=== PATIENT | female | born 1995 | race Caucasian/White ===

== ENCOUNTER → 2020-04-30 | Outpatient (CLI) | payer OTHER ==
--- NOTE | 2020-05-21 10:59 | REP ---
CHEST X-RAY CLINICAL: Cough. TECHNIQUE: PA and lateral. FINDINGS: Mediastinum and cardiac silhouette normal. Lung cruz clear. No consolidation, effusion, or pneumothorax. Skeletal structures are intact. IMPRESSION: Normal chest x-ray. No acute cardiopulmonary process or focal consolidation. MTDD
== END ==
LOC: M LAB 10:30
PROVIDERS: ATTEND Physician Assistant
DX: R05 Cough (principal)

== ENCOUNTER 2020-05-15 10:20 | Outpatient (RCR) | payer OTHER | END 2020-05-22 | LOC: M PT 10:20 | PROVIDERS: ATTEND Otolaryngology | DX: M26.609 Unspecified temporomandibular joint disorder, unspecified side (principal) ==

== ENCOUNTER 2020-06-13 11:15 | Outpatient (RCR) | payer OTHER | END 2020-06-22 | LOC: M PT 11:15 | PROVIDERS: ATTEND Otolaryngology | DX: M26.609 Unspecified temporomandibular joint disorder, unspecified side (principal) ==

== ENCOUNTER → 2020-06-27 | Outpatient (CLI) | payer OTHER ==
--- NOTE | 2020-06-27 10:56 | REP ---
INDICATION: EPIGASTRIC PAIN MAIN REG. COMPARISON: None. TECHNIQUE: Right upper quadrant sonography. FINDINGS: Scanning through the right upper quadrant of the abdomen demonstrates a normal sized, thin-walled gallbladder without evidence of stone or polyp. Common bile duct is normal measuring 0.4 cm in greatest diameter. No focal liver lesion is seen. Liver size is normal. No pancreatic abnormality is observed. No right renal abnormality is seen. There is no evidence of ascites. The right kidney measures 10.7 x 5.2 x 4.4 cm. IMPRESSION: Negative right upper quadrant sonography. <Electronically signed by Haroon Mendes > 06/27/20 [id number]
[2020-06-27 11:16] LABS: BASO # 0.1 10^3/uL (0.0-0.2); BASO % 0.4 % (0.0-1.0); EOS # 0.3 10^3/uL (0.0-0.5); EOS % 2.6 % (0.0-3.0); HEMOGLOBIN 12.2 g/dl (12.0-15.5); LYMPH # 2.3 10^3/uL (1.5-5.0); LYMPH % 19.7 % (24.0-44.0); MEAN CORPUSCULAR HEMOGLOBIN 26.3 pg (27.0-33.0); MEAN CORPUSCULAR HGB CONC 32.1 g/dl (32.0-36.5); MEAN CORPUSCULAR VOLUME 82.1 fl (80.0-96.0); MONO % 8.3 % (0.0-5.0); NEUTROPHILS % 68.7 % (36.0-66.0); PLATELET COUNT, AUTOMATED 407 10^3/uL (150-450); RED BLOOD COUNT 4.63 10^6/uL (4.00-5.40); WHITE BLOOD COUNT 11.7 10^3/uL (4.0-10.0)
[2020-06-27 11:58] LABS: ALBUMIN 3.4 GM/DL (3.2-5.2); ALT/SGPT 42 U/L (12-78); BILIRUBIN,DIRECT < 0.1 MG/DL (0.0-0.2); BILIRUBIN,TOTAL 0.3 MG/DL (0.2-1.0); BLOOD UREA NITROGEN 11 MG/DL (7-18); GLOMERULAR FILTRATION RATE > 60.0 (>60); TOTAL PROTEIN 7.3 GM/DL (6.4-8.2)
[2020-06-27 12:49] LABS: H PYLORI QUALITATIVE IgG NEGATIVE (NEGATIVE)
[2020-06-28 12:08] LABS: TISSUE TRANSGLUTAMINASE IgA <2 U/mL (0-3); UNITSIGA FOR GLIADIN IGA 5 units (0-19); UNITSIGG FOR GLIADIN IGG 3 units (0-19)
== END ==
LOC: M RAD 09:42
PROVIDERS: ATTEND Internal Medicine Gastroenterology
DX: R10.9 Unspecified abdominal pain (principal)

== ENCOUNTER 2020-07-10 10:30 | Outpatient (RCR) | payer OTHER ==
[2020-07-12] MEDS ORDERED: FAMO20TA PO (12:36)
[2020-07-12] MEDS ORDERED: METO1TAB7 PO (12:36)
[2020-07-12] MEDS ORDERED: QUET1TAB7 PO (12:36)
[2020-07-12] MEDS ORDERED: OMEP-221 PO (12:36)
[2020-07-12] MEDS ORDERED: SERT50TA29 PO (12:36)
[2020-07-12] MEDS ORDERED: DICY20TA11 PO (12:36)
[2020-07-12] MEDS ORDERED: IBUP-1114 PO (12:36)
== END 2020-07-22 ==
LOC: M PT 10:30
PROVIDERS: ATTEND Otolaryngology
DX: M26.609 Unspecified temporomandibular joint disorder, unspecified side (principal)

== ENCOUNTER → 2020-07-21 | Outpatient (CLI) | payer OTHER ==
[~2020-07-21] MED LIST: DICY20TA11 PO; FAMO20TA PO; IBUP-1114 PO; METO1TAB7 PO; OMEP-221 PO; QUET1TAB7 PO; SERT50TA29 PO
== END ==
LOC: M LABSMTC 09:40
PROVIDERS: ATTEND Anesthesiology
DX: Z01.812 Encounter for preprocedural laboratory examination (principal); Z20.828 Contact with and (suspected) exposure to other viral communicable diseases

== ENCOUNTER → 2020-07-21 | Outpatient (REF) | payer OTHER | LOC: M LAB REF 12:14 | PROVIDERS: ATTEND Internal Medicine Gastroenterology | DX: R19.4 Change in bowel habit (principal); R19.7 Diarrhea, unspecified ==

== ENCOUNTER 2020-07-25 10:00 | Outpatient (RCR) | payer OTHER | END 2020-08-22 | LOC: M PT 10:00 | PROVIDERS: ATTEND Otolaryngology | DX: M26.609 Unspecified temporomandibular joint disorder, unspecified side (principal) ==

== ENCOUNTER 2020-07-26 13:22 | Day surgery (SDC) | payer OTHER ==
[~2020-07-26] VITALS: Ht 165.1 cm; Wt 125.2 kg
[~2020-07-26 13:22] MED LIST changes: +NS 1,000 ML IV ONE
[2020-07-26] MEDS ORDERED: propofoL 200 MG/20 ML VIAL As Ordered ONE ×2 (15:13→15:19)
[2020-07-26] MEDS ORDERED: fentaNYL 100 MCG/2 ML INJECTION (J3010) As Ordered ONE (15:13)
[2020-07-26] MEDS ORDERED: LIDOCAINE 2% 100MG/5ML SDV (FOR ANES.) As Ordered ONE (15:13)
--- NOTE | 2020-07-26 15:25 | ROOR ---
Patient Name: Stephanie Saleh Procedure Date: 07/26/2020 3:09 PM Date of : 1995 Age: 25 Room: [facility] Gender: Female Note Status: Finalized Procedure: Upper GI endoscopy Indications: Epigastric abdominal pain Providers: Aba Sprague MD Referring MD: Nicol Sebastian Requesting Provider: Medicines: Monitored Anesthesia Care Complications: No immediate complications. Procedure: Pre-Anesthesia Assessment: - Prior to the procedure, a History and Physical was performed, and patient medications and allergies were reviewed. The patient is competent. The risks and benefits of the procedure and the sedation options and risks were discussed with the patient. All questions were answered and informed consent was obtained. Patient identification and proposed procedure were verified by the physician, the nurse and the anesthesiologist in the procedure room. Mental Status Examination: alert and oriented. Airway Examination: normal oropharyngeal airway and neck mobility. Respiratory Examination: clear to auscultation. CV Examination: normal. Prophylactic Antibiotics: The patient does not require prophylactic antibiotics. Prior Anticoagulants: The patient has taken no previous anticoagulant or antiplatelet agents. ASA Grade Assessment: II - A patient with mild systemic disease. After reviewing the risks and benefits, the patient was deemed in satisfactory condition to undergo the procedure. The anesthesia plan was to use monitored anesthesia care (MAC). Immediately prior to administration of medications, the patient was re-assessed for adequacy to receive sedatives. The heart rate, respiratory rate, oxygen saturations, blood pressure, adequacy of pulmonary ventilation, and response to care were monitored throughout the procedure. The physical status of the patient was re-assessed after the procedure. The Endoscope was introduced through the mouth, and advanced to the second part of duodenum. The upper GI endoscopy was accomplished without difficulty. The patient tolerated the procedure well. Findings: A small hiatal hernia was present. The Z-line was regular and was found 36 cm from the incisors. Scattered mild inflammation characterized by erythema and granularity was found in the gastric antrum. Biopsies were taken with a cold forceps for Helicobacter pylori testing. The duodenal bulb and second portion of the duodenum were normal. Biopsies for histology were taken with a cold forceps for evaluation of celiac disease. Impression: - Small hiatal hernia. - Z-line regular, 36 cm from the incisors. - Gastritis. Biopsied. - Normal duodenal bulb and second portion of the duodenum. Biopsied. Recommendation: - Patient has a contact number available for emergencies. The signs and symptoms of potential delayed complications were discussed with the patient. Return to normal activities tomorrow. Written discharge instructions were provided to the patient. - High fiber diet. - Continue present medications. - Await pathology results. - Follow an antireflux regimen. - Return to GI clinic in [facility] (address [address], [address], [place] [address]) in 4 -- 6 weeks. Please call GI clinic @ [phone] for apppointment date and time. - Return to primary care physician. Procedure Code(s): --- Professional --- 04671, Esophagogastroduodenoscopy, flexible, transoral; with biopsy, single or multiple Diagnosis Code(s): --- Professional --- K44.9, Diaphragmatic hernia without obstruction or gangrene K29.70, Gastritis, unspecified, without bleeding R10.13, Epigastric pain CPT copyright 2019 [employer]. All rights reserved. The codes documented in this report are preliminary and upon economics instructor review may be revised to meet current compliance requirements. Aba Sprague MD Aba Sprague MD 07/26/2020 3:25:09 PM Electronically signed by Aba Sprague MD Number of Addenda: 0 Note Initiated On: 07/26/2020 3:09 PM Estimated Blood Loss: Estimated blood loss: none.
[2020-07-26 15:50] VITALS: BP 124/60
== END 2020-07-26 16:05 | disposition home or self-care (01) ==
LOC: M OPP 13:22
PROVIDERS: ATTEND Internal Medicine Gastroenterology
DX: K44.9 Diaphragmatic hernia without obstruction or gangrene (principal); K29.70 Gastritis, unspecified, without bleeding; R10.13 Epigastric pain; G47.30 Sleep apnea, unspecified; Z79.899 Other long term (current) drug therapy; Z88.1 Allergy status to other antibiotic agents; Z88.8 Allergy status to other drugs, medicaments and biological substances; Z91.040 Latex allergy status; Z91.048 Other nonmedicinal substance allergy status
CPT/HCPCS: 43239; 88305; J3010

== ENCOUNTER → 2020-10-13 | Outpatient (CLI) | payer OTHER ==
[~2020-10-13] MED LIST changes: +FERR325T82 PO; -NS 1,000 ML IV ONE; +PANT40TA29 PO; +PROAAER10 INH; -QUET1TAB7 PO; +QUET25TA3 PO; +ZOLO100T PO
== END ==
LOC: M LABSMTC 10:06
PROVIDERS: ATTEND Anesthesiology
DX: Z01.818 Encounter for other preprocedural examination (principal); Z11.52 Encounter for screening for COVID-19

== ENCOUNTER 2020-10-18 09:30 | Day surgery (SDC) | payer OTHER ==
[~2020-10-18] VITALS: Ht 165.1 cm; Wt 123.8 kg
[~2020-10-18 09:30] MED LIST changes: +LIDOCAINE 2% 100MG/5ML SDV (FOR ANES.) As Ordered ONE; +NS 1,000 ML IV ONE; +propofoL 200 MG/20 ML VIAL As Ordered ONE
--- OUTSIDE RECORDS SUMMARY | 2020-10-18 09:38 | CCD | Continuity of Care Document ---
Author Author [facility] Address [address] [place] [address] Phone Support Name Relationship Address Phone Jose Kramer PRS [address] [place] [address] Polly Sen PRS [address] [place] [address] John Islas PRS [address] [place] [address] [place] [address] Pola Meadows [place] [address] Pola Meadows PRS [address] [place] [address] Hiren Perez PRS [address] [place] [address] Nathalie Pace PRS [address] [place] [address] Verónica Sheriff PRS [address] [place] [address] Tad Menendez PRS [address] [place] [address] Amara Garcia PRS Unknown Unavailable Nicol Sebastian PRS [address] [place] [address] Darnell Herbert PRS [address] [place] [address] Kiersten Schulz PRS [address] [place] [address] [place] [address] Abi Daljit PRS [address] [place] [address] Niels Valdez PRS [address] [place] [address] Dora Jainbere PRS [address] [place] [address] Barrett Sparks PRS [address] [place] [address] Dmitriy Peraza PRS [address] [place] [address] [place] [address] Sravani Balderrama PRS [address] [place] [address] Niels Edward PRS [address] [place] [address] Daniela Burnham PRS [address] [place] [address] Ramirez Lopez PRS [address] [place] [address] Luis Duggan PRS [address] [place] [address] Allergies, Adverse Reactions, Alerts Allergen Type Severity Reaction Last Updated Verified Status cephalexin Allergy Moder ate Hives September 25, 2020 2:58pm Yes Active latex Allergy Moderate Rash September 25, 2020 2:58pm Yes Active ondansetron Allergy Mode rate Hives September 25, 2020 2:58pm Yes Active sulfamethoxazole Allergy Moderate Hives September 25, 2020 2:58pm Yes Active trimethoprim Allergy Mod erate Hives September 25, 2020 2:58pm Yes Active Medications Medication Status Dose Units Route Directions Qty Days Start Date End Date Instructions Famotidine Discontinued 20 MG PO 2 Times Per Day February 20, 2020 10:57am February 20, 2020 11:34am Metoprolol Succinate Discontinued 50 MG PO daily February 20, 2020 10:58am February 20, 2020 11:34am Triamcinolone Acetonide Discontinued 1 APPLIC TOP 2 Times Per D ay February 20, 2020 10:5 9am March 25, 2020 8:10am Acetaminophen (Tylenol) 325 mg tablet Discontinued 325 MG PO Four Times a Day 60 February 20, 2020 11:24am March 25, 2020 8:08am Famotidine Discontinued 20 MG PO 2 Times Per Day February 20, 2020 11:34am February 26, 2020 4:14pm Metoprolol Succinate Discontinued 50 MG PO daily February 20, 2020 11:34am May 28, 2020 6:00am Norgestimate-Ethinyl Estradiol (Ortho Tr i-Cyclen (28)) 0.18/0.215/0.25 mg-35 mcg (28) tablet Discontinued 1 TAB PO daily March 11, 2020 11:47am April 15, 2020 9:24am Quetiapine Discontinued 25 MG PO .Q hs March 12, 2020 1:59pm June 13, 2020 12:26pm Sertraline Discontinued 50 MG PO daily March 28, 2020 7:45am April 24, 2020 2:36pm Budesonide-Formoterol Discontinued 2 PUFFS IH 2 Times Per Day March 28, 2020 7:4 6am April 24, 2020 2:36pm Promethazine Discontinued 50 MG PO Three times a day May 23, 2020 8:27am July 01, 2020 9:13pm may make s leepy Omeprazole Discontinued 20 MG PO 2 Times Per Day July 01, 2020 9:13am July 25, 2020 10:00am Sertraline Discontinued 100 MG PO At Bedtime July 04, 2020 11:41am July 04, 2020 12:44pm Quetiapine Discontinued 50 MG PO At Bedtime July 04, 2020 11:42am July 04, 2020 11:46am Quetiapine Discontinued 50 MG PO At Bedtime July 04, 2020 11:45am August 09, 2020 6:35pm Sertraline Discontinued 100 MG PO At Bedtime July 04, 2020 12:44pm July 31, 2020 9:19am Pantoprazole Active 40 MG PO daily July 25, 2020 10:02am Drospirenone-Ethinyl Estradiol (Ruma (28)) 3-0.03 mg tablet Discontinued 1 TAB PO daily August 27, 2020 10:45am September 23, 2020 6:43pm Metronidazole (Flagyl) 500 mg tablet Discontinued 500 MG PO Three times a day September 05, 2020 11:45am September 23, 2020 6:45pm Metoclopramide Hcl (Reglan) 10 mg tablet Discontinued 10 MG PO b efore meals September 05, 2020 11:52am September 23, 2020 6:43pm administer 30 minutes before meals Meclizine Discontinued 25 MG PO daily September 03, 2020 10:36am September 11, 2020 4:44pm Albuterol Sulfate Active 1 INH IH Four Times a Day 8.5 September 25, 2020 3:24pm Nitrofurantoin Monohyd/M-Cryst (Macrobid) 100 mg capsu le Discontinued 100 MG PO Every 12 Hours 14 7 March 02, 2020 1:32pm March 11 10:57am must administer with a meal/food Promethazine Discontinued 25 MG PO Three times a day March 02, 2020 1:34pm March 25, 2020 8:09am Norgestimate-Ethinyl Estradiol (Ortho Tr i-Cyclen (28)) 0.18/0.215/0.25 mg-35 mcg (28) tablet Discontinued 1 TAB PO daily May 18, 2020 1:35am June 11, 2020 3:31pm Vancomycin Discontinued 125 MG PO Every 6 hours 40 10 May 18, 2020 11:46am June 10, 2020 8:37am Lactobacillus Combination No.8 (Adult Pr obiotic) 3 billion cell capsule Discontinued 3000 MMU CE LLS PO Once Per Day 14 14 May 18, 2020 11:54am July 01, 2020 9:13pm administer with a meal Famotidine Discontinued 20 MG PO 2 Times Per Day July 01, 2020 9:08pm July 25, 2020 10:01am Dicyclomine Active 20 MG PO Once Per Day July 01, 2020 9:08pm may take 2 times daily Quetiapine Discontinued 25 MG PO At Bedtime July 01, 2020 9:11pm July 04, 2020 11:43am Sertraline Discontinued 50 MG PO At Bedtime July 01, 2020 9:11pm July 04, 2020 11:42am Hydroxyzine Hcl Discontinued 25 MG PO 2 Times Per Day August 09, 2020 6:34pm August 20, 2020 9:09am Doxylamine Succinate (Unisom (Doxylamine)) 25 mg Table t Discontinued 25 MG PO Three times a day August 09, 2020 6:34pm August 272020 10:28am Sertraline Discontinued 100 MG PO daily August 22, 2020 6:55am September 16, 2020 6:07pm Budesonide-Formoterol Discontinued 2 PUFFS IH 2 Times Per Day August 22, 2020 6:55am September 23, 2020 6:41pm Metoprolol Succinate Discontinued 50 MG PO daily August 22, 2020 6:55am September 03, 2020 11:13am Ciprofloxacin Hcl Discontinued 250 MG PO 2 Times Per Day August 30, 2020 8: 57pm September 02, 2020 4:11pm Ferrous Sulfate (Feosol) 325 mg (65 mg iron) tablet Active 325 MG PO 2 Times Per Day August 30, 2020 8:57pm Ascorbic Acid (Vitamin C) Discontinued 500 MG PO 2 Times Per Day August 30, 2020 8 :57pm September 25, 2020 3:21pm with iron Ciprofloxacin Hcl Discontinued 500 MG PO Every 12 Hours September 10, 2020 12:54am September 23, 2020 6:41pm Lactobacillus Combination No.4 Discontinue d 3000 MMU CELLS PO 2 Times Per Day September 10, 2020 12:56am September 23, 2020 6:45pm administer with a meal Sertraline Active 100 MG PO Once Per Day September 23, 2020 6:39pm Buspirone Discontinued 7 .5 MG PO 2 Times Per Day February 22, 2020 10:18am July 01, 2020 9:13pm Desogestrel-Ethinyl Estradiol (Isibloom) 0.15-0.03 mg tablet Discontinued 1 TAB PO daily February 22, 2020 10:18am March 11, 2020 11:47am Venlafaxine Discontinued 150 MG PO Every Morning February 22, 2020 10:18am March 25, 2020 8:09am Omeprazole Discontinued 20 MG PO daily February 26, 2020 4:14pm June 21, 2020 10:51am Amoxicillin-Pot Clavulanate (Augmentin) 875-125 mg tab let Discontinued 1 TAB PO 2 Times Per Day March 23, 2020 3:04pm May 172019 4:42pm Benzonatate (Tessalon Perles) 100 mg capsule Discontinued 100 MG PO Three times a day March 23, 2020 3:04pm May 17, 2020 4:42pm Miconazole Nitrate (Monistat 7) 2 % cream Discontinued 1 APPFUL PV Once Per Day 45 March 23, 2020 3:06pm May 17, 2020 4:43pm apply vaginally for discomfort Norgestimate-Ethinyl Estradiol (Ortho Tr i-Cyclen (28)) 0.18/0.215/0.25 mg-35 mcg (28) tablet Discontinued 1 TAB PO daily April 15, 2020 9:23am May 18, 2020 1:35am Budesonide-Formoterol Discontinued 2 PUFFS IH 2 Times Per Day April 24, 2020 2:35pm June 10, 2020 8:36am Sertraline Discontinued 50 MG PO daily April 24, 2020 2:35pm July 01, 2020 9:11pm Lactobacillus Combination No.9 (Adult 50 Plus Probiotic) 4 billion cell capsule Discontinued 4000 MMU CE LLS PO 2 Times Per Day May 06, 2020 12:39pm May 17, 2020 4:43pm take wit h food Metoprolol Succinate Discontinued 50 MG PO daily May 28, 2020 5:59am August 22, 2020 6:55am Drospirenone-Ethinyl Estradiol Discontinue d 1 TAB PO daily June 11, 2020 3:31pm June 28, 2020 4:13pm Quetiapine Discontinued 25 MG PO .Q hs June 13, 2020 12:26pm July 01, 2020 9:11pm Omeprazole Discontinued 20 MG PO daily June 21, 2020 10:51am July 01, 2020 9:14am Sertraline Discontinued 100 MG PO At Bedtime July 31, 2020 9:19am August 19, 2020 8:31am Budesonide-Formoterol Discontinued 2 PUFFS IH 2 Times Per Day August 06, 2020 8:13am August 06, 2020 8:27am Budesonide-Formoterol Discontinued 2 PUFFS IH 2 Times Per Day August 06, 2020 8:27am August 22, 2020 6:55am Pyridoxine (Vitamin B6) (Vitamin B-6) 25 mg tablet Discontinued 25 MG PO daily August 06, 2020 9:27am August 20, 2020 9:10am Take one tab by mouth daily. Sertraline Discontinued 100 MG PO daily August 19, 2020 8:31am August 22, 2020 6:55am Metoprolol Succinate Discontinued 50 MG PO daily September 03, 2020 11:13am September 16, 2020 6:07pm Sennosides-Docusate Sodium (Senna With D ocusate Sodium) 8.6-50 mg tablet Active 1 TAB-CAP PO daily September 11, 2020 2:13pm Sertraline Discontinued 100 MG PO daily September 16, 2020 6:06pm September 23, 2020 6:46pm Metoprolol Succinate Active 50 MG PO daily September 16, 2020 6:07pm Problems Active Problems Medical Problem Onset Date Status Daytime sleepiness Act krzysztof Rash of finger Active Insomnia Active PTSD (post-traumatic stress disorder) Active Metrorrhagia Active Morbid obesity Active Acute renal failure Ac tive Anxiety Active Depression Active Diarrhea Active Diarrhea Active Glucose intolerance Ac tive Snoring Active Elevated serum creatinine Active Anembryonic Active GERD (gastroesophageal reflux disease) Active Abdominal pain Active HTN (hypertension) Act krzysztof Nausea Active Numbness and tingling of both legs Active Hepatomegaly Active Inactive/Resolved Problems Medical Problem Onset Date Status RUQ abdominal pain Res olved UTI (urinary tract infection) Resolved Hemorrhagic cystitis R esolved C. difficile diarrhea Resolved URI (upper respiratory infection) Resolved Chronic pain of both ears Resolved Dysuria Resolved Persistent cough for 3 weeks or longer Resolved Wax in ear Resolved Acute viral pharyngitis Resolved Procedures Procedure Date Performed Status Escherichia coli Shiga Toxins EIA Fe bruary 2020 completed Salmonella/Shigella Screen September 23, 2020 completed Campylobacter Culture September 23, 2020 completed Escherichia coli 0157 Culture ua ry 2020 completed Urine Culture September 23, 2020 completed Influenza-Like Illness (PCR) uar y 2020 completed September 23, 2020 com pleted Urine Culture September 09, 2020 completed Urine Culture August 30, 2020 completed Influenza-Like Illness (PCR) Decembe r 2019 completed August 22, 2020 co mpleted Dilitation and Curettage w/Suction (Not Applicable) August 22, 2020 10:30am completed US OB Ultrasound <14 weeks August 09, 2020 8:39pm completed US OB Transvaginal August 09 8:40pm completed Urine Culture August 09, 2020 completed US OB Ultrasound <14 weeks August 14, 2020 9:16am completed US OB Ultrasound <14 weeks August 21, 2020 10:17am completed US OB Transvaginal August 21 10:17am completed US OB Transvaginal August 03 6:58pm completed US Abd single organ/quadrant Decembe r 2019 7:26pm completed US OB Ultrasound <14 weeks August 03, 2020 6:59pm completed Urine Culture August 03, 2020 completed July 30, [address] Abd/pel w/ contrast July 01, 2020 9:16pm completed Xray Chest One View July 01 9:19pm completed Blood Culture July 01, 2020 completed Urine Culture July 01, 2020 completed SARS-CoV-2 (PCR) Interpretation [facility] [address] Abd/pel w/ contrast April 7:09pm completed Urine Culture May 18, 2020 completed Respiratory Panel (PCR) May 182019 completed Gastrointestinal Tract Panel (PCR) S eptember 2019 completed Xray Chest 2 view PA/LAT March 25, 2020 8:03am completed Urine Culture March 25, 2020 completed Streptococcus Rapid Screen March 13, 2020 completed Streptococcus Rapid Screen March 13, 2020 completed Urine Culture March 11, 2020 completed US Pelvic complete March 12, 2020 12:21pm completed Urine Culture March 05, [address] Abd/pel w/ contrast March 02 12:30pm completed Urine Culture March 02, 2020 completed US Abdomen complete February 28, 2020 7:27am completed Relevant Diagnostic Tests and/or Laboratory Data Laboratory Results Test Date/Time Result Interpretation Reference Range Result Comment Performing Site White Blood Count September 23, 2020 8:05p m 10.2 10e3/uL 4.45-10.71 [facility], [address] [place] [address] White Blood Count September 09, 2020 11:50pm 10.6 10e3/uL 4.45-10.71 [facility], [address] [place] [address] White Blood Count September 05, 2020 12:03pm 10.3 10e3/uL 4.45-10.71 [facility], [address] [place] [address] White Blood Count August 30, 2020 8:15pm 11.3 10e3/uL 4.45-10.71 [facility], [address] [place] [address] White Blood Count August 09 0 7:35pm 9.9 10e3/uL 4.45-10.71 [facility], [address] [place] [address] White Blood Count August 14 0 9:31am 9.8 10e3/uL 4.45-10.71 [facility], [address] [place] [address] White Blood Count August 03 0 2:35pm 8.6 10e3/uL 4.45-10.71 [facility], [address] [place] [address] White Blood Count July 01, 2020 9:40p m 11.2 10e3/uL 4.45-10.71 [facility], [address] [place] [address] White Blood Count May 18 6:17am 9.3 10e3/uL 4.45-10.71 [facility], [address] [place] [id number] White Blood Count March 25, 2020 8:11am 10.8 10e3/uL 4.45-10.71 [facility], [address] [place] [address] White Blood Count March 11, 2020 12:14pm 11.3 10e3/uL 4.45-10.71 [facility], [address] [place] [address] White Blood Count March 02, 2020 11:00am 10.3 10e3/uL 4.45-10.71 [facility], [address] [place] [address] White Blood Count February 26, 2020 10:02am 9.8 10e3/uL 4.45-10.71 [facility], [address] [place] [address] White Blood Count February 20, 2020 8:35am 8.8 10e3/uL 4.45-10.71 [facility], [address] [place] [address] 26005 Red Blood Count September 23, 2020 8:05pm 4.67 10e6/uL 4.20-5.40 [facility], [address] [place] [address]791 Red Blood Count September 09, 2020 11:50pm 4.49 10e6/uL 4.20-5.40 [facility], [address] [place] [address] 20720 Red Blood Count September 05, 2020 12:03pm 4.38 10e6/uL 4.20-5.40 [facility], [address] [place] [address] 44069 Red Blood Count August 30, 2020 8:15pm 4.26 10e6/uL 4.20-5.40 [facility], [address] [place] [address] 19779 Red Blood Count August 09, 2020 7:35pm 4.49 10e6/uL 4.20-5.40 [facility], [address] [place] [address] 91080 Red Blood Count August 14, 2020 9:31am 4.57 10e6/uL 4.20-5.40 [facility], [address] [place] [address] 25871 Red Blood Count August 03, 2020 2:35pm 4.47 10e6/uL 4.20-5.40 [facility], [address] [place] [address] 14692 Red Blood Count July 01, 2020 9:40pm 4.51 10e6/uL 4.20-5.40 [facility], [address] [place] [address] 48727 Red Blood Count May 18, 2020 6:17a m 4.10 10e6/uL 4.20-5.40 [facility], [address] [place] [address] [id number] Red Blood Count March 25, 2020 8:11am 4.25 10e6/uL 4.20-5.40 [facility], [address] [place] [address] 88190 Red Blood Count March 11, 2020 12:14pm 4.58 10e6/uL 4.20-5.40 [facility], [address] [place] [address] [id number] Red Blood Count March 02, 2020 11:00am 4.52 10e6/uL 4.20-5.40 [facility], [address] [place] [address]19 Red Blood Count February 26, 2020 10:02am 4.84 10e6/uL 4.20-5.40 [facility], [address] [place] [address] [id number] Red Blood Count February 20, 2020 8:35am 5.02 10e6/uL 4.20-5.40 [facility], [address] [place] [address] [id number] Hemoglobin September 23, 2020 8:05pm 11.9 g/dL 10.7-15.4 [facility], [address] [place] [address] 95443 Hemoglobin September 09, 2020 11:50pm 11.4 g/dL 10.7-15.4 [facility], [address] [place] [address] 24706 Hemoglobin September 05, 2020 12:03pm 10.8 g/dL 10.7-15.4 [facility], [address] [place] [address] 33454 Hemoglobin August 30, 2020 8:15pm 10.5 g/dL 10.7-15.4 [facility], [address] [place] [address] 55795 Hemoglobin August 09, 2020 7:35pm 11.4 g/dL 10.7-15.4 [facility], [address] [place] [address] 87845 Hemoglobin August 14, 2020 9:31am 11.4 g/dL 10.7-15.4 [facility], [address] [place] [address] 07693 Hemoglobin August 03, 2020 2:35pm 11.5 g/dL 10.7-15.4 [facility], [address] [place] [address] 96505 Hemoglobin July 01, 2020 9:40pm 11.8 g/dL 10.7-15.4 [facility], [address] [place] [address] 50816 Hemoglobin May 18, 2020 6:17am 10.9 g/dL 10.7-15.4 [facility], [address] [place] [address] 58250 Hemoglobin March 25, 2020 8:11am 11.5 g/dL 10.7-15.4 [facility], [address] [place] [address] 47944 Hemoglobin March 11, 2020 12:14pm 12.4 g/dL 10.7-15.4 [facility], [address] [place] [address] 44737 Hemoglobin March 02, 2020 11:00am 12.1 g/dL 10.7-15.4 [facility], [address] [place] [address] [id number] Hemoglobin February 26, 2020 10:02am 13.0 g/dL 10.7-15.4 [facility], [address] [place] [address] 26170 Hemoglobin February 20, 2020 8:35am 13.4 g/dL 10.7-15.4 [facility], [address] [place] [address] 43854 Hematocrit September 23, 2020 8:05pm 37.8 % 37-47 [facility], [address] [place] [address] 88801 Hematocrit September 09, 2020 11:50pm 35.9 % 37-47 [facility], [address] [place] [address] 27930 Hematocrit September 05, 2020 12:03pm 34.8 % 37-47 [facility], [address] [place] [address] 33893 Hematocrit August 30, 2020 8:15pm 34.4 % 37-47 [facility], [address] [place] [address] 93335 Hematocrit August 09, 2020 7:35pm 36.1 % 37-47 [facility], [address] [place] [address] 04675 Hematocrit August 14, 2020 9:31am 36.3 % 37-47 [facility], [address] [place] [address] 10151 Hematocrit August 03, 2020 2:35pm 36.1 % 37-47 [facility], [address] [place] [address] 59572 Hematocrit July 01, 2020 9:40pm 36.6 % 37-47 [facility], [address] [place] [address] 41858 Hematocrit May 18, 2020 6:17am 34.1 % 37-47 [facility], [address] [place] [address] 44703 Hematocrit March 25, 2020 8:11am 34.7 % 37-47 [facility], [address] [place] [address] 51735 Hematocrit March 11, 2020 12:14pm 37.2 % 37-47 [facility], [address] [place] [address] 64643 Hematocrit March 02, 2020 11:00am 36.9 % 37-47 [facility], [address] [place] [address] 67689 Hematocrit February 26, 2020 10:02am 39.4 % 37-47 [facility], [address] [place] [address] 70701 Hematocrit February 20, 2020 8:35am 41.0 % 37-47 [facility], [address] [place] [address] 58698 Mean Corpuscular Volume September 8:05pm [address] [facility], [address] [place] [address] 91824 Mean Corpuscular Volume August 11:50pm 80.0 fl 80-96 [facility], [address] [place] [address] 46648 Mean Corpuscular Volume August 12:03pm 79.5 fl 80-96 [facility], [address] [place] [address] 93284 Mean Corpuscular Volume August 30, 2020 8:15pm 80.8 fl 80-[address] [place] [address] LABORATORY, [address] [place] [address] 64834 Mean Corpuscular Volume July h2019 7:35pm 80.4 fl 80-[address] [place] [address] LABORATORY, [address] [place] [address] 99351 Mean Corpuscular Volume July d2019 9:31am 79.4 fl 80-[address] [place] [address] LABORATORY, [address] [place] [address] 72144 Mean Corpuscular Volume July h2019 2:35pm 80.8 fl 80-[address] [place] [address] LABORATORY, [address] [place] [address] 00232 Mean Corpuscular Volume June 9:40pm 81.2 fl 80-[address] [place] [address] LABORATORY, [address] [place] [address] 86936 Mean Corpuscular Volume May 182019 6:17am 83.2 fl 80-96 [facility], [address] [place] [address] 09634 Mean Corpuscular Volume March 25, 2020 8:11am 81.6 fl 80-96 [facility], [address] [place] [address] 03821 Mean Corpuscular Volume March 11, 020 12:14pm 81.2 fl 80-96 [facility], [address] [place] [address] 73737 Mean Corpuscular Volume March 02, 020 11:00am 81.6 fl 80-[address] [place] [address] LABORATORY, [address] [place] [address] 37392 Mean Corpuscular Volume February 25 10:02am 81.4 fl 80-[address] [place] [address] LABORATORY, [address] [place] [address] 26225 Mean Corpuscular Volume February 19 8:35am 81.7 fl 80-96 [facility], [address] [place] [address] 32459 Mean Corpuscular Hemoglobin September 23, 2020 8:05pm 25.5 pg 27-31 [facility], [address] [place] [address] 74663 Mean Corpuscular Hemoglobin September 09, 2020 11:50pm 25.4 pg 27-31 [facility], [address] [place] [address] 44022 Mean Corpuscular Hemoglobin September 05, 2020 12:03pm 24.7 pg 27-31 [facility], [address] [place] [address] 18353 Mean Corpuscular Hemoglobin August 30, 2020 8:15pm 24.6 pg 27-31 [facility], [address] [place] [address] 91855 Mean Corpuscular Hemoglobin August 09, 2020 7:35pm 25.4 pg 27-31 [facility], [address] [place] [address] 20166 Mean Corpuscular Hemoglobin August 14, 2020 9:31am 24.9 pg 27-31 [facility], [address] [place] [address] 12955 Mean Corpuscular Hemoglobin August 03, 2020 2:35pm 25.7 pg 27-31 [facility], [address] [place] [address] 29873 Mean Corpuscular Hemoglobin July 01, 2020 9:40pm 26.2 pg 27-31 [facility], [address] [place] [address] 62801 Mean Corpuscular Hemoglobin 2019 6:17am 26.6 pg 27-31 [facility], [address] [place] [address] 24122 Mean Corpuscular Hemoglobin March 252019 8:11am 27.1 pg 27-31 [facility], [address] [place] [address] 55359 Mean Corpuscular Hemoglobin February 12:14pm 27.1 pg 27-31 [facility] [facility], [address] [place] [address] 68545 Mean Corpuscular Hemoglobin February 11:00am 26.8 pg 27-31 [facility], [address] [place] [address] 71522 Mean Corpuscular Hemoglobin February 10:02am 26.9 pg 27-31 [facility], [address] [place] [address] 78042 Mean Corpuscular Hemoglobin January 8:35am 26.7 pg 27-31 [facility], [address] [place] [address] 35742 Mean Corpuscular Hemoglobin Concent September 23, 2020 8:05pm 31.5 g/dl [address] [facility], [address] [place] [address] 32672 Mean Corpuscular Hemoglobin Concent September 09, 2020 11:50pm 31.8 g/dl [address] [facility], [address] [place] [address] 34928 Mean Corpuscular Hemoglobin Concent September 05, 2020 12:03pm 31.0 g/dl [address] [place], [place] [address], [address] [place] [address] 74191 Mean Corpuscular Hemoglobin Concent August 30, 2020 8:15pm 30.5 g/dl [address] [place] [address] LABORATORY, [address] [place] [address] 52897 Mean Corpuscular Hemoglobin Concent August 09, 2020 7:35pm 31.6 g/dl [address] [facility], [address] [place] [address] 41070 Mean Corpuscular Hemoglobin Concent August 14, 2020 9:31am 31.4 g/dl [address] [facility], [address] [place] [address] 55317 Mean Corpuscular Hemoglobin Concent August 03, 2020 2:35pm 31.9 g/dl [address] [facility], [address] [place] [address] 78181 Mean Corpuscular Hemoglobin Concent July 01, 2020 9:40pm 32.2 g/dl [address] [facility], [address] [place] [address] 21292 Mean Corpuscular Hemoglobin Concent May 18, 2020 6:17am 32.0 g/dl [address] [facility], [address] [place] [address] 10102 Mean Corpuscular Hemoglobin Concent March 25, 2020 8:11am 33.1 g/dl [address] [facility], [address] [place] [address] 48264 Mean Corpuscular Hemoglobin Concent March 11, 2020 12:14pm 33.3 g/dl [address] [facility], [address] [place] [address] 91332 Mean Corpuscular Hemoglobin Concent March 02, 2020 11:00am 32.8 g/dl [address] [place] [address] LABORATORY, [address] [place] [address] 77690 Mean Corpuscular Hemoglobin Concent February 26, 2020 10:02am 33.0 g/dl [address] [place] [address] LABORATORY, [address] [place] [address] 64979 Mean Corpuscular Hemoglobin Concent February 20, 2020 8:35am 32.7 g/dl [address] [place] [address] LABORATORY, [address] [place] [address] 27250 Red Cell Distribution Width September 23, 2020 8:05pm 16 % 11-15 [facility], [address] [place] [address] 35329 Red Cell Distribution Width September 09, 2020 11:50pm 16 % 11-15 [facility], [address] [place] [address] 37524 Red Cell Distribution Width September 05, 2020 12:03pm 16 % 11-15 [facility], [address] [place] [address] 54887 Red Cell Distribution Width August 30, 2020 8:15pm 15 % 11-15 [facility], [address] [place] [address] 72178 Red Cell Distribution Width August 09, 2020 7:35pm 14 % 11-15 [facility], [address] [place] [address] 39342 Red Cell Distribution Width August 14, 2020 9:31am 15 % 11-15 [facility], [address] [place] [address] 22069 Red Cell Distribution Width August 03, 2020 2:35pm 14 % 11-15 [facility], [address] [place] [address] 13208 Red Cell Distribution Width July 01, 2020 9:40pm 14 % 11-15 [facility], [address] [place] [address] 06833 Red Cell Distribution Width 2019 6:17am 14 % 11-15 [facility], [address] [place] [address] 94680 Red Cell Distribution Width March 252019 8:11am 15 % 11-15 [facility], [address] [place] [address] 83515 Red Cell Distribution Width February 12:14pm 15 % 11-15 [facility], [address] [place] [address] Red Cell Distribution Width February 11:00am 14 % 11-15 [facility], [address] [place] [address] Red Cell Distribution Width February 10:02am 14 % 11-15 [facility], [address] [place] [address] Red Cell Distribution Width January 8:35am 15 % 11-15 [facility], [address] [place] [address] Platelet Count September 23, 2020 8:05pm 404 10e3/ul 130-472 [facility], [address] [place] [address] Platelet Count September 09, 2020 11:50pm 392 10e3/ul 130-472 [facility], [address] [place] [address] Platelet Count September 05, 2020 12:03pm 417 10e3/ul 130-472 [facility], [address] [place] [address] 87849 Platelet Count August 30, 2020 8:15pm 422 10e3/ul 130-472 [facility], [address] [place] [address] Platelet Count August 09, 2020 7:35pm 423 10e3/ul 130-472 [facility], [address] [place] [address] Platelet Count August 14, 2020 9:31am 429 10e3/ul 130-472 [facility], [address] [place] [address] Platelet Count August 03, 2020 2:35pm 372 10e3/ul 130-472 [facility], [address] [place] [address] Platelet Count July 01, 2020 9:40pm 392 10e3/ul 130-472 [facility], [address] [place] [address] 32205 Platelet Count May 18, 2020 6:17am 332 10e3/ul 130-472 [facility], [address] [place] [address] 48565 Platelet Count March 25, 2020 8:11am 395 10e3/ul 130-472 [facility], [address] [place] [address] 93218 Platelet Count March 11, 2020 12:14pm 460 10e3/ul 130-472 [facility], [address] [place] [address] Platelet Count March 02, 2020 11:00am 410 10e3/ul 130-472 [facility], [address] [place] [address] 63908 Platelet Count February 26, 2020 10:02am 436 10e3/ul 130-472 [facility], [address] [place] [address] Platelet Count February 20, 2020 8:35am 479 10e3/ul 130-472 [facility], [address] [place] [address] 19963 Mean Platelet Volume September 23, 2 021 8:05pm 9.5 fl 9.1-13.1 [facility], [address] [place] [address] 71032 Mean Platelet Volume September 09, 2 021 11:50pm 8.6 fl 9.1-13.1 [facility], [address] [place] [address] Mean Platelet Volume September 05, 2 021 12:03pm 8.6 fl 9.1-13.1 [facility], [address] [place] [address] 23281 Mean Platelet Volume August 30 8:15pm 8.7 fl 9.1-13.1 [facility], [address] [place] [address] Mean Platelet Volume August 09, 2020 7:35pm 8.9 fl 9.1-13.1 [facility], [address] [place] [address] Mean Platelet Volume August 14, 2020 9:31am 8.9 fl 9.1-13.1 [facility], [address] [place] [address] 35357 Mean Platelet Volume August 03, 2020 2:35pm 9.0 fl 9.1-13.1 [facility], [address] [place] [address] Mean Platelet Volume July 01, 2 020 9:40pm 8.6 fl 9.1-13.1 [facility], [address] [place] [address] 22154 Mean Platelet Volume May 18, 2020 6:17am 8.6 fl 9.1-13.1 [facility], [address] [place] [address] 43748 Mean Platelet Volume March 25 0 8:11am 8.3 fl 9.1-13.1 [facility], [address] [place] [address] 53491 Mean Platelet Volume March 11, 2020 12:14pm 8.4 fl 9.1-13.1 [facility], [address] [place] [address] 22241 Mean Platelet Volume March 02, 2020 11:00am 8.6 fl 9.1-13.1 [facility], [address] [place] [address] 99639 Mean Platelet Volume February 26, 2020 10:02a m 8.7 fl 9.1-13.1 [facility], [address] [place] [address] 15014 Mean Platelet Volume February 20, 2020 8:35a m 8.7 fl 9.1-13.1 [facility], [address] [place] [address] 83577 Neutrophils (%) (Auto) September 23, 2020 8:05pm 67.0 % [address] [place] [address] LABORATORY, [address] [place] [address] 10020 Neutrophils (%) (Auto) September 09, 2020 11:50pm 66.3 % [address] [place] [address] LABORATORY, [address] [place] [address] 43420 Neutrophils (%) (Auto) September 05, 2020 12:03pm 74.5 % [address] [place] [address] LABORATORY, [address] [place] [address] 04051 Neutrophils (%) (Auto) August 30, 2020 8:15pm 69.3 % [address] [place] [address] LABORATORY, [address] [place] [address] 80354 Neutrophils (%) (Auto) July 7:35pm 71.3 % [address] [place] [address] LABORATORY, [address] [place] [address] 24309 Neutrophils (%) (Auto) July 9:31am 63.7 % [address] [place] [address] LABORATORY, [address] [place] [address] 87185 Neutrophils (%) (Auto) July 2:35pm 68.8 % [address] [place] [address] LABORATORY, [address] [place] [address] 15721 Neutrophils (%) (Auto) July 01, 2020 9:40pm 66.3 % [address] [place] [address] LABORATORY, [address] [place] [address] 48836 Neutrophils (%) (Auto) April 6:17am 66.1 % [address] [place] [address] LABORATORY, [address] [place] [address] 61578 Neutrophils (%) (Auto) March 25 8:11am 58.4 % [address] [place] [address] LABORATORY, [address] [place] [address] 76840 Neutrophils (%) (Auto) March 11 12:14pm 72.2 % [address] [place] [address] LABORATORY, [address] [place] [address] 33587 Neutrophils (%) (Auto) March 02 11:00am 65.4 % [address] [place] [address] LABORATORY, [address] [place] [address] 64654 Neutrophils (%) (Auto) February 25 0 10:02am 62.6 % [address] [place] [address] LABORATORY, [address] [place] [address] 24430 Neutrophils (%) (Auto) February 19 8:35am 62.4 % [address] [place] [address] LABORATORY, [address] [place] [address] 98399 Absolute Neutrophil September 23 8:05pm 6.8 # 1.7-7.6 [facility], [address] [place] [address] 81929 Absolute Neutrophil September 09 11:50pm 7.0 # 1.7-7.6 [facility], [address] [place] [address] 65110 Absolute Neutrophil September 05 12:03pm 7.7 # 1.7-7.6 [facility], [address] [place] [address] 92519 Absolute Neutrophil August 30 8:15pm 7.8 # 1.7-7.6 [facility], [address] [place] [address] 86469 Absolute Neutrophil August 09, 020 7:35pm 7.0 # 1.7-7.6 [facility], [address] [place] [address] 65618 Absolute Neutrophil August 14, 020 9:31am 6.2 # 1.7-7.6 [facility], [address] [place] [address] 71928 Absolute Neutrophil August 03, 2 020 2:35pm 5.9 # 1.7-7.6 [facility], [address] [place] [address] 04564 Absolute Neutrophil July 01 9:40pm 7.5 # 1.7-7.6 [facility], [address] [place] [address] 13606 Absolute Neutrophil May 18, 2020 6:17am 6.1 # 1.7-7.6 [facility], [address] [place] [address] 42834 Absolute Neutrophil March 25, 2020 8:11a m 6.3 # 1.7-7.6 [facility], [address] [place] [address] 77563 Absolute Neutrophil March 11, 2020 12:14p m 8.1 # 1.7-7.6 [facility], [address] [place] [address] 93442 Absolute Neutrophil March 02, 2020 11:00a m 6.7 # 1.7-7.6 [facility], [address] [place] [address] 11448 Absolute Neutrophil February 26, 2020 10:02am 6.1 # 1.7-7.6 [facility], [address] [place] [address] 35498 Absolute Neutrophil February 20, 2020 8:35am 5.5 # 1.7-7.6 [facility], [address] [place] [address] 30115 Lymphocytes (%) (Auto) September 23, 2020 8:05pm 23.3 % 14-46 [facility], [address] [place] [address] 26062 Lymphocytes (%) (Auto) September 09, 2020 11:50pm 23.0 % 14-46 [facility], [address] [place] [address] 52386 Lymphocytes (%) (Auto) September 05, 2020 12:03pm 17.6 % 14-46 [facility], [address] [place] [address] 52227 Lymphocytes (%) (Auto) August 30, 2020 8:15pm 20.7 % 1446 [facility], [address] [place] [address] 25918 Lymphocytes (%) (Auto) July 7:35pm 19.4 % 14-46 [facility], [address] [place] [address] 79968 Lymphocytes (%) (Auto) July 9:31am 25.9 % 14-46 [facility], [address] [place] [address] 50616 Lymphocytes (%) (Auto) July 2:35pm 20.2 % 14-46 [facility], [address] [place] [address] 70408 Lymphocytes (%) (Auto) July 01, 2020 9:40pm 21.4 % 14-46 [facility], [address] [place] [address] 33076 Lymphocytes (%) (Auto) April 6:17am 22.8 % 14-46 [facility], [address] [place] [address] 61389 Lymphocytes (%) (Auto) March 25 8:11am 30.4 % 14-46 [facility], [address] [place] [address] 95571 Lymphocytes (%) (Auto) March 11 12:14pm 19.0 % 1446 [facility], [address] [place] [address] 42317 Lymphocytes (%) (Auto) March 02 11:00am 23.6 % 14-46 [facility], [address] [place] [address] 22394 Lymphocytes (%) (Auto) February 25 10:02am 25.4 % 1446 [facility], [address] [place] [address] 85963 Lymphocytes (%) (Auto) February 19 8:35am 26.5 % 1446 [facility], [address] [place] [address] 86417 Lymphocytes # (Auto) September 23 8:05pm 2.4 # 0.6-4.6 [facility], [address] [place] [address] 21460 Lymphocytes # (Auto) September 09 11:50pm 2.4 # 0.6-4.6 [facility], [address] [place] [address] 95442 Lymphocytes # (Auto) September 05, 12:03pm 1.8 # 0.6-4.6 [facility], [address] [place] [address] 67511 Lymphocytes # (Auto) August 30 8:15pm 2.3 # 0.6-4.6 [facility], [address] [place] [address] 16623 Lymphocytes # (Auto) August 09, 2020 7:35pm 1.9 # 0.6-4.6 [facility], [address] [place] [address] 47467 Lymphocytes # (Auto) August 14, 2020 9:31am 2.5 # 0.6-4.6 [facility], [address] [place] [address] 36891 Lymphocytes # (Auto) August 03, 2020 2:35pm 1.7 # 0.6-4.6 [facility], [address] [place] [address] 08106 Lymphocytes # (Auto) July 01, 020 9:40pm 2.4 # 0.6-4.6 [facility], [address] [place] [address] 45809 Lymphocytes # (Auto) May 18, 2020 6:17am 2.1 # 0.6-4.6 [facility], [address] [place] [address] 52537 Lymphocytes # (Auto) March 25 0 8:11am 3.3 # 0.6-4.6 [facility], [address] [place] [address] 80082 Lymphocytes # (Auto) March 11, 2020 12:14pm 2.1 # 0.6-4.6 [facility], [address] [place] [address] 99469 Lymphocytes # (Auto) March 02, 2020 11:00am 2.4 # 0.6-4.6 [facility], [address] [place] [address] 00304 Lymphocytes # (Auto) February 26, 2020 10:02a m 2.5 # 0.6-4.6 [facility], [address] [place] [address] 73959 Lymphocytes # (Auto) February 20, 2020 8:35a m 2.3 # 0.6-4.6 [facility], [address] [place] [address] 58387 Monocytes (%) (Auto) September 23, 021 8:05pm 6.9 % 4-12 [facility], [address] [place] [address] 46984 Monocytes (%) (Auto) September 09, 021 11:50pm 7.1 % 4-12 [facility], [address] [place] [address] 79352 Monocytes (%) (Auto) September 05, 2 021 12:03pm 5.4 % 4-12 [facility], [address] [place] [address] 27254 Monocytes (%) (Auto) August 30 8:15pm 6.8 % 4-12 [facility], [address] [place] [address] 10981 Monocytes (%) (Auto) August 09, 2020 7:35pm 7.0 % 4-12 [facility], [address] [place] [address] 09948 Monocytes (%) (Auto) August 14, 2020 9:31am 6.9 % 4-12 [facility], [address] [place] [address] 20937 Monocytes (%) (Auto) August 03, 2020 2:35pm 8.3 % [address] LAB[facility]ORY, [address] [place] [address] 51352 Monocytes (%) (Auto) July 01 9:40pm 8.9 % [address] LAB[facility], [address] [place] [address] 50923 Monocytes (%) (Auto) May 18, 2020 6:17am 8.7 % [address] [place] [address] LABORATORY, [address] [place] [address] 35411 Monocytes (%) (Auto) March 25 0 8:11am 7.7 % [address] [place] [address] LABORATORY, [address] [place] [address] 21584 Monocytes (%) (Auto) March 11, 2020 12:14pm 5.5 % [address] [facility], [address] [place] [address] 65373 Monocytes (%) (Auto) March 02, 2020 11:00am 7.8 % [address] [place] [address] LABORATORY, [address] [place] [address] 92463 Monocytes (%) (Auto) February 26, 2020 10:02a m 8.2 % [address] [place] [address] LABORATORY, [address] [place] [address] 00291 Monocytes (%) (Auto) February 20, 2020 8:35a m 8.0 % [address] LAB[facility]ORY, [address] [place] [address] 93964 Monocytes # September 23, 2020 8:05pm 0.7 # 0.2-1.2 [facility], [address] [place] [address] 76275 Monocytes # September 09, 2020 11:50pm 0.8 # 0.2-1.2 [facility], [address] [place] [address] 85231 Monocytes # September 05, 2020 12:03pm 0.6 # 0.2-1.2 [facility], [address] [place] [address] 33989 Monocytes # August 30, 2020 8:15pm 0.8 # 0.2-1.2 [facility], [address] [place] [address] 12905 Monocytes # August 09, 2020 7:35pm 0.7 # 0.2-1.2 [facility], [address] [place] [address] 83309 Monocytes # August 14, 2020 9:31am 0.7 # 0.2-1.2 [facility], [address] [place] [address] 42658 Monocytes # August 03, 2020 2:35pm 0.7 # 0.2-1.2 [facility], [address] [place] [address] 20726 Monocytes # July 01, 2020 9:40pm 1.0 # 0.2-1.2 [facility], [address] [place] [address] 57386 Monocytes # May 18, 2020 6:17am 0.8 # 0.2-1.2 [facility], [address] [place] [address] 42306 Monocytes # March 25, 2020 8:11am 0.8 # 0.2-1.2 [facility], [address] [place] [address] 30058 Monocytes # March 11, 2020 12:14pm 0.6 # 0.2-1.2 [facility], [address] [place] [address] 11072 Monocytes # March 02, 2020 11:00am 0.8 # 0.2-1.2 [facility], [address] [place] [address] 82097 Monocytes # February 26, 2020 10:02am 0.8 # 0.2-1.2 [facility], [address] [place] [address] 45606 Monocytes # February 20, 2020 8:35am 0.7 # 0.2-1.2 [facility], [address] [place] [address] 30947 Eosinophils (%) (Auto) September 23, 2020 8:05pm 2.2 % 0-7 [facility], [address] [place] [address] 22849 Eosinophils (%) (Auto) September 09, 2020 11:50pm 2.9 % 0-7 [facility], [address] [place] [address] 41156 Eosinophils (%) (Auto) September 05, 2020 12:03pm 1.8 % 0-7 [facility], [address] [place] [address] 54763 Eosinophils (%) (Auto) August 30, 2020 8:15pm 2.4 % 0-7 [facility], [address] [place] [address] 19022 Eosinophils (%) (Auto) July 7:35pm 1.8 % 0-7 [facility], [address] [place] [address] 76346 Eosinophils (%) (Auto) July 9:31am 3.0 % 0-7 [facility], [address] [place] [address] 09029 Eosinophils (%) (Auto) July 2:35pm 2.2 % 0-7 [facility], [address] [place] [address] 97873 Eosinophils (%) (Auto) July 01, 2020 9:40pm 2.7 % 0-7 [facility], [address] [place] [address] 26895 Eosinophils (%) (Auto) April 6:17am 1.9 % 0-7 [facility], [address] [place] [address] 12243 Eosinophils (%) (Auto) March 25 8:11am 2.7 % 0-7 [facility], [address] [place] [address] 99040 Eosinophils (%) (Auto) March 11 12:14pm 2.5 % 0-7 [facility], [address] [place] [address] 86400 Eosinophils (%) (Auto) March 02 11:00am 2.4 % 0-7 [facility], [address] [place] [address] 23164 Eosinophils (%) (Auto) February 25 0 10:02am 3.1 % 0-7 [facility], [address] [place] [address] 63191 Eosinophils (%) (Auto) February 19 8:35am 2.6 % 0-7 [facility], [address] [place] [address] 09566 Absolute Eosinophils (CBC) September 23, 2020 8:05pm 0.2 # 0.0-0.5 [facility], [address] [place] [address] 00499 Absolute Eosinophils (CBC) August 232020 11:50pm 0.3 # 0.0-0.5 [facility], [address] [place] [address] Absolute Eosinophils (CBC) August 232020 12:03pm 0.2 # 0.0-0.5 [facility], [address] [place] [id number] Absolute Eosinophils (CBC) August 302020 8:15pm 0.3 # 0.0-0.5 [facility], [address] [place] [id number] Absolute Eosinophils (CBC) August 09, 2020 7:35pm 0.2 # 0.0-0.5 [facility], [address] [place] [address] Absolute Eosinophils (CBC) August 14, 2020 9:31am 0.3 # 0.0-0.5 [facility], [address] [place] [address] Absolute Eosinophils (CBC) August 03, 2020 2:35pm 0.2 # 0.0-0.5 [facility], [address] [place] [address] Absolute Eosinophils (CBC) July 01, 2020 9:40pm 0.3 # 0.0-0.5 [facility], [address] [place] [address] Absolute Eosinophils (CBC) May 18, 2020 6:17am 0.2 # 0.0-0.5 [facility], [address] [place] [address] Absolute Eosinophils (CBC) March 8:11am 0.3 # 0.0-0.5 [facility], [address] [place] [address] Absolute Eosinophils (CBC) February 12:14pm 0.3 # 0.0-0.5 [facility], [address] [place] [address] Absolute Eosinophils (CBC) February 11:00am 0.3 # 0.0-0.5 [facility], [address] [place] [address] Absolute Eosinophils (CBC) February 26, 2020 10:02am 0.3 # 0.0-0.5 [facility], [address] [place] [address] Absolute Eosinophils (CBC) January 8:35am 0.2 # 0.0-0.5 [facility], [address] [place] [id number] Basophils (%) (Auto) September 23 8:05pm 0.4 % 0.4-1.3 [facility], [address] [place] [id number] Basophils (%) (Auto) September 09 11:50pm 0.3 % 0.4-1.3 [facility], [address] [place] [address] 24468 Basophils (%) (Auto) September 05, 2 021 12:03pm 0.4 % 0.4-1.3 [facility], [address] [place] [address] 70251 Basophils (%) (Auto) August 30 8:15pm 0.4 % 0.4-1.3 [facility], [address] [place] [address] 42393 Basophils (%) (Auto) August 09, 2020 7:35pm 0.3 % 0.4-1.3 [facility], [address] [place] [address] 07737 Basophils (%) (Auto) August 14, 2020 9:31am 0.3 % 0.4-1.3 [facility], [address] [place] [address] 96150 Basophils (%) (Auto) August 03, 2020 2:35pm 0.3 % 0.4-1.3 [facility], [address] [place] [address] 88074 Basophils (%) (Auto) July 01, 020 9:40pm 0.4 % 0.4-1.3 [facility], [address] [place] [address] 16604 Basophils (%) (Auto) May 18, 2020 6:17am 0.3 % 0.4-1.3 [facility], [address] [place] [address] 28265 Basophils (%) (Auto) March 25 0 8:11am 0.5 % 0.4-1.3 [facility], [address] [place] [address] 17038 Basophils (%) (Auto) March 11, 2020 12:14pm 0.4 % 0.4-1.3 [facility], [address] [place] [address] 78919 Basophils (%) (Auto) March 02, 2020 11:00am 0.5 % 0.4-1.3 [facility], [address] [place] [address] 64442 Basophils (%) (Auto) February 26, 2020 10:02a m 0.4 % 0.4-1.3 [facility], [address] [place] [address] 55983 Basophils (%) (Auto) February 20, 2020 8:35a m 0.3 % 0.4-1.3 [facility], [address] [place] [address] 47126 Absolute Basophils (CBC) September 8:05pm 0.0 # 0.0-0.2 [facility], [address] [place] [address] 29398 Absolute Basophils (CBC) August 11:50pm 0.0 # 0.0-0.2 [facility], [address] [place] [address] 56364 Absolute Basophils (CBC) August 12:03pm 0.0 # 0.0-0.2 [facility], [address] [place] [address] 74462 Absolute Basophils (CBC) August 8:15pm 0.1 # 0.0-0.2 [facility], [address] [place] [address] 75065 Absolute Basophils (CBC) August 092019 7:35pm 0.0 # 0.0-0.2 [facility], [address] [place] [address] 20488 Absolute Basophils (CBC) August 142019 9:31am 0.0 # 0.0-0.2 [facility], [address] [place] [address] 08303 Absolute Basophils (CBC) August 032019 2:35pm 0.0 # 0.0-0.2 [facility], [address] [place] [address] 46845 Absolute Basophils (CBC) June 9:40pm 0.0 # 0.0-0.2 [facility], [address] [place] [address] 02112 Absolute Basophils (CBC) April 242019 6:17am 0.0 # 0.0-0.2 [facility], [address] [place] [address] 84424 Absolute Basophils (CBC) March 25, 2020 8:11am 0.1 # 0.0-0.2 [facility], [address] [place] [address] 72771 Absolute Basophils (CBC) March 11, 2020 12:14pm 0.0 # 0.0-0.2 [facility], [address] [place] [address] 18633 Absolute Basophils (CBC) March 02, 2020 11:00am 0.1 # 0.0-0.2 [facility], [address] [place] [address] 93900 Absolute Basophils (CBC) February 25 10:02am 0.0 # 0.0-0.2 [facility], [address] [place] [address] 99059 Absolute Basophils (CBC) February 20, 2020 8:35am 0.0 # 0.0-0.2 [facility], [address] [place] [address] 96401 Immature Granulocyte % (Auto) Februa ry 2020 8:05pm 0.2 % 0-2 [facility], [address] [place] [address] 16122 Immature Granulocyte % (Auto) Januar y 2020 11:50pm 0.4 % 0-2 [facility], [address] [place] [address] 27842 Immature Granulocyte % (Auto) Auguar y 2020 12:03pm 0.3 % 0-2 [facility], [address] [place] [address] 60451 Immature Granulocyte % (Auto) Auguar y 2020 8:15pm 0.4 % 0-2 [facility], [address] [place] [address] 62695 Immature Granulocyte % (Auto) Decemb er 2019 7:35pm 0.2 % 0-2 [facility], [address] [place] [address] 29979 Immature Granulocyte % [facility] 9[facility]31[facility] 0.2 % 0-2 [facility], [address] [place] [address] 86311 Immature Granulocyte % (Auto) [facility] 2:35pm 0.2 % 0-2 [facility], [address] [place] [address] 54188 Immature Granulocyte % (Auto) [facility] er 2019 9:40pm 0.3 % 0-2 [facility], [address] [place] [address] 03711 Immature Granulocyte % (Auto) Sept marci 2019 6:17am 0.2 % 0-2 [facility], [address] [place] [address] 34919 Immature Granulocyte % (Auto) March 25, 2020 8:11am 0.3 % 0-2 [facility], [address] [place] [address] 90780 Immature Granulocyte % (Auto) February 212019 12:14pm 0.4 % 0-2 [facility], [address] [place] [address] 93559 Immature Granulocyte % (Auto) February 202019 11:00am 0.3 % 0-2 [facility], [address] [place] [address] 52213 Immature Granulocyte % (Auto) February 252019 10:02am 0.3 % 0-2 [facility], [address] [place] [address] 05547 Immature Granulocyte % (Auto) January 232019 8:35am 0.2 % 0-2 [facility], [address] [place] [address] 11170 Absolute Immature Granulocyte (auto September 23, 2020 8:05pm 0.0 # 0-0.1 [facility], [address] [place] [address] Absolute Immature Granulocyte (auto September 09, 2020 11:50pm 0.0 # 0-0.1 [facility], [address] [place] [address] Absolute Immature Granulocyte (auto September 05, 2020 12:03pm 0.0 # 0-0.1 [facility], [address] [place] [address] 64892 Absolute Immature Granulocyte (auto August 30, 2020 8:15pm 0.0 # 0-0.1 [facility], [address] [place] [address] 89494 Absolute Immature Granulocyte (auto August 09, 2020 7:35pm 0.0 # 0-0.1 [facility], [address] [place] [address] Absolute Immature Granulocyte (auto August 14, 2020 9:31am 0.0 # 0-0.1 [facility], [address] [place] [address] 37590 Absolute Immature Granulocyte (auto August 03, 2020 2:35pm 0.0 # 0-0.1 [facility], [address] [place], [place] [id number] Absolute Immature Granulocyte (auto July 01, 2020 9:40pm 0.0 # 0-0.1 [facility], [address] [place] [address] 79150 Absolute Immature Granulocyte (auto May 18, 2020 6:17am 0.0 # 0-0.1 [facility], [address] [place] [address] 44577 Absolute Immature Granulocyte (auto March 25, 2020 8:11am 0.0 # 0-0.1 [facility], [address] [place] [address] 68883 Absolute Immature Granulocyte (auto March 11, 2020 12:14pm 0.0 # 0-0.1 [facility], [address] [place] [address] Absolute Immature Granulocyte (auto March 02, 2020 11:00am 0.0 # 0-0.1 [facility], [address] [place] [address] 17598 Absolute Immature Granulocyte (auto February 26, 2020 10:02am 0.0 # 0-0.1 [facility], [address] [place] [address] 31036 Absolute Immature Granulocyte (auto February 20, 2020 8:35am 0.0 # 0-0.1 [facility], [address] [place] [address] 79079 Add Manual Differential September 8:05pm No [facility], [address] [place] [address] 76206 Add Manual Differential August 11:50pm No [facility], [address] [place] [address] 59958 Add Manual Differential August 12:03pm No [facility], [address] [place] [address] 67604 Add Manual Differential August 30, 2020 8:15pm No [facility], [address] [place] [address] 80949 Add Manual Differential July h2019 7:35pm No [facility], [address] [place] [address] 62576 Add Manual Differential July d2019 9:31am No [facility], [address] [place] [address] 17685 Add Manual Differential July h2019 2:35pm No [facility], [address] [place] [address] 85081 Add Manual Differential June 9:40pm No [facility], [address] [place] [address] 14572 Add Manual Differential May 182019 6:17am No [facility], [address] [place] [address] 45497 Add Manual Differential March 25, 2020 8:11am No [facility], [address] [place] [address] 41796 Add Manual Differential March 11 12:14pm No [facility], [address] [place] [address] 43628 Add Manual Differential March 02 11:00am No [facility], [address] [place] [address] 84090 Add Manual Differential February 25 10:02am No [facility], [address] [place] [address] 80429 Add Manual Differential February 19 8:35am No [facility], [address] [place] [address] 48658 Differential Total Cells Counted Sep 2019 7:20pm 100 [facility], [address] [place] [address] 52551 Neutrophils (Manual) May 17, 2020 7:20pm 77 % 41-77 [facility], [address] [place] [address] 90166 Band Neutrophils May 17 0 7:20pm 3 % 0-5 [facility], [address] [place] [address] 91934 Lymphocytes (Manual) May 17, 2020 7:20pm 17 % 14-46 [facility], [address] [place] [address] 24004 Monocytes (Manual) May 17 7:20pm 3 % 4-12 [facility], [address] [place] [address] 56485 Platelet Estimate May 17 7:20pm Appears normal NORMAL [facility], [address] [place] [address] 40193 RBC Morphology 2 May 17 0 7:20pm Appears normal NORMAL [facility], [address] [place] [address] 18320 Urine Color May 18, 2020 12:15am Yellow [facility], [address] [place] [address] 37249 Urine Color February 20, 2020 8:40am Yellow [facility], [address] [place] [address] 69383 Urine Color September 23, 2020 7:46pm Yellow [facility], [address] [place] [address] 92413 Urine Color September 09, 2020 10:50pm Brown [facility], [address] [place] [address] 98424 Urine Color August 30, 2020 8:15pm [place] [facility], [address] [place] [address] 07235 Urine Color August 09, 2020 8:06pm Yellow [facility], [address] [place] [address] 00038 Urine Color August 03, 2020 2:50pm Yellow [facility], [address] [place] [address] 81995 Urine Color July 01, 2020 9:30pm Yellow [facility], [address] [place] [address] 10565 Urine Color March 25, 2020 8:05am Yellow [facility], [address] [place] [address] 16200 Urine Color March 11, 2020 11:00am Yellow [facility], [address] [place] [address] 17478 Urine Color March 05, 2020 2:29pm Yellow [facility], [address] [place] [address] 29876 Urine Color March 02, 2020 10:48am Yellow [facility], [address] [place] [address] 20714 Urine Appearance September 23, 2020 7:46pm Clear CLEAR [facility], [address] [place] [address] 90767 Urine Appearance September 09, 2020 10:50p m Cloudy [facility], [address] [place] [address] 35274 Urine Appearance August 30, 2020 8:15pm Turbid CLEAR [facility], [address] [place] [address] 77881 Urine Appearance August 09, 2020 8:06p m Clear CLEAR [facility], [address] [place] [address] 75851 Urine Appearance August 03, 2020 2:50p m Clear [facility], [address] [place] [address] 05735 Urine Appearance July 01, 2020 9:30pm Cloudy CLEAR [facility], [address] [place] [address] 15342 Urine Appearance May 18 12:15am Clear CLEAR [facility], [address] [place] [address] 25549 Urine Appearance March 25, 2020 8:05am Cloudy CLEAR [facility], [address] [place] [address] 76383 Urine Appearance March 11, 2020 11:00am Cloudy [facility], [address] [place] [address] 59167 Urine Appearance March 05, 2020 2:29pm Cloudy [facility], [address] [place] [address] 17907 Urine Appearance March 02, 2020 10:48am Cloudy CLEAR [facility], [address] [place] [address] 36009 Urine Appearance February 20, 2020 8:40am Turbid CLEAR [facility], [address] [place] [address] 16721 Urine pH September 23, 2020 7:46pm 6.0 [facility], [address] [place] [address] 08324 Urine pH September 09, 2020 10:50pm 5.5 [facility], [address] [place] [address] 14428 Urine pH August 30, 2020 8:15pm 6.5 [facility], [address] [place] [address] 84694 Urine pH August 09, 2020 8:06pm 6.5 [facility], [address] [place] [address] 92440 Urine pH August 03, 2020 2:50pm 7.5 [facility], [address] [place] [address] 47690 Urine pH July 01, 2020 9:30pm 6.0 [facility], [address] [place] [address] 90072 Urine pH May 18, 2020 12:15am 6.0 [facility], [address] [place] [address] 17652 Urine pH March 25, 2020 8:05am 5.5 [facility], [address] [place] [address] 81563 Urine pH March 11, 2020 11:00am 6.5 [facility], [address] [place] [address] 08593 Urine pH March 05, 2020 2:29pm 6.0 [facility], [address] [place] [address] 10683 Urine pH March 02, 2020 10:48am 5.5 [facility], [address] [place] [address] 43901 Urine pH February 20, 2020 8:40am 5.5 [facility], [address] [place] [address] 32697 Urine Specific [place] September 23, 2020 7:46pm 1.018 [facility], [address] [place] [address] 70373 Urine Specific [place] September 09, 2020 10:50pm 1.035 [facility], [address] [place] [address] 09244 Urine Specific [place] August 30, 2020 8:15pm 1.033 [facility], [address] [place] [address] 65476 Urine Specific [place] July 8:06pm 1.022 [facility], [address] [place] [address] 83716 Urine Specific [place] July 2:50pm 1.020 [facility], [address] [place] [address] 37978 Urine Specific [place] July 01, 2020 9:30pm 1.026 [facility], [address] [place] [address] 60778 Urine Specific [place] April 12:15am >1.045 [facility], [address] [place] [address] 64391 Urine Specific [place] March 25 8:05am 1.025 [facility], [address] [place] [address] Urine Specific [place] March 11 11:00am 1.025 [facility], [address] [place] [address] Urine Specific [place] March 05 2:29pm 1.021 [facility], [address] [place] [address] Urine Specific [place] March 02 10:48am 1.025 [facility], [address] [place] [address] Urine Specific [place] February 19 8:40am 1.023 [facility], [address] [place] [address] Urine Leukocyte Esterase April 242019 12:15am Negative NEGATIVE [facility], [address] [place] [address] Urine Leukocyte Esterase February 20, 2020 8:40am Moderate NEGATIVE [facility], [address] [place] [address] Urine Leukocyte Esterase September 7:46pm Trace NEGATIVE A Culture has been added to this specimen per established criteria [facility], [address] [place] [address] Urine Leukocyte Esterase August 10:50pm Small NEGATIVE A Culture has been added to this specimen per established criteria [facility], [address] [place] [address] Urine Leukocyte Esterase August 8:15pm Small NEGATIVE A Culture has been added to this specimen per established criteria [facility], [address] [place] [address] Urine Leukocyte Esterase August 092019 8:06pm Small NEGATIVE A Culture has been added to this specimen per established criteria [facility], [address] [place] [address] Urine Leukocyte Esterase August [id number] 2:50pm Small NEGATIVE A Culture has been added to this specimen per established criteria [facility], [address] [place] [address] Urine Leukocyte Esterase June 9:30pm Small NEGATIVE A Culture has been added to this specimen per established criteria [facility], [address] [place] [address] Urine Leukocyte Esterase March 25, 2020 8:05am Trace NEGATIVE A Culture has been added to this specimen per established criteria [facility], [address] [place] [address] Urine Leukocyte Esterase March 11, 2020 11:00am Trace NEGATIVE A Culture has been added to this specimen per established criteria [facility], [address] [place] [address] 13708 Urine Leukocyte Esterase March 05, 2020 2:29pm Trace NEGATIVE A Culture has been added to this specimen per established criteria [facility], [address] [place] [address] 55397 Urine Leukocyte Esterase March 02, 2020 10:48am Trace NEGATIVE A Culture has been added to this specimen per established criteria [facility], [address] [place] [address] 70045 Urine Nitrite May 18, 2020 12:15am Negative NEGATIVE [facility], [address] [place] [address] Urine Nitrite February 20, 2020 8:40am Negative NEGATIVE [facility], [address] [place] [address] 59406 Urine Nitrate September 23, 2020 7:46pm Negative NEGATIVE [facility], [address] [place] [address] Urine Nitrate September 09, 2020 10:50pm Positive NEGATIVE A Culture has been added to this specimen per established criteria [facility], [address] [place] [address] 03039 Urine Nitrate August 30, 2020 8:15pm Negative NEGATIVE [facility], [address] [place], [place] [id number] Urine Nitrate August 09, 2020 8:06pm Negative NEGATIVE [facility], [address] [place] [address] 65655 Urine Nitrate August 03, 2020 2:50pm Negative NEGATIVE [facility], [address] [place] [address] Urine Nitrate July 01, 2020 9:30pm Negative NEGATIVE [facility], [address] [place] [address] 43202 Urine Nitrate March 25, 2020 8:05am Negative NEGATIVE [facility], [address] [place] [address] 77873 Urine Nitrate March 11, 2020 11:00am Negative NEGATIVE [facility], [address] [place] [address] 68969 Urine Nitrate March 05, 2020 2:29pm Negative NEGATIVE [facility], [address] [place] [address] 86731 Urine Nitrate March 02, 2020 10:48am Negative NEGATIVE [facility], [address] [place] [address] 17905 Urine Protein September 23, 2020 7:46pm Negative NEGATIVE [facility], [address] [place] [address] 74898 Urine Protein September 09, 2020 10:50pm 30 mg/dl NEGATIVE [facility], [address] [place] [address] 05683 Urine Protein August 30, 2020 8:15pm 30 mg/dl NEGATIVE [facility], [address] [place] [address] 44173 Urine Protein August 09, 2020 8:06pm Negative NEGATIVE [facility], [address] [place] [address] 69748 Urine Protein August 03, 2020 2:50pm Negative NEGATIVE [facility], [address] [place] [address] 73376 Urine Protein July 01, 2020 9:30pm Trace NEGATIVE [facility], [address] [place] [address] 75813 Urine Protein May 18, 2020 12:15am Negative NEGATIVE [facility], [address] [place] [address] 41930 Urine Protein March 25, 2020 8:05am Negative NEGATIVE [facility], [address] [place] [address] 14944 Urine Protein March 11, 2020 11:00am Trace NEGATIVE [facility], [address] [place] [address] 57698 Urine Protein March 05, 2020 2:29pm Trace NEGATIVE [facility], [address] [place] [address] 52344 Urine Protein March 02, 2020 10:48am Negative NEGATIVE [facility], [address] [place] [address] 88898 Urine Protein February 20, 2020 8:40am 30 mg/dl NEGATIVE [facility], [address] [place] [address] 48962 Urine Ictotest September 09, 2020 10:50pm Negative [facility], [address] [place] [address] 71023 Urine Glucose September 23, 2020 7:46pm Negative NEGATIVE [facility], [address] [place] [address] 35878 Urine Glucose September 09, 2020 10:50pm Negative NEGATIVE [facility], [address] [place] [address] 73351 Urine Glucose August 30, 2020 8:15pm Negative NEGATIVE [facility], [address] [place] [address] 32913 Urine Glucose August 09, 2020 8:06pm Negative NEGATIVE [facility], [address] [place] [address] 85897 Urine Glucose August 03, 2020 2:50pm Negative NEGATIVE [facility], [address] [place] [address] 11518 Urine Glucose July 01, 2020 9:30pm Negative NEGATIVE [facility], [address] [place] [address] 33830 Urine Glucose May 18, 2020 12:15am Negative NEGATIVE [facility], [address] [place] [address] 11662 Urine Glucose March 25, 2020 8:05am Negative NEGATIVE [facility], [address] [place] [address] 65544 Urine Glucose March 11, 2020 11:00am Negative NEGATIVE [facility], [address] [place] [address] 90936 Urine Glucose March 05, 2020 2:29pm Negative NEGATIVE [facility], [address] [place] [address] 27161 Urine Glucose March 02, 2020 10:48am Negative NEGATIVE [facility], [address] [place] [id number] Urine Glucose February 20, 2020 8:40am Negative NEGATIVE [facility], [address] [place] [id number] Urine Ketones September 23, 2020 7:46pm Negative NEGATIVE [facility], [address] [place] [id number] Urine Ketones September 09, 2020 10:50pm Trace NEGATIVE [facility], [address] [place] [id number] Urine Ketones August 30, 2020 8:15pm Trace NEGATIVE [facility], [address] [place] [id number] Urine Ketones August 09, 2020 8:06pm Negative NEGATIVE [facility], [address] [place] [id number] Urine Ketones August 03, 2020 2:50pm Negative NEGATIVE [facility], [address] [place] [id number] Urine Ketones July 01, 2020 9:30pm Trace NEGATIVE [facility], [address] [place] [id number] Urine Ketones May 18, 2020 12:15am Negative NEGATIVE [facility], [address] [place] [address] 33879 Urine Ketones March 25, 2020 8:05am Trace NEGATIVE [facility], [address] [place] [address] 52984 Urine Ketones March 11, 2020 11:00am Trace NEGATIVE [facility], [address] [place] [address] 53611 Urine Ketones March 05, 2020 2:29pm Negative NEGATIVE [facility], [address] [place] [address] 88992 Urine Ketones March 02, 2020 10:48am Negative NEGATIVE [facility], [address] [place] [address] 03805 Urine Ketones February 20, 2020 8:40am Trace NEGATIVE [facility], [address] [place] [address] 70453 Urine Urobilinogen September 23 7:46pm 0.2 eu/dl [facility], [address] [place] [address] 01237 Urine Urobilinogen September 09 10:50pm 1 eu/dl [facility], [address] [place], [place] [id number] Urine Urobilinogen August 30, 2020 8:15p m 1 eu/dl [facility], [address] [place] [address] Urine Urobilinogen August 09 8:06pm 1 eu/dl [facility], [address] [place] [address] Urine Urobilinogen August 03 2:50pm 1 eu/dl [facility], [address] [place] [address] Urine Urobilinogen July 01 9:30pm 1 eu/dl [facility], [address] [place] [address] 43529 Urine Urobilinogen May 18 12:15am 0.2 eu/dl [facility], [address] [place] [address] Urine Urobilinogen March 25, 2020 8:05am 1 eu/dl [facility], [address] [place] [address] Urine Urobilinogen March 11, 2020 11:00am 1 eu/dl [facility], [address] [place] [address] Urine Urobilinogen March 05, 2020 2:29pm 0.2 eu/dl [facility], [address] [place] [address] Urine Urobilinogen March 02, 2020 10:48am 1 eu/dl [facility], [address] [place] [address] Urine Urobilinogen February 20, 2020 8:40am 1 eu/dl [facility], [address] [place] [address] 58931 Urine Bilirubin September 23, 2020 7:46pm Negative NEGATIVE [facility], [address] [place] [address] 73899 Urine Bilirubin September 09, 2020 10:50pm Small NEGATIVE [facility], [address] [place] [address] 77686 Urine Bilirubin August 30, 2020 8:15pm Negative NEGATIVE [facility], [address] [place] [address] 54246 Urine Bilirubin August 09, 2020 8:06pm Negative NEGATIVE [facility], [address] [place] [address] 33217 Urine Bilirubin August 03, 2020 2:50pm Negative NEGATIVE [facility], [address] [place] [address] 09966 Urine Bilirubin July 01, 2020 9:30pm Negative NEGATIVE [facility], [address] [place] [address] 18983 Urine Bilirubin May 18, 2020 12:15am Negative NEGATIVE [facility], [address] [place] [address] 44323 Urine Bilirubin March 25, 2020 8:05am Negative NEGATIVE [facility], [address] [place] [address] 31648 Urine Bilirubin March 11, 2020 11:00am Negative NEGATIVE [facility], [address] [place] [address] 86921 Urine Bilirubin March 05, 2020 2:29pm Negative NEGATIVE [facility], [address] [place] [address] 04423 Urine Bilirubin March 02, 2020 10:48am Negative NEGATIVE [facility], [address] [place] [address] 46854 Urine Bilirubin February 20, 2020 8:40am Negative NEGATIVE [facility], [address] [place] [address] 58984 Urine Blood May 18, 2020 12:15am Negative NEGATIVE [facility], [address] [place] [address] 37922 Urine Blood February 20, 2020 8:40am Large NEGATIVE [facility], [address] [place] [address] 53056 Urine Blood September 23, 2020 7:46pm Negative NEGATIVE [facility], [address] [place] [address] 01033 Urine Blood September 09, 2020 10:50pm Large NEGATIVE A Culture has been added to this specimen per established criteria [facility], [address] [place] [address] 52261 Urine Blood August 30, 2020 8:15pm Large NEGATIVE A Culture has been added to this specimen per established criteria [facility], [address] [place] [address] 88377 Urine Blood August 09, 2020 8:06pm Moderate NEGATIVE A Culture has been added to this specimen per established criteria [facility], [address] [place] [address] 72872 Urine Blood August 03, 2020 2:50pm Small NEGATIVE [facility], [address] [place] [address] Urine Blood July 01, 2020 9:30pm Moderate NEGATIVE A Culture has been added to this specimen per established criteria [facility], [address] [place] [address] 45748 Urine Blood March 25, 2020 8:05am Negative NEGATIVE [facility], [address] [place] [address] Urine Blood March 11, 2020 11:00am Negative NEGATIVE [facility], [address] [place] [address] Urine Blood March 05, 2020 2:29pm Large NEGATIVE A Culture has been added to this specimen per established criteria [facility], [address] [place] [address] Urine Blood March 02, 2020 10:48am Trace NEGATIVE [facility], [address] [place] [address] Microscopic Urinalysis Comment 2019 12:15am No [facility], [address] [place] [address] Microscopic Urinalysis Comment February 20, 2020 8:40am Microscopic added [facility], [address] [place] [address] 70936 Add Urine Microanalysis September 7:46pm Microscopic added [facility], [address] [place] [address] 42776 Add Urine Microanalysis August 10:50pm Microscopic added [facility], [address] [place], [place] [id number] Add Urine Microanalysis August 30, 2020 8:15pm Microscopic added [facility], [address] [place] [address] Add Urine Microanalysis July 8:06pm Microscopic added [facility], [address] [place] [address] Add Urine Microanalysis July 2:50pm Microscopic added [facility], [address] [place] [address] Add Urine Microanalysis June 9:30pm Microscopic added [facility], [address] [place] [address] 83247 Add Urine Microanalysis March 25, 2020 8:05am Microscopic added [facility], [address] [place] [address] Add Urine Microanalysis March 11, 020 11:00am Microscopic added [facility], [address] [place] [address] Add Urine Microanalysis March 05, 020 2:29pm Microscopic added [facility], [address] [place] [address] Add Urine Microanalysis March 02, 020 10:48am Microscopic added [facility], [address] [place] [address] 34070 Urine RBC September 09, 2020 10:50pm 3-5 /hpf [facility], [address] [place] [address] 12287 Urine RBC August 30, 2020 8:15pm 1-2 /hpf [facility], [address] [place] [address] 04795 Urine RBC August 09, 2020 8:06pm 1-2 /hpf [facility], [address] [place] [address] Urine RBC August 03, 2020 2:50pm 6-10 /hpf [facility], [address] [place] [address] Urine RBC July 01, 2020 9:30pm Occasional /hpf [facility], [address] [place] [address] 94851 Urine RBC March 05, 2020 2:29pm 3-5 /hpf [facility], [address] [place] [address] 26774 Urine RBC March 02, 2020 10:48am Occasional /hpf [facility], [address] [place] [address] Urine WBC February 20, 2020 8:40am 20-30 /hpf [facility], [address] [place] [address] 28781 Urine WBC September 23, 2020 7:46pm 1-2 /hpf [facility], [address] [place] [address] Urine WBC September 09, 2020 10:50pm 2-4 /hpf [facility], [address] [place] [address] 90216 Urine WBC August 30, 2020 8:15pm 1-2 /hpf [facility], [address] [place] [address] Urine WBC August 09, 2020 8:06pm 1-2 /hpf [facility], [address] [place] [address] Urine WBC August 03, 2020 2:50pm 20-30 /hpf [facility], [address] [place] [address] 36154 Urine WBC July 01, 2020 9:30pm Occasional /hpf [facility], [address] [place] [address] Urine WBC March 25, 2020 8:05am 3-5 /hpf [facility], [address] [place] [address] Urine WBC March 11, 2020 11:00am 3-5 /hpf [facility], [address] [place] [address] Urine WBC March 05, 2020 2:29pm Occasional /hpf [facility], [address] [place] [address] Urine WBC March 02, 2020 10:48am 3-5 /hpf [facility], [address] [place] [address] Urine Squamous Epithelial Cells Febr uary 2020 7:46pm Few /hpf [facility], [address] [place] [address] 18134 Urine Squamous Epithelial Cells Lukas krystina 2020 10:50pm Few /hpf [facility], [address] [place] [address] Urine Squamous Epithelial Cells Lukas krystina 2020 8:15pm Moderate /hpf [facility], [address] [place] [address] 22977 Urine Squamous Epithelial Cells Dece mber 2019 8:06pm Many /hpf [facility], [address] [place] [address] Urine Squamous Epithelial Cells Dece mber 2019 2:50pm Moderate /hpf [facility], [address] [place] [address] Urine Squamous Epithelial Cells Nove mber 2019 9:30pm Moderate /hpf [facility], [address] [place] [address] Urine Squamous Epithelial Cells Augu st 2019 8:05am Many /hpf [facility], [address] [place] [address] Urine Squamous Epithelial Cells March 11, 2020 11:00am Many /hpf [facility], [address] [place] [address] Urine Squamous Epithelial Cells March 05, 2020 2:29pm Many /hpf [facility], [address] [place] [address] Urine Squamous Epithelial Cells March 02, 2020 10:48am Many /hpf [facility], [address] [place] [address] Urine Squamous Epithelial Cells February 20, 2020 8:40am Many /hpf [facility], [address] [place] [address] Urine Bacteria February 20, 2020 8:40am Moderate amount NEGATIVE [facility], [address] [place] [address] Urine Bacteria September 23, 2020 7:46pm Small amount NEGATIVE [facility], [address] [place] [address] Urine Bacteria September 09, 2020 10:50pm Moderate amount NEGATIVE A Culture has been added to this specime n per established criteria [facility], [address] [place] [address] 94618 Urine Bacteria August 30, 2020 8:15pm Small amount NEGATIVE [facility], [address] [place] [address] 06408 Urine Bacteria August 09, 2020 8:06pm Small amount NEGATIVE [facility], [address] [place] [address] 95156 Urine Bacteria August 03, 2020 2:50pm Small amount NEGATIVE [facility], [address] [place] [address] 23972 Urine Bacteria July 01, 2020 9:30pm Moderate amount NEGATIVE A Culture has been added to this specime n per established criteria [facility], [address] [place] [address] 22916 Urine Bacteria March 25, 2020 8:05am Small amount NEGATIVE [facility], [address] [place] [address] 42810 Urine Bacteria March 11, 2020 11:00am Small amount NEGATIVE [facility], [address] [place] [address] 34238 Urine Bacteria March 05, 2020 2:29pm Small amount NEGATIVE [facility], [address] [place] [address] 33153 Urine Bacteria March 02, 2020 10:48am Small amount NEGATIVE [facility], [address] [place] [address] 17762 Urine Mucus August 30, 2020 8:15pm Small amount [facility], [address] [place] [address] 77467 Urine Mucus March 25, 2020 8:05am Small amount [facility], [address] [place] [address] 31739 Urine Sperm February 20, 2020 8:40am Few [facility], [address] [place] [address] 71845 Carboxyhemoglobin September 09, 2020 11:50pm 1.3 % 0-2.0 REFERENCE RANGE Non Smoker: LESS THAN 2.0% Smoker: LESS THAN 9.0% [facility], [address] [place] [address] 59883 Blood Urea Nitrogen September 23 8:05pm 10 mg/dL 05-15 [facility], [address] [place] [address] 81476 Blood Urea Nitrogen September 09 11:50pm 7 mg/dL 05-15 [facility], [address] [place] [address] 83856 Blood Urea Nitrogen September 05 12:03pm 7 mg/dL 05-15 [facility], [address] [place], [place] [id number] Blood Urea Nitrogen August 30 8:15pm 16 mg/dL 05-15 [facility], [address] [place] [address] 45298 Blood Urea Nitrogen August 09 020 7:35pm 8 mg/dL 05-15 [facility], [address] [place] [address] Blood Urea Nitrogen August 03 020 2:35pm 5 mg/dL 05-15 [facility], [address] [place] [address] Blood Urea Nitrogen July 01 9:40pm 6 mg/dL 05-15 [facility], [address] [place] [address] Blood Urea Nitrogen May 18, 2020 6:17am 7 mg/dL 05-15 [facility], [address] [place] [address] Blood Urea Nitrogen March 25, 2020 8:11a m 7 mg/dL 05-15 [facility], [address] [place] [address] Blood Urea Nitrogen March 11, 2020 12:14p m 6 mg/dL 05-15 [facility], [address] [place] [address] Blood Urea Nitrogen March 02, 2020 11:00a m 8 mg/dL 05-15 [facility], [address] [place] [address] Blood Urea Nitrogen February 26, 2020 10:02am 7 mg/dL 05-15 [facility], [address] [place] [address] 94070 Blood Urea Nitrogen February 20, 2020 8:35am 6 mg/dL 05-15 [facility], [address] [place] [address] 20921 Sodium Level September 23, 2020 8:05pm 142 mmol/L 132-146 [facility], [address] [place] [address] 30525 Sodium Level September 09, 2020 11:50pm 142 mmol/L 132-146 [facility], [address] [place] [address] 74024 Sodium Level September 05, 2020 12:03pm 140 mmol/L 132-146 [facility], [address] [place] [address] 60218 Sodium Level August 30, 2020 8:15pm 141 mmol/L 132-146 [facility], [address] [place] [address] 04233 Sodium Level August 09, 2020 7:35pm 141 mmol/L 132-146 [facility], [address] [place] [address] 62519 Sodium Level August 03, 2020 2:35pm 138 mmol/L 132-146 [facility], [address] [place] [address] 08436 Sodium Level July 01, 2020 9:40pm 141 mmol/L 132-146 [facility], [address] [place] [address] 25613 Sodium Level May 18, 2020 6:17am 143 mmol/L 132-146 [facility], [address] [place] [address] 71008 Sodium Level March 25, 2020 8:11am 137 mmol/L 132-146 [facility], [address] [place] [address] 10485 Sodium Level March 11, 2020 12:14pm 140 mmol/L 132-146 [facility], [address] [place] [address] 15866 Sodium Level March 02, 2020 11:00am 139 mmol/L 132-146 [facility], [address] [place] [address] 44617 Sodium Level February 26, 2020 10:02am 138 mmol/L 132-146 [facility], [address] [place] [address] 74992 Sodium Level February 20, 2020 8:35am 138 mmol/L 132-146 [facility], [address] [place] [address] 40987 Potassium Level September 23, 2020 8:05pm 3.9 mmol/L 3.5-5.5 [facility], [address] [place] [address] 98266 Potassium Level September 09, 2020 11:50pm 3.7 mmol/L 3.5-5.5 [facility], [address] [place] [address] 58073 Potassium Level September 05, 2020 12:03pm 3.9 mmol/L 3.5-5.5 [facility], [address] [place] [address] 23304 Potassium Level August 30, 2020 8:15pm 3.8 mmol/L 3.5-5.5 [facility], [address] [place] [address] 32805 Potassium Level August 09, 2020 7:35pm 3.9 mmol/L 3.5-5.5 [facility], [address] [place] [address] 45426 Potassium Level August 03, 2020 2:35pm 4.6 mmol/L 3.5-5.5 [facility], [address] [place] [address] 04498 Potassium Level July 01, 2020 9:40pm 3.7 mmol/L 3.5-5.5 [facility], [address] [place] [address] Potassium Level May 18, 2020 6:17a m 3.8 mmol/L 3.5-5.5 [facility], [address] [place] [address] 74038 Potassium Level March 25, 2020 8:11am 3.7 mmol/L 3.5-5.5 [facility], [address] [place] [address] 11429 Potassium Level March 11, 2020 12:14pm 4.3 mmol/L 3.5-5.5 [facility], [address] [place] [address] 14935 Potassium Level March 02, 2020 11:00am 4.1 mmol/L 3.5-5.5 [facility], [address] [place] [address] 70162 Potassium Level February 26, 2020 10:02am 4.1 mmol/L 3.5-5.5 [facility], [address] [place] [address] 48240 Potassium Level February 20, 2020 8:35am 4.1 mmol/L 3.5-5.5 [facility], [address] [place] [address] 56910 Chloride Level September 23, 2020 8:05pm 111 mmol/l 99-109 [facility], [address] [place] [address] 21232 Chloride Level September 09, 2020 11:50pm 111 mmol/l 99-109 [facility], [address] [place] [address] 25429 Chloride Level September 05, 2020 12:03pm 110 mmol/l 99-109 [facility], [address] [place] [address] 52296 Chloride Level August 30, 2020 8:15pm 109 mmol/l 99-109 [facility], [address] [place] [address] 27934 Chloride Level August 09, 2020 7:35pm 111 mmol/l 99-109 [facility], [address] [place] [address] 15908 Chloride Level August 03, 2020 2:35pm 110 mmol/l 99-109 [facility], [address] [place] [address] 32490 Chloride Level July 01, 2020 9:40pm 110 mmol/l 99-109 [facility], [address] [place] [address] 37008 Chloride Level May 18, 2020 6:17am 113 mmol/l 99-109 [facility], [address] [place] [address] 34823 Chloride Level March 25, 2020 8:11am 111 mmol/l 99-109 [facility], [address] [place] [address] 62758 Chloride Level March 11, 2020 12:14pm 111 mmol/l 99-109 [facility], [address] [place] [address] 34743 Chloride Level March 02, 2020 11:00am 111 mmol/l 99-109 [facility], [address] [place] [address] 18324 Chloride Level February 26, 2020 10:02am 107 mmol/l 99-109 [facility], [address] [place] [address] 04866 Chloride Level February 20, 2020 8:35am 108 mmol/l 99-109 [facility], [address] [place] [address] 02935 Carbon Dioxide Level September 23 021 8:05pm 24 mmol/l 20-31 [facility], [address] [place] [address] 96776 Carbon Dioxide Level September 09, 021 11:50pm 23 mmol/l 20-31 [facility], [address] [place] [address] 99579 Carbon Dioxide Level September 05, 021 12:03pm 20 mmol/l 20-31 [facility], [address] [place] [address] 02576 Carbon Dioxide Level August 30 8:15pm 24 mmol/l 20-31 [facility], [address] [place] [address] 48927 Carbon Dioxide Level August 09, 2020 7:35pm 24 mmol/l 20-31 [facility], [address] [place] [address] 54886 Carbon Dioxide Level August 03, 2020 2:35pm 21 mmol/l 20-31 [facility], [address] [place] [address] 92823 Carbon Dioxide Level July 01 020 9:40pm 22 mmol/l 20-31 [facility], [address] [place] [address] 31645 Carbon Dioxide Level May 18, 2020 6:17am 25 mmol/l 20-31 [facility], [address] [place] [address] 95277 Carbon Dioxide Level March 25 0 8:11am 21 mmol/l 20-31 [facility], [address] [place] [address] 08121 Carbon Dioxide Level March 11, 2020 12:14pm 20 mmol/l 20-31 [facility], [address] [place] [address] Carbon Dioxide Level March 02, 2020 11:00am 20 mmol/l 20-31 [facility], [address] [place] [address] Carbon Dioxide Level February 26, 2020 10:02a m 22 mmol/l 20-31 [facility], [address] [place] [address] Carbon Dioxide Level February 20, 2020 8:35a m 21 mmol/l 20-31 [facility], [address] [place] [address] 09720 Anion Gap September 23, 2020 8:05pm 11 mmol/l 8-16 [facility], [address] [place] [address] 16164 Anion Gap September 09, 2020 11:50pm 12 mmol/l 8-16 [facility], [address] [place] [address] 81313 Anion Gap September 05, 2020 12:03pm 14 mmol/l 8-16 [facility], [address] [place] [address] 18540 Anion Gap August 30, 2020 8:15pm 12 mmol/l 8-16 [facility], [address] [place] [address] 22837 Anion Gap August 09, 2020 7:35pm 10 mmol/l 8-16 [facility], [address] [place] [address] 16501 Anion Gap August 03, 2020 2:35pm 12 mmol/l 8-16 [facility], [address] [place] [address] 17639 Anion Gap July 01, 2020 9:40pm 13 mmol/l 8-16 [facility], [address] [place] [address] 87040 Anion Gap May 18, 2020 6:17am 9 mmol/l 8-16 [facility], [address] [place] [address] 81867 Anion Gap March 25, 2020 8:11am 9 mmol/l 8-16 [facility], [address] [place] [address] 08972 Anion Gap March 11, 2020 12:14pm 13 mmol/l 8-16 [facility], [address] [place] [address] 32875 Anion Gap March 02, 2020 11:00am 12 mmol/l 8-16 [facility], [address] [place] [address] 30715 Anion Gap February 26, 2020 10:02am 13 mmol/l 16 [facility], [address] [place] [address] 37295 Anion Gap February 20, 2020 8:35am 13 mmol/l -16 [facility], [address] [place] [address] 64813 Glucose Level September 23, 2020 8:05pm 82 mg/dL 74-106 [facility], [address] [place] [address] 65908 Glucose Level September 09, 2020 11:50pm 90 mg/dL 74-106 [facility], [address] [place] [address] 27340 Glucose Level September 05, 2020 12:03pm 106 mg/dL 74-106 [facility], [address] [place] [id number] Glucose Level August 30, 2020 8:15pm 90 mg/dL [address] [place] [address] [facility], [address] [place] [id number] Glucose Level August 09, 2020 7:35pm 89 mg/dL 74-106 [facility], [address] [place] [id number] Glucose Level August 03, 2020 2:35pm 87 mg/dL 74-106 [facility], [address] [place] [id number] Glucose Level July 01, 2020 9:40pm 100 mg/dL 74-106 [facility], [address] [place] [id number] Glucose Level May 18, 2020 6:17am 93 mg/dL 74-106 [facility], [address] [place] [id number] Glucose Level March 25, 2020 8:11am 93 mg/dL [address] [place] [address] [facility], [address] [place] [id number] Glucose Level March 11, 2020 12:14pm 88 mg/dL 74-106 [facility], [address] [place] [id number] Glucose Level March 02, 2020 11:00am 91 mg/dL 74-106 [facility], [address] [place] [address] 11563 Glucose Level February 26, 2020 10:02am 92 mg/dL 74-106 [facility], [address] [place] [address] 12979 Glucose Level February 20, 2020 8:35am 98 mg/dL 74-106 [facility], [address] [place] [address] 45178 Creatinine September 23, 2020 8:05pm 1.0 mg/dL 0.5-1.1 [facility], [address] [place], [place] [id number] Creatinine September 09, 2020 11:50pm 0.9 mg/dL 0.5-1.1 [facility], [address] [place] [address] Creatinine September 05, 2020 12:03pm 1.0 mg/dL 0.5-1.1 [facility], [address] [place], [place] [id number] Creatinine August 30, 2020 8:15pm 1.1 mg/dL 0.5-1.1 [facility], [address] [place] [address] Creatinine August 09, 2020 7:35pm 1.3 mg/dL 0.5-1.1 [facility], [address] [place], [place] [id number] Creatinine August 03, 2020 2:35pm 0.8 mg/dL 0.5-1.1 [facility], [address] [place] [address] Creatinine July 01, 2020 9:40pm 0.9 mg/dL 0.5-1.1 [facility], [address] [place], [place] [id number] Creatinine May 18, 2020 6:17am 0.7 mg/dL 0.5-1.1 [facility], [address] [place], [place] [id number] Creatinine March 25, 2020 8:11am 0.9 mg/dL 0.5-1.1 [facility], [address] [place], [place] [id number] Creatinine March 11, 2020 12:14pm 1.2 mg/dL 0.5-1.1 [facility], [address] [place] [address] 97802 Creatinine March 02, 2020 11:00am 1.0 mg/dL 0.5-1.1 [facility], [address] [place], [place] [id number] Creatinine February 26, 2020 10:02am 1.0 mg/dL 0.5-1.1 [facility], [address] [place] [address] Creatinine February 20, 2020 8:35am 1.1 mg/dL 0.5-1.1 [facility], [address] [place] [address] Glomerular Filtration Rate Calc Febr uary 2020 8:05pm Greater than 60 ml/min ABOVE 60 [facility], [address] [place] [address] 05958 Glomerular Filtration Rate Calc Lukas krystina 182020 11:50pm Greater than 60 ml/min ABOVE 60 [facility], [address] [place] [address] 71735 Glomerular Filtration Rate Calc Lukas krystina 2020 12:03pm Greater than 60 ml/min ABOVE 60 [facility], [address] [place] [address] Glomerular Filtration Rate Calc Lukas krystina 2020 8:15pm 60 ml/min ABOVE 60 [facility], [address] [place] [address] 97467 Glomerular Filtration Rate Calc Dece mber 2019 7:35pm 50 ml/min ABOVE 60 [facility], [address] [place] [address] 35971 Glomerular Filtration Rate Calc Dece mb2019 2:35pm Greater than 60 ml/min ABOVE 60 [facility], [address] [place] [address] 17451 Glomerular Filtration Rate Calc Nove mber 2019 9:40pm Greater than 60 ml/min ABOVE 60 [facility], [address] [place] [address] 73061 Glomerular Filtration Rate Calc Sept emb2019 6:17am Greater than 60 ml/min ABOVE 60 [facility], [address] [place] [address] 32854 Glomerular Filtration Rate Calc Aug2019 8:11am Greater than 60 ml/min ABOVE 60 [facility], [address] [place] [address] 62711 Glomerular Filtration Rate Calc March 11, 2020 12:14pm 55 ml/min ABOVE 60 [facility], [address] [place] [address] 09066 Glomerular Filtration Rate Calc March 02, 2020 11:00am Greater than 60 ml/min ABOVE 60 [facility], [address] [place] [address] 62230 Glomerular Filtration Rate Calc February 26, 2020 10:02am Greater than 60 ml/min ABOVE 60 [facility], [address] [place] [address] 69800 Glomerular Filtration Rate Calc February 20, 2020 8:35am Greater than 60 ml/min ABOVE 60 [facility], [address] [place] [address] 50501 Alanine Aminotransferase (ALT/SGPT) September 23, 2020 8:05pm 27 U/L 10-49 [facility], [address] [place] [address] 63369 Alanine Aminotransferase (ALT/SGPT) September 09, 2020 11:50pm 31 U/L 10-49 [facility], [address] [place] [address] 19112 Alanine Aminotransferase (ALT/SGPT) September 05, 2020 12:03pm 69 U/L 10-49 [facility], [address] [place] [address] 30858 Alanine Aminotransferase (ALT/SGPT) August 09, 2020 7:35pm 30 U/L 10-49 [facility], [address] [place] [address] Alanine Aminotransferase (ALT/SGPT) August 03, 2020 2:35pm 42 U/L 10-49 [facility], [address] [place] [address] 39244 Alanine Aminotransferase (ALT/SGPT) July 01, 2020 9:40pm 43 U/L 10-49 [facility], [address] [place] [address] 16939 Alanine Aminotransferase (ALT/SGPT) May 18, 2020 6:17am 52 U/L 10-49 [facility], [address] [place] [address] 08364 Alanine Aminotransferase (ALT/SGPT) March 25, 2020 8:11am 27 U/L 10-49 [facility], [address] [place] [address] 10465 Alanine Aminotransferase (ALT/SGPT) March 11, 2020 12:14pm 29 U/L 10-49 [facility], [address] [place] [address] 04664 Alanine Aminotransferase (ALT/SGPT) March 02, 2020 11:00am 29 U/L 10-49 [facility], [address] [place] [address] 96557 Alanine Aminotransferase (ALT/SGPT) February 26, 2020 10:02am 33 U/L 10-49 [facility], [address] [place] [address] 90040 Alanine Aminotransferase (ALT/SGPT) February 20, 2020 8:35am 42 U/L 10-49 [facility], [address] [place] [address] 25165 Aspartate Amino Transf (AST/SGOT) [facility] 2020 8:05pm 14 U/L 0-33 [facility], [address] [place] [address] 32387 Aspartate Amino Transf (AST/SGOT) [facility] 2020 11:50pm 12 U/L 0-33 [facility], [address] [place] [address] 43648 Aspartate Amino Transf (AST/SGOT) Ja nuary 2020 12:03pm 29 U/L 0-33 [facility], [address] [place] [address] 20759 Aspartate Amino Transf (AST/SGOT) De cember 2019 7:35pm 13 U/L 0-33 [facility], [address] [place] [address] 70211 Aspartate Amino Transf (AST/SGOT) De cember 2019 2:35pm 35 U/L 0-33 [facility], [address] [place] [address] 70741 Aspartate Amino Transf (AST/SGOT) No vember 2019 9:40pm 21 U/L 0-33 [facility], [address] [place] [address] 34645 Aspartate Amino Transf (AST/SGOT) Se ptember 2019 6:17am 27 U/L 0-33 [facility], [address] [place] [address] 87118 Aspartate Amino Transf (AST/SGOT) Au kem 2019 8:11am 15 U/L 0-33 [facility], [address] [place] [address] 97910 Aspartate Amino Transf (AST/SGOT) Ju ly 2019 12:14pm 17 U/L 0-33 [facility], [address] [place] [address] 54059 Aspartate Amino Transf (AST/SGOT) Ju ly 2019 11:00am 14 U/L 0-33 [facility], [address] [place] [address] 85057 Aspartate Amino Transf (AST/SGOT) Ju ly 2019 10:02am 17 U/L 0-33 [facility], [address] [place] [address] 40834 Aspartate Amino Transf (AST/SGOT) Ju ne 2019 8:35am 23 U/L 0-33 [facility], [address] [place] [address] 88945 Alkaline Phosphatase September 23 8:05pm 139 U/L 45-129 [facility], [address] [place] [address] 11247 Alkaline Phosphatase September 09 11:50pm 131 U/L 45-129 [facility], [address] [place] [address] 19190 Alkaline Phosphatase September 05 021 12:03pm 167 U/L 45-129 [facility], [address] [place] [address] 24172 Alkaline Phosphatase August 09, 2020 7:35pm 122 U/L 45-129 [facility], [address] [place] [address] Alkaline Phosphatase August 03, 2020 2:35pm 125 U/L 45-129 [facility], [address] [place] [address] 90055 Alkaline Phosphatase July 01 9:40pm 139 U/L 45-129 [facility], [address] [place] [address] Alkaline Phosphatase May 18, 2020 6:17am 110 U/L 45-129 [facility], [address] [place] [address] 34280 Alkaline Phosphatase March 25 8:11am 122 U/L 45-129 [facility], [address] [place] [address] 15596 Alkaline Phosphatase March 11, 2020 12:14pm 129 U/L 45-129 [facility], [address] [place] [address] 20533 Alkaline Phosphatase March 02, 2020 11:00am 136 U/L 45-129 [facility], [address] [place] [address] 40048 Alkaline Phosphatase February 26, 2020 10:02a m 147 U/L 45-129 [facility], [address] [place] [address] 46559 Alkaline Phosphatase February 20, 2020 8:35a m 149 U/L 45-129 [facility], [address] [place] [address] 53888 Amylase Level September 09, 2020 11:50pm 45 U/L 30-118 [facility], [address] [place] [address] 25473 Amylase Level August 09, 2020 7:35pm 39 U/L 30-118 [facility], [address] [place] [address] 33069 Amylase Level August 03, 2020 2:35pm 31 U/L 30-118 [facility], [address] [place] [address] 22933 Amylase Level May 17, 2020 7:20pm 39 U/L 30-118 [facility], [address] [place] [address] 89905 Amylase Level March 25, 2020 8:11am 35 U/L 30-118 [facility], [address] [place] [address] 46926 Lipase September 23, 2020 8:05pm 120 U/L 73-393 [facility], [address] [place] [address] 22623 Lipase September 09, 2020 11:50pm 116 U/L 73-393 [facility], [address] [place] [address] 90707 Lipase August 09, 2020 7:35pm 90 U/L 73-393 [facility], [address] [place] [address] 93896 Lipase August 03, 2020 2:35pm 68 U/L 73-393 [facility], [address] [place] [address] 07620 Lipase May 17, 2020 7:20pm 89 U/L 73-393 [facility], [address] [place] [address] 12188 Lipase March 25, 2020 8:11am 97 U/L 73-393 [facility], [address] [place] [address] 85028 Lipase March 11, 2020 12:14pm 128 U/L 73-393 [facility], [address] [place] [address] 16826 Calcium Level September 23, 2020 8:05pm 9.6 mg/dL 8.5-10.1 [facility], [address] [place] [address] 83990 Calcium Level September 09, 2020 11:50pm 9.6 mg/dL 8.5-10.1 [facility], [address] [place] [address] 22730 Calcium Level September 05, 2020 12:03pm 9.4 mg/dL 8.5-10.1 [facility], [address] [place] [address] 92142 Calcium Level August 30, 2020 8:15pm 9.6 mg/dL 8.5-10.1 [facility], [address] [place] [address] 78027 Calcium Level August 09, 2020 7:35pm 9.5 mg/dL 8.5-10.1 [facility], [address] [place] [address] 67545 Calcium Level August 03, 2020 2:35pm 9.1 mg/dL 8.5-10.1 [facility], [address] [place] [address] 93119 Calcium Level July 01, 2020 9:40pm 9.2 mg/dL 8.5-10.1 [facility], [address] [place] [address] 00440 Calcium Level May 18, 2020 6:17am 8.5 mg/dL 8.5-10.1 Delta: 9.6 on 05/17/20-2019Repeated by: JayeRexwayneshai 05/18/20 0824.Result Confirmation: 8.3 # mg/dL [facility], [address] [place] [address] 03744 Calcium Level March 25, 2020 8:11am 8.9 mg/dL 8.5-10.1 [facility], [address] [place] [address] 44015 Calcium Level March 11, 2020 12:14pm 8.6 mg/dL 8.5-10.1 [facility], [address] [place] [address] 35119 Calcium Level March 02, 2020 11:00am 9.0 mg/dL 8.5-10.1 [facility], [address] [place] [address] 10045 Calcium Level February 26, 2020 10:02am 9.0 mg/dL 8.5-10.1 [facility], [address] [place] [address] 42450 Calcium Level February 20, 2020 8:35am 9.4 mg/dL 8.5-10.1 [facility], [address] [place] [address] 41239 Total Bilirubin September 23, 2020 8:05pm 0.2 mg/dL 0.3-1.2 [facility], [address] [place] [address] 71890 Total Bilirubin September 09, 2020 11:50pm 0.2 mg/dL 0.3-1.2 [facility], [address] [place] [address] 11700 Total Bilirubin September 05, 2020 12:03pm 0.3 mg/dL 0.3-1.2 [facility], [address] [place] [address] 46068 Total Bilirubin August 09, 2020 7:35pm 0.3 mg/dL 0.3-1.2 [facility], [address] [place] [address] 60164 Total Bilirubin August 03, 2020 2:35pm 0.4 mg/dL 0.3-1.2 [facility], [address] [place] [address] 91754 Total Bilirubin July 01, 2020 9:40pm 0.3 mg/dL 0.3-1.2 [facility], [address] [place] [address] 34428 Total Bilirubin May 18, 2020 6:17a m 0.3 mg/dL 0.3-1.2 [facility], [address] [place] [address] 56871 Total Bilirubin March 25, 2020 8:11am 0.2 mg/dL 0.3-1.2 [facility], [address] [place] [address] 93031 Total Bilirubin March 11, 2020 12:14pm 0.2 mg/dL 0.3-1.2 [facility], [address] [place] [address] 84397 Total Bilirubin March 02, 2020 11:00am 0.4 mg/dL 0.3-1.2 [facility], [address] [place] [address] 67950 Total Bilirubin February 26, 2020 10:02am 0.3 mg/dL 0.3-1.2 [facility], [address] [place] [address] 31280 Total Bilirubin February 20, 2020 8:35am 0.3 mg/dL 0.3-1.2 [facility], [address] [place] [address] 28538 Albumin September 23, 2020 8:05pm 3.7 g/dL 3.2-4.8 [facility], [address] [place] [address] 03285 Albumin September 09, 2020 11:50pm 3.5 g/dL 3.2-4.8 [facility], [address] [place] [address] 20227 Albumin September 05, 2020 12:03pm 3.4 g/dL 3.2-4.8 [facility], [address] [place] [address] 91398 Albumin August 09, 2020 7:35pm 3.6 g/dL 3.2-4.8 [facility], [address] [place] [address] 31803 Albumin August 03, 2020 2:35pm 3.5 g/dL 3.2-4.8 [facility], [address] [place] [address] 95934 Albumin July 01, 2020 9:40pm 3.5 g/dL 3.2-4.8 [facility], [address] [place] [address] 49104 Albumin May 18, 2020 6:17am 3.0 g/dL 3.2-4.8 [facility], [address] [place] [address] 56322 Albumin March 25, 2020 8:11am 3.0 g/dL 3.2-4.8 [facility], [address] [place] [address] 20666 Albumin March 11, 2020 12:14pm 3.2 g/dL 3.2-4.8 [facility], [address] [place] [address] 21892 Albumin March 02, 2020 11:00am 3.1 g/dL 3.2-4.8 [facility], [address] [place] [address] 37276 Albumin February 26, 2020 10:02am 3.4 g/dL 3.2-4.8 [facility], [address] [place] [address] 08483 Albumin February 20, 2020 8:35am 3.5 g/dL 3.2-4.8 [facility], [address] [place] [address] Serum Total Protein September 23 8:05pm 8.6 g/dL 5.7-8.2 [facility], [address] [place] [address] Serum Total Protein September 09 11:50pm 8.2 g/dL 5.7-8.2 [facility], [address] [place] [address] Serum Total Protein September 05 12:03pm 7.8 g/dL 5.7-8.2 [facility], [address] [place] [address] Serum Total Protein August 09, 020 7:35pm 8.2 g/dL 5.7-8.2 [facility], [address] [place] [address] Serum Total Protein August 03, 020 2:35pm 8.1 g/dL 5.7-8.2 [facility], [address] [place] [address] Serum Total Protein July 01 9:40pm 8.0 g/dL 5.7-8.2 [facility], [address] [place], [place] [id number] Serum Total Protein May 18, 2020 6:17am 6.6 g/dL 5.7-8.2 [facility], [address] [place] [address] 09539 Serum Total Protein March 25, 2020 8:11a m 7.7 g/dL 5.7-8.2 [facility], [address] [place], [place] [id number] Serum Total Protein March 11, 2020 12:14p m 7.6 g/dL 5.7-8.2 [facility], [address] [place] [address] 02920 Serum Total Protein March 02, 2020 11:00a m 7.9 g/dL 5.7-8.2 [facility], [address] [place] [address] 64403 Serum Total Protein February 26, 2020 10:02am 7.6 g/dL 5.7-8.2 [facility], [address] [place] [address] 42781 Serum Total Protein February 20, 2020 8:35am 7.9 g/dL 5.7-8.2 [facility], [address] [place] [address] 17082 Lactic Acid Level July 01, 2020 9:40p m 1.0 mmol/L 0.5-2.2 [facility], [address] [place] [address] 57077 Human Chorionic Gonadotropin, Quant August 09, 2020 7:35pm 29495 mIU/mL 0-10 APPROXIMATE GESTATION AGE APRROX IMATE HCG RANGE 0-1 WEEK 0 - 50 1-2 WEEKS 40 - 300 2-3 WEEKS 100 - 1,000 3-4 WEEKS 500 - 6,000 1-2 MONTHS 5,000 - 200,000 2-3 MONTHS 10,000 - 100,000 2ND TRIMESTER 3,000 - 50,000 3RD TRIMESTER 1,000 - 50,000 [facility], [address] [place] [address] 06702 Human Chorionic Gonadotropin, Quant August 14, 2020 9:31am 41506 mIU/mL 0-10 APPROXIMATE GESTATION AGE APRROX IMATE HCG RANGE 0-1 WEEK 0 - 50 1-2 WEEKS 40 - 300 2-3 WEEKS 100 - 1,000 3-4 WEEKS 500 - 6,000 1-2 MONTHS 5,000 - 200,000 2-3 MONTHS 10,000 - 100,000 2ND TRIMESTER 3,000 - 50,000 3RD TRIMESTER 1,000 - 50,000 [facility], [address] [place] [address] 91716 Human Chorionic Gonadotropin, Quant August 03, 2020 2:35pm 99104 mIU/mL 0-10 APPROXIMATE GESTATION AGE APRROX IMATE HCG RANGE 0-1 WEEK 0 - 50 1-2 WEEKS 40 - 300 2-3 WEEKS 100 - 1,000 3-4 WEEKS 500 - 6,000 1-2 MONTHS 5,000 - 200,000 2-3 MONTHS 10,000 - 100,000 2ND TRIMESTER 3,000 - 50,000 3RD TRIMESTER 1,000 - 50,000 [facility], [address] [place] [address] 56761 Human Chorionic Gonadotropin, Quant July 01, 2020 10:10am Less than 1 mIU/mL 0-1 0 APPROXIMATE GESTATION AGE APRROX IMATE HCG RANGE 0-1 WEEK 0 - 50 1-2 WEEKS 40 - 300 2-3 WEEKS 100 - 1,000 3-4 WEEKS 500 - 6,000 1-2 MONTHS 5,000 - 200,000 2-3 MONTHS 10,000 - 100,000 2ND TRIMESTER 3,000 - 50,000 3RD TRIMESTER 1,000 - 50,000 [facility], [address] [place] [address] 25498 Thyroid Stimulating Hormone (TSH) [facility] 2019 10:02am 1.84 uIU/mL 0.35-5.50 [facility], [address] [place] [address] 35165 Thyroid Stimulating Hormone (TSH) Fe bruary 2020 11:29am 1.73 uIU/mL 0.35-5.50 [facility], [address] [place] [address] 13724 Serum Test, Qualitative Fe bruary 2020 8:05pm Negative NEGATIVE [facility], [address] [place] [address] 70095 Serum Test, Qualitative Ja nuary 2020 11:50pm Negative NEGATIVE [facility], [address] [place] [address] 40544 Serum Test, Qualitative De cember 2019 2:35pm Positive NEGATIVE [facility], [address] [place] [address] 94972 Serum Test, Qualitative No vember 2019 9:40pm Negative NEGATIVE [facility], [address] [place] [address] 16838 Serum Test, Qualitative Se ptember 2019 7:20pm Negative NEGATIVE [facility], [address] [place] [address] 40001 Serum Test, Qualitative Au kem 2019 8:11am Negative NEGATIVE [facility], [address] [place] [address] 09964 Urine HCG, Qualitative March 11 11:00am Negative NEGATIVE [facility], [address] [place] [address] 05890 Urine HCG, Qualitative March 02 11:00am Negative NEGATIVE [facility], [address] [facility] [address] Urine HCG, Qualitative February 19 8:32am Negative NEGATIVE [facility], [address] [facility] [address] Stool C. Difficile GDH Antigen Febru krystina 2020 7:55pm See note CLOSTRIDIUM DIFFICILE TOXIN/GDH W/REFL TO PCR Micro Number: [id number] Test Status: Final Specimen Source: STOOL Specimen Quality: Adequate GDH Antigen: Not Detected Toxin A and B: Not Detected COMMENT: No toxigenic C. difficile detected For additional information, please refer to http://education.[employer]/faq/VPM283 (This link is being provided for informational/educational purposes only.)THIS TEST WAS PERFORMED AT:[facility] [id number] MERATI,MD [employer] Stool Clos difficile Toxin B Assay F ebruary 2020 7:55pm Not Reported [facility] Coronavirus (COVID-19)(PCR) March 252019 2:30pm Not detected Not Detec dee This test was developed and its performa nce characteristicsdetermined by [employer]. This test has not beenFDA cleared or approved. This test has been authorized byFDA under an Emergency Use Authorization (EUA). This testis only authorized for the duration of time the declarationthat circumstances exist justifying the authorization ofthe emergency use of in vitro diagnostic tests fordetection of SARS-CoV-2 virus and/or diagnosis of COVID- 19infection under section 564(b)(1) of the Act, 21 U.S.C.360bbb-3(b)(1), unless the authorization is terminated orrevoked sooner. When diagnostic testing is negative, thepossibility of a false negative result should be consideredin the context of a patient's recent exposures and thepresence of clinical signs and symptoms consistent withCOVID-19. An individual without symptoms of COVID-19 andwho is not shedding SARS-CoV-2 virus would expect to have anegative (not detected) result in this assay.Performed at: [address] [id number] Director: Deisy Hdez MD, Phone: [phone] [facility] , [address] [place] [facility] [id number] Urine Random Creatinine February 27 7:19am 234.0 mg/dL THERE IS NO ESTABLISHED RANGE FOR RANDOM URINE CREATININE [facility], [address] [place] [address] Urine Microalbumin February 28, 2020 7:19am 13.7 mg/L 0.0-29.9 [facility], [address] [place] [address] Urine Microalbumin/Creatinine Ratio February 28, 2020 7:19am 5.8 ug/mg 0.0-30.0 [facility], [address] [place] [address] Hemoglobin A1c September 27, 2020 11:29am 5.1 % 3.8-5.6 The following ranges may be used for interpretation of results: HGBA1C degree of glucose control: Greater than 8%: Action Suggested * Less than 7%: Goal of Diabetic Therapy Less than 5.6%: Normal Factors such as duration of diabetes, adherence to therapyand the age of the patient should also be considered inassessing the degree of blood glucose control. * High risk of developing care home complications such asretinopathy, nephropathy, neuropathy, cardiopathy, etc. Some danger of hypoglycemic reaction in Type I diabetics.Some glucose intolerant individuals and "Sub Clinical"diabetics may demonstrate HGBA1C levels in this area. [facility], [address] [place] [address] Hemoglobin A1c February 26, 2020 10:02am 5.3 % 4.0-6.0 Th e following ranges may be used for interpretation of results: HGBA1C degree of glucose control: Greater than 8%: Action Suggested * Less than 7%: Goal of Diabetic Therapy Less than 6%: Normal Factors such as duration of diabetes, adherence to therapyand the age of the patient should also be considered inassessing the degree of blood glucose control. * High risk of developing long term care social worker complications such asretinopathy, nephropathy, neuropathy, cardiopathy, etc. Some danger of hypoglycemic reaction in Type I diabetics.Some glucose intolerant individuals and "Sub Clinical"diabetics may demonstrate HGBA1C levels in this area. [facility], [address] [place] [address] Estimated Average Glucose (eAG) February 26, 2020 10:02am 105 mg/dl An A1C of 7% - the goal of diabetic therapy - is equivalentto an EAG of 154 mg/dl. [facility], [address] [place] [address] Estimated Average Glucose (eAG) [facility] 2020 11:29am 100 mg/dl An A1C of 7% - the goal of diabetic ther apy - is equivalentto an EAG of 154 mg/dl. [facility], [address] [place] [address] Microbiology Results Procedure Source Result Collection Date/Time Result Date/Time Result Comment Performing Site Urine Culture Urine,voided September 23, 2020 7:46pm September 252020 6:28am [facility], [address] [place] [address] Urine Culture Urine,voided September 09, 2020 10:50pm August 242020 8:14am [facility], [address] [place] [address] Urine Culture Urine,voided August 30, 2020 8:15pm August 2:09pm [facility], [address] [place] [address] Urine Culture Urine,voided August 09, 2020 8:06pm August 11, 2020 7:16am [facility], [address] [place] [address] Urine Culture Urine,clean catch August 03, 2020 2:50pm August 04, 2020 11:45am [facility], [address] [place] [address] Urine Culture Urine,voided July 01, 2020 9:30pm June 232019 7:24am [facility], [address] [place] [address] Urine Culture Urine,voided May 18, 2020 1:15am Septembe 2019 11:25am [facility], [address] [place] [address] Urine Culture Urine,clean catch March 25, 2020 9:05am March 26, 2020 1:36pm [facility], [address] [place] [address]95 Urine Culture Urine,clean catch March 11, 2020 12:00pm March 12, 1:24pm [facility], [address] [place] [address] Urine Culture Urine,voided March 05, 2020 3:29pm March 06, 20 20 9:18am [facility], [address] [place] [address]696 Urine Culture Urine,voided March 02, 2020 11:48am March 03, 020 8:26am [facility], [address] [place] [address] Streptococcus Rapid Screen Throat March 13, 2020 10:34am March 14, 020 8:58am [facility], [address] [place] [address] Streptococcus Rapid Screen Throat March 13, 2020 10:34am March 13, 2 020 11:04am [facility], [address] [place] [address]395 Blood Culture Venous blood No growth. July 01, 2020 9:40pm June 232019 9:46pm [facility], [address] [place] [address] SARS-CoV-2 (PCR) Interpretation Naso pharyngeal No Organisms Detected July 01, 2020 9:45pm July 01, 2020 10:29pm [facility], [address] [place] [address]68 Nasal BinaxNow Covid - 19 Ag Negative July 30, 2020 9:45am July 302019 11:56am [facility], [address] [place] [address] 10508 Escherichia coli Shiga Toxins EIA Stool September 23, 2020 7:55pm September 302020 2:41pm [facility] Salmonella/Shigella Screen Stool September 23, 2020 7:55pm September 302020 2:41pm [facility] Campylobacter Culture Stool September 23, 2020 7:55pm September 302020 2:41pm [facility] Escherichia coli 0157 Culture Stool September 23, 2020 7:55pm September 302020 2:41pm [facility] Influenza-Like Illness (PCR) Nasopharyngea l Sars-Cov-2 Not Detected September 23, 2020 7:49pm September 23, 2020 9:05pm [facility], [address] [place] [address] Nasopharyngeal Influen za A Not Detected September 23, 2020 7:49pm September 232020 9:05pm [facility], [address] [place] [address] Nasopharyngeal Influen za B Not Detected September 23, 2020 7:49pm September 232020 9:05pm [facility], [address] [place] [address] Nasopharyngeal September 23, 2020 7:49pm September 23, 2020 9:05pm [facility], [address] [place] [address] Influenza-Like Illness (PCR) Nasopharyngea l No Organisms Detected August 22, 2020 6:22am August 22, 2020 7:41am [facility], [address] [place] [address] Nasopharyngeal August 22, 2020 6:22am August 22, 2020 7:41am [facility], [address] [place] [address]93 Gastrointestinal Tract Panel (PCR) Stool C. difficile toxin detected May 17, 2020 3:03pm May 17, 2020 5:25pm [facility], [address] [place] [address] Respiratory Panel (PCR) Nasopharyngeal No Organisms Detected May 18, 2020 1:40am May 18, 2020 2:49am [facility], [address] [place] [address] Diagnostic Imaging Reports Report Dictated Date/Time Dictated By Status Radiology Report February 28, 2020 9:48am Oliverio Chen MD completed [place] [address] [facility] [place] [address] [phone] NAME SEX PT STATUS ACCOUNT NUMBER ANNA MARIE BELTRAN REG REF [id number] ORDERING PHYSICIAN LOCATION MEDICAL RECORD NO. Jose Kramer DO [id number] ATTENDING PHYSICIAN DATE OF DATE OF EXAM/TIME Jose Kramer DO 1995 02/28/20826 TYPE / EXAM US Abdomen complete REASON FOR EXAM hepatomegaly TECHNIQUE: Transabdominal transducer was used to obtain multiple real-time axial and sagittal grayscale and color-flow Doppler images of the abdomen. COMPARISON US: None available. FINDINGS: PANCREAS: The pancreatic head and body is normal in appearance. The pancreatic tail is not well-visualized secondary to overlying bowel gas. LIVER: The liver is difficult to image. It is likely heterogeneous in echotexture.. The hepatic contour is smooth, without nodularity. There are no hepatic cysts or masses. The liver is at the upper limits for normal in size, measuring approximately 16.6 cm. GALLBLADDER: Surgically absent. The common duct is normal in size measuring 5.7 mm. RIGHT KIDNEY: The right kidney measures 9.7 cm in length, and is normal in echotexture. There are no renal cysts, masses, or shadowing calculi. There is no sonographic evidence of hydronephrosis. LEFT KIDNEY: The left kidney measures 8.9 cm in length, and is normal in echotexture. There are no renal cysts, masses, or shadowing calculi. There is no sonographic evidence of hydronephrosis. SPLEEN: The spleen measures 11.5 cm in length, and is normal in echogenicity and echotexture. There are no abnormalities of the splenic parenchyma. VASCULATURE: The visualized portions of the inferior vena cava and aorta are unremarkable. PERITONEUM: There is no ascites. IMPRESSION: 1. Overall, technically difficult study owing to patient body habitus. 2. Liver at the upper limits for normal in size. Likely heterogeneous in echotexture. No focal liver lesion. No intrahepatic biliary ductal dilatation. 3. No dilatation of the common bile duct. 4. No renal calculus or hydronephrosis seen on either side. 5. No free intraperitoneal fluid. Reported By Oliverio Chen MD on 02/28/20 0948 Signed By Oliverio Chen MD on 02/28/20 0952 Date Time CC: Jose Kramer DO; Oliverio Chen MD Techn: BUSMI Trans Dt/Tm: Trans by: DT Prt Dt/Tm: : Total DLP = 0.00 mGy-cm : Total Radiation Dose = 0.0000 mSv Lifetime Dose: 0 mSv Radiology Report March 02, 2020 1:53pm Warren Bourne MD completed [facility] [address] [facility] [address] [phone] NAME SEX PT STATUS ACCOUNT NUMBER ANNA MARIE BELTRAN [facility] [id number] ORDERING PHYSICIAN LOCATION MEDICAL RECORD NO. Sameer Islas MD ER [id number] ATTENDING PHYSICIAN DATE OF DATE OF EXAM/TIME Jose Kramer DO 1994 03/02/201329 TYPE / EXAM CT Abd/pel w/ contrast REASON FOR EXAM generalized abd pain Clinical History/Indication for Exam: generalized abd pain, epigastric pain x1 day. CT ABDOMEN AND PELVIS WITH INTRAVENOUS CONTRAST INDICATION: generalized abd pain, epigastric pain x1 day. TECHNIQUE: Axial computed tomography images of the abdomen and pelvis with intravenous contrast. Sagittal and coronal reformatted images were created and reviewed. This CT exam was performed using one or more of the following dose reduction techniques: automated exposure control, adjustment of the mA and/or kV according to patient size, and/or use of iterative reconstruction technique. COMPARISON: No relevant prior studies available. FINDINGS: Lung bases: Clear. Heart: Normal in size. ABDOMEN: Liver: Unremarkable. Gallbladder and bile ducts: Status post cholecystectomy. Pancreas: Unremarkable. No pancreatic ductal dilatation. Spleen: Unremarkable. Adrenals: Unremarkable. Kidneys and ureters: Normal in size. No nephrolithiasis. No ureterolithiasis. No hydronephrosis. Stomach and bowel: No dilation. No wall thickening. PELVIS: Appendix: Within normal limits. Bladder: Unremarkable. ABDOMEN and PELVIS: Intraperitoneal space: No pneumoperitoneum. No fluid collection. Bones/joints: Intact. Vasculature: Abdominal aorta is normal in course and caliber. IVC is normal in course and caliber. Lymph nodes: No lymphadenopathy by size criteria. IMPRESSION: No acute abnormality identified in the abdomen or pelvis. Automatic exposure control was used as a dose lowering technique. Radiation Dose: CTDI is 22.93 mGy. DLP is 1121.2 mGy-cm. Contrast Type: isovue 300. Contrast Volume: 100cc REPORT SIGNATURE ON FILE 03/02/2020 (13:53 Eastern Time ) Signed by: Warren Bourne MD, PhD. Reported By Warren Bourne MD on 03/02/20 1353 Signed By Warren Bourne MD on 03/02/20 1353 Date Time CC: Jose Kramer DO; Warren Bourne MD Techn: MARCIN Trans Dt/Tm: Trans by: LUPIS Prt Dt/Tm: : Total DLP = 1121.00 mGy-cm : Total Radiation Dose = 16.8150 mSv Lifetime Dose: 16.8150 mS v Radiology Report March 12, 2020 2:59pm Oliverio Chen MD completed [facility] [address] [place] [address] [phone] NAME SEX PT STATUS ACCOUNT NUMBER ANNA MARIE BELTRAN REG REF [id number] ORDERING PHYSICIAN LOCATION MEDICAL RECORD NO. Pola Meadows MD [id number] ATTENDING PHYSICIAN DATE OF DATE OF EXAM/TIME Jose Kramer DO 1994 03/12/201320 TYPE / EXAM US Pelvic complete REASON FOR EXAM Abdominal Pain COMPARISON: None FINDINGS: The patient declined endovaginal imaging. The uterus is normal in size and echogenicity. There is no evidence of lobulation or contour abnormality. The adnexa reveal no evidence of mass, cysts, or other abnormality. No fluid is seen in the cul-de-sac. The uterus measures 8.8 x 3.7 x 4.5cm. The endometrium measures up to 4.3mm AP dimension. The right ovary measures 2.6 x 1.5 x 3.0cm. The left ovary measures 3.3 x 1.3 x 2.0cm. Both ovaries demonstrate normal spectral waveforms. The bladder is unremarkable. IMPRESSION: Somewhat suboptimal study owing to lack of endovaginal imaging. 1. Grossly normal-appearing uterus and endometrial stripe. 2. No free pelvic fluid. 3. Grossly normal-appearing ovaries, bilaterally. Normal spectral waveforms. Reported By Oliverio Chen MD on 03/12/20 1459 Signed By Oliverio Chen MD on 03/12/20 1501 Date Time CC: Jose Kramer DO; Oliverio Chen MD Techn: FREST Trans Dt/Tm: Trans by: DT Prt Dt/Tm: : Total DLP = 0.00 mGy-cm : Total Radiation Dose = 0.0000 mSv Lifetime Dose: 16.8150 mSv Radiology Report March 25, 2020 10:18am Oliverio Chen MD completed [place] [address] [place] [address] [phone] NAME SEX PT STATUS ACCOUNT NUMBER ANNA MARIE BELTRAN REG ER [id number] ORDERING PHYSICIAN LOCATION MEDICAL RECORD NO. Hiren Perez MD ER [id number] ATTENDING PHYSICIAN DATE OF DATE OF EXAM/TIME Trice Aj NP 1994 03/25/20902 TYPE / EXAM Xray Chest 2 view PA/LAT REASON FOR EXAM cough COMPARISON: None FINDINGS: The cardiac and mediastinal silhouettes appear normal and the lungs are clear. The bones and soft tissues are normal. The upper abdomen is unremarkable. IMPRESSION: No acute cardiopulmonary disease. Reported By Oliverio Chen MD on 03/25/20 1018 Signed By Oliverio Chen MD on 03/25/20 1019 Date Time CC: Trice Aj; Oliverio Chen MD Techn: RADTC Trans Dt/Tm: Trans by: DT Prt Dt/Tm: [id number]: Total DLP = 0.00 mGy-cm Fluoroscopy Time (in secs): Radiology Report May 17 9:41pm Ulisses Sethi MD completed [place] [address] [place] [address] [phone] NAME SEX PT STATUS ACCOUNT NUMBER ANNA MARIE BELTRAN REG ER [id number] ORDERING PHYSICIAN LOCATION MEDICAL RECORD NO. Mikhail Sheriff MD ER [id number] ATTENDING PHYSICIAN DATE OF DATE OF EXAM/TIME Trice Aj NP 1994 05/17/202008 TYPE / EXAM CT Abd/pel w/ contrast REASON FOR EXAM upper abd pain radiating into back& RLQ Clinical History/Indication for Exam: upper abd pain radiating into back RLQ, Positive for C-diff CT ABDOMEN AND PELVIS WITH INTRAVENOUS CONTRAST INDICATION: upper abd pain radiating into back RLQ, Positive for C-diff TECHNIQUE: Axial computed tomography images of the abdomen and pelvis with intravenous contrast. Sagittal and coronal reformatted images were created and reviewed. This CT exam was performed using one or more of the following dose reduction techniques: automated exposure control, adjustment of the mA and/or kV according to patient size, and/or use of iterative reconstruction technique. COMPARISON: March 02, 2020 FINDINGS: Lung bases: Unremarkable. No mass. No consolidation. ABDOMEN: Liver: Unremarkable. No mass. Gallbladder and bile ducts: Patient status post cholecystectomy. No ductal dilation. Pancreas: Unremarkable. No mass. No ductal dilation. Spleen: Unremarkable. No splenomegaly. Adrenals: Unremarkable. No mass. Kidneys and ureters: Unremarkable. No solid mass. No hydronephrosis. Stomach and bowel: Unremarkable. No obstruction. No mucosal thickening. PELVIS: Appendix: Normal appendix. Bladder: Unremarkable. No mass. Reproductive: Unremarkable as visualized. ABDOMEN and PELVIS: Intraperitoneal space: Unremarkable. No free air. No significant fluid collection. Bones/joints: No acute fracture. No dislocation. Soft tissues: Unremarkable. Vasculature: Unremarkable. No abdominal aortic aneurysm. Lymph nodes: Unremarkable. No enlarged lymph nodes. IMPRESSION: 1. Patient status post cholecystectomy. 2. Normal appendix. Automatic exposure control was used as a dose lowering technique. Contrast Type: ISOVUE 300. Contrast Volume: 100CC REPORT SIGNATURE ON FILE 05/17/2020 (21:41 Eastern Time ) Signed by: Ulisses Sethi M.D. Reported By Ulisses Sethi MD on 05/17/202140 Signed By Ulisses Sethi MD on 05/17/202140 Date Time CC: Trice Aj; Ulisses Sethi MD Techn: JANAE Ocampo Dt/Tm: Trans by: LUPIS Prt Dt/Tm: : Total DLP = 1196.00 mGy-cm : Total Radiation Dose = 17.9400 mSv Lifetime Dose: 34.7550 mS v Radiology Report July 01, 2020 10:55p m Telly Robledo MD completed [place] [address] [place] [address] [phone] NAME SEX PT STATUS ACCOUNT NUMBER ANNA MARIE BELTRAN REG ER [id number] ORDERING PHYSICIAN LOCATION MEDICAL RECORD NO. Mikhail Sheriff MD ER [id number] ATTENDING PHYSICIAN DATE OF DATE OF EXAM/TIME Nicol Sebastian NP 1994 07/01/202118 TYPE / EXAM Xray Chest One View REASON FOR EXAM abd pain, diarrhea Clinical History/Indication for Exam: abd pain, diarrhea RADIOGRAPH OF THE CHEST 1 VIEW INDICATION: Chest pain, diarrhea COMPARISON: No relevant prior studies available. FINDINGS: Lungs: Unremarkable. No consolidation. Pleural space: Unremarkable. No pneumothorax. Heart: Unremarkable. No cardiomegaly. Mediastinum: Unremarkable. Bones/joints: Unremarkable. IMPRESSION: Normal chest x-ray. REPORT SIGNATURE ON FILE 07/01/2020 (22:55 Eastern Time ) Signed by: Telly Robledo M.D. Reported By Telly Robledo MD on 07/01/202254 Signed By Telly Robledo MD on 07/01/202254 Date Time CC: Nicol Sebastian; Telly Robledo MD Techn: ROSAU Trans Dt/Tm: Trans by: DT Prt Dt/Tm: [id number]: Total DLP = 0.00 mGy-cm Fluoroscopy Time (in secs): Radiology Report July 01, 2020 11:07p m Niels Wilkerson MD completed [place] [id number] [place] [address] [phone] NAME SEX PT STATUS ACCOUNT NUMBER CANDIE BELTRANELYSHAI Crespo REG ER [id number] ORDERING PHYSICIAN LOCATION MEDICAL RECORD NO. Mikhail Sheriff MD ER [id number] ATTENDING PHYSICIAN DATE OF DATE OF EXAM/TIME RomuloNicol YELITZA 1994 07/01/202115 TYPE / EXAM CT Abd/pel w/ contrast REASON FOR EXAM gen abd pain, diarrhea Clinical History/Indication for Exam: gen abd pain, diarrhea CT ABDOMEN AND PELVIS WITH INTRAVENOUS CONTRAST INDICATION: gen abd pain, diarrhea TECHNIQUE: Axial computed tomography images of the abdomen and pelvis with intravenous contrast. Sagittal and coronal reformatted images were created and reviewed. This CT exam was performed using one or more of the following dose reduction techniques: automated exposure control, adjustment of the mA and/or kV according to patient size, and/or use of iterative reconstruction technique. COMPARISON: CT abdomen pelvis of 05/17/2020 FINDINGS: Lung bases: Unremarkable. No mass. No consolidation. ABDOMEN: Liver: Unremarkable. No mass. Gallbladder and bile ducts: Status post cholecystectomy. No ductal dilation. Pancreas: Unremarkable. No mass. No ductal dilation. Spleen: Unremarkable. No splenomegaly. Adrenals: Unremarkable. No mass. Kidneys and ureters: Unremarkable. No solid mass. No hydronephrosis. Stomach and bowel: Intramural fat in the colon, this suggests prior inflammation. No obstruction. No mucosal thickening. PELVIS: Appendix: No findings to suggest acute appendicitis. Bladder: Mild bladder wall thickening. Reproductive: Unremarkable as visualized. ABDOMEN and PELVIS: Intraperitoneal space: Mild kiran mesentery, nonspecific finding, this is stable. No free air. No significant fluid collection. Bones/joints: No acute fracture. No dislocation. Soft tissues: Small fat-containing umbilical hernia. Vasculature: Unremarkable. No abdominal aortic aneurysm. Lymph nodes: Slightly prominent paraesophageal lymph node, stable, 2-16. IMPRESSION: 1. Mild bladder wall thickening, correlate with urinalysis. 2. Status post cholecystectomy. Automatic exposure control was used as a dose lowering technique. Contrast Type: isovue 300. Contrast Volume: 100cc REPORT SIGNATURE ON FILE 07/01/2020 (23:07 Eastern Time ) Signed by: Niels Wilkerson M.D. Reported By Niels Wilkerson MD on 07/01/202306 Signed By Niels Wilkerson MD on 07/01/202306 Date Time CC: Nicol Sebastian; Niels Wilkerson MD Techn: YAIRAISU Trans Dt/Tm: Trans by: DT Prt Dt/Tm: : Total DLP = 1469.00 mGy-cm : Total Radiation Dose = 22.0350 mSv Lifetime Dose: 56.7900 mS v Radiology Report August 03, 2020 7:33p m Gibran Villa MD completed [facility] [address] [place] [address] [phone] NAME SEX PT STATUS ACCOUNT NUMBER ANNA MARIE BELTRAN [facility] ER [id number] ORDERING PHYSICIAN LOCATION MEDICAL RECORD NO. Daljit Alex MD ER [id number] ATTENDING PHYSICIAN DATE OF DATE OF EXAM/TIME Nicol Sebastian NP 1994 08/03/201857 TYPE / EXAM US OB Transvaginal REASON FOR EXAM Rule out ectopic, rule out right ovarian torsion Clinical History/Indication for Exam: Rule out ectopic, rule out right ovarian torsion Ultrasound OB History: Pain. . Prior: None. Technique: Multiple pedro-scale, color Doppler, and M-Mode Doppler images were obtained using transabdominal and transvaginal pelvic ultrasound. Findings: There is a gestational sac with a yolk sac. Gestational sac mean diameter is 1.4 cm corresponding to 5 weeks and 4 day. There is no pole seen at this time. The uterus measures 8.4 x 5 x 6.5 cm. There is no uterine mass seen. The right ovary measures 2.3 x 1.8 x 2.7 cm with a 1.3 cm cyst. The left ovary measures 2.3 x 1.7 x 2 cm with a 1.4 cm cyst. There are no ovarian masses. There is appropriate ovarian vascular blood flow. The adnexa are unremarkable bilaterally. There is no free fluid. There is a 1.4 x 0.4 x 0.5 hypoechoic region adjacent to the gestational sac concerning for a subchorionic hemorrhage. Impression: None. There is an intrauterine gestational sac and a yolk sac corresponding to 5 weeks and 4 days and ISH of 04/01/2021. There is no pole seen at this time. This may represent early . Continued correlation with patient's serial beta-hCG levels and followup as clinically warranted for confirmation. There is a subchorionic hemorrhage. 2. There are small bilateral follicular cysts. No ovarian torsion evident. REPORT SIGNATURE ON FILE 08/03/2020 (19:33 Eastern Time ) Signed by: Gibran Villa M.D. Reported By Gibran Vlila MD on 08/03/201932 Signed By Gibran Villa MD on 08/03/201932 Date Time CC: Nicol Sebastian; Gibran Villa MD Techn: FREST Trans Dt/Tm: Trans by: DT Prt Dt/Tm: : Total DLP = 0.00 mGy-cm : Total Radiation Dose = 0.0000 mSv Lifetime Dose: 56.7900 mSv Radiology Report August 03, 2020 7:59p m Telly Robledo MD completed [place] [address] [place] [address] [phone] NAME SEX PT STATUS ACCOUNT NUMBER ANNA MARIE BELTRAN [facility] ER [id number] ORDERING PHYSICIAN LOCATION MEDICAL RECORD NO. Daljit Alex MD ER [id number] ATTENDING PHYSICIAN DATE OF DATE OF EXAM/TIME Nicol Sebastian NP 1994 08/03/201925 TYPE / EXAM US Abd single organ/quadrant REASON FOR EXAM Right lower quadrant pain, rule out appendicitis Clinical History/Indication for Exam: Right lower quadrant pain, rule out appendicitis Clinical history: Right lower quadrant abdominal pain Technique: Real-time limited sonography of the abdomen is performed to evaluate for appendicitis. Findings: No evidence for a compressible or noncompressible tubular structure is seen There is no ring of fire There is no appendicolith There is no localized tenderness There is no fluid collection Impression: 1. No acute abnormality 2. The appendix is not seen REPORT SIGNATURE ON FILE 08/03/2020 (19:59 Eastern Time ) Signed by: Telly Robledo M.D. Reported By Telly Robledo MD on 08/03/201958 Signed By Telly Robledo MD on 08/03/201958 Date Time CC: Nicol Sebastian; Telly Robledo MD Techn: FREST Trans Dt/Tm: Trans by: DT Prt Dt/Tm: : Total DLP = 0.00 mGy-cm : Total Radiation Dose = 0.0000 mSv Lifetime Dose: 56.7900 mSv Radiology Report August 03, 2020 7:34p m Gibran Villa MD [address] [id number] [phone] NAME SEX PT STATUS ACCOUNT NUMBER ANNA MARIE BELTRAN [facility] ER [id number] ORDERING PHYSICIAN LOCATION MEDICAL RECORD NO. Daljit Alex MD ER [id number] ATTENDING PHYSICIAN DATE OF DATE OF EXAM/TIME Nicol Sebastian NP 1994 08/03/201858 TYPE / EXAM US OB Ultrasound <14 weeks REASON FOR EXAM RLQ PAIN; R/O ECTOPIC [address] [address] [phone] NAME SEX PT STATUS ACCOUNT NUMBER ANNA MARIE BELTRAN [facility] ER [id number] ORDERING PHYSICIAN LOCATION MEDICAL RECORD NO. Daljit Alex MD ER [id number] ATTENDING PHYSICIAN DATE OF DATE OF EXAM/TIME Nicol Sebastian NP 1994 08/03/201857 TYPE / EXAM US OB Transvaginal REASON FOR EXAM Rule out ectopic, rule out right ovarian torsion Clinical History/Indication for Exam: Rule out ectopic, rule out right ovarian torsion Ultrasound OB History: Pain. . Prior: None. Technique: Multiple pedro-scale, color Doppler, and M-Mode Doppler images were obtained using transabdominal and transvaginal pelvic ultrasound. Findings: There is a gestational sac with a yolk sac. Gestational sac mean diameter is 1.4 cm corresponding to 5 weeks and 4 day. There is no pole seen at this time. The uterus measures 8.4 x 5 x 6.5 cm. There is no uterine mass seen. The right ovary measures 2.3 x 1.8 x 2.7 cm with a 1.3 cm cyst. The left ovary measures 2.3 x 1.7 x 2 cm with a 1.4 cm cyst. There are no ovarian masses. There is appropriate ovarian vascular blood flow. The adnexa are unremarkable bilaterally. There is no free fluid. There is a 1.4 x 0.4 x 0.5 hypoechoic region adjacent to the gestational sac concerning for a subchorionic hemorrhage. Impression: None. There is an intrauterine gestational sac and a yolk sac corresponding to 5 weeks and 4 days and ISH of 04/01/2021. There is no pole seen at this time. This may represent early . Continued correlation with patient's serial beta-hCG levels and followup as clinically warranted for confirmation. There is a subchorionic hemorrhage. 2. There are small bilateral follicular cysts. No ovarian torsion evident. REPORT SIGNATURE ON FILE 08/03/2020 (19:33 Eastern Time ) Signed by: Gibran Villa M.D. Reported By Gibran Villa MD on 08/03/201932 Signed By Gibran Villa MD on 08/03/201932 Date Time CC: Nicol Sebastian; Gibran Villa MD Techn: WON Trans Dt/Tm: Trans by: DT Prt Dt/Tm: : Total DLP = 0.00 mGy-cm : Total Radiation Dose = 0.0000 mSv Lifetime Dose: 56.7900 mSv Reported By Gibran Villa MD on 08/03/201933 Signed By Gibran Villa MD on 08/06/20 1242 Date Time CC: Nicol Sebastian; Gibran Villa MD Techn: FREST Trans Dt/Tm: Trans by: DT Prt Dt/Tm: : Total DLP = 0.00 mGy-cm : Total Radiation Dose = 0.0000 mSv Lifetime Dose: 56.7900 mSv Radiology Report August 09, 2020 9:02p m Telly Robledo MD completed [facility] [address] [place] [id number] [phone] NAME SEX PT STATUS ACCOUNT NUMBER ANNA MARIE BELTRAN [facility] ER [id number] ORDERING PHYSICIAN LOCATION MEDICAL RECORD NO. Mikhail Sheriff MD ER [id number] ATTENDING PHYSICIAN DATE OF DATE OF EXAM/TIME Nicol Sebastian NP 1995 08/09/202038 TYPE / EXAM US OB Ultrasound <14 weeks REASON FOR EXAM Gen abd pain. +HCG ANNA MARIE BELTRAN [id number] 1995 ADDENDUM Clinical History/Indication for Exam: Gen abd pain. +HCG Addendum: The average ultrasound gestational age is 5 weeks and 5 days in gestation with an estimated delivery date is 04/06/2020 REPORT SIGNATURE ON FILE 08/09/2020 (23:06 Eastern Time ) Signed by: Telly Robledo M.D. Addendum Reported By Telly Robledo MD on 08/09/202305 Signed By Telly Robledo MD on 08/09/202305 Trans Dt/Tm: Trans by: MEDQ [p pg] Clinical History/Indication for Exam: Gen abd pain. +HCG US PELVIS TRANSABDOMINAL AND TRANSVAGINAL COMPLETE INDICATION: Generalized abdominal pain. +HCG TECHNIQUE: Real-time complete transabdominal and transvaginal pelvic ultrasound with image documentation. Transvaginal imaging was used for better evaluation of the endometrium and adnexa. COMPARISON: No relevant prior studies available. FINDINGS: Uterus/cervix: The uterus measures 7.5 x 4.6 x 5.3 cm Normal endometrial stripe thickness. No myometrial mass. Right ovary: The right ovary measures 2.2 x 1.7 x 2.0 cm There is normal color and duplex flow within the right ovary There is no adnexal masses. Normal blood flow. Left ovary: The left ovary measures 1.7 x 1.8 x 1.7 cm There is normal color and duplex flow within the left ovary Free fluid: There is no free fluid. Bladder: Unremarkable as visualized. Wall is normal thickness for degree of distention. Other findings: There is a possible single intrauterine of approximately weeks and 5 days in gestation. There is a possible yolk sac present. The pole and heart rate are not yet seen. There is a small subchorionic hemorrhage IMPRESSION: 1. There is a possible single intrauterine of approximately weeks and 5 days in gestation. There is a possible yolk sac present. The pole and heart rate are not yet seen. A short-term follow-up ultrasound be helpful 2. There is a small subchorionic hemorrhage REPORT SIGNATURE ON FILE 08/09/2020 (21:02 Eastern Time ) Signed by: Telly Robledo M.D. Reported By Telly Robledo MD on 08/09/202101 Signed By Telly Robledo MD on 08/09/202101 Date Time CC: Nicol Sebastian; Telly Robledo MD Techn: PAU Trans Dt/Tm: Trans by: DT Prt Dt/Tm: : Total DLP = 0.00 mGy-cm : Total Radiation Dose = 0.0000 mSv Lifetime Dose: 56.7900 mSv Radiology Report August 14, 2020 11:09am Oliverio Chen MD completed [facility] [address] [place] [id number] [phone] NAME SEX PT STATUS ACCOUNT NUMBER ANNA MARIE BELTRAN REG REF [id number] ORDERING PHYSICIAN LOCATION MEDICAL RECORD NO. Jarret Herbert MD [id number] ATTENDING PHYSICIAN DATE OF DATE OF EXAM/TIME Nicol Sebastian NP 1995 08/14/20915 TYPE / EXAM US OB Ultrasound <14 weeks REASON FOR EXAM FOLLOW UP SUBCHOR/ EARLY COMPARISON: August 19, 2020 and 2019 FINDINGS: Gestation: Single Conestee-rump length: Singlemm compatible with a Single week Single day gestational age. Yolk sac: Not seen No heart rate detected. Uterus: 8.5 x 4.6 x 7.0cm. A subchorionic hemorrhage is still seen. Average ultrasound age of 5 weeks 6 days. EDC: April 10, 2021. Conestee-rump length: 3.4mm IMPRESSION: 1. Gestational sac measurements, unchanged. 2. Subarachnoid hemorrhage is still seen. 3. Linear intraamniotic echogenicity, possibly the pole. No heart rate detected. Reported By Oliverio Chen MD on 08/14/20 1109 Signed By Oliverio Chen MD on 08/14/20 1114 Date Time CC: Nicol Sebastian; Oliverio Chen MD Techn: FREST Trans Dt/Tm: Trans by: DT Prt Dt/Tm: [id number]: Total DLP = 0.00 mGy-cm [id number]: Total Radiation Dose = 0.0000 mSv Lifetime Dose: 56.7900 mSv Radiology Report August 09, 2020 9:05p m Telly Robledo MD completed [facility] [address] [place] [address] [phone] NAME SEX PT STATUS ACCOUNT NUMBER ANNA MARIE BELTRAN [facility] [id number] ORDERING PHYSICIAN LOCATION MEDICAL RECORD NO. Mikhail Sheriff MD [id number] ATTENDING PHYSICIAN DATE OF DATE OF EXAM/TIME Nicol Sebastian NP 1995 08/09/202039 TYPE / EXAM US OB Transvaginal REASON FOR EXAM PAIN [facility] [address] [place], [place] [id number] [phone] NAME SEX PT STATUS ACCOUNT NUMBER ANNA MARIE EBLTRAN [facility] ER [id number] ORDERING PHYSICIAN LOCATION MEDICAL RECORD NO. Mikhail Sheriff MD ER [id number] ATTENDING PHYSICIAN DATE OF DATE OF EXAM/TIME RomuloNicol TORRE 1995 08/09/202038 TYPE / EXAM US OB Ultrasound <14 weeks REASON FOR EXAM Gen abd pain. +HCG ANNA MARIE BELTRAN [id number] 1995 ADDENDUM Clinical History/Indication for Exam: Gen abd pain. +HCG Addendum: The average ultrasound gestational age is 5 weeks and 5 days in gestation with an estimated delivery date is 04/06/2020 REPORT SIGNATURE ON FILE 08/09/2020 (23:06 Eastern Time ) Signed by: Telly Robledo M.D. Addendum Reported By Telly Robledo MD on 08/09/202305 Signed By Telly Robledo MD on 08/09/202305 Trans Dt/Tm: Trans by: ROGERIOQ [p pg] Clinical History/Indication for Exam: Gen abd pain. +HCG US PELVIS TRANSABDOMINAL AND TRANSVAGINAL COMPLETE INDICATION: Generalized abdominal pain. +HCG TECHNIQUE: Real-time complete transabdominal and transvaginal pelvic ultrasound with image documentation. Transvaginal imaging was used for better evaluation of the endometrium and adnexa. COMPARISON: No relevant prior studies available. FINDINGS: Uterus/cervix: The uterus measures 7.5 x 4.6 x 5.3 cm Normal endometrial stripe thickness. No myometrial mass. Right ovary: The right ovary measures 2.2 x 1.7 x 2.0 cm There is normal color and duplex flow within the right ovary There is no adnexal masses. Normal blood flow. Left ovary: The left ovary measures 1.7 x 1.8 x 1.7 cm There is normal color and duplex flow within the left ovary Free fluid: There is no free fluid. Bladder: Unremarkable as visualized. Wall is normal thickness for degree of distention. Other findings: There is a possible single intrauterine of approximately weeks and 5 days in gestation. There is a possible yolk sac present. The pole and heart rate are not yet seen. There is a small subchorionic hemorrhage IMPRESSION: 1. There is a possible single intrauterine of approximately weeks and 5 days in gestation. There is a possible yolk sac present. The pole and heart rate are not yet seen. A short-term follow-up ultrasound be helpful 2. There is a small subchorionic hemorrhage REPORT SIGNATURE ON FILE 08/09/2020 (21:02 Eastern Time ) Signed by: Telly Robledo M.D. Reported By Telly Robledo MD on 08/09/202101 Signed By Telly Robledo MD on 08/09/202101 Date Time CC: Nicol Sebastian; Telly Robledo MD Techn: PAU Ocampo Dt/Tm: Trans by: DT Prt Dt/Tm: : Total DLP = 0.00 mGy-cm : Total Radiation Dose = 0.0000 mSv Lifetime Dose: 56.7900 mSv Reported By Telly Robledo MD on 08/09/202104 Signed By Telly Robledo MD on 08/14/20 1245 Date Time CC: Nicol Sebastian; Telly Robledo MD Techn: PAU Trans Dt/Tm: Trans by: DT Prt Dt/Tm: : Total DLP = 0.00 mGy-cm : Total Radiation Dose = 0.0000 mSv Lifetime Dose: 56.7900 mSv Radiology Report August 21, 2020 10:47am Oliverio Chen MD completed [facility] [address] [place] [id number] [phone] NAME SEX PT STATUS ACCOUNT NUMBER ANNA MARIE BELTRAN PRE REF [id number] ORDERING PHYSICIAN LOCATION MEDICAL RECORD NO. Jarret Herbert MD [id number] ATTENDING PHYSICIAN DATE OF DATE OF EXAM/TIME Nicol Sebastian NP 1995 08/21/20 / 1017 TYPE / EXAM US OB Transvaginal REASON FOR EXAM EVAL FOR IUP COMPARISON: August 14, 2020. FINDINGS: Gestation: Single Conestee-rump length: No pole seen. Gestational sac: 13.4 mm, consistent with a 5 week 4 day gestation. Yolk sac: 4.2mm Uterus: 9.1 x 3.7 x 5.1cm. A subchorionic hemorrhage is again seen. It measures approximately 9 x 7 x 11 mm, compared to approximately 12 x 5 x 28 mm, previously. Right ovary: 2.4 x 1.7 x 2.4cm Left ovary: 2.5 x 1.4 x 1.9cm. A left ovarian cyst measures approximately 1.5 cm. Average ultrasound age of 5 weeks 4 days. EDC: April 19, 2021. pole not seen. IMPRESSION: 1. Intrauterine in the bases of the gestational sac and a yolk sac. No pole seen. 2. Gestational sac compatible with a 5 week 4 day gestational age. Reported By Oliverio Chen MD on 08/21/20 1047 Signed By Oliverio Chen MD on 08/21/20 1053 Date Time CC: Nicol Sebastian; Oliverio Chen MD Techn: PAU Trans Dt/Tm: Trans by: DT Prt Dt/Tm: : Total DLP = 0.00 mGy-cm : Total Radiation Dose = 0.0000 mSv Lifetime Dose: 56.7900 mSv Radiology Report August 21, 2020 10:47am Oliverio Chen MD completed [facility] [address] [place] [id number] [phone] NAME SEX PT STATUS ACCOUNT NUMBER ANNA MARIE BELTRAN PRE REF [id number] ORDERING PHYSICIAN LOCATION MEDICAL RECORD NO. Jarret Herbert MD [id number] ATTENDING PHYSICIAN DATE OF DATE OF EXAM/TIME Nicol Sebastian NP 1995 08/21/20 / 1017 TYPE / EXAM US OB Ultrasound <14 weeks REASON FOR EXAM Re-evaluation for subchor. COMPARISON: August 14, 2020. FINDINGS: Gestation: Single Conest[place]-rump length: No pole seen. Gestational sac: 13.4 mm, consistent with a 5 week 4 day gestation. Yolk sac: 4.2mm Uterus: 9.1 x 3.7 x 5.1cm. A subchorionic hemorrhage is again seen. It measures approximately 9 x 7 x 11 mm, compared to approximately 12 x 5 x 28 mm, previously. Right ovary: 2.4 x 1.7 x 2.4cm Left ovary: 2.5 x 1.4 x 1.9cm. A left ovarian cyst measures approximately 1.5 cm. Average ultrasound age of 5 weeks 4 days. EDC: April 19, 2021. pole not seen. IMPRESSION: 1. Intrauterine in the bases of the gestational sac and a yolk sac. No pole seen. 2. Gestational sac compatible with a 5 week 4 day gestational age. Reported By Oliverio Chen MD on 08/21/20 1047 Signed By Oliverio Chen MD on 08/21/20 1053 Date Time CC: Nicol Sebastian; Oliverio Chen MD Techn: PAU Trans Dt/Tm: Trans by: DT Prt Dt/Tm: : Total DLP = 0.00 mGy-cm : Total Radiation Dose = 0.0000 mSv Lifetime Dose: 56.7900 mSv Health Concerns Health Concerns may be documented in an alternate section. Advance Directives Advance Directive Response Recorded Date/Time Advanced Directive No Fe 2020 9:44am MOLST No September 24 9:44am Advance Directives on File or in chart? No September 24, 2020 9:44am Does Patient have a DNR? No September 24, 2020 9:44am Healthcare Proxy No Febr uary 2020 9:44am Living Will No September 24, 2020 9:44am Chief Complaint and Reason for Visit Chief Complaint R10.9 Encounter to Establish Care E66.01,R16.0,I10,F41.9 HEPATOMEGALY/R80.9 ABDOMINAL PAIN BLOOD IN URINE Ear Complaint Encounter to Establish Care R10.11 PELVIC PAIN Sleep problems SORE THROAT,EAR PAIN NAUSEA, ABDOMINAL PAIN, COUGH, CHEST PAIN Call First Appt J06.9 ER Follow-up (Adult) R19.7 C-DIFF COLITIS Amb Documentation C-diff Cdiff Abnormal uterine bleeding Pain Sleep problems N91.2 ABDOMINAL PAIN ER Follow-up (Adult) Urinary complaint ABDOMINAL PAIN ABDOMINAL PAIN, BLOOD IN URINE/STOOL PAIN [facility] Initial Visit Hernia [facility] SUBCHORIONIC BLEED O02.1/SUCTION D+C [id number] ANEMBRYONIC GESTATION [facility] Post op care ABDOMINAL PAIN Telemed Visit [facility] Office Visit [facility] Post op care R19.7 HEADACHE, NAUSEA, DIZZY Telemed Visit E66.01 Amb Documentation ABDOMINAL PAIN Amb Documentation Telemed Visit [facility] Pelvic pain N92.0 ER Follow-up (Adult) Reason for Visit Anxiety Depression GERD (gastroesophageal reflux disease) Hepatomegaly HTN (hypertension) Morbid obesity PTSD (post-traumatic stress disorder) Metrorrhagia Anxiety Depression HTN (hypertension) Morbid obesity PTSD (post-traumatic stress disorder) Anxiety Nausea Abdominal pain Abdominal pain Insomnia Abdominal pain Anxiety Depression Morbid obesity Numbness and tingling of both legs Morbid obesity Elevated serum creatinine GERD (gastroesophageal reflux disease) PTSD (post-traumatic stress disorder) PTSD (post-traumatic stress disorder) Rash of finger Abdominal pain GERD (gastroesophageal reflux disease) Metrorrhagia Encounters Encounter Location(s) Ar rival/Admit Date Discharge/Depart Date Provider(s) Registered Referred [facility]-Laboratory February 20, 2020 8:12am Bianka Sen MD Departed Physician/Provider Office Visit [facility] February 20, 2020 10:22am February 20, 2020 11:42am Cesario Metcalf Registered Referred [facility]-Laboratory February 26, 2020 9:54am Jose Kramer DO Registered Referred [facility]-Ultrasound February 28, 2020 6:57am Jose Kramer DO Departed Emergency [facility]Emergency Room ER March 02, 2020 10:34am March 02, 2020 1:45pm null Departed Emergency [facility]-Emergency Room ER March 05, 2020 2:01pm March 05, 2020 4:29pm null Departed Physician/Provider Office Visit [facility] March 11, 2020 9:28am March 11, 2020 10:13am Trice dimas NP Departed Physician/Provider Office Visit [facility] Women's Health March 11, 2020 10:17am March 11, 2020 11:49am Pola Meadows MD Registered Referred [facility]-Laboratory March 11, 2020 11:56am Trice Aj NP Registered Referred [facility]-Ultrasound March 12, 2020 11:38am Pola Meadows MD Departed Physician/Provider Office Visit [facility] March 12, 2020 12:22pm March 12, 2020 2:13pm Trice holbrook NP Departed Emergency [facility]-Emergency Room ER March 13, 2020 9:18am March 13, 2020 10:18am null Departed Emergency [facility]-Emergency Room ER March 25, 2020 7:55am March 25, 2020 9:27am null Departed Physician/Provider Office Visit [facility] March 25, 2020 2:51pm March 25, 2020 2:52pm Nathalie valerio Registered Referred [facility]-Lab Drop Off March 25, 2020 3:08pm Nathalie Pace Departed Physician/Provider Office Visit [facility] March 28, 2020 7:01am March 28, 2020 7:47am Trice dimas NP Registered Outpatient [facility] Internal Medicine April 05, 2020 8:29am Trice Aj NP Registered Referred [facility]-Laboratory May 17, 2020 1:48pm Trice Aj NP Discharged Inpatient [facility] EW May 18, 2020 12:18am Septemb er 2019 2:40pm Tad Menendez MD Registered Outpatient [facility] May 20, 2020 2:25pm Amara Garcia RN Departed Physician/Provider Office Visit [facility] May 23, 2020 7:51am May 23, 2020 8:35am Trice Aj NP Departed Physician/Provider Office Visit [facility] May 30, 2020 9:25am May 30, 2020 11:56am Nicol rincon NP Departed Physician/Provider Office Visit [facility] Women's Health June 10, 2020 8:26am June 10, 2020 8:58am Jarret Herbert MD Departed Physician/Provider Office Visit [facility] June 28, 2020 3:47pm June 28, 2020 4:33pm Nicol Sebastian NP Departed Physician/Provider Office Visit [facility] July 01, 2020 9:04am July 01, 2020 11:04am Nicol Sebastian [facility], 2020 9:47am Kiersten Schulz DO Departed Emergency [facility]-Emergency Room ER July 01, 2020 8:40pm July 02, 2020 12:20am null Departed Physician/Provider Office Visit [facility] July 04, 2020 11:14am July 04, 2020 12:47pm Nicol Sebastian NP Departed Physician/Provider Office Visit [facility] July 25, 2020 9:54am July 25, 2020 10:57am Nicol Sebastian [facility], 2020 9:45am Jaki Elias MD Departed Emergency [facility]-Emergency Room ER August 03, 2020 1:29pm August 03, 2020 8:21pm null Departed Emergency [facility]-Emergency Room ER August 09, 2020 6:19pm August 10, 2020 5:45am null Registered Referred [facility]-Ultrasound August 14, 2020 9:29am Jarret Herbert MD Departed Physician/Provider Office Visit [facility] August 14, 2020 9:41am August 14, 2020 11:45am Patrick Herbert MD Departed Physician/Provider Office Visit [facility] August 20, 2020 9:00am August 20, 2020 9:20am Barrett Sparks MD Departed Physician/Provider Office Visit [facility] August 21, 2020 10:25am August 21, 2020 11:32am Jarret Herbert MD Registered Referred [facility]-Ultrasound August 21, 2020 11:17am Jarret Herbert MD Departed Surgical Day Care [facility] August 22, 2020 6:20am August 22, 2020 10:05am Patrick Herbert MD Registered Outpatient [facility] August 22, 2020 8:00am Jarret Herbert MD Departed Physician/Provider Office Visit [facility] August 27, 2020 10:07am August 27, 2020 10:41am Jarret Herbert MD Departed Emergency [facility]Emergency Room ER August 30, 2020 6:50pm August 30, 2020 9:08pm null Departed Physician/Provider Office Visit [facility] September 02, 2020 10:06am September 02, 2020 4:34pm Jose Kramer DO Departed Physician/Provider Office Visit [facility] September 03, 2020 9:28am September 03, 2020 11:05am Jarret Herbert MD Departed Physician/Provider Office Visit [facility] September 05, 2020 11:10am September 05, 2020 11:48am Jarret Herbert MD Registered Referred [facility]Laboratory September 05, 2020 11:47am Jarret Herbert MD Departed Emergency [facility]-Emergency Room ER September 09, 2020 10:24pm September 10, 2020 1:21am null Departed Physician/Provider Office Visit [facility] September 11, 2020 11:04am September 11, 2020 11:59pm Jose Kramer DO Registered Clinical [facility]-Nutrition September 13, 2020 12:40pm Jose Kramer DO Registered Outpatient [facility] September 19, 2020 8:41pm Daniela Burnham Departed Emergency [facility]-Emergency Room ER September 23, 2020 6:08pm September 23, 2020 9:16pm null Registered Outpatient [facility] September 24, 2020 7:47pm Daniela Burnham Departed Physician/Provider Office Visit [facility] September 25, 2020 3:11pm September 25, 2020 3:57pm Jose Kramer DO Departed Physician/Provider Office Visit [facility] Women's Health September 27, 2020 10:11am September 27, 2020 11:05am Jarret Herbert MD Registered Referred [facility]Laboratory September 27, 2020 11:21am Jarret Herbert MD Departed Physician/Provider Office Visit [facility] October 01, 2020 8:41am October 01, 2020 9:15am Luis Duggan MD Recent Diagnosis Onset Date Anxiety Depression GERD (gastroesophageal reflux disease) Hepatomegaly HTN (hypertension) Morbid obesity PTSD (post-traumatic stress disorder) Metrorrhagia Anxiety Depression HTN (hypertension) Morbid obesity PTSD (post-traumatic stress disorder) Anxiety Nausea Abdominal pain Abdominal pain Insomnia Abdominal pain Anxiety Depression Morbid obesity Numbness and tingling of both legs Morbid obesity Elevated serum creatinine GERD (gastroesophageal reflux disease) PTSD (post-traumatic stress disorder) PTSD (post-traumatic stress disorder) Rash of finger Abdominal pain GERD (gastroesophageal reflux disease) Metrorrhagia Assessments Diagnosis Onset Date Res olution Status Anxiety chronic Depression chronic GERD (gastroesophageal reflux disease) chronic Hepatomegaly chronic HTN (hypertension) chronic Morbid obesity chronic PTSD (post-traumatic stress disorder) chronic Metrorrhagia acute Anxiety chronic Depression chronic HTN (hypertension) chronic Morbid obesity chronic PTSD (post-traumatic stress disorder) chronic Anxiety chronic Nausea acute Abdominal pain chronic Abdominal pain chronic Insomnia acute Abdominal pain chronic Anxiety chronic Depression chronic Morbid obesity chronic Numbness and tingling of both legs acute Morbid obesity chronic Elevated serum creatinine acute GERD (gastroesophageal reflux disease) chronic PTSD (post-traumatic stress disorder) chronic PTSD (post-traumatic stress disorder) chronic Rash of finger chronic Abdominal pain chronic GERD (gastroesophageal reflux disease) chronic Metrorrhagia acute Family History Relationship Condition A ge at Onset Recorded Date/Time Not Specified Cerebrovascular accide nt (CVA) Unknown Not Specified Hernia Unk nown Functional Status Observation Response Neil e Recorded Functional Status Complete Mono May 18, 2020 1:30am Goals Goals may be documented in an alternate section. Immunizations No Immunization Information Available Mental Status Observation Response Neil e Recorded Cognitive Status Normal Cognition May 18, 2020 1:30am Impairments No impairments or barriers September 24, 2020 9:44am Medical Equipment No Medical Equipment Information available Insurance Providers Guarantor ANNA MARIE BELTRAN Address [address] [place] [address] Contact Info. Home Phone: Payer Policy Id Coverage Id Subscriber's Name Subscriber Id Effective Date Expiration Date [facility] [id number] ANNA MARIE BELTRAN [id number] [facility] [id number] ANNA MARIE BELTRAN [id number] [facility] [id number] ANNA MARIE BELTRAN [id number] MEDICAID [id number] ANNA MARIE BELTRAN [id number] Self Pay Self N/A Plan of Treatment food diary continue current medical treatment d/c ascorbic acid c diff is pending stool cultures pending f/u GI doctor if condition worsens , then go to ER she wants to check for food allergies she sometimes get winded when walking out in the cold getting mail she wants to have rescue inhaler albuterol as ordered if condition worsens, then go to ER Patient's current problems do appear to be bowel related and she has an appropri ate referral for colonoscopy. We did spend some time discussing likely options for bowel prep an d ways to complete that with the least amount of discomfort and nausea. We spent a good deal of ti me discussing proper diet and fiber sources because she needs to avoid recurrence of constipation. C ultures are pending but at this point she does not appear to be someone with an infectious gastroent eritis and probably not an active C. difficile case. She expressed an interest in achieving and I advised against this for the moment. I like to see her have a resolution of her GI issues and a return of menstrual function . She declined an offer of OCPs. Since she first came to attention as a surgical candidate due to her anembryonic , we can have to backtrack now with respect to her general health issue s. A TSH and A1c will be ordered if not available already. Meanwhile it is odd that her patholog y report is 5 weeks old and still has not been addended with the outside review. All initiated cont act with Dr. Nava to see if there is an explanation for this. f/u manager of financial planning needs improvement f/u mental health if condition worsens, then go to ER f/u furnace feeder if condition worsens, then go to ER needs improvement food diary continue current medical treatment needs improvement continue current medical treatment f/u mental health if condition worsens, then go to ER This young lady first presented in May with her plan to discontinue oral con traceptives and rely on condoms. Unsurprisingly she became shortly thereafter. It appears that this will be unsuccessful as there is no pole yet detectable and beta's are tom pping from 20,000 to the 16,000 range. That said the patient is scheduled for repeat ultrasound in 1 week and she is prepared for the possibility of a spontaneous miscarriage at home over the [facility] ay. She chooses to wait for the confirming ultrasound on 21 August. We discussed a blighted ovum or anembryonic gestation, the frequency and types of early miscarriage, and her options for man agement. At this time she will await the repeat ultrasound and if that again shows a failed gesta tion she will consider scheduling for a simple suction D&C thereafter. I updated her other providers in the office as they are aware of the patient as well. Awaiting cad developer referral. Increase diet and exercise. Referral to [facility] for chronic inflammation. Elevate legs. 25 yoF with umbilical hernia but more importantly repeated episodes of abdominal pain, diarrhea and at times blood in stool. She has been to the ED once in April and June for the abdominal pain/diarrhea. CT scan were done both times showing only small umbilical hernia (fat containing). She is 6 weeks . -I recommended colonoscopy after her is carried out given the ongoing issues with abdominal pain and diarrhea with blood in stool at times. She will be in touch with us once is carried out. Sertaline 100 mg daily and seroquel 50 mg HS. Follow up with mental health. Go to ER for increased problems. Sertraline 100 mg daily. Seroquel 50 mg HS. Follow up with counselor and mental health. Go to ER if increased problems. Referral to dietitian. Sertraline 100 mg daily. Seroquel 50 mg HS. Good sleep hygiene. Bilateral ears flushed to remove ear wax. Do not use qtip inside the ear. Follow up with GI . July 26, 2020 for upper GI. [employer]enn[employer] rice, applesauce, bananas, and toast. Resolved. Upper GI on July 26, 2020. Eat BRAT diet. Bannanas, Rice, applesuce, and toast. Avoid eating late at night or 3 hours before sleep. Tylenol for pain. Go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
--- OUTSIDE RECORDS SUMMARY | 2020-10-18 09:39 | CCD | Continuity of Care Document ---
Author Author [facility] Address [address] [place] [address] Phone Support Name Relationship Address Phone Jose Kramer PRS [address] [place] [address] Polly Sen PRS [address] [place] [address] John Islas PRS [address] [place] [address] [place] [address] Pola Meadows [place] [address] Pola Meadows PRS [address] [place] [address] Hiren Perez PRS [address] [place] [address] Nathalie Pace PRS [address] [place] [address] Verónica Sheriff PRS [address] [place] [address] Tad Menendez PRS [address] [place] [address] Amara Garcia PRS Unknown Unavailable Nicol Sebastian PRS [address] [place] [address] Darnell Herbert PRS [address] [place] [address] Kiersten Schulz PRS [address] [place] [address] [place] [address] Lazaro Alexod PRS [address] [place] [address] Niels Valdez PRS [address] [place] [address] Dora Jainbere PRS [address] [place] [address] Barrett Sparks PRS [address] [place] [address] Dmitriy Peraza PRS [address] [place] [address] [place] [address] Sravani Balderrama PRS [address] [place] [address] Niels Edward PRS [address] [place] [address] Daniela Burnham PRS [address] [place] [address] Ramirez Lopez PRS [address] [place] [address] Allergies, Adverse Reactions, Alerts Allergen Type Severity [...] 325 MG PO Four Times a Day February 20, 2020 11:24am March 25, 2020 [...] 500 MG PO Three times a day 30 September 05, 2020 11:45am September 23, 2020 6:45pm Metoclopramide Hcl (Reglan) 10 mg tablet Discontinued 10 MG PO b efore meals September 05, 2020 11:52am September 23, 2020 6:43pm administer 30 minutes before meals Meclizine Discontinued 25 MG PO daily 5 September 03, 2020 10:36am September 11, 2020 4:44pm Albuterol Sulfate Active 1 INH IH Four Times a Day 8.5 September 25, 2020 3:24pm Nitrofurantoin Monohyd/M-Cryst (Macrobid) 100 mg capsu le Discontinued 100 MG PO Every 12 Hours 14 7 March 02, 2020 1:32pm March 11 10:57am must administer with a meal/food Promethazine Discontinued 25 MG PO Three times a day 9 March 02, 2020 1:34pm March 25, 2020 [...] Discontinued 1 APPFUL PV Once Per Day March 23, 2020 3:06pm May 17, 2020 [...] Active Depression Active Diarrhea Active Diarrhea Active Snoring Active Elevated serum creatinine Active Anembryonic [...] pharyngitis Resolved Procedures Procedure Date Performed Status Urine Culture September 23, 2020 completed Influenza-Like Illness (PCR) 2020 completed September 23, 2020 com pleted Escherichia coli Shiga Toxins EIA Fe bruary 2020 active Salmonella/Shigella Screen September 23, 2020 active Campylobacter Culture September 23, 2020 active Escherichia coli 0157 Culture ry 2020 active Urine Culture September 09, 2020 completed Urine [...] July 01, 2020 completed SARS-CoV-2 (PCR) Interpretation Prasanth mber [address] Abd/pel w/ contrast April 7:09pm completed Urine Culture May 18, 2020 completed Respiratory Panel (PCR) May 182019 completed Gastrointestinal Tract Panel (PCR) S ep2019 completed Xray Chest 2 view PA/LAT March [...] 23, 2020 8:05p m 10.2 10e3/uL 4.45-10.71 [facility], [address] [place] [address] [id number] White Blood Count September 09, 2020 11:50pm 10.6 10e3/uL 4.45-10.71 [facility], [address] [place] [address] White Blood Count September 05, 2020 12:03pm 10.3 10e3/uL 4.45-10.71 [facility], [address] [place] [address] [id number] White Blood Count August 30, 2020 8:15pm 11.3 10e3/uL 4.45-10.71 [facility], [address] [place] [address] White Blood Count August 09 0 7:35pm 9.9 10e3/uL 4.45-10.71 [facility], [address] [place] [address] White Blood Count August 14 0 9:31am 9.8 10e3/uL 4.45-10.71 [facility], [address] [place] [address] White Blood Count August 03 0 2:35pm 8.6 10e3/uL 4.45-10.71 [facility], [address] [place] [address] [id number] White Blood Count July 01, 2020 9:40p m 11.2 10e3/uL 4.45-10.71 [facility], [address] [place] [address] White Blood Count May 18 6:17am 9.3 10e3/uL 4.45-10.71 [facility], [address] [place] [address] White Blood Count March 25, 2020 8:11am 10.8 10e3/uL 4.45-10.71 [facility], [address] [place] [address] White Blood Count March 11, 2020 12:14pm 11.3 10e3/uL 4.45-10.71 [facility], [address] [place] [address] White Blood Count March 02, 2020 11:00am 10.3 10e3/uL 4.45-10.71 [facility], [address] [place] [address] White Blood Count February 26, 2020 10:02am 9.8 10e3/uL 4.45-10.71 [facility], [address] [place] [address] White Blood Count February 20, 2020 8:35am 8.8 10e3/uL 4.45-10.71 [facility], [address] [place] [address] [id number] Red Blood Count September 23, 2020 8:05pm 4.67 10e6/uL 4.20-5.40 [facility], [address] [place] [address] 09420 Red Blood Count September 09, 2020 11:50pm 4.49 10e6/uL 4.20-5.40 [facility], [address] [place] [address] 38191 Red Blood Count September 05, 2020 12:03pm 4.38 10e6/uL 4.20-5.40 [facility], [address] [place] [address] [id number] Red Blood Count August 30, 2020 8:15pm 4.26 10e6/uL 4.20-5.40 [facility], [address] [place] [address] Red Blood Count August 09, 2020 7:35pm 4.49 10e6/uL 4.20-5.40 [facility], [address] [place] [address] [id number] Red Blood Count August 14, 2020 9:31am 4.57 10e6/uL 4.20-5.40 [facility], [address] [place] [address] 83885 Red Blood Count August 03, 2020 2:35pm 4.47 10e6/uL 4.20-5.40 [facility], [address] [place] [address] Red Blood Count July 01, 2020 9:40pm 4.51 10e6/uL 4.20-5.40 [facility], [address] [place] [address] 50012 Red Blood Count May 18, 2020 6:17a m 4.10 10e6/uL 4.20-5.40 [facility], [address] [place] [address] 65640 Red Blood Count March 25, 2020 8:11am 4.25 10e6/uL 4.20-5.40 [facility], [address] [place] [address] [id number] Red Blood Count March 11, 2020 12:14pm 4.58 10e6/uL 4.20-5.40 [facility], [address] [place] [address] [id number] Red Blood Count March 02, 2020 11:00am 4.52 10e6/uL 4.20-5.40 [facility], [address] [place] [address] [id number] Red Blood Count February 26, 2020 10:02am 4.84 10e6/uL 4.20-5.40 [facility], [address] [place] [address] [id number] Red Blood Count February 20, 2020 8:35am 5.02 10e6/uL 4.20-5.40 [facility], [address] [place] [address] 31713 Hemoglobin September 23, 2020 8:05pm 11.9 g/dL 10.7-15.4 [facility], [address] [place] [address] 37899 Hemoglobin September 09, 2020 11:50pm 11.4 g/dL 10.7-15.4 [facility], [address] [place] [address] 66796 Hemoglobin September 05, 2020 12:03pm 10.8 g/dL 10.7-15.4 [facility], [address] [place] [address] 68023 Hemoglobin August 30, 2020 8:15pm 10.5 g/dL 10.7-15.4 [facility], [address] [place] [address] 70101 Hemoglobin August 09, 2020 7:35pm 11.4 g/dL 10.7-15.4 [facility], [address] [place] [address] 95444 Hemoglobin August 14, 2020 9:31am 11.4 g/dL 10.7-15.4 [facility], [address] [place] [address] 42781 Hemoglobin August 03, 2020 2:35pm 11.5 g/dL 10.7-15.4 [facility], [address] [place] [address] 51081 Hemoglobin July 01, 2020 9:40pm 11.8 g/dL 10.7-15.4 [facility], [address] [place] [address] 05008 Hemoglobin May 18, 2020 6:17am 10.9 g/dL 10.7-15.4 [facility], [address] [place] [address] 13134 Hemoglobin March 25, 2020 8:11am 11.5 g/dL 10.7-15.4 [facility], [address] [place] [address] 82324 Hemoglobin March 11, 2020 12:14pm 12.4 g/dL 10.7-15.4 [facility], [address] [place] [address] 05675 Hemoglobin March 02, 2020 11:00am 12.1 g/dL 10.7-15.4 [facility], [address] [place] [address] 39736 Hemoglobin February 26, 2020 10:02am 13.0 g/dL 10.7-15.4 [facility], [address] [place] [address] 74588 Hemoglobin February 20, 2020 8:35am 13.4 g/dL 10.7-15.4 [facility], [address] [place] [address] [id number] Hematocrit September 23, 2020 8:05pm 37.8 % 37-47 [facility], [address] [place] [address] 55870 Hematocrit September 09, 2020 11:50pm 35.9 % 37-47 [facility], [address] [place] [address] 98048 Hematocrit September 05, 2020 12:03pm 34.8 % 37-47 [facility], [address] [place] [address] 02484 Hematocrit August 30, 2020 8:15pm 34.4 % 37-47 [facility], [address] [place] [address] 92872 Hematocrit August 09, 2020 7:35pm 36.1 % 37-47 [facility], [address] [place] [address] 60731 Hematocrit August 14, 2020 9:31am 36.3 % 37-47 [facility], [address] [place] [address] 53573 Hematocrit August 03, 2020 2:35pm 36.1 % 37-47 [facility], [address] [place] [address] 19419 Hematocrit July 01, 2020 9:40pm 36.6 % 37-47 [facility], [address] [place] [address] 15091 Hematocrit May 18, 2020 6:17am 34.1 % 37-47 [facility], [address] [place] [address] 93236 Hematocrit March 25, 2020 8:11am 34.7 % 37-47 [facility], [address] [place] [address] 18964 Hematocrit March 11, 2020 12:14pm 37.2 % 37-47 [facility], [address] [place] [address] 84136 Hematocrit March 02, 2020 11:00am 36.9 % 37-47 [facility], [address] [place] [address] 52656 Hematocrit February 26, 2020 10:02am 39.4 % 37-47 [facility], [address] [place] [address] 69008 Hematocrit February 20, 2020 8:35am 41.0 % 37-47 [facility], [address] [place] [address] 69571 Mean Corpuscular Volume September 8:05pm 80.9 fl 80-96 [facility], [address] [place] [address] 57111 Mean Corpuscular Volume August 11:50pm 80.0 fl 80-96 [facility], [address] [place] [address] 87542 Mean Corpuscular Volume August 12:03pm 79.5 fl 80-96 [facility], [address] [place] [address] 83756 Mean Corpuscular Volume August 30, 2020 8:15pm 80.8 fl 80-96 [facility], [address] [place] [address] 48768 Mean Corpuscular Volume July h2019 7:35pm 80.4 fl 80-96 [facility], [address] [place] [address] 40824 Mean Corpuscular Volume July d2019 9:31am 79.4 fl 80-96 [facility], [address] [place] [address] 56507 Mean Corpuscular Volume July h2019 2:35pm 80.8 fl 80-96 [facility], [address] [place] [address] 47934 Mean Corpuscular Volume June 9:40pm 81.2 fl 80-96 [facility], [address] [place] [address] 85580 Mean Corpuscular Volume May 182019 6:17am 83.2 fl 80-96 [facility], [address] [place] [address] 56458 Mean Corpuscular Volume March 25, 2020 8:11am 81.6 fl 80-96 [facility], [address] [place] [address] 31772 Mean Corpuscular Volume March 11, 020 12:14pm 81.2 fl 80-96 [facility], [address] [place] [address] 54639 Mean Corpuscular Volume March 02, 020 11:00am 81.6 fl 80-96 [facility], [address] [place] [address] 51975 Mean Corpuscular Volume February 25 10:02am 81.4 fl 80-96 [facility], [address] [place] [address] 83322 Mean Corpuscular Volume February 19, 020 8:35am 81.7 fl 80-96 [facility], [address] [place] [address] 81799 Mean Corpuscular Hemoglobin September 23, 2020 8:05pm 25.5 pg 27-31 [facility], [address] [place] [address] 55955 Mean Corpuscular Hemoglobin September 09, 2020 11:50pm 25.4 pg 27-31 [facility], [address] [place] [address] 83480 Mean Corpuscular Hemoglobin September 05, 2020 12:03pm 24.7 pg 27-31 [facility], [address] [place] [address] 76545 Mean Corpuscular Hemoglobin August 30, 2020 8:15pm 24.6 pg 27-31 [facility], [address] [place] [address] 04088 Mean Corpuscular Hemoglobin August 09, 2020 7:35pm 25.4 pg 27-31 [facility], [address] [place] [address] 82467 Mean Corpuscular Hemoglobin August 14, 2020 9:31am 24.9 pg 27-31 [facility], [address] [place] [address] 24511 Mean Corpuscular Hemoglobin August 03, 2020 2:35pm 25.7 pg 27-31 [facility], [address] [place] [address] 73748 Mean Corpuscular Hemoglobin July 01, 2020 9:40pm 26.2 pg 27-31 [facility], [address] [place] [address] 76732 Mean Corpuscular Hemoglobin 2019 6:17am 26.6 pg 27-31 [facility], [address] [place] [address] 96773 Mean Corpuscular Hemoglobin March 252019 8:11am 27.1 pg 27-31 [facility], [address] [place] [address] 21215 Mean Corpuscular Hemoglobin February 12:14pm 27.1 pg 27-31 [facility], [address] [place] [address] 01909 Mean Corpuscular Hemoglobin February h2019 11:00am 26.8 pg 27-31 [facility], [address] [place] [address] 43642 Mean Corpuscular Hemoglobin February 10:02am 26.9 pg 27-31 [facility], [address] [place] [address] 56006 Mean Corpuscular Hemoglobin January 8:35am 26.7 pg 27-31 [facility], [address] [place] [address] 37646 Mean Corpuscular Hemoglobin Concent September 23, 2020 8:05pm 31.5 g/dl [address] [place] [address] [facility], [address] [place] [address] 77186 Mean Corpuscular Hemoglobin Concent September 09, 2020 11:50pm 31.8 g/dl [address] [place] [address] [facility]ATORY, [address] [place] [address] 26185 Mean Corpuscular Hemoglobin Concent September 05, 2020 12:03pm 31.0 g/dl [address] [place] [address] [facility]ATORY, [address] [place] [address] 14116 Mean Corpuscular Hemoglobin Concent August 30, 2020 8:15pm 30.5 g/dl [address] [place] [address] LABORATORY, [address] [place] [address] 10385 Mean Corpuscular Hemoglobin Concent August 09, 2020 7:35pm 31.6 g/dl [address] [place] [address] [facility]ORATORY, [address] [place] [address] 61398 Mean Corpuscular Hemoglobin Concent August 14, 2020 9:31am 31.4 g/dl [address] [place] [address] LABORATORY, [address] [place] [address] 19901 Mean Corpuscular Hemoglobin Concent August 03, 2020 2:35pm 31.9 g/dl [address] [place] [address] [facility]ORATORY, [address] [place] [address] 83293 Mean Corpuscular Hemoglobin Concent July 01, 2020 9:40pm 32.2 g/dl [address] [place] [address] LABORATORY, [address] [place] [address] 42187 Mean Corpuscular Hemoglobin Concent May 18, 2020 6:17am 32.0 g/dl [address] [place] [address] [facility]ORATORY, [address] [place] [address] 97692 Mean Corpuscular Hemoglobin Concent March 25, 2020 8:11am 33.1 g/dl [address] [place] [address] [facility]ORATORY, [address] [place] [address] 34919 Mean Corpuscular Hemoglobin Concent March 11, 2020 12:14pm 33.3 g/dl [address] [place] [address] [facility]ORATORY, [address] [place] [address] 17315 Mean Corpuscular Hemoglobin Concent March 02, 2020 11:00am 32.8 g/dl [facility], [address] [place] [address] 51532 Mean Corpuscular Hemoglobin Concent February 26, 2020 10:02am 33.0 g/dl [facility], [address] [place] [address] 42902 Mean Corpuscular Hemoglobin Concent February 20, 2020 8:35am 32.7 g/dl [facility], [address] [place] [address] 06849 Red Cell Distribution Width September 23, 2020 8:05pm 16 % 11-15 [facility], [address] [place] [address] 47884 Red Cell Distribution Width September 09, 2020 11:50pm 16 % 11-15 [facility], [address] [place] [address] 75512 Red Cell Distribution Width September 05, 2020 12:03pm 16 % 11-15 [facility], [address] [place] [address] 58645 Red Cell Distribution Width August 30, 2020 8:15pm 15 % 11-15 [facility], [address] [place] [address] 05469 Red Cell Distribution Width August 09, 2020 7:35pm 14 % 11-15 [facility], [address] [place] [address] 70675 Red Cell Distribution Width August 14, 2020 9:31am 15 % 11-15 [facility], [address] [place] [address] 60194 Red Cell Distribution Width August 03, 2020 2:35pm 14 % 11-15 [facility], [address] [place] [address] 75968 Red Cell Distribution Width July 01, 2020 9:40pm 14 % 11-15 [facility], [address] [place] [address] 80056 Red Cell Distribution Width 2019 6:17am 14 % 11-15 [facility], [address] [place] [address] 04219 Red Cell Distribution Width March 252019 8:11am 15 % 11-15 [facility], [address] [place] [address] 10243 Red Cell Distribution Width February 12:14pm 15 % 11-15 [facility], [address] [place] [address] 05514 Red Cell Distribution Width February 11:00am 14 % 11-15 [facility], [address] [place] [address] Red Cell Distribution Width February 10:02am 14 % 11-15 [facility], [address] [place] [address] Red Cell Distribution Width January 8:35am 15 % 11-15 [facility], [address] [place] [address] 16389 Platelet Count September 23, 2020 8:05pm 404 10e3/ul 130-472 [facility], [address] [place] [address] Platelet Count September 09, 2020 11:50pm 392 10e3/ul 130-472 [facility], [address] [place] [address] 80761 Platelet Count September 05, 2020 12:03pm 417 10e3/ul 130-472 [facility], [address] [place] [address] Platelet Count August 30, 2020 8:15pm 422 10e3/ul 130-472 [facility], [address] [place] [address] Platelet Count August 09, 2020 7:35pm 423 10e3/ul 130-472 [facility], [address] [place] [address] Platelet Count August 14, 2020 9:31am 429 10e3/ul 130-472 [facility], [address] [place] [address] Platelet Count August 03, 2020 2:35pm 372 10e3/ul 130-472 [facility], [address] [place] [address] 34310 Platelet Count July 01, 2020 9:40pm 392 10e3/ul 130-472 [facility], [address] [place] [address] 08124 Platelet Count May 18, 2020 6:17am 332 10e3/ul 130-472 [facility], [address] [place] [address] 42243 Platelet Count March 25, 2020 8:11am 395 10e3/ul 130-472 [facility], [address] [place] [address] 29186 Platelet Count March 11, 2020 12:14pm 460 10e3/ul 130-472 [facility], [address] [place] [address] 14965 Platelet Count March 02, 2020 11:00am 410 10e3/ul 130-472 [facility], [address] [place] [address] Platelet Count February 26, 2020 10:02am 436 10e3/ul 130-472 [facility], [address] [place] [address] Platelet Count February 20, 2020 8:35am 479 10e3/ul 130-472 [facility], [address] [place] [address] 54586 Mean Platelet Volume September 23, 021 8:05pm 9.5 fl 9.1-13.1 [facility], [address] [place] [address] Mean Platelet Volume September 09, 021 11:50pm 8.6 fl 9.1-13.1 [facility], [address] [place] [address] Mean Platelet Volume September 05, 021 12:03pm 8.6 fl 9.1-13.1 [facility], [address] [place] [address] 33142 Mean Platelet Volume August 30 8:15pm 8.7 fl 9.1-13.1 [facility], [address] [place] [address] Mean Platelet Volume August 09, 2020 7:35pm 8.9 fl 9.1-13.1 [facility], [address] [place] [address] 93156 Mean Platelet Volume August 14, 2020 9:31am 8.9 fl 9.1-13.1 [facility], [address] [place] [address] 30906 Mean Platelet Volume August 03, 2020 2:35pm 9.0 fl 9.1-13.1 [facility], [address] [place] [address] 90083 Mean Platelet Volume July 01 020 9:40pm 8.6 fl 9.1-13.1 [facility], [address] [place] [address] Mean Platelet Volume May 18, 2020 6:17am 8.6 fl 9.1-13.1 [facility], [address] [place] [address] 70439 Mean Platelet Volume March 25 0 8:11am 8.3 fl 9.1-13.1 [facility], [address] [place] [address] Mean Platelet Volume March 11, 2020 12:14pm 8.4 fl 9.1-13.1 [facility], [address] [place] [address] Mean Platelet Volume March 02, 2020 11:00am 8.6 fl 9.1-13.1 [facility], [address] [place] [address] 139[address] Mean Platelet Volume February 26, 2020 10:02a m 8.7 fl 9.1-13.1 [facility], [address] [place] [address] [id number] Mean Platelet Volume February 20, 2020 8:35a m 8.7 fl 9.1-13.1 [facility], [address] [place] [address] 15992 Neutrophils (%) (Auto) September 23, 2020 8:05pm 67.0 % [address] [place] [address] LABORATORY, [address] [place] [address] 41384 Neutrophils (%) (Auto) September 09, 2020 11:50pm 66.3 % [address] [facility], [address] [place] [address] 80687 Neutrophils (%) (Auto) September 05, 2020 12:03pm 74.5 % [address] [place] [address] LABORATORY, [address] [place] [address] 54487 Neutrophils (%) (Auto) August 30, 2020 8:15pm 69.3 % [address] [place] [address] LABORATORY, [address] [place] [address] 15852 Neutrophils (%) (Auto) July 7:35pm 71.3 % [address] [facility], [address] [place] [address] 09585 Neutrophils (%) (Auto) July 9:31am 63.7 % [address] [place] [address] LABORATORY, [address] [place] [address] 87148 Neutrophils (%) (Auto) July 2:35pm 68.8 % [address] [facility], [address] [place] [address] 78603 Neutrophils (%) (Auto) July 01, 2020 9:40pm 66.3 % [address] [place] [address] LABORATORY, [address] [place] [address] 20005 Neutrophils (%) (Auto) April 6:17am 66.1 % [address] [facility], [address] [place] [address] 80756 Neutrophils (%) (Auto) March 25 8:11am 58.4 % [address] [place] [address] LABORATORY, [address] [place] [address] 95833 Neutrophils (%) (Auto) March 11 12:14pm 72.2 % [address] [place] [address] LABORATORY, [address] [place] [address] 28697 Neutrophils (%) (Auto) March 02 11:00am 65.4 % [address] [place] [address] LABORATORY, [address] [place] [address] 28176 Neutrophils (%) (Auto) February 25 0 10:02am 62.6 % [address] [place] [address] LABORATORY, [address] [place] [address] 66434 Neutrophils (%) (Auto) February 19 8:35am 62.4 % [address] [place] [address] LABORATORY, [address] [place] [address] 88229 Absolute Neutrophil September 23 8:05pm 6.8 # 1.7-7.6 [facility], [address] [place] [address] Absolute Neutrophil September 09 11:50pm 7.0 # 1.7-7.6 [facility], [address] [place] [address] 58065 Absolute Neutrophil September 05 12:03pm 7.7 # 1.7-7.6 [facility], [address] [place] [address] 25530 Absolute Neutrophil August 30 8:15pm 7.8 # 1.7-7.6 [facility], [address] [place] [address] 77768 Absolute Neutrophil August 09, 020 7:35pm 7.0 # 1.7-7.6 [facility], [address] [place] [address] Absolute Neutrophil August 14, 020 9:31am 6.2 # 1.7-7.6 [facility], [address] [place] [address] 64091 Absolute Neutrophil August 03, 2 020 2:35pm 5.9 # 1.7-7.6 [facility], [address] [place] [address] 70346 Absolute Neutrophil July 01 9:40pm 7.5 # 1.7-7.6 [facility], [address] [place] [address] 59142 Absolute Neutrophil May 18, 2020 6:17am 6.1 # 1.7-7.6 [facility], [address] [place] [address] 73357 Absolute Neutrophil March 25, 2020 8:11a m 6.3 # 1.7-7.6 [facility], [address] [place] [address] 85804 Absolute Neutrophil March 11, 2020 12:14p m 8.1 # 1.7-7.6 [facility], [address] [place] [address] 67399 Absolute Neutrophil March 02, 2020 11:00a m 6.7 # 1.7-7.6 [facility], [address] [place] [address] 74844 Absolute Neutrophil February 26, 2020 10:02am 6.1 # 1.7-7.6 [facility], [address] [place] [address] 38262 Absolute Neutrophil February 20, 2020 8:35am 5.5 # 1.7-7.6 [facility], [address] [place] [address] 20663 Lymphocytes (%) (Auto) September 23, 2020 8:05pm 23.3 % 1446 [facility], [address] [place] [address] 11316 Lymphocytes (%) (Auto) September 09, 2020 11:50pm 23.0 % [address] LABORATORY, [address] [place] [address] 67868 Lymphocytes (%) (Auto) September 05, 2020 12:03pm 17.6 % 1446 [facility], [address] [place] [address] 98689 Lymphocytes (%) (Auto) August 30, 2020 8:15pm 20.7 % [address] LABORATORY, [address] [place] [address] 53866 Lymphocytes (%) (Auto) July 7:35pm 19.4 % [address] LABORATORY, [address] [place] [address] 10830 Lymphocytes (%) (Auto) July 9:31am 25.9 % 14-46 [facility], [address] [place] [address] 52159 Lymphocytes (%) (Auto) July 2:35pm 20.2 % 1446 [facility], [address] [place] [address] 98792 Lymphocytes (%) (Auto) July 01, 2020 9:40pm 21.4 % 1446 [facility], [address] [place] [address] 48399 Lymphocytes (%) (Auto) April 6:17am 22.8 % 14-46 [facility], [address] [place] [address] 41840 Lymphocytes (%) (Auto) March 25, 020 8:11am 30.4 % 14-46 [facility], [address] [place] [address] 71574 Lymphocytes (%) (Auto) March 11 12:14pm 19.0 % 14-46 [facility], [address] [place] [address] 02611 Lymphocytes (%) (Auto) March 02 11:00am 23.6 % 14-46 [facility], [address] [place] [address] 45299 Lymphocytes (%) (Auto) February 25 10:02am 25.4 % 14-46 [facility], [address] [place] [address] 83586 Lymphocytes (%) (Auto) February 19 8:35am 26.5 % 14-46 [facility], [address] [place] [address] 80960 Lymphocytes # (Auto) September 23, 021 8:05pm 2.4 # 0.6-4.6 [facility], [address] [place] [address] 99492 Lymphocytes # (Auto) September 09, 021 11:50pm 2.4 # 0.6-4.6 [facility], [address] [place] [address] 63725 Lymphocytes # (Auto) September 05, 021 12:03pm 1.8 # 0.6-4.6 [facility], [address] [place] [address] 09532 Lymphocytes # (Auto) August 30 8:15pm 2.3 # 0.6-4.6 [facility]ORY, [address] [place] [address] 30242 Lymphocytes # (Auto) August 09, 2020 7:35pm 1.9 # 0.6-4.6 [facility], [address] [place] [address] 99296 Lymphocytes # (Auto) August 14, 2020 9:31am 2.5 # 0.6-4.6 [facility], [address] [place] [address] 10311 Lymphocytes # (Auto) August 03, 2020 2:35pm 1.7 # 0.6-4.6 [facility], [address] [place] [address] 63766 Lymphocytes # (Auto) July 01, 020 9:40pm 2.4 # 0.6-4.6 [facility], [address] [place] [address] 67237 Lymphocytes # (Auto) May 18, 2020 6:17am 2.1 # 0.6-4.6 [facility], [address] [place] [address] 84293 Lymphocytes # (Auto) March 25 0 8:11am 3.3 # 0.6-4.6 [facility], [address] [place] [address] 12334 Lymphocytes # (Auto) March 11, 2020 12:14pm 2.1 # 0.6-4.6 [facility], [address] [place] [address] 10241 Lymphocytes # (Auto) March 02, 2020 11:00am 2.4 # 0.6-4.6 [facility], [address] [place] [address] 93983 Lymphocytes # (Auto) February 26, 2020 10:02a m 2.5 # 0.6-4.6 [facility], [address] [place] [address] 32669 Lymphocytes # (Auto) February 20, 2020 8:35a m 2.3 # 0.6-4.6 [facility], [address] [place] [address] 36297 Monocytes (%) (Auto) September 23, 021 8:05pm 6.9 % 4-12 [facility]ORY, [address] [place] [address] 30923 Monocytes (%) (Auto) September 09, 021 11:50pm 7.1 % 4-12 [facility], [address] [place] [address] 41576 Monocytes (%) (Auto) September 05, 2 021 12:03pm 5.4 % 4-12 [facility], [address] [place] [address] 28969 Monocytes (%) (Auto) August 30 8:15pm 6.8 % 4-12 [facility], [address] [place] [address] 61603 Monocytes (%) (Auto) August 09, 2020 7:35pm 7.0 % 4-12 [facility], [address] [place] [address] 72020 Monocytes (%) (Auto) August 14, 2020 9:31am 6.9 % 4-12 [facility], [address] [place] [address] 51369 Monocytes (%) (Auto) August 03, 2020 2:35pm 8.3 % 4-12 [facility], [address] [place] [address] 10887 Monocytes (%) (Auto) July 01 9:40pm 8.9 % 412 [facility]ORY, [address] [place] [address] 52163 Monocytes (%) (Auto) May 18, 2020 6:17am 8.7 % 412 [facility], [address] [place] [address] 51905 Monocytes (%) (Auto) March 25 0 8:11am 7.7 % 412 [facility], [address] [place] [address] 75841 Monocytes (%) (Auto) March 11, 2020 12:14pm 5.5 % 412 [facility], [address] [place] [address] 82678 Monocytes (%) (Auto) March 02, 2020 11:00am 7.8 % [address] LABORATORY, [address] [place] [address] 87592 Monocytes (%) (Auto) February 26, 2020 10:02a m 8.2 % 412 [facility], [address] [place] [address] 07562 Monocytes (%) (Auto) February 20, 2020 8:35a m 8.0 % 412 [facility], [address] [place] [address] 83772 Monocytes # September 23, 2020 8:05pm 0.7 # 0.2-1.2 [facility], [address] [place] [address] 38349 Monocytes # September 09, 2020 11:50pm 0.8 # 0.2-1.2 [facility], [address] [place] [address] 09726 Monocytes # September 05, 2020 12:03pm 0.6 # 0.2-1.2 [facility], [address] [place] [address] 07507 Monocytes # August 30, 2020 8:15pm 0.8 # 0.2-1.2 [facility], [address] [place] [address] 22708 Monocytes # August 09, 2020 7:35pm 0.7 # 0.2-1.2 [facility], [address] [place] [address] 72674 Monocytes # August 14, 2020 9:31am 0.7 # 0.2-1.2 [facility], [address] [place] [address] 52630 Monocytes # August 03, 2020 2:35pm 0.7 # 0.2-1.2 [facility]ATORY, [address] [place] [address] 38027 Monocytes # July 01, 2020 9:40pm 1.0 # 0.2-1.2 [facility]ORY, [address] [place] [address] 46975 Monocytes # May 18, 2020 6:17am 0.8 # 0.2-1.2 [facility]ORY, [address] [place] [address] 12071 Monocytes # March 25, 2020 8:11am 0.8 # 0.2-1.2 [facility]ORY, [address] [place] [address] 64578 Monocytes # March 11, 2020 12:14pm 0.6 # 0.2-1.2 [facility]ORY, [address] [place] [address] 68677 Monocytes # March 02, 2020 11:00am 0.8 # 0.2-1.2 [facility], [address] [place] [address] 52938 Monocytes # February 26, 2020 10:02am 0.8 # 0.2-1.2 [facility]AT[facility], [address] [place] [address] 39985 Monocytes # February 20, 2020 8:35am 0.7 # 0.2-1.2 [facility], [address] [place] [address] 47969 Eosinophils (%) (Auto) September 23, 2020 8:05pm 2.2 % 0-7 [facility], [address] [place] [address] 29472 Eosinophils (%) (Auto) September 09, 2020 11:50pm 2.9 % 0-7 [facility]ATORY, [address] [place] [address] 14923 Eosinophils (%) (Auto) September 05, 2020 12:03pm 1.8 % 0-7 [facility]AT[facility], [address] [place] [address] 50320 Eosinophils (%) (Auto) August 30, 2020 8:15pm 2.4 % 0-7 [facility], [address] [place] [address] 17082 Eosinophils (%) (Auto) July 7:35pm 1.8 % 0-7 [facility], [address] [place] [address] 25153 Eosinophils (%) (Auto) July 9:31am 3.0 % 0-7 [facility], [address] [place] [address] 46237 Eosinophils (%) (Auto) July 2:35pm 2.2 % 0-7 [facility], [address] [place] [address] 37690 Eosinophils (%) (Auto) July 01, 2020 9:40pm 2.7 % 0-7 [facility], [address] [place] [address] 98332 Eosinophils (%) (Auto) April 6:17am 1.9 % 0-7 [facility], [address] [place] [address] 01358 Eosinophils (%) (Auto) March 25 8:11am 2.7 % 0-7 [facility], [address] [place] [address] 50948 Eosinophils (%) (Auto) March 11 12:14pm 2.5 % 0-7 [facility], [address] [place] [address] 52560 Eosinophils (%) (Auto) March 02 11:00am 2.4 % 0-7 [facility], [address] [place] [address] 05674 Eosinophils (%) (Auto) February 25 0 10:02am 3.1 % 0-7 [facility], [address] [place] [address] 53049 Eosinophils (%) (Auto) February 19 8:35am 2.6 % 0-7 [facility], [address] [place] [address] 52015 Absolute Eosinophils (CBC) September 23, 2020 8:05pm 0.2 # 0.0-0.5 [facility], [address] [place] [address] 34771 Absolute Eosinophils (CBC) August 232020 11:50pm 0.3 # 0.0-0.5 [facility], [address] [place] [address] 30997 Absolute Eosinophils (CBC) August 232020 12:03pm 0.2 # 0.0-0.5 [facility], [address] [place] [address] 79713 Absolute Eosinophils (CBC) August 302020 8:15pm 0.3 # 0.0-0.5 [facility], [address] [place] [address] 99786 Absolute Eosinophils (CBC) August 09, 2020 7:35pm 0.2 # 0.0-0.5 [facility], [address] [place] [address] 84087 Absolute Eosinophils (CBC) August 14, 2020 9:31am 0.3 # 0.0-0.5 [facility], [address] [place] [address] Absolute Eosinophils (CBC) August 03, 2020 2:35pm 0.2 # 0.0-0.5 [facility], [address] [place] [address] Absolute Eosinophils (CBC) July 01, 2020 9:40pm 0.3 # 0.0-0.5 [facility], [address] [place] [address] Absolute Eosinophils (CBC) May 18, 2020 6:17am 0.2 # 0.0-0.5 [facility], [address] [place] [address] Absolute Eosinophils (CBC) March 8:11am 0.3 # 0.0-0.5 [facility], [address] [place] [address] Absolute Eosinophils (CBC) February 12:14pm 0.3 # 0.0-0.5 [facility], [address] [place] [address] Absolute Eosinophils (CBC) February 11:00am 0.3 # 0.0-0.5 [facility], [address] [place] [address] Absolute Eosinophils (CBC) February 26, 2020 10:02am 0.3 # 0.0-0.5 [facility], [address] [place] [address] Absolute Eosinophils (CBC) January 8:35am 0.2 # 0.0-0.5 [facility], [address] [place] [address] 36358 Basophils (%) (Auto) September 23 8:05pm 0.4 % 0.4-1.3 [facility], [address] [place] [address] 52372 Basophils (%) (Auto) September 09 11:50pm 0.3 % 0.4-1.3 [facility], [address] [place] [address] 09027 Basophils (%) (Auto) September 05 021 12:03pm 0.4 % 0.4-1.3 [facility], [address] [place] [address] 09915 Basophils (%) (Auto) August 30 8:15pm 0.4 % 0.4-1.3 [facility], [address] [place] [address] 70382 Basophils (%) (Auto) August 09, 2020 7:35pm 0.3 % 0.4-1.3 [facility], [address] [place] [address] 01764 Basophils (%) (Auto) August 14, 2020 9:31am 0.3 % 0.4-1.3 [facility], [address] [place] [address] 86314 Basophils (%) (Auto) August 03, 2020 2:35pm 0.3 % 0.4-1.3 [facility], [address] [place] [address] 55681 Basophils (%) (Auto) July 01 9:40pm 0.4 % 0.4-1.3 [facility], [address] [place] [address] 80755 Basophils (%) (Auto) May 18, 2020 6:17am 0.3 % 0.4-1.3 [facility], [address] [place] [address] 36065 Basophils (%) (Auto) March 25 0 8:11am 0.5 % 0.4-1.3 [facility], [address] [place] [address] 21397 Basophils (%) (Auto) March 11, 2020 12:14pm 0.4 % 0.4-1.3 [facility], [address] [place] [address] 14242 Basophils (%) (Auto) March 02, 2020 11:00am 0.5 % 0.4-1.3 [facility], [address] [place] [address] 59024 Basophils (%) (Auto) February 26, 2020 10:02a m 0.4 % 0.4-1.3 [facility], [address] [place] [address] 87450 Basophils (%) (Auto) February 20, 2020 8:35a m 0.3 % 0.4-1.3 [facility], [address] [place] [address] 08051 Absolute Basophils (CBC) September 8:05pm 0.0 # 0.0-0.2 [facility], [address] [place] [address] 18008 Absolute Basophils (CBC) August 18t h2020 11:50pm 0.0 # 0.0-0.2 [facility], [address] [place] [address] 12675 Absolute Basophils (CBC) August h2020 12:03pm 0.0 # 0.0-0.2 [facility], [address] [place] [address] 43498 Absolute Basophils (CBC) August 8:15pm 0.1 # 0.0-0.2 [facility], [address] [place] [address] 11137 Absolute Basophils (CBC) August 092019 7:35pm 0.0 # 0.0-0.2 [facility], [address] [place] [address] 11663 Absolute Basophils (CBC) August 142019 9:31am 0.0 # 0.0-0.2 [facility], [address] [place] [address] 08580 Absolute Basophils (CBC) August 032019 2:35pm 0.0 # 0.0-0.2 [facility], [address] [place] [address] 87649 Absolute Basophils (CBC) June 9:40pm 0.0 # 0.0-0.2 [facility], [address] [place] [address] 66981 Absolute Basophils (CBC) April 242019 6:17am 0.0 # 0.0-0.2 [facility], [address] [place] [address] 31989 Absolute Basophils (CBC) March 25, 2020 8:11am 0.1 # 0.0-0.2 [facility], [address] [place] [address] 27138 Absolute Basophils (CBC) March 11, 2020 12:14pm 0.0 # 0.0-0.2 [facility], [address] [place] [address] 75991 Absolute Basophils (CBC) March 02, 2020 11:00am 0.1 # 0.0-0.2 [facility], [address] [place] [address] 08807 Absolute Basophils (CBC) February 25 10:02am 0.0 # 0.0-0.2 [facility], [address] [place] [address] 60703 Absolute Basophils (CBC) February 20, 2020 8:35am 0.0 # 0.0-0.2 [facility], [address] [place] [address] 41898 Immature Granulocyte % (Auto) Februa ry 2020 8:05pm 0.2 % 0-2 [facility], [address] [place] [address] 50100 Immature Granulocyte % (Auto) Januar y 2020 11:50pm 0.4 % 0-2 [facility], [address] [place] [address] 64934 Immature Granulocyte % (Auto) Januar y 2020 12:03pm 0.3 % 0-2 [facility], [address] [place] [address] 71111 Immature Granulocyte % (Auto) Auguar y 2020 8:15pm 0.4 % 0-2 [facility], [address] [place] [address] 93888 Immature Granulocyte % (Auto) Decemb er 2019 7:35pm 0.2 % 0-2 [facility], [address] [place] [address] 12950 Immature Granulocyte % (Auto) Decemb er 2019 9:31am 0.2 % 0-2 [facility], [address] [place] [address] 35753 Immature Granulocyte % (Auto) Decemb er 2019 2:35pm 0.2 % 0-2 [facility], [address] [place] [address] 21138 Immature Granulocyte % (Auto) [facility] er 2019 9:40pm 0.3 % 0-2 [facility], [address] [place] [address] 93065 Immature Granulocyte % (Auto) Sept marci 2019 6:17am 0.2 % 0-2 [facility], [address] [place] [address] 42897 Immature Granulocyte % (Auto) March 25, 2020 8:11am 0.3 % 0-2 [facility], [address] [place] [address] 41252 Immature Granulocyte % (Auto) February 212019 12:14pm 0.4 % 0-2 [facility], [address] [place] [address] 93708 Immature Granulocyte % (Auto) February 202019 11:00am 0.3 % 0-2 [facility], [address] [place] [address] Immature Granulocyte % (Auto) February 252019 10:02am 0.3 % 0-2 [facility], [address] [place] [address] Immature Granulocyte % (Auto) January 232019 8:35am 0.2 % 0-2 [facility], [address] [place] [address] Absolute Immature Granulocyte (auto September 23, 2020 8:05pm 0.0 # 0-0.1 [facility], [address] [place] [address] Absolute Immature Granulocyte (auto September 09, 2020 11:50pm 0.0 # 0-0.1 [facility], [address] [place] [address] Absolute Immature Granulocyte (auto September 05, 2020 12:03pm 0.0 # 0-0.1 [facility], [address] [place] [address] Absolute Immature Granulocyte (auto August 30, 2020 8:15pm 0.0 # 0-0.1 [facility], [address] [place] [address] Absolute Immature Granulocyte (auto August 09, 2020 7:35pm 0.0 # 0-0.1 [facility], [address] [place] [address] Absolute Immature Granulocyte (auto August 14, 2020 9:31am 0.0 # 0-0.1 [facility], [address] [place] [address] Absolute Immature Granulocyte (auto August 03, 2020 2:35pm 0.0 # 0-0.1 [facility], [address] [place] [address] Absolute Immature Granulocyte (auto July 01, 2020 9:40pm 0.0 # 0-0.1 [facility], [address] [place] [address] Absolute Immature Granulocyte (auto May 18, 2020 6:17am 0.0 # 0-0.1 [facility], [address] [place] [address] Absolute Immature Granulocyte (auto March 25, 2020 8:11am 0.0 # 0-0.1 [facility], [address] [place] [address] Absolute Immature Granulocyte (auto March 11, 2020 12:14pm 0.0 # 0-0.1 [facility], [address] [place] [id number] Absolute Immature Granulocyte (auto March 02, 2020 11:00am 0.0 # 0-0.1 [facility], [address] [place] [address] Absolute Immature Granulocyte (auto February 26, 2020 10:02am 0.0 # 0-0.1 [facility], [address] [place] [id number] Absolute Immature Granulocyte (auto February 20, 2020 8:35am 0.0 # 0-0.1 [facility], [address] [place] [address] [id number] Add Manual Differential September 8:05pm No [facility], [address] [place] [address] [id number] Add Manual Differential August 11:50pm No [facility], [address] [place] [address] [id number] Add Manual Differential August 12:03pm No [facility], [address] [place] [address] 21340 Add Manual Differential August 30, 2020 8:15pm No [facility], [address] [place] [address] [id number] Add Manual Differential July 7:35pm No [facility], [address] [place] [address] 69832 Add Manual Differential July d2019 9:31am No [facility], [address] [place] [address] 11806 Add Manual Differential July 2:35pm No [facility], [address] [place] [address] 32630 Add Manual Differential June 9:40pm No [facility], [address] [place] [address] 37762 Add Manual Differential May 182019 6:17am No [facility], [address] [place] [address] 51537 Add Manual Differential March 25, 2020 8:11am No [facility], [address] [place] [address] 39092 Add Manual Differential March 11 12:14pm No [facility], [address] [place] [address] 64097 Add Manual Differential March 02 020 11:00am No [facility], [address] [place] [address] 62255 Add Manual Differential February 25 10:02am No [facility], [address] [place] [address] 20252 Add Manual Differential February 19 020 8:35am No [facility] [facility], [address] [place] [address] 19854 Differential Total Cells Counted Sep 2019 7:20pm 100 [facility], [address] [place] [address] 42812 Neutrophils (Manual) May 17, 2020 7:20pm 77 % 41-77 [facility], [address] [place] [address] 27313 Band Neutrophils May 17 0 7:20pm 3 % 0-5 [facility], [address] [place] [address] 32661 Lymphocytes (Manual) May 17, 2020 7:20pm 17 % 14-46 [facility], [address] [place] [address] 21384 Monocytes (Manual) May 17 020 7:20pm 3 % 4-12 [facility], [address] [place] [address] 75695 Platelet Estimate May 17 7:20pm Appears normal NORMAL [facility], [address] [place] [address] 74760 RBC Morphology 2 May 17 0 7:20pm Appears normal NORMAL [facility], [address] [place] [address] 76874 Urine Color May 18, 2020 12:15am Yellow [facility], [address] [place] [address] 36081 Urine Color February 20, 2020 8:40am Yellow [facility], [address] [place] [address] 90085 Urine Color September 23, 2020 7:46pm Yellow [facility], [address] [place] [address] 93143 Urine Color September 09, 2020 10:50pm Brown [facility], [address] [place] [address] 80706 Urine Color August 30, 2020 8:15pm [place] [facility], [address] [place] [address] 43553 Urine Color August 09, 2020 8:06pm Yellow [facility], [address] [place] [address] 68317 Urine Color August 03, 2020 2:50pm Yellow [facility], [address] [place] [address] 18090 Urine Color July 01, 2020 9:30pm Yellow [facility], [address] [place] [address] 15842 Urine Color March 25, 2020 8:05am Yellow [facility], [address] [place] [address] 80994 Urine Color March 11, 2020 11:00am Yellow [facility], [address] [place] [address] 54630 Urine Color March 05, 2020 2:29pm Yellow [facility], [address] [place] [address] 75731 Urine Color March 02, 2020 10:48am Yellow [facility], [address] [place] [address] 40315 Urine Appearance September 23, 2020 7:46pm Clear [facility], [address] [place] [address] 59213 Urine Appearance September 09, 2020 10:50p m Cloudy [facility], [address] [place] [address] 11841 Urine Appearance August 30, 2020 8:15pm Turbid [facility], [address] [place] [address] 62085 Urine Appearance August 09, 2020 8:06p m Clear [facility], [address] [place] [address] 96574 Urine Appearance August 03, 2020 2:50p m Clear [facility], [address] [place] [address] 89133 Urine Appearance July 01, 2020 9:30pm Cloudy [facility], [address] [place] [address] 16278 Urine Appearance May 18 12:15am Clear CLE[facility], [address] [place] [address] 55151 Urine Appearance March 25, 2020 8:05am Cloudy [facility], [address] [place] [address] 41726 Urine Appearance March 11, 2020 11:00am Cloudy [facility], [address] [place] [address] 17692 Urine Appearance March 05, 2020 2:29pm Cloudy CLEAR [facility], [address] [place] [address] 90984 Urine Appearance March 02, 2020 10:48am Cloudy [facility], [address] [place] [address] 46003 Urine Appearance February 20, 2020 8:40am Turbid [facility], [address] [place] [address] 40065 Urine pH September 23, 2020 7:46pm 6.0 [facility], [address] [place] [address] 29543 Urine pH September 09, 2020 10:50pm 5.5 [facility], [address] [place] [address] 93194 Urine pH August 30, 2020 8:15pm 6.5 [facility], [address] [place] [address] 96256 Urine pH August 09, 2020 8:06pm 6.5 [facility], [address] [place] [address] 11586 Urine pH August 03, 2020 2:50pm 7.5 [facility], [address] [place] [address] 24306 Urine pH July 01, 2020 9:30pm 6.0 [facility], [address] [place] [address] 71332 Urine pH May 18, 2020 12:15am 6.0 [facility], [address] [place] [address] 79818 Urine pH March 25, 2020 8:05am 5.5 [facility], [address] [place] [address] 60666 Urine pH March 11, 2020 11:00am 6.5 [facility], [address] [place] [address] 06649 Urine pH March 05, 2020 2:29pm 6.0 [facility], [address] [place] [address] 21635 Urine pH March 02, 2020 10:48am 5.5 [facility], [address] [place] [address] 09103 Urine pH February 20, 2020 8:40am 5.5 [facility], [address] [place] [address] 05460 Urine Specific [place] September 23, 2020 7:46pm 1.018 [facility], [address] [place] [address] 73659 Urine Specific [place] September 09, 2020 10:50pm 1.035 [facility], [address] [place] [address] 01552 Urine Specific [place] August 30, 2020 8:15pm 1.033 [facility], [address] [place] [address] 35559 Urine Specific [place] July 8:06pm 1.022 [facility], [address] [place] [address] 56372 Urine Specific [place] July 2:50pm 1.020 [facility], [address] [place] [address] 87891 Urine Specific [place] July 01, 2020 9:30pm 1.026 [facility], [address] [place] [address] 04024 Urine Specific [place] April 12:15am >1.045 [facility], [address] [place] [address] 74245 Urine Specific [place] March 25 8:05am 1.025 [facility], [address] [place] [address] Urine Specific [place] March 11 11:00am 1.025 [facility], [address] [place] [address] Urine Specific [place] March 05 2:29pm 1.021 [facility], [address] [place] [address] Urine Specific [place] March 02 10:48am 1.025 [facility], [address] [place] [address] Urine Specific [place] February 19 8:40am 1.023 [facility], [address] [place] [address] Urine Leukocyte Esterase April 242019 12:15am Negative NEGATIVE [facility], [address] [place] [address] Urine Leukocyte Esterase February 20, 2020 8:40am Moderate NEGATIVE [facility], [address] [place] [address] Urine Leukocyte Esterase September 7:46pm Trace NEGATIVE A Culture has been added to this specimen per established criteria [facility], [address] [place] [address] Urine Leukocyte Esterase August 10:50pm Small NEGATIVE A Culture has been added to this specimen per established criteria [facility], [address] [place] [address] Urine Leukocyte Esterase August 8:15pm Small NEGATIVE A Culture has been added to this specimen per established criteria [facility], [address] [place] [address] Urine Leukocyte Esterase August 092019 8:06pm Small NEGATIVE A Culture has been added to this specimen per established criteria [facility], [address] [place] [address] Urine Leukocyte Esterase August [id number] 2:50pm Small NEGATIVE A Culture has been added to this specimen per established criteria [facility], [address] [place] [address] Urine Leukocyte Esterase June 9:30pm Small NEGATIVE A Culture has been added to this specimen per established criteria [facility], [address] [place] [address] Urine Leukocyte Esterase March 25, 2020 8:05am Trace NEGATIVE A Culture has been added to this specimen per established criteria [facility], [address] [place] [address] Urine Leukocyte Esterase March 11, 2020 11:00am Trace NEGATIVE A Culture has been added to this specimen per established criteria [facility], [address] [place] [address] Urine Leukocyte Esterase March 05, 2020 2:29pm Trace NEGATIVE A Culture has been added to this specimen per established criteria [facility], [address] [place] [address] 26819 Urine Leukocyte Esterase March 02, 2020 10:48am Trace NEGATIVE A Culture has been added to this specimen per established criteria [facility], [address] [place] [address] 24293 Urine Nitrite May 18, 2020 12:15am Negative NEGATIVE [facility], [address] [place] [address] 64007 Urine Nitrite February 20, 2020 8:40am Negative NEGATIVE [facility], [address] [place] [address] 91307 Urine Nitrate September 23, 2020 7:46pm Negative NEGATIVE [facility], [address] [place] [address] 59846 Urine Nitrate September 09, 2020 10:50pm Positive NEGATIVE A Culture has been added to this specimen per established criteria [facility], [address] [place] [address] 87429 Urine Nitrate August 30, 2020 8:15pm Negative NEGATIVE [facility], [address] [place] [address] 15967 Urine Nitrate August 09, 2020 8:06pm Negative NEGATIVE [facility], [address] [place] [address] 06811 Urine Nitrate August 03, 2020 2:50pm Negative [facility], [address] [place] [address] 85240 Urine Nitrate July 01, 2020 9:30pm Negative [facility]GAT[facility], [address] [place] [address] 19064 Urine Nitrate March 25, 2020 8:05am Negative NEGATIVE [facility], [address] [place] [address] 46740 Urine Nitrate March 11, 2020 11:00am Negative NEGATIVE [facility], [address] [place] [address] 78522 Urine Nitrate March 05, 2020 2:29pm Negative NEGATIVE [facility], [address] [place] [address] 89270 Urine Nitrate March 02, 2020 10:48am Negative NEGATIVE [facility], [address] [place] [address] 90582 Urine Protein September 23, 2020 7:46pm Negative NEGATIVE [facility], [address] [place] [address] 13262 Urine Protein September 09, 2020 10:50pm 30 mg/dl NEGATIVE [facility], [address] [place] [address] 52304 Urine Protein August 30, 2020 8:15pm 30 mg/dl NEGATIVE [facility], [address] [place] [address] 17832 Urine Protein August 09, 2020 8:06pm Negative NEGATIVE [facility], [address] [place] [address] 75852 Urine Protein August 03, 2020 2:50pm Negative NEGATIVE [facility], [address] [place] [address] 53242 Urine Protein July 01, 2020 9:30pm Trace NEGATIVE [facility], [address] [place] [address] 33562 Urine Protein May 18, 2020 12:15am Negative NEGATIVE [facility], [address] [place] [address] 85379 Urine Protein March 25, 2020 8:05am Negative NEGATIVE [facility], [address] [place] [address] 02343 Urine Protein March 11, 2020 11:00am Trace NEGATIVE [facility], [address] [place] [address] 62155 Urine Protein March 05, 2020 2:29pm Trace NEGATIVE [facility], [address] [place] [address] 37715 Urine Protein March 02, 2020 10:48am Negative NEGATIVE [facility], [address] [place] [address] 80318 Urine Protein February 20, 2020 8:40am 30 mg/dl NEGATIVE [facility], [address] [place] [address] 20405 Urine Ictotest September 09, 2020 10:50pm Negative [facility], [address] [place] [address] 58761 Urine Glucose September 23, 2020 7:46pm Negative NEGATIVE [facility], [address] [place] [address] 95039 Urine Glucose September 09, 2020 10:50pm Negative NEGATIVE [facility], [address] [place] [address] 67590 Urine Glucose August 30, 2020 8:15pm Negative NEGATIVE [facility], [address] [place] [address] 04379 Urine Glucose August 09, 2020 8:06pm Negative NEGATIVE [facility], [address] [place] [address] 00726 Urine Glucose August 03, 2020 2:50pm Negative NEGATIVE [facility], [address] [place] [address] 71806 Urine Glucose July 01, 2020 9:30pm Negative NEGATIVE [facility], [address] [place] [address] 25425 Urine Glucose May 18, 2020 12:15am Negative NEGATIVE [facility], [address] [place] [address] 36136 Urine Glucose March 25, 2020 8:05am Negative NEGATIVE [facility], [address] [place] [address] 57895 Urine Glucose March 11, 2020 11:00am Negative NEGATIVE [facility], [address] [place] [address] 54441 Urine Glucose March 05, 2020 2:29pm Negative NEGATIVE [facility], [address] [place] [address] 80988 Urine Glucose March 02, 2020 10:48am Negative NEGATIVE [facility], [address] [place] [address] 10245 Urine Glucose February 20, 2020 8:40am Negative NEGATIVE [facility], [address] [place] [address] 00668 Urine Ketones September 23, 2020 7:46pm Negative NEGATIVE [facility], [address] [place] [address] 13604 Urine Ketones September 09, 2020 10:50pm Trace NEGATIVE [facility], [address] [place] [address] 32900 Urine Ketones August 30, 2020 8:15pm Trace NEGATIVE [facility], [address] [place] [address] 36099 Urine Ketones August 09, 2020 8:06pm Negative NEGATIVE [facility], [address] [place] [address] 37502 Urine Ketones August 03, 2020 2:50pm Negative NEGATIVE [facility], [address] [place] [address] 09098 Urine Ketones July 01, 2020 9:30pm Trace NEGATIVE [facility], [address] [place] [address] 22736 Urine Ketones May 18, 2020 12:15am Negative NEGATIVE [facility], [address] [place] [address] 89811 Urine Ketones March 25, 2020 8:05am Trace NEGATIVE [facility], [address] [place] [address] 75500 Urine Ketones March 11, 2020 11:00am Trace NEGATIVE [facility], [address] [place] [address] 25466 Urine Ketones March 05, 2020 2:29pm Negative NEGATIVE [facility], [address] [place] [address] 81033 Urine Ketones March 02, 2020 10:48am Negative NEGATIVE [facility], [address] [place] [address] 72632 Urine Ketones February 20, 2020 8:40am Trace NEGATIVE [facility], [address] [place] [address] 35907 Urine Urobilinogen September 23 7:46pm 0.2 eu/dl [facility], [address] [place] [address] 02176 Urine Urobilinogen September 09 10:50pm 1 eu/dl [facility], [address] [place] [address] 48161 Urine Urobilinogen August 30, 2020 8:15p m 1 eu/dl [facility], [address] [place] [address] 19076 Urine Urobilinogen August 09 8:06pm 1 eu/dl [facility], [address] [place] [address] 96183 Urine Urobilinogen August 03 2:50pm 1 eu/dl [facility], [address] [place] [address] 82713 Urine Urobilinogen July 01 9:30pm 1 eu/dl [facility], [address] [place] [address] 65583 Urine Urobilinogen May 18 12:15am 0.2 eu/dl [facility], [address] [place] [address] Urine Urobilinogen March 25, 2020 8:05am 1 eu/dl [facility], [address] [place] [address] Urine Urobilinogen March 11, 2020 11:00am 1 eu/dl [facility], [address] [place] [address] 81255 Urine Urobilinogen March 05, 2020 2:29pm 0.2 eu/dl [facility], [address] [place] [address] Urine Urobilinogen March 02, 2020 10:48am 1 eu/dl [facility], [address] [place] [address] 62883 Urine Urobilinogen February 20, 2020 8:40am 1 eu/dl [facility], [address] [place] [address] 10111 Urine Bilirubin September 23, 2020 7:46pm Negative NEGATIVE [facility], [address] [place] [address] 85595 Urine Bilirubin September 09, 2020 10:50pm Small NEGATIVE [facility], [address] [place] [address] 59905 Urine Bilirubin August 30, 2020 8:15pm Negative NEGATIVE [facility], [address] [place] [address] 42982 Urine Bilirubin August 09, 2020 8:06pm Negative NEGATIVE [facility], [address] [place] [address] 92410 Urine Bilirubin August 03, 2020 2:50pm Negative NEGATIVE [facility], [address] [place] [address] 32680 Urine Bilirubin July 01, 2020 9:30pm Negative NEGATIVE [facility], [address] [place] [address] 52789 Urine Bilirubin May 18, 2020 12:15am Negative NEGATIVE [facility], [address] [place] [address] 69396 Urine Bilirubin March 25, 2020 8:05am Negative NEGATIVE [facility], [address] [place] [address] 19761 Urine Bilirubin March 11, 2020 11:00am Negative NEGATIVE [facility], [address] [place] [address] 99811 Urine Bilirubin March 05, 2020 2:29pm Negative NEGATIVE [facility], [address] [place] [address] Urine Bilirubin March 02, 2020 10:48am Negative NEGATIVE [facility], [address] [place] [address] Urine Bilirubin February 20, 2020 8:40am Negative NEGATIVE [facility], [address] [place] [address] 20037 Urine Blood May 18, 2020 12:15am Negative NEGATIVE [facility], [address] [place], [place] [id number] Urine Blood February 20, 2020 8:40am Large NEGATIVE [facility], [address] [place] [address] 64290 Urine Blood September 23, 2020 7:46pm Negative NEGATIVE [facility], [address] [place] [address] Urine Blood September 09, 2020 10:50pm Large NEGATIVE A Culture has been added to this specimen per established criteria [facility], [address] [place] [address] 52186 Urine Blood August 30, 2020 8:15pm Large NEGATIVE A Culture has been added to this specimen per established criteria [facility], [address] [place] [address] Urine Blood August 09, 2020 8:06pm Moderate NEGATIVE A Culture has been added to this specimen per established criteria [facility], [address] [place] [address] 75282 Urine Blood August 03, 2020 2:50pm Small NEGATIVE [facility], [address] [place], [place] [id number] Urine Blood July 01, 2020 9:30pm Moderate NEGATIVE A Culture has been added to this specimen per established criteria [facility], [address] [place] [address] 24797 Urine Blood March 25, 2020 8:05am Negative NEGATIVE [facility], [address] [place] [address] 63349 Urine Blood March 11, 2020 11:00am Negative NEGATIVE [facility], [address] [place] [address] Urine Blood March 05, 2020 2:29pm Large NEGATIVE A Culture has been added to this specimen per established criteria [facility], [address] [place] [address] 14750 Urine Blood March 02, 2020 10:48am Trace NEGATIVE [facility], [address] [place] [address] Microscopic Urinalysis Comment Septe 2019 12:15am No [facility], [address] [place] [address] Microscopic Urinalysis Comment February 20, 2020 8:40am Microscopic added [facility], [address] [place] [address] Add Urine Microanalysis September 7:46pm Microscopic added [facility], [address] [place] [address] 53815 Add Urine Microanalysis August 10:50pm Microscopic added [facility], [address] [place] [address] 33312 Add Urine Microanalysis August 30, 2020 8:15pm Microscopic added [facility], [address] [place] [address] 67477 Add Urine Microanalysis July 8:06pm Microscopic added [facility], [address] [place] [address] Add Urine Microanalysis July 2:50pm Microscopic added [facility], [address] [place] [address] Add Urine Microanalysis June 9:30pm Microscopic added [facility], [address] [place] [address] Add Urine Microanalysis March 25, 2020 8:05am Microscopic added [facility], [address] [place] [address] Add Urine Microanalysis March 11 020 11:00am Microscopic added [facility], [address] [place] [address] Add Urine Microanalysis March 05, 020 2:29pm Microscopic added [facility], [address] [place] [address] Add Urine Microanalysis March 02, 020 10:48am Microscopic added [facility], [address] [place] [address] Urine RBC September 09, 2020 10:50pm 3-5 /hpf [facility], [address] [place] [address] 30476 Urine RBC August 30, 2020 8:15pm 1-2 /hpf [facility], [address] [place] [address] Urine RBC August 09, 2020 8:06pm 1-2 /hpf [facility], [address] [place] [address] 66976 Urine RBC August 03, 2020 2:50pm 6-10 /hpf [facility], [address] [place] [address] Urine RBC July 01, 2020 9:30pm Occasional /hpf [facility], [address] [place] [address] Urine RBC March 05, 2020 2:29pm 3-5 /hpf [facility], [address] [place] [address] 94954 Urine RBC March 02, 2020 10:48am Occasional /hpf [facility], [address] [place] [address] 13643 Urine WBC February 20, 2020 8:40am 20-30 /hpf [facility], [address] [place] [address] 01281 Urine WBC September 23, 2020 7:46pm 1-2 /hpf [facility], [address] [place] [address] Urine WBC September 09, 2020 10:50pm 2-4 /hpf [facility], [address] [place] [address] Urine WBC August 30, 2020 8:15pm 1-2 /hpf [facility], [address] [place] [id number] Urine WBC August 09, 2020 8:06pm 1-2 /hpf [facility], [address] [place] [address] Urine WBC August 03, 2020 2:50pm 20-30 /hpf [facility], [address] [place] [address] Urine WBC July 01, 2020 9:30pm Occasional /hpf [facility], [address] [place] [id number] Urine WBC March 25, 2020 8:05am 3-5 /hpf [facility], [address] [place] [address] Urine WBC March 11, 2020 11:00am 3-5 /hpf [facility], [address] [place] [address] Urine WBC March 05, 2020 2:29pm Occasional /hpf [facility], [address] [place] [address] Urine WBC March 02, 2020 10:48am 3-5 /hpf [facility], [address] [place] [address] Urine Squamous Epithelial Cells Febr uary 2020 7:46pm Few /hpf [facility], [address] [place] [address] Urine Squamous Epithelial Cells Lukas krystina 2020 10:50pm Few /hpf [facility], [address] [place] [address] Urine Squamous Epithelial Cells Lukas krystina 2020 8:15pm Moderate /hpf [facility], [address] [place] [address] Urine Squamous Epithelial Cells Dece mber 2019 8:06pm Many /hpf [facility], [address] [place] [address] Urine Squamous Epithelial Cells Dece mber 2019 2:50pm Moderate /hpf [facility], [address] [place] [id number] Urine Squamous Epithelial Cells Nove mber 2019 9:30pm Moderate /hpf [facility] [facility] [address] [place] [address] Urine Squamous Epithelial Cells Augu st 2019 8:05am Many /hpf [facility], [address] [place] [address] Urine Squamous Epithelial Cells March 11, 2020 11:00am Many /hpf [facility], [address] [place] [address] Urine Squamous Epithelial Cells March 05, 2020 2:29pm Many /hpf [facility], [address] [place] [address] Urine Squamous Epithelial Cells March 02, 2020 10:48am Many /hpf [facility], [address] [place] [address] Urine Squamous Epithelial Cells February 20, 2020 8:40am Many /hpf [facility], [address] [place] [address] Urine Bacteria February 20, 2020 8:40am Moderate amount NEGATIVE [facility], [address] [place] [address] 47963 Urine Bacteria September 23, 2020 7:46pm Small amount NEGATIVE [facility], [address] [place], [place] [id number] Urine Bacteria September 09, 2020 10:50pm Moderate amount NEGATIVE A Culture has been added to this specime n per established criteria [facility], [address] [place] [address] Urine Bacteria August 30, 2020 8:15pm Small amount NEGATIVE [facility], [address] [place] [address] Urine Bacteria August 09, 2020 8:06pm Small amount NEGATIVE [facility], [address] [place] [address] 36189 Urine Bacteria August 03, 2020 2:50pm Small amount NEGATIVE [facility], [address] [place] [address] 50246 Urine Bacteria July 01, 2020 9:30pm Moderate amount NEGATIVE A Culture has been added to this specime n per established criteria [facility], [address] [place] [address] 45100 Urine Bacteria March 25, 2020 8:05am Small amount NEGATIVE [facility], [address] [place] [address] 15825 Urine Bacteria March 11, 2020 11:00am Small amount NEGATIVE [facility], [address] [place] [address] Urine Bacteria March 05, 2020 2:29pm Small amount NEGATIVE [facility], [address] [place] [address] 55667 Urine Bacteria March 02, 2020 10:48am Small amount NEGATIVE [facility], [address] [place] [address] 83328 Urine Mucus August 30, 2020 8:15pm Small amount [facility], [address] [place] [address] 37184 Urine Mucus March 25, 2020 8:05am Small amount [facility], [address] [place] [address] 80370 Urine Sperm February 20, 2020 8:40am Few [facility], [address] [place], [place] [id number] Carboxyhemoglobin September 09, 2020 11:50pm 1.3 % 0-2.0 REFERENCE RANGE Non Smoker: LESS THAN 2.0% Smoker: LESS THAN 9.0% [facility], [address] [place], [place] [id number] Blood Urea Nitrogen September 23 8:05pm 10 mg/dL 05-15 [facility], [address] [place] [address] 10356 Blood Urea Nitrogen September 09 11:50pm 7 mg/dL 05-15 [facility], [address] [place] [address] 67791 Blood Urea Nitrogen September 05 12:03pm 7 mg/dL 05-15 [facility], [address] [place], [place] [id number] Blood Urea Nitrogen August 30 8:15pm 16 mg/dL 05-15 [facility], [address] [place], [place] [id number] Blood Urea Nitrogen August 09 7:35pm 8 mg/dL 05-15 [facility], [address] [place] [address] Blood Urea Nitrogen August 03 020 2:35pm 5 mg/dL 05-15 [facility], [address] [place] [address] Blood Urea Nitrogen July 01 9:40pm 6 mg/dL 05-15 [facility], [address] [place] [address] Blood Urea Nitrogen May 18, 2020 6:17am 7 mg/dL 05-15 [facility], [address] [place] [address] Blood Urea Nitrogen March 25, 2020 8:11a m 7 mg/dL 05-15 [facility], [address] [place] [address] Blood Urea Nitrogen March 11, 2020 12:14p m 6 mg/dL 05-15 [facility], [address] [place] [address] Blood Urea Nitrogen March 02, 2020 11:00a m 8 mg/dL 05-15 [facility], [address] [place] [address] Blood Urea Nitrogen February 26, 2020 10:02am 7 mg/dL 05-15 [facility], [address] [place] [address] Blood Urea Nitrogen February 20, 2020 8:35am 6 mg/dL 05-15 [facility], [address] [place] [address] 31318 Sodium Level September 23, 2020 8:05pm 142 mmol/L 132-146 [facility], [address] [place] [address] 68415 Sodium Level September 09, 2020 11:50pm 142 mmol/L 132-146 [facility], [address] [place] [address] 32206 Sodium Level September 05, 2020 12:03pm 140 mmol/L 132-146 [facility], [address] [place] [address] 17770 Sodium Level August 30, 2020 8:15pm 141 mmol/L 132-146 [facility], [address] [place] [address] 95657 Sodium Level August 09, 2020 7:35pm 141 mmol/L 132-146 [facility], [address] [place] [address] 61145 Sodium Level August 03, 2020 2:35pm 138 mmol/L 132-146 [facility], [address] [place] [address] 81466 Sodium Level July 01, 2020 9:40pm 141 mmol/L 132-146 [facility], [address] [place] [address] 06304 Sodium Level May 18, 2020 6:17am 143 mmol/L 132-146 [facility], [address] [place] [address] 60694 Sodium Level March 25, 2020 8:11am 137 mmol/L 132-146 [facility], [address] [place] [address] 70328 Sodium Level March 11, 2020 12:14pm 140 mmol/L 132-146 [facility], [address] [place] [address] 02162 Sodium Level March 02, 2020 11:00am 139 mmol/L 132-146 [facility], [address] [place] [address] 76669 Sodium Level February 26, 2020 10:02am 138 mmol/L 132-146 [facility], [address] [place] [address] 94501 Sodium Level February 20, 2020 8:35am 138 mmol/L 132-146 [facility], [address] [place] [address] 29700 Potassium Level September 23, 2020 8:05pm 3.9 mmol/L 3.5-5.5 [facility], [address] [place] [address] 55451 Potassium Level September 09, 2020 11:50pm 3.7 mmol/L 3.5-5.5 [facility], [address] [place] [address] 03922 Potassium Level September 05, 2020 12:03pm 3.9 mmol/L 3.5-5.5 [facility], [address] [place] [address] 26298 Potassium Level August 30, 2020 8:15pm 3.8 mmol/L 3.5-5.5 [facility], [address] [place] [address] 94621 Potassium Level August 09, 2020 7:35pm 3.9 mmol/L 3.5-5.5 [facility], [address] [place] [address] 90889 Potassium Level August 03, 2020 2:35pm 4.6 mmol/L 3.5-5.5 [facility], [address] [place] [address] 34381 Potassium Level July 01, 2020 9:40pm 3.7 mmol/L 3.5-5.5 [facility], [address] [place] [address] 81259 Potassium Level May 18, 2020 6:17a m 3.8 mmol/L 3.5-5.5 [facility], [address] [place] [address] 20540 Potassium Level March 25, 2020 8:11am 3.7 mmol/L 3.5-5.5 [facility], [address] [place] [address] 89023 Potassium Level March 11, 2020 12:14pm 4.3 mmol/L 3.5-5.5 [facility], [address] [place] [address] 07447 Potassium Level March 02, 2020 11:00am 4.1 mmol/L 3.5-5.5 [facility], [address] [place] [address] 62423 Potassium Level February 26, 2020 10:02am 4.1 mmol/L 3.5-5.5 [facility], [address] [place] [address] 27508 Potassium Level February 20, 2020 8:35am 4.1 mmol/L 3.5-5.5 [facility], [address] [place] [address] 41268 Chloride Level September 23, 2020 8:05pm 111 mmol/l 99-109 [facility], [address] [place] [address] 11297 Chloride Level September 09, 2020 11:50pm 111 mmol/l 99-109 [facility], [address] [place] [address] 11814 Chloride Level September 05, 2020 12:03pm 110 mmol/l 99-109 [facility], [address] [place] [address] 61258 Chloride Level August 30, 2020 8:15pm 109 mmol/l 99-109 [facility], [address] [place] [address] 49067 Chloride Level August 09, 2020 7:35pm 111 mmol/l 99-109 [facility], [address] [place] [address] 09562 Chloride Level August 03, 2020 2:35pm 110 mmol/l 99-109 [facility], [address] [place] [address] 29631 Chloride Level July 01, 2020 9:40pm 110 mmol/l 99-109 [facility], [address] [place] [address] 36076 Chloride Level May 18, 2020 6:17am 113 mmol/l 99-109 [facility], [address] [place] [address] 45602 Chloride Level March 25, 2020 8:11am 111 mmol/l 99-109 [facility], [address] [place] [address] 79417 Chloride Level March 11, 2020 12:14pm 111 mmol/l 99-109 [facility], [address] [place] [address] 02847 Chloride Level March 02, 2020 11:00am 111 mmol/l 99-109 [facility], [address] [place] [address] 90978 Chloride Level February 26, 2020 10:02am 107 mmol/l 99-109 [facility], [address] [place] [address] 58601 Chloride Level February 20, 2020 8:35am 108 mmol/l 99-109 [facility], [address] [place] [address] 83825 Carbon Dioxide Level September 23 021 8:05pm 24 mmol/l 20-31 [facility], [address] [place] [address] 87427 Carbon Dioxide Level September 09, 021 11:50pm 23 mmol/l 20-31 [facility], [address] [place] [address] 06377 Carbon Dioxide Level September 05, 2 021 12:03pm 20 mmol/l 20-31 [facility], [address] [place] [address] 13593 Carbon Dioxide Level August 30 8:15pm 24 mmol/l 20-31 [facility], [address] [place] [address] 95768 Carbon Dioxide Level August 09, 2020 7:35pm 24 mmol/l 20-31 [facility], [address] [place] [address] 55523 Carbon Dioxide Level August 03, 2020 2:35pm 21 mmol/l 20-31 [facility], [address] [place] [address] 04581 Carbon Dioxide Level July 01, 2 020 9:40pm 22 mmol/l 20-31 [facility], [address] [place] [address] 16478 Carbon Dioxide Level May 18, 2020 6:17am 25 mmol/l 20-31 [facility], [address] [place] [address] 06616 Carbon Dioxide Level March 25 0 8:11am 21 mmol/l 20-31 [facility], [address] [place] [address] 29144 Carbon Dioxide Level March 11, 2020 12:14pm 20 mmol/l 20-31 [facility], [address] [place] [address] 97441 Carbon Dioxide Level March 02, 2020 11:00am 20 mmol/l 20-31 [facility], [address] [place] [address] Carbon Dioxide Level February 26, 2020 10:02a m 22 mmol/l 20-31 [facility], [address] [place] [address] Carbon Dioxide Level February 20, 2020 8:35a m 21 mmol/l 20-31 [facility], [address] [place] [address] 08658 Anion Gap September 23, 2020 8:05pm 11 mmol/l 8-16 [facility], [address] [place] [address] 78779 Anion Gap September 09, 2020 11:50pm 12 mmol/l 8-16 [facility], [address] [place] [address] 67037 Anion Gap September 05, 2020 12:03pm 14 mmol/l 8-16 [facility], [address] [place] [address] 76568 Anion Gap August 30, 2020 8:15pm 12 mmol/l 8-16 [facility], [address] [place] [address] 14618 Anion Gap August 09, 2020 7:35pm 10 mmol/l 8-16 [facility], [address] [place] [address] 61302 Anion Gap August 03, 2020 2:35pm 12 mmol/l 8-16 [facility], [address] [place] [address] 03892 Anion Gap July 01, 2020 9:40pm 13 mmol/l 8-16 [facility], [address] [place] [address] 71614 Anion Gap May 18, 2020 6:17am 9 mmol/l 8-16 [facility], [address] [place] [address] 71550 Anion Gap March 25, 2020 8:11am 9 mmol/l 8-16 [facility], [address] [place] [address] 47841 Anion Gap March 11, 2020 12:14pm 13 mmol/l 8-16 [facility], [address] [place] [address] 27863 Anion Gap March 02, 2020 11:00am 12 mmol/l 8-16 [facility], [address] [place] [address] 14048 Anion Gap February 26, 2020 10:02am 13 mmol/l 8-16 [facility], [address] [place] [address] 66143 Anion Gap February 20, 2020 8:35am 13 mmol/l 8-16 [facility], [address] [place] [address] 60119 Glucose Level September 23, 2020 8:05pm 82 mg/dL 74-106 [facility], [address] [place] [address] 42006 Glucose Level September 09, 2020 11:50pm 90 mg/dL 74-106 [facility], [address] [place] [address] 60599 Glucose Level September 05, 2020 12:03pm 106 mg/dL 74-106 [facility], [address] [place] [address] 37877 Glucose Level August 30, 2020 8:15pm 90 mg/dL 74-106 [facility], [address] [place] [address] 17046 Glucose Level August 09, 2020 7:35pm 89 mg/dL 74-106 [facility], [address] [place] [address] 16897 Glucose Level August 03, 2020 2:35pm 87 mg/dL 74-106 [facility], [address] [place] [address] 69943 Glucose Level July 01, 2020 9:40pm 100 mg/dL 74-106 [facility], [address] [place] [address] 54928 Glucose Level May 18, 2020 6:17am 93 mg/dL 74-106 [facility], [address] [place] [address] 01457 Glucose Level March 25, 2020 8:11am 93 mg/dL 74-106 [facility], [address] [place] [address] 08258 Glucose Level March 11, 2020 12:14pm 88 mg/dL 74-106 [facility], [address] [place] [address] 36471 Glucose Level March 02, 2020 11:00am 91 mg/dL 74-106 [facility], [address] [place] [address] 85195 Glucose Level February 26, 2020 10:02am 92 mg/dL 74-106 [facility], [address] [place] [address] 12296 Glucose Level February 20, 2020 8:35am 98 mg/dL 74-106 [facility], [address] [place] [address] 53799 Creatinine September 23, 2020 8:05pm 1.0 mg/dL 0.5-1.1 [facility], [address] [place] [address] 74086 Creatinine September 09, 2020 11:50pm 0.9 mg/dL 0.5-1.1 [facility], [address] [place], [place] [id number] Creatinine September 05, 2020 12:03pm 1.0 mg/dL 0.5-1.1 [facility], [address] [place] [address] Creatinine August 30, 2020 8:15pm 1.1 mg/dL 0.5-1.1 [facility], [address] [place] [address] Creatinine August 09, 2020 7:35pm 1.3 mg/dL 0.5-1.1 [facility], [address] [place] [address] Creatinine August 03, 2020 2:35pm 0.8 mg/dL 0.5-1.1 [facility], [address] [place] [address] Creatinine July 01, 2020 9:40pm 0.9 mg/dL 0.5-1.1 [facility], [address] [place], [place] [id number] Creatinine May 18, 2020 6:17am 0.7 mg/dL 0.5-1.1 [facility], [address] [place], [place] [id number] Creatinine March 25, 2020 8:11am 0.9 mg/dL 0.5-1.1 [facility], [address] [place], [place] [id number] Creatinine March 11, 2020 12:14pm 1.2 mg/dL 0.5-1.1 [facility], [address] [place] [address] Creatinine March 02, 2020 11:00am 1.0 mg/dL 0.5-1.1 [facility], [address] [place], [place] [id number] Creatinine February 26, 2020 10:02am 1.0 mg/dL 0.5-1.1 [facility], [address] [place], [place] [id number] Creatinine February 20, 2020 8:35am 1.1 mg/dL 0.5-1.1 [facility], [address] [place] [address] Glomerular Filtration Rate Calc Febr uary 2020 8:05pm Greater than 60 ml/min ABOVE 60 [facility], [address] [place] [address] Glomerular Filtration Rate Calc Lukas krystina 2020 11:50pm Greater than 60 ml/min ABOVE 60 [facility], [address] [place] [address] 95016 Glomerular Filtration Rate Calc Lukas krystina 2020 12:03pm Greater than 60 ml/min ABOVE 60 [facility], [address] [place] [address] 76416 Glomerular Filtration Rate Calc Lukas krystina 2020 8:15pm 60 ml/min ABOVE 60 [facility], [address] [place] [address] 12769 Glomerular Filtration Rate Calc Dece mber 2019 7:35pm 50 ml/min ABOVE 60 [facility], [address] [place] [address] 93216 Glomerular Filtration Rate Calc Dece mber 2019 2:35pm Greater than 60 ml/min ABOVE 60 [facility], [address] [place] [address] 17734 Glomerular Filtration Rate Calc Nove mber 2019 9:40pm Greater than 60 ml/min ABOVE 60 [facility], [address] [place] [address] 62609 Glomerular Filtration Rate Calc Sept 2019 6:17am Greater than 60 ml/min ABOVE 60 [facility], [address] [place] [address] 68932 Glomerular Filtration Rate Calc Aug2019 8:11am Greater than 60 ml/min ABOVE 60 [facility], [address] [place] [address] 91896 Glomerular Filtration Rate Calc March 11, 2020 12:14pm 55 ml/min ABOVE 60 [facility], [address] [place] [address] 59270 Glomerular Filtration Rate Calc March 02, 2020 11:00am Greater than 60 ml/min ABOVE 60 [facility], [address] [place] [address] 79012 Glomerular Filtration Rate Calc February 26, 2020 10:02am Greater than 60 ml/min ABOVE 60 [facility], [address] [place] [address] 39689 Glomerular Filtration Rate Calc February 20, 2020 8:35am Greater than 60 ml/min ABOVE 60 [facility], [address] [place] [address] 72414 Alanine Aminotransferase (ALT/SGPT) September 23, 2020 8:05pm 27 U/L 10-49 [facility], [address] [place] [address] 47481 Alanine Aminotransferase (ALT/SGPT) September 09, 2020 11:50pm 31 U/L 10-49 [facility], [address] [place] [address] 72630 Alanine Aminotransferase (ALT/SGPT) September 05, 2020 12:03pm 69 U/L 10-49 [facility], [address] [place] [address] 49058 Alanine Aminotransferase (ALT/SGPT) August 09, 2020 7:35pm 30 U/L 10-49 [facility], [address] [place] [address] Alanine Aminotransferase (ALT/SGPT) August 03, 2020 2:35pm 42 U/L 10-49 [facility], [address] [place] [address] Alanine Aminotransferase (ALT/SGPT) July 01, 2020 9:40pm 43 U/L 10-49 [facility], [address] [place] [address] Alanine Aminotransferase (ALT/SGPT) May 18, 2020 6:17am 52 U/L -49 [facility], [address] [place] [address] 36829 Alanine Aminotransferase (ALT/SGPT) March 25, 2020 8:11am 27 U/L 10-49 [facility], [address] [place] [address] 30963 Alanine Aminotransferase (ALT/SGPT) March 11, 2020 12:14pm 29 U/L 10-49 [facility], [address] [place] [address] 02328 Alanine Aminotransferase (ALT/SGPT) March 02, 2020 11:00am 29 U/L 10-49 [facility], [address] [place] [address] 13018 Alanine Aminotransferase (ALT/SGPT) February 26, 2020 10:02am 33 U/L 10-49 [facility], [address] [place] [address] 84668 Alanine Aminotransferase (ALT/SGPT) February 20, 2020 8:35am 42 U/L 10-49 [facility], [address] [place] [address] 56000 Aspartate Amino Transf (AST/SGOT) Fe bruary 2020 8:05pm 14 U/L 0-33 [facility], [address] [place] [address] 71012 Aspartate Amino Transf (AST/SGOT) Ja nuventura 2020 11:50pm 12 U/L 0-33 [facility], [address] [place] [address] 66143 Aspartate Amino Transf (AST/SGOT) Ja nuary 2020 12:03pm 29 U/L 0-33 [facility], [address] [place] [address] 00106 Aspartate Amino Transf (AST/SGOT) De cember 2019 7:35pm 13 U/L 0-33 [facility], [address] [place] [address] 60476 Aspartate Amino Transf (AST/SGOT) De cember 2019 2:35pm 35 U/L 0-33 [facility], [address] [place] [address] 26884 Aspartate Amino Transf (AST/SGOT) No vember 2019 9:40pm 21 U/L 0-33 [facility], [address] [place] [address] 45566 Aspartate Amino Transf (AST/SGOT) Se ptember 2019 6:17am 27 U/L 0-33 [facility], [address] [place] [address] 28820 Aspartate Amino Transf (AST/SGOT) Au kem 2019 8:11am 15 U/L 0-33 [facility], [address] [place] [address] 01687 Aspartate Amino Transf (AST/SGOT) Ju ly 2019 12:14pm 17 U/L 0-33 [facility], [address] [place] [address] [id number] Aspartate Amino Transf (AST/SGOT) Ju ly 2019 11:00am 14 U/L 0-33 [facility], [address] [place] [address] [id number] Aspartate Amino Transf (AST/SGOT) Ju ly 2019 10:02am 17 U/L 0-33 [facility], [address] [place] [address] [id number] Aspartate Amino Transf (AST/SGOT) Ju ne 2019 8:35am 23 U/L 0-33 [facility], [address] [place] [address] [id number] Alkaline Phosphatase September 23 8:05pm 139 U/L 45-129 [facility], [address] [place] [address] 18130 Alkaline Phosphatase September 09 11:50pm 131 U/L 45-129 [facility], [address] [place] [address] 30507 Alkaline Phosphatase September 05 12:03pm 167 U/L 45-129 [facility], [address] [place] [address] 66979 Alkaline Phosphatase August 09, 2020 7:35pm 122 U/L 45-129 [facility], [address] [place] [address] 19208 Alkaline Phosphatase August 03, 2020 2:35pm 125 U/L 45-129 [facility], [address] [place] [address] 12879 Alkaline Phosphatase July 01 9:40pm 139 U/L 45-129 [facility], [address] [place] [address] 92981 Alkaline Phosphatase May 18, 2020 6:17am 110 U/L 45-129 [facility], [address] [place] [address] 82965 Alkaline Phosphatase March 25 8:11am 122 U/L 45-129 [facility], [address] [place] [address] 75273 Alkaline Phosphatase March 11, 2020 12:14pm 129 U/L 45-129 [facility], [address] [place] [address] 19239 Alkaline Phosphatase March 02, 2020 11:00am 136 U/L 45-129 [facility], [address] [place] [address] 17798 Alkaline Phosphatase February 26, 2020 10:02a m 147 U/L 45-129 [facility], [address] [place] [address] 34148 Alkaline Phosphatase February 20, 2020 8:35a m 149 U/L 45-129 [facility], [address] [place] [address] 96107 Amylase Level September 09, 2020 11:50pm 45 U/L 30-118 [facility], [address] [place] [address] 08184 Amylase Level August 09, 2020 7:35pm 39 U/L 30-118 [facility], [address] [place] [address] 31519 Amylase Level August 03, 2020 2:35pm 31 U/L 30-118 [facility], [address] [place] [address] 52276 Amylase Level May 17, 2020 7:20pm 39 U/L 30-118 [facility], [address] [place] [address] 80808 Amylase Level March 25, 2020 8:11am 35 U/L 30-118 [facility], [address] [place] [address] 17111 Lipase September 23, 2020 8:05pm 120 U/L 73-393 [facility], [address] [place] [address] 74388 Lipase September 09, 2020 11:50pm 116 U/L 73-393 [facility] [facility], [address] [place] [address] 86762 Lipase August 09, 2020 7:35pm 90 U/L 73-393 [facility], [address] [place] [address] 53419 Lipase August 03, 2020 2:35pm 68 U/L 73-393 [facility], [address] [place] [address] 89144 Lipase May 17, 2020 7:20pm 89 U/L 73-393 [facility], [address] [place] [address] 53702 Lipase March 25, 2020 8:11am 97 U/L 73-393 [facility], [address] [place] [address] 07742 Lipase March 11, 2020 12:14pm 128 U/L 73-393 [facility], [address] [place] [address] 10613 Calcium Level September 23, 2020 8:05pm 9.6 mg/dL 8.5-10.1 [facility], [address] [place] [address] 74468 Calcium Level September 09, 2020 11:50pm 9.6 mg/dL 8.5-10.1 [facility], [address] [place] [address] 62027 Calcium Level September 05, 2020 12:03pm 9.4 mg/dL 8.5-10.1 [facility], [address] [place] [address] 04199 Calcium Level August 30, 2020 8:15pm 9.6 mg/dL 8.5-10.1 [facility], [address] [place] [address] 98125 Calcium Level August 09, 2020 7:35pm 9.5 mg/dL 8.5-10.1 [facility], [address] [place] [address] 38371 Calcium Level August 03, 2020 2:35pm 9.1 mg/dL 8.5-10.1 [facility], [address] [place] [address] 75693 Calcium Level July 01, 2020 9:40pm 9.2 mg/dL 8.5-10.1 [facility], [address] [place] [address] 04500 Calcium Level May 18, 2020 6:17am 8.5 mg/dL 8.5-10.1 Delta: 9.6 on 05/17/20-2019Repeated by: Roderick Cee 05/18/20 0824.Result Confirmation: 8.3 # mg/dL [facility], [address] [place] [address] 38823 Calcium Level March 25, 2020 8:11am 8.9 mg/dL 8.5-10.1 [facility], [address] [place] [address] 56828 Calcium Level March 11, 2020 12:14pm 8.6 mg/dL 8.5-10.1 [facility], [address] [place] [address] 12801 Calcium Level March 02, 2020 11:00am 9.0 mg/dL 8.5-10.1 [facility], [address] [place] [address] 36860 Calcium Level February 26, 2020 10:02am 9.0 mg/dL 8.5-10.1 [facility], [address] [place] [address] 34484 Calcium Level February 20, 2020 8:35am 9.4 mg/dL 8.5-10.1 [facility], [address] [place] [address] 19300 Total Bilirubin September 23, 2020 8:05pm 0.2 mg/dL 0.3-1.2 [facility], [address] [place] [address] 47720 Total Bilirubin September 09, 2020 11:50pm 0.2 mg/dL 0.3-1.2 [facility], [address] [place] [address] 37253 Total Bilirubin September 05, 2020 12:03pm 0.3 mg/dL 0.3-1.2 [facility], [address] [place] [address] 58727 Total Bilirubin August 09, 2020 7:35pm 0.3 mg/dL 0.3-1.2 [facility], [address] [place] [address] 14894 Total Bilirubin August 03, 2020 2:35pm 0.4 mg/dL 0.3-1.2 [facility], [address] [place] [address] 06008 Total Bilirubin July 01, 2020 9:40pm 0.3 mg/dL 0.3-1.2 [facility], [address] [place] [address] 47415 Total Bilirubin May 18, 2020 6:17a m 0.3 mg/dL 0.3-1.2 [facility], [address] [place] [address] 96467 Total Bilirubin March 25, 2020 8:11am 0.2 mg/dL 0.3-1.2 [facility], [address] [place] [address] 88729 Total Bilirubin March 11, 2020 12:14pm 0.2 mg/dL 0.3-1.2 [facility], [address] [place] [address] 84883 Total Bilirubin March 02, 2020 11:00am 0.4 mg/dL 0.3-1.2 [facility], [address] [place] [address] 82587 Total Bilirubin February 26, 2020 10:02am 0.3 mg/dL 0.3-1.2 [facility], [address] [place] [address] 36877 Total Bilirubin February 20, 2020 8:35am 0.3 mg/dL 0.3-1.2 [facility], [address] [place] [address] 72855 Albumin September 23, 2020 8:05pm 3.7 g/dL 3.2-4.8 [facility], [address] [place] [address] 67844 Albumin September 09, 2020 11:50pm 3.5 g/dL 3.2-4.8 [facility], [address] [place] [address] 08371 Albumin September 05, 2020 12:03pm 3.4 g/dL 3.2-4.8 [facility], [address] [place] [address] 90054 Albumin August 09, 2020 7:35pm 3.6 g/dL 3.2-4.8 [facility], [address] [place] [address] 71342 Albumin August 03, 2020 2:35pm 3.5 g/dL 3.2-4.8 [facility], [address] [place] [address] 53694 Albumin July 01, 2020 9:40pm 3.5 g/dL 3.2-4.8 [facility], [address] [place] [address] 15033 Albumin May 18, 2020 6:17am 3.0 g/dL 3.2-4.8 [facility], [address] [place] [address] 63268 Albumin March 25, 2020 8:11am 3.0 g/dL 3.2-4.8 [facility], [address] [place] [address] 76145 Albumin March 11, 2020 12:14pm 3.2 g/dL 3.2-4.8 [facility], [address] [place] [address] 36130 Albumin March 02, 2020 11:00am 3.1 g/dL 3.2-4.8 [facility], [address] [place] [address] 41113 Albumin February 26, 2020 10:02am 3.4 g/dL 3.2-4.8 [facility], [address] [place] [address] 34149 Albumin February 20, 2020 8:35am 3.5 g/dL 3.2-4.8 [facility], [address] [place] [address] Serum Total Protein September 23 8:05pm 8.6 g/dL 5.7-8.2 [facility], [address] [place] [address] Serum Total Protein September 09 11:50pm 8.2 g/dL 5.7-8.2 [facility], [address] [place] [address] Serum Total Protein September 05 12:03pm 7.8 g/dL 5.7-8.2 [facility], [address] [place] [address] 21733 Serum Total Protein August 09, 020 7:35pm 8.2 g/dL 5.7-8.2 [facility], [address] [place] [address] 48187 Serum Total Protein August 03 020 2:35pm 8.1 g/dL 5.7-8.2 [facility], [address] [place] [address] Serum Total Protein July 01 9:40pm 8.0 g/dL 5.7-8.2 [facility], [address] [place] [address] Serum Total Protein May 18, 2020 6:17am 6.6 g/dL 5.7-8.2 [facility], [address] [place] [address] Serum Total Protein March 25, 2020 8:11a m 7.7 g/dL 5.7-8.2 [facility], [address] [place] [address] Serum Total Protein March 11, 2020 12:14p m 7.6 g/dL 5.7-8.2 [facility], [address] [place] [address] 95345 Serum Total Protein March 02, 2020 11:00a m 7.9 g/dL 5.7-8.2 [facility], [address] [place] [address] 83272 Serum Total Protein February 26, 2020 10:02am 7.6 g/dL 5.7-8.2 [facility], [address] [place] [address] 62273 Serum Total Protein February 20, 2020 8:35am 7.9 g/dL 5.7-8.2 [facility], [address] [place] [address] 89432 Lactic Acid Level July 01, 2020 9:40p m 1.0 mmol/L 0.5-2.2 [facility], [address] [place] [address] 93333 Human Chorionic Gonadotropin, Quant August 09, 2020 7:35pm 27210 mIU/mL 0-10 APPROXIMATE GESTATION AGE APRROX IMATE HCG RANGE 0-1 WEEK 0 - 50 1-2 WEEKS 40 - 300 2-3 WEEKS 100 - 1,000 3-4 WEEKS 500 - 6,000 1-2 MONTHS 5,000 - 200,000 2-3 MONTHS 10,000 - 100,000 2ND TRIMESTER 3,000 - 50,000 3RD TRIMESTER 1,000 - 50,000 [facility], [address] [place] [address] 44723 Human Chorionic Gonadotropin, Quant August 14, 2020 9:31am 36536 mIU/mL 0-10 APPROXIMATE GESTATION AGE APRROX IMATE HCG RANGE 0-1 WEEK 0 - 50 1-2 WEEKS 40 - 300 2-3 WEEKS 100 - 1,000 3-4 WEEKS 500 - 6,000 1-2 MONTHS 5,000 - 200,000 2-3 MONTHS 10,000 - 100,000 2ND TRIMESTER 3,000 - 50,000 3RD TRIMESTER 1,000 - 50,000 [facility], [address] [place] [address] 84171 Human Chorionic Gonadotropin, Quant August 03, 2020 2:35pm 13183 mIU/mL 0-10 APPROXIMATE GESTATION AGE APRROX IMATE HCG RANGE 0-1 WEEK 0 - 50 1-2 WEEKS 40 - 300 2-3 WEEKS 100 - 1,000 3-4 WEEKS 500 - 6,000 1-2 MONTHS 5,000 - 200,000 2-3 MONTHS 10,000 - 100,000 2ND TRIMESTER 3,000 - 50,000 3RD TRIMESTER 1,000 - 50,000 [facility], [address] [place] [address] 88373 Human Chorionic Gonadotropin, Quant July 01, 2020 10:10am Less than 1 mIU/mL 0-1 0 APPROXIMATE GESTATION AGE APRROX IMATE HCG RANGE 0-1 WEEK 0 - 50 1-2 WEEKS 40 - 300 2-3 WEEKS 100 - 1,000 3-4 WEEKS 500 - 6,000 1-2 MONTHS 5,000 - 200,000 2-3 MONTHS 10,000 - 100,000 2ND TRIMESTER 3,000 - 50,000 3RD TRIMESTER 1,000 - 50,000 [facility], [address] [place] [address] 56978 Thyroid Stimulating Hormone (TSH) Ju 2019 10:02am 1.84 uIU/mL 0.35-5.50 [facility], [address] [place] [address] 87212 Serum Test, Qualitative Fe bruary 2020 8:05pm Negative NEGATIVE [facility], [address] [place] [address] 34873 Serum Test, Qualitative Ja nuary 2020 11:50pm Negative NEGATIVE [facility], [address] [place] [address] 83790 Serum Test, Qualitative De cember 2019 2:35pm Positive NEGATIVE [facility], [address] [place] [address] 36696 Serum Test, Qualitative No vember 2019 9:40pm Negative NEGATIVE [facility], [address] [place] [address] 13955 Serum Test, Qualitative Se ptember 2019 7:20pm Negative NEGATIVE [facility], [address] [place] [address] 95802 Serum Test, Qualitative Au kem 2019 8:11am Negative NEGATIVE [facility], [address] [place] [address] 15900 Urine HCG, Qualitative March 11 11:00am Negative NEGATIVE [facility], [address] [place] [address] 41360 Urine HCG, Qualitative March 02 11:00am Negative NEGATIVE [facility], [address] [place] [address] 03835 Urine HCG, Qualitative February 19 8:32am Negative NEGATIVE [facility], [address] [place] [address] 97754 Stool C. Difficile GDH Antigen Rogelio krystina 2020 7:55pm See note CLOSTRIDIUM DIFFICILE TOXIN/GDH W/REFL TO PCR Micro Number: [id number] Test Status: Final Specimen Source: STOOL Specimen Quality: Adequate GDH Antigen: Not Detected Toxin A and B: Not Detected COMMENT: No toxigenic C. difficile detected For additional information, please refer to http://education.[employer]/faq/SDY010 (This link is being provided for informational/educational purposes only.)THIS TEST WAS PERFORMED AT:[facility] [id number] Vikram NOVOA Coronavirus (COVID-19)(PCR) March 252019 2:30pm Not detected Not Detec dee This test was developed and its performa nce characteristicsdetermined by [employer]. This test has not beenFDA cleared or approved. This test has been authorized byA under an Emergency Use Authorization (EUA). This [...] (not detected) result in this assay.Performed at: - [facility] [address] [id number] Director: Deisy Hdez MD, Phone: [phone] [facility] , [address] [facility] [address] Urine Random Creatinine February 27 7:19am 234.0 mg/dL THERE IS NO ESTABLISHED RANGE FOR RANDOM URINE CREATININE [facility], [address] [place] [address] Urine Microalbumin February 28, 2020 7:19am 13.7 mg/L 0.0-29.9 [facility], [address] [place] [address] Urine Microalbumin/Creatinine Ratio February 28, 2020 7:19am 5.8 ug/mg 0.0-30.0 [facility], [address] [place] [address] Hemoglobin A1c February 26, 2020 10:02am 5.3 [...] glucose control. * High risk of developing usp complications such asretinopathy, nephropathy, neuropathy, cardiopathy, etc. Some danger of hypoglycemic reaction in Type I diabetics.Some glucose intolerant individuals and "Sub Clinical"diabetics may demonstrate HGBA1C levels in this area. [facility], [address] [place] [address] Estimated Average Glucose (eAG) February 26, 2020 10:02am 105 mg/dl An A1C of 7% - the goal of diabetic therapy - is equivalentto an EAG of 154 mg/dl. [facility], [address] [place] [address] Microbiology Results Procedure Source Result Collection Date/Time Result Date/Time Result Comment Performing Site Urine Culture Urine,voided September 23, 2020 7:46pm September 252020 6:28am [facility], [address] [place] [address] Urine Culture Urine,voided September 09, 2020 10:50pm August 242020 8:14am [facility], [address] [place] [address] Urine Culture Urine,voided August 30, 2020 8:15pm August 2:09pm [facility], [address] [place] [address] Urine Culture Urine,voided August 09, 2020 8:06pm August 11, 2020 7:16am [facility], [address] [place] [address] Urine Culture Urine,clean catch August 03, 2020 2:50pm August 04, 2020 11:45am [facility], [address] [place] [address] 17293 Urine Culture Urine,voided July 01, 2020 9:30pm June 232019 7:24am [facility], [address] [place] [address] 56803 Urine Culture Urine,voided May 18, 2020 1:15am Septembe r 2019 11:25am [facility], [address] [place] [address] 26231 Urine Culture Urine,clean catch March 25, 2020 9:05am March 26, 2020 1:36pm [facility], [address] [place] [address] 70778 Urine Culture Urine,clean catch March 11, 2020 12:00pm March 12, 020 1:24pm [facility], [address] [place] [address] 28097 Urine Culture Urine,voided March 05, 2020 3:29pm March 06 9:18am [facility], [address] [place] [address] 37342 Urine Culture Urine,voided March 02, 2020 11:48am March 03, 2 020 8:26am [facility], [address] [place] [address] 37904 Streptococcus Rapid Screen Throat March 13, 2020 10:34am March 14, 2 020 8:58am [facility], [address] [place] [address] 47067 Streptococcus Rapid Screen Throat March 13, 2020 10:34am March 13, 2 020 11:04am [facility], [address] [place] [address] 77602 Blood Culture Venous blood No growth. July 01, 2020 9:40pm June 232019 9:46pm [facility], [address] [place] [address] 16522 SARS-CoV-2 (PCR) Interpretation Naso pharyngeal No Organisms Detected July 01, 2020 9:45pm July 01, 2020 10:29pm [facility], [address] [place] [address] 91457 Nasal BinaxNow Covid - 19 Ag Negative July 30, 2020 9:45am July 302019 11:56am [facility], [address] [place] [address] 72467 Influenza-Like Illness (PCR) Nasopharyngea l Sars-Cov-2 Not Detected September 23, 2020 7:49pm September 23, 2020 9:05pm [facility], [address] [place] [address] 11010 Nasopharyngeal Influen za A Not Detected September 23, 2020 7:49pm September 232020 9:05pm [facility], [address] [place] [address] 78096 Nasopharyngeal Influen za B Not Detected September 23, 2020 7:49pm September 232020 9:05pm [facility], [address] [place] [address] 54534 Nasopharyngeal September 23, 2020 7:49pm September 23, 2020 9:05pm [facility], [address] [place] [address] 45704 Influenza-Like Illness (PCR) Nasopharyngea l No Organisms Detected August 22, 2020 6:22am August 22, 2020 7:41am [facility], [address] [place] [address] 00665 Nasopharyngeal August 22, 2020 6:22am August 22, 2020 7:41am [facility], [address] [place] [address] 46128 Gastrointestinal Tract Panel (PCR) Stool C. difficile toxin detected May 17, 2020 3:03pm May 17, 2020 5:25pm [facility], [address] [place] [address] 66106 Respiratory Panel (PCR) Nasopharyngeal No Organisms Detected May 18, 2020 1:40am May 18, 2020 2:49am [facility], [address] [place] [address] Diagnostic Imaging Reports Report Dictated Date/Time Dictated By Status Radiology Report February 28, 2020 9:48am Oliverio Chen MD completed [place] [id number] [facility] [place] [address] [phone] NAME SEX PT STATUS ACCOUNT NUMBER ANNA MARIE BELTRAN REG REF [id number] ORDERING PHYSICIAN LOCATION MEDICAL RECORD NO. Jose Kramer DO [id number] ATTENDING PHYSICIAN DATE OF DATE OF EXAM/TIME NiaJose 1995 02/28/20826 TYPE / EXAM US Abdomen [...] 02, 2020 1:53pm Warren Bourne MD completed [facility] [address] [place] [address] [phone] NAME SEX PT STATUS ACCOUNT NUMBER ANNA MARIE BELTRAN [facility] [id number] ORDERING PHYSICIAN LOCATION MEDICAL RECORD NO. Sameer Islas MD ER [id number] ATTENDING PHYSICIAN DATE OF DATE OF EXAM/TIME Jose Kramer DO 1995 03/02/20 / 1330 TYPE / EXAM CT Abd/pel w/ contrast [...] Reported By Warren Bourne MD on 03/02/20 0395 Signed By Warren Bourne MD on 03/02/20 6030 Date Time CC: Jose Kramer DO; Warren Bourne MD Techn: MARCIN Trans Dt/Tm: Trans by: DT Prt Dt/Tm: : Total DLP = 1121.00 mGy-cm : Total Radiation Dose = 16.8150 mSv Lifetime Dose: 16.8150 mS v Radiology Report March 12, 2020 2:59pm Oliverio Chen MD completed [facility] [address] [place] [address] [phone] NAME SEX PT STATUS ACCOUNT NUMBER ANNA MARIE BELTRAN REG REF [id number] ORDERING PHYSICIAN LOCATION MEDICAL RECORD NO. Pola Meadows MD [id number] ATTENDING PHYSICIAN DATE OF DATE OF EXAM/TIME Jose Kramer DO 1995 03/12/20 / 1320 TYPE / EXAM US Pelvic complete REASON [...] Reported By Oliverio Chen MD on 03/12/20 2019 Signed By Oliverio Chen MD on 03/12/20 1501 Date Time CC: Jose Kramer DO; Oliverio Chen MD Techn: FREST Trans Dt/Tm: Trans by: DT Prt Dt/Tm: : Total DLP = 0.00 mGy-cm : Total Radiation Dose = 0.0000 mSv Lifetime Dose: 16.8150 mSv Radiology Report March 25, 2020 10:18am Oliverio Chen MD completed [address] [address] [phone] NAME SEX PT STATUS ACCOUNT NUMBER ANNA MARIE BELTRAN [facility] ER [id number] ORDERING PHYSICIAN LOCATION MEDICAL RECORD NO. Hiren Perez MD ER [id number] ATTENDING PHYSICIAN DATE OF DATE OF EXAM/TIME [...] Dt/Tm: : Total DLP = 0.00 mGy-cm Fluoroscopy Time (in secs): Radiology Report May 17 9:41pm Ulisses Sethi MD completed [address] [address] [phone] NAME SEX PT STATUS ACCOUNT NUMBER BELTRANANNA MARIE Saavedra [facility] ER [id number] ORDERING PHYSICIAN LOCATION MEDICAL RECORD NO. Mikhail Sheriff MD ER [id number] ATTENDING PHYSICIAN DATE OF DATE OF EXAM/TIME [...] CC: Trice Aj; Ulisses Sethi MD Techn: YAULU Trans Dt/Tm: Trans by: DT Prt Dt/Tm: : Total DLP = 1196.00 mGy-cm : Total Radiation Dose = 17.9400 mSv Lifetime Dose: 34.7550 mS v Radiology Report July 01, 2020 10:55p m Telly Robledo MD completed [place] [address] [phone] NAME SEX PT STATUS ACCOUNT NUMBER ANNA MARIE BELTRAN [facility] ER [id number] ORDERING PHYSICIAN LOCATION MEDICAL RECORD NO. Mikhail Sheriff MD ER [id number] ATTENDING PHYSICIAN DATE OF DATE OF EXAM/TIME [...] Dt/Tm: : Total DLP = 0.00 mGy-cm Fluoroscopy Time (in secs): Radiology Report July 01, 2020 11:07p m Niels Wilkerson MD completed [facility] [address] [place] [address] [phone] NAME SEX PT STATUS ACCOUNT NUMBER ANNA MARIE BELTRAN [facility] [id number] ORDERING PHYSICIAN LOCATION MEDICAL RECORD NO. Mikhail Sheriff MD ER [id number] ATTENDING PHYSICIAN DATE OF DATE OF EXAM/TIME Nicol Sebastian YELITZA 1995 07/01/202115 TYPE / EXAM CT [...] on 07/01/202306 Date Time CC: Nicol Sebastian; Niles Wilkerson MD Techn: YAULU Trans Dt/Tm: Trans by: DT Prt Dt/Tm: : Total DLP = 1469.00 mGy-cm : Total Radiation Dose = 22.0350 mSv Lifetime Dose: 56.7900 mS v Radiology Report August 03, 2020 7:33p m Gibran Villa MD completed [facility] [address] [place] [id number] [phone] NAME SEX PT STATUS ACCOUNT NUMBER ANNA MARIE BELTRAN [facility] [id number] ORDERING PHYSICIAN LOCATION MEDICAL RECORD NO. Daljit Alex MD ER [id number] ATTENDING PHYSICIAN DATE OF DATE OF EXAM/TIME [...] 2020 7:59p m Telly Robledo MD completed [facility] [address] [place] [address] [phone] NAME SEX PT STATUS ACCOUNT NUMBER ANNA MARIE BELTRAN [facility] ER [id number] ORDERING PHYSICIAN LOCATION MEDICAL RECORD NO. Daljit Alex MD ER [id number] ATTENDING PHYSICIAN DATE OF DATE OF EXAM/TIME [...] MD on 08/03/201958 Date Time CC: Nicol eSbastian; Telly Robledo MD Techn: FREST Trans Dt/Tm: Trans by: DT Prt Dt/Tm: : Total DLP = 0.00 mGy-cm : Total Radiation Dose = 0.0000 mSv Lifetime Dose: 56.7900 mSv Radiology Report August 03, 2020 7:34p m Gibran Villa MD completed [place] [address] [place] [address] [phone] NAME SEX PT STATUS ACCOUNT NUMBER ANNA MARIE BELTRAN [facility] ER [id number] ORDERING PHYSICIAN LOCATION MEDICAL RECORD NO. Daljit Alex MD ER [id number] ATTENDING PHYSICIAN DATE OF DATE OF EXAM/TIME Nicol Sebastian YELITZA 1995 08/03/201858 TYPE / EXAM US OB Ultrasound <14 weeks REASON FOR EXAM RLQ PAIN; R/O ECTOPIC [address] [address] [phone] NAME SEX PT STATUS ACCOUNT NUMBER ANNA MARIE BELTRAN [facility] ER [id number] ORDERING PHYSICIAN LOCATION MEDICAL RECORD NO. Daljit Alex MD ER [id number] ATTENDING PHYSICIAN DATE OF DATE OF EXAM/TIME Nicol Sebastian YELITZA 1994 08/03/201857 TYPE / EXAM US OB [...] mSv Reported By Gibran Villa MD on 08/03/20 193 Signed By Gibran Villa MD on 08/06/20 1242 Date Time CC: Nicol Sebastian; Gibran Villa MD Techn: FREST Trans Dt/Tm: Trans by: DT Prt Dt/Tm: : Total DLP = 0.00 mGy-cm : Total Radiation Dose = 0.0000 mSv Lifetime Dose: 56.7900 mSv Radiology Report August 09, 2020 9:02p m Telly Robledo MD completed [place] [id number] [place], [place] [id number] [phone] NAME SEX PT STATUS ACCOUNT NUMBER ANNA MARIE BELTRAN [facility] [id number] ORDERING PHYSICIAN LOCATION MEDICAL RECORD NO. Mikhail Sheriff MD ER [id number] ATTENDING PHYSICIAN DATE OF DATE OF EXAM/TIME Nicol Sbeastian NP 1994 08/09/202038 TYPE / EXAM US OB Ultrasound <14 weeks REASON FOR EXAM Gen abd pain. +HCG ANNA MARIE BELTRAN [id number] 1994 ADDENDUM Clinical History/Indication for Exam: Gen [...] 14, 2020 11:09am Oliverio Chen MD completed [place] [address] [place] [address] [phone] NAME SEX PT STATUS ACCOUNT NUMBER ANNA MARIE BELTRAN [facility] [id number] ORDERING PHYSICIAN LOCATION MEDICAL RECORD NO. Jarret Herbert MD [id number] ATTENDING PHYSICIAN DATE OF DATE OF EXAM/TIME Nicol Sebastian NP 1994 08/14/20915 TYPE / EXAM US OB Ultrasound <14 weeks REASON FOR EXAM FOLLOW UP SUBCHOR/ EARLY COMPARISON: August 19, 2020 and 2019 FINDINGS: Gestation: Single [place]-rump length: Singlemm compatible with a Single week Single day gestational age. Yolk sac: Not seen No heart rate detected. Uterus: 8.5 x 4.6 x 7.0cm. A subchorionic hemorrhage is still seen. Average ultrasound age of 5 weeks 6 days. EDC: April 10, 2021. [place]-rump length: 3.4mm IMPRESSION: 1. Gestational sac measurements, unchanged. 2. Subarachnoid hemorrhage is still seen. 3. Linear intraamniotic echogenicity, possibly the pole. No heart rate detected. Reported By Oliverio Chen MD on 08/14/20 1109 Signed By Oliverio Chen MD on 08/14/20 1114 Date Time CC: Nicol Sebastian; Oliverio Chen MD Techn: FREST Trans Dt/Tm: Trans by: DT Prt Dt/Tm: [id number]: Total DLP = 0.00 mGy-cm 4621-7361: Total Radiation Dose = 0.0000 mSv Lifetime Dose: 56.7900 mSv Radiology Report August 09, 2020 9:05p vivian Robledo MD completed [facility] [address] [place] [address] [phone] NAME SEX PT STATUS ACCOUNT NUMBER ANNA MARIE BELTRAN [facility] ER [id number] ORDERING PHYSICIAN LOCATION MEDICAL RECORD NO. Mikhail Sheriff MD ER [id number] ATTENDING PHYSICIAN DATE OF DATE OF EXAM/TIME RomuloNicol YELITZA 1995 08/09/202039 TYPE / EXAM US OB Transvaginal REASON FOR EXAM PAIN [id number] [place] [address] [phone] NAME SEX PT STATUS ACCOUNT NUMBER ANNA MARIE BELRTAN [facility] ER [id number] ORDERING PHYSICIAN LOCATION MEDICAL RECORD NO. Mikhail Sheriff MD ER [id number] ATTENDING PHYSICIAN DATE OF DATE OF EXAM/TIME Nicol Sebastian NP 1995 08/09/202038 TYPE / EXAM US OB Ultrasound <14 weeks REASON FOR EXAM Gen abd pain. +HCG ANNA MARIE BELTRAN [id number] 1995 ADDENDUM Clinical History/Indication for Exam: Gen [...] MD Techn: PAU Ocampo Dt/Tm: Trans by: LUPIS Prt Dt/Tm: : Total DLP = 0.00 mGy-cm : Total Radiation Dose = 0.0000 mSv Lifetime Dose: 56.7900 mSv Reported By Telly Robledo MD on 08/09/202104 Signed By Telly Robledo MD on 08/14/201244 Date Time CC: Nicol Sebastian; Telly Robledo MD Techn: PAU Trans Dt/Tm: Trans by: DT Prt Dt/Tm: : Total DLP = 0.00 mGy-cm : Total Radiation Dose = 0.0000 mSv Lifetime Dose: 56.7900 mSv Radiology Report August 21, 2020 10:47am Oliverio Chen MD completed [facility] [address] [place] [id number] [phone] NAME SEX PT STATUS ACCOUNT NUMBER ANNA MARIE BELTRAN PRE REF [id number] ORDERING PHYSICIAN LOCATION MEDICAL RECORD NO. Jarret Herbert MD [id number] ATTENDING PHYSICIAN DATE OF DATE OF EXAM/TIME Nicol Sebastian NP 1995 08/21/201016 TYPE / EXAM US OB Transvaginal REASON FOR EXAM EVAL FOR IUP COMPARISON: August 14, 2020. FINDINGS: Gestation: Single [place]-rump length: No pole seen. Gestational sac: 13.4 [...] 21, 2020 10:47am Oliverio Chen MD completed [facility] [address] [place] [id number] [phone] NAME SEX PT STATUS ACCOUNT NUMBER ANNA MARIE BELTRAN PRE REF [id number] ORDERING PHYSICIAN LOCATION MEDICAL RECORD NO. Jarret Herbert MD [id number] ATTENDING PHYSICIAN DATE OF DATE OF EXAM/TIME Nicol Sebastian NP 1995 08/21/201016 TYPE / EXAM US OB Ultrasound <14 weeks REASON FOR EXAM Re-evaluation for subchor. COMPARISON: August 14, 2020. FINDINGS: Gestation: Single [place]-rump length: No pole seen. Gestational sac: 13.4 [...] Directive Response Recorded Date/Time Advanced Directive No 2020 9:44am MOLST No September 24 9:44am Advance Directives on File or in chart? No September 24, 2020 9:44am Does Patient have a DNR? No September 24, 2020 9:44am Healthcare Proxy No 2020 9:44am Living Will No September 24, [...] PAIN ABDOMINAL PAIN, BLOOD IN URINE/STOOL PAIN COSTUME SPECIALIST Initial Visit Hernia COSTUME SPECIALIST SUBCHORIONIC BLEED O02.1/SUCTION D+C 03692 ANEMBRYONIC GESTATION COSTUME SPECIALIST Post op care ABDOMINAL PAIN Telemed Visit COSTUME SPECIALIST Office Visit COSTUME SPECIALIST Post op care R19.7 HEADACHE, NAUSEA, DIZZY Telemed Visit E66.01 Amb Documentation ABDOMINAL PAIN Amb Documentation Telemed Visit COSTUME SPECIALIST Pelvic pain Reason for Visit Anxiety Depression GERD (gastroesophageal [...] finger Abdominal pain GERD (gastroesophageal reflux disease) Encounters Encounter Location(s) Ar rival/Admit Date Discharge/Depart Date Provider(s) Registered Referred [facility] February 20, 2020 8:12am Bianka Sen MD Departed Physician/Provider Office Visit [facility] February 20, 2020 10:22am February 20, 2020 11:42am Cesario Metcalf Registered Referred [facility] February 26, 2020 9:54am Jose Kramer DO Registered Referred [facility] February 28, 2020 6:57am Jose Kramer DO Departed Emergency [facility] ER March 02, 2020 10:34am March 02, 2020 1:45pm null Departed Emergency [facility] ER March 05, 2020 2:01pm March 05, 2020 4:29pm null Departed Physician/Provider Office Visit [facility] March 11, 2020 9:28am March 11, 2020 10:13am Trice dimas NP Departed Physician/Provider Office Visit [facility] March 11, 2020 10:17am March 11, 2020 11:49am Pola Meadows MD Registered Referred [facility] March 11, 2020 11:56am Trice Aj NP Registered Referred [facility] March 12, 2020 11:38am Pola Meadows MD Departed Physician/Provider Office Visit [facility] March 12, 2020 12:22pm March 12, 2020 2:13pm Trice holbrook NP Departed Emergency [facility] ER March 13, 2020 9:18am March 13, 2020 10:18am null Departed Emergency [facility] ER March 25, 2020 7:55am March 25, 2020 9:27am null Departed Physician/Provider Office Visit [facility] March 25, 2020 2:51pm March 25, 2020 2:52pm Nathalie valerio Registered Referred [facility] Drop Off March 25, 2020 3:08pm Nathalie Pace Departed Physician/Provider Office Visit [facility] March 28, 2020 7:01am March 28, 2020 7:47am Trice dimas NP Registered Outpatient [facility] Internal Medicine April 05, 2020 8:29am Trice Aj NP [facility], 2020 1:48pm Trice Aj NP Discharged Inpatient [facility] May 18, 2020 12:18am Septemb er 2019 2:40pm Tad Menendez MD Registered Outpatient [facility] May 20, 2020 2:25pm Amara Garcia RN Departed Physician/Provider Office Visit [facility] May 23, 2020 7:51am May 23, 2020 8:35am Trice Aj NP Departed Physician/Provider Office Visit [facility] May 30, 2020 9:25am May 30, 2020 11:56am Nicol rincon NP Departed Physician/Provider Office Visit [facility] June 10, 2020 8:26am June 10, 2020 8:58am Jarret Herbert MD Departed Physician/Provider Office Visit [facility] June 28, 2020 3:47pm June 28, 2020 4:33pm Nicol Sebastian NP Departed Physician/Provider Office Visit [facility] July 01, 2020 9:04am July 01, 2020 11:04am Nicol Sebastian NP Registered Referred [facility] July 01, 2020 9:47am Kiersten Schulz DO Departed Emergency [facility] ER July 01, 2020 8:40pm July 02, 2020 12:20am null Departed Physician/Provider Office Visit [facility] July 04, 2020 11:14am July 04, 2020 12:47pm Nicol Sebastian NP Departed Physician/Provider Office Visit [facility] July 25, 2020 9:54am July 25, 2020 10:57am Nicol Sebastian NP Registered Referred [facility] July 30, 2020 9:45am Jaki Elias MD Departed Emergency [facility] ER August 03, 2020 1:29pm August 03, 2020 8:21pm null Departed Emergency [facility] ER August 09, 2020 6:19pm August 10, 2020 5:45am null Registered Referred [facility] August 14, 2020 9:29am Jarret Herbert MD Departed Physician/Provider Office Visit [facility] August 14, 2020 9:41am August 14, 2020 11:45am Patrick Herbert MD Departed Physician/Provider Office Visit [facility] Surgery August 20, 2020 9:00am August 20, 2020 9:20am Barrett Sparks MD Departed Physician/Provider Office Visit [facility] August 21, 2020 10:25am August 21, 2020 11:32am Jarret Herbert MD Registered Referred [facility] August 21, 2020 11:17am Jarret Herbert MD Departed Surgical Day Care [facility] August 22, 2020 6:20am August 22, 2020 10:05am Patrick Herbert MD Registered Outpatient [facility] August 22, 2020 8:00am Jarret Herbert MD Departed Physician/Provider Office Visit [facility] August 27, 2020 10:07am August 27, 2020 10:41am Jarret Herbert MD Departed Emergency [facility] August 30, 2020 6:50pm August 30, 2020 9:08pm null Departed Physician/Provider Office Visit [facility] September 02, 2020 10:06am September 02, 2020 4:34pm Jose Kramer DO Departed Physician/Provider Office Visit [facility] September 03, 2020 9:28am September 03, 2020 11:05am Jarret Herbert MD Departed Physician/Provider Office Visit [facility] September 05, 2020 11:10am September 05, 2020 11:48am Jarret Herbert MD Registered Referred [facility] September 05, 2020 11:47am Jarret Herbert MD Departed Emergency [facility] ER September 09, 2020 10:24pm September 10, 2020 1:21am null Departed Physician/Provider Office Visit [facility] September 11, 2020 11:04am September 11, 2020 11:59pm Jose Kramer DO Registered Clinical [facility] September 13, 2020 12:40pm Jose Kramer DO Registered Outpatient [facility] September 19, 2020 8:41pm Daniela Burnham Departed Emergency [facility] ER September 23, 2020 6:08pm September 23, 2020 9:16pm null Registered Outpatient [facility] September 24, 2020 7:47pm Daniela Burnham Departed Physician/Provider Office Visit [facility] September 25, 2020 3:11pm September 25, 2020 3:57pm Jose Kramer DO Departed Physician/Provider Office Visit [facility] September 27, 2020 10:11am September 27, 2020 11:05am Jarret Herbert MD Recent Diagnosis Onset Date Anxiety Depression [...] finger Abdominal pain GERD (gastroesophageal reflux disease) Assessments Diagnosis Onset Date Res olution Status [...] pain chronic GERD (gastroesophageal reflux disease) chronic Family History Relationship Condition A ge at Onset Recorded Date/Time Not Specified Cerebrovascular accide nt (CVA) Unknown Not Specified Hernia Unk nown Functional Status Observation Response Neil e Recorded Functional Status Complete [place] May 18, 2020 1:30am Goals Goals may be documented in an alternate section. Immunizations No Immunization Information Available Mental Status Observation Response Neil e Recorded Cognitive Status Normal Cognition May 18, 2020 1:30am Impairments No impairments or barriers September 24, 2020 9:44am Medical Equipment No Medical Equipment Information available Insurance Providers Guarantor ANNA MARIE BELTRAN Address [address] [place] [address] Contact Info. Home Phone: Payer Policy Id Coverage Id Subscriber's Name Subscriber Id Effective Date Expiration Date [facility] [id number] ANNA MARIE BELTRAN [id number] [facility] [id number] ANNA MARIE BELTRAN [id number] MEDICAID [facility] [id number] ANNA MARIE BELTRAN [id number] MEDICAID [id number] ANNA MARIE BELTRAN [id number] Self Pay Self N/A Plan of Treatment [...] condition worsens, then go to ER f/u knife blade polisher needs improvement f/u mental health if condition worsens, then go to ER f/u rn mental health if condition worsens, then go [...] a spontaneous miscarriage at home over the holid ay. She chooses to wait for the [...] aware of the patient as well. Awaiting manager hardware referral. Increase diet and exercise. Referral to [place] [facility] for chronic inflammation. Elevate legs. 26 [...] inside the ear. Follow up with GI Dr. July 26, 2020 for upper GI. [employer] rice, applesauce, bananas, and toast. Resolved. Upper GI on July 26, 2020. Eat BRAT diet. Bannanas, Rice, applesuce, and toast. Avoid eating late at night or 3 hours before sleep. Tylenol for pain. Go to ER if increased pain or problems. Sleep study ordered. Use good sleep hygiene. Do not sleep during the day. Diet and exercise. Continue to follow up with HAYDEE Schultz. Omeprazole 20 mg bid. Patient is somewhat [...] to be c areful. Follow up with HAYDEE Schultz on the of this month. Phenergan for [...] that she has had counseling in the [facility], but symptoms are worse at this time, d/t recent move to [place]. Will continue current meds and will refer to psych. Hospice Case Manager appt with behavioral health this week. Taking [...] palpation without abnormal physical find ings. Doubt COSTUME SPECIALIST cause but send urine culture in case. Plan abdominal/pelvic ultrasound. Mily t declined pelvic exam and stressed that this does not allow us to fully evaluate her complaints. Follow-up 2 weeks after ultrasound. If pain continues with noted GI changes, consider referral yoana avendano to gastroenterology. Patient is requesting to change [...] Provider Address Jose Kramer DO Email: [email or web address] Phone: [address] [place] [phone] Jarret Herbert MD Email: [email or web address] Phone: [address] [place] [phone] c diff - treated with PO vancomycin Trice dimas NP Email: [email or web address] Phone: [facility] [address] [facility] [phone] Call for an appointment to be seen in the next 48 hours Jose Kramer DO Email: [email or web address] Phone: [address] [place] [phone] Call for an appointment for follow-up for Wednesday or Wednesday Jose Kramer DO Email: [email or web address] Phone: [address] [place] [phone] R10.10 - Upper abdominal pain, unspecifi ed,K21.9 - Gastro-esophageal reflux disease without esophagitis September 25, 2020 allergy R21 - Rash and other nonspecific skin eruption September 11, 2020 Fide Hernandez PA-C [address] [place] [address] R79.89 - Other specified abnormal findin gs of blood chemistry,N17.9 - Acute kidney failure, unspecified September 02, 2020 rn mental health Future Procedures Future procedure information is unavailable [...] September 24, 2020 9:44am Substance Use No 2020 9:44am Assigned Sex Female Vital Signs [...] 02, 2020 11:34am Respiratory rate 16 /min 12-24 March 02, 2020 11:34am Oxygen saturation by Pulse [...] 05, 2020 3:02pm Respiratory rate 20 /min 12-24 March 05, 2020 3:02pm Oxygen saturation by Pulse [...] 11, 2020 10:48am Respiratory rate 20 /min -March 11, 2020 10:48am Oxygen saturation by Pulse [...] 11, 2020 12:10pm Respiratory rate 18 /min 08-15March 11, 2020 12:10pm Oxygen saturation by Pulse [...] 2020 10:41am Heart Rate 102 /min 60-1 March 13, 2020 10:41am Respiratory rate 16 /min 12-March 13, 2020 10:41am Oxygen saturation by Pulse [...] 25, 2020 8:56am Respiratory rate 20 /min -March 25, 2020 8:56am Oxygen saturation by Pulse [...] 28, 2020 8:21am Respiratory rate 20 /min 12-March 28, 2020 8:21am Oxygen saturation by Pulse [...] 23, 2020 9:01am Respiratory rate 18 /min 08-15May 23, 2020 9:01am BP Systolic 126 mm[Hg] May 23, 2020 9:01am BP Diastolic 76 mm[Hg] May 23, 2020 9:01am BMI (Body Mass Index) 44.6 kg/m2 May 23, 2020 9:01am Height 65 [in_i] May 30, 2020 10:36am Weight 271.00 [lb_av] May 30, 2020 10:36am Heart Rate 90 /min 60-100 May 30, 2020 10:36am Respiratory rate 18 /min 08-15May 30, 2020 10:36am Oxygen saturation by Pulse [...] 10, 2020 9:32am Respiratory rate 18 /min 12-June 10, 2020 9:32am Oxygen saturation by Pulse oximetry 98 % 95- 100 June 10, 2020 9:32am BP Systolic 124 mm[Hg] June 10, 2020 9:32am BP Diastolic 76 mm[Hg] June 10, 2020 9:32am BMI (Body Mass Index) 45.4 kg/m2 June 10, 2020 9:32am Height 65 [in_i] June 28, 2020 3:53pm Weight 273.12 [lb_av] June 28, 2020 3:53pm Heart Rate 107 /min 60-1 00 June 28, 2020 3:53pm Respiratory rate 18 /min -June 28, 2020 3:53pm Oxygen saturation by Pulse oximetry 99 % 95- 100 June 28, 2020 3:53pm BP Systolic 132 mm[Hg] June 28, 2020 3:53pm BP Diastolic 82 mm[Hg] June 28, 2020 3:53pm BMI (Body Mass Index) 45.4 kg/m2 June 28, 2020 3:53pm Height 65 [in_i] July 01, 2020 9:15am Weight 277.12 [lb_av] July 01, 2020 9:15am Heart Rate 107 /min 60-1 00 July 01, 2020 9:15am Respiratory rate 18 /min [...] 25, 2020 9:55am Heart Rate 89 /min 60-July 25, 2020 9:55am Respiratory rate 18 /min 08-15July 25, 2020 9:55am Oxygen saturation by Pulse [...] 10, 2020 5:39am Respiratory rate 16 /min 12-August 10, 2020 5:39am Oxygen saturation by Pulse [...] 20, 2020 9:01am Respiratory rate 18 /min -August 20, 2020 9:01am Oxygen saturation by Pulse [...] 21, 2020 10:54am Respiratory rate 18 /min 12-August 21, 2020 10:54am Oxygen saturation by Pulse [...] 30, 2020 7:14pm Respiratory rate 20 /min 12-August 30, 2020 7:14pm Oxygen saturation by Pulse [...] 05, 2020 11:16am Respiratory rate 18 /min -September 05, 2020 11:16am Oxygen saturation by Pulse [...] 09, 2020 10:28pm Respiratory rate 18 /min -September 09, 2020 10:28pm Oxygen saturation by Pulse [...] 23, 2020 6:09pm Respiratory rate 20 /min 12-24 September 23, 2020 6:09pm Oxygen saturation by Pulse [...] 27, 2020 10:24am Respiratory rate 18 /min -September 27, 2020 10:24am Oxygen saturation by Pulse oximetry 98 % 95- 100 September 27, 2020 10:24am BP Systolic 118 mm[Hg] September 27, 2020 10:24am BP Diastolic 82 mm[Hg] September 27, 2020 10:24am BMI (Body Mass Index) 45.9 kg/m2 September 27, 2020 10:24am
--- OUTSIDE RECORDS SUMMARY | 2020-10-18 09:40 | CCD | Continuity of Care Document ---
Author Author [facility] Address [address] [place] [address] Phone Support Name Relationship Address Phone Jose Kramer PRS [address] [place] [address] Polly Sen PRS [address] [place] [address] John Islas PRS [address] [place] [address] [place] [address] Pola Meadows [place] [address] Pola Meadows PRS [address] [place] [address] Hiren Perez PRS [address] [place] [address] Nathalie Pace PRS [address] [place] [address] Verónica Sheriff PRS [address] [place] [address] Tad Menendez PRS [address] [place] [address] Amara Garcia PRS Unknown Unavailable Nicol Sebastian PRS [address] [place] [address] Darnell Herbert PRS [address] [place] [address] Kiersten Schulz PRS [address] [place] [address] [place] [address] Lazaro Alexod PRS [address] [place] [address] Niels Valdez PRS [address] [place] [address] Dora Jainbere PRS [address] [place] [address] Barrett Sparks PRS [address] [place] [address] Dmitriy Peraza PRS [address] [place] [address] [place] [address] Sravani Balderrama PRS [address] [place] [address] Niels Edward PRS [address] [place] [address] Daniela Burnham PRS [address] [place] [address] Ramirez Lopez PRS [address] [place] [address] Allergies, Adverse Reactions, Alerts Allergen Type Severity [...] Numbness and tingling of both legs Active Asthma Active Hepatomegaly Active Inactive/Resolved Problems Medical Problem [...] 23, 2020 active Escherichia coli 0157 Culture Februa ry 2020 active Urine Culture September 09, [...] July 01, 2020 completed SARS-CoV-2 (PCR) Interpretation rPasanth mber [address] Abd/pel w/ contrast [...] 23, 2020 8:05p m 10.2 10e3/uL 4.45-10.71 [facility], [address] [place] [address] 16855 White Blood Count September 09, 2020 11:50pm 10.6 10e3/uL 4.45-10.71 [facility], [address] [place] [address] 39921 White Blood Count September 05, 2020 12:03pm 10.3 10e3/uL 4.45-10.71 [facility], [address] [place] [address] [id number] White Blood Count August 30, 2020 8:15pm 11.3 10e3/uL 4.45-10.71 [facility], [address] [place] [address] White Blood Count August 09 0 7:35pm 9.9 10e3/uL 4.45-10.71 [facility], [address] [place] [address] White Blood Count August 14 0 9:31am 9.8 10e3/uL 4.45-10.71 [facility], [address] [place] [address] White Blood Count August 03 0 2:35pm 8.6 10e3/uL 4.45-10.71 [facility], [address] [place] [address] White Blood Count July 01, 2020 9:40p m 11.2 10e3/uL 4.45-10.71 [facility], [address] [place] [address] White Blood Count May 18 6:17am 9.3 10e3/uL 4.45-10.71 [facility], [address] [place] [address] White Blood Count March 25, 2020 8:11am 10.8 10e3/uL 4.45-10.71 [facility], [address] [place] [address] White Blood Count March 11, 2020 12:14pm 11.3 10e3/uL 4.45-10.71 [facility], [address] [place] [address] [id number] White Blood Count March 02, 2020 11:00am 10.3 10e3/uL 4.45-10.71 [facility], [address] [place] [address] White Blood Count February 26, 2020 10:02am 9.8 10e3/uL 4.45-10.71 [facility], [address] [place] [address] White Blood Count February 20, 2020 8:35am 8.8 10e3/uL 4.45-10.71 [facility], [address] [place] [address] 09342 Red Blood Count September 23, 2020 8:05pm 4.67 10e6/uL 4.20-5.40 [facility], [address] [place] [address] [id number] Red Blood Count September 09, 2020 11:50pm 4.49 10e6/uL 4.20-5.40 [facility], [address] [place] [address] 83238 Red Blood Count September 05, 2020 12:03pm 4.38 10e6/uL 4.20-5.40 [facility], [address] [place] [address] [id number] Red Blood Count August 30, 2020 8:15pm 4.26 10e6/uL 4.20-5.40 [facility], [address] [place] [address] 81976 Red Blood Count August 09, 2020 7:35pm 4.49 10e6/uL 4.20-5.40 [facility], [address] [place] [address] 28495 Red Blood Count August 14, 2020 9:31am 4.57 10e6/uL 4.20-5.40 [facility], [address] [place] [address] [id number] Red Blood Count August 03, 2020 2:35pm 4.47 10e6/uL 4.20-5.40 [facility], [address] [place] [address] 85054 Red Blood Count July 01, 2020 9:40pm 4.51 10e6/uL 4.20-5.40 [facility], [address] [place] [address] [id number] Red Blood Count May 18, 2020 6:17a m 4.10 10e6/uL 4.20-5.40 [facility], [address] [place] [address] 37936 Red Blood Count March 25, 2020 8:11am 4.25 10e6/uL 4.20-5.40 [facility], [address] [place] [address] [id number] Red Blood Count March 11, 2020 12:14pm 4.58 10e6/uL 4.20-5.40 [facility], [address] [place] [address] 35639 Red Blood Count March 02, 2020 11:00am 4.52 10e6/uL 4.20-5.40 [facility], [address] [place] [address] [id number] Red Blood Count February 26, 2020 10:02am 4.84 10e6/uL 4.20-5.40 [facility], [address] [place] [address] 35090 Red Blood Count February 20, 2020 8:35am 5.02 10e6/uL 4.20-5.40 [facility], [address] [place] [address] 97996 Hemoglobin September 23, 2020 8:05pm 11.9 g/dL 10.7-15.4 [facility], [address] [place] [address] Hemoglobin September 09, 2020 11:50pm 11.4 g/dL 10.7-15.4 [facility], [address] [place] [address] 33807 Hemoglobin September 05, 2020 12:03pm 10.8 g/dL 10.7-15.4 [facility], [address] [place] [address] 39213 Hemoglobin August 30, 2020 8:15pm 10.5 g/dL 10.7-15.4 [facility], [address] [place] [address] [id number] Hemoglobin August 09, 2020 7:35pm 11.4 g/dL 10.7-15.4 [facility], [address] [place] [address] 49938 Hemoglobin August 14, 2020 9:31am 11.4 g/dL 10.7-15.4 [facility], [address] [place] [address] 14007 Hemoglobin August 03, 2020 2:35pm 11.5 g/dL 10.7-15.4 [facility], [address] [place] [address] 20922 Hemoglobin July 01, 2020 9:40pm 11.8 g/dL 10.7-15.4 [facility], [address] [place] [address] 51785 Hemoglobin May 18, 2020 6:17am 10.9 g/dL 10.7-15.4 [facility], [address] [place] [address] 61526 Hemoglobin March 25, 2020 8:11am 11.5 g/dL 10.7-15.4 [facility], [address] [place] [address] 22757 Hemoglobin March 11, 2020 12:14pm 12.4 g/dL 10.7-15.4 [facility], [address] [place] [address] 90013 Hemoglobin March 02, 2020 11:00am 12.1 g/dL 10.7-15.4 [facility], [address] [place] [address] 65234 Hemoglobin February 26, 2020 10:02am 13.0 g/dL 10.7-15.4 [facility], [address] [place] [address] 97112 Hemoglobin February 20, 2020 8:35am 13.4 g/dL 10.7-15.4 [facility], [address] [place] [address] 35375 Hematocrit September 23, 2020 8:05pm 37.8 % 37-47 [facility], [address] [place] [address] 03778 Hematocrit September 09, 2020 11:50pm 35.9 % 37-47 [facility], [address] [place] [address] 57242 Hematocrit September 05, 2020 12:03pm 34.8 % 37-47 [facility], [address] [place] [address] 98590 Hematocrit August 30, 2020 8:15pm 34.4 % 37-47 [facility], [address] [place] [address] 75630 Hematocrit August 09, 2020 7:35pm 36.1 % 37-47 [facility], [address] [place] [address] 96331 Hematocrit August 14, 2020 9:31am 36.3 % 37-47 [facility], [address] [place] [address] 54193 Hematocrit August 03, 2020 2:35pm 36.1 % 37-47 [facility], [address] [place] [address] 65883 Hematocrit July 01, 2020 9:40pm 36.6 % 37-47 [facility], [address] [place] [address] 56057 Hematocrit May 18, 2020 6:17am 34.1 % 37-47 [facility], [address] [place] [address] 39316 Hematocrit March 25, 2020 8:11am 34.7 % 37-47 [facility], [address] [place] [address] 13609 Hematocrit March 11, 2020 12:14pm 37.2 % 37-47 [facility], [address] [place] [address] 84855 Hematocrit March 02, 2020 11:00am 36.9 % 37-47 [facility], [address] [place] [address] 18803 Hematocrit February 26, 2020 10:02am 39.4 % 37-47 [facility], [address] [place] [address] 16101 Hematocrit February 20, 2020 8:35am 41.0 % 37-47 [facility], [address] [place] [address] 92530 Mean Corpuscular Volume September 8:05pm 80.9 fl 80-96 [facility], [address] [place] [address] 98501 Mean Corpuscular Volume August 11:50pm 80.0 fl 80-96 [facility], [address] [place] [address] 19699 Mean Corpuscular Volume August 12:03pm 79.5 fl 80-96 [facility], [address] [place] [address] 92149 Mean Corpuscular Volume August 30, 2020 8:15pm 80.8 fl 80-96 [facility], [address] [place] [address] 06443 Mean Corpuscular Volume July h2019 7:35pm 80.4 fl 80-96 [facility], [address] [place] [address] 78974 Mean Corpuscular Volume July d2019 9:31am 79.4 fl 80-96 [facility], [address] [place] [address] 07921 Mean Corpuscular Volume July h2019 2:35pm 80.8 fl 80-96 [facility], [address] [place] [address] 48352 Mean Corpuscular Volume June 9:40pm 81.2 fl 80-96 [facility], [address] [place] [address] 23456 Mean Corpuscular Volume May 182019 6:17am 83.2 fl 80-96 [facility], [address] [place] [address] 02135 Mean Corpuscular Volume March 25, 2020 8:11am 81.6 fl 80-96 [facility], [address] [place] [address] 47827 Mean Corpuscular Volume March 11, 020 12:14pm 81.2 fl 80-96 [facility], [address] [place] [address] 92855 Mean Corpuscular Volume March 02, 020 11:00am 81.6 fl 80-96 [facility], [address] [place] [address] 40043 Mean Corpuscular Volume February 25 10:02am 81.4 fl 80-96 [facility], [address] [place] [address] 99764 Mean Corpuscular Volume February 19, 020 8:35am 81.7 fl 80-96 [facility], [address] [place] [address] 84678 Mean Corpuscular Hemoglobin September 23, 2020 8:05pm 25.5 pg 27-31 [facility], [address] [place] [address] 22693 Mean Corpuscular Hemoglobin September 09, 2020 11:50pm 25.4 pg 27-31 [facility], [address] [place] [address] 71415 Mean Corpuscular Hemoglobin September 05, 2020 12:03pm 24.7 pg 27-31 [facility], [address] [place] [address] 76741 Mean Corpuscular Hemoglobin August 30, 2020 8:15pm 24.6 pg 27-31 [facility], [address] [place] [address] 05768 Mean Corpuscular Hemoglobin August 09, 2020 7:35pm 25.4 pg 27-31 [facility], [address] [place] [address] 62177 Mean Corpuscular Hemoglobin August 14, 2020 9:31am 24.9 pg 27-31 [facility], [address] [place] [address] 65836 Mean Corpuscular Hemoglobin August 03, 2020 2:35pm 25.7 pg 27-31 [facility], [address] [place] [address] 08535 Mean Corpuscular Hemoglobin July 01, 2020 9:40pm 26.2 pg 27-31 [facility], [address] [place] [address] 35055 Mean Corpuscular Hemoglobin 2019 6:17am 26.6 pg 27-31 [facility], [address] [place] [address] 40974 Mean Corpuscular Hemoglobin March 252019 8:11am 27.1 pg 27-31 [facility], [address] [place] [address] 97204 Mean Corpuscular Hemoglobin February 12:14pm 27.1 pg 27-31 [facility], [address] [place] [address] 73305 Mean Corpuscular Hemoglobin February 11 h2019 11:00am 26.8 pg 27-31 [facility], [address] [place] [address] 33721 Mean Corpuscular Hemoglobin February 10:02am 26.9 pg 27-31 [facility], [address] [place] [address] 98310 Mean Corpuscular Hemoglobin January 8:35am 26.7 pg 27-31 [facility], [address] [place] [address] 92258 Mean Corpuscular Hemoglobin Concent September 23, 2020 8:05pm 31.5 g/dl [address] [place] [address] [facility]ATORY, [address] [place] [address] 67549 Mean Corpuscular Hemoglobin Concent September 09, 2020 11:50pm 31.8 g/dl [address] [place] [address] [facility]ORATORY, [address] [place] [address] 71380 Mean Corpuscular Hemoglobin Concent September 05, 2020 12:03pm 31.0 g/dl [address] [place] [address] LABORATORY, [address] [place] [address] 53418 Mean Corpuscular Hemoglobin Concent August 30, 2020 8:15pm 30.5 g/dl [address] [place] [address] LABORATORY, [address] [place] [address] 86452 Mean Corpuscular Hemoglobin Concent August 09, 2020 7:35pm 31.6 g/dl [address] [place] [address] LABORATORY, [address] [place] [address] 49147 Mean Corpuscular Hemoglobin Concent August 14, 2020 9:31am 31.4 g/dl [address] [place] [address] LABORATORY, [address] [place] [address] 41743 Mean Corpuscular Hemoglobin Concent August 03, 2020 2:35pm 31.9 g/dl [address] [place] [address] LABORATORY, [address] [place] [address] 11488 Mean Corpuscular Hemoglobin Concent July 01, 2020 9:40pm 32.2 g/dl [address] [place] [address] LABORATORY, [address] [place] [address] 98394 Mean Corpuscular Hemoglobin Concent May 18, 2020 6:17am 32.0 g/dl [address] [place] [address] LABORATORY, [address] [place] [address] 54238 Mean Corpuscular Hemoglobin Concent March 25, 2020 8:11am 33.1 g/dl [address] [place] [address] LABORATORY, [address] [place] [address] 08700 Mean Corpuscular Hemoglobin Concent March 11, 2020 12:14pm 33.3 g/dl [address] [place] [address] LABORATORY, [address] [place] [address] 51402 Mean Corpuscular Hemoglobin Concent March 02, 2020 11:00am 32.8 g/dl [facility], [address] [place] [address] 86593 Mean Corpuscular Hemoglobin Concent February 26, 2020 10:02am 33.0 g/dl [facility], [address] [place] [address] 39466 Mean Corpuscular Hemoglobin Concent February 20, 2020 8:35am 32.7 g/dl [address] [facility], [address] [place] [address] 27044 Red Cell Distribution Width September 23, 2020 8:05pm 16 % 11-15 [facility], [address] [place] [address] 27080 Red Cell Distribution Width September 09, 2020 11:50pm 16 % 11-15 [facility], [address] [place] [address] 22906 Red Cell Distribution Width September 05, 2020 12:03pm 16 % 11-15 [facility], [address] [place] [address] 17772 Red Cell Distribution Width August 30, 2020 8:15pm 15 % 11-15 [facility], [address] [place] [address] 68447 Red Cell Distribution Width August 09, 2020 7:35pm 14 % 11-15 [facility], [address] [place] [address] 74049 Red Cell Distribution Width August 14, 2020 9:31am 15 % 11-15 [facility], [address] [place] [address] 50759 Red Cell Distribution Width August 03, 2020 2:35pm 14 % 11-15 [facility], [address] [place] [address] 52739 Red Cell Distribution Width July 01, 2020 9:40pm 14 % 11-15 [facility], [address] [place] [address] 23523 Red Cell Distribution Width 2019 6:17am 14 % 11-15 [facility], [address] [place] [address] 59396 Red Cell Distribution Width March 252019 8:11am 15 % 11-15 [facility], [address] [place] [address] 21618 Red Cell Distribution Width February 12:14pm 15 % 11-15 [facility], [address] [place] [address] 51506 Red Cell Distribution Width February h2019 11:00am 14 % 11-15 [facility], [address] [place] [address] Red Cell Distribution Width February 10:02am 14 % 11-15 [facility], [address] [place] [address] Red Cell Distribution Width January 8:35am 15 % 11-15 [facility], [address] [place] [address] 18848 Platelet Count September 23, 2020 8:05pm 404 10e3/ul 130-472 [facility], [address] [place] [address] 51832 Platelet Count September 09, 2020 11:50pm 392 10e3/ul 130-472 [facility], [address] [place] [address] 34488 Platelet Count September 05, 2020 12:03pm 417 10e3/ul 130-472 [facility], [address] [place] [address] 03853 Platelet Count August 30, 2020 8:15pm 422 10e3/ul 130-472 [facility], [address] [place] [address] Platelet Count August 09, 2020 7:35pm 423 10e3/ul 130-472 [facility], [address] [place] [address] 72778 Platelet Count August 14, 2020 9:31am 429 10e3/ul 130-472 [facility], [address] [place] [address] 37357 Platelet Count August 03, 2020 2:35pm 372 10e3/ul 130-472 [facility], [address] [place] [address] 70936 Platelet Count July 01, 2020 9:40pm 392 10e3/ul 130-472 [facility], [address] [place] [address] 28337 Platelet Count May 18, 2020 6:17am 332 10e3/ul 130-472 [facility], [address] [place] [address] 48878 Platelet Count March 25, 2020 8:11am 395 10e3/ul 130-472 [facility], [address] [place] [address] 68781 Platelet Count March 11, 2020 12:14pm 460 10e3/ul 130-472 [facility], [address] [place] [address] 26533 Platelet Count March 02, 2020 11:00am 410 10e3/ul 130-472 [facility], [address] [place] [address] Platelet Count February 26, 2020 10:02am 436 10e3/ul 130-472 [facility], [address] [place] [address] Platelet Count February 20, 2020 8:35am 479 10e3/ul 130-472 [facility], [address] [place] [address] 06553 Mean Platelet Volume September 23, 021 8:05pm 9.5 fl 9.1-13.1 [facility], [address] [place] [address] Mean Platelet Volume September 09, 021 11:50pm 8.6 fl 9.1-13.1 [facility], [address] [place] [address] Mean Platelet Volume September 05, 021 12:03pm 8.6 fl 9.1-13.1 [facility], [address] [place] [address] Mean Platelet Volume August 30 8:15pm 8.7 fl 9.1-13.1 [facility], [address] [place] [address] Mean Platelet Volume August 09, 2020 7:35pm 8.9 fl 9.1-13.1 [facility], [address] [place] [address] 22062 Mean Platelet Volume August 14, 2020 9:31am 8.9 fl 9.1-13.1 [facility], [address] [place] [address] Mean Platelet Volume August 03, 2020 2:35pm 9.0 fl 9.1-13.1 [facility], [address] [place] [address] 68773 Mean Platelet Volume July 01 020 9:40pm 8.6 fl 9.1-13.1 [facility], [address] [place] [address] Mean Platelet Volume May 18, 2020 6:17am 8.6 fl 9.1-13.1 [facility], [address] [place] [address] 15982 Mean Platelet Volume March 25 8:11am 8.3 fl 9.1-13.1 [facility], [address] [place] [address] Mean Platelet Volume March 11, 2020 12:14pm 8.4 fl 9.1-13.1 [facility], [address] [place] [address] Mean Platelet Volume March 02, 2020 11:00am 8.6 fl 9.1-13.1 [facility], [address] [place] [address] 63292 Mean Platelet Volume February 26, 2020 10:02a m 8.7 fl 9.1-13.1 [facility], [address] [place] [address] 43639 Mean Platelet Volume February 20, 2020 8:35a m 8.7 fl 9.1-13.1 [facility], [address] [place] [address] 95208 Neutrophils (%) (Auto) September 23, 2020 8:05pm 67.0 % [address] [place] [address] LABORATORY, [address] [place] [address] 40435 Neutrophils (%) (Auto) September 09, 2020 11:50pm 66.3 % [address] [place] [address] LABORATORY, [address] [place] [address] 78581 Neutrophils (%) (Auto) September 05, 2020 12:03pm 74.5 % [address] [place] [address] LABORATORY, [address] [place] [address] 07778 Neutrophils (%) (Auto) August 30, 2020 8:15pm 69.3 % [address] [place] [address] LABORATORY, [address] [place] [address] 78405 Neutrophils (%) (Auto) July 7:35pm 71.3 % [address] [place] [address] LABORATORY, [address] [place] [address] 42590 Neutrophils (%) (Auto) July 9:31am 63.7 % [address] [place] [address] LABORATORY, [address] [place] [address] 83348 Neutrophils (%) (Auto) July 2:35pm 68.8 % [address] [place] [address] LABORATORY, [address] [place] [address] 45582 Neutrophils (%) (Auto) July 01, 2020 9:40pm 66.3 % [address] [place] [address] LABORATORY, [address] [place] [id number] Neutrophils (%) (Auto) April 6:17am 66.1 % [address] [place] [address] LABORATORY, [address] [place] [id number] Neutrophils (%) (Auto) March 25 8:11am 58.4 % [address] [place] [address] LABORATORY, [address] [place] [address] Neutrophils (%) (Auto) March 11 12:14pm 72.2 % [address] [place] [address] LABORATORY, [address] [place] [address] [id number] Neutrophils (%) (Auto) March 02 11:00am 65.4 % [address] [place] [address] LABORATORY, [address] [place] [address] [id number] Neutrophils (%) (Auto) February 25 0 10:02am 62.6 % [address] [place] [address] LABORATORY, [address] [place] [address] [id number] Neutrophils (%) (Auto) February 19 8:35am 62.4 % [address] [place] [address] LABORATORY, [address] [place] [id number] Absolute Neutrophil September 23 8:05pm 6.8 # 1.7-7.6 [facility], [address] [place] [address] [id number] Absolute Neutrophil September 09 11:50pm 7.0 # 1.7-7.6 [facility], [address] [place] [address] Absolute Neutrophil September 05 12:03pm 7.7 # 1.7-7.6 [facility], [address] [place] [address] Absolute Neutrophil August 30 8:15pm 7.8 # 1.7-7.6 [facility], [address] [place] [address] [id number] Absolute Neutrophil August 09, 020 7:35pm 7.0 # 1.7-7.6 [facility], [address] [place] [address] Absolute Neutrophil August 14, 020 9:31am 6.2 # 1.7-7.6 [facility], [address] [place] [address] Absolute Neutrophil August 03, 2 020 2:35pm 5.9 # 1.7-7.6 [facility], [address] [place] [address] Absolute Neutrophil July 01 9:40pm 7.5 # 1.7-7.6 [facility], [address] [place] [address] [id number] Absolute Neutrophil May 18, 2020 6:17am 6.1 # 1.7-7.6 [facility], [address] [place] [address] [id number] Absolute Neutrophil March 25, 2020 8:11a m 6.3 # 1.7-7.6 [facility], [address] [place] [id number] Absolute Neutrophil March 11, 2020 12:14p m 8.1 # 1.7-7.6 [facility] [facility], [address] [place] [address] 08855 Absolute Neutrophil March 02, 2020 11:00a m 6.7 # 1.7-7.6 [facility], [address] [place] [address] 40710 Absolute Neutrophil February 26, 2020 10:02am 6.1 # 1.7-7.6 [facility], [address] [place] [address] 06218 Absolute Neutrophil February 20, 2020 8:35am 5.5 # 1.7-7.6 [facility], [address] [place] [address] 07402 Lymphocytes (%) (Auto) September 23, 2020 8:05pm 23.3 % 1446 [facility], [address] [place] [address] 11494 Lymphocytes (%) (Auto) September 09, 2020 11:50pm 23.0 % [address] [facility], [address] [place] [address] 52239 Lymphocytes (%) (Auto) September 05, 2020 12:03pm 17.6 % 14-46 [facility], [address] [place] [address] 11562 Lymphocytes (%) (Auto) August 30, 2020 8:15pm 20.7 % [address] [facility], [address] [place] [address] 25657 Lymphocytes (%) (Auto) July 7:35pm 19.4 % 1446 [facility], [address] [place] [address] 52067 Lymphocytes (%) (Auto) July 9:31am 25.9 % 14-46 [facility], [address] [place] [address] 61303 Lymphocytes (%) (Auto) July 2:35pm 20.2 % 14-46 [facility], [address] [place] [address] 53592 Lymphocytes (%) (Auto) July 01, 2020 9:40pm 21.4 % 1446 [facility], [address] [place] [address] 58104 Lymphocytes (%) (Auto) April 6:17am 22.8 % 14-46 [facility], [address] [place] [address] 12207 Lymphocytes (%) (Auto) March 25, 020 8:11am 30.4 % 14-46 [facility], [address] [place] [address] 48834 Lymphocytes (%) (Auto) March 11 12:14pm 19.0 % 14-46 [facility], [address] [place] [address] 03720 Lymphocytes (%) (Auto) March 02 11:00am 23.6 % 14-46 [facility], [address] [place] [address] 31146 Lymphocytes (%) (Auto) February 25 10:02am 25.4 % 14-46 [facility], [address] [place] [address] 18938 Lymphocytes (%) (Auto) February 19 8:35am 26.5 % 14-46 [facility], [address] [place] [address] 88272 Lymphocytes # (Auto) September 23, 021 8:05pm 2.4 # 0.6-4.6 [facility], [address] [place] [address] 50867 Lymphocytes # (Auto) September 09, 021 11:50pm 2.4 # 0.6-4.6 [facility], [address] [place] [address] 77123 Lymphocytes # (Auto) September 05, 021 12:03pm 1.8 # 0.6-4.6 [facility], [address] [place] [address] 55370 Lymphocytes # (Auto) August 30 8:15pm 2.3 # 0.6-4.6 [facility], [address] [place] [address] 45321 Lymphocytes # (Auto) August 09, 2020 7:35pm 1.9 # 0.6-4.6 [facility], [address] [place] [address] 87902 Lymphocytes # (Auto) August 14, 2020 9:31am 2.5 # 0.6-4.6 [facility], [address] [place] [address] 19492 Lymphocytes # (Auto) August 03, 2020 2:35pm 1.7 # 0.6-4.6 [facility], [address] [place] [address] 65557 Lymphocytes # (Auto) July 01, 020 9:40pm 2.4 # 0.6-4.6 [facility], [address] [place] [address] 26162 Lymphocytes # (Auto) May 18, 2020 6:17am 2.1 # 0.6-4.6 [facility], [address] [place] [address] 42721 Lymphocytes # (Auto) March 25 0 8:11am 3.3 # 0.6-4.6 [facility], [address] [place] [address] 53112 Lymphocytes # (Auto) March 11, 2020 12:14pm 2.1 # 0.6-4.6 [facility], [address] [place] [address] 96672 Lymphocytes # (Auto) March 02, 2020 11:00am 2.4 # 0.6-4.6 [facility], [address] [place] [address] 16724 Lymphocytes # (Auto) February 26, 2020 10:02a m 2.5 # 0.6-4.6 [facility], [address] [place] [address] 01774 Lymphocytes # (Auto) February 20, 2020 8:35a m 2.3 # 0.6-4.6 [facility], [address] [place] [address] 28885 Monocytes (%) (Auto) September 23, 021 8:05pm 6.9 % 4-12 [facility], [address] [place] [address] 01281 Monocytes (%) (Auto) September 09, 2 021 11:50pm 7.1 % 4-12 [facility], [address] [place] [address] 25261 Monocytes (%) (Auto) September 05, 2 021 12:03pm 5.4 % 4-12 [facility], [address] [place] [address] 03497 Monocytes (%) (Auto) August 30 8:15pm 6.8 % 4-12 [facility], [address] [place] [address] 26570 Monocytes (%) (Auto) August 09, 2020 7:35pm 7.0 % 4-12 [facility], [address] [place] [address] 41798 Monocytes (%) (Auto) August 14, 2020 9:31am 6.9 % 4-12 [facility], [address] [place] [address] 90864 Monocytes (%) (Auto) August 03, 2020 2:35pm 8.3 % 4-12 [facility], [address] [place] [address] 40361 Monocytes (%) (Auto) July 01 9:40pm 8.9 % 412 [facility], [address] [place] [address] 57614 Monocytes (%) (Auto) May 18, 2020 6:17am 8.7 % 412 [facility], [address] [place] [address] 64489 Monocytes (%) (Auto) March 25 0 8:11am 7.7 % 412 [facility], [address] [place] [address] 31124 Monocytes (%) (Auto) March 11, 2020 12:14pm 5.5 % 412 [facility], [address] [place] [address] 20157 Monocytes (%) (Auto) March 02, 2020 11:00am 7.8 % [address] [facility], [address] [place] [address] 11512 Monocytes (%) (Auto) February 26, 2020 10:02a m 8.2 % 412 [facility], [address] [place] [address] 60532 Monocytes (%) (Auto) February 20, 2020 8:35a m 8.0 % 412 [facility], [address] [place] [address] 01931 Monocytes # September 23, 2020 8:05pm 0.7 # 0.2-1.2 [facility], [address] [place] [address] 19434 Monocytes # September 09, 2020 11:50pm 0.8 # 0.2-1.2 [facility], [address] [place] [address] 97111 Monocytes # September 05, 2020 12:03pm 0.6 # 0.2-1.2 [facility], [address] [place] [address] 27835 Monocytes # August 30, 2020 8:15pm 0.8 # 0.2-1.2 [facility], [address] [place] [address] 74047 Monocytes # August 09, 2020 7:35pm 0.7 # 0.2-1.2 [facility], [address] [place] [address] 98841 Monocytes # August 14, 2020 9:31am 0.7 # 0.2-1.2 [facility], [address] [place] [address] 04171 Monocytes # August 03, 2020 2:35pm 0.7 # 0.2-1.2 [facility], [address] [place] [address] 50642 Monocytes # July 01, 2020 9:40pm 1.0 # 0.2-1.2 [facility], [address] [place] [address] 45733 Monocytes # May 18, 2020 6:17am 0.8 # 0.2-1.2 [facility], [address] [place] [address] 54348 Monocytes # March 25, 2020 8:11am 0.8 # 0.2-1.2 [facility], [address] [place] [address] 11533 Monocytes # March 11, 2020 12:14pm 0.6 # 0.2-1.2 [facility], [address] [place] [address] 38380 Monocytes # March 02, 2020 11:00am 0.8 # 0.2-1.2 [facility], [address] [place] [address] 15099 Monocytes # February 26, 2020 10:02am 0.8 # 0.2-1.2 [facility], [address] [place] [address] 79052 Monocytes # February 20, 2020 8:35am 0.7 # 0.2-1.2 [facility], [address] [place] [address] 72471 Eosinophils (%) (Auto) September 23, 2020 8:05pm 2.2 % 0-7 [facility], [address] [place] [address] 12135 Eosinophils (%) (Auto) September 09, 2020 11:50pm 2.9 % 0-7 [facility], [address] [place] [address] 67823 Eosinophils (%) (Auto) September 05, 2020 12:03pm 1.8 % 0-7 [facility], [address] [place] [address] 55260 Eosinophils (%) (Auto) August 30, 2020 8:15pm 2.4 % 0-7 [facility], [address] [place] [address] 39091 Eosinophils (%) (Auto) July 7:35pm 1.8 % 0-7 [facility], [address] [place] [address] 25517 Eosinophils (%) (Auto) July 9:31am 3.0 % 0-7 [facility], [address] [place] [address] 77256 Eosinophils (%) (Auto) July 2:35pm 2.2 % 0-7 [facility], [address] [place] [address] 46876 Eosinophils (%) (Auto) July 01, 2020 9:40pm 2.7 % 0-7 [facility], [address] [place] [address] 43960 Eosinophils (%) (Auto) April 6:17am 1.9 % 0-7 [facility], [address] [place] [address] 55476 Eosinophils (%) (Auto) March 25 8:11am 2.7 % 0-7 [facility], [address] [place] [address] 39669 Eosinophils (%) (Auto) March 11 12:14pm 2.5 % 0-7 [facility], [address] [place] [address] 72872 Eosinophils (%) (Auto) March 02 11:00am 2.4 % 0-7 [facility], [address] [place] [address] 03267 Eosinophils (%) (Auto) February 25 0 10:02am 3.1 % 0-7 [facility], [address] [place] [address] 12359 Eosinophils (%) (Auto) February 19 8:35am 2.6 % 0-7 [facility], [address] [place] [address] 80999 Absolute Eosinophils (CBC) September 23, 2020 8:05pm 0.2 # 0.0-0.5 [facility], [address] [place] [address] 05027 Absolute Eosinophils (CBC) August 232020 11:50pm 0.3 # 0.0-0.5 [facility], [address] [place] [address] 44948 Absolute Eosinophils (CBC) August 232020 12:03pm 0.2 # 0.0-0.5 [facility], [address] [place] [address] 44519 Absolute Eosinophils (CBC) August 302020 8:15pm 0.3 # 0.0-0.5 [facility], [address] [place] [address] 58683 Absolute Eosinophils (CBC) August 09, 2020 7:35pm 0.2 # 0.0-0.5 [facility], [address] [place] [address] 49330 Absolute Eosinophils (CBC) August 14, 2020 9:31am 0.3 # 0.0-0.5 [facility], [address] [place] [address] Absolute Eosinophils (CBC) August 03, 2020 2:35pm 0.2 # 0.0-0.5 [facility], [address] [place] [address] Absolute Eosinophils (CBC) July 01, 2020 9:40pm 0.3 # 0.0-0.5 [facility], [address] [place] [address] Absolute Eosinophils (CBC) May 18, 2020 6:17am 0.2 # 0.0-0.5 [facility], [address] [place] [address] Absolute Eosinophils (CBC) March 8:11am 0.3 # 0.0-0.5 [facility], [address] [place] [address] Absolute Eosinophils (CBC) February 12:14pm 0.3 # 0.0-0.5 [facility], [address] [place] [address] Absolute Eosinophils (CBC) February 11:00am 0.3 # 0.0-0.5 [facility], [address] [place] [address] Absolute Eosinophils (CBC) February 26, 2020 10:02am 0.3 # 0.0-0.5 [facility], [address] [place] [address] Absolute Eosinophils (CBC) January 8:35am 0.2 # 0.0-0.5 [facility], [address] [place] [address] 18447 Basophils (%) (Auto) September 23 021 8:05pm 0.4 % 0.4-1.3 [facility], [address] [place] [address] 46097 Basophils (%) (Auto) September 09, 021 11:50pm 0.3 % 0.4-1.3 [facility], [address] [place] [address] 07335 Basophils (%) (Auto) September 05, 2 021 12:03pm 0.4 % 0.4-1.3 [facility], [address] [place] [address] 15301 Basophils (%) (Auto) August 30 8:15pm 0.4 % 0.4-1.3 [facility], [address] [place] [address] 47078 Basophils (%) (Auto) August 09, 2020 7:35pm 0.3 % 0.4-1.3 [facility], [address] [place] [address] 31404 Basophils (%) (Auto) August 14, 2020 9:31am 0.3 % 0.4-1.3 [facility], [address] [place] [address] 50103 Basophils (%) (Auto) August 03, 2020 2:35pm 0.3 % 0.4-1.3 [facility], [address] [place] [address] 79657 Basophils (%) (Auto) July 01 9:40pm 0.4 % 0.4-1.3 [facility], [address] [place] [address] 31045 Basophils (%) (Auto) May 18, 2020 6:17am 0.3 % 0.4-1.3 [facility], [address] [place] [address] 39376 Basophils (%) (Auto) March 25 0 8:11am 0.5 % 0.4-1.3 [facility], [address] [place] [address] 11637 Basophils (%) (Auto) March 11, 2020 12:14pm 0.4 % 0.4-1.3 [facility], [address] [place] [address] 81268 Basophils (%) (Auto) March 02, 2020 11:00am 0.5 % 0.4-1.3 [facility], [address] [place] [address] 73471 Basophils (%) (Auto) February 26, 2020 10:02a m 0.4 % 0.4-1.3 [facility], [address] [place] [address] 29831 Basophils (%) (Auto) February 20, 2020 8:35a m 0.3 % 0.4-1.3 [facility], [address] [place] [address] 98929 Absolute Basophils (CBC) September 8:05pm 0.0 # 0.0-0.2 [facility], [address] [place] [address] 61189 Absolute Basophils (CBC) August 182020 11:50pm 0.0 # 0.0-0.2 [facility], [address] [place] [address] 36746 Absolute Basophils (CBC) August 12:03pm 0.0 # 0.0-0.2 [facility], [address] [place] [address] 07487 Absolute Basophils (CBC) August 8:15pm 0.1 # 0.0-0.2 [facility], [address] [place] [address] 27453 Absolute Basophils (CBC) August 092019 7:35pm 0.0 # 0.0-0.2 [facility], [address] [place] [address] 16230 Absolute Basophils (CBC) August 142019 9:31am 0.0 # 0.0-0.2 [facility], [address] [place] [address] 41243 Absolute Basophils (CBC) August 032019 2:35pm 0.0 # 0.0-0.2 [facility], [address] [place] [address] 34823 Absolute Basophils (CBC) June 9:40pm 0.0 # 0.0-0.2 [facility], [address] [place] [address] 39862 Absolute Basophils (CBC) April 242019 6:17am 0.0 # 0.0-0.2 [facility], [address] [place] [address] 04881 Absolute Basophils (CBC) March 25, 2020 8:11am 0.1 # 0.0-0.2 [facility], [address] [place] [address] 66059 Absolute Basophils (CBC) March 11, 2020 12:14pm 0.0 # 0.0-0.2 [facility], [address] [place] [address] 39961 Absolute Basophils (CBC) March 02, 2020 11:00am 0.1 # 0.0-0.2 [facility], [address] [place] [address] 32272 Absolute Basophils (CBC) February 25 10:02am 0.0 # 0.0-0.2 [facility], [address] [place] [address] 04587 Absolute Basophils (CBC) February 20, 2020 8:35am 0.0 # 0.0-0.2 [facility], [address] [place] [address] 62546 Immature Granulocyte % (Auto) Februa ry 2020 8:05pm 0.2 % 0-2 [facility], [address] [place] [address] 18381 Immature Granulocyte % (Auto) Auguar y 2020 11:50pm 0.4 % 0-2 [facility], [address] [place] [address] 62509 Immature Granulocyte % (Auto) Auguar y 2020 12:03pm 0.3 % 0-2 [facility], [address] [place] [address] 43905 Immature Granulocyte % (Auto) Auguar y 2020 8:15pm 0.4 % 0-2 [facility], [address] [place] [address] 29478 Immature Granulocyte % (Auto) Decemb er 2019 7:35pm 0.2 % 0-2 [facility], [address] [place] [address] 93228 Immature Granulocyte % (Auto) Decemb er 2019 9:31am 0.2 % 0-2 [facility], [address] [place] [address] 06629 Immature Granulocyte % (Auto) Decemb er 2019 2:35pm 0.2 % 0-2 [facility], [address] [place] [address] 69443 Immature Granulocyte % (Auto) Novem er 2019 9:40pm 0.3 % 0-2 [facility], [address] [place] [address] 84128 Immature Granulocyte % (Auto) Septem marci 2019 6:17am 0.2 % 0-2 [facility], [address] [place] [address] 79123 Immature Granulocyte % (Auto) March 25, 2020 8:11am 0.3 % 0-2 [facility], [address] [place] [address] 09500 Immature Granulocyte % (Auto) February 212019 12:14pm 0.4 % 0-2 [facility], [address] [place] [address] 60645 Immature Granulocyte % (Auto) February 202019 11:00am 0.3 % 0-2 [facility], [address] [place] [address] Immature Granulocyte % (Auto) February 252019 10:02am 0.3 % 0-2 [facility], [address] [place] [address] Immature Granulocyte % (Auto) January 232019 8:35am 0.2 % 0-2 [facility], [address] [place] [address] Absolute Immature Granulocyte (auto September 23, 2020 8:05pm 0.0 # 0-0.1 [facility], [address] [place] [address] Absolute Immature Granulocyte (auto September 09, 2020 11:50pm 0.0 # 0-0.1 [facility], [address] [place] [address] Absolute Immature Granulocyte (auto September 05, 2020 12:03pm 0.0 # 0-0.1 [facility], [address] [place] [address] Absolute Immature Granulocyte (auto August 30, 2020 8:15pm 0.0 # 0-0.1 [facility], [address] [place] [address] Absolute Immature Granulocyte (auto August 09, 2020 7:35pm 0.0 # 0-0.1 [facility], [address] [place] [address] Absolute Immature Granulocyte (auto August 14, 2020 9:31am 0.0 # 0-0.1 [facility], [address] [place] [address] Absolute Immature Granulocyte (auto August 03, 2020 2:35pm 0.0 # 0-0.1 [facility], [address] [place] [address] Absolute Immature Granulocyte (auto July 01, 2020 9:40pm 0.0 # 0-0.1 [facility], [address] [place] [address] Absolute Immature Granulocyte (auto May 18, 2020 6:17am 0.0 # 0-0.1 [facility], [address] [place] [address] Absolute Immature Granulocyte (auto March 25, 2020 8:11am 0.0 # 0-0.1 [facility], [address] [place] [address] Absolute Immature Granulocyte (auto March 11, 2020 12:14pm 0.0 # 0-0.1 [facility], [address] [place] [address] 06786 Absolute Immature Granulocyte (auto March 02, 2020 11:00am 0.0 # 0-0.1 [facility], [address] [place] [address] Absolute Immature Granulocyte (auto February 26, 2020 10:02am 0.0 # 0-0.1 [facility], [address] [place] [address] 92098 Absolute Immature Granulocyte (auto February 20, 2020 8:35am 0.0 # 0-0.1 [facility], [address] [place] [address] 74063 Add Manual Differential September 8:05pm No [facility], [address] [place] [address] 00173 Add Manual Differential August 11:50pm No [facility], [address] [place] [address] 86183 Add Manual Differential August 12:03pm No [facility], [address] [place] [address] 70271 Add Manual Differential August 30, 2020 8:15pm No [facility], [address] [place] [address] 33341 Add Manual Differential July h2019 7:35pm No [facility], [address] [place] [address] 05242 Add Manual Differential July d2019 9:31am No [facility], [address] [place] [address] 82585 Add Manual Differential July 2:35pm No [facility], [address] [place] [address] 73111 Add Manual Differential June 9:40pm No [facility], [address] [place] [address] 48394 Add Manual Differential May 182019 6:17am No [facility], [address] [place] [address] [id number] Add Manual Differential March 25, 2020 8:11am No [facility], [address] [place] [address] 76931 Add Manual Differential March 11 12:14pm No [facility], [address] [place] [address] 74619 Add Manual Differential March 02 020 11:00am No [facility], [address] [place] [address] [id number] Add Manual Differential February 25 10:02am No [facility], [address] [place] [address] [id number] Add Manual Differential February 19 020 8:35am No [facility], [address] [place] [address] [id number] Differential Total Cells Counted Sep tem2019 7:20pm 100 [facility], [address] [place] [address] 31548 Neutrophils (Manual) May 17, 2020 7:20pm 77 % 41-77 [facility], [address] [place] [address] 83087 Band Neutrophils May 17 0 7:20pm 3 % 0-5 [facility], [address] [place] [address] 91614 Lymphocytes (Manual) May 17, 2020 7:20pm 17 % 14-46 [facility], [address] [place] [address] 68950 Monocytes (Manual) May 17 7:20pm 3 % 4-12 [facility], [address] [place] [address] 96225 Platelet Estimate May 17 7:20pm Appears normal NORMAL [facility], [address] [place] [address] [id number] RBC Morphology 2 May 17 7:20pm Appears normal NORMAL [facility], [address] [place] [address] [id number] Urine Color May 18, 2020 12:15am Yellow [facility], [address] [place] [address] 95442 Urine Color February 20, 2020 8:40am Yellow [facility], [address] [place] [address] 19703 Urine Color September 23, 2020 7:46pm Yellow [facility], [address] [place] [address] 81998 Urine Color September 09, 2020 10:50pm Brown [facility], [address] [place] [address] [id number] Urine Color August 30, 2020 8:15pm [place] [facility], [address] [place] [address] 04594 Urine Color August 09, 2020 8:06pm Yellow [facility], [address] [place] [address] 13515 Urine Color August 03, 2020 2:50pm Yellow [facility], [address] [place] [address] 03679 Urine Color July 01, 2020 9:30pm Yellow [facility], [address] [place] [address] 10666 Urine Color March 25, 2020 8:05am Yellow [facility], [address] [place] [address] 01868 Urine Color March 11, 2020 11:00am Yellow [facility], [address] [place] [address] 64629 Urine Color March 05, 2020 2:29pm Yellow [facility], [address] [place] [address] 16246 Urine Color March 02, 2020 10:48am Yellow [facility], [address] [place] [address] 48176 Urine Appearance September 23, 2020 7:46pm Clear [facility], [address] [place] [address] [id number] Urine Appearance September 09, 2020 10:50p m Cloudy [facility], [address] [place] [address] 40587 Urine Appearance August 30, 2020 8:15pm Turbid [facility], [address] [place] [address] 53492 Urine Appearance August 09, 2020 8:06p m Clear [facility], [address] [place] [address] 91583 Urine Appearance August 03, 2020 2:50p m Clear [facility], [address] [place] [address] 11915 Urine Appearance July 01, 2020 9:30pm Cloudy [facility], [address] [place] [address] 82755 Urine Appearance May 18 12:15am Clear [facility], [address] [place] [address] 75421 Urine Appearance March 25, 2020 8:05am Cloudy [facility], [address] [place] [address] 96481 Urine Appearance March 11, 2020 11:00am Cloudy [facility], [address] [place] [address] 14043 Urine Appearance March 05, 2020 2:29pm Cloudy [facility], [address] [place] [address] 92218 Urine Appearance March 02, 2020 10:48am Cloudy [facility], [address] [place] [address] 41614 Urine Appearance February 20, 2020 8:40am Turbid [facility], [address] [place] [address] 78979 Urine pH September 23, 2020 7:46pm 6.0 [facility], [address] [place] [address] 62750 Urine pH September 09, 2020 10:50pm 5.5 [facility], [address] [place] [address] 31153 Urine pH August 30, 2020 8:15pm 6.5 [facility], [address] [place] [address] 48394 Urine pH August 09, 2020 8:06pm 6.5 [facility], [address] [place] [address] 49897 Urine pH August 03, 2020 2:50pm 7.5 [facility], [address] [place] [address] 70981 Urine pH July 01, 2020 9:30pm 6.0 [facility], [address] [place] [address] 79739 Urine pH May 18, 2020 12:15am 6.0 [facility], [address] [place] [address] 88875 Urine pH March 25, 2020 8:05am 5.5 [facility], [address] [place] [address] 91136 Urine pH March 11, 2020 11:00am 6.5 [facility], [address] [place] [address] 63212 Urine pH March 05, 2020 2:29pm 6.0 [facility], [address] [place] [address] 83805 Urine pH March 02, 2020 10:48am 5.5 [facility], [address] [place] [address] 17762 Urine pH February 20, 2020 8:40am 5.5 [facility], [address] [place] [address] 34899 Urine Specific Banner September 23, 2020 7:46pm 1.018 [facility], [address] [place] [address] 79944 Urine Specific Banner September 09, 2020 10:50pm 1.035 [facility], [address] [place] [address] 86666 Urine Specific Banner August 30, 2020 8:15pm 1.033 [facility], [address] [place] [address] 65907 Urine Specific Banner July 8:06pm 1.022 [facility], [address] [place] [address] 73062 Urine Specific Banner July 2:50pm 1.020 [facility], [address] [place] [address] 08946 Urine Specific Banner July 01, 2020 9:30pm 1.026 [facility], [address] [place] [address] 91707 Urine Specific Banner April 12:15am >1.045 [facility], [address] [place] [address] 43307 Urine Specific Banner March 25 8:05am 1.025 [facility], [address] [place] [address] 86873 Urine Specific Banner March 11 11:00am 1.025 [facility], [address] [place] [address] 39368 Urine Specific Banner March 05 2:29pm 1.021 [facility], [address] [place] [address] Urine Specific Banner March 02 10:48am 1.025 [facility], [address] [place] [address] Urine Specific Banner February 19 8:40am 1.023 [facility], [address] [place] [address] Urine Leukocyte Esterase April 242019 12:15am Negative NEGATIVE [facility], [address] [place] [address] Urine Leukocyte Esterase February 20, 2020 8:40am Moderate NEGATIVE [facility], [address] [place] [address] Urine Leukocyte Esterase September 7:46pm Trace NEGATIVE A Culture has been added to this specimen per established criteria [facility], [address] [place] [address] Urine Leukocyte Esterase August 10:50pm Small NEGATIVE A Culture has been added to this specimen per established criteria [facility], [address] [place] [address] Urine Leukocyte Esterase August 8:15pm Small NEGATIVE A Culture has been added to this specimen per established criteria [facility], [address] [place] [address] Urine Leukocyte Esterase August 092019 8:06pm Small NEGATIVE A Culture has been added to this specimen per established criteria [facility], [address] [place] [address] Urine Leukocyte Esterase August [id number] 2:50pm Small NEGATIVE A Culture has been added to this specimen per established criteria [facility], [address] [place] [address] Urine Leukocyte Esterase June 9:30pm Small NEGATIVE A Culture has been added to this specimen per established criteria [facility], [address] [place] [address] Urine Leukocyte Esterase March 25, 2020 8:05am Trace NEGATIVE A Culture has been added to this specimen per established criteria [facility], [address] [place] [address] Urine Leukocyte Esterase March 11, 2020 11:00am Trace NEGATIVE A Culture has been added to this specimen per established criteria [facility], [address] [place] [address] Urine Leukocyte Esterase March 05, 2020 2:29pm Trace NEGATIVE A Culture has been added to this specimen per established criteria [facility], [address] [place] [address] 75752 Urine Leukocyte Esterase March 02, 2020 10:48am Trace NEGATIVE A Culture has been added to this specimen per established criteria [facility], [address] [place] [address] 00365 Urine Nitrite May 18, 2020 12:15am Negative [facility], [address] [place] [address] 61669 Urine Nitrite February 20, 2020 8:40am Negative [facility]GAT[facility], [address] [place] [address] 06478 Urine Nitrate September 23, 2020 7:46pm Negative [facility]GATIVE [facility], [address] [place] [address] 86795 Urine Nitrate September 09, 2020 10:50pm Positive NEGATIVE A Culture has been added to this specimen per established criteria [facility], [address] [place] [address] 53511 Urine Nitrate August 30, 2020 8:15pm Negative [facility]GAT[facility], [address] [place] [address] 46522 Urine Nitrate August 09, 2020 8:06pm Negative [facility], [address] [place] [address] 47061 Urine Nitrate August 03, 2020 2:50pm Negative [facility], [address] [place] [address] 04851 Urine Nitrate July 01, 2020 9:30pm Negative [facility], [address] [place] [address] 03359 Urine Nitrate March 25, 2020 8:05am Negative [facility], [address] [place] [address] 19185 Urine Nitrate March 11, 2020 11:00am Negative [facility], [address] [place] [address] Urine Nitrate March 05, 2020 2:29pm Negative [facility], [address] [place] [address] 75150 Urine Nitrate March 02, 2020 10:48am Negative [facility], [address] [place] [address] 15374 Urine Protein September 23, 2020 7:46pm Negative [facility], [address] [place] [address] 59799 Urine Protein September 09, 2020 10:50pm 30 mg/dl [facility], [address] [place] [address] 37957 Urine Protein August 30, 2020 8:15pm 30 mg/dl [facility], [address] [place] [address] 41063 Urine Protein August 09, 2020 8:06pm Negative [facility], [address] [place] [address] 11710 Urine Protein August 03, 2020 2:50pm Negative [facility], [address] [place] [address] 63245 Urine Protein July 01, 2020 9:30pm Trace NEGATIVE [facility], [address] [place] [address] 99888 Urine Protein May 18, 2020 12:15am Negative [facility]GAT[facility], [address] [place] [address] 06345 Urine Protein March 25, 2020 8:05am Negative NEGATIVE [facility], [address] [place] [address] 50083 Urine Protein March 11, 2020 11:00am Trace NEGATIVE [facility], [address] [place] [address] 25208 Urine Protein March 05, 2020 2:29pm Trace NEGATIVE [facility], [address] [place] [address] 76371 Urine Protein March 02, 2020 10:48am Negative [facility]GAT[facility], [address] [place] [address] 91788 Urine Protein February 20, 2020 8:40am 30 mg/dl NEGATIVE [facility], [address] [place] [address] 36298 Urine Ictotest September 09, 2020 10:50pm Negative [facility], [address] [place] [address] 86586 Urine Glucose September 23, 2020 7:46pm Negative [facility]GAT[facility], [address] [place] [address] 77289 Urine Glucose September 09, 2020 10:50pm Negative [facility]GATIVE [facility], [address] [place] [address] 79590 Urine Glucose August 30, 2020 8:15pm Negative [facility]GAT[facility], [address] [place] [address] 24909 Urine Glucose August 09, 2020 8:06pm Negative [facility], [address] [place] [address] 02238 Urine Glucose August 03, 2020 2:50pm Negative [facility], [address] [place] [address] 09366 Urine Glucose July 01, 2020 9:30pm Negative [facility], [address] [place] [address] 59095 Urine Glucose May 18, 2020 12:15am Negative [facility], [address] [place] [address] 14498 Urine Glucose March 25, 2020 8:05am Negative [facility], [address] [place] [address] 23136 Urine Glucose March 11, 2020 11:00am Negative [facility], [address] [place] [address] 67303 Urine Glucose March 05, 2020 2:29pm Negative [facility], [address] [place] [address] 28407 Urine Glucose March 02, 2020 10:48am Negative [facility], [address] [place] [address] 79908 Urine Glucose February 20, 2020 8:40am Negative [facility], [address] [place] [address] 65201 Urine Ketones September 23, 2020 7:46pm Negative [facility], [address] [place] [address] 64590 Urine Ketones September 09, 2020 10:50pm Trace [facility]GATIVE [facility], [address] [place] [address] 47991 Urine Ketones August 30, 2020 8:15pm Trace [facility]GATIVE [facility], [address] [place] [address] 13843 Urine Ketones August 09, 2020 8:06pm Negative [facility], [address] [place] [address] 78346 Urine Ketones August 03, 2020 2:50pm Negative [facility], [address] [place] [address] 09425 Urine Ketones July 01, 2020 9:30pm Trace [facility]GATIVE [facility], [address] [place] [address] 98303 Urine Ketones May 18, 2020 12:15am Negative [facility], [address] [place] [address] 07360 Urine Ketones March 25, 2020 8:05am Trace NEGATIVE [facility], [address] [place] [address] 19259 Urine Ketones March 11, 2020 11:00am Trace NEGATIVE [facility], [address] [place] [address] 64715 Urine Ketones March 05, 2020 2:29pm Negative [facility], [address] [place] [address] 20509 Urine Ketones March 02, 2020 10:48am Negative [facility], [address] [place] [address] 00842 Urine Ketones February 20, 2020 8:40am Trace NEGATIVE [facility], [address] [place] [address] 12327 Urine Urobilinogen September 23 7:46pm 0.2 eu/dl [facility], [address] [place] [address] 46555 Urine Urobilinogen September 09 10:50pm 1 eu/dl [facility], [address] [place] [address] 03870 Urine Urobilinogen August 30, 2020 8:15p m 1 eu/dl [facility], [address] [place] [address] 29708 Urine Urobilinogen August 09 8:06pm 1 eu/dl [facility], [address] [place] [address] 19142 Urine Urobilinogen August 03 2:50pm 1 eu/dl [facility], [address] [place] [address] 64431 Urine Urobilinogen July 01 9:30pm 1 eu/dl [facility], [address] [place] [address] 01947 Urine Urobilinogen May 18 12:15am 0.2 eu/dl [facility], [address] [place] [address] 31823 Urine Urobilinogen March 25, 2020 8:05am 1 eu/dl [facility], [address] [place] [address] Urine Urobilinogen March 11, 2020 11:00am 1 eu/dl [facility], [address] [place] [address] 07704 Urine Urobilinogen March 05, 2020 2:29pm 0.2 eu/dl [facility], [address] [place] [address] Urine Urobilinogen March 02, 2020 10:48am 1 eu/dl [facility], [address] [place] [address] 98134 Urine Urobilinogen February 20, 2020 8:40am 1 eu/dl [facility], [address] [place] [address] 01955 Urine Bilirubin September 23, 2020 7:46pm Negative NEGATIVE [facility], [address] [place] [address] 15767 Urine Bilirubin September 09, 2020 10:50pm Small NEGATIVE [facility], [address] [place] [address] 59229 Urine Bilirubin August 30, 2020 8:15pm Negative NEGATIVE [facility], [address] [place] [address] 56445 Urine Bilirubin August 09, 2020 8:06pm Negative NEGATIVE [facility], [address] [place] [address] 33349 Urine Bilirubin August 03, 2020 2:50pm Negative NEGATIVE [facility], [address] [place] [address] 86180 Urine Bilirubin July 01, 2020 9:30pm Negative NEGATIVE [facility], [address] [place] [address] 22759 Urine Bilirubin May 18, 2020 12:15am Negative NEGATIVE [facility], [address] [place] [address] 27749 Urine Bilirubin March 25, 2020 8:05am Negative [facility], [address] [place] [address] 53701 Urine Bilirubin March 11, 2020 11:00am Negative [facility], [address] [place] [address] 28351 Urine Bilirubin March 05, 2020 2:29pm Negative [facility], [address] [place] [address] Urine Bilirubin March 02, 2020 10:48am Negative NEGATIVE [facility], [address] [place] [address] Urine Bilirubin February 20, 2020 8:40am Negative NEGATIVE [facility], [address] [place] [address] Urine Blood May 18, 2020 12:15am Negative NEGATIVE [facility], [address] [place] [address] Urine Blood February 20, 2020 8:40am Large NEGATIVE [facility], [address] [place] [address] 09101 Urine Blood September 23, 2020 7:46pm Negative NEGATIVE [facility], [address] [place] [address] Urine Blood September 09, 2020 10:50pm Large NEGATIVE A Culture has been added to this specimen per established criteria [facility], [address] [place] [address] Urine Blood August 30, 2020 8:15pm Large NEGATIVE A Culture has been added to this specimen per established criteria [facility], [address] [place] [address] Urine Blood August 09, 2020 8:06pm Moderate NEGATIVE A Culture has been added to this specimen per established criteria [facility], [address] [place] [address] 18176 Urine Blood August 03, 2020 2:50pm Small NEGATIVE [facility], [address] [place] [address] Urine Blood July 01, 2020 9:30pm Moderate NEGATIVE A Culture has been added to this specimen per established criteria [facility], [address] [place] [address] 46428 Urine Blood March 25, 2020 8:05am Negative NEGATIVE [facility], [address] [place] [address] 18129 Urine Blood March 11, 2020 11:00am Negative NEGATIVE [facility], [address] [place] [address] Urine Blood March 05, 2020 2:29pm Large NEGATIVE A Culture has been added to this specimen per established criteria [facility], [address] [place] [address] 81031 Urine Blood March 02, 2020 10:48am Trace NEGATIVE [facility], [address] [place] [address] Microscopic Urinalysis Comment Septe mb2019 12:15am No [facility], [address] [place] [address] Microscopic Urinalysis Comment February 20, 2020 8:40am Microscopic added [facility], [address] [place], [place] [id number] Add Urine Microanalysis September 7:46pm Microscopic added [facility], [address] [place] [address] 37237 Add Urine Microanalysis August 10:50pm Microscopic added [facility], [address] [place], [place] [id number] Add Urine Microanalysis August 30, 2020 8:15pm Microscopic added [facility], [address] [place], [place] [id number] Add Urine Microanalysis July 8:06pm Microscopic added [facility], [address] [place] [address] Add Urine Microanalysis July 2:50pm Microscopic added [facility], [address] [place] [address] 06327 Add Urine Microanalysis June 9:30pm Microscopic added [facility], [address] [place] [address] Add Urine Microanalysis March 25, 2020 8:05am Microscopic added [facility], [address] [place] [address] 22139 Add Urine Microanalysis March 11, 020 11:00am Microscopic added [facility], [address] [place] [address] Add Urine Microanalysis March 05, 020 2:29pm Microscopic added [facility], [address] [place] [address] Add Urine Microanalysis March 02, 020 10:48am Microscopic added [facility], [address] [place] [address] 50817 Urine RBC September 09, 2020 10:50pm 3-5 /hpf [facility], [address] [place] [address] 33438 Urine RBC August 30, 2020 8:15pm 1-2 /hpf [facility], [address] [place] [address] 72710 Urine RBC August 09, 2020 8:06pm 1-2 /hpf [facility], [address] [place] [address] 45140 Urine RBC August 03, 2020 2:50pm 6-10 /hpf [facility], [address] [place] [address] Urine RBC July 01, 2020 9:30pm Occasional /hpf [facility], [address] [place] [address] 06504 Urine RBC March 05, 2020 2:29pm 3-5 /hpf [facility], [address] [place] [address] 74359 Urine RBC March 02, 2020 10:48am Occasional /hpf [facility], [address] [place] [address] 89140 Urine WBC February 20, 2020 8:40am 20-30 /hpf [facility], [address] [place] [address] 52851 Urine WBC September 23, 2020 7:46pm 1-2 /hpf [facility], [address] [place] [address] 83496 Urine WBC September 09, 2020 10:50pm 2-4 /hpf [facility], [address] [place] [address] 14167 Urine WBC August 30, 2020 8:15pm 1-2 /hpf [facility], [address] [place] [address] 04901 Urine WBC August 09, 2020 8:06pm 1-2 /hpf [facility], [address] [place] [address] Urine WBC August 03, 2020 2:50pm 20-30 /hpf [facility], [address] [place] [address] 00807 Urine WBC July 01, 2020 9:30pm Occasional /hpf [facility], [address] [place] [address] 56983 Urine WBC March 25, 2020 8:05am 3-5 /hpf [facility], [address] [place] [address] Urine WBC March 11, 2020 11:00am 3-5 /hpf [facility], [address] [place] [address] 52854 Urine WBC March 05, 2020 2:29pm Occasional /hpf [facility], [address] [place] [address] Urine WBC March 02, 2020 10:48am 3-5 /hpf [facility], [address] [place], [place] [id number] Urine Squamous Epithelial Cells Febr uary 2020 7:46pm Few /hpf [facility], [address] [place], [place] [id number] Urine Squamous Epithelial Cells Lukas krystina 2020 10:50pm Few /hpf [facility], [address] [place] [address] Urine Squamous Epithelial Cells Lukas krystina 2020 8:15pm Moderate /hpf [facility], [address] [place] [address] Urine Squamous Epithelial Cells Dece mber 2019 8:06pm Many /hpf [facility], [address] [place] [address] 41229 Urine Squamous Epithelial Cells Dece mber 2019 2:50pm Moderate /hpf [facility], [address] [place] [address] 20538 Urine Squamous Epithelial Cells Nove mber 2019 9:30pm Moderate /hpf [facility], [address] [place] [address] 70110 Urine Squamous Epithelial Cells Augu st 2019 8:05am Many /hpf [facility], [address] [place] [address] Urine Squamous Epithelial Cells March 11, 2020 11:00am Many /hpf [facility], [address] [place] [address] Urine Squamous Epithelial Cells March 05, 2020 2:29pm Many /hpf [facility], [address] [place] [address] 90315 Urine Squamous Epithelial Cells March 02, 2020 10:48am Many /hpf [facility], [address] [place] [address] Urine Squamous Epithelial Cells February 20, 2020 8:40am Many /hpf [facility], [address] [place] [address] Urine Bacteria February 20, 2020 8:40am Moderate amount NEGATIVE [facility], [address] [place] [address] 00023 Urine Bacteria September 23, 2020 7:46pm Small amount NEGATIVE [facility], [address] [place] [address] Urine Bacteria September 09, 2020 10:50pm Moderate amount NEGATIVE A Culture has been added to this specime n per established criteria [facility], [address] [place] [address] Urine Bacteria August 30, 2020 8:15pm Small amount NEGATIVE [facility], [address] [place] [address] 53995 Urine Bacteria August 09, 2020 8:06pm Small amount NEGATIVE [facility], [address] [place] [address] 36668 Urine Bacteria August 03, 2020 2:50pm Small amount NEGATIVE [facility], [address] [place] [address] [id number] Urine Bacteria July 01, 2020 9:30pm Moderate amount NEGATIVE A Culture has been added to this specime n per established criteria [facility], [address] [place] [address] [id number] Urine Bacteria March 25, 2020 8:05am Small amount NEGATIVE [facility], [address] [place] [address] [id number] Urine Bacteria March 11, 2020 11:00am Small amount NEGATIVE [facility], [address] [place] [address] [id number] Urine Bacteria March 05, 2020 2:29pm Small amount NEGATIVE [facility], [address] [place] [address] [id number] Urine Bacteria March 02, 2020 10:48am Small amount NEGATIVE [facility], [address] [place] [address] [id number] Urine Mucus August 30, 2020 8:15pm Small amount [facility], [address] [place] [address] [id number] Urine Mucus March 25, 2020 8:05am Small amount [facility], [address] [place] [address] [id number] Urine Sperm February 20, 2020 8:40am [facility], [address] [place], [place] [id number] Carboxyhemoglobin September 09, 2020 11:50pm 1.3 % 0-2.0 REFERENCE RANGE Non Smoker: LESS THAN 2.0% Smoker: LESS THAN 9.0% [facility], [address] [place] [address] [id number] Blood Urea Nitrogen September 23 8:05pm 10 mg/dL 05-15 [facility] [facility], [address] [place] [address] [id number] Blood Urea Nitrogen September 09 11:50pm 7 mg/dL 05-15 [facility], [address] [place] [address] 01958 Blood Urea Nitrogen September 05 12:03pm 7 mg/dL 05-15 [facility], [address] [place] [address] 42599 Blood Urea Nitrogen August 30 8:15pm 16 mg/dL 05-15 [facility], [address] [place], [place] [id number] Blood Urea Nitrogen August 09 020 7:35pm 8 mg/dL 05-15 [facility], [address] [place] [address] Blood Urea Nitrogen August 03 020 2:35pm 5 mg/dL 05-15 [facility], [address] [place] [address] Blood Urea Nitrogen July 01 9:40pm 6 mg/dL 05-15 [facility], [address] [place] [address] Blood Urea Nitrogen May 18, 2020 6:17am 7 mg/dL 05-15 [facility], [address] [place] [address] Blood Urea Nitrogen March 25, 2020 8:11a m 7 mg/dL 05-15 [facility], [address] [place] [address] Blood Urea Nitrogen March 11, 2020 12:14p m 6 mg/dL 05-15 [facility], [address] [place] [address] Blood Urea Nitrogen March 02, 2020 11:00a m 8 mg/dL 05-15 [facility], [address] [place] [address] Blood Urea Nitrogen February 26, 2020 10:02am 7 mg/dL 05-15 [facility], [address] [place] [address] Blood Urea Nitrogen February 20, 2020 8:35am 6 mg/dL 05-15 [facility], [address] [place] [address] 74970 Sodium Level September 23, 2020 8:05pm 142 mmol/L 132-146 [facility], [address] [place] [address] Sodium Level September 09, 2020 11:50pm 142 mmol/L 132-146 [facility], [address] [place] [address] 41127 Sodium Level September 05, 2020 12:03pm 140 mmol/L 132-146 [facility], [address] [place] [address] 12858 Sodium Level August 30, 2020 8:15pm 141 mmol/L 132-146 [facility], [address] [place] [address] 75884 Sodium Level August 09, 2020 7:35pm 141 mmol/L 132-146 [facility], [address] [place] [address] 51917 Sodium Level August 03, 2020 2:35pm 138 mmol/L 132-146 [facility], [address] [place] [address] Sodium Level July 01, 2020 9:40pm 141 mmol/L 132-146 [facility], [address] [place] [address] 24168 Sodium Level May 18, 2020 6:17am 143 mmol/L 132-146 [facility], [address] [place] [address] 15759 Sodium Level March 25, 2020 8:11am 137 mmol/L 132-146 [facility], [address] [place] [address] 15818 Sodium Level March 11, 2020 12:14pm 140 mmol/L 132-146 [facility], [address] [place] [address] 97195 Sodium Level March 02, 2020 11:00am 139 mmol/L 132-146 [facility], [address] [place] [address] 05177 Sodium Level February 26, 2020 10:02am 138 mmol/L 132-146 [facility], [address] [place] [address] 85073 Sodium Level February 20, 2020 8:35am 138 mmol/L 132-146 [facility], [address] [place] [address] 35597 Potassium Level September 23, 2020 8:05pm 3.9 mmol/L 3.5-5.5 [facility], [address] [place] [address] 27805 Potassium Level September 09, 2020 11:50pm 3.7 mmol/L 3.5-5.5 [facility], [address] [place] [address] 87601 Potassium Level September 05, 2020 12:03pm 3.9 mmol/L 3.5-5.5 [facility], [address] [place] [address] 16403 Potassium Level August 30, 2020 8:15pm 3.8 mmol/L 3.5-5.5 [facility], [address] [place] [address] 73555 Potassium Level August 09, 2020 7:35pm 3.9 mmol/L 3.5-5.5 [facility], [address] [place] [address] 88194 Potassium Level August 03, 2020 2:35pm 4.6 mmol/L 3.5-5.5 [facility], [address] [place] [address] 37811 Potassium Level July 01, 2020 9:40pm 3.7 mmol/L 3.5-5.5 [facility], [address] [place] [address] 68919 Potassium Level May 18, 2020 6:17a m 3.8 mmol/L 3.5-5.5 [facility], [address] [place] [address] Potassium Level March 25, 2020 8:11am 3.7 mmol/L 3.5-5.5 [facility], [address] [place] [address] 06977 Potassium Level March 11, 2020 12:14pm 4.3 mmol/L 3.5-5.5 [facility], [address] [place] [address] 40789 Potassium Level March 02, 2020 11:00am 4.1 mmol/L 3.5-5.5 [facility], [address] [place] [address] 03067 Potassium Level February 26, 2020 10:02am 4.1 mmol/L 3.5-5.5 [facility], [address] [place] [address] 25896 Potassium Level February 20, 2020 8:35am 4.1 mmol/L 3.5-5.5 [facility], [address] [place] [address] 03534 Chloride Level September 23, 2020 8:05pm 111 mmol/l 99-109 [facility], [address] [place] [address] 67475 Chloride Level September 09, 2020 11:50pm 111 mmol/l 99-109 [facility], [address] [place] [address] 00933 Chloride Level September 05, 2020 12:03pm 110 mmol/l 99-109 [facility], [address] [place] [address] 70503 Chloride Level August 30, 2020 8:15pm 109 mmol/l 99-109 [facility], [address] [place] [address] 18916 Chloride Level August 09, 2020 7:35pm 111 mmol/l 99-109 [facility], [address] [place] [address] 22716 Chloride Level August 03, 2020 2:35pm 110 mmol/l 99-109 [facility], [address] [place] [address] 98380 Chloride Level July 01, 2020 9:40pm 110 mmol/l 99-109 [facility], [address] [place] [address] 89943 Chloride Level May 18, 2020 6:17am 113 mmol/l 99-109 [facility], [address] [place] [address] 20620 Chloride Level March 25, 2020 8:11am 111 mmol/l 99-109 [facility], [address] [place] [address] 37525 Chloride Level March 11, 2020 12:14pm 111 mmol/l 99-109 [facility], [address] [place] [address] 43050 Chloride Level March 02, 2020 11:00am 111 mmol/l 99-109 [facility], [address] [place] [address] 81254 Chloride Level February 26, 2020 10:02am 107 mmol/l 99-109 [facility], [address] [place] [address] 31592 Chloride Level February 20, 2020 8:35am 108 mmol/l 99-109 [facility], [address] [place] [address] 31109 Carbon Dioxide Level September 23 021 8:05pm 24 mmol/l 20-31 [facility], [address] [place] [address] 17023 Carbon Dioxide Level September 09, 021 11:50pm 23 mmol/l 20-31 [facility], [address] [place] [address] 80254 Carbon Dioxide Level September 05, 021 12:03pm 20 mmol/l 20-31 [facility], [address] [place] [address] 23296 Carbon Dioxide Level August 30 8:15pm 24 mmol/l 20-31 [facility], [address] [place] [address] 51746 Carbon Dioxide Level August 09, 2020 7:35pm 24 mmol/l 20-31 [facility], [address] [place] [address] 58934 Carbon Dioxide Level August 03, 2020 2:35pm 21 mmol/l 20-31 [facility], [address] [place] [address] 45213 Carbon Dioxide Level July 01, 020 9:40pm 22 mmol/l 20-31 [facility], [address] [place] [address] 99209 Carbon Dioxide Level May 18, 2020 6:17am 25 mmol/l 20-31 [facility], [address] [place] [address] 77034 Carbon Dioxide Level March 25 0 8:11am 21 mmol/l 20-31 [facility], [address] [place] [address] 89175 Carbon Dioxide Level March 11, 2020 12:14pm 20 mmol/l 20-31 [facility], [address] [place] [address] 83538 Carbon Dioxide Level March 02, 2020 11:00am 20 mmol/l 20-31 [facility], [address] [place] [address] Carbon Dioxide Level February 26, 2020 10:02a m 22 mmol/l 20-31 [facility], [address] [place] [address] Carbon Dioxide Level February 20, 2020 8:35a m 21 mmol/l 20-31 [facility], [address] [place] [address] 74278 Anion Gap September 23, 2020 8:05pm 11 mmol/l 8-16 [facility], [address] [place] [address] 78704 Anion Gap September 09, 2020 11:50pm 12 mmol/l 8-16 [facility], [address] [place] [address] 35536 Anion Gap September 05, 2020 12:03pm 14 mmol/l 8-16 [facility], [address] [place] [address] 29745 Anion Gap August 30, 2020 8:15pm 12 mmol/l 8-16 [facility], [address] [place] [address] 00295 Anion Gap August 09, 2020 7:35pm 10 mmol/l 8-16 [facility], [address] [place] [address] 48965 Anion Gap August 03, 2020 2:35pm 12 mmol/l 8-16 [facility], [address] [place] [address] 49800 Anion Gap July 01, 2020 9:40pm 13 mmol/l 8-16 [facility], [address] [place] [address] 64416 Anion Gap May 18, 2020 6:17am 9 mmol/l 8-16 [facility], [address] [place] [address] 68597 Anion Gap March 25, 2020 8:11am 9 mmol/l 8-16 [facility], [address] [place] [address] 75048 Anion Gap March 11, 2020 12:14pm 13 mmol/l 8-16 [facility], [address] [place] [address] 87237 Anion Gap March 02, 2020 11:00am 12 mmol/l 8-16 [facility], [address] [place] [address] 21232 Anion Gap February 26, 2020 10:02am 13 mmol/l 8-16 [facility], [address] [place] [address] 88093 Anion Gap February 20, 2020 8:35am 13 mmol/l 8-16 [facility], [address] [place] [address] 85406 Glucose Level September 23, 2020 8:05pm 82 mg/dL 74-106 [facility], [address] [place] [address] 14421 Glucose Level September 09, 2020 11:50pm 90 mg/dL 74-106 [facility], [address] [place] [address] 99044 Glucose Level September 05, 2020 12:03pm 106 mg/dL 74-106 [facility], [address] [place] [address] 21082 Glucose Level August 30, 2020 8:15pm 90 mg/dL 74-106 [facility], [address] [place] [address] 62434 Glucose Level August 09, 2020 7:35pm 89 mg/dL 74-106 [facility], [address] [place] [address] 33033 Glucose Level August 03, 2020 2:35pm 87 mg/dL 74-106 [facility], [address] [place] [address] 69879 Glucose Level July 01, 2020 9:40pm 100 mg/dL 74-106 [facility], [address] [place] [address] 31596 Glucose Level May 18, 2020 6:17am 93 mg/dL 74-106 [facility], [address] [place] [address] 77616 Glucose Level March 25, 2020 8:11am 93 mg/dL 74-106 [facility], [address] [place] [address] 85087 Glucose Level March 11, 2020 12:14pm 88 mg/dL 74-106 [facility], [address] [place] [address] 64256 Glucose Level March 02, 2020 11:00am 91 mg/dL 74-106 [facility], [address] [place] [address] 45794 Glucose Level February 26, 2020 10:02am 92 mg/dL 74-106 [facility], [address] [place] [address] 69594 Glucose Level February 20, 2020 8:35am 98 mg/dL 74-106 [facility], [address] [place] [address] 01392 Creatinine September 23, 2020 8:05pm 1.0 mg/dL 0.5-1.1 [facility], [address] [place] [address] 43509 Creatinine September 09, 2020 11:50pm 0.9 mg/dL 0.5-1.1 [facility], [address] [place] [address] Creatinine September 05, 2020 12:03pm 1.0 mg/dL 0.5-1.1 [facility], [address] [place] [address] 55961 Creatinine August 30, 2020 8:15pm 1.1 mg/dL 0.5-1.1 [facility], [address] [place], [place] [id number] Creatinine August 09, 2020 7:35pm 1.3 mg/dL 0.5-1.1 [facility], [address] [place], [place] [id number] Creatinine August 03, 2020 2:35pm 0.8 mg/dL 0.5-1.1 [facility], [address] [place] [address] Creatinine July 01, 2020 9:40pm 0.9 mg/dL 0.5-1.1 [facility], [address] [place], [place] [id number] Creatinine May 18, 2020 6:17am 0.7 mg/dL 0.5-1.1 [facility], [address] [place] [address] 42828 Creatinine March 25, 2020 8:11am 0.9 mg/dL 0.5-1.1 [facility], [address] [place], [place] [address] Creatinine March 11, 2020 12:14pm 1.2 mg/dL 0.5-1.1 [facility], [address] [place], [place] [address] Creatinine March 02, 2020 11:00am 1.0 mg/dL 0.5-1.1 [facility], [address] [place], [place] [id number] Creatinine February 26, 2020 10:02am 1.0 mg/dL 0.5-1.1 [facility], [address] [place], [place] [address] Creatinine February 20, 2020 8:35am 1.1 mg/dL 0.5-1.1 [facility], [address] [place] [address] 71497 Glomerular Filtration Rate Calc Febr uary 2020 8:05pm Greater than 60 ml/min ABOVE 60 [facility], [address] [place] [address] Glomerular Filtration Rate Calc Lukas krystina 2020 11:50pm Greater than 60 ml/min ABOVE 60 [facility], [address] [place] [address] 68930 Glomerular Filtration Rate Calc Lukas krystina 2020 12:03pm Greater than 60 ml/min ABOVE 60 [facility], [address] [place] [address] 25397 Glomerular Filtration Rate Calc Lukas krystina 2020 8:15pm 60 ml/min ABOVE 60 [facility], [address] [place] [address] 43401 Glomerular Filtration Rate Calc Dece mber 2019 7:35pm 50 ml/min ABOVE 60 [facility], [address] [place] [address] 98478 Glomerular Filtration Rate Calc Dece mb2019 2:35pm Greater than 60 ml/min ABOVE 60 [facility], [address] [place] [address] 50566 Glomerular Filtration Rate Calc Nove 2019 9:40pm Greater than 60 ml/min ABOVE 60 [facility], [address] [place] [address] 77048 Glomerular Filtration Rate Calc Sept 2019 6:17am Greater than 60 ml/min ABOVE 60 [facility], [address] [place] [address] 51546 Glomerular Filtration Rate Calc Aug2019 8:11am Greater than 60 ml/min ABOVE 60 [facility], [address] [place] [address] 04123 Glomerular Filtration Rate Calc March 11, 2020 12:14pm 55 ml/min ABOVE 60 [facility], [address] [place] [address] 41557 Glomerular Filtration Rate Calc March 02, 2020 11:00am Greater than 60 ml/min ABOVE 60 [facility], [address] [place] [address] 89957 Glomerular Filtration Rate Calc February 26, 2020 10:02am Greater than 60 ml/min ABOVE 60 [facility], [address] [place] [address] 35479 Glomerular Filtration Rate Calc February 20, 2020 8:35am Greater than 60 ml/min ABOVE 60 [facility], [address] [place] [address] 91333 Alanine Aminotransferase (ALT/SGPT) September 23, 2020 8:05pm 27 U/L 10-49 [facility], [address] [place] [address] 61230 Alanine Aminotransferase (ALT/SGPT) September 09, 2020 11:50pm 31 U/L 10-49 [facility], [address] [place] [address] 48491 Alanine Aminotransferase (ALT/SGPT) September 05, 2020 12:03pm 69 U/L 10-49 [facility], [address] [place] [address] 20428 Alanine Aminotransferase (ALT/SGPT) August 09, 2020 7:35pm 30 U/L 10-49 [facility], [address] [place] [address] Alanine Aminotransferase (ALT/SGPT) August 03, 2020 2:35pm 42 U/L 10-49 [facility], [address] [place] [address] 58783 Alanine Aminotransferase (ALT/SGPT) July 01, 2020 9:40pm 43 U/L 10-49 [facility], [address] [place] [address] 17417 Alanine Aminotransferase (ALT/SGPT) May 18, 2020 6:17am 52 U/L 10-49 [facility], [address] [place] [address] 24890 Alanine Aminotransferase (ALT/SGPT) March 25, 2020 8:11am 27 U/L 10-49 [facility], [address] [place] [address] 04525 Alanine Aminotransferase (ALT/SGPT) March 11, 2020 12:14pm 29 U/L 10-49 [facility], [address] [place] [address] 42563 Alanine Aminotransferase (ALT/SGPT) March 02, 2020 11:00am 29 U/L 10-49 [facility], [address] [place] [address] 62635 Alanine Aminotransferase (ALT/SGPT) February 26, 2020 10:02am 33 U/L 10-49 [facility], [address] [place] [address] 28630 Alanine Aminotransferase (ALT/SGPT) February 20, 2020 8:35am 42 U/L 10-49 [facility], [address] [place] [address] 82048 Aspartate Amino Transf (AST/SGOT) Fe bruary 2020 8:05pm 14 U/L 0-33 [facility], [address] [place] [address] 54340 Aspartate Amino Transf (AST/SGOT) Ja nueau galle 2020 11:50pm 12 U/L 0-33 [facility], [address] [place] [address] 38543 Aspartate Amino Transf (AST/SGOT) Ja nuary 2020 12:03pm 29 U/L 0-33 [facility], [address] [place] [address] 04439 Aspartate Amino Transf (AST/SGOT) De cember 2019 7:35pm 13 U/L 0-33 [facility], [address] [place] [address] 18286 Aspartate Amino Transf (AST/SGOT) De cember 2019 2:35pm 35 U/L 0-33 [facility], [address] [place] [address] 63497 Aspartate Amino Transf (AST/SGOT) No vember 2019 9:40pm 21 U/L 0-33 [facility], [address] [place] [address] 25142 Aspartate Amino Transf (AST/SGOT) Se ptember 2019 6:17am 27 U/L 0-33 [facility], [address] [place] [address] 87830 Aspartate Amino Transf (AST/SGOT) Au kem 2019 8:11am 15 U/L 0-33 [facility], [address] [place] [address] 75999 Aspartate Amino Transf (AST/SGOT) Ju ly 2019 12:14pm 17 U/L 0-33 [facility], [address] [place] [address] 53375 Aspartate Amino Transf (AST/SGOT) Ju ly 2019 11:00am 14 U/L 0-33 [facility], [address] [place] [address] 01360 Aspartate Amino Transf (AST/SGOT) Ju ly 2019 10:02am 17 U/L 0-33 [facility], [address] [place] [address] 77322 Aspartate Amino Transf (AST/SGOT) Ju ne 2019 8:35am 23 U/L 0-33 [facility], [address] [place] [address] 49162 Alkaline Phosphatase September 23 021 8:05pm 139 U/L 45-129 [facility], [address] [place] [address] 86022 Alkaline Phosphatase September 09 021 11:50pm 131 U/L 45-129 [facility], [address] [place] [address] 29512 Alkaline Phosphatase September 05 021 12:03pm 167 U/L 45-129 [facility], [address] [place] [address] 60274 Alkaline Phosphatase August 09, 2020 7:35pm 122 U/L 45-129 [facility], [address] [place] [address] 06508 Alkaline Phosphatase August 03, 2020 2:35pm 125 U/L 45-129 [facility], [address] [place] [address] 19419 Alkaline Phosphatase July 01 9:40pm 139 U/L 45-129 [facility], [address] [place] [address] 85292 Alkaline Phosphatase May 18, 2020 6:17am 110 U/L 45-129 [facility], [address] [place] [address] 48337 Alkaline Phosphatase March 25 8:11am 122 U/L 45-129 [facility], [address] [place] [address] 70526 Alkaline Phosphatase March 11, 2020 12:14pm 129 U/L 45-129 [facility], [address] [place] [address] 05874 Alkaline Phosphatase March 02, 2020 11:00am 136 U/L 45-129 [facility], [address] [place] [address] 58308 Alkaline Phosphatase February 26, 2020 10:02a m 147 U/L 45-129 [facility], [address] [place] [address] 97658 Alkaline Phosphatase February 20, 2020 8:35a m 149 U/L 45-129 [facility], [address] [place] [address] 88808 Amylase Level September 09, 2020 11:50pm 45 U/L 30-118 [facility], [address] [place] [address] 21414 Amylase Level August 09, 2020 7:35pm 39 U/L 30-118 [facility], [address] [place] [address] 34238 Amylase Level August 03, 2020 2:35pm 31 U/L 30-118 [facility], [address] [place] [address] 13917 Amylase Level May 17, 2020 7:20pm 39 U/L 30-118 [facility], [address] [place] [address] 07488 Amylase Level March 25, 2020 8:11am 35 U/L 30-118 [facility], [address] [place] [address] 44104 Lipase September 23, 2020 8:05pm 120 U/L 73-393 [facility], [address] [place] [address] 62863 Lipase September 09, 2020 11:50pm 116 U/L 73-393 [facility], [address] [place] [address] 23620 Lipase August 09, 2020 7:35pm 90 U/L 73-393 [facility], [address] [place] [address] 09520 Lipase August 03, 2020 2:35pm 68 U/L 73-393 [facility], [address] [place] [address] 25611 Lipase May 17, 2020 7:20pm 89 U/L 73-393 [facility], [address] [place] [address] 26919 Lipase March 25, 2020 8:11am 97 U/L 73-393 [facility], [address] [place] [address] 64006 Lipase March 11, 2020 12:14pm 128 U/L 73-393 [facility], [address] [place] [address] 14085 Calcium Level September 23, 2020 8:05pm 9.6 mg/dL 8.5-10.1 [facility], [address] [place] [address] 01890 Calcium Level September 09, 2020 11:50pm 9.6 mg/dL 8.5-10.1 [facility], [address] [place] [address] [id number] Calcium Level September 05, 2020 12:03pm 9.4 mg/dL 8.5-10.1 [facility], [address] [place] [address] [id number] Calcium Level August 30, 2020 8:15pm 9.6 mg/dL 8.5-10.1 [facility], [address] [place] [address] [id number] Calcium Level August 09, 2020 7:35pm 9.5 mg/dL 8.5-10.1 [facility], [address] [place] [address] 79500 Calcium Level August 03, 2020 2:35pm 9.1 mg/dL 8.5-10.1 [facility], [address] [place] [address] 11368 Calcium Level July 01, 2020 9:40pm 9.2 mg/dL 8.5-10.1 [facility], [address] [place] [address] 22966 Calcium Level May 18, 2020 6:17am 8.5 mg/dL 8.5-10.1 Delta: 9.6 on 05/17/20-2019Repeated by: Roderick Cee 05/18/20 0824.Result Confirmation: 8.3 # mg/dL [facility], [address] [place] [address] 19957 Calcium Level March 25, 2020 8:11am 8.9 mg/dL 8.5-10.1 [facility], [address] [place] [address] 22214 Calcium Level March 11, 2020 12:14pm 8.6 mg/dL 8.5-10.1 [facility], [address] [place] [address] 18639 Calcium Level March 02, 2020 11:00am 9.0 mg/dL 8.5-10.1 [facility], [address] [place] [address] [id number] Calcium Level February 26, 2020 10:02am 9.0 mg/dL 8.5-10.1 [facility], [address] [place] [address] [id number] Calcium Level February 20, 2020 8:35am 9.4 mg/dL 8.5-10.1 [facility], [address] [place] [address] 46471 Total Bilirubin September 23, 2020 8:05pm 0.2 mg/dL 0.3-1.2 [facility], [address] [place] [address] [id number] Total Bilirubin September 09, 2020 11:50pm 0.2 mg/dL 0.3-1.2 [facility], [address] [place] [address] [id number] Total Bilirubin September 05, 2020 12:03pm 0.3 mg/dL 0.3-1.2 [facility], [address] [place] [address] 20524 Total Bilirubin August 09, 2020 7:35pm 0.3 mg/dL 0.3-1.2 [facility], [address] [place] [address] [id number] Total Bilirubin August 03, 2020 2:35pm 0.4 mg/dL 0.3-1.2 [facility], [address] [place] [address] [id number] Total Bilirubin July 01, 2020 9:40pm 0.3 mg/dL 0.3-1.2 [facility], [address] [place] [address] [id number] Total Bilirubin May 18, 2020 6:17a m 0.3 mg/dL 0.3-1.2 [facility], [address] [place] [address] [id number] Total Bilirubin March 25, 2020 8:11am 0.2 mg/dL 0.3-1.2 [facility], [address] [place] [address] 77641 Total Bilirubin March 11, 2020 12:14pm 0.2 mg/dL 0.3-1.2 [facility], [address] [place] [address] 94880 Total Bilirubin March 02, 2020 11:00am 0.4 mg/dL 0.3-1.2 [facility], [address] [place] [address] 81285 Total Bilirubin February 26, 2020 10:02am 0.3 mg/dL 0.3-1.2 [facility], [address] [place] [address] 27818 Total Bilirubin February 20, 2020 8:35am 0.3 mg/dL 0.3-1.2 [facility], [address] [place] [address] 78955 Albumin September 23, 2020 8:05pm 3.7 g/dL 3.2-4.8 [facility], [address] [place] [address] 99116 Albumin September 09, 2020 11:50pm 3.5 g/dL 3.2-4.8 [facility], [address] [place] [address] 90320 Albumin September 05, 2020 12:03pm 3.4 g/dL 3.2-4.8 [facility], [address] [place] [address] 12246 Albumin August 09, 2020 7:35pm 3.6 g/dL 3.2-4.8 [facility], [address] [place] [address] 28497 Albumin August 03, 2020 2:35pm 3.5 g/dL 3.2-4.8 [facility], [address] [place] [address] 28268 Albumin July 01, 2020 9:40pm 3.5 g/dL 3.2-4.8 [facility], [address] [place] [address] 92473 Albumin May 18, 2020 6:17am 3.0 g/dL 3.2-4.8 [facility], [address] [place] [address] 97637 Albumin March 25, 2020 8:11am 3.0 g/dL 3.2-4.8 [facility], [address] [place] [address] 50395 Albumin March 11, 2020 12:14pm 3.2 g/dL 3.2-4.8 [facility], [address] [place] [address] 65057 Albumin March 02, 2020 11:00am 3.1 g/dL 3.2-4.8 [facility], [address] [place] [address] 07293 Albumin February 26, 2020 10:02am 3.4 g/dL 3.2-4.8 [facility], [address] [place] [address] 80898 Albumin February 20, 2020 8:35am 3.5 g/dL 3.2-4.8 [facility], [address] [place] [address] Serum Total Protein September 23 8:05pm 8.6 g/dL 5.7-8.2 [facility], [address] [place] [address] Serum Total Protein September 09 11:50pm 8.2 g/dL 5.7-8.2 [facility], [address] [place] [address] Serum Total Protein September 05 12:03pm 7.8 g/dL 5.7-8.2 [facility], [address] [place] [address] 84463 Serum Total Protein August 09, 020 7:35pm 8.2 g/dL 5.7-8.2 [facility], [address] [place] [address] 73718 Serum Total Protein August 03, 020 2:35pm 8.1 g/dL 5.7-8.2 [facility], [address] [place] [address] 34950 Serum Total Protein July 01 9:40pm 8.0 g/dL 5.7-8.2 [facility], [address] [place] [address] Serum Total Protein May 18, 2020 6:17am 6.6 g/dL 5.7-8.2 [facility], [address] [place] [address] Serum Total Protein March 25, 2020 8:11a m 7.7 g/dL 5.7-8.2 [facility], [address] [place] [address] 71518 Serum Total Protein March 11, 2020 12:14p m 7.6 g/dL 5.7-8.2 [facility], [address] [place] [address] 85283 Serum Total Protein March 02, 2020 11:00a m 7.9 g/dL 5.7-8.2 [facility], [address] [place] [address] 86708 Serum Total Protein February 26, 2020 10:02am 7.6 g/dL 5.7-8.2 [facility], [address] [place] [address] 73117 Serum Total Protein February 20, 2020 8:35am 7.9 g/dL 5.7-8.2 [facility], [address] [place] [address] 13985 Lactic Acid Level July 01, 2020 9:40p m 1.0 mmol/L 0.5-2.2 [facility], [address] [place] [address] 55030 Human Chorionic Gonadotropin, Quant August 09, 2020 7:35pm 95719 mIU/mL 0-10 APPROXIMATE GESTATION AGE APRROX IMATE HCG RANGE 0-1 WEEK 0 - 50 1-2 WEEKS 40 - 300 2-3 WEEKS 100 - 1,000 3-4 WEEKS 500 - 6,000 1-2 MONTHS 5,000 - 200,000 2-3 MONTHS 10,000 - 100,000 2ND TRIMESTER 3,000 - 50,000 3RD TRIMESTER 1,000 - 50,000 [facility], [address] [place] [address] 07189 Human Chorionic Gonadotropin, Quant August 14, 2020 9:31am 54369 mIU/mL 0-10 APPROXIMATE GESTATION AGE APRROX IMATE HCG RANGE 0-1 WEEK 0 - 50 1-2 WEEKS 40 - 300 2-3 WEEKS 100 - 1,000 3-4 WEEKS 500 - 6,000 1-2 MONTHS 5,000 - 200,000 2-3 MONTHS 10,000 - 100,000 2ND TRIMESTER 3,000 - 50,000 3RD TRIMESTER 1,000 - 50,000 [facility], [address] [place] [address] 38787 Human Chorionic Gonadotropin, Quant August 03, 2020 2:35pm 67266 mIU/mL 0-10 APPROXIMATE GESTATION AGE APRROX IMATE HCG RANGE 0-1 WEEK 0 - 50 1-2 WEEKS 40 - 300 2-3 WEEKS 100 - 1,000 3-4 WEEKS 500 - 6,000 1-2 MONTHS 5,000 - 200,000 2-3 MONTHS 10,000 - 100,000 2ND TRIMESTER 3,000 - 50,000 3RD TRIMESTER 1,000 - 50,000 [facility], [address] [place] [address] 75160 Human Chorionic Gonadotropin, Quant July 01, 2020 10:10am Less than 1 mIU/mL 0-1 0 APPROXIMATE GESTATION AGE APRROX IMATE HCG RANGE 0-1 WEEK 0 - 50 1-2 WEEKS 40 - 300 2-3 WEEKS 100 - 1,000 3-4 WEEKS 500 - 6,000 1-2 MONTHS 5,000 - 200,000 2-3 MONTHS 10,000 - 100,000 2ND TRIMESTER 3,000 - 50,000 3RD TRIMESTER 1,000 - 50,000 [facility], [address] [place] [address] 45981 Thyroid Stimulating Hormone (TSH) Ju ly 2019 10:02am 1.84 uIU/mL 0.35-5.50 [facility], [address] [place] [address] 85181 Serum Test, Qualitative Fe bruary 2020 8:05pm Negative NEGATIVE [facility], [address] [place] [address] 76318 Serum Test, Qualitative Ja nuary 2020 11:50pm Negative NEGATIVE [facility], [address] [place] [address] 91243 Serum Test, Qualitative De cember 2019 2:35pm Positive NEGATIVE [facility], [address] [place] [address] 42163 Serum Test, Qualitative No vember 2019 9:40pm Negative NEGATIVE [facility], [address] [place] [address] 52921 Serum Test, Qualitative Se ptember 2019 7:20pm Negative NEGATIVE [facility], [address] [place] [address] 07654 Serum Test, Qualitative Au kem 2019 8:11am Negative NEGATIVE [facility], [address] [place] [address] 77923 Urine HCG, Qualitative March 11 11:00am Negative NEGATIVE [facility], [address] [place] [address] 45877 Urine HCG, Qualitative March 02 11:00am Negative NEGATIVE [facility], [address] [place] [address] 21428 Urine HCG, Qualitative February 19 8:32am Negative NEGATIVE [facility], [address] [place] [address] 27492 Stool C. Difficile GDH Antigen Febru krystina 2020 7:55pm See note CLOSTRIDIUM DIFFICILE TOXIN/GDH W/REFL TO PCR Micro Number: [id number] Test Status: Final Specimen Source: STOOL Specimen Quality: Adequate GDH Antigen: Not Detected Toxin A and B: Not Detected COMMENT: No toxigenic C. difficile detected For additional information, please refer to http://education.[employer]ION/faq/BAI181 (This link is being provided for informational/educational purposes only.)THIS TEST WAS PERFORMED AT:[employer] [id number] Vikram NOVOA Coronavirus (COVID-19)(PCR) March 252019 2:30pm Not detected Not Detec dee This test was developed and its performa nce characteristicsdetermined by [employer]. This test has not beenFDA cleared or [...] result in this assay.Performed at: - [facility] [address] [id number] Director: Deisy Hdez MD, Phone: [phone] [facility] , [address] [facility] [address] Urine Random Creatinine February 27 7:19am 234.0 mg/dL THERE IS NO ESTABLISHED RANGE FOR RANDOM URINE CREATININE [facility], [address] [place] [address] Urine Microalbumin February 28, 2020 7:19am 13.7 mg/L 0.0-29.9 [facility], [address] [place] [address] Urine Microalbumin/Creatinine Ratio February 28, 2020 7:19am 5.8 ug/mg 0.0-30.0 [facility], [address] [place] [address] Hemoglobin A1c February 26, 2020 10:02am 5.3 [...] glucose control. * High risk of developing terminal worker complications such asretinopathy, nephropathy, neuropathy, cardiopathy, etc. Some danger of hypoglycemic reaction in Type I diabetics.Some glucose intolerant individuals and "Sub Clinical"diabetics may demonstrate HGBA1C levels in this area. [facility], [address] [place] [address] Estimated Average Glucose (eAG) February 26, 2020 10:02am 105 mg/dl An A1C of 7% - the goal of diabetic therapy - is equivalentto an EAG of 154 mg/dl. [facility], [address] [place] [address] Microbiology Results Procedure Source Result Collection Date/Time Result Date/Time Result Comment Performing Site Urine Culture Urine,voided September 23, 2020 7:46pm September 252020 6:28am [facility], [address] [place] [address] Urine Culture Urine,voided September 09, 2020 10:50pm August 242020 8:14am [facility], [address] [place] [address] 71684 Urine Culture Urine,voided August 30, 2020 8:15pm August 2:09pm [facility], [address] [place] [address] Urine Culture Urine,voided August 09, 2020 8:06pm August 11, 2020 7:16am [facility], [address] [place] [address] Urine Culture Urine,clean catch August 03, 2020 2:50pm August 04, 2020 11:45am [facility], [address] [place] [address] 18205 Urine Culture Urine,voided July 01, 2020 9:30pm June 232019 7:24am [facility], [address] [place] [address] 51984 Urine Culture Urine,voided May 18, 2020 1:15am Septembe r 2019 11:25am [facility], [address] [place] [address] 60197 Urine Culture Urine,clean catch March 25, 2020 9:05am March 26, 2020 1:36pm [facility], [address] [place], [place] [id number] Urine Culture Urine,clean catch March 11, 2020 12:00pm March 12, 020 1:24pm [facility], [address] [place] [address] 92983 Urine Culture Urine,voided March 05, 2020 3:29pm March 06 9:18am [facility], [address] [place] [address] 01830 Urine Culture Urine,voided March 02, 2020 11:48am March 03, 2 020 8:26am [facility], [address] [place] [address] 11685 Streptococcus Rapid Screen Throat March 13, 2020 10:34am March 14, 2 020 8:58am [facility], [address] [place] [address] 63510 Streptococcus Rapid Screen Throat March 13, 2020 10:34am March 13, 2 020 11:04am [facility], [address] [place] [address] 46820 Blood Culture Venous blood No growth. July 01, 2020 9:40pm June 232019 9:46pm [facility], [address] [place] [address] 16776 SARS-CoV-2 (PCR) Interpretation Naso pharyngeal No Organisms Detected July 01, 2020 9:45pm July 01, 2020 10:29pm [facility], [address] [place] [address] 40876 Nasal BinaxNow Covid - 19 Ag Negative July 30, 2020 9:45am July 302019 11:56am [facility], [address] [place] [address] 37650 Influenza-Like Illness (PCR) Nasopharyngea l Sars-Cov-2 Not Detected September 23, 2020 7:49pm September 23, 2020 9:05pm [facility], [address] [place] [address] 64377 Nasopharyngeal Influen za A Not Detected September 23, 2020 7:49pm September 232020 9:05pm [facility], [address] [place] [address] 17749 Nasopharyngeal Influen za B Not Detected September 23, 2020 7:49pm September 232020 9:05pm [facility], [address] [place] [address] 38419 Nasopharyngeal September 23, 2020 7:49pm September 23, 2020 9:05pm [facility], [address] [place] [address] 34654 Influenza-Like Illness (PCR) Nasopharyngea l No Organisms Detected August 22, 2020 6:22am August 22, 2020 7:41am [facility], [address] [place] [address] 61795 Nasopharyngeal August 22, 2020 6:22am August 22, 2020 7:41am [facility], [address] [place] [address] 11553 Gastrointestinal Tract Panel (PCR) Stool C. difficile toxin detected May 17, 2020 3:03pm May 17, 2020 5:25pm [facility], [address] [place] [address] Respiratory Panel (PCR) Nasopharyngeal No Organisms Detected May 18, 2020 1:40am May 18, 2020 2:49am [facility], [address] [place] [address] Diagnostic Imaging Reports Report Dictated Date/Time Dictated By Status Radiology Report February 28, 2020 9:48am Oliverio Chen MD completed [place] [id number] [facility] [place] [address] [phone] NAME SEX PT STATUS ACCOUNT NUMBER ANNA MARIE BELTRAN REG REF [id number] ORDERING PHYSICIAN LOCATION MEDICAL RECORD NO. Jose Kramer DO [id number] ATTENDING PHYSICIAN DATE OF DATE OF EXAM/TIME Jose Kramer 1995 02/28/20826 TYPE / EXAM US Abdomen [...] 02, 2020 1:53pm Warren Bourne MD completed [facility] [address] [facility] [place] [address] [phone] NAME SEX PT STATUS ACCOUNT NUMBER ANNA MARIE BELTRAN [facility] [id number] ORDERING PHYSICIAN LOCATION MEDICAL RECORD NO. Sameer Islas MD ER [id number] ATTENDING PHYSICIAN DATE OF DATE OF EXAM/TIME [...] Reported By Warren Bourne MD on 03/02/20 3395 Signed By Warren Bourne MD on 03/02/20 0350 Date Time CC: Jose Kramer DO; Warren Bourne MD Techn: MARCIN Trans Dt/Tm: Trans by: DT Prt Dt/Tm: : Total DLP = 1121.00 mGy-cm : Total Radiation Dose = 16.8150 mSv Lifetime Dose: 16.8150 mS v Radiology Report March 12, 2020 2:59pm Oliverio Chen MD completed [facility] [address] [place] [address] [phone] NAME SEX PT STATUS ACCOUNT NUMBER ANNA MARIE BELTRAN REG REF [id number] ORDERING PHYSICIAN LOCATION MEDICAL RECORD NO. Pola Meadows MD [id number] ATTENDING PHYSICIAN DATE OF DATE OF EXAM/TIME [...] Reported By Oliverio Chen MD on 03/12/20 3569 Signed By Oliverio Chen MD on 03/12/20 1501 Date Time CC: Jose Kramer DO; Oliverio Chen MD Techn: FREST Trans Dt/Tm: Trans by: DT Prt Dt/Tm: : Total DLP = 0.00 mGy-cm : Total Radiation Dose = 0.0000 mSv Lifetime Dose: 16.8150 mSv Radiology Report March 25, 2020 10:18am Oliverio Chen MD completed [address] [address] [phone] NAME SEX PT STATUS ACCOUNT NUMBER ANNA MARIE BELTRAN REG ER [id number] ORDERING PHYSICIAN LOCATION MEDICAL RECORD NO. Hiren Perez MD ER [id number] ATTENDING PHYSICIAN DATE OF DATE OF EXAM/TIME [...] May 17 9:41pm Ulisses Sethi MD completed [address] [address] [phone] NAME SEX PT STATUS ACCOUNT NUMBER CANDIE BELTRANELYNN Vivian [facility] ER [id number] ORDERING PHYSICIAN LOCATION MEDICAL RECORD NO. Mikhail Sheriff MD ER [id number] ATTENDING PHYSICIAN DATE OF DATE OF EXAM/TIME MadaiTrice YELITZA 1995 05/17/202008 TYPE / EXAM CT Abd/pel [...] 05/17/202140 Date Time CC: Trice Aj; Ulisses Setih MD Techn: YAULU Trans Dt/Tm: Trans by: DT Prt Dt/Tm: : Total DLP = 1196.00 mGy-cm : Total Radiation Dose = 17.9400 mSv Lifetime Dose: 34.7550 mS v Radiology Report July 01, 2020 10:55p m Telly Robledo MD completed [place] [id number] [place] [address]246 [phone] NAME SEX PT STATUS ACCOUNT NUMBER ANNA MARIE BELTRAN [facility] ER [id number] ORDERING PHYSICIAN LOCATION MEDICAL RECORD NO. Mikhail Sheriff MD ER [id number] ATTENDING PHYSICIAN DATE OF DATE OF EXAM/TIME [...] CC: Nicol Sebastian; Telly Robledo MD Techn: YAULU Trans Dt/Tm: Trans by: DT Prt Dt/Tm: : Total DLP = 0.00 mGy-cm Fluoroscopy Time (in secs): Radiology Report July 01, 2020 11:07p m Niels Wilkerson MD completed [facility] [address] [place] [address] [phone] NAME SEX PT STATUS ACCOUNT NUMBER ANNA MARIE BELTRAN [facility] ER [id number] ORDERING PHYSICIAN LOCATION MEDICAL RECORD NO. Mikhail Sheriff MD ER [id number] ATTENDING PHYSICIAN DATE OF DATE OF EXAM/TIME [...] CC: Nicol Sebastian; Niels Wilkerson MD Techn: YAULU Trans Dt/Tm: Trans by: DT Prt Dt/Tm: : Total DLP = 1469.00 mGy-cm : Total Radiation Dose = 22.0350 mSv Lifetime Dose: 56.7900 mS v Radiology Report August 03, 2020 7:33p m Gibran Villa MD completed [place] [address] [place] [address]267 [phone] NAME SEX PT STATUS ACCOUNT NUMBER ANNA MARIE BELTRAN [facility] [id number] ORDERING PHYSICIAN LOCATION MEDICAL RECORD NO. Daljit Alex MD ER [id number] ATTENDING PHYSICIAN DATE OF DATE OF EXAM/TIME [...] 2020 7:59p m Telly Robledo MD completed [place] [address] [place] [address] [phone] NAME SEX PT STATUS ACCOUNT NUMBER ANNA AMRIE BELTRAN [facility] ER [id number] ORDERING PHYSICIAN LOCATION MEDICAL RECORD NO. Daljit Alex MD ER [id number] ATTENDING PHYSICIAN DATE OF DATE OF EXAM/TIME [...] 2020 7:34p m Gibran Villa MD completed [address] [address] [phone] NAME SEX PT STATUS ACCOUNT NUMBER ANNA MARIE BELTRAN [facility] ER [id number] ORDERING PHYSICIAN LOCATION MEDICAL RECORD NO. Daljit Alex MD ER [id number] ATTENDING PHYSICIAN DATE OF DATE OF EXAM/TIME Maura Sebastianadrian TORRE 1995 08/03/201858 TYPE / EXAM US OB Ultrasound <14 weeks REASON FOR EXAM RLQ PAIN; R/O ECTOPIC [address] [address] [phone] NAME SEX PT STATUS ACCOUNT NUMBER ANNA MARIE BELTRAN [facility] ER [id number] ORDERING PHYSICIAN LOCATION MEDICAL RECORD NO. Daljit Alex MD ER [id number] ATTENDING PHYSICIAN DATE OF DATE OF EXAM/TIME [...] to 5 weeks and 4 days and [facility] of 04/01/2021. There is no pole seen [...] 2020 9:02p m Telly Robledo MD completed [place] [address] [place], [place] [address] [phone] NAME SEX PT STATUS ACCOUNT NUMBER ANNA MARIE BELTRAN [facility] [id number] ORDERING PHYSICIAN LOCATION MEDICAL RECORD NO. Mikhail Sheriff MD ER [id number] ATTENDING PHYSICIAN DATE OF DATE OF EXAM/TIME Nicol Sebastian NP 1995 08/09/202038 TYPE / EXAM US OB Ultrasound <14 weeks REASON FOR EXAM Gen abd pain. +HCG ANNA MARIE BELTRAN [id number] 1995 ADDENDUM Clinical History/Indication for Exam: Gen [...] 14, 2020 11:09am Oliverio Chen MD completed [place] [address] [place] [address] [phone] NAME SEX PT STATUS ACCOUNT NUMBER ANNA MARIE BELTRAN REG REF [id number] ORDERING PHYSICIAN LOCATION MEDICAL RECORD NO. Jarret Herbert MD [id number] ATTENDING PHYSICIAN DATE OF DATE OF EXAM/TIME Nicol Sebastian NP 1995 08/14/20915 TYPE / EXAM US OB Ultrasound <14 weeks REASON FOR EXAM FOLLOW UP SUBCHOR/ EARLY COMPARISON: August 19, 2020 and 2019 FINDINGS: Gestation: Single Lagro-rump length: Singlemm compatible with a Single week Single day gestational age. Yolk sac: Not seen No heart rate detected. Uterus: 8.5 x 4.6 x 7.0cm. A subchorionic hemorrhage is still seen. Average ultrasound age of 5 weeks 6 days. EDC: April 10, 2021. Lagro-rump length: 3.4mm IMPRESSION: 1. Gestational sac measurements, unchanged. 2. Subarachnoid hemorrhage is still seen. 3. Linear intraamniotic echogenicity, possibly the pole. No heart rate detected. Reported By Oliverio Chen MD on 08/14/20 1109 Signed By Oliverio Chen MD on 08/14/20 1114 Date Time CC: Nicol Sebastian; Oliverio Chen MD Techn: FREST Trans Dt/Tm: Trans by: DT Prt Dt/Tm: 8516-0590: Total DLP = 0.00 mGy-cm 8622-2857: Total Radiation Dose = 0.0000 mSv Lifetime Dose: 56.7900 mSv Radiology Report August 09, 2020 9:05p vivian Robledo MD completed [facility] [address] [place] [address] [phone] NAME SEX PT STATUS ACCOUNT NUMBER ANNA MARIE BELTRAN [facility] ER [id number] ORDERING PHYSICIAN LOCATION MEDICAL RECORD NO. Mikhail Sheriff MD ER [id number] ATTENDING PHYSICIAN DATE OF DATE OF EXAM/TIME Nicol Sebastian PATIENT FINANCIAL COUNSELOR 1995 08/09/202039 TYPE / EXAM US OB Transvaginal REASON FOR EXAM PAIN [place] [address] [place] [address] [phone] NAME SEX PT STATUS ACCOUNT NUMBER ANNA MARIE BELTRAN [facility] ER [id number] ORDERING PHYSICIAN LOCATION MEDICAL RECORD NO. Mikhail Sheriff MD ER [id number] ATTENDING PHYSICIAN DATE OF DATE OF EXAM/TIME RomuloMauraNicol NP 1995 08/09/202038 TYPE / EXAM US OB Ultrasound <14 weeks REASON FOR EXAM Gen abd pain. +HCG ANNA MARIE BELTRAN [id number] 1995 ADDENDUM Clinical History/Indication for Exam: Gen [...] 21, 2020 10:47am Oliverio Chen MD completed [facility] [address] [place] [address]177 [phone] NAME SEX PT STATUS ACCOUNT NUMBER ANNA MARIE BELTRAN PRE REF [id number] ORDERING PHYSICIAN LOCATION MEDICAL RECORD NO. Jarret Herbert MD [id number] ATTENDING PHYSICIAN DATE OF DATE OF EXAM/TIME Nicol Sebastian NP 1994 08/21/201016 TYPE / EXAM US OB Transvaginal REASON FOR EXAM EVAL FOR IUP COMPARISON: August 14, 2020. FINDINGS: Gestation: Single Lagro-rump length: No pole seen. Gestational sac: 13.4 [...] 21, 2020 10:47am Oliverio Chen MD completed [facility] [address] [place] [address] [phone] NAME SEX PT STATUS ACCOUNT NUMBER ANNA MARIE BELTRAN PRE REF [id number] ORDERING PHYSICIAN LOCATION MEDICAL RECORD NO. Jarret Herbert MD [id number] ATTENDING PHYSICIAN DATE OF DATE OF EXAM/TIME Nicol Sebastian NP 1994 08/21/201016 TYPE / EXAM US OB Ultrasound <14 weeks REASON FOR EXAM Re-evaluation for subchor. COMPARISON: August 14, 2020. FINDINGS: Gestation: Single Lagro-rump length: No pole seen. 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 Post op care R19.7 HEADACHE, NAUSEA, DIZZY Telemed Visit E66.01 Amb Documentation ABDOMINAL PAIN Amb Documentation Telemed Visit Reason for Visit Anxiety Depression GERD (gastroesophageal reflux disease) Hepatomegaly HTN (hypertension) Morbid obesity PTSD (post-traumatic stress disorder) Metrorrhagia Anxiety Depression HTN (hypertension) Morbid obesity PTSD (post-traumatic stress disorder) Anxiety Nausea Abdominal pain Abdominal pain Abdominal pain Insomnia Anxiety Depression Morbid obesity Numbness and tingling of both legs Morbid obesity Elevated serum creatinine GERD (gastroesophageal reflux disease) PTSD (post-traumatic stress disorder) PTSD (post-traumatic stress disorder) Rash of finger Encounters Encounter Location(s) [place]/Admit Date Discharge/Depart Date Provider(s) Registered Referred [facility] February 20, 2020 8:12am Bianka Sen MD Departed Physician/Provider Office Visit [facility] February 20, 2020 10:22am February 20, 2020 11:42am Cesario Metcalf Registered Referred [facility] February 26, 2020 9:54am Jose Kramer DO [facility]istered [facility] [place] February 28, 2020 6:57am Jose Kramer DO Departed Emergency [facility] March 02, 2020 10:34am March 02, 2020 1:45pm null Depart[address] Emergency [facility] March 05, 2020 2:01pm March 05, 2020 4:29pm null Departed Physician/Provider Office Visit [facility] March 11, 2020 9:28am March 11, 2020 10:13am Trice dimas NP Departed Physician/Provider Office Visit [facility] March 11, 2020 10:17am March 11, 2020 11:49am Pola Meadows MD Registered Referred [facility] March 11, 2020 11:56am Trice Aj NP Registered Referred [facility] [place] March 12, 2020 11:38am Pola Meadows MD Departed Physician/Provider Office Visit [facility] March 12, 2020 12:22pm March 12, 2020 2:13pm Trice holbrook NP Departed Emergency [facility] March 13, 2020 9:18am March 13, 2020 10:18am null [address]art[address] [facility] March 25, 2020 7:55am March 25, 2020 9:27am null Departed Physician/Provider Office Visit [facility] March 25, 2020 2:51pm March 25, 2020 2:52pm Nathalie valerio Registered Referred [facility] Drop Off March 25, 2020 3:08pm Nathalie Pace Departed Physician/Provider Office Visit [facility] March 28, 2020 7:01am March 28, 2020 7:47am Trice dimas NP Registered Outpatient [facility] Internal Medicine April 05, 2020 8:29am Trice Aj [facility], 2020 1:48pm Trice Aj NP Discharged Inpatient [facility] May 18, 2020 12:18am Septemb er 2019 2:40pm Tad Menendez MD Registered Outpatient [facility] May 20, 2020 2:25pm Amara Garcia RN Departed Physician/Provider Office Visit [facility] May 23, 2020 7:51am May 23, 2020 8:35am Trice Aj NP Departed Physician/Provider Office Visit [facility] May 30, 2020 9:25am May 30, 2020 11:56am Nicol rincon NP Departed Physician/Provider Office Visit [facility] June 10, 2020 8:26am June 10, 2020 8:58am Jarret Herbert MD Departed Physician/Provider Office Visit [facility] June 28, 2020 3:47pm June 28, 2020 4:33pm Nicol Sebastian NP Departed Physician/Provider Office Visit [facility] July 01, 2020 9:04am July 01, 2020 11:04am Nicol Sebastian [facility], 2020 9:47am Kiersten Schulz DO Departed Emergency [facility] July 01, 2020 8:40pm July 02, 2020 12:20am null Departed Physician/Provider Office Visit [facility] July 04, 2020 11:14am July 04, 2020 12:47pm Nicol Sebastian NP Departed Physician/Provider Office Visit [facility] July 25, 2020 9:54am July 25, 2020 10:57am Nicol Sebastian [facility], 2020 9:45am Jaki Elias MD Departed Emergency [facility] August 03, 2020 1:29pm August 03, 2020 8:21pm null [address] [facility] August 09, 2020 6:19pm August 10, 2020 5:45am null Registered Referred [facility] August 14, 2020 9:29am Jarret Herbert MD Departed Physician/Provider Office Visit [facility] August 14, 2020 9:41am August 14, 2020 11:45am Patrick Herbert MD Departed Physician/Provider Office Visit [facility] August 20, 2020 9:00am August 20, 2020 9:20am Barrett Sparks MD Departed Physician/Provider Office Visit [facility] August 21, 2020 10:25am August 21, 2020 11:32am Jarret Herbert MD Registered Referred [facility] August 21, 2020 11:17am Jarret Herbert MD Departed Surgical Day Care [facility] August 22, 2020 6:20am August 22, 2020 10:05am Patrick Herbert MD Registered Outpatient [facility] August 22, 2020 8:00am Jarret Herbert MD Departed Physician/Provider Office Visit [facility] August 27, 2020 10:07am August 27, 2020 10:41am Jarret Herbert MD Departed Emergency [facility] August 30, 2020 6:50pm August 30, 2020 9:08pm null Departed Physician/Provider Office Visit [facility] Family Practice September 02, 2020 10:06am September 02, 2020 4:34pm Jose Kramer DO Departed Physician/Provider Office Visit [facility] September 03, 2020 9:28am September 03, 2020 11:05am Jarret Herbert MD Departed Physician/Provider Office Visit [facility] Women's Health September 05, 2020 11:10am September 05, 2020 11:48am Jarret Herbert MD Registered Referred [facility] September 05, 2020 11:47am Jarret Herbert MD Departed Emergency [facility] September 09, 2020 10:24pm September 10, 2020 1:21am null Departed Physician/Provider Office Visit [facility] September 11, 2020 11:04am September 11, 2020 11:59pm Jose Kramer DO Registered Clinical [facility] September 13, 2020 12:40pm Jose Kramer DO Registered Outpatient [facility] September 19, 2020 8:41pm Daniela Burnham Departed Emergency [facility] September 23, 2020 6:08pm September 23, 2020 9:16pm null Registered Outpatient [facility] September 24, 2020 7:47pm Daniela Brunham Departed Physician/Provider Office Visit [facility] September 25, 2020 3:11pm September 25, 2020 3:57pm Jose Kramer DO Recent Diagnosis Onset Date Anxiety Depression GERD (gastroesophageal reflux disease) Hepatomegaly HTN (hypertension) Morbid obesity PTSD (post-traumatic stress disorder) Metrorrhagia Anxiety Depression HTN (hypertension) Morbid obesity PTSD (post-traumatic stress disorder) Anxiety Nausea Abdominal pain Abdominal pain Abdominal pain Insomnia Anxiety Depression Morbid obesity Numbness and tingling of both legs Morbid obesity Elevated serum creatinine GERD (gastroesophageal reflux disease) PTSD (post-traumatic stress disorder) PTSD (post-traumatic stress disorder) Rash of finger Assessments Diagnosis Onset Date Res olution Status Anxiety chronic Depression chronic GERD (gastroesophageal reflux disease) chronic Hepatomegaly chronic HTN (hypertension) chronic Morbid obesity chronic PTSD (post-traumatic stress disorder) chronic Metrorrhagia acute Anxiety chronic Depression chronic HTN (hypertension) chronic Morbid obesity chronic PTSD (post-traumatic stress disorder) chronic Anxiety chronic Nausea acute Abdominal pain acute Abdominal pain acute Abdominal pain acute Insomnia acute Anxiety chronic Depression chronic Morbid obesity chronic Numbness and tingling of both legs acute Morbid obesity chronic Elevated serum creatinine acute GERD (gastroesophageal reflux disease) chronic PTSD (post-traumatic stress disorder) chronic PTSD (post-traumatic stress disorder) chronic Rash of finger chronic Family History Relationship Condition A ge at Onset Recorded Date/Time Not Specified Cerebrovascular accide nt (CVA) Unknown Not Specified Hernia Unk nown Functional Status Observation Response Neil e Recorded Functional Status Complete George May 18, 2020 1:30am Goals Goals may be documented in an alternate section. Immunizations No Immunization Information Available Mental Status Observation Response Neil e Recorded Cognitive Status Normal Cognition May 18, 2020 1:30am Impairments No impairments or barriers September 24, 2020 9:44am Medical Equipment No Medical Equipment Information available Insurance Providers Guarantor ANNA MARIE BELTRAN Address [address] [place] [address] Contact Info. Home Phone: Payer Policy Id Coverage Id Subscriber's Name Subscriber Id Effective Date Expiration Date [facility] [id number] ANNA MARIE BELTRAN [id number] [facility] [id number] ANNA MARIE BELTRAN [id number] [facility]ID 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 Increase diet and exercise. Referral to [facility] for chronic inflammation. Elevate legs. 26 [...] . July 26, 2020 for upper GI. [employer] rice, applesauce, bananas, and toast. Resolved. [...] that she has had counseling [place], but symptoms are worse at this time, d/t recent move to [place]. Will continue current meds and will refer to psych. 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 Taking [...] palpation without abnormal physical find ings. 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 [...] for Referral Referral Start Date Provider Provider Jorge ct Information Provider Address Jose Kramer DO Email: [email or web address] Phone: [address] [place] [id number] Jarret Herbert MD Email: [email or web address] Phone: [address] [place] [address] c diff - treated with PO vancomycin Trice dimas NP Email: [email or web address] Phone: [facility] [address] [facility] [address] Call for an appointment to be seen in the next 48 hours Jose Kramer DO Email: [email or web address] Phone: [address] [place] [phone] Call for an appointment for follow-up for Wednesday or Wednesday Jose Kramer DO Email: [email or web address] Phone: [address] [place], [place] [phone] R10.10 - Upper abdominal pain, unspecifi ed,K21.9 - Gastro-esophageal reflux disease without esophagitis September 25, 2020 allergy R21 - Rash and other nonspecific skin eruption September 11, 2020 Z[facility] Figueredo-[facility] [address] [address] R79.89 - Other specified abnormal findin gs of blood chemistry,N17.9 - Acute kidney failure, unspecified September 02, 2020 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 Future Procedures Future procedure information is unavailable [...] 24, 2020 9:44am Substance Use No Februar y 2020 9:44am Assigned Sex Female Vital Signs Vital Reading Result Ref erence Range Collection Date/Time Height 65 [in_i] February 20, 2020 11:44am Weight 266.25 [lb_av] February 20, 2020 11:44am Heart Rate 88 /min 60-100 February 20, 2020 11:44am Respiratory rate 16 /min 12-February 20, 2020 11:44am Oxygen saturation by Pulse [...] 05, 2020 3:02pm Respiratory rate 20 /min 12-March 05, 2020 3:02pm Oxygen saturation by Pulse [...] 13, 2020 10:41am Heart Rate 102 /min 60-March 13, 2020 10:41am Respiratory rate 16 /min [...] 2020 9:15am Heart Rate 107 /min 60-1 July 01, 2020 9:15am Respiratory rate 18 /min 08-15July 01, 2020 9:15am Oxygen saturation by Pulse [...] 02, 2020 12:30am Respiratory rate 20 /min 08-15July 02, 2020 12:30am Oxygen saturation by Pulse [...] by Pulse oximetry 98 % 95- 100 November 12th, 2020 11:19am BP Systolic 116 mm[Hg] July [...] 14, 2020 11:28am Respiratory rate 18 /min 12-August 14, 2020 11:28am Oxygen saturation by Pulse [...] 27, 2020 10:23am Respiratory rate 16 /min -August 27, 2020 10:23am Oxygen saturation by Pulse [...] 05, 2020 11:16am Respiratory rate 18 /min 12-September 05, 2020 11:16am Oxygen saturation by Pulse [...]
--- OUTSIDE RECORDS SUMMARY | 2020-10-18 09:41 | CCD | Continuity of Care Document ---
Author Author [facility] Organization [facility] Address [address] [place] [address] Phone Support Name Relationship Address Phone Jose Kramer PRS [address] [place] [address] FrancyRacheln Bianka PRS [address] [place] [address] John Islas PRS [address] [place] [address] [place] [address] Pola Meadows [place] [address] Pola Meadows PRS [address] [place] [address] Hiren Perez PRS [address] [place] [address] Nathalie Pace PRS [address] [place] [address] Verónica Sheriff PRS [address] [place] [address] Tad Menendez PRS [address] [place] [address] Amara Garcia PRS Unknown Unavailable Nicol Sebastian PRS [address] [place] [address] Darnell Herbert PRS [address] [place] [address] Kiersten Schulz PRS [address] [place] [address] [place] [address] AbiDaljit PRS [address] [place] [address] Niels Valdez PRS [address] [place] [address] Lynn Jain PRS [address] [place] [address] Barrett Sparks PRS [address] [place] [address] Dmitriy Peraza PRS [address] [place] [address] [place] [address] Sravani Balderrama PRS [address] [place] [address] Niels Edward PRS [address] [place] [address] Daniela Burnham PRS [address] [place] [address] Ramirez Lopez PRS [address] [place] [address] Allergies, Adverse Reactions, Alerts Allergen Type Severity Reaction Last Updated Verified Status cephalexin Allergy Moder ate Hives September 23, 2020 6:39pm Yes Active latex Allergy Moderate Rash September 23, 2020 6:39pm Yes Active ondansetron Allergy Mode rate Hives September 23, 2020 6:39pm Yes Active sulfamethoxazole Allergy Moderate Hives September 23, 2020 6:39pm Yes Active trimethoprim Allergy Mod erate Hives September 23, 2020 6:39pm Yes Active Medications Medication Status Dose Units [...] 03, 2020 10:36am September 11, 2020 4:44pm Nitrofurantoin Monohyd/M-Cryst (Macrobid) 100 mg capsu le Discontinued 100 MG PO Every 12 Hours 14 March 02, 2020 1:32pm March 11 10:57am [...] 30, 2020 8:57pm Ascorbic Acid (Vitamin C) Active 500 MG PO 2 Times Per Day August 30, 2020 8 :57pm with iron Ciprofloxacin Hcl Discontinued 500 MG [...] pharyngitis Resolved Procedures Procedure Date Performed Status Influenza-Like Illness (PCR) y 2020 completed September 23, 2020 com pleted Urine Culture September 23, 2020 active Escherichia coli Shiga Toxins EIA Fe [facility] 2020 active Salmonella/Shigella Screen September 23, 2020 active Campylobacter Culture September 23, 2020 active Escherichia coli 0157 Culture ua ry 2020 active Urine Culture September 09, [...] 182019 completed Gastrointestinal Tract Panel (PCR) S epmber 2019 completed Xray Chest 2 view PA/LAT [...] 23, 2020 8:05p m 10.2 10e3/uL 4.45-10.71 [facility], [address] [place] [address] 39326 White Blood Count September 09, 2020 11:50pm 10.6 10e3/uL 4.45-10.71 [facility], [address] [place] [address] 40519 White Blood Count September 05, 2020 12:03pm 10.3 10e3/uL 4.45-10.71 [facility], [address] [place] [address] 81884 White Blood Count August 30, 2020 8:15pm 11.3 10e3/uL 4.45-10.71 [facility], [address] [place] [address] 67156 White Blood Count August 09 7:35pm 9.9 10e3/uL 4.45-10.71 [facility], [address] [place] [address] White Blood Count August 14 0 9:31am 9.8 10e3/uL 4.45-10.71 [facility], [address] [place] [address] White Blood Count August 03 0 2:35pm 8.6 10e3/uL 4.45-10.71 [facility], [address] [place] [address] White Blood Count July 01, 2020 9:40p m 11.2 10e3/uL 4.45-10.71 [facility], [address] [place] [address] White Blood Count May 18 6:17am 9.3 10e3/uL 4.45-10.71 [facility], [address] [place] [address] 53143 White Blood Count March 25, 2020 8:11am 10.8 10e3/uL 4.45-10.71 [facility], [address] [place] [address] 98623 White Blood Count March 11, 2020 12:14pm 11.3 10e3/uL 4.45-10.71 [facility], [address] [place] [address] White Blood Count March 02, 2020 11:00am 10.3 10e3/uL 4.45-10.71 [facility], [address] [place] [address] 56830 White Blood Count February 26, 2020 10:02am 9.8 10e3/uL 4.45-10.71 [facility], [address] [place] [address] White Blood Count February 20, 2020 8:35am 8.8 10e3/uL 4.45-10.71 [facility], [address] [place] [address] 73034 Red Blood Count September 23, 2020 8:05pm 4.67 10e6/uL 4.20-5.40 [facility], [address] [place] [address] 20601 Red Blood Count September 09, 2020 11:50pm 4.49 10e6/uL 4.20-5.40 [facility], [address] [place] [address] 22775 Red Blood Count September 05, 2020 12:03pm 4.38 10e6/uL 4.20-5.40 [facility], [address] [place] [address] Red Blood Count August 30, 2020 8:15pm 4.26 10e6/uL 4.20-5.40 [facility], [address] [place] [address] Red Blood Count August 09, 2020 7:35pm 4.49 10e6/uL 4.20-5.40 [facility], [address] [place] [address] Red Blood Count August 14, 2020 9:31am 4.57 10e6/uL 4.20-5.40 [facility], [address] [place] [address] 35562 Red Blood Count August 03, 2020 2:35pm 4.47 10e6/uL 4.20-5.40 [facility], [address] [place] [address] 78983 Red Blood Count July 01, 2020 9:40pm 4.51 10e6/uL 4.20-5.40 [facility], [address] [place] [address] 64602 Red Blood Count May 18, 2020 6:17a m 4.10 10e6/uL 4.20-5.40 [facility], [address] [place] [address] 31586 Red Blood Count March 25, 2020 8:11am 4.25 10e6/uL 4.20-5.40 [facility], [address] [place] [address] 99018 Red Blood Count March 11, 2020 12:14pm 4.58 10e6/uL 4.20-5.40 [facility], [address] [place] [address] Red Blood Count March 02, 2020 11:00am 4.52 10e6/uL 4.20-5.40 [facility], [address] [place] [address] Red Blood Count February 26, 2020 10:02am 4.84 10e6/uL 4.20-5.40 [facility], [address] [place] [address] Red Blood Count February 20, 2020 8:35am 5.02 10e6/uL 4.20-5.40 [facility], [address] [place] [address] 82655 Hemoglobin September 23, 2020 8:05pm 11.9 g/dL 10.7-15.4 [facility], [address] [place] [address] 84965 Hemoglobin September 09, 2020 11:50pm 11.4 g/dL 10.7-15.4 [facility], [address] [place] [address] 99806 Hemoglobin September 05, 2020 12:03pm 10.8 g/dL 10.7-15.4 [facility], [address] [place] [address] 52391 Hemoglobin August 30, 2020 8:15pm 10.5 g/dL 10.7-15.4 [facility], [address] [place], [place] [id number] Hemoglobin August 09, 2020 7:35pm 11.4 g/dL 10.7-15.4 [facility], [address] [place] [address] 90650 Hemoglobin August 14, 2020 9:31am 11.4 g/dL 10.7-15.4 [facility], [address] [place] [address] 02086 Hemoglobin August 03, 2020 2:35pm 11.5 g/dL 10.7-15.4 [facility], [address] [place] [address] 37716 Hemoglobin July 01, 2020 9:40pm 11.8 g/dL 10.7-15.4 [facility], [address] [place] [address] 29198 Hemoglobin May 18, 2020 6:17am 10.9 g/dL 10.7-15.4 [facility], [address] [place] [address] 92666 Hemoglobin March 25, 2020 8:11am 11.5 g/dL 10.7-15.4 [facility], [address] [place] [address] 88740 Hemoglobin March 11, 2020 12:14pm 12.4 g/dL 10.7-15.4 [facility], [address] [place] [address] 61824 Hemoglobin March 02, 2020 11:00am 12.1 g/dL 10.7-15.4 [facility], [address] [place] [address] 28222 Hemoglobin February 26, 2020 10:02am 13.0 g/dL 10.7-15.4 [facility], [address] [place] [address] 26993 Hemoglobin February 20, 2020 8:35am 13.4 g/dL 10.7-15.4 [facility], [address] [place] [address] 85581 Hematocrit September 23, 2020 8:05pm 37.8 % 37-47 [facility], [address] [place] [address] 93122 Hematocrit September 09, 2020 11:50pm 35.9 % 37-47 [facility], [address] [place] [address] 78994 Hematocrit September 05, 2020 12:03pm 34.8 % 37-47 [facility], [address] [place] [address] 36676 Hematocrit August 30, 2020 8:15pm 34.4 % 37-47 [facility], [address] [place] [address] 98693 Hematocrit August 09, 2020 7:35pm 36.1 % 37-47 [facility], [address] [place] [address] 26043 Hematocrit August 14, 2020 9:31am 36.3 % 37-47 [facility], [address] [place] [address] 66446 Hematocrit August 03, 2020 2:35pm 36.1 % 37-47 [facility], [address] [place] [address] 38893 Hematocrit July 01, 2020 9:40pm 36.6 % 37-47 [facility], [address] [place] [address] 02199 Hematocrit May 18, 2020 6:17am 34.1 % 37-47 [facility], [address] [place] [address] 85746 Hematocrit March 25, 2020 8:11am 34.7 % 37-47 [facility], [address] [place] [address] 04157 Hematocrit March 11, 2020 12:14pm 37.2 % 37-47 [facility], [address] [place] [address] 96630 Hematocrit March 02, 2020 11:00am 36.9 % 37-47 [facility], [address] [place] [address] 13136 Hematocrit February 26, 2020 10:02am 39.4 % 37-47 [facility], [address] [place] [address] 40525 Hematocrit February 20, 2020 8:35am 41.0 % 37-47 [facility], [address] [place] [address] 83101 Mean Corpuscular Volume September 8:05pm 80.9 fl 80-96 [facility], [address] [place] [address] 09573 Mean Corpuscular Volume August 11:50pm 80.0 fl 80-[address] [place] [address] LABORATORY, [address] [place] [address] 79020 Mean Corpuscular Volume August 12:03pm 79.5 fl 80-[address] [place] [address] LABORATORY, [address] [place] [address] 28676 Mean Corpuscular Volume August 30, 2020 8:15pm 80.8 fl 80-[address] [place] [address] [facility]ORATORY, [address] [place] [address] 88364 Mean Corpuscular Volume August 09t h2019 7:35pm 80.4 fl 80-96 [facility], [address] [place] [address] 80446 Mean Corpuscular Volume July d2019 9:31am 79.4 fl 80-96 [facility], [address] [place] [address] 87764 Mean Corpuscular Volume July h2019 2:35pm 80.8 fl 80-[address] [place] [address] [facility]ORATORY, [address] [place] [address] 53462 Mean Corpuscular Volume June 9:40pm 81.2 fl 80-[address] [place] [address] [facility]ORY, [address] [place] [address] 28536 Mean Corpuscular Volume May 182019 6:17am 83.2 fl 80-[address] [place] [address] [facility]ATORY, [address] [place] [address] 82347 Mean Corpuscular Volume March 25, 2020 8:11am 81.6 fl 80-[address] [place] [address] [facility]ORY, [address] [place] [address] 70607 Mean Corpuscular Volume March 11 020 12:14pm 81.2 fl 80-[address] [place] [address] [facility]ORY, [address] [place] [address] 51948 Mean Corpuscular Volume March 02 020 11:00am 81.6 fl 80-[address] [place] [address] [facility]ORY, [address] [place] [address] 94276 Mean Corpuscular Volume February 25 10:02am 81.4 fl 80-[address] [place] [address] [facility], [address] [place] [address] 58297 Mean Corpuscular Volume February 19 020 8:35am 81.7 fl 80-[address] [place] [address] [facility]ORY, [address] [place] [address] 14536 Mean Corpuscular Hemoglobin September 23, 2020 8:05pm 25.5 pg 27-31 [facility], [address] [place] [address] 66760 Mean Corpuscular Hemoglobin September 09, 2020 11:50pm 25.4 pg 27-31 [facility], [address] [place] [address] 05691 Mean Corpuscular Hemoglobin September 05, 2020 12:03pm 24.7 pg 27-31 [facility], [address] [place] [address] 30753 Mean Corpuscular Hemoglobin August 30, 2020 8:15pm 24.6 pg 27-31 [facility], [address] [place] [address] 83898 Mean Corpuscular Hemoglobin August 09, 2020 7:35pm 25.4 pg 27-31 [facility], [address] [place] [address] 20245 Mean Corpuscular Hemoglobin August 14, 2020 9:31am 24.9 pg 27-31 [facility], [address] [place] [address] 16854 Mean Corpuscular Hemoglobin August 03, 2020 2:35pm 25.7 pg 27-31 [facility], [address] [place] [address] 22129 Mean Corpuscular Hemoglobin July 01, 2020 9:40pm 26.2 pg 27-31 [facility], [address] [place] [address] 33256 Mean Corpuscular Hemoglobin 2019 6:17am 26.6 pg 27-31 [facility], [address] [place] [address] 09162 Mean Corpuscular Hemoglobin March 252019 8:11am 27.1 pg 27-31 [facility], [address] [place] [address] 94716 Mean Corpuscular Hemoglobin February 202019 12:14pm 27.1 pg 27-31 [facility], [address] [place] [address] 56532 Mean Corpuscular Hemoglobin February h2019 11:00am 26.8 pg 27-31 [facility], [address] [place] [address] 01120 Mean Corpuscular Hemoglobin February 10:02am 26.9 pg 27-31 [facility], [address] [place] [address] 08443 Mean Corpuscular Hemoglobin January 8:35am 26.7 pg 27-31 [facility], [address] [place] [address] 36603 Mean Corpuscular Hemoglobin Concent September 23, 2020 8:05pm 31.5 g/dl [address] [place] [address] [facility]ATORY, [address] [place] [address] 19392 Mean Corpuscular Hemoglobin Concent September 09, 2020 11:50pm 31.8 g/dl [address] [place] [address] [facility]ORATORY, [address] [place] [address] 64208 Mean Corpuscular Hemoglobin Concent September 05, 2020 12:03pm 31.0 g/dl [address] [place] [address] [facility]ATORY, [address] [place] [address] 86276 Mean Corpuscular Hemoglobin Concent August 30, 2020 8:15pm 30.5 g/dl [address] [place] [address] [facility]ATORY, [address] [place] [address] 94132 Mean Corpuscular Hemoglobin Concent August 09, 2020 7:35pm 31.6 g/dl [address] [place] [address] [facility]ORY, [address] [place] [address] 90125 Mean Corpuscular Hemoglobin Concent August 14, 2020 9:31am 31.4 g/dl [address] [place] [address] [facility]ORY, [address] [place] [address] 36330 Mean Corpuscular Hemoglobin Concent August 03, 2020 2:35pm 31.9 g/dl [address] [place] [address] [facility]ORY, [address] [place] [address] 97187 Mean Corpuscular Hemoglobin Concent July 01, 2020 9:40pm 32.2 g/dl [address] [place] [address] [facility]ATORY, [address] [place] [address] 26461 Mean Corpuscular Hemoglobin Concent May 18, 2020 6:17am 32.0 g/dl [address] [place] [address] [facility]ORY, [address] [place] [address] 66372 Mean Corpuscular Hemoglobin Concent March 25, 2020 8:11am 33.1 g/dl [address] [place] [address] [facility]ATORY, [address] [place] [address] 76499 Mean Corpuscular Hemoglobin Concent March 11, 2020 12:14pm 33.3 g/dl [address] [place] [address] [facility]ORATORY, [address] [place] [address] 71305 Mean Corpuscular Hemoglobin Concent March 02, 2020 11:00am 32.8 g/dl [address] [place] [address] [facility]ORATORY, [address] [place] [address] 95280 Mean Corpuscular Hemoglobin Concent February 26, 2020 10:02am 33.0 g/dl [address] [facility], [address] [place] [address] 76938 Mean Corpuscular Hemoglobin Concent February 20, 2020 8:35am 32.7 g/dl [address] [facility], [address] [place] [address] 64817 Red Cell Distribution Width September 23, 2020 8:05pm 16 % 11-15 [facility], [address] [place] [address] 81302 Red Cell Distribution Width September 09, 2020 11:50pm 16 % 11-15 [facility], [address] [place] [address] 42589 Red Cell Distribution Width September 05, 2020 12:03pm 16 % 11-15 [facility], [address] [place] [address] 32177 Red Cell Distribution Width August 30, 2020 8:15pm 15 % 11-15 [facility], [address] [place] [address] 74215 Red Cell Distribution Width August 09, 2020 7:35pm 14 % 11-15 [facility], [address] [place] [address] 66847 Red Cell Distribution Width August 14, 2020 9:31am 15 % 11-15 [facility], [address] [place] [address] 03926 Red Cell Distribution Width August 03, 2020 2:35pm 14 % 11-15 [facility], [address] [place] [address] 28436 Red Cell Distribution Width July 01, 2020 9:40pm 14 % 11-15 [facility], [address] [place] [address] 24151 Red Cell Distribution Width 2019 6:17am 14 % 11-15 [facility], [address] [place] [address] 68485 Red Cell Distribution Width March 252019 8:11am 15 % 11-15 [facility], [address] [place] [address] 09767 Red Cell Distribution Width February 12:14pm 15 % 11-15 [facility], [address] [place] [address] 20112 Red Cell Distribution Width February 11:00am 14 % 11-15 [facility], [address] [place] [address] 77041 Red Cell Distribution Width February 10:02am 14 % 11-15 [facility], [address] [place] [address] Red Cell Distribution Width January 8:35am 15 % 11-15 [facility], [address] [place] [address] 75176 Platelet Count September 23, 2020 8:05pm 404 10e3/ul 130-472 [facility], [address] [place] [address] 76444 Platelet Count September 09, 2020 11:50pm 392 10e3/ul 130-472 [facility], [address] [place] [address] 86917 Platelet Count September 05, 2020 12:03pm 417 10e3/ul 130-472 [facility], [address] [place] [address] 29843 Platelet Count August 30, 2020 8:15pm 422 10e3/ul 130-472 [facility], [address] [place] [address] 58028 Platelet Count August 09, 2020 7:35pm 423 10e3/ul 130-472 [facility], [address] [place] [address] 49539 Platelet Count August 14, 2020 9:31am 429 10e3/ul 130-472 [facility], [address] [place] [address] 86623 Platelet Count August 03, 2020 2:35pm 372 10e3/ul 130-472 [facility], [address] [place] [address] 51124 Platelet Count July 01, 2020 9:40pm 392 10e3/ul 130-472 [facility], [address] [place] [address] 10525 Platelet Count May 18, 2020 6:17am 332 10e3/ul 130-472 [facility], [address] [place] [address] 29344 Platelet Count March 25, 2020 8:11am 395 10e3/ul 130-472 [facility], [address] [place] [address] 34541 Platelet Count March 11, 2020 12:14pm 460 10e3/ul 130-472 [facility], [address] [place] [address] 44460 Platelet Count March 02, 2020 11:00am 410 10e3/ul 130-472 [facility], [address] [place] [address] 89844 Platelet Count February 26, 2020 10:02am 436 10e3/ul 130-472 [facility], [address] [place] [address] 81308 Platelet Count February 20, 2020 8:35am 479 10e3/ul 130-472 [facility], [address] [place] [address] Mean Platelet Volume September 23, 021 8:05pm 9.5 fl 9.1-13.1 [facility], [address] [place] [address] Mean Platelet Volume September 09, 2 021 11:50pm 8.6 fl 9.1-13.1 [facility], [address] [place] [address] Mean Platelet Volume September 05, 2 021 12:03pm 8.6 fl 9.1-13.1 [facility], [address] [place] [address] Mean Platelet Volume August 30 8:15pm 8.7 fl 9.1-13.1 [facility], [address] [place] [address] Mean Platelet Volume August 09, 2020 7:35pm 8.9 fl 9.1-13.1 [facility], [address] [place] [address] Mean Platelet Volume August 14, 2020 9:31am 8.9 fl 9.1-13.1 [facility], [address] [place] [address] Mean Platelet Volume August 03, 2020 2:35pm 9.0 fl 9.1-13.1 [facility], [address] [place] [address] Mean Platelet Volume July 01, 020 9:40pm 8.6 fl 9.1-13.1 [facility], [address] [place] [address] Mean Platelet Volume May 18, 2020 6:17am 8.6 fl 9.1-13.1 [facility], [address] [place] [id number] Mean Platelet Volume March 25 0 8:11am 8.3 fl 9.1-13.1 [facility], [address] [place] [address] Mean Platelet Volume March 11, 2020 12:14pm 8.4 fl 9.1-13.1 [facility], [address] [place] [address] Mean Platelet Volume March 02, 2020 11:00am 8.6 fl 9.1-13.1 [facility], [address] [place] [id number] Mean Platelet Volume February 26, 2020 10:02a m 8.7 fl 9.1-13.1 [facility], [address] [place] [id number] Mean Platelet Volume February 20, 2020 8:35a m 8.7 fl 9.1-13.1 [facility], [address] [place] [id number] Neutrophils (%) (Auto) September 23, 2020 8:05pm 67.0 % [address] [place] [address] LABORATORY, [address] [place] [id number] Neutrophils (%) (Auto) September 09, 2020 11:50pm 66.3 % [address] [place] [address] LABORATORY, [address] [place] [id number] Neutrophils (%) (Auto) September 05, 2020 12:03pm 74.5 % [address] [place] [address] LABORATORY, [address] [place] [id number] Neutrophils (%) (Auto) August 30, 2020 8:15pm 69.3 % [address] [place] [address] LABORATORY, [address] [place] [id number] Neutrophils (%) (Auto) July 7:35pm 71.3 % [address] [place] [address] LABORATORY, [address] [place] [address] 62848 Neutrophils (%) (Auto) July 9:31am 63.7 % [address] [place] [address] LABORATORY, [address] [place] [address] 97621 Neutrophils (%) (Auto) July 2:35pm 68.8 % [address] [place] [address] LABORATORY, [address] [place] [address] 46206 Neutrophils (%) (Auto) July 01, 2020 9:40pm 66.3 % [address] [place] [address] LABORATORY, [address] [place] [address] 39478 Neutrophils (%) (Auto) April 6:17am 66.1 % [address] [place] [address] LABORATORY, [address] [place] [address] 70268 Neutrophils (%) (Auto) March 25 8:11am 58.4 % [address] [place] [address] LABORATORY, [address] [place] [address] 07811 Neutrophils (%) (Auto) March 11 12:14pm 72.2 % [address] [place] [address] LABORATORY, [address] [place] [address] 94839 Neutrophils (%) (Auto) March 02 11:00am 65.4 % [address] [place] [address] LABORATORY, [address] [place] [address] 73142 Neutrophils (%) (Auto) February 25 0 10:02am 62.6 % [address] [place] [address] LABORATORY, [address] [place] [address] 90642 Neutrophils (%) (Auto) February 19 8:35am 62.4 % [address] [place] [address] LABORATORY, [address] [place] [address] 07099 Absolute Neutrophil September 23 8:05pm 6.8 # 1.7-7.6 [facility], [address] [place] [address] 40067 Absolute Neutrophil September 09 11:50pm 7.0 # 1.7-7.6 [facility], [address] [place] [address] 19068 Absolute Neutrophil September 05 12:03pm 7.7 # 1.7-7.6 [facility], [address] [place] [address] 05993 Absolute Neutrophil August 30 8:15pm 7.8 # 1.7-7.6 [facility], [address] [place] [address] 14963 Absolute Neutrophil August 09, 020 7:35pm 7.0 # 1.7-7.6 [facility], [address] [place] [address] 99961 Absolute Neutrophil August 14, 2 020 9:31am 6.2 # 1.7-7.6 [facility], [address] [place] [address] 10429 Absolute Neutrophil August 03, 2 020 2:35pm 5.9 # 1.7-7.6 [facility], [address] [place] [address] Absolute Neutrophil July 01 9:40pm 7.5 # 1.7-7.6 [facility], [address] [place] [address] 51744 Absolute Neutrophil May 18, 2020 6:17am 6.1 # 1.7-7.6 [facility], [address] [place] [address] 84786 Absolute Neutrophil March 25, 2020 8:11a m 6.3 # 1.7-7.6 [facility], [address] [place] [address] 79611 Absolute Neutrophil March 11, 2020 12:14p m 8.1 # 1.7-7.6 [facility], [address] [place] [address] 30340 Absolute Neutrophil March 02, 2020 11:00a m 6.7 # 1.7-7.6 [facility], [address] [place] [address] 50811 Absolute Neutrophil February 26, 2020 10:02am 6.1 # 1.7-7.6 [facility], [address] [place] [address] 77711 Absolute Neutrophil February 20, 2020 8:35am 5.5 # 1.7-7.6 [facility], [address] [place] [address] 01242 Lymphocytes (%) (Auto) September 23, 2020 8:05pm 23.3 % 1446 [facility], [address] [place] [address] 77604 Lymphocytes (%) (Auto) September 09, 2020 11:50pm 23.0 % [address] LABORATORY, [address] [place] [address] 75917 Lymphocytes (%) (Auto) September 05, 2020 12:03pm 17.6 % [address] LABORATORY, [address] [place] [address] 18078 Lymphocytes (%) (Auto) August 30, 2020 8:15pm 20.7 % 1446 [facility], [address] [place] [address] 39313 Lymphocytes (%) (Auto) July 7:35pm 19.4 % 1446 [facility], [address] [place] [address] 99497 Lymphocytes (%) (Auto) July 9:31am 25.9 % [address] LABORATORY, [address] [place] [address] 68577 Lymphocytes (%) (Auto) July 2:35pm 20.2 % 14-46 [facility], [address] [place] [address] 15894 Lymphocytes (%) (Auto) July 01, 2020 9:40pm 21.4 % 1446 [facility], [address] [place] [address] 09266 Lymphocytes (%) (Auto) April 6:17am 22.8 % 1446 [facility], [address] [place] [address] 80825 Lymphocytes (%) (Auto) March 25 8:11am 30.4 % 14-46 [facility], [address] [place] [address] 37063 Lymphocytes (%) (Auto) March 11 12:14pm 19.0 % 14-46 [facility], [address] [place] [address] 44962 Lymphocytes (%) (Auto) March 02 11:00am 23.6 % 14-46 [facility], [address] [place] [address] 76027 Lymphocytes (%) (Auto) February 25 0 10:02am 25.4 % 14-46 [facility], [address] [place] [address] 49876 Lymphocytes (%) (Auto) February 19 8:35am 26.5 % 14-46 [facility], [address] [place] [address] 22176 Lymphocytes # (Auto) September 23 8:05pm 2.4 # 0.6-4.6 [facility], [address] [place] [address] 54972 Lymphocytes # (Auto) September 09, 11:50pm 2.4 # 0.6-4.6 [facility], [address] [place] [address] 09067 Lymphocytes # (Auto) September 05, 021 12:03pm 1.8 # 0.6-4.6 [facility], [address] [place] [address] 04979 Lymphocytes # (Auto) August 30 8:15pm 2.3 # 0.6-4.6 [facility], [address] [place] [address] 74704 Lymphocytes # (Auto) August 09, 2020 7:35pm 1.9 # 0.6-4.6 [facility], [address] [place] [address] 23737 Lymphocytes # (Auto) August 14, 2020 9:31am 2.5 # 0.6-4.6 [facility], [address] [place] [address] 51557 Lymphocytes # (Auto) August 03, 2020 2:35pm 1.7 # 0.6-4.6 [facility], [address] [place] [address] 07451 Lymphocytes # (Auto) July 01, 020 9:40pm 2.4 # 0.6-4.6 [facility], [address] [place] [address] 32216 Lymphocytes # (Auto) May 18, 2020 6:17am 2.1 # 0.6-4.6 [facility], [address] [place] [address] 44702 Lymphocytes # (Auto) March 25 0 8:11am 3.3 # 0.6-4.6 [facility], [address] [place] [address] 81309 Lymphocytes # (Auto) March 11, 2020 12:14pm 2.1 # 0.6-4.6 [facility], [address] [place] [address] 49386 Lymphocytes # (Auto) March 02, 2020 11:00am 2.4 # 0.6-4.6 [facility], [address] [place] [address] 84239 Lymphocytes # (Auto) February 26, 2020 10:02a m 2.5 # 0.6-4.6 [facility], [address] [place] [address] 14428 Lymphocytes # (Auto) February 20, 2020 8:35a m 2.3 # 0.6-4.6 [facility], [address] [place] [address] 60802 Monocytes (%) (Auto) September 23, 021 8:05pm 6.9 % 4-12 [facility], [address] [place] [address] 04912 Monocytes (%) (Auto) September 09, 021 11:50pm 7.1 % 4-12 [facility], [address] [place] [address] 54865 Monocytes (%) (Auto) September 05, 2 021 12:03pm 5.4 % 4-12 [facility], [address] [place] [address] 08746 Monocytes (%) (Auto) August 30 8:15pm 6.8 % 4-12 [facility], [address] [place] [address] 34696 Monocytes (%) (Auto) August 09, 2020 7:35pm 7.0 % 4-12 [facility], [address] [place] [address] 64677 Monocytes (%) (Auto) August 14, 2020 9:31am 6.9 % 4-12 [facility], [address] [place] [address] 16094 Monocytes (%) (Auto) August 03, 2020 2:35pm 8.3 % 4-12 [facility], [address] [place] [address] 81751 Monocytes (%) (Auto) July 01 9:40pm 8.9 % 4-12 [facility], [address] [place] [address] 71045 Monocytes (%) (Auto) May 18, 2020 6:17am 8.7 % 412 [facility], [address] [place] [address] 70612 Monocytes (%) (Auto) March 25 0 8:11am 7.7 % [address] LABORATORY, [address] [place] [address] 05903 Monocytes (%) (Auto) March 11, 2020 12:14pm 5.5 % 4-12 [facility], [address] [place] [address] 66991 Monocytes (%) (Auto) March 02, 2020 11:00am 7.8 % [address] LABORATORY, [address] [place] [address] 58473 Monocytes (%) (Auto) February 26, 2020 10:02a m 8.2 % [address] LABORATORY, [address] [place] [address] 56976 Monocytes (%) (Auto) February 20, 2020 8:35a m 8.0 % 12 [facility], [address] [place] [address] 37894 Monocytes # September 23, 2020 8:05pm 0.7 # 0.2-1.2 [facility], [address] [place] [address] 26636 Monocytes # September 09, 2020 11:50pm 0.8 # 0.2-1.2 [facility], [address] [place] [address] 94239 Monocytes # September 05, 2020 12:03pm 0.6 # 0.2-1.2 [facility], [address] [place] [address] 05998 Monocytes # August 30, 2020 8:15pm 0.8 # 0.2-1.2 [facility], [address] [place] [address] 61107 Monocytes # August 09, 2020 7:35pm 0.7 # 0.2-1.2 [facility], [address] [place] [address] 73301 Monocytes # August 14, 2020 9:31am 0.7 # 0.2-1.2 [facility], [address] [place] [address] 17971 Monocytes # August 03, 2020 2:35pm 0.7 # 0.2-1.2 [facility]AT[facility], [address] [place] [address] 37352 Monocytes # July 01, 2020 9:40pm 1.0 # 0.2-1.2 [facility], [address] [place] [address] 98087 Monocytes # May 18, 2020 6:17am 0.8 # 0.2-1.2 [facility], [address] [place] [address] 67182 Monocytes # March 25, 2020 8:11am 0.8 # 0.2-1.2 [facility], [address] [place] [address] 93192 Monocytes # March 11, 2020 12:14pm 0.6 # 0.2-1.2 [facility], [address] [place] [address] 70382 Monocytes # March 02, 2020 11:00am 0.8 # 0.2-1.2 [facility], [address] [place] [address] 19677 Monocytes # February 26, 2020 10:02am 0.8 # 0.2-1.2 [facility], [address] [place] [address] 95005 Monocytes # February 20, 2020 8:35am 0.7 # 0.2-1.2 [facility], [address] [place] [address] 34784 Eosinophils (%) (Auto) September 23, 2020 8:05pm 2.2 % 0-7 [facility], [address] [place] [address] 66076 Eosinophils (%) (Auto) September 09, 2020 11:50pm 2.9 % 0-7 [facility], [address] [place] [address] 11585 Eosinophils (%) (Auto) September 05, 2020 12:03pm 1.8 % 0-7 [facility], [address] [place] [address] 72136 Eosinophils (%) (Auto) August 30, 2020 8:15pm 2.4 % 0-7 [facility], [address] [place] [address] 13869 Eosinophils (%) (Auto) July 7:35pm 1.8 % 0-7 [facility], [address] [place] [address] 78416 Eosinophils (%) (Auto) July 9:31am 3.0 % 0-7 [facility], [address] [place] [address] 79854 Eosinophils (%) (Auto) July 2:35pm 2.2 % 0-7 [facility], [address] [place] [address] 67522 Eosinophils (%) (Auto) July 01, 2020 9:40pm 2.7 % 0-7 [facility], [address] [place] [address] 64899 Eosinophils (%) (Auto) April 6:17am 1.9 % 0-7 [facility], [address] [place] [address] 11963 Eosinophils (%) (Auto) March 25 8:11am 2.7 % 0-7 [facility], [address] [place] [address] 58589 Eosinophils (%) (Auto) March 11 12:14pm 2.5 % 0-7 [facility], [address] [place] [address] 65442 Eosinophils (%) (Auto) March 02 11:00am 2.4 % 0-7 [facility], [address] [place] [address] 66647 Eosinophils (%) (Auto) February 25 0 10:02am 3.1 % 0-7 [facility], [address] [place] [address] 12747 Eosinophils (%) (Auto) February 19 8:35am 2.6 % 0-7 [facility], [address] [place] [address] 57875 Absolute Eosinophils (CBC) September 23, 2020 8:05pm 0.2 # 0.0-0.5 [facility], [address] [place] [address] 30179 Absolute Eosinophils (CBC) August 232020 11:50pm 0.3 # 0.0-0.5 [facility], [address] [place] [address] 39923 Absolute Eosinophils (CBC) August 232020 12:03pm 0.2 # 0.0-0.5 [facility], [address] [place] [address] 71067 Absolute Eosinophils (CBC) August 302020 8:15pm 0.3 # 0.0-0.5 [facility], [address] [place] [address] 18636 Absolute Eosinophils (CBC) August 09, 2020 7:35pm 0.2 # 0.0-0.5 [facility], [address] [place] [address] 02380 Absolute Eosinophils (CBC) August 14, 2020 9:31am 0.3 # 0.0-0.5 [facility], [address] [place] [address] Absolute Eosinophils (CBC) August 03, 2020 2:35pm 0.2 # 0.0-0.5 [facility], [address] [place] [address] 20487 Absolute Eosinophils (CBC) July 01, 2020 9:40pm 0.3 # 0.0-0.5 [facility], [address] [place] [address] Absolute Eosinophils (CBC) May 18, 2020 6:17am 0.2 # 0.0-0.5 [facility], [address] [place] [address] Absolute Eosinophils (CBC) March 8:11am 0.3 # 0.0-0.5 [facility], [address] [place] [address] Absolute Eosinophils (CBC) February 12:14pm 0.3 # 0.0-0.5 [facility], [address] [place] [address] Absolute Eosinophils (CBC) February 11:00am 0.3 # 0.0-0.5 [facility], [address] [place] [address] Absolute Eosinophils (CBC) February 26, 2020 10:02am 0.3 # 0.0-0.5 [facility], [address] [place] [address] 59996 Absolute Eosinophils (CBC) January 8:35am 0.2 # 0.0-0.5 [facility], [address] [place] [address] 78256 Basophils (%) (Auto) September 23 021 8:05pm 0.4 % 0.4-1.3 [facility], [address] [place] [address] 45990 Basophils (%) (Auto) September 09 11:50pm 0.3 % 0.4-1.3 [facility], [address] [place] [address] 57166 Basophils (%) (Auto) September 05 021 12:03pm 0.4 % 0.4-1.3 [facility], [address] [place] [address] 17733 Basophils (%) (Auto) August 30 8:15pm 0.4 % 0.4-1.3 [facility], [address] [place] [address] 54789 Basophils (%) (Auto) August 09, 2020 7:35pm 0.3 % 0.4-1.3 [facility], [address] [place] [address] 32842 Basophils (%) (Auto) August 14, 2020 9:31am 0.3 % 0.4-1.3 [facility], [address] [place] [address] Basophils (%) (Auto) August 03, 2020 2:35pm 0.3 % 0.4-1.3 [facility], [address] [place] [address] 27973 Basophils (%) (Auto) July 01 020 9:40pm 0.4 % 0.4-1.3 [facility], [address] [place] [address] 10024 Basophils (%) (Auto) May 18, 2020 6:17am 0.3 % 0.4-1.3 [facility], [address] [place] [address] 94952 Basophils (%) (Auto) March 25 0 8:11am 0.5 % 0.4-1.3 [facility], [address] [place] [address] 81925 Basophils (%) (Auto) March 11, 2020 12:14pm 0.4 % 0.4-1.3 [facility], [address] [place] [address] 07574 Basophils (%) (Auto) March 02, 2020 11:00am 0.5 % 0.4-1.3 [facility], [address] [place] [address] 54955 Basophils (%) (Auto) February 26, 2020 10:02a m 0.4 % 0.4-1.3 [facility], [address] [place] [address] 01606 Basophils (%) (Auto) February 20, 2020 8:35a m 0.3 % 0.4-1.3 [facility], [address] [place] [address] 20152 Absolute Basophils (CBC) September 8:05pm 0.0 # 0.0-0.2 [facility], [address] [place] [address] 95557 Absolute Basophils (CBC) August 18t h2020 11:50pm 0.0 # 0.0-0.2 [facility], [address] [place] [address] Absolute Basophils (CBC) August 12:03pm 0.0 # 0.0-0.2 [facility], [address] [place] [address] 41624 Absolute Basophils (CBC) August 8:15pm 0.1 # 0.0-0.2 [facility], [address] [place] [address] Absolute Basophils (CBC) August 092019 7:35pm 0.0 # 0.0-0.2 [facility], [address] [place] [address] Absolute Basophils (CBC) August 142019 9:31am 0.0 # 0.0-0.2 [facility], [address] [place] [address] Absolute Basophils (CBC) August 032019 2:35pm 0.0 # 0.0-0.2 [facility], [address] [place] [address] Absolute Basophils (CBC) June 9:40pm 0.0 # 0.0-0.2 [facility], [address] [place] [address] Absolute Basophils (CBC) April 242019 6:17am 0.0 # 0.0-0.2 [facility], [address] [place] [address] 75578 Absolute Basophils (CBC) March 25, 2020 8:11am 0.1 # 0.0-0.2 [facility], [address] [place] [address] Absolute Basophils (CBC) March 11, 2020 12:14pm 0.0 # 0.0-0.2 [facility], [address] [place] [address] 43412 Absolute Basophils (CBC) March 02, 2020 11:00am 0.1 # 0.0-0.2 [facility], [address] [place] [address] 61348 Absolute Basophils (CBC) February 25 10:02am 0.0 # 0.0-0.2 [facility], [address] [place] [address] 19273 Absolute Basophils (CBC) February 20, 2020 8:35am 0.0 # 0.0-0.2 [facility], [address] [place] [address] 53704 Immature Granulocyte % (Auto) Februa ry 2020 8:05pm 0.2 % 0-2 [facility], [address] [place] [address] 86186 Immature Granulocyte % (Auto) Januar y 2020 11:50pm 0.4 % 0-2 [facility], [address] [place] [address] 95235 Immature Granulocyte % (Auto) Januar y 2020 12:03pm 0.3 % 0-2 [facility], [address] [place] [address] 28628 Immature Granulocyte % (Auto) Januar y 2020 8:15pm 0.4 % 0-2 [facility], [address] [place] [address] 98548 Immature Granulocyte % (Auto) Decemb er 2019 7:35pm 0.2 % 0-2 [facility], [address] [place] [address] [id number] Immature Granulocyte % (Auto) Decemb er 2019 9:31am 0.2 % 0-2 [facility], [address] [place] [address] [id number] Immature Granulocyte % (Auto) [facility]:35[facility] 0.2 % 0-2 [facility], [address] [place] [address] [id number] Immature Granulocyte % (Auto) [facility] er 2019 9:40pm 0.3 % 0-2 [facility], [address] [place] [address] [id number] Immature Granulocyte % (Auto) 2019 6:17am 0.2 % 0-2 [facility], [address] [place] [address] [id number] Immature Granulocyte % (Auto) March 25, 2020 8:11am 0.3 % 0-2 [facility], [address] [place] [address] 08595 Immature Granulocyte % (Auto) February 212019 12:14pm 0.4 % 0-2 [facility], [address] [place] [address] [id number] Immature Granulocyte % (Auto) February 202019 11:00am 0.3 % 0-2 [facility], [address] [place] [address] [id number] Immature Granulocyte % (Auto) February 252019 10:02am 0.3 % 0-2 [facility], [address] [place] [address] Immature Granulocyte % (Auto) January 232019 8:35am 0.2 % 0-2 [facility], [address] [place] [address] Absolute Immature Granulocyte (auto September 23, 2020 8:05pm 0.0 # 0-0.1 [facility], [address] [place] [address] Absolute Immature Granulocyte (auto September 09, 2020 11:50pm 0.0 # 0-0.1 [facility], [address] [place] [address] Absolute Immature Granulocyte (auto September 05, 2020 12:03pm 0.0 # 0-0.1 [facility], [address] [place] [address] Absolute Immature Granulocyte (auto August 30, 2020 8:15pm 0.0 # 0-0.1 [facility], [address] [place] [address] Absolute Immature Granulocyte (auto August 09, 2020 7:35pm 0.0 # 0-0.1 [facility], [address] [place] [address] Absolute Immature Granulocyte (auto August 14, 2020 9:31am 0.0 # 0-0.1 [facility], [address] [place] [address] Absolute Immature Granulocyte (auto August 03, 2020 2:35pm 0.0 # 0-0.1 [facility], [address] [place] [address] Absolute Immature Granulocyte (auto July 01, 2020 9:40pm 0.0 # 0-0.1 [facility], [address] [place] [address] Absolute Immature Granulocyte (auto May 18, 2020 6:17am 0.0 # 0-0.1 [facility], [address] [place] [address] Absolute Immature Granulocyte (auto March 25, 2020 8:11am 0.0 # 0-0.1 [facility], [address] [place] [address] Absolute Immature Granulocyte (auto March 11, 2020 12:14pm 0.0 # 0-0.1 [facility], [address] [place] [address] Absolute Immature Granulocyte (auto March 02, 2020 11:00am 0.0 # 0-0.1 [facility], [address] [place] [id number] Absolute Immature Granulocyte (auto February 26, 2020 10:02am 0.0 # 0-0.1 [facility], [address] [place] [address] Absolute Immature Granulocyte (auto February 20, 2020 8:35am 0.0 # 0-0.1 [facility], [address] [place] [address] [id number] Add Manual Differential September 8:05pm No [facility], [address] [place] [address] Add Manual Differential August 11:50pm No [facility], [address] [place] [address] [id number] Add Manual Differential August 12:03pm No [facility], [address] [place] [address] [id number] Add Manual Differential August 30, 2020 8:15pm No [facility], [address] [place] [address] [id number] Add Manual Differential July 7:35pm No [facility], [address] [place] [address] [id number] Add Manual Differential July 9:31am No [facility], [address] [place] [address] 76181 Add Manual Differential July 2:35pm No [facility], [address] [place] [address] 85757 Add Manual Differential June 9:40pm No [facility], [address] [place] [address] 83503 Add Manual Differential May 182019 6:17am No [facility], [address] [place] [address] 47437 Add Manual Differential March 25, 2020 8:11am No [facility], [address] [place] [address] 88217 Add Manual Differential March 11 12:14pm No [facility], [address] [place] [address] 76518 Add Manual Differential March 02 11:00am No [facility], [address] [place] [address] 05898 Add Manual Differential February 25 10:02am No [facility], [address] [place] [address] 22547 Add Manual Differential February 19 8:35am No [facility], [address] [place] [address] 72740 Differential Total Cells Counted Sep 2019 7:20pm 100 [facility], [address] [place] [address] 11626 Neutrophils (Manual) May 17, 2020 7:20pm 77 % 41-77 [facility], [address] [place] [address] 72729 Band Neutrophils May 17 0 7:20pm 3 % 0-5 [facility], [address] [place] [address] 61444 Lymphocytes (Manual) May 17, 2020 7:20pm 17 % 14-46 [facility], [address] [place] [address] 54698 Monocytes (Manual) May 17 020 7:20pm 3 % 4-12 [facility], [address] [place] [address] 71360 Platelet Estimate May 17 7:20pm Appears normal NORMAL [facility], [address] [place] [address] 46422 RBC Morphology 2 May 17 0 7:20pm Appears normal NORMAL [facility], [address] [place] [address] 09244 Urine Color May 18, 2020 12:15am Yellow [facility], [address] [place] [address] 77646 Urine Color February 20, 2020 8:40am Yellow [facility], [address] [place] [address] 93528 Urine Color September 23, 2020 7:46pm Yellow [facility], [address] [place] [address] 23944 Urine Color September 09, 2020 10:50pm Brown [facility], [address] [place] [address] 85378 Urine Color August 30, 2020 8:15pm [place] [facility], [address] [place] [address] 43227 Urine Color August 09, 2020 8:06pm Yellow [facility], [address] [place] [address] 05511 Urine Color August 03, 2020 2:50pm Yellow [facility], [address] [place] [address] 42294 Urine Color July 01, 2020 9:30pm Yellow [facility], [address] [place] [address] 89350 Urine Color March 25, 2020 8:05am Yellow [facility], [address] [place] [address] 55151 Urine Color March 11, 2020 11:00am Yellow [facility], [address] [place] [address] 57798 Urine Color March 05, 2020 2:29pm Yellow [facility], [address] [place] [address] 68594 Urine Color March 02, 2020 10:48am Yellow [facility], [address] [place] [address] 32320 Urine Appearance September 23, 2020 7:46pm Clear [facility], [address] [place] [address] 41589 Urine Appearance September 09, 2020 10:50p m Cloudy [facility], [address] [place] [address] 87712 Urine Appearance August 30, 2020 8:15pm Turbid CLE[facility], [address] [place] [address] 00912 Urine Appearance August 09, 2020 8:06p m Clear [facility], [address] [place] [address] 40502 Urine Appearance August 03, 2020 2:50p m Clear [facility], [address] [place] [address] 76408 Urine Appearance July 01, 2020 9:30pm Cloudy [facility], [address] [place] [address] 02477 Urine Appearance May 18 12:15am Clear [facility], [address] [place] [address] 63195 Urine Appearance March 25, 2020 8:05am Cloudy [facility], [address] [place] [address] 74999 Urine Appearance March 11, 2020 11:00am Cloudy [facility], [address] [place] [address] 64844 Urine Appearance March 05, 2020 2:29pm Cloudy [facility], [address] [place] [address] 92220 Urine Appearance March 02, 2020 10:48am Cloudy [facility], [address] [place] [address] 29714 Urine Appearance February 20, 2020 8:40am Turbid [facility], [address] [place] [address] 43644 Urine pH September 23, 2020 7:46pm 6.0 [facility], [address] [place] [address] 43214 Urine pH September 09, 2020 10:50pm 5.5 [facility], [address] [place] [address] 01701 Urine pH August 30, 2020 8:15pm 6.5 [facility], [address] [place] [address] 64793 Urine pH August 09, 2020 8:06pm 6.5 [facility], [address] [place] [address] 44754 Urine pH August 03, 2020 2:50pm 7.5 [facility], [address] [place] [address] 26199 Urine pH July 01, 2020 9:30pm 6.0 [facility], [address] [place] [address] 63836 Urine pH May 18, 2020 12:15am 6.0 [facility], [address] [place] [address] 58925 Urine pH March 25, 2020 8:05am 5.5 [facility], [address] [place] [address] 66113 Urine pH March 11, 2020 11:00am 6.5 [facility], [address] [place] [address] 96841 Urine pH March 05, 2020 2:29pm 6.0 [facility], [address] [place] [address] 59959 Urine pH March 02, 2020 10:48am 5.5 [facility], [address] [place] [address] 04875 Urine pH February 20, 2020 8:40am 5.5 [facility], [address] [place] [address] 63547 Urine Specific [place] September 23, 2020 7:46pm 1.018 [facility], [address] [place] [address] 39697 Urine Specific [place] September 09, 2020 10:50pm 1.035 [facility], [address] [place] [address] 56391 Urine Specific [place] August 30, 2020 8:15pm 1.033 [facility], [address] [place] [address] 33692 Urine Specific [place] July 8:06pm 1.022 [facility], [address] [place] [address] 74170 Urine Specific [place] July 2:50pm 1.020 [facility], [address] [place] [address] 11286 Urine Specific [place] July 01, 2020 9:30pm 1.026 [facility], [address] [place] [address] 45631 Urine Specific [place] April 12:15am >1.045 [facility], [address] [place] [address] 46663 Urine Specific [place] March 25 8:05am 1.025 [facility], [address] [place] [address] 06680 Urine Specific [place] March 11 11:00am 1.025 [facility], [address] [place] [address] 03368 Urine Specific [place] March 05 2:29pm 1.021 [facility], [address] [place] [address] Urine Specific [place] March 02 10:48am 1.025 [facility], [address] [place] [address] Urine Specific [place] February 19 8:40am 1.023 [facility], [address] [place] [address] Urine Leukocyte Esterase April 242019 12:15am Negative NEGATIVE [facility], [address] [place] [address] Urine Leukocyte Esterase February 20, 2020 8:40am Moderate NEGATIVE [facility], [address] [place] [address] Urine Leukocyte Esterase September 7:46pm Trace NEGATIVE A Culture has been added to this specimen per established criteria [facility], [address] [place] [address] Urine Leukocyte Esterase August 10:50pm Small NEGATIVE A Culture has been added to this specimen per established criteria [facility], [address] [place] [address] Urine Leukocyte Esterase August 8:15pm Small NEGATIVE A Culture has been added to this specimen per established criteria [facility], [address] [place] [address] Urine Leukocyte Esterase August 092019 8:06pm Small NEGATIVE A Culture has been added to this specimen per established criteria [facility], [address] [place] [address] Urine Leukocyte Esterase August 032019 2:50pm Small NEGATIVE A Culture has been added to this specimen per established criteria [facility], [address] [place] [address] Urine Leukocyte Esterase June 9:30pm Small NEGATIVE A Culture has been added to this specimen per established criteria [facility], [address] [place] [address] Urine Leukocyte Esterase March 25, 2020 8:05am Trace NEGATIVE A Culture has been added to this specimen per established criteria [facility], [address] [place] [address] Urine Leukocyte Esterase March 11, 2020 11:00am Trace NEGATIVE A Culture has been added to this specimen per established criteria [facility], [address] [place] [address] Urine Leukocyte Esterase March 05, 2020 2:29pm Trace NEGATIVE A Culture has been added to this specimen per established criteria [facility], [address] [place] [address] 35759 Urine Leukocyte Esterase March 02, 2020 10:48am Trace NEGATIVE A Culture has been added to this specimen per established criteria [facility], [address] [place] [address] 53625 Urine Nitrite May 18, 2020 12:15am Negative NEGATIVE [facility], [address] [place] [address] 40006 Urine Nitrite February 20, 2020 8:40am Negative NEGATIVE [facility], [address] [place] [address] 81788 Urine Nitrate September 23, 2020 7:46pm Negative NEGATIVE [facility], [address] [place] [address] Urine Nitrate September 09, 2020 10:50pm Positive NEGATIVE A Culture has been added to this specimen per established criteria [facility], [address] [place] [address] 50212 Urine Nitrate August 30, 2020 8:15pm Negative NEGATIVE [facility], [address] [place] [address] 30016 Urine Nitrate August 09, 2020 8:06pm Negative NEGATIVE [facility], [address] [place] [address] 82893 Urine Nitrate August 03, 2020 2:50pm Negative NEGATIVE [facility], [address] [place], [place] [id number] Urine Nitrate July 01, 2020 9:30pm Negative NEGATIVE [facility], [address] [place] [address] 13504 Urine Nitrate March 25, 2020 8:05am Negative NEGATIVE [facility], [address] [place] [address] 39465 Urine Nitrate March 11, 2020 11:00am Negative NEGATIVE [facility], [address] [place] [address] 05779 Urine Nitrate March 05, 2020 2:29pm Negative NEGATIVE [facility], [address] [place] [address] 71843 Urine Nitrate March 02, 2020 10:48am Negative NEGATIVE [facility], [address] [place] [address] 28269 Urine Protein September 23, 2020 7:46pm Negative NEGATIVE [facility], [address] [place] [address] 59189 Urine Protein September 09, 2020 10:50pm 30 mg/dl NEGATIVE [facility], [address] [place] [address] 14871 Urine Protein August 30, 2020 8:15pm 30 mg/dl NEGATIVE [facility], [address] [place] [address] 70295 Urine Protein August 09, 2020 8:06pm Negative NEGATIVE [facility], [address] [place] [address] 23940 Urine Protein August 03, 2020 2:50pm Negative NEGATIVE [facility], [address] [place] [address] 48679 Urine Protein July 01, 2020 9:30pm Trace NEGATIVE [facility], [address] [place] [address] 93367 Urine Protein May 18, 2020 12:15am Negative NEGATIVE [facility], [address] [place] [address] 70455 Urine Protein March 25, 2020 8:05am Negative NEGATIVE [facility], [address] [place] [address] 31315 Urine Protein March 11, 2020 11:00am Trace NEGATIVE [facility], [address] [place] [address] 67723 Urine Protein March 05, 2020 2:29pm Trace NEGATIVE [facility], [address] [place] [address] 63390 Urine Protein March 02, 2020 10:48am Negative NEGATIVE [facility], [address] [place] [address] 94154 Urine Protein February 20, 2020 8:40am 30 mg/dl NEGATIVE [facility], [address] [place] [address] 63895 Urine Ictotest September 09, 2020 10:50pm Negative [facility], [address] [place] [address] 85687 Urine Glucose September 23, 2020 7:46pm Negative NEGATIVE [facility], [address] [place] [address] 83262 Urine Glucose September 09, 2020 10:50pm Negative NEGATIVE [facility], [address] [place] [address] 98510 Urine Glucose August 30, 2020 8:15pm Negative NEGATIVE [facility], [address] [place] [address] 11887 Urine Glucose August 09, 2020 8:06pm Negative NEGATIVE [facility], [address] [place] [address] 54773 Urine Glucose August 03, 2020 2:50pm Negative NEGATIVE [facility], [address] [place] [address] 39920 Urine Glucose July 01, 2020 9:30pm Negative NEGATIVE [facility], [address] [place] [address] 15036 Urine Glucose May 18, 2020 12:15am Negative NEGATIVE [facility], [address] [place] [address] 89050 Urine Glucose March 25, 2020 8:05am Negative NEGATIVE [facility], [address] [place] [address] 96639 Urine Glucose March 11, 2020 11:00am Negative NEGATIVE [facility], [address] [place] [address] 97399 Urine Glucose March 05, 2020 2:29pm Negative NEGATIVE [facility], [address] [place] [address] 29606 Urine Glucose March 02, 2020 10:48am Negative NEGATIVE [facility], [address] [place] [address] 31131 Urine Glucose February 20, 2020 8:40am Negative NEGATIVE [facility], [address] [place] [address] 83731 Urine Ketones September 23, 2020 7:46pm Negative NEGATIVE [facility], [address] [place] [address] 12445 Urine Ketones September 09, 2020 10:50pm Trace NEGATIVE [facility], [address] [place] [address] 34570 Urine Ketones August 30, 2020 8:15pm Trace NEGATIVE [facility], [address] [place] [address] 50233 Urine Ketones August 09, 2020 8:06pm Negative NEGATIVE [facility], [address] [place] [address] 75528 Urine Ketones August 03, 2020 2:50pm Negative NEGATIVE [facility], [address] [place] [address] 78456 Urine Ketones July 01, 2020 9:30pm Trace NEGATIVE [facility], [address] [place] [address] 18813 Urine Ketones May 18, 2020 12:15am Negative NEGATIVE [facility], [address] [place] [address] 35802 Urine Ketones March 25, 2020 8:05am Trace NEGATIVE [facility], [address] [place] [address] 94110 Urine Ketones March 11, 2020 11:00am Trace NEGATIVE [facility], [address] [place] [address] 70514 Urine Ketones March 05, 2020 2:29pm Negative NEGATIVE [facility], [address] [place] [address] 30799 Urine Ketones March 02, 2020 10:48am Negative NEGATIVE [facility], [address] [place] [address] 57449 Urine Ketones February 20, 2020 8:40am Trace NEGATIVE [facility], [address] [place] [address] 19374 Urine Urobilinogen September 23 7:46pm 0.2 eu/dl [facility], [address] [place] [address] 98387 Urine Urobilinogen Cl[place] 18th, 202 1 10:50pm 1 eu/dl [facility], [address] [place] [address] 84261 Urine Urobilinogen August 30, 2020 8:15p m 1 eu/dl [facility], [address] [place] [address] 58572 Urine Urobilinogen August 09 8:06pm 1 eu/dl [facility], [address] [place] [address] 43350 Urine Urobilinogen August 03 2:50pm 1 eu/dl [facility], [address] [place] [address] 59779 Urine Urobilinogen July 01 9:30pm 1 eu/dl [facility], [address] [place] [address] 94340 Urine Urobilinogen May 18 12:15am 0.2 eu/dl [facility], [address] [place] [address] Urine Urobilinogen March 25, 2020 8:05am 1 eu/dl [facility], [address] [place] [address] Urine Urobilinogen March 11, 2020 11:00am 1 eu/dl [facility], [address] [place] [address] Urine Urobilinogen March 05, 2020 2:29pm 0.2 eu/dl [facility], [address] [place] [address] Urine Urobilinogen March 02, 2020 10:48am 1 eu/dl [facility], [address] [place] [address] Urine Urobilinogen February 20, 2020 8:40am 1 eu/dl [facility], [address] [place] [address] 76872 Urine Bilirubin September 23, 2020 7:46pm Negative NEGATIVE [facility], [address] [place] [address] 31895 Urine Bilirubin September 09, 2020 10:50pm Small NEGATIVE [facility], [address] [place] [address] 63244 Urine Bilirubin August 30, 2020 8:15pm Negative NEGATIVE [facility], [address] [place] [address] 04774 Urine Bilirubin August 09, 2020 8:06pm Negative NEGATIVE [facility], [address] [place] [address] 60839 Urine Bilirubin August 03, 2020 2:50pm Negative NEGATIVE [facility], [address] [place] [address] 63913 Urine Bilirubin July 01, 2020 9:30pm Negative NEGATIVE [facility], [address] [place] [address] 46452 Urine Bilirubin May 18, 2020 12:15am Negative NEGATIVE [facility], [address] [place] [address] 30445 Urine Bilirubin March 25, 2020 8:05am Negative NEGATIVE [facility], [address] [place] [address] 82351 Urine Bilirubin March 11, 2020 11:00am Negative NEGATIVE [facility], [address] [place] [address] 44602 Urine Bilirubin March 05, 2020 2:29pm Negative NEGATIVE [facility], [address] [place], [place] [id number] Urine Bilirubin March 02, 2020 10:48am Negative NEGATIVE [facility], [address] [place] [address] 35866 Urine Bilirubin February 20, 2020 8:40am Negative NEGATIVE [facility], [address] [place] [address] 86730 Urine Blood May 18, 2020 12:15am Negative NEGATIVE [facility], [address] [place] [address] 35146 Urine Blood February 20, 2020 8:40am Large NEGATIVE [facility], [address] [place] [address] 41162 Urine Blood September 23, 2020 7:46pm Negative NEGATIVE [facility], [address] [place] [address] 88285 Urine Blood September 09, 2020 10:50pm Large NEGATIVE A Culture has been added to this specimen per established criteria [facility], [address] [place] [address] 84874 Urine Blood August 30, 2020 8:15pm Large NEGATIVE A Culture has been added to this specimen per established criteria [facility], [address] [place] [address] 63424 Urine Blood August 09, 2020 8:06pm Moderate NEGATIVE A Culture has been added to this specimen per established criteria [facility], [address] [place] [address] 13492 Urine Blood August 03, 2020 2:50pm Small NEGATIVE [facility], [address] [place] [address] 43504 Urine Blood July 01, 2020 9:30pm Moderate NEGATIVE A Culture has been added to this specimen per established criteria [facility], [address] [address] 42372 Urine Blood March 25, 2020 8:05am Negative NEGATIVE [facility], [address] [place] [address] 83500 Urine Blood March 11, 2020 11:00am Negative NEGATIVE [facility], [address] [place] [address] 19772 Urine Blood March 05, 2020 2:29pm Large NEGATIVE A Culture has been added to this specimen per established criteria [facility], [address] [place] [address] 72095 Urine Blood March 02, 2020 10:48am Trace NEGATIVE [facility], [address] [place] [address] Microscopic Urinalysis Comment 2019 12:15am No [facility], [address] [place] [address] Microscopic Urinalysis Comment February 20, 2020 8:40am Microscopic added [facility], [address] [place] [address] Add Urine Microanalysis September 7:46pm Microscopic added [facility], [address] [place], [place] [id number] Add Urine Microanalysis August 10:50pm Microscopic added [facility], [address] [place] [address] Add Urine Microanalysis August 30, 2020 8:15pm Microscopic added [facility], [address] [place], [place] [id number] Add Urine Microanalysis July 8:06pm Microscopic added [facility], [address] [place] [address] Add Urine Microanalysis July 2:50pm Microscopic added [facility], [address] [place] [address] Add Urine Microanalysis June 9:30pm Microscopic added [facility], [address] [place] [address] Add Urine Microanalysis March 25, 2020 8:05am Microscopic added [facility], [address] [place] [address] Add Urine Microanalysis March 11 020 11:00am Microscopic added [facility], [address] [place] [address] Add Urine Microanalysis March 05, 020 2:29pm Microscopic added [facility], [address] [place] [address] Add Urine Microanalysis March 02, 020 10:48am Microscopic added [facility], [address] [place] [address] Urine RBC September 09, 2020 10:50pm 3-5 /hpf [facility], [address] [place] [address] Urine RBC August 30, 2020 8:15pm 1-2 /hpf [facility], [address] [place] [address] Urine RBC August 09, 2020 8:06pm 1-2 /hpf [facility], [address] [place] [address] Urine RBC August 03, 2020 2:50pm 6-10 /hpf [facility], [address] [place] [address] Urine RBC July 01, 2020 9:30pm Occasional /hpf [facility], [address] [place] [address] Urine RBC March 05, 2020 2:29pm 3-5 /hpf [facility], [address] [place] [address] Urine RBC March 02, 2020 10:48am Occasional /hpf [facility], [address] [place] [address] Urine WBC February 20, 2020 8:40am 20-30 /hpf [facility], [address] [place] [address] [id number] Urine WBC September 23, 2020 7:46pm 1-2 /hpf [facility], [address] [place] [address] Urine WBC September 09, 2020 10:50pm 2-4 /hpf [facility], [address] [place] [address] Urine WBC August 30, 2020 8:15pm 1-2 /hpf [facility], [address] [place] [address] Urine WBC August 09, 2020 8:06pm 1-2 /hpf [facility], [address] [place] [address] Urine WBC August 03, 2020 2:50pm 20-30 /hpf [facility], [address] [place] [address] Urine WBC July 01, 2020 9:30pm Occasional /hpf [facility], [address] [place] [address] Urine WBC March 25, 2020 8:05am 3-5 /hpf [facility], [address] [place] [address] Urine WBC March 11, 2020 11:00am 3-5 /hpf [facility], [address] [place] [address] Urine WBC March 05, 2020 2:29pm Occasional /hpf [facility], [address] [place] [address] Urine WBC March 02, 2020 10:48am 3-5 /hpf [facility], [address] [place] [address] Urine Squamous Epithelial Cells Febr uary 2020 7:46pm Few /hpf [facility], [address] [place] [address] Urine Squamous Epithelial Cells Lukas krystina 2020 10:50pm Few /hpf [facility], [address] [place] [address] Urine Squamous Epithelial Cells Lukas krystina 2020 8:15pm Moderate /hpf [facility], [address] [place] [address] Urine Squamous Epithelial Cells Dece mber 2019 8:06pm Many /hpf [facility], [address] [place] [address] Urine Squamous Epithelial Cells Dece mber 2019 2:50pm Moderate /hpf [facility], [address] [place] [address] Urine Squamous Epithelial Cells Nove mber 2019 9:30pm Moderate /hpf [facility], [address] [place] [address] 50653 Urine Squamous Epithelial Cells Augu st 2019 8:05am Many /hpf [facility], [address] [place] [address] Urine Squamous Epithelial Cells March 11, 2020 11:00am Many /hpf [facility], [address] [place] [address] Urine Squamous Epithelial Cells March 05, 2020 2:29pm Many /hpf [facility], [address] [place] [address] Urine Squamous Epithelial Cells March 02, 2020 10:48am Many /hpf [facility], [address] [place] [address] Urine Squamous Epithelial Cells February 20, 2020 8:40am Many /hpf [facility], [address] [place] [address] Urine Bacteria February 20, 2020 8:40am Moderate amount NEGATIVE [facility], [address] [place] [address] Urine Bacteria September 23, 2020 7:46pm Small amount NEGATIVE [facility], [address] [place] [address] Urine Bacteria September 09, 2020 10:50pm Moderate amount NEGATIVE A Culture has been added to this specime n per established criteria [facility], [address] [place] [address] Urine Bacteria August 30, 2020 8:15pm Small amount NEGATIVE [facility], [address] [place] [address] Urine Bacteria August 09, 2020 8:06pm Small amount NEGATIVE [facility], [address] [place] [address] 23243 Urine Bacteria August 03, 2020 2:50pm Small amount NEGATIVE [facility], [address] [place] [address] 75592 Urine Bacteria July 01, 2020 9:30pm Moderate amount NEGATIVE A Culture has been added to this specime n per established criteria [facility], [address] [place] [address] [id number] Urine Bacteria March 25, 2020 8:05am Small amount NEGATIVE [facility], [address] [place] [address] 54277 Urine Bacteria March 11, 2020 11:00am Small amount NEGATIVE [facility], [address] [place] [address] 23506 Urine Bacteria March 05, 2020 2:29pm Small amount NEGATIVE [facility], [address] [place] [address] 66698 Urine Bacteria March 02, 2020 10:48am Small amount NEGATIVE [facility], [address] [place] [address] 80398 Urine Mucus August 30, 2020 8:15pm Small amount [facility], [address] [place] [address] 33886 Urine Mucus March 25, 2020 8:05am Small amount [facility], [address] [place] [address] 38187 Urine Sperm February 20, 2020 8:40am Few [facility], [address] [place] [address] 99927 Carboxyhemoglobin September 09, 2020 11:50pm 1.3 % 0-2.0 REFERENCE RANGE Non Smoker: LESS THAN 2.0% Smoker: LESS THAN 9.0% [facility], [address] [place] [address] 74186 Blood Urea Nitrogen September 23 8:05pm 10 mg/dL 05-15 [facility], [address] [place] [address] 62265 Blood Urea Nitrogen September 09 11:50pm 7 mg/dL 05-15 [facility], [address] [place] [address] 65697 Blood Urea Nitrogen September 05 12:03pm 7 mg/dL 05-15 [facility], [address] [place] [address] 68822 Blood Urea Nitrogen August 30 8:15pm 16 mg/dL 05-15 [facility], [address] [place] [address] 71046 Blood Urea Nitrogen August 09 7:35pm 8 mg/dL 05-15 [facility], [address] [place] [address] Blood Urea Nitrogen August 03 2:35pm 5 mg/dL 05-15 [facility], [address] [place] [address] Blood Urea Nitrogen July 01 9:40pm 6 mg/dL 05-15 [facility], [address] [place] [address] Blood Urea Nitrogen May 18, 2020 6:17am 7 mg/dL 05-15 [facility], [address] [place] [address] Blood Urea Nitrogen March 25, 2020 8:11a m 7 mg/dL 05-15 [facility], [address] [place] [address] Blood Urea Nitrogen March 11, 2020 12:14p m 6 mg/dL 05-15 [facility], [address] [place] [address] Blood Urea Nitrogen March 02, 2020 11:00a m 8 mg/dL 05-15 [facility], [address] [place] [address] Blood Urea Nitrogen February 26, 2020 10:02am 7 mg/dL 05-15 [facility], [address] [place] [address] Blood Urea Nitrogen February 20, 2020 8:35am 6 mg/dL 05-15 [facility], [address] [place] [address] 97964 Sodium Level September 23, 2020 8:05pm 142 mmol/L 132-146 [facility], [address] [place] [address] Sodium Level September 09, 2020 11:50pm 142 mmol/L 132-146 [facility], [address] [place] [address] Sodium Level September 05, 2020 12:03pm 140 mmol/L 132-146 [facility], [address] [place] [address] 37164 Sodium Level August 30, 2020 8:15pm 141 mmol/L 132-146 [facility], [address] [place] [address] 13926 Sodium Level August 09, 2020 7:35pm 141 mmol/L 132-146 [facility], [address] [place] [address] 73691 Sodium Level August 03, 2020 2:35pm 138 mmol/L 132-146 [facility], [address] [place] [address] 23277 Sodium Level July 01, 2020 9:40pm 141 mmol/L 132-146 [facility], [address] [place] [address] 06745 Sodium Level May 18, 2020 6:17am 143 mmol/L 132-146 [facility], [address] [place] [address] 45994 Sodium Level March 25, 2020 8:11am 137 mmol/L 132-146 [facility], [address] [place] [address] 88999 Sodium Level March 11, 2020 12:14pm 140 mmol/L 132-146 [facility], [address] [place] [address] 39286 Sodium Level March 02, 2020 11:00am 139 mmol/L 132-146 [facility], [address] [place] [address] 45017 Sodium Level February 26, 2020 10:02am 138 mmol/L 132-146 [facility], [address] [place] [address] 33401 Sodium Level February 20, 2020 8:35am 138 mmol/L 132-146 [facility], [address] [place] [address] 52452 Potassium Level September 23, 2020 8:05pm 3.9 mmol/L 3.5-5.5 [facility], [address] [place] [address] 79334 Potassium Level September 09, 2020 11:50pm 3.7 mmol/L 3.5-5.5 [facility], [address] [place] [address] 53875 Potassium Level September 05, 2020 12:03pm 3.9 mmol/L 3.5-5.5 [facility], [address] [place] [address] 91352 Potassium Level August 30, 2020 8:15pm 3.8 mmol/L 3.5-5.5 [facility], [address] [place] [address] 52129 Potassium Level August 09, 2020 7:35pm 3.9 mmol/L 3.5-5.5 [facility], [address] [place] [address] 53622 Potassium Level August 03, 2020 2:35pm 4.6 mmol/L 3.5-5.5 [facility], [address] [place] [address] 92649 Potassium Level July 01, 2020 9:40pm 3.7 mmol/L 3.5-5.5 [facility], [address] [place] [address] 62059 Potassium Level May 18, 2020 6:17a m 3.8 mmol/L 3.5-5.5 [facility], [address] [place] [address] 97963 Potassium Level March 25, 2020 8:11am 3.7 mmol/L 3.5-5.5 [facility], [address] [place] [address] Potassium Level March 11, 2020 12:14pm 4.3 mmol/L 3.5-5.5 [facility], [address] [place] [address] Potassium Level March 02, 2020 11:00am 4.1 mmol/L 3.5-5.5 [facility], [address] [place] [address] 66516 Potassium Level February 26, 2020 10:02am 4.1 mmol/L 3.5-5.5 [facility], [address] [place] [address] 10529 Potassium Level February 20, 2020 8:35am 4.1 mmol/L 3.5-5.5 [facility], [address] [place] [address] 04909 Chloride Level September 23, 2020 8:05pm 111 mmol/l 99-109 [facility], [address] [place] [address] 32638 Chloride Level September 09, 2020 11:50pm 111 mmol/l 99-109 [facility], [address] [place] [address] 11705 Chloride Level September 05, 2020 12:03pm 110 mmol/l 99-109 [facility], [address] [place] [address] 38425 Chloride Level August 30, 2020 8:15pm 109 mmol/l 99-109 [facility], [address] [place] [address] Chloride Level August 09, 2020 7:35pm 111 mmol/l 99-109 [facility], [address] [place] [address] 34968 Chloride Level August 03, 2020 2:35pm 110 mmol/l 99-109 [facility], [address] [place] [address] 10335 Chloride Level July 01, 2020 9:40pm 110 mmol/l 99-109 [facility], [address] [place] [address] 75401 Chloride Level May 18, 2020 6:17am 113 mmol/l 99-109 [facility], [address] [place] [address] 46049 Chloride Level March 25, 2020 8:11am 111 mmol/l 99-109 [facility], [address] [place] [address] 48358 Chloride Level March 11, 2020 12:14pm 111 mmol/l 99-109 [facility], [address] [place] [address] 21413 Chloride Level March 02, 2020 11:00am 111 mmol/l 99-109 [facility], [address] [place] [address] 30888 Chloride Level February 26, 2020 10:02am 107 mmol/l 99-109 [facility], [address] [place] [address] 29010 Chloride Level February 20, 2020 8:35am 108 mmol/l 99-109 [facility], [address] [place] [address] 03067 Carbon Dioxide Level September 23 021 8:05pm 24 mmol/l 20-31 [facility], [address] [place] [address] 32262 Carbon Dioxide Level September 09 021 11:50pm 23 mmol/l 20-31 [facility], [address] [place] [address] 61647 Carbon Dioxide Level September 05, 021 12:03pm 20 mmol/l 20-31 [facility], [address] [place] [address] 28276 Carbon Dioxide Level August 30 8:15pm 24 mmol/l 20-31 [facility], [address] [place] [address] 94708 Carbon Dioxide Level August 09, 2020 7:35pm 24 mmol/l 20-31 [facility], [address] [place] [address] 05598 Carbon Dioxide Level August 03, 2020 2:35pm 21 mmol/l 20-31 [facility], [address] [place] [address] 64837 Carbon Dioxide Level July 01 020 9:40pm 22 mmol/l 20-31 [facility], [address] [place] [address] 18581 Carbon Dioxide Level May 18, 2020 6:17am 25 mmol/l 20-31 [facility], [address] [place] [address] 53458 Carbon Dioxide Level March 25 0 8:11am 21 mmol/l 20-31 [facility], [address] [place] [address] 76663 Carbon Dioxide Level March 11, 2020 12:14pm 20 mmol/l 20-31 [facility], [address] [place] [address] 12348 Carbon Dioxide Level March 02, 2020 11:00am 20 mmol/l 20-31 [facility], [address] [place] [address] 47226 Carbon Dioxide Level February 26, 2020 10:02a m 22 mmol/l [facility], [address] [place] [address] Carbon Dioxide Level February 20, 2020 8:35a m 21 mmol/l [facility], [address] [place] [address] 37029 Anion Gap September 23, 2020 8:05pm 11 mmol/l 8-16 [facility], [address] [place] [address] 68757 Anion Gap September 09, 2020 11:50pm 12 mmol/l 8-16 [facility], [address] [place] [address] 28256 Anion Gap September 05, 2020 12:03pm 14 mmol/l 8-16 [facility], [address] [place] [address] 80525 Anion Gap August 30, 2020 8:15pm 12 mmol/l 8-16 [facility], [address] [place] [address] 28848 Anion Gap August 09, 2020 7:35pm 10 mmol/l 8-16 [facility], [address] [place] [address] 87587 Anion Gap August 03, 2020 2:35pm 12 mmol/l 8-16 [facility], [address] [place] [address] 33525 Anion Gap July 01, 2020 9:40pm 13 mmol/l 8-16 [facility], [address] [place] [address] 30313 Anion Gap May 18, 2020 6:17am 9 mmol/l 8-16 [facility], [address] [place] [address] 26250 Anion Gap March 25, 2020 8:11am 9 mmol/l 8-16 [facility], [address] [place] [address] 97418 Anion Gap March 11, 2020 12:14pm 13 mmol/l 8-16 [facility], [address] [place] [address] 54133 Anion Gap March 02, 2020 11:00am 12 mmol/l 8-16 [facility], [address] [place] [address] 93242 Anion Gap February 26, 2020 10:02am 13 mmol/l 8-16 [facility], [address] [place] [address] 81865 Anion Gap February 20, 2020 8:35am 13 mmol/l 8-16 [facility], [address] [place] [address] 19918 Glucose Level September 23, 2020 8:05pm 82 mg/dL 74-106 [facility], [address] [place] [address] 75183 Glucose Level September 09, 2020 11:50pm 90 mg/dL 74-106 [facility], [address] [place] [address] 13690 Glucose Level September 05, 2020 12:03pm 106 mg/dL 74-106 [facility], [address] [place] [address] 14711 Glucose Level August 30, 2020 8:15pm 90 mg/dL 74-106 [facility], [address] [place] [address] 98282 Glucose Level August 09, 2020 7:35pm 89 mg/dL 74-106 [facility], [address] [place] [address] 21668 Glucose Level August 03, 2020 2:35pm 87 mg/dL 74-106 [facility], [address] [place] [address] 95238 Glucose Level July 01, 2020 9:40pm 100 mg/dL 74-106 [facility], [address] [place] [address] 94902 Glucose Level May 18, 2020 6:17am 93 mg/dL 74-106 [facility], [address] [place] [address] 73880 Glucose Level March 25, 2020 8:11am 93 mg/dL 74-106 [facility], [address] [place] [address] 71563 Glucose Level March 11, 2020 12:14pm 88 mg/dL 74-106 [facility], [address] [place] [address] 83107 Glucose Level March 02, 2020 11:00am 91 mg/dL 74-106 [facility], [address] [place] [address] 35069 Glucose Level February 26, 2020 10:02am 92 mg/dL 74-106 [facility], [address] [place] [address] 44398 Glucose Level February 20, 2020 8:35am 98 mg/dL 74-106 [facility], [address] [place] [address] 82967 Creatinine September 23, 2020 8:05pm 1.0 mg/dL 0.5-1.1 [facility], [address] [place] [address] 02618 Creatinine September 09, 2020 11:50pm 0.9 mg/dL 0.5-1.1 [facility], [address] [place] [address] 64190 Creatinine September 05, 2020 12:03pm 1.0 mg/dL 0.5-1.1 [facility], [address] [place] [address] Creatinine August 30, 2020 8:15pm 1.1 mg/dL 0.5-1.1 [facility], [address] [place] [address] 36503 Creatinine August 09, 2020 7:35pm 1.3 mg/dL 0.5-1.1 [facility], [address] [place] [address] Creatinine August 03, 2020 2:35pm 0.8 mg/dL 0.5-1.1 [facility], [address] [place], [place] [id number] Creatinine July 01, 2020 9:40pm 0.9 mg/dL 0.5-1.1 [facility], [address] [place], [place] [id number] Creatinine May 18, 2020 6:17am 0.7 mg/dL 0.5-1.1 [facility], [address] [place], [place] [id number] Creatinine March 25, 2020 8:11am 0.9 mg/dL 0.5-1.1 [facility], [address] [place], [place] [id number] Creatinine March 11, 2020 12:14pm 1.2 mg/dL 0.5-1.1 [facility], [address] [place] [address] Creatinine March 02, 2020 11:00am 1.0 mg/dL 0.5-1.1 [facility], [address] [place] [address] Creatinine February 26, 2020 10:02am 1.0 mg/dL 0.5-1.1 [facility], [address] [place], [place] [id number] Creatinine February 20, 2020 8:35am 1.1 mg/dL 0.5-1.1 [facility], [address] [place] [address] Glomerular Filtration Rate Calc Febr uary 2020 8:05pm Greater than 60 ml/min ABOVE 60 [facility], [address] [place] [address] 50379 Glomerular Filtration Rate Calc Lukas krystina 2020 11:50pm Greater than 60 ml/min ABOVE 60 [facility], [address] [place] [address] Glomerular Filtration Rate Calc Lukas krystina 2020 12:03pm Greater than 60 ml/min ABOVE 60 [facility], [address] [place] [address] 02995 Glomerular Filtration Rate Calc Lukas krystina 2020 8:15pm 60 ml/min ABOVE 60 [facility], [address] [place] [address] 55984 Glomerular Filtration Rate Calc Dece mber 2019 7:35pm 50 ml/min ABOVE 60 [facility], [address] [place] [address] 61186 Glomerular Filtration Rate Calc Dece mb2019 2:35pm Greater than 60 ml/min ABOVE 60 [facility], [address] [place] [address] 48883 Glomerular Filtration Rate Calc Nove mber 2019 9:40pm Greater than 60 ml/min ABOVE 60 [facility], [address] [place] [address] 25371 Glomerular Filtration Rate Calc Sept emb2019 6:17am Greater than 60 ml/min ABOVE 60 [facility], [address] [place] [address] 16761 Glomerular Filtration Rate Calc Aug2019 8:11am Greater than 60 ml/min ABOVE 60 [facility], [address] [place] [address] 94250 Glomerular Filtration Rate Calc March 11, 2020 12:14pm 55 ml/min ABOVE 60 [facility], [address] [place] [address] 68916 Glomerular Filtration Rate Calc March 02, 2020 11:00am Greater than 60 ml/min ABOVE 60 [facility], [address] [place] [address] 63135 Glomerular Filtration Rate Calc February 26, 2020 10:02am Greater than 60 ml/min ABOVE 60 [facility], [address] [place] [address] 59171 Glomerular Filtration Rate Calc February 20, 2020 8:35am Greater than 60 ml/min ABOVE 60 [facility], [address] [place] [address] [id number] Alanine Aminotransferase (ALT/SGPT) September 23, 2020 8:05pm 27 U/L 10-49 [facility], [address] [place] [address] [id number] Alanine Aminotransferase (ALT/SGPT) September 09, 2020 11:50pm 31 U/L 10-49 [facility], [address] [place] [address] [id number] Alanine Aminotransferase (ALT/SGPT) September 05, 2020 12:03pm 69 U/L 10-49 [facility], [address] [place] [address] Alanine Aminotransferase (ALT/SGPT) August 09, 2020 7:35pm 30 U/L 10-49 [facility], [address] [place] [address] Alanine Aminotransferase (ALT/SGPT) August 03, 2020 2:35pm 42 U/L 10-49 [facility], [address] [place] [address] Alanine Aminotransferase (ALT/SGPT) July 01, 2020 9:40pm 43 U/L 10-49 [facility], [address] [place] [address] Alanine Aminotransferase (ALT/SGPT) May 18, 2020 6:17am 52 U/L 10-49 [facility], [address] [place] [address] Alanine Aminotransferase (ALT/SGPT) March 25, 2020 8:11am 27 U/L 10-49 [facility], [address] [place] [address] [id number] Alanine Aminotransferase (ALT/SGPT) March 11, 2020 12:14pm 29 U/L 10-49 [facility], [address] [place] [address] [id number] Alanine Aminotransferase (ALT/SGPT) March 02, 2020 11:00am 29 U/L 10-49 [facility], [address] [place] [address] [id number] Alanine Aminotransferase (ALT/SGPT) February 26, 2020 10:02am 33 U/L 10-49 [facility], [address] [place] [address] [id number] Alanine Aminotransferase (ALT/SGPT) February 20, 2020 8:35am 42 U/L 10-49 [facility], [address] [place] [address] [id number] Aspartate Amino Transf (AST/SGOT) [place] 2020 8:05pm 14 U/L 0-33 [facility], [address] [place] [address] [id number] Aspartate Amino Transf (AST/SGOT) [place] 2020 11:50pm 12 U/L 0-33 [facility], [address] [place] [address] [id number] Aspartate Amino Transf (AST/SGOT) [place] 2020 12:03pm 29 U/L 0-33 [facility], [address] [place] [address] [id number] Aspartate Amino Transf (AST/SGOT) De cember 2019 7:35pm 13 U/L 0-33 [facility], [address] [place] [address] [id number] Aspartate Amino Transf (AST/SGOT) De cember 2019 2:35pm 35 U/L 0-33 [facility], [address] [place] [address] [id number] Aspartate Amino Transf (AST/SGOT) No vember 2019 9:40pm 21 U/L 0-33 [facility], [address] [place] [address] [id number] Aspartate Amino Transf (AST/SGOT) Se ptember 2019 6:17am 27 U/L 0-33 [facility], [address] [place] [address] [id number] Aspartate Amino Transf (AST/SGOT) Au kem 2019 8:11am 15 U/L 0-33 [facility], [address] [place] [address] [id number] Aspartate Amino Transf (AST/SGOT) Ju ly 2019 12:14pm 17 U/L 0-33 [facility] LABORATORY, [address] [place] [address] 66550 Aspartate Amino Transf (AST/SGOT) Ju ly 2019 11:00am 14 U/L 0-33 [facility], [address] [place] [address] 44684 Aspartate Amino Transf (AST/SGOT) Ju ly 2019 10:02am 17 U/L 0-33 [facility], [address] [place] [address] 35086 Aspartate Amino Transf (AST/SGOT) Ju ne 2019 8:35am 23 U/L 0-33 [facility], [address] [place] [address] 00659 Alkaline Phosphatase September 23 8:05pm 139 U/L 45-129 [facility], [address] [place] [address] 74595 Alkaline Phosphatase September 09 11:50pm 131 U/L 45-129 [facility], [address] [place] [address] 63737 Alkaline Phosphatase September 05 12:03pm 167 U/L 45-129 [facility], [address] [place] [address] 74509 Alkaline Phosphatase August 09, 2020 7:35pm 122 U/L 45-129 [facility], [address] [place] [address] 23746 Alkaline Phosphatase August 03, 2020 2:35pm 125 U/L 45-129 [facility], [address] [place] [address] 61579 Alkaline Phosphatase July 01 9:40pm 139 U/L 45-129 [facility], [address] [place] [address] 63882 Alkaline Phosphatase May 18, 2020 6:17am 110 U/L 45-129 [facility], [address] [place] [address] 39208 Alkaline Phosphatase March 25 8:11am 122 U/L 45-129 [facility], [address] [place] [address] 00962 Alkaline Phosphatase March 11, 2020 12:14pm 129 U/L 45-129 [facility], [address] [place] [address] 42191 Alkaline Phosphatase March 02, 2020 11:00am 136 U/L 45-129 [facility], [address] [place] [address] 70950 Alkaline Phosphatase February 26, 2020 10:02a m 147 U/L 45-129 [facility], [address] [place] [address] 22988 Alkaline Phosphatase February 20, 2020 8:35a m 149 U/L 45-129 [facility], [address] [place] [address] 04252 Amylase Level September 09, 2020 11:50pm 45 U/L 30-118 [facility], [address] [place] [address] 38849 Amylase Level August 09, 2020 7:35pm 39 U/L 30-118 [facility], [address] [place] [address] 53440 Amylase Level August 03, 2020 2:35pm 31 U/L 30-118 [facility], [address] [place] [address] 94575 Amylase Level May 17, 2020 7:20pm 39 U/L 30-118 [facility], [address] [place] [address] 47610 Amylase Level March 25, 2020 8:11am 35 U/L 30-118 [facility], [address] [place] [address] 07026 Lipase September 23, 2020 8:05pm 120 U/L 73-393 [facility], [address] [place] [address] 37066 Lipase September 09, 2020 11:50pm 116 U/L 73-393 [facility], [address] [place] [address] 30848 Lipase August 09, 2020 7:35pm 90 U/L 73-393 [facility], [address] [place] [address] 20444 Lipase August 03, 2020 2:35pm 68 U/L 73-393 [facility], [address] [place] [address] 72875 Lipase May 17, 2020 7:20pm 89 U/L 73-393 [facility], [address] [place] [address] 46411 Lipase March 25, 2020 8:11am 97 U/L 73-393 [facility], [address] [place] [address] 61858 Lipase March 11, 2020 12:14pm 128 U/L 73-393 [facility], [address] [place] [address] 58077 Calcium Level September 23, 2020 8:05pm 9.6 mg/dL 8.5-10.1 [facility], [address] [place] [address] 71435 Calcium Level September 09, 2020 11:50pm 9.6 mg/dL 8.5-10.1 [facility], [address] [place] [address] 67721 Calcium Level September 05, 2020 12:03pm 9.4 mg/dL 8.5-10.1 [facility], [address] [place] [address] 37347 Calcium Level August 30, 2020 8:15pm 9.6 mg/dL 8.5-10.1 [facility], [address] [place] [address] 07254 Calcium Level August 09, 2020 7:35pm 9.5 mg/dL 8.5-10.1 [facility], [address] [place] [address] 11937 Calcium Level August 03, 2020 2:35pm 9.1 mg/dL 8.5-10.1 [facility], [address] [place] [address] 09442 Calcium Level July 01, 2020 9:40pm 9.2 mg/dL 8.5-10.1 [facility], [address] [place] [address] 14110 Calcium Level May 18, 2020 6:17am 8.5 mg/dL 8.5-10.1 Delta: 9.6 on 05/17/20-2019Repeated by: Roderick Cee 05/18/20 0824.Result Confirmation: 8.3 # mg/dL [facility], [address] [place] [address] 22903 Calcium Level March 25, 2020 8:11am 8.9 mg/dL 8.5-10.1 [facility], [address] [place] [address] 56481 Calcium Level March 11, 2020 12:14pm 8.6 mg/dL 8.5-10.1 [facility], [address] [place] [address] 52886 Calcium Level March 02, 2020 11:00am 9.0 mg/dL 8.5-10.1 [facility], [address] [place] [address] 72793 Calcium Level February 26, 2020 10:02am 9.0 mg/dL 8.5-10.1 [facility], [address] [place] [address] 02478 Calcium Level February 20, 2020 8:35am 9.4 mg/dL 8.5-10.1 [facility], [address] [place] [address] 43738 Total Bilirubin September 23, 2020 8:05pm 0.2 mg/dL 0.3-1.2 [facility], [address] [place] [address] 24335 Total Bilirubin September 09, 2020 11:50pm 0.2 mg/dL 0.3-1.2 [facility], [address] [place] [address] 15205 Total Bilirubin September 05, 2020 12:03pm 0.3 mg/dL 0.3-1.2 [facility], [address] [place] [address] 73732 Total Bilirubin August 09, 2020 7:35pm 0.3 mg/dL 0.3-1.2 [facility], [address] [place] [address] 51323 Total Bilirubin August 03, 2020 2:35pm 0.4 mg/dL 0.3-1.2 [facility], [address] [place] [address] 21390 Total Bilirubin July 01, 2020 9:40pm 0.3 mg/dL 0.3-1.2 [facility], [address] [place] [address] 29611 Total Bilirubin May 18, 2020 6:17a m 0.3 mg/dL 0.3-1.2 [facility], [address] [place] [address] 61195 Total Bilirubin March 25, 2020 8:11am 0.2 mg/dL 0.3-1.2 [facility], [address] [place] [address] 79452 Total Bilirubin March 11, 2020 12:14pm 0.2 mg/dL 0.3-1.2 [facility], [address] [place] [address] 02686 Total Bilirubin March 02, 2020 11:00am 0.4 mg/dL 0.3-1.2 [facility], [address] [place] [address] 82240 Total Bilirubin February 26, 2020 10:02am 0.3 mg/dL 0.3-1.2 [facility], [address] [place] [address] Total Bilirubin February 20, 2020 8:35am 0.3 mg/dL 0.3-1.2 [facility], [address] [place] [address] 08513 Albumin September 23, 2020 8:05pm 3.7 g/dL 3.2-4.8 [facility], [address] [place] [address] 96200 Albumin September 09, 2020 11:50pm 3.5 g/dL 3.2-4.8 [facility], [address] [place] [address] 62622 Albumin September 05, 2020 12:03pm 3.4 g/dL 3.2-4.8 [facility], [address] [place] [address] 26820 Albumin August 09, 2020 7:35pm 3.6 g/dL 3.2-4.8 [facility], [address] [place] [address] 73278 Albumin August 03, 2020 2:35pm 3.5 g/dL 3.2-4.8 [facility], [address] [place] [address] 43233 Albumin July 01, 2020 9:40pm 3.5 g/dL 3.2-4.8 [facility], [address] [place] [address] 55534 Albumin May 18, 2020 6:17am 3.0 g/dL 3.2-4.8 [facility], [address] [place] [address] 11050 Albumin March 25, 2020 8:11am 3.0 g/dL 3.2-4.8 [facility], [address] [place] [address] 94961 Albumin March 11, 2020 12:14pm 3.2 g/dL 3.2-4.8 [facility], [address] [place] [address] 47481 Albumin March 02, 2020 11:00am 3.1 g/dL 3.2-4.8 [facility], [address] [place] [address] 82784 Albumin February 26, 2020 10:02am 3.4 g/dL 3.2-4.8 [facility], [address] [place] [address] 14642 Albumin February 20, 2020 8:35am 3.5 g/dL 3.2-4.8 [facility], [address] [place] [address] 16851 Serum Total Protein September 23 8:05pm 8.6 g/dL 5.7-8.2 [facility], [address] [place] [address] 92533 Serum Total Protein September 09 11:50pm 8.2 g/dL 5.7-8.2 [facility], [address] [place] [address] 58496 Serum Total Protein September 05 12:03pm 7.8 g/dL 5.7-8.2 [facility], [address] [place] [address] 34714 Serum Total Protein August 09, 020 7:35pm 8.2 g/dL 5.7-8.2 [facility], [address] [place] [address] Serum Total Protein August 03, 020 2:35pm 8.1 g/dL 5.7-8.2 [facility], [address] [place] [address] 82657 Serum Total Protein July 01 9:40pm 8.0 g/dL 5.7-8.2 [facility], [address] [place] [address] 66890 Serum Total Protein May 18, 2020 6:17am 6.6 g/dL 5.7-8.2 [facility], [address] [place] [address] 51206 Serum Total Protein March 25, 2020 8:11a m 7.7 g/dL 5.7-8.2 [facility], [address] [place] [address] 91565 Serum Total Protein March 11, 2020 12:14p m 7.6 g/dL 5.7-8.2 [facility], [address] [place] [address] 19583 Serum Total Protein March 02, 2020 11:00a m 7.9 g/dL 5.7-8.2 [facility], [address] [place] [address] 79769 Serum Total Protein February 26, 2020 10:02am 7.6 g/dL 5.7-8.2 [facility], [address] [place] [address] 89259 Serum Total Protein February 20, 2020 8:35am 7.9 g/dL 5.7-8.2 [facility], [address] [place] [address] 54343 Lactic Acid Level July 01, 2020 9:40p m 1.0 mmol/L 0.5-2.2 [facility], [address] [place] [address] 86990 Human Chorionic Gonadotropin, Quant August 09, 2020 7:35pm 55031 mIU/mL 0-10 APPROXIMATE GESTATION AGE APRROX IMATE HCG RANGE 0-1 WEEK 0 - 50 1-2 WEEKS 40 - 300 2-3 WEEKS 100 - 1,000 3-4 WEEKS 500 - 6,000 1-2 MONTHS 5,000 - 200,000 2-3 MONTHS 10,000 - 100,000 2ND TRIMESTER 3,000 - 50,000 3RD TRIMESTER 1,000 - 50,000 [facility], [address] [place] [address] 47289 Human Chorionic Gonadotropin, Quant August 14, 2020 9:31am 22821 mIU/mL 0-10 APPROXIMATE GESTATION AGE APRROX IMATE HCG RANGE 0-1 WEEK 0 - 50 1-2 WEEKS 40 - 300 2-3 WEEKS 100 - 1,000 3-4 WEEKS 500 - 6,000 1-2 MONTHS 5,000 - 200,000 2-3 MONTHS 10,000 - 100,000 2ND TRIMESTER 3,000 - 50,000 3RD TRIMESTER 1,000 - 50,000 [facility], [address] [place] [address] 66766 Human Chorionic Gonadotropin, Quant August 03, 2020 2:35pm 42545 mIU/mL 0-10 APPROXIMATE GESTATION AGE APRROX IMATE HCG RANGE 0-1 WEEK 0 - 50 1-2 WEEKS 40 - 300 2-3 WEEKS 100 - 1,000 3-4 WEEKS 500 - 6,000 1-2 MONTHS 5,000 - 200,000 2-3 MONTHS 10,000 - 100,000 2ND TRIMESTER 3,000 - 50,000 3RD TRIMESTER 1,000 - 50,000 [facility], [address] [place] [address] 60080 Human Chorionic Gonadotropin, Quant July 01, 2020 10:10am Less than 1 mIU/mL 0-1 0 APPROXIMATE GESTATION AGE APRROX IMATE HCG RANGE 0-1 WEEK 0 - 50 1-2 WEEKS 40 - 300 2-3 WEEKS 100 - 1,000 3-4 WEEKS 500 - 6,000 1-2 MONTHS 5,000 - 200,000 2-3 MONTHS 10,000 - 100,000 2ND TRIMESTER 3,000 - 50,000 3RD TRIMESTER 1,000 - 50,000 [facility], [address] [place] [address] 73645 Thyroid Stimulating Hormone (TSH) Ju ly 2019 10:02am 1.84 uIU/mL 0.35-5.50 [facility], [address] [place] [address] Serum Test, Qualitative Fe bruary 2020 8:05pm Negative NEGATIVE [facility], [address] [place] [address] Serum Test, Qualitative Ja nuary 2020 11:50pm Negative NEGATIVE [facility], [address] [place] [address] Serum Test, Qualitative De cember 2019 2:35pm Positive NEGATIVE [facility], [address] [place] [address] Serum Test, Qualitative No vember 2019 9:40pm Negative NEGATIVE [facility], [address] [place] [address] Serum Test, Qualitative Se ptember 2019 7:20pm Negative NEGATIVE [facility], [address] [place] [address] Serum Test, Qualitative Au kem 2019 8:11am Negative NEGATIVE [facility], [address] [place] [address] 87412 Urine HCG, Qualitative March 11 11:00am Negative NEGATIVE [facility], [address] [place] [address] 20831 Urine HCG, Qualitative March 02 11:00am Negative NEGATIVE [facility], [address] [place] [address] 37559 Urine HCG, Qualitative February 19 8:32am Negative NEGATIVE [facility], [address] [place] [address] 54393 Coronavirus (COVID-19)(PCR) March 252019 2:30pm Not detected Not Detec dee This test was developed and its performa nce characteristicsdetermined by [facility]. This test has not beenFDA cleared or [...] (not detected) result in this assay.Performed at: RN - [facility] [address] [id number] Director: Deisy Hdez MD, Phone: [phone] [facility] , [address] [place] [phone] Urine Random Creatinine February 27 7:19am 234.0 mg/dL THERE IS NO ESTABLISHED RANGE FOR RANDOM URINE CREATININE [facility], [address] [place] [address] Urine Microalbumin February 28, 2020 7:19am 13.7 mg/L 0.0-29.9 [facility] [place] [address] Urine Microalbumin/Creatinine Ratio February 28, 2020 7:19am 5.8 ug/mg 0.0-30.0 [facility], [address] [place] [address] 44663 Hemoglobin A1c February 26, 2020 10:02am 5.3 [...] glucose control. * High risk of developing nursing home complications such asretinopathy, nephropathy, neuropathy, cardiopathy, etc. Some danger of hypoglycemic reaction in Type I diabetics.Some glucose intolerant individuals and "Sub Clinical"diabetics may demonstrate HGBA1C levels in this area. [facility], [address] [place] [address] Estimated Average Glucose (eAG) February 26, 2020 10:02am 105 mg/dl An A1C of 7% - the goal of diabetic therapy - is equivalentto an EAG of 154 mg/dl. [facility], [address] [place] [address] Microbiology Results Procedure Source Result Collection Date/Time Result Date/Time Result Comment Performing Site Urine Culture Urine,voided September 09, 2020 10:50pm August 242020 8:14am [facility], [address] [place] [address] Urine Culture Urine,voided August 30, 2020 8:15pm August 2:09pm [facility], [address] [place] [address] Urine Culture Urine,voided August 09, 2020 8:06pm August 11, 2020 7:16am [facility], [address] [place] [address] Urine Culture Urine,clean catch August 03, 2020 2:50pm August 04, 2020 11:45am [facility], [address] [place] [address] Urine Culture Urine,voided July 01, 2020 9:30pm June 232019 7:24am [facility], [address] [place] [address] Urine Culture Urine,voided May 18, 2020 1:15am 2019 11:25am [facility], [address] [place] [address] Urine Culture Urine,clean catch March 25, 2020 9:05am March 26, 2020 1:36pm [facility], [address] [place] [address] Urine Culture Urine,clean catch March 11, 2020 12:00pm March 12, 020 1:24pm [facility], [address] [place] [address] Urine Culture Urine,voided March 05, 2020 3:29pm March 06, 20 20 9:18am [facility], [address] [place] [address] Urine Culture Urine,voided March 02, 2020 11:48am March 03 020 8:26am [facility], [address] [place] [address] 18706 Streptococcus Rapid Screen Throat March 13, 2020 10:34am March 14, 020 8:58am [facility], [address] [place] [address] 70926 Streptococcus Rapid Screen Throat March 13, 2020 10:34am March 13, 020 11:04am [facility], [address] [place] [address] 04991 Blood Culture Venous blood No growth. July 01, 2020 9:40pm June 232019 9:46pm [facility], [address] [place] [address] 45677 SARS-CoV-2 (PCR) Interpretation Naso pharyngeal No Organisms Detected July 01, 2020 9:45pm July 01, 2020 10:29pm [facility], [address] [place] [address] 45149 Nasal BinaxNow Covid - 19 Ag Negative July 30, 2020 9:45am July 302019 11:56am [facility], [address] [place] [address] 39601 Influenza-Like Illness (PCR) Nasopharyngea l Sars-Cov-2 Not Detected September 23, 2020 7:49pm September 23, 2020 9:05pm [facility], [address] [place] [address] 59255 Nasopharyngeal Influen za A Not Detected September 23, 2020 7:49pm September 232020 9:05pm [facility], [address] [place] [address] 10738 Nasopharyngeal Influen za B Not Detected September 23, 2020 7:49pm September 232020 9:05pm [facility], [address] [place] [address] 33756 Nasopharyngeal September 23, 2020 7:49pm September 23, 2020 9:05pm [facility], [address] [place] [address] 32610 Influenza-Like Illness (PCR) Nasopharyngea l No Organisms Detected August 22, 2020 6:22am August 22, 2020 7:41am [facility], [address] [place] [address] 20823 Nasopharyngeal August 22, 2020 6:22am August 22, 2020 7:41am [facility], [address] [place] [address] 45876 Gastrointestinal Tract Panel (PCR) Stool C. difficile toxin detected May 17, 2020 3:03pm May 17, 2020 5:25pm [facility], [address] [place] [address] Respiratory Panel (PCR) Nasopharyngeal No Organisms Detected May 18, 2020 1:40am May 18, 2020 2:49am [facility], [address] [facility] [address] Diagnostic Imaging Reports Report Dictated Date/Time Dictated By Status Radiology Report February 28, 2020 9:48am Oliverio Chen MD completed [facility] [address] [place] [id number] [phone] NAME SEX PT STATUS ACCOUNT NUMBER ANNA MARIE BELTRAN [facility] REF [id number] ORDERING PHYSICIAN LOCATION MEDICAL RECORD NO. Jose Kramer DO [id number] ATTENDING PHYSICIAN DATE OF DATE OF EXAM/TIME [...] fluid. Reported By Oliverio Chen MD on 02/28/2048 Signed By Oliverio Chen MD on 02/28/2052 Date Time CC: Joes Kramer DO; Oliverio Chen MD Techn: BUSMI Trans Dt/Tm: Trans by: DT Prt Dt/Tm: : Total DLP = 0.00 mGy-cm : Total Radiation Dose = 0.0000 mSv Lifetime Dose: 0 mSv Radiology Report March 02, 2020 1:53pm Warren Bourne MD completed [facility] [address] [place] [address] [phone] NAME SEX PT STATUS ACCOUNT NUMBER ANNA MARIE BELTRAN [facility] [id number] ORDERING PHYSICIAN LOCATION MEDICAL RECORD NO. Sameer Islas MD ER [id number] ATTENDING PHYSICIAN DATE OF DATE OF EXAM/TIME [...] Reported By Warren Bourne MD on 03/02/20 135 Signed By Warren Bourne MD on 03/02/20 1353 Date Time CC: Jose Kramer DO; Warren Bourne MD Techn: MORSA Trans Dt/Tm: Trans by: DT Prt Dt/Tm: : Total DLP = 1121.00 mGy-cm : Total Radiation Dose = 16.8150 mSv Lifetime Dose: 16.8150 mS v Radiology Report March 12, 2020 2:59pm Oliverio Chen MD completed [facility] [address] [place] [address] [phone] NAME SEX PT STATUS ACCOUNT NUMBER ANNA MARIE BELTRAN REG REF [id number] ORDERING PHYSICIAN LOCATION MEDICAL RECORD NO. Pola Meadows MD [id number] ATTENDING PHYSICIAN DATE OF DATE OF EXAM/TIME [...] 25, 2020 10:18am Oliverio Chen MD completed [facility] [address] [place] [id number] [phone] NAME SEX PT STATUS ACCOUNT NUMBER ANNA MARIE BELTRAN [facility] ER [id number] ORDERING PHYSICIAN LOCATION MEDICAL RECORD NO. Hiren Perez MD ER [id number] ATTENDING PHYSICIAN DATE OF DATE OF EXAM/TIME [...] May 17 9:41pm Ulisses Sethi MD completed [place] [address] [place] [id number] [phone] NAME SEX PT STATUS ACCOUNT NUMBER ANNA [facility] ER [id number] ORDERING PHYSICIAN LOCATION MEDICAL RECORD NO. Mikhail Sheriff MD ER [id number] ATTENDING PHYSICIAN DATE OF DATE OF EXAM/TIME [...] Trice Aj; Ulisses Sethi MD Techn: JANAE Trans Dt/Tm: Trans by: DT Prt Dt/Tm: : Total DLP = 1196.00 mGy-cm : Total Radiation Dose = 17.9400 mSv Lifetime Dose: 34.7550 mS v Radiology Report July 01, 2020 10:55p m Telly Robledo MD completed [facility] [address] [place] [id number] [phone] NAME SEX PT STATUS ACCOUNT NUMBER ANNA [facility] ER [id number] ORDERING PHYSICIAN LOCATION MEDICAL RECORD NO. Mikhail Sheriff MD ER [id number] ATTENDING PHYSICIAN DATE OF DATE OF EXAM/TIME [...] CC: Nicol Sebastian; Telly Robledo MD Techn: [email or web address] Trans Dt/Tm: Trans by: DT Prt Dt/Tm: 4668-7737: Total DLP = 0.00 mGy-cm Fluoroscopy Time (in secs): Radiology Report July 01, 2020 11:07p m Niels Wilkerson MD [place] [id number] [phone] NAME SEX PT STATUS ACCOUNT NUMBER ANNA [facility] ER [id number] ORDERING PHYSICIAN LOCATION MEDICAL RECORD NO. Mikhail Sheriff MD ER [id number] ATTENDING PHYSICIAN DATE OF DATE OF EXAM/TIME Nicol Sebastian NP 1995 07/01/202115 TYPE / EXAM CT Abd/pel [...] Trans Dt/Tm: Trans by: DT Prt Dt/Tm: 2111-6233: Total DLP = 1469.00 mGy-cm 1838-0180: Total Radiation Dose = 22.0350 mSv Lifetime Dose: 56.7900 mS v Radiology Report August 03, 2020 7:33p m Gibran Villa MD completed [facility] [address] [place] [id number] [phone] NAME SEX PT STATUS ACCOUNT NUMBER ANNA [facility] ER [id number] ORDERING PHYSICIAN LOCATION MEDICAL RECORD NO. Daljit Alex MD ER [id number] ATTENDING PHYSICIAN DATE OF DATE OF EXAM/TIME [...] 2020 7:59p m Telly Robledo MD completed [facility] [address] [place] [address] [phone] NAME SEX PT STATUS ACCOUNT NUMBER ANNA [facility] ER [id number] ORDERING PHYSICIAN LOCATION MEDICAL RECORD NO. Daljit Alex MD ER [id number] ATTENDING PHYSICIAN DATE OF DATE OF EXAM/TIME [...] 03, 2020 7:34p m Gibran Villa MD [place] [id number] [place] [address] [phone] NAME SEX PT STATUS ACCOUNT NUMBER ANNA [facility] ER [id number] ORDERING PHYSICIAN LOCATION MEDICAL RECORD NO. Daljit Alex MD ER [id number] ATTENDING PHYSICIAN DATE OF DATE OF EXAM/TIME Nicol Sebastian [employer] [facility] 1994 08/03/201858 TYPE / EXAM US OB Ultrasound <14 weeks REASON FOR EXAM RLQ PAIN; R/O ECTOPIC [place] [address] [place] [address] [phone] NAME SEX PT STATUS ACCOUNT NUMBER ANNA [facility] ER [id number] ORDERING PHYSICIAN LOCATION MEDICAL RECORD NO. Daljit Alex MD ER [id number] ATTENDING PHYSICIAN DATE OF DATE OF EXAM/TIME RomuloMauraNicol NP 1995 08/03/201857 TYPE / EXAM US [...] 08/03/201933 Signed By Gibran Villa MD on 08/06/201241 Date Time CC: Nicol Sebastian; Gibran Villa MD Techn: FREST Trans Dt/Tm: Trans by: DT Prt Dt/Tm: : Total DLP = 0.00 mGy-cm : Total Radiation Dose = 0.0000 mSv Lifetime Dose: 56.7900 mSv Radiology Report August 09, 2020 9:02p m Telly Robledo MD completed [place] [id number] [place] [id number] [phone] NAME SEX PT STATUS ACCOUNT NUMBER ANNA MARIE BELTRAN REG ER [id number] ORDERING PHYSICIAN LOCATION MEDICAL RECORD NO. Mikhail Sheriff MD ER [id number] ATTENDING PHYSICIAN DATE OF DATE OF EXAM/TIME RomuloNicol YELITZA 1995 08/09/202038 TYPE / EXAM US OB Ultrasound <14 weeks REASON FOR EXAM Gen abd pain. +HCG ANNA MARIE BELTRAN [id number] 1995 ADDENDUM Clinical History/Indication for Exam: Gen [...] Trans Dt/Tm: Trans by: DT Prt Dt/Tm: [id number]: Total DLP = 0.00 mGy-cm 3993-8382: Total Radiation Dose = 0.0000 mSv Lifetime Dose: 56.7900 mSv Radiology Report August 14, 2020 11:09am Oliverio Chen MD completed [place] [id number] [place] 1587467 [phone] NAME SEX PT STATUS ACCOUNT NUMBER ANNA MARIE BELTRAN REG REF [id number] ORDERING PHYSICIAN LOCATION MEDICAL RECORD NO. Jarret Herbert MD [id number] ATTENDING PHYSICIAN DATE OF DATE OF EXAM/TIME Nicol Sebastian NP 1995 08/14/20915 TYPE / EXAM US OB Ultrasound <14 weeks REASON FOR EXAM FOLLOW UP SUBCHOR/ EARLY COMPARISON: August 19, 2020 and 2019 FINDINGS: Gestation: Single Haralson-rump length: Singlemm compatible with a Single week Single day gestational age. Yolk sac: Not seen No heart rate detected. Uterus: 8.5 x 4.6 x 7.0cm. A subchorionic hemorrhage is still seen. Average ultrasound age of 5 weeks 6 days. EDC: April 10, 2021. Haralson-rump length: 3.4mm IMPRESSION: 1. Gestational sac measurements, unchanged. 2. Subarachnoid hemorrhage is still seen. 3. Linear intraamniotic echogenicity, possibly the pole. No heart rate detected. Reported By Oliverio Chen MD on 08/14/20 1109 Signed By Oliverio Chen MD on 08/14/20 1114 Date Time CC: Nicol Sebastian; Oliverio Chen MD Techn: FREST Trans Dt/Tm: Trans by: DT Prt Dt/Tm: [id number]: Total DLP = 0.00 mGy-cm 4143-1653: Total Radiation Dose = 0.0000 mSv Lifetime Dose: 56.7900 mSv Radiology Report August 09, 2020 9:05p m Telly Robledo MD completed [address] [address] [phone] NAME SEX PT STATUS ACCOUNT NUMBER ANNA MARIE BELTRAN [facility] ER [id number] ORDERING PHYSICIAN LOCATION MEDICAL RECORD NO. Mikhail Sheriff MD ER [id number] ATTENDING PHYSICIAN DATE OF DATE OF EXAM/TIME Nicol Sebastian NP 1995 08/09/202039 TYPE / EXAM US OB Transvaginal REASON FOR EXAM PAIN [address] [address] [phone] NAME SEX PT STATUS ACCOUNT NUMBER ANNA MARIE BELTRAN [facility] ER [id number] ORDERING PHYSICIAN LOCATION MEDICAL RECORD NO. Mikhail Sheriff MD ER [id number] ATTENDING PHYSICIAN DATE OF DATE OF EXAM/TIME Nicol Sebastian NP 1994 08/09/202038 TYPE / EXAM US OB Ultrasound <14 weeks REASON FOR EXAM Gen abd pain. +HCG ANNA MARIE BELTRAN [id number] 1995 ADDENDUM Clinical History/Indication for Exam: Gen [...] MD on 08/09/202305 Trans Dt/Tm: Trans by: ALIYAH [p pg] Clinical History/Indication for Exam: Gen [...] Trans Dt/Tm: Trans by: DT Prt Dt/Tm: [id number]: Total DLP = 0.00 mGy-cm 6342-4749: Total Radiation Dose = 0.0000 mSv Lifetime Dose: 56.7900 mSv Reported By Telly Robledo MD on 08/09/202104 Signed By Telly Robledo MD on 08/14/201244 Date Time CC: Nicol Sebastian; Telly Robledo MD Techn: CARAI Trans Dt/Tm: Trans by: DT Prt Dt/Tm: [id number]: Total DLP = 0.00 mGy-cm 6699-1913: Total Radiation Dose = 0.0000 mSv Lifetime Dose: 56.7900 mSv Radiology Report August 21, 2020 10:47am Oliverio Chen MD completed [facility] [address] [address] [address] [place] 08[address]309 [phone] NAME SEX PT STATUS ACCOUNT NUMBER ANNA MARIE BELTRAN [facility] REF [id number] ORDERING PHYSICIAN LOCATION MEDICAL RECORD NO. Jarret Herbert MD [id number] ATTENDING PHYSICIAN DATE OF DATE OF EXAM/TIME Nicol Sebastian NP 1994 08/21/201016 TYPE / EXAM US OB Transvaginal REASON FOR EXAM EVAL FOR IUP COMPARISON: August 14, 2020. FINDINGS: Gestation: Single Haralson-rump length: No pole seen. Gestational sac: 13.4 [...] Trans Dt/Tm: Trans by: DT Prt Dt/Tm: [id number]: Total DLP = 0.00 mGy-cm 2270-0353: Total Radiation Dose = 0.0000 mSv Lifetime Dose: 56.7900 mSv Radiology Report August 21, 2020 10:47am Oliverio Chen MD completed [facility] [address] [place] 0867367 [phone] NAME SEX PT STATUS ACCOUNT NUMBER ANNA MARIE BELTRAN [facility] REF [id number] ORDERING PHYSICIAN LOCATION MEDICAL RECORD NO. Jarret Herbert MD [id number] ATTENDING PHYSICIAN DATE OF DATE OF EXAM/TIME Nicol Sebastian NP 1994 08/21/20 / 1017 TYPE / EXAM US OB Ultrasound <14 weeks REASON FOR EXAM Re-evaluation for subchor. COMPARISON: August 14, 2020. FINDINGS: Gestation: Single Haralson-rump length: No pole seen. Gestational sac: 13.4 [...] Nicol Sebastian; Oliverio Chen MD Techn: PAU Ocampo Dt/Tm: Trans by: DT Prt Dt/Tm: 8464-7088: Total DLP = 0.00 mGy-cm 3465-8944: Total Radiation Dose = 0.0000 mSv Lifetime Dose: 56.7900 mSv Health Concerns Health Concerns may be documented in an alternate section. Advance Directives Advance Directive Response Recorded Date/Time Advanced Directive No Fe bruary 2020 6:23pm MOLST No September 16 11:29am Advance Directives on File or in chart? No September 16, 2020 11:29am Does Patient have a DNR? No September 23, 2020 6:23pm Healthcare Proxy No Silvana zamudiolilia 2020 6:23pm Living Will No August 242020 11:29am Chief Complaint and Reason for Visit Chief [...] PAIN ABDOMINAL PAIN, BLOOD IN URINE/STOOL PAIN MICROBIOLOGY LAB MANAGER Initial Visit Hernia MICROBIOLOGY LAB MANAGER SUBCHORIONIC BLEED O02.1/SUCTION D+C 60971 ANEMBRYONIC GESTATION MICROBIOLOGY LAB MANAGER Post op care ABDOMINAL PAIN Telemed Visit MICROBIOLOGY LAB MANAGER Office Visit MICROBIOLOGY LAB MANAGER Post op care R19.7 HEADACHE, NAUSEA, DIZZY Telemed Visit E66.01 Amb Documentation ABDOMINAL PAIN Reason for Visit Anxiety Depression GERD (gastroesophageal [...] rival/Admit Date Discharge/Depart Date Provider(s) Registered Referred -Laboratory February 20, 2020 8:12am Bianka Sen MD Departed Physician/Provider Office Visit -[facility] February 20, 2020 10:22am February 20, 2020 11:42am Jose Kramer DO Registered Referred -Laboratory February 26, 2020 9:54am Jose Kramer DO Registered Referred -Ultrasound February 28, 2020 6:57am Jose Kramer DO Departed Emergency -Emergency Room ER March 02, 2020 10:34am March 02, 2020 1:45pm null Departed Emergency -Emergency Room ER March 05, 2020 2:01pm March 05, 2020 4:29pm null Departed Physician/Provider Office Visit -[facility] March 11, 2020 9:28am March 11, 2020 10:13am Trice Aj NP Departed Physician/Provider Office Visit -[facility] March 11, 2020 10:17am March 11, 2020 11:49am Pola Meadows MD Registered Referred -Laboratory March 11, 2020 11:56am Trice Aj NP Registered Referred -Ultrasound March 12, 2020 11:38am Pola Meadows MD Departed Physician/Provider Office Visit -[facility] March 12, 2020 12:22pm March 12, 2020 2:13pm Trice Aj NP Departed Emergency -Emergency Room ER March 13, 2020 9:18am March 13, 2020 10:18am null Departed Emergency -Emergency Room ER March 25, 2020 7:55am March 25, 2020 9:27am null Departed Physician/Provider Office Visit -[facility] March 25, 2020 2:51pm March 25, 2020 2:52pm Nathalie Pace Registered Referred -Lab Drop Off March 25, 2020 3:08pm Nathalie Pace Departed Physician/Provider Office Visit -[facility] March 28, 2020 7:01am March 28, 2020 7:47am Trice Aj NP Registered Outpatient -[facility] April 05, 2020 8:29am Trice Aj NP Registered Referred -Laboratory May 17, 2020 1:48pm Trice longoria NP Discharged Inpatient -[facility] May 18, 2020 12:18am May 18, 2020 2:40pm Tad Menendez MD Registered Outpatient -[facility] May 20, 2020 2:25pm Amara Garcia RN Departed Physician/Provider Office Visit -[facility] May 23, 2020 7:51am May 23, 2020 8:35am Trice Aj NP Departed Physician/Provider Office Visit -[facility] May 30, 2020 9:25am May 30, 2020 11:56am Nicol Sebastian NP Departed Physician/Provider Office Visit -[facility] June 10, 2020 8:26am June 10, 2020 8:58am Jarret Herbert MD Departed Physician/Provider Office Visit -[facility] June 28, 2020 3:47pm June 28, 2020 4:33pm Nicol Sebastian NP Departed Physician/Provider Office Visit -[facility] July 01, 2020 9:04am July 01, 2020 11:04am Nicol Sebastian NP Registered Referred -Laboratory July 01, 2020 9:47am Kiersten Schulz DO Departed Emergency -Emergency Room ER July 01, 2020 8:40pm July 02, 2020 12:20am null Departed Physician/Provider Office Visit -[facility] July 04, 2020 11:14am July 04, 2020 12:47pm Nicol Sebastian NP Departed Physician/Provider Office Visit -[facility] July 25, 2020 9:54am July 25, 2020 10:57am Nicol Sebastian NP Registered Referred -Laboratory July 30, 2020 9:45am Jaki Elias MD Departed Emergency -Emergency Room ER August 03, 2020 1:29pm August 03, 2020 8:21pm null Departed Emergency -Emergency Room ER August 09, 2020 6:19pm August 10, 2020 5:45am null Registered Referred -Ultrasound August 14, 2020 9:29am Jarret jade MD Departed Physician/Provider Office Visit -[facility] August 14, 2020 9:41am August 14, 2020 11:45am Jarret Herbert MD Departed Physician/Provider Office Visit -[facility] August 20, 2020 9:00am August 20, 2020 9:20am Barrett Sparks MD Departed Physician/Provider Office Visit -[facility] August 21, 2020 10:25am August 21, 2020 11:32am Jarret Herbert MD Registered Referred -Ultrasound August 21, 2020 11:17am Jarret jacobson MD Departed Surgical Day Care -[facility] August 22, 2020 6:20am August 22, 2020 10:05am Jarret Herbert MD Registered Outpatient -[facility] August 22, 2020 8:00am Jarret Herbert MD Departed Physician/Provider Office Visit -[facility] August 27, 2020 10:07am August 27, 2020 10:41am Jarret Herbert MD Departed Emergency -Emergency Room ER August 30, 2020 6:50pm August 30, 2020 9:08pm null Departed Physician/Provider Office Visit -[facility] September 02, 2020 10:06am September 02, 2020 4:34pm Jose Kramer DO Departed Physician/Provider Office Visit -[facility] September 03, 2020 9:28am September 03, 2020 11:05am Jarret Herbert MD Departed Physician/Provider Office Visit -[facility] September 05, 2020 11:10am September 05, 2020 11:48am Jarret Herbert MD Registered Referred -Laboratory September 05, 2020 11:47am Jarret jacobson MD Departed Emergency -Emergency Room ER September 09, 2020 10:24pm September 10, 2020 1:21am null Departed Physician/Provider Office Visit -[facility] September 11, 2020 11:04am September 11, 2020 11:59pm Jose Kramer DO Registered Clinical -Nutrition September 13, 2020 12:40pm Jose Kramer DO Registered Outpatient -[facility] September 19, 2020 8:41pm Daniela Burnham Departed Emergency -Emergency Room ER September 23, 2020 6:08pm September 23, 2020 9:16pm null Recent Diagnosis Onset Date Anxiety Depression GERD [...] Response Neil e Recorded Functional Status Complete [place] May 18, 2020 1:30am Goals Goals may be documented in an alternate section. Immunizations No Immunization Information Available Mental Status Observation Response Neil e Recorded Impairments No impairments or barriers September 23, 2020 6:09pm Cognitive Status Normal Cognition May 18, 2020 1:30am Medical Equipment No Medical Equipment Information available Insurance Providers Guarantor ANNA MARIE BELTRAN Address [address] [place] [address] Contact Info. Home Phone: Payer Policy Id Coverage Id Subscriber's Name Subscriber Id Effective Date Expiration Date [facility] [id number] ANNA MARIE BELTRAN [id number] [facility] [id number] ANNA MARIE BELTRAN [id number] [facility]ICAID [facility] [id number] ANNA MARIE BELTRAN [id number] MEDICAID [id number] ANNA MARIE BELTRAN [id number] Self Pay Self N/A Plan of Treatment f/u transition program manager needs improvement f/u mental health if condition worsens, then go to ER f/u oil gauger if condition worsens, then go to ER [...] a spontaneous miscarriage at home over the ay. She chooses to wait for the [...] aware of the patient as well. Awaiting collections director referral. Increase diet and exercise. Referral to [facility] for chronic inflammation. Elevate legs. 26 [...] . July 26, 2020 for upper GI. [employer] foods rice, applesauce, bananas, and toast. Resolved. [...] be c areful. Follow up with GI Dr on the of this month. Phenergan for [...] that she has had counseling in the [facility], but symptoms are worse at this time, d/t recent move to [place]. Will continue current meds and will refer to psych. Agency Service Representative appt with behavioral health this week. Taking [...] palpation without abnormal physical find ings. Doubt MICROBIOLOGY LAB MANAGER cause but send urine culture in case. [...] Provider Address Jose Kramer DO Email: [email or web address] Phone: [phone] [address] Jarret Herbert MD Email: [email or web address] Phone: [phone] [phone] c diff - treated with PO vancomycin Trice dimas NP Email: [email or web address] Work Phone: [facility] [address] [facility] [address] Call for an appointment to be seen in the next 48 hours Jose Kramer DO Email: [email or web address] Phone: [address] [facility] [phone] Call for an appointment for follow-up for Wednesday or Wednesday Jose Kramer DO Email: [email or web address] Phone: [address] [place] [phone] R21 - Rash and other nonspecific skin eruption September 11, 2020 Fide Hernandez PA-C [address] [facility] [address] R79.89 - Other specified abnormal findin gs of blood chemistry,N17.9 - Acute kidney failure, unspecified September 02, 2020 oil gauger Future Procedures Future procedure information is unavailable [...] Status Date of Observation Never smoker September 23, 2020 8:06 pm Observation Status Date of Observation Patient currently August 242020 Observation Status Observation Response Neil e of Response Smoking Status Never smoker September 23, 2020 8:06pm Substance Use No Februar 2020 8:06pm Assigned Sex Female Vital Signs Vital Reading [...] 02, 2020 11:34am Respiratory rate 16 /min -March 02, 2020 11:34am Oxygen saturation by Pulse [...] 12, 2020 2:07pm Respiratory rate 20 /min 08-15March 12, 2020 2:07pm Oxygen saturation by Pulse [...] 22, 2020 9:55am Respiratory rate 18 /min 12-24 August 22, 2020 9:55am Oxygen saturation by Pulse [...]
--- OUTSIDE RECORDS SUMMARY | 2020-10-18 09:42 | CCD | Continuity of Care Document ---
Author Author [facility] Address [address] [place] [address] Phone Support Name Relationship Address Phone Jose Kramer PRS [address] [place] [address] Polly Sen PRS [address] [place] [address] John Islas PRS [address] [place] [address] [place] [address] Pola Meadows [place] [address] Pola Meadows PRS [address] [place] [address] Hiren Perez PRS [address] [place] [address] Nathalie Pace PRS [address] [place] [address] Verónica hSeriff PRS [address] [place] [address] Tad Menendez PRS [address] [place] [address] Amara Garcia PRS Unknown Unavailable Nicol Sebastian PRS [address] [place] [address] Darnell Herbert PRS [address] [place] [address] Kiersten Schulz PRS [address] [place] [address] [place] [address] Daljit Alex PRS [address] [place] [address] Niels Valdez PRS [address] [place] [address] Lynn Jain PRS [address] [place] [address] Barrett Sparks PRS [address] [place] [address] Moy Perazaaac PRS [address] [place] [address] [place] [address] Sravani Balderrama PRS [address] [place] [address] Allergies, Adverse Reactions, Alerts Allergen Type Severity Reaction Last Updated Verified Status cephalexin Allergy Moder ate Hives September 11, 2020 5:04pm Yes Active latex Allergy Moderate Rash September 11, 2020 5:04pm Yes Active ondansetron Allergy Mode rate Hives September 11, 2020 5:04pm Yes Active sulfamethoxazole Allergy Moderate Hives September 11, 2020 5:04pm Yes Active trimethoprim Allergy Mod erate Hives September 11, 2020 5:04pm Yes Active Medications Medication Status Dose Units [...] 20 MG PO 2 Times Per Day 90 February 20, 2020 11:34am February 26, 2020 [...] Drospirenone-Ethinyl Estradiol (Ruma (28)) 3-0.03 mg tablet Active 1 TAB PO daily August 27, 2020 10:45am Metronidazole (Flagyl) 500 mg tablet Activ e 500 MG PO Three times a day September 05, 2020 11:45am Metoclopramide Hcl (Reglan) 10 mg tablet Active 10 MG PO b efore meals September 05, 2020 11:52am administer 30 minutes before meals Meclizine Discontinued [...] 09, 2020 6:34pm August 272020 10:28am Sertraline Active 100 MG PO daily August 22, 2020 6:55am Budesonide-Formoterol Active 2 PUFFS IH 2 Times Per Day August 22, 2020 6:55am Metoprolol Succinate Discontinued [...] 2020 8 :57pm with iron Ciprofloxacin Hcl Active 500 MG PO Every 12 Hours September 10, 2020 12:54am Lactobacillus Combination No.4 Active 3000 MMU CELLS PO 2 Times Per Day September 10, 2020 12:56am administer with a meal Buspirone Discontinued 7 .5 MG PO 2 [...] 8:31am August 22, 2020 6:55am Metoprolol Succinate Active 50 MG PO daily September 03, 2020 11:13am Sennosides-Docusate Sodium (Senna With D ocusate Sodium) 8.6-50 mg tablet Active 1 TAB-CAP PO daily September 11, 2020 2:13pm Problems Active Problems Medical Problem Onset Date [...] Procedure Date Performed Status Urine Culture September 09, 2020 completed Urine [...] July 01, 2020 completed SARS-CoV-2 (PCR) Interpretation [facility] [address] Abd/pel w/ contrast April 7:09pm completed Urine Culture May 18, 2020 completed Respiratory Panel (PCR) May 182019 completed Gastrointestinal Tract Panel (PCR) S epte2019 completed Xray Chest 2 view PA/LAT March [...] Comment Performing Site White Blood Count September 09, 2020 11:50pm 10.6 10e3/uL 4.45-10.71 [facility], [address] [place] [address] 28369 White Blood Count September 05, 2020 12:03pm 10.3 10e3/uL 4.45-10.71 [facility], [address] [place] [address] 38476 White Blood Count August 30, 2020 8:15pm 11.3 10e3/uL 4.45-10.71 [facility], [address] [place] [address] White Blood Count August 09 0 7:35pm 9.9 10e3/uL 4.45-10.71 [facility], [address] [place] [address] 88063 White Blood Count August 14 0 9:31am 9.8 10e3/uL 4.45-10.71 [facility], [address] [place] [address] White Blood Count August 03 0 2:35pm 8.6 10e3/uL 4.45-10.71 [facility], [address] [place] [address] 98008 White Blood Count July 01, 2020 9:40p m 11.2 10e3/uL 4.45-10.71 [facility], [address] [place] [address] 40533 White Blood Count May 18 6:17am 9.3 10e3/uL 4.45-10.71 [facility], [address] [place] [address] 29691 White Blood Count March 25, 2020 8:11am 10.8 10e3/uL 4.45-10.71 [facility], [address] [place], [place] [id number] White Blood Count March 11, 2020 12:14pm 11.3 10e3/uL 4.45-10.71 [facility], [address] [place], [place] [id number] White Blood Count March 02, 2020 11:00am 10.3 10e3/uL 4.45-10.71 [facility], [address] [place] [address] 30303 White Blood Count February 26, 2020 10:02am 9.8 10e3/uL 4.45-10.71 [facility], [address] [place] [address] 61437 White Blood Count February 20, 2020 8:35am 8.8 10e3/uL 4.45-10.71 [facility], [address] [place] [address] 50914 Red Blood Count September 09, 2020 11:50pm 4.49 10e6/uL 4.20-5.40 [facility], [address] [place] [address] 53554 Red Blood Count September 05, 2020 12:03pm 4.38 10e6/uL 4.20-5.40 [facility], [address] [place] [address] 13377 Red Blood Count August 30, 2020 8:15pm 4.26 10e6/uL 4.20-5.40 [facility], [address] [place] [address] 19018 Red Blood Count August 09, 2020 7:35pm 4.49 10e6/uL 4.20-5.40 [facility], [address] [place] [address] 76127 Red Blood Count August 14, 2020 9:31am 4.57 10e6/uL 4.20-5.40 [facility], [address] [place] [address] 82000 Red Blood Count August 03, 2020 2:35pm 4.47 10e6/uL 4.20-5.40 [facility], [address] [place] [address] 37736 Red Blood Count July 01, 2020 9:40pm 4.51 10e6/uL 4.20-5.40 [facility], [address] [place] [address] 09940 Red Blood Count May 18, 2020 6:17a m 4.10 10e6/uL 4.20-5.40 [facility], [address] [place] [address] 08511 Red Blood Count March 25, 2020 8:11am 4.25 10e6/uL 4.20-5.40 [facility], [address] [place] [address] 51170 Red Blood Count March 11, 2020 12:14pm 4.58 10e6/uL 4.20-5.40 [facility], [address] [place] [address] 39201 Red Blood Count March 02, 2020 11:00am 4.52 10e6/uL 4.20-5.40 [facility], [address] [place], [place] [id number] Red Blood Count February 26, 2020 10:02am 4.84 10e6/uL 4.20-5.40 [facility], [address] [place] [address] Red Blood Count February 20, 2020 8:35am 5.02 10e6/uL 4.20-5.40 [facility], [address] [place] [address] Hemoglobin September 09, 2020 11:50pm 11.4 g/dL 10.7-15.4 [facility], [address] [place] [address] Hemoglobin September 05, 2020 12:03pm 10.8 g/dL 10.7-15.4 [facility], [address] [place] [address] 78967 Hemoglobin August 30, 2020 8:15pm 10.5 g/dL 10.7-15.4 [facility], [address] [place] [address] 90138 Hemoglobin August 09, 2020 7:35pm 11.4 g/dL 10.7-15.4 [facility], [address] [place] [address] 78624 Hemoglobin August 14, 2020 9:31am 11.4 g/dL 10.7-15.4 [facility], [address] [place] [address] Hemoglobin August 03, 2020 2:35pm 11.5 g/dL 10.7-15.4 [facility], [address] [place] [address] 40714 Hemoglobin July 01, 2020 9:40pm 11.8 g/dL 10.7-15.4 [facility], [address] [place] [address] Hemoglobin May 18, 2020 6:17am 10.9 g/dL 10.7-15.4 [facility], [address] [place] [address] 30353 Hemoglobin March 25, 2020 8:11am 11.5 g/dL 10.7-15.4 [facility], [address] [place] [address] Hemoglobin March 11, 2020 12:14pm 12.4 g/dL 10.7-15.4 [facility], [address] [place] [address] 19145 Hemoglobin March 02, 2020 11:00am 12.1 g/dL 10.7-15.4 [facility], [address] [place] [address] 44710 Hemoglobin February 26, 2020 10:02am 13.0 g/dL 10.7-15.4 [facility], [address] [place] [address] 91642 Hemoglobin February 20, 2020 8:35am 13.4 g/dL 10.7-15.4 [facility], [address] [place] [address] 42989 Hematocrit September 09, 2020 11:50pm 35.9 % 37-47 [facility], [address] [place] [address] 65865 Hematocrit September 05, 2020 12:03pm 34.8 % 37-47 [facility], [address] [place] [address] 35935 Hematocrit August 30, 2020 8:15pm 34.4 % 37-47 [facility], [address] [place] [address] 34280 Hematocrit August 09, 2020 7:35pm 36.1 % 37-47 [facility], [address] [place] [address] 38551 Hematocrit August 14, 2020 9:31am 36.3 % 37-47 [facility], [address] [place] [address] 06024 Hematocrit August 03, 2020 2:35pm 36.1 % 37-47 [facility], [address] [place] [address] 96673 Hematocrit July 01, 2020 9:40pm 36.6 % 37-47 [facility], [address] [place] [address] 85597 Hematocrit May 18, 2020 6:17am 34.1 % 37-47 [facility], [address] [place] [address] 20764 Hematocrit March 25, 2020 8:11am 34.7 % 37-47 [facility], [address] [place] [address] 60725 Hematocrit March 11, 2020 12:14pm 37.2 % 37-47 [facility], [address] [place] [address] 12011 Hematocrit March 02, 2020 11:00am 36.9 % 37-47 [facility], [address] [place] [address] 29427 Hematocrit February 26, 2020 10:02am 39.4 % 37-47 [facility], [address] [place] [address] 18067 Hematocrit February 20, 2020 8:35am 41.0 % 37-47 [facility], [address] [place] [address] 34699 Mean Corpuscular Volume August 11:50pm 80.0 fl 80-96 [facility], [address] [place] [address] 85048 Mean Corpuscular Volume August 12:03pm 79.5 fl 80-96 [facility], [address] [place] [address] 40174 Mean Corpuscular Volume August 30, 2020 8:15pm 80.8 fl 80-96 [facility], [address] [place] [address] 27400 Mean Corpuscular Volume July h2019 7:35pm 80.4 fl 80-96 [facility], [address] [place] [address] 78649 Mean Corpuscular Volume July d2019 9:31am 79.4 fl 80-96 [facility], [address] [place] [address] 04787 Mean Corpuscular Volume July h2019 2:35pm 80.8 fl 80-96 [facility], [address] [place] [address] 77691 Mean Corpuscular Volume June 9:40pm 81.2 fl 80-96 [facility], [address] [place] [address] 83067 Mean Corpuscular Volume May 182019 6:17am 83.2 fl 80-96 [facility], [address] [place] [address] 00547 Mean Corpuscular Volume March 25, 2020 8:11am 81.6 fl 80-96 [facility], [address] [place] [address] 02612 Mean Corpuscular Volume March 11 020 12:14pm 81.2 fl 80-96 [facility], [address] [place] [address] 32258 Mean Corpuscular Volume March 02, 020 11:00am 81.6 fl 80-96 [facility], [address] [place] [address] 20730 Mean Corpuscular Volume February 25 10:02am 81.4 fl 80-96 [facility], [address] [place] [address] 28341 Mean Corpuscular Volume February 19 020 8:35am 81.7 fl 80-96 [facility], [address] [place] [address] 95569 Mean Corpuscular Hemoglobin September 09, 2020 11:50pm 25.4 pg 27-31 [facility], [address] [place] [address] 41687 Mean Corpuscular Hemoglobin September 05, 2020 12:03pm 24.7 pg 27-31 [facility], [address] [place] [address] 75851 Mean Corpuscular Hemoglobin August 30, 2020 8:15pm 24.6 pg 27-31 [facility], [address] [place] [address] 69582 Mean Corpuscular Hemoglobin August 09, 2020 7:35pm 25.4 pg 27-31 [facility], [address] [place] [address] 22334 Mean Corpuscular Hemoglobin August 14, 2020 9:31am 24.9 pg 27-31 [facility], [address] [place] [address] 71046 Mean Corpuscular Hemoglobin August 03, 2020 2:35pm 25.7 pg 27-31 [facility], [address] [place] [address] 07644 Mean Corpuscular Hemoglobin July 01, 2020 9:40pm 26.2 pg 27-31 [facility], [address] [place] [address] 04817 Mean Corpuscular Hemoglobin 2019 6:17am 26.6 pg 27-31 [facility], [address] [place] [address] 67269 Mean Corpuscular Hemoglobin March 252019 8:11am 27.1 pg 27-31 [facility], [address] [place] [address] 50321 Mean Corpuscular Hemoglobin February 12:14pm 27.1 pg 27-31 [facility], [address] [place] [address] 47956 Mean Corpuscular Hemoglobin February 11 h2019 11:00am 26.8 pg 27-31 [facility], [address] [place] [address] 59726 Mean Corpuscular Hemoglobin February 10:02am 26.9 pg 27-31 [facility], [address] [place] [address] 74224 Mean Corpuscular Hemoglobin January 8:35am 26.7 pg 27-31 [facility], [address] [place] [address] 72846 Mean Corpuscular Hemoglobin Concent September 09, 2020 11:50pm 31.8 g/dl 33-37 [facility], [address] [place] [address] 22664 Mean Corpuscular Hemoglobin Concent September 05, 2020 12:03pm 31.0 g/dl [address] [place] [address] [facility]OR[facility], [address] [place] [address] 16716 Mean Corpuscular Hemoglobin Concent August 30, 2020 8:15pm 30.5 g/dl [address] [place] [address] [facility]ORATORY, [address] [place] [address] 60729 Mean Corpuscular Hemoglobin Concent August 09, 2020 7:35pm 31.6 g/dl [address] [place] [address] [facility]ORATORY, [address] [place] [address] 69128 Mean Corpuscular Hemoglobin Concent August 14, 2020 9:31am 31.4 g/dl [address] [place] [address] [facility]ORAT[facility], [address] [place] [address] 48630 Mean Corpuscular Hemoglobin Concent August 03, 2020 2:35pm 31.9 g/dl [address] [place] [address] [facility]ORATORY, [address] [place] [address] 76878 Mean Corpuscular Hemoglobin Concent July 01, 2020 9:40pm 32.2 g/dl [address] [place] [address] [facility]ORATORY, [address] [place] [address] 41090 Mean Corpuscular Hemoglobin Concent May 18, 2020 6:17am 32.0 g/dl [address] [place] [address] [facility]OR[facility]ORY, [address] [place] [address] 91408 Mean Corpuscular Hemoglobin Concent March 25, 2020 8:11am 33.1 g/dl [address] [place] [address] [facility]ORATORY, [address] [place] [address] 84149 Mean Corpuscular Hemoglobin Concent March 11, 2020 12:14pm 33.3 g/dl [address] [place] [address] [facility]ORATORY, [address] [place] [address] 75963 Mean Corpuscular Hemoglobin Concent March 02, 2020 11:00am 32.8 g/dl [address] [place] [address] [facility]ORATORY, [address] [place] [address] 79665 Mean Corpuscular Hemoglobin Concent February 26, 2020 10:02am 33.0 g/dl [address] [place] [address] [facility]ORATORY, [address] [place] [address] 24965 Mean Corpuscular Hemoglobin Concent February 20, 2020 8:35am 32.7 g/dl [address] [place] [address] [facility]ORATORY, [address] [place] [address] 25575 Red Cell Distribution Width September 09, 2020 11:50pm 16 % 11-15 [facility], [address] [place] [address] Red Cell Distribution Width September 05, 2020 12:03pm 16 % 11-15 [facility], [address] [place] [address] Red Cell Distribution Width August 30, 2020 8:15pm 15 % 11-15 [facility], [address] [place] [address] Red Cell Distribution Width August 09, 2020 7:35pm 14 % 11-15 [facility], [address] [place] [address] Red Cell Distribution Width August 14, 2020 9:31am 15 % 11-15 [facility], [address] [place] [address] Red Cell Distribution Width August 03, 2020 2:35pm 14 % 11-15 [facility], [address] [place] [address] Red Cell Distribution Width July 01, 2020 9:40pm 14 % 11-15 [facility], [address] [place] [address] 39429 Red Cell Distribution Width 2019 6:17am 14 % 11-15 [facility], [address] [place] [address] 46555 Red Cell Distribution Width March 252019 8:11am 15 % 11-15 [facility], [address] [place] [address] 54422 Red Cell Distribution Width February 12:14pm 15 % 11-15 [facility], [address] [place] [address] Red Cell Distribution Width February 11:00am 14 % 11-15 [facility], [address] [place] [address] 41762 Red Cell Distribution Width February 10:02am 14 % 11-15 [facility], [address] [place] [address] Red Cell Distribution Width January 8:35am 15 % 11-15 [facility], [address] [place] [address] 65939 Platelet Count September 09, 2020 11:50pm 392 10e3/ul 130-472 [facility], [address] [place] [address] Platelet Count September 05, 2020 12:03pm 417 10e3/ul 130-472 [facility], [address] [place] [address] 25835 Platelet Count August 30, 2020 8:15pm 422 10e3/ul 130-472 [facility], [address] [place] [address] 61942 Platelet Count August 09, 2020 7:35pm 423 10e3/ul 130-472 [facility], [address] [place] [address] 47797 Platelet Count August 14, 2020 9:31am 429 10e3/ul 130-472 [facility], [address] [place] [address] 10504 Platelet Count August 03, 2020 2:35pm 372 10e3/ul 130-472 [facility], [address] [place] [address] 67160 Platelet Count July 01, 2020 9:40pm 392 10e3/ul 130-472 [facility], [address] [place] [address] 57500 Platelet Count May 18, 2020 6:17am 332 10e3/ul 130-472 [facility], [address] [place] [address] 96196 Platelet Count March 25, 2020 8:11am 395 10e3/ul 130-472 [facility], [address] [place] [address] 34541 Platelet Count March 11, 2020 12:14pm 460 10e3/ul 130-472 [facility], [address] [place] [address] 32119 Platelet Count March 02, 2020 11:00am 410 10e3/ul 130-472 [facility], [address] [place] [address] 88342 Platelet Count February 26, 2020 10:02am 436 10e3/ul 130-472 [facility], [address] [place] [address] 04835 Platelet Count February 20, 2020 8:35am 479 10e3/ul 130-472 [facility], [address] [place] [address] 82906 Mean Platelet Volume September 09, 2 021 11:50pm 8.6 fl 9.1-13.1 [facility], [address] [place] [address] Mean Platelet Volume September 05, 2 021 12:03pm 8.6 fl 9.1-13.1 [facility], [address] [place] [address] Mean Platelet Volume August 30 8:15pm 8.7 fl 9.1-13.1 [facility], [address] [place] [address] 89912 Mean Platelet Volume August 09, 2020 7:35pm 8.9 fl 9.1-13.1 [facility], [address] [place] [address] 54288 Mean Platelet Volume August 14, 2020 9:31am 8.9 fl 9.1-13.1 [facility], [address] [place] [address] 59558 Mean Platelet Volume August 03, 2020 2:35pm 9.0 fl 9.1-13.1 [facility], [address] [place] [address] 68104 Mean Platelet Volume July 01, 9:40pm 8.6 fl 9.1-13.1 [facility], [address] [place] [address] 11229 Mean Platelet Volume May 18, 2020 6:17am 8.6 fl 9.1-13.1 [facility], [address] [place] [address] 10146 Mean Platelet Volume March 25 0 8:11am 8.3 fl 9.1-13.1 [facility], [address] [place] [address] 83574 Mean Platelet Volume March 11, 2020 12:14pm 8.4 fl 9.1-13.1 [facility], [address] [place] [address] 50482 Mean Platelet Volume March 02, 2020 11:00am 8.6 fl 9.1-13.1 [facility], [address] [place] [address] 54045 Mean Platelet Volume February 26, 2020 10:02a m 8.7 fl 9.1-13.1 [facility], [address] [place] [address] 44055 Mean Platelet Volume February 20, 2020 8:35a m 8.7 fl 9.1-13.1 [facility], [address] [place] [address] 20487 Neutrophils (%) (Auto) September 09, 2020 11:50pm 66.3 % [address] [facility], [address] [place] [address] 75391 Neutrophils (%) (Auto) September 05, 2020 12:03pm 74.5 % [address] [place] [address] LABORATORY, [address] [place] [address] 34594 Neutrophils (%) (Auto) August 30, 2020 8:15pm 69.3 % [address] [place] [address] LABORATORY, [address] [place] [address] 89743 Neutrophils (%) (Auto) July 7:35pm 71.3 % [address] [place] [address] LABORATORY, [address] [place] [address] 28070 Neutrophils (%) (Auto) July 9:31am 63.7 % [address] [place] [address] LABORATORY, [address] [place] [address] 36275 Neutrophils (%) (Auto) July 2:35pm 68.8 % [address] [place] [address] LABORATORY, [address] [place] [address] 64227 Neutrophils (%) (Auto) July 01, 2020 9:40pm 66.3 % [address] [place] [address] LABORATORY, [address] [place] [address] 45846 Neutrophils (%) (Auto) April 6:17am 66.1 % [address] [place] [address] LABORATORY, [address] [place] [address] 67611 Neutrophils (%) (Auto) March 25 8:11am 58.4 % [address] [place] [address] LABORATORY, [address] [place] [address] 85815 Neutrophils (%) (Auto) March 11 12:14pm 72.2 % [address] [place] [address] LABORATORY, [address] [place] [address] 78994 Neutrophils (%) (Auto) March 02 11:00am 65.4 % [address] [place] [address] LABORATORY, [address] [place] [address] 38640 Neutrophils (%) (Auto) February 25 0 10:02am 62.6 % [address] [place] [address] LABORATORY, [address] [place] [address] 41260 Neutrophils (%) (Auto) February 19 8:35am 62.4 % [address] [place] [address] LABORATORY, [address] [place] [address] [id number] Absolute Neutrophil September 09 11:50pm 7.0 # 1.7-7.6 [facility], [address] [place] [address] [id number] Absolute Neutrophil September 05 12:03pm 7.7 # 1.7-7.6 [facility], [address] [place] [address] [id number] Absolute Neutrophil August 30 8:15pm 7.8 # 1.7-7.6 [facility], [address] [place] [address] Absolute Neutrophil August 09, 020 7:35pm 7.0 # 1.7-7.6 [facility], [address] [place] [address] Absolute Neutrophil August 14, 020 9:31am 6.2 # 1.7-7.6 [facility], [address] [place] [address] Absolute Neutrophil August 03 020 2:35pm 5.9 # 1.7-7.6 [facility], [address] [place] [address] Absolute Neutrophil July 01 9:40pm 7.5 # 1.7-7.6 [facility], [address] [place] [address] Absolute Neutrophil May 18, 2020 6:17am 6.1 # 1.7-7.6 [facility], [address] [place] [address] [id number] Absolute Neutrophil March 25, 2020 8:11a m 6.3 # 1.7-7.6 [facility], [address] [place] [address] [id number] Absolute Neutrophil March 11, 2020 12:14p m 8.1 # 1.7-7.6 [facility], [address] [place] [address] [id number] Absolute Neutrophil March 02, 2020 11:00a m 6.7 # 1.7-7.6 [facility], [address] [place] [address] [id number] Absolute Neutrophil February 26, 2020 10:02am 6.1 # 1.7-7.6 [facility], [address] [place] [address] [id number] Absolute Neutrophil February 20, 2020 8:35am 5.5 # 1.7-7.6 [facility], [address] [place] [address] [id number] Lymphocytes (%) (Auto) September 09, 2020 11:50pm 23.0 % 14-46 [facility], [address] [place] [address] [id number] Lymphocytes (%) (Auto) September 05, 2020 12:03pm 17.6 % 14-46 [facility], [address] [place] [address] [id number] Lymphocytes (%) (Auto) August 30, 2020 8:15pm 20.7 % 14-46 [facility], [address] [place] [address] [id number] Lymphocytes (%) (Auto) July 7:35pm 19.4 % [address] [facility], [address] [place] [address] 15165 Lymphocytes (%) (Auto) July 9:31am 25.9 % [address] [facility], [address] [place] [address] 59510 Lymphocytes (%) (Auto) July 2:35pm 20.2 % [address] [facility], [address] [place] [address] 15097 Lymphocytes (%) (Auto) July 01, 2020 9:40pm 21.4 % [address] [facility], [address] [place] [address] 36920 Lymphocytes (%) (Auto) April 6:17am 22.8 % [address] [facility], [address] [place] [address] 59322 Lymphocytes (%) (Auto) March 25 8:11am 30.4 % [address] [facility], [address] [place] [address] 18738 Lymphocytes (%) (Auto) March 11 12:14pm 19.0 % [address] [facility], [address] [place] [address] 77966 Lymphocytes (%) (Auto) March 02 11:00am 23.6 % [address] [facility], [address] [place] [address] 90357 Lymphocytes (%) (Auto) February 25 0 10:02am 25.4 % [address] [facility], [address] [place] [address] 02450 Lymphocytes (%) (Auto) February 19 20 8:35am 26.5 % [address] [facility], [address] [place] [address] 63578 Lymphocytes # (Auto) September 09 11:50pm 2.4 # 0.6-4.6 [facility], [address] [place] [address] 17316 Lymphocytes # (Auto) September 05 12:03pm 1.8 # 0.6-4.6 [facility], [address] [place] [address] 40060 Lymphocytes # (Auto) August 30 8:15pm 2.3 # 0.6-4.6 [facility], [address] [place] [address] 07483 Lymphocytes # (Auto) August 09, 2020 7:35pm 1.9 # 0.6-4.6 [facility], [address] [place] [address] 05357 Lymphocytes # (Auto) August 14, 2020 9:31am 2.5 # 0.6-4.6 [facility], [address] [place] [address] 18668 Lymphocytes # (Auto) August 03, 2020 2:35pm 1.7 # 0.6-4.6 [facility], [address] [place] [address] 04170 Lymphocytes # (Auto) July 01 020 9:40pm 2.4 # 0.6-4.6 [facility], [address] [place] [address] 51867 Lymphocytes # (Auto) May 18, 2020 6:17am 2.1 # 0.6-4.6 [facility], [address] [place] [address] 97935 Lymphocytes # (Auto) March 25 0 8:11am 3.3 # 0.6-4.6 [facility], [address] [place] [address] 71422 Lymphocytes # (Auto) March 11, 2020 12:14pm 2.1 # 0.6-4.6 [facility], [address] [place] [address] 67833 Lymphocytes # (Auto) March 02, 2020 11:00am 2.4 # 0.6-4.6 [facility], [address] [place] [address] 04200 Lymphocytes # (Auto) February 26, 2020 10:02a m 2.5 # 0.6-4.6 [facility], [address] [place] [address] 38226 Lymphocytes # (Auto) February 20, 2020 8:35a m 2.3 # 0.6-4.6 [facility], [address] [place] [address] 70306 Monocytes (%) (Auto) September 09, 021 11:50pm 7.1 % 4-12 [facility], [address] [place] [address] 15148 Monocytes (%) (Auto) September 05, 021 12:03pm 5.4 % 4-12 [facility], [address] [place] [address] 10624 Monocytes (%) (Auto) August 30 8:15pm 6.8 % 4-12 [facility], [address] [place] [address] 10290 Monocytes (%) (Auto) August 09, 2020 7:35pm 7.0 % [address] [facility], [address] [place] [address] 01400 Monocytes (%) (Auto) August 14, 2020 9:31am 6.9 % [address] [facility], [address] [place] [address] 99231 Monocytes (%) (Auto) August 03, 2020 2:35pm 8.3 % 412 [facility], [address] [place] [address] 88958 Monocytes (%) (Auto) July 01 020 9:40pm 8.9 % [address] [facility], [address] [place] [address] 64268 Monocytes (%) (Auto) May 18, 2020 6:17am 8.7 % [address] [facility], [address] [place] [address] 38370 Monocytes (%) (Auto) March 25 0 8:11am 7.7 % [address] [facility], [address] [place] [address] 13003 Monocytes (%) (Auto) March 11, 2020 12:14pm 5.5 % [address] [facility], [address] [place] [address] 29814 Monocytes (%) (Auto) March 02, 2020 11:00am 7.8 % [address] [facility], [address] [place] [address] 50663 Monocytes (%) (Auto) February 26, 2020 10:02a m 8.2 % [address] [facility], [address] [place] [address] 01764 Monocytes (%) (Auto) February 20, 2020 8:35a m 8.0 % [address] [facility], [address] [place] [address] 85903 Monocytes # September 09, 2020 11:50pm 0.8 # 0.2-1.2 [facility], [address] [place] [address] 38269 Monocytes # September 05, 2020 12:03pm 0.6 # 0.2-1.2 [facility], [address] [place] [address] 49599 Monocytes # August 30, 2020 8:15pm 0.8 # 0.2-1.2 [facility], [address] [place] [address] 38313 Monocytes # August 09, 2020 7:35pm 0.7 # 0.2-1.2 [facility], [address] [place] [address] 21017 Monocytes # August 14, 2020 9:31am 0.7 # 0.2-1.2 [facility], [address] [place] [address] 48135 Monocytes # August 03, 2020 2:35pm 0.7 # 0.2-1.2 [facility], [address] [place] [address] 21111 Monocytes # July 01, 2020 9:40pm 1.0 # 0.2-1.2 [facility], [address] [place] [address] 37259 Monocytes # May 18, 2020 6:17am 0.8 # 0.2-1.2 [facility], [address] [place] [address] 67939 Monocytes # March 25, 2020 8:11am 0.8 # 0.2-1.2 [facility], [address] [place] [address] 31523 Monocytes # March 11, 2020 12:14pm 0.6 # 0.2-1.2 [facility], [address] [place] [address] 70159 Monocytes # March 02, 2020 11:00am 0.8 # 0.2-1.2 [facility], [address] [place] [address] 51159 Monocytes # February 26, 2020 10:02am 0.8 # 0.2-1.2 [facility], [address] [place] [address] 71481 Monocytes # February 20, 2020 8:35am 0.7 # 0.2-1.2 [facility], [address] [place] [address] 97733 Eosinophils (%) (Auto) September 09, 2020 11:50pm 2.9 % 0-7 [facility], [address] [place] [address] 43681 Eosinophils (%) (Auto) September 05, 2020 12:03pm 1.8 % 0-7 [facility], [address] [place] [address] 74556 Eosinophils (%) (Auto) August 30, 2020 8:15pm 2.4 % 0-7 [facility], [address] [place] [address] 15273 Eosinophils (%) (Auto) July 7:35pm 1.8 % 0-7 [facility], [address] [place] [address] 32438 Eosinophils (%) (Auto) July 9:31am 3.0 % 0-7 [facility], [address] [place] [address] 27236 Eosinophils (%) (Auto) July 2:35pm 2.2 % 0-7 [facility], [address] [place] [address] 47934 Eosinophils (%) (Auto) July 01, 2020 9:40pm 2.7 % 0-7 [facility], [address] [place] [address] 91014 Eosinophils (%) (Auto) April 6:17am 1.9 % 0-7 [facility], [address] [place] [address] 65501 Eosinophils (%) (Auto) March 25 020 8:11am 2.7 % 0-7 [facility], [address] [place] [address] 75491 Eosinophils (%) (Auto) March 11 12:14pm 2.5 % 0-7 [facility], [address] [place] [address] 04994 Eosinophils (%) (Auto) March 02 11:00am 2.4 % 0-7 [facility], [address] [place] [address] 88702 Eosinophils (%) (Auto) February 25 0 10:02am 3.1 % 0-7 [facility], [address] [place] [address] 14673 Eosinophils (%) (Auto) February 19 20 8:35am 2.6 % 0-7 [facility], [address] [place] [address] 17434 Absolute Eosinophils (CBC) August 232020 11:50pm 0.3 # 0.0-0.5 [facility], [address] [place] [address] 35736 Absolute Eosinophils (CBC) August 232020 12:03pm 0.2 # 0.0-0.5 [facility], [address] [place] [address] 10203 Absolute Eosinophils (CBC) August 302020 8:15pm 0.3 # 0.0-0.5 [facility], [address] [place] [address] 35951 Absolute Eosinophils (CBC) August 09, 2020 7:35pm 0.2 # 0.0-0.5 [facility], [address] [place] [address] 65463 Absolute Eosinophils (CBC) August 14, 2020 9:31am 0.3 # 0.0-0.5 [facility], [address] [place] [address] Absolute Eosinophils (CBC) August 03, 2020 2:35pm 0.2 # 0.0-0.5 [facility], [address] [place] [address] Absolute Eosinophils (CBC) July 01, 2020 9:40pm 0.3 # 0.0-0.5 [facility], [address] [place] [address] Absolute Eosinophils (CBC) May 18, 2020 6:17am 0.2 # 0.0-0.5 [facility], [address] [place] [address] Absolute Eosinophils (CBC) March 8:11am 0.3 # 0.0-0.5 [facility], [address] [place] [address] Absolute Eosinophils (CBC) February 12:14pm 0.3 # 0.0-0.5 [facility], [address] [place] [address] Absolute Eosinophils (CBC) February 11:00am 0.3 # 0.0-0.5 [facility], [address] [place] [address] Absolute Eosinophils (CBC) February 26, 2020 10:02am 0.3 # 0.0-0.5 [facility], [address] [place] [address] Absolute Eosinophils (CBC) January 8:35am 0.2 # 0.0-0.5 [facility], [address] [place] [address] Basophils (%) (Auto) September 09 021 11:50pm 0.3 % 0.4-1.3 [facility], [address] [place] [address] 23410 Basophils (%) (Auto) September 05 021 12:03pm 0.4 % 0.4-1.3 [facility], [address] [place] [address] 51282 Basophils (%) (Auto) August 30 8:15pm 0.4 % 0.4-1.3 [facility], [address] [place] [address] 89208 Basophils (%) (Auto) August 09, 2020 7:35pm 0.3 % 0.4-1.3 [facility], [address] [place] [address] 55050 Basophils (%) (Auto) August 14, 2020 9:31am 0.3 % 0.4-1.3 [facility], [address] [place] [address] 23607 Basophils (%) (Auto) August 03, 2020 2:35pm 0.3 % 0.4-1.3 [facility], [address] [place] [address] 59682 Basophils (%) (Auto) July 01 9:40pm 0.4 % 0.4-1.3 [facility], [address] [place] [address] 10525 Basophils (%) (Auto) May 18, 2020 6:17am 0.3 % 0.4-1.3 [facility], [address] [place] [address] 48097 Basophils (%) (Auto) March 25 0 8:11am 0.5 % 0.4-1.3 [facility], [address] [place] [address] 80245 Basophils (%) (Auto) March 11, 2020 12:14pm 0.4 % 0.4-1.3 [facility], [address] [place] [address] 62482 Basophils (%) (Auto) March 02, 2020 11:00am 0.5 % 0.4-1.3 [facility], [address] [place] [address] 22280 Basophils (%) (Auto) February 26, 2020 10:02a m 0.4 % 0.4-1.3 [facility], [address] [place] [address] 12758 Basophils (%) (Auto) February 20, 2020 8:35a m 0.3 % 0.4-1.3 [facility], [address] [place] [address] 03081 Absolute Basophils (CBC) August 11:50pm 0.0 # 0.0-0.2 [facility], [address] [place] [address] 73494 Absolute Basophils (CBC) August 12:03pm 0.0 # 0.0-0.2 [facility], [address] [place] [address] 37274 Absolute Basophils (CBC) August 8:15pm 0.1 # 0.0-0.2 [facility], [address] [place] [address] 02624 Absolute Basophils (CBC) August 092019 7:35pm 0.0 # 0.0-0.2 [facility], [address] [place] [address] 50799 Absolute Basophils (CBC) August 142019 9:31am 0.0 # 0.0-0.2 [facility], [address] [place] [address] Absolute Basophils (CBC) August 032019 2:35pm 0.0 # 0.0-0.2 [facility], [address] [place] [address] Absolute Basophils (CBC) June 9:40pm 0.0 # 0.0-0.2 [facility], [address] [place] [address] Absolute Basophils (CBC) April 242019 6:17am 0.0 # 0.0-0.2 [facility], [address] [place], [place] [id number] Absolute Basophils (CBC) March 25, 2020 8:11am 0.1 # 0.0-0.2 [facility], [address] [place] [address] Absolute Basophils (CBC) March 11, 2020 12:14pm 0.0 # 0.0-0.2 [facility], [address] [place] [address] Absolute Basophils (CBC) March 02, 2020 11:00am 0.1 # 0.0-0.2 [facility], [address] [place] [address] Absolute Basophils (CBC) February 25 10:02am 0.0 # 0.0-0.2 [facility], [address] [place] [address] 92147 Absolute Basophils (CBC) February 20, 2020 8:35am 0.0 # 0.0-0.2 [facility], [address] [place] [address] 60932 Immature Granulocyte % (Auto) Terrell y 2020 11:50pm 0.4 % 0-2 [facility], [address] [place] [address] Immature Granulocyte % (Auto) Auguar y 2020 12:03pm 0.3 % 0-2 [facility], [address] [place] [address] 92166 Immature Granulocyte % (Auto) Auguar y 2020 8:15pm 0.4 % 0-2 [facility], [address] [place] [address] 30385 Immature Granulocyte % (Auto) [facility] [place] 7:35pm 0.2 % 0-2 [facility], [address] [place] [address] 63772 Immature Granulocyte % (Auto) [facility] [place] 9:31am 0.2 % 0-2 [facility], [address] [place] [address] 69545 Immature Granulocyte % (Auto) [facility] [place] [place] 2:35pm 0.2 % 0-2 [facility], [address] [place] [address] 70269 Immature Granulocyte % (Auto) [facility] 2019 9:40pm 0.3 % 0-2 [facility], [address] [place] [address] 26296 Immature Granulocyte % (Auto) 2019 6:17am 0.2 % 0-2 [facility], [address] [place] [address] 37693 Immature Granulocyte % (Auto) March 25, 2020 8:11am 0.3 % 0-2 [facility], [address] [place] [address] 92672 Immature Granulocyte % (Auto) February 212019 12:14pm 0.4 % 0-2 [facility], [address] [place] [address] 40467 Immature Granulocyte % (Auto) February 202019 11:00am 0.3 % 0-2 [facility], [address] [place] [address] 81402 Immature Granulocyte % (Auto) February 252019 10:02am 0.3 % 0-2 [facility], [address] [place] [address] 15131 Immature Granulocyte % (Auto) January 232019 8:35am 0.2 % 0-2 [facility], [address] [place] [address] 82138 Absolute Immature Granulocyte (auto September 09, 2020 11:50pm 0.0 # 0-0.1 [facility], [address] [place] [address] 06675 Absolute Immature Granulocyte (auto September 05, 2020 12:03pm 0.0 # 0-0.1 [facility], [address] [place] [address] Absolute Immature Granulocyte (auto August 30, 2020 8:15pm 0.0 # 0-0.1 [facility], [address] [place] [address] Absolute Immature Granulocyte (auto August 09, 2020 7:35pm 0.0 # 0-0.1 [facility], [address] [place] [address] Absolute Immature Granulocyte (auto August 14, 2020 9:31am 0.0 # 0-0.1 [facility], [address] [place] [address] Absolute Immature Granulocyte (auto August 03, 2020 2:35pm 0.0 # 0-0.1 [facility], [address] [place] [address] Absolute Immature Granulocyte (auto July 01, 2020 9:40pm 0.0 # 0-0.1 [facility], [address] [place] [address] Absolute Immature Granulocyte (auto May 18, 2020 6:17am 0.0 # 0-0.1 [facility], [address] [place] [address] Absolute Immature Granulocyte (auto March 25, 2020 8:11am 0.0 # 0-0.1 [facility], [address] [place] [address] Absolute Immature Granulocyte (auto March 11, 2020 12:14pm 0.0 # 0-0.1 [facility], [address] [place] [address] Absolute Immature Granulocyte (auto March 02, 2020 11:00am 0.0 # 0-0.1 [facility], [address] [place] [address] Absolute Immature Granulocyte (auto February 26, 2020 10:02am 0.0 # 0-0.1 [facility], [address] [place] [address] Absolute Immature Granulocyte (auto February 20, 2020 8:35am 0.0 # 0-0.1 [facility], [address] [place], [place] [id number] Add Manual Differential August 11:50pm No [facility], [address] [place] [address] 30636 Add Manual Differential August 12:03pm No [facility], [address] [place] [address] 19823 Add Manual Differential August 30, 2020 8:15pm No [facility], [address] [place] [address] 35867 Add Manual Differential July h2019 7:35pm No [facility], [address] [place] [address] 84838 Add Manual Differential July 9:31am No [facility], [address] [place] [address] 97058 Add Manual Differential July 2:35pm No [facility], [address] [place] [address] 40724 Add Manual Differential June 9:40pm No [facility], [address] [place] [address] 43570 Add Manual Differential May 182019 6:17am No [facility], [address] [place] [address] 20477 Add Manual Differential March 25, 2020 8:11am No [facility], [address] [place] [address] 10640 Add Manual Differential March 11 12:14pm No [facility], [address] [place] [address] 37806 Add Manual Differential March 02 020 11:00am No [facility], [address] [place] [address] 72553 Add Manual Differential February 25 10:02am No [facility], [address] [place] [address] 49414 Add Manual Differential February 19 020 8:35am No [facility], [address] [place] [address] 09800 Differential Total Cells Counted [facility] [place] 2019 7:20pm 100 [facility], [address] [place] [address] 03308 Neutrophils (Manual) May 17, 2020 7:20pm 77 % 41-77 [facility], [address] [place] [address] 11245 Band Neutrophils May 17 0 7:20pm 3 % 0-5 [facility], [address] [place] [address] 16866 Lymphocytes (Manual) May 17, 2020 7:20pm 17 % 14-46 [facility], [address] [place] [address] 63310 Monocytes (Manual) May 17 7:20pm 3 % 4-12 [facility], [address] [place] [address] 66499 Platelet Estimate May 17 7:20pm Appears normal NORMAL [facility], [address] [place] [address] 94022 RBC Morphology 2 May 17 0 7:20pm Appears normal NORMAL [facility], [address] [place] [address] 23342 Urine Color May 18, 2020 12:15am Yellow [facility], [address] [place] [address] 51558 Urine Color February 20, 2020 8:40am Yellow [facility], [address] [place] [address] 61799 Urine Color September 09, 2020 10:50pm Brown [facility], [address] [place] [address] 52001 Urine Color August 30, 2020 8:15pm [place] [facility], [address] [place] [address] 49897 Urine Color August 09, 2020 8:06pm Yellow [facility], [address] [place] [address] 08483 Urine Color August 03, 2020 2:50pm Yellow [facility], [address] [place] [address] 37179 Urine Color July 01, 2020 9:30pm Yellow [facility], [address] [place] [address] 24371 Urine Color March 25, 2020 8:05am Yellow [facility], [address] [place] [address] 47499 Urine Color March 11, 2020 11:00am Yellow [facility], [address] [place] [address] 53001 Urine Color March 05, 2020 2:29pm Yellow [facility], [address] [place] [address] 15455 Urine Color March 02, 2020 10:48am Yellow [facility], [address] [place] [address] 35077 Urine Appearance September 09, 2020 10:50p m Cloudy CLEAR [facility], [address] [place] [address] 49189 Urine Appearance August 30, 2020 8:15pm Turbid CLEAR [facility], [address] [place] [address] 48983 Urine Appearance August 09, 2020 8:06p m Clear [facility], [address] [place] [address] 98727 Urine Appearance August 03, 2020 2:50p m Clear CLEAR [facility], [address] [place] [address] 66292 Urine Appearance July 01, 2020 9:30pm Cloudy CLEAR [facility], [address] [place] [address] 37265 Urine Appearance May 18 12:15am Clear CLEAR [facility], [address] [place] [address] 40667 Urine Appearance March 25, 2020 8:05am Cloudy CLEAR [facility], [address] [place] [address] 82684 Urine Appearance March 11, 2020 11:00am Cloudy CLEAR [facility], [address] [place] [address] 55458 Urine Appearance March 05, 2020 2:29pm Cloudy CLEAR [facility], [address] [place] [address] [id number] Urine Appearance March 02, 2020 10:48am Cloudy [facility], [address] [place] [address] [id number] Urine Appearance February 20, 2020 8:40am Turbid [facility], [address] [place] [address] [id number] Urine pH September 09, 2020 10:50pm 5.5 [facility], [address] [place] [address] [id number] Urine pH August 30, 2020 8:15pm 6.5 [facility], [address] [place] [address] [id number] Urine pH August 09, 2020 8:06pm 6.5 [facility], [address] [place] [address] [id number] Urine pH August 03, 2020 2:50pm 7.5 [facility], [address] [place] [address] [id number] Urine pH July 01, 2020 9:30pm 6.0 [facility], [address] [place] [address] [id number] Urine pH May 18, 2020 12:15am 6.0 [facility], [address] [place] [address] [id number] Urine pH March 25, 2020 8:05am 5.5 [facility], [address] [place] [address] [id number] Urine pH March 11, 2020 11:00am 6.5 [facility], [address] [place] [address] [id number] Urine pH March 05, 2020 2:29pm 6.0 [facility], [address] [place] [address] [id number] Urine pH March 02, 2020 10:48am 5.5 [facility], [address] [place] [address] 55095 Urine pH February 20, 2020 8:40am 5.5 [facility], [address] [place] [address] [id number] Urine Specific Ferdinand September 09, 2020 10:50pm 1.035 [facility], [address] [place] [address] [id number] Urine Specific Ferdinand August 30, 2020 8:15pm 1.033 [facility], [address] [place] [address] [id number] Urine Specific Ferdinand July 8:06pm 1.022 [facility], [address] [place] [address] Urine Specific Ferdinand July 2:50pm 1.020 [facility], [address] [place] [address] Urine Specific Ferdinand July 01, 2020 9:30pm 1.026 [facility], [address] [place] [address] Urine Specific Ferdinand April 12:15am >1.045 [facility], [address] [place] [address] Urine Specific Ferdinand March 25 8:05am 1.025 [facility], [address] [place] [address] Urine Specific Ferdinand March 11 11:00am 1.025 [facility], [address] [place] [address] Urine Specific Ferdinand March 05 2:29pm 1.021 [facility], [address] [place] [address] Urine Specific Ferdinand March 02 10:48am 1.025 [facility], [address] [place] [address] Urine Specific Ferdinand February 19 8:40am 1.023 [facility], [address] [place] [address] Urine Leukocyte Esterase April 242019 12:15am Negative NEGATIVE [facility], [address] [place] [address] Urine Leukocyte Esterase February 20, 2020 8:40am Moderate NEGATIVE [facility], [address] [place] [address] Urine Leukocyte Esterase August 10:50pm Small NEGATIVE A Culture has been added to this specimen per established criteria [facility], [address] [place] [address] Urine Leukocyte Esterase August 8:15pm Small NEGATIVE A Culture has been added to this specimen per established criteria [facility], [address] [place] [address] Urine Leukocyte Esterase August [id number] 8:06pm Small NEGATIVE A Culture has been added to this specimen per established criteria [facility], [address] [place] [address] Urine Leukocyte Esterase August [id number] 2:50pm Small NEGATIVE A Culture has been added to this specimen per established criteria [facility], [address] [place] [address] Urine Leukocyte Esterase June 9:30pm Small NEGATIVE A Culture has been added to this specimen per established criteria [facility], [address] [place] [address] Urine Leukocyte Esterase March 25, 2020 8:05am Trace NEGATIVE A Culture has been added to this specimen per established criteria [facility], [address] [place] [address] Urine Leukocyte Esterase March 11, 2020 11:00am Trace NEGATIVE A Culture has been added to this specimen per established criteria [facility], [address] [place] [address] Urine Leukocyte Esterase March 05, 2020 2:29pm Trace NEGATIVE A Culture has been added to this specimen per established criteria [facility], [address] [place] [address] Urine Leukocyte Esterase March 02, 2020 10:48am Trace NEGATIVE A Culture has been added to this specimen per established criteria [facility], [address] [place] [address] Urine Nitrite May 18, 2020 12:15am Negative NEGATIVE [facility], [address] [place] [address] Urine Nitrite February 20, 2020 8:40am Negative NEGATIVE [facility], [address] [place] [address] Urine Nitrate September 09, 2020 10:50pm Positive NEGATIVE A Culture has been added to this specimen per established criteria [facility], [address] [place] [address] Urine Nitrate August 30, 2020 8:15pm Negative NEGATIVE [facility], [address] [place] [address] Urine Nitrate August 09, 2020 8:06pm Negative NEGATIVE [facility], [address] [place] [address] Urine Nitrate August 03, 2020 2:50pm Negative NEGATIVE [facility], [address] [place] [address] Urine Nitrate July 01, 2020 9:30pm Negative NEGATIVE [facility], [address] [place] [address] Urine Nitrate March 25, 2020 8:05am Negative NEGATIVE [facility], [address] [place] [address] Urine Nitrate March 11, 2020 11:00am Negative NEGATIVE [facility], [address] [place] [address] Urine Nitrate March 05, 2020 2:29pm Negative NEGATIVE [facility], [address] [place] [address] 33236 Urine Nitrate March 02, 2020 10:48am Negative NEGATIVE [facility], [address] [place] [address] 21468 Urine Protein September 09, 2020 10:50pm 30 mg/dl NEGATIVE [facility], [address] [place] [address] 62681 Urine Protein August 30, 2020 8:15pm 30 mg/dl NEGATIVE [facility], [address] [place] [address] 82849 Urine Protein August 09, 2020 8:06pm Negative NEGATIVE [facility], [address] [place] [address] 99373 Urine Protein August 03, 2020 2:50pm Negative NEGATIVE [facility], [address] [place] [address] 79806 Urine Protein July 01, 2020 9:30pm Trace NEGATIVE [facility], [address] [place] [address] 61900 Urine Protein May 18, 2020 12:15am Negative NEGATIVE [facility], [address] [place] [address] 62203 Urine Protein March 25, 2020 8:05am Negative NEGATIVE [facility], [address] [place] [address] 98370 Urine Protein March 11, 2020 11:00am Trace NEGATIVE [facility], [address] [place] [address] 32676 Urine Protein March 05, 2020 2:29pm Trace NEGATIVE [facility], [address] [place] [address] 30361 Urine Protein March 02, 2020 10:48am Negative NEGATIVE [facility], [address] [place] [address] 15315 Urine Protein February 20, 2020 8:40am 30 mg/dl NEGATIVE [facility], [address] [place] [address] 39473 Urine Ictotest September 09, 2020 10:50pm Negative [facility], [address] [place] [address] 34259 Urine Glucose September 09, 2020 10:50pm Negative NEGATIVE [facility], [address] [place] [address] 93313 Urine Glucose August 30, 2020 8:15pm Negative NEGATIVE [facility], [address] [place] [address] 23442 Urine Glucose August 09, 2020 8:06pm Negative NEGATIVE [facility], [address] [place] [address] 63899 Urine Glucose August 03, 2020 2:50pm Negative NEGATIVE [facility], [address] [place] [address] 77413 Urine Glucose July 01, 2020 9:30pm Negative NEGATIVE [facility], [address] [place] [address] 02446 Urine Glucose May 18, 2020 12:15am Negative NEGATIVE [facility], [address] [place] [address] 92387 Urine Glucose March 25, 2020 8:05am Negative NEGATIVE [facility], [address] [place] [address] 71257 Urine Glucose March 11, 2020 11:00am Negative NEGATIVE [facility], [address] [place] [address] 97087 Urine Glucose March 05, 2020 2:29pm Negative NEGATIVE [facility], [address] [place] [address] 54449 Urine Glucose March 02, 2020 10:48am Negative NEGATIVE [facility], [address] [place] [address] 37124 Urine Glucose February 20, 2020 8:40am Negative NEGATIVE [facility], [address] [place] [address] 72235 Urine Ketones September 09, 2020 10:50pm Trace NEGATIVE [facility], [address] [place] [address] 57905 Urine Ketones August 30, 2020 8:15pm Trace NEGATIVE [facility], [address] [place] [address] 79325 Urine Ketones August 09, 2020 8:06pm Negative NEGATIVE [facility], [address] [place] [address] 37902 Urine Ketones August 03, 2020 2:50pm Negative NEGATIVE [facility], [address] [place] [address] 36091 Urine Ketones July 01, 2020 9:30pm Trace NEGATIVE [facility], [address] [place] [address] 60223 Urine Ketones May 18, 2020 12:15am Negative NEGATIVE [facility], [address] [place] [address] 06853 Urine Ketones March 25, 2020 8:05am Trace NEGATIVE [facility], [address] [place] [address] 86353 Urine Ketones March 11, 2020 11:00am Trace NEGATIVE [facility], [address] [place] [address] 52089 Urine Ketones March 05, 2020 2:29pm Negative NEGATIVE [facility], [address] [place] [address] 35719 Urine Ketones March 02, 2020 10:48am Negative NEGATIVE [facility], [address] [place] [address] 85478 Urine Ketones February 20, 2020 8:40am Trace NEGATIVE [facility], [address] [place] [address] 41195 Urine Urobilinogen September 09 10:50pm 1 eu/dl [facility], [address] [place] [address] 23775 Urine Urobilinogen August 30, 2020 8:15p m 1 eu/dl [facility], [address] [place] [address] 85431 Urine Urobilinogen August 09 8:06pm 1 eu/dl [facility], [address] [place] [address] 66152 Urine Urobilinogen August 03 2:50pm 1 eu/dl [facility], [address] [place] [address] 23533 Urine Urobilinogen July 01 9:30pm 1 eu/dl [facility], [address] [place] [address] 00137 Urine Urobilinogen May 18 12:15am 0.2 eu/dl [facility], [address] [place] [address] 70455 Urine Urobilinogen March 25, 2020 8:05am 1 eu/dl [facility], [address] [place] [address] Urine Urobilinogen March 11, 2020 11:00am 1 eu/dl [facility], [address] [place] [address] 19847 Urine Urobilinogen March 05, 2020 2:29pm 0.2 eu/dl [facility], [address] [place] [address] Urine Urobilinogen March 02, 2020 10:48am 1 eu/dl [facility], [address] [place] [address] 40986 Urine Urobilinogen February 20, 2020 8:40am 1 eu/dl [facility], [address] [place] [address] 08125 Urine Bilirubin September 09, 2020 10:50pm Small NEGATIVE [facility], [address] [place] [address] 66556 Urine Bilirubin August 30, 2020 8:15pm Negative NEGATIVE [facility], [address] [place] [address] 71727 Urine Bilirubin August 09, 2020 8:06pm Negative NEGATIVE [facility], [address] [place] [address] 70465 Urine Bilirubin August 03, 2020 2:50pm Negative NEGATIVE [facility], [address] [place] [address] 78240 Urine Bilirubin July 01, 2020 9:30pm Negative NEGATIVE [facility], [address] [place] [address] 72014 Urine Bilirubin May 18, 2020 12:15am Negative NEGATIVE [facility], [address] [place] [address] 12162 Urine Bilirubin March 25, 2020 8:05am Negative NEGATIVE [facility], [address] [place] [address] 65595 Urine Bilirubin March 11, 2020 11:00am Negative NEGATIVE [facility], [address] [place] [address] 49151 Urine Bilirubin March 05, 2020 2:29pm Negative NEGATIVE [facility], [address] [place] [address] 33387 Urine Bilirubin March 02, 2020 10:48am Negative NEGATIVE [facility], [address] [place] [address] 23071 Urine Bilirubin February 20, 2020 8:40am Negative NEGATIVE [facility], [address] [place] [address] 73884 Urine Blood May 18, 2020 12:15am Negative NEGATIVE [facility], [address] [place] [address] 70017 Urine Blood February 20, 2020 8:40am Large NEGATIVE [facility], [address] [place] [address] Urine Blood September 09, 2020 10:50pm Large NEGATIVE A Culture has been added to this specimen per established criteria [facility], [address] [place] [address] 81301 Urine Blood August 30, 2020 8:15pm Large NEGATIVE A Culture has been added to this specimen per established criteria [facility], [address] [place] [address] 75217 Urine Blood August 09, 2020 8:06pm Moderate NEGATIVE A Culture has been added to this specimen per established criteria [facility], [address] [place] [address] 32788 Urine Blood August 03, 2020 2:50pm Small NEGATIVE [facility], [address] [place], [place] [id number] Urine Blood July 01, 2020 9:30pm Moderate NEGATIVE A Culture has been added to this specimen per established criteria [facility], [address] [place] [address] 83065 Urine Blood March 25, 2020 8:05am Negative NEGATIVE [facility], [address] [place] [address] 03284 Urine Blood March 11, 2020 11:00am Negative NEGATIVE [facility], [address] [place] [address] 58849 Urine Blood March 05, 2020 2:29pm Large NEGATIVE A Culture has been added to this specimen per established criteria [facility], [address] [place] [address] 25778 Urine Blood March 02, 2020 10:48am Trace NEGATIVE [facility], [address] [place] [address] Microscopic Urinalysis Comment Septe mb2019 12:15am No [facility], [address] [place] [address] 94970 Microscopic Urinalysis Comment February 20, 2020 8:40am Microscopic added [facility], [address] [place] [address] Add Urine Microanalysis August 10:50pm Microscopic added [facility], [address] [place] [address] Add Urine Microanalysis August 30, 2020 8:15pm Microscopic added [facility], [address] [place] [address] Add Urine Microanalysis July 8:06pm Microscopic added [facility], [address] [place] [address] Add Urine Microanalysis July 2:50pm Microscopic added [facility], [address] [place] [address] Add Urine Microanalysis June 9:30pm Microscopic added [facility], [address] [place] [address] Add Urine Microanalysis March 25, 2020 8:05am Microscopic added [facility], [address] [place] [address] Add Urine Microanalysis March 11, 020 11:00am Microscopic added [facility], [address] [place] [address] Add Urine Microanalysis March 05, 020 2:29pm Microscopic added [facility], [address] [place] [address] Add Urine Microanalysis March 02, 2 020 10:48am Microscopic added [facility], [address] [place] [address] Urine RBC September 09, 2020 10:50pm 3-5 /hpf [facility], [address] [place] [address] Urine RBC August 30, 2020 8:15pm 1-2 /hpf [facility], [address] [place] [address] Urine RBC August 09, 2020 8:06pm 1-2 /hpf [facility], [address] [place] [address] Urine RBC August 03, 2020 2:50pm 6-10 /hpf [facility], [address] [place] [address] 41334 Urine RBC July 01, 2020 9:30pm Occasional /hpf [facility], [address] [place] [address] Urine RBC March 05, 2020 2:29pm 3-5 /hpf [facility], [address] [place] [address] Urine RBC March 02, 2020 10:48am Occasional /hpf [facility], [address] [place] [address] Urine WBC February 20, 2020 8:40am 20-30 /hpf [facility], [address] [place] [address] 66303 Urine WBC September 09, 2020 10:50pm 2-4 /hpf [facility], [address] [place] [address] Urine WBC August 30, 2020 8:15pm 1-2 /hpf [facility], [address] [place] [address] 81734 Urine WBC August 09, 2020 8:06pm 1-2 /hpf [facility], [address] [place] [address] Urine WBC August 03, 2020 2:50pm 20-30 /hpf [facility], [address] [place] [address] Urine WBC July 01, 2020 9:30pm Occasional /hpf [facility], [address] [place] [address] Urine WBC March 25, 2020 8:05am 3-5 /hpf [facility], [address] [place] [address] Urine WBC March 11, 2020 11:00am 3-5 /hpf [facility], [address] [place] [address] Urine WBC March 05, 2020 2:29pm Occasional /hpf [facility], [address] [place] [address] Urine WBC March 02, 2020 10:48am 3-5 /hpf [facility], [address] [place] [address] Urine Squamous Epithelial Cells Lukas krystina 2020 10:50pm Few /hpf [facility], [address] [place] [address] Urine Squamous Epithelial Cells Lukas krystina 2020 8:15pm Moderate /hpf [facility], [address] [place] [address] Urine Squamous Epithelial Cells Dece mber 2019 8:06pm Many /hpf [facility], [address] [place] [address] Urine Squamous Epithelial Cells Dece mb2019 2:50pm Moderate /hpf [facility], [address] [place] [address] Urine Squamous Epithelial Cells Nove mber 2019 9:30pm Moderate /hpf [facility], [address] [place] [address] Urine Squamous Epithelial Cells Augu 2019 8:05am Many /hpf [facility], [address] [place] [address] Urine Squamous Epithelial Cells March 11, 2020 11:00am Many /hpf [facility], [address] [place] [address] Urine Squamous Epithelial Cells March 05, 2020 2:29pm Many /hpf [facility], [address] [place] [address] Urine Squamous Epithelial Cells March 02, 2020 10:48am Many /hpf [facility], [address] [place] [address] Urine Squamous Epithelial Cells February 20, 2020 8:40am Many /hpf [facility], [address] [place] [address] Urine Bacteria February 20, 2020 8:40am Moderate amount NEGATIVE [facility], [address] [place] [address] Urine Bacteria September 09, 2020 10:50pm Moderate amount NEGATIVE A Culture has been added to this specime n per established criteria [facility], [address] [place] [address] Urine Bacteria August 30, 2020 8:15pm Small amount NEGATIVE [facility], [address] [place] [address] Urine Bacteria August 09, 2020 8:06pm Small amount NEGATIVE [facility], [address] [place] [address] Urine Bacteria August 03, 2020 2:50pm Small amount NEGATIVE [facility], [address] [place] [address] Urine Bacteria July 01, 2020 9:30pm Moderate amount NEGATIVE A Culture has been added to this specime n per established criteria [facility], [address] [place] [address] Urine Bacteria March 25, 2020 8:05am Small amount NEGATIVE [facility], [address] [place] [address] Urine Bacteria March 11, 2020 11:00am Small amount NEGATIVE [facility], [address] [place] [address] Urine Bacteria March 05, 2020 2:29pm Small amount NEGATIVE [facility], [address] [place] [address] 89663 Urine Bacteria March 02, 2020 10:48am Small amount NEGATIVE [facility], [address] [place] [address] 32669 Urine Mucus August 30, 2020 8:15pm Small amount [facility], [address] [place] [address] 46887 Urine Mucus March 25, 2020 8:05am Small amount [facility], [address] [place] [address] 38010 Urine Sperm February 20, 2020 8:40am Few [facility], [address] [place] [address] 42415 Carboxyhemoglobin September 09, 2020 11:50pm 1.3 % 0-2.0 REFERENCE RANGE Non Smoker: LESS THAN 2.0% Smoker: LESS THAN 9.0% [facility], [address] [place] [address] Blood Urea Nitrogen September 09 11:50pm 7 mg/dL 05-15 [facility], [address] [place] [address] Blood Urea Nitrogen September 05 12:03pm 7 mg/dL 05-15 [facility], [address] [place] [address] Blood Urea Nitrogen August 30 8:15pm 16 mg/dL 05-15 [facility], [address] [place] [address] Blood Urea Nitrogen August 09 020 7:35pm 8 mg/dL 05-15 [facility], [address] [place] [address] Blood Urea Nitrogen August 03 020 2:35pm 5 mg/dL 05-15 [facility], [address] [place] [address] Blood Urea Nitrogen July 01 9:40pm 6 mg/dL 05-15 [facility], [address] [place] [address] Blood Urea Nitrogen May 18, 2020 6:17am 7 mg/dL 05-15 [facility], [address] [place] [address] Blood Urea Nitrogen March 25, 2020 8:11a m 7 mg/dL 05-15 [facility], [address] [place] [address] 93353 Blood Urea Nitrogen March 11, 2020 12:14p m 6 mg/dL 05-15 [facility], [address] [place] [address] Blood Urea Nitrogen March 02, 2020 11:00a m 8 mg/dL 05-15 [facility], [address] [place] [address] 86322 Blood Urea Nitrogen February 26, 2020 10:02am 7 mg/dL 05-15 [facility], [address] [place] [address] 16326 Blood Urea Nitrogen February 20, 2020 8:35am 6 mg/dL 05-15 [facility], [address] [place] [address] 87790 Sodium Level September 09, 2020 11:50pm 142 mmol/L 132-146 [facility], [address] [place] [address] 01654 Sodium Level September 05, 2020 12:03pm 140 mmol/L 132-146 [facility], [address] [place] [address] 75167 Sodium Level August 30, 2020 8:15pm 141 mmol/L 132-146 [facility], [address] [place] [address] 49074 Sodium Level August 09, 2020 7:35pm 141 mmol/L 132-146 [facility], [address] [place] [address] 74615 Sodium Level August 03, 2020 2:35pm 138 mmol/L 132-146 [facility], [address] [place] [address] 78055 Sodium Level July 01, 2020 9:40pm 141 mmol/L 132-146 [facility], [address] [place] [address] 96275 Sodium Level May 18, 2020 6:17am 143 mmol/L 132-146 [facility], [address] [place] [address] 89419 Sodium Level March 25, 2020 8:11am 137 mmol/L 132-146 [facility], [address] [place] [address] 89355 Sodium Level March 11, 2020 12:14pm 140 mmol/L 132-146 [facility], [address] [place] [address] 92868 Sodium Level March 02, 2020 11:00am 139 mmol/L 132-146 [facility], [address] [place] [address] 75264 Sodium Level February 26, 2020 10:02am 138 mmol/L 132-146 [facility], [address] [place] [address] 93340 Sodium Level February 20, 2020 8:35am 138 mmol/L 132-146 [facility], [address] [place] [address] 97933 Potassium Level September 09, 2020 11:50pm 3.7 mmol/L 3.5-5.5 [facility], [address] [place] [address] 18903 Potassium Level September 05, 2020 12:03pm 3.9 mmol/L 3.5-5.5 [facility], [address] [place] [address] 85764 Potassium Level August 30, 2020 8:15pm 3.8 mmol/L 3.5-5.5 [facility], [address] [place] [address] 11280 Potassium Level August 09, 2020 7:35pm 3.9 mmol/L 3.5-5.5 [facility], [address] [place] [address] 20459 Potassium Level August 03, 2020 2:35pm 4.6 mmol/L 3.5-5.5 [facility], [address] [place] [address] 96830 Potassium Level July 01, 2020 9:40pm 3.7 mmol/L 3.5-5.5 [facility], [address] [place] [address] 21598 Potassium Level May 18, 2020 6:17a m 3.8 mmol/L 3.5-5.5 [facility], [address] [place] [address] 64818 Potassium Level March 25, 2020 8:11am 3.7 mmol/L 3.5-5.5 [facility], [address] [place] [address] 80892 Potassium Level March 11, 2020 12:14pm 4.3 mmol/L 3.5-5.5 [facility], [address] [place] [address] 11335 Potassium Level March 02, 2020 11:00am 4.1 mmol/L 3.5-5.5 [facility], [address] [place] [address] 18005 Potassium Level February 26, 2020 10:02am 4.1 mmol/L 3.5-5.5 [facility], [address] [place] [address] 16482 Potassium Level February 20, 2020 8:35am 4.1 mmol/L 3.5-5.5 [facility], [address] [place] [address] 16020 Chloride Level September 09, 2020 11:50pm 111 mmol/l 99-109 [facility], [address] [place] [address] 90536 Chloride Level September 05, 2020 12:03pm 110 mmol/l 99-109 [facility], [address] [place] [address] 73853 Chloride Level August 30, 2020 8:15pm 109 mmol/l 99-109 [facility], [address] [place] [address] 82583 Chloride Level August 09, 2020 7:35pm 111 mmol/l 99-109 [facility], [address] [place] [address] 97993 Chloride Level August 03, 2020 2:35pm 110 mmol/l 99-109 [facility], [address] [place] [address] [id number] Chloride Level July 01, 2020 9:40pm 110 mmol/l 99-109 [facility], [address] [place] [address] [id number] Chloride Level May 18, 2020 6:17am 113 mmol/l 99-109 [facility], [address] [place] [address] [id number] Chloride Level March 25, 2020 8:11am 111 mmol/l 99-109 [facility], [address] [place] [address] [id number] Chloride Level March 11, 2020 12:14pm 111 mmol/l 99-109 [facility], [address] [place] [address] [id number] Chloride Level March 02, 2020 11:00am 111 mmol/l 99-109 [facility], [address] [place] [address] [id number] Chloride Level February 26, 2020 10:02am 107 mmol/l 99-109 [facility], [address] [place] [address] [id number] Chloride Level February 20, 2020 8:35am 108 mmol/l 99-109 [facility], [address] [place] [address] [id number] Carbon Dioxide Level September 09 021 11:50pm 23 mmol/l 20-31 [facility], [address] [place] [address] [id number] Carbon Dioxide Level September 05, 021 12:03pm 20 mmol/l 20-31 [facility], [address] [place] [address] [id number] Carbon Dioxide Level August 30 8:15pm 24 mmol/l 20-31 [facility], [address] [place] [address] [id number] Carbon Dioxide Level August 09, 2020 7:35pm 24 mmol/l 20-31 [facility], [address] [place] [address] [id number] Carbon Dioxide Level August 03, 2020 2:35pm 21 mmol/l 20-31 [facility], [address] [place] [address] [id number] Carbon Dioxide Level July 01 9:40pm 22 mmol/l 2031 [facility], [address] [place] [address] Carbon Dioxide Level May 18, 2020 6:17am 25 mmol/l 20-31 [facility], [address] [place] [address] 31149 Carbon Dioxide Level March 25 8:11am 21 mmol/l 20-31 [facility], [address] [place] [address] 03228 Carbon Dioxide Level March 11, 2020 12:14pm 20 mmol/l 20-31 [facility], [address] [place] [address] Carbon Dioxide Level March 02, 2020 11:00am 20 mmol/l 20-31 [facility], [address] [place] [address] 18142 Carbon Dioxide Level February 26, 2020 10:02a m 22 mmol/l -31 [facility], [address] [place] [address] 40919 Carbon Dioxide Level February 20, 2020 8:35a m 21 mmol/l 20-31 [facility], [address] [place] [address] 29152 Anion Gap September 09, 2020 11:50pm 12 mmol/l 8-16 [facility], [address] [place] [address] 78225 Anion Gap September 05, 2020 12:03pm 14 mmol/l 8-16 [facility], [address] [place] [address] 44550 Anion Gap August 30, 2020 8:15pm 12 mmol/l 8-16 [facility], [address] [place] [address] Anion Gap August 09, 2020 7:35pm 10 mmol/l 8-16 [facility], [address] [place] [address] Anion Gap August 03, 2020 2:35pm 12 mmol/l 8-16 [facility], [address] [place] [address] Anion Gap July 01, 2020 9:40pm 13 mmol/l 8-16 [facility], [address] [place] [address] 71456 Anion Gap May 18, 2020 6:17am 9 mmol/l 8-16 [facility], [address] [place] [address] Anion Gap March 25, 2020 8:11am 9 mmol/l 8-16 [facility], [address] [place] [address] 94592 Anion Gap March 11, 2020 12:14pm 13 mmol/l [address] [facility], [address] [place] [address] 06237 Anion Gap March 02, 2020 11:00am 12 mmol/l [address] [place] [address] LABORATORY, [address] [place] [address] 26633 Anion Gap February 26, 2020 10:02am 13 mmol/l [address] [place] [address] LABORATORY, [address] [place] [address] 08264 Anion Gap February 20, 2020 8:35am 13 mmol/l [address] [place] [address] LABORATORY, [address] [place] [address] 15703 Glucose Level September 09, 2020 11:50pm 90 mg/dL [address] [place] [address] LABORATORY, [address] [place] [address] 70702 Glucose Level September 05, 2020 12:03pm 106 mg/dL [address] [place] [address] LABORATORY, [address] [place] [address] 96665 Glucose Level August 30, 2020 8:15pm 90 mg/dL 74-106 [facility], [address] [place] [address] 49454 Glucose Level August 09, 2020 7:35pm 89 mg/dL 74-106 [facility], [address] [place] [address] 05584 Glucose Level August 03, 2020 2:35pm 87 mg/dL [address] [place] [address] LABORATORY, [address] [place] [address] 26499 Glucose Level July 01, 2020 9:40pm 100 mg/dL [address] [place] [address] LABORATORY, [address] [place] [address] 16866 Glucose Level May 18, 2020 6:17am 93 mg/dL 74-106 [facility], [address] [place] [address] 91102 Glucose Level March 25, 2020 8:11am 93 mg/dL 74-106 [facility], [address] [place] [address] 72908 Glucose Level March 11, 2020 12:14pm 88 mg/dL 74-106 [facility], [address] [place] [address] 05049 Glucose Level March 02, 2020 11:00am 91 mg/dL 74-106 [facility], [address] [place] [address] 99941 Glucose Level February 26, 2020 10:02am 92 mg/dL 74-106 [facility], [address] [place] [address] 15229 Glucose Level February 20, 2020 8:35am 98 mg/dL 74-106 [facility], [address] [place] [address] Creatinine September 09, 2020 11:50pm 0.9 mg/dL 0.5-1.1 [facility], [address] [place] [address] Creatinine September 05, 2020 12:03pm 1.0 mg/dL 0.5-1.1 [facility], [address] [place] [address] Creatinine August 30, 2020 8:15pm 1.1 mg/dL 0.5-1.1 [facility], [address] [place], [place] [id number] Creatinine August 09, 2020 7:35pm 1.3 mg/dL 0.5-1.1 [facility], [address] [place], [place] [id number] Creatinine August 03, 2020 2:35pm 0.8 mg/dL 0.5-1.1 [facility], [address] [place], [place] [id number] Creatinine July 01, 2020 9:40pm 0.9 mg/dL 0.5-1.1 [facility], [address] [place] [address] Creatinine May 18, 2020 6:17am 0.7 mg/dL 0.5-1.1 [facility], [address] [place] [address] 74376 Creatinine March 25, 2020 8:11am 0.9 mg/dL 0.5-1.1 [facility], [address] [place] [address] Creatinine March 11, 2020 12:14pm 1.2 mg/dL 0.5-1.1 [facility], [address] [place], [place] [id number] Creatinine March 02, 2020 11:00am 1.0 mg/dL 0.5-1.1 [facility], [address] [place] [address] Creatinine February 26, 2020 10:02am 1.0 mg/dL 0.5-1.1 [facility], [address] [place] [address] 12388 Creatinine February 20, 2020 8:35am 1.1 mg/dL 0.5-1.1 [facility], [address] [place] [address] 90002 Glomerular Filtration Rate Calc Lukas krystina 2020 11:50pm Greater than 60 ml/min ABOVE 60 [facility], [address] [place] [address] 18326 Glomerular Filtration Rate Calc Lukas krystina 2020 12:03pm Greater than 60 ml/min ABOVE 60 [facility], [address] [place] [address] 34400 Glomerular Filtration Rate Calc Lukas krystina 2020 8:15pm 60 ml/min ABOVE 60 [facility], [address] [place] [address] 70929 Glomerular Filtration Rate Calc Dece [email or web address] 7:35pm 50 ml/min ABOVE 60 [facility], [address] [place] [address] 35101 Glomerular Filtration Rate Calc Dece [email or web address] 2:35pm Greater than 60 ml/min ABOVE 60 [facility], [address] [place] [address] 72718 Glomerular Filtration Rate Calc Nove 2019 9:40pm Greater than 60 ml/min ABOVE 60 [facility], [address] [place] [address] 16396 Glomerular Filtration Rate Calc Apr 6:17am Greater than 60 ml/min ABOVE 60 [facility], [address] [place] [address] 38832 Glomerular Filtration Rate Calc Augu 2019 8:11am Greater than 60 ml/min ABOVE 60 [facility], [address] [place] [address] 74732 Glomerular Filtration Rate Calc March 11, 2020 12:14pm 55 ml/min ABOVE 60 [facility], [address] [place] [address] 82457 Glomerular Filtration Rate Calc March 02, 2020 11:00am Greater than 60 ml/min ABOVE 60 [facility], [address] [place] [address] 33625 Glomerular Filtration Rate Calc February 26, 2020 10:02am Greater than 60 ml/min ABOVE 60 [facility], [address] [place] [address] 47236 Glomerular Filtration Rate Calc February 20, 2020 8:35am Greater than 60 ml/min ABOVE 60 [facility], [address] [place] [address] 47953 Alanine Aminotransferase (ALT/SGPT) September 09, 2020 11:50pm 31 U/L 10-49 [facility], [address] [place] [address] 98649 Alanine Aminotransferase (ALT/SGPT) September 05, 2020 12:03pm 69 U/L 10-49 [facility], [address] [place] [address] 10370 Alanine Aminotransferase (ALT/SGPT) August 09, 2020 7:35pm 30 U/L 10-49 [facility], [address] [place] [address] Alanine Aminotransferase (ALT/SGPT) August 03, 2020 2:35pm 42 U/L 10-49 [facility], [address] [place] [address] 42767 Alanine Aminotransferase (ALT/SGPT) July 01, 2020 9:40pm 43 U/L 10-49 [facility], [address] [place] [address] 39003 Alanine Aminotransferase (ALT/SGPT) May 18, 2020 6:17am 52 U/L 10-49 [facility], [address] [place] [address] 38570 Alanine Aminotransferase (ALT/SGPT) March 25, 2020 8:11am 27 U/L 10-49 [facility], [address] [place] [address] 94054 Alanine Aminotransferase (ALT/SGPT) March 11, 2020 12:14pm 29 U/L 10-49 [facility], [address] [place] [address] 40656 Alanine Aminotransferase (ALT/SGPT) March 02, 2020 11:00am 29 U/L 10-49 [facility], [address] [place] [address] 51255 Alanine Aminotransferase (ALT/SGPT) February 26, 2020 10:02am 33 U/L 10-49 [facility], [address] [place] [address] 93498 Alanine Aminotransferase (ALT/SGPT) February 20, 2020 8:35am 42 U/L 10-49 [facility], [address] [place] [address] 71671 Aspartate Amino Transf (AST/SGOT) [facility] 2020 11:50pm 12 U/L 0-33 [facility], [address] [place] [address] 68598 Aspartate Amino Transf (AST/SGOT) [facility] 2020 12:03pm 29 U/L 0-33 [facility], [address] [place] [address] 12559 Aspartate Amino Transf (AST/SGOT) [facility] 2019 7:35pm 13 U/L 0-33 [facility], [address] [place] [address] 57610 Aspartate Amino Transf (AST/SGOT) [email or web address] 2:35pm 35 U/L 0-33 [facility], [address] [place] [address] 85589 Aspartate Amino Transf (AST/SGOT) No vember 2019 9:40pm 21 U/L 0-33 [facility], [address] [place] [address] 26660 Aspartate Amino Transf (AST/SGOT) Se ptember 2019 6:17am 27 U/L 0-33 [facility], [address] [place] [address] 71235 Aspartate Amino Transf (AST/SGOT) Au kem 2019 8:11am 15 U/L 0-33 [facility], [address] [place] [address] 82858 Aspartate Amino Transf (AST/SGOT) Ju ly 2019 12:14pm 17 U/L 0-33 [facility], [address] [place] [address] 96188 Aspartate Amino Transf (AST/SGOT) Ju ly 2019 11:00am 14 U/L 0-33 [facility], [address] [place] [address] 33670 Aspartate Amino Transf (AST/SGOT) Ju ly 2019 10:02am 17 U/L 0-33 [facility], [address] [place] [address] 02125 Aspartate Amino Transf (AST/SGOT) Ju ne 2019 8:35am 23 U/L 0-33 [facility], [address] [place] [address] 81609 Alkaline Phosphatase September 09 021 11:50pm 131 U/L 45-129 [facility], [address] [place] [address] Alkaline Phosphatase September 05 021 12:03pm 167 U/L 45-129 [facility], [address] [place] [address] 70084 Alkaline Phosphatase August 09, 2020 7:35pm 122 U/L 45-129 [facility], [address] [place] [address] Alkaline Phosphatase August 03, 2020 2:35pm 125 U/L 45-129 [facility], [address] [place] [address] Alkaline Phosphatase July 01 020 9:40pm 139 U/L 45-129 [facility], [address] [place] [address] Alkaline Phosphatase May 18, 2020 6:17am 110 U/L 45-129 [facility], [address] [place] [address] 03538 Alkaline Phosphatase March 25 8:11am 122 U/L 45-129 [facility], [address] [place] [address] 11140 Alkaline Phosphatase March 11, 2020 12:14pm 129 U/L 45-129 [facility], [address] [place] [address] 03565 Alkaline Phosphatase March 02, 2020 11:00am 136 U/L 45-129 [facility], [address] [place] [address] 90991 Alkaline Phosphatase February 26, 2020 10:02a m 147 U/L 45-129 [facility], [address] [place] [address] 57006 Alkaline Phosphatase February 20, 2020 8:35a m 149 U/L 45-129 [facility], [address] [place] [address] 99809 Amylase Level September 09, 2020 11:50pm 45 U/L 30-118 [facility], [address] [place] [address] 08132 Amylase Level August 09, 2020 7:35pm 39 U/L 30-118 [facility], [address] [place] [address] 79830 Amylase Level August 03, 2020 2:35pm 31 U/L 30-118 [facility], [address] [place] [address] 98323 Amylase Level May 17, 2020 7:20pm 39 U/L 30-118 [facility], [address] [place] [address] 22952 Amylase Level March 25, 2020 8:11am 35 U/L 30-118 [facility], [address] [place] [address] 44595 Lipase September 09, 2020 11:50pm 116 U/L 73-393 [facility], [address] [place] [address] 16263 Lipase August 09, 2020 7:35pm 90 U/L 73-393 [facility], [address] [place] [address] 30436 Lipase August 03, 2020 2:35pm 68 U/L 73-393 [facility], [address] [place] [address] 44682 Lipase May 17, 2020 7:20pm 89 U/L 73-393 [facility], [address] [place] [address] 95999 Lipase March 25, 2020 8:11am 97 U/L 73-393 [facility], [address] [place] [address] 79847 Lipase March 11, 2020 12:14pm 128 U/L 73-393 [facility], [address] [place] [address] 12810 Calcium Level September 09, 2020 11:50pm 9.6 mg/dL 8.5-10.1 [facility], [address] [place] [address] 66065 Calcium Level September 05, 2020 12:03pm 9.4 mg/dL 8.5-10.1 [facility], [address] [place] [address] 28688 Calcium Level August 30, 2020 8:15pm 9.6 mg/dL 8.5-10.1 [facility], [address] [place] [address] 36371 Calcium Level August 09, 2020 7:35pm 9.5 mg/dL 8.5-10.1 [facility], [address] [place] [address] 29270 Calcium Level August 03, 2020 2:35pm 9.1 mg/dL 8.5-10.1 [facility], [address] [place] [address] 81337 Calcium Level July 01, 2020 9:40pm 9.2 mg/dL 8.5-10.1 [facility], [address] [place] [address] 27261 Calcium Level May 18, 2020 6:17am 8.5 mg/dL 8.5-10.1 Delta: 9.6 on 05/17/20-2019Repeated by: Roderick Cee 05/18/20 0824.Result Confirmation: 8.3 # mg/dL [facility], [address] [place] [address] 13524 Calcium Level March 25, 2020 8:11am 8.9 mg/dL 8.5-10.1 [facility], [address] [place] [address] 03524 Calcium Level March 11, 2020 12:14pm 8.6 mg/dL 8.5-10.1 [facility], [address] [place] [address] 53875 Calcium Level March 02, 2020 11:00am 9.0 mg/dL 8.5-10.1 [facility], [address] [place] [address] 25293 Calcium Level February 26, 2020 10:02am 9.0 mg/dL 8.5-10.1 [facility], [address] [place], [place] [id number] Calcium Level February 20, 2020 8:35am 9.4 mg/dL 8.5-10.1 [facility], [address] [place] [address] 07352 Total Bilirubin September 09, 2020 11:50pm 0.2 mg/dL 0.3-1.2 [facility], [address] [place] [address] 08464 Total Bilirubin September 05, 2020 12:03pm 0.3 mg/dL 0.3-1.2 [facility], [address] [place] [address] 07249 Total Bilirubin August 09, 2020 7:35pm 0.3 mg/dL 0.3-1.2 [facility], [address] [place] [address] 96387 Total Bilirubin August 03, 2020 2:35pm 0.4 mg/dL 0.3-1.2 [facility], [address] [place] [address] 87148 Total Bilirubin July 01, 2020 9:40pm 0.3 mg/dL 0.3-1.2 [facility], [address] [place] [address] 66169 Total Bilirubin May 18, 2020 6:17a m 0.3 mg/dL 0.3-1.2 [facility], [address] [place] [address] 25804 Total Bilirubin March 25, 2020 8:11am 0.2 mg/dL 0.3-1.2 [facility], [address] [place] [address] 83427 Total Bilirubin March 11, 2020 12:14pm 0.2 mg/dL 0.3-1.2 [facility], [address] [place] [address] 88034 Total Bilirubin March 02, 2020 11:00am 0.4 mg/dL 0.3-1.2 [facility], [address] [place] [address] 29216 Total Bilirubin February 26, 2020 10:02am 0.3 mg/dL 0.3-1.2 [facility], [address] [place] [address] 23480 Total Bilirubin February 20, 2020 8:35am 0.3 mg/dL 0.3-1.2 [facility], [address] [place] [address] 88552 Albumin September 09, 2020 11:50pm 3.5 g/dL 3.2-4.8 [facility], [address] [place] [address] 05618 Albumin September 05, 2020 12:03pm 3.4 g/dL 3.2-4.8 [facility], [address] [place] [address] 67602 Albumin August 09, 2020 7:35pm 3.6 g/dL 3.2-4.8 [facility], [address] [place] [address] 93141 Albumin August 03, 2020 2:35pm 3.5 g/dL 3.2-4.8 [facility], [address] [place], [place] [id number] Albumin July 01, 2020 9:40pm 3.5 g/dL 3.2-4.8 [facility], [address] [place], [place] [id number] Albumin May 18, 2020 6:17am 3.0 g/dL 3.2-4.8 [facility], [address] [place], [place] [id number] Albumin March 25, 2020 8:11am 3.0 g/dL 3.2-4.8 [facility], [address] [place] [address] Albumin March 11, 2020 12:14pm 3.2 g/dL 3.2-4.8 [facility], [address] [place] [address] 74772 Albumin March 02, 2020 11:00am 3.1 g/dL 3.2-4.8 [facility], [address] [place] [address] 92306 Albumin February 26, 2020 10:02am 3.4 g/dL 3.2-4.8 [facility], [address] [place] [address] 15490 Albumin February 20, 2020 8:35am 3.5 g/dL 3.2-4.8 [facility], [address] [place] [address] Serum Total Protein September 09 11:50pm 8.2 g/dL 5.7-8.2 [facility], [address] [place] [address] Serum Total Protein September 05 12:03pm 7.8 g/dL 5.7-8.2 [facility], [address] [place] [address] Serum Total Protein August 09 7:35pm 8.2 g/dL 5.7-8.2 [facility], [address] [place] [address] 99000 Serum Total Protein August 03 2:35pm 8.1 g/dL 5.7-8.2 [facility], [address] [place] [address] 18357 Serum Total Protein July 01 9:40pm 8.0 g/dL 5.7-8.2 [facility], [address] [place] [address] 91226 Serum Total Protein May 18, 2020 6:17am 6.6 g/dL 5.7-8.2 [facility], [address] [place] [address] Serum Total Protein March 25, 2020 8:11a m 7.7 g/dL 5.7-8.2 [facility], [address] [place] [address] Serum Total Protein March 11, 2020 12:14p m 7.6 g/dL 5.7-8.2 [facility], [address] [place] [address] 45374 Serum Total Protein March 02, 2020 11:00a m 7.9 g/dL 5.7-8.2 [facility], [address] [place] [address] Serum Total Protein February 26, 2020 10:02am 7.6 g/dL 5.7-8.2 [facility], [address] [place] [address] 99900 Serum Total Protein February 20, 2020 8:35am 7.9 g/dL 5.7-8.2 [facility], [address] [place] [address] 90823 Lactic Acid Level July 01, 2020 9:40p m 1.0 mmol/L 0.5-2.2 [facility], [address] [place] [address] 96523 Human Chorionic Gonadotropin, Quant August 09, 2020 7:35pm 65918 mIU/mL 0-10 APPROXIMATE GESTATION AGE APRROX IMATE HCG RANGE 0-1 WEEK 0 - 50 1-2 WEEKS 40 - 300 2-3 WEEKS 100 - 1,000 3-4 WEEKS 500 - 6,000 1-2 MONTHS 5,000 - 200,000 2-3 MONTHS 10,000 - 100,000 2ND TRIMESTER 3,000 - 50,000 3RD TRIMESTER 1,000 - 50,000 [facility], [address] [place] [address] 37297 Human Chorionic Gonadotropin, Quant August 14, 2020 9:31am 13187 mIU/mL 0-10 APPROXIMATE GESTATION AGE APRROX IMATE HCG RANGE 0-1 WEEK 0 - 50 1-2 WEEKS 40 - 300 2-3 WEEKS 100 - 1,000 3-4 WEEKS 500 - 6,000 1-2 MONTHS 5,000 - 200,000 2-3 MONTHS 10,000 - 100,000 2ND TRIMESTER 3,000 - 50,000 3RD TRIMESTER 1,000 - 50,000 [facility], [address] [place] [address] 77696 Human Chorionic Gonadotropin, Quant August 03, 2020 2:35pm 88372 mIU/mL 0-10 APPROXIMATE GESTATION AGE APRROX IMATE HCG RANGE 0-1 WEEK 0 - 50 1-2 WEEKS 40 - 300 2-3 WEEKS 100 - 1,000 3-4 WEEKS 500 - 6,000 1-2 MONTHS 5,000 - 200,000 2-3 MONTHS 10,000 - 100,000 2ND TRIMESTER 3,000 - 50,000 3RD TRIMESTER 1,000 - 50,000 [facility], [address] [place] [address] 74750 Human Chorionic Gonadotropin, Quant July 01, 2020 10:10am Less than 1 mIU/mL 0-1 0 APPROXIMATE GESTATION AGE APRROX IMATE HCG RANGE 0-1 WEEK 0 - 50 1-2 WEEKS 40 - 300 2-3 WEEKS 100 - 1,000 3-4 WEEKS 500 - 6,000 1-2 MONTHS 5,000 - 200,000 2-3 MONTHS 10,000 - 100,000 2ND TRIMESTER 3,000 - 50,000 3RD TRIMESTER 1,000 - 50,000 [facility], [address] [place] [address] 22363 Thyroid Stimulating Hormone (TSH) Ju ly 2019 10:02am 1.84 uIU/mL 0.35-5.50 [facility], [address] [place] [address] 58124 Serum Test, Qualitative Ja nuary 2020 11:50pm Negative NEGATIVE [facility], [address] [place] [address] 64191 Serum Test, Qualitative De cember 2019 2:35pm Positive NEGATIVE [facility], [address] [place] [address] 36646 Serum Test, Qualitative No vember 2019 9:40pm Negative NEGATIVE [facility], [address] [place] [address] 51818 Serum Test, Qualitative Se ptember 2019 7:20pm Negative NEGATIVE [facility], [address] [place] [address] 98994 Serum Test, Qualitative Au kem 2019 8:11am Negative NEGATIVE [facility], [address] [place] [address] [id number] Urine HCG, Qualitative March 11 11:00am Negative NEGATIVE [facility], [address] [place] [address] 51419 Urine HCG, Qualitative March 02 11:00am Negative NEGATIVE [facility], [address] [place] [id number] Urine HCG, Qualitative February 19 8:32am Negative NEGATIVE [facility], [address] [place] [address] Coronavirus (COVID-19)(PCR) March 252019 2:30pm Not detected Not Detec dee This test was developed and its performa nce characteristicsdetermined by [employer]. This test has not beenFDA cleared or [...] detected) result in this assay.Performed at: - [facility] [address] [id number] Director: Deisy Hdez MD, Phone: [phone] [facility] , [address] [facility] [id number] Urine Random Creatinine February 27 7:19am 234.0 mg/dL THERE IS NO ESTABLISHED RANGE FOR RANDOM URINE CREATININE [facility], [address] [place] [address] Urine Microalbumin February 28, 2020 7:19am 13.7 mg/L 0.0-29.9 [facility], [address] [place] [address] Urine Microalbumin/Creatinine Ratio February 28, 2020 7:19am 5.8 ug/mg 0.0-30.0 [facility], [address] [place] [address] Hemoglobin A1c February 26, 2020 10:02am 5.3 [...] glucose control. * High risk of developing intermediate complications such asretinopathy, nephropathy, neuropathy, cardiopathy, etc. Some danger of hypoglycemic reaction in Type I diabetics.Some glucose intolerant individuals and "Sub Clinical"diabetics may demonstrate HGBA1C levels in this area. [facility], [address] [place] [address] Estimated Average Glucose (eAG) February 26, 2020 10:02am 105 mg/dl An A1C of 7% - the goal of diabetic therapy - is equivalentto an EAG of 154 mg/dl. , [address] [place] [address] Microbiology Results Procedure Source Result Collection Date/Time Result Date/Time Result Comment Performing Site Urine Culture Urine,voided September 09, 2020 10:50pm August 242020 8:14am [facility], [address] [place] [address] Urine Culture Urine,voided August 30, 2020 8:15pm August 2:09pm [facility], [address] [place] [address] Urine Culture Urine,voided August 09, 2020 8:06pm August 11, 2020 7:16am [facility], [address] [place] [address] Urine Culture Urine,clean catch August 03, 2020 2:50pm August 04, 2020 11:45am [facility], [address] [place] [address] Urine Culture Urine,voided July 01, 2020 9:30pm June 232019 7:24am [facility], [address] [place] [id number] Urine Culture Urine,voided May 18, 2020 1:15am Septembe r 2019 11:25am [facility], [address] [place] [id number] Urine Culture Urine,clean catch March 25, 2020 9:05am March 26, 2020 1:36pm [facility], [address] [place] [id number] Urine Culture Urine,clean catch March 11, 2020 12:00pm March 12, 020 1:24pm [facility], [address] [place], [place] [id number] Urine Culture Urine,voided March 05, 2020 3:29pm March 06 9:18am [facility], [address] [place] [id number] Urine Culture Urine,voided March 02, 2020 11:48am March 03, 020 8:26am [facility], [address] [place] [address] 75343 Streptococcus Rapid Screen Throat March 13, 2020 10:34am March 14, 2 020 8:58am [facility], [address] [place] [address] 31010 Streptococcus Rapid Screen Throat March 13, 2020 10:34am March 13, 2 020 11:04am [facility], [address] [place] [address] 79667 Blood Culture Venous blood No growth. July 01, 2020 9:40pm June 232019 9:46pm [facility], [address] [place] [address] 83964 SARS-CoV-2 (PCR) Interpretation Naso pharyngeal No Organisms Detected July 01, 2020 9:45pm July 01, 2020 10:29pm [facility], [address] [place] [address] 36801 Nasal BinaxNow Covid - 19 Ag Negative July 30, 2020 9:45am July 302019 11:56am [facility], [address] [place] [address] 41063 Influenza-Like Illness (PCR) Nasopharyngea l No Organisms Detected August 22, 2020 6:22am August 22, 2020 7:41am [facility], [address] [place] [address] 82988 Nasopharyngeal August 22, 2020 6:22am August 22, 2020 7:41am [facility], [address] [facility] [address] Gastrointestinal Tract Panel (PCR) Stool C. difficile toxin detected May 17, 2020 3:03pm May 17, 2020 5:25pm [facility], [address] [place] [address] 08345 Respiratory Panel (PCR) Nasopharyngeal No Organisms Detected May 18, 2020 1:40am May 18, 2020 2:49am [facility], [address] [place] [address] 80250 Diagnostic Imaging Reports Report Dictated Date/Time Dictated By Status Radiology Report February 28, 2020 9:48am Oliverio Chen MD completed [place] [address] [place] [address] [phone] NAME SEX PT STATUS ACCOUNT NUMBER ANNA MARIE BELTRAN REG REF [id number] ORDERING PHYSICIAN LOCATION MEDICAL RECORD NO. Jose Kramer DO [id number] ATTENDING PHYSICIAN DATE OF DATE OF EXAM/TIME [...] fluid. Reported By Oliverio Chen MD on 02/28/20947 Signed By Oliverio Chen MD on 02/28/20951 Date Time CC: Jose Kramer DO; Oliverio Chen MD Techn: BUSMI Trans Dt/Tm: Trans by: DT Prt Dt/Tm: : Total DLP = 0.00 mGy-cm : Total Radiation Dose = 0.0000 mSv Lifetime Dose: 0 mSv Radiology Report March 02, 2020 1:53pm Warren Bourne MD completed [facility] [address] [id number] [phone] NAME SEX PT STATUS ACCOUNT NUMBER ANNA MARIE BELTRAN [facility] [id number] ORDERING PHYSICIAN LOCATION MEDICAL RECORD NO. Sameer Islas MD ER [id number] ATTENDING PHYSICIAN DATE OF DATE OF EXAM/TIME [...] 12, 2020 2:59pm Oliverio Chen MD completed [facility] [address] [facility] [place] [address] [phone] NAME SEX PT STATUS ACCOUNT NUMBER ANNA MARIE BELTRAN REG REF [id number] ORDERING PHYSICIAN LOCATION MEDICAL RECORD NO. Pola Meadows MD [id number] ATTENDING PHYSICIAN DATE OF DATE OF EXAM/TIME Jose Kramer DO 1995 03/12/201 TYPE / EXAM US Pelvic complete REASON [...] 25, 2020 10:18am Oliverio Chen MD completed [facility] [address] [place] [address] [phone] NAME SEX PT STATUS ACCOUNT NUMBER ANNA MARIE BELTRAN [facility] ER [id number] ORDERING PHYSICIAN LOCATION MEDICAL RECORD NO. Hiren Perez MD ER [id number] ATTENDING PHYSICIAN DATE OF DATE OF EXAM/TIME [...] Report May 17 9:41pm Ulisses Sethi MD [facility] [address] [place] [address] [phone] NAME SEX PT STATUS ACCOUNT NUMBER ANNA MARIE BLETRAN [facility] ER [id number] ORDERING PHYSICIAN LOCATION MEDICAL RECORD NO. Mikhail Sheriff MD ER [id number] ATTENDING PHYSICIAN DATE OF DATE OF EXAM/TIME [...] CC: Trice Aj; Ulisses Sethi MD Techn: ROSAU Trans Dt/Tm: Trans by: DT Prt Dt/Tm: : Total DLP = 1196.00 mGy-cm : Total Radiation Dose = 17.9400 mSv Lifetime Dose: 34.7550 mS v Radiology Report July 01, 2020 10:55p m Telly Robledo MD completed [facility] [address] [facility] [place] [address] [phone] NAME SEX PT STATUS ACCOUNT NUMBER ANNA MARIE BELTRAN [facility] ER [id number] ORDERING PHYSICIAN LOCATION MEDICAL RECORD NO. Mikhail Sheriff MD ER [id number] ATTENDING PHYSICIAN DATE OF DATE OF EXAM/TIME [...] CC: Nicol Sebastian; Telly Robledo MD Techn: JANAE Trans Dt/Tm: Trans by: DT Prt Dt/Tm: [id number]: Total DLP = 0.00 mGy-cm Fluoroscopy Time (in secs): Radiology Report July 01, 2020 11:07p m Niels Wilkerson MD completed [place] [address] [place] 8135209 [phone] NAME SEX PT STATUS ACCOUNT NUMBER ANNA MARIE BELTRAN [facility] [id number] ORDERING PHYSICIAN LOCATION MEDICAL RECORD NO. Mikhail Sheriff MD [id number] ATTENDING PHYSICIAN DATE OF DATE OF EXAM/TIME [...] CC: Nicol Sebastian; Niels Wilkerson MD Techn: ROSAU Trans Dt/Tm: Trans by: DT Prt Dt/Tm: : Total DLP = 1469.00 mGy-cm 5026-0852: Total Radiation Dose = 22.0350 mSv Lifetime Dose: 56.7900 mS v Radiology Report August 03, 2020 7:33p m Gibran Villa MD completed [facility] [address] [facility] [place] [address] [phone] NAME SEX PT STATUS ACCOUNT NUMBER ANNA MARIE BELTRAN [facility] ER [id number] ORDERING PHYSICIAN LOCATION MEDICAL RECORD NO. Daljit Alex MD ER [id number] ATTENDING PHYSICIAN DATE OF DATE OF EXAM/TIME RomuloNicol YELITZA 1995 08/03/201857 TYPE / EXAM US [...] 2020 7:59p m Telly Robledo MD completed [facility] [address] 4767574 [phone] NAME SEX PT STATUS ACCOUNT NUMBER ANNA MARIE BELTRAN [facility] ER [id number] ORDERING PHYSICIAN LOCATION MEDICAL RECORD NO. Daljit Alex MD ER [id number] ATTENDING PHYSICIAN DATE OF DATE OF EXAM/TIME [...] 2020 7:34p m Gibran Villa MD completed [place] [address] [place] [address] [phone] NAME SEX PT STATUS ACCOUNT NUMBER CANDIE BELTRANELYYOLANDA Crespo [facility] ER [id number] ORDERING PHYSICIAN LOCATION MEDICAL RECORD NO. Daljit Alex MD ER [id number] ATTENDING PHYSICIAN DATE OF DATE OF EXAM/TIME Nicol Sebastian ACCESSIONER 1995 08/03/201858 TYPE / EXAM US OB Ultrasound <14 weeks REASON FOR EXAM RLQ PAIN; R/O ECTOPIC [place] [address] [place] [address] [phone] NAME SEX PT STATUS ACCOUNT NUMBER DEVINANNA MARIE Crespo [facility] ER [id number] ORDERING PHYSICIAN LOCATION MEDICAL RECORD NO. Daljit Alex MD ER [id number] ATTENDING PHYSICIAN DATE OF DATE OF EXAM/TIME Maura Sebastianara ACCESSIONER 1995 08/03/201857 TYPE / EXAM US OB [...] 2020 9:02p m Telly Robledo MD completed [facility] [address] 4767567 [phone] NAME SEX PT STATUS ACCOUNT NUMBER ANNA MARIE BELTRAN [facility] [id number] ORDERING PHYSICIAN LOCATION MEDICAL RECORD NO. Mikhail Sheriff MD ER [id number] ATTENDING PHYSICIAN DATE OF DATE OF EXAM/TIME RomuloNicol YELITZA 1995 08/09/202038 TYPE / EXAM US OB Ultrasound <14 weeks REASON FOR EXAM Gen abd pain. +HCG ANNA MARIE BELTRAN [id number] 1995 ADDENDUM Clinical History/Indication for Exam: Gen [...] Ocampo Dt/Tm: Trans by: DT Prt Dt/Tm: [id number]: Total DLP = 0.00 mGy-cm 7664-1420: Total Radiation Dose = 0.0000 mSv Lifetime Dose: 56.7900 mSv Radiology Report August 14, 2020 11:09am Oliverio Chen MD completed [place] [address] [place] [address] [phone] NAME SEX PT STATUS ACCOUNT NUMBER ANNA MARIE BELTRAN REG REF [id number] ORDERING PHYSICIAN LOCATION MEDICAL RECORD NO. Jarret Herbert MD [id number] ATTENDING PHYSICIAN DATE OF DATE OF EXAM/TIME Nicol Sebastian NP 1995 08/14/20915 TYPE / EXAM US OB Ultrasound <14 weeks REASON FOR EXAM FOLLOW UP SUBCHOR/ EARLY COMPARISON: August 19, 2020 and 2019 FINDINGS: Gestation: Single Hamill-rump length: Singlemm compatible with a Single week Single day gestational age. Yolk sac: Not seen No heart rate detected. Uterus: 8.5 x 4.6 x 7.0cm. A subchorionic hemorrhage is still seen. Average ultrasound age of 5 weeks 6 days. EDC: April 10, 2021. Hamill-rump length: 3.4mm IMPRESSION: 1. Gestational sac measurements, unchanged. 2. Subarachnoid hemorrhage is still seen. 3. Linear intraamniotic echogenicity, possibly the pole. No heart rate detected. Reported By Oliverio Chen MD on 08/14/20 1109 Signed By Oliverio Chen MD on 08/14/20 1114 Date Time CC: Nicol Sebastian; Oliverio Chen MD Techn: FREST Trans Dt/Tm: Trans by: DT Prt Dt/Tm: [id number]: Total DLP = 0.00 mGy-cm 2179-9797: Total Radiation Dose = 0.0000 mSv Lifetime Dose: 56.7900 mSv Radiology Report August 09, 2020 9:05p m Telly Robledo MD completed [address] [address] [phone] NAME SEX PT STATUS ACCOUNT NUMBER ANNA MARIE BELTRAN [facility] ER [id number] ORDERING PHYSICIAN LOCATION MEDICAL RECORD NO. Mikhail Sheriff MD ER [id number] ATTENDING PHYSICIAN DATE OF DATE OF EXAM/TIME Nicol Sebastian NP 1995 08/09/202039 TYPE / EXAM US OB Transvaginal REASON FOR EXAM PAIN [address] [address] [phone] NAME SEX PT STATUS ACCOUNT NUMBER ANNA MARIE BELTRAN [facility] ER [id number] ORDERING PHYSICIAN LOCATION MEDICAL RECORD NO. Mikhail Sheriff MD ER [id number] ATTENDING PHYSICIAN DATE OF DATE OF EXAM/TIME Nicol Sebastian NP 1994 08/09/202038 TYPE / EXAM US OB Ultrasound <14 weeks REASON FOR EXAM Gen abd pain. +HCG ANNA MARIE BELTRAN [id number] 1995 ADDENDUM Clinical History/Indication for Exam: Gen [...] Ocampo Dt/Tm: Trans by: DT Prt Dt/Tm: [id number]: Total DLP = 0.00 mGy-cm 7924-6225: Total Radiation Dose = 0.0000 mSv Lifetime Dose: 56.7900 mSv Reported By Telly Robledo MD on 08/09/202104 Signed By Telly Robledo MD on 08/14/201244 Date Time CC: Nicol Sebastian; Telly Robledo MD Techn: CARLONA Trans Dt/Tm: Trans by: DT Prt Dt/Tm: 8688-8057: Total DLP = 0.00 mGy-cm 4134-7553: Total Radiation Dose = 0.0000 mSv Lifetime Dose: 56.7900 mSv Radiology Report August 21, 2020 10:47am Oliverio Chen MD completed [facility] [address] [facility] [place] [address] [phone] NAME SEX PT STATUS ACCOUNT NUMBER ANNA MARIE BELTRAN [facility] REF [id number] ORDERING PHYSICIAN LOCATION MEDICAL RECORD NO. Jarret Herbert MD [id number] ATTENDING PHYSICIAN DATE OF DATE OF EXAM/TIME Nicol Sebastian NP 1995 08/21/201016 TYPE / EXAM US OB Transvaginal REASON FOR EXAM EVAL FOR IUP COMPARISON: August 14, 2020. FINDINGS: Gestation: Single Hamill-rump length: No pole seen. Gestational sac: 13.4 [...] Trans Dt/Tm: Trans by: DT Prt Dt/Tm: [id number]: Total DLP = 0.00 mGy-cm 5536-1218: Total Radiation Dose = 0.0000 mSv Lifetime Dose: 56.7900 mSv Radiology Report August 21, 2020 10:47am Oliverio Chen MD completed [facility] [address] [place] [address] [phone] NAME SEX PT STATUS ACCOUNT NUMBER ANNA MARIE BELTRAN [facility] REF [id number] ORDERING PHYSICIAN LOCATION MEDICAL RECORD NO. Jarret Herbert MD [id number] ATTENDING PHYSICIAN DATE OF DATE OF EXAM/TIME Nicol Sebastian NP 1994 12/30/20 / 1017 TYPE / EXAM US OB Ultrasound <14 weeks REASON FOR EXAM Re-evaluation for subchor. COMPARISON: August 14, 2020. FINDINGS: Gestation: Single Hamill-rump length: No pole seen. Gestational sac: 13.4 [...] Ocampo Dt/Tm: Trans by: LUPIS Prt Dt/Tm: [id number]: Total DLP = 0.00 mGy-cm 4733-9774: Total Radiation Dose = 0.0000 mSv Lifetime Dose: 56.7900 mSv Health Concerns Health Concerns may be documented in an alternate section. Advance Directives Advance Directive Response Recorded Date/Time Advanced Directive No Tee lynne 2020 11:06pm MOLST No September 02 9:57am Advance Directives on File or in chart? No September 02, 2020 9:57am Does Patient have a DNR? No September 09, 2020 11:06pm Healthcare Proxy No Lukas flaherty 2020 11:06pm Living Will No August 232020 9:57am Chief Complaint and Reason for Visit Chief [...] PAIN ABDOMINAL PAIN, BLOOD IN URINE/STOOL PAIN [facility] Initial Visit Hernia [facility] SUBCHORIONIC BLEED O02.1/SUCTION D+C 77657 [facility] Post op care ABDOMINAL PAIN Telemed Visit [facility] Office Visit [facility] Post op care R19.7 HEADACHE, NAUSEA, DIZZY Telemed Visit Reason for Visit Anxiety Depression [...] rival/Admit Date Discharge/Depart Date Provider(s) Registered Referred [facility] February 20, 2020 8:12am Bianka Sen MD Departed Physician/Provider Office Visit [facility] February 20, 2020 10:22am February 20, 2020 11:42am Cesario Metcalf Registered Referred [facility] February 26, 2020 9:54am Jose Kramer DO Registered Referred [facility] February 28, 2020 6:57am Jose Kramer DO Departed Emergency [facility] March 02, 2020 10:34am March 02, 2020 1:45pm null Departed Emergency [facility] March 05, 2020 2:01pm March 05, 2020 4:29pm null Departed Physician/Provider Office Visit [facility] March 11, 2020 9:28am March 11, 2020 10:13am Trice dimas NP Departed Physician/Provider Office Visit [facility] March 11, 2020 10:17am March 11, 2020 11:49am Pola Meadows MD Registered Referred [facility] March 11, 2020 11:56am Trice Aj NP Registered Referred [facility] March 12, 2020 11:38am Pola Meadows MD Departed Physician/Provider Office Visit [facility] March 12, 2020 12:22pm March 12, 2020 2:13pm Trice holbrook NP Departed Emergency [facility] March 13, 2020 9:18am March 13, 2020 10:18am null Departed Emergency [facility] March 25, 2020 7:55am March 25, 2020 9:27am null Departed Physician/Provider Office Visit [facility] March 25, 2020 2:51pm March 25, 2020 2:52pm Nathalie valerio Registered Referred [facility] Drop Off March 25, 2020 3:08pm Nathalie Pace Departed Physician/Provider Office Visit [facility] March 28, 2020 7:01am March 28, 2020 7:47am Trice dimas NP Registered Outpatient [facility] April 05, 2020 8:29am Trice Aj NP Registered Referred [facility] May 17, 2020 1:48pm Trice Aj NP Discharged Inpatient [facility] May 18, 2020 12:18am Septemb er 2019 2:40pm Tad Menendez MD Registered Outpatient [facility] May 20, 2020 2:25pm Amara Garcia RN Departed Physician/Provider Office Visit [facility] May 23, 2020 7:51am May 23, 2020 8:35am Trice jA NP Departed Physician/Provider Office Visit [facility] May 30, 2020 9:25am May 30, 2020 11:56am Nicol rincon NP Departed Physician/Provider Office Visit [facility] June 10, 2020 8:26am June 10, 2020 8:58am Jarret Herbert MD Departed Physician/Provider Office Visit [facility] June 28, 2020 3:47pm June 28, 2020 4:33pm Nicol Sebastian NP Departed Physician/Provider Office Visit [facility] July 01, 2020 9:04am July 01, 2020 11:04am Nicol Sebastian NP Registered Referred [facility] July 01, 2020 9:47am Kiersten Schulz DO Departed Emergency [facility] July 01, 2020 8:40pm July 02, 2020 12:20am null Departed Physician/Provider Office Visit [facility] July 04, 2020 11:14am July 04, 2020 12:47pm Nicol Sebastian NP Departed Physician/Provider Office Visit [facility] July 25, 2020 9:54am July 25, 2020 10:57am Nicol Sebastian NP Registered Referred [facility] July 30, 2020 9:45am Jaki Elias MD Departed Emergency [facility] August 03, 2020 1:29pm August 03, 2020 8:21pm null Departed Emergency [facility] August 09, 2020 6:19pm August 10, 2020 5:45am null Registered Referred [facility] August 14, 2020 9:29am Jarret Herbert MD Departed Physician/Provider Office Visit [facility] August 14, 2020 9:41am August 14, 2020 11:45am Patrick Herbert MD Departed Physician/Provider Office Visit [facility] August 20, 2020 9:00am August 20, 2020 9:20am Barrett Sparks MD Departed Physician/Provider Office Visit [facility] August 21, 2020 10:25am August 21, 2020 11:32am Jarret Herbert MD Registered Referred [facility] August 21, 2020 11:17am Jarret Herbert MD Departed Surgical Day Care [facility] August 22, 2020 6:20am August 22, 2020 10:05am Patrick Herbert MD Registered Outpatient [facility] August 22, 2020 8:00am Jarret Herbert MD Departed Physician/Provider Office Visit [facility] August 27, 2020 10:07am August 27, 2020 10:41am Jarret Herbert MD Departed Emergency [facility] August 30, 2020 6:50pm August 30, 2020 9:08pm null Departed Physician/Provider Office Visit [facility] September 02, 2020 10:06am September 02, 2020 4:34pm Jose Kramer DO Departed Physician/Provider Office Visit [facility] September 03, 2020 9:28am September 03, 2020 11:05am Jarret Herbert MD Departed Physician/Provider Office Visit [facility] September 05, 2020 11:10am September 05, 2020 11:48am Jarret Herbert MD Registered Referred [facility] September 05, 2020 11:47am Jarret Herbert MD Departed Emergency [facility] September 09, 2020 10:24pm September 10, 2020 1:21am null Departed Physician/Provider Office Visit [facility] September 11, 2020 11:04am September 11, 2020 11:59pm Jose Kramer DO Recent Diagnosis Onset Date [...] Response Neil e Recorded Functional Status Complete [place] May 18, 2020 1:30am Goals Goals may be documented in an alternate section. Immunizations No Immunization Information Available Mental Status Observation Response Neil e Recorded Impairments No impairments or barriers September 09, 2020 10:25pm Cognitive Status Normal Cognition May 18, 2020 1:30am Medical Equipment No Medical Equipment Information available Insurance Providers Guarantor ANNA MARIE BELTRAN Address [address] [place] [address] Contact Info. 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 Increase diet and exercise. Referral to [facility] for chronic inflammation. Elevate legs. 26 [...] Dr. July 26, 2020 for upper GI. [employer] rice, applesauce, bananas, and toast. Resolved. [...] that she has had counseling in the [facility], but symptoms are worse at this time, d/t recent move to [place]. Will continue current meds and will refer to psych. 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 Taking [...] palpation without abnormal physical find ings. Doubt [facility] cause but send urine culture in case. [...] Provider Provider Conta ct Information Provider Address Jarret Herbert MD Email: [email or web address] Phone: [address] [place] [address] c diff - treated with PO vancomycin Trice dimas NP Email: [email or web address] Phone: [place] [address] Call for an appointment to be seen in the next 48 hours Jose Kramer DO Email: [email or web address] Phone: [address] [place], [place] [phone] Call for an appointment for follow-up for Wednesday or Wednesday Jose Kramer DO Email: [email or web address] Phone: [address] [place] [phone] R21 - Rash and other nonspecific skin eruption September 11, 2020 Fide Hernandez PA-C [address] [place], [place] [id number] R79.89 - Other specified abnormal findin gs of blood chemistry,N17.9 - Acute kidney failure, unspecified September 02, 2020 electronics scale tester Future Procedures Future procedure information is unavailable Future Medications Future medication information is unavailable Patient Instructions Urinary Tract Infection in Women (DC) Abdominal Pain (ED) Urinary Tract Infection in Women (ED) Pharyngitis (ED) Upper Respiratory Infection (ED) High Fiber Diet (DC) C. Diff (Clostridioides Difficile) Infection (DC) Nutrition Tips for Relief of Diarrhea (DC) Dilation and Curettage (DC) Carbon Monoxide Poisoning (ED) Social History Smoking Status Status Date of Observation Never smoker September 09, 2020 11:0 6pm Observation Status Date of Observation Patient currently August 232020 Observation Status Observation Response Neil e of Response Smoking Status Never smoker September 09, 2020 11:06pm Substance Use No September 09, 2020 11:00pm Assigned Sex Female Vital Signs Vital Reading [...] 28, 2020 8:21am Respiratory rate 20 /min -March 28, 2020 8:21am Oxygen saturation by Pulse [...] 18, 2020 12:45pm Respiratory rate 20 /min 12-May 18, 2020 12:45pm Oxygen saturation by Pulse [...] 10, 2020 9:32am Respiratory rate 18 /min 12-24 June 10, 2020 9:32am Oxygen saturation by Pulse [...] 02, 2020 12:30am Heart Rate 92 /min 60-July 02, 2020 12:30am Respiratory rate 20 /min [...] 22, 2020 9:55am Respiratory rate 18 /min -August 22, 2020 9:55am Oxygen saturation by Pulse [...]
--- OUTSIDE RECORDS SUMMARY | 2020-10-18 09:44 | CCD | Continuity of Care Document ---
Author Author [facility] Address [address] [place] [address] Phone Support Name Relationship Address Phone Jose Kramer PRS [address] [place] [address] Polly Sen PRS [address] [place] [address] John Islas PRS [address] [place] [address] [place] [address] Pola Meadows [employer] [address] Pola Meadows PRS [address] [place] [address] Hiren Perez PRS [address] [place] [address] Nathalie Pace PRS [address] [place] [address] Verónica Sheriff PRS [address] [place] [address] Tad Menendez PRS [address] [place] [address] Amara Garcia PRS Unknown Unavailable Nicol Sebastian PRS [address] [place] [address] Darnell Herbert PRS [address] [place] [address] Kiersten Schulz PRS [address] [place] [address] Tutu [place] [address] Daljit Alex PRS [address] [place] [address] Niels Valdez PRS [address] [place] [address] Lynn Jain PRS [address] [place] [address] Barrett Sparks PRS [address] [place] [address] Moy Perazaaac PRS [address] [place] [address] [place] [address] Sravani Balderrama PRS [address] [place] [address] Allergies, Adverse Reactions, Alerts Allergen Type Severity Reaction Last Updated Verified Status cephalexin Allergy Moder ate Hives September 09, 2020 11:13pm Yes Active latex Allergy Moderate Rash September 09, 2020 11:13pm Yes Active ondansetron Allergy Mode rate Hives September 09, 2020 11:13pm Yes Active sulfamethoxazole Allergy Moderate Hives September 09, 2020 11:13pm Yes Active trimethoprim Allergy Mod erate Hives September 09, 2020 11:13pm Yes Active Medications Medication Status Dose Units [...] 11:52am administer 30 minutes before meals Meclizine Active 25 MG PO daily September 03, 2020 10:36am Nitrofurantoin Monohyd/M-Cryst (Macrobid) 100 mg capsu le [...] MG PO daily September 03, 2020 11:13am Problems Active Problems Medical Problem Onset Date Status Daytime sleepiness Act krzysztof Insomnia Active PTSD (post-traumatic stress disorder) Active [...] Performed Status Urine Culture September 09, 2020 active Urine Culture August 30, 2020 completed Influenza-Like [...] July 01, 2020 completed SARS-CoV-2 (PCR) Interpretation [facility] Abd/pel w/ contrast April 7:09pm completed Urine Culture May 18, 2020 completed Respiratory Panel (PCR) May 182019 completed Gastrointestinal Tract Panel (PCR) S [facility]2019 completed Xray Chest 2 view PA/LAT March [...] September 09, 2020 11:50pm 10.6 10e3/uL 4.45-10.71 [facility], [address] [place] [address] White Blood Count September 05, 2020 12:03pm 10.3 10e3/uL 4.45-10.71 [facility], [address] [place] [address] White Blood Count August 30, 2020 8:15pm 11.3 10e3/uL 4.45-10.71 [facility], [address] [place] [address] White Blood Count August 09 0 7:35pm 9.9 10e3/uL 4.45-10.71 [facility], [address] [place] [address] White Blood Count August 14 0 9:31am 9.8 10e3/uL 4.45-10.71 [facility], [address] [place] [address] White Blood Count August 03 0 2:35pm 8.6 10e3/uL 4.45-10.71 [facility], [address] [place] [address] White Blood Count July 01, 2020 9:40p m 11.2 10e3/uL 4.45-10.71 [facility], [address] [place] [address] White Blood Count May 18 6:17am 9.3 10e3/uL 4.45-10.71 [facility], [address] [place] [address] 53473 White Blood Count March 25, 2020 8:11am 10.8 10e3/uL 4.45-10.71 [facility], [address] [place] [address] White Blood Count March 11, 2020 12:14pm 11.3 10e3/uL 4.45-10.71 [facility], [address] [place] [address] White Blood Count March 02, 2020 11:00am 10.3 10e3/uL 4.45-10.71 [facility], [address] [place] [address] White Blood Count February 26, 2020 10:02am 9.8 10e3/uL 4.45-10.71 [facility], [address] [place] [address] White Blood Count February 20, 2020 8:35am 8.8 10e3/uL 4.45-10.71 [facility], [address] [place] [address] 68184 Red Blood Count September 09, 2020 11:50pm 4.49 10e6/uL 4.20-5.40 [facility], [address] [place] [address] Red Blood Count September 05, 2020 12:03pm 4.38 10e6/uL 4.20-5.40 [facility], [address] [place] [address] 23316 Red Blood Count August 30, 2020 8:15pm 4.26 10e6/uL 4.20-5.40 [facility], [address] [place] [address] 26440 Red Blood Count August 09, 2020 7:35pm 4.49 10e6/uL 4.20-5.40 [facility], [address] [place] [address] 63496 Red Blood Count August 14, 2020 9:31am 4.57 10e6/uL 4.20-5.40 [facility], [address] [place] [address] 86407 Red Blood Count August 03, 2020 2:35pm 4.47 10e6/uL 4.20-5.40 [facility], [address] [place] [address] Red Blood Count July 01, 2020 9:40pm 4.51 10e6/uL 4.20-5.40 [facility], [address] [place] [address] 14258 Red Blood Count May 18, 2020 6:17a m 4.10 10e6/uL 4.20-5.40 [facility], [address] [place] [address] 70193 Red Blood Count March 25, 2020 8:11am 4.25 10e6/uL 4.20-5.40 [facility], [address] [place] [address] 05096 Red Blood Count March 11, 2020 12:14pm 4.58 10e6/uL 4.20-5.40 [facility], [address] [place] [address] 95248 Red Blood Count March 02, 2020 11:00am 4.52 10e6/uL 4.20-5.40 [facility], [address] [place] [address] 03250 Red Blood Count February 26, 2020 10:02am 4.84 10e6/uL 4.20-5.40 [facility], [address] [place] [address] Red Blood Count February 20, 2020 8:35am 5.02 10e6/uL 4.20-5.40 [facility], [address] [place] [address] Hemoglobin September 09, 2020 11:50pm 11.4 g/dL 10.7-15.4 [facility], [address] [place] [address] Hemoglobin September 05, 2020 12:03pm 10.8 g/dL 10.7-15.4 [facility], [address] [place] [address] 45391 Hemoglobin August 30, 2020 8:15pm 10.5 g/dL 10.7-15.4 [facility], [address] [place] [address] Hemoglobin August 09, 2020 7:35pm 11.4 g/dL 10.7-15.4 [facility], [address] [place], [place] [id number] Hemoglobin August 14, 2020 9:31am 11.4 g/dL 10.7-15.4 [facility], [address] [place] [address] 57640 Hemoglobin August 03, 2020 2:35pm 11.5 g/dL 10.7-15.4 [facility], [address] [place] [address] 90775 Hemoglobin July 01, 2020 9:40pm 11.8 g/dL 10.7-15.4 [facility], [address] [place] [address] 80533 Hemoglobin May 18, 2020 6:17am 10.9 g/dL 10.7-15.4 [facility], [address] [place] [address] 78029 Hemoglobin March 25, 2020 8:11am 11.5 g/dL 10.7-15.4 [facility], [address] [place] [address] 68818 Hemoglobin March 11, 2020 12:14pm 12.4 g/dL 10.7-15.4 [facility], [address] [place] [address] Hemoglobin March 02, 2020 11:00am 12.1 g/dL 10.7-15.4 [facility], [address] [place] [address] 35972 Hemoglobin February 26, 2020 10:02am 13.0 g/dL 10.7-15.4 [facility], [address] [place] [address] Hemoglobin February 20, 2020 8:35am 13.4 g/dL 10.7-15.4 [facility], [address] [place] [address] 74813 Hematocrit September 09, 2020 11:50pm 35.9 % 37-47 [facility], [address] [place] [address] 66799 Hematocrit September 05, 2020 12:03pm 34.8 % 37-47 [facility], [address] [place] [address] 91646 Hematocrit August 30, 2020 8:15pm 34.4 % 37-47 [facility], [address] [place] [address] 98473 Hematocrit August 09, 2020 7:35pm 36.1 % 37-47 [facility], [address] [place] [address] 65058 Hematocrit August 14, 2020 9:31am 36.3 % 37-47 [facility], [address] [place] [address] 57441 Hematocrit August 03, 2020 2:35pm 36.1 % 37-47 [facility], [address] [place] [address] 83295 Hematocrit July 01, 2020 9:40pm 36.6 % 37-47 [facility], [address] [place] [address] 18068 Hematocrit May 18, 2020 6:17am 34.1 % 37-47 [facility], [address] [place] [address] 58830 Hematocrit March 25, 2020 8:11am 34.7 % 37-47 [facility], [address] [place] [address] 43590 Hematocrit March 11, 2020 12:14pm 37.2 % 37-47 [facility], [address] [place] [address] 16496 Hematocrit March 02, 2020 11:00am 36.9 % 37-47 [facility], [address] [place] [address] 41590 Hematocrit February 26, 2020 10:02am 39.4 % 37-47 [facility], [address] [place] [address] 02682 Hematocrit February 20, 2020 8:35am 41.0 % 37-47 [facility], [address] [place] [address] 94547 Mean Corpuscular Volume August 11:50pm 80.0 fl 80-96 [facility], [address] [place] [address] 32449 Mean Corpuscular Volume August 12:03pm 79.5 fl 80-96 [facility], [address] [place] [address] 44530 Mean Corpuscular Volume August 30, 2020 8:15pm 80.8 fl 80-96 [facility], [address] [place] [address] 58654 Mean Corpuscular Volume July h2019 7:35pm 80.[address] [facility], [address] [place] [address] 76043 Mean Corpuscular Volume July d2019 9:31am 79.4 fl 80-96 [facility], [address] [place] [address] 02323 Mean Corpuscular Volume July h2019 2:35pm 80.8 fl 80-96 [facility], [address] [place] [address] 77398 Mean Corpuscular Volume June 9:40pm 81.2 fl 80-[address] [place] [address] LABORATORY, [address] [place] [address] 88946 Mean Corpuscular Volume May 182019 6:17am 83.2 fl 80-96 [facility], [address] [place] [address] 14157 Mean Corpuscular Volume March 25, 2020 8:11am 81.6 fl 80-[address] [place] [address] LABORATORY, [address] [place] [address] 23653 Mean Corpuscular Volume March 11 020 12:14pm 81.2 fl 80-[address] [place] [address] LABORATORY, [address] [place] [address] 33259 Mean Corpuscular Volume March 02, 020 11:00am 81.6 fl 80-[address] [place] [address] LABORATORY, [address] [place] [address] 58784 Mean Corpuscular Volume February 25 10:02am 81.4 fl 80-[address] [place] [address] LABORATORY, [address] [place] [address] 19998 Mean Corpuscular Volume February 19, 020 8:35am 81.7 fl 80- [facility], [address] [place] [address] 75520 Mean Corpuscular Hemoglobin September 09, 2020 11:50pm 25.4 pg 27-31 [facility], [address] [place] [address] 14965 Mean Corpuscular Hemoglobin September 05, 2020 12:03pm 24.7 pg 27-31 [facility], [address] [place] [address] 27637 Mean Corpuscular Hemoglobin August 30, 2020 8:15pm 24.6 pg 27-31 [facility], [address] [place] [address] 23146 Mean Corpuscular Hemoglobin August 09, 2020 7:35pm 25.4 pg 27-31 [facility], [address] [place] [address] 89888 Mean Corpuscular Hemoglobin August 14, 2020 9:31am 24.9 pg 27-31 [facility], [address] [place] [address] 59902 Mean Corpuscular Hemoglobin August 03, 2020 2:35pm 25.7 pg 27-31 [facility], [address] [place] [address] 07994 Mean Corpuscular Hemoglobin July 01, 2020 9:40pm 26.2 pg 27-31 [facility], [address] [place] [address] 31592 Mean Corpuscular Hemoglobin 2019 6:17am 26.6 pg 27-31 [facility], [address] [place] [address] 93919 Mean Corpuscular Hemoglobin March 252019 8:11am 27.1 pg 27-31 [facility], [address] [place] [address] 92853 Mean Corpuscular Hemoglobin February 12:14pm 27.1 pg 27-31 [facility], [address] [place] [address] 42236 Mean Corpuscular Hemoglobin February 11:00am 26.8 pg 27-31 [facility], [address] [place] [address] 82316 Mean Corpuscular Hemoglobin February 10:02am 26.9 pg 27-31 [facility], [address] [place] [address] 64351 Mean Corpuscular Hemoglobin January 8:35am 26.7 pg 27-31 [facility], [address] [place] [address] 57289 Mean Corpuscular Hemoglobin Concent September 09, 2020 11:50pm 31.8 g/dl 37 [facility], [address] [place] [address] 57405 Mean Corpuscular Hemoglobin Concent September 05, 2020 12:03pm 31.0 g/dl [facility], [address] [place] [address] 60679 Mean Corpuscular Hemoglobin Concent August 30, 2020 8:15pm 30.5 g/dl [address] [place] [address] LABORATORY, [address] [place] [address] 74339 Mean Corpuscular Hemoglobin Concent August 09, 2020 7:35pm 31.6 g/dl [address] [place] [address] LABORATORY, [address] [place] [address] 29147 Mean Corpuscular Hemoglobin Concent August 14, 2020 9:31am 31.4 g/dl [address] [place] [address] LABORATORY, [address] [place] [address] 48147 Mean Corpuscular Hemoglobin Concent August 03, 2020 2:35pm 31.9 g/dl [address] [place] [address] LABORATORY, [address] [place] [address] 93210 Mean Corpuscular Hemoglobin Concent July 01, 2020 9:40pm 32.2 g/dl [address] [place] [address] LABORATORY, [address] [place] [address] 79990 Mean Corpuscular Hemoglobin Concent May 18, 2020 6:17am 32.0 g/dl [address] [place] [address] LABORATORY, [address] [place] [address] 11029 Mean Corpuscular Hemoglobin Concent March 25, 2020 8:11am 33.1 g/dl [address] [place] [address] LABORATORY, [address] [place] [address] 11187 Mean Corpuscular Hemoglobin Concent March 11, 2020 12:14pm 33.3 g/dl [address] [place] [address] LABORATORY, [address] [place] [address] 35351 Mean Corpuscular Hemoglobin Concent March 02, 2020 11:00am 32.8 g/dl [address] [place] [address] LABORATORY, [address] [place] [address] 64682 Mean Corpuscular Hemoglobin Concent February 26, 2020 10:02am 33.0 g/dl [address] [place] [address] LABORATORY, [address] [place] [address] 76945 Mean Corpuscular Hemoglobin Concent February 20, 2020 8:35am 32.7 g/dl [address] [place] [address] LABORATORY, [address] [place] [address] 78665 Red Cell Distribution Width September 09, 2020 11:50pm 16 % 11-15 [facility], [address] [place] [address] 58595 Red Cell Distribution Width September 05, 2020 12:03pm 16 % 11-15 [facility], [address] [place] [address] 21642 Red Cell Distribution Width August 30, 2020 8:15pm 15 % 11-15 [facility], [address] [place] [address] 63663 Red Cell Distribution Width August 09, 2020 7:35pm 14 % 11-15 [facility], [address] [place] [address] 21544 Red Cell Distribution Width August 14, 2020 9:31am 15 % 11-15 [facility], [address] [place] [address] 74538 Red Cell Distribution Width August 03, 2020 2:35pm 14 % 11-15 [facility], [address] [place] [address] 81597 Red Cell Distribution Width July 01, 2020 9:40pm 14 % 11-15 [facility], [address] [place] [address] 76313 Red Cell Distribution Width 2019 6:17am 14 % 11-15 [facility], [address] [place] [address] 77585 Red Cell Distribution Width March 252019 8:11am 15 % 11-15 [facility], [address] [place] [address] 96594 Red Cell Distribution Width February 12:14pm 15 % 11-15 [facility], [address] [place] [address] 86210 Red Cell Distribution Width February h2019 11:00am 14 % 11-15 [facility], [address] [place] [address] 94186 Red Cell Distribution Width February 10:02am 14 % 11-15 [facility], [address] [place] [address] 36374 Red Cell Distribution Width January 8:35am 15 % 11-15 [facility], [address] [place] [address] 24565 Platelet Count September 09, 2020 11:50pm 392 10e3/ul 130-472 [facility], [address] [place] [address] Platelet Count September 05, 2020 12:03pm 417 10e3/ul 130-472 [facility], [address] [place] [address] 66004 Platelet Count August 30, 2020 8:15pm 422 10e3/ul 130-472 [facility], [address] [place] [address] Platelet Count August 09, 2020 7:35pm 423 10e3/ul 130-472 [facility], [address] [place] [address] Platelet Count August 14, 2020 9:31am 429 10e3/ul 130-472 [facility], [address] [place] [address] 35636 Platelet Count August 03, 2020 2:35pm 372 10e3/ul 130-472 [facility], [address] [place] [address] 61357 Platelet Count July 01, 2020 9:40pm 392 10e3/ul 130-472 [facility], [address] [place] [address] 25968 Platelet Count May 18, 2020 6:17am 332 10e3/ul 130-472 [facility], [address] [place] [address] 41711 Platelet Count March 25, 2020 8:11am 395 10e3/ul 130-472 [facility], [address] [place] [address] 34549 Platelet Count March 11, 2020 12:14pm 460 10e3/ul 130-472 [facility], [address] [place] [address] 46145 Platelet Count March 02, 2020 11:00am 410 10e3/ul 130-472 [facility], [address] [place] [address] 43303 Platelet Count February 26, 2020 10:02am 436 10e3/ul 130-472 [facility], [address] [place] [address] 00850 Platelet Count February 20, 2020 8:35am 479 10e3/ul 130-472 [facility], [address] [place] [address] Mean Platelet Volume September 09, 021 11:50pm 8.6 fl 9.1-13.1 [facility], [address] [place] [address] Mean Platelet Volume September 05, 2 021 12:03pm 8.6 fl 9.1-13.1 [facility], [address] [place] [address] Mean Platelet Volume August 30 8:15pm 8.7 fl 9.1-13.1 [facility], [address] [place] [address] Mean Platelet Volume August 09, 2020 7:35pm 8.9 fl 9.1-13.1 [facility], [address] [place] [address] Mean Platelet Volume August 14, 2020 9:31am 8.9 fl 9.1-13.1 [facility], [address] [place] [address] 17628 Mean Platelet Volume August 03, 2020 2:35pm 9.0 fl 9.1-13.1 [facility], [address] [place] [address] 70464 Mean Platelet Volume July 01, 9:40pm 8.6 fl 9.1-13.1 [facility], [address] [place] [address] 18754 Mean Platelet Volume May 18, 2020 6:17am 8.6 fl 9.1-13.1 [facility], [address] [place] [address] 64249 Mean Platelet Volume March 25 0 8:11am 8.3 fl 9.1-13.1 [facility], [address] [place] [address] 96186 Mean Platelet Volume March 11, 2020 12:14pm 8.4 fl 9.1-13.1 [facility], [address] [place] [address] 44961 Mean Platelet Volume March 02, 2020 11:00am 8.6 fl 9.1-13.1 [facility], [address] [place] [address] 28577 Mean Platelet Volume February 26, 2020 10:02a m 8.7 fl 9.1-13.1 [facility], [address] [place] [address] 85079 Mean Platelet Volume February 20, 2020 8:35a m 8.7 fl 9.1-13.1 [facility], [address] [place] [address] 52033 Neutrophils (%) (Auto) September 09, 2020 11:50pm 66.3 % [address] [place] [address] LABORATORY, [address] [place] [address] 64919 Neutrophils (%) (Auto) September 05, 2020 12:03pm 74.5 % [address] LABOR[facility]ORY, [address] [place] [address] 00114 Neutrophils (%) (Auto) August 30, 2020 8:15pm 69.3 % [address] [place] [address] LABORATORY, [address] [place] [address] 87012 Neutrophils (%) (Auto) July 7:35pm 71.3 % [address] [place] [address] LABORATORY, [address] [place] [address] 91480 Neutrophils (%) (Auto) July 9:31am 63.7 % [address] [place] [address] LABORATORY, [address] [place] [address] 56961 Neutrophils (%) (Auto) July 2:35pm 68.8 % [address] [place] [address] LABORATORY, [address] [place] [address] 42754 Neutrophils (%) (Auto) July 01, 2020 9:40pm 66.3 % [address] [place] [address] LABORATORY, [address] [place] [address] 74806 Neutrophils (%) (Auto) April 6:17am 66.1 % [address] [place] [address] LABORATORY, [address] [place] [address] 81199 Neutrophils (%) (Auto) March 25 020 8:11am 58.4 % [address] [place] [address] LABORATORY, [address] [place] [address] 54536 Neutrophils (%) (Auto) March 11 12:14pm 72.2 % [address] [place] [address] LABORATORY, [address] [place] [address] 38968 Neutrophils (%) (Auto) March 02 11:00am 65.4 % [address] [place] [address] LABORATORY, [address] [place] [address] 21905 Neutrophils (%) (Auto) February 25 0 10:02am 62.6 % [address] [place] [address] LABORATORY, [address] [place] [address] 61913 Neutrophils (%) (Auto) February 19 8:35am 62.4 % [address] [place] [address] LABORATORY, [address] [place] [address] 31263 Absolute Neutrophil September 09 11:50pm 7.0 # 1.7-7.6 [facility], [address] [place] [address] [id number] Absolute Neutrophil September 05 12:03pm 7.7 # 1.7-7.6 [facility], [address] [place] [address] 17152 Absolute Neutrophil August 30 8:15pm 7.8 # 1.7-7.6 [facility], [address] [place] [address] 88191 Absolute Neutrophil August 09, 020 7:35pm 7.0 # 1.7-7.6 [facility], [address] [place] [address] 97097 Absolute Neutrophil August 14, 2 020 9:31am 6.2 # 1.7-7.6 [facility], [address] [place] [address] 35152 Absolute Neutrophil August 03 2:35pm 5.9 # 1.7-7.6 [facility], [address] [place] [address] 33144 Absolute Neutrophil July 01 9:40pm 7.5 # 1.7-7.6 [facility], [address] [place] [address] 93994 Absolute Neutrophil May 18, 2020 6:17am 6.1 # 1.7-7.6 [facility], [address] [place] [address] 65154 Absolute Neutrophil March 25, 2020 8:11a m 6.3 # 1.7-7.6 [facility], [address] [place] [address] 670[address] Absolute Neutrophil March 11, 2020 12:14p m 8.1 # 1.7-7.6 [facility], [address] [place] [address] 05044 Absolute Neutrophil March 02, 2020 11:00a m 6.7 # 1.7-7.6 [facility], [address] [place] [address] 63198 Absolute Neutrophil February 26, 2020 10:02am 6.1 # 1.7-7.6 [facility], [address] [place] [address] 88961 Absolute Neutrophil February 20, 2020 8:35am 5.5 # 1.7-7.6 [facility], [address] [place] [address] 31900 Lymphocytes (%) (Auto) September 09, 2020 11:50pm 23.0 % 14-46 [facility], [address] [place] [address] 61019 Lymphocytes (%) (Auto) September 05, 2020 12:03pm 17.6 % 14-46 [facility], [address] [place] [address] 17259 Lymphocytes (%) (Auto) August 30, 2020 8:15pm 20.7 % 14-46 [facility], [address] [place] [address] 76744 Lymphocytes (%) (Auto) July 7:35pm 19.4 % 14-46 [facility], [address] [place] [address] 93951 Lymphocytes (%) (Auto) July 9:31am 25.9 % 14-46 [facility], [address] [place] [address] 55786 Lymphocytes (%) (Auto) July 2:35pm 20.2 % [address] [facility], [address] [place] [address] 82615 Lymphocytes (%) (Auto) July 01, 2020 9:40pm 21.4 % [address] [facility], [address] [place] [address] 43628 Lymphocytes (%) (Auto) April 6:17am 22.8 % [address] [facility], [address] [place] [address] 65021 Lymphocytes (%) (Auto) March 25 8:11am 30.4 % [address] [facility], [address] [place] [address] 87099 Lymphocytes (%) (Auto) March 11 12:14pm 19.0 % [address] [facility], [address] [place] [address] 67903 Lymphocytes (%) (Auto) March 02 11:00am 23.6 % [address] [facility], [address] [place] [address] 98247 Lymphocytes (%) (Auto) February 25 0 10:02am 25.4 % [address] [facility], [address] [place] [address] 53888 Lymphocytes (%) (Auto) February 19 8:35am 26.5 % [address] [facility], [address] [place] [address] 74949 Lymphocytes # (Auto) September 09 11:50pm 2.4 # 0.6-4.6 [facility], [address] [place] [address] 06048 Lymphocytes # (Auto) September 05, 021 12:03pm 1.8 # 0.6-4.6 [facility], [address] [place] [address] 28219 Lymphocytes # (Auto) August 30 8:15pm 2.3 # 0.6-4.6 [facility], [address] [place] [address] 07112 Lymphocytes # (Auto) August 09, 2020 7:35pm 1.9 # 0.6-4.6 [facility], [address] [place] [address] 73668 Lymphocytes # (Auto) August 14, 2020 9:31am 2.5 # 0.6-4.6 [facility], [address] [place] [address] 82560 Lymphocytes # (Auto) August 03, 2020 2:35pm 1.7 # 0.6-4.6 [facility], [address] [place] [address] 97881 Lymphocytes # (Auto) July 01 020 9:40pm 2.4 # 0.6-4.6 [facility], [address] [place] [address] 13093 Lymphocytes # (Auto) May 18, 2020 6:17am 2.1 # 0.6-4.6 [facility], [address] [place] [address] 35284 Lymphocytes # (Auto) March 25 0 8:11am 3.3 # 0.6-4.6 [facility], [address] [place] [address] 14104 Lymphocytes # (Auto) March 11, 2020 12:14pm 2.1 # 0.6-4.6 [facility], [address] [place] [address] 43839 Lymphocytes # (Auto) March 02, 2020 11:00am 2.4 # 0.6-4.6 [facility], [address] [place] [address] 73595 Lymphocytes # (Auto) February 26, 2020 10:02a m 2.5 # 0.6-4.6 [facility], [address] [place] [address] 41695 Lymphocytes # (Auto) February 20, 2020 8:35a m 2.3 # 0.6-4.6 [facility], [address] [place] [address] 79318 Monocytes (%) (Auto) September 09 021 11:50pm 7.1 % 4-12 [facility], [address] [place] [address] 06153 Monocytes (%) (Auto) September 05 021 12:03pm 5.4 % 4-12 [facility], [address] [place] [address] 21909 Monocytes (%) (Auto) August 30 8:15pm 6.8 % 4-12 [facility], [address] [place] [address] 93713 Monocytes (%) (Auto) August 09, 2020 7:35pm 7.0 % 4-12 [facility], [address] [place] [address] 84384 Monocytes (%) (Auto) August 14, 2020 9:31am 6.9 % 412 [facility], [address] [place] [address] 51009 Monocytes (%) (Auto) August 03, 2020 2:35pm 8.3 % 412 [facility], [address] [place] [address] 84350 Monocytes (%) (Auto) July 01 9:40pm 8.9 % [address] [facility], [address] [place] [address] 34664 Monocytes (%) (Auto) May 18, 2020 6:17am 8.7 % [address] [facility], [address] [place] [address] 82609 Monocytes (%) (Auto) March 25 0 8:11am 7.7 % [address] [facility], [address] [place] [address] 24174 Monocytes (%) (Auto) March 11, 2020 12:14pm 5.5 % [address] [facility], [address] [place] [address] 95761 Monocytes (%) (Auto) March 02, 2020 11:00am 7.8 % [address] [facility], [address] [place] [address] 87774 Monocytes (%) (Auto) February 26, 2020 10:02a m 8.2 % [address] [facility], [address] [place] [address] 41941 Monocytes (%) (Auto) February 20, 2020 8:35a m 8.0 % [address] [facility], [address] [place] [address] 24687 Monocytes # September 09, 2020 11:50pm 0.8 # 0.2-1.2 [facility], [address] [place] [address] 36585 Monocytes # September 05, 2020 12:03pm 0.6 # 0.2-1.2 [facility], [address] [place] [address] 72707 Monocytes # August 30, 2020 8:15pm 0.8 # 0.2-1.2 [facility], [address] [place] [address] 35131 Monocytes # August 09, 2020 7:35pm 0.7 # 0.2-1.2 [facility], [address] [place] [address] 92598 Monocytes # August 14, 2020 9:31am 0.7 # 0.2-1.2 [facility], [address] [place] [address] 68611 Monocytes # August 03, 2020 2:35pm 0.7 # 0.2-1.2 [facility], [address] [place] [address] 42816 Monocytes # July 01, 2020 9:40pm 1.0 # 0.2-1.2 [facility], [address] [place] [address] 62471 Monocytes # May 18, 2020 6:17am 0.8 # 0.2-1.2 [facility], [address] [place] [address] 19878 Monocytes # March 25, 2020 8:11am 0.8 # 0.2-1.2 [facility], [address] [place] [address] 44614 Monocytes # March 11, 2020 12:14pm 0.6 # 0.2-1.2 [facility], [address] [place] [address] 78953 Monocytes # March 02, 2020 11:00am 0.8 # 0.2-1.2 [facility], [address] [place] [address] 25364 Monocytes # February 26, 2020 10:02am 0.8 # 0.2-1.2 [facility], [address] [place] [address] 16710 Monocytes # February 20, 2020 8:35am 0.7 # 0.2-1.2 [facility], [address] [place] [address] 77820 Eosinophils (%) (Auto) September 09, 2020 11:50pm 2.9 % 0-7 [facility], [address] [place] [address] 24902 Eosinophils (%) (Auto) September 05, 2020 12:03pm 1.8 % 0-7 [facility], [address] [place] [address] 00224 Eosinophils (%) (Auto) August 30, 2020 8:15pm 2.4 % 0-7 [facility], [address] [place] [address] 05868 Eosinophils (%) (Auto) July 7:35pm 1.8 % 0-7 [facility], [address] [place] [address] 96449 Eosinophils (%) (Auto) July 9:31am 3.0 % 0-7 [facility], [address] [place] [address] 63808 Eosinophils (%) (Auto) July 2:35pm 2.2 % 0-7 [facility], [address] [place] [address] 65877 Eosinophils (%) (Auto) July 01, 2020 9:40pm 2.7 % 0-7 [facility], [address] [place] [address] 17674 Eosinophils (%) (Auto) April 6:17am 1.9 % 0-7 [facility], [address] [place] [address] 76852 Eosinophils (%) (Auto) March 25 8:11am 2.7 % 0-7 [facility], [address] [place] [address] 71578 Eosinophils (%) (Auto) March 11 12:14pm 2.5 % 0-7 [facility], [address] [place] [address] 96626 Eosinophils (%) (Auto) March 02 11:00am 2.4 % 0-7 [facility], [address] [place] [address] 30562 Eosinophils (%) (Auto) February 25 0 10:02am 3.1 % 0-7 [facility], [address] [place] [address] 68657 Eosinophils (%) (Auto) February 19 8:35am 2.6 % 0-7 [facility], [address] [place] [address] 53445 Absolute Eosinophils (CBC) August 232020 11:50pm 0.3 # 0.0-0.5 [facility], [address] [place] [address] 10134 Absolute Eosinophils (CBC) August 232020 12:03pm 0.2 # 0.0-0.5 [facility], [address] [place] [address] 79226 Absolute Eosinophils (CBC) August 302020 8:15pm 0.3 # 0.0-0.5 [facility], [address] [place] [address] 65557 Absolute Eosinophils (CBC) August 09, 2020 7:35pm 0.2 # 0.0-0.5 [facility], [address] [place] [address] 91050 Absolute Eosinophils (CBC) August 14, 2020 9:31am 0.3 # 0.0-0.5 [facility], [address] [place] [address] 87349 Absolute Eosinophils (CBC) August 03, 2020 2:35pm 0.2 # 0.0-0.5 [facility], [address] [place] [address] 46744 Absolute Eosinophils (CBC) July 01, 2020 9:40pm 0.3 # 0.0-0.5 [facility], [address] [place] [address] Absolute Eosinophils (CBC) May 18, 2020 6:17am 0.2 # 0.0-0.5 [facility], [address] [place] [address] Absolute Eosinophils (CBC) March 8:11am 0.3 # 0.0-0.5 [facility], [address] [place] [address] Absolute Eosinophils (CBC) February 12:14pm 0.3 # 0.0-0.5 [facility], [address] [place] [address] Absolute Eosinophils (CBC) February 11:00am 0.3 # 0.0-0.5 [facility], [address] [place] [address] Absolute Eosinophils (CBC) February 26, 2020 10:02am 0.3 # 0.0-0.5 [facility], [address] [place] [address] Absolute Eosinophils (CBC) January 8:35am 0.2 # 0.0-0.5 [facility], [address] [place] [address] 31492 Basophils (%) (Auto) September 09 021 11:50pm 0.3 % 0.4-1.3 [facility], [address] [place] [address] 51238 Basophils (%) (Auto) September 05, 021 12:03pm 0.4 % 0.4-1.3 [facility], [address] [place] [address] 98740 Basophils (%) (Auto) August 30 8:15pm 0.4 % 0.4-1.3 [facility], [address] [place] [address] 89043 Basophils (%) (Auto) August 09, 2020 7:35pm 0.3 % 0.4-1.3 [facility], [address] [place], [place] [address] Basophils (%) (Auto) August 14, 2020 9:31am 0.3 % 0.4-1.3 [facility], [address] [place] [address] 13909 Basophils (%) (Auto) August 03, 2020 2:35pm 0.3 % 0.4-1.3 [facility], [address] [place] [address] 64804 Basophils (%) (Auto) July 01 020 9:40pm 0.4 % 0.4-1.3 [facility], [address] [place] [address] 14909 Basophils (%) (Auto) May 18, 2020 6:17am 0.3 % 0.4-1.3 [facility], [address] [place] [address] 97204 Basophils (%) (Auto) March 25 0 8:11am 0.5 % 0.4-1.3 [facility], [address] [place] [address] 42155 Basophils (%) (Auto) March 11, 2020 12:14pm 0.4 % 0.4-1.3 [facility], [address] [place] [address] 57659 Basophils (%) (Auto) March 02, 2020 11:00am 0.5 % 0.4-1.3 [facility], [address] [place] [address] 40512 Basophils (%) (Auto) February 26, 2020 10:02a m 0.4 % 0.4-1.3 [facility], [address] [place] [address] 36247 Basophils (%) (Auto) February 20, 2020 8:35a m 0.3 % 0.4-1.3 [facility], [address] [place] [address] 27922 Absolute Basophils (CBC) August 18t h, 2020 11:50pm 0.0 # 0.0-0.2 [facility], [address] [place] [address] 78387 Absolute Basophils (CBC) August h, 2020 12:03pm 0.0 # 0.0-0.2 [facility], [address] [place] [address] 68322 Absolute Basophils (CBC) August 8:15pm 0.1 # 0.0-0.2 [facility], [address] [place] [address] 57188 Absolute Basophils (CBC) August 092019 7:35pm 0.0 # 0.0-0.2 [facility], [address] [place] [address] 86796 Absolute Basophils (CBC) August 142019 9:31am 0.0 # 0.0-0.2 [facility], [address] [place] [address] 39844 Absolute Basophils (CBC) August 032019 2:35pm 0.0 # 0.0-0.2 [facility], [address] [place] [address] 81199 Absolute Basophils (CBC) June 9:40pm 0.0 # 0.0-0.2 [facility], [address] [place] [address] Absolute Basophils (CBC) April 242019 6:17am 0.0 # 0.0-0.2 [facility], [address] [place] [address] 29509 Absolute Basophils (CBC) March 25, 2020 8:11am 0.1 # 0.0-0.2 [facility], [address] [place] [address] 02951 Absolute Basophils (CBC) March 11, 2020 12:14pm 0.0 # 0.0-0.2 [facility], [address] [place] [address] 00076 Absolute Basophils (CBC) March 02, 2020 11:00am 0.1 # 0.0-0.2 [facility], [address] [place] [address] 77356 Absolute Basophils (CBC) February 25 10:02am 0.0 # 0.0-0.2 [facility], [address] [place] [address] 67065 Absolute Basophils (CBC) February 20, 2020 8:35am 0.0 # 0.0-0.2 [facility], [address] [place] [address] 75193 Immature Granulocyte % (Auto) Auguar y 2020 11:50pm 0.4 % 0-2 [facility], [address] [place] [address] 89654 Immature Granulocyte % (Auto) Auguar y 2020 12:03pm 0.3 % 0-2 [facility], [address] [place] [address] 08508 Immature Granulocyte % (Auto) Auguar y 2020 8:15pm 0.4 % 0-2 [facility], [address] [place] [address] 51531 Immature Granulocyte % (Auto) [facility] er 2019 7:35pm 0.2 % 0-2 [facility], [address] [place] [address] 11973 Immature Granulocyte % (Auto) [facility] er 2019 9:31am 0.2 % 0-2 [facility], [address] [place] [address] 22617 Immature Granulocyte % (Auto) [facility] er 2019 2:35pm 0.2 % 0-2 [facility], [address] [place] [address] 34566 Immature Granulocyte % (Auto) [facility] er 2019 9:40pm 0.3 % 0-2 [facility], [address] [place] [address] 59039 Immature Granulocyte % (Auto) Sept2019 6:17am 0.2 % 0-2 [facility], [address] [place] [address] 56751 Immature Granulocyte % (Auto) March 25, 2020 8:11am 0.3 % 0-2 [facility], [address] [place] [address] 85534 Immature Granulocyte % (Auto) February 212019 12:14pm 0.4 % 0-2 [facility], [address] [place] [address] 54743 Immature Granulocyte % (Auto) February 202019 11:00am 0.3 % 0-2 [facility], [address] [place] [address] 34685 Immature Granulocyte % (Auto) February 252019 10:02am 0.3 % 0-2 [facility], [address] [place] [address] 23655 Immature Granulocyte % (Auto) January 232019 8:35am 0.2 % 0-2 [facility], [address] [place] [address] 40428 Absolute Immature Granulocyte (auto September 09, 2020 11:50pm 0.0 # 0-0.1 [facility], [address] [place] [address] 62567 Absolute Immature Granulocyte (auto September 05, 2020 12:03pm 0.0 # 0-0.1 [facility], [address] [place] [address] 01099 Absolute Immature Granulocyte (auto August 30, 2020 8:15pm 0.0 # 0-0.1 [facility], [address] [place] [address] 68850 Absolute Immature Granulocyte (auto August 09, 2020 7:35pm 0.0 # 0-0.1 [facility], [address] [place] [address] Absolute Immature Granulocyte (auto August 14, 2020 9:31am 0.0 # 0-0.1 [facility], [address] [place] [address] Absolute Immature Granulocyte (auto August 03, 2020 2:35pm 0.0 # 0-0.1 [facility], [address] [place] [address] Absolute Immature Granulocyte (auto July 01, 2020 9:40pm 0.0 # 0-0.1 [facility], [address] [place] [address] Absolute Immature Granulocyte (auto May 18, 2020 6:17am 0.0 # 0-0.1 [facility], [address] [place] [address] Absolute Immature Granulocyte (auto March 25, 2020 8:11am 0.0 # 0-0.1 [facility], [address] [place] [address] Absolute Immature Granulocyte (auto March 11, 2020 12:14pm 0.0 # 0-0.1 [facility], [address] [place] [place] [address] Absolute Immature Granulocyte (auto March 02, 2020 11:00am 0.0 # 0-0.1 [facility], [address] [place] [place] [address] Absolute Immature Granulocyte (auto February 26, 2020 10:02am 0.0 # 0-0.1 [facility], [address] [place], [place] [id number] Absolute Immature Granulocyte (auto February 20, 2020 8:35am 0.0 # 0-0.1 [facility], [address] [place] [address] 15596 Add Manual Differential August 11:50pm No [facility], [address] [place] [address] 95174 Add Manual Differential August 12:03pm No [facility], [address] [place] [address] 54941 Add Manual Differential August 30, 2020 8:15pm No [facility], [address] [place] [address] 77579 Add Manual Differential July 7:35pm No [facility], [address] [place] [address] 92191 Add Manual Differential July d2019 9:31am No [facility], [address] [place] [address] 58606 Add Manual Differential July 2:35pm No [facility], [address] [place] [address] 75671 Add Manual Differential June 9:40pm No [facility], [address] [place] [address] 59401 Add Manual Differential May 182019 6:17am No [facility], [address] [place] [address] 88768 Add Manual Differential March 25, 2020 8:11am No [facility], [address] [place] [address] 11788 Add Manual Differential March 11 12:14pm No [facility], [address] [place] [address] 82194 Add Manual Differential March 02 11:00am No [facility], [address] [place] [address] 63468 Add Manual Differential February 25 10:02am No [facility], [address] [place] [address] 55206 Add Manual Differential February 19 8:35am No [facility], [address] [place] [address] 74667 Differential Total Cells Counted Apr 7:20pm 100 [facility], [address] [place] [address] 29069 Neutrophils (Manual) May 17, 2020 7:20pm 77 % 41-77 [facility], [address] [place] [address] 50649 Band Neutrophils May 17 0 7:20pm 3 % 0-5 [facility], [address] [place] [address] 98518 Lymphocytes (Manual) May 17, 2020 7:20pm 17 % 14-46 [facility], [address] [place] [address] 76950 Monocytes (Manual) May 17 7:20pm 3 % 4-12 [facility], [address] [place] [address] 91441 Platelet Estimate May 17 7:20pm Appears normal NORMAL [facility], [address] [place] [address] 18551 RBC Morphology 2 May 17 0 7:20pm Appears normal NORMAL [facility], [address] [place] [address] 47914 Urine Color May 18, 2020 12:15am Yellow [facility], [address] [place] [address] 63056 Urine Color February 20, 2020 8:40am Yellow [facility], [address] [place] [address] 14003 Urine Color September 09, 2020 10:50pm Brown [facility], [address] [place] [address] 08872 Urine Color August 30, 2020 8:15pm [place] [facility], [address] [place] [address] 55468 Urine Color August 09, 2020 8:06pm Yellow [facility], [address] [place] [address] 69696 Urine Color August 03, 2020 2:50pm Yellow [facility], [address] [place] [address] 78272 Urine Color July 01, 2020 9:30pm Yellow [facility], [address] [place] [address] 41362 Urine Color March 25, 2020 8:05am Yellow [facility], [address] [place] [address] 87901 Urine Color March 11, 2020 11:00am Yellow [facility], [address] [place] [address] 88698 Urine Color March 05, 2020 2:29pm Yellow [facility], [address] [place] [address] 68925 Urine Color March 02, 2020 10:48am Yellow [facility], [address] [place] [address] 87787 Urine Appearance September 09, 2020 10:50p m [facility], [address] [place] [address] 50068 Urine Appearance August 30, 2020 8:15pm Turbid [facility], [address] [place] [address] 29497 Urine Appearance August 09, 2020 8:06p m Clear [facility], [address] [place] [address] 52471 Urine Appearance August 03, 2020 2:50p m Clear [facility], [address] [place] [address] 57115 Urine Appearance July 01, 2020 9:30pm Cloudy [facility], [address] [place] [address] 03259 Urine Appearance May 18 12:15am Clear [facility], [address] [place] [address] 92827 Urine Appearance March 25, 2020 8:05am Cloudy [facility], [address] [place] [address] 86167 Urine Appearance March 11, 2020 11:00am Cloudy [facility], [address] [place] [address] 77325 Urine Appearance March 05, 2020 2:29pm Cloud[facility], [address] [place] [address] 78854 Urine Appearance March 02, 2020 10:48am Cloudy [facility], [address] [place] [address] 87165 Urine Appearance February 20, 2020 8:40am T[facility]id [facility], [address] [place] [address] 21251 Urine pH September 09, 2020 10:50pm 5.5 [facility], [address] [place] [address] 21318 Urine pH August 30, 2020 8:15pm 6.5 [facility], [address] [place] [place] [address] 79978 Urine pH August 09, 2020 8:06pm 6.5 [facility], [address] [place] [address] 33196 Urine pH August 03, 2020 2:50pm 7.5 [facility], [address] [place] [address] 12737 Urine pH July 01, 2020 9:30pm 6.0 [facility], [address] [place] [address] 56273 Urine pH May 18, 2020 12:15am 6.0 [facility], [address] [place] [address] 33068 Urine pH March 25, 2020 8:05am 5.5 [facility], [address] [place] [address] 84408 Urine pH March 11, 2020 11:00am 6.5 [facility], [address] [place] [address] 69503 Urine pH March 05, 2020 2:29pm 6.0 [facility], [address] [place] [address] 81285 Urine pH March 02, 2020 10:48am 5.5 [facility], [address] [place] [address] 66942 Urine pH February 20, 2020 8:40am 5.5 [facility], [address] [place] [address] 16967 Urine Specific [place] September 09, 2020 10:50pm 1.035 [facility], [address] [place] [address] 90138 Urine Specific [place] August 30, 2020 8:15pm 1.033 [facility], [address] [place] [address] 94311 Urine Specific [place] July 8:06pm 1.022 [facility], [address] [place] [address] Urine Specific [place] July 2:50pm 1.020 [facility], [address] [place] [address] 99810 Urine Specific [place] July 01, 2020 9:30pm 1.026 [facility], [address] [place] [address] Urine Specific [place] April 12:15am >1.045 [facility], [address] [place] [address] Urine Specific [place] March 25 8:05am 1.025 [facility], [address] [place] [address] Urine Specific [place] March 11 11:00am 1.025 [facility], [address] [place] [address] Urine Specific [place] March 05 2:29pm 1.021 [facility], [address] [place] [address] Urine Specific [place] March 02 10:48am 1.025 [facility], [address] [place] [address] Urine Specific [place] February 19 8:40am 1.023 [facility], [address] [place] [address] Urine Leukocyte Esterase April 242019 12:15am Negative NEGATIVE [facility], [address] [place] [address] Urine Leukocyte Esterase February 20, 2020 8:40am Moderate NEGATIVE [facility], [address] [place] [address] Urine Leukocyte Esterase August 10:50pm Small NEGATIVE A Culture has been added to this specimen per established criteria [facility], [address] [place] [address] Urine Leukocyte Esterase August 8:15pm Small NEGATIVE A Culture has been added to this specimen per established criteria [facility], [address] [place] [address] Urine Leukocyte Esterase August 092019 8:06pm Small NEGATIVE A Culture has been added to this specimen per established criteria [facility], [address] [place] [address] Urine Leukocyte Esterase August [id number] 2:50pm Small NEGATIVE A Culture has been added to this specimen per established criteria [facility], [address] [place] [address] Urine Leukocyte Esterase June 9:30pm Small NEGATIVE A Culture has been added to this specimen per established criteria [facility], [address] [place] [address] Urine Leukocyte Esterase March 25, 2020 8:05am Trace NEGATIVE A Culture has been added to this specimen per established criteria [facility], [address] [place] [address] Urine Leukocyte Esterase March 11, 2020 11:00am Trace NEGATIVE A Culture has been added to this specimen per established criteria [facility], [address] [place] [address] Urine Leukocyte Esterase March 05, 2020 2:29pm Trace NEGATIVE A Culture has been added to this specimen per established criteria [facility], [address] [place] [address] Urine Leukocyte Esterase March 02, 2020 10:48am Trace NEGATIVE A Culture has been added to this specimen per established criteria [facility], [address] [place] [address] Urine Nitrite May 18, 2020 12:15am Negative NEGATIVE [facility], [address] [place] [address] Urine Nitrite February 20, 2020 8:40am Negative NEGATIVE [facility], [address] [place] [address] Urine Nitrate September 09, 2020 10:50pm Positive NEGATIVE A Culture has been added to this specimen per established criteria [facility], [address] [place] [address] 72294 Urine Nitrate August 30, 2020 8:15pm Negative NEGATIVE [facility], [address] [place] [address] Urine Nitrate August 09, 2020 8:06pm Negative NEGATIVE [facility], [address] [place] [address] Urine Nitrate August 03, 2020 2:50pm Negative NEGATIVE [facility], [address] [place] [address] Urine Nitrate July 01, 2020 9:30pm Negative NEGATIVE [facility], [address] [place] [address] Urine Nitrate March 25, 2020 8:05am Negative NEGATIVE [facility], [address] [place] [address] Urine Nitrate March 11, 2020 11:00am Negative NEGATIVE [facility], [address] [place] [address] Urine Nitrate March 05, 2020 2:29pm Negative NEGATIVE [facility], [address] [place] [address] Urine Nitrate March 02, 2020 10:48am Negative NEGATIVE [facility], [address] [place] [address] Urine Protein September 09, 2020 10:50pm 30 mg/dl NEGATIVE [facility], [address] [place] [address] 72053 Urine Protein August 30, 2020 8:15pm 30 mg/dl NEGATIVE [facility], [address] [place] [address] 91214 Urine Protein August 09, 2020 8:06pm Negative NEGATIVE [facility], [address] [place] [address] 88304 Urine Protein August 03, 2020 2:50pm Negative NEGATIVE [facility], [address] [place] [address] 07699 Urine Protein July 01, 2020 9:30pm Trace NEGATIVE [facility], [address] [place] [address] 05238 Urine Protein May 18, 2020 12:15am Negative NEGATIVE [facility], [address] [place] [address] 61642 Urine Protein March 25, 2020 8:05am Negative NEGATIVE [facility], [address] [place] [address] 29820 Urine Protein March 11, 2020 11:00am Trace NEGATIVE [facility], [address] [place] [address] 89277 Urine Protein March 05, 2020 2:29pm Trace NEGATIVE [facility], [address] [place] [address] 87825 Urine Protein March 02, 2020 10:48am Negative NEGATIVE [facility], [address] [place] [address] 77034 Urine Protein February 20, 2020 8:40am 30 mg/dl NEGATIVE [facility], [address] [place] [address] 41506 Urine Ictotest September 09, 2020 10:50pm Negative [facility], [address] [place] [address] 07538 Urine Glucose September 09, 2020 10:50pm Negative NEGATIVE [facility], [address] [place] [address] 83819 Urine Glucose August 30, 2020 8:15pm Negative NEGATIVE [facility], [address] [place] [address] 87540 Urine Glucose August 09, 2020 8:06pm Negative NEGATIVE [facility], [address] [place] [address] 42226 Urine Glucose August 03, 2020 2:50pm Negative NEGATIVE [facility], [address] [place] [address] 41702 Urine Glucose July 01, 2020 9:30pm Negative NEGATIVE [facility], [address] [place] [address] 16917 Urine Glucose May 18, 2020 12:15am Negative NEGATIVE [facility], [address] [place] [address] 88237 Urine Glucose March 25, 2020 8:05am Negative NEGATIVE [facility], [address] [place] [address] 24410 Urine Glucose March 11, 2020 11:00am Negative NEGATIVE [facility], [address] [place] [address] 75165 Urine Glucose March 05, 2020 2:29pm Negative NEGATIVE [facility], [address] [place] [address] 46990 Urine Glucose March 02, 2020 10:48am Negative NEGATIVE [facility], [address] [place] [address] 47146 Urine Glucose February 20, 2020 8:40am Negative NEGATIVE [facility], [address] [place] [address] 05975 Urine Ketones September 09, 2020 10:50pm Trace NEGATIVE [facility], [address] [place] [address] 17218 Urine Ketones August 30, 2020 8:15pm Trace NEGATIVE [facility], [address] [place] [address] 18641 Urine Ketones August 09, 2020 8:06pm Negative NEGATIVE [facility], [address] [place] [address] 58271 Urine Ketones August 03, 2020 2:50pm Negative NEGATIVE [facility], [address] [place] [address] 23205 Urine Ketones July 01, 2020 9:30pm Trace NEGATIVE [facility], [address] [place] [address] 53459 Urine Ketones May 18, 2020 12:15am Negative NEGATIVE [facility], [address] [place] [address] 68336 Urine Ketones March 25, 2020 8:05am Trace NEGATIVE [facility], [address] [place] [address] 58050 Urine Ketones March 11, 2020 11:00am Trace NEGATIVE [facility], [address] [place] [address] 63358 Urine Ketones March 05, 2020 2:29pm Negative NEGATIVE [facility], [address] [place] [address] 27371 Urine Ketones March 02, 2020 10:48am Negative NEGATIVE [facility], [address] [place] [address] 58200 Urine Ketones February 20, 2020 8:40am Trace NEGATIVE [facility], [address] [place] [address] 05074 Urine Urobilinogen September 09 10:50pm 1 eu/dl [facility], [address] [place] [address] 16286 Urine Urobilinogen August 30, 2020 8:15p m 1 eu/dl [facility], [address] [place] [address] Urine Urobilinogen August 09 8:06pm 1 eu/dl [facility], [address] [place] [address] Urine Urobilinogen August 03 2:50pm 1 eu/dl [facility], [address] [place] [address] Urine Urobilinogen July 01 9:30pm 1 eu/dl [facility], [address] [place] [address] 05266 Urine Urobilinogen May 18 12:15am 0.2 eu/dl [facility], [address] [place] [address] Urine Urobilinogen March 25, 2020 8:05am 1 eu/dl [facility], [address] [place] [address] Urine Urobilinogen March 11, 2020 11:00am 1 eu/dl [facility], [address] [place] [address] 85950 Urine Urobilinogen March 05, 2020 2:29pm 0.2 eu/dl [facility], [address] [place] [address] Urine Urobilinogen March 02, 2020 10:48am 1 eu/dl [facility], [address] [place] [address] 87859 Urine Urobilinogen February 20, 2020 8:40am 1 eu/dl [facility], [address] [place] [address] 81456 Urine Bilirubin September 09, 2020 10:50pm Small NEGATIVE [facility], [address] [place] [address] 22327 Urine Bilirubin August 30, 2020 8:15pm Negative NEGATIVE [facility], [address] [place] [address] 23454 Urine Bilirubin August 09, 2020 8:06pm Negative NEGATIVE [facility], [address] [place] [address] 02968 Urine Bilirubin August 03, 2020 2:50pm Negative NEGATIVE [facility], [address] [place] [address] 32673 Urine Bilirubin July 01, 2020 9:30pm Negative NEGATIVE [facility], [address] [place] [address] Urine Bilirubin May 18, 2020 12:15am Negative NEGATIVE [facility], [address] [place] [address] 00338 Urine Bilirubin March 25, 2020 8:05am Negative NEGATIVE [facility], [address] [place] [address] 55999 Urine Bilirubin March 11, 2020 11:00am Negative NEGATIVE [facility], [address] [place] [address] 16951 Urine Bilirubin March 05, 2020 2:29pm Negative NEGATIVE [facility], [address] [place] [address] Urine Bilirubin March 02, 2020 10:48am Negative NEGATIVE [facility], [address] [place] [address] Urine Bilirubin February 20, 2020 8:40am Negative NEGATIVE [facility], [address] [place] [address] Urine Blood May 18, 2020 12:15am Negative NEGATIVE [facility], [address] [place] [address] Urine Blood February 20, 2020 8:40am Large NEGATIVE [facility], [address] [place] [address] Urine Blood September 09, 2020 10:50pm Large NEGATIVE A Culture has been added to this specimen per established criteria [facility], [address] [place] [address] Urine Blood August 30, 2020 8:15pm Large NEGATIVE A Culture has been added to this specimen per established criteria [facility], [address] [place] [address] Urine Blood August 09, 2020 8:06pm Moderate NEGATIVE A Culture has been added to this specimen per established criteria [facility], [address] [place] [address] Urine Blood August 03, 2020 2:50pm Small NEGATIVE [facility], [address] [place] [address] Urine Blood July 01, 2020 9:30pm Moderate NEGATIVE A Culture has been added to this specimen per established criteria [facility], [address] [place] [address] 84561 Urine Blood March 25, 2020 8:05am Negative NEGATIVE [facility], [address] [place] [address] 94959 Urine Blood March 11, 2020 11:00am Negative NEGATIVE [facility], [address] [place] [address] Urine Blood March 05, 2020 2:29pm Large NEGATIVE A Culture has been added to this specimen per established criteria [facility], [address] [place] [address] Urine Blood March 02, 2020 10:48am Trace NEGATIVE [facility], [address] [place] [address] Microscopic Urinalysis Comment Septe mber 26th, 2020 12:15am No [facility], [address] [place] [address] Microscopic Urinalysis Comment February 20, 2020 8:40am Microscopic added [facility], [address] [place] [address] Add Urine Microanalysis August 10:50pm Microscopic added [facility], [address] [place] [address] Add Urine Microanalysis August 30, 2020 8:15pm Microscopic added [facility], [address] [place] [address] Add Urine Microanalysis July 8:06pm Microscopic added [facility], [address] [place] [address] Add Urine Microanalysis July 2:50pm Microscopic added [facility], [address] [place] [address] Add Urine Microanalysis June 9:30pm Microscopic added [facility], [address] [place] [address] Add Urine Microanalysis March 25, 2020 8:05am Microscopic added [facility], [address] [place] [address] Add Urine Microanalysis March 11, 020 11:00am Microscopic added [facility], [address] [place] [address] Add Urine Microanalysis March 05, 020 2:29pm Microscopic added [facility], [address] [place] [address] Add Urine Microanalysis March 02, 020 10:48am Microscopic added [facility], [address] [place] [address] Urine RBC September 09, 2020 10:50pm 3-5 /hpf [facility], [address] [place] [address] Urine RBC August 30, 2020 8:15pm 1-2 /hpf [facility], [address] [place] [address] Urine RBC August 09, 2020 8:06pm 1-2 /hpf [facility], [address] [place] [address] Urine RBC August 03, 2020 2:50pm 6-10 /hpf [facility], [address] [place] [address] Urine RBC July 01, 2020 9:30pm Occasional /hpf [facility], [address] [place] [address] Urine RBC March 05, 2020 2:29pm 3-5 /hpf [facility], [address] [place] [address] Urine RBC March 02, 2020 10:48am Occasional /hpf [facility], [address] [place] [address] Urine WBC February 20, 2020 8:40am 20-30 /hpf [facility], [address] [place] [address] Urine WBC September 09, 2020 10:50pm 2-4 /hpf [facility], [address] [place] [address] Urine WBC August 30, 2020 8:15pm 1-2 /hpf [facility], [address] [place] [address] Urine WBC August 09, 2020 8:06pm 1-2 /hpf [facility], [address] [place] [address] Urine WBC August 03, 2020 2:50pm 20-30 /hpf [facility], [address] [place] [address] Urine WBC July 01, 2020 9:30pm Occasional /hpf [facility], [address] [place] [address] Urine WBC March 25, 2020 8:05am 3-5 /hpf [facility], [address] [place] [address] Urine WBC March 11, 2020 11:00am 3-5 /hpf [facility], [address] [place] [address] Urine WBC March 05, 2020 2:29pm Occasional /hpf [facility], [address] [place] [address] Urine WBC March 02, 2020 10:48am 3-5 /hpf [facility], [address] [place] [address] Urine Squamous Epithelial Cells Lukas krystina 2020 10:50pm Few /hpf [facility], [address] [place] [address] Urine Squamous Epithelial Cells Lukas krystina 2020 8:15pm Moderate /hpf [facility], [address] [place] [address] Urine Squamous Epithelial Cells Dece mber 2019 8:06pm Many /hpf [facility], [address] [place] [address] Urine Squamous Epithelial Cells Dece mber 2019 2:50pm Moderate /hpf [facility], [address] [place] [address] Urine Squamous Epithelial Cells Nove mber 2019 9:30pm Moderate /hpf [facility], [address] [place] [address] 31175 Urine Squamous Epithelial Cells Augu 2019 8:05am Many /hpf [facility], [address] [place] [address] Urine Squamous Epithelial Cells March 11, 2020 11:00am Many /hpf [facility], [address] [place] [address] Urine Squamous Epithelial Cells March 05, 2020 2:29pm Many /hpf [facility], [address] [place] [address] Urine Squamous Epithelial Cells March 02, 2020 10:48am Many /hpf [facility], [address] [place] [address] Urine Squamous Epithelial Cells February 20, 2020 8:40am Many /hpf [facility], [address] [place] [address] Urine Bacteria February 20, 2020 8:40am Moderate amount NEGATIVE [facility], [address] [place] [address] 23513 Urine Bacteria September 09, 2020 10:50pm Moderate amount NEGATIVE A Culture has been added to this specime n per established criteria [facility], [address] [place] [address] 44975 Urine Bacteria August 30, 2020 8:15pm Small amount NEGATIVE [facility], [address] [place] [address] 90706 Urine Bacteria August 09, 2020 8:06pm Small amount NEGATIVE [facility], [address] [place] [address] 56760 Urine Bacteria August 03, 2020 2:50pm Small amount NEGATIVE [facility], [address] [place] [address] 73484 Urine Bacteria July 01, 2020 9:30pm Moderate amount NEGATIVE A Culture has been added to this specime n per established criteria [facility], [address] [place] [address] 14666 Urine Bacteria March 25, 2020 8:05am Small amount NEGATIVE [facility], [address] [place] [address] 59291 Urine Bacteria March 11, 2020 11:00am Small amount NEGATIVE [facility], [address] [place] [address] 23273 Urine Bacteria March 05, 2020 2:29pm Small amount NEGATIVE [facility], [address] [place] [address] 86481 Urine Bacteria March 02, 2020 10:48am Small amount NEGATIVE [facility], [address] [place] [address] 23933 Urine Mucus August 30, 2020 8:15pm Small amount [facility], [address] [place] [address] 32823 Urine Mucus March 25, 2020 8:05am Small amount [facility], [address] [place] [address] 41653 Urine Sperm February 20, 2020 8:40am Few [facility], [address] [place] [address] 44592 Carboxyhemoglobin September 09, 2020 11:50pm 1.3 % 0-2.0 REFERENCE RANGE Non Smoker: LESS THAN 2.0% Smoker: LESS THAN 9.0% [facility], [address] [place] [address] 23718 Blood Urea Nitrogen September 09 11:50pm 7 mg/dL 05-15 [facility], [address] [place] [address] Blood Urea Nitrogen September 05 12:03pm 7 mg/dL 05-15 [facility], [address] [place] [address] 02098 Blood Urea Nitrogen August 30 8:15pm 16 mg/dL 05-15 [facility], [address] [place] [address] Blood Urea Nitrogen August 09, 020 7:35pm 8 mg/dL 05-15 [facility], [address] [place] [address] Blood Urea Nitrogen August 03, 020 2:35pm 5 mg/dL 05-15 [facility], [address] [place] [address] Blood Urea Nitrogen July 01 9:40pm 6 mg/dL 05-15 [facility], [address] [place] [address] Blood Urea Nitrogen May 18, 2020 6:17am 7 mg/dL 05-15 [facility], [address] [place] [address] Blood Urea Nitrogen March 25, 2020 8:11a m 7 mg/dL 05-15 [facility], [address] [place] [address] 87452 Blood Urea Nitrogen March 11, 2020 12:14p m 6 mg/dL 05-15 [facility], [address] [place] [address] 86080 Blood Urea Nitrogen March 02, 2020 11:00a m 8 mg/dL 05-15 [facility], [address] [place] [address] 63074 Blood Urea Nitrogen February 26, 2020 10:02am 7 mg/dL 05-15 [facility], [address] [place] [address] 13821 Blood Urea Nitrogen February 20, 2020 8:35am 6 mg/dL 05-15 [facility], [address] [place] [address] [id number] Sodium Level September 09, 2020 11:50pm 142 mmol/L 132-146 [facility], [address] [place] [address] [id number] Sodium Level September 05, 2020 12:03pm 140 mmol/L 132-146 [facility], [address] [place] [address] [id number] Sodium Level August 30, 2020 8:15pm 141 mmol/L 132-146 [facility], [address] [place] [address] [id number] Sodium Level August 09, 2020 7:35pm 141 mmol/L 132-146 [facility], [address] [place] [address] 16101 Sodium Level August 03, 2020 2:35pm 138 mmol/L 132-146 [facility], [address] [place] [address] 39932 Sodium Level July 01, 2020 9:40pm 141 mmol/L 132-146 [facility], [address] [place] [address] 83993 Sodium Level May 18, 2020 6:17am 143 mmol/L 132-146 [facility], [address] [place] [address] [id number] Sodium Level March 25, 2020 8:11am 137 mmol/L 132-146 [facility], [address] [place] [address] [id number] Sodium Level March 11, 2020 12:14pm 140 mmol/L 132-146 [facility], [address] [place] [address] 13218 Sodium Level March 02, 2020 11:00am 139 mmol/L 132-146 [facility] [facility], [address] [place] [address] 26806 Sodium Level February 26, 2020 10:02am 138 mmol/L 132-146 [facility], [address] [place] [address] 73560 Sodium Level February 20, 2020 8:35am 138 mmol/L 132-146 [facility], [address] [place] [address] 93818 Potassium Level September 09, 2020 11:50pm 3.7 mmol/L 3.5-5.5 [facility], [address] [place] [address] 21611 Potassium Level September 05, 2020 12:03pm 3.9 mmol/L 3.5-5.5 [facility], [address] [place] [address] 63887 Potassium Level August 30, 2020 8:15pm 3.8 mmol/L 3.5-5.5 [facility], [address] [place] [address] 29699 Potassium Level August 09, 2020 7:35pm 3.9 mmol/L 3.5-5.5 [facility], [address] [place] [address] 25203 Potassium Level August 03, 2020 2:35pm 4.6 mmol/L 3.5-5.5 [facility], [address] [place] [address] 64291 Potassium Level July 01, 2020 9:40pm 3.7 mmol/L 3.5-5.5 [facility], [address] [place] [address] 81772 Potassium Level May 18, 2020 6:17a m 3.8 mmol/L 3.5-5.5 [facility], [address] [place] [address] 69198 Potassium Level March 25, 2020 8:11am 3.7 mmol/L 3.5-5.5 [facility], [address] [place] [address] 82619 Potassium Level March 11, 2020 12:14pm 4.3 mmol/L 3.5-5.5 [facility], [address] [place] [address] 42241 Potassium Level March 02, 2020 11:00am 4.1 mmol/L 3.5-5.5 [facility], [address] [place] [address] 42394 Potassium Level February 26, 2020 10:02am 4.1 mmol/L 3.5-5.5 [facility], [address] [place] [address] 02758 Potassium Level February 20, 2020 8:35am 4.1 mmol/L 3.5-5.5 [facility], [address] [place] [address] 94826 Chloride Level September 09, 2020 11:50pm 111 mmol/l 99-109 [facility], [address] [place] [address] 15066 Chloride Level September 05, 2020 12:03pm 110 mmol/l 99-109 [facility], [address] [place] [address] 67225 Chloride Level August 30, 2020 8:15pm 109 mmol/l 99-109 [facility], [address] [place] [address] 52090 Chloride Level August 09, 2020 7:35pm 111 mmol/l 99-109 [facility], [address] [place] [address] 36994 Chloride Level August 03, 2020 2:35pm 110 mmol/l 99-109 [facility], [address] [place] [address] 92120 Chloride Level July 01, 2020 9:40pm 110 mmol/l 99-109 [facility], [address] [place] [address] 60261 Chloride Level May 18, 2020 6:17am 113 mmol/l 99-109 [facility], [address] [place] [address] 44781 Chloride Level March 25, 2020 8:11am 111 mmol/l 99-109 [facility], [address] [place] [address] 87143 Chloride Level March 11, 2020 12:14pm 111 mmol/l 99-109 [facility], [address] [place] [address] 72450 Chloride Level March 02, 2020 11:00am 111 mmol/l 99-109 [facility], [address] [place] [address] 46529 Chloride Level February 26, 2020 10:02am 107 mmol/l 99-109 [facility], [address] [place] [address] 11849 Chloride Level February 20, 2020 8:35am 108 mmol/l 99-109 [facility], [address] [place] [address] 57705 Carbon Dioxide Level September 09 021 11:50pm 23 mmol/l 20-31 [facility], [address] [place] [address] 52589 Carbon Dioxide Level September 05 021 12:03pm 20 mmol/l 20-31 [facility], [address] [place] [address] 13676 Carbon Dioxide Level August 30 8:15pm 24 mmol/l 20-31 [facility], [address] [place] [address] 32235 Carbon Dioxide Level August 09, 2020 7:35pm 24 mmol/l 20-31 [facility], [address] [place] [address] 02091 Carbon Dioxide Level August 03, 2020 2:35pm 21 mmol/l 20-31 [facility], [address] [place] [address] 43529 Carbon Dioxide Level July 01 020 9:40pm 22 mmol/l 20-31 [facility], [address] [place] [address] 18305 Carbon Dioxide Level May 18, 2020 6:17am 25 mmol/l 20-31 [facility], [address] [place] [address] 27867 Carbon Dioxide Level March 25 8:11am 21 mmol/l 20-31 [facility], [address] [place] [address] Carbon Dioxide Level March 11, 2020 12:14pm 20 mmol/l 20-31 [facility], [address] [place] [address] Carbon Dioxide Level March 02, 2020 11:00am 20 mmol/l 20-31 [facility], [address] [place] [address] Carbon Dioxide Level February 26, 2020 10:02a m 22 mmol/l 20-31 [facility], [address] [place] [address] Carbon Dioxide Level February 20, 2020 8:35a m 21 mmol/l 20-31 [facility], [address] [place] [address] 17360 Anion Gap September 09, 2020 11:50pm 12 mmol/l 8-16 [facility], [address] [place] [address] Anion Gap September 05, 2020 12:03pm 14 mmol/l 8-16 [facility], [address] [place] [address] 38743 Anion Gap August 30, 2020 8:15pm 12 mmol/l 8-16 [facility], [address] [place] [address] 24106 Anion Gap August 09, 2020 7:35pm 10 mmol/l 8-16 [facility], [address] [place] [address] 53319 Anion Gap August 03, 2020 2:35pm 12 mmol/l 8-16 [facility], [address] [place] [address] Anion Gap July 01, 2020 9:40pm 13 mmol/l 8-16 [facility], [address] [place] [address] 99217 Anion Gap May 18, 2020 6:17am 9 mmol/l 8-16 [facility], [address] [place] [address] 37436 Anion Gap March 25, 2020 8:11am 9 mmol/l 8-16 [facility], [address] [place] [address] 28056 Anion Gap March 11, 2020 12:14pm 13 mmol/l 8-16 [facility], [address] [place] [address] 15668 Anion Gap March 02, 2020 11:00am 12 mmol/l -16 [facility], [address] [place] [address] 16396 Anion Gap February 26, 2020 10:02am 13 mmol/l 8-16 [facility], [address] [place] [address] 74277 Anion Gap February 20, 2020 8:35am 13 mmol/l 16 [facility], [address] [place] [address] 46444 Glucose Level September 09, 2020 11:50pm 90 mg/dL 74-106 [facility], [address] [place] [address] 62552 Glucose Level September 05, 2020 12:03pm 106 mg/dL -[address] [place] [address] [facility]ORATORY, [address] [place] [address] 32181 Glucose Level August 30, 2020 8:15pm 90 mg/dL 74-[address] [place] [address] LABORATORY, [address] [place] [address] 07581 Glucose Level August 09, 2020 7:35pm 89 mg/dL 74-106 [facility], [address] [place] [address] 68298 Glucose Level August 03, 2020 2:35pm 87 mg/dL -[address] [place] [address] LABORATORY, [address] [place] [address] 08549 Glucose Level July 01, 2020 9:40pm 100 mg/dL 74-[address] [place] [address] LABORATORY, [address] [place] [address] 50890 Glucose Level May 18, 2020 6:17am 93 mg/dL 74-[address] [place] [address] LABORATORY, [address] [place] [address] 72078 Glucose Level March 25, 2020 8:11am 93 mg/dL 74-[address] [place] [address] LABORATORY, [address] [place] [address] 27257 Glucose Level March 11, 2020 12:14pm 88 mg/dL 74-[address] [place] [address] LABORATORY, [address] [place] [address] 67848 Glucose Level March 02, 2020 11:00am 91 mg/dL 74-106 [facility], [address] [place] [address] 24896 Glucose Level February 26, 2020 10:02am 92 mg/dL 74-[address] [place] [address] LABORATORY, [address] [place] [address] 40275 Glucose Level February 20, 2020 8:35am 98 mg/dL 74-106 [facility], [address] [place] [address] 26548 Creatinine September 09, 2020 11:50pm 0.9 mg/dL 0.5-1.1 [facility], [address] [place] [address] 12044 Creatinine September 05, 2020 12:03pm 1.0 mg/dL 0.5-1.1 [facility], [address] [place] [address] 58077 Creatinine August 30, 2020 8:15pm 1.1 mg/dL 0.5-1.1 [facility], [address] [place] [address] Creatinine August 09, 2020 7:35pm 1.3 mg/dL 0.5-1.1 [facility], [address] [place], [place] [address] Creatinine August 03, 2020 2:35pm 0.8 mg/dL 0.5-1.1 [facility], [address] [place] [address] 90495 Creatinine July 01, 2020 9:40pm 0.9 mg/dL 0.5-1.1 [facility], [address] [place] [address] 93267 Creatinine May 18, 2020 6:17am 0.7 mg/dL 0.5-1.1 [facility], [address] [place], [place] [address] Creatinine March 25, 2020 8:11am 0.9 mg/dL 0.5-1.1 [facility], [address] [place] [address] Creatinine March 11, 2020 12:14pm 1.2 mg/dL 0.5-1.1 [facility], [address] [place] [address] 04785 Creatinine March 02, 2020 11:00am 1.0 mg/dL 0.5-1.1 [facility], [address] [place] [address] Creatinine February 26, 2020 10:02am 1.0 mg/dL 0.5-1.1 [facility], [address] [place] [address] 22216 Creatinine February 20, 2020 8:35am 1.1 mg/dL 0.5-1.1 [facility], [address] [place] [address] Glomerular Filtration Rate Calc Lukas 2020 11:50pm Greater than 60 ml/min ABOVE 60 [facility], [address] [place], [place] [address] Glomerular Filtration Rate Calc Lukas [email or web address] 12:03pm Greater than 60 ml/min ABOVE 60 [facility], [address] [place] [address] 18538 Glomerular Filtration Rate Calc Lukas [email or web address] 8:15pm 60 ml/min ABOVE 60 [facility], [address] [place] [address] 83878 Glomerular Filtration Rate Calc Dece [email or web address] 7:35pm 50 ml/min ABOVE 60 [facility], [address] [place] [address] 36900 Glomerular Filtration Rate Calc Dece 2019 2:35pm Greater than 60 ml/min ABOVE 60 [facility], [address] [place] [address] 79116 Glomerular Filtration Rate Calc Nove mber 2019 9:40pm Greater than 60 ml/min ABOVE 60 [facility], [address] [place] [address] 66093 Glomerular Filtration Rate Calc Sept [email or web address] 6:17am Greater than 60 ml/min ABOVE 60 [facility], [address] [place] [address] 68473 Glomerular Filtration Rate Calc Augu 2019 8:11am Greater than 60 ml/min ABOVE 60 [facility], [address] [place] [address] 94983 Glomerular Filtration Rate Calc March 11, 2020 12:14pm 55 ml/min ABOVE 60 [facility], [address] [place] [address] 40533 Glomerular Filtration Rate Calc March 02, 2020 11:00am Greater than 60 ml/min ABOVE 60 [facility], [address] [place] [address] 87606 Glomerular Filtration Rate Calc February 26, 2020 10:02am Greater than 60 ml/min ABOVE 60 [facility], [address] [place] [address] 60724 Glomerular Filtration Rate Calc February 20, 2020 8:35am Greater than 60 ml/min ABOVE 60 [facility], [address] [place] [address] 40768 Alanine Aminotransferase (ALT/SGPT) September 09, 2020 11:50pm 31 U/L 10-49 [facility], [address] [place] [address] 51262 Alanine Aminotransferase (ALT/SGPT) September 05, 2020 12:03pm 69 U/L 10-49 [facility], [address] [place] [address] 93328 Alanine Aminotransferase (ALT/SGPT) August 09, 2020 7:35pm 30 U/L 10-49 [facility], [address] [place] [address] 10333 Alanine Aminotransferase (ALT/SGPT) August 03, 2020 2:35pm 42 U/L 10-49 [facility], [address] [place] [address] Alanine Aminotransferase (ALT/SGPT) July 01, 2020 9:40pm 43 U/L 10-49 [facility], [address] [place] [address] 26346 Alanine Aminotransferase (ALT/SGPT) May 18, 2020 6:17am 52 U/L 10-49 [facility], [address] [place] [address] 77414 Alanine Aminotransferase (ALT/SGPT) March 25, 2020 8:11am 27 U/L 10-49 [facility], [address] [place] [address] 70897 Alanine Aminotransferase (ALT/SGPT) March 11, 2020 12:14pm 29 U/L 10-49 [facility], [address] [place] [address] 52607 Alanine Aminotransferase (ALT/SGPT) March 02, 2020 11:00am 29 U/L 10-49 [facility], [address] [place] [address] 04538 Alanine Aminotransferase (ALT/SGPT) February 26, 2020 10:02am 33 U/L 10-49 [facility], [address] [place] [address] 03835 Alanine Aminotransferase (ALT/SGPT) February 20, 2020 8:35am 42 U/L 10-49 [facility], [address] [place] [address] 77569 Aspartate Amino Transf (AST/SGOT) [facility] 2020 11:50pm 12 U/L 0-33 [facility], [address] [place] [address] 99584 Aspartate Amino Transf (AST/SGOT) [facility] 2020 12:03pm 29 U/L 0-33 [facility], [address] [place] [address] 50613 Aspartate Amino Transf (AST/SGOT) De cember 2019 7:35pm 13 U/L 0-33 [facility], [address] [place] [address] 69977 Aspartate Amino Transf (AST/SGOT) De cember 2019 2:35pm 35 U/L 0-33 [facility], [address] [place] [address] 54354 Aspartate Amino Transf (AST/SGOT) No vember 2019 9:40pm 21 U/L 0-33 [facility], [address] [place] [address] 73840 Aspartate Amino Transf (AST/SGOT) Se ptember 2019 6:17am 27 U/L 0-33 [facility], [address] [place] [address] 02284 Aspartate Amino Transf (AST/SGOT) Au kem 2019 8:11am 15 U/L 0-33 [facility], [address] [place] [address] 08522 Aspartate Amino Transf (AST/SGOT) Ju ly 2019 12:14pm 17 U/L 0-33 [facility], [address] [place] [address] 87733 Aspartate Amino Transf (AST/SGOT) Ju ly 2019 11:00am 14 U/L 0-33 [facility], [address] [place] [address] 85806 Aspartate Amino Transf (AST/SGOT) Ju ly 2019 10:02am 17 U/L 0-33 [facility], [address] [place] [address] 18358 Aspartate Amino Transf (AST/SGOT) Ju ne 2019 8:35am 23 U/L 0-33 [facility], [address] [place] [address] 80298 Alkaline Phosphatase September 09 021 11:50pm 131 U/L 45-129 [facility], [address] [place] [address] 63066 Alkaline Phosphatase September 05 021 12:03pm 167 U/L 45-129 [facility], [address] [place] [address] 78419 Alkaline Phosphatase August 09, 2020 7:35pm 122 U/L 45-129 [facility], [address] [place] [address] Alkaline Phosphatase August 03, 2020 2:35pm 125 U/L 45-129 [facility], [address] [place] [address] 11494 Alkaline Phosphatase July 01 020 9:40pm 139 U/L 45-129 [facility], [address] [place] [address] 96859 Alkaline Phosphatase May 18, 2020 6:17am 110 U/L 45-129 [facility], [address] [place] [address] 39193 Alkaline Phosphatase March 25 0 8:11am 122 U/L 45-129 [facility], [address] [place] [address] 21605 Alkaline Phosphatase March 11, 2020 12:14pm 129 U/L 45-129 [facility], [address] [place] [address] Alkaline Phosphatase March 02, 2020 11:00am 136 U/L 45-129 [facility], [address] [place] [address] Alkaline Phosphatase February 26, 2020 10:02a m 147 U/L 45-129 [facility], [address] [place] [address] Alkaline Phosphatase February 20, 2020 8:35a m 149 U/L 45-129 [facility], [address] [place] [address] 19646 Amylase Level September 09, 2020 11:50pm 45 U/L 30-118 [facility], [address] [place] [address] Amylase Level August 09, 2020 7:35pm 39 U/L 30-118 [facility], [address] [place] [address] 28586 Amylase Level August 03, 2020 2:35pm 31 U/L 30-118 [facility], [address] [place] [address] 17895 Amylase Level May 17, 2020 7:20pm 39 U/L 30-118 [facility], [address] [place] [address] 72792 Amylase Level March 25, 2020 8:11am 35 U/L 30-118 [facility], [address] [place] [address] 01387 Lipase September 09, 2020 11:50pm 116 U/L 73-393 [facility], [address] [place] [address] 57416 Lipase August 09, 2020 7:35pm 90 U/L 73-393 [facility], [address] [place] [address] 57058 Lipase August 03, 2020 2:35pm 68 U/L 73-393 [facility], [address] [place] [address] 46060 Lipase May 17, 2020 7:20pm 89 U/L 73-393 [facility], [address] [place] [address] 02245 Lipase March 25, 2020 8:11am 97 U/L 73-393 [facility], [address] [place] [address] 99286 Lipase March 11, 2020 12:14pm 128 U/L 73-393 [facility], [address] [place] [address] 49705 Calcium Level September 09, 2020 11:50pm 9.6 mg/dL 8.5-10.1 [facility], [address] [place] [address] 57063 Calcium Level September 05, 2020 12:03pm 9.4 mg/dL 8.5-10.1 [facility], [address] [place] [address] 02018 Calcium Level August 30, 2020 8:15pm 9.6 mg/dL 8.5-10.1 [facility], [address] [place] [address] 22832 Calcium Level August 09, 2020 7:35pm 9.5 mg/dL 8.5-10.1 [facility], [address] [place] [address] 06692 Calcium Level August 03, 2020 2:35pm 9.1 mg/dL 8.5-10.1 [facility], [address] [place] [address] 00847 Calcium Level July 01, 2020 9:40pm 9.2 mg/dL 8.5-10.1 [facility], [address] [place], [place] [address] Calcium Level May 18, 2020 6:17am 8.5 mg/dL 8.5-10.1 Delta: 9.6 on 05/17/20-2019Repeated by: Roderick Cee 05/18/20 0824.Result Confirmation: 8.3 # mg/dL [facility], [address] [place] [address] 79845 Calcium Level March 25, 2020 8:11am 8.9 mg/dL 8.5-10.1 [facility], [address] [place] [address] 34243 Calcium Level March 11, 2020 12:14pm 8.6 mg/dL 8.5-10.1 [facility], [address] [place] [address] 32327 Calcium Level March 02, 2020 11:00am 9.0 mg/dL 8.5-10.1 [facility], [address] [place] [address] 95914 Calcium Level February 26, 2020 10:02am 9.0 mg/dL 8.5-10.1 [facility], [address] [place] [address] 94996 Calcium Level February 20, 2020 8:35am 9.4 mg/dL 8.5-10.1 [facility], [address] [place] [address] 86208 Total Bilirubin September 09, 2020 11:50pm 0.2 mg/dL 0.3-1.2 [facility], [address] [place] [address] 89258 Total Bilirubin September 05, 2020 12:03pm 0.3 mg/dL 0.3-1.2 [facility], [address] [place] [address] 57950 Total Bilirubin August 09, 2020 7:35pm 0.3 mg/dL 0.3-1.2 [facility], [address] [place] [address] 18590 Total Bilirubin August 03, 2020 2:35pm 0.4 mg/dL 0.3-1.2 [facility], [address] [place] [address] 18233 Total Bilirubin July 01, 2020 9:40pm 0.3 mg/dL 0.3-1.2 [facility], [address] [place] [address] 05346 Total Bilirubin May 18, 2020 6:17a m 0.3 mg/dL 0.3-1.2 [facility], [address] [place] [address] 74375 Total Bilirubin March 25, 2020 8:11am 0.2 mg/dL 0.3-1.2 [facility], [address] [place] [address] 56387 Total Bilirubin March 11, 2020 12:14pm 0.2 mg/dL 0.3-1.2 [facility], [address] [place] [address] 61996 Total Bilirubin March 02, 2020 11:00am 0.4 mg/dL 0.3-1.2 [facility], [address] [place] [address] 61194 Total Bilirubin February 26, 2020 10:02am 0.3 mg/dL 0.3-1.2 [facility], [address] [place] [address] 64073 Total Bilirubin February 20, 2020 8:35am 0.3 mg/dL 0.3-1.2 [facility], [address] [place] [address] 48034 Albumin September 09, 2020 11:50pm 3.5 g/dL 3.2-4.8 [facility], [address] [place] [address] 11340 Albumin September 05, 2020 12:03pm 3.4 g/dL 3.2-4.8 [facility], [address] [place] [address] 94738 Albumin August 09, 2020 7:35pm 3.6 g/dL 3.2-4.8 [facility], [address] [place] [address] Albumin August 03, 2020 2:35pm 3.5 g/dL 3.2-4.8 [facility], [address] [place] [address] Albumin July 01, 2020 9:40pm 3.5 g/dL 3.2-4.8 [facility], [address] [place] [address] Albumin May 18, 2020 6:17am 3.0 g/dL 3.2-4.8 [facility], [address] [place] [address] [id number] Albumin March 25, 2020 8:11am 3.0 g/dL 3.2-4.8 [facility], [address] [place] [address] 91348 Albumin March 11, 2020 12:14pm 3.2 g/dL 3.2-4.8 [facility], [address] [place] [address] 96618 Albumin March 02, 2020 11:00am 3.1 g/dL 3.2-4.8 [facility], [address] [place] [address] 91566 Albumin February 26, 2020 10:02am 3.4 g/dL 3.2-4.8 [facility], [address] [place] [address] 04349 Albumin February 20, 2020 8:35am 3.5 g/dL 3.2-4.8 [facility], [address] [place] [address] 11560 Serum Total Protein September 09 11:50pm 8.2 g/dL 5.7-8.2 [facility], [address] [place], [place] [id number] Serum Total Protein September 05 12:03pm 7.8 g/dL 5.7-8.2 [facility], [address] [place] [address] Serum Total Protein August 09, 020 7:35pm 8.2 g/dL 5.7-8.2 [facility], [address] [place] [address] 43982 Serum Total Protein August 03 020 2:35pm 8.1 g/dL 5.7-8.2 [facility], [address] [place], [place] [id number] Serum Total Protein July 01 9:40pm 8.0 g/dL 5.7-8.2 [facility], [address] [place] [address] 36638 Serum Total Protein May 18, 2020 6:17am 6.6 g/dL 5.7-8.2 [facility], [address] [place] [address] 81086 Serum Total Protein March 25, 2020 8:11a m 7.7 g/dL 5.7-8.2 [facility], [address] [place] [address] 95429 Serum Total Protein March 11, 2020 12:14p m 7.6 g/dL 5.7-8.2 [facility], [address] [place] [address] 89172 Serum Total Protein March 02, 2020 11:00a m 7.9 g/dL 5.7-8.2 [facility], [address] [place] [address] 36368 Serum Total Protein February 26, 2020 10:02am 7.6 g/dL 5.7-8.2 [facility], [address] [place] [address] 86118 Serum Total Protein February 20, 2020 8:35am 7.9 g/dL 5.7-8.2 [facility], [address] [place] [address] 55570 Lactic Acid Level July 01, 2020 9:40p m 1.0 mmol/L 0.5-2.2 [facility], [address] [place] [address] 34936 Human Chorionic Gonadotropin, Quant August 09, 2020 7:35pm 88144 mIU/mL 0-10 APPROXIMATE GESTATION AGE APRROX IMATE HCG RANGE 0-1 WEEK 0 - 50 1-2 WEEKS 40 - 300 2-3 WEEKS 100 - 1,000 3-4 WEEKS 500 - 6,000 1-2 MONTHS 5,000 - 200,000 2-3 MONTHS 10,000 - 100,000 2ND TRIMESTER 3,000 - 50,000 3RD TRIMESTER 1,000 - 50,000 [facility], [address] [place] [address] 82067 Human Chorionic Gonadotropin, Quant August 14, 2020 9:31am 31396 mIU/mL 0-10 APPROXIMATE GESTATION AGE APRROX IMATE HCG RANGE 0-1 WEEK 0 - 50 1-2 WEEKS 40 - 300 2-3 WEEKS 100 - 1,000 3-4 WEEKS 500 - 6,000 1-2 MONTHS 5,000 - 200,000 2-3 MONTHS 10,000 - 100,000 2ND TRIMESTER 3,000 - 50,000 3RD TRIMESTER 1,000 - 50,000 [facility], [address] [place] [address] 72603 Human Chorionic Gonadotropin, Quant August 03, 2020 2:35pm 93863 mIU/mL 0-10 APPROXIMATE GESTATION AGE APRROX IMATE HCG RANGE 0-1 WEEK 0 - 50 1-2 WEEKS 40 - 300 2-3 WEEKS 100 - 1,000 3-4 WEEKS 500 - 6,000 1-2 MONTHS 5,000 - 200,000 2-3 MONTHS 10,000 - 100,000 2ND TRIMESTER 3,000 - 50,000 3RD TRIMESTER 1,000 - 50,000 [facility], [address] [place] [address] 95586 Human Chorionic Gonadotropin, Quant July 01, 2020 10:10am Less than 1 mIU/mL 0-1 0 APPROXIMATE GESTATION AGE APRROX IMATE HCG RANGE 0-1 WEEK 0 - 50 1-2 WEEKS 40 - 300 2-3 WEEKS 100 - 1,000 3-4 WEEKS 500 - 6,000 1-2 MONTHS 5,000 - 200,000 2-3 MONTHS 10,000 - 100,000 2ND TRIMESTER 3,000 - 50,000 3RD TRIMESTER 1,000 - 50,000 [facility], [address] [place] [address] 05869 Thyroid Stimulating Hormone (TSH) Ju zahida 2019 10:02am 1.84 uIU/mL 0.35-5.50 [facility], [address] [place] [address] 84089 Serum Test, Qualitative Tee nuary 2020 11:50pm Negative NEGATIVE [facility], [address] [place] [address] 80938 Serum Test, Qualitative De cember 2019 2:35pm Positive NEGATIVE [facility], [address] [place] [address] 47354 Serum Test, Qualitative No vember 2019 9:40pm Negative NEGATIVE [facility], [address] [place] [address] 58812 Serum Test, Qualitative Se ptember 2019 7:20pm Negative NEGATIVE [facility], [address] [place] [address] 25218 Serum Test, Qualitative Au kem 2019 8:11am Negative NEGATIVE [facility], [address] [place] [address] 45196 Urine HCG, Qualitative March 11 11:00am Negative NEGATIVE [facility], [address] [place] [address] 12578 Urine HCG, Qualitative March 02 11:00am Negative NEGATIVE [facility], [address] [place] [address] 65828 Urine HCG, Qualitative February 19 8:32am Negative NEGATIVE [facility], [address] [place] [address] Coronavirus (COVID-19)(PCR) March 252019 2:30pm Not detected Not Detec dee This test was developed and its performa nce characteristicsdetermined by [facility]. This test has not beenFDA cleared or approved. This test [facility] been [facility] under an Emergency Use Authorization (EUA). This [...] (not detected) result in this assay.Performed at: [facility] [address] [id number] Director: Deisy Hdez MD, Phone: [phone] [facility] , [address] [facility] [address] Urine Random Creatinine February 27 7:19am 234.0 mg/dL THERE IS NO ESTABLISHED RANGE FOR RANDOM URINE CREATININE [facility], [address] [place] [address] Urine Microalbumin February 28, 2020 7:19am 13.7 mg/L 0.0-29.9 [facility], [address] [place] [address] Urine Microalbumin/Creatinine Ratio February 28, 2020 7:19am 5.8 ug/mg 0.0-30.0 [facility], [address] [place] [address] 06466 Hemoglobin A1c February 26, 2020 10:02am 5.3 [...] glucose control. * High risk of developing correction complications such asretinopathy, nephropathy, neuropathy, cardiopathy, etc. Some danger of hypoglycemic reaction in Type I diabetics.Some glucose intolerant individuals and "Sub Clinical"diabetics may demonstrate HGBA1C levels in this area. [facility], [address] [place] [address] Estimated Average Glucose (eAG) February 26, 2020 10:02am 105 mg/dl An A1C of 7% - the goal of diabetic therapy - is equivalentto an EAG of 154 mg/dl. [facility], [address] [place] [address] 98062 Microbiology Results Procedure Source Result Collection Date/Time Result Date/Time Result Comment Performing Site Urine Culture Urine,voided August 30, 2020 8:15pm August 2:09pm [facility], [address] [place] [address] 21486 Urine Culture Urine,voided August 09, 2020 8:06pm August 11, 2020 7:16am [facility], [address] [place] [address] 31578 Urine Culture Urine,clean catch August 03, 2020 2:50pm August 04, 2020 11:45am [facility], [address] [place] [address] 05928 Urine Culture Urine,voided July 01, 2020 9:30pm June 232019 7:24am [facility], [address] [place] [address] 11105 Urine Culture Urine,voided May 18, 2020 1:15am Septembe r 2019 11:25am [facility], [address] [place] [address] 97515 Urine Culture Urine,clean catch March 25, 2020 9:05am March 26, 2020 1:36pm [facility], [address] [place] [address] 84244 Urine Culture Urine,clean catch March 11, 2020 12:00pm March 12, 2 020 1:24pm [facility], [address] [place] [address] 30970 Urine Culture Urine,voided March 05, 2020 3:29pm March 06, 9:18am [facility], [address] [place] [address] 86547 Urine Culture Urine,voided March 02, 2020 11:48am March 03, 2 020 8:26am [facility], [address] [place] [address] 01706 Streptococcus Rapid Screen Throat March 13, 2020 10:34am March 14, 2 020 8:58am [facility], [address] [place], [place] [id number] Streptococcus Rapid Screen Throat March 13, 2020 10:34am March 13, 2 020 11:04am [facility], [address] [place] [address] 09856 Blood Culture Venous blood No growth. July 01, 2020 9:40pm June 232019 9:46pm [facility], [address] [place] [address] 67412 SARS-CoV-2 (PCR) Interpretation Naso pharyngeal No Organisms Detected July 01, 2020 9:45pm July 01, 2020 10:29pm [facility], [address] [place] [address] 66323 Nasal BinaxNow Covid - 19 Ag Negative July 30, 2020 9:45am July 302019 11:56am [facility], [address] [place] [address] 83302 Influenza-Like Illness (PCR) Nasopharyngea l No Organisms Detected August 22, 2020 6:22am August 22, 2020 7:41am [facility], [address] [place] [address] 21653 Nasopharyngeal August 22, 2020 6:22am August 22, 2020 7:41am [facility], [address] [place] [address] 14053 Gastrointestinal Tract Panel (PCR) Stool C. difficile toxin detected May 17, 2020 3:03pm May 17, 2020 5:25pm [facility], [address] [place] [address] 78183 Respiratory Panel (PCR) Nasopharyngeal No Organisms Detected May 18, 2020 1:40am May 18, 2020 2:49am [facility], [address] [place] [address] 95155 Diagnostic Imaging Reports Report Dictated Date/Time Dictated By Status Radiology Report February 28, 2020 9:48am Oliverio Chen MD completed [facility] [address] [place] [address] [phone] NAME SEX PT STATUS ACCOUNT NUMBER ANNA MARIE BELTRAN REG REF [id number] ORDERING PHYSICIAN LOCATION MEDICAL RECORD NO. Jose Kramer DO [id number] ATTENDING PHYSICIAN DATE OF DATE OF EXAM/TIME [...] 0948 Signed By Oliverio Chen MD on 02/28/2052 Date Time CC: Jose Kramer DO; Oliverio Chen MD Techn: BUSMI Trans Dt/Tm: Trans by: DT Prt Dt/Tm: : Total DLP = 0.00 mGy-cm : Total Radiation Dose = 0.0000 mSv Lifetime Dose: 0 mSv Radiology Report March 02, 2020 1:53pm Warren Bourne MD completed [place] [address] [place] [address] [phone] NAME SEX PT STATUS ACCOUNT NUMBER ANNA MARIE BELTRAN [facility] [id number] ORDERING PHYSICIAN LOCATION MEDICAL RECORD NO. Sameer Islas MD ER [id number] ATTENDING PHYSICIAN DATE OF DATE OF EXAM/TIME [...] 12, 2020 2:59pm Oliverio [place] [address] [phone] NAME SEX PT STATUS ACCOUNT NUMBER ANNA MARIE BELTRAN REG REF [id number] ORDERING PHYSICIAN LOCATION MEDICAL RECORD NO. Pola Meadows MD [id number] ATTENDING PHYSICIAN DATE OF DATE OF EXAM/TIME Jose Kramer DO 1995 03/12/20 / 1 TYPE / EXAM US Pelvic complete REASON [...] 25, 2020 10:18am Oliverio Chen MD completed [facility] [address] [place] [address] [phone] NAME SEX PT STATUS ACCOUNT NUMBER ANNA MARIE BELTRAN [facility] [id number] ORDERING PHYSICIAN LOCATION MEDICAL RECORD NO. Hiren Perez MD ER [id number] ATTENDING PHYSICIAN DATE OF DATE OF EXAM/TIME [...] May 17 9:41pm Ulisses Sethi MD completed [facility] [address] [facility] [address] [place] [id number] [phone] NAME SEX PT STATUS ACCOUNT NUMBER ANNA MARIE BELTRAN [facility] [id number] ORDERING PHYSICIAN LOCATION MEDICAL RECORD NO. Mikhail Sheriff MD ER [id number] ATTENDING PHYSICIAN DATE OF DATE OF EXAM/TIME [...] 2020 10:55p m Telly Robledo MD completed [place] [address] [place] [address] [phone] NAME SEX PT STATUS ACCOUNT NUMBER ANNA MARIE BELTRAN [facility] [id number] ORDERING PHYSICIAN LOCATION MEDICAL RECORD NO. Mikhail Sheriff MD ER [id number] ATTENDING PHYSICIAN DATE OF DATE OF EXAM/TIME [...] Trans Dt/Tm: Trans by: DT Prt Dt/Tm: 9102-4924: Total DLP = 0.00 mGy-cm Fluoroscopy Time (in secs): Radiology Report July 01, 2020 11:07p m Niels [place] [address] [phone] NAME SEX PT STATUS ACCOUNT NUMBER ANNA MARIE BELTRAN [facility] ER [id number] ORDERING PHYSICIAN LOCATION MEDICAL RECORD NO. Mikhail Sheriff MD ER [id number] ATTENDING PHYSICIAN DATE OF DATE OF EXAM/TIME [...] Trans Dt/Tm: Trans by: DT Prt Dt/Tm: 6967-8765: Total DLP = 1469.00 mGy-cm 1272-8176: Total Radiation Dose = 22.0350 mSv Lifetime Dose: 56.7900 mS v Radiology Report August 03, 2020 7:33p m Gibran Villa MD completed [facility] [address] [facility] [address] [place] [address] [phone] NAME SEX PT STATUS ACCOUNT NUMBER ANNA MARIE BELTRAN [facility] ER [id number] ORDERING PHYSICIAN LOCATION MEDICAL RECORD NO. Daljit Alex MD ER [id number] ATTENDING PHYSICIAN DATE OF DATE OF EXAM/TIME [...] CC: Nicol Sebastian; Gibran Villa MD Techn: FRE Trans Dt/Tm: Trans by: LUPIS Prt Dt/Tm: 1030-5706: Total DLP = 0.00 mGy-cm : Total Radiation Dose = 0.0000 mSv Lifetime Dose: 56.7900 mSv Radiology Report August 03, 2020 7:59p m Telly Robledo MD completed [place] [address] [place] [address] [phone] NAME SEX PT STATUS ACCOUNT NUMBER ANNA MARIE BELTRAN [facility] ER [id number] ORDERING PHYSICIAN LOCATION MEDICAL RECORD NO. Daljit Alex MD ER [id number] ATTENDING PHYSICIAN DATE OF DATE OF EXAM/TIME [...] 2020 7:34p m Gibran Villa MD completed [place] [address] [place] [address] [phone] NAME SEX PT STATUS ACCOUNT NUMBER ANNA MARIE BELTRAN [facility] ER [id number] ORDERING PHYSICIAN LOCATION MEDICAL RECORD NO. Daljit Alex MD ER [id number] ATTENDING PHYSICIAN DATE OF DATE OF EXAM/TIME Nicol Sebastian INDIRECT SALES REPRESENTATIVE 1995 08/03/201858 TYPE / EXAM US OB Ultrasound <14 weeks REASON FOR EXAM RLQ PAIN; R/O ECTOPIC [place] [address] [place] [address]67 [phone] NAME SEX PT STATUS ACCOUNT NUMBER ANNA MARIE BELTRAN [facility] ER [id number] ORDERING PHYSICIAN LOCATION MEDICAL RECORD NO. Daljit Alex MD ER [id number] ATTENDING PHYSICIAN DATE OF DATE OF EXAM/TIME [...] on 08/03/201932 Date Time CC: Nicol Sebastian; Girban Villa MD Techn: FREST Trans Dt/Tm: Trans [...] 2020 9:02p m Telly Robledo MD completed [facility] [address] [place] 8497160 [phone] NAME SEX PT STATUS ACCOUNT NUMBER ANNA MARIE BELTRAN [facility] ER [id number] ORDERING PHYSICIAN LOCATION MEDICAL RECORD NO. Mikhail Sheriff MD ER [id number] ATTENDING PHYSICIAN DATE OF DATE OF EXAM/TIME Nicol Sebastian NP 1995 08/09/202038 TYPE / EXAM US OB Ultrasound <14 weeks REASON FOR EXAM Gen abd pain. +HCG ANNA MARIE BELTRAN [id number] 1995 ADDENDUM Clinical History/Indication for Exam: Gen [...] Trans Dt/Tm: Trans by: DT Prt Dt/Tm: 4343-0574: Total DLP = 0.00 mGy-cm 4211-2854: Total Radiation Dose = 0.0000 mSv Lifetime Dose: 56.7900 mSv Radiology Report August 14, 2020 11:09am Oliverio Chen MD completed [facility] [address] [place] [address] [phone] NAME SEX PT STATUS ACCOUNT NUMBER ANNA MARIE BELTRAN REG REF [id number] ORDERING PHYSICIAN LOCATION MEDICAL RECORD NO. Jarret Herbert MD [id number] ATTENDING PHYSICIAN DATE OF DATE OF EXAM/TIME Nicol Sebastian NP 1995 08/14/20915 TYPE / EXAM US OB Ultrasound <14 weeks REASON FOR EXAM FOLLOW UP SUBCHOR/ EARLY COMPARISON: August 19, 2020 and 2019 FINDINGS: Gestation: Single Roann-rump length: Singlemm compatible with a Single week Single day gestational age. Yolk sac: Not seen No heart rate detected. Uterus: 8.5 x 4.6 x 7.0cm. A subchorionic hemorrhage is still seen. Average ultrasound age of 5 weeks 6 days. EDC: April 10, 2021. Roann-rump length: 3.4mm IMPRESSION: 1. Gestational sac measurements, unchanged. 2. Subarachnoid hemorrhage is still seen. 3. Linear intraamniotic echogenicity, possibly the pole. No heart rate detected. Reported By Oliverio Chen MD on 08/14/20 1109 Signed By Oliverio Chen MD on 08/14/20 1114 Date Time CC: Nicol Sebastian; Oliverio Chen MD Techn: FREST Trans Dt/Tm: Trans by: DT Prt Dt/Tm: 6704-7249: Total DLP = 0.00 mGy-cm 8124-1792: Total Radiation Dose = 0.0000 mSv Lifetime Dose: 56.7900 mSv Radiology Report August 09, 2020 9:05p vivian Robledo MD completed [address] [id number] [phone] NAME SEX PT STATUS ACCOUNT NUMBER ANNA MARIE BELTRAN [facility] ER [id number] ORDERING PHYSICIAN LOCATION MEDICAL RECORD NO. Mikhail Sheriff MD ER [id number] ATTENDING PHYSICIAN DATE OF DATE OF EXAM/TIME Nicol Sebastian NP 1994 08/09/202039 TYPE / EXAM US OB Transvaginal REASON FOR EXAM PAIN [address] [address] [phone] NAME SEX PT STATUS ACCOUNT NUMBER ANNA MARIE BELTRAN [facility] ER [id number] ORDERING PHYSICIAN LOCATION MEDICAL RECORD NO. Mikhail Sheriff MD ER [id number] ATTENDING PHYSICIAN DATE OF DATE OF EXAM/TIME Nicol Sebastian NP 1994 08/09/202038 TYPE / EXAM US OB Ultrasound <14 weeks REASON FOR EXAM Gen abd pain. +HCG ANNA MARIE BELTRAN [id number] 1995 ADDENDUM Clinical History/Indication for Exam: Gen [...] Trans Dt/Tm: Trans by: DT Prt Dt/Tm: 5440-6193: Total DLP = 0.00 mGy-cm 2507-1087: Total Radiation Dose = 0.0000 mSv Lifetime Dose: 56.7900 mSv Reported By Telly Robledo MD on 08/09/20 2105 Signed By Telly Robledo MD on 08/14/20 1245 Date Time CC: Nicol Sebastian; Telly Robledo MD Techn: CARAI Trans Dt/Tm: Trans by: DT Prt Dt/Tm: 5434-4889: Total DLP = 0.00 mGy-cm 5781-3126: Total Radiation Dose = 0.0000 mSv Lifetime Dose: 56.7900 mSv Radiology Report August 21, 2020 10:47am Oliverio Chen [place] [address] [phone] NAME SEX PT STATUS ACCOUNT NUMBER ANNA MARIE BELTRAN [facility] REF [id number] ORDERING PHYSICIAN LOCATION MEDICAL RECORD NO. Jarret Herbert MD [id number] ATTENDING PHYSICIAN DATE OF DATE OF EXAM/TIME Nicol Sebastian NP 1995 08/21/20 / 7 TYPE / EXAM US OB Transvaginal REASON FOR EXAM EVAL FOR IUP COMPARISON: August 14, 2020. FINDINGS: Gestation: Single Roann-rump length: No pole seen. Gestational sac: 13.4 [...] Trans Dt/Tm: Trans by: DT Prt Dt/Tm: 8896-5673: Total DLP = 0.00 mGy-cm 2468-7421: Total Radiation Dose = 0.0000 mSv Lifetime Dose: 56.7900 mSv Radiology Report August 21, 2020 10:47am Oliverio Chen MD completed [place] [address] [place] [address] [phone] NAME SEX PT STATUS ACCOUNT NUMBER ANNA MARIE BELTRAN [facility] REF [id number] ORDERING PHYSICIAN LOCATION MEDICAL RECORD NO. Jarret Herbert MD [id number] ATTENDING PHYSICIAN DATE OF DATE OF EXAM/TIME Nicol Sebastian NP 1994 08/21/20 / 1017 TYPE / EXAM US OB Ultrasound <14 weeks REASON FOR EXAM Re-evaluation for subchor. COMPARISON: August 14, 2020. FINDINGS: Gestation: Single Roann-rump length: No pole seen. Gestational sac: 13.4 [...] Ocampo Dt/Tm: Trans by: DT Prt Dt/Tm: 1730-2155: Total DLP = 0.00 mGy-cm 7910-6226: Total Radiation Dose = 0.0000 mSv Lifetime [...] PAIN ABDOMINAL PAIN, BLOOD IN URINE/STOOL PAIN [facility] Initial Visit Hernia [facility] SUBCHORIONIC BLEED O02.1/SUCTION D+C 91021 [facility] Post op care ABDOMINAL PAIN Telemed Visit [facility] Office Visit [facility] Post op care R19.7 HEADACHE, NAUSEA, DIZZY Reason for Visit Anxiety Depression GERD (gastroesophageal reflux disease) Hepatomegaly HTN (hypertension) Morbid obesity PTSD (post-traumatic stress disorder) Metrorrhagia Anxiety Depression HTN (hypertension) Morbid obesity PTSD (post-traumatic stress disorder) Anxiety Nausea Abdominal pain Abdominal pain Abdominal pain Insomnia Anxiety Depression Morbid obesity Numbness and tingling of both legs Morbid obesity Elevated serum creatinine GERD (gastroesophageal reflux disease) PTSD (post-traumatic stress disorder) Encounters Encounter Location(s) Ar rival/Admit Date Discharge/Depart Date Provider(s) Registered Referred [facility] February 20, 2020 8:12am Bianka Sen MD Departed Physician/Provider Office Visit [facility] February 20, 2020 10:22am February 20, 2020 11:42am [facility], 2020 9:54am Jose Kramer DO Registered Referred [facility] February 28, 2020 6:57am Jose Kramer DO Departed Emergency [facility] March 02, 2020 10:34am March 02, 2020 1:45pm null Departed Emergency [facility] March 05, 2020 2:01pm March 05, 2020 4:29pm null Departed Physician/Provider Office Visit [facility] March 11, 2020 9:28am March 11, 2020 10:13am Trice dimas NP Departed Physician/Provider Office Visit [facility] March 11, 2020 10:17am March 11, 2020 11:49am Pola Meadows MD Registered Referred [facility] March 11, 2020 11:56am Trice Aj NP Registered Referred [facility] March 12, 2020 11:38am Pola Meadows MD Departed Physician/Provider Office Visit [facility] March 12, 2020 12:22pm March 12, 2020 2:13pm Trice holbrook NP Departed Emergency [facility] March 13, 2020 9:18am March 13, 2020 10:18am null Departed Emergency [facility] March 25, 2020 7:55am March 25, 2020 9:27am null Departed Physician/Provider Office Visit [facility] March 25, 2020 2:51pm March 25, 2020 2:52pm Nathalie valerio Registered Referred [facility] Drop Off March 25, 2020 3:08pm Nathalie Pace Departed Physician/Provider Office Visit [facility] March 28, 2020 7:01am March 28, 2020 7:47am Trice dimas NP Registered Outpatient [facility] Internal Medicine April 05, 2020 8:29am Trice Aj NP Registered Referred [facility] May 17, 2020 1:48pm Trice Aj NP Discharged Inpatient [facility] May 18, 2020 12:18am Septemb 2019 2:40pm Tad Menendez MD Registered Outpatient [facility] May 20, 2020 2:25pm Amara Garcia RN Departed Physician/Provider Office Visit [facility] May 23, 2020 7:51am May 23, 2020 8:35am Trice Aj NP Departed Physician/Provider Office Visit [facility] May 30, 2020 9:25am May 30, 2020 11:56am Nicol rincon NP Departed Physician/Provider Office Visit [facility] June 10, 2020 8:26am June 10, 2020 8:58am Jarret Herbert MD Departed Physician/Provider Office Visit [facility] June 28, 2020 3:47pm June 28, 2020 4:33pm Nicol Sebastian NP Departed Physician/Provider Office Visit [facility] July 01, 2020 9:04am July 01, 2020 11:04am Nicol Sebastian NP Registered Referred [facility] July 01, 2020 9:47am Kiersten Schulz DO Departed Emergency [facility] July 01, 2020 8:40pm July 02, 2020 12:20am null Departed Physician/Provider Office Visit [facility] July 04, 2020 11:14am July 04, 2020 12:47pm Nicol Sebastian NP Departed Physician/Provider Office Visit [facility] July 25, 2020 9:54am July 25, 2020 10:57am Nicol Sebastian NP Registered Referred [facility] July 30, 2020 9:45am Jaki Elias MD Departed Emergency [facility] August 03, 2020 1:29pm August 03, 2020 8:21pm null Departed Emergency [facility] August 09, 2020 6:19pm August 10, 2020 5:45am null Registered Referred [facility] August 14, 2020 9:29am Jarret Herbert MD Departed Physician/Provider Office Visit [facility] August 14, 2020 9:41am August 14, 2020 11:45am Patrick Herbert MD Departed Physician/Provider Office Visit [facility] August 20, 2020 9:00am August 20, 2020 9:20am Barrett Sparks MD Departed Physician/Provider Office Visit [facility] August 21, 2020 10:25am August 21, 2020 11:32am Jarret Herbert MD Registered Referred [facility] August 21, 2020 11:17am Jarret Herbert MD Departed Surgical Day Care [facility] August 22, 2020 6:20am August 22, 2020 10:05am Patrick Herbert MD Departed Physician/Provider Office Visit [facility] August 27, 2020 10:07am August 27, 2020 10:41am Jarret Herbert MD Departed Emergency [facility] August 30, 2020 6:50pm August 30, 2020 9:08pm null Departed Physician/Provider Office Visit [facility] September 02, 2020 10:06am September 02, 2020 4:34pm Jose Kramer DO Departed Physician/Provider Office Visit [facility] September 03, 2020 9:28am September 03, 2020 11:05am Jarret Herbert MD Departed Physician/Provider Office Visit [facility] September 05, 2020 11:10am September 05, 2020 11:48am Jarret Herbert MD Registered Referred [facility] September 05, 2020 11:47am Jarret Herbert MD Departed Emergency [facility] September 09, 2020 10:24pm September 10, 2020 1:21am null Recent Diagnosis Onset Date Anxiety Depression GERD (gastroesophageal reflux disease) Hepatomegaly HTN (hypertension) Morbid obesity PTSD (post-traumatic stress disorder) Metrorrhagia Anxiety Depression HTN (hypertension) Morbid obesity PTSD (post-traumatic stress disorder) Anxiety Nausea Abdominal pain Abdominal pain Abdominal pain Insomnia Anxiety Depression Morbid obesity Numbness and tingling of both legs Morbid obesity Elevated serum creatinine GERD (gastroesophageal reflux disease) PTSD (post-traumatic stress disorder) Assessments Diagnosis Onset Date Res olution Status [...] disease) chronic PTSD (post-traumatic stress disorder) chronic Family History Relationship Condition A ge at Onset Recorded Date/Time Not Specified Cerebrovascular accide nt (CVA) Unknown Not Specified Hernia Unk nown Functional Status Observation Response Neil e Recorded Functional Status Complete [place] May 18, 2020 1:30am Goals Goals may be documented in an alternate section. Immunizations No Immunization Information Available Mental Status Observation Response Neil e Recorded Impairments No impairments or barriers September 09, 2020 10:25pm Cognitive Status Normal Cognition May 18, 2020 1:30am Medical Equipment No Medical Equipment Information available Insurance Providers Guarantor ANNA MARIE M DEVIN Address [address] [place] [address] Contact Info. Home Phone: Payer Policy Id Coverage Id Subscriber's Name Subscriber Id Effective Date Expiration Date [facility] [id number] ANNA MARIEYOLANDA BELTRAN [id number] [facility] [id number] ANNA MARIE M DEVIN [id number] MEDICAID [facility] [id number] ANNA MARIE BELTRAN [id number] MEDICAID [id number] ANNA MARIE BELTRAN [id number] Self Pay Self N/A Plan of Treatment f/u respiratory care technician if condition worsens, then go to ER [...] aware of the patient as well. Awaiting pipeline technician referral. Increase diet and exercise. Referral to [facility] for chronic inflammation. Elevate legs. 26 [...] . July 26, 2020 for upper GI. [facility] [place] foods rice, applesauce, bananas, and toast. Resolved. [...] that she has had counseling in the [facility], but symptoms are worse at this time, d/t recent move to [place]. Will continue current meds and will refer to psych. [facility] appt with behavioral health this week. Taking [...] palpation without abnormal physical find ings. Doubt [employer] cause but send urine culture in case. [...] Information Provider Address Jarret Herbert MD Email: [email or web address] Phone: [phone] [facility] [id number] c diff - treated with PO vancomycin Trice dimas NP Email: [email or web address] Work Phone: [facility] [address] [facility] [address] Call for an appointment to be seen in the next 48 hours Jose Kramer DO Email: [email or web address] Phone: [phone] [facility] [address] Call for an appointment for follow-up for Wednesday or Wednesday Jose Kramer DO Email: [email or web address] Phone: [phone] [facility] [address] R79.89 - Other specified abnormal findin gs of blood chemistry,N17.9 - Acute kidney failure, unspecified September 02, 2020 respiratory care technician Future Procedures Future procedure information is unavailable [...] 11, 2020 12:10pm Respiratory rate 18 /min 12-March 11, 2020 12:10pm Oxygen saturation by Pulse [...] 30, 2020 10:36am Respiratory rate 18 /min 12-May 30, 2020 10:36am Oxygen saturation by Pulse [...] 09, 2020 10:28pm Respiratory rate 18 /min 12-24 September 09, 2020 10:28pm Oxygen saturation by Pulse oximetry 98 % 95- 100 September 09, 2020 10:28pm BP Systolic 145 mm[Hg] September 09, 2020 10:28pm BP Diastolic 80 mm[Hg] September 09, 2020 10:28pm
--- OUTSIDE RECORDS SUMMARY | 2020-10-18 09:45 | CCD | Continuity of Care Document ---
Author Author [facility] Address [address] [place] [address] Phone Support Name Relationship Address Phone Jose Kramer PRS [address] [place] [address] Polly Sen PRS [address] [place] [address] John Islas PRS [address] [place] [address] [place] [address] Pola Mead[place] [address] Pola Meadows PRS [address] [place] [address] Hiren Perez PRS [address] [place] [address] Nathalie Pace PRS [address] [place] [address] Verónica Sheriff PRS [address] [place] [address] Tad Menendez PRS [address] [place] [address] Amara Garcia PRS Unknown Unavailable Nicol Sebastian PRS [address] [place] [address] Darnell Herbert PRS [address] [place] [address] Kiersten Schulz PRS [address] [place] [address] [place] [address] Daljit Alex PRS [address] [place] [address] Niels Valdez PRS [address] [place] [address] Barrett Sparks PRS [address] [place] [address] Dmitriy Peraza PRS [address] [place] [address] Allergies, Adverse Reactions, Alerts Allergen Type Severity Reaction Last Updated Verified Status cephalexin Allergy Moder ate Hives September 02, 2020 4:17pm Yes Active latex Allergy Moderate Rash September 02, 2020 4:17pm Yes Active ondansetron Allergy Mode rate Hives September 02, 2020 4:17pm Yes Active sulfamethoxazole Allergy Moderate Hives September 02, 2020 4:17pm Yes Active trimethoprim Allergy Mod erate Hives September 02, 2020 4:17pm Yes Active Medications Medication Status Dose Units [...] TAB PO daily August 27, 2020 10:45am Meclizine Active 25 MG PO daily September [...] 125 MG PO Every 6 hours 40 May 18, 2020 11:46am June 10, 2020 8:37am Lactobacillus Combination No.8 (Adult Pr obiotic) 3 billion cell capsule Discontinued 3000 MMU CE LLS PO Once Per Day May 18, 2020 11:54am July 01, 2020 [...] Day August 22, 2020 6:55am Metoprolol Succinate Active 50 MG PO daily August 22, 2020 6:55am Ciprofloxacin Hcl Discontinued 250 MG PO 2 Times Per Day August 30, 2020 8: 57pm September 02, 2020 4:11pm Ferrous Sulfate (Feosol) 325 mg (65 mg iron) tablet Active 325 MG PO 2 Times Per Day August 30, 2020 8:57pm Ascorbic Acid (Vitamin C) Active 500 MG PO 2 Times Per Day August 30, 2020 8 :57pm with iron Buspirone Discontinued 7 .5 MG PO 2 [...] 19, 2020 8:31am August 22, 2020 6:55am Problems Active Problems Medical Problem Onset Date Status Daytime sleepiness Act krzysztof Insomnia Active PTSD (post-traumatic stress disorder) Active Metrorrhagia Active Morbid obesity Active Acute renal failure Ac tive Anxiety Active Depression Active Diarrhea Active Snoring Active Elevated serum [...] Procedures Procedure Date Performed Status Urine Culture August 30, 2020 completed Influenza-Like [...] 01, 2020 completed SARS-CoV-2 (PCR) Interpretation Prasanth montoyaer [address] Abd/pel w/ contrast April [...] Result Comment Performing Site White Blood Count August 30, 2020 8:15pm 11.3 10e3/uL 4.45-10.71 [facility], [address] [place] [address] White Blood Count August 09 0 7:35pm 9.9 10e3/uL 4.45-10.71 [facility], [address] [place] [address] White Blood Count August 14 0 9:31am 9.8 10e3/uL 4.45-10.71 [facility], [address] [place] [address] White Blood Count August 03 0 2:35pm 8.6 10e3/uL 4.45-10.71 [facility], [address] [place] [address] 43475 White Blood Count July 01, 2020 9:40p m 11.2 10e3/uL 4.45-10.71 [facility], [address] [place] [address] White Blood Count May 18 6:17am 9.3 10e3/uL 4.45-10.71 [facility], [address] [place] [address] 79238 White Blood Count March 25, 2020 8:11am 10.8 10e3/uL 4.45-10.71 [facility], [address] [place] [address] 15872 White Blood Count March 11, 2020 12:14pm 11.3 10e3/uL 4.45-10.71 [facility], [address] [place] [address] White Blood Count March 02, 2020 11:00am 10.3 10e3/uL 4.45-10.71 [facility], [address] [place] [address] 84143 White Blood Count February 26, 2020 10:02am 9.8 10e3/uL 4.45-10.71 [facility], [address] [place] [address] 54875 White Blood Count February 20, 2020 8:35am 8.8 10e3/uL 4.45-10.71 [facility], [address] [place] [address] 60304 Red Blood Count August 30, 2020 8:15pm 4.26 10e6/uL 4.20-5.40 [facility], [address] [place] [address] Red Blood Count August 09, 2020 7:35pm 4.49 10e6/uL 4.20-5.40 [facility], [address] [place] [address] 31975 Red Blood Count August 14, 2020 9:31am 4.57 10e6/uL 4.20-5.40 [facility], [address] [place] [address] 77769 Red Blood Count August 03, 2020 2:35pm 4.47 10e6/uL 4.20-5.40 [facility], [address] [place] [address] 43774 Red Blood Count July 01, 2020 9:40pm 4.51 10e6/uL 4.20-5.40 [facility], [address] [place] [address] 31202 Red Blood Count May 18, 2020 6:17a m 4.10 10e6/uL 4.20-5.40 [facility], [address] [place] [address] 81379 Red Blood Count March 25, 2020 8:11am 4.25 10e6/uL 4.20-5.40 [facility], [address] [place] [address] 89440 Red Blood Count March 11, 2020 12:14pm 4.58 10e6/uL 4.20-5.40 [facility], [address] [place] [address] 20736 Red Blood Count March 02, 2020 11:00am 4.52 10e6/uL 4.20-5.40 [facility], [address] [place] [address] Red Blood Count February 26, 2020 10:02am 4.84 10e6/uL 4.20-5.40 [facility], [address] [place] [address] Red Blood Count February 20, 2020 8:35am 5.02 10e6/uL 4.20-5.40 [facility], [address] [place] [address] Hemoglobin August 30, 2020 8:15pm 10.5 g/dL 10.7-15.4 [facility], [address] [place] [address] 06926 Hemoglobin August 09, 2020 7:35pm 11.4 g/dL 10.7-15.4 [facility], [address] [place] [address] Hemoglobin August 14, 2020 9:31am 11.4 g/dL 10.7-15.4 [facility], [address] [place] [address] Hemoglobin August 03, 2020 2:35pm 11.5 g/dL 10.7-15.4 [facility], [address] [place] [address] Hemoglobin July 01, 2020 9:40pm 11.8 g/dL 10.7-15.4 [facility], [address] [place] [address] 19921 Hemoglobin May 18, 2020 6:17am 10.9 g/dL 10.7-15.4 [facility], [address] [place] [address] 65813 Hemoglobin March 25, 2020 8:11am 11.5 g/dL 10.7-15.4 [facility], [address] [place] [address] 52500 Hemoglobin March 11, 2020 12:14pm 12.4 g/dL 10.7-15.4 [facility], [address] [place] [address] Hemoglobin March 02, 2020 11:00am 12.1 g/dL 10.7-15.4 [facility], [address] [place] [address] 30643 Hemoglobin February 26, 2020 10:02am 13.0 g/dL 10.7-15.4 [facility], [address] [place] [address] 46944 Hemoglobin February 20, 2020 8:35am 13.4 g/dL 10.7-15.4 [facility], [address] [place] [address] 69018 Hematocrit August 30, 2020 8:15pm 34.4 % 37-47 [facility], [address] [place] [address] 33033 Hematocrit August 09, 2020 7:35pm 36.1 % 37-47 [facility], [address] [place] [address] 39669 Hematocrit August 14, 2020 9:31am 36.3 % 37-47 [facility], [address] [place] [address] 13622 Hematocrit August 03, 2020 2:35pm 36.1 % 37-47 [facility], [address] [place] [address] 39975 Hematocrit July 01, 2020 9:40pm 36.6 % 37-47 [facility], [address] [place] [address] 18974 Hematocrit May 18, 2020 6:17am 34.1 % 37-47 [facility], [address] [place] [address] 48808 Hematocrit March 25, 2020 8:11am 34.7 % 37-47 [facility], [address] [place] [address] 62994 Hematocrit March 11, 2020 12:14pm 37.2 % 37-47 [facility], [address] [place] [address] 20520 Hematocrit March 02, 2020 11:00am 36.9 % 37-47 [facility], [address] [place] [address] 54832 Hematocrit February 26, 2020 10:02am 39.4 % 37-47 [facility], [address] [place] [address] 24951 Hematocrit February 20, 2020 8:35am 41.0 % 37-47 [facility], [address] [place] [address] 31320 Mean Corpuscular Volume August 30, 2020 8:15pm 80.8 fl 80-96 [facility], [address] [place] [address] 41768 Mean Corpuscular Volume July 7:35pm 80.4 fl 80-96 [facility], [address] [place] [address] 75355 Mean Corpuscular Volume July 9:31am 79.4 fl 80-96 [facility], [address] [place] [address] 35570 Mean Corpuscular Volume July 2:35pm 80.8 fl 80[facility], [address] [place] [address] 39402 Mean Corpuscular Volume June 9:40pm 81.2 fl 80- [facility], [address] [place] [address] 11308 Mean Corpuscular Volume May 182019 6:17am 83.[address] [facility], [address] [place] [address] 42724 Mean Corpuscular Volume March 25, 2020 8:11am 81.[address] [facility], [address] [place] [address] 57525 Mean Corpuscular Volume March 11, 020 12:14pm 81.[address] [facility], [address] [place] [address] 37569 Mean Corpuscular Volume March 02, 020 11:00am 81.[address] [facility], [address] [place] [address] 33520 Mean Corpuscular Volume February 25 10:02am 81.[address] [place] [address] LABORATORY, [address] [place] [address] 06058 Mean Corpuscular Volume February 19, 020 8:35am 81.7 fl 80- [facility], [address] [place] [address] 41884 Mean Corpuscular Hemoglobin August 30, 2020 8:15pm 24.6 pg 27-31 [facility], [address] [place] [address] 07709 Mean Corpuscular Hemoglobin August 09, 2020 7:35pm 25.4 pg 27-31 [facility], [address] [place] [address] 82048 Mean Corpuscular Hemoglobin August 14, 2020 9:31am 24.9 pg 27-31 [facility], [address] [place] [address] 16174 Mean Corpuscular Hemoglobin August 03, 2020 2:35pm 25.7 pg 27-31 [facility], [address] [place] [address] 73048 Mean Corpuscular Hemoglobin July 01, 2020 9:40pm 26.2 pg 27-31 [facility], [address] [place] [address] 52316 Mean Corpuscular Hemoglobin 2019 6:17am 26.6 pg 27-31 [facility], [address] [place] [address] 18127 Mean Corpuscular Hemoglobin March 252019 8:11am 27.1 pg 27-31 [facility], [address] [place] [address] 85837 Mean Corpuscular Hemoglobin February 12:14pm 27.1 pg 2731 [facility], [address] [place] [address] 51273 Mean Corpuscular Hemoglobin February 11 h2019 11:00am 26.8 pg 27-31 [facility], [address] [place] [address] 12857 Mean Corpuscular Hemoglobin February 10:02am 26.[address] [facility], [address] [place] [address] 04677 Mean Corpuscular Hemoglobin January 8:35am 26.[address] [facility], [address] [place] [address] 47789 Mean Corpuscular Hemoglobin Concent August 30, 2020 8:15pm 30.5 g/dl [address] [place] [address] [facility]ORATORY, [address] [place] [address] 37834 Mean Corpuscular Hemoglobin Concent August 09, 2020 7:35pm 31.6 g/dl [address] [place] [address] LABORATORY, [address] [place] [address] 40828 Mean Corpuscular Hemoglobin Concent August 14, 2020 9:31am 31.4 g/dl [address] [place] [address] LABORATORY, [address] [place] [address] 48507 Mean Corpuscular Hemoglobin Concent August 03, 2020 2:35pm 31.9 g/dl [address] [facility], [address] [place] [address] 06064 Mean Corpuscular Hemoglobin Concent July 01, 2020 9:40pm 32.2 g/dl [address] [facility], [address] [place] [address] 49409 Mean Corpuscular Hemoglobin Concent May 18, 2020 6:17am 32.0 g/dl [facility], [address] [place] [address] 19177 Mean Corpuscular Hemoglobin Concent March 25, 2020 8:11am 33.1 g/dl [address] [facility], [address] [place] [address] 76819 Mean Corpuscular Hemoglobin Concent March 11, 2020 12:14pm 33.3 g/dl [address] [facility], [address] [place] [address] 79554 Mean Corpuscular Hemoglobin Concent March 02, 2020 11:00am 32.8 g/dl [address] [facility], [address] [place] [address] 63515 Mean Corpuscular Hemoglobin Concent February 26, 2020 10:02am 33.0 g/dl [address] [place] [address] LABORATORY, [address] [place] [address] 00937 Mean Corpuscular Hemoglobin Concent February 20, 2020 8:35am 32.7 g/dl [address] [facility], [address] [place] [address] 26179 Red Cell Distribution Width August 30, 2020 8:15pm 15 % 11-15 [facility], [address] [place] [address] 99896 Red Cell Distribution Width August 09, 2020 7:35pm 14 % 11-15 [facility], [address] [place] [address] 50467 Red Cell Distribution Width August 14, 2020 9:31am 15 % 11-15 [facility], [address] [place] [address] 10973 Red Cell Distribution Width August 03, 2020 2:35pm 14 % 11-15 [facility], [address] [place] [address] 58775 Red Cell Distribution Width July 01, 2020 9:40pm 14 % 11-15 [facility], [address] [place] [address] 51418 Red Cell Distribution Width 2019 6:17am 14 % 11-15 [facility], [address] [place] [address] 04551 Red Cell Distribution Width March 252019 8:11am 15 % 11-15 [facility], [address] [place] [address] 40125 Red Cell Distribution Width February 12:14pm 15 % 11-15 [facility], [address] [place] [address] 40195 Red Cell Distribution Width February 11:00am 14 % 11-15 [facility], [address] [place] [address] 04183 Red Cell Distribution Width February 10:02am 14 % 11-15 [facility], [address] [place] [address] Red Cell Distribution Width January 8:35am 15 % 11-15 [facility], [address] [place] [address] Platelet Count August 30, 2020 8:15pm 422 10e3/ul 130-472 [facility], [address] [place] [address] Platelet Count August 09, 2020 7:35pm 423 10e3/ul 130-472 [facility], [address] [place] [address] Platelet Count August 14, 2020 9:31am 429 10e3/ul 130-472 [facility], [address] [place] [address] Platelet Count August 03, 2020 2:35pm 372 10e3/ul 130-472 [facility], [address] [place] [address] Platelet Count July 01, 2020 9:40pm 392 10e3/ul 130-472 [facility], [address] [place] [address] Platelet Count May 18, 2020 6:17am 332 10e3/ul 130-472 [facility], [address] [place] [address] 21492 Platelet Count March 25, 2020 8:11am 395 10e3/ul 130-472 [facility], [address] [place] [address] 62047 Platelet Count March 11, 2020 12:14pm 460 10e3/ul 130-472 [facility], [address] [place] [address] Platelet Count March 02, 2020 11:00am 410 10e3/ul 130-472 [facility], [address] [place] [address] Platelet Count February 26, 2020 10:02am 436 10e3/ul 130-472 [facility], [address] [place] [address] Platelet Count February 20, 2020 8:35am 479 10e3/ul 130-472 [facility], [address] [place] [address] Mean Platelet Volume August 30 8:15pm 8.7 fl 9.1-13.1 [facility], [address] [place] [address] Mean Platelet Volume August 09, 2020 7:35pm 8.9 fl 9.1-13.1 [facility], [address] [place] [address] Mean Platelet Volume August 14, 2020 9:31am 8.9 fl 9.1-13.1 [facility], [address] [place] [address] 07013 Mean Platelet Volume August 03, 2020 2:35pm 9.0 fl 9.1-13.1 [facility], [address] [place] [address] 55973 Mean Platelet Volume July 01 9:40pm 8.6 fl 9.1-13.1 [facility], [address] [place] [address] 23500 Mean Platelet Volume May 18, 2020 6:17am 8.6 fl 9.1-13.1 [facility], [address] [place] [address] 24428 Mean Platelet Volume March 25 8:11am 8.3 fl 9.1-13.1 [facility], [address] [place] [address] 46998 Mean Platelet Volume March 11, 2020 12:14pm 8.4 fl 9.1-13.1 [facility], [address] [place] [address] 12650 Mean Platelet Volume March 02, 2020 11:00am 8.6 fl 9.1-13.1 [facility], [address] [place] [address] 99095 Mean Platelet Volume February 26, 2020 10:02a m 8.7 fl 9.1-13.1 [facility], [address] [place] [address] 53295 Mean Platelet Volume February 20, 2020 8:35a m 8.7 fl 9.1-13.1 [facility], [address] [place] [address] 02746 Neutrophils (%) (Auto) August 30, 2020 8:15pm 69.3 % 41-77 [facility], [address] [place] [address] 32379 Neutrophils (%) (Auto) July 7:35pm 71.3 % 41-77 [facility], [address] [place] [address] 85501 Neutrophils (%) (Auto) July 9:31am 63.7 % 41-[address] [place] [address] [facility]ORATORY, [address] [place] [address] 88741 Neutrophils (%) (Auto) July 2:35pm 68.8 % 41-[address] [place] [address] LABORATORY, [address] [place] [address] 79330 Neutrophils (%) (Auto) July 01, 2020 9:40pm 66.3 % 41-77 [facility], [address] [place] [address] 14248 Neutrophils (%) (Auto) April 6:17am 66.1 % [address] [place] [address] LABORATORY, [address] [place] [address] 68557 Neutrophils (%) (Auto) March 25 8:11am 58.4 % [address] [place] [address] LABORATORY, [address] [place] [address] 46867 Neutrophils (%) (Auto) March 11 12:14pm 72.2 % [address] [place] [address] LABORATORY, [address] [place] [address] 14938 Neutrophils (%) (Auto) March 02 11:00am 65.4 % [address] [place] [address] LABORATORY, [address] [place] [address] 75401 Neutrophils (%) (Auto) February 25 0 10:02am 62.6 % [address] [place] [address] LABORATORY, [address] [place] [address] 03142 Neutrophils (%) (Auto) February 19 8:35am 62.4 % [address] [place] [address] LABORATORY, [address] [place] [address] 03731 Absolute Neutrophil August 30 8:15pm 7.8 # 1.7-7.6 [facility], [address] [place] [address] 15032 Absolute Neutrophil August 09, 020 7:35pm 7.0 # 1.7-7.6 [facility], [address] [place] [address] 36153 Absolute Neutrophil August 14, 020 9:31am 6.2 # 1.7-7.6 [facility], [address] [place] [address] 93644 Absolute Neutrophil August 03, 020 2:35pm 5.9 # 1.7-7.6 [facility], [address] [place] [address] 65390 Absolute Neutrophil July 01 9:40pm 7.5 # 1.7-7.6 [facility], [address] [place] [address] 42885 Absolute Neutrophil May 18, 2020 6:17am 6.1 # 1.7-7.6 [facility], [address] [place] [address] 85926 Absolute Neutrophil March 25, 2020 8:11a m 6.3 # 1.7-7.6 [facility], [address] [place] [address] 67061 Absolute Neutrophil March 11, 2020 12:14p m 8.1 # 1.7-7.6 [facility], [address] [place] [address] 04721 Absolute Neutrophil March 02, 2020 11:00a m 6.7 # 1.7-7.6 [facility], [address] [place] [address] 01510 Absolute Neutrophil February 26, 2020 10:02am 6.1 # 1.7-7.6 [facility], [address] [place] [address] 67004 Absolute Neutrophil February 20, 2020 8:35am 5.5 # 1.7-7.6 [facility], [address] [place] [address] 61938 Lymphocytes (%) (Auto) August 30, 2020 8:15pm 20.7 % 1446 [facility], [address] [place] [address] 53245 Lymphocytes (%) (Auto) July 7:35pm 19.4 % [address] [facility], [address] [place] [address] 39879 Lymphocytes (%) (Auto) July 9:31am 25.9 % 1446 [facility], [address] [place] [address] 36911 Lymphocytes (%) (Auto) July 2:35pm 20.2 % 1446 [facility], [address] [place] [address] 14925 Lymphocytes (%) (Auto) July 01, 2020 9:40pm 21.4 % [address] [facility], [address] [place] [address] 91152 Lymphocytes (%) (Auto) April 6:17am 22.8 % 14-46 [facility], [address] [place] [address] [id number] Lymphocytes (%) (Auto) March 25 8:11am 30.4 % 1446 [facility], [address] [place] [address] [id number] Lymphocytes (%) (Auto) March 11 12:14pm 19.0 % 1446 [facility], [address] [place] [address] [id number] Lymphocytes (%) (Auto) March 02 11:00am 23.6 % 1446 [facility], [address] [place] [address] [id number] Lymphocytes (%) (Auto) February 25 0 10:02am 25.4 % 14-46 [facility], [address] [place] [address] [id number] Lymphocytes (%) (Auto) February 19 8:35am 26.5 % 14-46 [facility], [address] [place] [address] [id number] Lymphocytes # (Auto) August 30 8:15pm 2.3 # 0.6-4.6 [facility], [address] [place] [address] [id number] Lymphocytes # (Auto) August 09, 2020 7:35pm 1.9 # 0.6-4.6 [facility], [address] [place] [address] [id number] Lymphocytes # (Auto) August 14, 2020 9:31am 2.5 # 0.6-4.6 [facility], [address] [place] [address] [id number] Lymphocytes # (Auto) August 03, 2020 2:35pm 1.7 # 0.6-4.6 [facility], [address] [place] [address] [id number] Lymphocytes # (Auto) July 01 020 9:40pm 2.4 # 0.6-4.6 [facility], [address] [place] [address] [id number] Lymphocytes # (Auto) May 18, 2020 6:17am 2.1 # 0.6-4.6 [facility], [address] [place] [address] [id number] Lymphocytes # (Auto) March 25 0 8:11am 3.3 # 0.6-4.6 [facility], [address] [place] [address] [id number] Lymphocytes # (Auto) March 11, 2020 12:14pm 2.1 # 0.6-4.6 [facility], [address] [place] [address] [id number] Lymphocytes # (Auto) March 02, 2020 11:00am 2.4 # 0.6-4.6 [facility], [address] [place] [address] [id number] Lymphocytes # (Auto) February 26, 2020 10:02a m 2.5 # 0.6-4.6 [facility], [address] [place] [address] [id number] Lymphocytes # (Auto) February 20, 2020 8:35a m 2.3 # 0.6-4.6 [facility], [address] [place] [address] [id number] Monocytes (%) (Auto) August 30 8:15pm 6.8 % 412 [facility], [address] [place] [address] [id number] Monocytes (%) (Auto) August 09, 2020 7:35pm 7.0 % 477 DUNN [facility], [address] [place] [address] 24149 Monocytes (%) (Auto) August 14, 2020 9:31am 6.9 % [address] [facility], [address] [place] [address] 86533 Monocytes (%) (Auto) August 03, 2020 2:35pm 8.3 % 412 [facility], [address] [place] [address] 11259 Monocytes (%) (Auto) July 01 9:40pm 8.9 % [address] [facility], [address] [place] [address] 39154 Monocytes (%) (Auto) May 18, 2020 6:17am 8.7 % [address] [facility], [address] [place] [address] 29565 Monocytes (%) (Auto) March 25 0 8:11am 7.7 % [address] [facility], [address] [place] [address] 19292 Monocytes (%) (Auto) March 11, 2020 12:14pm 5.5 % [address] [facility], [address] [place] [address] 73386 Monocytes (%) (Auto) March 02, 2020 11:00am 7.8 % [address] [facility], [address] [place] [address] 64140 Monocytes (%) (Auto) February 26, 2020 10:02a m 8.2 % [address] [facility], [address] [place] [address] 28188 Monocytes (%) (Auto) February 20, 2020 8:35a m 8.0 % 412 [facility], [address] [place] [address] 88257 Monocytes # August 30, 2020 8:15pm 0.8 # 0.2-1.2 [facility], [address] [place] [address] 99647 Monocytes # August 09, 2020 7:35pm 0.7 # 0.2-1.2 [facility], [address] [place] [address] 61464 Monocytes # August 14, 2020 9:31am 0.7 # 0.2-1.2 [facility], [address] [place] [address] 10529 Monocytes # August 03, 2020 2:35pm 0.7 # 0.2-1.2 [facility], [address] [place] [address] 68149 Monocytes # July 01, 2020 9:40pm 1.0 # 0.2-1.2 [facility], [address] [place] [address] 47217 Monocytes # May 18, 2020 6:17am 0.8 # 0.2-1.2 [facility], [address] [place] [address] 30107 Monocytes # March 25, 2020 8:11am 0.8 # 0.2-1.2 [facility], [address] [place] [address] 73563 Monocytes # March 11, 2020 12:14pm 0.6 # 0.2-1.2 [facility], [address] [place] [address] 41573 Monocytes # March 02, 2020 11:00am 0.8 # 0.2-1.2 [facility], [address] [place] [address] 87650 Monocytes # February 26, 2020 10:02am 0.8 # 0.2-1.2 [facility], [address] [place] [address] 49531 Monocytes # February 20, 2020 8:35am 0.7 # 0.2-1.2 [facility], [address] [place] [address] 58187 Eosinophils (%) (Auto) August 30, 2020 8:15pm 2.4 % 0-7 [facility], [address] [place] [address] 09216 Eosinophils (%) (Auto) July 7:35pm 1.8 % 0-7 [facility], [address] [place] [address] 93412 Eosinophils (%) (Auto) July 9:31am 3.0 % 0-7 [facility], [address] [place] [address] 77122 Eosinophils (%) (Auto) July 2:35pm 2.2 % 0-7 [facility], [address] [place] [address] 07791 Eosinophils (%) (Auto) July 01, 2020 9:40pm 2.7 % 0-7 [facility], [address] [place] [address] 61908 Eosinophils (%) (Auto) April 6:17am 1.9 % 0-7 [facility], [address] [place] [address] 28160 Eosinophils (%) (Auto) March 25 8:11am 2.7 % 0-7 [facility], [address] [place] [address] 81802 Eosinophils (%) (Auto) March 11 12:14pm 2.5 % 0-7 [facility], [address] [place] [address] 91094 Eosinophils (%) (Auto) March 02 11:00am 2.4 % 0-7 [facility], [address] [place] [address] 08155 Eosinophils (%) (Auto) February 25 0 10:02am 3.1 % 0-7 [facility], [address] [place] [address] 66938 Eosinophils (%) (Auto) February 19 8:35am 2.6 % 0-7 [facility], [address] [place] [address] 04161 Absolute Eosinophils (CBC) August 302020 8:15pm 0.3 # 0.0-0.5 [facility], [address] [place] [address] 92139 Absolute Eosinophils (CBC) August 09, 2020 7:35pm 0.2 # 0.0-0.5 [facility], [address] [place] [address] 36907 Absolute Eosinophils (CBC) August 14, 2020 9:31am 0.3 # 0.0-0.5 [facility], [address] [place] [address] 51940 Absolute Eosinophils (CBC) August 03, 2020 2:35pm 0.2 # 0.0-0.5 [facility], [address] [place] [address] 90208 Absolute Eosinophils (CBC) July 01, 2020 9:40pm 0.3 # 0.0-0.5 [facility], [address] [place] [address] 96328 Absolute Eosinophils (CBC) May 18, 2020 6:17am 0.2 # 0.0-0.5 [facility], [address] [place] [address] 51143 Absolute Eosinophils (CBC) March 8:11am 0.3 # 0.0-0.5 [facility], [address] [place] [address] 18751 Absolute Eosinophils (CBC) February 12:14pm 0.3 # 0.0-0.5 [facility], [address] [place] [address] 00152 Absolute Eosinophils (CBC) February 11:00am 0.3 # 0.0-0.5 [facility], [address] [place] [address] Absolute Eosinophils (CBC) February 26, 2020 10:02am 0.3 # 0.0-0.5 [facility], [address] [place] [address] Absolute Eosinophils (CBC) January 8:35am 0.2 # 0.0-0.5 [facility], [address] [place] [address] 46094 Basophils (%) (Auto) August 30 8:15pm 0.4 % 0.4-1.3 [facility], [address] [place] [address] 16154 Basophils (%) (Auto) August 09, 2020 7:35pm 0.3 % 0.4-1.3 [facility], [address] [place] [address] 01530 Basophils (%) (Auto) August 14, 2020 9:31am 0.3 % 0.4-1.3 [facility], [address] [place] [address] 94948 Basophils (%) (Auto) August 03, 2020 2:35pm 0.3 % 0.4-1.3 [facility], [address] [place] [address] 30522 Basophils (%) (Auto) July 01 020 9:40pm 0.4 % 0.4-1.3 [facility], [address] [place] [address] 57710 Basophils (%) (Auto) May 18, 2020 6:17am 0.3 % 0.4-1.3 [facility], [address] [place] [address] 67713 Basophils (%) (Auto) March 25 0 8:11am 0.5 % 0.4-1.3 [facility], [address] [place] [address] 25680 Basophils (%) (Auto) March 11, 2020 12:14pm 0.4 % 0.4-1.3 [facility], [address] [place] [address] 38591 Basophils (%) (Auto) March 02, 2020 11:00am 0.5 % 0.4-1.3 [facility], [address] [place] [address] 03286 Basophils (%) (Auto) February 26, 2020 10:02a m 0.4 % 0.4-1.3 [facility], [address] [place] [address] 24194 Basophils (%) (Auto) February 20, 2020 8:35a m 0.3 % 0.4-1.3 [facility], [address] [place] [address] 53357 Absolute Basophils (CBC) August 8:15pm 0.1 # 0.0-0.2 [facility], [address] [place] [address] 09131 Absolute Basophils (CBC) August 092019 7:35pm 0.0 # 0.0-0.2 [facility], [address] [place] [address] 53203 Absolute Basophils (CBC) August 142019 9:31am 0.0 # 0.0-0.2 [facility], [address] [place] [address] 71160 Absolute Basophils (CBC) August 032019 2:35pm 0.0 # 0.0-0.2 [facility], [address] [place] [address] 66843 Absolute Basophils (CBC) June 9:40pm 0.0 # 0.0-0.2 [facility], [address] [place] [address] 15721 Absolute Basophils (CBC) April 242019 6:17am 0.0 # 0.0-0.2 [facility], [address] [place] [address] 94711 Absolute Basophils (CBC) March 25, 2020 8:11am 0.1 # 0.0-0.2 [facility], [address] [place] [address] 48622 Absolute Basophils (CBC) March 11, 2020 12:14pm 0.0 # 0.0-0.2 [facility], [address] [place] [address] 59070 Absolute Basophils (CBC) March 02, 2020 11:00am 0.1 # 0.0-0.2 [facility], [address] [place] [address] 00396 Absolute Basophils (CBC) February 25 10:02am 0.0 # 0.0-0.2 [facility], [address] [place] [address] 93269 Absolute Basophils (CBC) February 20, 2020 8:35am 0.0 # 0.0-0.2 [facility], [address] [place] [address] 11450 Immature Granulocyte % (Auto) Auguar 2020 8:15pm 0.4 % 0-2 [facility], [address] [place] [address] 83312 Immature Granulocyte % (Auto) [facility] [place] er 2019 7:35pm 0.2 % 0-2 [facility], [address] [place] [address] 85894 Immature Granulocyte % (Auto) [facility] [place] er 2019 9:31am 0.2 % 0-2 [facility], [address] [place] [address] 93199 Immature Granulocyte % (Auto) [facility] [place] er 2019 2:35pm 0.2 % 0-2 [facility], [address] [place] [address] 10083 Immature Granulocyte % (Auto) [facility] er 2019 9:40pm 0.3 % 0-2 [facility], [address] [place] [address] 94333 Immature Granulocyte % (Auto) 2019 6:17am 0.2 % 0-2 [facility], [address] [place] [address] 67401 Immature Granulocyte % (Auto) March 25, 2020 8:11am 0.3 % 0-2 [facility], [address] [place] [address] 58420 Immature Granulocyte % (Auto) February 212019 12:14pm 0.4 % 0-2 [facility], [address] [place] [address] 36240 Immature Granulocyte % (Auto) February 202019 11:00am 0.3 % 0-2 [facility], [address] [place] [address] 04828 Immature Granulocyte % (Auto) February 252019 10:02am 0.3 % 0-2 [facility], [address] [place] [address] 71652 Immature Granulocyte % (Auto) January 232019 8:35am 0.2 % 0-2 [facility], [address] [place] [address] Absolute Immature Granulocyte (auto August 30, 2020 8:15pm 0.0 # 0-0.1 [facility], [address] [place] [address] Absolute Immature Granulocyte (auto August 09, 2020 7:35pm 0.0 # 0-0.1 [facility], [address] [place] [address] Absolute Immature Granulocyte (auto August 14, 2020 9:31am 0.0 # 0-0.1 [facility], [address] [place] [address] Absolute Immature Granulocyte (auto August 03, 2020 2:35pm 0.0 # 0-0.1 [facility], [address] [place] [address] Absolute Immature Granulocyte (auto July 01, 2020 9:40pm 0.0 # 0-0.1 [facility], [address] [place] [address] Absolute Immature Granulocyte (auto May 18, 2020 6:17am 0.0 # 0-0.1 [facility], [address] [place] [address] Absolute Immature Granulocyte (auto March 25, 2020 8:11am 0.0 # 0-0.1 [facility], [address] [place] [address] Absolute Immature Granulocyte (auto March 11, 2020 12:14pm 0.0 # 0-0.1 [facility], [address] [place] [address] Absolute Immature Granulocyte (auto March 02, 2020 11:00am 0.0 # 0-0.1 [facility], [address] [place] [address] Absolute Immature Granulocyte (auto February 26, 2020 10:02am 0.0 # 0-0.1 [facility], [address] [place] [address] Absolute Immature Granulocyte (auto February 20, 2020 8:35am 0.0 # 0-0.1 [facility], [address] [place], [place] [id number] Add Manual Differential August 30, 2020 8:15pm No [facility], [address] [place] [address] 68408 Add Manual Differential July h2019 7:35pm No [facility], [address] [place], [place] [id number] Add Manual Differential July 9:31am No [facility], [address] [place] [address] 36102 Add Manual Differential July 2:35pm No [facility], [address] [place] [address] 74062 Add Manual Differential June 9:40pm No [facility], [address] [place] [address] 89592 Add Manual Differential May 182019 6:17am No [facility], [address] [place] [address] 90389 Add Manual Differential March 25, 2020 8:11am No [facility], [address] [place] [address] 52962 Add Manual Differential March 11 12:14pm No [facility], [address] [place] [address] 67908 Add Manual Differential March 02 11:00am No [facility], [address] [place] [address] 71257 Add Manual Differential February 25 10:02am No [facility], [address] [place] [address] 63550 Add Manual Differential February 19 8:35am No [facility], [address] [place] [address] 65146 Differential Total Cells Counted Apr 7:20pm 100 [facility], [address] [place] [address] 33248 Neutrophils (Manual) May 17, 2020 7:20pm 77 % 41-77 [facility], [address] [place] [address] 27275 Band Neutrophils May 17 0 7:20pm 3 % 0-5 [facility], [address] [place] [address] 03121 Lymphocytes (Manual) May 17, 2020 7:20pm 17 % 14-46 [facility], [address] [place] [address] 12488 Monocytes (Manual) May 17 7:20pm 3 % 4-12 [facility], [address] [place] [address] 86370 Platelet Estimate May 17 7:20pm Appears normal NORMAL [facility], [address] [place] [address] 85653 RBC Morphology May 17 0 7:20pm Appears normal NORMAL [facility], [address] [place] [address] 36691 Urine Color May 18, 2020 12:15am Yellow [facility], [address] [place] [address] 50232 Urine Color February 20, 2020 8:40am Yellow [facility], [address] [place] [address] 83638 Urine Color August 30, 2020 8:15pm Wisner [facility], [address] [place] [address] 89302 Urine Color August 09, 2020 8:06pm Yellow [facility], [address] [place] [address] 24788 Urine Color August 03, 2020 2:50pm Yellow [facility], [address] [place] [address] 81180 Urine Color July 01, 2020 9:30pm Yellow [facility], [address] [place] [address] 37306 Urine Color March 25, 2020 8:05am Yellow [facility], [address] [place] [address] 98318 Urine Color March 11, 2020 11:00am Yellow [facility], [address] [place] [address] 75617 Urine Color March 05, 2020 2:29pm Yellow [facility], [address] [place] [address] 93187 Urine Color March 02, 2020 10:48am Yellow [facility], [address] [place] [address] 46544 Urine Appearance August 30, 2020 8:15pm Turbid CLEAR [facility], [address] [place] [address] 43717 Urine Appearance August 09, 2020 8:06p m Clear CLEAR [facility], [address] [place] [address] 62405 Urine Appearance August 03, 2020 2:50p m Clear CLEAR [facility], [address] [place] [address] 86313 Urine Appearance July 01, 2020 9:30pm Cloudy CLE[facility], [address] [place] [address] 70219 Urine Appearance May 18 12:15am Clear CLEAR [facility], [address] [place] [address] 51210 Urine Appearance March 25, 2020 8:05am Cloudy CLEAR [facility], [address] [place] [address] 28540 Urine Appearance March 11, 2020 11:00am Cloudy CLEAR [facility], [address] [place] [address] 09444 Urine Appearance March 05, 2020 2:29pm Cloudy CLEAR [facility], [address] [place] [address] 02218 Urine Appearance March 02, 2020 10:48am Cloudy CLEAR [facility], [address] [place] [address] 78241 Urine Appearance February 20, 2020 8:40am Turbid CLEAR [facility], [address] [place] [address] 43026 Urine pH August 30, 2020 8:15pm 6.5 [facility], [address] [place] [address] 75559 Urine pH August 09, 2020 8:06pm 6.5 [facility], [address] [place] [address] 52819 Urine pH August 03, 2020 2:50pm 7.5 [facility], [address] [place] [address] 61828 Urine pH July 01, 2020 9:30pm 6.0 [facility], [address] [place] [address] 01446 Urine pH May 18, 2020 12:15am 6.0 [facility], [address] [place] [address] 74825 Urine pH March 25, 2020 8:05am 5.5 [facility], [address] [place] [address] 79151 Urine pH March 11, 2020 11:00am 6.5 [facility], [address] [place] [address] 65525 Urine pH March 05, 2020 2:29pm 6.0 [facility], [address] [place] [address] 23303 Urine pH March 02, 2020 10:48am 5.5 [facility], [address] [place] [address] 24995 Urine pH February 20, 2020 8:40am 5.5 [facility], [address] [place] [address] 58997 Urine Specific Glynn August 30, 2020 8:15pm 1.033 [facility], [address] [place] [address] 18942 Urine Specific Glynn July 8:06pm 1.022 [facility], [address] [place] [address] 62755 Urine Specific Glynn July 2:50pm 1.020 [facility], [address] [place] [address] 98743 Urine Specific Glynn July 01, 2020 9:30pm 1.026 [facility], [address] [place] [address] 08821 Urine Specific Glynn April 12:15am >1.045 [facility], [address] [place] [address] 46079 Urine Specific Glynn March 25 8:05am 1.025 [facility], [address] [place] [address] Urine Specific Glynn March 11 11:00am 1.025 [facility], [address] [place] [address] Urine Specific Glynn March 05 2:29pm 1.021 [facility], [address] [place] [address] Urine Specific Glynn March 02 10:48am 1.025 [facility], [address] [place] [address] Urine Specific Glynn February 19 8:40am 1.023 [facility], [address] [place] [address] Urine Leukocyte Esterase April 242019 12:15am Negative NEGATIVE [facility], [address] [place] [address] Urine Leukocyte Esterase February 20, 2020 8:40am Moderate NEGATIVE [facility], [address] [place] [address] Urine Leukocyte Esterase August 8:15pm Small NEGATIVE A Culture has been added to this specimen per established criteria [facility], [address] [place] [address] Urine Leukocyte Esterase August 092019 8:06pm Small NEGATIVE A Culture has been added to this specimen per established criteria [facility], [address] [place] [address] Urine Leukocyte Esterase August 032019 2:50pm Small NEGATIVE A Culture has been added to this specimen per established criteria [facility], [address] [place] [address] Urine Leukocyte Esterase June 9:30pm Small NEGATIVE A Culture has been added to this specimen per established criteria [facility], [address] [place] [address] Urine Leukocyte Esterase March 25, 2020 8:05am Trace NEGATIVE A Culture has been added to this specimen per established criteria [facility], [address] [place] [address] Urine Leukocyte Esterase March 11, 2020 11:00am Trace NEGATIVE A Culture has been added to this specimen per established criteria [facility], [address] [place] [address] Urine Leukocyte Esterase March 05, 2020 2:29pm Trace NEGATIVE A Culture has been added to this specimen per established criteria [facility], [address] [place] [address] Urine Leukocyte Esterase March 02, 2020 10:48am Trace NEGATIVE A Culture has been added to this specimen per established criteria [facility], [address] [place] [address] Urine Nitrite May 18, 2020 12:15am Negative NEGATIVE [facility], [address] [place] [address] 18014 Urine Nitrite February 20, 2020 8:40am Negative NEGATIVE [facility], [address] [place] [address] 37943 Urine Nitrate August 30, 2020 8:15pm Negative NEGATIVE [facility], [address] [place] [address] 53794 Urine Nitrate August 09, 2020 8:06pm Negative NEGATIVE [facility], [address] [place] [address] 76256 Urine Nitrate August 03, 2020 2:50pm Negative NEGATIVE [facility], [address] [place] [address] 06040 Urine Nitrate July 01, 2020 9:30pm Negative NEGATIVE [facility], [address] [place] [address] 46926 Urine Nitrate March 25, 2020 8:05am Negative NEGATIVE [facility], [address] [place] [address] 99499 Urine Nitrate March 11, 2020 11:00am Negative NEGATIVE [facility], [address] [place] [address] 48742 Urine Nitrate March 05, 2020 2:29pm Negative NEGATIVE [facility], [address] [place] [address] [id number] Urine Nitrate March 02, 2020 10:48am Negative NEGATIVE [facility], [address] [place] [address] [id number] Urine Protein August 30, 2020 8:15pm 30 mg/dl NEGATIVE [facility], [address] [place] [address] [id number] Urine Protein August 09, 2020 8:06pm Negative NEGATIVE [facility], [address] [place] [address] [id number] Urine Protein August 03, 2020 2:50pm Negative NEGATIVE [facility], [address] [place] [address] Urine Protein July 01, 2020 9:30pm Trace NEGATIVE [facility], [address] [place] [address] [id number] Urine Protein May 18, 2020 12:15am Negative NEGATIVE [facility], [address] [place] [address] [id number] Urine Protein March 25, 2020 8:05am Negative NEGATIVE [facility], [address] [place] [address] [id number] Urine Protein March 11, 2020 11:00am Trace NEGATIVE [facility], [address] [place] [address] [id number] Urine Protein March 05, 2020 2:29pm Trace NEGATIVE [facility], [address] [place] [address] [id number] Urine Protein March 02, 2020 10:48am Negative NEGATIVE [facility], [address] [place] [address] [id number] Urine Protein February 20, 2020 8:40am 30 mg/dl NEGATIVE [facility], [address] [place] [address] [id number] Urine Glucose August 30, 2020 8:15pm Negative NEGATIVE [facility], [address] [place] [address] [id number] Urine Glucose August 09, 2020 8:06pm Negative NEGATIVE [facility], [address] [place] [address] [id number] Urine Glucose August 03, 2020 2:50pm Negative NEGATIVE [facility], [address] [place] [address] [id number] Urine Glucose July 01, 2020 9:30pm Negative NEGATIVE [facility], [address] [place] [address] [id number] Urine Glucose May 18, 2020 12:15am Negative NEGATIVE [facility], [address] [place] [address] [id number] Urine Glucose March 25, 2020 8:05am Negative NEGATIVE [facility], [address] [place] [address] [id number] Urine Glucose March 11, 2020 11:00am Negative NEGATIVE [facility], [address] [place] [address] [id number] Urine Glucose March 05, 2020 2:29pm Negative NEGATIVE [facility], [address] [place] [address] [id number] Urine Glucose March 02, 2020 10:48am Negative NEGATIVE [facility], [address] [place] [address] [id number] Urine Glucose February 20, 2020 8:40am Negative NEGATIVE [facility], [address] [place] [address] [id number] Urine Ketones August 30, 2020 8:15pm Trace NEGATIVE [facility], [address] [place] [address] [id number] Urine Ketones August 09, 2020 8:06pm Negative NEGATIVE [facility], [address] [place] [address] [id number] Urine Ketones August 03, 2020 2:50pm Negative NEGATIVE [facility], [address] [place] [address] [id number] Urine Ketones July 01, 2020 9:30pm Trace NEGATIVE [facility], [address] [place] [address] 75059 Urine Ketones May 18, 2020 12:15am Negative NEGATIVE [facility], [address] [place] [address] [id number] Urine Ketones March 25, 2020 8:05am Trace NEGATIVE [facility], [address] [place] [address] [id number] Urine Ketones March 11, 2020 11:00am Trace NEGATIVE [facility], [address] [place] [address] Urine Ketones March 05, 2020 2:29pm Negative NEGATIVE [facility], [address] [place] [address] Urine Ketones March 02, 2020 10:48am Negative NEGATIVE [facility], [address] [place] [address] 18085 Urine Ketones February 20, 2020 8:40am Trace NEGATIVE [facility], [address] [place] [address] 21459 Urine Urobilinogen August 30, 2020 8:15p m 1 eu/dl [facility], [address] [place] [address] Urine Urobilinogen August 09 8:06pm 1 eu/dl [facility], [address] [place] [address] 35654 Urine Urobilinogen August 03 2:50pm 1 eu/dl [facility], [address] [place] [address] 84262 Urine Urobilinogen July 01 9:30pm 1 eu/dl [facility], [address] [place] [address] Urine Urobilinogen May 18 12:15am 0.2 eu/dl [facility], [address] [place] [address] 93949 Urine Urobilinogen March 25, 2020 8:05am 1 eu/dl [facility], [address] [place] [address] 76269 Urine Urobilinogen March 11, 2020 11:00am 1 eu/dl [facility], [address] [place] [address] Urine Urobilinogen March 05, 2020 2:29pm 0.2 eu/dl [facility], [address] [place] [address] 44912 Urine Urobilinogen March 02, 2020 10:48am 1 eu/dl [facility], [address] [place] [address] Urine Urobilinogen February 20, 2020 8:40am 1 eu/dl [facility], [address] [place] [address] 88804 Urine Bilirubin August 30, 2020 8:15pm Negative NEGATIVE [facility], [address] [place] [address] 92406 Urine Bilirubin August 09, 2020 8:06pm Negative NEGATIVE [facility], [address] [place] [address] 50185 Urine Bilirubin August 03, 2020 2:50pm Negative NEGATIVE [facility], [address] [place] [address] 06041 Urine Bilirubin July 01, 2020 9:30pm Negative NEGATIVE [facility], [address] [place] [address] 38778 Urine Bilirubin May 18, 2020 12:15am Negative NEGATIVE [facility], [address] [place] [address] 36847 Urine Bilirubin March 25, 2020 8:05am Negative NEGATIVE [facility], [address] [place] [address] 75957 Urine Bilirubin March 11, 2020 11:00am Negative NEGATIVE [facility], [address] [place] [address] Urine Bilirubin March 05, 2020 2:29pm Negative NEGATIVE [facility], [address] [place] [address] 41160 Urine Bilirubin March 02, 2020 10:48am Negative NEGATIVE [facility], [address] [place] [address] Urine Bilirubin February 20, 2020 8:40am Negative NEGATIVE [facility], [address] [place] [address] 60466 Urine Blood May 18, 2020 12:15am Negative NEGATIVE [facility], [address] [place], [place] [id number] Urine Blood February 20, 2020 8:40am Large NEGATIVE [facility], [address] [place] [address] [id number] Urine Blood August 30, 2020 8:15pm Large NEGATIVE A Culture has been added to this specimen per established criteria [facility], [address] [place] [address] 17277 Urine Blood August 09, 2020 8:06pm Moderate NEGATIVE A Culture has been added to this specimen per established criteria [facility], [address] [place] [address] [id number] Urine Blood August 03, 2020 2:50pm Small NEGATIVE [facility], [address] [place] [address] Urine Blood July 01, 2020 9:30pm Moderate NEGATIVE A Culture has been added to this specimen per established criteria [facility], [address] [place] [address] 16387 Urine Blood March 25, 2020 8:05am Negative NEGATIVE [facility], [address] [place] [address] 12892 Urine Blood March 11, 2020 11:00am Negative NEGATIVE [facility], [address] [place] [address] Urine Blood March 05, 2020 2:29pm Large NEGATIVE A Culture has been added to this specimen per established criteria [facility], [address] [place] [address] 73105 Urine Blood March 02, 2020 10:48am Trace NEGATIVE [facility], [address] [place] [address] 21867 Microscopic Urinalysis Comment Septe 2019 12:15am No [facility], [address] [place] [address] 87443 Microscopic Urinalysis Comment February 20, 2020 8:40am Microscopic added [facility], [address] [place] [address] Add Urine Microanalysis August 30, 2020 8:15pm Microscopic added [facility], [address] [place] [address] Add Urine Microanalysis July 8:06pm Microscopic added [facility], [address] [place] [address] Add Urine Microanalysis July 2:50pm Microscopic added [facility], [address] [place] [address] Add Urine Microanalysis June 9:30pm Microscopic added [facility], [address] [place] [address] Add Urine Microanalysis March 25, 2020 8:05am Microscopic added [facility], [address] [place] [address] Add Urine Microanalysis March 11 020 11:00am Microscopic added [facility], [address] [place] [address] Add Urine Microanalysis March 05, 020 2:29pm Microscopic added [facility], [address] [place] [address] Add Urine Microanalysis March 02, 020 10:48am Microscopic added [facility], [address] [place] [address] Urine RBC August 30, 2020 8:15pm 1-2 /hpf [facility], [address] [place] [address] Urine RBC August 09, 2020 8:06pm 1-2 /hpf [facility], [address] [place] [address] Urine RBC August 03, 2020 2:50pm 6-10 /hpf [facility], [address] [place] [address] Urine RBC July 01, 2020 9:30pm Occasional /hpf [facility], [address] [place] [address] Urine RBC March 05, 2020 2:29pm 3-5 /hpf [facility], [address] [place] [address] Urine RBC March 02, 2020 10:48am Occasional /hpf [facility], [address] [place] [address] Urine WBC February 20, 2020 8:40am 20-30 /hpf [facility], [address] [place] [address] Urine WBC August 30, 2020 8:15pm 1-2 /hpf [facility], [address] [place] [address] Urine WBC August 09, 2020 8:06pm 1-2 /hpf [facility], [address] [place] [address] Urine WBC August 03, 2020 2:50pm 20-30 /hpf [facility], [address] [place] [address] Urine WBC July 01, 2020 9:30pm Occasional /hpf [facility], [address] [place] [address] Urine WBC March 25, 2020 8:05am 3-5 /hpf [facility], [address] [place] [address] Urine WBC March 11, 2020 11:00am 3-5 /hpf [facility], [address] [place] [address] Urine WBC March 05, 2020 2:29pm Occasional /hpf [facility], [address] [place] [address] Urine WBC March 02, 2020 10:48am 3-5 /hpf [facility], [address] [place] [address] Urine Squamous Epithelial Cells Lukas krystina 2020 8:15pm Moderate /hpf [facility], [address] [place] [address] Urine Squamous Epithelial Cells Dece 2019 8:06pm Many /hpf [facility], [address] [place] [address] Urine Squamous Epithelial Cells Dece mber 2019 2:50pm Moderate /hpf [facility], [address] [place] [address] Urine Squamous Epithelial Cells Nove mber 2019 9:30pm Moderate /hpf [facility], [address] [place] [address] Urine Squamous Epithelial Cells Augu 2019 8:05am Many /hpf [facility], [address] [place] [address] Urine Squamous Epithelial Cells March 11, 2020 11:00am Many /hpf [facility], [address] [place] [address] 51407 Urine Squamous Epithelial Cells March 05, 2020 2:29pm Many /hpf [facility], [address] [place] [address] 14466 Urine Squamous Epithelial Cells March 02, 2020 10:48am Many /hpf [facility], [address] [place] [address] Urine Squamous Epithelial Cells February 20, 2020 8:40am Many /hpf [facility], [address] [place] [address] 11343 Urine Bacteria February 20, 2020 8:40am Moderate amount NEGATIVE [facility], [address] [place] [address] 45880 Urine Bacteria August 30, 2020 8:15pm Small amount NEGATIVE [facility], [address] [place] [address] 15538 Urine Bacteria August 09, 2020 8:06pm Small amount NEGATIVE [facility], [address] [place] [address] 16838 Urine Bacteria August 03, 2020 2:50pm Small amount NEGATIVE [facility], [address] [place] [address] 72461 Urine Bacteria July 01, 2020 9:30pm Moderate amount NEGATIVE A Culture has been added to this specime n per established criteria [facility], [address] [place] [address] 71493 Urine Bacteria March 25, 2020 8:05am Small amount NEGATIVE [facility], [address] [place] [address] 82042 Urine Bacteria March 11, 2020 11:00am Small amount NEGATIVE [facility], [address] [place] [address] 38022 Urine Bacteria March 05, 2020 2:29pm Small amount NEGATIVE [facility], [address] [place] [address] 81685 Urine Bacteria March 02, 2020 10:48am Small amount NEGATIVE [facility], [address] [place] [address] 88716 Urine Mucus August 30, 2020 8:15pm Small amount [facility], [address] [place] [address] 78327 Urine Mucus March 25, 2020 8:05am Small amount [facility], [address] [place] [address] 08958 Urine Sperm February 20, 2020 8:40am Few [facility], [address] [place] [address] 81043 Blood Urea Nitrogen August 30 8:15pm 16 mg/dL 05-15 [facility], [address] [place] [address] Blood Urea Nitrogen August 09 7:35pm 8 mg/dL 05-15 [facility], [address] [place] [address] 32193 Blood Urea Nitrogen August 03 2:35pm 5 mg/dL 05-15 [facility], [address] [place] [address] Blood Urea Nitrogen July 01 9:40pm 6 mg/dL 05-15 [facility], [address] [place] [address] Blood Urea Nitrogen May 18, 2020 6:17am 7 mg/dL 05-15 [facility], [address] [place] [address] Blood Urea Nitrogen March 25, 2020 8:11a m 7 mg/dL 05-15 [facility], [address] [place] [address] Blood Urea Nitrogen March 11, 2020 12:14p m 6 mg/dL 05-15 [facility], [address] [place] [address] Blood Urea Nitrogen March 02, 2020 11:00a m 8 mg/dL 05-15 [facility], [address] [place] [address] Blood Urea Nitrogen February 26, 2020 10:02am 7 mg/dL 05-15 [facility], [address] [place] [address] Blood Urea Nitrogen February 20, 2020 8:35am 6 mg/dL 05-15 [facility], [address] [place] [address] 41345 Sodium Level August 30, 2020 8:15pm 141 mmol/L 132-146 [facility], [address] [place] [address] 62803 Sodium Level August 09, 2020 7:35pm 141 mmol/L 132-146 [facility], [address] [place] [address] 15152 Sodium Level August 03, 2020 2:35pm 138 mmol/L 132-146 [facility], [address] [place] [address] 01043 Sodium Level July 01, 2020 9:40pm 141 mmol/L 132-146 [facility], [address] [place] [address] 13435 Sodium Level May 18, 2020 6:17am 143 mmol/L 132-146 [facility], [address] [place] [address] 13798 Sodium Level March 25, 2020 8:11am 137 mmol/L 132-146 [facility], [address] [place] [address] 98977 Sodium Level March 11, 2020 12:14pm 140 mmol/L 132-146 [facility], [address] [place] [address] 86862 Sodium Level March 02, 2020 11:00am 139 mmol/L 132-146 [facility], [address] [place] [address] 65523 Sodium Level February 26, 2020 10:02am 138 mmol/L 132-146 [facility], [address] [place] [address] 04607 Sodium Level February 20, 2020 8:35am 138 mmol/L 132-146 [facility], [address] [place] [address] 15006 Potassium Level August 30, 2020 8:15pm 3.8 mmol/L 3.5-5.5 [facility], [address] [place] [address] 93676 Potassium Level August 09, 2020 7:35pm 3.9 mmol/L 3.5-5.5 [facility], [address] [place] [address] 82885 Potassium Level August 03, 2020 2:35pm 4.6 mmol/L 3.5-5.5 [facility], [address] [place] [address] 27942 Potassium Level July 01, 2020 9:40pm 3.7 mmol/L 3.5-5.5 [facility], [address] [place] [address] 57416 Potassium Level May 18, 2020 6:17a m 3.8 mmol/L 3.5-5.5 [facility], [address] [place] [address] 37025 Potassium Level March 25, 2020 8:11am 3.7 mmol/L 3.5-5.5 [facility], [address] [place] [address] 81496 Potassium Level March 11, 2020 12:14pm 4.3 mmol/L 3.5-5.5 [facility], [address] [place] [address] 92475 Potassium Level March 02, 2020 11:00am 4.1 mmol/L 3.5-5.5 [facility], [address] [place] [address] 44682 Potassium Level February 26, 2020 10:02am 4.1 mmol/L 3.5-5.5 [facility], [address] [place] [address] 18009 Potassium Level February 20, 2020 8:35am 4.1 mmol/L 3.5-5.5 [facility], [address] [place] [address] 86535 Chloride Level August 30, 2020 8:15pm 109 mmol/l 99-109 [facility], [address] [place] [address] 42936 Chloride Level August 09, 2020 7:35pm 111 mmol/l 99-109 [facility], [address] [place] [address] 66596 Chloride Level August 03, 2020 2:35pm 110 mmol/l 99-109 [facility], [address] [place] [address] 72181 Chloride Level July 01, 2020 9:40pm 110 mmol/l 99-109 [facility], [address] [place] [address] 46104 Chloride Level May 18, 2020 6:17am 113 mmol/l 99-109 [facility], [address] [place] [address] 67320 Chloride Level March 25, 2020 8:11am 111 mmol/l 99-109 [facility], [address] [place] [address] 39926 Chloride Level March 11, 2020 12:14pm 111 mmol/l 99-109 [facility], [address] [place] [address] 21201 Chloride Level March 02, 2020 11:00am 111 mmol/l 99-109 [facility], [address] [place] [address] 31582 Chloride Level February 26, 2020 10:02am 107 mmol/l 99-109 [facility], [address] [place] [address] 11477 Chloride Level February 20, 2020 8:35am 108 mmol/l 99-109 [facility], [address] [place] [address] 07376 Carbon Dioxide Level August 30 8:15pm 24 mmol/l 20-31 [facility], [address] [place] [address] 96531 Carbon Dioxide Level August 09, 2020 7:35pm 24 mmol/l 20-31 [facility], [address] [place] [address] 70794 Carbon Dioxide Level August 03, 2020 2:35pm 21 mmol/l 20-31 [facility], [address] [place] [address] 17583 Carbon Dioxide Level July 01 9:40pm 22 mmol/l 20-31 [facility], [address] [place] [address] 90462 Carbon Dioxide Level May 18, 2020 6:17am 25 mmol/l 20-31 [facility], [address] [place] [address] 73441 Carbon Dioxide Level March 25 8:11am 21 mmol/l 20-31 [facility], [address] [place] [address] 32758 Carbon Dioxide Level March 11, 2020 12:14pm 20 mmol/l 20-31 [facility], [address] [place] [address] 67375 Carbon Dioxide Level March 02, 2020 11:00am 20 mmol/l 20-31 [facility], [address] [place] [address] 10151 Carbon Dioxide Level February 26, 2020 10:02a m 22 mmol/l 20-31 [facility], [address] [place] [address] 72323 Carbon Dioxide Level February 20, 2020 8:35a m 21 mmol/l 20-31 [facility], [address] [place] [address] 77770 Anion Gap August 30, 2020 8:15pm 12 mmol/l 8-16 [facility], [address] [place] [address] 15515 Anion Gap August 09, 2020 7:35pm 10 mmol/l 8-16 [facility], [address] [place] [address] 06062 Anion Gap August 03, 2020 2:35pm 12 mmol/l 8-16 [facility], [address] [place] [address] 32400 Anion Gap July 01, 2020 9:40pm 13 mmol/l 8-16 [facility], [address] [place] [address] 57858 Anion Gap May 18, 2020 6:17am 9 mmol/l 8-16 [facility], [address] [place] [address] 58242 Anion Gap March 25, 2020 8:11am 9 mmol/l 8-16 [facility], [address] [place] [address] 55504 Anion Gap March 11, 2020 12:14pm 13 mmol/l 8-16 [facility], [address] [place] [address] 79491 Anion Gap March 02, 2020 11:00am 12 mmol/l 8-16 [facility], [address] [place] [address] 57990 Anion Gap February 26, 2020 10:02am 13 mmol/l 8-16 [facility], [address] [place] [address] 52572 Anion Gap February 20, 2020 8:35am 13 mmol/l 8-16 [facility], [address] [place] [address] 51029 Glucose Level August 30, 2020 8:15pm 90 mg/dL 74-106 [facility], [address] [place] [address] 96040 Glucose Level August 09, 2020 7:35pm 89 mg/dL 74-106 [facility], [address] [place] [address] 85254 Glucose Level August 03, 2020 2:35pm 87 mg/dL 74-106 [facility], [address] [place] [address] 61586 Glucose Level July 01, 2020 9:40pm 100 mg/dL 74-106 [facility], [address] [place] [address] 64589 Glucose Level May 18, 2020 6:17am 93 mg/dL 74-106 [facility], [address] [place] [address] 22977 Glucose Level March 25, 2020 8:11am 93 mg/dL 74-106 [facility], [address] [place] [address] 61528 Glucose Level March 11, 2020 12:14pm 88 mg/dL 74-106 [facility], [address] [place] [address] 63028 Glucose Level March 02, 2020 11:00am 91 mg/dL 74-106 [facility], [address] [place] [address] 21831 Glucose Level February 26, 2020 10:02am 92 mg/dL 74-106 [facility], [address] [place] [address] 73389 Glucose Level February 20, 2020 8:35am 98 mg/dL 74-106 [facility], [address] [place] [address] 65148 Creatinine August 30, 2020 8:15pm 1.1 mg/dL 0.5-1.1 [facility], [address] [place] [address] 34547 Creatinine August 09, 2020 7:35pm 1.3 mg/dL 0.5-1.1 [facility], [address] [place] [address] 43595 Creatinine August 03, 2020 2:35pm 0.8 mg/dL 0.5-1.1 [facility], [address] [place] [address] 70686 Creatinine July 01, 2020 9:40pm 0.9 mg/dL 0.5-1.1 [facility], [address] [place] [address] 92611 Creatinine May 18, 2020 6:17am 0.7 mg/dL 0.5-1.1 [facility], [address] [place] [address] 22430 Creatinine March 25, 2020 8:11am 0.9 mg/dL 0.5-1.1 [facility], [address] [place] [address] Creatinine March 11, 2020 12:14pm 1.2 mg/dL 0.5-1.1 [facility], [address] [place] [address] Creatinine March 02, 2020 11:00am 1.0 mg/dL 0.5-1.1 [facility], [address] [place] [address] Creatinine February 26, 2020 10:02am 1.0 mg/dL 0.5-1.1 [facility], [address] [place] [address] Creatinine February 20, 2020 8:35am 1.1 mg/dL 0.5-1.1 [facility], [address] [place] [address] Glomerular Filtration Rate Calc Lukas krystina 2020 8:15pm 60 ml/min ABOVE 60 [facility], [address] [place] [address] 09119 Glomerular Filtration Rate Calc Dece [email or web address] 7:35pm 50 ml/min ABOVE 60 [facility], [address] [place] [address] 53603 Glomerular Filtration Rate Calc Dece mb2019 2:35pm Greater than 60 ml/min ABOVE 60 [facility], [address] [place] [address] 95730 Glomerular Filtration Rate Calc Nove mb2019 9:40pm Greater than 60 ml/min ABOVE 60 [facility], [address] [place] [address] 66319 Glomerular Filtration Rate Calc Sept emb2019 6:17am Greater than 60 ml/min ABOVE 60 [facility], [address] [place] [address] 06139 Glomerular Filtration Rate Calc Augu 2019 8:11am Greater than 60 ml/min ABOVE 60 [facility], [address] [place] [address] Glomerular Filtration Rate Calc March 11, 2020 12:14pm 55 ml/min ABOVE 60 [facility], [address] [place] [address] Glomerular Filtration Rate Calc March 02, 2020 11:00am Greater than 60 ml/min ABOVE 60 [facility], [address] [place] [address] Glomerular Filtration Rate Calc February 26, 2020 10:02am Greater than 60 ml/min ABOVE 60 [facility], [address] [place] [address] [id number] Glomerular Filtration Rate Calc February 20, 2020 8:35am Greater than 60 ml/min ABOVE 60 [facility], [address] [place] [address] [id number] Alanine Aminotransferase (ALT/SGPT) August 09, 2020 7:35pm 30 U/L 10-49 [facility], [address] [place] [address] Alanine Aminotransferase (ALT/SGPT) August 03, 2020 2:35pm 42 U/L 10-49 [facility], [address] [place] [address] [id number] Alanine Aminotransferase (ALT/SGPT) July 01, 2020 9:40pm 43 U/L 10-49 [facility], [address] [place] [address] [id number] Alanine Aminotransferase (ALT/SGPT) May 18, 2020 6:17am 52 U/L 10-49 [facility], [address] [place] [address] [id number] Alanine Aminotransferase (ALT/SGPT) March 25, 2020 8:11am 27 U/L 10-49 [facility], [address] [place] [address] [id number] Alanine Aminotransferase (ALT/SGPT) March 11, 2020 12:14pm 29 U/L 10-49 [facility], [address] [place] [address] [id number] Alanine Aminotransferase (ALT/SGPT) March 02, 2020 11:00am 29 U/L 10-49 [facility], [address] [place] [address] [id number] Alanine Aminotransferase (ALT/SGPT) February 26, 2020 10:02am 33 U/L 10-49 [facility], [address] [place] [address] [id number] Alanine Aminotransferase (ALT/SGPT) February 20, 2020 8:35am 42 U/L 10-49 [facility], [address] [place] [address] [id number] Aspartate Amino Transf (AST/SGOT) De cember 2019 7:35pm 13 U/L 0-33 [facility], [address] [place] [address] [id number] Aspartate Amino Transf (AST/SGOT) De cember 2019 2:35pm 35 U/L 0-33 [facility], [address] [place] [address] [id number] Aspartate Amino Transf (AST/SGOT) No vember 2019 9:40pm 21 U/L 0-33 [facility], [address] [place] [address] [id number] Aspartate Amino Transf (AST/SGOT) Se ptember 2019 6:17am 27 U/L 0-33 [facility], [address] [place] [address] [id number] Aspartate Amino Transf (AST/SGOT) Au kem 2019 8:11am 15 U/L 0-33 [facility], [address] [place] [address] [id number] Aspartate Amino Transf (AST/SGOT) Ju ly 2019 12:14pm 17 U/L 0-33 [facility], [address] [place] [address] [id number] Aspartate Amino Transf (AST/SGOT) Ju ly 2019 11:00am 14 U/L 0-33 [facility], [address] [place] [address] [id number] Aspartate Amino Transf (AST/SGOT) Ju ly 2019 10:02am 17 U/L 0-33 [facility], [address] [place] [address] [id number] Aspartate Amino Transf (AST/SGOT) Ju ne 2019 8:35am 23 U/L 0-33 [facility], [address] [place] [address] [id number] Alkaline Phosphatase August 09, 2020 7:35pm 122 U/L 45-129 [facility], [address] [place] [address] 50939 Alkaline Phosphatase August 03, 2020 2:35pm 125 U/L 45-129 [facility], [address] [place] [address] 58366 Alkaline Phosphatase July 01 9:40pm 139 U/L 45-129 [facility], [address] [place] [address] 06577 Alkaline Phosphatase May 18, 2020 6:17am 110 U/L 45-129 [facility], [address] [place] [address] 14644 Alkaline Phosphatase March 25 0 8:11am 122 U/L 45-129 [facility], [address] [place] [address] 18063 Alkaline Phosphatase March 11, 2020 12:14pm 129 U/L 45-129 [facility], [address] [place] [address] 12574 Alkaline Phosphatase March 02, 2020 11:00am 136 U/L 45-129 [facility], [address] [place] [address] Alkaline Phosphatase February 26, 2020 10:02a m 147 U/L 45-129 [facility], [address] [place] [address] 52124 Alkaline Phosphatase February 20, 2020 8:35a m 149 U/L 45-129 [facility], [address] [place] [address] 66933 Amylase Level August 09, 2020 7:35pm 39 U/L 30-118 [facility], [address] [place] [address] 16113 Amylase Level August 03, 2020 2:35pm 31 U/L 30-118 [facility], [address] [place] [address] 31539 Amylase Level May 17, 2020 7:20pm 39 U/L 30-118 [facility], [address] [place] [address] 59216 Amylase Level March 25, 2020 8:11am 35 U/L 30-118 [facility], [address] [place] [address] 81404 Lipase August 09, 2020 7:35pm 90 U/L 73-393 [facility], [address] [place] [address] 25003 Lipase August 03, 2020 2:35pm 68 U/L 73-393 [facility], [address] [place] [address] 80636 Lipase May 17, 2020 7:20pm 89 U/L 73-393 [facility], [address] [place] [address] 75695 Lipase March 25, 2020 8:11am 97 U/L 73-393 [facility], [address] [place] [address] 29994 Lipase March 11, 2020 12:14pm 128 U/L 73-393 [facility], [address] [place] [address] 40836 Calcium Level August 30, 2020 8:15pm 9.6 mg/dL 8.5-10.1 [facility], [address] [place] [address] 81493 Calcium Level August 09, 2020 7:35pm 9.5 mg/dL 8.5-10.1 [facility], [address] [place] [address] 95012 Calcium Level August 03, 2020 2:35pm 9.1 mg/dL 8.5-10.1 [facility], [address] [place] [address] 21448 Calcium Level July 01, 2020 9:40pm 9.2 mg/dL 8.5-10.1 [facility], [address] [place] [address] 27832 Calcium Level May 18, 2020 6:17am 8.5 mg/dL 8.5-10.1 Delta: 9.6 on 05/17/20Repeated by: Roderick Cee 05/18/20 0824.Result Confirmation: 8.3 # mg/dL [facility], [address] [place] [address] 09927 Calcium Level March 25, 2020 8:11am 8.9 mg/dL 8.5-10.1 [facility], [address] [place] [address] 48554 Calcium Level March 11, 2020 12:14pm 8.6 mg/dL 8.5-10.1 [facility], [address] [place] [address] 88586 Calcium Level March 02, 2020 11:00am 9.0 mg/dL 8.5-10.1 [facility], [address] [place] [address] 58529 Calcium Level February 26, 2020 10:02am 9.0 mg/dL 8.5-10.1 [facility], [address] [place] [address] 40148 Calcium Level February 20, 2020 8:35am 9.4 mg/dL 8.5-10.1 [facility], [address] [place] [address] 65627 Total Bilirubin August 09, 2020 7:35pm 0.3 mg/dL 0.3-1.2 [facility], [address] [place] [address] 51320 Total Bilirubin August 03, 2020 2:35pm 0.4 mg/dL 0.3-1.2 [facility], [address] [place] [address] 23474 Total Bilirubin July 01, 2020 9:40pm 0.3 mg/dL 0.3-1.2 [facility], [address] [place] [address] 29865 Total Bilirubin May 18, 2020 6:17a m 0.3 mg/dL 0.3-1.2 [facility], [address] [place] [address] 64032 Total Bilirubin March 25, 2020 8:11am 0.2 mg/dL 0.3-1.2 [facility], [address] [place] [address] 53673 Total Bilirubin March 11, 2020 12:14pm 0.2 mg/dL 0.3-1.2 [facility], [address] [place], [place] [id number] Total Bilirubin March 02, 2020 11:00am 0.4 mg/dL 0.3-1.2 [facility], [address] [place] [address] Total Bilirubin February 26, 2020 10:02am 0.3 mg/dL 0.3-1.2 [facility], [address] [place] [address] Total Bilirubin February 20, 2020 8:35am 0.3 mg/dL 0.3-1.2 [facility], [address] [place], [place] [id number] Albumin August 09, 2020 7:35pm 3.6 g/dL 3.2-4.8 [facility], [address] [place], [place] [id number] Albumin August 03, 2020 2:35pm 3.5 g/dL 3.2-4.8 [facility], [address] [place], [place] [id number] Albumin July 01, 2020 9:40pm 3.5 g/dL 3.2-4.8 [facility], [address] [place], [place] [id number] Albumin May 18, 2020 6:17am 3.0 g/dL 3.2-4.8 [facility], [address] [place], [place] [id number] Albumin March 25, 2020 8:11am 3.0 g/dL 3.2-4.8 [facility], [address] [place] [address] 54380 Albumin March 11, 2020 12:14pm 3.2 g/dL 3.2-4.8 [facility], [address] [place] [address] Albumin March 02, 2020 11:00am 3.1 g/dL 3.2-4.8 [facility], [address] [place] [address] 14092 Albumin February 26, 2020 10:02am 3.4 g/dL 3.2-4.8 [facility], [address] [place] [address] Albumin February 20, 2020 8:35am 3.5 g/dL 3.2-4.8 [facility], [address] [place] [address] 80159 Serum Total Protein August 09, 7:35pm 8.2 g/dL 5.7-8.2 [facility], [address] [place] [address] 52609 Serum Total Protein August 03 2:35pm 8.1 g/dL 5.7-8.2 [facility], [address] [place] [address] 64394 Serum Total Protein July 01 9:40pm 8.0 g/dL 5.7-8.2 [facility], [address] [place] [address] 97941 Serum Total Protein May 18, 2020 6:17am 6.6 g/dL 5.7-8.2 [facility], [address] [place] [address] Serum Total Protein March 25, 2020 8:11a m 7.7 g/dL 5.7-8.2 [facility], [address] [place] [address] Serum Total Protein March 11, 2020 12:14p m 7.6 g/dL 5.7-8.2 [facility], [address] [place] [address] 81081 Serum Total Protein March 02, 2020 11:00a m 7.9 g/dL 5.7-8.2 [facility], [address] [place] [address] Serum Total Protein February 26, 2020 10:02am 7.6 g/dL 5.7-8.2 [facility], [address] [place] [address] 91223 Serum Total Protein February 20, 2020 8:35am 7.9 g/dL 5.7-8.2 [facility], [address] [place] [address] 42054 Lactic Acid Level July 01, 2020 9:40p m 1.0 mmol/L 0.5-2.2 [facility], [address] [place] [address] 76282 Human Chorionic Gonadotropin, Quant August 09, 2020 7:35pm 74322 mIU/mL 0-10 APPROXIMATE GESTATION AGE APRROX IMATE HCG RANGE 0-1 WEEK 0 - 50 1-2 WEEKS 40 - 300 2-3 WEEKS 100 - 1,000 3-4 WEEKS 500 - 6,000 1-2 MONTHS 5,000 - 200,000 2-3 MONTHS 10,000 - 100,000 2ND TRIMESTER 3,000 - 50,000 3RD TRIMESTER 1,000 - 50,000 [facility], [address] [place] [address] 65315 Human Chorionic Gonadotropin, Quant August 14, 2020 9:31am 15102 mIU/mL 0-10 APPROXIMATE GESTATION AGE APRROX IMATE HCG RANGE 0-1 WEEK 0 - 50 1-2 WEEKS 40 - 300 2-3 WEEKS 100 - 1,000 3-4 WEEKS 500 - 6,000 1-2 MONTHS 5,000 - 200,000 2-3 MONTHS 10,000 - 100,000 2ND TRIMESTER 3,000 - 50,000 3RD TRIMESTER 1,000 - 50,000 [facility], [address] [place] [address] 77714 Human Chorionic Gonadotropin, Quant August 03, 2020 2:35pm 69060 mIU/mL 0-10 APPROXIMATE GESTATION AGE APRROX IMATE HCG RANGE 0-1 WEEK 0 - 50 1-2 WEEKS 40 - 300 2-3 WEEKS 100 - 1,000 3-4 WEEKS 500 - 6,000 1-2 MONTHS 5,000 - 200,000 2-3 MONTHS 10,000 - 100,000 2ND TRIMESTER 3,000 - 50,000 3RD TRIMESTER 1,000 - 50,000 [facility], [address] [place] [address] 91764 Human Chorionic Gonadotropin, Quant July 01, 2020 10:10am Less than 1 mIU/mL 0-1 0 APPROXIMATE GESTATION AGE APRROX IMATE HCG RANGE 0-1 WEEK 0 - 50 1-2 WEEKS 40 - 300 2-3 WEEKS 100 - 1,000 3-4 WEEKS 500 - 6,000 1-2 MONTHS 5,000 - 200,000 2-3 MONTHS 10,000 - 100,000 2ND TRIMESTER 3,000 - 50,000 3RD TRIMESTER 1,000 - 50,000 [facility], [address] [place] [address] 76874 Thyroid Stimulating Hormone (TSH) Ju ly 2019 10:02am 1.84 uIU/mL 0.35-5.50 [facility], [address] [place] [address] 95658 Serum Test, Qualitative De cember 2019 2:35pm Positive NEGATIVE [facility], [address] [place] [address] 67691 Serum Test, Qualitative No vember 2019 9:40pm Negative NEGATIVE [facility], [address] [place] [address] 24547 Serum Test, Qualitative Se ptember 2019 7:20pm Negative NEGATIVE [facility], [address] [place] [address] 81900 Serum Test, Qualitative Au kem 2019 8:11am Negative NEGATIVE [facility], [address] [place] [address] 80618 Urine HCG, Qualitative March 11 11:00am Negative NEGATIVE [facility], [address] [place] [address] 92858 Urine HCG, Qualitative March 02 11:00am Negative NEGATIVE [facility], [address] [place] [address] 30126 Urine HCG, Qualitative February 19 8:32am Negative NEGATIVE [facility], [address] [place] [address] Coronavirus (COVID-19)(PCR) March 252019 2:30pm Not detected Not Detec dee This test was developed and its performa nce characteristicsdetermined by [employer]. This test has not beenFDA cleared or approved. This test has been [facility] under an Emergency Use Authorization (EUA). This [...] detected) result in this assay.Performed at: - [address] [id number] Director: Deisy Hdez MD, Phone: [phone] [facility] , [address] [facility] [address] Urine Random Creatinine February 27 7:19am 234.0 mg/dL THERE IS NO ESTABLISHED RANGE FOR RANDOM URINE CREATININE [address] [address] Urine Microalbumin February 28, 2020 7:19am 13.7 mg/L 0.0-29.[address] [place] [address] Urine Microalbumin/Creatinine Ratio February 28, 2020 7:19am 5.8 ug/mg 0.0-30.0 [facility], [address] [place] [address] Hemoglobin A1c February 26, 2020 10:02am 5.3 [...] glucose control. * High risk of developing custodial complications such asretinopathy, nephropathy, neuropathy, cardiopathy, etc. Some danger of hypoglycemic reaction in Type I diabetics.Some glucose intolerant individuals and "Sub Clinical"diabetics may demonstrate HGBA1C levels in this area. [facility], [address] [place] [address] Estimated Average Glucose (eAG) February 26, 2020 10:02am 105 mg/dl An A1C of 7% - the goal of diabetic therapy - is equivalentto an EAG of 154 mg/dl. [facility], [address] [place] [address] Microbiology Results Procedure Source Result Collection Date/Time Result Date/Time Result Comment Performing Site Urine Culture Urine,voided August 30, 2020 8:15pm August 2:09pm [facility], [address] [place] [address] 07398 Urine Culture Urine,voided August 09, 2020 8:06pm August 11, 2020 7:16am [facility], [address] [place] [address] 17873 Urine Culture Urine,clean catch August 03, 2020 2:50pm August 04, 2020 11:45am [facility], [address] [place] [address] 74041 Urine Culture Urine,voided July 01, 2020 9:30pm June 232019 7:24am [facility], [address] [place] [address] 06445 Urine Culture Urine,voided May 18, 2020 1:15am Septembe 2019 11:25am [facility], [address] [place] [address] 34518 Urine Culture Urine,clean catch March 25, 2020 9:05am March 26, 2020 1:36pm [facility], [address] [place] [address] 79803 Urine Culture Urine,clean catch March 11, 2020 12:00pm March 12, 020 1:24pm [facility], [address] [place] [address] 97364 Urine Culture Urine,voided March 05, 2020 3:29pm March 06, 20 9:18am [facility], [address] [place] [address] 71519 Urine Culture Urine,voided March 02, 2020 11:48am March 03, 2 020 8:26am [facility], [address] [place] [address] 68365 Streptococcus Rapid Screen Throat March 13, 2020 10:34am March 14, 2 020 8:58am [facility], [address] [place] [address] 01106 Streptococcus Rapid Screen Throat March 13, 2020 10:34am March 13, 020 11:04am [facility], [address] [place] [address] 89331 Blood Culture Venous blood No growth. July 01, 2020 9:40pm June 232019 9:46pm [facility], [address] [place] [address] 88083 SARS-CoV-2 (PCR) Interpretation Naso pharyngeal No Organisms Detected July 01, 2020 9:45pm July 01, 2020 10:29pm [facility], [address] [place] [address] 25107 Nasal BinaxNow Covid - 19 Ag Negative July 30, 2020 9:45am July 302019 11:56am [facility], [address] [place] [address] 18513 Influenza-Like Illness (PCR) Nasopharyngea l No Organisms Detected August 22, 2020 6:22am August 22, 2020 7:41am [facility], [address] [place] [address] 87778 Nasopharyngeal August 22, 2020 6:22am August 22, 2020 7:41am [facility], [address] [place] [address] 27302 Gastrointestinal Tract Panel (PCR) Stool C. difficile toxin detected May 17, 2020 3:03pm May 17, 2020 5:25pm [facility], [address] [place] [address] 95499 Respiratory Panel (PCR) Nasopharyngeal No Organisms Detected May 18, 2020 1:40am May 18, 2020 2:49am [facility], [address] [place] [address] 49288 Diagnostic Imaging Reports Report Dictated Date/Time Dictated By Status Radiology Report February 28, 2020 9:48am Oliverio Chen MD completed [facility] [address] [place] [address] [phone] NAME SEX PT STATUS ACCOUNT NUMBER ANNA MARIE [facility] REF [id number] ORDERING PHYSICIAN LOCATION MEDICAL RECORD NO. Jose Kramer DO [id number] ATTENDING PHYSICIAN DATE OF DATE OF EXAM/TIME [...] 0948 Signed By Oliverio Chen MD on 02/28/20951 Date Time CC: Jose Kramer DO; Oliverio Chen MD Techn: BUSMI Trans Dt/Tm: Trans by: DT Prt Dt/Tm: : Total DLP = 0.00 mGy-cm : Total Radiation Dose = 0.0000 mSv Lifetime Dose: 0 mSv Radiology Report March 02, 2020 1:53pm Warren Bourne MD completed [place] [id number] [phone] NAME SEX PT STATUS ACCOUNT NUMBER ANNA MARIE [facility]TRAN [facility] [id number] ORDERING PHYSICIAN LOCATION MEDICAL RECORD NO. Sameer Islas MD ER [id number] ATTENDING PHYSICIAN DATE OF DATE OF EXAM/TIME [...] 12, 2020 2:59pm Oliverio Chen MD completed [place] [id number] [place] [address] [phone] NAME SEX PT STATUS ACCOUNT NUMBER ANNA MAR[facility] REF [id number] ORDERING PHYSICIAN LOCATION MEDICAL RECORD NO. Pola Meadows MD [id number] ATTENDING PHYSICIAN DATE OF DATE OF EXAM/TIME Jose Kramer DO 1995 03/12/20 / 1321 TYPE / EXAM US Pelvic complete REASON [...] 25, 2020 10:18am Oliverio Chen MD completed [facility] [address] [place] [address] [phone] NAME SEX PT STATUS ACCOUNT NUMBER ANNA MARIE [facility]TRAN [facility] [id number] ORDERING PHYSICIAN LOCATION MEDICAL RECORD NO. Hiren Perez MD ER [id number] ATTENDING PHYSICIAN DATE OF DATE OF EXAM/TIME [...] May 17 9:41pm Ulisses Sethi MD completed [facility] [address] [place] [address] [phone] NAME SEX PT STATUS ACCOUNT NUMBER ANNA MARIE [facility] [id number] ORDERING PHYSICIAN LOCATION MEDICAL RECORD NO. Mikhail Sheriff MD ER [id number] ATTENDING PHYSICIAN DATE OF DATE OF EXAM/TIME [...] 01, 2020 10:55p m Telly Robledo MD [place] [address] [place] [address] [phone] NAME SEX PT STATUS ACCOUNT NUMBER ANNA MARIE [facility] [id number] ORDERING PHYSICIAN LOCATION MEDICAL RECORD NO. Mikhail Sheriff MD ER [id number] ATTENDING PHYSICIAN DATE OF DATE OF EXAM/TIME [...] Trans Dt/Tm: Trans by: DT Prt Dt/Tm: [id number]: Total DLP = 0.00 mGy-cm Fluoroscopy Time (in secs): Radiology Report July 01, 2020 11:07p m Niels Wilkerson MD [place] [id number] [place] [address]1967 [phone] NAME SEX PT STATUS ACCOUNT NUMBER ANNA MARIE BELTRAN [facility] ER [id number] ORDERING PHYSICIAN LOCATION MEDICAL RECORD NO. Mikhail Sheriff MD ER [id number] ATTENDING PHYSICIAN DATE OF DATE OF EXAM/TIME [...] Trans Dt/Tm: Trans by: DT Prt Dt/Tm: [id number]: Total DLP = 1469.00 mGy-cm 4418-1135: Total Radiation Dose = 22.0350 mSv Lifetime Dose: 56.7900 mS v Radiology Report August 03, 2020 7:33p m Gibran Villa MD completed [facility] [address] [facility] [place] [address] [phone] NAME SEX PT STATUS ACCOUNT NUMBER ANNA MARIE BELTRAN [facility] ER [id number] ORDERING PHYSICIAN LOCATION MEDICAL RECORD NO. Daljit Alex MD ER [id number] ATTENDING PHYSICIAN DATE OF DATE OF EXAM/TIME [...] MD Techn: WON Trans Dt/Tm: Trans by: LUPIS Prt Dt/Tm: [id number]: Total DLP = 0.00 mGy-cm : Total Radiation Dose = 0.0000 mSv Lifetime Dose: 56.7900 mSv Radiology Report August 03, 2020 7:59p m Telly Robledo MD completed [place] [address] [place] [address] [phone] NAME SEX PT STATUS ACCOUNT NUMBER ANNA MARIE BELTRAN [facility] ER [id number] ORDERING PHYSICIAN LOCATION MEDICAL RECORD NO. Daljit Alex MD ER [id number] ATTENDING PHYSICIAN DATE OF DATE OF EXAM/TIME [...] Robledo MD on 08/03/201958 Signed By Telly Robldeo MD on 08/03/201958 Date Time CC: Nicol Sebastian; Telly Robledo MD Techn: FREST Trans Dt/Tm: Trans by: DT Prt Dt/Tm: : Total DLP = 0.00 mGy-cm : Total Radiation Dose = 0.0000 mSv Lifetime Dose: 56.7900 mSv Radiology Report August 03, 2020 7:34p m Gibran Villa MD completed [place] [address] [place] [address] [phone] NAME SEX PT STATUS ACCOUNT NUMBER ANNA MARIE BELTRAN [facility] ER [id number] ORDERING PHYSICIAN LOCATION MEDICAL RECORD NO. Daljit Alex MD ER [id number] ATTENDING PHYSICIAN DATE OF DATE OF EXAM/TIME Nicol Sebastian HOTEL ATTENDANT 1995 08/03/201858 TYPE / EXAM US OB Ultrasound <14 weeks REASON FOR EXAM RLQ PAIN; R/O ECTOPIC [facility] [address] [place] [address] [phone] NAME SEX PT STATUS ACCOUNT NUMBER ANNA MARIE BELTRAN [facility] ER [id number] ORDERING PHYSICIAN LOCATION MEDICAL RECORD NO. Daljit Alex MD ER [id number] ATTENDING PHYSICIAN DATE OF DATE OF EXAM/TIME Nicol Sebastian HOTEL ATTENDANT 1995 08/03/201857 TYPE / EXAM US OB [...] 2020 9:02p m Telly Robledo MD completed [facility] [address] [place] [address] [phone] NAME SEX PT STATUS ACCOUNT NUMBER ANNA MARIE [facility]TRAN [facility] ER [id number] ORDERING PHYSICIAN LOCATION MEDICAL RECORD NO. Mikhail Sheriff MD ER [id number] ATTENDING PHYSICIAN DATE OF DATE OF EXAM/TIME Nicol Sebastian NP 1995 08/09/202038 TYPE / EXAM US OB Ultrasound <14 weeks REASON FOR EXAM Gen abd pain. +HCG ANNA MARIE BELTRAN [id number] 1995 ADDENDUM Clinical History/Indication for Exam: Gen [...] Trans Dt/Tm: Trans by: DT Prt Dt/Tm: [id number]: Total DLP = 0.00 mGy-cm 8823-9369: Total Radiation Dose = 0.0000 mSv Lifetime Dose: 56.7900 mSv Radiology Report August 14, 2020 11:09am Oliverio Chen MD completed [place] [address] [place] [address] [phone] NAME SEX PT STATUS ACCOUNT NUMBER ANNA MARIE [facility]TRAN [facility] REF [id number] ORDERING PHYSICIAN LOCATION MEDICAL RECORD NO. Jarret Herbert MD [id number] ATTENDING PHYSICIAN DATE OF DATE OF EXAM/TIME Nicol Sebastian NP 1995 08/14/20915 TYPE / EXAM US OB Ultrasound <14 weeks REASON FOR EXAM FOLLOW UP SUBCHOR/ EARLY COMPARISON: August 19, 2020 and 2019 FINDINGS: Gestation: Single Thibodaux-rump length: Singlemm compatible with a Single week Single day gestational age. Yolk sac: Not seen No heart rate detected. Uterus: 8.5 x 4.6 x 7.0cm. A subchorionic hemorrhage is still seen. Average ultrasound age of 5 weeks 6 days. EDC: April 10, 2021. Thibodaux-rump length: 3.4mm IMPRESSION: 1. Gestational sac measurements, unchanged. 2. Subarachnoid hemorrhage is still seen. 3. Linear intraamniotic echogenicity, possibly the pole. No heart rate detected. Reported By Oliverio Chen MD on 08/14/20 1109 Signed By Oliverio Chen MD on 08/14/20 1114 Date Time CC: Nicol Sebastian; Oliverio Chen MD Techn: FREST Trans Dt/Tm: Trans by: DT Prt Dt/Tm: 8499-9582: Total DLP = 0.00 mGy-cm 2139-8057: Total Radiation Dose = 0.0000 mSv Lifetime Dose: 56.7900 mSv Radiology Report August 09, 2020 9:05p m Telly Robledo MD completed [address] [id number] [phone] NAME SEX PT STATUS ACCOUNT NUMBER ANNA MARIE BEL[facility] ER [id number] ORDERING PHYSICIAN LOCATION MEDICAL RECORD NO. Mikhail Sheriff MD ER [id number] ATTENDING PHYSICIAN DATE OF DATE OF EXAM/TIME Nicol Sebastian NP 1995 08/09/202039 TYPE / EXAM US OB Transvaginal REASON FOR EXAM PAIN [address] [address] [phone] NAME SEX PT STATUS ACCOUNT NUMBER ANNA MARIE BELTRAN [facility] ER [id number] ORDERING PHYSICIAN LOCATION MEDICAL RECORD NO. Mikhail Sheriff MD ER [id number] ATTENDING PHYSICIAN DATE OF DATE OF EXAM/TIME Nicol Sebastian NP 1994 08/09/202038 TYPE / EXAM US OB Ultrasound <14 weeks REASON FOR EXAM Gen abd pain. +HCG ANNA MARIE BELTRAN [id number] 1995 ADDENDUM Clinical History/Indication for Exam: Gen [...] Trans Dt/Tm: Trans by: DT Prt Dt/Tm: 7239-4531: Total DLP = 0.00 mGy-cm 9676-2796: Total Radiation Dose = 0.0000 mSv Lifetime Dose: 56.7900 mSv Reported By Telly Robledo MD on 08/09/202104 Signed By Telly Robledo MD on 08/14/201244 Date Time CC: Nicol Sebastian; Telly Robledo MD Techn: CARAI Trans Dt/Tm: Trans by: DT Prt Dt/Tm: 1320-9375: Total DLP = 0.00 mGy-cm 1615-5196: Total Radiation Dose = 0.0000 mSv Lifetime Dose: 56.7900 mSv Radiology Report August 21, 2020 10:47am Oliverio Chen MD completed [id number] [place] [address] [phone] NAME SEX PT STATUS ACCOUNT NUMBER ANNA MARIE BELTRAN [facility] REF [id number] ORDERING PHYSICIAN LOCATION MEDICAL RECORD NO. Jarret Herbert MD [id number] ATTENDING PHYSICIAN DATE OF DATE OF EXAM/TIME Nicol Sebastian NP 1994 08/21/20 / 7 TYPE / EXAM US OB Transvaginal REASON FOR EXAM EVAL FOR IUP COMPARISON: August 14, 2020. FINDINGS: Gestation: Single [place]-rump length: No pole seen. Gestational sac: 13.4 [...] Trans Dt/Tm: Trans by: DT Prt Dt/Tm: 9345-4517: Total DLP = 0.00 mGy-cm 6330-3404: Total Radiation Dose = 0.0000 mSv Lifetime Dose: 56.7900 mSv Radiology Report August 21, 2020 10:47am Oliverio Chen MD completed [address] [place] [address] [phone] NAME SEX PT STATUS ACCOUNT NUMBER ANNA MARIE BELTRAN [facility] REF [id number] ORDERING PHYSICIAN LOCATION MEDICAL RECORD NO. Jarret Herbert MD [id number] ATTENDING PHYSICIAN DATE OF DATE OF EXAM/TIME Nicol Sebastian NP 1994 08/21/20 / 7 TYPE / EXAM US OB Ultrasound <14 weeks REASON FOR EXAM Re-evaluation for subchor. COMPARISON: August 14, 2020. FINDINGS: Gestation: Single [place]-rump length: No pole seen. Gestational sac: 13.4 [...] week 4 day gestational age. Reported By Oliveiro Chen MD on 08/21/20 1047 Signed By Oliverio Chen MD on 08/21/20 1053 Date Time CC: Nicol Sebastian; Oliverio Chen MD Techn: PAU Ocampo Dt/Tm: Trans by: DT Prt Dt/Tm: 4745-0469: Total DLP = 0.00 mGy-cm 3171-7302: Total Radiation Dose = 0.0000 mSv Lifetime Dose: 56.7900 mSv Health Concerns Health Concerns may be documented in an alternate section. Advance Directives Advance Directive Response Recorded Date/Time Advanced Directive No Tee lynne 2020 9:57am MOLST No September 02 9:57am Advance Directives on File or in chart? No September 02, 2020 9:57am Does Patient have a DNR? 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 MACHINE OPERATOR Initial Visit Hernia BUN MACHINE OPERATOR SUBCHORIONIC BLEED O02.1/SUCTION D+C 70492 BUN MACHINE OPERATOR Post op care ABDOMINAL PAIN Telemed Visit BUN MACHINE OPERATOR Office Visit Reason for Visit Anxiety Depression GERD [...] rival/Admit Date Discharge/Depart Date Provider(s) Registered Referred [facility] February 20, 2020 8:12am Bianka Sen MD Departed Physician/Provider Office Visit [facility] February 20, 2020 10:22am February 20, 2020 11:42am Ces[facility]calf [facility], [facility] 9:54am Jose Kramer DO Registered Referred [facility] February 28, 2020 6:57am Jose Kramer DO Departed Emergency [facility] March 02, 2020 10:34am March 02, 2020 1:45pm null Departed Emergency [facility] March 05, 2020 2:01pm March 05, 2020 4:29pm null Departed Physician/Provider Office Visit [facility] March 11, 2020 9:28am March 11, 2020 10:13am Trice dimas NP Departed Physician/Provider Office Visit [facility] March 11, 2020 10:17am March 11, 2020 11:49am Pola Meadows MD Registered Referred [facility] March 11, 2020 11:56am Trice Aj NP Registered Referred [facility] March 12, 2020 11:38am Pola Meadows MD Departed Physician/Provider Office Visit [facility] March 12, 2020 12:22pm March 12, 2020 2:13pm Trice holbrook NP Departed Emergency [facility] March 13, 2020 9:18am March 13, 2020 10:18am null Departed Emergency [facility] March 25, 2020 7:55am March 25, 2020 9:27am null Departed Physician/Provider Office Visit [facility] March 25, 2020 2:51pm March 25, 2020 2:52pm Nathalie valerio Registered Referred [facility] Drop Off March 25, 2020 3:08pm Nathalie Pace Departed Physician/Provider Office Visit [facility] March 28, 2020 7:01am March 28, 2020 7:47am Trice dimas NP Registered Outpatient [facility] April 05, 2020 8:29am Trice Aj NP Registered Referred [facility] May 17, 2020 1:48pm Trice Aj NP Discharged Inpatient [facility] May 18, 2020 12:18am Septemb 2019 2:40pm Tad Menendez MD Registered Outpatient [facility] May 20, 2020 2:25pm Amara Garcia RN Departed Physician/Provider Office Visit [facility] May 23, 2020 7:51am May 23, 2020 8:35am Trice Aj NP Departed Physician/Provider Office Visit [facility] May 30, 2020 9:25am May 30, 2020 11:56am Nicol rincon NP Departed Physician/Provider Office Visit [facility] June 10, 2020 8:26am June 10, 2020 8:58am Jarret Herbert MD Departed Physician/Provider Office Visit [facility] June 28, 2020 3:47pm June 28, 2020 4:33pm Nicol Sebastian NP Departed Physician/Provider Office Visit [facility] July 01, 2020 9:04am July 01, 2020 11:04am Nicol Sebastian NP Registered Referred [facility] July 01, 2020 9:47am Kiersten Schulz DO Departed Emergency [facility] July 01, 2020 8:40pm July 02, 2020 12:20am null Departed Physician/Provider Office Visit [facility] July 04, 2020 11:14am July 04, 2020 12:47pm Nicol Sebastian NP Departed Physician/Provider Office Visit [facility] July 25, 2020 9:54am July 25, 2020 10:57am Nicol Sebastian NP Registered Referred [facility] July 30, 2020 9:45am Jaki Elias MD Departed Emergency [facility] August 03, 2020 1:29pm August 03, 2020 8:21pm null Departed Emergency [facility] August 09, 2020 6:19pm August 10, 2020 5:45am null Registered Referred [facility] August 14, 2020 9:29am Jarret Herbert MD Departed Physician/Provider Office Visit [facility] August 14, 2020 9:41am August 14, 2020 11:45am Patrick Herbert MD Departed Physician/Provider Office Visit [facility] August 20, 2020 9:00am August 20, 2020 9:20am Barrett Sparks MD Departed Physician/Provider Office Visit [facility] August 21, 2020 10:25am August 21, 2020 11:32am Jarret Herbert MD Registered Referred [facility] August 21, 2020 11:17am Jarret Herbert MD Departed Surgical Day Care [facility] August 22, 2020 6:20am August 22, 2020 10:05am Patrick Herbert MD Departed Physician/Provider Office Visit [facility] August 27, 2020 10:07am August 27, 2020 10:41am Jarret Herbert MD Departed Emergency [facility] August 30, 2020 6:50pm August 30, 2020 9:08pm null Departed Physician/Provider Office Visit [facility] September 02, 2020 10:06am September 02, 2020 4:34pm Jose Kramer DO Departed Physician/Provider Office Visit [facility] September 03, 2020 9:28am September 03, 2020 11:05am Jarret Herbert MD Recent Diagnosis [...] Response Neil e Recorded Functional Status Complete [place] May 18, 2020 1:30am Goals Goals may be documented in an alternate section. Immunizations No Immunization Information Available Mental Status Observation Response Neil e Recorded Cognitive Status Normal Cognition May 18, 2020 1:30am Impairments No impairments or barriers September 02, 2020 9:57am Medical Equipment No Medical Equipment Information available Insurance Providers Guarantor ANNA MARIE BELTRAN Address [address] [place] [address] Contact Info. 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 Awaiting integrated specialist referral. Increase diet and exercise. Referral to [place] [facility] for chronic inflammation. Elevate legs. 26 [...] . July 26, 2020 for upper GI. [place] foods rice, applesauce, bananas, and toast. Resolved. [...] that she has had counseling [facility], but symptoms are worse at this time, d/t recent move to [place]. Will continue current meds and will refer to psych. 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 Taking [...] palpation without abnormal physical find ings. Doubt BUN MACHINE OPERATOR cause but send urine culture [...] Information Provider Address Jarret Herbert MD Email: [email or web address] Phone: [address] [place] [phone] c diff - treated with PO vancomycin Trice dimas NP Email: [email or web address] Phone: [facility] [address] [facility] [address] Call for an appointment to be seen in the next 48 hours Jose Kramer DO Email: [email or web address] Phone: [address] [facility] [phone] Call for an appointment for follow-up for Wednesday or Wednesday Jose Kramer DO Email: [email or web address] Phone: [phone] [facility] [address] R79.89 - Other specified abnormal findin gs of blood chemistry,N17.9 - Acute kidney failure, unspecified September 02, 2020 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 Diff (Clostridioides Difficile) Infection (DC) Nutrition Tips for Relief of Diarrhea (DC) Dilation and Curettage (DC) Social History Smoking Status Status Date of Observation Never smoker September 02, 2020 9:57 am Observation Status Date of Observation Patient currently August 232020 Observation Status Observation Response Neil e of Response Smoking Status Never smoker September 02, 2020 9:57am Substance Use No September 02, 2020 9:57am Assigned Sex Female Vital Signs Vital Reading [...] 12, 2020 2:07pm Respiratory rate 20 /min 12-March 12, 2020 2:07pm Oxygen saturation by Pulse [...] 30, 2020 7:14pm Respiratory rate 20 /min 12-24 August 30, 2020 7:14pm Oxygen saturation by Pulse oximetry 99 % 95- 100 August 30, 2020 7:14pm BP Systolic 149 mm[Hg] August 30, 2020 7:14pm BP Diastolic 84 mm[Hg] August 30, 2020 7:14pm
--- OUTSIDE RECORDS SUMMARY | 2020-10-18 09:45 | CCD | Continuity of Care Document ---
Author Author [facility] Address [address] [place] [address] Phone Support Name Relationship Address Phone Jose Kramer PRS [address] [place] [address] Polly Sen PRS [address] [place] [address] John Islas PRS [address] [place] [address] [place] [address] Pola Meadows [place] [address] Pola Meadows PRS [address] [place] [address] Hiren Perez PRS [address] [place] [address] Nathalie Pace PRS [address] [place] [address] Verónica Sheriff PRS [address] [place] [address] Tad Menendez PRS [address] [place] [address] Amara Garcia PRS Unknown Unavailable Nicol Sebastian PRS [address] [place] [address] Darnell Herbert PRS [address] [place] [address] Kiersten Schulz PRS [address] [place] [address] [place] [address] Daljit Alex PRS [address] [place] [address] Niels Valdez PRS [address] [place] [address] Lynn Jain PRS [address] [place] [address] Barrett Sparks PRS [address] [place] [address] Peraza, Dmitriy PRS [address] [place] [address] Allergies, Adverse Reactions, Alerts Allergen Type Severity [...] Metoprolol Succinate Discontinued 50 MG PO daily 90 February 20, 2020 11:34am May 28, 2020 [...] CE LLS PO Once Per Day 14 May 18, 2020 11:54am July 01, [...] 1 TAB PO daily February 22, 2020 10:18March 11, 2020 11:47am Venlafaxine Discontinued 150 MG [...] 2 PUFFS IH 2 Times Per Day 1 August 06, 2020 8:13am August 06, 2020 8:27am Budesonide-Formoterol Discontinued 2 PUFFS IH 2 Times Per Day 1 August 06, 2020 8:27am August 22, 2020 [...] July 01, 2020 completed SARS-CoV-2 (PCR) Interpretation Nove mber [address] Abd/pel w/ contrast [...] August 30, 2020 8:15pm 11.3 10e3/uL 4.45-10.71 [facility], [address] [place] [address] 12933 White Blood Count August 09 0 7:35pm 9.9 10e3/uL 4.45-10.71 [facility], [address] [place] [address] White Blood Count August 14 0 9:31am 9.8 10e3/uL 4.45-10.71 [facility], [address] [place] [address] White Blood Count August 03 0 2:35pm 8.6 10e3/uL 4.45-10.71 [facility], [address] [place] [address] [id number] White Blood Count July 01, 2020 9:40p m 11.2 10e3/uL 4.45-10.71 [facility], [address] [place] [address] White Blood Count May 18 6:17am 9.3 10e3/uL 4.45-10.71 [facility], [address] [place] [address] White Blood Count March 25, 2020 8:11am 10.8 10e3/uL 4.45-10.71 [facility], [address] [place] [address] White Blood Count March 11, 2020 12:14pm 11.3 10e3/uL 4.45-10.71 [facility], [address] [place] [address] White Blood Count March 02, 2020 11:00am 10.3 10e3/uL 4.45-10.71 [facility], [address] [place] [address] White Blood Count February 26, 2020 10:02am 9.8 10e3/uL 4.45-10.71 [facility], [address] [place] [address] White Blood Count February 20, 2020 8:35am 8.8 10e3/uL 4.45-10.71 [facility], [address] [place] [address] 52686 Red Blood Count August 30, 2020 8:15pm 4.26 10e6/uL 4.20-5.40 [facility], [address] [place] [address] 91824 Red Blood Count August 09, 2020 7:35pm 4.49 10e6/uL 4.20-5.40 [facility], [address] [place] [address] 32198 Red Blood Count August 14, 2020 9:31am 4.57 10e6/uL 4.20-5.40 [facility], [address] [place] [address] Red Blood Count August 03, 2020 2:35pm 4.47 10e6/uL 4.20-5.40 [facility], [address] [place] [address] 19951 Red Blood Count July 01, 2020 9:40pm 4.51 10e6/uL 4.20-5.40 [facility], [address] [place] [address] 82891 Red Blood Count May 18, 2020 6:17a m 4.10 10e6/uL 4.20-5.40 [facility], [address] [place] [address] Red Blood Count March 25, 2020 8:11am 4.25 10e6/uL 4.20-5.40 [facility], [address] [place] [address] Red Blood Count March 11, 2020 12:14pm 4.58 10e6/uL 4.20-5.40 [facility], [address] [place] [address] Red Blood Count March 02, 2020 11:00am 4.52 10e6/uL 4.20-5.40 [facility], [address] [place] [address] Red Blood Count February 26, 2020 10:02am 4.84 10e6/uL 4.20-5.40 [facility], [address] [place] [address] 24965 Red Blood Count February 20, 2020 8:35am 5.02 10e6/uL 4.20-5.40 [facility], [address] [place], [place] [id number] Hemoglobin August 30, 2020 8:15pm 10.5 g/dL 10.7-15.4 [facility], [address] [place] [address] 46951 Hemoglobin August 09, 2020 7:35pm 11.4 g/dL 10.7-15.4 [facility], [address] [place] [address] 84250 Hemoglobin August 14, 2020 9:31am 11.4 g/dL 10.7-15.4 [facility], [address] [place] [address] Hemoglobin August 03, 2020 2:35pm 11.5 g/dL 10.7-15.4 [facility], [address] [place] [address] 71258 Hemoglobin July 01, 2020 9:40pm 11.8 g/dL 10.7-15.4 [facility], [address] [place], [place] [id number] Hemoglobin May 18, 2020 6:17am 10.9 g/dL 10.7-15.4 [facility], [address] [place] [address] 69650 Hemoglobin March 25, 2020 8:11am 11.5 g/dL 10.7-15.4 [facility], [address] [place] [address] 66575 Hemoglobin March 11, 2020 12:14pm 12.4 g/dL 10.7-15.4 [facility], [address] [place] [address] 62441 Hemoglobin March 02, 2020 11:00am 12.1 g/dL 10.7-15.4 [facility], [address] [place] [address] 76780 Hemoglobin February 26, 2020 10:02am 13.0 g/dL 10.7-15.4 [facility], [address] [place] [address] 28462 Hemoglobin February 20, 2020 8:35am 13.4 g/dL 10.7-15.4 [facility], [address] [place] [address] 09003 Hematocrit August 30, 2020 8:15pm 34.4 % 37-47 [facility], [address] [place] [address] 82418 Hematocrit August 09, 2020 7:35pm 36.1 % 37-47 [facility], [address] [place] [address] 74993 Hematocrit August 14, 2020 9:31am 36.3 % 37-47 [facility], [address] [place] [address] 02069 Hematocrit August 03, 2020 2:35pm 36.1 % 37-47 [facility], [address] [place] [address] 46839 Hematocrit July 01, 2020 9:40pm 36.6 % 37-47 [facility], [address] [place] [address] 46567 Hematocrit May 18, 2020 6:17am 34.1 % 37-47 [facility], [address] [place] [address] 38637 Hematocrit March 25, 2020 8:11am 34.7 % 37-47 [facility], [address] [place] [address] 44966 Hematocrit March 11, 2020 12:14pm 37.2 % 37-47 [facility], [address] [place] [address] 93020 Hematocrit March 02, 2020 11:00am 36.9 % 37-47 [facility], [address] [place] [address] 94113 Hematocrit February 26, 2020 10:02am 39.4 % 37-47 [facility], [address] [place] [address] 97472 Hematocrit February 20, 2020 8:35am 41.0 % 37-47 [facility], [address] [place] [address] 78227 Mean Corpuscular Volume August 30, 2020 8:15pm 80.8 fl 80-96 [facility], [address] [place] [address] 41815 Mean Corpuscular Volume July 7:35pm 80.4 fl 80[facility], [address] [place] [address] 64735 Mean Corpuscular Volume July 9:31am 79.4 fl 80-[address] [place] [address] LABORATORY, [address] [place] [address] 86151 Mean Corpuscular Volume July 2:35pm 80.[address] [facility], [address] [place] [address] 43517 Mean Corpuscular Volume June 9:40pm 81.2 fl 80- [facility], [address] [place] [address] 24348 Mean Corpuscular Volume May 182019 6:17am 83.2 fl [facility], [address] [place] [address] 54353 Mean Corpuscular Volume March 25, 2020 8:11am 81.[address] [facility], [address] [place] [address] 92792 Mean Corpuscular Volume March 11, 020 12:14pm 81.[address] [facility], [address] [place] [address] 34951 Mean Corpuscular Volume March 02, 020 11:00am 81.6 fl 80-[address] [place] [address] LABORATORY, [address] [place] [address] 50646 Mean Corpuscular Volume February 25 10:02am 81.4 fl [facility], [address] [place] [address] 10829 Mean Corpuscular Volume February 19, 020 8:35am 81.7 fl 80- [facility], [address] [place] [address] 59013 Mean Corpuscular Hemoglobin August 30, 2020 8:15pm 24.6 pg 27-31 [facility], [address] [place] [address] 01256 Mean Corpuscular Hemoglobin August 09, 2020 7:35pm 25.4 pg 27-31 [facility], [address] [place] [address] 31727 Mean Corpuscular Hemoglobin August 14, 2020 9:31am 24.9 pg 27-31 [facility], [address] [place] [address] 16041 Mean Corpuscular Hemoglobin August 03, 2020 2:35pm 25.7 pg 27-31 [facility], [address] [place] [address] 46038 Mean Corpuscular Hemoglobin July 01, 2020 9:40pm 26.2 pg 27-31 [facility], [address] [place] [address] 34117 Mean Corpuscular Hemoglobin 2019 6:17am 26.6 pg 27-31 [facility], [address] [place] [address] 28616 Mean Corpuscular Hemoglobin March 252019 8:11am 27.1 pg 27-31 [facility], [address] [place] [address] 37680 Mean Corpuscular Hemoglobin March 11t h2019 12:14pm 27.1 pg 27-31 [facility], [address] [place] [address] 92265 Mean Corpuscular Hemoglobin February h2019 11:00am 26.8 pg 27-31 [facility], [address] [place] [address] 96673 Mean Corpuscular Hemoglobin February 10:02am 26.9 pg 27-31 [facility], [address] [place] [address] 98149 Mean Corpuscular Hemoglobin January 8:35am 26.7 pg 27-31 [facility], [address] [place] [address] 79873 Mean Corpuscular Hemoglobin Concent August 30, 2020 8:15pm 30.5 g/dl [facility], [address] [place] [address] 82183 Mean Corpuscular Hemoglobin Concent August 09, 2020 7:35pm 31.6 g/dl [facility], [address] [place] [address] 28252 Mean Corpuscular Hemoglobin Concent August 14, 2020 9:31am 31.4 g/dl [facility], [address] [place] [address] 82642 Mean Corpuscular Hemoglobin Concent August 03, 2020 2:35pm 31.9 g/dl [facility], [address] [place] [address] 38536 Mean Corpuscular Hemoglobin Concent July 01, 2020 9:40pm 32.2 g/dl [facility], [address] [place] [address] 32778 Mean Corpuscular Hemoglobin Concent May 18, 2020 6:17am 32.0 g/dl [facility], [address] [place] [address] 12923 Mean Corpuscular Hemoglobin Concent March 25, 2020 8:11am 33.1 g/dl [address] [place], [place] [address]GH [facility], [address] [place] [address] 98962 Mean Corpuscular Hemoglobin Concent March 11, 2020 12:14pm 33.3 g/dl [address] [place] [address] LABORATORY, [address] [place] [address] [id number] Mean Corpuscular Hemoglobin Concent March 02, 2020 11:00am 32.8 g/dl [address] [place] [address] LABORATORY, [address] [place] [address] 30915 Mean Corpuscular Hemoglobin Concent February 26, 2020 10:02am 33.0 g/dl [facility], [address] [place] [address] 91722 Mean Corpuscular Hemoglobin Concent February 20, 2020 8:35am 32.7 g/dl [address] [place] [address] LABORATORY, [address] [place] [address] 47551 Red Cell Distribution Width August 30, 2020 8:15pm 15 % 11-15 [facility], [address] [place] [address] 76310 Red Cell Distribution Width August 09, 2020 7:35pm 14 % 11-15 [facility], [address] [place] [address] 58535 Red Cell Distribution Width August 14, 2020 9:31am 15 % 11-15 [facility], [address] [place] [address] 79175 Red Cell Distribution Width August 03, 2020 2:35pm 14 % 11-15 [facility], [address] [place] [address] 44493 Red Cell Distribution Width July 01, 2020 9:40pm 14 % 11-15 [facility], [address] [place] [address] 37506 Red Cell Distribution Width Sept2019 6:17am 14 % 11-15 [facility], [address] [place] [address] 56710 Red Cell Distribution Width March 252019 8:11am 15 % 11-15 [facility], [address] [place] [address] 65991 Red Cell Distribution Width February 12:14pm 15 % 11-15 [facility], [address] [place] [address] 09075 Red Cell Distribution Width February 11:00am 14 % 11-15 [facility], [address] [place] [address] Red Cell Distribution Width February 10:02am 14 % 11-15 [facility], [address] [place] [address] Red Cell Distribution Width January 8:35am 15 % 11-15 [facility], [address] [place] [address] Platelet Count August 30, 2020 8:15pm 422 10e3/ul 130-472 [facility], [address] [place] [address] 21055 Platelet Count August 09, 2020 7:35pm 423 10e3/ul 130-472 [facility], [address] [place] [address] Platelet Count August 14, 2020 9:31am 429 10e3/ul 130-472 [facility], [address] [place] [address] Platelet Count August 03, 2020 2:35pm 372 10e3/ul 130-472 [facility], [address] [place] [address] 61824 Platelet Count July 01, 2020 9:40pm 392 10e3/ul 130-472 [facility], [address] [place] [address] Platelet Count May 18, 2020 6:17am 332 10e3/ul 130-472 [facility], [address] [place] [address] 83727 Platelet Count March 25, 2020 8:11am 395 10e3/ul 130-472 [facility], [address] [place] [address] 56437 Platelet Count March 11, 2020 12:14pm 460 10e3/ul 130-472 [facility], [address] [place] [address] 23618 Platelet Count March 02, 2020 11:00am 410 10e3/ul 130-472 [facility], [address] [place] [address] 47755 Platelet Count February 26, 2020 10:02am 436 10e3/ul 130-472 [facility], [address] [place] [address] Platelet Count February 20, 2020 8:35am 479 10e3/ul 130-472 [facility], [address] [place] [address] Mean Platelet Volume August 30 8:15pm 8.7 fl 9.1-13.1 [facility], [address] [place] [address] 78021 Mean Platelet Volume August 09, 2020 7:35pm 8.9 fl 9.1-13.1 [facility], [address] [place] [address] 68326 Mean Platelet Volume August 14, 2020 9:31am 8.9 fl 9.1-13.1 [facility], [address] [place] [address] 96186 Mean Platelet Volume August 03, 2020 2:35pm 9.0 fl 9.1-13.1 [facility], [address] [place] [address] 58405 Mean Platelet Volume July 01 9:40pm 8.6 fl 9.1-13.1 [facility], [address] [place] [address] 85923 Mean Platelet Volume May 18, 2020 6:17am 8.6 fl 9.1-13.1 [facility], [address] [place] [address] 65260 Mean Platelet Volume March 25 0 8:11am 8.3 fl 9.1-13.1 [facility], [address] [place] [address] 72610 Mean Platelet Volume March 11, 2020 12:14pm 8.4 fl 9.1-13.1 [facility], [address] [place] [address] 55609 Mean Platelet Volume March 02, 2020 11:00am 8.6 fl 9.1-13.1 [facility], [address] [place] [address] 87180 Mean Platelet Volume February 26, 2020 10:02a m 8.7 fl 9.1-13.1 [facility], [address] [place] [address] 95488 Mean Platelet Volume February 20, 2020 8:35a m 8.7 fl 9.1-13.1 [facility], [address] [place] [address] 86900 Neutrophils (%) (Auto) August 30, 2020 8:15pm 69.3 % [address] [facility], [address] [place] [address] 13049 Neutrophils (%) (Auto) July 7:35pm 71.3 % [address] [place] [address] LABORATORY, [address] [place] [address] 20567 Neutrophils (%) (Auto) July 9:31am 63.7 % [address] [place] [address] LABORATORY, [address] [place] [address] 04872 Neutrophils (%) (Auto) July 2:35pm 68.8 % [address] [place] [address] LABORATORY, [address] [place] [address] 32164 Neutrophils (%) (Auto) July 01, 2020 9:40pm 66.3 % [address] [place] [address] LABORATORY, [address] [place] [address] 61146 Neutrophils (%) (Auto) April 6:17am 66.1 % [address] [place] [address] LABORATORY, [address] [place] [address] 72008 Neutrophils (%) (Auto) March 25 020 8:11am 58.4 % [address] [place] [address] LABORATORY, [address] [place] [address] 81412 Neutrophils (%) (Auto) March 11 12:14pm 72.2 % [address] [place] [address] LABORATORY, [address] [place] [address] 44750 Neutrophils (%) (Auto) March 02 11:00am 65.4 % [address] [place] [address] LABORATORY, [address] [place] [address] 21984 Neutrophils (%) (Auto) February 25 0 10:02am 62.6 % [address] [place] [address] LABORATORY, [address] [place] [address] 98612 Neutrophils (%) (Auto) February 19 8:35am 62.4 % [address] [place] [address] LABORATORY, [address] [place] [address] 09835 Absolute Neutrophil August 30 1 8:15pm 7.8 # 1.7-7.6 [facility], [address] [place] [address] 67706 Absolute Neutrophil August 09, 020 7:35pm 7.0 # 1.7-7.6 [facility], [address] [place] [address] 09118 Absolute Neutrophil August 14 020 9:31am 6.2 # 1.7-7.6 [facility], [address] [place] [address] 03634 Absolute Neutrophil August 03 020 2:35pm 5.9 # 1.7-7.6 [facility], [address] [place] [address] 37869 Absolute Neutrophil July 01 9:40pm 7.5 # 1.7-7.6 [facility], [address] [place] [address] 94769 Absolute Neutrophil May 18, 2020 6:17am 6.1 # 1.7-7.6 [facility], [address] [place] [address] 02271 Absolute Neutrophil March 25, 2020 8:11a m 6.3 # 1.7-7.6 [facility], [address] [place] [address] 93258 Absolute Neutrophil March 11, 2020 12:14p m 8.1 # 1.7-7.6 [facility], [address] [place] [address] 76914 Absolute Neutrophil March 02, 2020 11:00a m 6.7 # 1.7-7.6 [facility], [address] [place] [address] 54921 Absolute Neutrophil February 26, 2020 10:02am 6.1 # 1.7-7.6 [facility], [address] [place] [address] 97300 Absolute Neutrophil February 20, 2020 8:35am 5.5 # 1.7-7.6 [facility], [address] [place] [address] 16903 Lymphocytes (%) (Auto) August 30, 2020 8:15pm 20.7 % 14-46 [facility], [address] [place] [address] 33324 Lymphocytes (%) (Auto) July 7:35pm 19.4 % 14-46 [facility], [address] [place] [address] 66577 Lymphocytes (%) (Auto) July 9:31am 25.9 % 14-46 [facility], [address] [place] [address] 59028 Lymphocytes (%) (Auto) July 2:35pm 20.2 % 1446 [facility], [address] [place] [address] 82774 Lymphocytes (%) (Auto) July 01, 2020 9:40pm 21.4 % 14-46 [facility], [address] [place] [address] 57301 Lymphocytes (%) (Auto) April 6:17am 22.8 % 14-46 [facility], [address] [place] [address] [id number] Lymphocytes (%) (Auto) March 25 8:11am 30.4 % 14-46 [facility], [address] [place] [address] [id number] Lymphocytes (%) (Auto) March 11 12:14pm 19.0 % 14-46 [facility], [address] [place] [address] [id number] Lymphocytes (%) (Auto) March 02 11:00am 23.6 % 14-46 [facility], [address] [place] [address] [id number] Lymphocytes (%) (Auto) February 25 0 10:02am 25.4 % 14-46 [facility], [address] [place] [address] [id number] Lymphocytes (%) (Auto) February 19 8:35am 26.5 % 14-46 [facility], [address] [place] [address] [id number] Lymphocytes # (Auto) August 30 8:15pm 2.3 # 0.6-4.6 [facility], [address] [place] [address] [id number] Lymphocytes # (Auto) August 09, 2020 7:35pm 1.9 # 0.6-4.6 [facility], [address] [place] [address] [id number] Lymphocytes # (Auto) August 14, 2020 9:31am 2.5 # 0.6-4.6 [facility], [address] [place] [address] [id number] Lymphocytes # (Auto) August 03, 2020 2:35pm 1.7 # 0.6-4.6 [facility], [address] [place] [address] [id number] Lymphocytes # (Auto) July 01 020 9:40pm 2.4 # 0.6-4.6 [facility], [address] [place] [address] [id number] Lymphocytes # (Auto) May 18, 2020 6:17am 2.1 # 0.6-4.6 [facility], [address] [place] [address] [id number] Lymphocytes # (Auto) March 25 0 8:11am 3.3 # 0.6-4.6 [facility], [address] [place] [address] [id number] Lymphocytes # (Auto) March 11, 2020 12:14pm 2.1 # 0.6-4.6 [facility], [address] [place] [address] [id number] Lymphocytes # (Auto) March 02, 2020 11:00am 2.4 # 0.6-4.6 [facility], [address] [place] [address] [id number] Lymphocytes # (Auto) February 26, 2020 10:02a m 2.5 # 0.6-4.6 [facility], [address] [place] [address] [id number] Lymphocytes # (Auto) February 20, 2020 8:35a m 2.3 # 0.6-4.6 [facility], [address] [place] [address] [id number] Monocytes (%) (Auto) August 30 8:15pm 6.8 % 412 [facility], [address] [place] [address] [id number] Monocytes (%) (Auto) August 09, 2020 7:35pm 7.0 % 412 [facility], [address] [place] [address] [id number] Monocytes (%) (Auto) August 14, 2020 9:31am 6.9 % 412 [facility], [address] [place] [address] [id number] Monocytes (%) (Auto) August 03, 2020 2:35pm 8.3 % [address] [facility], [address] [place] [address] [id number] Monocytes (%) (Auto) July 01 9:40pm 8.9 % [address] [facility], [address] [place] [address] [id number] Monocytes (%) (Auto) May 18, 2020 6:17am 8.7 % [address] [facility], [address] [place] [address] 35626 Monocytes (%) (Auto) March 25 0 8:11am 7.7 % [address] [facility], [address] [place] [address] 55434 Monocytes (%) (Auto) March 11, 2020 12:14pm 5.5 % 412 [facility], [address] [place] [address] [id number] Monocytes (%) (Auto) March 02, 2020 11:00am 7.8 % [address] [facility], [address] [place] [address] 49083 Monocytes (%) (Auto) February 26, 2020 10:02a m 8.2 % 4-12 [facility], [address] [place] [address] 35013 Monocytes (%) (Auto) February 20, 2020 8:35a m 8.0 % 412 [facility], [address] [place] [address] 40084 Monocytes # August 30, 2020 8:15pm 0.8 # 0.2-1.2 [facility], [address] [place] [address] 40985 Monocytes # August 09, 2020 7:35pm 0.7 # 0.2-1.2 [facility], [address] [place] [address] 33504 Monocytes # August 14, 2020 9:31am 0.7 # 0.2-1.2 [facility], [address] [place] [address] 98757 Monocytes # August 03, 2020 2:35pm 0.7 # 0.2-1.2 [facility], [address] [place] [address] 13631 Monocytes # July 01, 2020 9:40pm 1.0 # 0.2-1.2 [facility], [address] [place] [address] 77562 Monocytes # May 18, 2020 6:17am 0.8 # 0.2-1.2 [facility], [address] [place] [address] 26750 Monocytes # March 25, 2020 8:11am 0.8 # 0.2-1.2 [facility], [address] [place] [address] 14217 Monocytes # March 11, 2020 12:14pm 0.6 # 0.2-1.2 [facility], [address] [place] [address] 33161 Monocytes # March 02, 2020 11:00am 0.8 # 0.2-1.2 [facility], [address] [place] [address] [id number] Monocytes # February 26, 2020 10:02am 0.8 # 0.2-1.2 [facility], [address] [place] [address] 43598 Monocytes # February 20, 2020 8:35am 0.7 # 0.2-1.2 [facility], [address] [place] [address] 27628 Eosinophils (%) (Auto) August 30, 2020 8:15pm 2.4 % 0-7 [facility], [address] [place] [address] 26943 Eosinophils (%) (Auto) July 7:35pm 1.8 % 0-7 [facility], [address] [place] [address] 14889 Eosinophils (%) (Auto) July 9:31am 3.0 % 0-7 [facility], [address] [place] [address] 47375 Eosinophils (%) (Auto) July 2:35pm 2.2 % 0-7 [facility], [address] [place] [address] 64145 Eosinophils (%) (Auto) July 01, 2020 9:40pm 2.7 % 0-7 [facility], [address] [place] [address] 37385 Eosinophils (%) (Auto) April 6:17am 1.9 % 0-7 [facility], [address] [place] [address] 23548 Eosinophils (%) (Auto) March 25 8:11am 2.7 % 0-7 [facility], [address] [place] [address] 51243 Eosinophils (%) (Auto) March 11 12:14pm 2.5 % 0-7 [facility], [address] [place] [address] 98936 Eosinophils (%) (Auto) March 02 11:00am 2.4 % 0-7 [facility], [address] [place] [address] 10232 Eosinophils (%) (Auto) February 25 0 10:02am 3.1 % 0-7 [facility], [address] [place] [address] 53548 Eosinophils (%) (Auto) February 19 8:35am 2.6 % 0-7 [facility], [address] [place] [address] 14832 Absolute Eosinophils (CBC) August 302020 8:15pm 0.3 # 0.0-0.5 [facility], [address] [place] [address] 28962 Absolute Eosinophils (CBC) August 09, 2020 7:35pm 0.2 # 0.0-0.5 [facility], [address] [place] [address] 46259 Absolute Eosinophils (CBC) August 14, 2020 9:31am 0.3 # 0.0-0.5 [facility], [address] [place] [address] 72841 Absolute Eosinophils (CBC) August 03, 2020 2:35pm 0.2 # 0.0-0.5 [facility], [address] [place] [address] 72513 Absolute Eosinophils (CBC) July 01, 2020 9:40pm 0.3 # 0.0-0.5 [facility], [address] [place] [address] 44762 Absolute Eosinophils (CBC) May 18, 2020 6:17am 0.2 # 0.0-0.5 [facility], [address] [place] [address] 40329 Absolute Eosinophils (CBC) March 8:11am 0.3 # 0.0-0.5 [facility], [address] [place] [address] Absolute Eosinophils (CBC) February 12:14pm 0.3 # 0.0-0.5 [facility], [address] [place] [address] Absolute Eosinophils (CBC) February 11:00am 0.3 # 0.0-0.5 [facility], [address] [place] [address] Absolute Eosinophils (CBC) February 26, 2020 10:02am 0.3 # 0.0-0.5 [facility], [address] [place] [address] Absolute Eosinophils (CBC) January 8:35am 0.2 # 0.0-0.5 [facility], [address] [place] [address] 82952 Basophils (%) (Auto) August 30 8:15pm 0.4 % 0.4-1.3 [facility], [address] [place] [address] 42978 Basophils (%) (Auto) August 09, 2020 7:35pm 0.3 % 0.4-1.3 [facility], [address] [place] [address] 29089 Basophils (%) (Auto) August 14, 2020 9:31am 0.3 % 0.4-1.3 [facility], [address] [place] [address] 29491 Basophils (%) (Auto) August 03, 2020 2:35pm 0.3 % 0.4-1.3 [facility], [address] [place] [address] 42699 Basophils (%) (Auto) July 01, 020 9:40pm 0.4 % 0.4-1.3 [facility], [address] [place] [address] 88548 Basophils (%) (Auto) May 18, 2020 6:17am 0.3 % 0.4-1.3 [facility], [address] [place] [address] 83399 Basophils (%) (Auto) March 25 0 8:11am 0.5 % 0.4-1.3 [facility], [address] [place] [address] 86466 Basophils (%) (Auto) March 11, 2020 12:14pm 0.4 % 0.4-1.3 [facility], [address] [place] [address] 71934 Basophils (%) (Auto) March 02, 2020 11:00am 0.5 % 0.4-1.3 [facility], [address] [place] [address] 11507 Basophils (%) (Auto) February 26, 2020 10:02a m 0.4 % 0.4-1.3 [facility], [address] [place] [address] 03778 Basophils (%) (Auto) February 20, 2020 8:35a m 0.3 % 0.4-1.3 [facility], [address] [place] [address] 02767 Absolute Basophils (CBC) August 8:15pm 0.1 # 0.0-0.2 [facility], [address] [place] [address] 83830 Absolute Basophils (CBC) August 092019 7:35pm 0.0 # 0.0-0.2 [facility], [address] [place] [address] 52788 Absolute Basophils (CBC) August 142019 9:31am 0.0 # 0.0-0.2 [facility], [address] [place] [address] 71023 Absolute Basophils (CBC) August 032019 2:35pm 0.0 # 0.0-0.2 [facility], [address] [place] [address] Absolute Basophils (CBC) June 9:40pm 0.0 # 0.0-0.2 [facility], [address] [place] [address] 91722 Absolute Basophils (CBC) April 242019 6:17am 0.0 # 0.0-0.2 [facility], [address] [place] [address] 80192 Absolute Basophils (CBC) March 25, 2020 8:11am 0.1 # 0.0-0.2 [facility], [address] [place] [address] 60029 Absolute Basophils (CBC) March 11, 2020 12:14pm 0.0 # 0.0-0.2 [facility], [address] [place] [address] Absolute Basophils (CBC) March 02, 2020 11:00am 0.1 # 0.0-0.2 [facility], [address] [place] [address] 79018 Absolute Basophils (CBC) February 25 10:02am 0.0 # 0.0-0.2 [facility], [address] [place] [address] 35711 Absolute Basophils (CBC) February 20, 2020 8:35am 0.0 # 0.0-0.2 [facility], [address] [place] [address] 68920 Immature Granulocyte % (Auto) Auguar y 2020 8:15pm 0.4 % 0-2 [facility], [address] [place] [address] 23482 Immature Granulocyte % (Auto) Decemb er 2019 7:35pm 0.2 % 0-2 [facility], [address] [place] [address] 31196 Immature Granulocyte % (Auto) Decemb er 2019 9:31am 0.2 % 0-2 [facility], [address] [place] [address] 62176 Immature Granulocyte % (Auto) Decemb er 2019 2:35pm 0.2 % 0-2 [facility], [address] [place] [address] 65952 Immature Granulocyte % (Auto) [facility] 9:40pm 0.3 % 0-2 [facility], [address] [place] [address] 94547 Immature Granulocyte % (Auto) Septem marci 2019 6:17am 0.2 % 0-2 [facility], [address] [place] [address] 55183 Immature Granulocyte % (Auto) March 25, 2020 8:11am 0.3 % 0-2 [facility], [address] [place] [address] 64697 Immature Granulocyte % (Auto) February 212019 12:14pm 0.4 % 0-2 [facility], [address] [place] [address] 74871 Immature Granulocyte % (Auto) February 202019 11:00am 0.3 % 0-2 [facility], [address] [place] [address] Immature Granulocyte % (Auto) February 252019 10:02am 0.3 % 0-2 [facility], [address] [place] [address] Immature Granulocyte % (Auto) January 232019 8:35am 0.2 % 0-2 [facility], [address] [place] [address] Absolute Immature Granulocyte (auto August 30, 2020 8:15pm 0.0 # 0-0.1 [facility], [address] [place] [address] Absolute Immature Granulocyte (auto August 09, 2020 7:35pm 0.0 # 0-0.1 [facility], [address] [place] [address] Absolute Immature Granulocyte (auto August 14, 2020 9:31am 0.0 # 0-0.1 [facility], [address] [place] [address] Absolute Immature Granulocyte (auto August 03, 2020 2:35pm 0.0 # 0-0.1 [facility], [address] [place] [address] Absolute Immature Granulocyte (auto July 01, 2020 9:40pm 0.0 # 0-0.1 [facility], [address] [place] [address] Absolute Immature Granulocyte (auto May 18, 2020 6:17am 0.0 # 0-0.1 [facility], [address] [place] [address] Absolute Immature Granulocyte (auto March 25, 2020 8:11am 0.0 # 0-0.1 [facility], [address] [place] [address] Absolute Immature Granulocyte (auto March 11, 2020 12:14pm 0.0 # 0-0.1 [facility], [address] [place] [address] Absolute Immature Granulocyte (auto March 02, 2020 11:00am 0.0 # 0-0.1 [facility], [address] [place] [address] Absolute Immature Granulocyte (auto February 26, 2020 10:02am 0.0 # 0-0.1 [facility], [address] [place] [address] Absolute Immature Granulocyte (auto February 20, 2020 8:35am 0.0 # 0-0.1 [facility], [address] [place] [address] Add Manual Differential August 30, 2020 8:15pm No [facility], [address] [place] [address] 47854 Add Manual Differential July 18t h2019 7:35pm No [facility], [address] [place] [address] 66647 Add Manual Differential July d2019 9:31am No [facility], [address] [place] [address] 82691 Add Manual Differential July h2019 2:35pm No [facility], [address] [place] [address] 14895 Add Manual Differential June 9:40pm No [facility], [address] [place] [address] 50997 Add Manual Differential May 182019 6:17am No [facility], [address] [place] [address] 79607 Add Manual Differential March 25, 2020 8:11am No [facility], [address] [place] [address] 66304 Add Manual Differential March 11 12:14pm No [facility], [address] [place] [address] 66631 Add Manual Differential March 02 11:00am No [facility], [address] [place] [address] 12587 Add Manual Differential February 25 10:02am No [facility], [address] [place] [address] 75600 Add Manual Differential February 19 020 8:35am No [facility], [address] [place] [address] 66387 Differential Total Cells Counted Apr 7:20pm 100 [facility], [address] [place] [address] 04687 Neutrophils (Manual) May 17, 2020 7:20pm 77 % 41-77 [facility], [address] [place] [address] 54907 Band Neutrophils May 17 0 7:20pm 3 % 0-5 [facility], [address] [place] [address] 57106 Lymphocytes (Manual) May 17, 2020 7:20pm 17 % 14-46 [facility], [address] [place] [address] 91275 Monocytes (Manual) May 17 7:20pm 3 % 4-12 [facility], [address] [place] [address] 74534 Platelet Estimate May 17 7:20pm Appears normal NORMAL [facility], [address] [place] [address] 64029 RBC Morphology 2 May 17 0 7:20pm Appears normal NORMAL [facility], [address] [place] [address] 66489 Urine Color May 18, 2020 12:15am Yellow [facility], [address] [place] [address] 59531 Urine Color February 20, 2020 8:40am Yellow [facility], [address] [place] [address] 51826 Urine Color August 30, 2020 8:15pm [place] [facility], [address] [place] [address] 32028 Urine Color August 09, 2020 8:06pm Yellow [facility], [address] [place] [address] 08132 Urine Color August 03, 2020 2:50pm Yellow [facility], [address] [place] [address] 21032 Urine Color July 01, 2020 9:30pm Yellow [facility], [address] [place] [address] 17161 Urine Color March 25, 2020 8:05am Yellow [facility], [address] [place] [address] 21066 Urine Color March 11, 2020 11:00am Yellow [facility], [address] [place] [address] 17824 Urine Color March 05, 2020 2:29pm Yellow [facility], [address] [place] [address] 61963 Urine Color March 02, 2020 10:48am Yellow [facility], [address] [place] [address] 85437 Urine Appearance August 30, 2020 8:15pm Turbid CLEAR [facility], [address] [place] [address] 64731 Urine Appearance August 09, 2020 8:06p m Clear CLEAR [facility], [address] [place] [address] 65408 Urine Appearance August 03, 2020 2:50p m Clear CLEAR [facility], [address] [place] [address] 64922 Urine Appearance July 01, 2020 9:30pm Cloudy CLEAR [facility], [address] [place] [address] 11618 Urine Appearance May 18 12:15am Clear [facility], [address] [place] [address] 49114 Urine Appearance March 25, 2020 8:05am Cloudy [facility], [address] [place] [address] 49568 Urine Appearance March 11, 2020 11:00am Cloudy [facility], [address] [place] [address] 25463 Urine Appearance March 05, 2020 2:29pm Cloudy [facility], [address] [place] [address] 17858 Urine Appearance March 02, 2020 10:48am Cloudy [facility], [address] [place] [address] 32538 Urine Appearance February 20, 2020 8:40am Turbid CLEAR [facility], [address] [place] [address] 25933 Urine pH August 30, 2020 8:15pm 6.5 [facility], [address] [place] [address] 71259 Urine pH August 09, 2020 8:06pm 6.5 [facility], [address] [place] [address] 31479 Urine pH August 03, 2020 2:50pm 7.5 [facility], [address] [place] [address] 37008 Urine pH July 01, 2020 9:30pm 6.0 [facility], [address] [place] [address] 87353 Urine pH May 18, 2020 12:15am 6.0 [facility], [address] [place] [address] 57141 Urine pH March 25, 2020 8:05am 5.5 [facility], [address] [place] [address] 93459 Urine pH March 11, 2020 11:00am 6.5 [facility], [address] [place] [address] 16407 Urine pH March 05, 2020 2:29pm 6.0 [facility], [address] [place] [address] 47595 Urine pH March 02, 2020 10:48am 5.5 [facility], [address] [place] [address] 68744 Urine pH February 20, 2020 8:40am 5.5 [facility], [address] [place] [address] 46717 Urine Specific [place] August 30, 2020 8:15pm 1.033 [facility], [address] [place] [address] 34938 Urine Specific [place] July 8:06pm 1.022 [facility], [address] [place] [address] 17795 Urine Specific [place] July 2:50pm 1.020 [facility], [address] [place] [address] 99131 Urine Specific [place] July 01, 2020 9:30pm 1.026 [facility], [address] [place] [address] Urine Specific [place] April 12:15am >1.045 [facility], [address] [place] [address] Urine Specific [place] March 25 8:05am 1.025 [facility], [address] [place] [address] Urine Specific [place] March 11 11:00am 1.025 [facility], [address] [place] [address] Urine Specific [place] March 05 2:29pm 1.021 [facility], [address] [place] [address] Urine Specific [place] March 02 10:48am 1.025 [facility], [address] [place] [address] Urine Specific [place] February 19 8:40am 1.023 [facility], [address] [place] [address] Urine Leukocyte Esterase April 242019 12:15am Negative NEGATIVE [facility], [address] [place] [address] Urine Leukocyte Esterase February 20, 2020 8:40am Moderate NEGATIVE [facility], [address] [place] [address] Urine Leukocyte Esterase August 8:15pm Small NEGATIVE A Culture has been added to this specimen per established criteria [facility], [address] [place] [address] Urine Leukocyte Esterase August 092019 8:06pm Small NEGATIVE A Culture has been added to this specimen per established criteria [facility], [address] [place] [address] Urine Leukocyte Esterase August 032019 2:50pm Small NEGATIVE A Culture has been added to this specimen per established criteria [facility], [address] [place] [address] Urine Leukocyte Esterase June 9:30pm Small NEGATIVE A Culture has been added to this specimen per established criteria [facility], [address] [place] [address] Urine Leukocyte Esterase March 25, 2020 8:05am Trace NEGATIVE A Culture has been added to this specimen per established criteria [facility], [address] [place] [address] Urine Leukocyte Esterase March 11, 2020 11:00am Trace NEGATIVE A Culture has been added to this specimen per established criteria [facility], [address] [place] [address] Urine Leukocyte Esterase March 05, 2020 2:29pm Trace NEGATIVE A Culture has been added to this specimen per established criteria [facility], [address] [place] [address] 64849 Urine Leukocyte Esterase March 02, 2020 10:48am Trace NEGATIVE A Culture has been added to this specimen per established criteria [facility], [address] [place] [address] Urine Nitrite May 18, 2020 12:15am Negative NEGATIVE [facility], [address] [place] [address] 46616 Urine Nitrite February 20, 2020 8:40am Negative NEGATIVE [facility], [address] [place] [address] 09406 Urine Nitrate August 30, 2020 8:15pm Negative NEGATIVE [facility], [address] [place] [address] 54722 Urine Nitrate August 09, 2020 8:06pm Negative NEGATIVE [facility], [address] [place] [address] Urine Nitrate August 03, 2020 2:50pm Negative NEGATIVE [facility], [address] [place] [address] Urine Nitrate July 01, 2020 9:30pm Negative NEGATIVE [facility], [address] [place] [address] 88448 Urine Nitrate March 25, 2020 8:05am Negative NEGATIVE [facility], [address] [place] [address] Urine Nitrate March 11, 2020 11:00am Negative NEGATIVE [facility], [address] [place] [address] Urine Nitrate March 05, 2020 2:29pm Negative NEGATIVE [facility], [address] [place] [address] [id number] Urine Nitrate March 02, 2020 10:48am Negative NEGATIVE [facility], [address] [place] [address] [id number] Urine Protein August 30, 2020 8:15pm 30 mg/dl NEGATIVE [facility], [address] [place] [address] [id number] Urine Protein August 09, 2020 8:06pm Negative NEGATIVE [facility], [address] [place] [address] [id number] Urine Protein August 03, 2020 2:50pm Negative NEGATIVE [facility], [address] [place] [address] Urine Protein July 01, 2020 9:30pm Trace NEGATIVE [facility], [address] [place] [address] Urine Protein May 18, 2020 12:15am Negative NEGATIVE [facility], [address] [place] [address] Urine Protein March 25, 2020 8:05am Negative NEGATIVE [facility], [address] [place] [address] Urine Protein March 11, 2020 11:00am Trace NEGATIVE [facility], [address] [place] [address] [id number] Urine Protein March 05, 2020 2:29pm Trace NEGATIVE [facility], [address] [place] [address] [id number] Urine Protein March 02, 2020 10:48am Negative NEGATIVE [facility], [address] [place] [address] [id number] Urine Protein February 20, 2020 8:40am 30 mg/dl NEGATIVE [facility], [address] [place] [address] [id number] Urine Glucose August 30, 2020 8:15pm Negative NEGATIVE [facility], [address] [place] [address] [id number] Urine Glucose August 09, 2020 8:06pm Negative NEGATIVE [facility], [address] [place] [address] [id number] Urine Glucose August 03, 2020 2:50pm Negative NEGATIVE [facility], [address] [place] [address] [id number] Urine Glucose July 01, 2020 9:30pm Negative NEGATIVE [facility], [address] [place] [address] [id number] Urine Glucose May 18, 2020 12:15am Negative NEGATIVE [facility], [address] [place] [address] [id number] Urine Glucose March 25, 2020 8:05am Negative NEGATIVE [facility], [address] [place] [address] [id number] Urine Glucose March 11, 2020 11:00am Negative NEGATIVE [facility], [address] [place] [address] [id number] Urine Glucose March 05, 2020 2:29pm Negative NEGATIVE [facility], [address] [place] [address] [id number] Urine Glucose March 02, 2020 10:48am Negative NEGATIVE [facility], [address] [place] [address] [id number] Urine Glucose February 20, 2020 8:40am Negative NEGATIVE [facility], [address] [place] [address] [id number] Urine Ketones August 30, 2020 8:15pm Trace NEGATIVE [facility], [address] [place] [address] [id number] Urine Ketones August 09, 2020 8:06pm Negative NEGATIVE [facility], [address] [place] [address] [id number] Urine Ketones August 03, 2020 2:50pm Negative NEGATIVE [facility], [address] [place] [address] [id number] Urine Ketones July 01, 2020 9:30pm Trace NEGATIVE [facility], [address] [place] [address] [id number] Urine Ketones May 18, 2020 12:15am Negative NEGATIVE [facility], [address] [place] [address] [id number] Urine Ketones March 25, 2020 8:05am Trace NEGATIVE [facility], [address] [place] [address] [id number] Urine Ketones March 11, 2020 11:00am Trace NEGATIVE [facility], [address] [place] [address] Urine Ketones March 05, 2020 2:29pm Negative NEGATIVE [facility], [address] [place] [address] [id number] Urine Ketones March 02, 2020 10:48am Negative NEGATIVE [facility], [address] [place], [place] [id number] Urine Ketones February 20, 2020 8:40am Trace NEGATIVE [facility], [address] [place] [address] [id number] Urine Urobilinogen August 30, 2020 8:15p m 1 eu/dl [facility], [address] [place] [address] [id number] Urine Urobilinogen August 09 8:06pm 1 eu/dl [facility], [address] [place] [address] Urine Urobilinogen August 03 2:50pm 1 eu/dl [facility], [address] [place] [address] [id number] Urine Urobilinogen July 01 9:30pm 1 eu/dl [facility], [address] [place] [address] Urine Urobilinogen May 18 12:15am 0.2 eu/dl [facility], [address] [place] [address] Urine Urobilinogen March 25, 2020 8:05am 1 eu/dl [facility], [address] [place] [address] [id number] Urine Urobilinogen March 11, 2020 11:00am 1 eu/dl [facility], [address] [place] [address] [id number] Urine Urobilinogen March 05, 2020 2:29pm 0.2 eu/dl [facility], [address] [place] [address] Urine Urobilinogen March 02, 2020 10:48am 1 eu/dl [facility], [address] [place] [address] Urine Urobilinogen February 20, 2020 8:40am 1 eu/dl [facility], [address] [place] [address] [id number] Urine Bilirubin August 30, 2020 8:15pm Negative NEGATIVE [facility], [address] [place] [address] [id number] Urine Bilirubin August 09, 2020 8:06pm Negative NEGATIVE [facility], [address] [place] [address] [id number] Urine Bilirubin August 03, 2020 2:50pm Negative NEGATIVE [facility], [address] [place] [address] 85709 Urine Bilirubin July 01, 2020 9:30pm Negative NEGATIVE [facility], [address] [place] [address] [id number] Urine Bilirubin May 18, 2020 12:15am Negative NEGATIVE [facility], [address] [place] [address] [id number] Urine Bilirubin March 25, 2020 8:05am Negative NEGATIVE [facility], [address] [place] [address] 10073 Urine Bilirubin March 11, 2020 11:00am Negative NEGATIVE [facility], [address] [place] [address] 11556 Urine Bilirubin March 05, 2020 2:29pm Negative NEGATIVE [facility], [address] [place] [address] 07902 Urine Bilirubin March 02, 2020 10:48am Negative NEGATIVE [facility], [address] [place] [address] [id number] Urine Bilirubin February 20, 2020 8:40am Negative NEGATIVE [facility], [address] [place] [address] [id number] Urine Blood May 18, 2020 12:15am Negative NEGATIVE [facility], [address] [place] [address] [id number] Urine Blood February 20, 2020 8:40am Large NEGATIVE [facility], [address] [place] [address] [id number] Urine Blood August 30, 2020 8:15pm Large NEGATIVE A Culture has been added to this specimen per established criteria [facility], [address] [place] [address] [id number] Urine Blood August 09, 2020 8:06pm Moderate NEGATIVE A Culture has been added to this specimen per established criteria [facility], [address] [place] [address] [id number] Urine Blood August 03, 2020 2:50pm Small NEGATIVE [facility], [address] [place] [address] [id number] Urine Blood July 01, 2020 9:30pm Moderate NEGATIVE A Culture has been added to this specimen per established criteria [facility], [address] [place] [address] [id number] Urine Blood March 25, 2020 8:05am Negative NEGATIVE [facility], [address] [place] [address] [id number] Urine Blood March 11, 2020 11:00am Negative NEGATIVE [facility], [address] [place] [address] Urine Blood March 05, 2020 2:29pm Large NEGATIVE A Culture has been added to this specimen per established criteria [facility], [address] [place] [address] Urine Blood March 02, 2020 10:48am Trace NEGATIVE [facility], [address] [place] [address] [id number] Microscopic Urinalysis Comment Septe 2019 12:15am No [facility], [address] [place] [address] Microscopic Urinalysis Comment February 20, 2020 8:40am Microscopic added [facility], [address] [place] [address] Add Urine Microanalysis August 30, 2020 8:15pm Microscopic added [facility], [address] [place] [address] Add Urine Microanalysis July 8:06pm Microscopic added [facility], [address] [place] [address] Add Urine Microanalysis July 2:50pm Microscopic added [facility], [address] [place] [address] Add Urine Microanalysis June 9:30pm Microscopic added [facility], [address] [place] [address] Add Urine Microanalysis March 25, 2020 8:05am Microscopic added [facility], [address] [place] [address] Add Urine Microanalysis March 11, 020 11:00am Microscopic added [facility], [address] [place] [address] Add Urine Microanalysis March 05, 020 2:29pm Microscopic added [facility], [address] [place] [address] Add Urine Microanalysis March 02, 020 10:48am Microscopic added [facility], [address] [place] [address] Urine RBC August 30, 2020 8:15pm 1-2 /hpf [facility], [address] [place] [address] Urine RBC August 09, 2020 8:06pm 1-2 /hpf [facility], [address] [place] [address] Urine RBC August 03, 2020 2:50pm 6-10 /hpf [facility], [address] [place] [address] Urine RBC July 01, 2020 9:30pm Occasional /hpf [facility], [address] [place] [address] Urine RBC March 05, 2020 2:29pm 3-5 /hpf [facility], [address] [place] [address] Urine RBC March 02, 2020 10:48am Occasional /hpf [facility], [address] [place] [address] Urine WBC February 20, 2020 8:40am 20-30 /hpf [facility], [address] [place] [address] Urine WBC August 30, 2020 8:15pm 1-2 /hpf [facility], [address] [place] [address] Urine WBC August 09, 2020 8:06pm 1-2 /hpf [facility], [address] [place] [address] Urine WBC August 03, 2020 2:50pm 20-30 /hpf [facility], [address] [place] [address] Urine WBC July 01, 2020 9:30pm Occasional /hpf [facility], [address] [place] [address] Urine WBC March 25, 2020 8:05am 3-5 /hpf [facility], [address] [place] [address] Urine WBC March 11, 2020 11:00am 3-5 /hpf [facility], [address] [place] [address] Urine WBC March 05, 2020 2:29pm Occasional /hpf [facility], [address] [place] [address] Urine WBC March 02, 2020 10:48am 3-5 /hpf [facility], [address] [place] [address] Urine Squamous Epithelial Cells Lukas krystina 2020 8:15pm Moderate /hpf [facility], [address] [place] [address] Urine Squamous Epithelial Cells Dece mber 2019 8:06pm Many /hpf [facility], [address] [place] [address] Urine Squamous Epithelial Cells Dece mber 2019 2:50pm Moderate /hpf [facility], [address] [place] [address] Urine Squamous Epithelial Cells Nove mber 2019 9:30pm Moderate /hpf [facility], [address] [place] [address] [id number] Urine Squamous Epithelial Cells Augu 2019 8:05am Many /hpf [facility], [address] [place] [address] Urine Squamous Epithelial Cells March 11, 2020 11:00am Many /hpf [facility], [address] [place] [address] Urine Squamous Epithelial Cells March 05, 2020 2:29pm Many /hpf [facility], [address] [place] [address] Urine Squamous Epithelial Cells March 02, 2020 10:48am Many /hpf [facility], [address] [place] [address] Urine Squamous Epithelial Cells February 20, 2020 8:40am Many /hpf [facility], [address] [place] [address] [id number] Urine Bacteria February 20, 2020 8:40am Moderate amount NEGATIVE [facility], [address] [place] [address] [id number] Urine Bacteria August 30, 2020 8:15pm Small amount NEGATIVE [facility], [address] [place] [address] Urine Bacteria August 09, 2020 8:06pm Small amount NEGATIVE [facility], [address] [place] [address] [id number] Urine Bacteria August 03, 2020 2:50pm Small amount NEGATIVE [facility], [address] [place] [address] 88002 Urine Bacteria July 01, 2020 9:30pm Moderate amount NEGATIVE A Culture has been added to this specime n per established criteria [facility], [address] [place] [address] [id number] Urine Bacteria March 25, 2020 8:05am Small amount NEGATIVE [facility], [address] [place] [address] [id number] Urine Bacteria March 11, 2020 11:00am Small amount NEGATIVE [facility], [address] [place] [address] [id number] Urine Bacteria March 05, 2020 2:29pm Small amount NEGATIVE [facility], [address] [place] [address] [id number] Urine Bacteria March 02, 2020 10:48am Small amount NEGATIVE [facility], [address] [place] [address] 51332 Urine Mucus August 30, 2020 8:15pm Small amount [facility], [address] [place] [address] 33830 Urine Mucus March 25, 2020 8:05am Small amount [facility], [address] [place] [address] Urine Sperm February 20, 2020 8:40am Few [facility], [address] [place] [address] [id number] Blood Urea Nitrogen August 30 8:15pm 16 mg/dL 05-15 [facility], [address] [place] [address] Blood Urea Nitrogen August 09 020 7:35pm 8 mg/dL 05-15 [facility], [address] [place] [address] Blood Urea Nitrogen August 03 020 2:35pm 5 mg/dL 05-15 [facility], [address] [place] [address] Blood Urea Nitrogen July 01 9:40pm 6 mg/dL 05-15 [facility], [address] [place] [address] Blood Urea Nitrogen May 18, 2020 6:17am 7 mg/dL 05-15 [facility], [address] [place] [address] Blood Urea Nitrogen March 25, 2020 8:11a m 7 mg/dL 05-15 [facility], [address] [place] [address] Blood Urea Nitrogen March 11, 2020 12:14p m 6 mg/dL 05-15 [facility], [address] [place] [address] Blood Urea Nitrogen March 02, 2020 11:00a m 8 mg/dL 05-15 [facility], [address] [place] [address] Blood Urea Nitrogen February 26, 2020 10:02am 7 mg/dL 05-15 [facility], [address] [place] [address] Blood Urea Nitrogen February 20, 2020 8:35am 6 mg/dL 05-15 [facility], [address] [place] [address] [id number] Sodium Level August 30, 2020 8:15pm 141 mmol/L 132-146 [facility], [address] [place] [address] [id number] Sodium Level August 09, 2020 7:35pm 141 mmol/L 132-146 [facility], [address] [place] [address] Sodium Level August 03, 2020 2:35pm 138 mmol/L 132-146 [facility], [address] [place] [address] Sodium Level July 01, 2020 9:40pm 141 mmol/L 132-146 [facility], [address] [place] [address] Sodium Level May 18, 2020 6:17am 143 mmol/L 132-146 [facility], [address] [place] [address] [id number] Sodium Level March 25, 2020 8:11am 137 mmol/L 132-146 [facility], [address] [place] [address] [id number] Sodium Level March 11, 2020 12:14pm 140 mmol/L 132-146 [facility], [address] [place] [address] 78157 Sodium Level March 02, 2020 11:00am 139 mmol/L 132-146 [facility], [address] [place] [address] 43230 Sodium Level February 26, 2020 10:02am 138 mmol/L 132-146 [facility], [address] [place] [address] [id number] Sodium Level February 20, 2020 8:35am 138 mmol/L 132-146 [facility], [address] [place] [address] 76677 Potassium Level August 30, 2020 8:15pm 3.8 mmol/L 3.5-5.5 [facility], [address] [place] [address] 36206 Potassium Level August 09, 2020 7:35pm 3.9 mmol/L 3.5-5.5 [facility], [address] [place] [address] 95722 Potassium Level August 03, 2020 2:35pm 4.6 mmol/L 3.5-5.5 [facility], [address] [place] [address] 43351 Potassium Level July 01, 2020 9:40pm 3.7 mmol/L 3.5-5.5 [facility], [address] [place] [address] 72736 Potassium Level May 18, 2020 6:17a m 3.8 mmol/L 3.5-5.5 [facility], [address] [place] [address] [id number] Potassium Level March 25, 2020 8:11am 3.7 mmol/L 3.5-5.5 [facility], [address] [place] [address] [id number] Potassium Level March 11, 2020 12:14pm 4.3 mmol/L 3.5-5.5 [facility], [address] [place] [address] [id number] Potassium Level March 02, 2020 11:00am 4.1 mmol/L 3.5-5.5 [facility], [address] [place] [address] [id number] Potassium Level February 26, 2020 10:02am 4.1 mmol/L 3.5-5.5 [facility], [address] [place] [address] [id number] Potassium Level February 20, 2020 8:35am 4.1 mmol/L 3.5-5.5 [facility], [address] [place] [address] [id number] Chloride Level August 30, 2020 8:15pm 109 mmol/l 99-109 [facility], [address] [place] [address] [id number] Chloride Level August 09, 2020 7:35pm 111 mmol/l 99-109 [facility], [address] [place] [address] 56865 Chloride Level August 03, 2020 2:35pm 110 mmol/l 99-109 [facility], [address] [place] [address] 27669 Chloride Level July 01, 2020 9:40pm 110 mmol/l 99-109 [facility], [address] [place] [address] 50601 Chloride Level May 18, 2020 6:17am 113 mmol/l 99-109 [facility], [address] [place] [address] 43603 Chloride Level March 25, 2020 8:11am 111 mmol/l 99-109 [facility], [address] [place] [address] 45102 Chloride Level March 11, 2020 12:14pm 111 mmol/l 99-109 [facility], [address] [place] [address] 77815 Chloride Level March 02, 2020 11:00am 111 mmol/l 99-109 [facility], [address] [place] [address] 43690 Chloride Level February 26, 2020 10:02am 107 mmol/l 99-109 [facility], [address] [place] [address] 85766 Chloride Level February 20, 2020 8:35am 108 mmol/l 99-109 [facility], [address] [place] [address] 74007 Carbon Dioxide Level August 30 8:15pm 24 mmol/l -31 [facility], [address] [place] [address] 37026 Carbon Dioxide Level August 09, 2020 7:35pm 24 mmol/l -31 [facility], [address] [place] [address] 81593 Carbon Dioxide Level August 03, 2020 2:35pm 21 mmol/l -31 [facility], [address] [place] [address] 08283 Carbon Dioxide Level July 01 9:40pm 22 mmol/l 20-31 [facility], [address] [place] [address] [id number] Carbon Dioxide Level May 18, 2020 6:17am 25 mmol/l 20-31 [facility], [address] [place] [address] 52794 Carbon Dioxide Level March 25 8:11am 21 mmol/l 20-31 [facility], [address] [place] [address] 23001 Carbon Dioxide Level March 11, 2020 12:14pm 20 mmol/l 20-31 [facility], [address] [place] [address] 75632 Carbon Dioxide Level March 02, 2020 11:00am 20 mmol/l 20-31 [facility], [address] [place] [address] [id number] Carbon Dioxide Level February 26, 2020 10:02a m 22 mmol/l 20-31 [facility], [address] [place] [address] 31075 Carbon Dioxide Level February 20, 2020 8:35a m 21 mmol/l 20-31 [facility], [address] [place] [address] 02373 Anion Gap August 30, 2020 8:15pm 12 mmol/l 8-16 [facility], [address] [place] [address] 89054 Anion Gap August 09, 2020 7:35pm 10 mmol/l 8-16 [facility], [address] [place] [address] 70433 Anion Gap August 03, 2020 2:35pm 12 mmol/l 8-16 [facility], [address] [place] [address] [id number] Anion Gap July 01, 2020 9:40pm 13 mmol/l 8-16 [facility], [address] [place] [address] 25471 Anion Gap May 18, 2020 6:17am 9 mmol/l 8-16 [facility], [address] [place] [address] 35784 Anion Gap March 25, 2020 8:11am 9 mmol/l 8-16 [facility], [address] [place] [address] 08837 Anion Gap March 11, 2020 12:14pm 13 mmol/l 8-16 [facility], [address] [place] [address] 40265 Anion Gap March 02, 2020 11:00am 12 mmol/l 8-16 [facility], [address] [place] [address] 30371 Anion Gap February 26, 2020 10:02am 13 mmol/l 8-16 [facility], [address] [place] [address] 16185 Anion Gap February 20, 2020 8:35am 13 mmol/l -16 [facility], [address] [place] [address] 74231 Glucose Level August 30, 2020 8:15pm 90 mg/dL 74-106 [facility], [address] [place] [address] 29046 Glucose Level August 09, 2020 7:35pm 89 mg/dL 74-106 [facility], [address] [place] [address] 85248 Glucose Level August 03, 2020 2:35pm 87 mg/dL 74-106 [facility], [address] [place] [address] 03111 Glucose Level July 01, 2020 9:40pm 100 mg/dL 74-106 [facility], [address] [place] [address] 97849 Glucose Level May 18, 2020 6:17am 93 mg/dL 74-106 [facility], [address] [place] [address] 34900 Glucose Level March 25, 2020 8:11am 93 mg/dL 74-106 [facility], [address] [place] [address] 79731 Glucose Level March 11, 2020 12:14pm 88 mg/dL 74-106 [facility], [address] [place] [address] 16538 Glucose Level March 02, 2020 11:00am 91 mg/dL 74-106 [facility], [address] [place] [address] [id number] Glucose Level February 26, 2020 10:02am 92 mg/dL 74-106 [facility], [address] [place] [address] 61519 Glucose Level February 20, 2020 8:35am 98 mg/dL 74-106 [facility], [address] [place] [address] 32030 Creatinine August 30, 2020 8:15pm 1.1 mg/dL 0.5-1.1 [facility], [address] [place] [address] 31794 Creatinine August 09, 2020 7:35pm 1.3 mg/dL 0.5-1.1 [facility], [address] [place] [address] 50231 Creatinine August 03, 2020 2:35pm 0.8 mg/dL 0.5-1.1 [facility], [address] [place] [address] [id number] Creatinine July 01, 2020 9:40pm 0.9 mg/dL 0.5-1.1 [facility], [address] [place] [address] Creatinine May 18, 2020 6:17am 0.7 mg/dL 0.5-1.1 [facility], [address] [place] [address] Creatinine March 25, 2020 8:11am 0.9 mg/dL 0.5-1.1 [facility], [address] [place] [address] Creatinine March 11, 2020 12:14pm 1.2 mg/dL 0.5-1.1 [facility], [address] [place] [address] Creatinine March 02, 2020 11:00am 1.0 mg/dL 0.5-1.1 [facility], [address] [place] [address] Creatinine February 26, 2020 10:02am 1.0 mg/dL 0.5-1.1 [facility], [address] [place] [address] Creatinine February 20, 2020 8:35am 1.1 mg/dL 0.5-1.1 [facility], [address] [place] [address] Glomerular Filtration Rate Calc Lukas krystina 2020 8:15pm 60 ml/min ABOVE 60 [facility], [address] [place] [address] Glomerular Filtration Rate Calc Dece [email or web address] 7:35pm 50 ml/min ABOVE 60 [facility], [address] [place] [address] Glomerular Filtration Rate Calc Dece mb2019 2:35pm Greater than 60 ml/min ABOVE 60 [facility], [address] [place] [address] Glomerular Filtration Rate Calc Nove mber 2019 9:40pm Greater than 60 ml/min ABOVE 60 [facility], [address] [place] [address] Glomerular Filtration Rate Calc Sept emb2019 6:17am Greater than 60 ml/min ABOVE 60 [facility], [address] [place] [address] Glomerular Filtration Rate Calc Augu st 2019 8:11am Greater than 60 ml/min ABOVE 60 [facility], [address] [place] [address] Glomerular Filtration Rate Calc March 11, 2020 12:14pm 55 ml/min ABOVE 60 [facility], [address] [place] [id number] Glomerular Filtration Rate Calc March 02, 2020 11:00am Greater than 60 ml/min ABOVE 60 [facility], [address] [place] [address] Glomerular Filtration Rate Calc February 26, 2020 10:02am Greater than 60 ml/min ABOVE 60 [facility], [address] [place] [address] Glomerular Filtration Rate Calc February 20, 2020 8:35am Greater than 60 ml/min ABOVE 60 [facility], [address] [place] [address] [id number] Alanine Aminotransferase (ALT/SGPT) August 09, 2020 7:35pm 30 U/L 10-49 [facility], [address] [place] [address] Alanine Aminotransferase (ALT/SGPT) August 03, 2020 2:35pm 42 U/L 10-49 [facility], [address] [place] [address] [id number] Alanine Aminotransferase (ALT/SGPT) July 01, 2020 9:40pm 43 U/L 10-49 [facility], [address] [place] [address] Alanine Aminotransferase (ALT/SGPT) May 18, 2020 6:17am 52 U/L 10-49 [facility], [address] [place] [address] [id number] Alanine Aminotransferase (ALT/SGPT) March 25, 2020 8:11am 27 U/L 10-49 [facility], [address] [place] [address] [id number] Alanine Aminotransferase (ALT/SGPT) March 11, 2020 12:14pm 29 U/L 10-49 [facility], [address] [place] [address] [id number] Alanine Aminotransferase (ALT/SGPT) March 02, 2020 11:00am 29 U/L 10-49 [facility], [address] [place] [address] [id number] Alanine Aminotransferase (ALT/SGPT) February 26, 2020 10:02am 33 U/L 10-49 [facility], [address] [place] [address] Alanine Aminotransferase (ALT/SGPT) February 20, 2020 8:35am 42 U/L 10-49 [facility], [address] [place] [address] [id number] Aspartate Amino Transf (AST/SGOT) 2019 7:35pm 13 U/L 0-33 [facility], [address] [place] [address] [id number] Aspartate Amino Transf (AST/SGOT) De ber 2019 2:35pm 35 U/L 0-33 [facility], [address] [place] [address] [id number] Aspartate Amino Transf (AST/SGOT) No vember 2019 9:40pm 21 U/L 0-33 [facility], [address] [place] [address] [id number] Aspartate Amino Transf (AST/SGOT) Se ptember 2019 6:17am 27 U/L 0-33 [facility], [address] [place] [address] [id number] Aspartate Amino Transf (AST/SGOT) Au kem 2019 8:11am 15 U/L 0-33 [facility], [address] [place] [address] [id number] Aspartate Amino Transf (AST/SGOT) Ju ly 2019 12:14pm 17 U/L 0-33 [facility], [address] [place] [address] [id number] Aspartate Amino Transf (AST/SGOT) Ju ly 2019 11:00am 14 U/L 0-33 [facility], [address] [place] [address] [id number] Aspartate Amino Transf (AST/SGOT) Ju ly 2019 10:02am 17 U/L 0-33 [facility], [address] [place] [address] [id number] Aspartate Amino Transf (AST/SGOT) Ju ne 2019 8:35am 23 U/L 0-33 [facility], [address] [place] [address] [id number] Alkaline Phosphatase August 09, 2020 7:35pm 122 U/L 45-129 [facility], [address] [place] [address] [id number] Alkaline Phosphatase August 03, 2020 2:35pm 125 U/L 45-129 [facility], [address] [place] [address] 04728 Alkaline Phosphatase July 01 020 9:40pm 139 U/L 45-129 [facility], [address] [place] [address] 27988 Alkaline Phosphatase May 18, 2020 6:17am 110 U/L 45-129 [facility], [address] [place] [address] 59965 Alkaline Phosphatase March 25 8:11am 122 U/L 45-129 [facility], [address] [place] [address] 22522 Alkaline Phosphatase March 11, 2020 12:14pm 129 U/L 45-129 [facility], [address] [place] [address] 89924 Alkaline Phosphatase March 02, 2020 11:00am 136 U/L 45-129 [facility], [address] [place] [address] 48475 Alkaline Phosphatase February 26, 2020 10:02a m 147 U/L 45-129 [facility], [address] [place] [address] 94173 Alkaline Phosphatase February 20, 2020 8:35a m 149 U/L 45-129 [facility], [address] [place] [address] 73050 Amylase Level August 09, 2020 7:35pm 39 U/L 30-118 [facility], [address] [place] [address] 63318 Amylase Level August 03, 2020 2:35pm 31 U/L 30-118 [facility], [address] [place] [address] 10197 Amylase Level May 17, 2020 7:20pm 39 U/L 30-118 [facility], [address] [place] [address] 15729 Amylase Level March 25, 2020 8:11am 35 U/L 30-118 [facility], [address] [place] [address] 43133 Lipase August 09, 2020 7:35pm 90 U/L 73-393 [facility], [address] [place] [address] 99539 Lipase August 03, 2020 2:35pm 68 U/L 73-393 [facility], [address] [place] [address] 99205 Lipase May 17, 2020 7:20pm 89 U/L 73-393 [facility], [address] [place] [address] 47724 Lipase March 25, 2020 8:11am 97 U/L 73-393 [facility], [address] [place] [address] 24281 Lipase March 11, 2020 12:14pm 128 U/L 73-393 [facility], [address] [place] [address] 68026 Calcium Level August 30, 2020 8:15pm 9.6 mg/dL 8.5-10.1 [facility], [address] [place] [address] 80616 Calcium Level August 09, 2020 7:35pm 9.5 mg/dL 8.5-10.1 [facility], [address] [place] [address] 84504 Calcium Level August 03, 2020 2:35pm 9.1 mg/dL 8.5-10.1 [facility], [address] [place] [address] 26032 Calcium Level July 01, 2020 9:40pm 9.2 mg/dL 8.5-10.1 [facility], [address] [place] [address] 71327 Calcium Level May 18, 2020 6:17am 8.5 mg/dL 8.5-10.1 Delta: 9.6 on 05/17/20-2019Repeated by: Roderick Cee 05/18/20 0824.Result Confirmation: 8.3 # mg/dL [facility], [address] [place] [address] 82789 Calcium Level March 25, 2020 8:11am 8.9 mg/dL 8.5-10.1 [facility], [address] [place] [address] 75255 Calcium Level March 11, 2020 12:14pm 8.6 mg/dL 8.5-10.1 [facility], [address] [place] [address] 62727 Calcium Level March 02, 2020 11:00am 9.0 mg/dL 8.5-10.1 [facility], [address] [place] [address] 20639 Calcium Level February 26, 2020 10:02am 9.0 mg/dL 8.5-10.1 [facility], [address] [place] [address] 81845 Calcium Level February 20, 2020 8:35am 9.4 mg/dL 8.5-10.1 [facility], [address] [place] [address] 08126 Total Bilirubin August 09, 2020 7:35pm 0.3 mg/dL 0.3-1.2 [facility], [address] [place] [address] 38133 Total Bilirubin August 03, 2020 2:35pm 0.4 mg/dL 0.3-1.2 [facility], [address] [place] [address] 05528 Total Bilirubin July 01, 2020 9:40pm 0.3 mg/dL 0.3-1.2 [facility], [address] [place] [address] 52048 Total Bilirubin May 18, 2020 6:17a m 0.3 mg/dL 0.3-1.2 [facility], [address] [place] [address] 28642 Total Bilirubin March 25, 2020 8:11am 0.2 mg/dL 0.3-1.2 [facility], [address] [place] [address] 46880 Total Bilirubin March 11, 2020 12:14pm 0.2 mg/dL 0.3-1.2 [facility], [address] [place] [address] 02900 Total Bilirubin March 02, 2020 11:00am 0.4 mg/dL 0.3-1.2 [facility], [address] [place] [address] 64416 Total Bilirubin February 26, 2020 10:02am 0.3 mg/dL 0.3-1.2 [facility], [address] [place] [address] Total Bilirubin February 20, 2020 8:35am 0.3 mg/dL 0.3-1.2 [facility], [address] [place] [address] 09695 Albumin August 09, 2020 7:35pm 3.6 g/dL 3.2-4.8 [facility], [address] [place] [address] 87423 Albumin August 03, 2020 2:35pm 3.5 g/dL 3.2-4.8 [facility], [address] [place] [address] 71771 Albumin July 01, 2020 9:40pm 3.5 g/dL 3.2-4.8 [facility], [address] [place] [address] 96955 Albumin May 18, 2020 6:17am 3.0 g/dL 3.2-4.8 [facility], [address] [place] [address] 02022 Albumin March 25, 2020 8:11am 3.0 g/dL 3.2-4.8 [facility], [address] [place] [address] 89952 Albumin March 11, 2020 12:14pm 3.2 g/dL 3.2-4.8 [facility], [address] [place] [address] 42536 Albumin March 02, 2020 11:00am 3.1 g/dL 3.2-4.8 [facility], [address] [place] [address] 83668 Albumin February 26, 2020 10:02am 3.4 g/dL 3.2-4.8 [facility], [address] [place] [address] 97112 Albumin February 20, 2020 8:35am 3.5 g/dL 3.2-4.8 [facility], [address] [place] [address] 08759 Serum Total Protein August 09 020 7:35pm 8.2 g/dL 5.7-8.2 [facility], [address] [place] [address] Serum Total Protein August 03 020 2:35pm 8.1 g/dL 5.7-8.2 [facility], [address] [place] [address] Serum Total Protein July 01 9:40pm 8.0 g/dL 5.7-8.2 [facility], [address] [place] [address] Serum Total Protein May 18, 2020 6:17am 6.6 g/dL 5.7-8.2 [facility], [address] [place] [address] Serum Total Protein March 25, 2020 8:11a m 7.7 g/dL 5.7-8.2 [facility], [address] [place] [address] Serum Total Protein March 11, 2020 12:14p m 7.6 g/dL 5.7-8.2 [facility], [address] [place] [address] Serum Total Protein March 02, 2020 11:00a m 7.9 g/dL 5.7-8.2 [facility], [address] [place] [address] Serum Total Protein February 26, 2020 10:02am 7.6 g/dL 5.7-8.2 [facility], [address] [place], [place] [address] Serum Total Protein February 20, 2020 8:35am 7.9 g/dL 5.7-8.2 [facility], [address] [place] [address] 82415 Lactic Acid Level July 01, 2020 9:40p m 1.0 mmol/L 0.5-2.2 [facility], [address] [place] [address] 19329 Human Chorionic Gonadotropin, Quant August 09, 2020 7:35pm 31686 mIU/mL 0-10 APPROXIMATE GESTATION AGE APRROX IMATE HCG RANGE 0-1 WEEK 0 - 50 1-2 WEEKS 40 - 300 2-3 WEEKS 100 - 1,000 3-4 WEEKS 500 - 6,000 1-2 MONTHS 5,000 - 200,000 2-3 MONTHS 10,000 - 100,000 2ND TRIMESTER 3,000 - 50,000 3RD TRIMESTER 1,000 - 50,000 [facility], [address] [place] [address] 66473 Human Chorionic Gonadotropin, Quant August 14, 2020 9:31am 09799 mIU/mL 0-10 APPROXIMATE GESTATION AGE APRROX IMATE HCG RANGE 0-1 WEEK 0 - 50 1-2 WEEKS 40 - 300 2-3 WEEKS 100 - 1,000 3-4 WEEKS 500 - 6,000 1-2 MONTHS 5,000 - 200,000 2-3 MONTHS 10,000 - 100,000 2ND TRIMESTER 3,000 - 50,000 3RD TRIMESTER 1,000 - 50,000 [facility], [address] [place] [address] 13461 Human Chorionic Gonadotropin, Quant August 03, 2020 2:35pm 41222 mIU/mL 0-10 APPROXIMATE GESTATION AGE APRROX IMATE HCG RANGE 0-1 WEEK 0 - 50 1-2 WEEKS 40 - 300 2-3 WEEKS 100 - 1,000 3-4 WEEKS 500 - 6,000 1-2 MONTHS 5,000 - 200,000 2-3 MONTHS 10,000 - 100,000 2ND TRIMESTER 3,000 - 50,000 3RD TRIMESTER 1,000 - 50,000 [facility], [address] [place] [address] 93940 Human Chorionic Gonadotropin, Quant July 01, 2020 10:10am Less than 1 mIU/mL 0-1 0 APPROXIMATE GESTATION AGE APRROX IMATE HCG RANGE 0-1 WEEK 0 - 50 1-2 WEEKS 40 - 300 2-3 WEEKS 100 - 1,000 3-4 WEEKS 500 - 6,000 1-2 MONTHS 5,000 - 200,000 2-3 MONTHS 10,000 - 100,000 2ND TRIMESTER 3,000 - 50,000 3RD TRIMESTER 1,000 - 50,000 [facility], [address] [place] [address] 32529 Thyroid Stimulating Hormone (TSH) Ju ly 2019 10:02am 1.84 uIU/mL 0.35-5.50 [facility], [address] [place] [address] 99832 Serum Test, Qualitative De cember 2019 2:35pm Positive NEGATIVE [facility], [address] [place] [address] 14405 Serum Test, Qualitative No vember 2019 9:40pm Negative NEGATIVE [facility], [address] [place] [address] 77316 Serum Test, Qualitative Se pt2019 7:20pm Negative NEGATIVE [facility], [address] [place] [address] 98145 Serum Test, Qualitative Au kem 2019 8:11am Negative NEGATIVE [facility], [address] [place] [address] 09645 Urine HCG, Qualitative March 11 11:00am Negative NEGATIVE [facility], [address] [place] [address] 19109 Urine HCG, Qualitative March 02 11:00am Negative NEGATIVE [facility], [address] [place] [address] 18684 Urine HCG, Qualitative February 19 8:32am Negative NEGATIVE [facility], [address] [place] [address] 65271 Coronavirus (COVID-19)(PCR) March 252019 2:30pm Not detected Not Detec dee This test was developed and its performa nce characteristicsdetermined by [employer]. This test has not beenFDA cleared or [...] (not detected) result in this assay.Performed at: [address] [id number] Director: Deisy Hdez MD, Phone: [phone] [facility] , [address] [facility] [id number] Urine Random Creatinine Rakel 8th, 20 20 7:19am 234.0 mg/dL THERE IS NO ESTABLISHED RANGE FOR RANDOM URINE CREATININE [facility], [address] [place] [address] Urine Microalbumin February 28, 2020 7:19am 13.7 mg/L 0.0-29.9 [facility], [address] [place] [address] Urine Microalbumin/Creatinine Ratio February 28, 2020 7:19am 5.8 ug/mg 0.0-30.0 [facility], [address] [place] [address] Hemoglobin A1c February 26, 2020 10:02am 5.3 [...] glucose control. * High risk of developing superintendent terminal complications such asretinopathy, nephropathy, neuropathy, cardiopathy, etc. Some danger of hypoglycemic reaction in Type I diabetics.Some glucose intolerant individuals and "Sub Clinical"diabetics may demonstrate HGBA1C levels in this area. [facility], [address] [place] [address] Estimated Average Glucose (eAG) February 26, 2020 10:02am 105 mg/dl An A1C of 7% - the goal of diabetic therapy - is equivalentto an EAG of 154 mg/dl. [facility], [address] [place] [address] 50656 Microbiology Results Procedure Source Result Collection Date/Time Result Date/Time Result Comment Performing Site Urine Culture Urine,voided August 30, 2020 8:15pm August 2:09pm [facility], [address] [place] [address] 04604 Urine Culture Urine,voided August 09, 2020 8:06pm August 11, 2020 7:16am [facility], [address] [place] [address] Urine Culture Urine,clean catch August 03, 2020 2:50pm August 04, 2020 11:45am [facility], [address] [place] [address] 15381 Urine Culture Urine,voided July 01, 2020 9:30pm June 232019 7:24am [facility], [address] [place] [address] 91901 Urine Culture Urine,voided May 18, 2020 1:15am Septembe 2019 11:25am [facility], [address] [place] [address] 25534 Urine Culture Urine,clean catch March 25, 2020 9:05am March 26, 2020 1:36pm [facility], [address] [place] [address] 69529 Urine Culture Urine,clean catch March 11, 2020 12:00pm March 12, 2 020 1:24pm [facility], [address] [place] [address] 42133 Urine Culture Urine,voided March 05, 2020 3:29pm March 06 9:18am [facility], [address] [place] [address] 37454 Urine Culture Urine,voided March 02, 2020 11:48am March 03, 2 020 8:26am [facility], [address] [place] [address] 62392 Streptococcus Rapid Screen Throat March 13, 2020 10:34am March 14, 2 020 8:58am [facility], [address] [place] [address] 67158 Streptococcus Rapid Screen Throat March 13, 2020 10:34am March 13, 2 020 11:04am [facility], [address] [place] [address] 70246 Blood Culture Venous blood No growth. July 01, 2020 9:40pm June 232019 9:46pm [facility], [address] [place] [address] 64867 SARS-CoV-2 (PCR) Interpretation Naso pharyngeal No Organisms Detected July 01, 2020 9:45pm July 01, 2020 10:29pm [facility], [address] [place] [address] 15756 Nasal BinaxNow Covid - 19 Ag Negative July 30, 2020 9:45am July 302019 11:56am [facility], [address] [place] [address] 51708 Influenza-Like Illness (PCR) Nasopharyngea l No Organisms Detected August 22, 2020 6:22am August 22, 2020 7:41am [facility], [address] [place] [address] 36927 Nasopharyngeal August 22, 2020 6:22am August 22, 2020 7:41am [facility], [address] [place] [address] 41817 Gastrointestinal Tract Panel (PCR) Stool C. difficile toxin detected May 17, 2020 3:03pm May 17, 2020 5:25pm [facility], [address] [facility] [address]321 Respiratory Panel (PCR) Nasopharyngeal No Organisms Detected May 18, 2020 1:40am May 18, 2020 2:49am [facility], [address] [facility] [address] Diagnostic Imaging Reports Report Dictated Date/Time Dictated By Status Radiology Report February 28, 2020 9:48am Oliverio Chen MD completed [place] [address] [place] [address] [phone] NAME SEX PT STATUS ACCOUNT NUMBER ANNA MARIE BELTRAN REG REF [id number] ORDERING PHYSICIAN LOCATION MEDICAL RECORD NO. Jose Kramer DO [id number] ATTENDING PHYSICIAN DATE OF DATE OF EXAM/TIME [...] 02/28/2048 Signed By Oliverio Chen MD on 02/28/20951 Date Time CC: Jose Kramer DO; Oliverio Chen MD Techn: BUSMI Trans Dt/Tm: Trans by: DT Prt Dt/Tm: : Total DLP = 0.00 mGy-cm : Total Radiation Dose = 0.0000 mSv Lifetime Dose: 0 mSv Radiology Report March 02, 2020 1:53pm Warren Bourne MD completed [place] [address] [place] [address] [phone] NAME SEX PT STATUS ACCOUNT NUMBER ANNA MARIE BELTRAN [facility] [id number] ORDERING PHYSICIAN LOCATION MEDICAL RECORD NO. Sameer Islas MD ER [id number] ATTENDING PHYSICIAN DATE OF DATE OF EXAM/TIME [...] 12, 2020 2:59pm Oliverio Chen MD completed [facility] [address] [place] [address] [phone] NAME SEX PT STATUS ACCOUNT NUMBER ANNA MARIE BELTRAN REG REF [id number] ORDERING PHYSICIAN LOCATION MEDICAL RECORD NO. Pola Meadows MD [id number] ATTENDING PHYSICIAN DATE OF DATE OF EXAM/TIME [...] 25, 2020 10:18am Oliverio Chen MD completed [facility] [address] [place] [address] [phone] NAME SEX PT STATUS ACCOUNT NUMBER ANNA MARIE BELTRAN [facility] ER [id number] ORDERING PHYSICIAN LOCATION MEDICAL RECORD NO. Hiren Perez MD ER [id number] ATTENDING PHYSICIAN DATE OF DATE OF EXAM/TIME [...] Trans Dt/Tm: Trans by: DT Prt Dt/Tm: [id number]: Total DLP = 0.00 mGy-cm Fluoroscopy Time (in secs): Radiology Report May 17 9:41pm Ulisses Sethi MD completed [place] [address] [place] [address] [phone] NAME SEX PT STATUS ACCOUNT NUMBER ANNA MARIE BELTRAN [facility] [id number] ORDERING PHYSICIAN LOCATION MEDICAL RECORD NO. Mikhail Sheriff MD ER [id number] ATTENDING PHYSICIAN DATE OF DATE OF EXAM/TIME [...] 2020 10:55p m Telly Robledo MD completed [facility] [address] [facility] [address] [place] [address] [phone] NAME SEX PT STATUS ACCOUNT NUMBER ANNA MARIE BELTRAN [facility] ER [id number] ORDERING PHYSICIAN LOCATION MEDICAL RECORD NO. Mikhail Sheriff MD ER [id number] ATTENDING PHYSICIAN DATE OF DATE OF EXAM/TIME [...] Trans Dt/Tm: Trans by: DT Prt Dt/Tm: [id number]: Total DLP = 0.00 mGy-cm Fluoroscopy Time (in secs): Radiology Report July 01, 2020 11:07p m [place] [address] [phone] NAME SEX PT STATUS ACCOUNT NUMBER ANNA MARIE BELTRAN [facility] [id number] ORDERING PHYSICIAN LOCATION MEDICAL RECORD NO. Mikhail Sheriff MD [id number] ATTENDING PHYSICIAN DATE OF DATE OF EXAM/TIME [...] MD Techn: [id number] Trans Dt/Tm: Trans by: LUPIS Prt Dt/Tm: : Total DLP = 1469.00 mGy-cm : Total Radiation Dose = 22.0350 mSv Lifetime Dose: 56.7900 mS v Radiology Report August 03, 2020 7:33p m Gibran Villa MD completed [facility] [address] [place] [address] [phone] NAME SEX PT STATUS ACCOUNT NUMBER ANNA MARIE BELTRAN [facility] [id number] ORDERING PHYSICIAN LOCATION MEDICAL RECORD NO. Daljit Alex MD ER [id number] ATTENDING PHYSICIAN DATE OF DATE OF EXAM/TIME [...] 2020 7:59p m Telly Robledo MD completed [facility] [address] [place] [address] [phone] NAME SEX PT STATUS ACCOUNT NUMBER ANNA MARIE BELTRAN [facility] ER [id number] ORDERING PHYSICIAN LOCATION MEDICAL RECORD NO. Daljit Alex MD ER [id number] ATTENDING PHYSICIAN DATE OF DATE OF EXAM/TIME [...] Trans Dt/Tm: Trans by: DT Prt Dt/Tm: 4507-0090: Total DLP = 0.00 mGy-cm 9025-1751: Total Radiation Dose = 0.0000 mSv Lifetime Dose: 56.7900 mSv Radiology Report August 03, 2020 7:34p m Gibran Villa MD [place] [address] [place] [address] [phone] NAME SEX PT STATUS ACCOUNT NUMBER ANNA MARIE BELTRAN [facility] ER [id number] ORDERING PHYSICIAN LOCATION MEDICAL RECORD NO. Daljit Alex MD ER [id number] ATTENDING PHYSICIAN DATE OF DATE OF EXAM/TIME Nicol Sebastian HEADER SET UP OPERATOR 1995 08/03/201858 TYPE / EXAM US OB Ultrasound <14 weeks REASON FOR EXAM RLQ PAIN; R/O ECTOPIC [place] [address] [place] [address] [phone] NAME SEX PT STATUS ACCOUNT NUMBER ANNA MARIE BELTRAN [facility] ER [id number] ORDERING PHYSICIAN LOCATION MEDICAL RECORD NO. Daljit Alex MD ER [id number] ATTENDING PHYSICIAN DATE OF DATE OF EXAM/TIME RomuloMauraNicol HEADER SET UP OPERATOR 1994 08/03/201857 TYPE / EXAM US OB [...] 2020 9:02p m Telly Robledo MD completed [facility] [address] [place] [address] [phone] NAME SEX PT STATUS ACCOUNT NUMBER ANNA MARIE BELTRAN [facility] [id number] ORDERING PHYSICIAN LOCATION MEDICAL RECORD NO. Mikhail Sheriff MD ER [id number] ATTENDING PHYSICIAN DATE OF DATE OF EXAM/TIME Nicol Sebastian NP 1995 08/09/202038 TYPE / EXAM US OB Ultrasound <14 weeks REASON FOR EXAM Gen abd pain. +HCG ANNA MARIE BELTRAN [id number] 1995 ADDENDUM Clinical History/Indication for Exam: Gen [...] Trans Dt/Tm: Trans by: DT Prt Dt/Tm: [id number]: Total DLP = 0.00 mGy-cm 1156-4741: Total Radiation Dose = 0.0000 mSv Lifetime Dose: 56.7900 mSv Radiology Report August 14, 2020 11:09am Oliverio Chen MD completed [place] [address] [place] [address] [phone] NAME SEX PT STATUS ACCOUNT NUMBER ANNA MARIE BELTRAN REG REF [id number] ORDERING PHYSICIAN LOCATION MEDICAL RECORD NO. Jarret Herbert MD [id number] ATTENDING PHYSICIAN DATE OF DATE OF EXAM/TIME Nicol Sebastian NP 1995 08/14/20915 TYPE / EXAM US OB Ultrasound <14 weeks REASON FOR EXAM FOLLOW UP SUBCHOR/ EARLY COMPARISON: August 19, 2020 and 2019 FINDINGS: Gestation: Single [place]-rump length: Singlemm compatible with a Single week Single day gestational age. Yolk sac: Not seen No heart rate detected. Uterus: 8.5 x 4.6 x 7.0cm. A subchorionic hemorrhage is still seen. Average ultrasound age of 5 weeks 6 days. EDC: April 10, 2021. [place]-rump length: 3.4mm IMPRESSION: 1. Gestational sac measurements, unchanged. 2. Subarachnoid hemorrhage is still seen. 3. Linear intraamniotic echogenicity, possibly the pole. No heart rate detected. Reported By Oliverio Chen MD on 08/14/20 1109 Signed By Oliverio Chen MD on 08/14/20 1114 Date Time CC: Nicol Sebastian; Oliverio Chen MD Techn: FREST Trans Dt/Tm: Trans by: DT Prt Dt/Tm: 8743-1382: Total DLP = 0.00 mGy-cm 4652-6701: Total Radiation Dose = 0.0000 mSv Lifetime Dose: 56.7900 mSv Radiology Report August 09, 2020 9:05p m Telly Robledo MD completed [address] [address] [phone] NAME SEX PT STATUS ACCOUNT NUMBER ANNA MARIE BELTRAN [facility] ER [id number] ORDERING PHYSICIAN LOCATION MEDICAL RECORD NO. Mikhail Sheriff MD ER [id number] ATTENDING PHYSICIAN DATE OF DATE OF EXAM/TIME Nicol Sebastian NP 1995 08/09/202039 TYPE / EXAM US OB Transvaginal REASON FOR EXAM PAIN [address] [address] [phone] NAME SEX PT STATUS ACCOUNT NUMBER ANNA MARIE BELTRAN [facility] ER [id number] ORDERING PHYSICIAN LOCATION MEDICAL RECORD NO. Mikhail Sheriff MD ER [id number] ATTENDING PHYSICIAN DATE OF DATE OF EXAM/TIME Nicol Sebastian NP 1994 08/09/202038 TYPE / EXAM US OB Ultrasound <14 weeks REASON FOR EXAM Gen abd pain. +HCG ANNA MARIE BELTRAN [id number] 1995 ADDENDUM Clinical History/Indication for Exam: Gen [...] Trans Dt/Tm: Trans by: DT Prt Dt/Tm: 9931-5907: Total DLP = 0.00 mGy-cm 6633-5044: Total Radiation Dose = 0.0000 mSv Lifetime Dose: 56.7900 mSv Reported By Telly Robledo MD on 08/09/202104 Signed By Telly Robledo MD on 08/14/201244 Date Time CC: Nicol Sebastian; Telly Robledo MD Techn: CARAI Trans Dt/Tm: Trans by: DT Prt Dt/Tm: 9945-0757: Total DLP = 0.00 mGy-cm 8840-2007: Total Radiation Dose = 0.0000 mSv Lifetime Dose: 56.7900 mSv Radiology Report August 21, 2020 10:47am Oliverio Chen MD completed [facility] [address] [place] [id number] [phone] NAME SEX PT STATUS ACCOUNT NUMBER ANNA MARIE BELTRAN [facility] REF [id number] ORDERING PHYSICIAN LOCATION MEDICAL RECORD NO. Jarret Herbert MD [id number] ATTENDING PHYSICIAN DATE OF DATE OF EXAM/TIME Nicol Sebastian NP 1994 08/21/201016 TYPE / EXAM US OB Transvaginal REASON FOR EXAM EVAL FOR IUP COMPARISON: August 14, 2020. FINDINGS: Gestation: Single [place]-rump length: No pole seen. Gestational sac: 13.4 [...] Ocampo Dt/Tm: Trans by: DT Prt Dt/Tm: 1514-0530: Total DLP = 0.00 mGy-cm 8577-1568: Total Radiation Dose = 0.0000 mSv Lifetime Dose: 56.7900 mSv Radiology Report August 21, 2020 10:47am Oliverio Chen MD completed [facility] [address] [facility] [address] [place] [id number] [phone] NAME SEX PT STATUS ACCOUNT NUMBER ANNA MARIE BELTRAN PRE REF [id number] ORDERING PHYSICIAN LOCATION MEDICAL RECORD NO. Jarret Herbert MD [id number] ATTENDING PHYSICIAN DATE OF DATE OF EXAM/TIME Nicol Sebastian NP 1994 08/21/20 / 1017 TYPE / EXAM US OB Ultrasound <14 weeks REASON FOR EXAM Re-evaluation for subchor. COMPARISON: August 14, 2020. FINDINGS: Gestation: Single [place]-rump length: No pole seen. Gestational sac: 13.4 [...] PAIN ABDOMINAL PAIN, BLOOD IN URINE/STOOL PAIN BOAT TENDER Initial Visit Hernia BOAT TENDER SUBCHORIONIC BLEED O02.1/SUCTION D+C 97913 BOAT TENDER Post op care ABDOMINAL PAIN Telemed Visit BOAT TENDER Office Visit BOAT TENDER Post op care Reason for Visit Anxiety Depression GERD (gastroesophageal [...] rival/Admit Date Discharge/Depart Date Provider(s) Registered Referred [facility] February 20, 2020 8:12am Bianka Sen MD Departed Physician/Provider Office Visit [facility] February 20, 2020 10:22am February 20, 2020 11:42am Cesario Metcalf Registered Referred [facility] February 26, 2020 9:54am Jose Kramer DO Registered Referred [facility]-Ultrasound February 28, 2020 6:57am Jose Kramer DO Departed Emergency [facility] ER March 02, 2020 10:34am March 02, 2020 1:45pm null Departed Emergency [facility] March 05, 2020 2:01pm March 05, 2020 4:29pm null Departed Physician/Provider Office Visit [facility] March 11, 2020 9:28am March 11, 2020 10:13am Trice dimas NP Departed Physician/Provider Office Visit [facility] March 11, 2020 10:17am March 11, 2020 11:49am Pola Meadows MD Registered Referred [facility] March 11, 2020 11:56am Trice Aj NP Registered Referred [facility] March 12, 2020 11:38am Pola Meadows MD Departed Physician/Provider Office Visit [facility] March 12, 2020 12:22pm March 12, 2020 2:13pm Trice holbrook NP Departed Emergency [facility] March 13, 2020 9:18am March 13, 2020 10:18am null Departed Emergency [facility] March 25, 2020 7:55am March 25, 2020 9:27am null Departed Physician/Provider Office Visit [facility] March 25, 2020 2:51pm March 25, 2020 2:52pm Nathalie valerio Registered Referred [facility]-Lab Drop Off March 25, 2020 3:08pm Nathalie Pace Departed Physician/Provider Office Visit [facility] March 28, 2020 7:01am March 28, 2020 7:47am Trice dimas NP Registered Outpatient [facility] April 05, 2020 8:29am Trice Aj NP Registered Referred [facility] May 17, 2020 1:48pm Trice Aj NP Discharged Inpatient [facility] May 18, 2020 12:18am [facility] 2:40pm Tad Menendez MD Registered Outpatient [facility] May 20, 2020 2:25pm Amara Garcia RN Departed Physician/Provider Office Visit [facility] May 23, 2020 7:51am May 23, 2020 8:35am Trice Aj NP Departed Physician/Provider Office Visit [facility] May 30, 2020 9:25am May 30, 2020 11:56am Nicol rincon NP Departed Physician/Provider Office Visit [facility] June 10, 2020 8:26am June 10, 2020 8:58am Jarret Herbert MD Departed Physician/Provider Office Visit [facility] June 28, 2020 3:47pm June 28, 2020 4:33pm Nicol Sebastian NP Departed Physician/Provider Office Visit [facility] July 01, 2020 9:04am July 01, 2020 11:04am Nicol Sebastian NP Registered Referred [facility] July 01, 2020 9:47am Kiersten Schulz DO Departed Emergency [facility] July 01, 2020 8:40pm July 02, 2020 12:20am null Departed Physician/Provider Office Visit [facility] July 04, 2020 11:14am July 04, 2020 12:47pm Nicol Sebastian NP Departed Physician/Provider Office Visit [facility] July 25, 2020 9:54am July 25, 2020 10:57am Nicol Sebastian NP Registered Referred [facility] July 30, 2020 9:45am Jaki Elias MD Departed Emergency [facility] August 03, 2020 1:29pm August 03, 2020 8:21pm null Departed Emergency [facility] August 09, 2020 6:19pm August 10, 2020 5:45am null Registered Referred [facility] August 14, 2020 9:29am Jarret Herbert MD Departed Physician/Provider Office Visit [facility] August 14, 2020 9:41am August 14, 2020 11:45am Patrick Herbert MD Departed Physician/Provider Office Visit [facility] August 20, 2020 9:00am August 20, 2020 9:20am Barrett Sparks MD Departed Physician/Provider Office Visit [facility] August 21, 2020 10:25am August 21, 2020 11:32am Jarret Herbert MD Registered Referred [facility] August 21, 2020 11:17am Jarret Herbert MD Departed Surgical Day Care [facility] August 22, 2020 6:20am August 22, 2020 10:05am Patrick Herbert MD Departed Physician/Provider Office Visit [facility] August 27, 2020 10:07am August 27, 2020 10:41am Jarret Herbert MD Departed Emergency [facility] August 30, 2020 6:50pm August 30, 2020 9:08pm null Departed Physician/Provider Office Visit [facility] September 02, 2020 10:06am September 02, 2020 4:34pm Jose Kramer DO Departed Physician/Provider Office Visit [facility] September 03, 2020 9:28am September 03, 2020 11:05am Jarret Herbert MD Departed Physician/Provider Office Visit [facility] September 05, 2020 11:10am September 05, 2020 11:48am Jarret Herbert MD Recent Diagnosis Onset Date [...] Response Neil e Recorded Functional Status Complete [place] May 18, 2020 1:30am Goals Goals may be documented in an alternate section. Immunizations No Immunization Information Available Mental Status Observation Response Neil e Recorded Cognitive Status Normal Cognition May 18, 2020 1:30am Impairments No impairments or barriers September 02, 2020 9:57am Medical Equipment No Medical Equipment Information available Insurance Providers Guarantor ANNA MARIE BELTRAN Address [address] [place] [address] Contact Info. Home Phone: Payer Policy Id Coverage Id Subscriber's Name Subscriber Id Effective Date Expiration Date [facility] [id number] ANNA MARIE BELTRAN [id number] [facility] [id number] ANNA MARIE BELTRAN [id number] MEDICAID [facility] [id number] ANNA MARIE BELTRAN [id number] MEDICAID [id number] ANNA MARIE BELTRAN [id number] Self Pay Self N/A Plan of Treatment f/u water attendant if condition worsens, then go to ER [...] aware of the patient as well. Awaiting enterprise mobility architect referral. Increase diet and exercise. Referral to [place] [facility] for chronic inflammation. Elevate legs. 26 [...] . July 26, 2020 for upper GI. [employer] rice, applesauce, bananas, and toast. Resolved. [...] that she has had counseling in the [facility], but symptoms are worse at this time, d/t recent move to [place]. Will continue current meds and will refer to psych. Sales Project Manager appt with behavioral health this week. [...] palpation without abnormal physical find ings. Doubt BOAT TENDER cause but send urine culture in case. [...] Information Provider Address Jarret Herbert MD Email: [email or web address] Phone: [phone] [phone] c diff - treated with PO vancomycin Trice dimas NP Email: [email or web address] Phone: [facility] [address] [facility] [phone] Call for an appointment to be seen in the next 48 hours Jose Kramer DO Email: [email or web address] Phone: [phone] [facility] [phone] Call for an appointment for follow-up for Wednesday or Wednesday Jose Kramer DO Email: [email or web address] Phone: [phone] [facility] [phone] R79.89 - Other specified abnormal findin gs of blood chemistry,N17.9 - Acute kidney failure, unspecified September 02, 2020 water attendant Future Procedures Future procedure information is unavailable [...] 25, 2020 8:56am Respiratory rate 20 /min 08-15March 25, 2020 8:56am Oxygen saturation by Pulse [...]
--- OUTSIDE RECORDS SUMMARY | 2020-10-18 09:46 | CCD | Continuity of Care Document ---
Author Author [facility] Address [address] [place] [address] Phone Support Name Relationship Address Phone Jose Kramer PRS [address] [place] [address] Polly Sen PRS [address] [place] [address] John Islas PRS [address] [place] [address] [place] [address] Pola Meadows [place] [address] Pola Meadows PRS [address] [place] [address] Hiren Perez PRS [address] [place] [address] Nathalie Pace PRS [address] [place] [address] Verónica Sheriff PRS [address] [place] [address] Tad Menendez PRS [address] [place] [address] Amara Garcia PRS Unknown Unavailable Nicol Sebastian PRS [address] [place] [address] Darnell Herbert PRS [address] [place] [address] Kiersten Schulz PRS [address] [place] [address] [place] [address] Daljit Alex PRS [address] [place] [address] Niels Valdez PRS [address] [place] [address] Barrett Sparks PRS [address] [place] [address] Dmitriy Peraza PRS [address] [place] [address] Allergies, Adverse Reactions, Alerts Allergen Type Severity [...] TAB PO daily August 27, 2020 10:45am Nitrofurantoin Monohyd/M-Cryst (Macrobid) 100 mg capsu le [...] 1 TAB PO 2 Times Per Day 14 March 23, 2020 3:04pm May 172019 4:42pm Benzonatate (Tessalon Perles) 100 mg capsule Discontinued 100 MG PO Three times a day 90 March 23, 2020 3:04pm May 17, 2020 [...] August 30, 2020 8:15pm 11.3 10e3/uL 4.45-10.71 [facility], [address] [place] [address] White Blood Count August 09 0 7:35pm 9.9 10e3/uL 4.45-10.71 [facility], [address] [place] [address] White Blood Count August 14 0 9:31am 9.8 10e3/uL 4.45-10.71 [facility], [address] [place] [address] White Blood Count August 03 0 2:35pm 8.6 10e3/uL 4.45-10.71 [facility], [address] [place] [address] White Blood Count July 01, 2020 9:40p m 11.2 10e3/uL 4.45-10.71 [facility], [address] [place] [address] White Blood Count May 18 6:17am 9.3 10e3/uL 4.45-10.71 [facility], [address] [place] [address] 19516 White Blood Count March 25, 2020 8:11am 10.8 10e3/uL 4.45-10.71 [facility], [address] [place] [address] 15213 White Blood Count March 11, 2020 12:14pm 11.3 10e3/uL 4.45-10.71 [facility], [address] [place] [address] White Blood Count March 02, 2020 11:00am 10.3 10e3/uL 4.45-10.71 [facility], [address] [place] [address] 53121 White Blood Count February 26, 2020 10:02am 9.8 10e3/uL 4.45-10.71 [facility], [address] [place] [address] 19504 White Blood Count February 20, 2020 8:35am 8.8 10e3/uL 4.45-10.71 [facility], [address] [place] [address] 89952 Red Blood Count August 30, 2020 8:15pm 4.26 10e6/uL 4.20-5.40 [facility], [address] [place] [address] 17158 Red Blood Count August 09, 2020 7:35pm 4.49 10e6/uL 4.20-5.40 [facility], [address] [place] [address] 53751 Red Blood Count August 14, 2020 9:31am 4.57 10e6/uL 4.20-5.40 [facility], [address] [place] [address] 00143 Red Blood Count August 03, 2020 2:35pm 4.47 10e6/uL 4.20-5.40 [facility], [address] [place] [address] 84111 Red Blood Count July 01, 2020 9:40pm 4.51 10e6/uL 4.20-5.40 [facility], [address] [place] [address] 09469 Red Blood Count May 18, 2020 6:17a m 4.10 10e6/uL 4.20-5.40 [facility], [address] [place] [address] 16073 Red Blood Count March 25, 2020 8:11am 4.25 10e6/uL 4.20-5.40 [facility], [address] [place] [address] 55880 Red Blood Count March 11, 2020 12:14pm 4.58 10e6/uL 4.20-5.40 [facility], [address] [place] [address] 54944 Red Blood Count March 02, 2020 11:00am 4.52 10e6/uL 4.20-5.40 [facility], [address] [place] [address] Red Blood Count February 26, 2020 10:02am 4.84 10e6/uL 4.20-5.40 [facility], [address] [place] [address] Red Blood Count February 20, 2020 8:35am 5.02 10e6/uL 4.20-5.40 [facility], [address] [place], [place] [phone] Hemoglobin August 30, 2020 8:15pm 10.5 g/dL 10.7-15.4 [facility], [address] [place] [address] 82792 Hemoglobin August 09, 2020 7:35pm 11.4 g/dL 10.7-15.4 [facility], [address] [place], [place] [phone] Hemoglobin August 14, 2020 9:31am 11.4 g/dL 10.7-15.4 [facility], [address] [place] [address] 54224 Hemoglobin August 03, 2020 2:35pm 11.5 g/dL 10.7-15.4 [facility], [address] [place], [place] [phone] Hemoglobin July 01, 2020 9:40pm 11.8 g/dL 10.7-15.4 [facility], [address] [place] [address] 70437 Hemoglobin May 18, 2020 6:17am 10.9 g/dL 10.7-15.4 [facility], [address] [place] [address] 61461 Hemoglobin March 25, 2020 8:11am 11.5 g/dL 10.7-15.4 [facility], [address] [place], [place] [phone] Hemoglobin March 11, 2020 12:14pm 12.4 g/dL 10.7-15.4 [facility], [address] [place] [address] Hemoglobin March 02, 2020 11:00am 12.1 g/dL 10.7-15.4 [facility], [address] [place] [address] 37119 Hemoglobin February 26, 2020 10:02am 13.0 g/dL 10.7-15.4 [facility], [address] [place] [address] Hemoglobin February 20, 2020 8:35am 13.4 g/dL 10.7-15.4 [facility], [address] [place] [address] 77539 Hematocrit August 30, 2020 8:15pm 34.4 % 37-47 [facility], [address] [place] [address] 40902 Hematocrit August 09, 2020 7:35pm 36.1 % 37-47 [facility], [address] [place] [address] 67773 Hematocrit August 14, 2020 9:31am 36.3 % 37-47 [facility], [address] [place] [address] 65761 Hematocrit August 03, 2020 2:35pm 36.1 % 37-47 [facility], [address] [place] [address] 39440 Hematocrit July 01, 2020 9:40pm 36.6 % 37-47 [facility], [address] [place] [address] 81649 Hematocrit May 18, 2020 6:17am 34.1 % 37-47 [facility], [address] [place] [address] 86965 Hematocrit March 25, 2020 8:11am 34.7 % 37-47 [facility], [address] [place] [address] 38500 Hematocrit March 11, 2020 12:14pm 37.2 % 37-47 [facility], [address] [place] [address] 83629 Hematocrit March 02, 2020 11:00am 36.9 % 37-47 [facility], [address] [place] [address] 34012 Hematocrit February 26, 2020 10:02am 39.4 % 37-47 [facility], [address] [place] [address] 10907 Hematocrit February 20, 2020 8:35am 41.0 % 37-47 [facility], [address] [place] [address] 72021 Mean Corpuscular Volume August 30, 2020 8:15pm 80.8 fl 80-96 [facility], [address] [place] [address] 50412 Mean Corpuscular Volume July 7:35pm 80.4 fl 80-96 [facility], [address] [place] [address] 06679 Mean Corpuscular Volume July 9:31am 79.4 fl 80-96 [facility], [address] [place] [address] 07872 Mean Corpuscular Volume July 2:35pm 80.8 fl 80-96 [facility], [address] [place] [address] 33290 Mean Corpuscular Volume June 9:40pm 81.2 fl 80- [facility], [address] [place] [address] 40868 Mean Corpuscular Volume May 182019 6:17am 83.2 fl [facility], [address] [place] [address] 29635 Mean Corpuscular Volume March 25, 2020 8:11am 81.6 fl 80- [facility], [address] [place] [address] 10497 Mean Corpuscular Volume March 11, 020 12:14pm 81.2 fl 80- [facility], [address] [place] [address] 66175 Mean Corpuscular Volume March 02, 2 020 11:00am 81.6 fl 80- [facility], [address] [place] [address] 05314 Mean Corpuscular Volume February 25 10:02am 81.4 fl 80- [facility], [address] [place] [address] 03724 Mean Corpuscular Volume February 19, 2 020 8:35am 81.7 fl 80- [facility], [address] [place] [address] 99168 Mean Corpuscular Hemoglobin August 30, 2020 8:15pm 24.6 pg 27-31 [facility], [address] [place] [address] 88380 Mean Corpuscular Hemoglobin August 09, 2020 7:35pm 25.4 pg 27-31 [facility], [address] [place] [address] 64128 Mean Corpuscular Hemoglobin August 14, 2020 9:31am 24.9 pg 27-31 [facility], [address] [place] [address] 15820 Mean Corpuscular Hemoglobin August 03, 2020 2:35pm 25.7 pg 27-31 [facility], [address] [place] [address] 00780 Mean Corpuscular Hemoglobin July 01, 2020 9:40pm 26.2 pg 27-31 [facility], [address] [place] [address] 38689 Mean Corpuscular Hemoglobin 2019 6:17am 26.6 pg 27-31 [facility], [address] [place] [address] 84415 Mean Corpuscular Hemoglobin March 252019 8:11am 27.1 pg 2731 [facility], [address] [place] [address] 43167 Mean Corpuscular Hemoglobin February 12:14pm 27.1 pg 2731 [facility], [address] [place] [address] 19961 Mean Corpuscular Hemoglobin February 11:00am 26.8 pg 2731 [facility], [address] [place] [address] 93900 Mean Corpuscular Hemoglobin February 10:02am 26.9 pg 2731 [facility], [address] [place] [address] 31251 Mean Corpuscular Hemoglobin January 8:35am 26.7 pg 27[facility], [address] [place] [address] 75098 Mean Corpuscular Hemoglobin Concent August 30, 2020 8:15pm 30.5 g/dl 37 [facility], [address] [place] [address] 84504 Mean Corpuscular Hemoglobin Concent August 09, 2020 7:35pm 31.6 g/dl 33[facility], [address] [place] [address] 40207 Mean Corpuscular Hemoglobin Concent August 14, 2020 9:31am 31.4 g/dl [facility], [address] [place] [address] 82109 Mean Corpuscular Hemoglobin Concent August 03, 2020 2:35pm 31.9 g/dl [address] [facility], [address] [place] [address] 50058 Mean Corpuscular Hemoglobin Concent July 01, 2020 9:40pm 32.2 g/dl 33[facility], [address] [place] [address] 15365 Mean Corpuscular Hemoglobin Concent May 18, 2020 6:17am 32.0 g/dl 33[facility], [address] [place] [address] 28309 Mean Corpuscular Hemoglobin Concent March 25, 2020 8:11am 33.1 g/dl 33[facility], [address] [place] [address] 45016 Mean Corpuscular Hemoglobin Concent March 11, 2020 12:14pm 33.3 g/dl [facility], [address] [place] [address] 05406 Mean Corpuscular Hemoglobin Concent March 02, 2020 11:00am 32.8 g/dl [facility], [address] [place] [address] 41813 Mean Corpuscular Hemoglobin Concent February 26, 2020 10:02am 33.0 g/dl [facility], [address] [place] [address] 87274 Mean Corpuscular Hemoglobin Concent February 20, 2020 8:35am 32.7 g/dl [facility], [address] [place] [address] 20811 Red Cell Distribution Width August 30, 2020 8:15pm 15 % 11-15 [facility], [address] [place] [address] 75914 Red Cell Distribution Width August 09, 2020 7:35pm 14 % 11-15 [facility], [address] [place] [address] 15492 Red Cell Distribution Width August 14, 2020 9:31am 15 % 11-15 [facility], [address] [place] [address] 67680 Red Cell Distribution Width August 03, 2020 2:35pm 14 % 11-15 [facility], [address] [place] [address] 46790 Red Cell Distribution Width July 01, 2020 9:40pm 14 % 11-15 [facility], [address] [place] [address] 69623 Red Cell Distribution Width 2019 6:17am 14 % 11-15 [facility], [address] [place] [address] 10779 Red Cell Distribution Width March 252019 8:11am 15 % 11-15 [facility], [address] [place] [address] 84329 Red Cell Distribution Width February 12:14pm 15 % 11-15 [facility], [address] [place] [address] 82183 Red Cell Distribution Width February 11:00am 14 % 11-15 [facility], [address] [place] [address] 17851 Red Cell Distribution Width February 10:02am 14 % 11-15 [facility], [address] [place] [address] 67648 Red Cell Distribution Width January 8:35am 15 % 11-15 [facility], [address] [place] [address] 87455 Platelet Count August 30, 2020 8:15pm 422 10e3/ul 130-472 [facility], [address] [place] [address] 26085 Platelet Count August 09, 2020 7:35pm 423 10e3/ul 130-472 [facility], [address] [place] [address] 67633 Platelet Count August 14, 2020 9:31am 429 10e3/ul 130-472 [facility], [address] [place] [address] 16775 Platelet Count August 03, 2020 2:35pm 372 10e3/ul 130-472 [facility], [address] [place] [address] 28854 Platelet Count July 01, 2020 9:40pm 392 10e3/ul 130-472 [facility], [address] [place] [address] 24219 Platelet Count May 18, 2020 6:17am 332 10e3/ul 130-472 [facility], [address] [place] [address] 70778 Platelet Count March 25, 2020 8:11am 395 10e3/ul 130-472 [facility], [address] [place] [address] 91422 Platelet Count March 11, 2020 12:14pm 460 10e3/ul 130-472 [facility], [address] [place] [address] 96407 Platelet Count March 02, 2020 11:00am 410 10e3/ul 130-472 [facility], [address] [place] [address] 08964 Platelet Count February 26, 2020 10:02am 436 10e3/ul 130-472 [facility], [address] [place] [address] 80701 Platelet Count February 20, 2020 8:35am 479 10e3/ul 130-472 [facility], [address] [place] [address] 83673 Mean Platelet Volume August 30 8:15pm 8.7 fl 9.1-13.1 [facility], [address] [place] [address] Mean Platelet Volume August 09, 2020 7:35pm 8.9 fl 9.1-13.1 [facility], [address] [place] [address] Mean Platelet Volume August 14, 2020 9:31am 8.9 fl 9.1-13.1 [facility], [address] [place] [address] 65907 Mean Platelet Volume August 03, 2020 2:35pm 9.0 fl 9.1-13.1 [facility], [address] [place] [address] 48171 Mean Platelet Volume July 01 9:40pm 8.6 fl 9.1-13.1 [facility], [address] [place] [address] 29583 Mean Platelet Volume May 18, 2020 6:17am 8.6 fl 9.1-13.1 [facility], [address] [place] [address] 79149 Mean Platelet Volume March 25 0 8:11am 8.3 fl 9.1-13.1 [facility], [address] [place] [address] 55087 Mean Platelet Volume March 11, 2020 12:14pm 8.4 fl 9.1-13.1 [facility], [address] [place] [address] 88925 Mean Platelet Volume March 02, 2020 11:00am 8.6 fl 9.1-13.1 [facility], [address] [place] [address] 50386 Mean Platelet Volume February 26, 2020 10:02a m 8.7 fl 9.1-13.1 [facility], [address] [place] [address] 30853 Mean Platelet Volume February 20, 2020 8:35a m 8.7 fl 9.1-13.1 [facility], [address] [place] [address] 31462 Neutrophils (%) (Auto) August 30, 2020 8:15pm 69.3 % [address] [place] [address] [facility]ATORY, [address] [place] [address] 24718 Neutrophils (%) (Auto) July 7:35pm 71.3 % [address] [place] [address] [facility]ORY, [address] [place] [address] 94712 Neutrophils (%) (Auto) July 9:31am 63.7 % [address] [place] [address] [facility]ATORY, [address] [place] [address] 99252 Neutrophils (%) (Auto) July 2:35pm 68.8 % [address] [place] [address] [facility]ATORY, [address] [place] [address] 13791 Neutrophils (%) (Auto) July 01, 2020 9:40pm 66.3 % [address] [place] [address] [facility]ORY, [address] [place] [address] 77734 Neutrophils (%) (Auto) April 6:17am 66.1 % [address] [place] [address] [facility]ORY, [address] [place] [address] 66801 Neutrophils (%) (Auto) March 25 8:11am 58.4 % [address] [place] [address] [facility]ATORY, [address] [place] [address] 12892 Neutrophils (%) (Auto) March 11 12:14pm 72.2 % [address] [place] [address] [facility]ATORY, [address] [place] [address] 72547 Neutrophils (%) (Auto) March 02 11:00am 65.4 % [address] [place] [address] [facility]ATORY, [address] [place] [address] 29742 Neutrophils (%) (Auto) February 25 0 10:02am 62.6 % [address] [place] [address] [facility]ORY, [address] [place] [address] 05831 Neutrophils (%) (Auto) February 19 8:35am 62.4 % [address] [place] [address] LABORATORY, [address] [place] [address] 58714 Absolute Neutrophil August 30 8:15pm 7.8 # 1.7-7.6 [facility], [address] [place] [address] 38557 Absolute Neutrophil August 09, 020 7:35pm 7.0 # 1.7-7.6 [facility], [address] [place] [address] 37196 Absolute Neutrophil August 14, 020 9:31am 6.2 # 1.7-7.6 [facility], [address] [place] [address] 82711 Absolute Neutrophil August 03, 020 2:35pm 5.9 # 1.7-7.6 [facility], [address] [place] [address] 26407 Absolute Neutrophil July 01 9:40pm 7.5 # 1.7-7.6 [facility], [address] [place] [address] 71825 Absolute Neutrophil May 18, 2020 6:17am 6.1 # 1.7-7.6 [facility], [address] [place] [address] 61431 Absolute Neutrophil March 25, 2020 8:11a m 6.3 # 1.7-7.6 [facility], [address] [place] [address] 08622 Absolute Neutrophil March 11, 2020 12:14p m 8.1 # 1.7-7.6 [facility], [address] [place] [address] 35988 Absolute Neutrophil March 02, 2020 11:00a m 6.7 # 1.7-7.6 [facility], [address] [place] [address] 99150 Absolute Neutrophil February 26, 2020 10:02am 6.1 # 1.7-7.6 [facility], [address] [place] [address] 88277 Absolute Neutrophil February 20, 2020 8:35am 5.5 # 1.7-7.6 [facility], [address] [place] [address] 62095 Lymphocytes (%) (Auto) August 30, 2020 8:15pm 20.7 % 1446 [facility], [address] [place] [address] 01156 Lymphocytes (%) (Auto) July 7:35pm 19.4 % [address] [facility], [address] [place] [address] 75045 Lymphocytes (%) (Auto) July 9:31am 25.9 % 14-46 [facility], [address] [place] [address] 50874 Lymphocytes (%) (Auto) July 2:35pm 20.2 % 1446 [facility], [address] [place] [address] 75205 Lymphocytes (%) (Auto) July 01, 2020 9:40pm 21.4 % 1446 [facility], [address] [place] [address] 70679 Lymphocytes (%) (Auto) April 6:17am 22.8 % 14-46 [facility], [address] [place] [address] 65943 Lymphocytes (%) (Auto) March 25 8:11am 30.4 % 14-46 [facility], [address] [place] [address] 83368 Lymphocytes (%) (Auto) March 11 12:14pm 19.0 % 14-46 [facility], [address] [place] [address] 19169 Lymphocytes (%) (Auto) March 02 11:00am 23.6 % 14-46 [facility], [address] [place] [address] 31846 Lymphocytes (%) (Auto) February 25 0 10:02am 25.4 % 14-46 [facility], [address] [place] [address] 86623 Lymphocytes (%) (Auto) February 19 8:35am 26.5 % 14-46 [facility], [address] [place] [address] 66138 Lymphocytes # (Auto) August 30 8:15pm 2.3 # 0.6-4.6 [facility], [address] [place] [address] 07246 Lymphocytes # (Auto) August 09, 2020 7:35pm 1.9 # 0.6-4.6 [facility], [address] [place] [address] 13529 Lymphocytes # (Auto) August 14, 2020 9:31am 2.5 # 0.6-4.6 [facility], [address] [place] [address] 34011 Lymphocytes # (Auto) August 03, 2020 2:35pm 1.7 # 0.6-4.6 [facility], [address] [place] [address] 53373 Lymphocytes # (Auto) July 01 9:40pm 2.4 # 0.6-4.6 [facility], [address] [place] [address] 83405 Lymphocytes # (Auto) May 18, 2020 6:17am 2.1 # 0.6-4.6 [facility], [address] [place] [address] 61845 Lymphocytes # (Auto) March 25 0 8:11am 3.3 # 0.6-4.6 [facility], [address] [place] [address] 84443 Lymphocytes # (Auto) March 11, 2020 12:14pm 2.1 # 0.6-4.6 [facility], [address] [place] [address] 36530 Lymphocytes # (Auto) March 02, 2020 11:00am 2.4 # 0.6-4.6 [facility], [address] [place] [address] 43333 Lymphocytes # (Auto) February 26, 2020 10:02a m 2.5 # 0.6-4.6 [facility], [address] [place] [address] 68421 Lymphocytes # (Auto) February 20, 2020 8:35a m 2.3 # 0.6-4.6 [facility], [address] [place] [address] 92275 Monocytes (%) (Auto) August 30 8:15pm 6.8 % [address] [facility], [address] [place] [address] 11875 Monocytes (%) (Auto) August 09, 2020 7:35pm 7.0 % [address] [facility], [address] [place] [address] 00421 Monocytes (%) (Auto) August 14, 2020 9:31am 6.9 % [address] [place] [address] LABORATORY, [address] [place] [address] 94186 Monocytes (%) (Auto) August 03, 2020 2:35pm 8.3 % [address] [facility], [address] [place] [address] 13314 Monocytes (%) (Auto) July 01 9:40pm 8.9 % [address] [place] [address] LABORATORY, [address] [place] [address] 68735 Monocytes (%) (Auto) May 18, 2020 6:17am 8.7 % [address] [place] [address] LABORATORY, [address] [place] [address] [id number] Monocytes (%) (Auto) March 25 0 8:11am 7.7 % [address] [facility], [address] [place] [address] 53642 Monocytes (%) (Auto) March 11, 2020 12:14pm 5.5 % [address] [facility], [address] [place] [address] 63402 Monocytes (%) (Auto) March 02, 2020 11:00am 7.8 % [address] [place] [address] LABORATORY, [address] [place] [address] 16041 Monocytes (%) (Auto) February 26, 2020 10:02a m 8.2 % [address] [facility], [address] [place] [address] 60927 Monocytes (%) (Auto) February 20, 2020 8:35a m 8.0 % [address] [facility], [address] [place] [address] 87113 Monocytes # August 30, 2020 8:15pm 0.8 # 0.2-1.2 [facility], [address] [place] [address] 67226 Monocytes # August 09, 2020 7:35pm 0.7 # 0.2-1.2 [facility], [address] [place] [address] 14546 Monocytes # August 14, 2020 9:31am 0.7 # 0.2-1.2 [facility], [address] [place] [address] 36280 Monocytes # August 03, 2020 2:35pm 0.7 # 0.2-1.2 [facility], [address] [place] [address] 09240 Monocytes # July 01, 2020 9:40pm 1.0 # 0.2-1.2 [facility], [address] [place] [address] 38675 Monocytes # May 18, 2020 6:17am 0.8 # 0.2-1.2 [facility], [address] [place] [address] 30378 Monocytes # March 25, 2020 8:11am 0.8 # 0.2-1.2 [facility], [address] [place] [address] 92594 Monocytes # March 11, 2020 12:14pm 0.6 # 0.2-1.2 [facility], [address] [place] [address] 64894 Monocytes # March 02, 2020 11:00am 0.8 # 0.2-1.2 [facility], [address] [place] [address] 40294 Monocytes # February 26, 2020 10:02am 0.8 # 0.2-1.2 [facility], [address] [place] [address] 81731 Monocytes # February 20, 2020 8:35am 0.7 # 0.2-1.2 [facility], [address] [place] [address] 18910 Eosinophils (%) (Auto) August 30, 2020 8:15pm 2.4 % 0-7 [facility], [address] [place] [address] 80528 Eosinophils (%) (Auto) July 7:35pm 1.8 % 0-7 [facility], [address] [place] [address] 51974 Eosinophils (%) (Auto) July 9:31am 3.0 % 0-7 [facility], [address] [place] [address] 22584 Eosinophils (%) (Auto) July 2:35pm 2.2 % 0-7 [facility], [address] [place] [address] 47717 Eosinophils (%) (Auto) July 01, 2020 9:40pm 2.7 % 0-7 [facility], [address] [place] [address] 17355 Eosinophils (%) (Auto) April 6:17am 1.9 % 0-7 [facility], [address] [place] [address] 42772 Eosinophils (%) (Auto) March 25 8:11am 2.7 % 0-7 [facility], [address] [place] [address] 20011 Eosinophils (%) (Auto) March 11 12:14pm 2.5 % 0-7 [facility], [address] [place] [address] 80952 Eosinophils (%) (Auto) March 02 11:00am 2.4 % 0-7 [facility], [address] [place] [address] 25827 Eosinophils (%) (Auto) February 25 0 10:02am 3.1 % 0-7 [facility], [address] [place] [address] 60911 Eosinophils (%) (Auto) February 19 8:35am 2.6 % 0-7 [facility], [address] [place] [address] 53010 Absolute Eosinophils (CBC) August 302020 8:15pm 0.3 # 0.0-0.5 [facility], [address] [place] [address] 60979 Absolute Eosinophils (CBC) August 09, 2020 7:35pm 0.2 # 0.0-0.5 [facility], [address] [place] [address] 11004 Absolute Eosinophils (CBC) August 14, 2020 9:31am 0.3 # 0.0-0.5 [facility], [address] [place] [address] 47670 Absolute Eosinophils (CBC) August 03, 2020 2:35pm 0.2 # 0.0-0.5 [facility], [address] [place] [address] 62376 Absolute Eosinophils (CBC) July 01, 2020 9:40pm 0.3 # 0.0-0.5 [facility], [address] [place] [address] 86658 Absolute Eosinophils (CBC) May 18, 2020 6:17am 0.2 # 0.0-0.5 [facility], [address] [place] [address] 58100 Absolute Eosinophils (CBC) March 8:11am 0.3 # 0.0-0.5 [facility], [address] [place] [address] 94062 Absolute Eosinophils (CBC) February 12:14pm 0.3 # 0.0-0.5 [facility], [address] [place] [address] Absolute Eosinophils (CBC) February 11:00am 0.3 # 0.0-0.5 [facility], [address] [place] [address] Absolute Eosinophils (CBC) February 26, 2020 10:02am 0.3 # 0.0-0.5 [facility], [address] [place] [address] Absolute Eosinophils (CBC) January 8:35am 0.2 # 0.0-0.5 [facility], [address] [place] [address] Basophils (%) (Auto) August 30 8:15pm 0.4 % 0.4-1.3 [facility], [address] [place] [address] 21530 Basophils (%) (Auto) August 09, 2020 7:35pm 0.3 % 0.4-1.3 [facility], [address] [place] [address] 58358 Basophils (%) (Auto) August 14, 2020 9:31am 0.3 % 0.4-1.3 [facility], [address] [place] [address] Basophils (%) (Auto) August 03, 2020 2:35pm 0.3 % 0.4-1.3 [facility], [address] [place] [address] 27014 Basophils (%) (Auto) July 01 020 9:40pm 0.4 % 0.4-1.3 [facility], [address] [place] [address] 93798 Basophils (%) (Auto) May 18, 2020 6:17am 0.3 % 0.4-1.3 [facility], [address] [place] [address] 09979 Basophils (%) (Auto) March 25 0 8:11am 0.5 % 0.4-1.3 [facility], [address] [place] [address] 52579 Basophils (%) (Auto) March 11, 2020 12:14pm 0.4 % 0.4-1.3 [facility], [address] [place] [address] 99194 Basophils (%) (Auto) March 02, 2020 11:00am 0.5 % 0.4-1.3 [facility], [address] [place] [address] 23361 Basophils (%) (Auto) February 26, 2020 10:02a m 0.4 % 0.4-1.3 [facility], [address] [place] [address] 01619 Basophils (%) (Auto) February 20, 2020 8:35a m 0.3 % 0.4-1.3 [facility], [address] [place] [address] 33306 Absolute Basophils (CBC) August 8:15pm 0.1 # 0.0-0.2 [facility], [address] [place] [address] 06524 Absolute Basophils (CBC) August 092019 7:35pm 0.0 # 0.0-0.2 [facility], [address] [place] [address] 09165 Absolute Basophils (CBC) August 142019 9:31am 0.0 # 0.0-0.2 [facility], [address] [place] [address] 99857 Absolute Basophils (CBC) August 032019 2:35pm 0.0 # 0.0-0.2 [facility], [address] [place] [address] 88724 Absolute Basophils (CBC) June 9:40pm 0.0 # 0.0-0.2 [facility], [address] [place] [address] 07384 Absolute Basophils (CBC) April 242019 6:17am 0.0 # 0.0-0.2 [facility], [address] [place] [address] 24235 Absolute Basophils (CBC) March 25, 2020 8:11am 0.1 # 0.0-0.2 [facility], [address] [place] [address] 45021 Absolute Basophils (CBC) March 11, 2020 12:14pm 0.0 # 0.0-0.2 [facility], [address] [place] [address] 12764 Absolute Basophils (CBC) March 02, 2020 11:00am 0.1 # 0.0-0.2 [facility], [address] [place] [address] 11804 Absolute Basophils (CBC) February 25 10:02am 0.0 # 0.0-0.2 [facility], [address] [place] [address] 43875 Absolute Basophils (CBC) February 20, 2020 8:35am 0.0 # 0.0-0.2 [facility], [address] [place] [address] 48460 Immature Granulocyte % (Auto) Januar y 2020 8:15pm 0.4 % 0-2 [facility], [address] [place] [address] 46087 Immature Granulocyte % (Auto) [facility] er 2019 7:35pm 0.2 % 0-2 [facility], [address] [place] [address] 08817 Immature Granulocyte % (Auto) [facility] er 2019 9:31am 0.2 % 0-2 [facility], [address] [place] [address] 31202 Immature Granulocyte % (Auto) [facility] er 2019 2:35pm 0.2 % 0-2 [facility], [address] [place] [address] 55676 Immature Granulocyte % (Auto) [facility] er 2019 9:40pm 0.3 % 0-2 [facility], [address] [place] [address] 06519 Immature Granulocyte % (Auto) Sept2019 6:17am 0.2 % 0-2 [facility], [address] [place] [address] 68236 Immature Granulocyte % (Auto) March 25, 2020 8:11am 0.3 % 0-2 [facility], [address] [place] [address] 09912 Immature Granulocyte % (Auto) February 212019 12:14pm 0.4 % 0-2 [facility], [address] [place] [address] 84387 Immature Granulocyte % (Auto) February 202019 11:00am 0.3 % 0-2 [facility], [address] [place] [address] 87540 Immature Granulocyte % (Auto) February 252019 10:02am 0.3 % 0-2 [facility], [address] [place] [address] 98276 Immature Granulocyte % (Auto) January 232019 8:35am 0.2 % 0-2 [facility], [address] [place] [address] 86734 Absolute Immature Granulocyte (auto August 30, 2020 8:15pm 0.0 # 0-0.1 [facility], [address] [place] [address] 05209 Absolute Immature Granulocyte (auto August 09, 2020 7:35pm 0.0 # 0-0.1 [facility], [address] [place] [address] Absolute Immature Granulocyte (auto August 14, 2020 9:31am 0.0 # 0-0.1 [facility], [address] [place] [address] Absolute Immature Granulocyte (auto August 03, 2020 2:35pm 0.0 # 0-0.1 [facility], [address] [place] [address] Absolute Immature Granulocyte (auto July 01, 2020 9:40pm 0.0 # 0-0.1 [facility], [address] [place] [address] Absolute Immature Granulocyte (auto May 18, 2020 6:17am 0.0 # 0-0.1 [facility], [address] [place] [address] Absolute Immature Granulocyte (auto March 25, 2020 8:11am 0.0 # 0-0.1 [facility], [address] [place] [address] Absolute Immature Granulocyte (auto March 11, 2020 12:14pm 0.0 # 0-0.1 [facility], [address] [place] [address] Absolute Immature Granulocyte (auto March 02, 2020 11:00am 0.0 # 0-0.1 [facility], [address] [place] [address] Absolute Immature Granulocyte (auto February 26, 2020 10:02am 0.0 # 0-0.1 [facility], [address] [place] [address] Absolute Immature Granulocyte (auto February 20, 2020 8:35am 0.0 # 0-0.1 [facility], [address] [place] [address] 89713 Add Manual Differential August 30, 2020 8:15pm No [facility], [address] [place] [address] 26646 Add Manual Differential July h2019 7:35pm No [facility], [address] [place] [address] 49447 Add Manual Differential July d2019 9:31am No [facility], [address] [place] [address] 09467 Add Manual Differential July 2:35pm No [facility], [address] [place] [address] 44844 Add Manual Differential June 9:40pm No [facility], [address] [place] [address] 97139 Add Manual Differential May 182019 6:17am No [facility], [address] [place] [address] 49632 Add Manual Differential March 25, 2020 8:11am No [facility], [address] [place] [address] 45000 Add Manual Differential March 11 12:14pm No [facility], [address] [place] [address] 60450 Add Manual Differential March 02 11:00am No [facility], [address] [place] [address] 65773 Add Manual Differential February 25 10:02am No [facility], [address] [place] [address] 45849 Add Manual Differential February 19 8:35am No [facility], [address] [place] [address] 15594 Differential Total Cells Counted Sep 2019 7:20pm 100 [facility], [address] [place] [address] 63365 Neutrophils (Manual) May 17, 2020 7:20pm 77 % 41-77 [facility], [address] [place] [address] 43298 Band Neutrophils May 17 7:20pm 3 % 0-5 [facility], [address] [place] [address] 47102 Lymphocytes (Manual) May 17, 2020 7:20pm 17 % 14-46 [facility], [address] [place] [address] 16621 Monocytes (Manual) May 17 7:20pm 3 % 4-12 [facility], [address] [place] [address] 84579 Platelet Estimate May 17 7:20pm Appears normal NORMAL [facility], [address] [place] [address] 51133 RBC Morphology 2 May 17 7:20pm Appears normal NORMAL [facility], [address] [place] [address] 75845 Urine Color May 18, 2020 12:15am Yellow [facility], [address] [place] [address] 00350 Urine Color February 20, 2020 8:40am Yellow [facility], [address] [place] [address] 79123 Urine Color August 30, 2020 8:15pm [place] [facility], [address] [place] [address] 30215 Urine Color August 09, 2020 8:06pm Yellow [facility], [address] [place] [address] 40061 Urine Color August 03, 2020 2:50pm Yellow [facility], [address] [place] [address] 64955 Urine Color July 01, 2020 9:30pm Yellow [facility], [address] [place] [address] 81669 Urine Color March 25, 2020 8:05am Yellow [facility], [address] [place] [address] 88752 Urine Color March 11, 2020 11:00am Yellow [facility], [address] [place] [address] 50492 Urine Color March 05, 2020 2:29pm Yellow [facility], [address] [place] [address] 64476 Urine Color March 02, 2020 10:48am Yellow [facility], [address] [place] [address] 88468 Urine Appearance August 30, 2020 8:15pm Turbid CLEAR [facility], [address] [place] [address] 89957 Urine Appearance August 09, 2020 8:06p m Clear CLEAR [facility], [address] [place] [address] 96868 Urine Appearance August 03, 2020 2:50p m Clear CLEAR [facility], [address] [place] [address] 69603 Urine Appearance July 01, 2020 9:30pm Cloudy [facility], [address] [place] [address] 09346 Urine Appearance May 18 12:15am Clear [facility], [address] [place] [address] 33764 Urine Appearance March 25, 2020 8:05am Cloudy [facility], [address] [place] [address] 10604 Urine Appearance March 11, 2020 11:00am Cloudy [facility], [address] [place] [address] 20916 Urine Appearance March 05, 2020 2:29pm Cloudy [facility], [address] [place] [address] 08985 Urine Appearance March 02, 2020 10:48am Cloudy [facility], [address] [place] [address] 32400 Urine Appearance February 20, 2020 8:40am Turbid CLE[facility], [address] [place] [address] 86104 Urine pH August 30, 2020 8:15pm 6.5 [facility], [address] [place] [address] 34486 Urine pH August 09, 2020 8:06pm 6.5 [facility], [address] [place] [address] 79452 Urine pH August 03, 2020 2:50pm 7.5 [facility], [address] [place] [address] 10031 Urine pH July 01, 2020 9:30pm 6.0 [facility], [address] [place] [address] 55836 Urine pH May 18, 2020 12:15am 6.0 [facility], [address] [place] [address] 99058 Urine pH March 25, 2020 8:05am 5.5 [facility], [address] [place] [address] 30599 Urine pH March 11, 2020 11:00am 6.5 [facility], [address] [place] [address] 77380 Urine pH March 05, 2020 2:29pm 6.0 [facility], [address] [place] [address] 73431 Urine pH March 02, 2020 10:48am 5.5 [facility], [address] [place] [address] 27979 Urine pH February 20, 2020 8:40am 5.5 [facility], [address] [place] [address] 25162 Urine Specific [place] August 30, 2020 8:15pm 1.033 [facility], [address] [place] [address] 19412 Urine Specific [place] July 8:06pm 1.022 [facility], [address] [place] [address] 65948 Urine Specific [place] July 2:50pm 1.020 [facility], [address] [place] [address] 10262 Urine Specific [place] July 01, 2020 9:30pm 1.026 [facility], [address] [place] [address] 50364 Urine Specific [place] April 12:15am >1.045 [facility], [address] [place] [address] 82944 Urine Specific [place] March 25 8:05am 1.025 [facility], [address] [place] [address] 85898 Urine Specific [place] March 11 11:00am 1.025 [facility], [address] [place] [address] 08442 Urine Specific [place] March 05 2:29pm 1.021 [facility], [address] [place] [address] Urine Specific [place] March 02 10:48am 1.025 [facility], [address] [place] [address] Urine Specific [place] February 19 8:40am 1.023 [facility], [address] [place] [address] Urine Leukocyte Esterase April 242019 12:15am Negative NEGATIVE [facility], [address] [place] [address] Urine Leukocyte Esterase February 20, 2020 8:40am Moderate NEGATIVE [facility], [address] [place] [address] Urine Leukocyte Esterase August 8:15pm Small NEGATIVE A Culture has been added to this specimen per established criteria [facility], [address] [place] [address] Urine Leukocyte Esterase August 092019 8:06pm Small NEGATIVE A Culture has been added to this specimen per established criteria [facility], [address] [place] [address] Urine Leukocyte Esterase August [id number] 2:50pm Small NEGATIVE A Culture has been added to this specimen per established criteria [facility], [address] [place] [address] Urine Leukocyte Esterase June 9:30pm Small NEGATIVE A Culture has been added to this specimen per established criteria [facility], [address] [place] [address] Urine Leukocyte Esterase March 25, 2020 8:05am Trace NEGATIVE A Culture has been added to this specimen per established criteria [facility], [address] [place] [address] Urine Leukocyte Esterase March 11, 2020 11:00am Trace NEGATIVE A Culture has been added to this specimen per established criteria [facility], [address] [place] [address] Urine Leukocyte Esterase March 05, 2020 2:29pm Trace NEGATIVE A Culture has been added to this specimen per established criteria [facility], [address] [place] [address] Urine Leukocyte Esterase March 02, 2020 10:48am Trace NEGATIVE A Culture has been added to this specimen per established criteria [facility], [address] [place] [address] Urine Nitrite May 18, 2020 12:15am Negative NEGATIVE [facility], [address] [place] [address] Urine Nitrite February 20, 2020 8:40am Negative NEGATIVE [facility], [address] [place] [address] 73624 Urine Nitrate August 30, 2020 8:15pm Negative NEGATIVE [facility], [address] [place] [address] 47162 Urine Nitrate August 09, 2020 8:06pm Negative NEGATIVE [facility], [address] [place] [address] 51632 Urine Nitrate August 03, 2020 2:50pm Negative NEGATIVE [facility], [address] [place] [address] Urine Nitrate July 01, 2020 9:30pm Negative NEGATIVE [facility], [address] [place] [address] 86394 Urine Nitrate March 25, 2020 8:05am Negative NEGATIVE [facility], [address] [place] [address] Urine Nitrate March 11, 2020 11:00am Negative NEGATIVE [facility], [address] [place] [address] 18751 Urine Nitrate March 05, 2020 2:29pm Negative NEGATIVE [facility], [address] [place] [address] 81546 Urine Nitrate March 02, 2020 10:48am Negative NEGATIVE [facility], [address] [place] [address] 59009 Urine Protein August 30, 2020 8:15pm 30 mg/dl NEGATIVE [facility], [address] [place] [address] 22785 Urine Protein August 09, 2020 8:06pm Negative NEGATIVE [facility], [address] [place] [address] 36251 Urine Protein August 03, 2020 2:50pm Negative NEGATIVE [facility], [address] [place] [address] 71710 Urine Protein July 01, 2020 9:30pm Trace NEGATIVE [facility], [address] [place] [address] Urine Protein May 18, 2020 12:15am Negative NEGATIVE [facility], [address] [place] [address] 69430 Urine Protein March 25, 2020 8:05am Negative NEGATIVE [facility], [address] [place] [address] 77381 Urine Protein March 11, 2020 11:00am Trace NEGATIVE [facility], [address] [place] [address] 06557 Urine Protein March 05, 2020 2:29pm Trace NEGATIVE [facility], [address] [place] [address] 52271 Urine Protein March 02, 2020 10:48am Negative NEGATIVE [facility], [address] [place] [address] 26868 Urine Protein February 20, 2020 8:40am 30 mg/dl NEGATIVE [facility], [address] [place] [address] 01283 Urine Glucose August 30, 2020 8:15pm Negative NEGATIVE [facility], [address] [place] [address] 08262 Urine Glucose August 09, 2020 8:06pm Negative NEGATIVE [facility], [address] [place] [address] [id number] Urine Glucose August 03, 2020 2:50pm Negative NEGATIVE [facility], [address] [place] [address] [id number] Urine Glucose July 01, 2020 9:30pm Negative NEGATIVE [facility], [address] [place] [address] [id number] Urine Glucose May 18, 2020 12:15am Negative NEGATIVE [facility], [address] [place] [address] [id number] Urine Glucose March 25, 2020 8:05am Negative NEGATIVE [facility], [address] [place] [address] [id number] Urine Glucose March 11, 2020 11:00am Negative NEGATIVE [facility], [address] [place] [address] [id number] Urine Glucose March 05, 2020 2:29pm Negative NEGATIVE [facility], [address] [place] [address] [id number] Urine Glucose March 02, 2020 10:48am Negative NEGATIVE [facility], [address] [place] [address] [id number] Urine Glucose February 20, 2020 8:40am Negative NEGATIVE [facility], [address] [place] [address] [id number] Urine Ketones August 30, 2020 8:15pm Trace NEGATIVE [facility], [address] [place] [address] [id number] Urine Ketones August 09, 2020 8:06pm Negative NEGATIVE [facility], [address] [place] [address] [id number] Urine Ketones August 03, 2020 2:50pm Negative NEGATIVE [facility], [address] [place] [address] [id number] Urine Ketones July 01, 2020 9:30pm Trace NEGATIVE [facility], [address] [place] [address] [id number] Urine Ketones May 18, 2020 12:15am Negative NEGATIVE [facility], [address] [place] [address] [id number] Urine Ketones March 25, 2020 8:05am Trace NEGATIVE [facility], [address] [place] [address] [id number] Urine Ketones March 11, 2020 11:00am Trace NEGATIVE [facility], [address] [place] [address] [id number] Urine Ketones March 05, 2020 2:29pm Negative NEGATIVE [facility], [address] [place] [address] [id number] Urine Ketones March 02, 2020 10:48am Negative NEGATIVE [facility], [address] [place] [address] Urine Ketones February 20, 2020 8:40am Trace NEGATIVE [facility], [address] [place] [address] [id number] Urine Urobilinogen August 30, 2020 8:15p m 1 eu/dl [facility], [address] [place] [address] [id number] Urine Urobilinogen August 09 8:06pm 1 eu/dl [facility], [address] [place] [address] [id number] Urine Urobilinogen August 03 2:50pm 1 eu/dl [facility], [address] [place] [address] [id number] Urine Urobilinogen July 01 9:30pm 1 eu/dl [facility], [address] [place] [address] Urine Urobilinogen May 18 12:15am 0.2 eu/dl [facility], [address] [place] [address] 65608 Urine Urobilinogen March 25, 2020 8:05am 1 eu/dl [facility], [address] [place] [address] [id number] Urine Urobilinogen March 11, 2020 11:00am 1 eu/dl [facility], [address] [place] [address] 20064 Urine Urobilinogen March 05, 2020 2:29pm 0.2 eu/dl [facility], [address] [place] [address] Urine Urobilinogen March 02, 2020 10:48am 1 eu/dl [facility], [address] [place] [address] Urine Urobilinogen February 20, 2020 8:40am 1 eu/dl [facility], [address] [place] [address] 11125 Urine Bilirubin August 30, 2020 8:15pm Negative NEGATIVE [facility], [address] [place] [address] 95701 Urine Bilirubin August 09, 2020 8:06pm Negative NEGATIVE [facility], [address] [place] [address] Urine Bilirubin August 03, 2020 2:50pm Negative NEGATIVE [facility], [address] [place] [address] 76060 Urine Bilirubin July 01, 2020 9:30pm Negative NEGATIVE [facility], [address] [place] [address] 17100 Urine Bilirubin May 18, 2020 12:15am Negative NEGATIVE [facility], [address] [place] [address] 15674 Urine Bilirubin March 25, 2020 8:05am Negative NEGATIVE [facility], [address] [place] [address] 65553 Urine Bilirubin March 11, 2020 11:00am Negative NEGATIVE [facility], [address] [place] [address] 06300 Urine Bilirubin March 05, 2020 2:29pm Negative NEGATIVE [facility], [address] [place] [address] Urine Bilirubin March 02, 2020 10:48am Negative NEGATIVE [facility], [address] [place] [address] 94433 Urine Bilirubin February 20, 2020 8:40am Negative NEGATIVE [facility], [address] [place] [address] 07819 Urine Blood May 18, 2020 12:15am Negative NEGATIVE [facility], [address] [place] [address] 50275 Urine Blood February 20, 2020 8:40am Large NEGATIVE [facility], [address] [place] [address] 58341 Urine Blood August 30, 2020 8:15pm Large NEGATIVE A Culture has been added to this specimen per established criteria [facility], [address] [place] [address] 29501 Urine Blood August 09, 2020 8:06pm Moderate NEGATIVE A Culture has been added to this specimen per established criteria [facility], [address] [place] [address] 44201 Urine Blood August 03, 2020 2:50pm Small NEGATIVE [facility], [address] [place] [address] Urine Blood July 01, 2020 9:30pm Moderate NEGATIVE A Culture has been added to this specimen per established criteria [facility], [address] [place] [address] 67204 Urine Blood March 25, 2020 8:05am Negative NEGATIVE [facility], [address] [place] [address] 93782 Urine Blood March 11, 2020 11:00am Negative NEGATIVE [facility], [address] [place] [address] 33000 Urine Blood March 05, 2020 2:29pm Large NEGATIVE A Culture has been added to this specimen per established criteria [facility], [address] [place] [address] 28739 Urine Blood March 02, 2020 10:48am Trace NEGATIVE [facility], [address] [place] [address] Microscopic Urinalysis Comment 2019 12:15am No [facility], [address] [place] [address] Microscopic Urinalysis Comment February 20, 2020 8:40am Microscopic added [facility], [address] [place] [address] Add Urine Microanalysis August 30, 2020 8:15pm Microscopic added [facility], [address] [place] [address] Add Urine Microanalysis July 8:06pm Microscopic added [facility], [address] [place] [address] Add Urine Microanalysis July 2:50pm Microscopic added [facility], [address] [place] [address] Add Urine Microanalysis June 9:30pm Microscopic added [facility], [address] [place] [address] Add Urine Microanalysis March 25, 2020 8:05am Microscopic added [facility], [address] [place] [address] Add Urine Microanalysis March 11 020 11:00am Microscopic added [facility], [address] [place] [address] Add Urine Microanalysis March 05, 020 2:29pm Microscopic added [facility], [address] [place] [address] Add Urine Microanalysis March 02, 020 10:48am Microscopic added [facility], [address] [place] [address] Urine RBC August 30, 2020 8:15pm 1-2 /hpf [facility], [address] [place] [address] Urine RBC August 09, 2020 8:06pm 1-2 /hpf [facility], [address] [place] [address] Urine RBC August 03, 2020 2:50pm 6-10 /hpf [facility], [address] [place] [address] Urine RBC July 01, 2020 9:30pm Occasional /hpf [facility], [address] [place] [address] Urine RBC March 05, 2020 2:29pm 3-5 /hpf [facility], [address] [place] [address] Urine RBC March 02, 2020 10:48am Occasional /hpf [facility], [address] [place] [address] Urine WBC February 20, 2020 8:40am 20-30 /hpf [facility], [address] [place] [address] Urine WBC August 30, 2020 8:15pm 1-2 /hpf [facility], [address] [place] [address] Urine WBC August 09, 2020 8:06pm 1-2 /hpf [facility], [address] [place] [address] Urine WBC August 03, 2020 2:50pm 20-30 /hpf [facility], [address] [place] [address] Urine WBC July 01, 2020 9:30pm Occasional /hpf [facility], [address] [place] [address] Urine WBC March 25, 2020 8:05am 3-5 /hpf [facility], [address] [place] [address] Urine WBC March 11, 2020 11:00am 3-5 /hpf [facility], [address] [place] [address] Urine WBC March 05, 2020 2:29pm Occasional /hpf [facility], [address] [place] [address] Urine WBC March 02, 2020 10:48am 3-5 /hpf [facility], [address] [place] [address] Urine Squamous Epithelial Cells Lukas krystina 2020 8:15pm Moderate /hpf [facility], [address] [place] [address] Urine Squamous Epithelial Cells Dece mb2019 8:06pm Many /hpf [facility], [address] [place] [address] Urine Squamous Epithelial Cells Dece mber 2019 2:50pm Moderate /hpf [facility], [address] [place] [address] Urine Squamous Epithelial Cells Nove mber 2019 9:30pm Moderate /hpf [facility], [address] [place] [address] Urine Squamous Epithelial Cells Augu st 2019 8:05am Many /hpf [facility], [address] [place] [address] Urine Squamous Epithelial Cells March 11, 2020 11:00am Many /hpf [facility], [address] [place] [address] Urine Squamous Epithelial Cells March 05, 2020 2:29pm Many /hpf [facility], [address] [place] [address] 33418 Urine Squamous Epithelial Cells March 02, 2020 10:48am Many /hpf [facility], [address] [place] [address] 60219 Urine Squamous Epithelial Cells February 20, 2020 8:40am Many /hpf [facility], [address] [place] [address] 49920 Urine Bacteria February 20, 2020 8:40am Moderate amount NEGATIVE [facility], [address] [place] [address] 60452 Urine Bacteria August 30, 2020 8:15pm Small amount NEGATIVE [facility], [address] [place] [address] 43673 Urine Bacteria August 09, 2020 8:06pm Small amount NEGATIVE [facility], [address] [place] [address] 11375 Urine Bacteria August 03, 2020 2:50pm Small amount NEGATIVE [facility], [address] [place] [address] 20624 Urine Bacteria July 01, 2020 9:30pm Moderate amount NEGATIVE A Culture has been added to this specime n per established criteria [facility], [address] [place] [address] 00866 Urine Bacteria March 25, 2020 8:05am Small amount NEGATIVE [facility], [address] [place] [address] 21653 Urine Bacteria March 11, 2020 11:00am Small amount NEGATIVE [facility], [address] [place] [address] 83193 Urine Bacteria March 05, 2020 2:29pm Small amount NEGATIVE [facility], [address] [place] [address] 61686 Urine Bacteria March 02, 2020 10:48am Small amount NEGATIVE [facility], [address] [place] [address] 90945 Urine Mucus August 30, 2020 8:15pm Small amount [facility], [address] [place] [address] 92521 Urine Mucus March 25, 2020 8:05am Small amount [facility], [address] [place] [address] 62252 Urine Sperm February 20, 2020 8:40am Few [facility], [address] [place] [address] 96496 Blood Urea Nitrogen August 30 8:15pm 16 mg/dL 05-15 [facility], [address] [place] [address] 13607 Blood Urea Nitrogen August 09 020 7:35pm 8 mg/dL 05-15 [facility], [address] [place] [address] Blood Urea Nitrogen August 03 2:35pm 5 mg/dL 05-15 [facility], [address] [place] [address] Blood Urea Nitrogen July 01 9:40pm 6 mg/dL 05-15 [facility], [address] [place] [address] Blood Urea Nitrogen May 18, 2020 6:17am 7 mg/dL 05-15 [facility], [address] [place] [address] Blood Urea Nitrogen March 25, 2020 8:11a m 7 mg/dL 05-15 [facility], [address] [place] [address] Blood Urea Nitrogen March 11, 2020 12:14p m 6 mg/dL 05-15 [facility], [address] [place] [address] Blood Urea Nitrogen March 02, 2020 11:00a m 8 mg/dL 05-15 [facility], [address] [place] [address] Blood Urea Nitrogen February 26, 2020 10:02am 7 mg/dL 05-15 [facility], [address] [place] [address] Blood Urea Nitrogen February 20, 2020 8:35am 6 mg/dL 05-15 [facility], [address] [place] [address] 79879 Sodium Level August 30, 2020 8:15pm 141 mmol/L 132-146 [facility], [address] [place] [address] 14783 Sodium Level August 09, 2020 7:35pm 141 mmol/L 132-146 [facility], [address] [place] [address] 22152 Sodium Level August 03, 2020 2:35pm 138 mmol/L 132-146 [facility], [address] [place] [address] 17358 Sodium Level July 01, 2020 9:40pm 141 mmol/L 132-146 [facility], [address] [place] [address] 33961 Sodium Level May 18, 2020 6:17am 143 mmol/L 132-146 [facility], [address] [place] [address] 72619 Sodium Level March 25, 2020 8:11am 137 mmol/L 132-146 [facility], [address] [place] [address] 82000 Sodium Level March 11, 2020 12:14pm 140 mmol/L 132-146 [facility], [address] [place] [address] 32791 Sodium Level March 02, 2020 11:00am 139 mmol/L 132-146 [facility], [address] [place] [address] 03004 Sodium Level February 26, 2020 10:02am 138 mmol/L 132-146 [facility], [address] [place] [address] 96003 Sodium Level February 20, 2020 8:35am 138 mmol/L 132-146 [facility], [address] [place] [address] 37417 Potassium Level August 30, 2020 8:15pm 3.8 mmol/L 3.5-5.5 [facility], [address] [place] [address] 88405 Potassium Level August 09, 2020 7:35pm 3.9 mmol/L 3.5-5.5 [facility], [address] [place] [address] 56216 Potassium Level August 03, 2020 2:35pm 4.6 mmol/L 3.5-5.5 [facility], [address] [place] [address] 73496 Potassium Level July 01, 2020 9:40pm 3.7 mmol/L 3.5-5.5 [facility], [address] [place] [address] 99848 Potassium Level May 18, 2020 6:17a m 3.8 mmol/L 3.5-5.5 [facility], [address] [place] [address] 04672 Potassium Level March 25, 2020 8:11am 3.7 mmol/L 3.5-5.5 [facility], [address] [place] [address] 10818 Potassium Level March 11, 2020 12:14pm 4.3 mmol/L 3.5-5.5 [facility], [address] [place] [address] 90251 Potassium Level March 02, 2020 11:00am 4.1 mmol/L 3.5-5.5 [facility], [address] [place] [address] 63726 Potassium Level February 26, 2020 10:02am 4.1 mmol/L 3.5-5.5 [facility], [address] [place] [address] 34976 Potassium Level February 20, 2020 8:35am 4.1 mmol/L 3.5-5.5 [facility], [address] [place] [address] 70869 Chloride Level August 30, 2020 8:15pm 109 mmol/l 99-109 [facility], [address] [place] [address] 28519 Chloride Level August 09, 2020 7:35pm 111 mmol/l 99-109 [facility], [address] [place] [address] 39895 Chloride Level August 03, 2020 2:35pm 110 mmol/l 99-109 [facility], [address] [place] [address] 06284 Chloride Level July 01, 2020 9:40pm 110 mmol/l 99-109 [facility], [address] [place] [address] 70238 Chloride Level May 18, 2020 6:17am 113 mmol/l 99-109 [facility], [address] [place] [address] 41111 Chloride Level March 25, 2020 8:11am 111 mmol/l 99-109 [facility], [address] [place] [address] 64607 Chloride Level March 11, 2020 12:14pm 111 mmol/l 99-109 [facility], [address] [place] [address] 20289 Chloride Level March 02, 2020 11:00am 111 mmol/l 99-109 [facility], [address] [place] [address] 56609 Chloride Level February 26, 2020 10:02am 107 mmol/l 99-109 [facility], [address] [place] [address] 32448 Chloride Level February 20, 2020 8:35am 108 mmol/l 99-109 [facility], [address] [place] [address] 35498 Carbon Dioxide Level August 30 8:15pm 24 mmol/l 20-31 [facility], [address] [place] [address] 18590 Carbon Dioxide Level August 09, 2020 7:35pm 24 mmol/l 20-31 [facility], [address] [place] [address] 51818 Carbon Dioxide Level August 03, 2020 2:35pm 21 mmol/l 20-31 [facility], [address] [place] [address] 52274 Carbon Dioxide Level July 01 9:40pm 22 mmol/l 20-31 [facility], [address] [place] [address] 48830 Carbon Dioxide Level May 18, 2020 6:17am 25 mmol/l 20-31 [facility], [address] [place] [address] 99741 Carbon Dioxide Level March 25 0 8:11am 21 mmol/l 20-31 [facility], [address] [place] [address] 55029 Carbon Dioxide Level March 11, 2020 12:14pm 20 mmol/l 20-31 [facility], [address] [place] [address] 78293 Carbon Dioxide Level March 02, 2020 11:00am 20 mmol/l -31 [facility], [address] [place] [address] 07501 Carbon Dioxide Level February 26, 2020 10:02a m 22 mmol/l 2031 [facility], [address] [place] [address] Carbon Dioxide Level February 20, 2020 8:35a m 21 mmol/l 20-31 [facility], [address] [place] [address] 86306 Anion Gap August 30, 2020 8:15pm 12 mmol/l 8-16 [facility], [address] [place] [address] 63927 Anion Gap August 09, 2020 7:35pm 10 mmol/l 8-16 [facility], [address] [place] [address] 53527 Anion Gap August 03, 2020 2:35pm 12 mmol/l 8-16 [facility], [address] [place] [address] 87090 Anion Gap July 01, 2020 9:40pm 13 mmol/l 8-16 [facility], [address] [place] [address] 28772 Anion Gap May 18, 2020 6:17am 9 mmol/l 8-16 [facility], [address] [place] [address] 42478 Anion Gap March 25, 2020 8:11am 9 mmol/l 8-16 [facility], [address] [place] [address] 44522 Anion Gap March 11, 2020 12:14pm 13 mmol/l 8-16 [facility], [address] [place] [address] 64903 Anion Gap March 02, 2020 11:00am 12 mmol/l 8-16 [facility], [address] [place] [address] 49825 Anion Gap February 26, 2020 10:02am 13 mmol/l 8-16 [facility], [address] [place] [address] 22595 Anion Gap February 20, 2020 8:35am 13 mmol/l 8-16 [facility], [address] [place] [address] 73241 Glucose Level August 30, 2020 8:15pm 90 mg/dL 74-106 [facility], [address] [place] [address] 63762 Glucose Level August 09, 2020 7:35pm 89 mg/dL 74-106 [facility], [address] [place] [address] 18422 Glucose Level August 03, 2020 2:35pm 87 mg/dL 74-106 [facility], [address] [place] [address] 12892 Glucose Level July 01, 2020 9:40pm 100 mg/dL 74-106 [facility], [address] [place] [address] Glucose Level May 18, 2020 6:17am 93 mg/dL 74-106 [facility], [address] [place] [address] 97432 Glucose Level March 25, 2020 8:11am 93 mg/dL 74-106 [facility], [address] [place] [address] 73040 Glucose Level March 11, 2020 12:14pm 88 mg/dL 74-106 [facility], [address] [place] [address] 79209 Glucose Level March 02, 2020 11:00am 91 mg/dL 74-106 [facility], [address] [place] [address] 19191 Glucose Level February 26, 2020 10:02am 92 mg/dL 74-106 [facility], [address] [place] [address] 57159 Glucose Level February 20, 2020 8:35am 98 mg/dL 74-106 [facility], [address] [place] [address] 20602 Creatinine August 30, 2020 8:15pm 1.1 mg/dL 0.5-1.1 [facility], [address] [place] [address] Creatinine August 09, 2020 7:35pm 1.3 mg/dL 0.5-1.1 [facility], [address] [place] [address] Creatinine August 03, 2020 2:35pm 0.8 mg/dL 0.5-1.1 [facility], [address] [place] [address] Creatinine July 01, 2020 9:40pm 0.9 mg/dL 0.5-1.1 [facility], [address] [place] [address] Creatinine May 18, 2020 6:17am 0.7 mg/dL 0.5-1.1 [facility], [address] [place] [address] Creatinine March 25, 2020 8:11am 0.9 mg/dL 0.5-1.1 [facility], [address] [place] [address] Creatinine March 11, 2020 12:14pm 1.2 mg/dL 0.5-1.1 [facility], [address] [place] [address] Creatinine March 02, 2020 11:00am 1.0 mg/dL 0.5-1.1 [facility], [address] [place] [address] Creatinine February 26, 2020 10:02am 1.0 mg/dL 0.5-1.1 [facility], [address] [place] [address] Creatinine February 20, 2020 8:35am 1.1 mg/dL 0.5-1.1 [facility], [address] [place] [address] Glomerular Filtration Rate Calc Lukas krystina 2020 8:15pm 60 ml/min ABOVE 60 [facility], [address] [place] [address] 21347 Glomerular Filtration Rate Calc Dece mb2019 7:35pm 50 ml/min ABOVE 60 [facility], [address] [place] [address] 12600 Glomerular Filtration Rate Calc Dece mb2019 2:35pm Greater than 60 ml/min ABOVE 60 [facility], [address] [place] [address] Glomerular Filtration Rate Calc Nove mb2019 9:40pm Greater than 60 ml/min ABOVE 60 [facility], [address] [place] [address] 34749 Glomerular Filtration Rate Calc Sept emb2019 6:17am Greater than 60 ml/min ABOVE 60 [facility], [address] [place] [address] 42987 Glomerular Filtration Rate Calc Augu 2019 8:11am Greater than 60 ml/min ABOVE 60 [facility], [address] [place] [address] Glomerular Filtration Rate Calc March 11, 2020 12:14pm 55 ml/min ABOVE 60 [facility], [address] [place] [address] Glomerular Filtration Rate Calc March 02, 2020 11:00am Greater than 60 ml/min ABOVE 60 [facility], [address] [place] [address] Glomerular Filtration Rate Calc February 26, 2020 10:02am Greater than 60 ml/min ABOVE 60 [facility], [address] [place] [address] Glomerular Filtration Rate Calc February 20, 2020 8:35am Greater than 60 ml/min ABOVE 60 [facility], [address] [place] [address] [id number] Alanine Aminotransferase (ALT/SGPT) August 09, 2020 7:35pm 30 U/L 10-49 [facility], [address] [place] [address] [id number] Alanine Aminotransferase (ALT/SGPT) August 03, 2020 2:35pm 42 U/L 10-49 [facility], [address] [place] [address] Alanine Aminotransferase (ALT/SGPT) July 01, 2020 9:40pm 43 U/L 10-49 [facility], [address] [place] [address] 26504 Alanine Aminotransferase (ALT/SGPT) May 18, 2020 6:17am 52 U/L 10-49 [facility], [address] [place] [address] 45225 Alanine Aminotransferase (ALT/SGPT) March 25, 2020 8:11am 27 U/L 10-49 [facility], [address] [place] [address] [id number] Alanine Aminotransferase (ALT/SGPT) March 11, 2020 12:14pm 29 U/L 10-49 [facility], [address] [place] [address] [id number] Alanine Aminotransferase (ALT/SGPT) March 02, 2020 11:00am 29 U/L 10-49 [facility], [address] [place] [address] [id number] Alanine Aminotransferase (ALT/SGPT) February 26, 2020 10:02am 33 U/L 10-49 [facility], [address] [place] [address] [id number] Alanine Aminotransferase (ALT/SGPT) February 20, 2020 8:35am 42 U/L 10-49 [facility], [address] [place] [address] [id number] Aspartate Amino Transf (AST/SGOT) De cember 2019 7:35pm 13 U/L 0-33 [facility], [address] [place] [address] [id number] Aspartate Amino Transf (AST/SGOT) De cember 2019 2:35pm 35 U/L 0-33 [facility], [address] [place] [address] 19098 Aspartate Amino Transf (AST/SGOT) No vember 2019 9:40pm 21 U/L 0-33 [facility], [address] [place] [address] [id number] Aspartate Amino Transf (AST/SGOT) Se ptember 2019 6:17am 27 U/L 0-33 [facility], [address] [place] [address] 01607 Aspartate Amino Transf (AST/SGOT) Au kem 2019 8:11am 15 U/L 0-33 [facility], [address] [place] [address] [id number] Aspartate Amino Transf (AST/SGOT) Ju ly 2019 12:14pm 17 U/L 0-33 [facility], [address] [place] [address] 30001 Aspartate Amino Transf (AST/SGOT) Ju ly 2019 11:00am 14 U/L 0-33 [facility], [address] [place] [address] 18225 Aspartate Amino Transf (AST/SGOT) Ju ly 2019 10:02am 17 U/L 0-33 [facility], [address] [place] [address] [id number] Aspartate Amino Transf (AST/SGOT) Ju ne 2019 8:35am 23 U/L 0-33 [facility], [address] [place] [address] 79402 Alkaline Phosphatase August 09, 2020 7:35pm 122 U/L 45-129 [facility], [address] [place] [address] Alkaline Phosphatase August 03, 2020 2:35pm 125 U/L 45-129 [facility], [address] [place] [address] 69274 Alkaline Phosphatase July 01 020 9:40pm 139 U/L 45-129 [facility], [address] [place] [address] [id number] Alkaline Phosphatase May 18, 2020 6:17am 110 U/L 45-129 [facility], [address] [place] [address] [id number] Alkaline Phosphatase March 25 0 8:11am 122 U/L 45-129 [facility], [address] [place] [address] Alkaline Phosphatase March 11, 2020 12:14pm 129 U/L 45-129 [facility], [address] [place] [address] 20952 Alkaline Phosphatase March 02, 2020 11:00am 136 U/L 45-129 [facility], [address] [place] [address] Alkaline Phosphatase February 26, 2020 10:02a m 147 U/L 45-129 [facility], [address] [place] [address] 03582 Alkaline Phosphatase February 20, 2020 8:35a m 149 U/L 45-129 [facility], [address] [place] [address] 14200 Amylase Level August 09, 2020 7:35pm 39 U/L 30-118 [facility], [address] [place] [address] 06499 Amylase Level August 03, 2020 2:35pm 31 U/L 30-118 [facility], [address] [place] [address] 22253 Amylase Level May 17, 2020 7:20pm 39 U/L 30-118 [facility], [address] [place] [address] 82426 Amylase Level March 25, 2020 8:11am 35 U/L 30-118 [facility], [address] [place] [address] 86333 Lipase August 09, 2020 7:35pm 90 U/L 73-393 [facility], [address] [place] [address] 07163 Lipase August 03, 2020 2:35pm 68 U/L 73-393 [facility], [address] [place] [address] 50733 Lipase May 17, 2020 7:20pm 89 U/L 73-393 [facility], [address] [place] [address] 73958 Lipase March 25, 2020 8:11am 97 U/L 73-393 [facility], [address] [place] [address] 78005 Lipase March 11, 2020 12:14pm 128 U/L 73-393 [facility], [address] [place] [address] 10454 Calcium Level August 30, 2020 8:15pm 9.6 mg/dL 8.5-10.1 [facility], [address] [place] [address] 17519 Calcium Level August 09, 2020 7:35pm 9.5 mg/dL 8.5-10.1 [facility], [address] [place] [address] 98573 Calcium Level August 03, 2020 2:35pm 9.1 mg/dL 8.5-10.1 [facility], [address] [place] [address] 63544 Calcium Level July 01, 2020 9:40pm 9.2 mg/dL 8.5-10.1 [facility], [address] [place] [address] 30201 Calcium Level May 18, 2020 6:17am 8.5 mg/dL 8.5-10.1 Delta: 9.6 on 05/17/20-2019Repeated by: Roderick Cee 05/18/20 0824.Result Confirmation: 8.3 # mg/dL [facility], [address] [place] [address] 59798 Calcium Level March 25, 2020 8:11am 8.9 mg/dL 8.5-10.1 [facility], [address] [place] [address] 26576 Calcium Level March 11, 2020 12:14pm 8.6 mg/dL 8.5-10.1 [facility], [address] [place] [address] 89710 Calcium Level March 02, 2020 11:00am 9.0 mg/dL 8.5-10.1 [facility], [address] [place] [address] 20060 Calcium Level February 26, 2020 10:02am 9.0 mg/dL 8.5-10.1 [facility], [address] [place] [address] 38261 Calcium Level February 20, 2020 8:35am 9.4 mg/dL 8.5-10.1 [facility], [address] [place] [address] 46110 Total Bilirubin August 09, 2020 7:35pm 0.3 mg/dL 0.3-1.2 [facility], [address] [place] [address] 31648 Total Bilirubin August 03, 2020 2:35pm 0.4 mg/dL 0.3-1.2 [facility], [address] [place] [address] 35903 Total Bilirubin July 01, 2020 9:40pm 0.3 mg/dL 0.3-1.2 [facility], [address] [place] [address] 39244 Total Bilirubin May 18, 2020 6:17a m 0.3 mg/dL 0.3-1.2 [facility], [address] [place] [address] 48873 Total Bilirubin March 25, 2020 8:11am 0.2 mg/dL 0.3-1.2 [facility], [address] [place] [address] 11065 Total Bilirubin March 11, 2020 12:14pm 0.2 mg/dL 0.3-1.2 [facility], [address] [place] [address] 53813 Total Bilirubin March 02, 2020 11:00am 0.4 mg/dL 0.3-1.2 [facility], [address] [place], [place] [address] Total Bilirubin February 26, 2020 10:02am 0.3 mg/dL 0.3-1.2 [facility], [address] [place] [address] Total Bilirubin February 20, 2020 8:35am 0.3 mg/dL 0.3-1.2 [facility], [address] [place], [place] [address] Albumin August 09, 2020 7:35pm 3.6 g/dL 3.2-4.8 [facility], [address] [place], [place] [address] Albumin August 03, 2020 2:35pm 3.5 g/dL 3.2-4.8 [facility], [address] [place], [place] [address] Albumin July 01, 2020 9:40pm 3.5 g/dL 3.2-4.8 [facility], [address] [place], [place] [address] Albumin May 18, 2020 6:17am 3.0 g/dL 3.2-4.8 [facility], [address] [place], [place] [address] Albumin March 25, 2020 8:11am 3.0 g/dL 3.2-4.8 [facility], [address] [place], [place] [address] Albumin March 11, 2020 12:14pm 3.2 g/dL 3.2-4.8 [facility], [address] [place], [place] [address] Albumin March 02, 2020 11:00am 3.1 g/dL 3.2-4.8 [facility], [address] [place], [place] [address] Albumin February 26, 2020 10:02am 3.4 g/dL 3.2-4.8 [facility], [address] [place], [place] [address] Albumin February 20, 2020 8:35am 3.5 g/dL 3.2-4.8 [facility], [address] [place] [address] Serum Total Protein August 09, 2 020 7:35pm 8.2 g/dL 5.7-8.2 [facility], [address] [place], [place] [address] Serum Total Protein August 03, 2 020 2:35pm 8.1 g/dL 5.7-8.2 [facility], [address] [place] [address] 28019 Serum Total Protein July 01 9:40pm 8.0 g/dL 5.7-8.2 [facility], [address] [place] [address] Serum Total Protein May 18, 2020 6:17am 6.6 g/dL 5.7-8.2 [facility], [address] [place] [address] Serum Total Protein March 25, 2020 8:11a m 7.7 g/dL 5.7-8.2 [facility], [address] [place], [place] [address] Serum Total Protein March 11, 2020 12:14p m 7.6 g/dL 5.7-8.2 [facility], [address] [place] [address] Serum Total Protein March 02, 2020 11:00a m 7.9 g/dL 5.7-8.2 [facility], [address] [place] [address] Serum Total Protein February 26, 2020 10:02am 7.6 g/dL 5.7-8.2 [facility], [address] [place] [address] 31677 Serum Total Protein February 20, 2020 8:35am 7.9 g/dL 5.7-8.2 [facility], [address] [place] [address] 29431 Lactic Acid Level July 01, 2020 9:40p m 1.0 mmol/L 0.5-2.2 [facility], [address] [place] [address] 99666 Human Chorionic Gonadotropin, Quant August 09, 2020 7:35pm 04227 mIU/mL 0-10 APPROXIMATE GESTATION AGE APRROX IMATE HCG RANGE 0-1 WEEK 0 - 50 1-2 WEEKS 40 - 300 2-3 WEEKS 100 - 1,000 3-4 WEEKS 500 - 6,000 1-2 MONTHS 5,000 - 200,000 2-3 MONTHS 10,000 - 100,000 2ND TRIMESTER 3,000 - 50,000 3RD TRIMESTER 1,000 - 50,000 [facility], [address] [place] [address] 04775 Human Chorionic Gonadotropin, Quant August 14, 2020 9:31am 15287 mIU/mL 0-10 APPROXIMATE GESTATION AGE APRROX IMATE HCG RANGE 0-1 WEEK 0 - 50 1-2 WEEKS 40 - 300 2-3 WEEKS 100 - 1,000 3-4 WEEKS 500 - 6,000 1-2 MONTHS 5,000 - 200,000 2-3 MONTHS 10,000 - 100,000 2ND TRIMESTER 3,000 - 50,000 3RD TRIMESTER 1,000 - 50,000 [facility], [address] [place] [address] 66339 Human Chorionic Gonadotropin, Quant August 03, 2020 2:35pm 65718 mIU/mL 0-10 APPROXIMATE GESTATION AGE APRROX IMATE HCG RANGE 0-1 WEEK 0 - 50 1-2 WEEKS 40 - 300 2-3 WEEKS 100 - 1,000 3-4 WEEKS 500 - 6,000 1-2 MONTHS 5,000 - 200,000 2-3 MONTHS 10,000 - 100,000 2ND TRIMESTER 3,000 - 50,000 3RD TRIMESTER 1,000 - 50,000 [facility], [address] [place] [address] 24558 Human Chorionic Gonadotropin, Quant July 01, 2020 10:10am Less than 1 mIU/mL 0-1 0 APPROXIMATE GESTATION AGE APRROX IMATE HCG RANGE 0-1 WEEK 0 - 50 1-2 WEEKS 40 - 300 2-3 WEEKS 100 - 1,000 3-4 WEEKS 500 - 6,000 1-2 MONTHS 5,000 - 200,000 2-3 MONTHS 10,000 - 100,000 2ND TRIMESTER 3,000 - 50,000 3RD TRIMESTER 1,000 - 50,000 [facility], [address] [place] [address] 28687 Thyroid Stimulating Hormone (TSH) Ju 2019 10:02am 1.84 uIU/mL 0.35-5.50 [facility], [address] [place] [address] 78940 Serum Test, Qualitative De cember 2019 2:35pm Positive NEGATIVE [facility], [address] [place] [address] 64196 Serum Test, Qualitative No vember 2019 9:40pm Negative NEGATIVE [facility], [address] [place] [address] 14487 Serum Test, Qualitative Se ptember 2019 7:20pm Negative NEGATIVE [facility], [address] [place] [address] 42057 Serum Test, Qualitative Au kem 2019 8:11am Negative NEGATIVE [facility], [address] [place] [address] 94212 Urine HCG, Qualitative March 11 11:00am Negative NEGATIVE [facility], [address] [place] [address] 00948 Urine HCG, Qualitative March 02 11:00am Negative NEGATIVE [facility], [address] [place] [address] 06805 Urine HCG, Qualitative February 19 8:32am Negative NEGATIVE [facility], [address] [place] [address] Coronavirus (COVID-19)(PCR) March 252019 2:30pm Not detected Not Detec dee This test was developed and its performa nce characteristicsdetermined by [email or web address]. This test has not beenFDA cleared or [...] in this assay.Performed at: [facility] [address] [id number] Director: Deisy Hdez MD, Phone: [phone] [facility] , [address] [facility] [address] Urine Random Creatinine February 27 7:19am 234.0 mg/dL THERE IS NO ESTABLISHED RANGE FOR RANDOM URINE CREATININE [facility], [address] [place] [address] Urine Microalbumin February 28, 2020 7:19am 13.7 mg/L 0.0-29.9 [facility], [address] [place] [address] Urine Microalbumin/Creatinine Ratio February 28, 2020 7:19am 5.8 ug/mg 0.0-30.0 [facility], [address] [place] [address] 47734 Hemoglobin A1c February 26, 2020 10:02am 5.3 [...] glucose control. * High risk of developing detention complications such asretinopathy, nephropathy, neuropathy, cardiopathy, etc. Some danger of hypoglycemic reaction in Type I diabetics.Some glucose intolerant individuals and "Sub Clinical"diabetics may demonstrate HGBA1C levels in this area. [facility], [address] [place] [address] Estimated Average Glucose (eAG) February 26, 2020 10:02am 105 mg/dl An A1C of 7% - the goal of diabetic therapy - is equivalentto an EAG of 154 mg/dl. [facility], [address] [place] [address] Microbiology Results Procedure Source Result Collection Date/Time Result Date/Time Result Comment Performing Site Urine Culture Urine,voided August 30, 2020 8:15pm August 2:09pm [facility], [address] [place] [address] 45368 Urine Culture Urine,voided August 09, 2020 8:06pm August 11, 2020 7:16am [facility], [address] [place] [address] Urine Culture Urine,clean catch August 03, 2020 2:50pm August 04, 2020 11:45am [facility], [address] [place] [address] 84226 Urine Culture Urine,voided July 01, 2020 9:30pm June 232019 7:24am [facility], [address] [place] [address] Urine Culture Urine,voided May 18, 2020 1:15am Septemb2019 11:25am [facility], [address] [place] [address] 83701 Urine Culture Urine,clean catch March 25, 2020 9:05am March 26, 2020 1:36pm [facility], [address] [place] [address] 30106 Urine Culture Urine,clean catch March 11, 2020 12:00pm March 12, 2 020 1:24pm [facility], [address] [place] [address] 77916 Urine Culture Urine,voided March 05, 2020 3:29pm March 06 9:18am [facility], [address] [place] [address] 61425 Urine Culture Urine,voided March 02, 2020 11:48am March 03, 2 020 8:26am [facility], [address] [place] [address] 66469 Streptococcus Rapid Screen Throat March 13, 2020 10:34am March 14, 2 020 8:58am [facility], [address] [place], [place] [address] Streptococcus Rapid Screen Throat March 13, 2020 10:34am March 13, 2 020 11:04am [facility], [address] [place] [address] 39111 Blood Culture Venous blood No growth. July 01, 2020 9:40pm June 232019 9:46pm [facility], [address] [place] [address] 72136 SARS-CoV-2 (PCR) Interpretation Naso pharyngeal No Organisms Detected July 01, 2020 9:45pm July 01, 2020 10:29pm [facility], [address] [place] [address] 22248 Nasal BinaxNow Covid - 19 Ag Negative July 30, 2020 9:45am July 302019 11:56am [facility], [address] [place] [address] 72359 Influenza-Like Illness (PCR) Nasopharyngea l No Organisms Detected August 22, 2020 6:22am August 22, 2020 7:41am [facility], [address] [place] [address] 14500 Nasopharyngeal August 22, 2020 6:22am August 22, 2020 7:41am [facility], [address] [place] [address] 65894 Gastrointestinal Tract Panel (PCR) Stool C. difficile toxin detected May 17, 2020 3:03pm May 17, 2020 5:25pm [facility], [address] [place] [address] 97010 Respiratory Panel (PCR) Nasopharyngeal No Organisms Detected May 18, 2020 1:40am May 18, 2020 2:49am [facility], [address] [place] [address] 21031 Diagnostic Imaging Reports Report Dictated Date/Time Dictated By Status Radiology Report February 28, 2020 9:48am Oliverio Chen MD completed [facility] [address] [place] [address] [phone] NAME SEX PT STATUS ACCOUNT NUMBER ANNA MARIE BELTRAN [facility] REF [id number] ORDERING PHYSICIAN LOCATION MEDICAL RECORD NO. Jose Kramer DO [id number] ATTENDING PHYSICIAN DATE OF DATE OF EXAM/TIME [...] 2020 1:53pm Warren Bourne MD completed [facility] [address] [facility] [place] [address] [phone] NAME SEX PT STATUS ACCOUNT NUMBER ANNA MARIE BELTRAN [facility] [id number] ORDERING PHYSICIAN LOCATION MEDICAL RECORD NO. Sameer Islas MD ER [id number] ATTENDING PHYSICIAN DATE OF DATE OF EXAM/TIME [...] 12, 2020 2:59pm Oliverio Chen MD completed [place] [address] [place] [address] [phone] NAME SEX PT STATUS ACCOUNT NUMBER ANNA MARIE BELTRAN [facility] REF [id number] ORDERING PHYSICIAN LOCATION MEDICAL RECORD NO. Pola Meadows MD [id number] ATTENDING PHYSICIAN DATE OF DATE OF EXAM/TIME [...] 25, 2020 10:18am Oliverio Chen MD completed [facility] [address] [place] [address] [phone] NAME SEX PT STATUS ACCOUNT NUMBER ANNA MARIE BELTRAN [facility] [id number] ORDERING PHYSICIAN LOCATION MEDICAL RECORD NO. Hiren Perez MD ER [id number] ATTENDING PHYSICIAN DATE OF DATE OF EXAM/TIME [...] May 17 9:41pm Ulisses Sethi MD completed [facility] [address] [place] 0[address]851 [phone] NAME SEX PT STATUS ACCOUNT NUMBER ANNA MARIE BELTRAN [facility] [id number] ORDERING PHYSICIAN LOCATION MEDICAL RECORD NO. Mikhail Sheriff MD ER [id number] ATTENDING PHYSICIAN DATE OF DATE OF EXAM/TIME [...] 2020 10:55p m Telly Robledo MD completed [place] [address] [place] [address] [phone] NAME SEX PT STATUS ACCOUNT NUMBER ANNA MARIE BELTRAN [facility] [id number] ORDERING PHYSICIAN LOCATION MEDICAL RECORD NO. Mikhail Sheriff MD ER [id number] ATTENDING PHYSICIAN DATE OF DATE OF EXAM/TIME [...] Trans Dt/Tm: Trans by: DT Prt Dt/Tm: [id number]: Total DLP = 0.00 mGy-cm Fluoroscopy Time (in secs): Radiology Report July 01, 2020 11:07p m Niels Wilkerson MD completed [place] [id number] [phone] NAME SEX PT STATUS ACCOUNT NUMBER ANNA MARIE BELTRAN [facility] ER [id number] ORDERING PHYSICIAN LOCATION MEDICAL RECORD NO. Mikhail Sheriff MD ER [id number] ATTENDING PHYSICIAN DATE OF DATE OF EXAM/TIME [...] Trans Dt/Tm: Trans by: DT Prt Dt/Tm: 5717-8317: Total DLP = 1469.00 mGy-cm 7796-4408: Total Radiation Dose = 22.0350 mSv Lifetime Dose: 56.7900 mS v Radiology Report August 03, 2020 7:33p m Gibran Villa MD completed [facility] [address] [place] [address] [phone] NAME SEX PT STATUS ACCOUNT NUMBER ANNA MARIE BELTRAN [facility] ER [id number] ORDERING PHYSICIAN LOCATION MEDICAL RECORD NO. Daljit Alex MD ER [id number] ATTENDING PHYSICIAN DATE OF DATE OF EXAM/TIME [...] 2020 7:59p m Telly Robledo MD completed [place] [address] [place] [address] [phone] NAME SEX PT STATUS ACCOUNT NUMBER ANNA MARIE BELTRAN [facility] ER [id number] ORDERING PHYSICIAN LOCATION MEDICAL RECORD NO. Daljit Alex MD ER [id number] ATTENDING PHYSICIAN DATE OF DATE OF EXAM/TIME [...] 2020 7:34p m Gibran Villa MD completed [place] [address] [place] [address] [phone] NAME SEX PT STATUS ACCOUNT NUMBER ANNA MARIE BELTRAN [facility] ER [id number] ORDERING PHYSICIAN LOCATION MEDICAL RECORD NO. Daljit Alex MD ER [id number] ATTENDING PHYSICIAN DATE OF DATE OF EXAM/TIME Nicol Sebastian MEDICAL COLLECTIONS REPRESENTATIVE 1994 08/03/201858 TYPE / EXAM US OB Ultrasound <14 weeks REASON FOR EXAM RLQ PAIN; R/O ECTOPIC [place] [address] [place] [address] [phone] NAME SEX PT STATUS ACCOUNT NUMBER ANNA MARIE BELTRAN [facility] ER [id number] ORDERING PHYSICIAN LOCATION MEDICAL RECORD NO. Daljit Alex MD ER [id number] ATTENDING PHYSICIAN DATE OF DATE OF EXAM/TIME Nicol Sebastian MEDICAL COLLECTIONS REPRESENTATIVE 1994 08/03/201857 TYPE / EXAM US OB [...] 2020 9:02p m Telly Robledo MD completed [facility] [address] [place] [address]861 [phone] NAME SEX PT STATUS ACCOUNT NUMBER ANNA MARIE BELTRAN Zak [facility] ER [id number] ORDERING PHYSICIAN LOCATION MEDICAL RECORD NO. Mikhail Sheriff MD ER [id number] ATTENDING PHYSICIAN DATE OF DATE OF EXAM/TIME Nicol Sebastian NP 1994 08/09/202038 TYPE / EXAM US OB Ultrasound <14 weeks REASON FOR EXAM Gen abd pain. +HCG ANNA MARIE BELTRAN [id number] 1994 ADDENDUM Clinical History/Indication for Exam: Gen [...] Trans Dt/Tm: Trans by: DT Prt Dt/Tm: 6727-5712: Total DLP = 0.00 mGy-cm 3076-1644: Total Radiation Dose = 0.0000 mSv Lifetime Dose: 56.7900 mSv Radiology Report August 14, 2020 11:09am Oliverio Chen MD completed [facility] [address] [place] 0[address]9867 [phone] NAME SEX PT STATUS ACCOUNT NUMBER ANNA MARIE BELTRAN [facility] REF [id number] ORDERING PHYSICIAN LOCATION MEDICAL RECORD NO. Jarret Herbert MD [id number] ATTENDING PHYSICIAN DATE OF DATE OF EXAM/TIME Niocl Sebastian NP 1995 08/14/20915 TYPE / EXAM US OB Ultrasound <14 weeks REASON FOR EXAM FOLLOW UP SUBCHOR/ EARLY COMPARISON: August 19, 2020 and 2019 FINDINGS: Gestation: Single Canovanas-rump length: Singlemm compatible with a Single week Single day gestational age. Yolk sac: Not seen No heart rate detected. Uterus: 8.5 x 4.6 x 7.0cm. A subchorionic hemorrhage is still seen. Average ultrasound age of 5 weeks 6 days. EDC: April 10, 2021. Canovanas-rump length: 3.4mm IMPRESSION: 1. Gestational sac measurements, unchanged. 2. Subarachnoid hemorrhage is still seen. 3. Linear intraamniotic echogenicity, possibly the pole. No heart rate detected. Reported By Oliverio Chen MD on 08/14/20 1109 Signed By Oliverio Chen MD on 08/14/20 1114 Date Time CC: Nicol Sebastian; Oliverio Chen MD Techn: FREST Trans Dt/Tm: Trans by: DT Prt Dt/Tm: 9530-5175: Total DLP = 0.00 mGy-cm 4297-5336: Total Radiation Dose = 0.0000 mSv Lifetime Dose: 56.7900 mSv Radiology Report August 09, 2020 9:05p m Telly Robledo MD completed [address] [address] [phone] NAME SEX PT STATUS ACCOUNT NUMBER ANNA MARIE BELTRAN [facility] ER [id number] ORDERING PHYSICIAN LOCATION MEDICAL RECORD NO. Mikhail Sheriff MD ER [id number] ATTENDING PHYSICIAN DATE OF DATE OF EXAM/TIME Nicol Sebastian NP 1994 08/09/202039 TYPE / EXAM US OB Transvaginal REASON FOR EXAM PAIN [address] [address] [phone] NAME SEX PT STATUS ACCOUNT NUMBER ANNA MARIE BELTRAN [facility] ER [id number] ORDERING PHYSICIAN LOCATION MEDICAL RECORD NO. Mikhail Sheriff MD ER [id number] ATTENDING PHYSICIAN DATE OF DATE OF EXAM/TIME Nicol Sebastian NP 1994 08/09/202038 TYPE / EXAM US OB Ultrasound <14 weeks REASON FOR EXAM Gen abd pain. +HCG ANNA MARIE BELTRAN [id number] 1994 ADDENDUM Clinical History/Indication for Exam: Gen [...] Trans Dt/Tm: Trans by: DT Prt Dt/Tm: 2471-9609: Total DLP = 0.00 mGy-cm 5018-5876: Total Radiation Dose = 0.0000 mSv Lifetime Dose: 56.7900 mSv Reported By Telly Robledo MD on 08/09/20 2105 Signed By Telly Robledo MD on 08/14/20 1245 Date Time CC: Nicol Sebastian; Telly Robledo MD Techn: CARAI Trans Dt/Tm: Trans by: DT Prt Dt/Tm: 9041-5086: Total DLP = 0.00 mGy-cm 1757-9261: Total Radiation Dose = 0.0000 mSv Lifetime Dose: 56.7900 mSv Radiology Report August 21, 2020 10:47am Oliverio Chen MD completed [place] [address] [place] [address] [phone] NAME SEX PT STATUS ACCOUNT NUMBER ANNA MARIE BELTRAN [facility] REF [id number] ORDERING PHYSICIAN LOCATION MEDICAL RECORD NO. Jarret Herbert MD [id number] ATTENDING PHYSICIAN DATE OF DATE OF EXAM/TIME Nicol Sebastian NP 1994 08/21/20 / 1017 TYPE / EXAM US OB Transvaginal REASON FOR EXAM EVAL FOR IUP COMPARISON: August 14, 2020. FINDINGS: Gestation: Single Canovanas-rump length: No pole seen. Gestational sac: 13.4 [...] Trans Dt/Tm: Trans by: DT Prt Dt/Tm: 5012-9348: Total DLP = 0.00 mGy-cm 1487-7121: Total Radiation Dose = 0.0000 mSv Lifetime Dose: 56.7900 mSv Radiology Report August 21, 2020 10:47am Oliverio Chen MD completed [place] [id number] [place] [id number] [phone] NAME SEX PT STATUS ACCOUNT NUMBER ANNA MARIE BELTRAN [facility] REF [id number] ORDERING PHYSICIAN LOCATION MEDICAL RECORD NO. Jarret Herbert MD [id number] ATTENDING PHYSICIAN DATE OF DATE OF EXAM/TIME Nicol Sebastian NP 1995 08/21/20 / 1017 TYPE / EXAM US OB Ultrasound <14 weeks REASON FOR EXAM Re-evaluation for subchor. COMPARISON: August 14, 2020. FINDINGS: Gestation: Single [place]-rump length: No pole seen. Gestational sac: 13.4 [...] Trans Dt/Tm: Trans by: DT Prt Dt/Tm: 3856-0141: Total DLP = 0.00 mGy-cm 3819-6852: Total Radiation Dose = 0.0000 mSv Lifetime Dose: 56.7900 mSv Health Concerns Health Concerns may be documented in an alternate section. Advance Directives Advance Directive Response Recorded Date/Time Advanced Directive No Tee kellykrystina 2020 9:57am MOLST No September 02 9:57am [...] PAIN ABDOMINAL PAIN, BLOOD IN URINE/STOOL PAIN ILLUMINATOR Initial Visit Hernia ILLUMINATOR SUBCHORIONIC BLEED O02.1/SUCTION D+C [id number] ILLUMINATOR Post op care ABDOMINAL PAIN Telemed Visit Reason for Visit Anxiety Depression GERD (gastroesophageal reflux disease) Hepatomegaly HTN (hypertension) Morbid obesity PTSD (post-traumatic stress disorder) Metrorrhagia Anxiety Depression HTN (hypertension) Morbid obesity PTSD (post-traumatic stress disorder) Anxiety Nausea Abdominal pain Abdominal pain Abdominal pain Insomnia Anxiety Depression Morbid obesity Numbness and tingling of both legs Morbid obesity Encounters Encounter Location(s) Ar rival/Admit Date Discharge/Depart Date Provider[facility]) [facility] February 20, 2020 8:12am Bianka Sen MD Departed Physician/Provider Office Visit [facility] February 20, 2020 10:22am February 20, 2020 11:42am Cesario Metcalf [facility], 2020 9:54am Jose Kramer DO [facility]istered [facility] February 28, 2020 6:57am Jose Kramer DO Departed Emergency [facility] ER March 02, 2020 10:34am March 02, 2020 1:45pm null Departed Emergency [facility] March 05, 2020 2:01pm March 05, 2020 4:29pm null Departed Physician/Provider Office Visit [facility] March 11, 2020 9:28am March 11, 2020 10:13am Trice dimas NP Departed Physician/Provider Office Visit [facility] March 11, 2020 10:17am March 11, 2020 11:49am Pola Meadows MD Registered [facility] March 11, 2020 11:56am Trice Aj NP Registered [facility] March 12, 2020 11:38am Pola Meadows MD Departed Physician/Provider Office Visit [facility] March 12, 2020 12:22pm March 12, 2020 2:13pm Trice holbrook NP Departed Emergency [facility] ER March 13, 2020 9:18am March 13, 2020 10:18am null Departed Emergency [facility] ER March 25, 2020 7:55am March 25, 2020 9:27am null Departed Physician/Provider Office Visit [facility] March 25, 2020 2:51pm March 25, 2020 2:52pm Nathalie valerio Registered [facility] March 25, 2020 3:08pm Nathalie Pace Departed Physician/Provider Office Visit [facility] March 28, 2020 7:01am March 28, 2020 7:47am Trice dimas NP Registered Outpatient [facility] Internal Medicine April 05, 2020 8:29am Trice Aj NP Registered [facility] May 17, 2020 1:48pm Trice Aj NP Discharged Inpatient [facility] May 18, 2020 12:18am Septemb er 2019 2:40pm Tad Menendez MD Registered Outpatient [facility] May 20, 2020 2:25pm Amara Garcia RN Departed Physician/Provider Office Visit [facility] May 23, 2020 7:51am May 23, 2020 8:35am Trice Aj NP Departed Physician/Provider Office Visit [facility] May 30, 2020 9:25am May 30, 2020 11:56am Nicol rincon NP Departed Physician/Provider Office Visit [facility] June 10, 2020 8:26am June 10, 2020 8:58am Jarret Herbert MD Departed Physician/Provider Office Visit [facility] June 28, 2020 3:47pm June 28, 2020 4:33pm Nicol Sebastian NP Departed Physician/Provider Office Visit [facility] July 01, 2020 9:04am July 01, 2020 11:04am Nicol Sebastian NP Registered [facility] July 01, 2020 9:47am Kiersten Schulz DO Departed Emergency [facility] July 01, 2020 8:40pm July 02, 2020 12:20am null Departed Physician/Provider Office Visit [facility] July 04, 2020 11:14am July 04, 2020 12:47pm Nicol Sebastian NP Departed Physician/Provider Office Visit [facility] July 25, 2020 9:54am July 25, 2020 10:57am Nicol Sebastian NP Registered [facility] July 30, 2020 9:45am Jaki Elias MD Departed Emergency [facility] August 03, 2020 1:29pm August 03, 2020 8:21pm null Departed Emergency [facility] August 09, 2020 6:19pm August 10, 2020 5:45am null [facility]istered [facility] August 14, 2020 9:29am Jarret Herbert MD Departed Physician/Provider Office Visit [facility] August 14, 2020 9:41am August 14, 2020 11:45am Patrick Herbert MD Departed Physician/Provider Office Visit [facility] Surgery August 20, 2020 9:00am August 20, 2020 9:20am Barrett Sparks MD Departed Physician/Provider Office Visit [facility] August 21, 2020 10:25am August 21, 2020 11:32am Jarret Herbert MD Registered [facility] August 21, 2020 11:17am Jarret Herbert MD Departed Surgical Day [facility] August 22, 2020 6:20am August 22, 2020 10:05am Patrick Herbert MD Departed Physician/Provider Office Visit [facility] August 27, 2020 10:07am August 27, 2020 10:41am Jarret Herbert MD Departed Emergency [facility] August 30, 2020 6:50pm August 30, 2020 9:08pm null Departed Physician/Provider Office Visit [facility] September 02, 2020 10:06am September 02, 2020 4:34pm Jose Kramer DO Recent Diagnosis Onset Date Anxiety Depression GERD (gastroesophageal reflux disease) Hepatomegaly HTN (hypertension) Morbid obesity PTSD (post-traumatic stress disorder) Metrorrhagia Anxiety Depression HTN (hypertension) Morbid obesity PTSD (post-traumatic stress disorder) Anxiety Nausea Abdominal pain Abdominal pain Abdominal pain Insomnia Anxiety Depression Morbid obesity Numbness and tingling of both legs Morbid obesity Assessments Diagnosis Onset Date Res olution Status [...] of both legs acute Morbid obesity chronic Family History Relationship Condition A ge at Onset Recorded Date/Time Not Specified Cerebrovascular accide nt (CVA) Unknown Not Specified Hernia Unk nown Functional Status Observation Response Neil e Recorded Functional Status Complete [place] May 18, 2020 1:30am Goals Goals may be documented in an alternate section. Immunizations No Immunization Information Available Mental Status Observation Response Neil e Recorded Cognitive Status Normal Cognition May 18, 2020 1:30am Impairments No impairments or barriers September 02, 2020 9:57am Medical Equipment No Medical Equipment Information available Insurance Providers Guarantor ANNA MARIE BELTRAN Address [address] [place] [address] Contact Info. Home Phone: Payer Policy Id Coverage Id Subscriber's Name Subscriber Id Effective Date Expiration Date [facility] [id number] ANNA MARIE BELTRAN [id number] [facility] [id number] ANNA MARIE BELTRAN [id number] MEDICAID [facility] [id number] ANNA MARIE BELTRAN [id number] MEDICAID [id number] ANNA MARIE BELTRAN [id number] Self Pay Self N/A Plan of Treatment This young lady first presented in May with her plan to discontinue oral contraceptives and rely on condoms. Unsurprisingly she became [...] aware of the patient as well. 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 Increase diet and exercise. Referral to [facility] for chronic inflammation. Elevate legs. 26 [...] Dr. July 26, 2020 for upper GI. [place] foods rice, applesauce, bananas, and toast. Resolved. [...] at this time, d/t recent move to [place]. Will continue current meds and will refer to psych. [employer] T[employer] appt with behavioral health this week. Taking [...] palpation without abnormal physical find ings. Doubt ILLUMINATOR cause but send urine culture in case. [...] Information Provider Address Jarret Herbert MD Email: [email or web address] Phone: [address] [place] [address] c diff - treated with PO vancomycin Trice dimas NP Email: [email or web address] Phone: [facility] [phone] [facility] [phone] Call for an appointment to be seen in the next 48 hours Jose Kramer DO Email: [email or web address] Phone: [address] [place] [phone] Call for an appointment for follow-up for Wednesday or Wednesday Jose Kramer DO Email: [email or web address] Phone: [address] [place] [phone] R79.89 - Other specified abnormal findin gs of blood chemistry,N17.9 - Acute kidney failure, unspecified September 02, 2020 rn primary care Future Procedures Future procedure information is unavailable [...]
--- OUTSIDE RECORDS SUMMARY | 2020-10-18 09:47 | CCD | Continuity of Care Document ---
Author Author [facility] Organization [facility] Address [address] [place] [address] Phone Support Name Relationship Address Phone Jose Kramer PRS [address] [place] [address] FrancyRacheln Bianka PRS [address] [place] [address] John Islas PRS [address] [place] [address] [place] [address] Pola [place] [address] Pola Meadows PRS [address] [place] [address] Hiren Perez PRS [address] [place] [address] Nathalie Pace PRS [address] [place] [address] Verónica Sheriff PRS [address] [place] [address] Tad Menendez PRS [address] [place] [address] Amara Garcia PRS Unknown Unavailable Nicol Sebastian PRS [address] [place] [address] Darnell Herbert PRS [address] [place] [address] Kiersten Schulz PRS [address] [place] [address] [place] [address] Daljit Alex PRS [address] [place] [address] Niels Valdez PRS [address] [place] [address] Barrett Sparks PRS [address] [place] [address] Dmitriy Peraza PRS [address] [place] [address] Allergies, Adverse Reactions, Alerts Allergen Type Severity Reaction Last Updated Verified Status cephalexin Allergy Moder ate Hives August 30, 2020 7:20pm Yes Active latex Allergy Moderate Rash August 30, 2020 7:20pm Yes Active ondansetron Allergy Mode rate Hives August 30, 2020 7:20pm Yes Active sulfamethoxazole Allergy Moderate Hives August 30, 2020 7:20pm Yes Active trimethoprim Allergy Mod erate Hives August 30, 2020 7:20pm Yes Active Medications Medication Status Dose Units [...] daily August 22, 2020 6:55am Ciprofloxacin Hcl Active 250 MG PO 2 Times Per Day August 30, 2020 8:57pm Ferrous Sulfate (Feosol) 325 mg (65 mg [...] (28) tablet Discontinued 1 TAB PO daily 84 April 15, 2020 9:23am May 18, 2020 [...] Active Depression Active Diarrhea Active Snoring Active Anembryonic Active GERD (gastroesophageal reflux disease) [...] Performed Status Urine Culture August 30, 2020 active Influenza-Like Illness (PCR) Decembe r 2019 completed [...] 01, 2020 completed SARS-CoV-2 (PCR) Interpretation Prasanth aiken [address] Abd/pel w/ contrast April [...] August 30, 2020 8:15pm 11.3 10e3/uL 4.45-10.71 [facility], [address] [place] [address] [id number] White Blood Count August 09 0 7:35pm 9.9 10e3/uL 4.45-10.71 [facility], [address] [place] [address] 23027 White Blood Count August 14 0 9:31am 9.8 10e3/uL 4.45-10.71 [facility], [address] [place] [address] 87603 White Blood Count August 03 0 2:35pm 8.6 10e3/uL 4.45-10.71 [facility], [address] [place] [address] White Blood Count July 01, 2020 9:40p m 11.2 10e3/uL 4.45-10.71 [facility], [address] [place], [place] [id number] White Blood Count May 18 6:17am 9.3 10e3/uL 4.45-10.71 [facility], [address] [place] [address] White Blood Count March 25, 2020 8:11am 10.8 10e3/uL 4.45-10.71 [facility], [address] [place] [address] 43442 White Blood Count March 11, 2020 12:14pm 11.3 10e3/uL 4.45-10.71 [facility], [address] [place] [address] White Blood Count March 02, 2020 11:00am 10.3 10e3/uL 4.45-10.71 [facility], [address] [place] [address] White Blood Count February 26, 2020 10:02am 9.8 10e3/uL 4.45-10.71 [facility], [address] [place] [address] White Blood Count February 20, 2020 8:35am 8.8 10e3/uL 4.45-10.71 [facility], [address] [place] [address] 19935 Red Blood Count August 30, 2020 8:15pm 4.26 10e6/uL 4.20-5.40 [facility], [address] [place] [address] Red Blood Count August 09, 2020 7:35pm 4.49 10e6/uL 4.20-5.40 [facility], [address] [place] [address] Red Blood Count August 14, 2020 9:31am 4.57 10e6/uL 4.20-5.40 [facility], [address] [place] [address] 32758 Red Blood Count August 03, 2020 2:35pm 4.47 10e6/uL 4.20-5.40 [facility], [address] [place] [address] 09923 Red Blood Count July 01, 2020 9:40pm 4.51 10e6/uL 4.20-5.40 [facility], [address] [place] [address] Red Blood Count May 18, 2020 6:17a m 4.10 10e6/uL 4.20-5.40 [facility], [address] [place] [address] 78001 Red Blood Count March 25, 2020 8:11am 4.25 10e6/uL 4.20-5.40 [facility], [address] [place] [address] 70185 Red Blood Count March 11, 2020 12:14pm 4.58 10e6/uL 4.20-5.40 [facility], [address] [place] [address] Red Blood Count March 02, 2020 11:00am 4.52 10e6/uL 4.20-5.40 [facility], [address] [place] [address] Red Blood Count February 26, 2020 10:02am 4.84 10e6/uL 4.20-5.40 [facility], [address] [place] [address] Red Blood Count February 20, 2020 8:35am 5.02 10e6/uL 4.20-5.40 [facility], [address] [place] [address] 52278 Hemoglobin August 30, 2020 8:15pm 10.5 g/dL 10.7-15.4 [facility], [address] [place] [address] Hemoglobin August 09, 2020 7:35pm 11.4 g/dL 10.7-15.4 [facility], [address] [place] [address] 57472 Hemoglobin August 14, 2020 9:31am 11.4 g/dL 10.7-15.4 [facility], [address] [place] [address] Hemoglobin August 03, 2020 2:35pm 11.5 g/dL 10.7-15.4 [facility], [address] [place] [address] 54725 Hemoglobin July 01, 2020 9:40pm 11.8 g/dL 10.7-15.4 [facility], [address] [place] [address] Hemoglobin May 18, 2020 6:17am 10.9 g/dL 10.7-15.4 [facility], [address] [place] [address] 72481 Hemoglobin March 25, 2020 8:11am 11.5 g/dL 10.7-15.4 [facility], [address] [place] [address] Hemoglobin March 11, 2020 12:14pm 12.4 g/dL 10.7-15.4 [facility], [address] [place] [address] Hemoglobin March 02, 2020 11:00am 12.1 g/dL 10.7-15.4 [facility], [address] [place] [address] Hemoglobin February 26, 2020 10:02am 13.0 g/dL 10.7-15.4 [facility], [address] [place] [address] Hemoglobin February 20, 2020 8:35am 13.4 g/dL 10.7-15.4 [facility], [address] [place] [address] 73499 Hematocrit August 30, 2020 8:15pm 34.4 % 37-47 [facility], [address] [place] [address] 60916 Hematocrit August 09, 2020 7:35pm 36.1 % 37-47 [facility], [address] [place] [address] 96136 Hematocrit August 14, 2020 9:31am 36.3 % 37-47 [facility], [address] [place] [address] 40393 Hematocrit August 03, 2020 2:35pm 36.1 % 37-47 [facility], [address] [place] [address] 93667 Hematocrit July 01, 2020 9:40pm 36.6 % 37-47 [facility], [address] [place] [address] 22776 Hematocrit May 18, 2020 6:17am 34.1 % 37-47 [facility], [address] [place] [address] 39435 Hematocrit March 25, 2020 8:11am 34.7 % 37-47 [facility], [address] [place] [address] 98758 Hematocrit March 11, 2020 12:14pm 37.2 % 37-47 [facility], [address] [place] [address] 96266 Hematocrit March 02, 2020 11:00am 36.9 % 37-47 [facility], [address] [place] [address] 14299 Hematocrit February 26, 2020 10:02am 39.4 % 37-47 [facility], [address] [place] [address] 33530 Hematocrit February 20, 2020 8:35am 41.0 % 37-47 [facility], [address] [place] [address] 79778 Mean Corpuscular Volume August 30, 2020 8:15pm 80.8 fl 80-96 [facility], [address] [place] [address] 53700 Mean Corpuscular Volume July h2019 7:35pm 80.4 fl 80-96 [facility], [address] [place] [address] 24159 Mean Corpuscular Volume July 9:31am 79.4 fl 80-96 [facility], [address] [place] [address] 50695 Mean Corpuscular Volume July 2:35pm 80.8 fl 80-96 [facility], [address] [place] [address] 02098 Mean Corpuscular Volume June 9:40pm 81.2 [place] [address] [facility], [address] [place] [address] 09850 Mean Corpuscular Volume May 182019 6:17am 83.[address] [place], [place] [address], [address] [place] [address] 58968 Mean Corpuscular Volume March 25, 2020 8:11am 81.[address] [place] [address] [facility]ORATORY, [address] [place] [address] 81063 Mean Corpuscular Volume March 11, 020 12:14pm 81.[address] [place] [address] [facility]ORATORY, [address] [place] [address] 77307 Mean Corpuscular Volume March 02, 020 11:00am 81.[address] [place] [address] [facility]ORATORY, [address] [place] [address] 92652 Mean Corpuscular Volume February 25 10:02am 81.4 [place] [address] [facility], [address] [place] [address] 33318 Mean Corpuscular Volume February 19, 020 8:35am 81.7 fl [facility], [address] [place] [address] 63507 Mean Corpuscular Hemoglobin August 30, 2020 8:15pm 24.6 pg 27-31 [facility], [address] [place] [address] 03054 Mean Corpuscular Hemoglobin August 09, 2020 7:35pm 25.4 pg 27-31 [facility], [address] [place] [address] 72444 Mean Corpuscular Hemoglobin August 14, 2020 9:31am 24.9 pg 27-31 [facility], [address] [place] [address] 33770 Mean Corpuscular Hemoglobin August 03, 2020 2:35pm 25.7 pg 27-31 [facility], [address] [place] [address] 58958 Mean Corpuscular Hemoglobin July 01, 2020 9:40pm 26.2 pg 27-31 [facility], [address] [place] [address] 38679 Mean Corpuscular Hemoglobin Apremb2019 6:17am 26.6 pg 27-31 [facility], [address] [place] [address] 19187 Mean Corpuscular Hemoglobin March 252019 8:11am 27.1 pg 27-31 [facility], [address] [place] [address] 75541 Mean Corpuscular Hemoglobin February 12:14pm 27.1 pg 2731 [facility], [address] [place] [address] 01427 Mean Corpuscular Hemoglobin February 11:00am 26.8 pg 2731 [facility], [address] [place] [address] 41151 Mean Corpuscular Hemoglobin February 10:02am 26.9 pg 2731 [facility], [address] [place] [address] 94400 Mean Corpuscular Hemoglobin January 8:35am 26.7 pg 27[facility], [address] [place] [address] 79288 Mean Corpuscular Hemoglobin Concent August 30, 2020 8:15pm 30.5 g/dl 33[facility], [address] [place] [address] 80402 Mean Corpuscular Hemoglobin Concent August 09, 2020 7:35pm 31.6 g/dl 3337 [facility], [address] [place] [address] 86444 Mean Corpuscular Hemoglobin Concent August 14, 2020 9:31am 31.4 g/dl 33[facility], [address] [place] [address] 99905 Mean Corpuscular Hemoglobin Concent August 03, 2020 2:35pm 31.9 g/dl [address] [facility], [address] [place] [address] 81172 Mean Corpuscular Hemoglobin Concent July 01, 2020 9:40pm 32.2 g/dl 3337 [facility], [address] [place] [address] 21028 Mean Corpuscular Hemoglobin Concent May 18, 2020 6:17am 32.0 g/dl 3337 [facility], [address] [place] [address] 25902 Mean Corpuscular Hemoglobin Concent March 25, 2020 8:11am 33.1 g/dl 33[facility], [address] [place] [address] 74956 Mean Corpuscular Hemoglobin Concent March 11, 2020 12:14pm 33.3 g/dl 33[facility], [address] [place] [address] 61226 Mean Corpuscular Hemoglobin Concent March 02, 2020 11:00am 32.8 g/dl [address] [facility], [address] [place] [address] 81831 Mean Corpuscular Hemoglobin Concent February 26, 2020 10:02am 33.0 g/dl [address] [facility], [address] [place] [address] 18821 Mean Corpuscular Hemoglobin Concent February 20, 2020 8:35am 32.7 g/dl [address] [facility], [address] [place] [address] 95163 Red Cell Distribution Width August 30, 2020 8:15pm 15 % 11-15 [facility], [address] [place] [address] 65199 Red Cell Distribution Width August 09, 2020 7:35pm 14 % 11-15 [facility], [address] [place] [address] 11214 Red Cell Distribution Width August 14, 2020 9:31am 15 % 11-15 [facility], [address] [place] [address] 41185 Red Cell Distribution Width August 03, 2020 2:35pm 14 % 11-15 [facility], [address] [place] [address] 89650 Red Cell Distribution Width July 01, 2020 9:40pm 14 % 11-15 [facility], [address] [place] [address] 42678 Red Cell Distribution Width 2019 6:17am 14 % 11-15 [facility], [address] [place] [address] 14622 Red Cell Distribution Width March 252019 8:11am 15 % 11-15 [facility], [address] [place] [address] 51938 Red Cell Distribution Width February 12:14pm 15 % 11-15 [facility], [address] [place] [address] 55435 Red Cell Distribution Width February 11:00am 14 % 11-15 [facility], [address] [place] [address] 02061 Red Cell Distribution Width February 10:02am 14 % 11-15 [facility], [address] [place] [address] 44957 Red Cell Distribution Width January 8:35am 15 % 11-15 [facility], [address] [place] [address] 95095 Platelet Count August 30, 2020 8:15pm 422 10e3/ul 130-472 [facility], [address] [place] [address] Platelet Count August 09, 2020 7:35pm 423 10e3/ul 130-472 [facility], [address] [place] [address] Platelet Count August 14, 2020 9:31am 429 10e3/ul 130-472 [facility], [address] [place] [address] Platelet Count August 03, 2020 2:35pm 372 10e3/ul 130-472 [facility], [address] [place] [address] 08595 Platelet Count July 01, 2020 9:40pm 392 10e3/ul 130-472 [facility], [address] [place] [address] 80145 Platelet Count May 18, 2020 6:17am 332 10e3/ul 130-472 [facility], [address] [place] [address] 46709 Platelet Count March 25, 2020 8:11am 395 10e3/ul 130-472 [facility], [address] [place] [address] 37603 Platelet Count March 11, 2020 12:14pm 460 10e3/ul 130-472 [facility], [address] [place] [address] 56672 Platelet Count March 02, 2020 11:00am 410 10e3/ul 130-472 [facility], [address] [place] [address] 32390 Platelet Count February 26, 2020 10:02am 436 10e3/ul 130-472 [facility], [address] [place] [address] 51436 Platelet Count February 20, 2020 8:35am 479 10e3/ul 130-472 [facility], [address] [place] [address] 02900 Mean Platelet Volume August 30 8:15pm 8.7 fl 9.1-13.1 [facility], [address] [place] [address] Mean Platelet Volume August 09, 2020 7:35pm 8.9 fl 9.1-13.1 [facility], [address] [place] [address] Mean Platelet Volume August 14, 2020 9:31am 8.9 fl 9.1-13.1 [facility], [address] [place] [address] Mean Platelet Volume August 03, 2020 2:35pm 9.0 fl 9.1-13.1 [facility], [address] [place] [address] 11154 Mean Platelet Volume July 01 9:40pm 8.6 fl 9.1-13.1 [facility], [address] [place] [address] 55566 Mean Platelet Volume May 18, 2020 6:17am 8.6 fl 9.1-13.1 [facility], [address] [place] [address] 36797 Mean Platelet Volume March 25 8:11am 8.3 fl 9.1-13.1 [facility], [address] [place] [address] 00775 Mean Platelet Volume March 11, 2020 12:14pm 8.4 fl 9.1-13.1 [facility], [address] [place] [address] 00101 Mean Platelet Volume March 02, 2020 11:00am 8.6 fl 9.1-13.1 [facility], [address] [place] [address] 91202 Mean Platelet Volume February 26, 2020 10:02a m 8.7 fl 9.1-13.1 [facility], [address] [place] [address] 49307 Mean Platelet Volume February 20, 2020 8:35a m 8.7 fl 9.1-13.1 [facility], [address] [place] [address] 35125 Neutrophils (%) (Auto) August 30, 2020 8:15pm 69.3 % [address] [place] [address] LABORATORY, [address] [place] [address] 65565 Neutrophils (%) (Auto) July 7:35pm 71.3 % [address] [place] [address] [facility]ATORY, [address] [place] [address] 76736 Neutrophils (%) (Auto) July 9:31am 63.7 % [address] [place] [address] LABORATORY, [address] [place] [address] 57799 Neutrophils (%) (Auto) July 2:35pm 68.8 % [address] [place] [address] LABORATORY, [address] [place] [address] 39777 Neutrophils (%) (Auto) July 01, 2020 9:40pm 66.3 % [address] [place] [address] LABORATORY, [address] [place] [address] 83546 Neutrophils (%) (Auto) April 6:17am 66.1 % [address] [place] [address] LABORATORY, [address] [place] [address] 69813 Neutrophils (%) (Auto) March 25 020 8:11am 58.4 % [address] [place] [address] LABORATORY, [address] [place] [address] 69568 Neutrophils (%) (Auto) March 11 12:14pm 72.2 % [address] [place] [address] [facility]ORATORY, [address] [place] [address] 55268 Neutrophils (%) (Auto) March 02 11:00am 65.4 % [address] [place] [address] LABORATORY, [address] [place] [address] 65591 Neutrophils (%) (Auto) February 25 0 10:02am 62.6 % [address] [place] [address] [facility]ORATORY, [address] [place] [address] 20217 Neutrophils (%) (Auto) February 19 8:35am 62.4 % [address] [place] [address] LABORATORY, [address] [place] [address] 36320 Absolute Neutrophil August 30 8:15pm 7.8 # 1.7-7.6 [facility], [address] [place] [address] 14340 Absolute Neutrophil August 09, 020 7:35pm 7.0 # 1.7-7.6 [facility], [address] [place] [address] 46497 Absolute Neutrophil August 14, 020 9:31am 6.2 # 1.7-7.6 [facility], [address] [place] [address] 96219 Absolute Neutrophil August 03, 020 2:35pm 5.9 # 1.7-7.6 [facility], [address] [place] [address] Absolute Neutrophil July 01 9:40pm 7.5 # 1.7-7.6 [facility], [address] [place] [address] 35343 Absolute Neutrophil May 18, 2020 6:17am 6.1 # 1.7-7.6 [facility], [address] [place] [address] 83741 Absolute Neutrophil March 25, 2020 8:11a m 6.3 # 1.7-7.6 [facility], [address] [place] [address] 57037 Absolute Neutrophil March 11, 2020 12:14p m 8.1 # 1.7-7.6 [facility], [address] [place] [address] 54715 Absolute Neutrophil March 02, 2020 11:00a m 6.7 # 1.7-7.6 [facility], [address] [place] [address] 43150 Absolute Neutrophil February 26, 2020 10:02am 6.1 # 1.7-7.6 [facility], [address] [place] [address] 94228 Absolute Neutrophil February 20, 2020 8:35am 5.5 # 1.7-7.6 [facility], [address] [place] [address] 86510 Lymphocytes (%) (Auto) August 30, 2020 8:15pm 20.7 % [address] [facility], [address] [place] [address] 94635 Lymphocytes (%) (Auto) July 7:35pm 19.4 % [address] [facility], [address] [place] [address] 91967 Lymphocytes (%) (Auto) July 9:31am 25.9 % [address] [facility], [address] [place] [address] 34166 Lymphocytes (%) (Auto) July 2:35pm 20.2 % [address] [facility], [address] [place] [address] 58918 Lymphocytes (%) (Auto) July 01, 2020 9:40pm 21.4 % [address] [facility], [address] [place] [address] 09175 Lymphocytes (%) (Auto) April 6:17am 22.8 % [address] [facility], [address] [place] [address] 32580 Lymphocytes (%) (Auto) March 25 8:11am 30.4 % [address] [facility], [address] [place] [address] 19096 Lymphocytes (%) (Auto) March 11 12:14pm 19.0 % [address] [facility], [address] [place] [address] 96508 Lymphocytes (%) (Auto) March 02 11:00am 23.6 % [address] [facility], [address] [place] [address] 80128 Lymphocytes (%) (Auto) February 25 0 10:02am 25.4 % [address] [facility], [address] [place] [address] 80740 Lymphocytes (%) (Auto) February 19 8:35am 26.5 % 14-46 [facility], [address] [place] [address] 86279 Lymphocytes # (Auto) August 30 8:15pm 2.3 # 0.6-4.6 [facility], [address] [place] [address] 45185 Lymphocytes # (Auto) August 09, 2020 7:35pm 1.9 # 0.6-4.6 [facility], [address] [place] [address] 34737 Lymphocytes # (Auto) August 14, 2020 9:31am 2.5 # 0.6-4.6 [facility], [address] [place] [address] 56298 Lymphocytes # (Auto) August 03, 2020 2:35pm 1.7 # 0.6-4.6 [facility], [address] [place] [address] 25550 Lymphocytes # (Auto) July 01 9:40pm 2.4 # 0.6-4.6 [facility], [address] [place] [address] 29253 Lymphocytes # (Auto) May 18, 2020 6:17am 2.1 # 0.6-4.6 [facility], [address] [place] [address] [id number] Lymphocytes # (Auto) March 25 0 8:11am 3.3 # 0.6-4.6 [facility], [address] [place] [address] [id number] Lymphocytes # (Auto) March 11, 2020 12:14pm 2.1 # 0.6-4.6 [facility], [address] [place] [address] [id number] Lymphocytes # (Auto) March 02, 2020 11:00am 2.4 # 0.6-4.6 [facility], [address] [place] [address] [phone] Lymphocytes # (Auto) February 26, 2020 10:02a m 2.5 # 0.6-4.6 [facility], [address] [place] [address] [id number] Lymphocytes # (Auto) February 20, 2020 8:35a m 2.3 # 0.6-4.6 [facility], [address] [place] [address] [phone] Monocytes (%) (Auto) August 30 8:15pm 6.8 % 412 [facility], [address] [place] [address] [phone] Monocytes (%) (Auto) August 09, 2020 7:35pm 7.0 % [address] [facility], [address] [place] [address] [phone] Monocytes (%) (Auto) August 14, 2020 9:31am 6.9 % [address] [facility], [address] [place] [address] [phone] Monocytes (%) (Auto) August 03, 2020 2:35pm 8.3 % 412 [facility], [address] [place] [address] [phone] Monocytes (%) (Auto) July 01 9:40pm 8.9 % [address] [facility], [address] [place] [address] [id number] Monocytes (%) (Auto) May 18, 2020 6:17am 8.7 % [address] [facility], [address] [place] [address] [id number] Monocytes (%) (Auto) March 25 0 8:11am 7.7 % [address] [facility], [address] [place] [address] [id number] Monocytes (%) (Auto) March 11, 2020 12:14pm 5.5 % [address] [facility], [address] [place] [address] [id number] Monocytes (%) (Auto) March 02, 2020 11:00am 7.8 % [address] [facility], [address] [place] [address] [id number] Monocytes (%) (Auto) February 26, 2020 10:02a m 8.2 % [address] [facility], [address] [place] [address] 96533 Monocytes (%) (Auto) February 20, 2020 8:35a m 8.0 % 412 [facility], [address] [place] [address] 89987 Monocytes # August 30, 2020 8:15pm 0.8 # 0.2-1.2 [facility], [address] [place] [address] 64061 Monocytes # August 09, 2020 7:35pm 0.7 # 0.2-1.2 [facility], [address] [place] [address] 58982 Monocytes # August 14, 2020 9:31am 0.7 # 0.2-1.2 [facility], [address] [place] [address] 76773 Monocytes # August 03, 2020 2:35pm 0.7 # 0.2-1.2 [facility], [address] [place] [address] 99283 Monocytes # July 01, 2020 9:40pm 1.0 # 0.2-1.2 [facility], [address] [place] [address] 18906 Monocytes # May 18, 2020 6:17am 0.8 # 0.2-1.2 [facility], [address] [place] [address] 12122 Monocytes # March 25, 2020 8:11am 0.8 # 0.2-1.2 [facility], [address] [place] [address] 62763 Monocytes # March 11, 2020 12:14pm 0.6 # 0.2-1.2 [facility], [address] [place] [address] 19166 Monocytes # March 02, 2020 11:00am 0.8 # 0.2-1.2 [facility], [address] [place] [address] 61034 Monocytes # February 26, 2020 10:02am 0.8 # 0.2-1.2 [facility], [address] [place] [address] 71382 Monocytes # February 20, 2020 8:35am 0.7 # 0.2-1.2 [facility], [address] [place] [address] 94490 Eosinophils (%) (Auto) August 30, 2020 8:15pm 2.4 % 0-7 [facility], [address] [place] [address] 43119 Eosinophils (%) (Auto) July 7:35pm 1.8 % 0-7 [facility], [address] [place] [address] 68137 Eosinophils (%) (Auto) July 9:31am 3.0 % 0-7 [facility], [address] [place] [address] 40992 Eosinophils (%) (Auto) July 2:35pm 2.2 % 0-7 [facility], [address] [place] [address] 01186 Eosinophils (%) (Auto) July 01, 2020 9:40pm 2.7 % 0-7 [facility], [address] [place] [address] 63606 Eosinophils (%) (Auto) April 6:17am 1.9 % 0-7 [facility], [address] [place] [address] 81831 Eosinophils (%) (Auto) March 25 8:11am 2.7 % 0-7 [facility], [address] [place] [address] 92788 Eosinophils (%) (Auto) March 11 12:14pm 2.5 % 0-7 [facility], [address] [place] [address] 62208 Eosinophils (%) (Auto) March 02 11:00am 2.4 % 0-7 [facility], [address] [place] [address] 27502 Eosinophils (%) (Auto) February 25 10:02am 3.1 % 0-7 [facility], [address] [place] [address] 69583 Eosinophils (%) (Auto) February 19 8:35am 2.6 % 0-7 [facility], [address] [place] [address] 34178 Absolute Eosinophils (CBC) August 302020 8:15pm 0.3 # 0.0-0.5 [facility], [address] [place] [address] 68556 Absolute Eosinophils (CBC) August 09, 2020 7:35pm 0.2 # 0.0-0.5 [facility], [address] [place] [address] 76458 Absolute Eosinophils (CBC) August 14, 2020 9:31am 0.3 # 0.0-0.5 [facility], [address] [place] [address] 73123 Absolute Eosinophils (CBC) August 03, 2020 2:35pm 0.2 # 0.0-0.5 [facility], [address] [place] [address] 28370 Absolute Eosinophils (CBC) July 01, 2020 9:40pm 0.3 # 0.0-0.5 [facility], [address] [place] [address] 15059 Absolute Eosinophils (CBC) May 18, 2020 6:17am 0.2 # 0.0-0.5 [facility], [address] [place] [address] 69398 Absolute Eosinophils (CBC) March 8:11am 0.3 # 0.0-0.5 [facility], [address] [place] [address] Absolute Eosinophils (CBC) February 12:14pm 0.3 # 0.0-0.5 [facility], [address] [place] [address] Absolute Eosinophils (CBC) February 11:00am 0.3 # 0.0-0.5 [facility], [address] [place] [address] Absolute Eosinophils (CBC) February 26, 2020 10:02am 0.3 # 0.0-0.5 [facility], [address] [place] [address] Absolute Eosinophils (CBC) January 8:35am 0.2 # 0.0-0.5 [facility], [address] [place] [address] Basophils (%) (Auto) August 30 8:15pm 0.4 % 0.4-1.3 [facility], [address] [place] [address] Basophils (%) (Auto) August 09, 2020 7:35pm 0.3 % 0.4-1.3 [facility], [address] [place] [address] Basophils (%) (Auto) August 14, 2020 9:31am 0.3 % 0.4-1.3 [facility], [address] [place] [address] Basophils (%) (Auto) August 03, 2020 2:35pm 0.3 % 0.4-1.3 [facility], [address] [place] [address] 05038 Basophils (%) (Auto) July 01 020 9:40pm 0.4 % 0.4-1.3 [facility], [address] [place] [address] Basophils (%) (Auto) May 18, 2020 6:17am 0.3 % 0.4-1.3 [facility], [address] [place] [address] 29499 Basophils (%) (Auto) March 25 0 8:11am 0.5 % 0.4-1.3 [facility], [address] [place] [address] 16366 Basophils (%) (Auto) March 11, 2020 12:14pm 0.4 % 0.4-1.3 [facility], [address] [place] [address] 94932 Basophils (%) (Auto) March 02, 2020 11:00am 0.5 % 0.4-1.3 [facility], [address] [place] [address] 77895 Basophils (%) (Auto) February 26, 2020 10:02a m 0.4 % 0.4-1.3 [facility], [address] [place] [address] 54579 Basophils (%) (Auto) February 20, 2020 8:35a m 0.3 % 0.4-1.3 [facility], [address] [place] [address] 33223 Absolute Basophils (CBC) August 8:15pm 0.1 # 0.0-0.2 [facility], [address] [place] [address] Absolute Basophils (CBC) August 092019 7:35pm 0.0 # 0.0-0.2 [facility], [address] [place] [address] 79629 Absolute Basophils (CBC) August 142019 9:31am 0.0 # 0.0-0.2 [facility], [address] [place] [address] Absolute Basophils (CBC) August 032019 2:35pm 0.0 # 0.0-0.2 [facility], [address] [place] [address] Absolute Basophils (CBC) June 9:40pm 0.0 # 0.0-0.2 [facility], [address] [place] [address] 52323 Absolute Basophils (CBC) April 242019 6:17am 0.0 # 0.0-0.2 [facility], [address] [place] [address] Absolute Basophils (CBC) March 25, 2020 8:11am 0.1 # 0.0-0.2 [facility], [address] [place] [address] Absolute Basophils (CBC) March 11, 2020 12:14pm 0.0 # 0.0-0.2 [facility], [address] [place] [address] Absolute Basophils (CBC) March 02, 2020 11:00am 0.1 # 0.0-0.2 [facility], [address] [place] [address] 89988 Absolute Basophils (CBC) Rakel 6th, 2 020 10:02am 0.0 # 0.0-0.2 [facility], [address] [place] [address] 33563 Absolute Basophils (CBC) February 20, 2020 8:35am 0.0 # 0.0-0.2 [facility], [address] [place] [address] 77891 Immature Granulocyte % (Auto) Auguar 2020 8:15pm 0.4 % 0-2 [facility], [address] [place] [address] 25931 Immature Granulocyte % (Auto) [facility] 2019 7:35pm 0.2 % 0-2 [facility], [address] [place] [address] 50570 Immature Granulocyte % (Auto) [facility] 2019 9:31am 0.2 % 0-2 [facility], [address] [place] [address] 44702 Immature Granulocyte % (Auto) [facility] 2019 2:35pm 0.2 % 0-2 [facility], [address] [place] [address] 67617 Immature Granulocyte % (Auto) [facility] er 2019 9:40pm 0.3 % 0-2 [facility], [address] [place] [address] 88514 Immature Granulocyte % (Auto) Sept2019 6:17am 0.2 % 0-2 [facility], [address] [place] [address] 92625 Immature Granulocyte % (Auto) March 25, 2020 8:11am 0.3 % 0-2 [facility], [address] [place] [address] 41880 Immature Granulocyte % (Auto) February 212019 12:14pm 0.4 % 0-2 [facility], [address] [place] [address] 25867 Immature Granulocyte % (Auto) February 202019 11:00am 0.3 % 0-2 [facility], [address] [place] [address] 84771 Immature Granulocyte % (Auto) February 252019 10:02am 0.3 % 0-2 [facility], [address] [place] [address] 88448 Immature Granulocyte % (Auto) January 232019 8:35am 0.2 % 0-2 [facility], [address] [place] [address] 54758 Absolute Immature Granulocyte (auto August 30, 2020 8:15pm 0.0 # 0-0.1 [facility], [address] [place] [address] 65800 Absolute Immature Granulocyte (auto August 09, 2020 7:35pm 0.0 # 0-0.1 [facility], [address] [place] [address] Absolute Immature Granulocyte (auto August 14, 2020 9:31am 0.0 # 0-0.1 [facility], [address] [place] [address] Absolute Immature Granulocyte (auto August 03, 2020 2:35pm 0.0 # 0-0.1 [facility], [address] [place] [address] Absolute Immature Granulocyte (auto July 01, 2020 9:40pm 0.0 # 0-0.1 [facility], [address] [place] [address] Absolute Immature Granulocyte (auto May 18, 2020 6:17am 0.0 # 0-0.1 [facility], [address] [place] [address] Absolute Immature Granulocyte (auto March 25, 2020 8:11am 0.0 # 0-0.1 [facility], [address] [place] [address] Absolute Immature Granulocyte (auto March 11, 2020 12:14pm 0.0 # 0-0.1 [facility], [address] [place] [address] Absolute Immature Granulocyte (auto March 02, 2020 11:00am 0.0 # 0-0.1 [facility], [address] [place] [address] Absolute Immature Granulocyte (auto February 26, 2020 10:02am 0.0 # 0-0.1 [facility], [address] [place], [place] [id number] Absolute Immature Granulocyte (auto February 20, 2020 8:35am 0.0 # 0-0.1 [facility], [address] [place], [place] [id number] Add Manual Differential August 30, 2020 8:15pm No [facility], [address] [place] [address] 23966 Add Manual Differential July h2019 7:35pm No [facility], [address] [place] [address] 90566 Add Manual Differential July d2019 9:31am No [facility], [address] [place] [address] 18972 Add Manual Differential July 2019 2:35pm No [facility], [address] [place] [address] 02367 Add Manual Differential June 9:40pm No [facility], [address] [place] [address] Add Manual Differential May 182019 6:17am No [facility], [address] [place] [address] 85508 Add Manual Differential March 25, 2020 8:11am No [facility], [address] [place] [address] 03425 Add Manual Differential March 11 12:14pm No [facility], [address] [place] [address] 09403 Add Manual Differential March 02 11:00am No [facility], [address] [place] [address] Add Manual Differential February 25 10:02am No [facility], [address] [place] [address] 17768 Add Manual Differential February 19 8:35am No [facility], [address] [place] [address] 59726 Differential Total Cells Counted Sep 2019 7:20pm 100 [facility], [address] [place] [address] 06252 Neutrophils (Manual) May 17, 2020 7:20pm 77 % 41-77 [facility], [address] [place] [address] 94606 Band Neutrophils May 17 0 7:20pm 3 % 0-5 [facility], [address] [place] [address] 85947 Lymphocytes (Manual) May 17, 2020 7:20pm 17 % 14-46 [facility], [address] [place] [address] 81114 Monocytes (Manual) May 17 7:20pm 3 % 4-12 [facility], [address] [place] [address] 47743 Platelet Estimate May 17 7:20pm Appears normal NORMAL [facility], [address] [place] [address] 85950 RBC Morphology May 17 7:20pm Appears normal NORMAL [facility], [address] [place] [address] 42275 Urine Color May 18, 2020 12:15am Yellow [facility], [address] [place] [address] 05922 Urine Color February 20, 2020 8:40am Yellow [facility], [address] [place] [address] 55000 Urine Color August 30, 2020 8:15pm [place] [facility], [address] [place] [address] 28029 Urine Color August 09, 2020 8:06pm Yellow [facility], [address] [place] [address] 68842 Urine Color August 03, 2020 2:50pm Yellow [facility], [address] [place] [address] 10093 Urine Color July 01, 2020 9:30pm Yellow [facility], [address] [place] [address] 75130 Urine Color March 25, 2020 8:05am Yellow [facility], [address] [place] [address] 99220 Urine Color March 11, 2020 11:00am Yellow [facility], [address] [place] [address] 61315 Urine Color March 05, 2020 2:29pm Yellow [facility], [address] [place] [address] 85578 Urine Color March 02, 2020 10:48am Yellow [facility], [address] [place] [address] 76831 Urine Appearance August 30, 2020 8:15pm Turbid CLEAR [facility], [address] [place] [address] 63891 Urine Appearance August 09, 2020 8:06p m Clear [facility], [address] [place] [address] 28354 Urine Appearance August 03, 2020 2:50p m Clear CLEAR [facility], [address] [place] [address] 27095 Urine Appearance July 01, 2020 9:30pm Cloudy [facility], [address] [place] [address] 81945 Urine Appearance May 18 12:15am Clear CLEAR [facility], [address] [place] [address] 79893 Urine Appearance March 25, 2020 8:05am Cloudy CLEAR [facility], [address] [place] [address] 68086 Urine Appearance March 11, 2020 11:00am Cloudy [facility], [address] [place] [address] 42252 Urine Appearance March 05, 2020 2:29pm Cloudy [facility], [address] [place] [address] 24010 Urine Appearance March 02, 2020 10:48am Cloudy [facility]AR [facility], [address] [place] [address] 36763 Urine Appearance February 20, 2020 8:40am Turbid CLEAR [facility], [address] [place] [address] 46786 Urine pH August 30, 2020 8:15pm 6.5 [facility], [address] [place] [address] 90251 Urine pH August 09, 2020 8:06pm 6.5 [facility], [address] [place] [address] 01927 Urine pH August 03, 2020 2:50pm 7.5 [facility], [address] [place] [address] 41374 Urine pH July 01, 2020 9:30pm 6.0 [facility], [address] [place] [address] 11720 Urine pH May 18, 2020 12:15am 6.0 [facility], [address] [place] [address] 57708 Urine pH March 25, 2020 8:05am 5.5 [facility], [address] [place] [address] 29055 Urine pH March 11, 2020 11:00am 6.5 [facility], [address] [place] [address] 92270 Urine pH March 05, 2020 2:29pm 6.0 [facility], [address] [place] [address] 46739 Urine pH March 02, 2020 10:48am 5.5 [facility], [address] [place] [address] 63917 Urine pH February 20, 2020 8:40am 5.5 [facility], [address] [place] [address] 34223 Urine Specific [place] August 30, 2020 8:15pm 1.033 [facility], [address] [place] [address] 69976 Urine Specific [place] July 8:06pm 1.022 [facility], [address] [place] [address] 28572 Urine Specific [place] July 2:50pm 1.020 [facility], [address] [place] [address] 07351 Urine Specific [place] July 01, 2020 9:30pm 1.026 [facility], [address] [place] [address] 20780 Urine Specific [place] April 12:15am >1.045 [facility], [address] [place] [address] 49088 Urine Specific [place] March 25 8:05am 1.025 [facility], [address] [place] [address] 30057 Urine Specific [place] March 11 11:00am 1.025 [facility], [address] [place] [address] 02086 Urine Specific [place] March 05 2:29pm 1.021 [facility], [address] [place] [address] Urine Specific [place] March 02 10:48am 1.025 [facility], [address] [place] [address] Urine Specific [place] February 19 8:40am 1.023 [facility], [address] [place] [address] Urine Leukocyte Esterase April 242019 12:15am Negative NEGATIVE [facility], [address] [place] [address] Urine Leukocyte Esterase February 20, 2020 8:40am Moderate NEGATIVE [facility], [address] [place] [address] Urine Leukocyte Esterase August 8:15pm Small NEGATIVE A Culture has been added to this specimen per established criteria [facility], [address] [place] [address] Urine Leukocyte Esterase August 092019 8:06pm Small NEGATIVE A Culture has been added to this specimen per established criteria [facility], [address] [place] [address] Urine Leukocyte Esterase August [id number] 2:50pm Small NEGATIVE A Culture has been added to this specimen per established criteria [facility], [address] [place] [address] Urine Leukocyte Esterase June 9:30pm Small NEGATIVE A Culture has been added to this specimen per established criteria [facility], [address] [place] [address] Urine Leukocyte Esterase March 25, 2020 8:05am Trace NEGATIVE A Culture has been added to this specimen per established criteria [facility], [address] [place] [address] Urine Leukocyte Esterase March 11, 2020 11:00am Trace NEGATIVE A Culture has been added to this specimen per established criteria [facility], [address] [place] [address] Urine Leukocyte Esterase March 05, 2020 2:29pm Trace NEGATIVE A Culture has been added to this specimen per established criteria [facility], [address] [place] [address] Urine Leukocyte Esterase March 02, 2020 10:48am Trace NEGATIVE A Culture has been added to this specimen per established criteria [facility], [address] [place] [address] Urine Nitrite May 18, 2020 12:15am Negative NEGATIVE [facility], [address] [place] [address] Urine Nitrite February 20, 2020 8:40am Negative NEGATIVE [facility], [address] [place] [address] 84094 Urine Nitrate August 30, 2020 8:15pm Negative NEGATIVE [facility], [address] [place] [address] 94378 Urine Nitrate August 09, 2020 8:06pm Negative NEGATIVE [facility], [address] [place] [address] 03648 Urine Nitrate August 03, 2020 2:50pm Negative NEGATIVE [facility], [address] [place] [address] 29969 Urine Nitrate July 01, 2020 9:30pm Negative NEGATIVE [facility], [address] [place] [address] 55672 Urine Nitrate March 25, 2020 8:05am Negative NEGATIVE [facility], [address] [place] [address] 92231 Urine Nitrate March 11, 2020 11:00am Negative NEGATIVE [facility], [address] [place] [address] 17956 Urine Nitrate March 05, 2020 2:29pm Negative NEGATIVE [facility], [address] [place] [address] 49730 Urine Nitrate March 02, 2020 10:48am Negative NEGATIVE [facility], [address] [place] [address] 55529 Urine Protein August 30, 2020 8:15pm 30 mg/dl NEGATIVE [facility], [address] [place] [address] 97698 Urine Protein August 09, 2020 8:06pm Negative NEGATIVE [facility], [address] [place] [address] 94481 Urine Protein August 03, 2020 2:50pm Negative NEGATIVE [facility], [address] [place] [address] 71497 Urine Protein July 01, 2020 9:30pm Trace NEGATIVE [facility], [address] [place] [address] Urine Protein May 18, 2020 12:15am Negative NEGATIVE [facility], [address] [place] [address] 60494 Urine Protein March 25, 2020 8:05am Negative NEGATIVE [facility], [address] [place] [address] 36387 Urine Protein March 11, 2020 11:00am Trace NEGATIVE [facility], [address] [place] [address] 49922 Urine Protein March 05, 2020 2:29pm Trace NEGATIVE [facility], [address] [place] [address] 50462 Urine Protein March 02, 2020 10:48am Negative NEGATIVE [facility], [address] [place] [address] Urine Protein February 20, 2020 8:40am 30 mg/dl NEGATIVE [facility], [address] [place] [address] 47373 Urine Glucose August 30, 2020 8:15pm Negative NEGATIVE [facility], [address] [place] [address] [id number] Urine Glucose August 09, 2020 8:06pm Negative NEGATIVE [facility], [address] [place] [address] [id number] Urine Glucose August 03, 2020 2:50pm Negative NEGATIVE [facility], [address] [place] [address] [id number] Urine Glucose July 01, 2020 9:30pm Negative NEGATIVE [facility], [address] [place] [address] [id number] Urine Glucose May 18, 2020 12:15am Negative NEGATIVE [facility], [address] [place] [address] [id number] Urine Glucose March 25, 2020 8:05am Negative NEGATIVE [facility], [address] [place] [address] [id number] Urine Glucose March 11, 2020 11:00am Negative NEGATIVE [facility], [address] [place] [address] [id number] Urine Glucose March 05, 2020 2:29pm Negative NEGATIVE [facility], [address] [place] [address] [id number] Urine Glucose March 02, 2020 10:48am Negative NEGATIVE [facility], [address] [place] [address] [id number] Urine Glucose February 20, 2020 8:40am Negative NEGATIVE [facility], [address] [place] [address] [id number] Urine Ketones August 30, 2020 8:15pm Trace NEGATIVE [facility], [address] [place] [address] [id number] Urine Ketones August 09, 2020 8:06pm Negative NEGATIVE [facility], [address] [place] [address] [id number] Urine Ketones August 03, 2020 2:50pm Negative NEGATIVE [facility], [address] [place] [address] [id number] Urine Ketones July 01, 2020 9:30pm Trace NEGATIVE [facility], [address] [place] [address] [phone] Urine Ketones May 18, 2020 12:15am Negative NEGATIVE [facility], [address] [place] [address] [id number] Urine Ketones March 25, 2020 8:05am Trace NEGATIVE [facility], [address] [place] [address] [id number] Urine Ketones March 11, 2020 11:00am Trace NEGATIVE [facility], [address] [place] [address] [id number] Urine Ketones March 05, 2020 2:29pm Negative NEGATIVE [facility], [address] [place] [address] [id number] Urine Ketones March 02, 2020 10:48am Negative NEGATIVE [facility], [address] [place] [address] Urine Ketones February 20, 2020 8:40am Trace NEGATIVE [facility], [address] [place], [place] [id number] Urine Urobilinogen August 30, 2020 8:15p m 1 eu/dl [facility], [address] [place] [address] 87964 Urine Urobilinogen August 09 8:06pm 1 eu/dl [facility], [address] [place] [address] 77689 Urine Urobilinogen August 03 2:50pm 1 eu/dl [facility], [address] [place] [address] 01520 Urine Urobilinogen July 01 9:30pm 1 eu/dl [facility], [address] [place] [address] 22171 Urine Urobilinogen May 18 12:15am 0.2 eu/dl [facility], [address] [place], [place] [id number] Urine Urobilinogen March 25, 2020 8:05am 1 eu/dl [facility], [address] [place], [place] [id number] Urine Urobilinogen March 11, 2020 11:00am 1 eu/dl [facility], [address] [place] [address] Urine Urobilinogen March 05, 2020 2:29pm 0.2 eu/dl [facility], [address] [place] [address] 21057 Urine Urobilinogen March 02, 2020 10:48am 1 eu/dl [facility], [address] [place], [place] [id number] Urine Urobilinogen February 20, 2020 8:40am 1 eu/dl [facility], [address] [place] [address] 11133 Urine Bilirubin August 30, 2020 8:15pm Negative NEGATIVE [facility], [address] [place] [address] [id number] Urine Bilirubin August 09, 2020 8:06pm Negative NEGATIVE [facility], [address] [place] [address] 98394 Urine Bilirubin August 03, 2020 2:50pm Negative NEGATIVE [facility], [address] [place] [address] 53333 Urine Bilirubin July 01, 2020 9:30pm Negative NEGATIVE [facility], [address] [place] [address] 16967 Urine Bilirubin May 18, 2020 12:15am Negative NEGATIVE [facility], [address] [place] [address] 96965 Urine Bilirubin March 25, 2020 8:05am Negative NEGATIVE [facility], [address] [place] [address] 99777 Urine Bilirubin March 11, 2020 11:00am Negative NEGATIVE [facility], [address] [place] [address] 34150 Urine Bilirubin March 05, 2020 2:29pm Negative NEGATIVE [facility], [address] [place] [address] 08443 Urine Bilirubin March 02, 2020 10:48am Negative NEGATIVE [facility], [address] [place] [address] 46741 Urine Bilirubin February 20, 2020 8:40am Negative NEGATIVE [facility], [address] [place] [address] 04501 Urine Blood May 18, 2020 12:15am Negative NEGATIVE [facility], [address] [place] [address] 21093 Urine Blood February 20, 2020 8:40am Large NEGATIVE [facility], [address] [place] [address] 12511 Urine Blood August 30, 2020 8:15pm Large NEGATIVE A Culture has been added to this specimen per established criteria [facility], [address] [place] [address] 55074 Urine Blood August 09, 2020 8:06pm Moderate NEGATIVE A Culture has been added to this specimen per established criteria [facility], [address] [place] [address] 60751 Urine Blood August 03, 2020 2:50pm Small NEGATIVE [facility], [address] [place] [address] 84154 Urine Blood July 01, 2020 9:30pm Moderate NEGATIVE A Culture has been added to this specimen per established criteria [facility], [address] [place] [address] 25540 Urine Blood March 25, 2020 8:05am Negative NEGATIVE [facility], [address] [place] [address] 98599 Urine Blood March 11, 2020 11:00am Negative NEGATIVE [facility], [address] [place] [address] 01168 Urine Blood March 05, 2020 2:29pm Large NEGATIVE A Culture has been added to this specimen per established criteria [facility], [address] [place] [address] 99240 Urine Blood March 02, 2020 10:48am Trace NEGATIVE [facility], [address] [place] [address] 43628 Microscopic Urinalysis Comment Septe 2019 12:15am No [facility], [address] [place] [address] Microscopic Urinalysis Comment February 20, 2020 8:40am Microscopic added [facility], [address] [place] [address] 97139 Add Urine Microanalysis August 30, 2020 8:15pm Microscopic added [facility], [address] [place] [address] Add Urine Microanalysis July 8:06pm Microscopic added [facility], [address] [place] [address] Add Urine Microanalysis July 2:50pm Microscopic added [facility], [address] [place] [address] Add Urine Microanalysis June 9:30pm Microscopic added [facility], [address] [place] [address] Add Urine Microanalysis March 25, 2020 8:05am Microscopic added [facility], [address] [place] [address] Add Urine Microanalysis March 11 020 11:00am Microscopic added [facility], [address] [place] [address] Add Urine Microanalysis March 05, 020 2:29pm Microscopic added [facility], [address] [place] [address] Add Urine Microanalysis March 02, 020 10:48am Microscopic added [facility], [address] [place] [address] Urine RBC August 30, 2020 8:15pm 1-2 /hpf [facility], [address] [place] [address] Urine RBC August 09, 2020 8:06pm 1-2 /hpf [facility], [address] [place] [address] Urine RBC August 03, 2020 2:50pm 6-10 /hpf [facility], [address] [place] [address] Urine RBC July 01, 2020 9:30pm Occasional /hpf [facility], [address] [place] [address] Urine RBC March 05, 2020 2:29pm 3-5 /hpf [facility], [address] [place] [address] Urine RBC March 02, 2020 10:48am Occasional /hpf [facility], [address] [place] [address] Urine WBC February 20, 2020 8:40am 20-30 /hpf [facility], [address] [place] [address] Urine WBC August 30, 2020 8:15pm 1-2 /hpf [facility], [address] [place] [address] Urine WBC August 09, 2020 8:06pm 1-2 /hpf [facility], [address] [place] [address] Urine WBC August 03, 2020 2:50pm 20-30 /hpf [facility], [address] [place] [address] Urine WBC July 01, 2020 9:30pm Occasional /hpf [facility], [address] [place] [address] Urine WBC March 25, 2020 8:05am 3-5 /hpf [facility], [address] [place] [address] Urine WBC March 11, 2020 11:00am 3-5 /hpf [facility], [address] [place] [address] Urine WBC March 05, 2020 2:29pm Occasional /hpf [facility], [address] [place] [address] Urine WBC March 02, 2020 10:48am 3-5 /hpf [facility], [address] [place] [address] Urine Squamous Epithelial Cells Lukas krystina 2020 8:15pm Moderate /hpf [facility], [address] [place] [address] Urine Squamous Epithelial Cells Dece mber 2019 8:06pm Many /hpf [facility], [address] [place] [address] Urine Squamous Epithelial Cells Dece mber 2019 2:50pm Moderate /hpf [facility], [address] [place] [address] Urine Squamous Epithelial Cells Nove mber 2019 9:30pm Moderate /hpf [facility], [address] [place] [address] Urine Squamous Epithelial Cells Augu 2019 8:05am Many /hpf [facility], [address] [place] [address] Urine Squamous Epithelial Cells March 11, 2020 11:00am Many /hpf [facility], [address] [place] [address] Urine Squamous Epithelial Cells March 05, 2020 2:29pm Many /hpf [facility], [address] [place] [address] 51788 Urine Squamous Epithelial Cells March 02, 2020 10:48am Many /hpf [facility], [address] [place] [address] 68581 Urine Squamous Epithelial Cells February 20, 2020 8:40am Many /hpf [facility], [address] [place] [address] 13003 Urine Bacteria February 20, 2020 8:40am Moderate amount NEGATIVE [facility], [address] [place] [address] 96998 Urine Bacteria August 30, 2020 8:15pm Small amount NEGATIVE [facility], [address] [place] [address] 37469 Urine Bacteria August 09, 2020 8:06pm Small amount NEGATIVE [facility], [address] [place] [address] 23991 Urine Bacteria August 03, 2020 2:50pm Small amount NEGATIVE [facility], [address] [place] [address] 02319 Urine Bacteria July 01, 2020 9:30pm Moderate amount NEGATIVE A Culture has been added to this specime n per established criteria [facility], [address] [place] [address] 41043 Urine Bacteria March 25, 2020 8:05am Small amount NEGATIVE [facility], [address] [place] [address] 76218 Urine Bacteria March 11, 2020 11:00am Small amount NEGATIVE [facility], [address] [place] [address] 67271 Urine Bacteria March 05, 2020 2:29pm Small amount NEGATIVE [facility], [address] [place] [address] 49970 Urine Bacteria March 02, 2020 10:48am Small amount NEGATIVE [facility], [address] [place] [address] 93338 Urine Mucus August 30, 2020 8:15pm Small amount [facility], [address] [place] [address] 56954 Urine Mucus March 25, 2020 8:05am Small amount [facility], [address] [place] [address] 17682 Urine Sperm February 20, 2020 8:40am Few [facility], [address] [place] [address] 23644 Blood Urea Nitrogen August 30 8:15pm 16 mg/dL 05-15 [facility], [address] [place] [address] 90967 Blood Urea Nitrogen August 09 020 7:35pm 8 mg/dL 05-15 [facility], [address] [place] [address] Blood Urea Nitrogen August 03 020 2:35pm 5 mg/dL 05-15 [facility], [address] [place] [address] Blood Urea Nitrogen July 01 9:40pm 6 mg/dL 05-15 [facility], [address] [place] [address] Blood Urea Nitrogen May 18, 2020 6:17am 7 mg/dL 05-15 [facility], [address] [place] [address] Blood Urea Nitrogen March 25, 2020 8:11a m 7 mg/dL 05-15 [facility], [address] [place] [address] Blood Urea Nitrogen March 11, 2020 12:14p m 6 mg/dL 05-15 [facility], [address] [place] [address] Blood Urea Nitrogen March 02, 2020 11:00a m 8 mg/dL 05-15 [facility], [address] [place] [address] Blood Urea Nitrogen February 26, 2020 10:02am 7 mg/dL 05-15 [facility], [address] [place] [address] Blood Urea Nitrogen February 20, 2020 8:35am 6 mg/dL 05-15 [facility], [address] [place] [address] 08877 Sodium Level August 30, 2020 8:15pm 141 mmol/L 132-146 [facility], [address] [place] [address] 48483 Sodium Level August 09, 2020 7:35pm 141 mmol/L 132-146 [facility], [address] [place] [address] 41484 Sodium Level August 03, 2020 2:35pm 138 mmol/L 132-146 [facility], [address] [place] [address] Sodium Level July 01, 2020 9:40pm 141 mmol/L 132-146 [facility], [address] [place] [address] 38427 Sodium Level May 18, 2020 6:17am 143 mmol/L 132-146 [facility], [address] [place] [address] 29839 Sodium Level March 25, 2020 8:11am 137 mmol/L 132-146 [facility], [address] [place] [address] 42371 Sodium Level March 11, 2020 12:14pm 140 mmol/L 132-146 [facility], [address] [place] [address] 75366 Sodium Level March 02, 2020 11:00am 139 mmol/L 132-146 [facility], [address] [place] [address] 04327 Sodium Level February 26, 2020 10:02am 138 mmol/L 132-146 [facility], [address] [place] [address] 29587 Sodium Level February 20, 2020 8:35am 138 mmol/L 132-146 [facility], [address] [place] [address] 78741 Potassium Level August 30, 2020 8:15pm 3.8 mmol/L 3.5-5.5 [facility], [address] [place] [address] 80060 Potassium Level August 09, 2020 7:35pm 3.9 mmol/L 3.5-5.5 [facility], [address] [place] [address] 65514 Potassium Level August 03, 2020 2:35pm 4.6 mmol/L 3.5-5.5 [facility], [address] [place] [address] 20977 Potassium Level July 01, 2020 9:40pm 3.7 mmol/L 3.5-5.5 [facility], [address] [place] [address] 86210 Potassium Level May 18, 2020 6:17a m 3.8 mmol/L 3.5-5.5 [facility], [address] [place] [address] 85257 Potassium Level March 25, 2020 8:11am 3.7 mmol/L 3.5-5.5 [facility], [address] [place] [address] 27495 Potassium Level March 11, 2020 12:14pm 4.3 mmol/L 3.5-5.5 [facility], [address] [place] [address] 88347 Potassium Level March 02, 2020 11:00am 4.1 mmol/L 3.5-5.5 [facility], [address] [place] [address] 81328 Potassium Level February 26, 2020 10:02am 4.1 mmol/L 3.5-5.5 [facility], [address] [place] [address] 72498 Potassium Level February 20, 2020 8:35am 4.1 mmol/L 3.5-5.5 [facility], [address] [place] [address] 39891 Chloride Level August 30, 2020 8:15pm 109 mmol/l 99-109 [facility], [address] [place] [address] 43200 Chloride Level August 09, 2020 7:35pm 111 mmol/l 99-109 [facility], [address] [place] [address] 80044 Chloride Level August 03, 2020 2:35pm 110 mmol/l 99-109 [facility], [address] [place] [address] 98015 Chloride Level July 01, 2020 9:40pm 110 mmol/l 99-109 [facility], [address] [place] [address] 11358 Chloride Level May 18, 2020 6:17am 113 mmol/l 99-109 [facility], [address] [place] [address] 09606 Chloride Level March 25, 2020 8:11am 111 mmol/l 99-109 [facility], [address] [place] [address] 25161 Chloride Level March 11, 2020 12:14pm 111 mmol/l 99-109 [facility], [address] [place] [address] 17518 Chloride Level March 02, 2020 11:00am 111 mmol/l 99-109 [facility], [address] [place] [address] 89566 Chloride Level February 26, 2020 10:02am 107 mmol/l 99-109 [facility], [address] [place] [address] 17659 Chloride Level February 20, 2020 8:35am 108 mmol/l 99-109 [facility], [address] [place] [address] 36413 Carbon Dioxide Level August 30 8:15pm 24 mmol/l 20-31 [facility], [address] [place] [address] 90632 Carbon Dioxide Level August 09, 2020 7:35pm 24 mmol/l 20-31 [facility], [address] [place] [address] 30560 Carbon Dioxide Level August 03, 2020 2:35pm 21 mmol/l 20-31 [facility], [address] [place] [address] 01032 Carbon Dioxide Level July 01 9:40pm 22 mmol/l 20-31 [facility], [address] [place] [address] 72151 Carbon Dioxide Level May 18, 2020 6:17am 25 mmol/l 20-31 [facility], [address] [place] [address] 52715 Carbon Dioxide Level March 25 0 8:11am 21 mmol/l 20-31 [facility], [address] [place] [address] 01699 Carbon Dioxide Level March 11, 2020 12:14pm 20 mmol/l 20-31 [facility], [address] [place] [address] 75727 Carbon Dioxide Level March 02, 2020 11:00am 20 mmol/l 20-31 [facility], [address] [place] [address] 58069 Carbon Dioxide Level February 26, 2020 10:02a m 22 mmol/l [facility], [address] [place] [address] Carbon Dioxide Level February 20, 2020 8:35a m 21 mmol/l 20 [facility], [address] [place] [address] 63565 Anion Gap August 30, 2020 8:15pm 12 mmol/l 8-16 [facility], [address] [place] [address] 32435 Anion Gap August 09, 2020 7:35pm 10 mmol/l 8-16 [facility], [address] [place] [address] 15163 Anion Gap August 03, 2020 2:35pm 12 mmol/l 8-16 [facility], [address] [place] [address] 24076 Anion Gap July 01, 2020 9:40pm 13 mmol/l 8-16 [facility], [address] [place] [address] 51370 Anion Gap May 18, 2020 6:17am 9 mmol/l 8-16 [facility], [address] [place] [address] 20925 Anion Gap March 25, 2020 8:11am 9 mmol/l 8-16 [facility], [address] [place] [address] 91596 Anion Gap March 11, 2020 12:14pm 13 mmol/l 8-16 [facility], [address] [place] [address] 30496 Anion Gap March 02, 2020 11:00am 12 mmol/l 8-16 [facility], [address] [place] [address] 66197 Anion Gap February 26, 2020 10:02am 13 mmol/l 8-16 [facility], [address] [place] [address] 94100 Anion Gap February 20, 2020 8:35am 13 mmol/l 8-16 [facility], [address] [place] [address] 70460 Glucose Level August 30, 2020 8:15pm 90 mg/dL 74-106 [facility], [address] [place] [address] 08750 Glucose Level August 09, 2020 7:35pm 89 mg/dL 74-106 [facility], [address] [place] [address] 73844 Glucose Level August 03, 2020 2:35pm 87 mg/dL 74-106 [facility], [address] [place] [address] 01714 Glucose Level July 01, 2020 9:40pm 100 mg/dL 74-106 [facility], [address] [place] [address] 02623 Glucose Level May 18, 2020 6:17am 93 mg/dL 74-106 [facility], [address] [place] [address] 96173 Glucose Level March 25, 2020 8:11am 93 mg/dL 74-106 [facility], [address] [place] [address] 03054 Glucose Level March 11, 2020 12:14pm 88 mg/dL 74-106 [facility], [address] [place] [address] 39854 Glucose Level March 02, 2020 11:00am 91 mg/dL 74-106 [facility], [address] [place] [address] 81979 Glucose Level February 26, 2020 10:02am 92 mg/dL 74-106 [facility], [address] [place] [address] 36564 Glucose Level February 20, 2020 8:35am 98 mg/dL 74-106 [facility], [address] [place] [address] 94653 Creatinine August 30, 2020 8:15pm 1.1 mg/dL 0.5-1.1 [facility], [address] [place] [address] 64401 Creatinine August 09, 2020 7:35pm 1.3 mg/dL 0.5-1.1 [facility], [address] [place] [address] 87198 Creatinine August 03, 2020 2:35pm 0.8 mg/dL 0.5-1.1 [facility], [address] [place] [address] 46782 Creatinine July 01, 2020 9:40pm 0.9 mg/dL 0.5-1.1 [facility], [address] [place] [address] 48297 Creatinine May 18, 2020 6:17am 0.7 mg/dL 0.5-1.1 [facility], [address] [place] [address] 30828 Creatinine March 25, 2020 8:11am 0.9 mg/dL 0.5-1.1 [facility], [address] [place] [address] 50226 Creatinine March 11, 2020 12:14pm 1.2 mg/dL 0.5-1.1 [facility], [address] [place] [address] Creatinine March 02, 2020 11:00am 1.0 mg/dL 0.5-1.1 [facility], [address] [place] [address] Creatinine February 26, 2020 10:02am 1.0 mg/dL 0.5-1.1 [facility], [address] [place] [address] Creatinine February 20, 2020 8:35am 1.1 mg/dL 0.5-1.1 [facility], [address] [place] [address] 51864 Glomerular Filtration Rate Calc Lukas [email or web address] 8:15pm 60 ml/min ABOVE 60 [facility], [address] [place] [address] 36150 Glomerular Filtration Rate Calc Dece 2019 7:35pm 50 ml/min ABOVE 60 [facility], [address] [place] [address] 11080 Glomerular Filtration Rate Calc Dece [email or web address] 2:35pm Greater than 60 ml/min ABOVE 60 [facility], [address] [place] [address] 30494 Glomerular Filtration Rate Calc Nove [email or web address] 9:40pm Greater than 60 ml/min ABOVE 60 [facility], [address] [place] [address] 51502 Glomerular Filtration Rate Calc Sept 2019 6:17am Greater than 60 ml/min ABOVE 60 [facility], [address] [place] [address] 66129 Glomerular Filtration Rate Calc Aug2019 8:11am Greater than 60 ml/min ABOVE 60 [facility], [address] [place] [address] 51904 Glomerular Filtration Rate Calc March 11, 2020 12:14pm 55 ml/min ABOVE 60 [facility], [address] [place] [address] Glomerular Filtration Rate Calc March 02, 2020 11:00am Greater than 60 ml/min ABOVE 60 [facility], [address] [place] [address] 86059 Glomerular Filtration Rate Calc February 26, 2020 10:02am Greater than 60 ml/min ABOVE 60 [facility], [address] [place] [address] Glomerular Filtration Rate Calc February 20, 2020 8:35am Greater than 60 ml/min ABOVE 60 [facility], [address] [place] [address] 12988 Alanine Aminotransferase (ALT/SGPT) August 09, 2020 7:35pm 30 U/L 10-49 [facility], [address] [place] [address] Alanine Aminotransferase (ALT/SGPT) August 03, 2020 2:35pm 42 U/L 10-49 [facility], [address] [place] [address] Alanine Aminotransferase (ALT/SGPT) July 01, 2020 9:40pm 43 U/L 10-49 [facility], [address] [place] [address] [id number] Alanine Aminotransferase (ALT/SGPT) May 18, 2020 6:17am 52 U/L 10-49 [facility], [address] [place] [address] 61672 Alanine Aminotransferase (ALT/SGPT) March 25, 2020 8:11am 27 U/L 10-49 [facility], [address] [place] [address] 25990 Alanine Aminotransferase (ALT/SGPT) March 11, 2020 12:14pm 29 U/L 10-49 [facility], [address] [place] [address] [id number] Alanine Aminotransferase (ALT/SGPT) March 02, 2020 11:00am 29 U/L 10-49 [facility], [address] [place] [address] 10373 Alanine Aminotransferase (ALT/SGPT) February 26, 2020 10:02am 33 U/L 10-49 [facility], [address] [place] [address] 75692 Alanine Aminotransferase (ALT/SGPT) February 20, 2020 8:35am 42 U/L 10-49 [facility], [address] [place] [address] [id number] Aspartate Amino Transf (AST/SGOT) De cember 2019 7:35pm 13 U/L 0-33 [facility], [address] [place] [address] [id number] Aspartate Amino Transf (AST/SGOT) De cember 2019 2:35pm 35 U/L 0-33 [facility], [address] [place] [address] [id number] Aspartate Amino Transf (AST/SGOT) No vember 2019 9:40pm 21 U/L 0-33 [facility], [address] [place] [address] [phone] Aspartate Amino Transf (AST/SGOT) Se ptember 2019 6:17am 27 U/L 0-33 [facility], [address] [place] [address] [id number] Aspartate Amino Transf (AST/SGOT) Au kem 2019 8:11am 15 U/L 0-33 [facility], [address] [place] [address] [id number] Aspartate Amino Transf (AST/SGOT) Ju ly 2019 12:14pm 17 U/L 0-33 [facility], [address] [place] [address] [id number] Aspartate Amino Transf (AST/SGOT) Ju ly 2019 11:00am 14 U/L 0-33 [facility], [address] [place] [address] [id number] Aspartate Amino Transf (AST/SGOT) Ju ly 2019 10:02am 17 U/L 0-33 [facility], [address] [place] [address] [id number] Aspartate Amino Transf (AST/SGOT) Ju ne 2019 8:35am 23 U/L 0-33 [facility], [address] [place] [address] [id number] Alkaline Phosphatase August 09, 2020 7:35pm 122 U/L 45-129 [facility], [address] [place] [address] [id number] Alkaline Phosphatase August 03, 2020 2:35pm 125 U/L 45-129 [facility], [address] [place] [address] [id number] Alkaline Phosphatase July 01 020 9:40pm 139 U/L 45-129 [facility], [address] [place] [address] [id number] Alkaline Phosphatase May 18, 2020 6:17am 110 U/L 45-129 [facility], [address] [place] [address] [id number] Alkaline Phosphatase March 25 0 8:11am 122 U/L 45-129 [facility], [address] [place] [address] [id number] Alkaline Phosphatase March 11, 2020 12:14pm 129 U/L 45-129 [facility], [address] [place] [address] Alkaline Phosphatase March 02, 2020 11:00am 136 U/L 45-129 [facility], [address] [place] [address] 42211 Alkaline Phosphatase February 26, 2020 10:02a m 147 U/L 45-129 [facility], [address] [place] [address] 03536 Alkaline Phosphatase February 20, 2020 8:35a m 149 U/L 45-129 [facility], [address] [place] [address] 29742 Amylase Level August 09, 2020 7:35pm 39 U/L 30-118 [facility], [address] [place] [address] 33103 Amylase Level August 03, 2020 2:35pm 31 U/L 30-118 [facility], [address] [place] [address] 04831 Amylase Level May 17, 2020 7:20pm 39 U/L 30-118 [facility], [address] [place] [address] 77105 Amylase Level March 25, 2020 8:11am 35 U/L 30-118 [facility], [address] [place] [address] 38468 Lipase August 09, 2020 7:35pm 90 U/L 73-393 [facility], [address] [place] [address] 96740 Lipase August 03, 2020 2:35pm 68 U/L 73-393 [facility], [address] [place] [address] 40757 Lipase May 17, 2020 7:20pm 89 U/L 73-393 [facility], [address] [place] [address] 22624 Lipase March 25, 2020 8:11am 97 U/L 73-393 [facility], [address] [place] [address] 00788 Lipase March 11, 2020 12:14pm 128 U/L 73-393 [facility], [address] [place] [address] 48641 Calcium Level August 30, 2020 8:15pm 9.6 mg/dL 8.5-10.1 [facility], [address] [place] [address] 45026 Calcium Level August 09, 2020 7:35pm 9.5 mg/dL 8.5-10.1 [facility], [address] [place] [address] 86200 Calcium Level August 03, 2020 2:35pm 9.1 mg/dL 8.5-10.1 [facility], [address] [place] [address] 07730 Calcium Level July 01, 2020 9:40pm 9.2 mg/dL 8.5-10.1 [facility], [address] [place] [address] 17831 Calcium Level May 18, 2020 6:17am 8.5 mg/dL 8.5-10.1 Delta: 9.6 on 05/17/20-2019Repeated by: Roderick Cee 05/18/20 0824.Result Confirmation: 8.3 # mg/dL [facility], [address] [place], [place] [address] Calcium Level March 25, 2020 8:11am 8.9 mg/dL 8.5-10.1 [facility], [address] [place] [address] 37465 Calcium Level March 11, 2020 12:14pm 8.6 mg/dL 8.5-10.1 [facility], [address] [place] [address] Calcium Level March 02, 2020 11:00am 9.0 mg/dL 8.5-10.1 [facility], [address] [place] [address] Calcium Level February 26, 2020 10:02am 9.0 mg/dL 8.5-10.1 [facility], [address] [place] [address] 90069 Calcium Level February 20, 2020 8:35am 9.4 mg/dL 8.5-10.1 [facility], [address] [place] [address] 83367 Total Bilirubin August 09, 2020 7:35pm 0.3 mg/dL 0.3-1.2 [facility], [address] [place], [place] [address] Total Bilirubin August 03, 2020 2:35pm 0.4 mg/dL 0.3-1.2 [facility], [address] [place] [address] 96059 Total Bilirubin July 01, 2020 9:40pm 0.3 mg/dL 0.3-1.2 [facility], [address] [place], [place] [address] Total Bilirubin May 18, 2020 6:17a m 0.3 mg/dL 0.3-1.2 [facility], [address] [place] [address] 98088 Total Bilirubin March 25, 2020 8:11am 0.2 mg/dL 0.3-1.2 [facility], [address] [place] [address] 40594 Total Bilirubin March 11, 2020 12:14pm 0.2 mg/dL 0.3-1.2 [facility], [address] [place] [address] 64182 Total Bilirubin March 02, 2020 11:00am 0.4 mg/dL 0.3-1.2 [facility], [address] [place] [address] Total Bilirubin February 26, 2020 10:02am 0.3 mg/dL 0.3-1.2 [facility], [address] [place] [address] Total Bilirubin February 20, 2020 8:35am 0.3 mg/dL 0.3-1.2 [facility], [address] [place], [place] [address] Albumin August 09, 2020 7:35pm 3.6 g/dL 3.2-4.8 [facility], [address] [place], [place] [address] Albumin August 03, 2020 2:35pm 3.5 g/dL 3.2-4.8 [facility], [address] [place], [place] [address] Albumin July 01, 2020 9:40pm 3.5 g/dL 3.2-4.8 [facility], [address] [place], [place] [address] Albumin May 18, 2020 6:17am 3.0 g/dL 3.2-4.8 [facility], [address] [place], [place] [address] Albumin March 25, 2020 8:11am 3.0 g/dL 3.2-4.8 [facility], [address] [place] [address] Albumin March 11, 2020 12:14pm 3.2 g/dL 3.2-4.8 [facility], [address] [place], [place] [address] Albumin March 02, 2020 11:00am 3.1 g/dL 3.2-4.8 [facility], [address] [place], [place] [address] Albumin February 26, 2020 10:02am 3.4 g/dL 3.2-4.8 [facility], [address] [place] [address] Albumin February 20, 2020 8:35am 3.5 g/dL 3.2-4.8 [facility], [address] [place], [place] [address] Serum Total Protein August 09, 020 7:35pm 8.2 g/dL 5.7-8.2 [facility], [address] [place] [address] Serum Total Protein August 03, 020 2:35pm 8.1 g/dL 5.7-8.2 [facility], [address] [place] [address] 45254 Serum Total Protein July 01 9:40pm 8.0 g/dL 5.7-8.2 [facility], [address] [place] [address] 27392 Serum Total Protein May 18, 2020 6:17am 6.6 g/dL 5.7-8.2 [facility], [address] [place] [address] 63874 Serum Total Protein March 25, 2020 8:11a m 7.7 g/dL 5.7-8.2 [facility], [address] [place] [address] 09254 Serum Total Protein March 11, 2020 12:14p m 7.6 g/dL 5.7-8.2 [facility], [address] [place] [address] 95260 Serum Total Protein March 02, 2020 11:00a m 7.9 g/dL 5.7-8.2 [facility], [address] [place] [address] 76432 Serum Total Protein February 26, 2020 10:02am 7.6 g/dL 5.7-8.2 [facility], [address] [place] [address] 23041 Serum Total Protein February 20, 2020 8:35am 7.9 g/dL 5.7-8.2 [facility], [address] [place] [address] 12502 Lactic Acid Level July 01, 2020 9:40p m 1.0 mmol/L 0.5-2.2 [facility], [address] [place] [address] 73931 Human Chorionic Gonadotropin, Quant August 09, 2020 7:35pm 49888 mIU/mL 0-10 APPROXIMATE GESTATION AGE APRROX IMATE HCG RANGE 0-1 WEEK 0 - 50 1-2 WEEKS 40 - 300 2-3 WEEKS 100 - 1,000 3-4 WEEKS 500 - 6,000 1-2 MONTHS 5,000 - 200,000 2-3 MONTHS 10,000 - 100,000 2ND TRIMESTER 3,000 - 50,000 3RD TRIMESTER 1,000 - 50,000 [facility], [address] [place] [address] 94341 Human Chorionic Gonadotropin, Quant August 14, 2020 9:31am 61920 mIU/mL 0-10 APPROXIMATE GESTATION AGE APRROX IMATE HCG RANGE 0-1 WEEK 0 - 50 1-2 WEEKS 40 - 300 2-3 WEEKS 100 - 1,000 3-4 WEEKS 500 - 6,000 1-2 MONTHS 5,000 - 200,000 2-3 MONTHS 10,000 - 100,000 2ND TRIMESTER 3,000 - 50,000 3RD TRIMESTER 1,000 - 50,000 [facility], [address] [place] [address] 88122 Human Chorionic Gonadotropin, Quant August 03, 2020 2:35pm 57550 mIU/mL 0-10 APPROXIMATE GESTATION AGE APRROX IMATE HCG RANGE 0-1 WEEK 0 - 50 1-2 WEEKS 40 - 300 2-3 WEEKS 100 - 1,000 3-4 WEEKS 500 - 6,000 1-2 MONTHS 5,000 - 200,000 2-3 MONTHS 10,000 - 100,000 2ND TRIMESTER 3,000 - 50,000 3RD TRIMESTER 1,000 - 50,000 [facility], [address] [place], [place] [address] Human Chorionic Gonadotropin, Quant July 01, 2020 10:10am Less than 1 mIU/mL 0-1 0 APPROXIMATE GESTATION AGE APRROX IMATE HCG RANGE 0-1 WEEK 0 - 50 1-2 WEEKS 40 - 300 2-3 WEEKS 100 - 1,000 3-4 WEEKS 500 - 6,000 1-2 MONTHS 5,000 - 200,000 2-3 MONTHS 10,000 - 100,000 2ND TRIMESTER 3,000 - 50,000 3RD TRIMESTER 1,000 - 50,000 [facility], [address] [place] [address] 99319 Thyroid Stimulating Hormone (TSH) Ju ly 2019 10:02am 1.84 uIU/mL 0.35-5.50 [facility], [address] [place] [address] 93970 Serum Test, Qualitative De cember 2019 2:35pm Positive NEGATIVE [facility], [address] [place] [address] 89422 Serum Test, Qualitative No vember 2019 9:40pm Negative NEGATIVE [facility], [address] [place] [address] 32326 Serum Test, Qualitative Se ptember 2019 7:20pm Negative NEGATIVE [facility], [address] [place] [address] 19820 Serum Test, Qualitative Au kem 2019 8:11am Negative NEGATIVE [facility], [address] [place] [address] 29062 Urine HCG, Qualitative March 11 11:00am Negative NEGATIVE [facility], [address] [place] [address] 03717 Urine HCG, Qualitative March 02 11:00am Negative NEGATIVE [facility], [address] [place] [address] 13625 Urine HCG, Qualitative February 19 8:32am Negative NEGATIVE [facility], [address] [place] [address] 74076 Coronavirus (COVID-19)(PCR) March 252019 2:30pm Not detected Not Detec dee This test was developed and its performa nce characteristicsdetermined by [facility] [employer]. This test has not beenFDA cleared or approved. This test [facility] been [facility] under an Emergency Use Authorization (EUA). This [...] detected) result in this assay.Performed at: [facility] [address] [id number] Director: Deisy Hdez MD, Phone: [phone] [facility] , [address] [facility] [address] Urine Random Creatinine February 27 7:19am 234.0 mg/dL THERE IS NO ESTABLISHED RANGE FOR RANDOM URINE CREATININE [facility], [address] [place] [address] 97233 Urine Microalbumin February 28, 2020 7:19am 13.7 mg/L 0.0-29.9 [facility], [address] [place] [address] Urine Microalbumin/Creatinine Ratio February 28, 2020 7:19am 5.8 ug/mg 0.0-30.0 [facility], [address] [place] [address] Hemoglobin A1c February 26, 2020 10:02am 5.3 [...] glucose control. * High risk of developing assisted complications such asretinopathy, nephropathy, neuropathy, cardiopathy, etc. Some danger of hypoglycemic reaction in Type I diabetics.Some glucose intolerant individuals and "Sub Clinical"diabetics may demonstrate HGBA1C levels in this area. [facility], [address] [place] [address] Estimated Average Glucose (eAG) February 26, 2020 10:02am 105 mg/dl An A1C of 7% - the goal of diabetic therapy - is equivalentto an EAG of 154 mg/dl. [facility], [address] [place] [address] Microbiology Results Procedure Source Result Collection Date/Time Result Date/Time Result Comment Performing Site Urine Culture Urine,voided August 09, 2020 8:06pm August 11, 2020 7:16am [facility], [address] [place] [address] Urine Culture Urine,clean catch August 03, 2020 2:50pm August 04, 2020 11:45am [facility], [address] [place] [address] Urine Culture Urine,voided July 01, 2020 9:30pm June 232019 7:24am [facility], [address] [place] [address] Urine Culture Urine,voided May 18, 2020 1:15am Septemb2019 11:25am [facility], [address] [place] [address] Urine Culture Urine,clean catch March 25, 2020 9:05am March 26, 2020 1:36pm [facility], [address] [place] [address] Urine Culture Urine,clean catch March 11, 2020 12:00pm March 12, 1:24pm [facility], [address] [place] [address] Urine Culture Urine,voided March 05, 2020 3:29pm March 06, 20 9:18am [facility], [address] [place] [address] 04410 Urine Culture Urine,voided March 02, 2020 11:48am March 03, 020 8:26am [facility], [address] [place] [address] 29309 Streptococcus Rapid Screen Throat March 13, 2020 10:34am March 14, 020 8:58am [facility], [address] [place] [address] 98199 Streptococcus Rapid Screen Throat March 13, 2020 10:34am March 13, 020 11:04am [facility], [address] [place] [address] Blood Culture Venous blood No growth. July 01, 2020 9:40pm June 232019 9:46pm [facility], [address] [place] [address] 57721 SARS-CoV-2 (PCR) Interpretation Naso pharyngeal No Organisms Detected July 01, 2020 9:45pm July 01, 2020 10:29pm [facility], [address] [place] [address] 20583 Nasal BinaxNow Covid - 19 Ag Negative July 30, 2020 9:45am July 302019 11:56am [facility], [address] [place] [address] 04694 Influenza-Like Illness (PCR) Nasopharyngea l No Organisms Detected August 22, 2020 6:22am August 22, 2020 7:41am [facility], [address] [place] [address] 96410 Nasopharyngeal August 22, 2020 6:22am August 22, 2020 7:41am [facility], [address] [place] [address] 39313 Gastrointestinal Tract Panel (PCR) Stool C. difficile toxin detected May 17, 2020 3:03pm May 17, 2020 5:25pm [facility], [address] [place] [address] 74655 Respiratory Panel (PCR) Nasopharyngeal No Organisms Detected May 18, 2020 1:40am May 18, 2020 2:49am [facility], [address] [place] [address] 94192 Diagnostic Imaging Reports Report Dictated Date/Time Dictated By Status Radiology Report February 28, 2020 9:48am Oliverio Chen MD completed [address] [id number] [phone] NAME SEX PT STATUS ACCOUNT NUMBER ANNA MARIE [facility] [id number] ORDERING PHYSICIAN LOCATION MEDICAL RECORD NO. Jose Kramer DO [id number] ATTENDING PHYSICIAN DATE OF DATE OF EXAM/TIME [...] 02, 2020 1:53pm Warren Bourne MD completed [facility] [address] [place] [id number] [phone] NAME SEX PT STATUS ACCOUNT NUMBER ANNA MARIE [facility]TRAN [facility] ER [id number] ORDERING PHYSICIAN LOCATION MEDICAL RECORD NO. Sameer Islas MD ER [id number] ATTENDING PHYSICIAN DATE OF DATE OF EXAM/TIME [...] 12, 2020 2:59pm Oliverio Chen MD completed [place] [address] [place] [id number] [phone] NAME SEX PT STATUS ACCOUNT NUMBER ANNA MARIE [facility]F [id number] ORDERING PHYSICIAN LOCATION MEDICAL RECORD NO. Pola Meadows MD [id number] ATTENDING PHYSICIAN DATE OF DATE OF EXAM/TIME [...] 25, 2020 10:18am Oliverio Chen MD completed [facility] [address] [place] [address] [phone] NAME SEX PT STATUS ACCOUNT NUMBER ANNA MARIE [facility] ER [id number] ORDERING PHYSICIAN LOCATION MEDICAL RECORD NO. Hiren Perez MD ER [id number] ATTENDING PHYSICIAN DATE OF DATE OF EXAM/TIME [...] Trans Dt/Tm: Trans by: DT Prt Dt/Tm: 9685-6061: Total DLP = 0.00 mGy-cm Fluoroscopy Time (in secs): Radiology Report May 17 9:41pm Ulisses Sethi MD completed [facility] [address] [place] [address]67 [phone] NAME SEX PT STATUS ACCOUNT NUMBER ANNA MARIE [facility] ER [id number] ORDERING PHYSICIAN LOCATION MEDICAL RECORD NO. Mikhail Sheriff MD ER [id number] ATTENDING PHYSICIAN DATE OF DATE OF EXAM/TIME [...] 2020 10:55p m Telly Robledo MD completed [place] [address] [place] 4299415 [phone] NAME SEX PT STATUS ACCOUNT NUMBER ANNA MARIE [facility] ER [id number] ORDERING PHYSICIAN LOCATION MEDICAL RECORD NO. Mikhail Sheriff MD ER [id number] ATTENDING PHYSICIAN DATE OF DATE OF EXAM/TIME [...] M.D. Reported By Telly Robledo MD on 07/01/20 7869 Signed By Telly Robledo MD on 07/01/202254 Date Time CC: Nicol Sebastian; Telly Robledo MD Techn: YAULU Trans Dt/Tm: Trans by: DT Prt Dt/Tm: 9979-6547: Total DLP = 0.00 mGy-cm Fluoroscopy Time (in secs): Radiology Report July 01, 2020 11:07p m Niels Wilkerson MD completed [place] [address] [place] [id number] [phone] NAME SEX PT STATUS ACCOUNT NUMBER ANNA MARIE BELTRAN [facility] [id number] ORDERING PHYSICIAN LOCATION MEDICAL RECORD NO. Mikhail Sheriff MD ER [id number] ATTENDING PHYSICIAN DATE OF DATE OF EXAM/TIME [...] Trans Dt/Tm: Trans by: DT Prt Dt/Tm: 5964-0403: Total DLP = 1469.00 mGy-cm 2773-3741: Total Radiation Dose = 22.0350 mSv Lifetime Dose: 56.7900 mS v Radiology Report August 03, 2020 7:33p m Gibran Villa MD completed [facility] [address] [facility] [address] [place] [address] [phone] NAME SEX PT STATUS ACCOUNT NUMBER ANNA MARIE [facility] ER [id number] ORDERING PHYSICIAN LOCATION MEDICAL RECORD NO. Daljit Alex MD ER [id number] ATTENDING PHYSICIAN DATE OF DATE OF EXAM/TIME [...] 2020 7:59p m Telly Robledo MD completed [facility] [address] [place] [address] [phone] NAME SEX PT STATUS ACCOUNT NUMBER BELTRANANNA MARIE [facility] ER [id number] ORDERING PHYSICIAN LOCATION MEDICAL RECORD NO. Daljit Alex MD ER [id number] ATTENDING PHYSICIAN DATE OF DATE OF EXAM/TIME Nicol Sebastian YELITZA [birth year] TYPE / EXAM US Abd single organ/quadrant [...] 2020 7:34p m Gibran Villa MD completed [facility] [address] [place] [address] [phone] NAME SEX PT STATUS ACCOUNT NUMBER ANNA MARIE BELTRAN [facility] ER [id number] ORDERING PHYSICIAN LOCATION MEDICAL RECORD NO. Daljit Alex MD ER [id number] ATTENDING PHYSICIAN DATE OF DATE OF EXAM/TIME Nicol Sebastian YELITZA 1995 08/03/201858 TYPE / EXAM US OB Ultrasound <14 weeks REASON FOR EXAM RLQ PAIN; R/O ECTOPIC [facility] [address] [place] [address] [phone] NAME SEX PT STATUS ACCOUNT NUMBER ANNA MARIE BELTRAN [facility] ER [id number] ORDERING PHYSICIAN LOCATION MEDICAL RECORD NO. Daljit Alex MD ER [id number] ATTENDING PHYSICIAN DATE OF DATE OF EXAM/TIME [...] by: Gibran Villa M.D. Reported By Gibran iVlla MD on 08/03/201932 Signed By Gibran Villa [...] 2020 9:02p m Telly Robledo MD completed [place] [address] [place] [address] [phone] NAME SEX PT STATUS ACCOUNT NUMBER ANNA MARIE BELTRAN [facility] ER [id number] ORDERING PHYSICIAN LOCATION MEDICAL RECORD NO. Mikhail Sheriff MD ER [id number] ATTENDING PHYSICIAN DATE OF DATE OF EXAM/TIME Nicol Sebastian NP 1995 08/09/202038 TYPE / EXAM US OB Ultrasound <14 weeks REASON FOR EXAM Gen abd pain. +HCG ANNA MARIE BELTRAN [id number] 1995 ADDENDUM Clinical History/Indication for Exam: Gen [...] Trans Dt/Tm: Trans by: DT Prt Dt/Tm: 5700-4111: Total DLP = 0.00 mGy-cm 1796-2386: Total Radiation Dose = 0.0000 mSv Lifetime Dose: 56.7900 mSv Radiology Report August 14, 2020 11:09am Oliverio Chen MD completed [place] [address] [place] [id number] [phone] NAME SEX PT STATUS ACCOUNT NUMBER ANNA MARIE [facility] REF [id number] ORDERING PHYSICIAN LOCATION MEDICAL RECORD NO. Jarret Herbert MD [id number] ATTENDING PHYSICIAN DATE OF DATE OF EXAM/TIME Nicol Sebastian NP 1995 08/14/20915 TYPE / EXAM US OB Ultrasound <14 weeks REASON FOR EXAM FOLLOW UP SUBCHOR/ EARLY COMPARISON: August 19, 2020 and 2019 FINDINGS: Gestation: Single [place]-rump length: Singlemm compatible with a Single week Single day gestational age. Yolk sac: Not seen No heart rate detected. Uterus: 8.5 x 4.6 x 7.0cm. A subchorionic hemorrhage is still seen. Average ultrasound age of 5 weeks 6 days. EDC: April 10, 2021. [place]-rump length: 3.4mm IMPRESSION: 1. Gestational sac measurements, unchanged. 2. Subarachnoid hemorrhage is still seen. 3. Linear intraamniotic echogenicity, possibly the pole. No heart rate detected. Reported By Oliverio Chen MD on 08/14/201108 Signed By Oliverio Chen MD on 08/14/201113 Date Time CC: Nicol Sebastian; Oliverio Chen MD Techn: FREST Trans Dt/Tm: Trans by: DT Prt Dt/Tm: 9859-8202: Total DLP = 0.00 mGy-cm 5023-8712: Total Radiation Dose = 0.0000 mSv Lifetime Dose: 56.7900 mSv Radiology Report August 09, 2020 9:05p m Telly Robledo MD completed [place] [address] [place] [address] [phone] NAME SEX PT STATUS ACCOUNT NUMBER ANNA MARIE BELTRAN [facility] ER [id number] ORDERING PHYSICIAN LOCATION MEDICAL RECORD NO. Mikhail Sheriff MD ER [id number] ATTENDING PHYSICIAN DATE OF DATE OF EXAM/TIME RomuloNicol TORRE 1995 08/09/202039 TYPE / EXAM US OB Transvaginal REASON FOR EXAM PAIN [address] [address] [phone] NAME SEX PT STATUS ACCOUNT NUMBER ANNA MARIE BELTRAN [facility] ER [id number] ORDERING PHYSICIAN LOCATION MEDICAL RECORD NO. Mikhail Sheriff MD ER [id number] ATTENDING PHYSICIAN DATE OF DATE OF EXAM/TIME RomuloMauraNicol NP 1995 08/09/202038 TYPE / EXAM US OB Ultrasound <14 weeks REASON FOR EXAM Gen abd pain. +HCG ANNA MARIE BELTRAN [id number] 1995 ADDENDUM Clinical History/Indication for Exam: Gen [...] Trans Dt/Tm: Trans by: DT Prt Dt/Tm: 5157-5062: Total DLP = 0.00 mGy-cm 3521-1778: Total Radiation Dose = 0.0000 mSv Lifetime Dose: 56.7900 mSv Reported By Telly Robledo MD on 08/09/20 2105 Signed By Telly Robledo MD on 08/14/20 1245 Date Time CC: Nicol Sebastian; Telly Robledo MD Techn: CARAI Trans Dt/Tm: Trans by: DT Prt Dt/Tm: 9175-9499: Total DLP = 0.00 mGy-cm 0594-7364: Total Radiation Dose = 0.0000 mSv Lifetime Dose: 56.7900 mSv Radiology Report August 21, 2020 10:47am Oliverio Chen MD completed [facility] [address] [place] [address] [phone] NAME SEX PT STATUS ACCOUNT NUMBER ANNA MARIE BELTRAN [facility] REF [id number] ORDERING PHYSICIAN LOCATION MEDICAL RECORD NO. Jarret Herbert MD [id number] ATTENDING PHYSICIAN DATE OF DATE OF EXAM/TIME Nicol Sebastian NP 1994 08/21/20 / 1017 TYPE / EXAM US OB Transvaginal REASON FOR EXAM EVAL FOR IUP COMPARISON: August 14, 2020. FINDINGS: Gestation: Single [place]-rump length: No pole seen. Gestational sac: 13.4 [...] Trans Dt/Tm: Trans by: DT Prt Dt/Tm: 9699-5014: Total DLP = 0.00 mGy-cm 1658-8208: Total Radiation Dose = 0.0000 mSv Lifetime Dose: 56.7900 mSv Radiology Report August 21, 2020 10:47am Oliverio Chen MD completed [facility] [address] [place] [address] [phone] NAME SEX PT STATUS ACCOUNT NUMBER ANNA MARIE BELTRAN [facility] REF [id number] ORDERING PHYSICIAN LOCATION MEDICAL RECORD NO. Jarret Herbert MD [id number] ATTENDING PHYSICIAN DATE OF DATE OF EXAM/TIME Nicol Sebastian NP 1994 08/21/20 / 1017 TYPE / EXAM US OB Ultrasound <14 weeks REASON FOR EXAM Re-evaluation for subchor. COMPARISON: August 14, 2020. FINDINGS: Gestation: Single [place]-rump length: No pole seen. Gestational sac: 13.4 [...] Trans Dt/Tm: Trans by: DT Prt Dt/Tm: [id number]: Total DLP = 0.00 mGy-cm 8929-1274: Total Radiation Dose = 0.0000 mSv Lifetime Dose: 56.7900 mSv Health Concerns Health Concerns may be documented in an alternate section. Advance Directives Advance Directive Response Recorded Date/Time Advanced Directive No Tee 2020 7:03pm [facility]ST No August 30 10:54am Advance Directives on File or in chart? No August 30, 2020 10:54am Does Patient have a DNR? No August 30, 2020 7:03pm Healthcare Proxy No Lukas flaherty 2020 7:03pm Living Will No August 302020 10:54am Chief Complaint and Reason for Visit Chief [...] PAIN ABDOMINAL PAIN, BLOOD IN URINE/STOOL PAIN DISTRIBUTION AGENT Initial Visit Hernia DISTRIBUTION AGENT SUBCHORIONIC BLEED O02.1/SUCTION D+C [id number] DISTRIBUTION AGENT Post op care ABDOMINAL PAIN Reason for Visit Anxiety Depression [...] Bianka Sen MD Departed Physician/Provider Office Visit -[facility] February 20, 2020 10:22am February 20, [...] 2020 4:29pm null Departed Physician/Provider Office Visit -[facility] March 11, 2020 9:28am March 11, 2020 10:13am Trice Aj NP Departed Physician/Provider Office Visit -[facility] March 11, 2020 10:17am March 11, 2020 11:49am Pola Meadows MD Registered Referred -Laboratory March 11, 2020 11:56am Trice Aj NP Registered Referred -Ultrasound March 12, 2020 11:38am Pola Meadows MD Departed Physician/Provider Office Visit -[facility] March 12, 2020 12:22pm March 12, 2020 2:13pm Trice Aj NP Departed Emergency -Emergency Room ER March 13, 2020 9:18am March 13, 2020 10:18am null Departed Emergency -Emergency Room ER March 25, 2020 7:55am March 25, 2020 9:27am null Departed Physician/Provider Office Visit -[facility] March 25, 2020 2:51pm March 25, 2020 2:52pm Nathalie Pace Registered Referred -Lab Drop Off March 25, 2020 3:08pm Nathalie Pace Departed Physician/Provider Office Visit -[facility] March 28, 2020 7:01am March 28, 2020 7:47am Trice Aj NP Registered Outpatient -[facility] Internal Medicine April 05, 2020 8:29am Trice Aj NP Registered Referred -Laboratory May 17, 2020 1:48pm Trice longoria NP Discharged Inpatient -[facility] May 18, 2020 12:18am May 18, 2020 2:40pm Tad Menendez MD Registered Outpatient -[facility] May 20, 2020 2:25pm Amara Garcia RN Departed Physician/Provider Office Visit -[facility] May 23, 2020 7:51am May 23, 2020 8:35am Trice Aj NP Departed Physician/Provider Office Visit -[facility] May 30, 2020 9:25am May 30, 2020 11:56am Nicol Sebastian NP Departed Physician/Provider Office Visit -[facility] June 10, 2020 8:26am June 10, 2020 8:58am Jarret Herbert MD Departed Physician/Provider Office Visit -[facility] June 28, 2020 3:47pm June 28, 2020 4:33pm Nicol Sebastian NP Departed Physician/Provider Office Visit -[facility] July 01, 2020 9:04am July 01, 2020 11:04am Nicol Sebastian NP Registered Referred -Laboratory July 01, 2020 9:47am Kierstne Schulz DO Departed Emergency -Emergency Room ER July 01, 2020 8:40pm July 02, 2020 12:20am null Departed Physician/Provider Office Visit -[facility] July 04, 2020 11:14am July 04, 2020 12:47pm Nicol Sebastian NP Departed Physician/Provider Office Visit -[facility] July 25, 2020 9:54am July 25, [...] Jarret jade MD Departed Physician/Provider Office Visit -[facility] August 14, 2020 9:41am August 14, 2020 11:45am Jarret Herbert MD Departed Physician/Provider Office Visit -[facility] Surgery August 20, 2020 9:00am August 20, 2020 9:20am Barrett Sparks MD Departed Physician/Provider Office Visit -[facility] August 21, 2020 10:25am August 21, 2020 11:32am Jarret Herbert MD Registered Referred -Ultrasound August 21, 2020 11:17am Jarret jacobson MD Departed Surgical Day Care -[facility] August 22, 2020 6:20am August 22, 2020 10:05am Jarret Herbert MD Departed Physician/Provider Office Visit -[facility] August 27, 2020 10:07am August 27, 2020 10:41am Jarret Herbert MD Departed Emergency -Emergency Room ER August 30, 2020 6:50pm August 30, 2020 9:08pm null Recent Diagnosis Onset Date Anxiety Depression [...] Hernia Unk nown Functional Status Observation Response Enil e Recorded Functional Status Complete [place] May 18, 2020 1:30am Goals Goals may be documented in an alternate section. Immunizations No Immunization Information Available Mental Status Observation Response Neil e Recorded Impairments No impairments or barriers August 30, 2020 6:51pm Cognitive Status Normal Cognition May 18, 2020 1:30am Medical Equipment No Medical Equipment Information available Insurance Providers Guarantor ANNA MARIE BELTRAN Address [address] [address] Contact Info. Home Phone: Payer Policy Id Coverage Id Subscriber's Name Subscriber Id Effective Date Expiration Date [facility] [id number] ANNA MARIE BELTRAN [id number] [facility] [id number] ANNA MARIE BELTRAN [id number] MEDICAID [facility] [id number] ANNA MARIE Saavedra BELTRAN [id number] MEDICAID [id number] ANNA MARIE BELTRAN [id number] Self Pay Self N/A Plan of Treatment [...] aware of the patient as well. Awaiting screen writer referral. Increase diet and exercise. Referral to [facility] for chronic inflammation. Elevate legs. 26 [...] . July 26, 2020 for upper GI. [place] foods rice, applesauce, bananas, and toast. Resolved. [...] that she has [facility], but symptoms are worse at this time, d/t recent move to [place]. Will continue current meds and will refer to psych. Tetryl Screen Operator appt with behavioral health this week. [...] palpation without abnormal physical find ings. Doubt DISTRIBUTION AGENT cause but send urine culture in case. [...] Information Provider Address Jarret Herbert MD Email: [email or web address] Work Phone: [phone] [facility] [phone] c diff - treated with PO vancomycin Trice dimas NP Email: [email or web address] Phone: [facility] [address] [facility] [address] Call for an appointment to be seen in the next 48 hours Jose Kramer DO Email: [email or web address] Phone: [phone] [facility] [address] Call for an appointment for follow-up for Wednesday or Wednesday Jose Kramer DO Email: [email or web address] Phone: [phone] [address] Future Procedures Future procedure information is unavailable [...] Status Status Date of Observation Never smoker August 30, 2020 8:57p m Observation Status Date of Observation Patient currently August 302020 Observation Status Observation Response Neil e of Response Smoking Status Never smoker August 30, 2020 8:57pm Substance Use No August 30, 2020 8:57pm Assigned Sex Female Vital Signs Vital Reading [...] 12, 2020 2:07pm Respiratory rate 20 /min 12-24 March 12, 2020 2:07pm Oxygen saturation by Pulse [...]
--- OUTSIDE RECORDS SUMMARY | 2020-10-18 09:48 | CCD | Continuity of Care Document ---
Author Author [facility] Organization [facility] Address [address] [place] [address] Phone Support Name Relationship Address Phone Jose Kramer PRS [address] [place] [address] FrancyRacheln Bianka PRS [address] [place] [address] John Islas PRS [address] [place] [address] [place] [address] Pola Meadows [place] [address] Pola Meadows PRS [address] [place] [address] Hiren Perez PRS [address] [place] [address] Nathalie Pace PRS [address] [place] [address] Verónica Sheriff PRS [address] [place] [address] Tad Menendez PRS [address] [place] [address] Amara Garcia PRS Unknown Unavailable Nicol Sebastian PRS [address] [place] [address] Darnell Herbert PRS [address] [place] [address] Kiersten Schulz PRS [address] [place] [address] J[place] [address] Daljit Alex PRS [address] [place] [address] Niels Valdez PRS [address] [place] [address] Barrett Sparks PRS [address] [place] [address] Allergies, Adverse Reactions, Alerts Allergen Type Severity Reaction Last Updated Verified Status cephalexin Allergy Moder ate Hives August 22, 2020 6:47am Yes Active latex Allergy Moderate Rash August 22, 2020 6:47am Yes Active ondansetron Allergy Mode rate Hives August 22, 2020 6:47am Yes Active sulfamethoxazole Allergy Moderate Hives August 22, 2020 6:47am Yes Active trimethoprim Allergy Mod erate Hives August 22, 2020 6:47am Yes Active Medications Medication Status Dose Units [...] MG PO daily July 25, 2020 10:02am Nitrofurantoin Monohyd/M-Cryst (Macrobid) 100 mg capsu le [...] MG PO daily August 22, 2020 6:55am Buspirone Discontinued 7 .5 MG PO 2 [...] Procedure Date Performed Status Influenza-Like Illness (PCR) Decembe r 2019 completed [...] 182019 completed Gastrointestinal Tract Panel (PCR) S epteer 2019 completed Xray Chest 2 view PA/LAT [...] Comment Performing Site White Blood Count August 09 0 7:35pm 9.9 10e3/uL 4.45-10.71 [facility], [address] [place] [address] White Blood Count August 14 0 9:31am 9.8 10e3/uL 4.45-10.71 [facility], [address] [place] [address] 86294 White Blood Count August 03 0 2:35pm 8.6 10e3/uL 4.45-10.71 [facility], [address] [place], [place] [id number] White Blood Count July 01, 2020 9:40p m 11.2 10e3/uL 4.45-10.71 [facility], [address] [place] [address] 25638 White Blood Count May 18 6:17am 9.3 10e3/uL 4.45-10.71 [facility], [address] [place] [address] [id number] White Blood Count March 25, 2020 8:11am 10.8 10e3/uL 4.45-10.71 [facility], [address] [place] [address] 85407 White Blood Count March 11, 2020 12:14pm 11.3 10e3/uL 4.45-10.71 [facility], [address] [place] [address] 58050 White Blood Count March 02, 2020 11:00am 10.3 10e3/uL 4.45-10.71 [facility], [address] [place] [address] 02012 White Blood Count February 26, 2020 10:02am 9.8 10e3/uL 4.45-10.71 [facility], [address] [place] [address] 35219 White Blood Count February 20, 2020 8:35am 8.8 10e3/uL 4.45-10.71 [facility], [address] [place] [address] 20934 Red Blood Count August 09, 2020 7:35pm 4.49 10e6/uL 4.20-5.40 [facility], [address] [place] [address] Red Blood Count August 14, 2020 9:31am 4.57 10e6/uL 4.20-5.40 [facility], [address] [place] [address] Red Blood Count August 03, 2020 2:35pm 4.47 10e6/uL 4.20-5.40 [facility], [address] [place] [address] Red Blood Count July 01, 2020 9:40pm 4.51 10e6/uL 4.20-5.40 [facility], [address] [place] [address] Red Blood Count May 18, 2020 6:17a m 4.10 10e6/uL 4.20-5.40 [facility], [address] [place] [address] Red Blood Count March 25, 2020 8:11am 4.25 10e6/uL 4.20-5.40 [facility], [address] [place] [address] 61422 Red Blood Count March 11, 2020 12:14pm 4.58 10e6/uL 4.20-5.40 [facility], [address] [place] [address] Red Blood Count March 02, 2020 11:00am 4.52 10e6/uL 4.20-5.40 [facility], [address] [place] [address] Red Blood Count February 26, 2020 10:02am 4.84 10e6/uL 4.20-5.40 [facility], [address] [place] [address] 95300 Red Blood Count February 20, 2020 8:35am 5.02 10e6/uL 4.20-5.40 [facility], [address] [place] [address] Hemoglobin August 09, 2020 7:35pm 11.4 g/dL 10.7-15.4 [facility], [address] [place] [address] Hemoglobin August 14, 2020 9:31am 11.4 g/dL 10.7-15.4 [facility], [address] [place] [address] Hemoglobin August 03, 2020 2:35pm 11.5 g/dL 10.7-15.4 [facility], [address] [place] [address] Hemoglobin July 01, 2020 9:40pm 11.8 g/dL 10.7-15.4 [facility], [address] [place] [address] 06307 Hemoglobin May 18, 2020 6:17am 10.9 g/dL 10.7-15.4 [facility], [address] [place] [address] Hemoglobin March 25, 2020 8:11am 11.5 g/dL 10.7-15.4 [facility], [address] [place] [address] Hemoglobin March 11, 2020 12:14pm 12.4 g/dL 10.7-15.4 [facility], [address] [place] [address] Hemoglobin March 02, 2020 11:00am 12.1 g/dL 10.7-15.4 [facility], [address] [place] [address] Hemoglobin February 26, 2020 10:02am 13.0 g/dL 10.7-15.4 [facility], [address] [place] [address] Hemoglobin February 20, 2020 8:35am 13.4 g/dL 10.7-15.4 [facility], [address] [place] [address] 11044 Hematocrit August 09, 2020 7:35pm 36.1 % 37-47 [facility], [address] [place] [address] 25681 Hematocrit August 14, 2020 9:31am 36.3 % 37-47 [facility], [address] [place] [address] Hematocrit August 03, 2020 2:35pm 36.1 % 37-47 [facility], [address] [place] [address] 70272 Hematocrit July 01, 2020 9:40pm 36.6 % 37-47 [facility], [address] [place] [address] Hematocrit May 18, 2020 6:17am 34.1 % 37-47 [facility], [address] [place] [address] 87542 Hematocrit March 25, 2020 8:11am 34.7 % 37-47 [facility], [address] [place] [address] Hematocrit March 11, 2020 12:14pm 37.2 % 37-47 [facility], [address] [place] [address] 51361 Hematocrit March 02, 2020 11:00am 36.9 % 37-47 [facility], [address] [place] [address] Hematocrit February 26, 2020 10:02am 39.4 % 37-47 [facility], [address] [place] [address] 79678 Hematocrit February 20, 2020 8:35am 41.0 % 37-47 [facility], [address] [place] [address] 47278 Mean Corpuscular Volume July h2019 7:35pm 80.[address] [place] [address] LABORATORY, [address] [place] [address] 86281 Mean Corpuscular Volume July 9:31am 79.[address] [facility], [address] [place] [address] 86209 Mean Corpuscular Volume July h2019 2:35pm 80.[address] [facility], [address] [place] [address] 80228 Mean Corpuscular Volume June 9:40pm 81.[address] [facility], [address] [place] [address] 65325 Mean Corpuscular Volume May 182019 6:17am 83.[address] [facility], [address] [place] [address] 52314 Mean Corpuscular Volume March 25, 2020 8:11am 81.[address] [place] [address] LABORATORY, [address] [place] [address] 69130 Mean Corpuscular Volume March 11, 020 12:14pm 81.[address] [facility], [address] [place] [address] 96150 Mean Corpuscular Volume March 02, 020 11:00am 81.[address] [facility], [address] [place] [address] 45739 Mean Corpuscular Volume February 25 10:02am 81.[address] [facility], [address] [place] [address] 74026 Mean Corpuscular Volume February 19, 020 8:35am 81.7 fl 80-[address] [place] [address] LABORATORY, [address] [place] [address] 21776 Mean Corpuscular Hemoglobin August 09, 2020 7:35pm 25.4 pg -31 [facility], [address] [place] [address] 25024 Mean Corpuscular Hemoglobin August 14, 2020 9:31am 24.9 pg 27-31 [facility], [address] [place] [address] 15745 Mean Corpuscular Hemoglobin August 03, 2020 2:35pm 25.7 pg 27-31 [facility], [address] [place] [address] 54411 Mean Corpuscular Hemoglobin July 01, 2020 9:40pm 26.2 pg 27-31 [facility], [address] [place] [address] 06436 Mean Corpuscular Hemoglobin Apremb2019 6:17am 26.6 pg 27-31 [facility], [address] [place] [address] 93224 Mean Corpuscular Hemoglobin March 252019 8:11am 27.1 pg 27-31 [facility], [address] [place] [address] 49090 Mean Corpuscular Hemoglobin February 20 h2019 12:14pm 27.1 pg 27-31 [facility], [address] [place] [address] 60278 Mean Corpuscular Hemoglobin February 11 h2019 11:00am 26.8 pg 27-31 [facility], [address] [place] [address] 19528 Mean Corpuscular Hemoglobin February 10:02am 26.9 pg 27-31 [facility], [address] [place] [address] 32618 Mean Corpuscular Hemoglobin January h2019 8:35am 26.7 pg 27-31 [facility], [address] [place] [address] 72557 Mean Corpuscular Hemoglobin Concent August 09, 2020 7:35pm 31.6 g/dl [facility], [address] [place] [address] 69127 Mean Corpuscular Hemoglobin Concent August 14, 2020 9:31am 31.4 g/dl 37 [facility], [address] [place] [address] 96843 Mean Corpuscular Hemoglobin Concent August 03, 2020 2:35pm 31.9 g/dl 3337 [facility], [address] [place] [address] 34977 Mean Corpuscular Hemoglobin Concent July 01, 2020 9:40pm 32.2 g/dl [facility], [address] [place] [address] 65249 Mean Corpuscular Hemoglobin Concent May 18, 2020 6:17am 32.0 g/dl 3337 [facility], [address] [place] [address] 82670 Mean Corpuscular Hemoglobin Concent March 25, 2020 8:11am 33.1 g/dl [facility], [address] [place] [address] 39647 Mean Corpuscular Hemoglobin Concent March 11, 2020 12:14pm 33.3 g/dl [facility], [address] [place] [address] 91310 Mean Corpuscular Hemoglobin Concent March 02, 2020 11:00am 32.8 g/dl [address] [place], [place] [address]GH [facility], [address] [place] [address] 40315 Mean Corpuscular Hemoglobin Concent February 26, 2020 10:02am 33.0 g/dl [address] [place], [place] [address]GH [facility], [address] [place] [address] 83608 Mean Corpuscular Hemoglobin Concent February 20, 2020 8:35am 32.7 g/dl [facility], [address] [place] [address] 70447 Red Cell Distribution Width August 09, 2020 7:35pm 14 % 11-15 [facility], [address] [place] [address] 00303 Red Cell Distribution Width August 14, 2020 9:31am 15 % 11-15 [facility], [address] [place] [address] 75513 Red Cell Distribution Width August 03, 2020 2:35pm 14 % 11-15 [facility], [address] [place] [address] 16454 Red Cell Distribution Width July 01, 2020 9:40pm 14 % 11-15 [facility], [address] [place] [address] 79700 Red Cell Distribution Width 2019 6:17am 14 % 11-15 [facility], [address] [place] [address] 16468 Red Cell Distribution Width March 252019 8:11am 15 % 11-15 [facility], [address] [place] [address] 16944 Red Cell Distribution Width February 12:14pm 15 % 11-15 [facility], [address] [place] [address] 61964 Red Cell Distribution Width February 11:00am 14 % 11-15 [facility], [address] [place] [address] 35139 Red Cell Distribution Width February 10:02am 14 % 11-15 [facility], [address] [place] [address] Red Cell Distribution Width January 8:35am 15 % 11-15 [facility], [address] [place] [address] Platelet Count August 09, 2020 7:35pm 423 10e3/ul 130-472 [facility], [address] [place] [address] Platelet Count August 14, 2020 9:31am 429 10e3/ul 130-472 [facility], [address] [place] [address] Platelet Count August 03, 2020 2:35pm 372 10e3/ul 130-472 [facility], [address] [place] [address] 67795 Platelet Count July 01, 2020 9:40pm 392 10e3/ul 130-472 [facility], [address] [place] [address] Platelet Count May 18, 2020 6:17am 332 10e3/ul 130-472 [facility], [address] [place] [address] Platelet Count March 25, 2020 8:11am 395 10e3/ul 130-472 [facility], [address] [place] [address] Platelet Count March 11, 2020 12:14pm 460 10e3/ul 130-472 [facility], [address] [place] [address] Platelet Count March 02, 2020 11:00am 410 10e3/ul 130-472 [facility], [address] [place] [address] Platelet Count February 26, 2020 10:02am 436 10e3/ul 130-472 [facility], [address] [place] [address] Platelet Count February 20, 2020 8:35am 479 10e3/ul 130-472 [facility], [address] [place] [address] Mean Platelet Volume August 09, 2020 7:35pm 8.9 fl 9.1-13.1 [facility], [address] [place] [address] Mean Platelet Volume August 14, 2020 9:31am 8.9 fl 9.1-13.1 [facility], [address] [place] [address] Mean Platelet Volume August 03, 2020 2:35pm 9.0 fl 9.1-13.1 [facility], [address] [place] [address] Mean Platelet Volume July 01, 020 9:40pm 8.6 fl 9.1-13.1 [facility], [address] [place] [address] 37277 Mean Platelet Volume May 18, 2020 6:17am 8.6 fl 9.1-13.1 [facility], [address] [place] [address] 37708 Mean Platelet Volume March 25 8:11am 8.3 fl 9.1-13.1 [facility], [address] [place] [address] 66301 Mean Platelet Volume March 11, 2020 12:14pm 8.4 fl 9.1-13.1 [facility], [address] [place] [address] 50999 Mean Platelet Volume March 02, 2020 11:00am 8.6 fl 9.1-13.1 [facility], [address] [place] [address] 85613 Mean Platelet Volume February 26, 2020 10:02a m 8.7 fl 9.1-13.1 [facility], [address] [place] [address] 90717 Mean Platelet Volume February 20, 2020 8:35a m 8.7 fl 9.1-13.1 [facility], [address] [place] [address] 66145 Neutrophils (%) (Auto) July 7:35pm 71.3 % [address] [place] [address] LABORATORY, [address] [place] [address] 82081 Neutrophils (%) (Auto) July 9:31am 63.7 % [address] [place] [address] LABORATORY, [address] [place] [address] 57255 Neutrophils (%) (Auto) July 2:35pm 68.8 % [address] [place] [address] LABORATORY, [address] [place] [address] 59047 Neutrophils (%) (Auto) July 01, 2020 9:40pm 66.3 % [address] [place] [address] LABORATORY, [address] [place] [address] 32448 Neutrophils (%) (Auto) April 6:17am 66.1 % [address] [place] [address] LABORATORY, [address] [place] [address] 65072 Neutrophils (%) (Auto) March 25, 020 8:11am 58.4 % [address] [place] [address] LABORATORY, [address] [place] [address] 99540 Neutrophils (%) (Auto) March 11 12:14pm 72.2 % [address] [place] [address] LABORATORY, [address] [place] [address] 79874 Neutrophils (%) (Auto) March 02 11:00am 65.4 % [address] [place] [address] LABORATORY, [address] [place] [address] 28161 Neutrophils (%) (Auto) February 25 10:02am 62.6 % [address] [place] [address] LABORATORY, [address] [place] [address] 68938 Neutrophils (%) (Auto) February 19 8:35am 62.4 % [address] [place] [address] LABORATORY, [address] [place] [address] 61882 Absolute Neutrophil August 09, 2 020 7:35pm 7.0 # 1.7-7.6 [facility], [address] [place] [address] 23201 Absolute Neutrophil August 14, 2 020 9:31am 6.2 # 1.7-7.6 [facility], [address] [place] [address] 37219 Absolute Neutrophil August 03, 2 020 2:35pm 5.9 # 1.7-7.6 [facility], [address] [place] [address] 76841 Absolute Neutrophil July 01 9:40pm 7.5 # 1.7-7.6 [facility], [address] [place] [address] 80079 Absolute Neutrophil May 18, 2020 6:17am 6.1 # 1.7-7.6 [facility], [address] [place] [address] 51939 Absolute Neutrophil March 25, 2020 8:11a m 6.3 # 1.7-7.6 [facility], [address] [place] [address] 82205 Absolute Neutrophil March 11, 2020 12:14p m 8.1 # 1.7-7.6 [facility], [address] [place] [address] 97551 Absolute Neutrophil March 02, 2020 11:00a m 6.7 # 1.7-7.6 [facility], [address] [place] [address] 57399 Absolute Neutrophil February 26, 2020 10:02am 6.1 # 1.7-7.6 [facility], [address] [place] [address] Absolute Neutrophil February 20, 2020 8:35am 5.5 # 1.7-7.6 [facility], [address] [place] [address] 86295 Lymphocytes (%) (Auto) July 7:35pm 19.4 % [address] LABOR[facility]ORY, [address] [place] [address] 10285 Lymphocytes (%) (Auto) July 9:31am 25.9 % [address] [facility], [address] [place], [place] [id number] Lymphocytes (%) (Auto) July 2:35pm 20.2 % [address] [facility], [address] [place] [address] Lymphocytes (%) (Auto) July 01, 2020 9:40pm 21.4 % [address] [facility], [address] [place] [address] 42671 Lymphocytes (%) (Auto) April 6:17am 22.8 % [address] [facility], [address] [place] [address] 81069 Lymphocytes (%) (Auto) March 25 020 8:11am 30.4 % [address] [facility], [address] [place] [address] 36483 Lymphocytes (%) (Auto) March 11 12:14pm 19.0 % [address] [facility], [address] [place] [address] Lymphocytes (%) (Auto) March 02 20 11:00am 23.6 % [address] [facility], [address] [place] [address] 28225 Lymphocytes (%) (Auto) February 25 0 10:02am 25.4 % [address] [facility], [address] [place] [address] Lymphocytes (%) (Auto) February 19 20 8:35am 26.5 % [address] [facility], [address] [place] [address] 90602 Lymphocytes # (Auto) August 09, 2020 7:35pm 1.9 # 0.6-4.6 [facility], [address] [place] [address] 46791 Lymphocytes # (Auto) August 14, 2020 9:31am 2.5 # 0.6-4.6 [facility], [address] [place] [address] 48999 Lymphocytes # (Auto) August 03, 2020 2:35pm 1.7 # 0.6-4.6 [facility], [address] [place] [address] 02882 Lymphocytes # (Auto) July 01, 9:40pm 2.4 # 0.6-4.6 [facility], [address] [place] [address] [id number] Lymphocytes # (Auto) May 18, 2020 6:17am 2.1 # 0.6-4.6 [facility], [address] [place] [address] [id number] Lymphocytes # (Auto) March 25 0 8:11am 3.3 # 0.6-4.6 [facility], [address] [place] [address] [id number] Lymphocytes # (Auto) March 11, 2020 12:14pm 2.1 # 0.6-4.6 [facility], [address] [place] [address] [id number] Lymphocytes # (Auto) March 02, 2020 11:00am 2.4 # 0.6-4.6 [facility], [address] [place] [address] [id number] Lymphocytes # (Auto) February 26, 2020 10:02a m 2.5 # 0.6-4.6 [facility], [address] [place] [address] [id number] Lymphocytes # (Auto) February 20, 2020 8:35a m 2.3 # 0.6-4.6 [facility], [address] [place] [address] [phone] Monocytes (%) (Auto) August 09, 2020 7:35pm 7.0 % 4-12 [facility], [address] [place] [address] [id number] Monocytes (%) (Auto) August 14, 2020 9:31am 6.9 % 4-12 [facility], [address] [place] [address] [phone] Monocytes (%) (Auto) August 03, 2020 2:35pm 8.3 % 4-12 [facility], [address] [place] [address] [phone] Monocytes (%) (Auto) July 01, 020 9:40pm 8.9 % 4-12 [facility], [address] [place] [address] [id number] Monocytes (%) (Auto) May 18, 2020 6:17am 8.7 % 4-12 [facility], [address] [place] [address] [phone] Monocytes (%) (Auto) March 25 0 8:11am 7.7 % 12 [facility], [address] [place] [address] [phone] Monocytes (%) (Auto) March 11, 2020 12:14pm 5.5 % 12-02 [facility], [address] [place] [address] [id number] Monocytes (%) (Auto) March 02, 2020 11:00am 7.8 % [facility], [address] [place] [address] [id number] Monocytes (%) (Auto) February 26, 2020 10:02a m 8.2 % 12-02 [facility], [address] [place] [address] [phone] Monocytes (%) (Auto) February 20, 2020 8:35a m 8.0 % 12-02 [facility], [address] [place] [address] [id number] Monocytes # August 09, 2020 7:35pm 0.7 # 0.2-1.2 [facility], [address] [place] [address] [id number] Monocytes # August 14, 2020 9:31am 0.7 # 0.2-1.2 [facility], [address] [place] [address] [id number] Monocytes # August 03, 2020 2:35pm 0.7 # 0.2-1.2 [facility], [address] [place] [address] [id number] Monocytes # July 01, 2020 9:40pm 1.0 # 0.2-1.2 [facility], [address] [place] [address] [id number] Monocytes # May 18, 2020 6:17am 0.8 # 0.2-1.2 [facility], [address] [place] [address] 89153 Monocytes # March 25, 2020 8:11am 0.8 # 0.2-1.2 [facility], [address] [place] [address] 38368 Monocytes # March 11, 2020 12:14pm 0.6 # 0.2-1.2 [facility], [address] [place] [address] 34325 Monocytes # March 02, 2020 11:00am 0.8 # 0.2-1.2 [facility], [address] [place] [address] 57420 Monocytes # February 26, 2020 10:02am 0.8 # 0.2-1.2 [facility], [address] [place] [address] [phone] Monocytes # February 20, 2020 8:35am 0.7 # 0.2-1.2 [facility], [address] [place] [address] 33601 Eosinophils (%) (Auto) July 7:35pm 1.8 % 0-7 [facility], [address] [place] [address] 96571 Eosinophils (%) (Auto) July 9:31am 3.0 % 0-7 [facility], [address] [place] [address] 39597 Eosinophils (%) (Auto) July 2:35pm 2.2 % 0-7 [facility], [address] [place] [address] 25632 Eosinophils (%) (Auto) July 01, 2020 9:40pm 2.7 % 0-7 [facility], [address] [place] [address] 39097 Eosinophils (%) (Auto) April 6:17am 1.9 % 0-7 [facility], [address] [place] [address] 17603 Eosinophils (%) (Auto) March 25 8:11am 2.7 % 0-7 [facility], [address] [place] [address] 79846 Eosinophils (%) (Auto) March 11 12:14pm 2.5 % 0-7 [facility], [address] [place] [address] 47373 Eosinophils (%) (Auto) March 02 11:00am 2.4 % 0-7 [facility], [address] [place] [address] 55820 Eosinophils (%) (Auto) February 25 0 10:02am 3.1 % 0-7 [facility], [address] [place] [address] 20707 Eosinophils (%) (Auto) February 19 8:35am 2.6 % 0-7 [facility], [address] [place] [address] 06256 Absolute Eosinophils (CBC) August 09, 2020 7:35pm 0.2 # 0.0-0.5 [facility], [address] [place] [address] 76599 Absolute Eosinophils (CBC) August 14, 2020 9:31am 0.3 # 0.0-0.5 [facility], [address] [place] [address] Absolute Eosinophils (CBC) August 03, 2020 2:35pm 0.2 # 0.0-0.5 [facility], [address] [place] [address] Absolute Eosinophils (CBC) July 01, 2020 9:40pm 0.3 # 0.0-0.5 [facility], [address] [place] [address] Absolute Eosinophils (CBC) May 18, 2020 6:17am 0.2 # 0.0-0.5 [facility], [address] [place] [address] Absolute Eosinophils (CBC) March 8:11am 0.3 # 0.0-0.5 [facility], [address] [place] [address] Absolute Eosinophils (CBC) February 12:14pm 0.3 # 0.0-0.5 [facility], [address] [place] [address] Absolute Eosinophils (CBC) February 11:00am 0.3 # 0.0-0.5 [facility], [address] [place] [address] Absolute Eosinophils (CBC) February 26, 2020 10:02am 0.3 # 0.0-0.5 [facility], [address] [place] [address] Absolute Eosinophils (CBC) January 8:35am 0.2 # 0.0-0.5 [facility], [address] [place] [address] 00096 Basophils (%) (Auto) August 09, 2020 7:35pm 0.3 % 0.4-1.3 [facility], [address] [place] [address] 10581 Basophils (%) (Auto) August 14, 2020 9:31am 0.3 % 0.4-1.3 [facility], [address] [place] [address] 04738 Basophils (%) (Auto) August 03, 2020 2:35pm 0.3 % 0.4-1.3 [facility], [address] [place] [address] 96741 Basophils (%) (Auto) July 01 020 9:40pm 0.4 % 0.4-1.3 [facility], [address] [place] [address] 21294 Basophils (%) (Auto) May 18, 2020 6:17am 0.3 % 0.4-1.3 [facility], [address] [place] [address] 32880 Basophils (%) (Auto) March 25 0 8:11am 0.5 % 0.4-1.3 [facility], [address] [place] [address] 26125 Basophils (%) (Auto) March 11, 2020 12:14pm 0.4 % 0.4-1.3 [facility], [address] [place] [address] 20311 Basophils (%) (Auto) March 02, 2020 11:00am 0.5 % 0.4-1.3 [facility], [address] [place] [address] 89744 Basophils (%) (Auto) February 26, 2020 10:02a m 0.4 % 0.4-1.3 [facility], [address] [place] [address] 83269 Basophils (%) (Auto) February 20, 2020 8:35a m 0.3 % 0.4-1.3 [facility], [address] [place] [address] 95663 Absolute Basophils (CBC) August 092019 7:35pm 0.0 # 0.0-0.2 [facility], [address] [place] [address] 08979 Absolute Basophils (CBC) August 142019 9:31am 0.0 # 0.0-0.2 [facility], [address] [place] [address] 18474 Absolute Basophils (CBC) August 032019 2:35pm 0.0 # 0.0-0.2 [facility], [address] [place] [address] Absolute Basophils (CBC) June 9:40pm 0.0 # 0.0-0.2 [facility], [address] [place] [address] 33391 Absolute Basophils (CBC) April 242019 6:17am 0.0 # 0.0-0.2 [facility], [address] [place] [address] 86493 Absolute Basophils (CBC) March 25, 2020 8:11am 0.1 # 0.0-0.2 [facility], [address] [place] [address] 66963 Absolute Basophils (CBC) March 11, 2020 12:14pm 0.0 # 0.0-0.2 [facility], [address] [place] [address] 75260 Absolute Basophils (CBC) March 02, 2020 11:00am 0.1 # 0.0-0.2 [facility], [address] [place] [address] 99437 Absolute Basophils (CBC) February 25 10:02am 0.0 # 0.0-0.2 [facility], [address] [place] [address] 79852 Absolute Basophils (CBC) February 20, 2020 8:35am 0.0 # 0.0-0.2 [facility], [address] [place] [address] 16015 Immature Granulocyte % (Auto) [facility] 2019 7:35pm 0.2 % 0-2 [facility], [address] [place] [address] 74401 Immature Granulocyte % (Auto) [facility] 2019 9:31am 0.2 % 0-2 [facility], [address] [place] [address] 25452 Immature Granulocyte % (Auto) [facility] 2019 2:35pm 0.2 % 0-2 [facility], [address] [place] [address] 31646 Immature Granulocyte % (Auto) [facility] 2019 9:40pm 0.3 % 0-2 [facility], [address] [place] [address] 13918 Immature Granulocyte % (Auto) Sept2019 6:17am 0.2 % 0-2 [facility], [address] [place] [address] 08052 Immature Granulocyte % (Auto) March 25, 2020 8:11am 0.3 % 0-2 [facility], [address] [place] [address] 56892 Immature Granulocyte % (Auto) February 212019 12:14pm 0.4 % 0-2 [facility], [address] [place] [address] 36403 Immature Granulocyte % (Auto) February 202019 11:00am 0.3 % 0-2 [facility], [address] [place] [address] 69558 Immature Granulocyte % (Auto) February 252019 10:02am 0.3 % 0-2 [facility], [address] [place] [address] 87256 Immature Granulocyte % (Auto) January 232019 8:35am 0.2 % 0-2 [facility], [address] [place] [address] Absolute Immature Granulocyte (auto August 09, 2020 7:35pm 0.0 # 0-0.1 [facility], [address] [place] [address] Absolute Immature Granulocyte (auto August 14, 2020 9:31am 0.0 # 0-0.1 [facility], [address] [place] [address] Absolute Immature Granulocyte (auto August 03, 2020 2:35pm 0.0 # 0-0.1 [facility], [address] [place] [address] Absolute Immature Granulocyte (auto July 01, 2020 9:40pm 0.0 # 0-0.1 [facility], [address] [place] [address] Absolute Immature Granulocyte (auto May 18, 2020 6:17am 0.0 # 0-0.1 [facility], [address] [place] [address] Absolute Immature Granulocyte (auto March 25, 2020 8:11am 0.0 # 0-0.1 [facility], [address] [place] [address] Absolute Immature Granulocyte (auto March 11, 2020 12:14pm 0.0 # 0-0.1 [facility], [address] [place] [address] Absolute Immature Granulocyte (auto March 02, 2020 11:00am 0.0 # 0-0.1 [facility], [address] [place] [address] Absolute Immature Granulocyte (auto February 26, 2020 10:02am 0.0 # 0-0.1 [facility], [address] [place], [place] [phone] Absolute Immature Granulocyte (auto February 20, 2020 8:35am 0.0 # 0-0.1 [facility], [address] [place], [place] [id number] Add Manual Differential July h2019 7:35pm No [facility], [address] [place] [address] 68670 Add Manual Differential July d2019 9:31am No [facility], [address] [place] [address] 24457 Add Manual Differential July h2019 2:35pm No [facility], [address] [place] [address] 74221 Add Manual Differential June 9:40pm No [facility], [address] [place] [address] 30305 Add Manual Differential May 182019 6:17am No [facility], [address] [place] [address] 32561 Add Manual Differential March 25, 2020 8:11am No [facility], [address] [place] [address] 46987 Add Manual Differential March 11 12:14pm No [facility], [address] [place] [address] 40681 Add Manual Differential March 02 11:00am No [facility], [address] [place] [address] 40584 Add Manual Differential February 25 10:02am No [facility], [address] [place] [address] 96222 Add Manual Differential February 19 8:35am No [facility], [address] [place] [address] 19024 Differential Total Cells Counted [facility] 2019 7:20pm 100 [facility], [address] [place] [address] 75053 Neutrophils (Manual) May 17, 2020 7:20pm 77 % 41-77 [facility], [address] [place] [address] 39495 Band Neutrophils May 17 0 7:20pm 3 % 0-5 [facility], [address] [place] [address] 37954 Lymphocytes (Manual) May 17, 2020 7:20pm 17 % 14-46 [facility], [address] [place] [address] 85045 Monocytes (Manual) May 17 7:20pm 3 % 4-12 [facility], [address] [place] [address] 12972 Platelet Estimate May 17 7:20pm Appears normal NORMAL [facility], [address] [place] [address] 55753 RBC Morphology May 17 0 7:20pm Appears normal NORMAL [facility], [address] [place] [address] 40240 Urine Color May 18, 2020 12:15am Yellow [facility], [address] [place] [address] 84739 Urine Color February 20, 2020 8:40am Yellow [facility], [address] [place] [address] 27470 Urine Color August 09, 2020 8:06pm Yellow [facility], [address] [place] [address] 13981 Urine Color August 03, 2020 2:50pm Yellow [facility], [address] [place] [address] 14276 Urine Color July 01, 2020 9:30pm Yellow [facility], [address] [place] [address] 69716 Urine Color March 25, 2020 8:05am Yellow [facility], [address] [place] [address] 03181 Urine Color March 11, 2020 11:00am Yellow [facility], [address] [place] [address] 95105 Urine Color March 05, 2020 2:29pm Yellow [facility], [address] [place] [address] 25959 Urine Color March 02, 2020 10:48am Yellow [facility], [address] [place] [address] 66262 Urine Appearance August 09, 2020 8:06p m Clear CLEAR [facility], [address] [place] [address] 09962 Urine Appearance August 03, 2020 2:50p m Clear CLEAR [facility], [address] [place] [address] 55098 Urine Appearance July 01, 2020 9:30pm Cloudy CLEAR [facility], [address] [place] [address] 32750 Urine Appearance May 18 0 12:15am Clear CLEAR [facility], [address] [place] [address] 66192 Urine Appearance March 25, 2020 8:05am Cloudy CLEAR [facility], [address] [place] [address] 52829 Urine Appearance March 11, 2020 11:00am Cloudy CLEAR [facility], [address] [place] [address] 08296 Urine Appearance March 05, 2020 2:29pm Cloudy CLEAR [facility], [address] [place] [address] 13149 Urine Appearance March 02, 2020 10:48am Cloudy CLEAR [facility], [address] [place] [address] 44650 Urine Appearance February 20, 2020 8:40am Turbid CLEAR [facility], [address] [place] [address] 44453 Urine pH August 09, 2020 8:06pm 6.5 [facility], [address] [place] [address] 34813 Urine pH August 03, 2020 2:50pm 7.5 [facility], [address] [place] [address] 26695 Urine pH July 01, 2020 9:30pm 6.0 [facility], [address] [place] [address] Urine pH May 18, 2020 12:15am 6.0 [facility], [address] [place] [address] 21608 Urine pH March 25, 2020 8:05am 5.5 [facility], [address] [place] [address] 02857 Urine pH March 11, 2020 11:00am 6.5 [facility], [address] [place] [address] 54405 Urine pH March 05, 2020 2:29pm 6.0 [facility], [address] [place] [address] 62009 Urine pH March 02, 2020 10:48am 5.5 [facility], [address] [place] [address] 45209 Urine pH February 20, 2020 8:40am 5.5 [facility], [address] [place] [address] Urine Specific [place] July 8:06pm 1.022 [facility], [address] [place] [address] Urine Specific [place] July 2:50pm 1.020 [facility], [address] [place] [address] Urine Specific [place] July 01, 2020 9:30pm 1.026 [facility], [address] [place] [address] Urine Specific [place] April 12:15am >1.045 [facility], [address] [place] [address] Urine Specific [place] March 25 8:05am 1.025 [facility], [address] [place] [address] Urine Specific [place] March 11 11:00am 1.025 [facility], [address] [place] [address] Urine Specific [place] March 05 2:29pm 1.021 [facility], [address] [place] [address] Urine Specific [place] March 02 10:48am 1.025 [facility], [address] [place] [address] Urine Specific [place] February 19 8:40am 1.023 [facility], [address] [place] [address] Urine Leukocyte Esterase April 242019 12:15am Negative NEGATIVE [facility], [address] [place] [address] Urine Leukocyte Esterase February 20, 2020 8:40am Moderate NEGATIVE [facility], [address] [place] [address] Urine Leukocyte Esterase August 092019 8:06pm Small NEGATIVE A Culture has been added to this specimen per established criteria [facility], [address] [place] [address] 64990 Urine Leukocyte Esterase August [id number] 2:50pm Small NEGATIVE A Culture has been added to this specimen per established criteria [facility], [address] [place] [address] Urine Leukocyte Esterase June 9:30pm Small NEGATIVE A Culture has been added to this specimen per established criteria [facility], [address] [place] [address] Urine Leukocyte Esterase March 25, 2020 8:05am Trace NEGATIVE A Culture has been added to this specimen per established criteria [facility], [address] [place] [address] Urine Leukocyte Esterase March 11, 2020 11:00am Trace NEGATIVE A Culture has been added to this specimen per established criteria [facility], [address] [place] [address] Urine Leukocyte Esterase March 05, 2020 2:29pm Trace NEGATIVE A Culture has been added to this specimen per established criteria [facility], [address] [place] [address] Urine Leukocyte Esterase March 02, 2020 10:48am Trace NEGATIVE A Culture has been added to this specimen per established criteria [facility], [address] [place] [address] Urine Nitrite May 18, 2020 12:15am Negative NEGATIVE [facility], [address] [place] [address] Urine Nitrite February 20, 2020 8:40am Negative NEGATIVE [facility], [address] [place] [address] Urine Nitrate August 09, 2020 8:06pm Negative NEGATIVE [facility], [address] [place] [address] Urine Nitrate August 03, 2020 2:50pm Negative NEGATIVE [facility], [address] [place] [address] Urine Nitrate July 01, 2020 9:30pm Negative NEGATIVE [facility], [address] [place] [address] Urine Nitrate March 25, 2020 8:05am Negative NEGATIVE [facility], [address] [place] [address] 31957 Urine Nitrate March 11, 2020 11:00am Negative NEGATIVE [facility], [address] [place] [address] 32652 Urine Nitrate March 05, 2020 2:29pm Negative NEGATIVE [facility], [address] [place] [address] Urine Nitrate March 02, 2020 10:48am Negative NEGATIVE [facility], [address] [place] [address] 44429 Urine Protein August 09, 2020 8:06pm Negative NEGATIVE [facility], [address] [place] [address] 79853 Urine Protein August 03, 2020 2:50pm Negative NEGATIVE [facility], [address] [place] [address] 00979 Urine Protein July 01, 2020 9:30pm Trace NEGATIVE [facility], [address] [place] [address] 04035 Urine Protein May 18, 2020 12:15am Negative NEGATIVE [facility], [address] [place] [address] 00097 Urine Protein March 25, 2020 8:05am Negative NEGATIVE [facility], [address] [place] [address] 64118 Urine Protein March 11, 2020 11:00am Trace NEGATIVE [facility], [address] [place] [address] [id number] Urine Protein March 05, 2020 2:29pm Trace NEGATIVE [facility], [address] [place] [address] [id number] Urine Protein March 02, 2020 10:48am Negative NEGATIVE [facility], [address] [place] [address] [id number] Urine Protein February 20, 2020 8:40am 30 mg/dl NEGATIVE [facility], [address] [place] [address] [id number] Urine Glucose August 09, 2020 8:06pm Negative NEGATIVE [facility], [address] [place] [address] [id number] Urine Glucose August 03, 2020 2:50pm Negative NEGATIVE [facility], [address] [place] [address] [id number] Urine Glucose July 01, 2020 9:30pm Negative NEGATIVE [facility], [address] [place] [address] [id number] Urine Glucose May 18, 2020 12:15am Negative NEGATIVE [facility], [address] [place] [address] [id number] Urine Glucose March 25, 2020 8:05am Negative NEGATIVE [facility], [address] [place] [address] [id number] Urine Glucose March 11, 2020 11:00am Negative NEGATIVE [facility], [address] [place] [address] [id number] Urine Glucose March 05, 2020 2:29pm Negative NEGATIVE [facility], [address] [place] [address] [id number] Urine Glucose March 02, 2020 10:48am Negative NEGATIVE [facility], [address] [place] [address] [id number] Urine Glucose February 20, 2020 8:40am Negative NEGATIVE [facility], [address] [place] [address] [id number] Urine Ketones August 09, 2020 8:06pm Negative NEGATIVE [facility], [address] [place] [address] [id number] Urine Ketones August 03, 2020 2:50pm Negative NEGATIVE [facility], [address] [place] [address] [id number] Urine Ketones July 01, 2020 9:30pm Trace NEGATIVE [facility], [address] [place] [address] Urine Ketones May 18, 2020 12:15am Negative NEGATIVE [facility], [address] [place] [address] [id number] Urine Ketones March 25, 2020 8:05am Trace NEGATIVE [facility], [address] [place] [address] Urine Ketones March 11, 2020 11:00am Trace NEGATIVE [facility], [address] [place] [address] [id number] Urine Ketones March 05, 2020 2:29pm Negative NEGATIVE [facility], [address] [place] [address] [id number] Urine Ketones March 02, 2020 10:48am Negative NEGATIVE [facility], [address] [place] [address] [id number] Urine Ketones February 20, 2020 8:40am Trace NEGATIVE [facility], [address] [place] [address] Urine Urobilinogen August 09 8:06pm 1 eu/dl [facility], [address] [place] [address] Urine Urobilinogen August 03 2:50pm 1 eu/dl [facility], [address] [place] [address] Urine Urobilinogen July 01 0 9:30pm 1 eu/dl [facility], [address] [place] [address] Urine Urobilinogen May 18 12:15am 0.2 eu/dl [facility], [address] [place] [address] Urine Urobilinogen March 25, 2020 8:05am 1 eu/dl [facility], [address] [place] [address] [id number] Urine Urobilinogen March 11, 2020 11:00am 1 eu/dl [facility], [address] [place] [address] Urine Urobilinogen March 05, 2020 2:29pm 0.2 eu/dl [facility], [address] [place] [address] [id number] Urine Urobilinogen March 02, 2020 10:48am 1 eu/dl [facility], [address] [place] [address] Urine Urobilinogen February 20, 2020 8:40am 1 eu/dl [facility], [address] [place] [address] [id number] Urine Bilirubin August 09, 2020 8:06pm Negative NEGATIVE [facility], [address] [place] [address] [id number] Urine Bilirubin August 03, 2020 2:50pm Negative NEGATIVE [facility], [address] [place] [address] Urine Bilirubin July 01, 2020 9:30pm Negative NEGATIVE [facility], [address] [place] [address] [id number] Urine Bilirubin May 18, 2020 12:15am Negative NEGATIVE [facility], [address] [place] [address] Urine Bilirubin March 25, 2020 8:05am Negative NEGATIVE [facility], [address] [place] [address] [id number] Urine Bilirubin March 11, 2020 11:00am Negative NEGATIVE [facility], [address] [place] [address] Urine Bilirubin March 05, 2020 2:29pm Negative NEGATIVE [facility], [address] [place] [address] [id number] Urine Bilirubin March 02, 2020 10:48am Negative NEGATIVE [facility], [address] [place] [address] Urine Bilirubin February 20, 2020 8:40am Negative NEGATIVE [facility], [address] [place] [address] [id number] Urine Blood May 18, 2020 12:15am Negative NEGATIVE [facility], [address] [place] [address] Urine Blood February 20, 2020 8:40am Large NEGATIVE [facility], [address] [place] [address] Urine Blood August 09, 2020 8:06pm Moderate NEGATIVE A Culture has been added to this specimen per established criteria [facility], [address] [place] [address] [id number] Urine Blood August 03, 2020 2:50pm Small NEGATIVE [facility], [address] [place] [address] Urine Blood July 01, 2020 9:30pm Moderate NEGATIVE A Culture has been added to this specimen per established criteria [facility], [address] [place] [address] Urine Blood March 25, 2020 8:05am Negative NEGATIVE [facility], [address] [place] [address] Urine Blood March 11, 2020 11:00am Negative NEGATIVE [facility], [address] [place] [address] Urine Blood March 05, 2020 2:29pm Large NEGATIVE A Culture has been added to this specimen per established criteria [facility], [address] [place] [address] Urine Blood March 02, 2020 10:48am Trace NEGATIVE [facility], [address] [place] [address] Microscopic Urinalysis Comment Septe 2019 12:15am No [facility], [address] [place] [address] [id number] Microscopic Urinalysis Comment February 20, 2020 8:40am Microscopic added [facility], [address] [place] [address] Add Urine Microanalysis July 8:06pm Microscopic added [facility], [address] [place] [address] Add Urine Microanalysis July 2:50pm Microscopic added [facility], [address] [place] [address] Add Urine Microanalysis June 9:30pm Microscopic added [facility], [address] [place] [address] Add Urine Microanalysis March 25, 2020 8:05am Microscopic added [facility], [address] [place] [address] Add Urine Microanalysis March 11, 020 11:00am Microscopic added [facility], [address] [place] [address] Add Urine Microanalysis March 05, 020 2:29pm Microscopic added [facility], [address] [place] [address] Add Urine Microanalysis March 02, 020 10:48am Microscopic added [facility], [address] [place] [address] Urine RBC August 09, 2020 8:06pm 1-2 /hpf [facility], [address] [place] [address] Urine RBC August 03, 2020 2:50pm 6-10 /hpf [facility], [address] [place] [address] Urine RBC July 01, 2020 9:30pm Occasional /hpf [facility], [address] [place] [address] Urine RBC March 05, 2020 2:29pm 3-5 /hpf [facility], [address] [place] [address] Urine RBC March 02, 2020 10:48am Occasional /hpf [facility], [address] [place] [address] Urine WBC February 20, 2020 8:40am 20-30 /hpf [facility], [address] [place] [address] Urine WBC August 09, 2020 8:06pm 1-2 /hpf [facility], [address] [place] [address] Urine WBC August 03, 2020 2:50pm 20-30 /hpf [facility], [address] [place] [address] Urine WBC July 01, 2020 9:30pm Occasional /hpf [facility], [address] [place] [address] Urine WBC March 25, 2020 8:05am 3-5 /hpf [facility], [address] [place] [address] Urine WBC March 11, 2020 11:00am 3-5 /hpf [facility], [address] [place] [address] Urine WBC March 05, 2020 2:29pm Occasional /hpf [facility], [address] [place] [address] Urine WBC March 02, 2020 10:48am 3-5 /hpf [facility], [address] [place] [address] Urine Squamous Epithelial Cells Dece mber 2019 8:06pm Many /hpf [facility], [address] [place] [address] Urine Squamous Epithelial Cells Dece mber 2019 2:50pm Moderate /hpf [facility], [address] [place] [address] Urine Squamous Epithelial Cells Nove mber 2019 9:30pm Moderate /hpf [facility], [address] [place] [address] Urine Squamous Epithelial Cells Augu 2019 8:05am Many /hpf [facility], [address] [place] [address] Urine Squamous Epithelial Cells March 11, 2020 11:00am Many /hpf [facility], [address] [place] [address] Urine Squamous Epithelial Cells March 05, 2020 2:29pm Many /hpf [facility], [address] [place] [address] Urine Squamous Epithelial Cells March 02, 2020 10:48am Many /hpf [facility], [address] [place] [address] [id number] Urine Squamous Epithelial Cells February 20, 2020 8:40am Many /hpf [facility], [address] [place] [address] Urine Bacteria February 20, 2020 8:40am Moderate amount NEGATIVE [facility], [address] [place] [address] Urine Bacteria August 09, 2020 8:06pm Small amount NEGATIVE [facility], [address] [place] [address] Urine Bacteria August 03, 2020 2:50pm Small amount NEGATIVE [facility], [address] [place] [address] Urine Bacteria July 01, 2020 9:30pm Moderate amount NEGATIVE A Culture has been added to this specime n per established criteria [facility], [address] [place] [address] Urine Bacteria March 25, 2020 8:05am Small amount NEGATIVE [facility], [address] [place] [address] Urine Bacteria March 11, 2020 11:00am Small amount NEGATIVE [facility], [address] [place] [address] Urine Bacteria March 05, 2020 2:29pm Small amount NEGATIVE [facility], [address] [place] [address] Urine Bacteria March 02, 2020 10:48am Small amount NEGATIVE [facility], [address] [place] [address] [id number] Urine Mucus March 25, 2020 8:05am Small amount [facility], [address] [place] [address] [id number] Urine Sperm February 20, 2020 8:40am Few [facility], [address] [place] [address] [id number] Blood Urea Nitrogen August 09, 020 7:35pm 8 mg/dL 05-15 [facility], [address] [place] [address] Blood Urea Nitrogen August 03, 020 2:35pm 5 mg/dL 05-15 [facility], [address] [place] [address] Blood Urea Nitrogen July 01 9:40pm 6 mg/dL 05-15 [facility], [address] [place] [address] Blood Urea Nitrogen May 18, 2020 6:17am 7 mg/dL 05-15 [facility], [address] [place] [address] 73609 Blood Urea Nitrogen March 25, 2020 8:11a m 7 mg/dL 05-15 [facility], [address] [place] [address] Blood Urea Nitrogen March 11, 2020 12:14p m 6 mg/dL 05-15 [facility], [address] [place] [address] Blood Urea Nitrogen March 02, 2020 11:00a m 8 mg/dL 05-15 [facility], [address] [place] [address] Blood Urea Nitrogen February 26, 2020 10:02am 7 mg/dL 05-15 [facility], [address] [place] [address] Blood Urea Nitrogen February 20, 2020 8:35am 6 mg/dL 05-15 [facility], [address] [place] [address] 23700 Sodium Level August 09, 2020 7:35pm 141 mmol/L 132-146 [facility], [address] [place] [address] 81148 Sodium Level August 03, 2020 2:35pm 138 mmol/L 132-146 [facility], [address] [place] [address] 99656 Sodium Level July 01, 2020 9:40pm 141 mmol/L 132-146 [facility], [address] [place] [address] 02787 Sodium Level May 18, 2020 6:17am 143 mmol/L 132-146 [facility], [address] [place] [address] 20649 Sodium Level March 25, 2020 8:11am 137 mmol/L 132-146 [facility], [address] [place] [address] 69965 Sodium Level March 11, 2020 12:14pm 140 mmol/L 132-146 [facility], [address] [place] [address] 19482 Sodium Level March 02, 2020 11:00am 139 mmol/L 132-146 [facility], [address] [place] [address] 76708 Sodium Level February 26, 2020 10:02am 138 mmol/L 132-146 [facility], [address] [place] [address] 32530 Sodium Level February 20, 2020 8:35am 138 mmol/L 132-146 [facility], [address] [place] [address] 62939 Potassium Level August 09, 2020 7:35pm 3.9 mmol/L 3.5-5.5 [facility], [address] [place] [address] 20799 Potassium Level August 03, 2020 2:35pm 4.6 mmol/L 3.5-5.5 [facility], [address] [place] [address] 56373 Potassium Level July 01, 2020 9:40pm 3.7 mmol/L 3.5-5.5 [facility], [address] [place] [address] Potassium Level May 18, 2020 6:17a m 3.8 mmol/L 3.5-5.5 [facility], [address] [place] [address] Potassium Level March 25, 2020 8:11am 3.7 mmol/L 3.5-5.5 [facility], [address] [place] [address] 54727 Potassium Level March 11, 2020 12:14pm 4.3 mmol/L 3.5-5.5 [facility], [address] [place] [address] Potassium Level March 02, 2020 11:00am 4.1 mmol/L 3.5-5.5 [facility], [address] [place] [address] 12782 Potassium Level February 26, 2020 10:02am 4.1 mmol/L 3.5-5.5 [facility], [address] [place] [address] [phone] Potassium Level February 20, 2020 8:35am 4.1 mmol/L 3.5-5.5 [facility], [address] [place] [address] 20241 Chloride Level August 09, 2020 7:35pm 111 mmol/l 99-109 [facility], [address] [place] [address] 16762 Chloride Level August 03, 2020 2:35pm 110 mmol/l 99-109 [facility], [address] [place] [address] Chloride Level July 01, 2020 9:40pm 110 mmol/l 99-109 [facility], [address] [place] [address] 04759 Chloride Level May 18, 2020 6:17am 113 mmol/l 99-109 [facility], [address] [place] [address] 93873 Chloride Level March 25, 2020 8:11am 111 mmol/l 99-109 [facility], [address] [place] [address] 61785 Chloride Level March 11, 2020 12:14pm 111 mmol/l 99-109 [facility], [address] [place] [address] 34472 Chloride Level March 02, 2020 11:00am 111 mmol/l 99-109 [facility], [address] [place] [address] [id number] Chloride Level February 26, 2020 10:02am 107 mmol/l 99-109 [facility], [address] [place] [address] 00240 Chloride Level February 20, 2020 8:35am 108 mmol/l 99-109 [facility], [address] [place] [address] 16522 Carbon Dioxide Level August 09, 2020 7:35pm 24 mmol/l 20-31 [facility], [address] [place] [address] 98756 Carbon Dioxide Level August 03, 2020 2:35pm 21 mmol/l 20-31 [facility], [address] [place] [address] 52939 Carbon Dioxide Level July 01 9:40pm 22 mmol/l 20-31 [facility], [address] [place] [address] 79409 Carbon Dioxide Level May 18, 2020 6:17am 25 mmol/l 20-31 [facility], [address] [place] [address] 11093 Carbon Dioxide Level March 25 0 8:11am 21 mmol/l 20-31 [facility], [address] [place] [address] 70644 Carbon Dioxide Level March 11, 2020 12:14pm 20 mmol/l 20-31 [facility], [address] [place] [address] 90243 Carbon Dioxide Level March 02, 2020 11:00am 20 mmol/l 20-31 [facility], [address] [place] [address] 13234 Carbon Dioxide Level February 26, 2020 10:02a m 22 mmol/l 20-31 [facility], [address] [place] [address] 83190 Carbon Dioxide Level February 20, 2020 8:35a m 21 mmol/l 20-31 [facility], [address] [place] [address] 99323 Anion Gap August 09, 2020 7:35pm 10 mmol/l 8-16 [facility], [address] [place] [address] 21581 Anion Gap August 03, 2020 2:35pm 12 mmol/l 8-16 [facility], [address] [place] [address] [phone] Anion Gap July 01, 2020 9:40pm 13 mmol/l 8-16 [facility], [address] [place] [address] 47661 Anion Gap May 18, 2020 6:17am 9 mmol/l 8-16 [facility], [address] [place] [address] 36165 Anion Gap March 25, 2020 8:11am 9 mmol/l -16 [facility], [address] [place] [address] 53566 Anion Gap March 11, 2020 12:14pm 13 mmol/l 816 [facility], [address] [place] [address] 38872 Anion Gap March 02, 2020 11:00am 12 mmol/l [address] [place] [address] [facility]ATORY, [address] [place] [address] 84904 Anion Gap February 26, 2020 10:02am 13 mmol/l [address] [place] [address] [facility], [address] [place] [address] [phone] Anion Gap February 20, 2020 8:35am 13 mmol/l -[address] [place] [address] [facility], [address] [place] [address] 23975 Glucose Level August 09, 2020 7:35pm 89 mg/dL 74-106 [facility], [address] [place] [address] 57044 Glucose Level August 03, 2020 2:35pm 87 mg/dL 74-[address] [place] [address] [facility]ORY, [address] [place] [address] 66122 Glucose Level July 01, 2020 9:40pm 100 mg/dL 74-106 [facility], [address] [place] [address] 19993 Glucose Level May 18, 2020 6:17am 93 mg/dL 74-106 [facility], [address] [place] [address] 65123 Glucose Level March 25, 2020 8:11am 93 mg/dL 74-106 [facility], [address] [place] [address] 53893 Glucose Level March 11, 2020 12:14pm 88 mg/dL 74-106 [facility], [address] [place] [address] 84510 Glucose Level March 02, 2020 11:00am 91 mg/dL 74-106 [facility], [address] [place] [address] 12817 Glucose Level February 26, 2020 10:02am 92 mg/dL 74-106 [facility], [address] [place] [address] 24849 Glucose Level February 20, 2020 8:35am 98 mg/dL 74-106 [facility], [address] [place] [address] 97432 Creatinine August 09, 2020 7:35pm 1.3 mg/dL 0.5-1.1 [facility], [address] [place] [address] [id number] Creatinine August 03, 2020 2:35pm 0.8 mg/dL 0.5-1.1 [facility], [address] [place] [address] Creatinine July 01, 2020 9:40pm 0.9 mg/dL 0.5-1.1 [facility], [address] [place] [address] Creatinine May 18, 2020 6:17am 0.7 mg/dL 0.5-1.1 [facility], [address] [place] [address] Creatinine March 25, 2020 8:11am 0.9 mg/dL 0.5-1.1 [facility], [address] [place] [address] Creatinine March 11, 2020 12:14pm 1.2 mg/dL 0.5-1.1 [facility], [address] [place] [address] Creatinine March 02, 2020 11:00am 1.0 mg/dL 0.5-1.1 [facility], [address] [place] [address] Creatinine February 26, 2020 10:02am 1.0 mg/dL 0.5-1.1 [facility], [address] [place] [address] Creatinine February 20, 2020 8:35am 1.1 mg/dL 0.5-1.1 [facility], [address] [place] [address] 56545 Glomerular Filtration Rate Calc Dece 2019 7:35pm 50 ml/min ABOVE 60 [facility], [address] [place] [address] Glomerular Filtration Rate Calc Dece 2019 2:35pm Greater than 60 ml/min ABOVE 60 [facility], [address] [place] [address] Glomerular Filtration Rate Calc Nove mb2019 9:40pm Greater than 60 ml/min ABOVE 60 [facility], [address] [place] [address] 43254 Glomerular Filtration Rate Calc Sept emb2019 6:17am Greater than 60 ml/min ABOVE 60 [facility], [address] [place] [address] 20995 Glomerular Filtration Rate Calc Augu 2019 8:11am Greater than 60 ml/min ABOVE 60 [facility], [address] [place] [address] [id number] Glomerular Filtration Rate Calc March 11, 2020 12:14pm 55 ml/min ABOVE 60 [facility], [address] [place] [address] Glomerular Filtration Rate Calc March 02, 2020 11:00am Greater than 60 ml/min ABOVE 60 [facility], [address] [place] [address] Glomerular Filtration Rate Calc February 26, 2020 10:02am Greater than 60 ml/min ABOVE 60 [facility], [address] [place] [address] Glomerular Filtration Rate Calc February 20, 2020 8:35am Greater than 60 ml/min ABOVE 60 [facility], [address] [place] [address] [id number] Alanine Aminotransferase (ALT/SGPT) August 09, 2020 7:35pm 30 U/L 10-49 [facility], [address] [place] [address] Alanine Aminotransferase (ALT/SGPT) August 03, 2020 2:35pm 42 U/L 10-49 [facility], [address] [place] [address] 97816 Alanine Aminotransferase (ALT/SGPT) July 01, 2020 9:40pm 43 U/L 10-49 [facility], [address] [place] [address] Alanine Aminotransferase (ALT/SGPT) May 18, 2020 6:17am 52 U/L 10-49 [facility], [address] [place] [address] Alanine Aminotransferase (ALT/SGPT) March 25, 2020 8:11am 27 U/L 10-49 [facility], [address] [place] [address] [phone] Alanine Aminotransferase (ALT/SGPT) March 11, 2020 12:14pm 29 U/L 10-49 [facility], [address] [place] [address] Alanine Aminotransferase (ALT/SGPT) March 02, 2020 11:00am 29 U/L 10-49 [facility], [address] [place] [address] Alanine Aminotransferase (ALT/SGPT) February 26, 2020 10:02am 33 U/L 10-49 [facility], [address] [place] [address] Alanine Aminotransferase (ALT/SGPT) February 20, 2020 8:35am 42 U/L 10-49 [facility], [address] [place] [address] 10098 Aspartate Amino Transf (AST/SGOT) 2019 7:35pm 13 U/L 0-33 [facility], [address] [place] [address] [id number] Aspartate Amino Transf (AST/SGOT) De cem2019 2:35pm 35 U/L 0-33 [facility], [address] [place] [address] [id number] Aspartate Amino Transf (AST/SGOT) No vember 2019 9:40pm 21 U/L 0-33 [facility], [address] [place] [address] [id number] Aspartate Amino Transf (AST/SGOT) Se ptember 2019 6:17am 27 U/L 0-33 [facility], [address] [place] [address] [id number] Aspartate Amino Transf (AST/SGOT) Au kem 2019 8:11am 15 U/L 0-33 [facility], [address] [place] [address] [phone] Aspartate Amino Transf (AST/SGOT) Ju ly 2019 12:14pm 17 U/L 0-33 [facility], [address] [place] [address] [id number] Aspartate Amino Transf (AST/SGOT) Ju ly 2019 11:00am 14 U/L 0-33 [facility], [address] [place] [address] [id number] Aspartate Amino Transf (AST/SGOT) Ju ly 2019 10:02am 17 U/L 0-33 [facility], [address] [place] [address] [id number] Aspartate Amino Transf (AST/SGOT) Ju ne 2019 8:35am 23 U/L 0-33 [facility], [address] [place] [address] [id number] Alkaline Phosphatase August 09, 2020 7:35pm 122 U/L 45-129 [facility], [address] [place] [address] [phone] Alkaline Phosphatase August 03, 2020 2:35pm 125 U/L 45-129 [facility], [address] [place] [address] [id number] Alkaline Phosphatase July 01 020 9:40pm 139 U/L 45-129 [facility], [address] [place] [address] [id number] Alkaline Phosphatase May 18, 2020 6:17am 110 U/L 45-129 [facility], [address] [place] [address] [id number] Alkaline Phosphatase March 25 0 8:11am 122 U/L 45-129 [facility], [address] [place] [address] [id number] Alkaline Phosphatase March 11, 2020 12:14pm 129 U/L 45-129 [facility], [address] [place] [address] [id number] Alkaline Phosphatase March 02, 2020 11:00am 136 U/L 45-129 [facility], [address] [place] [address] [id number] Alkaline Phosphatase February 26, 2020 10:02a m 147 U/L 45-129 [facility], [address] [place] [address] Alkaline Phosphatase February 20, 2020 8:35a m 149 U/L 45-129 [facility], [address] [place] [address] [id number] Amylase Level August 09, 2020 7:35pm 39 U/L 30-118 [facility], [address] [place] [address] Amylase Level August 03, 2020 2:35pm 31 U/L 30-118 [facility], [address] [place] [address] [id number] Amylase Level May 17, 2020 7:20pm 39 U/L 30-118 [facility], [address] [place] [address] [id number] Amylase Level March 25, 2020 8:11am 35 U/L 30-118 [facility], [address] [place] [address] [id number] Lipase August 09, 2020 7:35pm 90 U/L 73-393 [facility], [address] [place] [address] 06028 Lipase August 03, 2020 2:35pm 68 U/L 73-393 [facility], [address] [place] [address] 87257 Lipase May 17, 2020 7:20pm 89 U/L 73-393 [facility], [address] [place] [address] 08871 Lipase March 25, 2020 8:11am 97 U/L 73-393 [facility], [address] [place] [address] 58456 Lipase March 11, 2020 12:14pm 128 U/L 73-393 [facility], [address] [place] [address] 94121 Calcium Level August 09, 2020 7:35pm 9.5 mg/dL 8.5-10.1 [facility], [address] [place] [address] 48365 Calcium Level August 03, 2020 2:35pm 9.1 mg/dL 8.5-10.1 [facility], [address] [place] [address] 19333 Calcium Level July 01, 2020 9:40pm 9.2 mg/dL 8.5-10.1 [facility], [address] [place] [address] 17968 Calcium Level May 18, 2020 6:17am 8.5 mg/dL 8.5-10.1 Delta: 9.6 on 05/17/20-2019Repeated by: Roderick Cee 05/18/20 0824.Result Confirmation: 8.3 # mg/dL [facility], [address] [place] [address] 19264 Calcium Level March 25, 2020 8:11am 8.9 mg/dL 8.5-10.1 [facility], [address] [place] [address] 16815 Calcium Level March 11, 2020 12:14pm 8.6 mg/dL 8.5-10.1 [facility], [address] [place] [address] 98058 Calcium Level March 02, 2020 11:00am 9.0 mg/dL 8.5-10.1 [facility], [address] [place] [address] 38729 Calcium Level February 26, 2020 10:02am 9.0 mg/dL 8.5-10.1 [facility], [address] [place] [address] 84467 Calcium Level February 20, 2020 8:35am 9.4 mg/dL 8.5-10.1 [facility], [address] [place] [address] 09483 Total Bilirubin August 09, 2020 7:35pm 0.3 mg/dL 0.3-1.2 [facility], [address] [place] [address] 64942 Total Bilirubin August 03, 2020 2:35pm 0.4 mg/dL 0.3-1.2 [facility], [address] [place] [address] 79900 Total Bilirubin July 01, 2020 9:40pm 0.3 mg/dL 0.3-1.2 [facility], [address] [place] [address] 89875 Total Bilirubin May 18, 2020 6:17a m 0.3 mg/dL 0.3-1.2 [facility], [address] [place] [address] 40088 Total Bilirubin March 25, 2020 8:11am 0.2 mg/dL 0.3-1.2 [facility], [address] [place] [address] 11984 Total Bilirubin March 11, 2020 12:14pm 0.2 mg/dL 0.3-1.2 [facility], [address] [place] [address] Total Bilirubin March 02, 2020 11:00am 0.4 mg/dL 0.3-1.2 [facility], [address] [place] [address] Total Bilirubin February 26, 2020 10:02am 0.3 mg/dL 0.3-1.2 [facility], [address] [place] [address] Total Bilirubin February 20, 2020 8:35am 0.3 mg/dL 0.3-1.2 [facility], [address] [place] [address] 13165 Albumin August 09, 2020 7:35pm 3.6 g/dL 3.2-4.8 [facility], [address] [place] [address] 04352 Albumin August 03, 2020 2:35pm 3.5 g/dL 3.2-4.8 [facility], [address] [place] [address] 21037 Albumin July 01, 2020 9:40pm 3.5 g/dL 3.2-4.8 [facility], [address] [place] [address] 00354 Albumin May 18, 2020 6:17am 3.0 g/dL 3.2-4.8 [facility], [address] [place] [address] 61363 Albumin March 25, 2020 8:11am 3.0 g/dL 3.2-4.8 [facility], [address] [place] [address] 09986 Albumin March 11, 2020 12:14pm 3.2 g/dL 3.2-4.8 [facility], [address] [place] [address] 89073 Albumin March 02, 2020 11:00am 3.1 g/dL 3.2-4.8 [facility], [address] [place] [address] 58866 Albumin February 26, 2020 10:02am 3.4 g/dL 3.2-4.8 [facility], [address] [place] [address] 94932 Albumin February 20, 2020 8:35am 3.5 g/dL 3.2-4.8 [facility], [address] [place] [address] 99950 Serum Total Protein August 09 020 7:35pm 8.2 g/dL 5.7-8.2 [facility], [address] [place] [address] Serum Total Protein August 03 020 2:35pm 8.1 g/dL 5.7-8.2 [facility], [address] [place] [address] 83648 Serum Total Protein July 01 9:40pm 8.0 g/dL 5.7-8.2 [facility], [address] [place] [address] 54100 Serum Total Protein May 18, 2020 6:17am 6.6 g/dL 5.7-8.2 [facility], [address] [place] [address] 37442 Serum Total Protein March 25, 2020 8:11a m 7.7 g/dL 5.7-8.2 [facility], [address] [place] [address] 80097 Serum Total Protein March 11, 2020 12:14p m 7.6 g/dL 5.7-8.2 [facility], [address] [place] [address] 65611 Serum Total Protein March 02, 2020 11:00a m 7.9 g/dL 5.7-8.2 [facility], [address] [place] [address] 88593 Serum Total Protein February 26, 2020 10:02am 7.6 g/dL 5.7-8.2 [facility], [address] [place] [address] 45193 Serum Total Protein February 20, 2020 8:35am 7.9 g/dL 5.7-8.2 [facility], [address] [place] [address] 84294 Lactic Acid Level July 01, 2020 9:40p m 1.0 mmol/L 0.5-2.2 [facility], [address] [place] [address] 48008 Human Chorionic Gonadotropin, Quant August 09, 2020 7:35pm 19111 mIU/mL 0-10 APPROXIMATE GESTATION AGE APRROX IMATE HCG RANGE 0-1 WEEK 0 - 50 1-2 WEEKS 40 - 300 2-3 WEEKS 100 - 1,000 3-4 WEEKS 500 - 6,000 1-2 MONTHS 5,000 - 200,000 2-3 MONTHS 10,000 - 100,000 2ND TRIMESTER 3,000 - 50,000 3RD TRIMESTER 1,000 - 50,000 [facility], [address] [place] [address] 72832 Human Chorionic Gonadotropin, Quant August 14, 2020 9:31am 48467 mIU/mL 0-10 APPROXIMATE GESTATION AGE APRROX IMATE HCG RANGE 0-1 WEEK 0 - 50 1-2 WEEKS 40 - 300 2-3 WEEKS 100 - 1,000 3-4 WEEKS 500 - 6,000 1-2 MONTHS 5,000 - 200,000 2-3 MONTHS 10,000 - 100,000 2ND TRIMESTER 3,000 - 50,000 3RD TRIMESTER 1,000 - 50,000 [facility], [address] [place] [address] 03183 Human Chorionic Gonadotropin, Quant August 03, 2020 2:35pm 50346 mIU/mL 0-10 APPROXIMATE GESTATION AGE APRROX IMATE HCG RANGE 0-1 WEEK 0 - 50 1-2 WEEKS 40 - 300 2-3 WEEKS 100 - 1,000 3-4 WEEKS 500 - 6,000 1-2 MONTHS 5,000 - 200,000 2-3 MONTHS 10,000 - 100,000 2ND TRIMESTER 3,000 - 50,000 3RD TRIMESTER 1,000 - 50,000 [facility], [address] [place] [address] 36898 Human Chorionic Gonadotropin, Quant July 01, 2020 10:10am Less than 1 mIU/mL 0-1 0 APPROXIMATE GESTATION AGE APRROX IMATE HCG RANGE 0-1 WEEK 0 - 50 1-2 WEEKS 40 - 300 2-3 WEEKS 100 - 1,000 3-4 WEEKS 500 - 6,000 1-2 MONTHS 5,000 - 200,000 2-3 MONTHS 10,000 - 100,000 2ND TRIMESTER 3,000 - 50,000 3RD TRIMESTER 1,000 - 50,000 [facility], [address] [place] [address] 00419 Thyroid Stimulating Hormone (TSH) Ju ly 2019 10:02am 1.84 uIU/mL 0.35-5.50 [facility], [address] [place] [address] 97361 Serum Test, Qualitative De cember 2019 2:35pm Positive NEGATIVE [facility], [address] [place] [address] 49226 Serum Test, Qualitative No vember 2019 9:40pm Negative NEGATIVE [facility], [address] [place] [address] 96794 Serum Test, Qualitative Se ptember 2019 7:20pm Negative NEGATIVE [facility], [address] [place] [address] 07219 Serum Test, Qualitative Au 2019 8:11am Negative NEGATIVE [facility], [address] [place] [address] 24956 Urine HCG, Qualitative March 11 11:00am Negative NEGATIVE [facility], [address] [place] [address] 15874 Urine HCG, Qualitative March 02 11:00am Negative NEGATIVE [facility], [address] [place] [address] 53225 Urine HCG, Qualitative February 19 8:32am Negative NEGATIVE [facility], [address] [place] [address] 91841 Coronavirus (COVID-19)(PCR) March 252019 2:30pm Not detected Not Detec dee This test was developed and its performa nce characteristicsdetermined by [employer]. This test has not beenFDA cleared or [...] (not detected) result in this assay.Performed at: [address] [id number] Director: Deisy Hdez MD, Phone: [phone] [facility] , [address] [facility] [id number] Urine Random Creatinine February 27 7:19am 234.0 mg/dL THERE IS NO ESTABLISHED RANGE FOR RANDOM URINE CREATININE [facility], [address] [address] Urine Microalbumin February 28, 2020 7:19am 13.7 mg/L 0.0-29.9 [facility], [address] [place] [address] Urine Microalbumin/Creatinine Ratio February 28, 2020 7:19am 5.8 ug/mg 0.0-30.0 [facility], [address] [place] [address] Hemoglobin A1c February 26, 2020 10:02am 5.3 [...] glucose control. * High risk of developing chcf complications such asretinopathy, nephropathy, neuropathy, cardiopathy, etc. Some danger of hypoglycemic reaction in Type I diabetics.Some glucose intolerant individuals and "Sub Clinical"diabetics may demonstrate HGBA1C levels in this area. [facility], [address] [place] [address] Estimated Average Glucose (eAG) February 26, 2020 10:02am 105 mg/dl An A1C of 7% - the goal of diabetic therapy - is equivalentto an EAG of 154 mg/dl. [facility], [address] [place] [address] Microbiology Results Procedure Source Result Collection Date/Time Result Date/Time Result Comment Performing Site Urine Culture Urine,voided August 09, 2020 8:06pm August 11, 2020 7:16am [facility], [address] [place] [address] Urine Culture Urine,clean catch August 03, 2020 2:50pm August 04, 2020 11:45am [facility], [address] [place] [address] Urine Culture Urine,voided July 01, 2020 9:30pm June 232019 7:24am [facility], [address] [place] [address] Urine Culture Urine,voided May 18, 2020 1:15am Septembe 2019 11:25am [facility], [address] [place] [address] Urine Culture Urine,clean catch March 25, 2020 9:05am March 26, 2020 1:36pm [facility], [address] [place] [address] 28637 Urine Culture Urine,clean catch March 11, 2020 12:00pm March 12, 020 1:24pm [facility], [address] [place] [address] 59604 Urine Culture Urine,voided March 05, 2020 3:29pm March 06, 20 9:18am [facility], [address] [place] [address] 22632 Urine Culture Urine,voided March 02, 2020 11:48am March 03, 2 020 8:26am [facility], [address] [place] [address] 72252 Streptococcus Rapid Screen Throat March 13, 2020 10:34am March 14, 020 8:58am [facility], [address] [place] [address] 60504 Streptococcus Rapid Screen Throat March 13, 2020 10:34am March 13, 020 11:04am [facility], [address] [place] [address] 59632 Blood Culture Venous blood No growth. July 01, 2020 9:40pm June 232019 9:46pm [facility], [address] [place] [address] 06993 SARS-CoV-2 (PCR) Interpretation Naso pharyngeal No Organisms Detected July 01, 2020 9:45pm July 01, 2020 10:29pm [facility], [address] [place] [address] 39501 Nasal BinaxNow Covid - 19 Ag Negative July 30, 2020 9:45am July 302019 11:56am [facility], [address] [place] [address] 41947 Influenza-Like Illness (PCR) Nasopharyngea l No Organisms Detected August 22, 2020 6:22am August 22, 2020 7:41am [facility], [address] [place] [address] 50401 Nasopharyngeal August 22, 2020 6:22am August 22, 2020 7:41am [facility], [address] [place] [address] 46055 Gastrointestinal Tract Panel (PCR) Stool C. difficile toxin detected May 17, 2020 3:03pm May 17, 2020 5:25pm [facility], [address] [place] [address] 57119 Respiratory Panel (PCR) Nasopharyngeal No Organisms Detected May 18, 2020 1:40am May 18, 2020 2:49am [facility], [address] [facility] [address] Diagnostic Imaging Reports Report Dictated Date/Time Dictated By Status Radiology Report February 28, 2020 9:48am Oliverio Chen MD completed [facility] [address] [place] [address] [phone] NAME SEX PT STATUS ACCOUNT NUMBER ANNA MARIE BELTRAN REG REF [id number] ORDERING PHYSICIAN LOCATION MEDICAL RECORD NO. Jose Kramer DO [id number] ATTENDING PHYSICIAN DATE OF DATE OF EXAM/TIME [...] 02, 2020 1:53pm Warren Bourne MD completed [place] [id number] [place] [id number] [phone] NAME SEX PT STATUS ACCOUNT NUMBER ANNA MARIE BELTRAN [facility] ER [id number] ORDERING PHYSICIAN LOCATION MEDICAL RECORD NO. Sameer Islas MD ER [id number] ATTENDING PHYSICIAN DATE OF DATE OF EXAM/TIME [...] 135 Signed By Warren Bourne MD on 03/02/201352 Date Time CC: Jose Kramer DO; Warren Bourne MD Techn: MORSA Trans Dt/Tm: Trans by: DT Prt Dt/Tm: : Total DLP = 1121.00 mGy-cm : Total Radiation Dose = 16.8150 mSv Lifetime Dose: 16.8150 mS v Radiology Report March 12, 2020 2:59pm Oliverio Chen MD completed [facility] [address] [id number] [phone] NAME SEX PT STATUS ACCOUNT NUMBER ANNA MARIE BELTRAN REG REF [id number] ORDERING PHYSICIAN LOCATION MEDICAL RECORD NO. Pola Meadows MD [id number] ATTENDING PHYSICIAN DATE OF DATE OF EXAM/TIME [...] 25, 2020 10:18am Oliverio Chen MD completed [place] [address] [place] [address] [phone] NAME SEX PT STATUS ACCOUNT NUMBER ANNA MARIE BELTRAN [facility] ER [id number] ORDERING PHYSICIAN LOCATION MEDICAL RECORD NO. Hiren Perez MD ER [id number] ATTENDING PHYSICIAN DATE OF DATE OF EXAM/TIME [...] May 17 9:41pm Ulisses Sethi MD completed [facility] [address] [id number] [phone] NAME SEX PT STATUS ACCOUNT NUMBER ANNA MARIE BELTRAN [facility] ER [id number] ORDERING PHYSICIAN LOCATION MEDICAL RECORD NO. Mikhail Sheriff MD ER [id number] ATTENDING PHYSICIAN DATE OF DATE OF EXAM/TIME [...] CC: Trice Aj; Ulisses Sethi MD Techn: [id number] Trans Dt/Tm: Trans by: DT Prt Dt/Tm: : Total DLP = 1196.00 mGy-cm : Total Radiation Dose = 17.9400 mSv Lifetime Dose: 34.7550 mS v Radiology Report July 01, 2020 10:55p m Telly Robledo MD completed [place] [address] [place] [address] [phone] NAME SEX PT STATUS ACCOUNT NUMBER ANNA MARIE BELTRAN [facility] ER [id number] ORDERING PHYSICIAN LOCATION MEDICAL RECORD NO. Mikhail Sheriff MD ER [id number] ATTENDING PHYSICIAN DATE OF DATE OF EXAM/TIME [...] Trans Dt/Tm: Trans by: DT Prt Dt/Tm: 5509-0955: Total DLP = 0.00 mGy-cm Fluoroscopy Time (in secs): Radiology Report July 01, 2020 11:07p m Niels Wilkerson MD [place] [id number] [phone] NAME SEX PT STATUS ACCOUNT NUMBER ANNA MARIE BELTRAN [facility] [id number] ORDERING PHYSICIAN LOCATION MEDICAL RECORD NO. Mikhail Sheriff MD ER [id number] ATTENDING PHYSICIAN DATE OF DATE OF EXAM/TIME [...] Trans Dt/Tm: Trans by: DT Prt Dt/Tm: 6025-9581: Total DLP = 1469.00 mGy-cm 2742-1948: Total Radiation Dose = 22.0350 mSv Lifetime Dose: 56.7900 mS v Radiology Report August 03, 2020 7:33p m Gibran Villa MD completed [facility] [address] [facility] [address] [phone] NAME SEX PT STATUS ACCOUNT NUMBER ANNA MARIE BELTRAN [facility] ER [id number] ORDERING PHYSICIAN LOCATION MEDICAL RECORD NO. Daljit Alex MD ER [id number] ATTENDING PHYSICIAN DATE OF DATE OF EXAM/TIME [...] 2020 7:59p m Telly Robledo MD completed [address] [address] [place] [address] [phone] NAME SEX PT STATUS ACCOUNT NUMBER ANNA MARIE BELTRAN [facility] ER [id number] ORDERING PHYSICIAN LOCATION MEDICAL RECORD NO. Daljit Alex MD ER [id number] ATTENDING PHYSICIAN DATE OF DATE OF EXAM/TIME [...] 2020 7:34p m Gibran Villa MD completed [place] [address] [place] [address] [phone] NAME SEX PT STATUS ACCOUNT NUMBER ANNA MARIE BELTRAN [facility] ER [id number] ORDERING PHYSICIAN LOCATION MEDICAL RECORD NO. Daljit Alex MD ER [id number] ATTENDING PHYSICIAN DATE OF DATE OF EXAM/TIME Nicol Sebastian INSTITUTION DIRECTOR 1994 08/03/201858 TYPE / EXAM US OB Ultrasound <14 weeks REASON FOR EXAM RLQ PAIN; R/O ECTOPIC [facility] [address] [place] [address] [phone] NAME SEX PT STATUS ACCOUNT NUMBER ANNA MARIE BELTRAN [facility] ER [id number] ORDERING PHYSICIAN LOCATION MEDICAL RECORD NO. Daljit Alex MD ER [id number] ATTENDING PHYSICIAN DATE OF DATE OF EXAM/TIME Nicol Sebastian INSTITUTION DIRECTOR 1994 08/03/201857 TYPE / EXAM US OB [...] 2020 9:02p m Telly Robledo MD completed [facility] [address] [id number] [phone] NAME SEX PT STATUS ACCOUNT NUMBER ANNA MARIE BELTRAN [facility] ER [id number] ORDERING PHYSICIAN LOCATION MEDICAL RECORD NO. Mikhail Sheriff MD ER [id number] ATTENDING PHYSICIAN DATE OF DATE OF EXAM/TIME Nicol Sebastian NP 1994 08/09/202038 TYPE / EXAM US OB Ultrasound <14 weeks REASON FOR EXAM Gen abd pain. +HCG ANNA MARIE BELTRAN [id number] 1994 ADDENDUM Clinical History/Indication for Exam: Gen [...] Ocampo Dt/Tm: Trans by: DT Prt Dt/Tm: 2416-3426: Total DLP = 0.00 mGy-cm 3021-9868: Total Radiation Dose = 0.0000 mSv Lifetime Dose: 56.7900 mSv Radiology Report August 14, 2020 11:09am Oliverio Chen MD completed [facility] [address] [place] [address] [phone] NAME SEX PT STATUS ACCOUNT NUMBER ANNA MARIE BELTRAN REG REF [id number] ORDERING PHYSICIAN LOCATION MEDICAL RECORD NO. Jarret Herbert MD [id number] ATTENDING PHYSICIAN DATE OF DATE OF EXAM/TIME Nicol Sebastian NP 1994 08/14/20915 TYPE / EXAM US OB Ultrasound <14 weeks REASON FOR EXAM FOLLOW UP SUBCHOR/ EARLY COMPARISON: August 19, 2020 and 2019 FINDINGS: Gestation: Single [place]-rump length: Singlemm compatible with a Single week Single day gestational age. Yolk sac: Not seen No heart rate detected. Uterus: 8.5 x 4.6 x 7.0cm. A subchorionic hemorrhage is still seen. Average ultrasound age of 5 weeks 6 days. EDC: April 10, 2021. [place]-rump length: 3.4mm IMPRESSION: 1. Gestational sac measurements, unchanged. 2. Subarachnoid hemorrhage is still seen. 3. Linear intraamniotic echogenicity, possibly the pole. No heart rate detected. Reported By Oliverio Chen MD on 08/14/20 1109 Signed By Oliverio Chen MD on 08/14/20 1114 Date Time CC: Nicol Sebastian; Oliverio Chen MD Techn: FREST Trans Dt/Tm: Trans by: DT Prt Dt/Tm: 9947-8909: Total DLP = 0.00 mGy-cm 7571-7203: Total Radiation Dose = 0.0000 mSv Lifetime Dose: 56.7900 mSv Radiology Report August 09, 2020 9:05p m Telly Robledo MD completed [address] [address] [phone] NAME SEX PT STATUS ACCOUNT NUMBER ANNA MARIE BELTRAN [facility] ER [id number] ORDERING PHYSICIAN LOCATION MEDICAL RECORD NO. Mikhail Sheriff MD ER [id number] ATTENDING PHYSICIAN DATE OF DATE OF EXAM/TIME Nicol Sebastian NP 1994 08/09/202039 TYPE / EXAM US OB Transvaginal REASON FOR EXAM PAIN [address] [id number] [phone] NAME SEX PT STATUS ACCOUNT NUMBER ANNA MARIE BELTRAN [facility] ER [id number] ORDERING PHYSICIAN LOCATION MEDICAL RECORD NO. Mikhail Sheriff MD ER [id number] ATTENDING PHYSICIAN DATE OF DATE OF EXAM/TIME Nicol Sebastian NP 1994 08/09/202038 TYPE / EXAM US OB Ultrasound <14 weeks REASON FOR EXAM Gen abd pain. +HCG ANNA MARIE BELTRAN [id number] 1995 ADDENDUM Clinical History/Indication for Exam: Gen abd pain. +HCG Addendum: The average ultrasound gestational age is 5 weeks and 5 days in gestation with an estimated delivery date is 04/06/2020 REPORT SIGNATURE ON FILE 08/09/2020 (23:06 Eastern Time ) Signed by: Telly Robledo M.D. Addendum Reported By Telly Robeldo MD on 08/09/202305 Signed By Telly Robledo [...] Trans Dt/Tm: Trans by: DT Prt Dt/Tm: [phone]: Total DLP = 0.00 mGy-cm 3577-5760: Total Radiation Dose = 0.0000 mSv Lifetime Dose: 56.7900 mSv Reported By Telly Robledo MD on 08/09/202104 Signed By Telly Robledo MD on 08/14/20 124 Date Time CC: Nicol Sebastian; Telly Robledo MD Techn: CARAI Trans Dt/Tm: Trans by: DT Prt Dt/Tm: : Total DLP = 0.00 mGy-cm 9747-8090: Total Radiation Dose = 0.0000 mSv Lifetime Dose: 56.7900 mSv Radiology Report August 21, 2020 10:47am Oliverio Chen MD completed [place] [id number] [phone] NAME SEX PT STATUS ACCOUNT NUMBER ANNA MARIE BELTRAN [facility] REF [id number] ORDERING PHYSICIAN LOCATION MEDICAL RECORD NO. Jarret Herbert MD [id number] ATTENDING PHYSICIAN DATE OF DATE OF EXAM/TIME Nicol Sebastian NP 1994 08/21/20 / 7 TYPE / EXAM US OB Transvaginal REASON FOR EXAM EVAL FOR IUP COMPARISON: August 14, 2020. FINDINGS: Gestation: Single [place]-rump length: No pole seen. Gestational sac: 13.4 [...] Trans Dt/Tm: Trans by: DT Prt Dt/Tm: [phone]: Total DLP = 0.00 mGy-cm 0383-0840: Total Radiation Dose = 0.0000 mSv Lifetime Dose: 56.7900 mSv Radiology Report August 21, 2020 10:47am [place] [address] [phone] NAME SEX PT STATUS ACCOUNT NUMBER ANNA MARIE BELTRAN [facility] REF [id number] ORDERING PHYSICIAN LOCATION MEDICAL RECORD NO. Jarret Herbert MD [id number] ATTENDING PHYSICIAN DATE OF DATE OF EXAM/TIME Nicol Sebastian NP 1994 08/21/20 / 1017 TYPE / EXAM US OB Ultrasound <14 weeks REASON FOR EXAM Re-evaluation for subchor. COMPARISON: August 14, 2020. FINDINGS: Gestation: Single [place]-rump length: No pole seen. Gestational sac: 13.4 [...] Ocampo Dt/Tm: Trans by: DT Prt Dt/Tm: [phone]: Total DLP = 0.00 mGy-cm 9054-0138: Total Radiation Dose = 0.0000 mSv Lifetime Dose: 56.7900 mSv Health Concerns Health Concerns may be documented in an alternate section. Advance Directives Advance Directive Response Recorded Date/Time Advanced Directive No Carter 2019 2:57pm MOLST No August 21, 2020 2:57pm Advance Directives on File or in chart? No August 21, 2020 2:57pm Does Patient have a DNR? No August 21, 2020 2:57pm Healthcare Proxy No Dece mb 2019 2:57pm Living Will No August 21, 2020 2:57pm Chief Complaint and Reason for Visit Chief [...] PAIN ABDOMINAL PAIN, BLOOD IN URINE/STOOL PAIN [employer] Initial Visit Hernia [employer] SUBCHORIONIC BLEED O02.1/SUCTION D+C [id number] [employer] Post op care Reason for Visit Anxiety [...] Bianka Sen MD Departed Physician/Provider Office Visit -[facility] February 20, 2020 10:22am February 20, [...] 2020 4:29pm null Departed Physician/Provider Office Visit -[facility] March 11, 2020 9:28am March 11, 2020 10:13am Trice Aj NP Departed Physician/Provider Office Visit -[facility] Women's [facility] March 11, 2020 10:17am March 11, 2020 11:49am Pola Meadows MD Registered Referred -Laboratory March 11, 2020 11:56am Trice Aj NP Registered Referred -Ultrasound March 12, 2020 11:38am Pola Meadows MD Departed Physician/Provider Office Visit -[facility] March 12, 2020 12:22pm March 12, 2020 2:13pm Trice Aj NP Departed Emergency -Emergency Room ER March 13, 2020 9:18am March 13, 2020 10:18am null Departed Emergency -Emergency Room ER March 25, 2020 7:55am March 25, 2020 9:27am null Departed Physician/Provider Office Visit -[facility] March 25, 2020 2:51pm March 25, 2020 2:52pm Nathalie Pace Registered Referred -Lab Drop Off March 25, 2020 3:08pm Nathalie Pace Departed Physician/Provider Office Visit -[facility] March 28, 2020 7:01am March 28, 2020 7:47am Trice Aj NP Registered Outpatient -[facility] Internal Medicine April 05, 2020 8:29am Trice Aj NP Registered Referred -Laboratory May 17, 2020 1:48pm Trice longoria NP Discharged Inpatient -[facility] May 18, 2020 12:18am May 18, 2020 2:40pm Tad Menendez MD Registered Outpatient -[facility] May 20, 2020 2:25pm Amara Garcia RN Departed Physician/Provider Office Visit -[facility] May 23, 2020 7:51am May 23, 2020 8:35am Trice Aj NP Departed Physician/Provider Office Visit -[facility] May 30, 2020 9:25am May 30, 2020 11:56am Nicol Sebastian NP Departed Physician/Provider Office Visit -[facility] Women's [facility] June 10, 2020 8:26am June 10, 2020 8:58am Jarret Herbert MD Departed Physician/Provider Office Visit [facility] June 28, 2020 3:47pm June 28, 2020 4:33pm Nicol Sebastian NP Departed Physician/Provider Office Visit -[facility] July 01, 2020 9:04am July 01, 2020 11:04am Nciol Sebastian NP Registered Referred -Laboratory July 01, 2020 9:47am Kiersten Schulz DO Departed Emergency -Emergency Room ER July 01, 2020 8:40pm July 02, 2020 12:20am null Departed Physician/Provider Office Visit -[facility] July 04, 2020 11:14am July 04, 2020 12:47pm Nicol Sebastian NP Departed Physician/Provider Office Visit -[facility] July 25, 2020 9:54am July 25, [...] Jarret jade MD Departed Physician/Provider Office Visit -[facility] August 14, 2020 9:41am August 14, 2020 11:45am Jarret Herbert MD Departed Physician/Provider Office Visit -[facility] August 20, 2020 9:00am August 20, 2020 9:20am Barrett Sparks MD Departed Physician/Provider Office Visit -[facility] August 21, 2020 10:25am August 21, 2020 11:32am Jarret Herbert MD Registered Referred -Ultrasound August 21, 2020 11:17am Jarret jacobson MD Departed Surgical Day Care -[facility] August 22, 2020 6:20am August 22, 2020 10:05am Jarret Herbert MD Departed Physician/Provider Office Visit -[facility] August 27, 2020 10:07am August 27, 2020 10:41am Jarret Herbert MD Recent Diagnosis Onset Date [...] Response Neil e Recorded Functional Status Complete [place] May 18, 2020 1:30am Goals Goals may be documented in an alternate section. Immunizations No Immunization Information Available Mental Status Observation Response Neil e Recorded Cognitive Status Normal Cognition May 18, 2020 1:30am Medical Equipment No Medical Equipment Information available Insurance Providers Guarantor ANNA MARIE BELTRAN Address [address] [place] [address] Contact Info. Home Phone: Payer Policy Id Coverage Id Subscriber's Name Subscriber Id Effective Date Expiration Date [facility] [id number] ANNA MARIE BELTRAN [id number] [facility] [id number] ANNA MARIE BELTRAN [id number] MEDICAID [place] [facility] [id number] ANNA MARIE M BELTRAN [id number] MEDICAID [id number] ANNA MARIE Saavedra BELTRAN [id number] Self Pay Self N/A Plan of Treatment [...] a spontaneous miscarriage at home over the [facility]. She chooses to wait for [...] aware of the patient as well. Awaiting technical coordinator referral. Increase diet and exercise. Referral to [facility] for chronic inflammation. Elevate legs. 26 [...] . July 26, 2020 for upper GI. [place] [employer] rice, applesauce, bananas, and toast. Resolved. [...] she has had counseling in the [facility], but symptoms are worse at this time, d/t recent move to [place]. Will continue current meds and will refer to psych. Manufacturing Intern appt with behavioral health this week. Taking [...] palpation without abnormal physical find ings. Doubt [employer] cause but send urine culture in case. [...] Information Provider Address Jarret Herbert MD Email: [email or web address] Phone: [phone] [phone] c diff - treated with PO vancomycin Trice dimas NP Email: [email or web address] Phone: [facility] [phone] [phone] Call for an appointment to be seen in the next 48 hours Jose Kramer DO Email: [email or web address] Phone: [phone] [facility] [phone] Call for an appointment for follow-up for Wednesday or Wednesday Jose Kramer DO Email: [email or web address] Phone: [phone] [facility] [phone] Future Procedures Future procedure information is unavailable [...] Status Date of Observation Never smoker August 22, 2020 8:5 9am Observation Status Date of Observation Patient currently August 21, 2020 Observation Status Observation Response Neil e of Response Smoking Status Never smoker August 22, 2020 8:59am Substance Use No Decembe r 2019 6:50am Assigned Sex Female Vital Signs Vital Reading [...] 2020 5:29pm Heart Rate 76 /min 60-100 Zak 12th, 2020 5:29pm Respiratory rate 20 /min 12-August 03, 2020 5:29pm Oxygen saturation by Pulse [...] 27, 2020 10:23am Respiratory rate 16 /min 12-24 August 27, 2020 10:23am Oxygen saturation by Pulse oximetry 97 % 95- 100 August 27, 2020 10:23am BP Systolic 119 mm[Hg] August 27, 2020 10:23am BP Diastolic 74 mm[Hg] August 27, 2020 10:23am BMI (Body Mass Index) 46.3 kg/m2 August 27, 2020 10:23am
--- OUTSIDE RECORDS SUMMARY | 2020-10-18 09:49 | CCD | Continuity of Care Document ---
Author Author Stephanie GUERRA PA Organization Unknown Address [address] [place] [address] Phone [phone] Care Team Providers Care Acid Purifier Name Role Phone Trice Aj N.P. [facility]PT,Oc,[facility] Problems Active Problems Provider Date Essential hypertension Aba Sprague M.D. Onset: 05/24 Social History Type Date Description Comments Sex Unknown ETOH Use Denies alcohol use Tobacco Use Reviewed: 04/18/20 Non Smoker Recreational Drug Use Denies Drug Use Smoking Status Reviewed: 04/18/20 Non Smoker Allergies, Adverse Reactions, Alerts Active Allergies Reaction Severity Comments Date Latex 04/10/2020 Keflex 04/10/2020 Zofran 04/10/2020 Bactrim 04/10/2020 Cephalexin 04/10/2020 Medications Active Medications SIG Qnty Indications Ordering Provide r Date Metamucil 48.57% Powder 1 tablespoon by mouth every day after meals ( please give pills if not covered by insurance) 500ml Aba Sprague M.D. 08/26/2020 Metamucil 0.52gm Capsules 1 cap by mouth twice a day after meals (adjust dose depending on symptoms) 90caps Aba Sprague M.D. 08/26/2020 Sucralfate 1GM/10ML Suspension 10 milliliters by mouth after meals, 3 times daily ( if not covered by insurance, please give tablets) 400ml Aba Sprague M.D. 1 10/03/2019 Pantoprazole Sodium 40mg Tablets D R twice daily -- one tablet in morning 1/2 hour before breakfast and one tablet prior to bedtime. total course 3 months. 60tabs R10.13 Aba Weber ala, M.D. 07/23/2020 Dicyclomine HCL 20mg Tablets take 1 tablet by mouth 1 to 2 times daily before meals for diarrhea and abdominal cramps 60tadestiney R10.13 Aba Sprague M.D. 06/20/2020 Sertraline HCL 50mg Tablets 1tab po qd Unknown Buspirone HCL 7.5mg Tablets 1tab po bid Unknown Metoprolol Succinate ER 50mg Tablets ER 24HR 1tab po qd Unknown Equate Probiotic Gummie 2tabs po qd Unknown Promethazine HCL 50mg Tablets 1tab po prn for nausea Unknown Quetiapine Fumarate 25mg Tablets 1tab po qhs Unknown History Medications Metoclopramide HCL 5mg Tablets 1 tabler by mouth once or twice a day, take only when having severe nausea. 14tabs Aba Sprague M.D. 05/03/2020 - 06/19/2020 TGT Psyllium Fiber 520mg Capsules take 1 tablet with meals - 2 - 3 times per day. (adjust the dose, if having loose stools decrease or hold dose). 60caps Aba alvarez M.D. 05/03/2020 - 06/19/2020 Immunizations Description No Information Available Vital Signs Date Vital Result Comment 06/20/2020 11:23am BP Systolic 128 mmHg BP Diastolic 76 mmHg Height 65 inches 5'5" Weight 272.00 lb BMI (Body Mass Index) 45.3 kg/m2 [place] Body Weight 125 lb Weight 123.379 kg BSA (Body Surface Area) 2.25 m2 04/18/2020 10:33am BP Systolic 118 mmHg BP Diastolic 70 mmHg Heart Rate 82 /min O2 % BldC Oximetry 97 % Body Temperature 96.7 F Height 65 inches 5'5" Weight 273.50 lb BMI (Body Mass Index) 45.5 kg/m2 [place] Body Weight 125 lb Weight 124.060 kg BSA (Body Surface Area) 2.26 m2 Results Test Acquired Date Facility Test Result H/L Range Note Laboratory test finding 07/26/2020 [facility] [address] [place] [address] [phone] Pathology Request For Service (SEE NOTE) 1 Stool Panel([facility]) 07/21/2020 [facility] [address] [place] [address] [phone] Culture Stool And Gram Stain <pending> Stool Lactoferrin-polys by Ica NEGATIVE Normal 2 Clostridium Difficle By PCR 07/21/2020 [facility] dical [facility] [address] [place] [address] [phone] Clostridium Difficile PCR TNP Normal Negati ve 3 Nap1 027 For Cdiff PCR TNP Normal Negative Ova Parasites Conventional 07/21/2020 [facility] [address] [place] [phone] O+P Exam Final report Normal . 4 Result 1 (SEE NOTE) Normal . 5 Laboratory test finding 07/21/2020 [facility] Lab [address] [place] [address] [phone] Gram Stain (SEE NOTE) Normal 6 CBC With Differential 06/27/2020 [facility] [address] [place] [address] [phone] White Blood Count 11.7 10 High 4.0-10.0 Red Blood Count 4.63 10 Normal 4.00-5.40 Hemoglobin 12.2 g/dL Normal 12.0-15.5 Hematocrit 38.0 % Normal 36.0-47.0 Mean Corpuscular Volume 82.1 fl Normal 80.0-96.0 Mean Corpuscular Hemoglobin 26.3 pg Low 27.0-33.0 Mean Corpuscular HGB Conc 32.1 g/dL Normal 32.0-36.5 Red Cell Distribution Width 13.9 % Normal 11.5-14.5 Platelet Count, Automated 407 10 Normal 150-450 Neutrophils % 68.7 % High 36.0-66.0 Lymph % 19.7 % Low 24.0-44.0 Lagrange % 8.3 % High 0.0-5.0 Eos % 2.6 % Normal 0.0-3.0 Baso % 0.4 % Normal 0.0-1.0 Immature Granulocyte % 0.3 % Normal 0-3.0 Nucleated Red Blood Cell % 0.0 % Normal 0-0 Neutrophils # 8.0 10 Normal 1.5-8.5 Lymph # 2.3 10 Normal 1.5-5.0 Lagrange # 1.0 10 High 0.0-0.8 Eos # 0.3 10 Normal 0.0-0.5 Baso # 0.1 10 Normal 0.0-0.2 Liver Profile 06/27/2020 [facility] Lab [address], [place] [id number] [phone] Ast/Sgot 25 U/L Normal 7-37 Alt/SGPT 42 U/L Normal 12-78 Alkaline Phosphatase 127 U/L High 45-117 Bilirubin,Total 0.3 mg/dL Normal 0.2-1.0 Bilirubin,Direct < 0.1 mg/dL Normal 0.0-0.2 Total Protein 7.3 GM/DL Normal 6.4-8.2 Albumin 3.4 GM/DL Normal 3.2-5.2 Albumin/Globulin Ratio 0.9 Low 1.2-2.2 Laboratory test finding 06/27/2020 [facility] [address] [place] [address] [phone] Tissue Transglutaminase IgA <2 U/mL Normal 0-3 7 Anti-Gliadin Antibody 06/27/2020 [facility] [address] [place] [address] [phone] Unitsiga For Gliadin Iga 5 units Normal 0-19 8 Unitsigg For Gliadin Igg 3 units Normal 0-19 9 BUN & Creatinine ([facility]) 06/27/2020 [facility] [address] [place] [address] [phone] Blood Urea Nitrogen 11 mg/dL Normal 7-18 Creatinine With GFR 06/27/2020 [facility] Lab [address] [place] [address] [phone] Creatinine For GFR 0.90 mg/dL Normal 0.55-1.30 Glomerular Filtration Rate > 60.0 Normal >60 1 0 Laboratory test finding 06/27/2020 [facility] Lab [address] [place] [address] [phone] H Pylori Qualitative Igg NEGATIVE Normal Negativ e 11 1 FINAL DIAGNOSIS A-Small bowel, biopsy: Small intestinal mucosa with normal villous architecture. No histologic evidence of celiac disease. B-Gastric biopsy: Gastric mucosa with minimal chronic inflammation and reactive changes. No H.pylori is identified. 07/30/2020 - 1320 CLINICAL DIAGNOSIS Persistent epigastric pain 07/29/2020 - 1499 GROSS DIAGNOSIS A - Received in formalin labeled "biopsy small bowel R/O celiac" and it consists of a fragment of tissue 0.1 x 0.1 x 0.1 cm. All in one. B - Received in formalin labeled "gastric biopsy R/O H. pylori" and it consists of fragments of tissue 0.2 x 0.1 x 0.1 cm. All in one. -OA 07/29/2020 - 1499 Signed VIV BEAR MD 07/30/2020 1321 2 3 Clostridium difficile testin g will only be performed on unformed diarrhea stools. Only one specimen will be tested daily. Testing stool specimens from patients who do not have CDI symptoms detects asymptomatic colonized patients (up to 30% of hospitalized patients are colonized with C. difficile). Patients with false positive results may be given unnecessary treatment, placed on contact isolation, and be at increased risk of vancomycin resistant enterococci. Please contact Infectious Disease Specialist with questions. 4 These results were obtained using wet preparation(s) and trichrome stained smear. This test does not include testing for Cryptosporidium parvum, Cyclospora, or Microsporidia. 5 No ova, cysts, or parasites seen. . One negative specimen does not rule out the possibility of a parasitic infection. Performed at: [facility] [employer] [id number] Accountant Bookkeeper: Deisy Hdez MD, Phone: [phone] FEW WBCS MANY GRAM POSITIVE RODS MANY GRAM NEGATIVE RODS 7 Negative 0 - 3 Weak Positive 4 - 10 Positive >10 . Tissue Transglutaminase (tTG) has been identified as the endomysial antigen. Studies have demonstr- ated that endomysial IgA antibodies have over 99% specificity for gluten sensitive enteropathy. Performed at: [address] [id number] Accountant Bookkeeper: Deisy Hdez MD, Phone: [phone] 8 Negative 0 - 19 Weak Positive 20 - 30 Moderate to Strong Positive >30 9 Negative 0 - 19 Weak Positive 20 - 30 Moderate to Strong Positive >30 10 Units are mL/min/1.73 m2 Chronic Kidney Disease Staging per NKF: Stage I & II GFR >=60 Normal to Mildly Decreased Stage III GFR 30-59 Moderately Decreased Stage IV GFR 15-29 Severely Decreased Stage V GFR <15 Very Little GFR Left ESRD GFR <15 on MARKET RISK SPECIALIST 11 SERUM SAMPLES OBTAINED TOO E MONCHO DURING INFECTION MAY NOT CONTAIN DETECTABLE ANTIBODIES. IF H. PYLORI INFECTION IS SUSPECTED WITH A "NEGATIVE" SERUM RESULT, A FOLLOW UP SPECIMEN IS RECOMMENDED IN 2-7 WEEKS. Procedures Date Code Description Status 07/26/2020 42939 Endoscopy Upper GI Biopsy Comple dee 04/18/2020 92825 Spirometry Completed 04/10/2020 75170 Binocular Microscopy Completed Medical Devices Description No Information Available Encounters Type Date Location Provider Dx Diagnosis Office Visit 06/20/2020 11:20a [facility] ENT/GI Practice Fadi Sprague M.D. 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 07/26/2020 K29.70 Gastritis, unspecified, without bleeding Aba Sprague M.D. 07/26/2020 R10.13 Epigastric pain Aba Weber ala, M.D. 06/20/2020 R10.13 Epigastric pain Aba Weber ala, M.D. 06/20/2020 R11.0 Nausea Aba Weber ala, M.D. 06/20/2020 R19.4 Change in bowel habit Aba Sprague M.D. 04/18/2020 R05 Cough ZINA Barakat 04/18/2020 R06.00 Dyspnea, unspecified ZINA Palafox 04/10/2020 H90.3 Sensorineural hearing loss, bila teral Cole Chang MD 04/10/2020 H65.493 Other chronic nonsuppurative celia tis media, bilateral Cole Chang MD 04/10/2020 M26.69 Other specified disorders of tem poromandibular joint Cole Chang MD Plan of Treatment 06/20/2020 - Aba Sprague M.D.* R10.13 Epigastric pain * R11.0 Nausea * R19.4 Change in bowel habit * * New Medication:* Dicyclomine HCL 20 mg * New Orders:* Endoscopy, Ordered: 06/20/20 * Comments:* Impression:-- Epigastric pain, persistent nausea , not improving with PPI course -- Needs further evaluation.-- Change in bowel habits with diarrhea and prior symptoms of constipation, in past -- DDx-- IBS- D vs rule out IBD. * Recommendations:* -- Educated patient about prior test results and all possible differential diagnoses. All questions answered. -- Will order celiac panel, liver panel and routnie labs along with ultrasound abdomen. -- Educated to cotinue the pepcid twice daily for now. -- As the bowel movements are irregular and improved from past diarrhea, could be irritable bowel syndrome. No red flag symptoms, Will evaluate further is persistent.. -- Will schedule for EGD for persistent epigastric pain and nausea ,not improving with PPI.. The procedure, indications, risks (bleeding, perforation, infection, hypotension, respiratory depression, allergy, need for endotracheal intubation, surgery, or even ), benefits, limitations (e.g., missing a lesion), and all other alternatives (including no intervention) were explained to the patient who understood and agreed for the procedure. -- Return to clinic 2 weeks after the above procedures. -- Follow up with PMD for routine m edical care and other age appropriate health maintenance. Functional Status Description No Information Available Mental Status Description No Information Available Referrals Refer to Reason for Referral Status Appt Date Aba Sprague M.D. [id number] [place] [address], [place] [phone] Cole Chang M.D. OTALGIA,GLORIA Scheduled 04/10/[address] [place] [address] [phone] Aba Sprague M.D. RIGHT UPPER QUAD PAIN & GERD, [place] 06/20/[address] [place] [address] [phone]
--- OUTSIDE RECORDS SUMMARY | 2020-10-18 09:49 | CCD | Continuity of Care Document ---
Author Author [facility] Organization [facility] Address [address] [place] [address] Phone Support Name Relationship Address Phone Jose Kramer PRS [address] [place] [address] Rachel Senn Bianka PRS [address] [place] [address] John Islas PRS [address] [place] [address] [place] [address] Pola Meadows [facility] [address] Pola Meadows PRS [address] [place] [address] Hiren Perez PRS [address] [place] [address] Nathalie Pace PRS [address] [place] [address] Verónica Sheriff PRS [address] [place] [address] Tad Menendez PRS [address] [place] [address] Amara Garcia PRS Unknown Unavailable Nicol Sebastian PRS [address] [place] [address] Darnell Herbert PRS [address] [place] [address] Kiersten Schulz PRS [address] [place] [address] [place] [address] Daljit Alex PRS [address] [place] [address] Niels Valdez PRS [address] [place] [address] Barrett Sparks PRS [address] [place] [address] Allergies, Adverse Reactions, Alerts Allergen Type Severity [...] 2020 6:00am Norgestimate-Ethinyl Estradiol (Ortho Tr i-Cyclen ()) 0.18/0.215/0.25 mg-35 mcg (28) tablet Discontinued 1 [...] Succinate (Unisom (Doxylamine)) 25 mg Table t Active 25 MG PO Three times a day August 09, 2020 6:34pm Sertraline Active 100 MG PO daily August [...] 01, 2020 completed SARS-CoV-2 (PCR) Interpretation Prasanth mb [address] Abd/pel w/ contrast April [...] August 09 0 7:35pm 9.9 10e3/uL 4.45-10.71 [facility], [address] [place] [address] 07461 White Blood Count August 14 0 9:31am 9.8 10e3/uL 4.45-10.71 [facility], [address] [place] [address] 01694 White Blood Count August 03 0 2:35pm 8.6 10e3/uL 4.45-10.71 [facility], [address] [place] [address] 12656 White Blood Count July 01, 2020 9:40p m 11.2 10e3/uL 4.45-10.71 [facility], [address] [place] [address] White Blood Count May 18 6:17am 9.3 10e3/uL 4.45-10.71 [facility], [address] [place] [address] White Blood Count March 25, 2020 8:11am 10.8 10e3/uL 4.45-10.71 [facility], [address] [place] [address] 15992 White Blood Count March 11, 2020 12:14pm 11.3 10e3/uL 4.45-10.71 [facility], [address] [place] [address] White Blood Count March 02, 2020 11:00am 10.3 10e3/uL 4.45-10.71 [facility], [address] [place] [address] 20646 White Blood Count February 26, 2020 10:02am 9.8 10e3/uL 4.45-10.71 [facility], [address] [place] [address] White Blood Count February 20, 2020 8:35am 8.8 10e3/uL 4.45-10.71 [facility], [address] [place] [address] Red Blood Count August 09, 2020 7:35pm 4.49 10e6/uL 4.20-5.40 [facility], [address] [place] [address] Red Blood Count August 14, 2020 9:31am 4.57 10e6/uL 4.20-5.40 [facility], [address] [place] [address] Red Blood Count August 03, 2020 2:35pm 4.47 10e6/uL 4.20-5.40 [facility], [address] [place] [address] Red Blood Count July 01, 2020 9:40pm 4.51 10e6/uL 4.20-5.40 [facility], [address] [place] [address] Red Blood Count May 18, 2020 6:17a m 4.10 10e6/uL 4.20-5.40 [facility], [address] [place] [address] Red Blood Count March 25, 2020 8:11am 4.25 10e6/uL 4.20-5.40 [facility], [address] [place] [address] Red Blood Count March 11, 2020 12:14pm 4.58 10e6/uL 4.20-5.40 [facility], [address] [place] [address] Red Blood Count March 02, 2020 11:00am 4.52 10e6/uL 4.20-5.40 [facility], [address] [place] [address] Red Blood Count February 26, 2020 10:02am 4.84 10e6/uL 4.20-5.40 [facility], [address] [place] [address] Red Blood Count February 20, 2020 8:35am 5.02 10e6/uL 4.20-5.40 [facility], [address] [place] [address] Hemoglobin August 09, 2020 7:35pm 11.4 g/dL 10.7-15.4 [facility], [address] [place] [address] Hemoglobin August 14, 2020 9:31am 11.4 g/dL 10.7-15.4 [facility], [address] [place] [address] Hemoglobin August 03, 2020 2:35pm 11.5 g/dL 10.7-15.4 [facility], [address] [place] [address] Hemoglobin July 01, 2020 9:40pm 11.8 g/dL 10.7-15.4 [facility], [address] [place] [address] Hemoglobin May 18, 2020 6:17am 10.9 g/dL 10.7-15.4 [facility], [address] [place] [address] Hemoglobin March 25, 2020 8:11am 11.5 g/dL 10.7-15.4 [facility], [address] [place] [address] Hemoglobin March 11, 2020 12:14pm 12.4 g/dL 10.7-15.4 [facility], [address] [place] [address] Hemoglobin March 02, 2020 11:00am 12.1 g/dL 10.7-15.4 [facility], [address] [place] [address] Hemoglobin February 26, 2020 10:02am 13.0 g/dL 10.7-15.4 [facility], [address] [place] [address] Hemoglobin February 20, 2020 8:35am 13.4 g/dL 10.7-15.4 [facility], [address] [place] [address] Hematocrit August 09, 2020 7:35pm 36.1 % 37-47 [facility], [address] [place] [address] 65469 Hematocrit August 14, 2020 9:31am 36.3 % 37-47 [facility], [address] [place] [address] Hematocrit August 03, 2020 2:35pm 36.1 % 37-47 [facility], [address] [place] [address] 78997 Hematocrit July 01, 2020 9:40pm 36.6 % 37-47 [facility], [address] [place] [address] Hematocrit May 18, 2020 6:17am 34.1 % 37-47 [facility], [address] [place] [address] 44539 Hematocrit March 25, 2020 8:11am 34.7 % 37-47 [facility], [address] [place] [address] 62876 Hematocrit March 11, 2020 12:14pm 37.2 % 37-47 [facility], [address] [place] [address] 19164 Hematocrit March 02, 2020 11:00am 36.9 % 37-47 [facility], [address] [place] [address] 27704 Hematocrit February 26, 2020 10:02am 39.4 % 37-47 [facility], [address] [place] [address] 29280 Hematocrit February 20, 2020 8:35am 41.0 % 37-47 [facility], [address] [place] [address] 07367 Mean Corpuscular Volume July h2019 7:35pm 80.[address] [facility], [address] [place] [address] 41278 Mean Corpuscular Volume July d2019 9:31am 79.[address] [facility], [address] [place] [address] 46282 Mean Corpuscular Volume July h2019 2:35pm 80.[address] [facility], [address] [place] [address] 70996 Mean Corpuscular Volume June 9:40pm 81.[address] [facility], [address] [place] [address] 39545 Mean Corpuscular Volume May 182019 6:17am 83.[address] [facility], [address] [place] [address] 41705 Mean Corpuscular Volume March 25, 2020 8:11am 81.[address] [facility], [address] [place] [address] 37228 Mean Corpuscular Volume March 11, 020 12:14pm 81.[address] [facility], [address] [place] [address] 55284 Mean Corpuscular Volume March 02, 2 020 11:00am 81.[address] [facility], [address] [place] [address] 48042 Mean Corpuscular Volume February 25 10:02am 81.[address] [facility], [address] [place] [address] 42401 Mean Corpuscular Volume February 19, 020 8:35am 81.[address] [facility], [address] [place] [address] 07772 Mean Corpuscular Hemoglobin August 09, 2020 7:35pm 25.4 pg 27-31 [facility], [address] [place] [address] 13841 Mean Corpuscular Hemoglobin August 14, 2020 9:31am 24.9 pg 27-31 [facility], [address] [place] [address] 15710 Mean Corpuscular Hemoglobin August 03, 2020 2:35pm 25.7 pg 27-31 [facility], [address] [place] [address] 67570 Mean Corpuscular Hemoglobin July 01, 2020 9:40pm 26.2 pg 27-31 [facility], [address] [place] [address] 34726 Mean Corpuscular Hemoglobin Septemb2019 6:17am 26.6 pg 27-31 [facility], [address] [place] [address] 88528 Mean Corpuscular Hemoglobin March 252019 8:11am 27.1 pg 27-31 [facility], [address] [place] [address] 02954 Mean Corpuscular Hemoglobin February h2019 12:14pm 27.1 pg 27-31 [facility], [address] [place] [address] 88835 Mean Corpuscular Hemoglobin February h2019 11:00am 26.8 pg 27-31 [facility], [address] [place] [address] 90692 Mean Corpuscular Hemoglobin February 10:02am 26.9 pg 27-31 [facility], [address] [place] [address] 99887 Mean Corpuscular Hemoglobin January 8:35am 26.7 pg 27-31 [facility], [address] [place] [address] 96037 Mean Corpuscular Hemoglobin Concent August 09, 2020 7:35pm 31.6 g/dl [facility], [address] [place] [address] 52970 Mean Corpuscular Hemoglobin Concent August 14, 2020 9:31am 31.4 g/dl [facility], [address] [place] [address] 98897 Mean Corpuscular Hemoglobin Concent August 03, 2020 2:35pm 31.9 g/dl [facility], [address] [place] [address] 35512 Mean Corpuscular Hemoglobin Concent July 01, 2020 9:40pm 32.2 g/dl [facility], [address] [place] [address] 14057 Mean Corpuscular Hemoglobin Concent May 18, 2020 6:17am 32.0 g/dl [facility], [address] [place] [address] 15154 Mean Corpuscular Hemoglobin Concent March 25, 2020 8:11am 33.1 g/dl [address] [facility], [address] [place] [address] 38924 Mean Corpuscular Hemoglobin Concent March 11, 2020 12:14pm 33.3 g/dl [address] [facility], [address] [place] [address] 62761 Mean Corpuscular Hemoglobin Concent March 02, 2020 11:00am 32.8 g/dl [address] [place] [address] [facility], [address] [place] [address] 08695 Mean Corpuscular Hemoglobin Concent February 26, 2020 10:02am 33.0 g/dl [address] [place] [address] [facility], [address] [place] [address] 02284 Mean Corpuscular Hemoglobin Concent February 20, 2020 8:35am 32.7 g/dl [address] [place] [address] [facility], [address] [place] [address] 50235 Red Cell Distribution Width August 09, 2020 7:35pm 14 % 11-15 [facility], [address] [place] [address] 75307 Red Cell Distribution Width August 14, 2020 9:31am 15 % 11-15 [facility], [address] [place] [address] 69610 Red Cell Distribution Width August 03, 2020 2:35pm 14 % 11-15 [facility], [address] [place] [address] 41024 Red Cell Distribution Width July 01, 2020 9:40pm 14 % 11-15 [facility], [address] [place] [address] 68496 Red Cell Distribution Width 2019 6:17am 14 % 11-15 [facility], [address] [place] [address] 14031 Red Cell Distribution Width March 252019 8:11am 15 % 11-15 [facility], [address] [place] [address] 22341 Red Cell Distribution Width February 12:14pm 15 % 11-15 [facility], [address] [place] [address] 98828 Red Cell Distribution Width February 11:00am 14 % 11-15 [facility], [address] [place] [address] 70618 Red Cell Distribution Width February 10:02am 14 % 11-15 [facility], [address] [place] [address] Red Cell Distribution Width January 8:35am 15 % 11-15 [facility], [address] [place] [address] Platelet Count August 09, 2020 7:35pm 423 10e3/ul 130-472 [facility], [address] [place] [address] Platelet Count August 14, 2020 9:31am 429 10e3/ul 130-472 [facility], [address] [place] [address] Platelet Count August 03, 2020 2:35pm 372 10e3/ul 130-472 [facility], [address] [place] [address] 52966 Platelet Count July 01, 2020 9:40pm 392 10e3/ul 130-472 [facility], [address] [place] [address] 80845 Platelet Count May 18, 2020 6:17am 332 10e3/ul 130-472 [facility], [address] [place] [address] 04697 Platelet Count March 25, 2020 8:11am 395 10e3/ul 130-472 [facility], [address] [place] [address] 32219 Platelet Count March 11, 2020 12:14pm 460 10e3/ul 130-472 [facility], [address] [place] [address] 27236 Platelet Count March 02, 2020 11:00am 410 10e3/ul 130-472 [facility], [address] [place] [address] 30065 Platelet Count February 26, 2020 10:02am 436 10e3/ul 130-472 [facility], [address] [place] [address] Platelet Count February 20, 2020 8:35am 479 10e3/ul 130-472 [facility], [address] [place] [address] Mean Platelet Volume August 09, 2020 7:35pm 8.9 fl 9.1-13.1 [facility], [address] [place] [address] Mean Platelet Volume August 14, 2020 9:31am 8.9 fl 9.1-13.1 [facility], [address] [place] [address] Mean Platelet Volume August 03, 2020 2:35pm 9.0 fl 9.1-13.1 [facility], [address] [place] [address] Mean Platelet Volume November 9th, 2 020 9:40pm 8.6 fl 9.1-13.1 [facility], [address] [place] [address] 93772 Mean Platelet Volume May 18, 2020 6:17am 8.6 fl 9.1-13.1 [facility], [address] [place] [address] 50745 Mean Platelet Volume March 25 0 8:11am 8.3 fl 9.1-13.1 [facility], [address] [place] [address] 52782 Mean Platelet Volume March 11, 2020 12:14pm 8.4 fl 9.1-13.1 [facility], [address] [place] [address] 14494 Mean Platelet Volume March 02, 2020 11:00am 8.6 fl 9.1-13.1 [facility], [address] [place] [address] 53082 Mean Platelet Volume February 26, 2020 10:02a m 8.7 fl 9.1-13.1 [facility], [address] [place] [address] 25989 Mean Platelet Volume February 20, 2020 8:35a m 8.7 fl 9.1-13.1 [facility], [address] [place] [address] 24738 Neutrophils (%) (Auto) July 7:35pm 71.3 % [address] [facility], [address] [place] [address] 13564 Neutrophils (%) (Auto) July 9:31am 63.7 % [address] [place] [address] [facility], [address] [place] [address] 76080 Neutrophils (%) (Auto) July 2:35pm 68.8 % [address] [facility], [address] [place] [address] 91874 Neutrophils (%) (Auto) July 01, 2020 9:40pm 66.3 % [address] [facility], [address] [place] [address] 59366 Neutrophils (%) (Auto) April 6:17am 66.1 % [address] [facility], [address] [place] [address] 27375 Neutrophils (%) (Auto) March 25, 020 8:11am 58.4 % [address] [place] [address] [facility], [address] [place] [address] 59660 Neutrophils (%) (Auto) March 11 12:14pm 72.2 % [address] [place] [address] [facility], [address] [place] [address] 85085 Neutrophils (%) (Auto) March 02 11:00am 65.4 % [address] [place] [address] [facility], [address] [place] [address] 47151 Neutrophils (%) (Auto) February 25 0 10:02am 62.6 % [address] [place] [address] [facility], [address] [place] [address] 55468 Neutrophils (%) (Auto) February 19 8:35am 62.4 % [address] [place] [address] [facility], [address] [place] [address] 30921 Absolute Neutrophil August 09, 2 020 7:35pm 7.0 # 1.7-7.6 [facility], [address] [place] [address] 21399 Absolute Neutrophil August 14, 020 9:31am 6.2 # 1.7-7.6 [facility], [address] [place] [address] 11642 Absolute Neutrophil August 03, 2 020 2:35pm 5.9 # 1.7-7.6 [facility], [address] [place] [address] 81648 Absolute Neutrophil July 01 9:40pm 7.5 # 1.7-7.6 [facility], [address] [place] [address] 99777 Absolute Neutrophil May 18, 2020 6:17am 6.1 # 1.7-7.6 [facility], [address] [place] [address] 84244 Absolute Neutrophil March 25, 2020 8:11a m 6.3 # 1.7-7.6 [facility], [address] [place] [address] 65022 Absolute Neutrophil March 11, 2020 12:14p m 8.1 # 1.7-7.6 [facility], [address] [place] [address] 23418 Absolute Neutrophil March 02, 2020 11:00a m 6.7 # 1.7-7.6 [facility], [address] [place] [address] 68096 Absolute Neutrophil February 26, 2020 10:02am 6.1 # 1.7-7.6 [facility], [address] [place] [address] 31026 Absolute Neutrophil February 20, 2020 8:35am 5.5 # 1.7-7.6 [facility], [address] [place] [address] 72484 Lymphocytes (%) (Auto) July 7:35pm 19.4 % [address] [facility], [address] [place] [address] 61540 Lymphocytes (%) (Auto) July 9:31am 25.9 % [address] [facility], [address] [place] [address] 27355 Lymphocytes (%) (Auto) July 2:35pm 20.2 % [address] [facility], [address] [place] [address] 07642 Lymphocytes (%) (Auto) July 01, 2020 9:40pm 21.4 % [address] [facility], [address] [place] [address] 20108 Lymphocytes (%) (Auto) April 6:17am 22.8 % [address] [facility], [address] [place] [address] 05706 Lymphocytes (%) (Auto) March 25 020 8:11am 30.4 % [address] [facility], [address] [place] [address] 39973 Lymphocytes (%) (Auto) March 11 12:14pm 19.0 % [address] [facility], [address] [place] [address] 93026 Lymphocytes (%) (Auto) March 02 11:00am 23.6 % [address] [facility], [address] [place] [address] 73835 Lymphocytes (%) (Auto) February 25 0 10:02am 25.4 % [address] [facility], [address] [place] [address] 78042 Lymphocytes (%) (Auto) February 19 20 8:35am 26.5 % [address] [facility], [address] [place] [address] 68958 Lymphocytes # (Auto) August 09, 2020 7:35pm 1.9 # 0.6-4.6 [facility], [address] [place] [address] 94083 Lymphocytes # (Auto) August 14, 2020 9:31am 2.5 # 0.6-4.6 [facility], [address] [place] [address] 44258 Lymphocytes # (Auto) August 03, 2020 2:35pm 1.7 # 0.6-4.6 [facility], [address] [place] [address] 43519 Lymphocytes # (Auto) July 01, 020 9:40pm 2.4 # 0.6-4.6 [facility], [address] [place] [address] 09117 Lymphocytes # (Auto) May 18, 2020 6:17am 2.1 # 0.6-4.6 [facility], [address] [place] [address] 93985 Lymphocytes # (Auto) March 25 0 8:11am 3.3 # 0.6-4.6 [facility], [address] [place] [address] 81517 Lymphocytes # (Auto) March 11, 2020 12:14pm 2.1 # 0.6-4.6 [facility], [address] [place] [address] 49015 Lymphocytes # (Auto) March 02, 2020 11:00am 2.4 # 0.6-4.6 [facility], [address] [place] [address] 28577 Lymphocytes # (Auto) February 26, 2020 10:02a m 2.5 # 0.6-4.6 [facility], [address] [place] [address] 08761 Lymphocytes # (Auto) February 20, 2020 8:35a m 2.3 # 0.6-4.6 [facility], [address] [place] [address] 32811 Monocytes (%) (Auto) August 09, 2020 7:35pm 7.0 % 4-12 [facility], [address] [place] [address] 37812 Monocytes (%) (Auto) August 14, 2020 9:31am 6.9 % 4-12 [facility], [address] [place] [address] 40046 Monocytes (%) (Auto) August 03, 2020 2:35pm 8.3 % 4-12 [facility], [address] [place] [address] 03510 Monocytes (%) (Auto) July 01, 020 9:40pm 8.9 % 4-12 [facility], [address] [place] [address] 04530 Monocytes (%) (Auto) May 18, 2020 6:17am 8.7 % 4-12 [facility], [address] [place] [address] 91161 Monocytes (%) (Auto) March 25 0 8:11am 7.7 % 412 [facility], [address] [place] [address] 12962 Monocytes (%) (Auto) March 11, 2020 12:14pm 5.5 % 12-02 [facility], [address] [place] [address] [id number] Monocytes (%) (Auto) March 02, 2020 11:00am 7.8 % 12-02 [facility], [address] [place] [address] [id number] Monocytes (%) (Auto) February 26, 2020 10:02a m 8.2 % 12-02 [facility], [address] [place] [address] [id number] Monocytes (%) (Auto) February 20, 2020 8:35a m 8.0 % 12-02 [facility], [address] [place] [address] [id number] Monocytes # August 09, 2020 7:35pm 0.7 # 0.2-1.2 [facility], [address] [place] [address] [id number] Monocytes # August 14, 2020 9:31am 0.7 # 0.2-1.2 [facility], [address] [place] [address] [id number] Monocytes # August 03, 2020 2:35pm 0.7 # 0.2-1.2 [facility], [address] [place] [address] [id number] Monocytes # July 01, 2020 9:40pm 1.0 # 0.2-1.2 [facility], [address] [place] [address] [id number] Monocytes # May 18, 2020 6:17am 0.8 # 0.2-1.2 [facility], [address] [place] [address] [id number] Monocytes # March 25, 2020 8:11am 0.8 # 0.2-1.2 [facility], [address] [place] [address] [id number] Monocytes # March 11, 2020 12:14pm 0.6 # 0.2-1.2 [facility], [address] [place] [address] [id number] Monocytes # March 02, 2020 11:00am 0.8 # 0.2-1.2 [facility], [address] [place] [address] [id number] Monocytes # February 26, 2020 10:02am 0.8 # 0.2-1.2 [facility], [address] [place] [address] [phone] Monocytes # February 20, 2020 8:35am 0.7 # 0.2-1.2 [facility], [address] [place] [address] [id number] Eosinophils (%) (Auto) July 7:35pm 1.8 % 0-7 [facility], [address] [place] [address] [id number] Eosinophils (%) (Auto) July 9:31am 3.0 % 0-7 [facility], [address] [place] [address] [id number] Eosinophils (%) (Auto) July 2:35pm 2.2 % 0-7 [facility], [address] [place] [address] [phone] Eosinophils (%) (Auto) July 01, 2020 9:40pm 2.7 % 0-7 [facility], [address] [place] [address] [phone] Eosinophils (%) (Auto) April 6:17am 1.9 % 0-7 [facility], [address] [place] [address] [id number] Eosinophils (%) (Auto) March 25 020 8:11am 2.7 % 0-7 [facility], [address] [place] [address] [phone] Eosinophils (%) (Auto) March 11 12:14pm 2.5 % 0-7 [facility], [address] [place] [address] [id number] Eosinophils (%) (Auto) March 02 11:00am 2.4 % 0-7 [facility], [address] [place] [address] 91649 Eosinophils (%) (Auto) February 25 0 10:02am 3.1 % 0-7 [facility], [address] [place] [address] 56919 Eosinophils (%) (Auto) February 19 20 8:35am 2.6 % 0-7 [facility], [address] [place] [address] 79388 Absolute Eosinophils (CBC) August 09, 2020 7:35pm 0.2 # 0.0-0.5 [facility], [address] [place] [address] 59853 Absolute Eosinophils (CBC) August 14, 2020 9:31am 0.3 # 0.0-0.5 [facility], [address] [place] [address] 83834 Absolute Eosinophils (CBC) August 03, 2020 2:35pm 0.2 # 0.0-0.5 [facility], [address] [place] [address] 57021 Absolute Eosinophils (CBC) July 01, 2020 9:40pm 0.3 # 0.0-0.5 [facility], [address] [place] [address] Absolute Eosinophils (CBC) May 18, 2020 6:17am 0.2 # 0.0-0.5 [facility], [address] [place] [address] Absolute Eosinophils (CBC) March 8:11am 0.3 # 0.0-0.5 [facility], [address] [place] [address] Absolute Eosinophils (CBC) February 12:14pm 0.3 # 0.0-0.5 [facility], [address] [place] [address] Absolute Eosinophils (CBC) February 11:00am 0.3 # 0.0-0.5 [facility], [address] [place] [address] Absolute Eosinophils (CBC) February 26, 2020 10:02am 0.3 # 0.0-0.5 [facility], [address] [place] [address] Absolute Eosinophils (CBC) January 8:35am 0.2 # 0.0-0.5 [facility], [address] [place] [address] Basophils (%) (Auto) August 09, 2020 7:35pm 0.3 % 0.4-1.3 [facility], [address] [place] [address] 83503 Basophils (%) (Auto) August 14, 2020 9:31am 0.3 % 0.4-1.3 [facility], [address] [place] [address] 81392 Basophils (%) (Auto) August 03, 2020 2:35pm 0.3 % 0.4-1.3 [facility], [address] [place] [address] 87339 Basophils (%) (Auto) July 01 020 9:40pm 0.4 % 0.4-1.3 [facility], [address] [place] [address] 54940 Basophils (%) (Auto) May 18, 2020 6:17am 0.3 % 0.4-1.3 [facility], [address] [place] [address] 07920 Basophils (%) (Auto) March 25 8:11am 0.5 % 0.4-1.3 [facility], [address] [place] [address] 96321 Basophils (%) (Auto) March 11, 2020 12:14pm 0.4 % 0.4-1.3 [facility], [address] [place] [address] 04958 Basophils (%) (Auto) March 02, 2020 11:00am 0.5 % 0.4-1.3 [facility], [address] [place] [address] 46769 Basophils (%) (Auto) February 26, 2020 10:02a m 0.4 % 0.4-1.3 [facility], [address] [place] [address] 14924 Basophils (%) (Auto) February 20, 2020 8:35a m 0.3 % 0.4-1.3 [facility], [address] [place] [address] 08064 Absolute Basophils (CBC) August 092019 7:35pm 0.0 # 0.0-0.2 [facility], [address] [place] [address] 97588 Absolute Basophils (CBC) August 142019 9:31am 0.0 # 0.0-0.2 [facility], [address] [place] [address] 14435 Absolute Basophils (CBC) August 032019 2:35pm 0.0 # 0.0-0.2 [facility], [address] [place] [address] 05222 Absolute Basophils (CBC) June 9:40pm 0.0 # 0.0-0.2 [facility], [address] [place] [address] 62603 Absolute Basophils (CBC) April 242019 6:17am 0.0 # 0.0-0.2 [facility], [address] [place] [address] 26643 Absolute Basophils (CBC) March 25, 2020 8:11am 0.1 # 0.0-0.2 [facility], [address] [place] [address] 25961 Absolute Basophils (CBC) March 11, 2020 12:14pm 0.0 # 0.0-0.2 [facility], [address] [place] [address] 06928 Absolute Basophils (CBC) March 02, 2020 11:00am 0.1 # 0.0-0.2 [facility], [address] [place] [address] 16047 Absolute Basophils (CBC) February 25 10:02am 0.0 # 0.0-0.2 [facility], [address] [place] [address] 45766 Absolute Basophils (CBC) February 20, 2020 8:35am 0.0 # 0.0-0.2 [facility], [address] [place] [address] 81357 Immature Granulocyte % (Auto) [facility] er 2019 7:35pm 0.2 % 0-2 [facility], [address] [place] [address] 84021 Immature Granulocyte % (Auto) [facility] er 2019 9:31am 0.2 % 0-2 [facility], [address] [place] [address] 50179 Immature Granulocyte % (Auto) [facility] er 2019 2:35pm 0.2 % 0-2 [facility], [address] [place] [address] 16893 Immature Granulocyte % (Auto) [facility] er 2019 9:40pm 0.3 % 0-2 [facility], [address] [place] [address] 66329 Immature Granulocyte % (Auto) Sept2019 6:17am 0.2 % 0-2 [facility], [address] [place] [address] 87059 Immature Granulocyte % (Auto) March 25, 2020 8:11am 0.3 % 0-2 [facility], [address] [place] [address] 48781 Immature Granulocyte % (Auto) February 212019 12:14pm 0.4 % 0-2 [facility], [address] [place] [address] 49624 Immature Granulocyte % (Auto) February 202019 11:00am 0.3 % 0-2 [facility], [address] [place] [address] 75668 Immature Granulocyte % (Auto) February 252019 10:02am 0.3 % 0-2 [facility], [address] [place] [address] 09349 Immature Granulocyte % (Auto) January 232019 8:35am 0.2 % 0-2 [facility], [address] [place] [address] Absolute Immature Granulocyte (auto August 09, 2020 7:35pm 0.0 # 0-0.1 [facility], [address] [place], [place] [id number] Absolute Immature Granulocyte (auto August 14, 2020 9:31am 0.0 # 0-0.1 [facility], [address] [place] [address] Absolute Immature Granulocyte (auto August 03, 2020 2:35pm 0.0 # 0-0.1 [facility], [address] [place] [address] Absolute Immature Granulocyte (auto July 01, 2020 9:40pm 0.0 # 0-0.1 [facility], [address] [place] [address] Absolute Immature Granulocyte (auto May 18, 2020 6:17am 0.0 # 0-0.1 [facility], [address] [place] [address] Absolute Immature Granulocyte (auto March 25, 2020 8:11am 0.0 # 0-0.1 [facility], [address] [place] [address] Absolute Immature Granulocyte (auto March 11, 2020 12:14pm 0.0 # 0-0.1 [facility], [address] [place] [address] Absolute Immature Granulocyte (auto March 02, 2020 11:00am 0.0 # 0-0.1 [facility], [address] [place] [address] Absolute Immature Granulocyte (auto February 26, 2020 10:02am 0.0 # 0-0.1 [facility], [address] [place], [place] [id number] Absolute Immature Granulocyte (auto February 20, 2020 8:35am 0.0 # 0-0.1 [facility], [address] [place] [address] 03397 Add Manual Differential July h2019 7:35pm No [facility], [address] [place] [address] 05079 Add Manual Differential July d2019 9:31am No [facility], [address] [place] [address] 71148 Add Manual Differential July h2019 2:35pm No [facility], [address] [place] [address] 10716 Add Manual Differential June 9:40pm No [facility], [address] [place] [address] 38627 Add Manual Differential May 182019 6:17am No [facility], [address] [place] [address] 16486 Add Manual Differential March 25, 2020 8:11am No [facility], [address] [place] [address] 58299 Add Manual Differential March 11 12:14pm No [facility], [address] [place] [address] 64091 Add Manual Differential March 02 11:00am No [facility], [address] [place] [address] 10514 Add Manual Differential February 25 10:02am No [facility], [address] [place] [address] 80070 Add Manual Differential February 19 8:35am No [facility], [address] [place] [address] 92471 Differential Total Cells Counted Sep 2019 7:20pm 100 [facility], [address] [place] [address] 74272 Neutrophils (Manual) May 17, 2020 7:20pm 77 % 41-77 [facility], [address] [place] [address] 41172 Band Neutrophils May 17 0 7:20pm 3 % 0-5 [facility], [address] [place] [address] 27192 Lymphocytes (Manual) May 17, 2020 7:20pm 17 % 14-46 [facility], [address] [place] [address] 03051 Monocytes (Manual) May 17 7:20pm 3 % 4-12 [facility], [address] [place] [address] 36654 Platelet Estimate May 17 7:20pm Appears normal NORMAL [facility], [address] [place] [address] 78230 RBC Morphology 2 May 17 0 7:20pm Appears normal NORMAL [facility], [address] [place] [address] 24962 Urine Color May 18, 2020 12:15am Yellow [facility], [address] [place] [address] 38213 Urine Color February 20, 2020 8:40am Yellow [facility], [address] [place] [address] 06948 Urine Color August 09, 2020 8:06pm Yellow [facility], [address] [place] [address] 65763 Urine Color August 03, 2020 2:50pm Yellow [facility], [address] [place] [address] 41255 Urine Color July 01, 2020 9:30pm Yellow [facility], [address] [place] [address] 51557 Urine Color March 25, 2020 8:05am Yellow [facility], [address] [place] [address] 90250 Urine Color March 11, 2020 11:00am Yellow [facility], [address] [place] [address] 32558 Urine Color March 05, 2020 2:29pm Yellow [facility], [address] [place] [address] 94935 Urine Color March 02, 2020 10:48am Yellow [facility], [address] [place] [address] 76069 Urine Appearance August 09, 2020 8:06p m Clear CLEAR [facility], [address] [place] [address] 71251 Urine Appearance August 03, 2020 2:50p m Clear CLEAR [facility], [address] [place] [address] 22916 Urine Appearance July 01, 2020 9:30pm Cloudy CLEAR [facility], [address] [place] [address] 13322 Urine Appearance May 18 12:15am Clear [facility]AR [facility], [address] [place] [address] 71224 Urine Appearance March 25, 2020 8:05am Cloudy CLEAR [facility], [address] [place] [address] 17084 Urine Appearance March 11, 2020 11:00am Cloudy CLEAR [facility], [address] [place] [address] 98899 Urine Appearance March 05, 2020 2:29pm Cloudy CLEAR [facility], [address] [place] [address] 47142 Urine Appearance March 02, 2020 10:48am Cloudy CLEAR [facility], [address] [place] [address] 94414 Urine Appearance February 20, 2020 8:40am Turbid CLEAR [facility], [address] [place] [address] 43890 Urine pH August 09, 2020 8:06pm 6.5 [facility], [address] [place] [address] 24717 Urine pH August 03, 2020 2:50pm 7.5 [facility], [address] [place] [address] 97421 Urine pH July 01, 2020 9:30pm 6.0 [facility], [address] [place] [address] Urine pH May 18, 2020 12:15am 6.0 [facility], [address] [place] [address] 14398 Urine pH March 25, 2020 8:05am 5.5 [facility], [address] [place] [address] Urine pH March 11, 2020 11:00am 6.5 [facility], [address] [place] [address] 35975 Urine pH March 05, 2020 2:29pm 6.0 [facility], [address] [place] [address] Urine pH March 02, 2020 10:48am 5.5 [facility], [address] [place] [address] Urine pH February 20, 2020 8:40am 5.5 [facility], [address] [place] [address] 49502 Urine Specific [place] July 8:06pm 1.022 [facility], [address] [place] [address] Urine Specific [place] July 2:50pm 1.020 [facility], [address] [place] [address] 74303 Urine Specific [place] July 01, 2020 9:30pm 1.026 [facility], [address] [place] [address] Urine Specific [place] April 12:15am >1.045 [facility], [address] [place] [address] Urine Specific [place] March 25 8:05am 1.025 [facility], [address] [place] [address] Urine Specific [place] March 11 11:00am 1.025 [facility], [address] [place] [address] Urine Specific [place] March 05 2:29pm 1.021 [facility], [address] [place] [address] Urine Specific [place] March 02 10:48am 1.025 [facility], [address] [place] [address] Urine Specific [place] February 19 8:40am 1.023 [facility], [address] [place] [address] Urine Leukocyte Esterase April 242019 12:15am Negative NEGATIVE [facility], [address] [place] [address] Urine Leukocyte Esterase February 20, 2020 8:40am Moderate NEGATIVE [facility], [address] [place] [address] Urine Leukocyte Esterase August 092019 8:06pm Small NEGATIVE A Culture has been added to this specimen per established criteria [facility], [address] [place] [address] 36857 Urine Leukocyte Esterase August 032019 2:50pm Small NEGATIVE A Culture has been added to this specimen per established criteria [facility], [address] [place] [address] Urine Leukocyte Esterase June 9:30pm Small NEGATIVE A Culture has been added to this specimen per established criteria [facility], [address] [place] [address] Urine Leukocyte Esterase March 25, 2020 8:05am Trace NEGATIVE A Culture has been added to this specimen per established criteria [facility], [address] [place] [address] Urine Leukocyte Esterase March 11, 2020 11:00am Trace NEGATIVE A Culture has been added to this specimen per established criteria [facility], [address] [place] [address] Urine Leukocyte Esterase March 05, 2020 2:29pm Trace NEGATIVE A Culture has been added to this specimen per established criteria [facility], [address] [place] [address] Urine Leukocyte Esterase March 02, 2020 10:48am Trace NEGATIVE A Culture has been added to this specimen per established criteria [facility], [address] [place] [address] Urine Nitrite May 18, 2020 12:15am Negative NEGATIVE [facility], [address] [place] [address] Urine Nitrite February 20, 2020 8:40am Negative NEGATIVE [facility], [address] [place] [address] Urine Nitrate August 09, 2020 8:06pm Negative NEGATIVE [facility], [address] [place] [address] 95879 Urine Nitrate August 03, 2020 2:50pm Negative [facility]GAT[facility], [address] [place], [place] [id number] Urine Nitrate July 01, 2020 9:30pm Negative NEGATIVE [facility], [address] [place] [address] Urine Nitrate March 25, 2020 8:05am Negative NEGATIVE [facility], [address] [place] [address] Urine Nitrate March 11, 2020 11:00am Negative NEGATIVE [facility], [address] [place] [address] Urine Nitrate March 05, 2020 2:29pm Negative NEGATIVE [facility], [address] [place] [address] Urine Nitrate March 02, 2020 10:48am Negative NEGATIVE [facility], [address] [place] [address] 04119 Urine Protein August 09, 2020 8:06pm Negative NEGATIVE [facility], [address] [place] [address] 58980 Urine Protein August 03, 2020 2:50pm Negative NEGATIVE [facility], [address] [place] [address] 23032 Urine Protein July 01, 2020 9:30pm Trace NEGATIVE [facility], [address] [place] [address] 62271 Urine Protein May 18, 2020 12:15am Negative NEGATIVE [facility], [address] [place] [address] 99028 Urine Protein March 25, 2020 8:05am Negative NEGATIVE [facility], [address] [place] [address] 31075 Urine Protein March 11, 2020 11:00am Trace NEGATIVE [facility], [address] [place] [address] 80451 Urine Protein March 05, 2020 2:29pm Trace NEGATIVE [facility], [address] [place] [address] 33409 Urine Protein March 02, 2020 10:48am Negative NEGATIVE [facility], [address] [place] [address] 61660 Urine Protein February 20, 2020 8:40am 30 mg/dl NEGATIVE [facility], [address] [place] [address] 89950 Urine Glucose August 09, 2020 8:06pm Negative NEGATIVE [facility], [address] [place] [address] 81443 Urine Glucose August 03, 2020 2:50pm Negative NEGATIVE [facility], [address] [place] [address] 50043 Urine Glucose July 01, 2020 9:30pm Negative NEGATIVE [facility], [address] [place] [address] 10984 Urine Glucose May 18, 2020 12:15am Negative NEGATIVE [facility], [address] [place] [address] 91020 Urine Glucose March 25, 2020 8:05am Negative NEGATIVE [facility], [address] [place] [address] 23691 Urine Glucose March 11, 2020 11:00am Negative NEGATIVE [facility], [address] [place] [address] 73692 Urine Glucose March 05, 2020 2:29pm Negative NEGATIVE [facility], [address] [place] [address] 74328 Urine Glucose March 02, 2020 10:48am Negative NEGATIVE [facility], [address] [place] [address] 31965 Urine Glucose February 20, 2020 8:40am Negative NEGATIVE [facility], [address] [place] [address] 02592 Urine Ketones August 09, 2020 8:06pm Negative NEGATIVE [facility], [address] [place] [address] Urine Ketones August 03, 2020 2:50pm Negative NEGATIVE [facility], [address] [place] [address] 95737 Urine Ketones July 01, 2020 9:30pm Trace NEGATIVE [facility], [address] [place] [address] Urine Ketones May 18, 2020 12:15am Negative NEGATIVE [facility], [address] [place] [address] 77668 Urine Ketones March 25, 2020 8:05am Trace NEGATIVE [facility], [address] [place] [address] 16167 Urine Ketones March 11, 2020 11:00am Trace NEGATIVE [facility], [address] [place] [address] 76160 Urine Ketones March 05, 2020 2:29pm Negative NEGATIVE [facility], [address] [place] [address] Urine Ketones March 02, 2020 10:48am Negative NEGATIVE [facility], [address] [place] [address] 66912 Urine Ketones February 20, 2020 8:40am Trace NEGATIVE [facility], [address] [place] [address] 35995 Urine Urobilinogen August 09 8:06pm 1 eu/dl [facility], [address] [place] [address] Urine Urobilinogen August 03 2:50pm 1 eu/dl [facility], [address] [place] [address] Urine Urobilinogen July 01 0 9:30pm 1 eu/dl [facility], [address] [place] [address] Urine Urobilinogen May 18 020 12:15am 0.2 eu/dl [facility], [address] [place] [address] Urine Urobilinogen March 25, 2020 8:05am 1 eu/dl [facility], [address] [place] [address] Urine Urobilinogen March 11, 2020 11:00am 1 eu/dl [facility], [address] [place] [address] 56082 Urine Urobilinogen March 05, 2020 2:29pm 0.2 eu/dl [facility], [address] [place] [address] Urine Urobilinogen March 02, 2020 10:48am 1 eu/dl [facility], [address] [place] [address] 22832 Urine Urobilinogen February 20, 2020 8:40am 1 eu/dl [facility], [address] [place] [address] 85074 Urine Bilirubin August 09, 2020 8:06pm Negative NEGATIVE [facility], [address] [place] [address] 69974 Urine Bilirubin August 03, 2020 2:50pm Negative NEGATIVE [facility], [address] [place] [address] Urine Bilirubin July 01, 2020 9:30pm Negative NEGATIVE [facility], [address] [place] [address] Urine Bilirubin May 18, 2020 12:15am Negative NEGATIVE [facility], [address] [place] [address] 79877 Urine Bilirubin March 25, 2020 8:05am Negative NEGATIVE [facility], [address] [place] [address] 89966 Urine Bilirubin March 11, 2020 11:00am Negative NEGATIVE [facility], [address] [place] [address] 64738 Urine Bilirubin March 05, 2020 2:29pm Negative NEGATIVE [facility], [address] [place] [address] 49485 Urine Bilirubin March 02, 2020 10:48am Negative NEGATIVE [facility], [address] [place] [address] [id number] Urine Bilirubin February 20, 2020 8:40am Negative NEGATIVE [facility], [address] [place], [place] [id number] Urine Blood May 18, 2020 12:15am Negative NEGATIVE [facility], [address] [place] [address] [id number] Urine Blood February 20, 2020 8:40am Large NEGATIVE [facility], [address] [place] [address] Urine Blood August 09, 2020 8:06pm Moderate NEGATIVE A Culture has been added to this specimen per established criteria [facility], [address] [place] [address] [id number] Urine Blood August 03, 2020 2:50pm Small NEGATIVE [facility], [address] [place] [address] [id number] Urine Blood July 01, 2020 9:30pm Moderate NEGATIVE A Culture has been added to this specimen per established criteria [facility], [address] [place] [address] [id number] Urine Blood March 25, 2020 8:05am Negative NEGATIVE [facility], [address] [place] [address] Urine Blood March 11, 2020 11:00am Negative NEGATIVE [facility], [address] [place] [address] Urine Blood March 05, 2020 2:29pm Large NEGATIVE A Culture has been added to this specimen per established criteria [facility], [address] [place] [address] Urine Blood March 02, 2020 10:48am Trace NEGATIVE [facility], [address] [place] [address] [id number] Microscopic Urinalysis Comment Septe 2019 12:15am No [facility], [address] [place] [address] [id number] Microscopic Urinalysis Comment February 20, 2020 8:40am Microscopic added [facility], [address] [place] [address] Add Urine Microanalysis July 8:06pm Microscopic added [facility], [address] [place] [address] Add Urine Microanalysis July 2:50pm Microscopic added [facility], [address] [place] [address] Add Urine Microanalysis June 9:30pm Microscopic added [facility], [address] [place] [address] Add Urine Microanalysis March 25, 2020 8:05am Microscopic added [facility], [address] [place] [address] Add Urine Microanalysis March 11, 020 11:00am Microscopic added [facility], [address] [place] [address] Add Urine Microanalysis March 05, 020 2:29pm Microscopic added [facility], [address] [place] [address] Add Urine Microanalysis March 02, 020 10:48am Microscopic added [facility], [address] [place] [address] Urine RBC August 09, 2020 8:06pm 1-2 /hpf [facility], [address] [place] [address] Urine RBC August 03, 2020 2:50pm 6-10 /hpf [facility], [address] [place] [address] Urine RBC July 01, 2020 9:30pm Occasional /hpf [facility], [address] [place] [address] Urine RBC March 05, 2020 2:29pm 3-5 /hpf [facility], [address] [place] [address] Urine RBC March 02, 2020 10:48am Occasional /hpf [facility], [address] [place] [address] Urine WBC February 20, 2020 8:40am 20-30 /hpf [facility], [address] [place] [address] Urine WBC August 09, 2020 8:06pm 1-2 /hpf [facility], [address] [place] [address] Urine WBC August 03, 2020 2:50pm 20-30 /hpf [facility], [address] [place] [address] Urine WBC July 01, 2020 9:30pm Occasional /hpf [facility], [address] [place] [address] Urine WBC March 25, 2020 8:05am 3-5 /hpf [facility], [address] [place] [address] Urine WBC March 11, 2020 11:00am 3-5 /hpf [facility], [address] [place] [address] Urine WBC March 05, 2020 2:29pm Occasional /hpf [facility], [address] [place] [address] Urine WBC March 02, 2020 10:48am 3-5 /hpf [facility], [address] [place] [address] Urine Squamous Epithelial Cells Dece mb2019 8:06pm Many /hpf [facility], [address] [place] [address] Urine Squamous Epithelial Cells Dece mber 2019 2:50pm Moderate /hpf [facility], [address] [place] [address] Urine Squamous Epithelial Cells Nove mber 2019 9:30pm Moderate /hpf [facility], [address] [place] [address] Urine Squamous Epithelial Cells Augu 2019 8:05am Many /hpf [facility], [address] [place] [address] Urine Squamous Epithelial Cells March 11, 2020 11:00am Many /hpf [facility], [address] [place] [address] Urine Squamous Epithelial Cells March 05, 2020 2:29pm Many /hpf [facility], [address] [place] [address] Urine Squamous Epithelial Cells March 02, 2020 10:48am Many /hpf [facility], [address] [place] [address] Urine Squamous Epithelial Cells February 20, 2020 8:40am Many /hpf [facility], [address] [place] [address] Urine Bacteria February 20, 2020 8:40am Moderate amount NEGATIVE [facility], [address] [place] [address] Urine Bacteria August 09, 2020 8:06pm Small amount NEGATIVE [facility], [address] [place] [address] 42232 Urine Bacteria August 03, 2020 2:50pm Small amount NEGATIVE [facility], [address] [place] [address] 60327 Urine Bacteria July 01, 2020 9:30pm Moderate amount NEGATIVE A Culture has been added to this specime n per established criteria [facility], [address] [place] [address] Urine Bacteria March 25, 2020 8:05am Small amount NEGATIVE [facility], [address] [place] [address] Urine Bacteria March 11, 2020 11:00am Small amount NEGATIVE [facility], [address] [place] [address] Urine Bacteria March 05, 2020 2:29pm Small amount NEGATIVE [facility], [address] [place] [address] Urine Bacteria March 02, 2020 10:48am Small amount NEGATIVE [facility], [address] [place] [address] 69625 Urine Mucus March 25, 2020 8:05am Small amount [facility], [address] [place] [address] 33220 Urine Sperm February 20, 2020 8:40am Few [facility], [address] [place] [address] 31962 Blood Urea Nitrogen August 09 020 7:35pm 8 mg/dL 05-15 [facility], [address] [place] [address] Blood Urea Nitrogen August 03 020 2:35pm 5 mg/dL 05-15 [facility], [address] [place] [address] Blood Urea Nitrogen July 01 9:40pm 6 mg/dL 05-15 [facility], [address] [place] [address] Blood Urea Nitrogen May 18, 2020 6:17am 7 mg/dL 05-15 [facility], [address] [place] [address] Blood Urea Nitrogen March 25, 2020 8:11a m 7 mg/dL 05-15 [facility], [address] [place] [address] Blood Urea Nitrogen March 11, 2020 12:14p m 6 mg/dL 05-15 [facility], [address] [place] [address] 60397 Blood Urea Nitrogen March 02, 2020 11:00a m 8 mg/dL 05-15 [facility], [address] [place] [address] Blood Urea Nitrogen February 26, 2020 10:02am 7 mg/dL 05-15 [facility], [address] [place] [address] Blood Urea Nitrogen February 20, 2020 8:35am 6 mg/dL 05-15 [facility], [address] [place] [address] 37703 Sodium Level August 09, 2020 7:35pm 141 mmol/L 132-146 [facility], [address] [place] [address] 52213 Sodium Level August 03, 2020 2:35pm 138 mmol/L 132-146 [facility], [address] [place] [address] 44594 Sodium Level July 01, 2020 9:40pm 141 mmol/L 132-146 [facility], [address] [place] [address] 01190 Sodium Level May 18, 2020 6:17am 143 mmol/L 132-146 [facility], [address] [place] [address] 19814 Sodium Level March 25, 2020 8:11am 137 mmol/L 132-146 [facility], [address] [place] [address] 55739 Sodium Level March 11, 2020 12:14pm 140 mmol/L 132-146 [facility], [address] [place] [address] 05323 Sodium Level March 02, 2020 11:00am 139 mmol/L 132-146 [facility], [address] [place] [address] 72474 Sodium Level February 26, 2020 10:02am 138 mmol/L 132-146 [facility], [address] [place] [address] 34477 Sodium Level February 20, 2020 8:35am 138 mmol/L 132-146 [facility], [address] [place] [address] 35161 Potassium Level August 09, 2020 7:35pm 3.9 mmol/L 3.5-5.5 [facility], [address] [place] [address] 24070 Potassium Level August 03, 2020 2:35pm 4.6 mmol/L 3.5-5.5 [facility], [address] [place] [address] 38088 Potassium Level July 01, 2020 9:40pm 3.7 mmol/L 3.5-5.5 [facility], [address] [place] [address] Potassium Level May 18, 2020 6:17a m 3.8 mmol/L 3.5-5.5 [facility], [address] [place] [address] 76741 Potassium Level March 25, 2020 8:11am 3.7 mmol/L 3.5-5.5 [facility], [address] [place] [address] 65671 Potassium Level March 11, 2020 12:14pm 4.3 mmol/L 3.5-5.5 [facility], [address] [place] [address] 38194 Potassium Level March 02, 2020 11:00am 4.1 mmol/L 3.5-5.5 [facility], [address] [place] [address] 00080 Potassium Level February 26, 2020 10:02am 4.1 mmol/L 3.5-5.5 [facility], [address] [place] [address] 37322 Potassium Level February 20, 2020 8:35am 4.1 mmol/L 3.5-5.5 [facility], [address] [place] [address] 66269 Chloride Level August 09, 2020 7:35pm 111 mmol/l 99-109 [facility], [address] [place] [address] 08936 Chloride Level August 03, 2020 2:35pm 110 mmol/l 99-109 [facility], [address] [place] [address] 07780 Chloride Level July 01, 2020 9:40pm 110 mmol/l 99-109 [facility], [address] [place] [address] 36829 Chloride Level May 18, 2020 6:17am 113 mmol/l 99-109 [facility], [address] [place] [address] 18347 Chloride Level March 25, 2020 8:11am 111 mmol/l 99-109 [facility], [address] [place] [address] 70522 Chloride Level March 11, 2020 12:14pm 111 mmol/l 99-109 [facility], [address] [place] [address] 77075 Chloride Level March 02, 2020 11:00am 111 mmol/l 99-109 [facility], [address] [place] [address] 72007 Chloride Level February 26, 2020 10:02am 107 mmol/l 99-109 [facility], [address] [place] [address] 08840 Chloride Level February 20, 2020 8:35am 108 mmol/l 99-109 [facility], [address] [place] [address] 87333 Carbon Dioxide Level August 09, 2020 7:35pm 24 mmol/l 20-31 [facility], [address] [place] [address] 82357 Carbon Dioxide Level August 03, 2020 2:35pm 21 mmol/l 20-31 [facility], [address] [place] [address] 32240 Carbon Dioxide Level July 01 9:40pm 22 mmol/l 20-31 [facility], [address] [place] [address] 35410 Carbon Dioxide Level May 18, 2020 6:17am 25 mmol/l 20-31 [facility], [address] [place] [address] 75824 Carbon Dioxide Level March 25 8:11am 21 mmol/l 20-31 [facility], [address] [place] [address] 51490 Carbon Dioxide Level March 11, 2020 12:14pm 20 mmol/l 20-31 [facility], [address] [place] [address] 86839 Carbon Dioxide Level March 02, 2020 11:00am 20 mmol/l 20-31 [facility], [address] [place] [address] 97115 Carbon Dioxide Level February 26, 2020 10:02a m 22 mmol/l 20-31 [facility], [address] [place] [address] 23927 Carbon Dioxide Level February 20, 2020 8:35a m 21 mmol/l 20-31 [facility], [address] [place] [address] 26074 Anion Gap August 09, 2020 7:35pm 10 mmol/l 8-16 [facility], [address] [place] [address] 12962 Anion Gap August 03, 2020 2:35pm 12 mmol/l 8-16 [facility], [address] [place] [address] 32255 Anion Gap July 01, 2020 9:40pm 13 mmol/l 8-16 [facility], [address] [place] [address] 90730 Anion Gap May 18, 2020 6:17am 9 mmol/l 8-16 [facility], [address] [place] [address] 70739 Anion Gap March 25, 2020 8:11am 9 mmol/l 8-16 [facility], [address] [place] [address] 82833 Anion Gap March 11, 2020 12:14pm 13 mmol/l 8-16 [facility], [address] [place] [address] 96405 Anion Gap March 02, 2020 11:00am 12 mmol/l [address] [facility], [address] [place] [address] 94950 Anion Gap February 26, 2020 10:02am 13 mmol/l [address] [facility], [address] [place] [address] 90075 Anion Gap February 20, 2020 8:35am 13 mmol/l 8-[address] [place] [address] [facility], [address] [place] [address] 36835 Glucose Level August 09, 2020 7:35pm 89 mg/dL 74-106 [facility], [address] [place] [address] 64069 Glucose Level August 03, 2020 2:35pm 87 mg/dL 74-[address] [place] [address] [facility], [address] [place] [address] 55727 Glucose Level July 01, 2020 9:40pm 100 mg/dL -[address] [place] [address] [facility], [address] [place] [address] 30147 Glucose Level May 18, 2020 6:17am 93 mg/dL [address] [place] [address] [facility], [address] [place] [address] 72654 Glucose Level March 25, 2020 8:11am 93 mg/dL 74[address] [place] [address] [facility], [address] [place] [address] 92825 Glucose Level March 11, 2020 12:14pm 88 mg/dL [address] [place] [address] [facility], [address] [place] [address] 90627 Glucose Level March 02, 2020 11:00am 91 mg/dL 74-106 [facility], [address] [place] [address] 00687 Glucose Level February 26, 2020 10:02am 92 mg/dL 74-106 [facility], [address] [place] [address] 12246 Glucose Level February 20, 2020 8:35am 98 mg/dL [address] [place] [address] [facility], [address] [place] [address] 24564 Creatinine August 09, 2020 7:35pm 1.3 mg/dL 0.5-1.1 [facility], [address] [place] [address] 97705 Creatinine August 03, 2020 2:35pm 0.8 mg/dL 0.5-1.1 [facility], [address] [place] [address] Creatinine July 01, 2020 9:40pm 0.9 mg/dL 0.5-1.1 [facility], [address] [place] [address] Creatinine May 18, 2020 6:17am 0.7 mg/dL 0.5-1.1 [facility], [address] [place] [address] Creatinine March 25, 2020 8:11am 0.9 mg/dL 0.5-1.1 [facility], [address] [place] [address] Creatinine March 11, 2020 12:14pm 1.2 mg/dL 0.5-1.1 [facility], [address] [place] [address] Creatinine March 02, 2020 11:00am 1.0 mg/dL 0.5-1.1 [facility], [address] [place] [address] Creatinine February 26, 2020 10:02am 1.0 mg/dL 0.5-1.1 [facility], [address] [place] [address] Creatinine February 20, 2020 8:35am 1.1 mg/dL 0.5-1.1 [facility], [address] [place] [address] Glomerular Filtration Rate Calc Dece 2019 7:35pm 50 ml/min ABOVE 60 [facility], [address] [place] [address] 01151 Glomerular Filtration Rate Calc Dece 2019 2:35pm Greater than 60 ml/min ABOVE 60 [facility], [address] [place] [address] Glomerular Filtration Rate Calc Nove mber 2019 9:40pm Greater than 60 ml/min ABOVE 60 [facility], [address] [place] [address] 98385 Glomerular Filtration Rate Calc Sept emb2019 6:17am Greater than 60 ml/min ABOVE 60 [facility], [address] [place] [address] Glomerular Filtration Rate Calc Augu 2019 8:11am Greater than 60 ml/min ABOVE 60 [facility], [address] [place] [address] 05725 Glomerular Filtration Rate Calc March 11, 2020 12:14pm 55 ml/min ABOVE 60 [facility], [address] [place] [address] 19045 Glomerular Filtration Rate Calc March 02, 2020 11:00am Greater than 60 ml/min ABOVE 60 [facility], [address] [place] [address] Glomerular Filtration Rate Calc February 26, 2020 10:02am Greater than 60 ml/min ABOVE 60 [facility], [address] [place] [address] Glomerular Filtration Rate Calc February 20, 2020 8:35am Greater than 60 ml/min ABOVE 60 [facility], [address] [place] [address] Alanine Aminotransferase (ALT/SGPT) August 09, 2020 7:35pm 30 U/L 10-49 [facility], [address] [place] [address] Alanine Aminotransferase (ALT/SGPT) August 03, 2020 2:35pm 42 U/L 10-49 [facility], [address] [place] [address] Alanine Aminotransferase (ALT/SGPT) July 01, 2020 9:40pm 43 U/L 10-49 [facility], [address] [place] [address] Alanine Aminotransferase (ALT/SGPT) May 18, 2020 6:17am 52 U/L 10-49 [facility], [address] [place] [address] Alanine Aminotransferase (ALT/SGPT) March 25, 2020 8:11am 27 U/L 10-49 [facility], [address] [place] [address] Alanine Aminotransferase (ALT/SGPT) March 11, 2020 12:14pm 29 U/L 10-49 [facility], [address] [place] [address] Alanine Aminotransferase (ALT/SGPT) March 02, 2020 11:00am 29 U/L 10-49 [facility], [address] [place] [address] Alanine Aminotransferase (ALT/SGPT) February 26, 2020 10:02am 33 U/L 10-49 [facility], [address] [place] [address] Alanine Aminotransferase (ALT/SGPT) February 20, 2020 8:35am 42 U/L 10-49 [facility], [address] [place] [address] 69409 Aspartate Amino Transf (AST/SGOT) 2019 7:35pm 13 U/L 0-33 [facility], [address] [place] [address] 94215 Aspartate Amino Transf (AST/SGOT) De cember 2019 2:35pm 35 U/L 0-33 [facility], [address] [place] [address] 75723 Aspartate Amino Transf (AST/SGOT) No vember 2019 9:40pm 21 U/L 0-33 [facility], [address] [place] [address] 33335 Aspartate Amino Transf (AST/SGOT) Se ptember 2019 6:17am 27 U/L 0-33 [facility], [address] [place] [address] 67723 Aspartate Amino Transf (AST/SGOT) Au kem 2019 8:11am 15 U/L 0-33 [facility], [address] [place] [address] 46996 Aspartate Amino Transf (AST/SGOT) Ju ly 2019 12:14pm 17 U/L 0-33 [facility], [address] [place] [address] 69206 Aspartate Amino Transf (AST/SGOT) Ju ly 2019 11:00am 14 U/L 0-33 [facility], [address] [place] [address] 94477 Aspartate Amino Transf (AST/SGOT) Ju ly 2019 10:02am 17 U/L 0-33 [facility], [address] [place] [address] 00244 Aspartate Amino Transf (AST/SGOT) Ju ne 2019 8:35am 23 U/L 0-33 [facility], [address] [place] [address] 99615 Alkaline Phosphatase August 09, 2020 7:35pm 122 U/L 45-129 [facility], [address] [place] [address] 39664 Alkaline Phosphatase August 03, 2020 2:35pm 125 U/L 45-129 [facility], [address] [place] [address] 88892 Alkaline Phosphatase July 01 020 9:40pm 139 U/L 45-129 [facility], [address] [place] [address] 86992 Alkaline Phosphatase May 18, 2020 6:17am 110 U/L 45-129 [facility], [address] [place] [address] 83517 Alkaline Phosphatase March 25 0 8:11am 122 U/L 45-129 [facility], [address] [place] [address] 44810 Alkaline Phosphatase March 11, 2020 12:14pm 129 U/L 45-129 [facility], [address] [place] [address] 60652 Alkaline Phosphatase March 02, 2020 11:00am 136 U/L 45-129 [facility], [address] [place] [address] 21144 Alkaline Phosphatase February 26, 2020 10:02a m 147 U/L 45-129 [facility], [address] [place] [address] 43992 Alkaline Phosphatase February 20, 2020 8:35a m 149 U/L 45-129 [facility], [address] [place] [address] 51749 Amylase Level August 09, 2020 7:35pm 39 U/L 30-118 [facility], [address] [place] [address] Amylase Level August 03, 2020 2:35pm 31 U/L 30-118 [facility], [address] [place] [address] 83696 Amylase Level May 17, 2020 7:20pm 39 U/L 30-118 [facility], [address] [place] [address] 11166 Amylase Level March 25, 2020 8:11am 35 U/L 30-118 [facility], [address] [place] [address] 38188 Lipase August 09, 2020 7:35pm 90 U/L 73-393 [facility], [address] [place] [address] 39626 Lipase August 03, 2020 2:35pm 68 U/L 73-393 [facility], [address] [place] [address] 61227 Lipase May 17, 2020 7:20pm 89 U/L 73-393 [facility], [address] [place] [address] 83200 Lipase March 25, 2020 8:11am 97 U/L 73-393 [facility], [address] [place] [address] 14063 Lipase March 11, 2020 12:14pm 128 U/L 73-393 [facility], [address] [place] [address] 96741 Calcium Level August 09, 2020 7:35pm 9.5 mg/dL 8.5-10.1 [facility], [address] [place] [address] 28801 Calcium Level August 03, 2020 2:35pm 9.1 mg/dL 8.5-10.1 [facility], [address] [place] [address] 26216 Calcium Level July 01, 2020 9:40pm 9.2 mg/dL 8.5-10.1 [facility], [address] [place] [address] 20096 Calcium Level May 18, 2020 6:17am 8.5 mg/dL 8.5-10.1 Delta: 9.6 on 05/17/20-2019Repeated by: Roderick Cee 05/18/20 0824.Result Confirmation: 8.3 # mg/dL [facility], [address] [place] [address] 04150 Calcium Level March 25, 2020 8:11am 8.9 mg/dL 8.5-10.1 [facility], [address] [place] [address] 06082 Calcium Level March 11, 2020 12:14pm 8.6 mg/dL 8.5-10.1 [facility], [address] [place] [address] 88012 Calcium Level March 02, 2020 11:00am 9.0 mg/dL 8.5-10.1 [facility], [address] [place] [address] 29868 Calcium Level February 26, 2020 10:02am 9.0 mg/dL 8.5-10.1 [facility], [address] [place] [address] 14887 Calcium Level February 20, 2020 8:35am 9.4 mg/dL 8.5-10.1 [facility], [address] [place] [address] 88907 Total Bilirubin August 09, 2020 7:35pm 0.3 mg/dL 0.3-1.2 [facility], [address] [place] [address] 14104 Total Bilirubin August 03, 2020 2:35pm 0.4 mg/dL 0.3-1.2 [facility], [address] [place] [address] [id number] Total Bilirubin July 01, 2020 9:40pm 0.3 mg/dL 0.3-1.2 [facility], [address] [place] [address] 79630 Total Bilirubin May 18, 2020 6:17a m 0.3 mg/dL 0.3-1.2 [facility], [address] [place] [address] 14923 Total Bilirubin March 25, 2020 8:11am 0.2 mg/dL 0.3-1.2 [facility], [address] [place] [address] 57966 Total Bilirubin March 11, 2020 12:14pm 0.2 mg/dL 0.3-1.2 [facility], [address] [place] [address] Total Bilirubin March 02, 2020 11:00am 0.4 mg/dL 0.3-1.2 [facility], [address] [place] [address] 49253 Total Bilirubin February 26, 2020 10:02am 0.3 mg/dL 0.3-1.2 [facility], [address] [place] [address] Total Bilirubin February 20, 2020 8:35am 0.3 mg/dL 0.3-1.2 [facility], [address] [place] [address] 93061 Albumin August 09, 2020 7:35pm 3.6 g/dL 3.2-4.8 [facility], [address] [place], [place] [id number] Albumin August 03, 2020 2:35pm 3.5 g/dL 3.2-4.8 [facility], [address] [place] [address] 78385 Albumin July 01, 2020 9:40pm 3.5 g/dL 3.2-4.8 [facility], [address] [place] [address] 16510 Albumin May 18, 2020 6:17am 3.0 g/dL 3.2-4.8 [facility], [address] [place] [address] [id number] Albumin March 25, 2020 8:11am 3.0 g/dL 3.2-4.8 [facility], [address] [place] [address] 03781 Albumin March 11, 2020 12:14pm 3.2 g/dL 3.2-4.8 [facility], [address] [place] [address] 31209 Albumin March 02, 2020 11:00am 3.1 g/dL 3.2-4.8 [facility], [address] [place] [address] 56293 Albumin February 26, 2020 10:02am 3.4 g/dL 3.2-4.8 [facility], [address] [place] [address] 97392 Albumin February 20, 2020 8:35am 3.5 g/dL 3.2-4.8 [facility], [address] [place] [address] [id number] Serum Total Protein August 09, 2 020 7:35pm 8.2 g/dL 5.7-8.2 [facility], [address] [place] [address] 26188 Serum Total Protein August 03 020 2:35pm 8.1 g/dL 5.7-8.2 [facility], [address] [place] [address] 24412 Serum Total Protein July 01 9:40pm 8.0 g/dL 5.7-8.2 [facility], [address] [place], [place] [id number] Serum Total Protein May 18, 2020 6:17am 6.6 g/dL 5.7-8.2 [facility], [address] [place] [address] Serum Total Protein March 25, 2020 8:11a m 7.7 g/dL 5.7-8.2 [facility], [address] [place] [address] Serum Total Protein March 11, 2020 12:14p m 7.6 g/dL 5.7-8.2 [facility], [address] [place], [place] [id number] Serum Total Protein March 02, 2020 11:00a m 7.9 g/dL 5.7-8.2 [facility], [address] [place] [address] 88374 Serum Total Protein February 26, 2020 10:02am 7.6 g/dL 5.7-8.2 [facility], [address] [place] [address] 25748 Serum Total Protein February 20, 2020 8:35am 7.9 g/dL 5.7-8.2 [facility], [address] [place] [address] 58167 Lactic Acid Level July 01, 2020 9:40p m 1.0 mmol/L 0.5-2.2 [facility], [address] [place] [address] 46857 Human Chorionic Gonadotropin, Quant August 09, 2020 7:35pm 07532 mIU/mL 0-10 APPROXIMATE GESTATION AGE APRROX IMATE HCG RANGE 0-1 WEEK 0 - 50 1-2 WEEKS 40 - 300 2-3 WEEKS 100 - 1,000 3-4 WEEKS 500 - 6,000 1-2 MONTHS 5,000 - 200,000 2-3 MONTHS 10,000 - 100,000 2ND TRIMESTER 3,000 - 50,000 3RD TRIMESTER 1,000 - 50,000 [facility], [address] [place] [address] 61060 Human Chorionic Gonadotropin, Quant August 14, 2020 9:31am 68278 mIU/mL 0-10 APPROXIMATE GESTATION AGE APRROX IMATE HCG RANGE 0-1 WEEK 0 - 50 1-2 WEEKS 40 - 300 2-3 WEEKS 100 - 1,000 3-4 WEEKS 500 - 6,000 1-2 MONTHS 5,000 - 200,000 2-3 MONTHS 10,000 - 100,000 2ND TRIMESTER 3,000 - 50,000 3RD TRIMESTER 1,000 - 50,000 [facility], [address] [place] [address] 23938 Human Chorionic Gonadotropin, Quant August 03, 2020 2:35pm 80262 mIU/mL 0-10 APPROXIMATE GESTATION AGE APRROX IMATE HCG RANGE 0-1 WEEK 0 - 50 1-2 WEEKS 40 - 300 2-3 WEEKS 100 - 1,000 3-4 WEEKS 500 - 6,000 1-2 MONTHS 5,000 - 200,000 2-3 MONTHS 10,000 - 100,000 2ND TRIMESTER 3,000 - 50,000 3RD TRIMESTER 1,000 - 50,000 [facility], [address] [place] [address] 92372 Human Chorionic Gonadotropin, Quant July 01, 2020 10:10am Less than 1 mIU/mL 0-1 0 APPROXIMATE GESTATION AGE APRROX IMATE HCG RANGE 0-1 WEEK 0 - 50 1-2 WEEKS 40 - 300 2-3 WEEKS 100 - 1,000 3-4 WEEKS 500 - 6,000 1-2 MONTHS 5,000 - 200,000 2-3 MONTHS 10,000 - 100,000 2ND TRIMESTER 3,000 - 50,000 3RD TRIMESTER 1,000 - 50,000 [facility], [address] [place] [address] 12967 Thyroid Stimulating Hormone (TSH) Ju ly 2019 10:02am 1.84 uIU/mL 0.35-5.50 [facility], [address] [place] [address] 91880 Serum Test, Qualitative De cember 2019 2:35pm Positive NEGATIVE [facility], [address] [place] [address] 69163 Serum Test, Qualitative No vember 2019 9:40pm Negative NEGATIVE [facility], [address] [place] [address] 80342 Serum Test, Qualitative Se ptember 2019 7:20pm Negative NEGATIVE [facility], [address] [place] [address] 94720 Serum Test, Qualitative 2019 8:11am Negative NEGATIVE [facility], [address] [place] [address] 23632 Urine HCG, Qualitative March 11 11:00am Negative NEGATIVE [facility], [address] [place] [address] 83773 Urine HCG, Qualitative March 02 11:00am Negative NEGATIVE [facility], [address] [place] [address] 21213 Urine HCG, Qualitative February 19 8:32am Negative NEGATIVE [facility], [address] [place] [address] 98203 Coronavirus (COVID-19)(PCR) March 252019 2:30pm Not detected Not Detec dee This test was developed and its performa nce characteristicsdetermined by [employer]. This test has not beenFDA cleared or [...] detected) result in this assay.Performed at: - [address] [id number] Director: Deisy Hdez MD, Phone: [phone] [facility] , [address] [facility] [address] Urine Random Creatinine February 27 7:19am 234.0 mg/dL THERE IS NO ESTABLISHED RANGE FOR RANDOM URINE CREATININE [facility], [address] [place] [address] 34105 Urine Microalbumin February 28, 2020 7:19am 13.7 mg/L 0.0-29.9 [facility], [address] [place] [address] Urine Microalbumin/Creatinine Ratio February 28, 2020 7:19am 5.8 ug/mg 0.0-30.0 [facility], [address] [place] [address] Hemoglobin A1c February 26, 2020 10:02am 5.3 [...] may demonstrate HGBA1C levels in this area. [facility], [address] [place] [address] Estimated Average Glucose (eAG) February 26, 2020 10:02am 105 mg/dl An A1C of 7% - the goal of diabetic therapy - is equivalentto an EAG of 154 mg/dl. [facility], [address] [place] [address] Microbiology Results Procedure Source Result Collection Date/Time Result Date/Time Result Comment Performing Site Urine Culture Urine,voided August 09, 2020 8:06pm August 11, 2020 7:16am [facility], [address] [place] [address] Urine Culture Urine,clean catch August 03, 2020 2:50pm August 04, 2020 11:45am [facility], [address] [place] [address] Urine Culture Urine,voided July 01, 2020 9:30pm June 232019 7:24am [facility], [address] [place] [address] Urine Culture Urine,voided May 18, 2020 1:15am Septembe r 2019 11:25am [facility], [address] [place] [address] Urine Culture Urine,clean catch March 25, 2020 9:05am March 26, 2020 1:36pm [facility], [address] [place] [address] 24626 Urine Culture Urine,clean catch March 11, 2020 12:00pm March 12, 2 020 1:24pm [facility], [address] [place] [address] 20671 Urine Culture Urine,voided March 05, 2020 3:29pm March 06, 9:18am [facility], [address] [place] [address] 02488 Urine Culture Urine,voided March 02, 2020 11:48am March 03, 2 020 8:26am [facility], [address] [place] [address] 18606 Streptococcus Rapid Screen Throat March 13, 2020 10:34am March 14, 2 020 8:58am [facility], [address] [place], [place] [address] Streptococcus Rapid Screen Throat March 13, 2020 10:34am March 13, 2 020 11:04am [facility], [address] [place] [address] 76715 Blood Culture Venous blood No growth. July 01, 2020 9:40pm June 232019 9:46pm [facility], [address] [place] [address] 72154 SARS-CoV-2 (PCR) Interpretation Naso pharyngeal No Organisms Detected July 01, 2020 9:45pm July 01, 2020 10:29pm [facility], [address] [place] [address] 47368 Nasal BinaxNow Covid - 19 Ag Negative July 30, 2020 9:45am July 302019 11:56am [facility], [address] [place] [address] 50497 Influenza-Like Illness (PCR) Nasopharyngea l No Organisms Detected August 22, 2020 6:22am August 22, 2020 7:41am [facility], [address] [place] [address] 68128 Nasopharyngeal August 22, 2020 6:22am August 22, 2020 7:41am [facility], [address] [place] [address] 85571 Gastrointestinal Tract Panel (PCR) Stool C. difficile toxin detected May 17, 2020 3:03pm May 17, 2020 5:25pm [facility], [address] [place] [address] 62233 Respiratory Panel (PCR) Nasopharyngeal No Organisms Detected May 18, 2020 1:40am May 18, 2020 2:49am [facility], [address] [place] [address] 28931 Diagnostic Imaging Reports Report Dictated Date/Time Dictated By Status Radiology Report February 28, 2020 9:48am Oliverio Chen MD completed [facility] [address] [place] [address] [phone] NAME SEX PT STATUS ACCOUNT NUMBER ANNA MARIE BELTRAN REG REF [id number] ORDERING PHYSICIAN LOCATION MEDICAL RECORD NO. Jose Kramer DO [id number] ATTENDING PHYSICIAN DATE OF DATE OF EXAM/TIME [...] 5. No free intraperitoneal fluid. Reported By Olievrio Chen MD on 02/28/20 0948 Signed By Oliverio Chen MD on 02/28/20 0952 Date Time CC: Jose Kramer DO; Oliverio Chen MD Techn: BUSMI Trans Dt/Tm: Trans by: DT Prt Dt/Tm: : Total DLP = 0.00 mGy-cm : Total Radiation Dose = 0.0000 mSv Lifetime Dose: 0 mSv Radiology Report March 02, 2020 1:53pm Warren Bourne MD completed [facility] [address] 4[address]873 [phone] NAME SEX PT STATUS ACCOUNT NUMBER ANNA MARIE BELTRAN [facility] [id number] ORDERING PHYSICIAN LOCATION MEDICAL RECORD NO. Sameer Islas MD ER [id number] ATTENDING PHYSICIAN DATE OF DATE OF EXAM/TIME Jose Kramer DO 1995 03/02/20 / 1329 TYPE / EXAM CT Abd/pel w/ contrast [...] 12, 2020 2:59pm Oliverio Chen MD completed [address] [place] [address] [phone] NAME SEX PT STATUS ACCOUNT NUMBER ANNA MARIE BELTRAN REG REF [id number] ORDERING PHYSICIAN LOCATION MEDICAL RECORD NO. Pola Meadows MD [id number] ATTENDING PHYSICIAN DATE OF DATE OF EXAM/TIME [...] 25, 2020 10:18am Oliverio Chen MD completed [facility] [address] [place] [address] [phone] NAME SEX PT STATUS ACCOUNT NUMBER ANNA MARIE BELTRAN [facility] [id number] ORDERING PHYSICIAN LOCATION MEDICAL RECORD NO. Hiren Perez MD ER [id number] ATTENDING PHYSICIAN DATE OF DATE OF EXAM/TIME [...] May 17 9:41pm Ulisses Sethi MD completed [facility] [address] [facility] [address] [place] [id number] [phone] NAME SEX PT STATUS ACCOUNT NUMBER ANNA MARIE BELTRAN [facility] [id number] ORDERING PHYSICIAN LOCATION MEDICAL RECORD NO. Mikhail Sheriff MD ER [id number] ATTENDING PHYSICIAN DATE OF DATE OF EXAM/TIME [...] 2020 10:55p m Telly Robledo MD completed [address] [place] [address] [phone] NAME SEX PT STATUS ACCOUNT NUMBER ANNA MARIE BELTRAN [facility] [id number] ORDERING PHYSICIAN LOCATION MEDICAL RECORD NO. Mikhail Sheriff MD ER [id number] ATTENDING PHYSICIAN DATE OF DATE OF EXAM/TIME [...] Trans Dt/Tm: Trans by: DT Prt Dt/Tm: 2121-6614: Total DLP = 0.00 mGy-cm Fluoroscopy Time (in secs): Radiology Report July 01, 2020 11:07p m Niels Wilkerson MD completed [place] [address] [place] 4[address]874 [phone] NAME SEX PT STATUS ACCOUNT NUMBER ANNA MARIE BELTRAN [facility] ER [id number] ORDERING PHYSICIAN LOCATION MEDICAL RECORD NO. Mikhail Sheriff MD ER [id number] ATTENDING PHYSICIAN DATE OF DATE OF EXAM/TIME [...] Trans Dt/Tm: Trans by: DT Prt Dt/Tm: 2629-1520: Total DLP = 1469.00 mGy-cm 2512-5471: Total Radiation Dose = 22.0350 mSv Lifetime Dose: 56.7900 mS v Radiology Report August 03, 2020 7:33p m iGbran Villa MD completed [facility] [address] [place] [id number] [phone] NAME SEX PT STATUS ACCOUNT NUMBER ANNA MARIE BELTRAN [facility] ER [id number] ORDERING PHYSICIAN LOCATION MEDICAL RECORD NO. Daljit Alex MD ER [id number] ATTENDING PHYSICIAN DATE OF DATE OF EXAM/TIME Nicol Sebastain NP 1995 08/03/201857 TYPE / EXAM US [...] MD Techn: FREST Trans Dt/Tm: Trans by: LUPIS Prt Dt/Tm: : Total DLP = 0.00 mGy-cm : Total Radiation Dose = 0.0000 mSv Lifetime Dose: 56.7900 mSv Radiology Report August 03, 2020 7:59p m Telly Robledo MD completed [place] [address] [place] [address] [phone] NAME SEX PT STATUS ACCOUNT NUMBER ANNA MARIE BELTRAN [facility] ER [id number] ORDERING PHYSICIAN LOCATION MEDICAL RECORD NO. Daljit Alex MD ER [id number] ATTENDING PHYSICIAN DATE OF DATE OF EXAM/TIME [...] 2020 7:34p m Gibran Villa MD completed [place] [address] [place] [address] [phone] NAME SEX PT STATUS ACCOUNT NUMBER ANNA MARIE BELTRAN [facility] ER [id number] ORDERING PHYSICIAN LOCATION MEDICAL RECORD NO. Daljit Alex MD ER [id number] ATTENDING PHYSICIAN DATE OF DATE OF EXAM/TIME Nicol Sebastian ENERGY EFFICIENT SITE MANAGER 1995 08/03/201858 TYPE / EXAM US OB Ultrasound <14 weeks REASON FOR EXAM RLQ PAIN; R/O ECTOPIC [place] [address] [address] [place] [address] [phone] NAME SEX PT STATUS ACCOUNT NUMBER ANNA MARIE BELTRAN [facility] ER [id number] ORDERING PHYSICIAN LOCATION MEDICAL RECORD NO. Daljit Alex MD ER [id number] ATTENDING PHYSICIAN DATE OF DATE OF EXAM/TIME RomuloNicol ENERGY EFFICIENT SITE MANAGER 1995 08/03/201857 TYPE / EXAM US OB [...] 2020 9:02p m Telly Robledo MD completed [facility] [address] 4505863 [phone] NAME SEX PT STATUS ACCOUNT NUMBER ANNA MARIE BELTRAN [facility] ER [id number] ORDERING PHYSICIAN LOCATION MEDICAL RECORD NO. Mikhail Sheriff MD ER [id number] ATTENDING PHYSICIAN DATE OF DATE OF EXAM/TIME Nicol Sebastian NP 1995 08/09/202038 TYPE / EXAM US OB Ultrasound <14 weeks REASON FOR EXAM Gen abd pain. +HCG ANNA MARIE BELTRAN [id number] 1995 ADDENDUM Clinical History/Indication for Exam: Gen [...] Trans Dt/Tm: Trans by: DT Prt Dt/Tm: 0970-1044: Total DLP = 0.00 mGy-cm 9349-6792: Total Radiation Dose = 0.0000 mSv Lifetime Dose: 56.7900 mSv Radiology Report August 14, 2020 11:09am Oliverio Chen MD completed [facility] [address] [place] [address] [phone] NAME SEX PT STATUS ACCOUNT NUMBER ANNA MARIE BELTRAN REG REF [id number] ORDERING PHYSICIAN LOCATION MEDICAL RECORD NO. Jarret Herbert MD [id number] ATTENDING PHYSICIAN DATE OF DATE OF EXAM/TIME Nicol Sebastian NP 1995 08/14/20915 TYPE / EXAM US OB Ultrasound <14 weeks REASON FOR EXAM FOLLOW UP SUBCHOR/ EARLY COMPARISON: August 19, 2020 and 2019 FINDINGS: Gestation: Single [place]-rump length: Singlemm compatible with a Single week Single day gestational age. Yolk sac: Not seen No heart rate detected. Uterus: 8.5 x 4.6 x 7.0cm. A subchorionic hemorrhage is still seen. Average ultrasound age of 5 weeks 6 days. EDC: April 10, 2021. [place]-rump length: 3.4mm IMPRESSION: 1. Gestational sac measurements, unchanged. 2. Subarachnoid hemorrhage is still seen. 3. Linear intraamniotic echogenicity, possibly the pole. No heart rate detected. Reported By Oliverio Chen MD on 08/14/20 1109 Signed By Oliverio Chen MD on 08/14/20 1114 Date Time CC: Nicol Sebastian; Oliverio Chen MD Techn: FREST Trans Dt/Tm: Trans by: DT Prt Dt/Tm: 0032-1078: Total DLP = 0.00 mGy-cm 7128-5937: Total Radiation Dose = 0.0000 mSv Lifetime Dose: 56.7900 mSv Radiology Report August 09, 2020 9:05p vivian Robledo MD completed [address] [id number] [phone] NAME SEX PT STATUS ACCOUNT NUMBER ANNA MARIE BELTRAN [facility] ER [id number] ORDERING PHYSICIAN LOCATION MEDICAL RECORD NO. Mikhail Sheriff MD ER [id number] ATTENDING PHYSICIAN DATE OF DATE OF EXAM/TIME Nicol Sebastian NP 1995 08/09/202039 TYPE / EXAM US OB Transvaginal REASON FOR EXAM PAIN [address] [address] [phone] NAME SEX PT STATUS ACCOUNT NUMBER ANNA MARIE BELTRAN [facility] ER [id number] ORDERING PHYSICIAN LOCATION MEDICAL RECORD NO. Mikhail Sheriff MD ER [id number] ATTENDING PHYSICIAN DATE OF DATE OF EXAM/TIME Nicol Sebastian NP 1994 08/09/202038 TYPE / EXAM US OB Ultrasound <14 weeks REASON FOR EXAM Gen abd pain. +HCG ANNA MARIE BELTRAN [id number] 1995 ADDENDUM Clinical History/Indication for Exam: Gen [...] Trans Dt/Tm: Trans by: DT Prt Dt/Tm: 2058-5661: Total DLP = 0.00 mGy-cm 6433-7281: Total Radiation Dose = 0.0000 mSv Lifetime Dose: 56.7900 mSv Reported By Telly Robledo MD on 08/09/20 2105 Signed By Telly Robledo MD on 08/14/20 1245 Date Time CC: Nicol Sebastian; Telly Robledo MD Techn: CARAI Trans Dt/Tm: Trans by: DT Prt Dt/Tm: 7615-2651: Total DLP = 0.00 mGy-cm 8437-4018: Total Radiation Dose = 0.0000 mSv Lifetime Dose: 56.7900 mSv Health Concerns Health Concerns may be documented in an alternate section. Advance Directives Advance Directive Response Recorded Date/Time Advanced Directive No 2019 2:57pm MOLST No August 21, 2020 2:57pm Advance Directives on File or in chart? No August 21, 2020 2:57pm Does Patient have a DNR? 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 BLEED O02.1/SUCTION D+C 69470 Reason for Visit Anxiety Depression GERD (gastroesophageal [...] Bianka Sen MD Departed Physician/Provider Office Visit -[facility] February 20, 2020 10:22am February 20, [...] 2020 4:29pm null Departed Physician/Provider Office Visit -[facility] March 11, 2020 9:28am March 11, 2020 10:13am Trice Aj NP Departed Physician/Provider Office Visit -[facility] March 11, 2020 10:17am March 11, 2020 11:49am Pola Meadows MD Registered Referred -Laboratory March 11, 2020 11:56am Trice Aj NP Registered Referred -Ultrasound March 12, 2020 11:38am Pola Meadows MD Departed Physician/Provider Office Visit -[facility] March 12, 2020 12:22pm March 12, 2020 2:13pm Trice Aj NP Departed Emergency -Emergency Room ER March 13, 2020 9:18am March 13, 2020 10:18am null Departed Emergency -Emergency Room ER March 25, 2020 7:55am March 25, 2020 9:27am null Departed Physician/Provider Office Visit -[facility] March 25, 2020 2:51pm March 25, 2020 2:52pm Nathalie Pace Registered Referred -Lab Drop Off March 25, 2020 3:08pm Nathalie Pace Departed Physician/Provider Office Visit -[facility] March 28, 2020 7:01am March 28, 2020 7:47am Trice Aj NP Registered Outpatient -[facility] Internal Medicine April 05, 2020 8:29am Trice Aj NP Registered Referred -Laboratory May 17, 2020 1:48pm Trice longoria NP Discharged Inpatient -[facility] May 18, 2020 12:18am May 18, 2020 2:40pm Tad Menendez MD Registered Outpatient -[facility] May 20, 2020 2:25pm Amara Garcia RN Departed Physician/Provider Office Visit -[facility] May 23, 2020 7:51am May 23, 2020 8:35am Trice Aj NP Departed Physician/Provider Office Visit -[facility] May 30, 2020 9:25am May 30, 2020 11:56am Nicol Sebastian NP Departed Physician/Provider Office Visit -[facility] Women's Health June 10, 2020 8:26am June 10, 2020 8:58am Jarret Herbert MD Departed Physician/Provider Office Visit -[facility] June 28, 2020 3:47pm June 28, 2020 4:33pm Nicol Sebastian NP Departed Physician/Provider Office Visit -[facility] July 01, 2020 9:04am July 01, 2020 11:04am Nicol Sebastian NP Registered Referred -Laboratory July 01, 2020 9:47am Kiersten Schulz DO Departed Emergency -Emergency Room ER July 01, 2020 8:40pm July 02, 2020 12:20am nasima Departed Physician/Provider Office Visit -[facility] July 04, 2020 11:14am July 04, 2020 12:47pm Nicol Sebastian NP Departed Physician/Provider Office Visit -[facility] July 25, 2020 9:54am July 25, [...] Jarret jade MD Departed Physician/Provider Office Visit -[facility] August 14, 2020 9:41am August 14, 2020 11:45am Jarret Herbert MD Departed Physician/Provider Office Visit -[facility] General Surgery August 20, 2020 9:00am August 20, 2020 9:20am Barrett Sparks MD Departed Physician/Provider Office Visit -[facility] August 21, 2020 10:25am August 21, 2020 11:32am Jarret Herbert MD Registered Referred -Ultrasound August 21, 2020 11:17am Jarret jacobson MD Departed Surgical Day Care -[facility] August 22, 2020 6:20am August 22, 2020 10:05am Jarret Herbert MD Recent Diagnosis Onset Date [...] Response Neil e Recorded Functional Status Complete Logan May 18, 2020 1:30am Goals Goals may be documented in an alternate section. Immunizations No Immunization Information Available Mental Status Observation Response Neil e Recorded Cognitive Status Normal Cognition May 18, 2020 1:30am Medical Equipment No Medical Equipment Information available Insurance Providers Guarantor ANNA MARIE BELTRAN Address [address] [address] Contact Info. Home Phone: Payer Policy Id Coverage Id Subscriber's Name Subscriber Id Effective Date Expiration Date [facility] [id number] ANNA MARIE BELTRAN [id number] [facility] [id number] ANNA MARIE BELTRAN [id number] MEDICAID [facility] [id number] ANNA MARIE BELTRAN [id number] MEDICAID [id number] ANNA MARIE BELTRAN [id number] Self Pay Self N/A Plan of Treatment [...] aware of the patient as well. 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 Increase diet and exercise. Referral to [facility] for chronic inflammation. Elevate legs. 26 [...] qtip inside the ear. Follow up with HAYDEE Schultz. July 26, 2020 for upper GI. [employer] rice, applesauce, bananas, and toast. Resolved. [...] that she has had counseling in the [facility], but symptoms are worse at this time, d/t recent move to [place]. Will continue current meds and will refer to psych. Health Informatics Specialist appt with behavioral health this week. Taking [...] palpation without abnormal physical find ings. 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 [...] Information Provider Address Jarret Herbert MD Email: [email or web address] Phone: [address] [place], [place] [phone] c diff - treated with PO vancomycin Trice dimas NP Email: [email or web address] Phone: [facility] [address] [facility] [address] Call for an appointment to be seen in the next 48 hours Jose Kramer DO Email: [email or web address] Phone: [address] [place] [phone] Call for an appointment for follow-up for Wednesday or Wednesday Jose Kramer DO Email: [email or web address] Phone: [address] [place] [address] [phone] Future Procedures Future procedure information is unavailable [...] 11, 2020 10:48am Respiratory rate 20 /min 08-15March 11, 2020 10:48am Oxygen saturation by Pulse [...] 21, 2020 10:54am Respiratory rate 18 /min 12-24 August 21, 2020 10:54am Oxygen saturation by Pulse [...]
--- OUTSIDE RECORDS SUMMARY | 2020-10-18 09:50 | CCD | Continuity of Care Document ---
Author Author [facility] Organization [facility] Address [address] [place] [address] Phone Support Name Relationship Address Phone Jose Kramer PRS [address] [place] [address] Rachel Senn Bianka PRS [address] [place] [address] John Islas PRS [address] [place] [address] [place] [address] Pola Meadows [place] [address] Pola Meadows PRS [address] [place] [address] Hiren Perez PRS [address] [place] [address] Nathalie Pace PRS [address] [place] [address] Verónica Sheriff PRS [address] [place] [address] Tad Menendez PRS [address] [place] [address] Amara Garcia PRS Unknown Unavailable Nicol Sebastian PRS [address] [place] [address] Darnell Herbert PRS [address] [place] [address] Kiersten Schulz PRS [address] [place] [address] [place] [address] Daljit Alex PRS [address] [place] [address] Niels Valdez PRS [address] [place] [address] Barrett Sparks PRS [address] [place] [address] Allergies, Adverse Reactions, Alerts Allergen Type Severity Reaction Last Updated Verified Status cephalexin Allergy Moder ate Hives August 20, 2020 9:22am Yes Active latex Allergy Moderate Rash August 20, 2020 9:22am Yes Active ondansetron Allergy Mode rate Hives August 20, 2020 9:22am Yes Active sulfamethoxazole Allergy Moderate Hives August 20, 2020 9:22am Yes Active trimethoprim Allergy Mod erate Hives August 20, 2020 9:22am Yes Active Medications Medication Status Dose Units [...] times a day August 09, 2020 6:34pm Buspirone Discontinued 7 .5 MG PO 2 [...] 4:43pm take wit h food Metoprolol Succinate Active 50 MG PO daily May 28, 2020 5:59am Drospirenone-Ethinyl Estradiol Discontinue d 1 TAB PO [...] 2020 8:13am August 06, 2020 8:27am Budesonide-Formoterol Active 2 PUFFS IH 2 Times Per Day August 06, 2020 8:27am Pyridoxine (Vitamin B6) (Vitamin B-6) 25 mg tablet Discontinued 25 MG PO daily August 06, 2020 9:27am August 20, 2020 9:10am Take one tab by mouth daily. Sertraline Active 100 MG PO daily August 19, 2020 8:31am Problems Active Problems Medical Problem Onset Date [...] pharyngitis Resolved Procedures Procedure Date Performed Status US OB Ultrasound <14 weeks August 09, [...] July 01, 2020 completed SARS-CoV-2 (PCR) Interpretation [facility] [address] Abd/pel w/ contrast April 7:09pm completed Urine Culture May 18, 2020 completed Respiratory Panel (PCR) May 182019 completed Gastrointestinal Tract Panel (PCR) S eptemb2019 completed Xray Chest 2 view PA/LAT March [...] 7:35pm 9.9 10e3/uL 4.45-10.71 [facility], [address] [facility] [address] White Blood Count August 14 0 9:31am 9.8 10e3/uL 4.45-10.71 [facility], [address] [facility] [address] White Blood Count August 03 0 2:35pm 8.6 10e3/uL 4.45-10.71 [facility], [address] [place] [address] White Blood Count July 01, 2020 9:40p m 11.2 10e3/uL 4.45-10.71 [facility], [address] [place] [address] White Blood Count May 18 6:17am 9.3 10e3/uL 4.45-10.71 [facility], [address] [place] [address] White Blood Count March 25, 2020 8:11am 10.8 10e3/uL 4.45-10.71 [facility], [address] [place] [address] White Blood Count March 11, 2020 12:14pm 11.3 10e3/uL 4.45-10.71 [facility], [address] [place] [address] White Blood Count March 02, 2020 11:00am 10.3 10e3/uL 4.45-10.71 [facility], [address] [place] [address] White Blood Count February 26, 2020 10:02am 9.8 10e3/uL 4.45-10.71 [facility], [address] [place] [address] White Blood Count February 20, 2020 8:35am 8.8 10e3/uL 4.45-10.71 [facility], [address] [place] [address] Red Blood Count August 09, 2020 7:35pm 4.49 10e6/uL 4.20-5.40 [facility], [address] [place] [address] Red Blood Count August 14, 2020 9:31am 4.57 10e6/uL 4.20-5.40 [facility], [address] [place] [address] Red Blood Count August 03, 2020 2:35pm 4.47 10e6/uL 4.20-5.40 [facility], [address] [place] [address] Red Blood Count July 01, 2020 9:40pm 4.51 10e6/uL 4.20-5.40 [facility], [address] [place] [address] Red Blood Count May 18, 2020 6:17a m 4.10 10e6/uL 4.20-5.40 [facility], [address] [place] [address] 24593 Red Blood Count March 25, 2020 8:11am 4.25 10e6/uL 4.20-5.40 [facility], [address] [place] [address] Red Blood Count March 11, 2020 12:14pm 4.58 10e6/uL 4.20-5.40 [facility], [address] [place] [address] Red Blood Count March 02, 2020 11:00am 4.52 10e6/uL 4.20-5.40 [facility], [address] [place] [address] Red Blood Count February 26, 2020 10:02am 4.84 10e6/uL 4.20-5.40 [facility], [address] [place] [address] Red Blood Count February 20, 2020 8:35am 5.02 10e6/uL 4.20-5.40 [facility], [address] [place] [address] Hemoglobin August 09, 2020 7:35pm 11.4 g/dL 10.7-15.4 [facility], [address] [place] [address] Hemoglobin August 14, 2020 9:31am 11.4 g/dL 10.7-15.4 [facility], [address] [place] [address] Hemoglobin August 03, 2020 2:35pm 11.5 g/dL 10.7-15.4 [facility], [address] [place] [address] Hemoglobin July 01, 2020 9:40pm 11.8 g/dL 10.7-15.4 [facility], [address] [place] [address] Hemoglobin May 18, 2020 6:17am 10.9 g/dL 10.7-15.4 [facility], [address] [place] [address] Hemoglobin March 25, 2020 8:11am 11.5 g/dL 10.7-15.4 [facility], [address] [place] [address] Hemoglobin March 11, 2020 12:14pm 12.4 g/dL 10.7-15.4 [facility], [address] [place] [address] Hemoglobin March 02, 2020 11:00am 12.1 g/dL 10.7-15.4 [facility], [address] [place] [address] 35088 Hemoglobin February 26, 2020 10:02am 13.0 g/dL 10.7-15.4 [facility], [address] [place] [address] 98381 Hemoglobin February 20, 2020 8:35am 13.4 g/dL 10.7-15.4 [facility], [address] [place] [address] 11948 Hematocrit August 09, 2020 7:35pm 36.1 % 37-47 [facility], [address] [place] [address] 20973 Hematocrit August 14, 2020 9:31am 36.3 % 37-47 [facility], [address] [place] [address] 33469 Hematocrit August 03, 2020 2:35pm 36.1 % 37-47 [facility], [address] [place] [address] 29891 Hematocrit July 01, 2020 9:40pm 36.6 % 37-47 [facility], [address] [place] [address] 76127 Hematocrit May 18, 2020 6:17am 34.1 % 37-47 [facility], [address] [place] [address] 90645 Hematocrit March 25, 2020 8:11am 34.7 % 37-47 [facility], [address] [place] [address] 01723 Hematocrit March 11, 2020 12:14pm 37.2 % 37-47 [facility], [address] [place] [address] 91916 Hematocrit March 02, 2020 11:00am 36.9 % 37-47 [facility], [address] [place] [address] 87435 Hematocrit February 26, 2020 10:02am 39.4 % 37-47 [facility], [address] [place] [address] 24162 Hematocrit February 20, 2020 8:35am 41.0 % 37-47 [facility], [address] [place] [address] 02306 Mean Corpuscular Volume July h2019 7:35pm 80.4 fl 80-96 [facility], [address] [place] [address] 85433 Mean Corpuscular Volume July 9:31am 79.4 fl 80-96 [facility], [address] [place] [address] 57297 Mean Corpuscular Volume July h2019 2:35pm 80.8 fl 80-96 [facility], [address] [place] [address] 74644 Mean Corpuscular Volume June 9:40pm 81.2 fl 80- [facility], [address] [place] [address] 67236 Mean Corpuscular Volume May 182019 6:17am 83.2 fl [facility], [address] [place] [address] 68895 Mean Corpuscular Volume March 25, 2020 8:11am 81.6 fl 80[facility], [address] [place] [address] 03201 Mean Corpuscular Volume March 11, 2 020 12:14pm 81.2 fl 80- [facility], [address] [place] [address] 64593 Mean Corpuscular Volume March 02, 2 020 11:00am 81.6 fl 80[facility], [address] [place] [address] 09849 Mean Corpuscular Volume February 25 10:02am 81.4 fl 80[facility], [address] [place] [address] 68992 Mean Corpuscular Volume February 19, 2 020 8:35am 81.7 fl [facility], [address] [place] [address] 45737 Mean Corpuscular Hemoglobin August 09, 2020 7:35pm 25.4 pg 27-31 [facility], [address] [place] [address] 98172 Mean Corpuscular Hemoglobin August 14, 2020 9:31am 24.9 pg 27-31 [facility], [address] [place] [address] 58205 Mean Corpuscular Hemoglobin August 03, 2020 2:35pm 25.7 pg 27-31 [facility], [address] [place] [address] 54946 Mean Corpuscular Hemoglobin July 01, 2020 9:40pm 26.2 pg 27-31 [facility], [address] [place] [address] 96597 Mean Corpuscular Hemoglobin 2019 6:17am 26.6 pg 27-31 [facility], [address] [place] [address] 54050 Mean Corpuscular Hemoglobin March 252019 8:11am 27.1 pg 27-31 [facility], [address] [place] [address] 01575 Mean Corpuscular Hemoglobin February 12:14pm 27.1 pg 27-31 [facility], [address] [place] [address] 41649 Mean Corpuscular Hemoglobin February 11:00am 26.8 pg 27-31 [facility], [address] [place] [address] 12007 Mean Corpuscular Hemoglobin February 10:02am 26.9 pg 27-31 [facility], [address] [place] [address] 00241 Mean Corpuscular Hemoglobin January 8:35am 26.7 pg 27[facility], [address] [place] [address] 14499 Mean Corpuscular Hemoglobin Concent August 09, 2020 7:35pm 31.6 g/dl [facility], [address] [place] [address] 42886 Mean Corpuscular Hemoglobin Concent August 14, 2020 9:31am 31.4 g/dl [facility], [address] [place] [address] 44506 Mean Corpuscular Hemoglobin Concent August 03, 2020 2:35pm 31.9 g/dl [address] [place] [address] [facility]ORATORY, [address] [place] [address] 62401 Mean Corpuscular Hemoglobin Concent July 01, 2020 9:40pm 32.2 g/dl [facility], [address] [place] [address] 02666 Mean Corpuscular Hemoglobin Concent May 18, 2020 6:17am 32.0 g/dl [address] [facility], [address] [place] [address] 90359 Mean Corpuscular Hemoglobin Concent March 25, 2020 8:11am 33.1 g/dl 33[facility], [address] [place] [address] 01573 Mean Corpuscular Hemoglobin Concent March 11, 2020 12:14pm 33.3 g/dl [facility], [address] [place] [address] 49300 Mean Corpuscular Hemoglobin Concent March 02, 2020 11:00am 32.8 g/dl [facility], [address] [place] [address] 86146 Mean Corpuscular Hemoglobin Concent February 26, 2020 10:02am 33.0 g/dl 33-[address] [place] [address] LABORATORY, [address] [place] [address] 18180 Mean Corpuscular Hemoglobin Concent February 20, 2020 8:35am 32.7 g/dl [address] [facility], [address] [place] [address] 98768 Red Cell Distribution Width August 09, 2020 7:35pm 14 % 11-15 [facility], [address] [place] [address] Red Cell Distribution Width August 14, 2020 9:31am 15 % 11-15 [facility], [address] [place] [address] 82299 Red Cell Distribution Width August 03, 2020 2:35pm 14 % 11-15 [facility], [address] [place] [address] Red Cell Distribution Width July 01, 2020 9:40pm 14 % 11-15 [facility], [address] [place] [address] 01565 Red Cell Distribution Width 2019 6:17am 14 % 11-15 [facility], [address] [place] [address] 39155 Red Cell Distribution Width March 252019 8:11am 15 % 11-15 [facility], [address] [place] [address] 21106 Red Cell Distribution Width February 12:14pm 15 % 11-15 [facility], [address] [place] [address] 22379 Red Cell Distribution Width February 11:00am 14 % 11-15 [facility], [address] [place] [address] 49634 Red Cell Distribution Width February 10:02am 14 % 11-15 [facility], [address] [place] [address] 35834 Red Cell Distribution Width January 8:35am 15 % 11-15 [facility], [address] [place] [address] 84108 Platelet Count August 09, 2020 7:35pm 423 10e3/ul 130-472 [facility], [address] [place] [address] Platelet Count August 14, 2020 9:31am 429 10e3/ul 130-472 [facility], [address] [place] [address] Platelet Count August 03, 2020 2:35pm 372 10e3/ul 130-472 [facility], [address] [place] [address] Platelet Count July 01, 2020 9:40pm 392 10e3/ul 130-472 [facility], [address] [place] [address] Platelet Count May 18, 2020 6:17am 332 10e3/ul 130-472 [facility], [address] [place] [address] Platelet Count March 25, 2020 8:11am 395 10e3/ul 130-472 [facility], [address] [place] [address] Platelet Count March 11, 2020 12:14pm 460 10e3/ul 130-472 [facility], [address] [place] [address] Platelet Count March 02, 2020 11:00am 410 10e3/ul 130-472 [facility], [address] [place] [address] Platelet Count February 26, 2020 10:02am 436 10e3/ul 130-472 [facility], [address] [place] [address] Platelet Count February 20, 2020 8:35am 479 10e3/ul 130-472 [facility], [address] [place] [address] Mean Platelet Volume August 09, 2020 7:35pm 8.9 fl 9.1-13.1 [facility], [address] [place] [address] Mean Platelet Volume August 14, 2020 9:31am 8.9 fl 9.1-13.1 [facility], [address] [place] [address] Mean Platelet Volume August 03, 2020 2:35pm 9.0 fl 9.1-13.1 [facility], [address] [place] [address] Mean Platelet Volume July 01 020 9:40pm 8.6 fl 9.1-13.1 [facility], [address] [place] [address] Mean Platelet Volume May 18, 2020 6:17am 8.6 fl 9.1-13.1 [facility], [address] [place] [address] Mean Platelet Volume March 25 0 8:11am 8.3 fl 9.1-13.1 [facility], [address] [place] [address] Mean Platelet Volume March 11, 2020 12:14pm 8.4 fl 9.1-13.1 [facility], [address] [place] [address] 49916 Mean Platelet Volume March 02, 2020 11:00am 8.6 fl 9.1-13.1 [facility], [address] [place] [address] 17547 Mean Platelet Volume February 26, 2020 10:02a m 8.7 fl 9.1-13.1 [facility], [address] [place] [address] 63966 Mean Platelet Volume February 20, 2020 8:35a m 8.7 fl 9.1-13.1 [facility], [address] [place] [address] 95136 Neutrophils (%) (Auto) July 7:35pm 71.3 % [address] [place] [address] [facility]ORATORY, [address] [place] [address] 17704 Neutrophils (%) (Auto) July 9:31am 63.7 % [address] [place] [address] [facility]ORATORY, [address] [place] [address] 77108 Neutrophils (%) (Auto) July 2:35pm 68.8 % [address] [place] [address] [facility]ORATORY, [address] [place] [address] 18634 Neutrophils (%) (Auto) July 01, 2020 9:40pm 66.3 % [address] [place] [address] LABORATORY, [address] [place] [address] 21487 Neutrophils (%) (Auto) April 6:17am 66.1 % [address] [place] [address] LABORATORY, [address] [place] [address] 43629 Neutrophils (%) (Auto) March 25 8:11am 58.4 % [address] [place] [address] LABORATORY, [address] [place] [address] 94526 Neutrophils (%) (Auto) March 11 12:14pm 72.2 % [address] [place] [address] LABORATORY, [address] [place] [address] 76517 Neutrophils (%) (Auto) March 02 11:00am 65.4 % [address] [place] [address] LABORATORY, [address] [place] [address] 41432 Neutrophils (%) (Auto) February 25 0 10:02am 62.6 % [address] [place] [address] LABORATORY, [address] [place] [address] 01524 Neutrophils (%) (Auto) February 19 8:35am 62.4 % [address] [place] [address] LABORATORY, [address] [place] [address] 88694 Absolute Neutrophil August 09, 020 7:35pm 7.0 # 1.7-7.6 [facility], [address] [place] [address] Absolute Neutrophil August 14, 020 9:31am 6.2 # 1.7-7.6 [facility], [address] [place] [address] Absolute Neutrophil August 03 020 2:35pm 5.9 # 1.7-7.6 [facility], [address] [place] [address] 58794 Absolute Neutrophil July 01 9:40pm 7.5 # 1.7-7.6 [facility], [address] [place] [address] 74286 Absolute Neutrophil May 18, 2020 6:17am 6.1 # 1.7-7.6 [facility], [address] [place] [address] Absolute Neutrophil March 25, 2020 8:11a m 6.3 # 1.7-7.6 [facility], [address] [place] [address] Absolute Neutrophil March 11, 2020 12:14p m 8.1 # 1.7-7.6 [facility], [address] [place] [address] Absolute Neutrophil March 02, 2020 11:00a m 6.7 # 1.7-7.6 [facility], [address] [place] [address] Absolute Neutrophil February 26, 2020 10:02am 6.1 # 1.7-7.6 [facility], [address] [place] [address] 22597 Absolute Neutrophil February 20, 2020 8:35am 5.5 # 1.7-7.6 [facility], [address] [place] [address] 35160 Lymphocytes (%) (Auto) July 7:35pm 19.4 % 14-46 [facility], [address] [place] [address] Lymphocytes (%) (Auto) July 9:31am 25.9 % 14-46 [facility], [address] [place] [address] 27773 Lymphocytes (%) (Auto) July 2:35pm 20.2 % 14-46 [facility], [address] [place] [address] 39145 Lymphocytes (%) (Auto) July 01, 2020 9:40pm 21.4 % [address] [facility], [address] [place] [address] 09853 Lymphocytes (%) (Auto) April 6:17am 22.8 % [address] [facility], [address] [place] [address] 81226 Lymphocytes (%) (Auto) March 25, 020 8:11am 30.4 % [address] [facility], [address] [place] [address] 81805 Lymphocytes (%) (Auto) March 11 12:14pm 19.0 % [address] [facility], [address] [place] [address] 46714 Lymphocytes (%) (Auto) March 02 11:00am 23.6 % [address] [facility], [address] [place] [address] 62791 Lymphocytes (%) (Auto) February 25 0 10:02am 25.4 % [address] [place] [address] LABORATORY, [address] [place] [address] 54697 Lymphocytes (%) (Auto) February 19 8:35am 26.5 % [address] [facility], [address] [place] [address] 72895 Lymphocytes # (Auto) August 09, 2020 7:35pm 1.9 # 0.6-4.6 [facility], [address] [place] [address] 94620 Lymphocytes # (Auto) August 14, 2020 9:31am 2.5 # 0.6-4.6 [facility], [address] [place] [address] 20763 Lymphocytes # (Auto) August 03, 2020 2:35pm 1.7 # 0.6-4.6 [facility], [address] [place] [address] 87626 Lymphocytes # (Auto) July 01, 020 9:40pm 2.4 # 0.6-4.6 [facility], [address] [place] [address] 56446 Lymphocytes # (Auto) May 18, 2020 6:17am 2.1 # 0.6-4.6 [facility], [address] [place] [address] 08204 Lymphocytes # (Auto) March 25 0 8:11am 3.3 # 0.6-4.6 [facility], [address] [place] [address] 14309 Lymphocytes # (Auto) March 11, 2020 12:14pm 2.1 # 0.6-4.6 [facility], [address] [place] [address] 83211 Lymphocytes # (Auto) March 02, 2020 11:00am 2.4 # 0.6-4.6 [facility], [address] [place] [address] [id number] Lymphocytes # (Auto) February 26, 2020 10:02a m 2.5 # 0.6-4.6 [facility], [address] [place] [address] [id number] Lymphocytes # (Auto) February 20, 2020 8:35a m 2.3 # 0.6-4.6 [facility], [address] [place] [address] [id number] Monocytes (%) (Auto) August 09, 2020 7:35pm 7.0 % 412 [facility], [address] [place] [address] [phone] Monocytes (%) (Auto) August 14, 2020 9:31am 6.9 % 412 [facility], [address] [place] [address] [id number] Monocytes (%) (Auto) August 03, 2020 2:35pm 8.3 % 412 [facility], [address] [place] [address] [id number] Monocytes (%) (Auto) July 01 9:40pm 8.9 % [address] [facility], [address] [place] [address] [id number] Monocytes (%) (Auto) May 18, 2020 6:17am 8.7 % [address] [facility], [address] [place] [address] [phone] Monocytes (%) (Auto) March 25 0 8:11am 7.7 % 412 [facility], [address] [place] [address] [id number] Monocytes (%) (Auto) March 11, 2020 12:14pm 5.5 % 412 [facility], [address] [place] [address] [id number] Monocytes (%) (Auto) March 02, 2020 11:00am 7.8 % 4-12 [facility], [address] [place] [address] [id number] Monocytes (%) (Auto) February 26, 2020 10:02a m 8.2 % 412 [facility], [address] [place] [address] [id number] Monocytes (%) (Auto) February 20, 2020 8:35a m 8.0 % 4-12 [facility], [address] [place] [address] [id number] Monocytes # August 09, 2020 7:35pm 0.7 # 0.2-1.2 [facility], [address] [place] [address] Monocytes # August 14, 2020 9:31am 0.7 # 0.2-1.2 [facility] [facility], [address] [place] [address] Monocytes # August 03, 2020 2:35pm 0.7 # 0.2-1.2 [facility], [address] [place] [address] [id number] Monocytes # July 01, 2020 9:40pm 1.0 # 0.2-1.2 [facility], [address] [place] [address] Monocytes # May 18, 2020 6:17am 0.8 # 0.2-1.2 [facility], [address] [place] [address] [id number] Monocytes # March 25, 2020 8:11am 0.8 # 0.2-1.2 [facility], [address] [place] [address] Monocytes # March 11, 2020 12:14pm 0.6 # 0.2-1.2 [facility], [address] [place] [address] Monocytes # March 02, 2020 11:00am 0.8 # 0.2-1.2 [facility], [address] [place] [address] Monocytes # February 26, 2020 10:02am 0.8 # 0.2-1.2 [facility], [address] [place] [address] Monocytes # February 20, 2020 8:35am 0.7 # 0.2-1.2 [facility], [address] [place] [address] 41412 Eosinophils (%) (Auto) July 7:35pm 1.8 % 0-7 [facility], [address] [place] [address] 12832 Eosinophils (%) (Auto) July 9:31am 3.0 % 0-7 [facility], [address] [place] [address] 93798 Eosinophils (%) (Auto) July 2:35pm 2.2 % 0-7 [facility], [address] [place] [address] 56227 Eosinophils (%) (Auto) July 01, 2020 9:40pm 2.7 % 0-7 [facility], [address] [place] [address] 97609 Eosinophils (%) (Auto) April 6:17am 1.9 % 0-7 [facility], [address] [place] [address] 26726 Eosinophils (%) (Auto) March 25 8:11am 2.7 % 0-7 [facility], [address] [place] [address] 28396 Eosinophils (%) (Auto) March 11 12:14pm 2.5 % 0-7 [facility], [address] [place] [address] 20674 Eosinophils (%) (Auto) March 02 11:00am 2.4 % 0-7 [facility], [address] [place] [address] 30822 Eosinophils (%) (Auto) February 25 0 10:02am 3.1 % 0-7 [facility], [address] [place] [address] 26174 Eosinophils (%) (Auto) February 19 20 8:35am 2.6 % 0-7 [facility], [address] [place] [address] 48144 Absolute Eosinophils (CBC) August 09, 2020 7:35pm 0.2 # 0.0-0.5 [facility], [address] [place] [address] 48213 Absolute Eosinophils (CBC) August 14, 2020 9:31am 0.3 # 0.0-0.5 [facility], [address] [place] [address] 73708 Absolute Eosinophils (CBC) August 03, 2020 2:35pm 0.2 # 0.0-0.5 [facility], [address] [place] [address] 74709 Absolute Eosinophils (CBC) July 01, 2020 9:40pm 0.3 # 0.0-0.5 [facility], [address] [place] [address] 15665 Absolute Eosinophils (CBC) May 18, 2020 6:17am 0.2 # 0.0-0.5 [facility], [address] [place] [address] 94962 Absolute Eosinophils (CBC) March 8:11am 0.3 # 0.0-0.5 [facility], [address] [place] [address] Absolute Eosinophils (CBC) February 12:14pm 0.3 # 0.0-0.5 [facility], [address] [place] [address] Absolute Eosinophils (CBC) February 11:00am 0.3 # 0.0-0.5 [facility], [address] [place] [address] Absolute Eosinophils (CBC) February 26, 2020 10:02am 0.3 # 0.0-0.5 [facility], [address] [place] [address] Absolute Eosinophils (CBC) January 8:35am 0.2 # 0.0-0.5 [facility], [address] [place] [address] Basophils (%) (Auto) August 09, 2020 7:35pm 0.3 % 0.4-1.3 [facility], [address] [place] [address] Basophils (%) (Auto) August 14, 2020 9:31am 0.3 % 0.4-1.3 [facility], [address] [place] [address] Basophils (%) (Auto) August 03, 2020 2:35pm 0.3 % 0.4-1.3 [facility], [address] [place] [address] Basophils (%) (Auto) July 01 020 9:40pm 0.4 % 0.4-1.3 [facility], [address] [place] [address] Basophils (%) (Auto) May 18, 2020 6:17am 0.3 % 0.4-1.3 [facility], [address] [place] [address] Basophils (%) (Auto) March 25 0 8:11am 0.5 % 0.4-1.3 [facility], [address] [place] [address] 64845 Basophils (%) (Auto) March 11, 2020 12:14pm 0.4 % 0.4-1.3 [facility], [address] [place] [address] 37727 Basophils (%) (Auto) March 02, 2020 11:00am 0.5 % 0.4-1.3 [facility], [address] [place] [address] 44008 Basophils (%) (Auto) February 26, 2020 10:02a m 0.4 % 0.4-1.3 [facility], [address] [place] [address] Basophils (%) (Auto) February 20, 2020 8:35a m 0.3 % 0.4-1.3 [facility], [address] [place] [address] Absolute Basophils (CBC) August 092019 7:35pm 0.0 # 0.0-0.2 [facility], [address] [place] [address] Absolute Basophils (CBC) August 142019 9:31am 0.0 # 0.0-0.2 [facility], [address] [place] [address] Absolute Basophils (CBC) August 032019 2:35pm 0.0 # 0.0-0.2 [facility], [address] [place] [address] Absolute Basophils (CBC) June 9:40pm 0.0 # 0.0-0.2 [facility], [address] [place] [address] Absolute Basophils (CBC) April 242019 6:17am 0.0 # 0.0-0.2 [facility], [address] [place] [address] Absolute Basophils (CBC) March 25, 2020 8:11am 0.1 # 0.0-0.2 [facility], [address] [place] [address] Absolute Basophils (CBC) March 11, 2020 12:14pm 0.0 # 0.0-0.2 [facility], [address] [place] [address] Absolute Basophils (CBC) March 02, 2020 11:00am 0.1 # 0.0-0.2 [facility], [address] [place] [address] Absolute Basophils (CBC) February 25 10:02am 0.0 # 0.0-0.2 [facility], [address] [place] [address] Absolute Basophils (CBC) February 20, 2020 8:35am 0.0 # 0.0-0.2 [facility], [address] [place] [address] Immature Granulocyte % (Auto) Dece er 2019 7:35pm 0.2 % 0-2 [facility], [address] [place] [address] 91825 Immature Granulocyte % (Auto) [facility] er 2019 9:31am 0.2 % 0-2 [facility], [address] [place] [address] 50098 Immature Granulocyte % (Auto) [facility] er 2019 2:35pm 0.2 % 0-2 [facility], [address] [place] [address] 17981 Immature Granulocyte % (Auto) [facility] er 2019 9:40pm 0.3 % 0-2 [facility], [address] [place] [address] 23154 Immature Granulocyte % (Auto) Sept2019 6:17am 0.2 % 0-2 [facility], [address] [place] [address] 66077 Immature Granulocyte % (Auto) March 25, 2020 8:11am 0.3 % 0-2 [facility], [address] [place] [address] 62065 Immature Granulocyte % (Auto) February 212019 12:14pm 0.4 % 0-2 [facility], [address] [place] [address] 67491 Immature Granulocyte % (Auto) February 202019 11:00am 0.3 % 0-2 [facility], [address] [place] [address] 99790 Immature Granulocyte % (Auto) February 252019 10:02am 0.3 % 0-2 [facility], [address] [place] [address] 88273 Immature Granulocyte % (Auto) January 232019 8:35am 0.2 % 0-2 [facility], [address] [place] [address] 41816 Absolute Immature Granulocyte (auto August 09, 2020 7:35pm 0.0 # 0-0.1 [facility], [address] [place] [address] 89214 Absolute Immature Granulocyte (auto August 14, 2020 9:31am 0.0 # 0-0.1 [facility], [address] [place] [address] 95445 Absolute Immature Granulocyte (auto August 03, 2020 2:35pm 0.0 # 0-0.1 [facility], [address] [place] [address] 16086 Absolute Immature Granulocyte (auto July 01, 2020 9:40pm 0.0 # 0-0.1 [facility], [address] [place] [address] 99423 Absolute Immature Granulocyte (auto May 18, 2020 6:17am 0.0 # 0-0.1 [facility], [address] [place] [address] 51308 Absolute Immature Granulocyte (auto March 25, 2020 8:11am 0.0 # 0-0.1 [facility], [address] [place] [address] 61931 Absolute Immature Granulocyte (auto March 11, 2020 12:14pm 0.0 # 0-0.1 [facility], [address] [place] [address] 33214 Absolute Immature Granulocyte (auto March 02, 2020 11:00am 0.0 # 0-0.1 [facility], [address] [place] [address] 97609 Absolute Immature Granulocyte (auto February 26, 2020 10:02am 0.0 # 0-0.1 [facility], [address] [place] [address] 22788 Absolute Immature Granulocyte (auto February 20, 2020 8:35am 0.0 # 0-0.1 [facility], [address] [place] [address] 05658 Add Manual Differential July 7:35pm No [facility], [address] [place] [address] 40800 Add Manual Differential July 9:31am No [facility], [address] [place] [address] 24625 Add Manual Differential July 2:35pm No [facility], [address] [place] [address] 96446 Add Manual Differential June 9:40pm No [facility], [address] [place] [address] 51713 Add Manual Differential May 182019 6:17am No [facility], [address] [place] [address] 70947 Add Manual Differential March 25, 2020 8:11am No [facility], [address] [place] [address] 15561 Add Manual Differential March 11 12:14pm No [facility], [address] [place] [address] 83906 Add Manual Differential March 02 11:00am No [facility], [address] [place] [address] 59482 Add Manual Differential February 25 10:02am No [facility], [address] [place] [address] 65368 Add Manual Differential February 19 8:35am No [facility], [address] [place] [address] 73253 Differential Total Cells Counted Sep tem2019 7:20pm 100 [facility], [address] [place] [address] 71550 Neutrophils (Manual) May 17, 2020 7:20pm 77 % 41-77 [facility], [address] [place] [address] 76845 Band Neutrophils May 17 0 7:20pm 3 % 0-5 [facility], [address] [place] [address] 50977 Lymphocytes (Manual) May 17, 2020 7:20pm 17 % 14-46 [facility], [address] [place] [address] 07119 Monocytes (Manual) May 17 7:20pm 3 % 4-12 [facility], [address] [place] [address] 67135 Platelet Estimate May 17 7:20pm Appears normal NORMAL [facility], [address] [place] [address] 89782 RBC Morphology 2 May 17 0 7:20pm Appears normal NORMAL [facility], [address] [place] [address] 20885 Urine Color May 18, 2020 12:15am Yellow [facility], [address] [place] [address] 19931 Urine Color February 20, 2020 8:40am Yellow [facility], [address] [place] [address] 01203 Urine Color August 09, 2020 8:06pm Yellow [facility], [address] [place] [address] 55886 Urine Color August 03, 2020 2:50pm Yellow [facility], [address] [place] [address] 85775 Urine Color July 01, 2020 9:30pm Yellow [facility], [address] [place] [address] 61744 Urine Color March 25, 2020 8:05am Yellow [facility], [address] [place] [address] 82641 Urine Color March 11, 2020 11:00am Yellow [facility], [address] [place] [address] 13316 Urine Color March 05, 2020 2:29pm Yellow [facility], [address] [place] [address] 23268 Urine Color March 02, 2020 10:48am Yellow [facility], [address] [place] [address] 07967 Urine Appearance August 09, 2020 8:06p m Clear CLEAR [facility], [address] [place] [address] 59725 Urine Appearance August 03, 2020 2:50p m Clear [facility], [address] [place] [address] 39283 Urine Appearance July 01, 2020 9:30pm Cloudy [facility], [address] [place] [address] 82942 Urine Appearance May 18 12:15am Clear [facility], [address] [place] [address] 26298 Urine Appearance March 25, 2020 8:05am Cloudy [facility], [address] [place] [address] 89431 Urine Appearance March 11, 2020 11:00am Cloudy [facility], [address] [place] [address] 34434 Urine Appearance March 05, 2020 2:29pm Cloudy [facility], [address] [place] [address] 41014 Urine Appearance March 02, 2020 10:48am Cloudy [facility], [address] [place] [address] 20854 Urine Appearance February 20, 2020 8:40am Turbid [facility], [address] [place] [address] 84323 Urine pH August 09, 2020 8:06pm 6.5 [facility], [address] [place] [address] 72970 Urine pH August 03, 2020 2:50pm 7.5 [facility], [address] [place] [address] 49523 Urine pH July 01, 2020 9:30pm 6.0 [facility], [address] [place] [address] 35135 Urine pH May 18, 2020 12:15am 6.0 [facility], [address] [place] [address] 87125 Urine pH March 25, 2020 8:05am 5.5 [facility], [address] [place] [address] 95484 Urine pH March 11, 2020 11:00am 6.5 [facility], [address] [place] [address] 97637 Urine pH March 05, 2020 2:29pm 6.0 [facility], [address] [place] [address] 56416 Urine pH March 02, 2020 10:48am 5.5 [facility], [address] [place] [address] 10942 Urine pH February 20, 2020 8:40am 5.5 [facility], [address] [place] [address] 54465 Urine Specific [place] July 8:06pm 1.022 [facility], [address] [place] [address] Urine Specific [place] July 2:50pm 1.020 [facility], [address] [place] [address] Urine Specific [place] July 01, 2020 9:30pm 1.026 [facility], [address] [place] [address] 77012 Urine Specific [place] April 12:15am >1.045 [facility], [address] [place] [address] Urine Specific [place] March 25 8:05am 1.025 [facility], [address] [place] [address] Urine Specific [place] March 11 11:00am 1.025 [facility], [address] [place] [address] Urine Specific [place] March 05 2:29pm 1.021 [facility], [address] [place] [address] Urine Specific [place] March 02 10:48am 1.025 [facility], [address] [place] [address] Urine Specific [place] February 19 8:40am 1.023 [facility], [address] [place] [address] Urine Leukocyte Esterase April 242019 12:15am Negative NEGATIVE [facility], [address] [place] [address] 02989 Urine Leukocyte Esterase February 20, 2020 8:40am Moderate NEGATIVE [facility], [address] [place] [address] 68962 Urine Leukocyte Esterase August 092019 8:06pm Small NEGATIVE A Culture has been added to this specimen per established criteria [facility], [address] [place] [address] Urine Leukocyte Esterase August 032019 2:50pm Small NEGATIVE A Culture has been added to this specimen per established criteria [facility], [address] [place] [address] 32999 Urine Leukocyte Esterase June 9:30pm Small NEGATIVE A Culture has been added to this specimen per established criteria [facility], [address] [place] [address] 04206 Urine Leukocyte Esterase March 25, 2020 8:05am Trace NEGATIVE A Culture has been added to this specimen per established criteria [facility], [address] [place] [address] 77983 Urine Leukocyte Esterase March 11, 2020 11:00am Trace NEGATIVE A Culture has been added to this specimen per established criteria [facility], [address] [place] [address] 85641 Urine Leukocyte Esterase March 05, 2020 2:29pm Trace NEGATIVE A Culture has been added to this specimen per established criteria [facility], [address] [place] [address] 92348 Urine Leukocyte Esterase March 02, 2020 10:48am Trace NEGATIVE A Culture has been added to this specimen per established criteria [facility], [address] [place] [address] 96656 Urine Nitrite May 18, 2020 12:15am Negative NEGATIVE [facility], [address] [place] [address] 63867 Urine Nitrite February 20, 2020 8:40am Negative NEGATIVE [facility], [address] [place] [address] 75810 Urine Nitrate August 09, 2020 8:06pm Negative NEGATIVE [facility], [address] [place] [address] 23010 Urine Nitrate August 03, 2020 2:50pm Negative NEGATIVE [facility], [address] [place] [address] Urine Nitrate July 01, 2020 9:30pm Negative NEGATIVE [facility], [address] [place] [address] 89296 Urine Nitrate March 25, 2020 8:05am Negative NEGATIVE [facility], [address] [place] [address] 78217 Urine Nitrate March 11, 2020 11:00am Negative NEGATIVE [facility], [address] [place] [address] 73036 Urine Nitrate March 05, 2020 2:29pm Negative NEGATIVE [facility], [address] [place] [address] Urine Nitrate March 02, 2020 10:48am Negative NEGATIVE [facility], [address] [place] [address] 08843 Urine Protein August 09, 2020 8:06pm Negative NEGATIVE [facility], [address] [place] [address] 05626 Urine Protein August 03, 2020 2:50pm Negative NEGATIVE [facility], [address] [place] [address] 14278 Urine Protein July 01, 2020 9:30pm Trace NEGATIVE [facility], [address] [place] [address] 04701 Urine Protein May 18, 2020 12:15am Negative NEGATIVE [facility], [address] [place] [address] 02066 Urine Protein March 25, 2020 8:05am Negative NEGATIVE [facility], [address] [place] [address] 16548 Urine Protein March 11, 2020 11:00am Trace NEGATIVE [facility], [address] [place] [address] 90979 Urine Protein March 05, 2020 2:29pm Trace NEGATIVE [facility], [address] [place] [address] 76449 Urine Protein March 02, 2020 10:48am Negative NEGATIVE [facility], [address] [place] [address] 25762 Urine Protein February 20, 2020 8:40am 30 mg/dl NEGATIVE [facility], [address] [place] [address] 62738 Urine Glucose August 09, 2020 8:06pm Negative NEGATIVE [facility], [address] [place] [address] 24371 Urine Glucose August 03, 2020 2:50pm Negative NEGATIVE [facility], [address] [place] [address] 61239 Urine Glucose July 01, 2020 9:30pm Negative NEGATIVE [facility], [address] [place] [address] 22290 Urine Glucose May 18, 2020 12:15am Negative NEGATIVE [facility], [address] [place] [address] 97063 Urine Glucose March 25, 2020 8:05am Negative NEGATIVE [facility], [address] [place] [address] 92972 Urine Glucose March 11, 2020 11:00am Negative NEGATIVE [facility], [address] [place] [address] 51288 Urine Glucose March 05, 2020 2:29pm Negative NEGATIVE [facility], [address] [place] [address] 13890 Urine Glucose March 02, 2020 10:48am Negative NEGATIVE [facility], [address] [place] [address] 47835 Urine Glucose February 20, 2020 8:40am Negative NEGATIVE [facility], [address] [place] [address] 34928 Urine Ketones August 09, 2020 8:06pm Negative NEGATIVE [facility], [address] [place] [address] 43223 Urine Ketones August 03, 2020 2:50pm Negative NEGATIVE [facility], [address] [place] [address] 68885 Urine Ketones July 01, 2020 9:30pm Trace NEGATIVE [facility], [address] [place] [address] 98384 Urine Ketones May 18, 2020 12:15am Negative NEGATIVE [facility], [address] [place] [address] [id number] Urine Ketones March 25, 2020 8:05am Trace NEGATIVE [facility], [address] [place] [address] [id number] Urine Ketones March 11, 2020 11:00am Trace NEGATIVE [facility], [address] [place] [address] Urine Ketones March 05, 2020 2:29pm Negative NEGATIVE [facility], [address] [place], [place] [id number] Urine Ketones March 02, 2020 10:48am Negative NEGATIVE [facility], [address] [place] [address] Urine Ketones February 20, 2020 8:40am Trace NEGATIVE [facility], [address] [place], [place] [id number] Urine Urobilinogen August 09 8:06pm 1 eu/dl [facility], [address] [place] [address] [id number] Urine Urobilinogen August 03 2:50pm 1 eu/dl [facility], [address] [place] [address] Urine Urobilinogen July 01 9:30pm 1 eu/dl [facility], [address] [place] [address] Urine Urobilinogen May 18 12:15am 0.2 eu/dl [facility], [address] [place] [address] [id number] Urine Urobilinogen March 25, 2020 8:05am 1 eu/dl [facility], [address] [place] [address] [id number] Urine Urobilinogen March 11, 2020 11:00am 1 eu/dl [facility], [address] [place] [address] Urine Urobilinogen March 05, 2020 2:29pm 0.2 eu/dl [facility], [address] [place] [address] Urine Urobilinogen March 02, 2020 10:48am 1 eu/dl [facility], [address] [place] [address] Urine Urobilinogen February 20, 2020 8:40am 1 eu/dl [facility], [address] [place] [address] [id number] Urine Bilirubin August 09, 2020 8:06pm Negative NEGATIVE [facility], [address] [place] [address] [id number] Urine Bilirubin August 03, 2020 2:50pm Negative NEGATIVE [facility], [address] [place] [address] Urine Bilirubin July 01, 2020 9:30pm Negative NEGATIVE [facility], [address] [place] [address] Urine Bilirubin May 18, 2020 12:15am Negative NEGATIVE [facility], [address] [place] [address] Urine Bilirubin March 25, 2020 8:05am Negative NEGATIVE [facility], [address] [place] [id number] Urine Bilirubin March 11, 2020 11:00am Negative NEGATIVE [facility], [address] [place] [address] [id number] Urine Bilirubin March 05, 2020 2:29pm Negative NEGATIVE [facility], [address] [place] [address] [id number] Urine Bilirubin March 02, 2020 10:48am Negative NEGATIVE [facility], [address] [place] [address] [id number] Urine Bilirubin February 20, 2020 8:40am Negative NEGATIVE [facility], [address] [place] [address] [id number] Urine Blood May 18, 2020 12:15am Negative NEGATIVE [facility], [address] [place] [address] Urine Blood February 20, 2020 8:40am Large NEGATIVE [facility], [address] [place] [address] [id number] Urine Blood August 09, 2020 8:06pm Moderate NEGATIVE A Culture has been added to this specimen per established criteria [facility], [address] [place] [address] 95175 Urine Blood August 03, 2020 2:50pm Small NEGATIVE [facility], [address] [place] [address] [id number] Urine Blood July 01, 2020 9:30pm Moderate NEGATIVE A Culture has been added to this specimen per established criteria [facility], [address] [place] [address] [id number] Urine Blood March 25, 2020 8:05am Negative NEGATIVE [facility], [address] [place] [address] [id number] Urine Blood March 11, 2020 11:00am Negative NEGATIVE [facility], [address] [place] [address] [id number] Urine Blood March 05, 2020 2:29pm Large NEGATIVE A Culture has been added to this specimen per established criteria [facility], [address] [place] [address] [id number] Urine Blood March 02, 2020 10:48am Trace NEGATIVE [facility], [address] [place] [address] 67553 Microscopic Urinalysis Comment Septe mb2019 12:15am No [facility], [address] [place] [address] Microscopic Urinalysis Comment February 20, 2020 8:40am Microscopic added [facility], [address] [place] [address] Add Urine Microanalysis July 8:06pm Microscopic added [facility], [address] [place] [address] Add Urine Microanalysis July 2:50pm Microscopic added [facility], [address] [place] [address] Add Urine Microanalysis June 9:30pm Microscopic added [facility], [address] [place] [address] Add Urine Microanalysis March 25, 2020 8:05am Microscopic added [facility], [address] [place] [address] Add Urine Microanalysis March 11 11:00am Microscopic added [facility], [address] [place] [address] Add Urine Microanalysis March 05, 020 2:29pm Microscopic added [facility], [address] [place] [address] Add Urine Microanalysis March 02, 020 10:48am Microscopic added [facility], [address] [place] [address] Urine RBC August 09, 2020 8:06pm 1-2 /hpf [facility], [address] [place] [address] Urine RBC August 03, 2020 2:50pm 6-10 /hpf [facility], [address] [place] [address] Urine RBC July 01, 2020 9:30pm Occasional /hpf [facility], [address] [place] [address] Urine RBC March 05, 2020 2:29pm 3-5 /hpf [facility], [address] [place] [address] Urine RBC March 02, 2020 10:48am Occasional /hpf [facility], [address] [place] [address] Urine WBC February 20, 2020 8:40am 20-30 /hpf [facility], [address] [place] [address] Urine WBC August 09, 2020 8:06pm 1-2 /hpf [facility], [address] [place] [address] Urine WBC August 03, 2020 2:50pm 20-30 /hpf [facility], [address] [place] [address] Urine WBC July 01, 2020 9:30pm Occasional /hpf [facility], [address] [place] [address] Urine WBC March 25, 2020 8:05am 3-5 /hpf [facility], [address] [place] [address] Urine WBC March 11, 2020 11:00am 3-5 /hpf [facility], [address] [place] [address] Urine WBC March 05, 2020 2:29pm Occasional /hpf [facility], [address] [place] [address] Urine WBC March 02, 2020 10:48am 3-5 /hpf [facility], [address] [place] [address] Urine Squamous Epithelial Cells Dece mb2019 8:06pm Many /hpf [facility], [address] [place] [address] Urine Squamous Epithelial Cells Dece mb2019 2:50pm Moderate /hpf [facility], [address] [place] [address] Urine Squamous Epithelial Cells Nove mber 2019 9:30pm Moderate /hpf [facility], [address] [place] [address] Urine Squamous Epithelial Cells Augu 2019 8:05am Many /hpf [facility], [address] [place] [address] Urine Squamous Epithelial Cells March 11, 2020 11:00am Many /hpf [facility], [address] [place] [address] Urine Squamous Epithelial Cells March 05, 2020 2:29pm Many /hpf [facility], [address] [place] [address] Urine Squamous Epithelial Cells March 02, 2020 10:48am Many /hpf [facility], [address] [place] [address] Urine Squamous Epithelial Cells February 20, 2020 8:40am Many /hpf [facility], [address] [place] [address] Urine Bacteria February 20, 2020 8:40am Moderate amount NEGATIVE [facility], [address] [place] [address] Urine Bacteria August 09, 2020 8:06pm Small amount NEGATIVE [facility], [address] [place] [address] Urine Bacteria August 03, 2020 2:50pm Small amount NEGATIVE [facility], [address] [place] [address] Urine Bacteria July 01, 2020 9:30pm Moderate amount NEGATIVE A Culture has been added to this specime n per established criteria [facility], [address] [place] [address] [id number] Urine Bacteria March 25, 2020 8:05am Small amount NEGATIVE [facility], [address] [place] [address] [id number] Urine Bacteria March 11, 2020 11:00am Small amount NEGATIVE [facility], [address] [place] [address] Urine Bacteria March 05, 2020 2:29pm Small amount NEGATIVE [facility], [address] [place] [address] Urine Bacteria March 02, 2020 10:48am Small amount NEGATIVE [facility], [address] [place] [address] [id number] Urine Mucus March 25, 2020 8:05am Small amount [facility], [address] [place] [address] [id number] Urine Sperm February 20, 2020 8:40am Few [facility], [address] [place] [address] Blood Urea Nitrogen August 09, 020 7:35pm 8 mg/dL 05-15 [facility], [address] [place] [address] Blood Urea Nitrogen August 03 020 2:35pm 5 mg/dL 05-15 [facility], [address] [place] [address] Blood Urea Nitrogen July 01 9:40pm 6 mg/dL 05-15 [facility], [address] [place] [address] Blood Urea Nitrogen May 18, 2020 6:17am 7 mg/dL 05-15 [facility], [address] [place] [address] Blood Urea Nitrogen March 25, 2020 8:11a m 7 mg/dL 05-15 [facility], [address] [place] [address] Blood Urea Nitrogen March 11, 2020 12:14p m 6 mg/dL 05-15 [facility], [address] [place] [address] Blood Urea Nitrogen March 02, 2020 11:00a m 8 mg/dL 05-15 [facility], [address] [place] [address] Blood Urea Nitrogen February 26, 2020 10:02am 7 mg/dL 05-15 [facility], [address] [place] [address] Blood Urea Nitrogen February 20, 2020 8:35am 6 mg/dL 05-15 [facility], [address] [place] [address] Sodium Level August 09, 2020 7:35pm 141 mmol/L 132-146 [facility], [address] [place] [address] 72131 Sodium Level August 03, 2020 2:35pm 138 mmol/L 132-146 [facility], [address] [place] [address] 41006 Sodium Level July 01, 2020 9:40pm 141 mmol/L 132-146 [facility], [address] [place] [address] 83260 Sodium Level May 18, 2020 6:17am 143 mmol/L 132-146 [facility], [address] [place] [address] 19410 Sodium Level March 25, 2020 8:11am 137 mmol/L 132-146 [facility], [address] [place] [address] 32387 Sodium Level March 11, 2020 12:14pm 140 mmol/L 132-146 [facility], [address] [place] [address] 38084 Sodium Level March 02, 2020 11:00am 139 mmol/L 132-146 [facility], [address] [place] [address] 73468 Sodium Level February 26, 2020 10:02am 138 mmol/L 132-146 [facility], [address] [place] [address] 18056 Sodium Level February 20, 2020 8:35am 138 mmol/L 132-146 [facility], [address] [place] [address] 19957 Potassium Level August 09, 2020 7:35pm 3.9 mmol/L 3.5-5.5 [facility], [address] [place] [address] 06920 Potassium Level August 03, 2020 2:35pm 4.6 mmol/L 3.5-5.5 [facility], [address] [place] [address] 73715 Potassium Level July 01, 2020 9:40pm 3.7 mmol/L 3.5-5.5 [facility], [address] [place] [address] 00364 Potassium Level May 18, 2020 6:17a m 3.8 mmol/L 3.5-5.5 [facility], [address] [place] [address] 35153 Potassium Level March 25, 2020 8:11am 3.7 mmol/L 3.5-5.5 [facility], [address] [place] [address] 08998 Potassium Level March 11, 2020 12:14pm 4.3 mmol/L 3.5-5.5 [facility], [address] [place] [address] 14557 Potassium Level March 02, 2020 11:00am 4.1 mmol/L 3.5-5.5 [facility], [address] [place] [address] 79928 Potassium Level February 26, 2020 10:02am 4.1 mmol/L 3.5-5.5 [facility], [address] [place] [address] 16446 Potassium Level February 20, 2020 8:35am 4.1 mmol/L 3.5-5.5 [facility], [address] [place] [address] 21902 Chloride Level August 09, 2020 7:35pm 111 mmol/l 99-109 [facility], [address] [place] [address] [id number] Chloride Level August 03, 2020 2:35pm 110 mmol/l 99-109 [facility], [address] [place] [address] 97426 Chloride Level July 01, 2020 9:40pm 110 mmol/l 99-109 [facility], [address] [place] [address] 88964 Chloride Level May 18, 2020 6:17am 113 mmol/l 99-109 [facility], [address] [place] [address] [id number] Chloride Level March 25, 2020 8:11am 111 mmol/l 99-109 [facility], [address] [place] [address] 40336 Chloride Level March 11, 2020 12:14pm 111 mmol/l 99-109 [facility], [address] [place] [address] 88716 Chloride Level March 02, 2020 11:00am 111 mmol/l 99-109 [facility], [address] [place] [address] 95454 Chloride Level February 26, 2020 10:02am 107 mmol/l 99-109 [facility], [address] [place] [address] 14124 Chloride Level February 20, 2020 8:35am 108 mmol/l 99-109 [facility], [address] [place] [address] 19542 Carbon Dioxide Level August 09, 2020 7:35pm 24 mmol/l -31 [facility], [address] [place] [address] [id number] Carbon Dioxide Level August 03, 2020 2:35pm 21 mmol/l -31 [facility], [address] [place] [address] 67083 Carbon Dioxide Level July 01 9:40pm 22 mmol/l 20-31 [facility], [address] [place] [address] 55885 Carbon Dioxide Level May 18, 2020 6:17am 25 mmol/l 20-31 [facility], [address] [place] [address] 23657 Carbon Dioxide Level March 25 0 8:11am 21 mmol/l 20-31 [facility], [address] [place] [address] 30557 Carbon Dioxide Level March 11, 2020 12:14pm 20 mmol/l 20-31 [facility], [address] [place] [address] 46097 Carbon Dioxide Level March 02, 2020 11:00am 20 mmol/l 20-31 [facility], [address] [place] [address] 22817 Carbon Dioxide Level February 26, 2020 10:02a m 22 mmol/l 20-31 [facility], [address] [place] [address] 86421 Carbon Dioxide Level February 20, 2020 8:35a m 21 mmol/l 20-31 [facility], [address] [place] [address] 55944 Anion Gap August 09, 2020 7:35pm 10 mmol/l 8-16 [facility], [address] [place] [address] 36702 Anion Gap August 03, 2020 2:35pm 12 mmol/l 8-16 [facility], [address] [place] [address] 57662 Anion Gap July 01, 2020 9:40pm 13 mmol/l 8-16 [facility], [address] [place] [address] 34360 Anion Gap May 18, 2020 6:17am 9 mmol/l 8-16 [facility], [address] [place] [address] 08273 Anion Gap March 25, 2020 8:11am 9 mmol/l 8-16 [facility], [address] [place] [address] 62150 Anion Gap March 11, 2020 12:14pm 13 mmol/l 8-16 [facility], [address] [place] [address] 52389 Anion Gap March 02, 2020 11:00am 12 mmol/l 8-16 [facility], [address] [place] [address] 87390 Anion Gap February 26, 2020 10:02am 13 mmol/l 8-16 [facility], [address] [place] [address] 02323 Anion Gap February 20, 2020 8:35am 13 mmol/l 8-16 [facility], [address] [place] [address] 70369 Glucose Level August 09, 2020 7:35pm 89 mg/dL 74-106 [facility], [address] [place] [address] 56464 Glucose Level August 03, 2020 2:35pm 87 mg/dL 74-106 [facility], [address] [place] [address] 99006 Glucose Level July 01, 2020 9:40pm 100 mg/dL 74-106 [facility], [address] [place] [address] 57635 Glucose Level May 18, 2020 6:17am 93 mg/dL 74-106 [facility], [address] [place] [address] 50637 Glucose Level March 25, 2020 8:11am 93 mg/dL 74-106 [facility], [address] [place] [address] 98197 Glucose Level March 11, 2020 12:14pm 88 mg/dL 74-106 [facility], [address] [place] [address] 85754 Glucose Level March 02, 2020 11:00am 91 mg/dL 74-106 [facility], [address] [place] [address] 50078 Glucose Level February 26, 2020 10:02am 92 mg/dL 74-106 [facility], [address] [place] [address] 88017 Glucose Level February 20, 2020 8:35am 98 mg/dL 74-106 [facility], [address] [place] [address] 67722 Creatinine August 09, 2020 7:35pm 1.3 mg/dL 0.5-1.1 [facility], [address] [place] [address] 51373 Creatinine August 03, 2020 2:35pm 0.8 mg/dL 0.5-1.1 [facility], [address] [place] [address] 25332 Creatinine July 01, 2020 9:40pm 0.9 mg/dL 0.5-1.1 [facility], [address] [place] [address] Creatinine May 18, 2020 6:17am 0.7 mg/dL 0.5-1.1 [facility], [address] [place] [address] 93476 Creatinine March 25, 2020 8:11am 0.9 mg/dL 0.5-1.1 [facility], [address] [place] [address] 38658 Creatinine March 11, 2020 12:14pm 1.2 mg/dL 0.5-1.1 [facility], [address] [place] [address] Creatinine March 02, 2020 11:00am 1.0 mg/dL 0.5-1.1 [facility], [address] [place] [address] Creatinine February 26, 2020 10:02am 1.0 mg/dL 0.5-1.1 [facility], [address] [place] [address] Creatinine February 20, 2020 8:35am 1.1 mg/dL 0.5-1.1 [facility], [address] [place] [address] 25054 Glomerular Filtration Rate Calc Dece mb2019 7:35pm 50 ml/min ABOVE 60 [facility], [address] [place] [address] 26014 Glomerular Filtration Rate Calc Dece 2019 2:35pm Greater than 60 ml/min ABOVE 60 [facility], [address] [place] [address] 99427 Glomerular Filtration Rate Calc Nove mb2019 9:40pm Greater than 60 ml/min ABOVE 60 [facility], [address] [place] [address] 38554 Glomerular Filtration Rate Calc Sept emb2019 6:17am Greater than 60 ml/min ABOVE 60 [facility], [address] [place] [address] 65852 Glomerular Filtration Rate Calc Augu 2019 8:11am Greater than 60 ml/min ABOVE 60 [facility], [address] [place] [address] 15764 Glomerular Filtration Rate Calc March 11, 2020 12:14pm 55 ml/min ABOVE 60 [facility], [address] [place] [address] 17466 Glomerular Filtration Rate Calc March 02, 2020 11:00am Greater than 60 ml/min ABOVE 60 [facility], [address] [place] [address] 01027 Glomerular Filtration Rate Calc February 26, 2020 10:02am Greater than 60 ml/min ABOVE 60 [facility], [address] [place] [address] 12720 Glomerular Filtration Rate Calc February 20, 2020 8:35am Greater than 60 ml/min ABOVE 60 [facility], [address] [place] [address] [id number] Alanine Aminotransferase (ALT/SGPT) August 09, 2020 7:35pm 30 U/L 10-49 [facility], [address] [place] [address] [id number] Alanine Aminotransferase (ALT/SGPT) August 03, 2020 2:35pm 42 U/L 10-49 [facility], [address] [place] [address] [id number] Alanine Aminotransferase (ALT/SGPT) July 01, 2020 9:40pm 43 U/L 10-49 [facility], [address] [place] [address] Alanine Aminotransferase (ALT/SGPT) May 18, 2020 6:17am 52 U/L 10-49 [facility], [address] [place] [address] [id number] Alanine Aminotransferase (ALT/SGPT) March 25, 2020 8:11am 27 U/L 10-49 [facility], [address] [place] [address] 22484 Alanine Aminotransferase (ALT/SGPT) March 11, 2020 12:14pm 29 U/L 10-49 [facility], [address] [place] [address] 99377 Alanine Aminotransferase (ALT/SGPT) March 02, 2020 11:00am 29 U/L 10-49 [facility], [address] [place] [address] 45919 Alanine Aminotransferase (ALT/SGPT) February 26, 2020 10:02am 33 U/L 10-49 [facility], [address] [place] [address] 74816 Alanine Aminotransferase (ALT/SGPT) February 20, 2020 8:35am 42 U/L 10-49 [facility], [address] [place] [address] 85025 Aspartate Amino Transf (AST/SGOT) De cember 2019 7:35pm 13 U/L 0-33 [facility], [address] [place] [address] [id number] Aspartate Amino Transf (AST/SGOT) De cember 2019 2:35pm 35 U/L 0-33 [facility], [address] [place] [address] 04413 Aspartate Amino Transf (AST/SGOT) No vember 2019 9:40pm 21 U/L 0-33 [facility], [address] [place] [address] 36199 Aspartate Amino Transf (AST/SGOT) Se ptember 2019 6:17am 27 U/L 0-33 [facility], [address] [place] [address] 89855 Aspartate Amino Transf (AST/SGOT) Au kem 2019 8:11am 15 U/L 0-33 [facility], [address] [place] [address] [id number] Aspartate Amino Transf (AST/SGOT) Ju ly 2019 12:14pm 17 U/L 0-33 [facility], [address] [place] [address] [id number] Aspartate Amino Transf (AST/SGOT) Ju ly 2019 11:00am 14 U/L 0-33 [facility], [address] [place] [address] [id number] Aspartate Amino Transf (AST/SGOT) Ju ly 2019 10:02am 17 U/L 0-33 [facility], [address] [place] [address] [id number] Aspartate Amino Transf (AST/SGOT) Ju ne 2019 8:35am 23 U/L 0-33 [facility], [address] [place] [address] 47622 Alkaline Phosphatase August 09, 2020 7:35pm 122 U/L 45-129 [facility], [address] [place] [address] Alkaline Phosphatase August 03, 2020 2:35pm 125 U/L 45-129 [facility], [address] [place] [address] 50059 Alkaline Phosphatase July 01 9:40pm 139 U/L 45-129 [facility], [address] [place] [address] 60948 Alkaline Phosphatase May 18, 2020 6:17am 110 U/L 45-129 [facility], [address] [place] [address] 94552 Alkaline Phosphatase March 25 0 8:11am 122 U/L 45-129 [facility], [address] [place] [address] 23502 Alkaline Phosphatase March 11, 2020 12:14pm 129 U/L 45-129 [facility], [address] [place] [address] 65996 Alkaline Phosphatase March 02, 2020 11:00am 136 U/L 45-129 [facility], [address] [place] [address] 40851 Alkaline Phosphatase February 26, 2020 10:02a m 147 U/L 45-129 [facility], [address] [place] [address] [id number] Alkaline Phosphatase February 20, 2020 8:35a m 149 U/L 45-129 [facility], [address] [place] [address] [id number] Amylase Level August 09, 2020 7:35pm 39 U/L 30-118 [facility], [address] [place] [address] [id number] Amylase Level August 03, 2020 2:35pm 31 U/L 30-118 [facility], [address] [place] [address] [id number] Amylase Level May 17, 2020 7:20pm 39 U/L 30-118 [facility], [address] [place] [address] [id number] Amylase Level March 25, 2020 8:11am 35 U/L 30-118 [facility], [address] [place] [address] [id number] Lipase August 09, 2020 7:35pm 90 U/L 73-393 [facility], [address] [place] [address] [id number] Lipase August 03, 2020 2:35pm 68 U/L 73-393 [facility], [address] [place] [address] [id number] Lipase May 17, 2020 7:20pm 89 U/L 73-393 [facility], [address] [place] [address] [id number] Lipase March 25, 2020 8:11am 97 U/L 73-393 [facility], [address] [place] [address] [id number] Lipase March 11, 2020 12:14pm 128 U/L 73-393 [facility], [address] [place] [address] [id number] Calcium Level August 09, 2020 7:35pm 9.5 mg/dL 8.5-10.1 [facility], [address] [place] [address] [id number] Calcium Level August 03, 2020 2:35pm 9.1 mg/dL 8.5-10.1 [facility], [address] [place] [address] [id number] Calcium Level July 01, 2020 9:40pm 9.2 mg/dL 8.5-10.1 [facility], [address] [place] [address] [id number] Calcium Level May 18, 2020 6:17am 8.5 mg/dL 8.5-10.1 Delta: 9.6 on 05/17/20-2019Repeated by: Roderick Cee 05/18/20 0824.Result Confirmation: 8.3 # mg/dL [facility], [address] [place] [address] [id number] Calcium Level March 25, 2020 8:11am 8.9 mg/dL 8.5-10.1 [facility], [address] [place] [address] [id number] Calcium Level March 11, 2020 12:14pm 8.6 mg/dL 8.5-10.1 [facility], [address] [place] [address] 51039 Calcium Level March 02, 2020 11:00am 9.0 mg/dL 8.5-10.1 [facility], [address] [place] [address] 98411 Calcium Level February 26, 2020 10:02am 9.0 mg/dL 8.5-10.1 [facility], [address] [place] [address] 97363 Calcium Level February 20, 2020 8:35am 9.4 mg/dL 8.5-10.1 [facility], [address] [place] [address] 04491 Total Bilirubin August 09, 2020 7:35pm 0.3 mg/dL 0.3-1.2 [facility], [address] [place] [address] 20477 Total Bilirubin August 03, 2020 2:35pm 0.4 mg/dL 0.3-1.2 [facility], [address] [place] [address] 16840 Total Bilirubin July 01, 2020 9:40pm 0.3 mg/dL 0.3-1.2 [facility], [address] [place] [address] 73458 Total Bilirubin May 18, 2020 6:17a m 0.3 mg/dL 0.3-1.2 [facility], [address] [place] [address] 40566 Total Bilirubin March 25, 2020 8:11am 0.2 mg/dL 0.3-1.2 [facility], [address] [place] [address] 72817 Total Bilirubin March 11, 2020 12:14pm 0.2 mg/dL 0.3-1.2 [facility], [address] [place] [address] 21748 Total Bilirubin March 02, 2020 11:00am 0.4 mg/dL 0.3-1.2 [facility], [address] [place] [address] 37748 Total Bilirubin February 26, 2020 10:02am 0.3 mg/dL 0.3-1.2 [facility], [address] [place] [address] 88620 Total Bilirubin February 20, 2020 8:35am 0.3 mg/dL 0.3-1.2 [facility], [address] [place] [address] Albumin August 09, 2020 7:35pm 3.6 g/dL 3.2-4.8 [facility], [address] [place] [address] Albumin August 03, 2020 2:35pm 3.5 g/dL 3.2-4.8 [facility], [address] [place] [address] 58466 Albumin July 01, 2020 9:40pm 3.5 g/dL 3.2-4.8 [facility], [address] [place] [address] Albumin May 18, 2020 6:17am 3.0 g/dL 3.2-4.8 [facility], [address] [place] [address] Albumin March 25, 2020 8:11am 3.0 g/dL 3.2-4.8 [facility], [address] [place] [address] Albumin March 11, 2020 12:14pm 3.2 g/dL 3.2-4.8 [facility], [address] [place] [address] Albumin March 02, 2020 11:00am 3.1 g/dL 3.2-4.8 [facility], [address] [place] [address] Albumin February 26, 2020 10:02am 3.4 g/dL 3.2-4.8 [facility], [address] [place] [address] Albumin February 20, 2020 8:35am 3.5 g/dL 3.2-4.8 [facility], [address] [place] [address] Serum Total Protein August 09, 020 7:35pm 8.2 g/dL 5.7-8.2 [facility], [address] [place] [address] Serum Total Protein August 03, 020 2:35pm 8.1 g/dL 5.7-8.2 [facility], [address] [place] [address] Serum Total Protein July 01 9:40pm 8.0 g/dL 5.7-8.2 [facility], [address] [place] [address] Serum Total Protein May 18, 2020 6:17am 6.6 g/dL 5.7-8.2 [facility], [address] [place] [address] 20275 Serum Total Protein March 25, 2020 8:11a m 7.7 g/dL 5.7-8.2 [facility], [address] [place] [address] 76395 Serum Total Protein March 11, 2020 12:14p m 7.6 g/dL 5.7-8.2 [facility], [address] [place] [address] 18271 Serum Total Protein March 02, 2020 11:00a m 7.9 g/dL 5.7-8.2 [facility], [address] [place] [address] 35274 Serum Total Protein February 26, 2020 10:02am 7.6 g/dL 5.7-8.2 [facility], [address] [place] [address] 64886 Serum Total Protein February 20, 2020 8:35am 7.9 g/dL 5.7-8.2 [facility], [address] [place] [address] 11971 Lactic Acid Level July 01, 2020 9:40p m 1.0 mmol/L 0.5-2.2 [facility], [address] [place] [address] 39936 Human Chorionic Gonadotropin, Quant August 09, 2020 7:35pm 18397 mIU/mL 0-10 APPROXIMATE GESTATION AGE APRROX IMATE HCG RANGE 0-1 WEEK 0 - 50 1-2 WEEKS 40 - 300 2-3 WEEKS 100 - 1,000 3-4 WEEKS 500 - 6,000 1-2 MONTHS 5,000 - 200,000 2-3 MONTHS 10,000 - 100,000 2ND TRIMESTER 3,000 - 50,000 3RD TRIMESTER 1,000 - 50,000 [facility], [address] [place] [address] 09473 Human Chorionic Gonadotropin, Quant August 14, 2020 9:31am 71605 mIU/mL 0-10 APPROXIMATE GESTATION AGE APRROX IMATE HCG RANGE 0-1 WEEK 0 - 50 1-2 WEEKS 40 - 300 2-3 WEEKS 100 - 1,000 3-4 WEEKS 500 - 6,000 1-2 MONTHS 5,000 - 200,000 2-3 MONTHS 10,000 - 100,000 2ND TRIMESTER 3,000 - 50,000 3RD TRIMESTER 1,000 - 50,000 [facility], [address] [place] [address] 31495 Human Chorionic Gonadotropin, Quant August 03, 2020 2:35pm 85154 mIU/mL 0-10 APPROXIMATE GESTATION AGE APRROX IMATE HCG RANGE 0-1 WEEK 0 - 50 1-2 WEEKS 40 - 300 2-3 WEEKS 100 - 1,000 3-4 WEEKS 500 - 6,000 1-2 MONTHS 5,000 - 200,000 2-3 MONTHS 10,000 - 100,000 2ND TRIMESTER 3,000 - 50,000 3RD TRIMESTER 1,000 - 50,000 [facility], [address] [place] [address] 58019 Human Chorionic Gonadotropin, Quant July 01, 2020 [...] TRIMESTER 1,000 - 50,000 [facility], [address] [place] [address] 64134 Thyroid Stimulating Hormone (TSH) Ju ly 2019 10:02am 1.84 uIU/mL 0.35-5.50 [facility], [address] [place] [address] 40628 Serum Test, Qualitative De cem2019 2:35pm Positive NEGATIVE [facility], [address] [place] [address] 43724 Serum Test, Qualitative No vember 2019 9:40pm Negative NEGATIVE [facility], [address] [place] [address] 51993 Serum Test, Qualitative Se ptember 2019 7:20pm Negative NEGATIVE [facility], [address] [place] [address] 98178 Serum Test, Qualitative Au kem 2019 8:11am Negative NEGATIVE [facility], [address] [place] [address] 68463 Urine HCG, Qualitative March 11 11:00am Negative NEGATIVE [facility], [address] [place] [address] 43084 Urine HCG, Qualitative March 02 11:00am Negative NEGATIVE [facility], [address] [place] [address] 29439 Urine HCG, Qualitative February 19 8:32am Negative NEGATIVE [facility], [address] [place] [address] 21770 Coronavirus (COVID-19)(PCR) March 252019 2:30pm Not detected Not Detec dee This test was developed and its performa nce characteristicsdetermined by [email or web address]. This test has not beenFDA cleared or approved. This test has been [facility] under an Emergency Use Authorization (EUA). This [...] (not detected) result in this assay.Performed at: [address] [id number] Director: Deisy Hdez MD, Phone: [phone] [facility] , [address] [place] [phone] Urine Random Creatinine February 27 7:19am 234.0 mg/dL THERE IS NO ESTABLISHED RANGE FOR RANDOM URINE CREATININE [place] [address] Urine Microalbumin February 28, 2020 7:19am 13.7 mg/L 0.0-29.9 [place] [address] Urine Microalbumin/Creatinine Ratio February 28, 2020 7:19am 5.8 ug/mg 0.0-30.[address] [address] Hemoglobin A1c February 26, 2020 10:02am 5.3 [...] glucose control. * High risk of developing ad terminal makeup operator complications such asretinopathy, nephropathy, neuropathy, cardiopathy, etc. Some danger of hypoglycemic reaction in Type I diabetics.Some glucose intolerant individuals and "Sub Clinical"diabetics may demonstrate HGBA1C levels in this area. [facility], [address] [place] [address] Estimated Average Glucose (eAG) February 26, 2020 10:02am 105 mg/dl An A1C of 7% - the goal of diabetic therapy - is equivalentto an EAG of 154 mg/dl. [facility], [address] [place] [address] Microbiology Results Procedure Source Result Collection Date/Time Result Date/Time Result Comment Performing Site Urine Culture Urine,voided August 09, 2020 8:06pm August 11, 2020 7:16am [facility], [address] [place] [address] Urine Culture Urine,clean catch August 03, 2020 2:50pm August 04, 2020 11:45am [facility], [address] [place] [address] Urine Culture Urine,voided July 01, 2020 9:30pm June 232019 7:24am [facility], [address] [place] [address] Urine Culture Urine,voided May 18, 2020 1:15am 2019 11:25am [facility], [address] [place] [address] Urine Culture Urine,clean catch March 25, 2020 9:05am March 26, 2020 1:36pm [facility], [address] [place] [address] Urine Culture Urine,clean catch March 11, 2020 12:00pm March 12, 2 020 1:24pm [facility], [address] [place] [address] Urine Culture Urine,voided March 05, 2020 3:29pm March 06, 9:18am [facility], [address] [place] [address] 24788 Urine Culture Urine,voided March 02, 2020 11:48am March 03, 2 020 8:26am [facility], [address] [place] [address] 48175 Streptococcus Rapid Screen Throat March 13, 2020 10:34am March 14, 020 8:58am [facility], [address] [place] [address] 48222 Streptococcus Rapid Screen Throat March 13, 2020 10:34am March 13, 020 11:04am [facility], [address] [place] [address] 69087 Blood Culture Venous blood No growth. July 01, 2020 9:40pm June 232019 9:46pm [facility], [address] [place], [place] [address] SARS-CoV-2 (PCR) Interpretation Naso pharyngeal No Organisms Detected July 01, 2020 9:45pm July 01, 2020 10:29pm [facility], [address] [place] [address] Nasal BinaxNow Covid - 19 Ag Negative July 30, 2020 9:45am July 302019 11:56am [facility], [address] [place] [address] Gastrointestinal Tract Panel (PCR) Stool C. difficile toxin detected May 17, 2020 3:03pm May 17, 2020 5:25pm [facility], [address] [place] [address] Respiratory Panel (PCR) Nasopharyngeal No Organisms Detected May 18, 2020 1:40am May 18, 2020 2:49am [facility], [address] [place] [address] Diagnostic Imaging Reports Report Dictated Date/Time Dictated By Status Radiology Report February 28, 2020 9:48am Oliverio Chen MD completed [place] [id number] [place] [address] [phone] NAME SEX PT STATUS ACCOUNT NUMBER ANNA MARIE BELTRAN REG REF [id number] ORDERING PHYSICIAN LOCATION MEDICAL RECORD NO. Jose Kramer DO [id number] ATTENDING PHYSICIAN DATE OF DATE OF EXAM/TIME [...] 02, 2020 1:53pm Warren Bourne MD completed [facility] [address] [place] [address] [phone] NAME SEX PT STATUS ACCOUNT NUMBER ANNA MARIE BELTRAN [facility] [id number] ORDERING PHYSICIAN LOCATION MEDICAL RECORD NO. Sameer Islas MD ER [id number] ATTENDING PHYSICIAN DATE OF DATE OF EXAM/TIME [...] Reported By Warren Bourne MD on 03/02/20 6731 Signed By Warren Bourne MD on 03/02/20 7841 Date Time CC: Jose Kramer DO; Warren Bourne MD Techn: MARCIN Trans Dt/Tm: Trans by: DT Prt Dt/Tm: : Total DLP = 1121.00 mGy-cm : Total Radiation Dose = 16.8150 mSv Lifetime Dose: 16.8150 mS v Radiology Report March 12, 2020 2:59pm Oliverio Chen MD completed [facility] [address] [place] [address] [phone] NAME SEX PT STATUS ACCOUNT NUMBER ANNA MARIE BELTRAN REG REF [id number] ORDERING PHYSICIAN LOCATION MEDICAL RECORD NO. Pola Meadows MD [id number] ATTENDING PHYSICIAN DATE OF DATE OF EXAM/TIME [...] Reported By Oliverio Chen MD on 03/12/20 0289 Signed By Oliverio Chen MD on 03/12/20 1501 Date Time CC: Jose Kramer DO; Oliverio Chen MD Techn: FREST Trans Dt/Tm: Trans by: DT Prt Dt/Tm: : Total DLP = 0.00 mGy-cm : Total Radiation Dose = 0.0000 mSv Lifetime Dose: 16.8150 mSv Radiology Report March 25, 2020 10:18am Oliverio Chen MD completed [address] [address] [phone] NAME SEX PT STATUS ACCOUNT NUMBER ANNA MARIE BELTRAN [facility] ER [id number] ORDERING PHYSICIAN LOCATION MEDICAL RECORD NO. Hiren Perez MD ER [id number] ATTENDING PHYSICIAN DATE OF DATE OF EXAM/TIME [...] May 17 9:41pm Ulisses Sethi MD completed [address] [address] [phone] NAME SEX PT STATUS ACCOUNT NUMBER BELTRANANNA MARIE Saavedra [facility] ER [id number] ORDERING PHYSICIAN LOCATION MEDICAL RECORD NO. Mikhail Sheriff MD ER [id number] ATTENDING PHYSICIAN DATE OF DATE OF EXAM/TIME [...] 2020 10:55p m Telly Robledo MD completed [place] [id number] [phone] NAME SEX PT STATUS ACCOUNT NUMBER ANNA MARIE BELTRAN [facility] ER [id number] ORDERING PHYSICIAN LOCATION MEDICAL RECORD NO. Mikhail Sheriff MD ER [id number] ATTENDING PHYSICIAN DATE OF DATE OF EXAM/TIME [...] 2020 11:07p m Niels Wilkerson MD completed [facility] [address] [place] [address] [phone] NAME SEX PT STATUS ACCOUNT NUMBER ANNA MARIE BELTRAN [facility] [id number] ORDERING PHYSICIAN LOCATION MEDICAL RECORD NO. Mikhail Sheriff MD ER [id number] ATTENDING PHYSICIAN DATE OF DATE OF EXAM/TIME [...] 2020 7:33p m Gibran Villa MD completed [facility] [address] [place] [id number] [phone] NAME SEX PT STATUS ACCOUNT NUMBER ANNA MARIE BELTRAN [facility] [id number] ORDERING PHYSICIAN LOCATION MEDICAL RECORD NO. Daljit Alex MD ER [id number] ATTENDING PHYSICIAN DATE OF DATE OF EXAM/TIME [...] 2020 7:59p m Telly Robledo MD completed [facility] [address] [place] [address] [phone] NAME SEX PT STATUS ACCOUNT NUMBER ANNA MARIE BELTRAN [facility] ER [id number] ORDERING PHYSICIAN LOCATION MEDICAL RECORD NO. Daljit Alex MD ER [id number] ATTENDING PHYSICIAN DATE OF DATE OF EXAM/TIME [...] 2020 7:34p m Gibran Villa MD completed [place] [address] [place] [address] [phone] NAME SEX PT STATUS ACCOUNT NUMBER ANNA MARIE BELTRAN [facility] ER [id number] ORDERING PHYSICIAN LOCATION MEDICAL RECORD NO. Daljit Alex MD ER [id number] ATTENDING PHYSICIAN DATE OF DATE OF EXAM/TIME Nicol Sebastian YELITZA 1995 08/[birth year]/201858 TYPE / EXAM US OB Ultrasound <14 weeks REASON FOR EXAM RLQ PAIN; R/O ECTOPIC [address] [address] [phone] NAME SEX PT STATUS ACCOUNT NUMBER ANNA MARIE BELTRAN [facility] ER [id number] ORDERING PHYSICIAN LOCATION MEDICAL RECORD NO. Daljit Alex MD ER [id number] ATTENDING PHYSICIAN DATE OF DATE OF EXAM/TIME [...] 2020 9:02p m Telly Robledo MD completed [place] [id number] [place], [place] [address] [phone] NAME SEX PT STATUS ACCOUNT NUMBER ANNA MARIE BELTRAN [facility] [id number] ORDERING PHYSICIAN LOCATION MEDICAL RECORD NO. Mikhail Sheriff MD ER [id number] ATTENDING PHYSICIAN DATE OF DATE OF EXAM/TIME Nicol Sebastian NP 1995 08/09/202038 TYPE / EXAM US OB Ultrasound <14 weeks REASON FOR EXAM Gen abd pain. +HCG ANNA MARIE BELTRAN [id number] 1995 ADDENDUM Clinical History/Indication for Exam: Gen [...] 14, 2020 11:09am Oliverio Chen MD completed [place] [address] [place] [address] [phone] NAME SEX PT STATUS ACCOUNT NUMBER ANNA MARIE BELTRAN REG REF [id number] ORDERING PHYSICIAN LOCATION MEDICAL RECORD NO. Jarret Herbert MD [id number] ATTENDING PHYSICIAN DATE OF DATE OF EXAM/TIME Nicol Sebastian NP 1995 08/14/20915 TYPE / EXAM US OB Ultrasound <14 weeks REASON FOR EXAM FOLLOW UP SUBCHOR/ EARLY COMPARISON: August 19, 2020 and 2019 FINDINGS: Gestation: Single [place]-rump length: Singlemm compatible with a Single week Single day gestational age. Yolk sac: Not seen No heart rate detected. Uterus: 8.5 x 4.6 x 7.0cm. A subchorionic hemorrhage is still seen. Average ultrasound age of 5 weeks 6 days. EDC: April 10, 2021. [place]-rump length: 3.4mm IMPRESSION: 1. Gestational sac measurements, unchanged. 2. Subarachnoid hemorrhage is still seen. 3. Linear intraamniotic echogenicity, possibly the pole. No heart rate detected. Reported By Oliverio Chen MD on 08/14/20 1109 Signed By Oliverio Chen MD on 08/14/20 1114 Date Time CC: Nicol Sebastian; Oliverio Chen MD Techn: FREST Trans Dt/Tm: Trans by: DT Prt Dt/Tm: 3597-0883: Total DLP = 0.00 mGy-cm 9554-7055: Total Radiation Dose = 0.0000 mSv Lifetime Dose: 56.7900 mSv Radiology Report August 09, 2020 9:05p vivian Robledo MD completed [facility] [address] [place] [address] [phone] NAME SEX PT STATUS ACCOUNT NUMBER ANNA MARIE BELTRAN [facility] ER [id number] ORDERING PHYSICIAN LOCATION MEDICAL RECORD NO. Mikhail Sheriff MD ER [id number] ATTENDING PHYSICIAN DATE OF DATE OF EXAM/TIME RomuloNicol YELITZA 1995 08/09/202039 TYPE / EXAM US OB Transvaginal REASON FOR EXAM PAIN [place] [id number] [place] [address] [phone] NAME SEX PT STATUS ACCOUNT NUMBER ANNA MARIE BELTRAN [facility] ER [id number] ORDERING PHYSICIAN LOCATION MEDICAL RECORD NO. Mikhail Sheriff MD ER [id number] ATTENDING PHYSICIAN DATE OF DATE OF EXAM/TIME Nicol Sebastian NP 1995 08/09/202038 TYPE / EXAM US OB Ultrasound <14 weeks REASON FOR EXAM Gen abd pain. +HCG ANNA MARIE BELTRAN [id number] 1995 ADDENDUM Clinical History/Indication for Exam: Gen [...] Response Recorded Date/Time Advanced Directive No 2019 6:39pm MOLST No July 17, 2020 12:04pm Advance Directives on File or in chart? No July 17, 2020 12:04pm Does Patient have a DNR? 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 BLEED Reason for Visit Anxiety Depression GERD (gastroesophageal [...] Bianka Sen MD Departed Physician/Provider Office Visit -[facility] February 20, 2020 10:22am February 20, 2020 11:42am Jose Kramer DO Registered Referred -Laboratory February 26, 2020 9:54am Jose Kramer DO Registered Referred -Ultrasound February 28, 2020 6:57am Jose Kramer DO Departed Emergency -Emergency Room ER March 02, 2020 10:34am March 02, 2020 1:45pm null Departed Emergency -Emergency Room ER March 05, 2020 2:01pm March 05, 2020 4:29pm null Departed Physician/Provider Office Visit -[facility] March 11, 2020 9:28am March 11, 2020 10:13am Trice Aj NP Departed Physician/Provider Office Visit -[facility] March 11, 2020 10:17am March 11, 2020 11:49am Pola Meadows MD Registered Referred -Laboratory March 11, 2020 11:56am Trice Aj NP Registered Referred -Ultrasound March 12, 2020 11:38am Pola Meadows MD Departed Physician/Provider Office Visit -[facility] March 12, 2020 12:22pm March 12, 2020 2:13pm Trice Aj NP Departed Emergency -Emergency Room ER March 13, 2020 9:18am March 13, 2020 10:18am null Departed Emergency -Emergency Room ER March 25, 2020 7:55am March 25, 2020 9:27am null Departed Physician/Provider Office Visit -[facility] March 25, 2020 2:51pm March 25, 2020 2:52pm Nathalie Pace Registered Referred -Lab Drop Off March 25, 2020 3:08pm Nathalie Pace Departed Physician/Provider Office Visit -[facility] March 28, 2020 7:01am March 28, 2020 7:47am Trice Aj NP Registered Outpatient -[facility] Internal Medicine April 05, 2020 8:29am Trice Aj NP Registered Referred -Laboratory May 17, 2020 1:48pm Trice longoria NP Discharged Inpatient -[facility] May 18, 2020 12:18am May 18, 2020 2:40pm Tad Menendez MD Registered Outpatient -[facility] May 20, 2020 2:25pm Amara Garcia RN Departed Physician/Provider Office Visit -[facility] May 23, 2020 7:51am May 23, 2020 8:35am Trice Aj NP Departed Physician/Provider Office Visit -[facility] May 30, 2020 9:25am May 30, 2020 11:56am Nicol Sebastian NP Departed Physician/Provider Office Visit -[facility] June 10, 2020 8:26am June 10, 2020 8:58am Jarret Herbert MD Departed Physician/Provider Office Visit -[facility] June 28, 2020 3:47pm June 28, 2020 4:33pm Nicol Sebastian NP Departed Physician/Provider Office Visit -[facility] July 01, 2020 9:04am July 01, 2020 11:04am Nicol Sebastian NP Registered Referred -Laboratory July 01, 2020 9:47am Kiersten Schulz DO Departed Emergency -Emergency Room ER July 01, 2020 8:40pm July 02, 2020 12:20am null Departed Physician/Provider Office Visit -[facility] July 04, 2020 11:14am July 04, 2020 12:47pm Nicol Sebastian NP Departed Physician/Provider Office Visit -[facility] July 25, 2020 9:54am July 25, 2020 10:57am Nicol Sebastian NP Registered Referred -Laboratory July 30, 2020 9:45am Jaki Elias MD Departed Emergency -Emergency Room ER August 03, 2020 1:29pm August 03, 2020 8:21pm null Departed Emergency -Emergency Room ER August 09, 2020 6:19pm August 10, 2020 5:45am null Registered Referred -Ultrasound August 14, 2020 9:29am Jarret jade MD Departed Physician/Provider Office Visit -[facility] August 14, 2020 9:41am August 14, 2020 11:45am Jarret Herbert MD Departed Physician/Provider Office Visit -[facility] General Surgery August 20, 2020 9:00am August 20, 2020 9:20am Barrett Sparks MD Departed Physician/Provider Office Visit -[facility] August 21, 2020 10:25am August 21, 2020 11:32am Jarret Herbert MD Registered Referred -Ultrasound August 21, 2020 11:17am Jarret jacobson MD Recent Diagnosis Onset Date Anxiety Depression [...] Response Neil e Recorded Functional Status Complete [place] May 18, 2020 1:30am Goals Goals may be documented in an alternate section. Immunizations No Immunization Information Available Mental Status Observation Response Neil e Recorded Impairments No impairments or barriers August 09, 2020 6:20pm Cognitive Status Normal Cognition May 18, 2020 1:30am Medical Equipment No Medical Equipment Information available Insurance Providers Guarantor ANNA MARIE BELTRAN Address [address] [place] [address] Contact Info. Home Phone: Payer Policy Id Coverage Id Subscriber's Name Subscriber Id Effective Date Expiration Date [facility] [id number] ANNA MARIE BELTRAN [id number] [facility] [id number] ANNA MARIE BELTRAN [id number] [facility] [id number] ANNA MARIE BELTRAN [id number] MEDICAID [id number] ANNA MARIE BELTRAN [id number] Self Pay Self N/A Plan of Treatment [...] aware of the patient as well. Awaiting press writer referral. Increase diet and exercise. Referral to [facility] for chronic inflammation. Elevate legs. 26 [...] . July 26, 2020 for upper GI. [employer] rice, applesauce, bananas, and toast. Resolved. [...] that she has had counseling in the [facility], but symptoms are worse at this time, d/t recent move to [place]. Will continue current meds and will refer to psych. Tap Puller appt with behavioral health this week. Taking [...] palpation without abnormal physical find ings. Doubt [employer] cause but send urine culture in case. Plan abdominal/pelvic ultrasound. Mily batista declined pelvic exam and stressed that this does not allow us to fully evaluate her complaints. Follow-up 2 weeks after ultrasound. If pain continues with noted GI changes, consider referral yoana ck to gastroenterology. Patient is requesting to [...] Provider Provider Conta ct Information Provider Address c diff - treated with PO vancomycin Trice dimas NP Email: [email or web address] Work Phone: [facility] [phone] [phone] Call for an appointment to be seen in the next 48 hours Jose Kramer DO Email: [email or web address] Phone: [phone] [facility] [phone] Call for an appointment for follow-up for Wednesday or Wednesday Jose Kramer DO Email: [email or web address] Phone: [phone] [facility] [phone] Future Procedures Future procedure information is unavailable Future Medications Future medication information is unavailable Patient Instructions Urinary Tract Infection in Women (DC) Abdominal Pain (ED) Urinary Tract Infection in Women (ED) Pharyngitis (ED) Upper Respiratory Infection (ED) High Fiber Diet (DC) C. Diff (Clostridioides Difficile) Infection (DC) Nutrition Tips for Relief of Diarrhea (DC) Social History Smoking Status Status Date of Observation Never smoker August 09, 2020 7:3 0pm Observation Status Date of Observation Patient currently August 03, 2020 Observation Status Observation Response Neil e of Response Smoking Status Never smoker August 09, 2020 7:30pm Assigned Sex Female Vital Signs Vital Reading [...] 18, 2020 12:45pm Respiratory rate 20 /min 08-15May 18, 2020 12:45pm Oxygen saturation by Pulse [...]
--- OUTSIDE RECORDS SUMMARY | 2020-10-18 09:51 | CCD | Continuity of Care Document ---
Author Author [facility] Organization [facility] Address [address] [place] [address] Phone Support Name Relationship Address Phone Jose Kramer PRS [address] [place] [address] Rachel Senn Bianka PRS [address] [place] [address] John Islas PRS [address] [place] [address] [place] [address] Pola Meadows [facility] [address] Pola Meadows PRS [address] [place] [address] Hiren Perez PRS [address] [place] [address] Nathalie Pace PRS [address] [place] [address] Verónica Sheriff PRS [address] [place] [address] Tad Menendez PRS [address] [place] [address] Amara Garcia PRS Unknown Unavailable Nicol Sebastian PRS [address] [place] [address] Darnell Herbert PRS [address] [place] [address] Kiersten Schulz PRS [address] [place] [address] [place] [address] Daljit Alex PRS [address] [place] [address] Niels Valdez PRS [address] [place] [address] Barrett Sparks PRS [address] [place] [address] Allergies, Adverse Reactions, Alerts Allergen Type Severity Reaction Last Updated Verified Status cephalexin Allergy Moder ate Hives August 10, 2020 12:41am Yes Active latex Allergy Moderate Rash August 10, 2020 12:41am Yes Active ondansetron Allergy Mode rate Hives August 10, 2020 12:41am Yes Active sulfamethoxazole Allergy Moderate Hives August 10, 2020 12:41am Yes Active trimethoprim Allergy Mod erate Hives August 10, 2020 12:41am Yes Active Medications Medication Status Dose Units [...] August 14, 2020 9:16am completed US OB Transvaginal August 03 6:58pm [...] 01, 2020 completed SARS-CoV-2 (PCR) Interpretation Prasanth mbkarina [address] Abd/pel w/ contrast April [...] 10e3/uL 4.45-10.71 [facility], [address] [place] [address] 26393 White Blood Count August 14 0 9:31am 9.8 10e3/uL 4.45-10.71 [facility], [address] [place] [address] White Blood Count August 03 0 2:35pm 8.6 10e3/uL 4.45-10.71 [facility], [address] [place] [address] White Blood Count July 01, 2020 9:40p m 11.2 10e3/uL 4.45-10.71 [facility], [address] [place] [address] White Blood Count May 18 6:17am 9.3 10e3/uL 4.45-10.71 [facility], [address] [place] [address] White Blood Count March 25, 2020 8:11am 10.8 10e3/uL 4.45-10.71 [facility], [address] [place] [address] White Blood Count March 11, 2020 12:14pm 11.3 10e3/uL 4.45-10.71 [facility], [address] [place] [address] White Blood Count March 02, 2020 11:00am 10.3 10e3/uL 4.45-10.71 [facility], [address] [place] [address] White Blood Count February 26, 2020 10:02am 9.8 10e3/uL 4.45-10.71 [facility], [address] [place] [address] White Blood Count February 20, 2020 8:35am 8.8 10e3/uL 4.45-10.71 [facility], [address] [place] [address] Red Blood Count August 09, 2020 7:35pm 4.49 10e6/uL 4.20-5.40 [facility], [address] [place] [address] Red Blood Count August 14, 2020 9:31am 4.57 10e6/uL 4.20-5.40 [facility], [address] [place] [address] Red Blood Count August 03, 2020 2:35pm 4.47 10e6/uL 4.20-5.40 [facility], [address] [place] [address] Red Blood Count July 01, 2020 9:40pm 4.51 10e6/uL 4.20-5.40 [facility], [address] [place] [address] Red Blood Count May 18, 2020 6:17a m 4.10 10e6/uL 4.20-5.40 [facility], [address] [place] [address] Red Blood Count March 25, 2020 8:11am 4.25 10e6/uL 4.20-5.40 [facility], [address] [place] [address] Red Blood Count March 11, 2020 12:14pm 4.58 10e6/uL 4.20-5.40 [facility], [address] [place] [address] Red Blood Count March 02, 2020 11:00am 4.52 10e6/uL 4.20-5.40 [facility], [address] [place] [address] Red Blood Count February 26, 2020 10:02am 4.84 10e6/uL 4.20-5.40 [facility], [address] [place] [address] Red Blood Count February 20, 2020 8:35am 5.02 10e6/uL 4.20-5.40 [facility], [address] [place] [address] Hemoglobin August 09, 2020 7:35pm 11.4 g/dL 10.7-15.4 [facility], [address] [place] [address] Hemoglobin August 14, 2020 9:31am 11.4 g/dL 10.7-15.4 [facility], [address] [place] [address] Hemoglobin August 03, 2020 2:35pm 11.5 g/dL 10.7-15.4 [facility], [address] [place] [address] Hemoglobin July 01, 2020 9:40pm 11.8 g/dL 10.7-15.4 [facility], [address] [place] [address] Hemoglobin May 18, 2020 6:17am 10.9 g/dL 10.7-15.4 [facility], [address] [place] [address] Hemoglobin March 25, 2020 8:11am 11.5 g/dL 10.7-15.4 [facility], [address] [place] [address] Hemoglobin March 11, 2020 12:14pm 12.4 g/dL 10.7-15.4 [facility], [address] [place] [address] Hemoglobin March 02, 2020 11:00am 12.1 g/dL 10.7-15.4 [facility], [address] [place] [address] Hemoglobin February 26, 2020 10:02am 13.0 g/dL 10.7-15.4 [facility], [address] [place] [address] 39514 Hemoglobin February 20, 2020 8:35am 13.4 g/dL 10.7-15.4 [facility], [address] [place] [address] 09326 Hematocrit August 09, 2020 7:35pm 36.1 % 37-47 [facility], [address] [place] [address] 11323 Hematocrit August 14, 2020 9:31am 36.3 % 37-47 [facility], [address] [place] [address] 24685 Hematocrit August 03, 2020 2:35pm 36.1 % 37-47 [facility], [address] [place] [address] 45753 Hematocrit July 01, 2020 9:40pm 36.6 % 37-47 [facility], [address] [place] [address] 23972 Hematocrit May 18, 2020 6:17am 34.1 % 37-47 [facility], [address] [place] [address] 96419 Hematocrit March 25, 2020 8:11am 34.7 % 37-47 [facility], [address] [place] [address] 81724 Hematocrit March 11, 2020 12:14pm 37.2 % 37-47 [facility], [address] [place] [address] 42961 Hematocrit March 02, 2020 11:00am 36.9 % 37-47 [facility], [address] [place] [address] 74020 Hematocrit February 26, 2020 10:02am 39.4 % 37-47 [facility], [address] [place] [address] 18257 Hematocrit February 20, 2020 8:35am 41.0 % 37-47 [facility], [address] [place] [address] 92820 Mean Corpuscular Volume July 7:35pm 80.4 fl 80-96 [facility], [address] [place] [address] 13629 Mean Corpuscular Volume July 9:31am 79.4 fl 80-96 [facility], [address] [place] [address] 38144 Mean Corpuscular Volume July 2:35pm 80.8 fl 80-96 [facility], [address] [place] [address] 00440 Mean Corpuscular Volume June 9:40pm 81.2 fl [facility], [address] [place] [address] 13666 Mean Corpuscular Volume May 182019 6:17am 83.2 fl [facility], [address] [place] [address] 51838 Mean Corpuscular Volume March 25, 2020 8:11am 81.[address] [place] [address] [facility]ORATORY, [address] [place] [address] 67212 Mean Corpuscular Volume March 11 020 12:14pm 81.2 fl [facility], [address] [place] [address] 38568 Mean Corpuscular Volume March 02 020 11:00am 81.6 fl [facility], [address] [place] [address] 14209 Mean Corpuscular Volume February 25 10:02am 81.4 fl [facility], [address] [place] [address] 03861 Mean Corpuscular Volume February 19 020 8:35am 81.7 fl [facility], [address] [place] [address] 92005 Mean Corpuscular Hemoglobin August 09, 2020 7:35pm 25.4 pg 27-31 [facility], [address] [place] [address] 79965 Mean Corpuscular Hemoglobin August 14, 2020 9:31am 24.9 pg 27-31 [facility], [address] [place] [address] 36682 Mean Corpuscular Hemoglobin August 03, 2020 2:35pm 25.7 pg 27-31 [facility], [address] [place] [address] 14433 Mean Corpuscular Hemoglobin July 01, 2020 9:40pm 26.2 pg 27-31 [facility], [address] [place] [address] 72862 Mean Corpuscular Hemoglobin 2019 6:17am 26.6 pg 27-31 [facility], [address] [place] [address] 44006 Mean Corpuscular Hemoglobin March 252019 8:11am 27.1 pg 27-31 [facility], [address] [place] [address] 21923 Mean Corpuscular Hemoglobin February 12:14pm 27.1 pg 27-31 [facility], [address] [place] [address] 99115 Mean Corpuscular Hemoglobin February 11:00am 26.[address] [facility], [address] [place] [address] 84646 Mean Corpuscular Hemoglobin February 10:02am 26.[address] [facility], [address] [place] [address] 97436 Mean Corpuscular Hemoglobin January 8:35am 26.[address] [facility], [address] [place] [address] 64224 Mean Corpuscular Hemoglobin Concent August 09, 2020 7:35pm 31.6 g/dl [facility], [address] [place] [address] 41401 Mean Corpuscular Hemoglobin Concent August 14, 2020 9:31am 31.4 g/dl [facility], [address] [place] [address] 14257 Mean Corpuscular Hemoglobin Concent August 03, 2020 2:35pm 31.9 g/dl [address] [place] [address] LABORATORY, [address] [place] [address] 84989 Mean Corpuscular Hemoglobin Concent July 01, 2020 9:40pm 32.2 g/dl [address] [place] [address] LABORATORY, [address] [place] [address] 17261 Mean Corpuscular Hemoglobin Concent May 18, 2020 6:17am 32.0 g/dl [address] [facility], [address] [place] [address] 74076 Mean Corpuscular Hemoglobin Concent March 25, 2020 8:11am 33.1 g/dl [address] [place] [address] LABORATORY, [address] [place] [address] 63411 Mean Corpuscular Hemoglobin Concent March 11, 2020 12:14pm 33.3 g/dl [address] [place] [address] [facility]ORATORY, [address] [place] [address] 33255 Mean Corpuscular Hemoglobin Concent March 02, 2020 11:00am 32.8 g/dl [address] [place] [address] [facility]ORATORY, [address] [place] [address] 92456 Mean Corpuscular Hemoglobin Concent February 26, 2020 10:02am 33.0 g/dl [address] [place] [address] [facility]ORATORY, [address] [place] [address] 75634 Mean Corpuscular Hemoglobin Concent February 20, 2020 8:35am 32.7 g/dl 33-37 [facility], [address] [place] [address] 80239 Red Cell Distribution Width August 09, 2020 7:35pm 14 % 11-15 [facility], [address] [place] [address] 07090 Red Cell Distribution Width August 14, 2020 9:31am 15 % 11-15 [facility], [address] [place] [address] 29312 Red Cell Distribution Width August 03, 2020 2:35pm 14 % 11-15 [facility], [address] [place] [address] 20054 Red Cell Distribution Width July 01, 2020 9:40pm 14 % 11-15 [facility], [address] [place] [address] 96114 Red Cell Distribution Width 2019 6:17am 14 % 11-15 [facility], [address] [place] [address] 75788 Red Cell Distribution Width March 252019 8:11am 15 % 11-15 [facility], [address] [place] [address] 14652 Red Cell Distribution Width February 12:14pm 15 % 11-15 [facility], [address] [place] [address] 50781 Red Cell Distribution Width February 11:00am 14 % 11-15 [facility], [address] [place] [address] 67589 Red Cell Distribution Width February 10:02am 14 % 11-15 [facility], [address] [place] [address] 02590 Red Cell Distribution Width January 8:35am 15 % 11-15 [facility], [address] [place] [address] 91636 Platelet Count August 09, 2020 7:35pm 423 10e3/ul 130-472 [facility], [address] [place] [address] 51843 Platelet Count August 14, 2020 9:31am 429 10e3/ul 130-472 [facility], [address] [place] [address] 06489 Platelet Count August 03, 2020 2:35pm 372 10e3/ul 130-472 [facility], [address] [place] [address] 31643 Platelet Count July 01, 2020 9:40pm 392 10e3/ul 130-472 [facility], [address] [place] [address] Platelet Count May 18, 2020 6:17am 332 10e3/ul 130-472 [facility], [address] [place] [address] Platelet Count March 25, 2020 8:11am 395 10e3/ul 130-472 [facility], [address] [place] [address] Platelet Count March 11, 2020 12:14pm 460 10e3/ul 130-472 [facility], [address] [place] [address] Platelet Count March 02, 2020 11:00am 410 10e3/ul 130-472 [facility], [address] [place] [address] Platelet Count February 26, 2020 10:02am 436 10e3/ul 130-472 [facility], [address] [place] [address] Platelet Count February 20, 2020 8:35am 479 10e3/ul 130-472 [facility], [address] [place] [address] Mean Platelet Volume August 09, 2020 7:35pm 8.9 fl 9.1-13.1 [facility], [address] [place] [address] Mean Platelet Volume August 14, 2020 9:31am 8.9 fl 9.1-13.1 [facility], [address] [place] [address] Mean Platelet Volume August 03, 2020 2:35pm 9.0 fl 9.1-13.1 [facility], [address] [place] [address] Mean Platelet Volume July 01 020 9:40pm 8.6 fl 9.1-13.1 [facility], [address] [place] [address] Mean Platelet Volume May 18, 2020 6:17am 8.6 fl 9.1-13.1 [facility], [address] [place] [address] Mean Platelet Volume March 25 0 8:11am 8.3 fl 9.1-13.1 [facility], [address] [place] [address] Mean Platelet Volume March 11, 2020 12:14pm 8.4 fl 9.1-13.1 [facility], [address] [place] [address] Mean Platelet Volume March 02, 2020 11:00am 8.6 fl 9.1-13.1 [facility], [address] [place] [address] 78038 Mean Platelet Volume February 26, 2020 10:02a m 8.7 fl 9.1-13.1 [facility], [address] [place] [address] 75365 Mean Platelet Volume February 20, 2020 8:35a m 8.7 fl 9.1-13.1 [facility], [address] [place] [address] 47323 Neutrophils (%) (Auto) July 7:35pm 71.3 % [address] [place] [address] LABORATORY, [address] [place] [address] 82721 Neutrophils (%) (Auto) July 9:31am 63.7 % [address] [place] [address] LABORATORY, [address] [place] [address] 37784 Neutrophils (%) (Auto) July 2:35pm 68.8 % [address] [place] [address], [address] [place] [address] 67274 Neutrophils (%) (Auto) July 01, 2020 9:40pm 66.3 % [address] [place] [address], [address] [place] [address] 29884 Neutrophils (%) (Auto) April 6:17am 66.1 % [address] [place] [address] [facility]ORATORY, [address] [place] [address] 19925 Neutrophils (%) (Auto) March 25, 020 8:11am 58.4 % [address] [place] [address], [address] [place] [address] 46984 Neutrophils (%) (Auto) March 11 12:14pm 72.2 % [address] [place] [address] LABORATORY, [address] [place] [address] 43177 Neutrophils (%) (Auto) March 02 11:00am 65.4 % [address] [place] [address] LABORATORY, [address] [place] [address] 34912 Neutrophils (%) (Auto) February 25 0 10:02am 62.6 % [address] [place] [address] LABORATORY, [address] [place] [address] 81726 Neutrophils (%) (Auto) February 19 8:35am 62.4 % [address] [place] [address] LABORATORY, [address] [place] [address] 20119 Absolute Neutrophil August 09, 020 7:35pm 7.0 # 1.7-7.6 [facility], [address] [place] [address] 51721 Absolute Neutrophil August 14, 020 9:31am 6.2 # 1.7-7.6 [facility], [address] [place] [address] Absolute Neutrophil August 03, 020 2:35pm 5.9 # 1.7-7.6 [facility], [address] [place] [address] Absolute Neutrophil July 01 9:40pm 7.5 # 1.7-7.6 [facility], [address] [place] [address] Absolute Neutrophil May 18, 2020 6:17am 6.1 # 1.7-7.6 [facility], [address] [place] [address] Absolute Neutrophil March 25, 2020 8:11a m 6.3 # 1.7-7.6 [facility], [address] [place] [address] 44333 Absolute Neutrophil March 11, 2020 12:14p m 8.1 # 1.7-7.6 [facility], [address] [place] [address] 91692 Absolute Neutrophil March 02, 2020 11:00a m 6.7 # 1.7-7.6 [facility], [address] [place] [address] Absolute Neutrophil February 26, 2020 10:02am 6.1 # 1.7-7.6 [facility], [address] [place] [address] Absolute Neutrophil February 20, 2020 8:35am 5.5 # 1.7-7.6 [facility], [address] [place] [address] 09204 Lymphocytes (%) (Auto) July 7:35pm 19.4 % 14-46 [facility], [address] [place] [address] 74422 Lymphocytes (%) (Auto) July 9:31am 25.9 % 14-46 [facility], [address] [place] [address] Lymphocytes (%) (Auto) July 2:35pm 20.2 % 14-46 [facility], [address] [place] [address] 57335 Lymphocytes (%) (Auto) July 01, 2020 9:40pm 21.4 % 14-46 [facility], [address] [place] [address] 10201 Lymphocytes (%) (Auto) April 6:17am 22.8 % 14-46 [facility], [address] [place] [address] 34106 Lymphocytes (%) (Auto) March 25, 020 8:11am 30.4 % 1446 [facility], [address] [place] [address] 87053 Lymphocytes (%) (Auto) March 11 12:14pm 19.0 % [address] [facility], [address] [place] [address] 52420 Lymphocytes (%) (Auto) March 02 11:00am 23.6 % 1446 [facility], [address] [place] [address] 81590 Lymphocytes (%) (Auto) February 25 10:02am 25.4 % 1446 [facility], [address] [place] [address] 09464 Lymphocytes (%) (Auto) February 19 8:35am 26.5 % [address] [facility], [address] [place] [address] 80638 Lymphocytes # (Auto) August 09, 2020 7:35pm 1.9 # 0.6-4.6 [facility], [address] [place] [address] 92656 Lymphocytes # (Auto) August 14, 2020 9:31am 2.5 # 0.6-4.6 [facility], [address] [place] [address] 85129 Lymphocytes # (Auto) August 03, 2020 2:35pm 1.7 # 0.6-4.6 [facility], [address] [place] [address] 56118 Lymphocytes # (Auto) July 01, 020 9:40pm 2.4 # 0.6-4.6 [facility], [address] [place] [address] 05808 Lymphocytes # (Auto) May 18, 2020 6:17am 2.1 # 0.6-4.6 [facility], [address] [place] [address] 27960 Lymphocytes # (Auto) March 25 0 8:11am 3.3 # 0.6-4.6 [facility], [address] [place] [address] 63807 Lymphocytes # (Auto) March 11, 2020 12:14pm 2.1 # 0.6-4.6 [facility], [address] [place] [address] 88171 Lymphocytes # (Auto) March 02, 2020 11:00am 2.4 # 0.6-4.6 [facility], [address] [place] [address] 00287 Lymphocytes # (Auto) February 26, 2020 10:02a m 2.5 # 0.6-4.6 [facility], [address] [place] [address] 47033 Lymphocytes # (Auto) February 20, 2020 8:35a m 2.3 # 0.6-4.6 [facility], [address] [place] [address] 49952 Monocytes (%) (Auto) August 09, 2020 7:35pm 7.0 % 4-12 [facility], [address] [place] [address] 68903 Monocytes (%) (Auto) August 14, 2020 9:31am 6.9 % 4-12 [facility], [address] [place] [address] 55797 Monocytes (%) (Auto) August 03, 2020 2:35pm 8.3 % 4-12 [facility], [address] [place] [address] 96489 Monocytes (%) (Auto) July 01 020 9:40pm 8.9 % 4-12 [facility], [address] [place] [address] 80577 Monocytes (%) (Auto) May 18, 2020 6:17am 8.7 % 4-12 [facility], [address] [place] [address] 31562 Monocytes (%) (Auto) March 25 0 8:11am 7.7 % 412 [facility], [address] [place] [address] 44368 Monocytes (%) (Auto) March 11, 2020 12:14pm 5.5 % 4-12 [facility], [address] [place] [address] [id number] Monocytes (%) (Auto) March 02, 2020 11:00am 7.8 % 4-12 [facility], [address] [place] [address] [id number] Monocytes (%) (Auto) February 26, 2020 10:02a m 8.2 % 4-12 [facility], [address] [place] [address] [id number] Monocytes (%) (Auto) February 20, 2020 8:35a m 8.0 % 4-12 [facility], [address] [place] [address] [id number] Monocytes # August 09, 2020 7:35pm 0.7 # 0.2-1.2 [facility], [address] [place] [address] [id number] Monocytes # August 14, 2020 9:31am 0.7 # 0.2-1.2 [facility], [address] [place] [address] [id number] Monocytes # August 03, 2020 2:35pm 0.7 # 0.2-1.2 [facility], [address] [place] [address] [id number] Monocytes # July 01, 2020 9:40pm 1.0 # 0.2-1.2 [facility], [address] [place] [address] [id number] Monocytes # May 18, 2020 6:17am 0.8 # 0.2-1.2 [facility], [address] [place] [address] [id number] Monocytes # March 25, 2020 8:11am 0.8 # 0.2-1.2 [facility], [address] [place] [address] [id number] Monocytes # March 11, 2020 12:14pm 0.6 # 0.2-1.2 [facility], [address] [place] [address] [id number] Monocytes # March 02, 2020 11:00am 0.8 # 0.2-1.2 [facility], [address] [place] [address] Monocytes # February 26, 2020 10:02am 0.8 # 0.2-1.2 [facility], [address] [place] [address] [id number] Monocytes # February 20, 2020 8:35am 0.7 # 0.2-1.2 [facility], [address] [place] [address] [id number] Eosinophils (%) (Auto) July 7:35pm 1.8 % 0-7 [facility], [address] [place] [address] [id number] Eosinophils (%) (Auto) July 9:31am 3.0 % 0-7 [facility], [address] [place] [address] [id number] Eosinophils (%) (Auto) July 2:35pm 2.2 % 0-7 [facility], [address] [place] [address] [id number] Eosinophils (%) (Auto) July 01, 2020 9:40pm 2.7 % 0-7 [facility], [address] [place] [address] [id number] Eosinophils (%) (Auto) April 6:17am 1.9 % 0-7 [facility], [address] [place] [address] [id number] Eosinophils (%) (Auto) March 25 8:11am 2.7 % 0-7 [facility], [address] [place] [address] [id number] Eosinophils (%) (Auto) March 11 12:14pm 2.5 % 0-7 [facility], [address] [place] [address] 42272 Eosinophils (%) (Auto) March 02 11:00am 2.4 % 0-7 [facility], [address] [place] [address] 15197 Eosinophils (%) (Auto) February 25 0 10:02am 3.1 % 0-7 [facility], [address] [place] [address] 37196 Eosinophils (%) (Auto) February 19 8:35am 2.6 % 0-7 [facility], [address] [place] [address] 86283 Absolute Eosinophils (CBC) August 09, 2020 7:35pm 0.2 # 0.0-0.5 [facility], [address] [place] [address] 76978 Absolute Eosinophils (CBC) August 14, 2020 9:31am 0.3 # 0.0-0.5 [facility], [address] [place] [address] 68859 Absolute Eosinophils (CBC) August 03, 2020 2:35pm 0.2 # 0.0-0.5 [facility], [address] [place] [address] 60389 Absolute Eosinophils (CBC) July 01, 2020 9:40pm 0.3 # 0.0-0.5 [facility], [address] [place] [address] 04424 Absolute Eosinophils (CBC) May 18, 2020 6:17am 0.2 # 0.0-0.5 [facility], [address] [place] [address] 77113 Absolute Eosinophils (CBC) March 8:11am 0.3 # 0.0-0.5 [facility], [address] [place] [address] 92447 Absolute Eosinophils (CBC) February 12:14pm 0.3 # 0.0-0.5 [facility], [address] [place] [address] Absolute Eosinophils (CBC) February 11:00am 0.3 # 0.0-0.5 [facility], [address] [place] [address] Absolute Eosinophils (CBC) February 26, 2020 10:02am 0.3 # 0.0-0.5 [facility], [address] [place] [address] Absolute Eosinophils (CBC) January 8:35am 0.2 # 0.0-0.5 [facility], [address] [place] [address] Basophils (%) (Auto) August 09, 2020 7:35pm 0.3 % 0.4-1.3 [facility], [address] [place] [address] Basophils (%) (Auto) August 14, 2020 9:31am 0.3 % 0.4-1.3 [facility], [address] [place] [address] 48418 Basophils (%) (Auto) August 03, 2020 2:35pm 0.3 % 0.4-1.3 [facility], [address] [place] [address] Basophils (%) (Auto) July 01 020 9:40pm 0.4 % 0.4-1.3 [facility], [address] [place] [address] 11624 Basophils (%) (Auto) May 18, 2020 6:17am 0.3 % 0.4-1.3 [facility], [address] [place] [address] 92707 Basophils (%) (Auto) March 25 0 8:11am 0.5 % 0.4-1.3 [facility], [address] [place] [address] 45002 Basophils (%) (Auto) March 11, 2020 12:14pm 0.4 % 0.4-1.3 [facility], [address] [place] [address] 45236 Basophils (%) (Auto) March 02, 2020 11:00am 0.5 % 0.4-1.3 [facility], [address] [place] [address] 35484 Basophils (%) (Auto) February 26, 2020 10:02a m 0.4 % 0.4-1.3 [facility], [address] [place] [address] 34590 Basophils (%) (Auto) February 20, 2020 8:35a m 0.3 % 0.4-1.3 [facility], [address] [place] [address] 43547 Absolute Basophils (CBC) August 092019 7:35pm 0.0 # 0.0-0.2 [facility], [address] [place] [address] 33838 Absolute Basophils (CBC) August 142019 9:31am 0.0 # 0.0-0.2 [facility], [address] [place] [address] 06163 Absolute Basophils (CBC) August 032019 2:35pm 0.0 # 0.0-0.2 [facility], [address] [place] [address] 38229 Absolute Basophils (CBC) June 9:40pm 0.0 # 0.0-0.2 [facility], [address] [place] [address] 35632 Absolute Basophils (CBC) April 242019 6:17am 0.0 # 0.0-0.2 [facility], [address] [place] [address] 88535 Absolute Basophils (CBC) March 25, 2020 8:11am 0.1 # 0.0-0.2 [facility], [address] [place] [address] 04511 Absolute Basophils (CBC) March 11, 2020 12:14pm 0.0 # 0.0-0.2 [facility], [address] [place] [address] 70143 Absolute Basophils (CBC) March 02, 2020 11:00am 0.1 # 0.0-0.2 [facility], [address] [place] [address] 82861 Absolute Basophils (CBC) February 25 10:02am 0.0 # 0.0-0.2 [facility], [address] [place] [address] 03926 Absolute Basophils (CBC) February 20, 2020 8:35am 0.0 # 0.0-0.2 [facility], [address] [place] [address] 07198 Immature Granulocyte % (Auto) Dece 2019 7:35pm 0.2 % 0-2 [facility], [address] [place] [address] 64137 Immature Granulocyte % (Auto) Dece er 2019 9:31am 0.2 % 0-2 [facility], [address] [place] [address] 22516 Immature Granulocyte % (Auto) Dece er 2019 2:35pm 0.2 % 0-2 [facility], [address] [place] [address] 18669 Immature Granulocyte % (Auto) [facility] er 2019 9:40pm 0.3 % 0-2 [facility], [address] [place] [address] 31850 Immature Granulocyte % (Auto) Sept2019 6:17am 0.2 % 0-2 [facility], [address] [place] [address] 36597 Immature Granulocyte % (Auto) March 25, 2020 8:11am 0.3 % 0-2 [facility], [address] [place] [address] 67429 Immature Granulocyte % (Auto) February 212019 12:14pm 0.4 % 0-2 [facility], [address] [place] [address] 39426 Immature Granulocyte % (Auto) February 202019 11:00am 0.3 % 0-2 [facility], [address] [place] [address] 36166 Immature Granulocyte % (Auto) February 252019 10:02am 0.3 % 0-2 [facility], [address] [place] [address] 06569 Immature Granulocyte % (Auto) January 232019 8:35am 0.2 % 0-2 [facility], [address] [place] [address] 93508 Absolute Immature Granulocyte (auto August 09, 2020 7:35pm 0.0 # 0-0.1 [facility], [address] [place] [address] 95297 Absolute Immature Granulocyte (auto August 14, 2020 9:31am 0.0 # 0-0.1 [facility], [address] [place] [address] 00331 Absolute Immature Granulocyte (auto August 03, 2020 2:35pm 0.0 # 0-0.1 [facility], [address] [place] [address] 84559 Absolute Immature Granulocyte (auto July 01, 2020 9:40pm 0.0 # 0-0.1 [facility], [address] [place] [address] 22309 Absolute Immature Granulocyte (auto May 18, 2020 6:17am 0.0 # 0-0.1 [facility], [address] [place] [address] Absolute Immature Granulocyte (auto March 25, 2020 8:11am 0.0 # 0-0.1 [facility], [address] [place] [address] 82061 Absolute Immature Granulocyte (auto March 11, 2020 12:14pm 0.0 # 0-0.1 [facility], [address] [place] [address] 56878 Absolute Immature Granulocyte (auto March 02, 2020 11:00am 0.0 # 0-0.1 [facility], [address] [place] [address] 38445 Absolute Immature Granulocyte (auto February 26, 2020 10:02am 0.0 # 0-0.1 [facility], [address] [place] [address] 32570 Absolute Immature Granulocyte (auto February 20, 2020 8:35am 0.0 # 0-0.1 [facility], [address] [place] [address] 50363 Add Manual Differential July 7:35pm No [facility], [address] [place] [address] 53182 Add Manual Differential July 9:31am No [facility], [address] [place] [address] 43490 Add Manual Differential July 2:35pm No [facility], [address] [place] [address] 63537 Add Manual Differential June 9:40pm No [facility], [address] [place] [address] 47853 Add Manual Differential May 182019 6:17am No [facility], [address] [place] [address] 47682 Add Manual Differential March 25, 2020 8:11am No [facility], [address] [place] [address] 58199 Add Manual Differential March 11 12:14pm No [facility], [address] [place] [address] 28536 Add Manual Differential March 02 020 11:00am No [facility], [address] [place] [address] 86563 Add Manual Differential February 25 10:02am No [facility], [address] [place] [address] 26550 Add Manual Differential February 19 020 8:35am No [facility], [address] [place] [address] 08714 Differential Total Cells Counted Sep 2019 7:20pm 100 [facility], [address] [place] [address] 88750 Neutrophils (Manual) May 17, 2020 7:20pm 77 % 41-77 [facility], [address] [place] [address] 63047 Band Neutrophils May 17 0 7:20pm 3 % 0-5 [facility], [address] [place] [address] 25143 Lymphocytes (Manual) May 17, 2020 7:20pm 17 % 14-46 [facility], [address] [place] [address] 20839 Monocytes (Manual) May 17 020 7:20pm 3 % 4-12 [facility], [address] [place] [address] 39780 Platelet Estimate May 17 7:20pm Appears normal NORMAL [facility], [address] [place] [address] 68716 RBC Morphology 2 May 17 0 7:20pm Appears normal NORMAL [facility], [address] [place] [address] 31771 Urine Color May 18, 2020 12:15am Yellow [facility], [address] [place] [address] 97456 Urine Color February 20, 2020 8:40am Yellow [facility], [address] [place] [address] 73826 Urine Color August 09, 2020 8:06pm Yellow [facility], [address] [place] [address] 26970 Urine Color August 03, 2020 2:50pm Yellow [facility], [address] [place] [address] 50348 Urine Color July 01, 2020 9:30pm Yellow [facility], [address] [place] [address] 65707 Urine Color March 25, 2020 8:05am Yellow [facility], [address] [place] [address] 30697 Urine Color March 11, 2020 11:00am Yellow [facility], [address] [place] [address] 19680 Urine Color March 05, 2020 2:29pm Yellow [facility], [address] [place] [address] 43193 Urine Color March 02, 2020 10:48am Yellow [facility], [address] [place] [address] 98594 Urine Appearance August 09, 2020 8:06p m Clear CLEAR [facility], [address] [place] [address] 82332 Urine Appearance August 03, 2020 2:50p m Clear CLEAR [facility], [address] [place] [address] 07126 Urine Appearance July 01, 2020 9:30pm Cloudy CLEAR [facility], [address] [place] [address] 96368 Urine Appearance May 18 0 12:15am Clear CLEAR [facility], [address] [place] [address] 57225 Urine Appearance March 25, 2020 8:05am Cloudy CLEAR [facility], [address] [place] [address] 03366 Urine Appearance March 11, 2020 11:00am Cloudy CLEAR [facility], [address] [place] [address] 86165 Urine Appearance March 05, 2020 2:29pm Cloudy CLEAR [facility], [address] [place] [address] 33961 Urine Appearance March 02, 2020 10:48am Cloudy CLEAR [facility], [address] [place] [address] 43111 Urine Appearance February 20, 2020 8:40am Turbid CLEAR [facility], [address] [place] [address] 63814 Urine pH August 09, 2020 8:06pm 6.5 [facility], [address] [place] [address] 25030 Urine pH August 03, 2020 2:50pm 7.5 [facility], [address] [place] [address] 60454 Urine pH July 01, 2020 9:30pm 6.0 [facility], [address] [place] [address] 05349 Urine pH May 18, 2020 12:15am 6.0 [facility], [address] [place] [address] 78629 Urine pH March 25, 2020 8:05am 5.5 [facility], [address] [place] [address] 22429 Urine pH March 11, 2020 11:00am 6.5 [facility], [address] [place] [address] 00384 Urine pH March 05, 2020 2:29pm 6.0 [facility], [address] [place] [address] 30191 Urine pH March 02, 2020 10:48am 5.5 [facility], [address] [place] [address] 75221 Urine pH February 20, 2020 8:40am 5.5 [facility], [address] [place] [address] 88012 Urine Specific Line [place] July 8:06pm 1.022 [facility], [address] [place] [address] 74131 Urine Specific Line [place] July 2:50pm 1.020 [facility], [address] [place] [address] 42581 Urine Specific Line [place] July 01, 2020 9:30pm 1.026 [facility], [address] [place] [address] Urine Specific Line [place] April 12:15am >1.045 [facility], [address] [place] [address] Urine Specific Line [place] March 25 8:05am 1.025 [facility], [address] [place] [address] Urine Specific Line [place] March 11 11:00am 1.025 [facility], [address] [place] [address] Urine Specific Line [place] March 05 2:29pm 1.021 [facility], [address] [place] [address] Urine Specific Line [place] March 02 10:48am 1.025 [facility], [address] [place] [address] Urine Specific Line [place] February 19 8:40am 1.023 [facility], [address] [place] [address] Urine Leukocyte Esterase April 242019 12:15am Negative NEGATIVE [facility], [address] [place] [address] Urine Leukocyte Esterase February 20, 2020 8:40am Moderate NEGATIVE [facility], [address] [place] [address] Urine Leukocyte Esterase August 092019 8:06pm Small NEGATIVE A Culture has been added to this specimen per established criteria [facility], [address] [place] [address] Urine Leukocyte Esterase August 032019 2:50pm Small NEGATIVE A Culture has been added to this specimen per established criteria [facility], [address] [place] [address] Urine Leukocyte Esterase June 9:30pm Small NEGATIVE A Culture has been added to this specimen per established criteria [facility], [address] [place] [address] Urine Leukocyte Esterase March 25, 2020 8:05am Trace NEGATIVE A Culture has been added to this specimen per established criteria [facility], [address] [place] [address] Urine Leukocyte Esterase March 11, 2020 11:00am Trace NEGATIVE A Culture has been added to this specimen per established criteria [facility], [address] [place] [address] 70144 Urine Leukocyte Esterase March 05, 2020 2:29pm Trace NEGATIVE A Culture has been added to this specimen per established criteria [facility], [address] [place] [address] 49172 Urine Leukocyte Esterase March 02, 2020 10:48am Trace NEGATIVE A Culture has been added to this specimen per established criteria [facility], [address] [place] [address] Urine Nitrite May 18, 2020 12:15am Negative NEGATIVE [facility], [address] [place] [address] 60532 Urine Nitrite February 20, 2020 8:40am Negative NEGATIVE [facility], [address] [place] [address] 86944 Urine Nitrate August 09, 2020 8:06pm Negative NEGATIVE [facility], [address] [place] [address] 91638 Urine Nitrate August 03, 2020 2:50pm Negative NEGATIVE [facility], [address] [place] [address] Urine Nitrate July 01, 2020 9:30pm Negative NEGATIVE [facility], [address] [place] [address] 12118 Urine Nitrate March 25, 2020 8:05am Negative NEGATIVE [facility], [address] [place] [address] 62148 Urine Nitrate March 11, 2020 11:00am Negative NEGATIVE [facility], [address] [place] [address] Urine Nitrate March 05, 2020 2:29pm Negative NEGATIVE [facility], [address] [place] [address] 89733 Urine Nitrate March 02, 2020 10:48am Negative NEGATIVE [facility], [address] [place] [address] Urine Protein August 09, 2020 8:06pm Negative NEGATIVE [facility], [address] [place] [address] 66103 Urine Protein August 03, 2020 2:50pm Negative NEGATIVE [facility], [address] [place] [address] 01824 Urine Protein July 01, 2020 9:30pm Trace NEGATIVE [facility], [address] [place] [address] 61597 Urine Protein May 18, 2020 12:15am Negative NEGATIVE [facility], [address] [place] [address] 55285 Urine Protein March 25, 2020 8:05am Negative NEGATIVE [facility], [address] [place] [address] 77428 Urine Protein March 11, 2020 11:00am Trace NEGATIVE [facility], [address] [place] [address] 95431 Urine Protein March 05, 2020 2:29pm Trace NEGATIVE [facility], [address] [place] [address] 26731 Urine Protein March 02, 2020 10:48am Negative NEGATIVE [facility], [address] [place] [address] 00689 Urine Protein February 20, 2020 8:40am 30 mg/dl NEGATIVE [facility], [address] [place] [address] 16518 Urine Glucose August 09, 2020 8:06pm Negative NEGATIVE [facility], [address] [place] [address] 34121 Urine Glucose August 03, 2020 2:50pm Negative NEGATIVE [facility], [address] [place] [address] 66867 Urine Glucose July 01, 2020 9:30pm Negative NEGATIVE [facility], [address] [place] [address] 83245 Urine Glucose May 18, 2020 12:15am Negative NEGATIVE [facility], [address] [place] [address] 33878 Urine Glucose March 25, 2020 8:05am Negative NEGATIVE [facility], [address] [place] [address] 60888 Urine Glucose March 11, 2020 11:00am Negative NEGATIVE [facility], [address] [place] [address] 99737 Urine Glucose March 05, 2020 2:29pm Negative NEGATIVE [facility], [address] [place] [address] 19968 Urine Glucose March 02, 2020 10:48am Negative NEGATIVE [facility], [address] [place] [address] 03799 Urine Glucose February 20, 2020 8:40am Negative NEGATIVE [facility], [address] [place] [address] 34573 Urine Ketones August 09, 2020 8:06pm Negative NEGATIVE [facility], [address] [place] [address] 67115 Urine Ketones August 03, 2020 2:50pm Negative NEGATIVE [facility], [address] [place] [address] 03431 Urine Ketones July 01, 2020 9:30pm Trace NEGATIVE [facility], [address] [place] [address] 69658 Urine Ketones May 18, 2020 12:15am Negative NEGATIVE [facility], [address] [place] [address] 51146 Urine Ketones March 25, 2020 8:05am Trace NEGATIVE [facility], [address] [place] [address] 92264 Urine Ketones March 11, 2020 11:00am Trace NEGATIVE [facility], [address] [place] [address] 92744 Urine Ketones March 05, 2020 2:29pm Negative NEGATIVE [facility], [address] [place] [address] Urine Ketones March 02, 2020 10:48am Negative NEGATIVE [facility], [address] [place] [address] 19719 Urine Ketones February 20, 2020 8:40am Trace NEGATIVE [facility], [address] [place] [address] Urine Urobilinogen August 09 8:06pm 1 eu/dl [facility], [address] [place] [address] 33899 Urine Urobilinogen August 03 2:50pm 1 eu/dl [facility], [address] [place] [address] Urine Urobilinogen July 01 0 9:30pm 1 eu/dl [facility], [address] [place] [address] Urine Urobilinogen May 18 12:15am 0.2 eu/dl [facility], [address] [place] [address] 36534 Urine Urobilinogen March 25, 2020 8:05am 1 eu/dl [facility], [address] [place] [address] 26307 Urine Urobilinogen March 11, 2020 11:00am 1 eu/dl [facility], [address] [place] [address] Urine Urobilinogen March 05, 2020 2:29pm 0.2 eu/dl [facility], [address] [place] [address] Urine Urobilinogen March 02, 2020 10:48am 1 eu/dl [facility], [address] [place] [address] Urine Urobilinogen February 20, 2020 8:40am 1 eu/dl [facility], [address] [place] [address] 26349 Urine Bilirubin August 09, 2020 8:06pm Negative NEGATIVE [facility], [address] [place] [address] 99325 Urine Bilirubin August 03, 2020 2:50pm Negative NEGATIVE [facility], [address] [place] [address] 78572 Urine Bilirubin July 01, 2020 9:30pm Negative NEGATIVE [facility], [address] [place] [address] 97093 Urine Bilirubin May 18, 2020 12:15am Negative NEGATIVE [facility], [address] [place] [address] 09670 Urine Bilirubin March 25, 2020 8:05am Negative NEGATIVE [facility], [address] [place] [address] Urine Bilirubin March 11, 2020 11:00am Negative NEGATIVE [facility], [address] [place] [address] [id number] Urine Bilirubin March 05, 2020 2:29pm Negative NEGATIVE [facility], [address] [place] [address] 91574 Urine Bilirubin March 02, 2020 10:48am Negative NEGATIVE [facility], [address] [place] [address] 38108 Urine Bilirubin February 20, 2020 8:40am Negative NEGATIVE [facility], [address] [place] [address] Urine Blood May 18, 2020 12:15am Negative NEGATIVE [facility], [address] [place] [address] Urine Blood February 20, 2020 8:40am Large NEGATIVE [facility], [address] [place] [address] 53615 Urine Blood August 09, 2020 8:06pm Moderate NEGATIVE A Culture has been added to this specimen per established criteria [facility], [address] [place] [address] 89805 Urine Blood August 03, 2020 2:50pm Small NEGATIVE [facility], [address] [place] [address] Urine Blood July 01, 2020 9:30pm Moderate NEGATIVE A Culture has been added to this specimen per established criteria [facility], [address] [place] [address] Urine Blood March 25, 2020 8:05am Negative NEGATIVE [facility], [address] [place] [id number] Urine Blood March 11, 2020 11:00am Negative NEGATIVE [facility], [address] [place] [address] Urine Blood March 05, 2020 2:29pm Large NEGATIVE A Culture has been added to this specimen per established criteria [facility], [address] [place] [address] Urine Blood March 02, 2020 10:48am Trace NEGATIVE [facility], [address] [place] [address] Microscopic Urinalysis Comment Septe mb2019 12:15am No [facility], [address] [place] [id number] Microscopic Urinalysis Comment February 20, 2020 8:40am Microscopic added [facility], [address] [place] [address] Add Urine Microanalysis July 8:06pm Microscopic added [facility], [address] [place] [address] Add Urine Microanalysis July 2:50pm Microscopic added [facility], [address] [place] [address] Add Urine Microanalysis June 9:30pm Microscopic added [facility], [address] [place] [address] Add Urine Microanalysis March 25, 2020 8:05am Microscopic added [facility], [address] [place] [address] Add Urine Microanalysis March 11 11:00am Microscopic added [facility], [address] [place] [address] Add Urine Microanalysis March 05 020 2:29pm Microscopic added [facility], [address] [place] [address] Add Urine Microanalysis March 02 020 10:48am Microscopic added [facility], [address] [place] [address] Urine RBC August 09, 2020 8:06pm 1-2 /hpf [facility], [address] [place] [address] Urine RBC August 03, 2020 2:50pm 6-10 /hpf [facility], [address] [place] [id number] Urine RBC July 01, 2020 9:30pm Occasional /hpf [facility], [address] [place] [address] Urine RBC March 05, 2020 2:29pm 3-5 /hpf [facility], [address] [place] [address] Urine RBC March 02, 2020 10:48am Occasional /hpf [facility], [address] [place] [address] Urine WBC February 20, 2020 8:40am 20-30 /hpf [facility], [address] [place] [address] Urine WBC August 09, 2020 8:06pm 1-2 /hpf [facility], [address] [place] [address] Urine WBC August 03, 2020 2:50pm 20-30 /hpf [facility], [address] [place] [address] Urine WBC July 01, 2020 9:30pm Occasional /hpf [facility], [address] [place] [address] Urine WBC March 25, 2020 8:05am 3-5 /hpf [facility], [address] [place] [address] Urine WBC March 11, 2020 11:00am 3-5 /hpf [facility], [address] [place] [address] Urine WBC March 05, 2020 2:29pm Occasional /hpf [facility], [address] [place] [address] Urine WBC March 02, 2020 10:48am 3-5 /hpf [facility], [address] [place] [address] Urine Squamous Epithelial Cells Dece mb2019 8:06pm Many /hpf [facility], [address] [place] [address] Urine Squamous Epithelial Cells Dece mber 2019 2:50pm Moderate /hpf [facility], [address] [place] [address] Urine Squamous Epithelial Cells Nove mber 2019 9:30pm Moderate /hpf [facility], [address] [place] [address] Urine Squamous Epithelial Cells Augu 2019 8:05am Many /hpf [facility], [address] [place] [address] Urine Squamous Epithelial Cells March 11, 2020 11:00am Many /hpf [facility], [address] [place] [address] Urine Squamous Epithelial Cells March 05, 2020 2:29pm Many /hpf [facility], [address] [place] [address] Urine Squamous Epithelial Cells March 02, 2020 10:48am Many /hpf [facility], [address] [place] [address] Urine Squamous Epithelial Cells February 20, 2020 8:40am Many /hpf [facility], [address] [place] [address] Urine Bacteria February 20, 2020 8:40am Moderate amount NEGATIVE [facility], [address] [place] [address] Urine Bacteria August 09, 2020 8:06pm Small amount NEGATIVE [facility], [address] [place] [address] Urine Bacteria August 03, 2020 2:50pm Small amount NEGATIVE [facility], [address] [place] [address] Urine Bacteria July 01, 2020 9:30pm Moderate amount NEGATIVE A Culture has been added to this specime n per established criteria [facility], [address] [place] [address] Urine Bacteria March 25, 2020 8:05am Small amount NEGATIVE [facility], [address] [place] [address] [id number] Urine Bacteria March 11, 2020 11:00am Small amount NEGATIVE [facility], [address] [place] [address] Urine Bacteria March 05, 2020 2:29pm Small amount NEGATIVE [facility], [address] [place] [address] 42609 Urine Bacteria March 02, 2020 10:48am Small amount NEGATIVE [facility], [address] [place] [address] 27275 Urine Mucus March 25, 2020 8:05am Small amount [facility], [address] [place] [address] 80868 Urine Sperm February 20, 2020 8:40am Few [facility], [address] [place] [address] Blood Urea Nitrogen August 09 020 7:35pm 8 mg/dL 05-15 [facility], [address] [place] [address] Blood Urea Nitrogen August 03 020 2:35pm 5 mg/dL 05-15 [facility], [address] [place] [address] Blood Urea Nitrogen July 01 9:40pm 6 mg/dL 05-15 [facility], [address] [place] [address] Blood Urea Nitrogen May 18, 2020 6:17am 7 mg/dL 05-15 [facility], [address] [place] [address] Blood Urea Nitrogen March 25, 2020 8:11a m 7 mg/dL 05-15 [facility], [address] [place] [address] Blood Urea Nitrogen March 11, 2020 12:14p m 6 mg/dL 05-15 [facility], [address] [place] [address] Blood Urea Nitrogen March 02, 2020 11:00a m 8 mg/dL 05-15 [facility], [address] [place] [address] Blood Urea Nitrogen February 26, 2020 10:02am 7 mg/dL 05-15 [facility], [address] [place] [address] Blood Urea Nitrogen February 20, 2020 8:35am 6 mg/dL 05-15 [facility], [address] [place] [address] Sodium Level August 09, 2020 7:35pm 141 mmol/L 132-146 [facility], [address] [place] [address] Sodium Level August 03, 2020 2:35pm 138 mmol/L 132-146 [facility], [address] [place] [address] 45475 Sodium Level July 01, 2020 9:40pm 141 mmol/L 132-146 [facility], [address] [place] [address] 76429 Sodium Level May 18, 2020 6:17am 143 mmol/L 132-146 [facility], [address] [place] [address] 05520 Sodium Level March 25, 2020 8:11am 137 mmol/L 132-146 [facility], [address] [place] [address] 14418 Sodium Level March 11, 2020 12:14pm 140 mmol/L 132-146 [facility], [address] [place] [address] 39711 Sodium Level March 02, 2020 11:00am 139 mmol/L 132-146 [facility], [address] [place] [address] 86794 Sodium Level February 26, 2020 10:02am 138 mmol/L 132-146 [facility], [address] [place] [address] 58204 Sodium Level February 20, 2020 8:35am 138 mmol/L 132-146 [facility], [address] [place] [address] 08504 Potassium Level August 09, 2020 7:35pm 3.9 mmol/L 3.5-5.5 [facility], [address] [place] [address] 09958 Potassium Level August 03, 2020 2:35pm 4.6 mmol/L 3.5-5.5 [facility], [address] [place] [address] 40671 Potassium Level July 01, 2020 9:40pm 3.7 mmol/L 3.5-5.5 [facility], [address] [place] [address] 33870 Potassium Level May 18, 2020 6:17a m 3.8 mmol/L 3.5-5.5 [facility], [address] [place] [address] 22843 Potassium Level March 25, 2020 8:11am 3.7 mmol/L 3.5-5.5 [facility], [address] [place] [address] 94386 Potassium Level March 11, 2020 12:14pm 4.3 mmol/L 3.5-5.5 [facility], [address] [place] [address] 42959 Potassium Level March 02, 2020 11:00am 4.1 mmol/L 3.5-5.5 [facility], [address] [place] [address] 34378 Potassium Level February 26, 2020 10:02am 4.1 mmol/L 3.5-5.5 [facility], [address] [place] [address] 09372 Potassium Level February 20, 2020 8:35am 4.1 mmol/L 3.5-5.5 [facility], [address] [place] [address] 53083 Chloride Level August 09, 2020 7:35pm 111 mmol/l 99-109 [facility], [address] [place] [address] 57395 Chloride Level August 03, 2020 2:35pm 110 mmol/l 99-109 [facility], [address] [place] [address] 49322 Chloride Level July 01, 2020 9:40pm 110 mmol/l 99-109 [facility], [address] [place] [address] 49246 Chloride Level May 18, 2020 6:17am 113 mmol/l 99-109 [facility], [address] [place] [address] 71588 Chloride Level March 25, 2020 8:11am 111 mmol/l 99-109 [facility], [address] [place] [address] 29700 Chloride Level March 11, 2020 12:14pm 111 mmol/l 99-109 [facility], [address] [place] [address] 43619 Chloride Level March 02, 2020 11:00am 111 mmol/l 99-109 [facility], [address] [place] [address] 39508 Chloride Level February 26, 2020 10:02am 107 mmol/l 99-109 [facility], [address] [place] [address] 98253 Chloride Level February 20, 2020 8:35am 108 mmol/l 99-109 [facility], [address] [place] [address] 72314 Carbon Dioxide Level August 09, 2020 7:35pm 24 mmol/l 20-31 [facility], [address] [place] [address] 11631 Carbon Dioxide Level August 03, 2020 2:35pm 21 mmol/l -31 [facility], [address] [place] [address] 62779 Carbon Dioxide Level July 01 9:40pm 22 mmol/l -31 [facility], [address] [place] [address] 90408 Carbon Dioxide Level May 18, 2020 6:17am 25 mmol/l 20-31 [facility], [address] [place] [address] 29697 Carbon Dioxide Level March 25 0 8:11am 21 mmol/l 20-31 [facility], [address] [place] [address] 86513 Carbon Dioxide Level March 11, 2020 12:14pm 20 mmol/l 20-31 [facility], [address] [place] [address] 34340 Carbon Dioxide Level March 02, 2020 11:00am 20 mmol/l 20-31 [facility], [address] [place] [address] 51277 Carbon Dioxide Level February 26, 2020 10:02a m 22 mmol/l 20-31 [facility], [address] [place] [address] 05913 Carbon Dioxide Level February 20, 2020 8:35a m 21 mmol/l 20-31 [facility], [address] [place] [address] 64796 Anion Gap August 09, 2020 7:35pm 10 mmol/l 8-16 [facility], [address] [place] [address] 88751 Anion Gap August 03, 2020 2:35pm 12 mmol/l 8-16 [facility], [address] [place] [address] 78955 Anion Gap July 01, 2020 9:40pm 13 mmol/l 8-16 [facility], [address] [place] [address] 72714 Anion Gap May 18, 2020 6:17am 9 mmol/l 8-16 [facility], [address] [place] [address] 89063 Anion Gap March 25, 2020 8:11am 9 mmol/l 8-16 [facility], [address] [place] [address] 33444 Anion Gap March 11, 2020 12:14pm 13 mmol/l 8-16 [facility], [address] [place] [address] 92987 Anion Gap March 02, 2020 11:00am 12 mmol/l 8-16 [facility], [address] [place] [address] 22671 Anion Gap February 26, 2020 10:02am 13 mmol/l 8-16 [facility], [address] [place] [address] 41969 Anion Gap February 20, 2020 8:35am 13 mmol/l 8-16 [facility], [address] [place] [address] 73416 Glucose Level August 09, 2020 7:35pm 89 mg/dL 74-106 [facility], [address] [place] [address] 69809 Glucose Level August 03, 2020 2:35pm 87 mg/dL 74-106 [facility], [address] [place] [address] 69404 Glucose Level July 01, 2020 9:40pm 100 mg/dL 74-106 [facility], [address] [place] [address] 17525 Glucose Level May 18, 2020 6:17am 93 mg/dL 74-106 [facility], [address] [place] [address] 99844 Glucose Level March 25, 2020 8:11am 93 mg/dL 74-106 [facility], [address] [place] [address] 16679 Glucose Level March 11, 2020 12:14pm 88 mg/dL 74-106 [facility], [address] [place] [address] 17128 Glucose Level March 02, 2020 11:00am 91 mg/dL 74-106 [facility], [address] [place] [address] 04831 Glucose Level February 26, 2020 10:02am 92 mg/dL 74-106 [facility], [address] [place] [address] 29247 Glucose Level February 20, 2020 8:35am 98 mg/dL 74-106 [facility], [address] [place] [address] 43093 Creatinine August 09, 2020 7:35pm 1.3 mg/dL 0.5-1.1 [facility], [address] [place] [address] 43941 Creatinine August 03, 2020 2:35pm 0.8 mg/dL 0.5-1.1 [facility], [address] [place] [address] Creatinine July 01, 2020 9:40pm 0.9 mg/dL 0.5-1.1 [facility], [address] [place] [address] 64248 Creatinine May 18, 2020 6:17am 0.7 mg/dL 0.5-1.1 [facility], [address] [place] [address] Creatinine March 25, 2020 8:11am 0.9 mg/dL 0.5-1.1 [facility], [address] [place] [address] 55704 Creatinine March 11, 2020 12:14pm 1.2 mg/dL 0.5-1.1 [facility], [address] [place] [address] 63626 Creatinine March 02, 2020 11:00am 1.0 mg/dL 0.5-1.1 [facility], [address] [place] [address] Creatinine February 26, 2020 10:02am 1.0 mg/dL 0.5-1.1 [facility], [address] [place] [address] Creatinine February 20, 2020 8:35am 1.1 mg/dL 0.5-1.1 [facility], [address] [place] [address] 50087 Glomerular Filtration Rate Calc Dece 2019 7:35pm 50 ml/min ABOVE 60 [facility], [address] [place] [address] 59903 Glomerular Filtration Rate Calc Dece 2019 2:35pm Greater than 60 ml/min ABOVE 60 [facility], [address] [place] [address] 17842 Glomerular Filtration Rate Calc Nove 2019 9:40pm Greater than 60 ml/min ABOVE 60 [facility], [address] [place] [address] 85829 Glomerular Filtration Rate Calc Sept 2019 6:17am Greater than 60 ml/min ABOVE 60 [facility], [address] [place] [address] 10170 Glomerular Filtration Rate Calc 2019 8:11am Greater than 60 ml/min ABOVE 60 [facility], [address] [place] [address] 30350 Glomerular Filtration Rate Calc March 11, 2020 12:14pm 55 ml/min ABOVE 60 [facility], [address] [place] [address] 14998 Glomerular Filtration Rate Calc March 02, 2020 11:00am Greater than 60 ml/min ABOVE 60 [facility], [address] [place] [address] 02896 Glomerular Filtration Rate Calc February 26, 2020 10:02am Greater than 60 ml/min ABOVE 60 [facility], [address] [place] [address] 64901 Glomerular Filtration Rate Calc February 20, 2020 8:35am Greater than 60 ml/min ABOVE 60 [facility], [address] [place] [address] 07367 Alanine Aminotransferase (ALT/SGPT) August 09, 2020 7:35pm 30 U/L 10-49 [facility], [address] [place] [address] 62648 Alanine Aminotransferase (ALT/SGPT) August 03, 2020 2:35pm 42 U/L 10-49 [facility], [address] [place] [address] 46322 Alanine Aminotransferase (ALT/SGPT) July 01, 2020 9:40pm 43 U/L 10-49 [facility], [address] [place] [address] 94549 Alanine Aminotransferase (ALT/SGPT) May 18, 2020 6:17am 52 U/L 10-49 [facility], [address] [place] [address] Alanine Aminotransferase (ALT/SGPT) March 25, 2020 8:11am 27 U/L 10-49 [facility], [address] [place] [address] 86394 Alanine Aminotransferase (ALT/SGPT) March 11, 2020 12:14pm 29 U/L 10-49 [facility], [address] [place] [address] 47408 Alanine Aminotransferase (ALT/SGPT) March 02, 2020 11:00am 29 U/L 10-49 [facility], [address] [place] [address] 67998 Alanine Aminotransferase (ALT/SGPT) February 26, 2020 10:02am 33 U/L 10-49 [facility], [address] [place] [address] 61450 Alanine Aminotransferase (ALT/SGPT) February 20, 2020 8:35am 42 U/L 10-49 [facility], [address] [place] [address] 15158 Aspartate Amino Transf (AST/SGOT) De cember 2019 7:35pm 13 U/L 0-33 [facility], [address] [place] [address] 92212 Aspartate Amino Transf (AST/SGOT) De cember 2019 2:35pm 35 U/L 0-33 [facility], [address] [place] [address] 38887 Aspartate Amino Transf (AST/SGOT) No vember 2019 9:40pm 21 U/L 0-33 [facility], [address] [place] [address] 87563 Aspartate Amino Transf (AST/SGOT) Se ptember 2019 6:17am 27 U/L 0-33 [facility], [address] [place] [address] 85988 Aspartate Amino Transf (AST/SGOT) Au kem 2019 8:11am 15 U/L 0-33 [facility], [address] [place] [address] 43053 Aspartate Amino Transf (AST/SGOT) Ju ly 2019 12:14pm 17 U/L 0-33 [facility], [address] [place] [address] 86674 Aspartate Amino Transf (AST/SGOT) Ju ly 2019 11:00am 14 U/L 0-33 [facility], [address] [place] [address] 16864 Aspartate Amino Transf (AST/SGOT) Ju ly 2019 10:02am 17 U/L 0-33 [facility], [address] [place] [address] 75088 Aspartate Amino Transf (AST/SGOT) Ju ne 2019 8:35am 23 U/L 0-33 [facility], [address] [place] [address] 02888 Alkaline Phosphatase August 09, 2020 7:35pm 122 U/L 45-129 [facility], [address] [place] [address] 78275 Alkaline Phosphatase August 03, 2020 2:35pm 125 U/L 45-129 [facility], [address] [place] [address] 23363 Alkaline Phosphatase July 01 9:40pm 139 U/L 45-129 [facility], [address] [place] [address] 84909 Alkaline Phosphatase May 18, 2020 6:17am 110 U/L 45-129 [facility], [address] [place] [address] 25781 Alkaline Phosphatase March 25 0 8:11am 122 U/L 45-129 [facility], [address] [place] [address] 71373 Alkaline Phosphatase March 11, 2020 12:14pm 129 U/L 45-129 [facility], [address] [place] [address] 84973 Alkaline Phosphatase March 02, 2020 11:00am 136 U/L 45-129 [facility], [address] [place] [address] 85009 Alkaline Phosphatase February 26, 2020 10:02a m 147 U/L 45-129 [facility], [address] [place] [address] 61636 Alkaline Phosphatase February 20, 2020 8:35a m 149 U/L 45-129 [facility], [address] [place] [address] 88464 Amylase Level August 09, 2020 7:35pm 39 U/L 30-118 [facility], [address] [place] [address] 42645 Amylase Level August 03, 2020 2:35pm 31 U/L 30-118 [facility], [address] [place] [address] 89644 Amylase Level May 17, 2020 7:20pm 39 U/L 30-118 [facility], [address] [place] [address] 65630 Amylase Level March 25, 2020 8:11am 35 U/L 30-118 [facility], [address] [place] [address] 93123 Lipase August 09, 2020 7:35pm 90 U/L 73-393 [facility], [address] [place] [address] 50288 Lipase August 03, 2020 2:35pm 68 U/L 73-393 [facility], [address] [place] [address] 21010 Lipase May 17, 2020 7:20pm 89 U/L 73-393 [facility], [address] [place] [address] 39261 Lipase March 25, 2020 8:11am 97 U/L 73-393 [facility], [address] [place] [address] 89496 Lipase March 11, 2020 12:14pm 128 U/L 73-393 [facility], [address] [place] [address] 11708 Calcium Level August 09, 2020 7:35pm 9.5 mg/dL 8.5-10.1 [facility], [address] [place] [address] 71015 Calcium Level August 03, 2020 2:35pm 9.1 mg/dL 8.5-10.1 [facility], [address] [place] [address] 95923 Calcium Level July 01, 2020 9:40pm 9.2 mg/dL 8.5-10.1 [facility], [address] [place] [address] 89706 Calcium Level May 18, 2020 6:17am 8.5 mg/dL 8.5-10.1 Delta: 9.6 on 05/17/20-2019Repeated by: Roderick Cee 05/18/20 0824.Result Confirmation: 8.3 # mg/dL [facility], [address] [place] [address] 31492 Calcium Level March 25, 2020 8:11am 8.9 mg/dL 8.5-10.1 [facility], [address] [place] [address] 03910 Calcium Level March 11, 2020 12:14pm 8.6 mg/dL 8.5-10.1 [facility], [address] [place] [address] 51753 Calcium Level March 02, 2020 11:00am 9.0 mg/dL 8.5-10.1 [facility], [address] [place] [address] 82825 Calcium Level February 26, 2020 10:02am 9.0 mg/dL 8.5-10.1 [facility], [address] [place] [address] 74500 Calcium Level February 20, 2020 8:35am 9.4 mg/dL 8.5-10.1 [facility], [address] [place] [address] 55477 Total Bilirubin August 09, 2020 7:35pm 0.3 mg/dL 0.3-1.2 [facility], [address] [place] [address] 56160 Total Bilirubin August 03, 2020 2:35pm 0.4 mg/dL 0.3-1.2 [facility], [address] [place] [address] 49355 Total Bilirubin July 01, 2020 9:40pm 0.3 mg/dL 0.3-1.2 [facility], [address] [place] [address] 30075 Total Bilirubin May 18, 2020 6:17a m 0.3 mg/dL 0.3-1.2 [facility], [address] [place] [address] 42299 Total Bilirubin March 25, 2020 8:11am 0.2 mg/dL 0.3-1.2 [facility], [address] [place] [address] 10274 Total Bilirubin March 11, 2020 12:14pm 0.2 mg/dL 0.3-1.2 [facility], [address] [place] [address] 89313 Total Bilirubin March 02, 2020 11:00am 0.4 mg/dL 0.3-1.2 [facility], [address] [place] [address] [id number] Total Bilirubin February 26, 2020 10:02am 0.3 mg/dL 0.3-1.2 [facility], [address] [place] [address] [id number] Total Bilirubin February 20, 2020 8:35am 0.3 mg/dL 0.3-1.2 [facility], [address] [place] [address] [id number] Albumin August 09, 2020 7:35pm 3.6 g/dL 3.2-4.8 [facility], [address] [place] [address] Albumin August 03, 2020 2:35pm 3.5 g/dL 3.2-4.8 [facility], [address] [place] [address] Albumin July 01, 2020 9:40pm 3.5 g/dL 3.2-4.8 [facility], [address] [place] [address] Albumin May 18, 2020 6:17am 3.0 g/dL 3.2-4.8 [facility], [address] [place] [address] Albumin March 25, 2020 8:11am 3.0 g/dL 3.2-4.8 [facility], [address] [place], [place] [id number] Albumin March 11, 2020 12:14pm 3.2 g/dL 3.2-4.8 [facility], [address] [place] [address] [id number] Albumin March 02, 2020 11:00am 3.1 g/dL 3.2-4.8 [facility], [address] [place], [place] [id number] Albumin February 26, 2020 10:02am 3.4 g/dL 3.2-4.8 [facility], [address] [place] [address] [id number] Albumin February 20, 2020 8:35am 3.5 g/dL 3.2-4.8 [facility], [address] [place] [address] [id number] Serum Total Protein August 09, 020 7:35pm 8.2 g/dL 5.7-8.2 [facility], [address] [place] [address] Serum Total Protein August 03, 020 2:35pm 8.1 g/dL 5.7-8.2 [facility], [address] [place] [address] Serum Total Protein July 01 9:40pm 8.0 g/dL 5.7-8.2 [facility], [address] [place] [address] Serum Total Protein May 18, 2020 6:17am 6.6 g/dL 5.7-8.2 [facility], [address] [place], [place] [id number] Serum Total Protein March 25, 2020 8:11a m 7.7 g/dL 5.7-8.2 [facility], [address] [place] [address] [id number] Serum Total Protein March 11, 2020 12:14p m 7.6 g/dL 5.7-8.2 [facility], [address] [place] [address] [id number] Serum Total Protein March 02, 2020 11:00a m 7.9 g/dL 5.7-8.2 [facility], [address] [place] [address] [id number] Serum Total Protein February 26, 2020 10:02am 7.6 g/dL 5.7-8.2 [facility], [address] [place] [address] 24086 Serum Total Protein February 20, 2020 8:35am 7.9 g/dL 5.7-8.2 [facility], [address] [place] [address] 61444 Lactic Acid Level July 01, 2020 9:40p m 1.0 mmol/L 0.5-2.2 [facility], [address] [place] [address] 33166 Human Chorionic Gonadotropin, Quant August 09, 2020 7:35pm 94881 mIU/mL 0-10 APPROXIMATE GESTATION AGE APRROX IMATE HCG RANGE 0-1 WEEK 0 - 50 1-2 WEEKS 40 - 300 2-3 WEEKS 100 - 1,000 3-4 WEEKS 500 - 6,000 1-2 MONTHS 5,000 - 200,000 2-3 MONTHS 10,000 - 100,000 2ND TRIMESTER 3,000 - 50,000 3RD TRIMESTER 1,000 - 50,000 [facility], [address] [place] [address] 60653 Human Chorionic Gonadotropin, Quant August 14, 2020 9:31am 89941 mIU/mL 0-10 APPROXIMATE GESTATION AGE APRROX IMATE HCG RANGE 0-1 WEEK 0 - 50 1-2 WEEKS 40 - 300 2-3 WEEKS 100 - 1,000 3-4 WEEKS 500 - 6,000 1-2 MONTHS 5,000 - 200,000 2-3 MONTHS 10,000 - 100,000 2ND TRIMESTER 3,000 - 50,000 3RD TRIMESTER 1,000 - 50,000 [facility], [address] [place] [address] 48245 Human Chorionic Gonadotropin, Quant August 03, 2020 2:35pm 75611 mIU/mL 0-10 APPROXIMATE GESTATION AGE APRROX IMATE HCG RANGE 0-1 WEEK 0 - 50 1-2 WEEKS 40 - 300 2-3 WEEKS 100 - 1,000 3-4 WEEKS 500 - 6,000 1-2 MONTHS 5,000 - 200,000 2-3 MONTHS 10,000 - 100,000 2ND TRIMESTER 3,000 - 50,000 3RD TRIMESTER 1,000 - 50,000 [facility], [address] [place] [address] 39549 Human Chorionic Gonadotropin, Quant July 01, 2020 [...] - 50,000 [facility], [address] [place] [address] 38465 Thyroid Stimulating Hormone (TSH) Ju ly 2019 10:02am 1.84 uIU/mL 0.35-5.50 [facility], [address] [place] [address] 85981 Serum Test, Qualitative De cember 2019 2:35pm Positive NEGATIVE [facility], [address] [place], [place] [id number] Serum Test, Qualitative No vember 2019 9:40pm Negative NEGATIVE [facility], [address] [place] [address] 52288 Serum Test, Qualitative Se ptember 2019 7:20pm Negative NEGATIVE [facility], [address] [place] [address] Serum Test, Qualitative Au kem 2019 8:11am Negative NEGATIVE [facility], [address] [place] [address] 78174 Urine HCG, Qualitative March 11 11:00am Negative NEGATIVE [facility], [address] [place] [address] 07906 Urine HCG, Qualitative March 02 11:00am Negative NEGATIVE [facility], [address] [place] [address] 86751 Urine HCG, Qualitative February 19 8:32am Negative NEGATIVE [facility], [address] [place] [address] 92017 Coronavirus (COVID-19)(PCR) March 252019 2:30pm Not detected Not Detec dee This test was developed and its performa nce characteristicsdetermined by [employer]. This test has not beenFDA cleared or [...] result in this assay.Performed at: [facility] [id number] Director: Deisy Hdez MD, Phone: [phone] [facility] , [address] [place] [phone] Urine Random Creatinine February 27 7:19am 234.0 mg/dL THERE IS NO ESTABLISHED RANGE FOR RANDOM URINE CREATININE [facility] [address] Urine Microalbumin February 28, 2020 7:19am 13.7 mg/L 0.0-29.9 [facility] [address] Urine Microalbumin/Creatinine Ratio February 28, 2020 7:19am 5.8 ug/mg 0.0-30.0 [facility], [address] [place] [address] 97313 Hemoglobin A1c February 26, 2020 10:02am 5.3 [...] glucose control. * High risk of developing senior living complications such asretinopathy, nephropathy, neuropathy, cardiopathy, etc. Some danger of hypoglycemic reaction in Type I diabetics.Some glucose intolerant individuals and "Sub Clinical"diabetics may demonstrate HGBA1C levels in this area. [facility], [address] [place] [address] 38423 Estimated Average Glucose (eAG) February 26, 2020 10:02am 105 mg/dl An A1C of 7% - the goal of diabetic therapy - is equivalentto an EAG of 154 mg/dl. [facility], [address] [place] [address] 17726 Microbiology Results Procedure Source Result Collection Date/Time Result Date/Time Result Comment Performing Site Urine Culture Urine,voided August 09, 2020 8:06pm August 11, 2020 7:16am [facility], [address] [place] [address] 36044 Urine Culture Urine,clean catch August 03, 2020 2:50pm August 04, 2020 11:45am [facility], [address] [place] [address] Urine Culture Urine,voided July 01, 2020 9:30pm June 232019 7:24am [facility], [address] [place] [address] 07097 Urine Culture Urine,voided May 18, 2020 1:15am Septembe 2019 11:25am [facility], [address] [place] [address] Urine Culture Urine,clean catch March 25, 2020 9:05am March 26, 2020 1:36pm [facility], [address] [place] [address] Urine Culture Urine,clean catch March 11, 2020 12:00pm March 12, 020 1:24pm [facility], [address] [place] [address] Urine Culture Urine,voided March 05, 2020 3:29pm March 06 9:18am [facility], [address] [place] [address] 03163 Urine Culture Urine,voided March 02, 2020 11:48am March 03, 2 020 8:26am [facility], [address] [place] [address] 13273 Streptococcus Rapid Screen Throat March 13, 2020 10:34am March 14, 2 020 8:58am [facility], [address] [place] [address] 96309 Streptococcus Rapid Screen Throat March 13, 2020 10:34am March 13, 020 11:04am [facility], [address] [place] [address] Blood Culture Venous blood No growth. July 01, 2020 9:40pm June [id number] 9:46pm [facility], [address] [place] [address] SARS-CoV-2 (PCR) Interpretation Naso pharyngeal No Organisms Detected July 01, 2020 9:45pm July 01, 2020 10:29pm [facility], [address] [place] [address] Nasal BinaxNow Covid - 19 Ag Negative July 30, 2020 9:45am July 302019 11:56am [facility], [address] [place] [address] Gastrointestinal Tract Panel (PCR) Stool C. difficile toxin detected May 17, 2020 3:03pm May 17, 2020 5:25pm [facility], [address] [place] [address] Respiratory Panel (PCR) Nasopharyngeal No Organisms Detected May 18, 2020 1:40am May 18, 2020 2:49am [facility], [address] [place] [address] Diagnostic Imaging Reports Report Dictated Date/Time Dictated By Status Radiology Report February 28, 2020 9:48am [place] [address] [phone] NAME SEX PT STATUS ACCOUNT NUMBER ANNA MARIE BELTRAN REG REF [id number] ORDERING PHYSICIAN LOCATION MEDICAL RECORD NO. Jose Nia [id number] ATTENDING PHYSICIAN DATE OF DATE OF EXAM/TIME [...] 02, 2020 1:53pm Warren Bourne MD completed [facility] [address] [place] [address] [phone] NAME SEX PT STATUS ACCOUNT NUMBER ANNA MARIE BELTRAN [facility] ER [id number] ORDERING PHYSICIAN LOCATION MEDICAL RECORD NO. Sameer Islas MD [id number] ATTENDING PHYSICIAN DATE OF DATE OF EXAM/TIME Jose Kramer DO 1995 03/02/20 / 0 TYPE / EXAM CT Abd/pel w/ contrast [...] 12, 2020 2:59pm Oliverio Chen MD completed [facility] [address] [place] [id number] [phone] NAME SEX PT STATUS ACCOUNT NUMBER ANNA MARIE BELTRAN REG REF [id number] ORDERING PHYSICIAN LOCATION MEDICAL RECORD NO. Pola Meadosw MD [id number] ATTENDING PHYSICIAN DATE OF DATE OF EXAM/TIME [...] 25, 2020 10:18am Oliverio Chen MD completed [place] [address] [place] [address] [phone] NAME SEX PT STATUS ACCOUNT NUMBER ANNA MARIE BELTRAN [facility] ER [id number] ORDERING PHYSICIAN LOCATION MEDICAL RECORD NO. Hiren Perez MD ER [id number] ATTENDING PHYSICIAN DATE OF DATE OF EXAM/TIME [...] Time (in secs): Radiology Report May 17 0 9:41pm Ulisses Sethi MD completed [place] [address] [place] [address] [phone] NAME SEX PT STATUS ACCOUNT NUMBER ANNA MARIE BELTRAN [facility] ER [id number] ORDERING PHYSICIAN LOCATION MEDICAL RECORD NO. Mikhail Sheriff MD ER [id number] ATTENDING PHYSICIAN DATE OF DATE OF EXAM/TIME [...] MD Techn: JANAE Trans Dt/Tm: Trans by: LUPIS Hugot Dt/Tm: : Total DLP = 1196.00 mGy-cm : Total Radiation Dose = 17.9400 mSv Lifetime Dose: 34.7550 mS v Radiology Report July 01, 2020 10:55p m Telly Robledo MD completed [place] [address] [place] [address] [phone] NAME SEX PT STATUS ACCOUNT NUMBER ANNA MARIE BELTRAN [facility] ER [id number] ORDERING PHYSICIAN LOCATION MEDICAL RECORD NO. Mikhail Sheriff MD ER [id number] ATTENDING PHYSICIAN DATE OF DATE OF EXAM/TIME [...] Trans Dt/Tm: Trans by: DT Prt Dt/Tm: 5638-9555: Total DLP = 0.00 mGy-cm Fluoroscopy Time (in secs): Radiology Report July 01, 2020 11:07p m Niels Wilkerson MD completed [place] [address] [place] [address] [phone] NAME SEX PT STATUS ACCOUNT NUMBER ANNA MARIE BELTRAN [facility] [id number] ORDERING PHYSICIAN LOCATION MEDICAL RECORD NO. Mikhail Sheriff MD ER [id number] ATTENDING PHYSICIAN DATE OF DATE OF EXAM/TIME [...] 2020 7:33p m Gibran Villa MD completed [facility] [address] [place] [id number] [phone] NAME SEX PT STATUS ACCOUNT NUMBER ANNA MARIE BELTRAN [facility] ER [id number] ORDERING PHYSICIAN LOCATION MEDICAL RECORD NO. Daljit Alex MD ER [id number] ATTENDING PHYSICIAN DATE OF DATE OF EXAM/TIME [...] 2020 7:59p m Telly Robledo MD completed [facility] [address] [place] [address] [phone] NAME SEX PT STATUS ACCOUNT NUMBER ANNA MARIE BELTRAN [facility] ER [id number] ORDERING PHYSICIAN LOCATION MEDICAL RECORD NO. Daljit Alex MD ER [id number] ATTENDING PHYSICIAN DATE OF DATE OF EXAM/TIME [...] 03, 2020 7:34p m Gibran Villa MD [address] [address] [phone] NAME SEX PT STATUS ACCOUNT NUMBER ANNA MARIE BELTRAN [facility] ER [id number] ORDERING PHYSICIAN LOCATION MEDICAL RECORD NO. Daljit Alex MD ER [id number] ATTENDING PHYSICIAN DATE OF DATE OF EXAM/TIME Nicol Sebastian NP 1995 08/03/201858 TYPE / EXAM US OB Ultrasound <14 weeks REASON FOR EXAM RLQ PAIN; R/O ECTOPIC [address] [address] [phone] NAME SEX PT STATUS ACCOUNT NUMBER ANNA MARIE BELTRAN [facility] ER [id number] ORDERING PHYSICIAN LOCATION MEDICAL RECORD NO. Daljit Alex MD ER [id number] ATTENDING PHYSICIAN DATE OF DATE OF EXAM/TIME [...] 2020 9:02p m Telly Robledo MD completed [facility] [address] [place] [id number] [phone] NAME SEX PT STATUS ACCOUNT NUMBER ANNA MARIE BELTRAN [facility] [id number] ORDERING PHYSICIAN LOCATION MEDICAL RECORD NO. Mikhail Sheriff MD [id number] ATTENDING PHYSICIAN DATE OF DATE OF EXAM/TIME Nicol Sebastian NP 1995 08/09/202038 TYPE / EXAM US OB Ultrasound <14 weeks REASON FOR EXAM Gen abd pain. +HCG CANDIE BELTRANELYNN Vivian [id number] 1995 ADDENDUM Clinical History/Indication for Exam: Gen [...] Ocampo Dt/Tm: Trans by: DT Prt Dt/Tm: [id number]: Total DLP = 0.00 mGy-cm 0562-2012: Total Radiation Dose = 0.0000 mSv Lifetime Dose: 56.7900 mSv Radiology Report August 14, 2020 11:09am Oliverio Chen MD completed [place] [address] [place] [address] [phone] NAME SEX PT STATUS ACCOUNT NUMBER ANNA MARIE BELTRAN [facility] REF [id number] ORDERING PHYSICIAN LOCATION MEDICAL RECORD NO. Jarret Herbert MD [id number] ATTENDING PHYSICIAN DATE OF DATE OF EXAM/TIME Nicol Sebastian NP 1995 08/14/20915 TYPE / EXAM US OB Ultrasound <14 weeks REASON FOR EXAM FOLLOW UP SUBCHOR/ EARLY COMPARISON: August 19, 2020 and 2019 FINDINGS: Gestation: Single [place]-rump length: Singlemm compatible with a Single week Single day gestational age. Yolk sac: Not seen No heart rate detected. Uterus: 8.5 x 4.6 x 7.0cm. A subchorionic hemorrhage is still seen. Average ultrasound age of 5 weeks 6 days. EDC: April 10, 2021. [place]-rump length: 3.4mm IMPRESSION: 1. Gestational sac measurements, unchanged. 2. Subarachnoid hemorrhage is still seen. 3. Linear intraamniotic echogenicity, possibly the pole. No heart rate detected. Reported By Oliverio Chen MD on 08/14/20 1109 Signed By Oliverio Chen MD on 08/14/20 1114 Date Time CC: Nicol Sebastian; Oliverio Chen MD Techn: WON Trans Dt/Tm: Trans by: DT Prt Dt/Tm: [id number]: Total DLP = 0.00 mGy-cm 3680-8064: Total Radiation Dose = 0.0000 mSv Lifetime Dose: 56.7900 mSv Radiology Report August 09, 2020 9:05p vivian Robledo MD completed [facility] [address] [place] [address] [phone] NAME SEX PT STATUS ACCOUNT NUMBER ANNA MARIE BELTRAN [facility] [id number] ORDERING PHYSICIAN LOCATION MEDICAL RECORD NO. Mikhail Sheriff MD [id number] ATTENDING PHYSICIAN DATE OF DATE OF EXAM/TIME RomuloNicol RESPITE CARE PROVIDER 1995 08/09/202039 TYPE / EXAM US OB Transvaginal REASON FOR EXAM PAIN [place] [id number] [place], [place] [address] [phone] NAME SEX PT STATUS ACCOUNT NUMBER ANNA MARIE BELTRAN [facility] ER [id number] ORDERING PHYSICIAN LOCATION MEDICAL RECORD NO. Mikhail Sheriff MD ER [id number] ATTENDING PHYSICIAN DATE OF DATE OF EXAM/TIME RomuloNicol RESPITE CARE PROVIDER 1995 08/09/202038 TYPE / EXAM US OB Ultrasound <14 weeks REASON FOR EXAM Gen abd pain. +HCG ANNA MARIE BELTRAN [id number] 1995 ADDENDUM Clinical History/Indication for Exam: Gen [...] Trans Dt/Tm: Trans by: DT Prt Dt/Tm: [id number]: Total DLP = 0.00 mGy-cm : Total Radiation Dose = 0.0000 mSv Lifetime Dose: 56.7900 mSv Reported By Telly Robledo MD on 08/09/202104 Signed By Telly Robledo MD on 08/14/20 1245 Date Time CC: Nicol Sebastian; Telly Robledo MD Techn: CARLONA Trans Dt/Tm: Trans by: DT Prt Dt/Tm: 0510-7084: Total DLP = 0.00 mGy-cm 2740-8687: Total Radiation Dose = 0.0000 mSv Lifetime Dose: 56.7900 mSv Health Concerns Health Concerns may be documented in an alternate section. Advance Directives Advance Directive Response Recorded Date/Time Advanced Directive No 2019 11:38am MOLST No August 14, 2020 11:38am Advance Directives on File or in chart? No August 14, 2020 11:38am Does Patient have a DNR? 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 Initial Visit Hernia Reason for Visit Anxiety Depression GERD (gastroesophageal [...] Bianka Sen MD Departed Physician/Provider Office Visit -[facility] February 20, 2020 10:22am February [...] 2020 4:29pm null Departed Physician/Provider Office Visit -[facility] March 11, 2020 9:28am March 11, 2020 10:13am Trice Aj NP Departed Physician/Provider Office Visit -[facility] March 11, 2020 10:17am March 11, 2020 11:49am Pola Meadows MD Registered Referred -Laboratory March 11, 2020 11:56am Trice Aj NP Registered Referred -Ultrasound March 12, 2020 11:38am Pola Meadows MD Departed Physician/Provider Office Visit -[facility] March 12, 2020 12:22pm March 12, 2020 2:13pm Trice Aj NP Departed Emergency -Emergency Room ER March 13, 2020 9:18am March 13, 2020 10:18am null Departed Emergency -Emergency Room ER March 25, 2020 7:55am March 25, 2020 9:27am null Departed Physician/Provider Office Visit -[facility] March 25, 2020 2:51pm March 25, 2020 2:52pm Nathalie Pace Registered Referred -Lab Drop Off March 25, 2020 3:08pm Nathalie Pace Departed Physician/Provider Office Visit -[facility] March 28, 2020 7:01am March 28, 2020 7:47am Trice Aj NP Registered Outpatient -[facility] Internal Medicine April 05, 2020 8:29am Trice Aj NP Registered Referred -Laboratory May 17, 2020 1:48pm Trice longoria NP Discharged Inpatient -[facility] May 18, 2020 12:18am May 18, 2020 2:40pm Tad Menendez MD Registered Outpatient -[facility] May 20, 2020 2:25pm Amara Garcia RN Departed Physician/Provider Office Visit -[facility] May 23, 2020 7:51am May 23, 2020 8:35am Trice Aj NP Departed Physician/Provider Office Visit -[facility] May 30, 2020 9:25am May 30, 2020 11:56am Nicol Sebastian NP Departed Physician/Provider Office Visit -[facility] June 10, 2020 8:26am June 10, 2020 8:58am Jarret Herbert MD Departed Physician/Provider Office Visit -[facility] June 28, 2020 3:47pm June 28, 2020 4:33pm Nicol Sebastian NP Departed Physician/Provider Office Visit -[facility] July 01, 2020 9:04am July 01, 2020 11:04am Nicol Sebastian NP Registered Referred -Laboratory July 01, 2020 9:47am Kiersten Schulz DO Departed Emergency -Emergency Room ER July 01, 2020 8:40pm July 02, 2020 12:20am null Departed Physician/Provider Office Visit -[facility] July 04, 2020 11:14am July 04, 2020 12:47pm Nicol Sebastian NP Departed Physician/Provider Office Visit -[facility] July 25, 2020 9:54am July 25, 2020 10:57am Nicol Sebastian NP Registered Referred -Laboratory July 30, 2020 9:45am Jaki lEias MD Departed Emergency -Emergency Room ER August 03, 2020 1:29pm August 03, 2020 8:21pm null Departed Emergency -Emergency Room ER August 09, 2020 6:19pm August 10, 2020 5:45am null Registered Referred -Ultrasound August 14, 2020 9:29am Jarret jade MD Departed Physician/Provider Office Visit -[facility] August 14, 2020 9:41am August 14, 2020 11:45am Jarret Herbert MD Departed Physician/Provider Office Visit -[facility] General Surgery August 20, 2020 9:00am August 20, 2020 9:20am Barrett Sparks MD Recent Diagnosis Onset Date Anxiety Depression [...] Response Neil e Recorded Functional Status Complete [place] May 18, 2020 1:30am Goals Goals may be documented in an alternate section. Immunizations No Immunization Information Available Mental Status Observation Response Neil e Recorded Cognitive Status Normal Cognition May 18, 2020 1:30am Medical Equipment No Medical Equipment Information available Insurance Providers Guarantor ANNA MARIE BELTRAN Address [address] [place] [address] Contact Info. Home Phone: Payer Policy Id Coverage Id Subscriber's Name Subscriber Id Effective Date Expiration Date [facility] [id number] ANNA MARIE BELTRAN [id number] [facility] [id number] ANNA MARIE BELTRAN [id number] MEDICAID [facility] [id number] ANNA MARIE BELTRAN [id number] MEDICAID [id number] ANNA MARIE BELTRAN [id number] Self Pay Self N/A Plan of Treatment [...] aware of the patient as well. 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 Increase diet and exercise. Referral to [facility] for chronic inflammation. Elevate legs. Sertaline 100 mg daily and seroquel 50 [...] . July 26, 2020 for upper GI. [place] foods rice, applesauce, bananas, and toast. Resolved. [...] at this time, d/t recent move to [place]. Will continue current meds and will refer to psych. 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 Taking [...] palpation without abnormal physical find ings. 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 [...] with PO vancomycin Trice dimas NP Email: [email or web address] Phone: [facility] [address] [facility] [address] Call for an appointment to be seen in the next 48 hours Jose Kramer DO Email: [email or web address] Phone: [phone] [facility] [address] Call for an appointment for follow-up for Wednesday or Wednesday Jose Kramer DO Email: [email or web address] Phone: [phone] [facility] [phone] Future Procedures Future procedure information is unavailable [...] Status Date of Observation Never smoker August 14, 2020 11: 38am Observation Status Date of Observation Patient currently August 14, 2020 Observation Status Observation Response Neil e of Response Smoking Status Never smoker August 14, 2020 11:38am Assigned Sex Female Vital Signs Vital Reading [...] 2020 3:02pm Respiratory rate 20 /min 12-24 February 14th, 2020 3:02pm Oxygen saturation by Pulse oximetry [...]
--- OUTSIDE RECORDS SUMMARY | 2020-10-18 09:52 | CCD | Continuity of Care Document ---
Author Author [facility] Organization [facility] Address [address] [place] [address] Phone Support Name Relationship Address Phone Jose Kramer PRS [address] [place] [address] Rachel Senn Bianka PRS [address] [place] [address] John Islas PRS [address] [place] [address] [place] [address] Pola Meadows [place] [address] Pola Meadows PRS [address] [place] [address] Hiren Perez PRS [address] [place] [address] Nathalie Pace PRS [address] [place] [address] Verónica Sheriff PRS [address] [place] [address] Tad Menendez PRS [address] [place] [address] Amara Garcia PRS Unknown Unavailable Nicol Sebastian PRS [address] [place] [address] Darnell Herbert PRS [address] [place] [address] Kiersten Schulz PRS [address] [place] [address] [place] [address] Daljit Alex PRS [address] [place] [address] Niels Valdez PRS [address] [place] [address] Allergies, Adverse Reactions, Alerts Allergen Type Severity [...] PUFFS IH 2 Times Per Day 1 March 28, 2020 7:4 6am April 24, [...] 9:11pm July 04, 2020 11:42am Hydroxyzine Hcl Active 25 MG PO 2 Times Per Day August 09, 2020 6:34pm Doxylamine Succinate (Unisom (Doxylamine)) 25 mg Table [...] CE LLS PO 2 Times Per Day 180 May 06, 2020 12:39pm May 17, 2020 [...] 2020 10:51am July 01, 2020 9:14am Sertraline Active 100 MG PO At Bedtime July 31, 2020 9:19am Budesonide-Formoterol Discontinued 2 PUFFS IH 2 Times Per Day August 06, 2020 8:13am August 06, 2020 8:27am Budesonide-Formoterol Active 2 PUFFS IH 2 Times Per Day August 06, 2020 8:27am Pyridoxine (Vitamin B6) (Vitamin B-6) 25 mg tablet Active 25 MG PO daily August 06, 2020 9:27am Take one tab by mouth da wyatt. Problems Active Problems Medical Problem Onset Date [...] completed US OB Transvaginal August 09 8:40pm active Urine Culture August 09, 2020 completed US [...] 182019 completed Gastrointestinal Tract Panel (PCR) S eper 2019 completed Xray Chest 2 view PA/LAT [...] 09 0 7:35pm 9.9 10e3/uL 4.45-10.71 [facility], [address] [address] White Blood Count August 14 0 9:31am 9.8 10e3/uL 4.45-10.71 [facility], [address] [place] [address] White Blood Count August 03 0 2:35pm 8.6 10e3/uL 4.45-10.71 [facility], [address] [place] [address] White Blood Count July 01, 2020 9:40p m 11.2 10e3/uL 4.45-10.71 [facility], [address] [address] White Blood Count May 18 6:17am 9.3 10e3/uL 4.45-10.71 [facility], [address] [place] [address] White Blood Count March 25, 2020 8:11am 10.8 10e3/uL 4.45-10.71 [facility], [address] [place] [address] White Blood Count March 11, 2020 12:14pm 11.3 10e3/uL 4.45-10.71 [facility], [address] [place] [address] White Blood Count March 02, 2020 11:00am 10.3 10e3/uL 4.45-10.71 [facility], [address] [place] [address] White Blood Count February 26, 2020 10:02am 9.8 10e3/uL 4.45-10.71 [facility], [address] [place] [address] White Blood Count February 20, 2020 8:35am 8.8 10e3/uL 4.45-10.71 [facility], [address] [place] [address] [id number] Red Blood Count August 09, 2020 7:35pm 4.49 10e6/uL 4.20-5.40 [facility], [address] [place] [address] 17673 Red Blood Count August 14, 2020 9:31am 4.57 10e6/uL 4.20-5.40 [facility], [address] [place] [address] [id number] Red Blood Count August 03, 2020 2:35pm 4.47 10e6/uL 4.20-5.40 [facility], [address] [place] [address] [id number] Red Blood Count July 01, 2020 9:40pm 4.51 10e6/uL 4.20-5.40 [facility], [address] [place] [address] 38981 Red Blood Count May 18, 2020 6:17a m 4.10 10e6/uL 4.20-5.40 [facility], [address] [place] [address] [id number] Red Blood Count March 25, 2020 8:11am 4.25 10e6/uL 4.20-5.40 [facility], [address] [place] [address] [id number] Red Blood Count March 11, 2020 12:14pm 4.58 10e6/uL 4.20-5.40 [facility], [address] [place] [address] [id number] Red Blood Count March 02, 2020 11:00am 4.52 10e6/uL 4.20-5.40 [facility], [address] [place], [place] [id number] Red Blood Count February 26, 2020 10:02am 4.84 10e6/uL 4.20-5.40 [facility], [address] [place] [address] Red Blood Count February 20, 2020 8:35am 5.02 10e6/uL 4.20-5.40 [facility], [address] [place], [place] [id number] Hemoglobin August 09, 2020 7:35pm 11.4 g/dL 10.7-15.4 [facility], [address] [place] [address] Hemoglobin August 14, 2020 9:31am 11.4 g/dL 10.7-15.4 [facility], [address] [place] [address] Hemoglobin August 03, 2020 2:35pm 11.5 g/dL 10.7-15.4 [facility], [address] [place], [place] [id number] Hemoglobin July 01, 2020 9:40pm 11.8 g/dL 10.7-15.4 [facility], [address] [place], [place] [id number] Hemoglobin May 18, 2020 6:17am 10.9 g/dL 10.7-15.4 [facility], [address] [place], [place] [id number] Hemoglobin March 25, 2020 8:11am 11.5 g/dL 10.7-15.4 [facility], [address] [place], [place] [id number] Hemoglobin March 11, 2020 12:14pm 12.4 g/dL 10.7-15.4 [facility], [address] [place], [place] [id number] Hemoglobin March 02, 2020 11:00am 12.1 g/dL 10.7-15.4 [facility], [address] [place] [address] [id number] Hemoglobin February 26, 2020 10:02am 13.0 g/dL 10.7-15.4 [facility], [address] [place], [place] [id number] Hemoglobin February 20, 2020 8:35am 13.4 g/dL 10.7-15.4 [facility], [address] [place] [address] Hematocrit August 09, 2020 7:35pm 36.1 % 37-47 [facility], [address] [place] [address] [id number] Hematocrit August 14, 2020 9:31am 36.3 % 37-47 [facility], [address] [place] [address] 38974 Hematocrit August 03, 2020 2:35pm 36.1 % 37-47 [facility], [address] [place] [address] 02539 Hematocrit July 01, 2020 9:40pm 36.6 % 37-47 [facility], [address] [place] [address] 29756 Hematocrit May 18, 2020 6:17am 34.1 % 37-47 [facility], [address] [place] [address] 19816 Hematocrit March 25, 2020 8:11am 34.7 % 37-47 [facility], [address] [place] [address] 50420 Hematocrit March 11, 2020 12:14pm 37.2 % 37-47 [facility], [address] [place] [address] 77481 Hematocrit March 02, 2020 11:00am 36.9 % 37-47 [facility], [address] [place] [address] 64175 Hematocrit February 26, 2020 10:02am 39.4 % 37-47 [facility], [address] [place] [address] 12903 Hematocrit February 20, 2020 8:35am 41.0 % 37-47 [facility], [address] [place] [address] 58555 Mean Corpuscular Volume July 7:35pm 80.4 fl 80-96 [facility], [address] [place] [address] 04417 Mean Corpuscular Volume July 9:31am 79.4 fl 80-96 [facility], [address] [place] [address] 15644 Mean Corpuscular Volume July 2:35pm 80.8 fl 80-96 [facility], [address] [place] [address] 74964 Mean Corpuscular Volume June 9:40pm 81.2 fl 80-96 [facility], [address] [place] [address] 34174 Mean Corpuscular Volume May 182019 6:17am 83.2 fl 80-96 [facility], [address] [place] [address] 49864 Mean Corpuscular Volume March 25, 2020 8:11am 81.6 fl [facility], [address] [place] [address] 29806 Mean Corpuscular Volume March 11 020 12:14pm 81.[address] [place], [place] [address], [address] [place] [address] 79266 Mean Corpuscular Volume March 02, 020 11:00am 81.[address] [place] [address] LABORATORY, [address] [place] [address] 11056 Mean Corpuscular Volume February 25 10:02am 81.[address] [place], [place] [address], [address] [address] 44689 Mean Corpuscular Volume February 19 020 8:35am 81.7 fl [facility], [address] [place] [address] 89158 Mean Corpuscular Hemoglobin August 09, 2020 7:35pm 25.4 pg 27-31 [facility], [address] [place] [address] 35126 Mean Corpuscular Hemoglobin August 14, 2020 9:31am 24.9 pg 27-31 [facility], [address] [place] [address] 58387 Mean Corpuscular Hemoglobin August 03, 2020 2:35pm 25.7 pg 27-31 [facility], [address] [place] [address] 48978 Mean Corpuscular Hemoglobin July 01, 2020 9:40pm 26.2 pg 27-31 [facility], [address] [place] [address] 63248 Mean Corpuscular Hemoglobin 2019 6:17am 26.6 pg 27-31 [facility], [address] [place] [address] 34614 Mean Corpuscular Hemoglobin March 252019 8:11am 27.1 pg 27-31 [facility], [address] [place] [address] 00694 Mean Corpuscular Hemoglobin February 12:14pm 27.1 pg 27-31 [facility], [address] [place] [address] 04482 Mean Corpuscular Hemoglobin February 11:00am 26.8 pg 27-31 [facility], [address] [place] [address] 29970 Mean Corpuscular Hemoglobin February 10:02am 26.9 pg 27-31 [facility], [address] [place] [address] 57253 Mean Corpuscular Hemoglobin January 8:35am 26.7 pg - [facility], [address] [place] [address] 96978 Mean Corpuscular Hemoglobin Concent August 09, 2020 7:35pm 31.6 g/dl [address] [place] [address] LABORATORY, [address] [place] [address] 10902 Mean Corpuscular Hemoglobin Concent August 14, 2020 9:31am 31.4 g/dl [address] [place] [address] LABORATORY, [address] [place] [address] 10890 Mean Corpuscular Hemoglobin Concent August 03, 2020 2:35pm 31.9 g/dl [address] [place] [address] LABORATORY, [address] [place] [address] 97903 Mean Corpuscular Hemoglobin Concent July 01, 2020 9:40pm 32.2 g/dl [address] [place] [address] LABORATORY, [address] [place] [address] 53730 Mean Corpuscular Hemoglobin Concent May 18, 2020 6:17am 32.0 g/dl [address] [place] [address] LABORATORY, [address] [place] [address] 25485 Mean Corpuscular Hemoglobin Concent March 25, 2020 8:11am 33.1 g/dl [address] [place] [address] LABORATORY, [address] [place] [address] 96019 Mean Corpuscular Hemoglobin Concent March 11, 2020 12:14pm 33.3 g/dl [address] [place] [address] LABORATORY, [address] [place] [address] 77864 Mean Corpuscular Hemoglobin Concent March 02, 2020 11:00am 32.8 g/dl [address] [place] [address] LABORATORY, [address] [place] [address] 29792 Mean Corpuscular Hemoglobin Concent February 26, 2020 10:02am 33.0 g/dl [address] [place] [address] LABORATORY, [address] [place] [address] 79789 Mean Corpuscular Hemoglobin Concent February 20, 2020 8:35am 32.7 g/dl [address] [place] [address] LABORATORY, [address] [place] [address] 73881 Red Cell Distribution Width August 09, 2020 7:35pm 14 % 11- [facility], [address] [place] [address] 80319 Red Cell Distribution Width August 14, 2020 9:31am 15 % 11-15 [facility], [address] [place] [address] 38644 Red Cell Distribution Width August 03, 2020 2:35pm 14 % 11-15 [facility], [address] [place] [address] Red Cell Distribution Width July 01, 2020 9:40pm 14 % 11-15 [facility], [address] [place] [address] 00188 Red Cell Distribution Width 2019 6:17am 14 % 11-15 [facility], [address] [place] [address] 63434 Red Cell Distribution Width March 252019 8:11am 15 % 11-15 [facility], [address] [place] [address] Red Cell Distribution Width February 12:14pm 15 % 11-15 [facility], [address] [place] [address] 48461 Red Cell Distribution Width February 11:00am 14 % 11-15 [facility], [address] [place] [address] 71740 Red Cell Distribution Width February 10:02am 14 % 11-15 [facility], [address] [place] [address] 14652 Red Cell Distribution Width January 8:35am 15 % 11-15 [facility], [address] [place] [address] 46320 Platelet Count August 09, 2020 7:35pm 423 10e3/ul 130-472 [facility], [address] [place] [address] Platelet Count August 14, 2020 9:31am 429 10e3/ul 130-472 [facility], [address] [place] [address] 09028 Platelet Count August 03, 2020 2:35pm 372 10e3/ul 130-472 [facility], [address] [place] [address] 00856 Platelet Count July 01, 2020 9:40pm 392 10e3/ul 130-472 [facility], [address] [place] [address] 64955 Platelet Count May 18, 2020 6:17am 332 10e3/ul 130-472 [facility], [address] [place] [address] 78113 Platelet Count March 25, 2020 8:11am 395 10e3/ul 130-472 [facility], [address] [place] [address] 19806 Platelet Count March 11, 2020 12:14pm 460 10e3/ul 130-472 [facility], [address] [place] [address] Platelet Count March 02, 2020 11:00am 410 10e3/ul 130-472 [facility], [address] [place] [address] Platelet Count February 26, 2020 10:02am 436 10e3/ul 130-472 [facility], [address] [place] [address] Platelet Count February 20, 2020 8:35am 479 10e3/ul 130-472 [facility], [address] [place] [address] 16415 Mean Platelet Volume August 09, 2020 7:35pm 8.9 fl 9.1-13.1 [facility], [address] [place] [address] Mean Platelet Volume August 14, 2020 9:31am 8.9 fl 9.1-13.1 [facility], [address] [place] [address] Mean Platelet Volume August 03, 2020 2:35pm 9.0 fl 9.1-13.1 [facility], [address] [place] [address] 93468 Mean Platelet Volume July 01 020 9:40pm 8.6 fl 9.1-13.1 [facility], [address] [place] [address] Mean Platelet Volume May 18, 2020 6:17am 8.6 fl 9.1-13.1 [facility], [address] [place] [address] 78802 Mean Platelet Volume March 25 0 8:11am 8.3 fl 9.1-13.1 [facility], [address] [place] [address] Mean Platelet Volume March 11, 2020 12:14pm 8.4 fl 9.1-13.1 [facility], [address] [place] [address] 96479 Mean Platelet Volume March 02, 2020 11:00am 8.6 fl 9.1-13.1 [facility], [address] [place] [address] Mean Platelet Volume February 26, 2020 10:02a m 8.7 fl 9.1-13.1 [facility], [address] [place] [address] Mean Platelet Volume February 20, 2020 8:35a m 8.7 fl 9.1-13.1 [facility], [address] [place] [address] 47497 Neutrophils (%) (Auto) July 7:35pm 71.3 % [address] [place] [address] LABORATORY, [address] [place] [address] 94412 Neutrophils (%) (Auto) July 9:31am 63.7 % [address] [place] [address] LABORATORY, [address] [place] [address] 13060 Neutrophils (%) (Auto) July 2:35pm 68.8 % [address] [place] [address] LABORATORY, [address] [place], [place] [id number] Neutrophils (%) (Auto) July 01, 2020 9:40pm 66.3 % [address] [place] [address] LABORATORY, [address] [place] [address] 35102 Neutrophils (%) (Auto) April 6:17am 66.1 % [address] [place] [address], [address] [place] [address] 85414 Neutrophils (%) (Auto) March 25 020 8:11am 58.4 % [address] [place] [address], [address] [place] [address] 18410 Neutrophils (%) (Auto) March 11 12:14pm 72.2 % [address] [place] [address] LABORATORY, [address] [place] [address] 41045 Neutrophils (%) (Auto) March 02 11:00am 65.4 % [address] [place] [address] LABORATORY, [address] [place] [address] 40422 Neutrophils (%) (Auto) February 25 0 10:02am 62.6 % [address] [place] [address] LABORATORY, [address] [place] [address] 99470 Neutrophils (%) (Auto) February 19 8:35am 62.4 % [address] [place] [address] LABORATORY, [address] [place] [address] 72028 Absolute Neutrophil August 09, 2 020 7:35pm 7.0 # 1.7-7.6 [facility], [address] [place] [address] 05311 Absolute Neutrophil August 14, 020 9:31am 6.2 # 1.7-7.6 [facility], [address] [place] [address] 34271 Absolute Neutrophil August 03, 020 2:35pm 5.9 # 1.7-7.6 [facility], [address] [place] [address] 46634 Absolute Neutrophil July 01 9:40pm 7.5 # 1.7-7.6 [facility], [address] [place] [address] 18892 Absolute Neutrophil May 18, 2020 6:17am 6.1 # 1.7-7.6 [facility], [address] [place] [address] 66537 Absolute Neutrophil March 25, 2020 8:11a m 6.3 # 1.7-7.6 [facility], [address] [place] [address] 24823 Absolute Neutrophil March 11, 2020 12:14p m 8.1 # 1.7-7.6 [facility], [address] [place] [address] 86095 Absolute Neutrophil March 02, 2020 11:00a m 6.7 # 1.7-7.6 [facility], [address] [place] [address] 10346 Absolute Neutrophil February 26, 2020 10:02am 6.1 # 1.7-7.6 [facility], [address] [place] [address] 57730 Absolute Neutrophil February 20, 2020 8:35am 5.5 # 1.7-7.6 [facility], [address] [place] [address] 17955 Lymphocytes (%) (Auto) July 7:35pm 19.4 % 14-46 [facility], [address] [place] [address] 84583 Lymphocytes (%) (Auto) July 9:31am 25.9 % 1446 [facility], [address] [place] [address] 36303 Lymphocytes (%) (Auto) July 2:35pm 20.2 % 14-46 [facility], [address] [place] [address] 48662 Lymphocytes (%) (Auto) July 01, 2020 9:40pm 21.4 % 14-46 [facility], [address] [place] [address] 59022 Lymphocytes (%) (Auto) April 6:17am 22.8 % 14-46 [facility], [address] [place] [address] 35785 Lymphocytes (%) (Auto) March 25 8:11am 30.4 % 14-46 [facility], [address] [place] [address] 57846 Lymphocytes (%) (Auto) March 11 12:14pm 19.0 % 14-46 [facility], [address] [place] [address] 78348 Lymphocytes (%) (Auto) March 02 11:00am 23.6 % 14-46 [facility], [address] [place] [address] 11003 Lymphocytes (%) (Auto) February 25 0 10:02am 25.4 % 14-46 [facility], [address] [place] [address] 46734 Lymphocytes (%) (Auto) February 19 8:35am 26.5 % 14-46 [facility], [address] [place] [address] 31990 Lymphocytes # (Auto) August 09, 2020 7:35pm 1.9 # 0.6-4.6 [facility], [address] [place] [address] [id number] Lymphocytes # (Auto) August 14, 2020 9:31am 2.5 # 0.6-4.6 [facility], [address] [place] [address] [id number] Lymphocytes # (Auto) August 03, 2020 2:35pm 1.7 # 0.6-4.6 [facility], [address] [place] [address] [id number] Lymphocytes # (Auto) July 01 020 9:40pm 2.4 # 0.6-4.6 [facility], [address] [place] [address] [id number] Lymphocytes # (Auto) May 18, 2020 6:17am 2.1 # 0.6-4.6 [facility], [address] [place] [address] [id number] Lymphocytes # (Auto) March 25 0 8:11am 3.3 # 0.6-4.6 [facility], [address] [place] [address] [id number] Lymphocytes # (Auto) March 11, 2020 12:14pm 2.1 # 0.6-4.6 [facility], [address] [place] [address] [id number] Lymphocytes # (Auto) March 02, 2020 11:00am 2.4 # 0.6-4.6 [facility], [address] [place] [address] [id number] Lymphocytes # (Auto) February 26, 2020 10:02a m 2.5 # 0.6-4.6 [facility], [address] [place] [address] [id number] Lymphocytes # (Auto) February 20, 2020 8:35a m 2.3 # 0.6-4.6 [facility], [address] [place] [address] [id number] Monocytes (%) (Auto) August 09, 2020 7:35pm 7.0 % 412 [facility], [address] [place] [address] [id number] Monocytes (%) (Auto) August 14, 2020 9:31am 6.9 % [address] [facility], [address] [place] [address] [id number] Monocytes (%) (Auto) August 03, 2020 2:35pm 8.3 % [address] [facility], [address] [place] [address] [id number] Monocytes (%) (Auto) July 01, 020 9:40pm 8.9 % [address] [facility], [address] [place] [address] [id number] Monocytes (%) (Auto) May 18, 2020 6:17am 8.7 % [address] [facility], [address] [place] [address] [id number] Monocytes (%) (Auto) March 25 0 8:11am 7.7 % [address] [place] [address] [facility], [address] [place] [address] [id number] Monocytes (%) (Auto) March 11, 2020 12:14pm 5.5 % [address] [facility], [address] [place] [address] [id number] Monocytes (%) (Auto) March 02, 2020 11:00am 7.8 % [address] [facility], [address] [place] [address] [id number] Monocytes (%) (Auto) February 26, 2020 10:02a m 8.2 % [address] [facility], [address] [place] [address] [id number] Monocytes (%) (Auto) February 20, 2020 8:35a m 8.0 % [address] [facility], [address] [place] [address] [id number] Monocytes # August 09, 2020 7:35pm 0.7 # 0.2-1.2 [facility], [address] [place] [address] [id number] Monocytes # August 14, 2020 9:31am 0.7 # 0.2-1.2 [facility], [address] [place] [address] [id number] Monocytes # August 03, 2020 2:35pm 0.7 # 0.2-1.2 [facility] [facility], [address] [place] [address] [id number] Monocytes # July 01, 2020 9:40pm 1.0 # 0.2-1.2 [facility], [address] [place] [address] [id number] Monocytes # May 18, 2020 6:17am 0.8 # 0.2-1.2 [facility], [address] [address] [id number] Monocytes # March 25, 2020 8:11am 0.8 # 0.2-1.2 [facility], [address] [address] [id number] Monocytes # March 11, 2020 12:14pm 0.6 # 0.2-1.2 [facility], [address] [place] [address] [id number] Monocytes # March 02, 2020 11:00am 0.8 # 0.2-1.2 [facility], [address] [place] [address] 44425 Monocytes # February 26, 2020 10:02am 0.8 # 0.2-1.2 [facility], [address] [place] [address] 32453 Monocytes # February 20, 2020 8:35am 0.7 # 0.2-1.2 [facility], [address] [address] 10025 Eosinophils (%) (Auto) July 7:35pm 1.8 % 0-7 [facility], [address] [address] 78589 Eosinophils (%) (Auto) July 9:31am 3.0 % 0-7 [facility], [address] [place] [address] 23283 Eosinophils (%) (Auto) July 2:35pm 2.2 % 0-7 [facility], [address] [address] 79900 Eosinophils (%) (Auto) July 01, 2020 9:40pm 2.7 % 0-7 [facility], [address] [place] [address] 65046 Eosinophils (%) (Auto) April 6:17am 1.9 % 0-7 [facility], [address] [place] [address] 85159 Eosinophils (%) (Auto) March 25 8:11am 2.7 % 0-7 [facility], [address] [place] [address] 87595 Eosinophils (%) (Auto) March 11 12:14pm 2.5 % 0-7 [facility], [address] [address] 51078 Eosinophils (%) (Auto) March 02 11:00am 2.4 % 0-7 [facility], [address] [place] [address] 92199 Eosinophils (%) (Auto) February 25 0 10:02am 3.1 % 0-7 [facility], [address] [place] [address] 42548 Eosinophils (%) (Auto) February 19 8:35am 2.6 % 0-7 [facility], [address] [place] [address] 95612 Absolute Eosinophils (CBC) August 09, 2020 7:35pm 0.2 # 0.0-0.5 [facility], [address] [place] [address] 14109 Absolute Eosinophils (CBC) August 14, 2020 9:31am 0.3 # 0.0-0.5 [facility], [address] [place] [address] 50391 Absolute Eosinophils (CBC) August 03, 2020 2:35pm 0.2 # 0.0-0.5 [facility], [address] [place] [address] 46896 Absolute Eosinophils (CBC) July 01, 2020 9:40pm 0.3 # 0.0-0.5 [facility], [address] [place] [address] 27281 Absolute Eosinophils (CBC) May 18, 2020 6:17am 0.2 # 0.0-0.5 [facility], [address] [place] [address] 56702 Absolute Eosinophils (CBC) March 8:11am 0.3 # 0.0-0.5 [facility], [address] [place] [address] 12027 Absolute Eosinophils (CBC) February 12:14pm 0.3 # 0.0-0.5 [facility], [address] [place] [address] 61505 Absolute Eosinophils (CBC) February 11:00am 0.3 # 0.0-0.5 [facility], [address] [place] [address] 87703 Absolute Eosinophils (CBC) February 26, 2020 10:02am 0.3 # 0.0-0.5 [facility], [address] [place] [address] Absolute Eosinophils (CBC) January 8:35am 0.2 # 0.0-0.5 [facility], [address] [place] [address] 77745 Basophils (%) (Auto) August 09, 2020 7:35pm 0.3 % 0.4-1.3 [facility], [address] [place] [address] Basophils (%) (Auto) August 14, 2020 9:31am 0.3 % 0.4-1.3 [facility], [address] [place] [address] Basophils (%) (Auto) August 03, 2020 2:35pm 0.3 % 0.4-1.3 [facility], [address] [place] [address] 55126 Basophils (%) (Auto) July 01 020 9:40pm 0.4 % 0.4-1.3 [facility], [address] [place] [address] 32851 Basophils (%) (Auto) May 18, 2020 6:17am 0.3 % 0.4-1.3 [facility], [address] [place] [address] 84351 Basophils (%) (Auto) March 25 0 8:11am 0.5 % 0.4-1.3 [facility], [address] [place] [address] 33847 Basophils (%) (Auto) March 11, 2020 12:14pm 0.4 % 0.4-1.3 [facility], [address] [place] [address] 49611 Basophils (%) (Auto) March 02, 2020 11:00am 0.5 % 0.4-1.3 [facility], [address] [place] [address] 15213 Basophils (%) (Auto) February 26, 2020 10:02a m 0.4 % 0.4-1.3 [facility], [address] [place] [address] 88628 Basophils (%) (Auto) February 20, 2020 8:35a m 0.3 % 0.4-1.3 [facility], [address] [place] [address] 74075 Absolute Basophils (CBC) August 092019 7:35pm 0.0 # 0.0-0.2 [facility], [address] [place] [address] 84428 Absolute Basophils (CBC) August 142019 9:31am 0.0 # 0.0-0.2 [facility], [address] [place] [address] 73424 Absolute Basophils (CBC) August 032019 2:35pm 0.0 # 0.0-0.2 [facility], [address] [place] [address] 65557 Absolute Basophils (CBC) June 9:40pm 0.0 # 0.0-0.2 [facility], [address] [place] [address] 45105 Absolute Basophils (CBC) April 242019 6:17am 0.0 # 0.0-0.2 [facility], [address] [place] [address] 21787 Absolute Basophils (CBC) March 25, 2020 8:11am 0.1 # 0.0-0.2 [facility], [address] [place] [address] 03651 Absolute Basophils (CBC) March 11, 2020 12:14pm 0.0 # 0.0-0.2 [facility], [address] [place] [address] 43948 Absolute Basophils (CBC) March 02, 2020 11:00am 0.1 # 0.0-0.2 [facility], [address] [place] [address] 43754 Absolute Basophils (CBC) February 25 10:02am 0.0 # 0.0-0.2 [facility], [address] [place] [address] 38177 Absolute Basophils (CBC) February 20, 2020 8:35am 0.0 # 0.0-0.2 [facility], [address] [place] [address] 92882 Immature Granulocyte % (Auto) Decemb er 2019 7:35pm 0.2 % 0-2 [facility], [address] [place] [address] 55465 Immature Granulocyte % (Auto) Decemb er 2019 9:31am 0.2 % 0-2 [facility], [address] [place] [address] 56386 Immature Granulocyte % (Auto) Decemb er 2019 2:35pm 0.2 % 0-2 [facility], [address] [place] [address] 27831 Immature Granulocyte % (Auto) Novem2019 9:40pm 0.3 % 0-2 [facility], [address] [place] [address] 93676 Immature Granulocyte % (Auto) 2019 6:17am 0.2 % 0-2 [facility], [address] [place] [address] 48213 Immature Granulocyte % (Auto) March 25, 2020 8:11am 0.3 % 0-2 [facility], [address] [place] [address] 75827 Immature Granulocyte % (Auto) February 212019 12:14pm 0.4 % 0-2 [facility], [address] [place] [address] 50581 Immature Granulocyte % (Auto) February 202019 11:00am 0.3 % 0-2 [facility], [address] [place] [address] 24547 Immature Granulocyte % (Auto) February 252019 10:02am 0.3 % 0-2 [facility], [address] [place] [address] 69256 Immature Granulocyte % (Auto) January 232019 8:35am 0.2 % 0-2 [facility], [address] [place] [address] 38831 Absolute Immature Granulocyte (auto August 09, 2020 7:35pm 0.0 # 0-0.1 [facility], [address] [place] [address] 08967 Absolute Immature Granulocyte (auto August 14, 2020 9:31am 0.0 # 0-0.1 [facility], [address] [place] [address] 67146 Absolute Immature Granulocyte (auto August 03, 2020 2:35pm 0.0 # 0-0.1 [facility], [address] [place] [address] 69308 Absolute Immature Granulocyte (auto July 01, 2020 9:40pm 0.0 # 0-0.1 [facility], [address] [place] [address] 77078 Absolute Immature Granulocyte (auto May 18, 2020 6:17am 0.0 # 0-0.1 [facility], [address] [place] [address] 96994 Absolute Immature Granulocyte (auto March 25, 2020 8:11am 0.0 # 0-0.1 [facility], [address] [place] [address] 43713 Absolute Immature Granulocyte (auto March 11, 2020 12:14pm 0.0 # 0-0.1 [facility], [address] [place] [address] Absolute Immature Granulocyte (auto March 02, 2020 11:00am 0.0 # 0-0.1 [facility], [address] [place] [address] Absolute Immature Granulocyte (auto February 26, 2020 10:02am 0.0 # 0-0.1 [facility], [address] [place] [address] Absolute Immature Granulocyte (auto February 20, 2020 8:35am 0.0 # 0-0.1 [facility], [address] [place] [address] 99921 Add Manual Differential July 7:35pm No [facility], [address] [place] [address] 69083 Add Manual Differential July 9:31am No [facility], [address] [place] [address] 80716 Add Manual Differential July 2:35pm No [facility], [address] [place] [address] 64414 Add Manual Differential June 9:40pm No [facility], [address] [place] [address] 05332 Add Manual Differential May 182019 6:17am No [facility], [address] [place] [address] 43288 Add Manual Differential March 25, 2020 8:11am No [facility], [address] [place] [address] 59932 Add Manual Differential March 11 12:14pm No [facility], [address] [place] [address] Add Manual Differential March 02 11:00am No [facility], [address] [place] [address] 16999 Add Manual Differential February 25 10:02am No [facility], [address] [place] [address] 54837 Add Manual Differential February 19 020 8:35am No [facility], [address] [place] [address] 64159 Differential Total Cells Counted Apr 7:20pm 100 [facility], [address] [place] [address] 43404 Neutrophils (Manual) May 17, 2020 7:20pm 77 % 41-77 [facility], [address] [place] [address] 94854 Band Neutrophils May 17 0 7:20pm 3 % 0-5 [facility], [address] [place] [address] 36864 Lymphocytes (Manual) May 17, 2020 7:20pm 17 % 14-46 [facility], [address] [place] [address] 91518 Monocytes (Manual) May 17 020 7:20pm 3 % 4-12 [facility], [address] [place] [address] 23752 Platelet Estimate May 17 7:20pm Appears normal NORMAL [facility], [address] [place] [address] 67706 RBC Morphology 2 May 17 0 7:20pm Appears normal NORMAL [facility], [address] [place] [address] 29293 Urine Color May 18, 2020 12:15am Yellow [facility], [address] [place] [address] 27291 Urine Color February 20, 2020 8:40am Yellow [facility], [address] [place] [address] 81340 Urine Color August 09, 2020 8:06pm Yellow [facility], [address] [place] [address] 23015 Urine Color August 03, 2020 2:50pm Yellow [facility], [address] [place] [address] 60024 Urine Color July 01, 2020 9:30pm Yellow [facility], [address] [place] [address] 26594 Urine Color March 25, 2020 8:05am Yellow [facility], [address] [place] [address] 18699 Urine Color March 11, 2020 11:00am Yellow [facility], [address] [place] [address] 13018 Urine Color March 05, 2020 2:29pm Yellow [facility], [address] [place] [address] 73792 Urine Color March 02, 2020 10:48am Yellow [facility], [address] [place] [address] 95470 Urine Appearance August 09, 2020 8:06p m Clear CLEAR [facility], [address] [place] [address] 65420 Urine Appearance August 03, 2020 2:50p m Clear CLEAR [facility], [address] [place] [address] 92751 Urine Appearance July 01, 2020 9:30pm Cloudy CLEAR [facility], [address] [place] [address] 41893 Urine Appearance May 18 0 12:15am Clear CLEAR [facility], [address] [place] [address] 09235 Urine Appearance March 25, 2020 8:05am Cloudy CLEAR [facility], [address] [place] [address] 38369 Urine Appearance March 11, 2020 11:00am Cloudy CLEAR [facility], [address] [place] [address] 19280 Urine Appearance March 05, 2020 2:29pm Cloudy CLEAR [facility], [address] [place] [address] 70573 Urine Appearance March 02, 2020 10:48am Cloudy CLEAR [facility], [address] [place] [address] 69659 Urine Appearance February 20, 2020 8:40am Turbid CLEAR [facility], [address] [place] [address] 55563 Urine pH August 09, 2020 8:06pm 6.5 [facility], [address] [place] [address] 29904 Urine pH August 03, 2020 2:50pm 7.5 [facility], [address] [place] [address] 83705 Urine pH July 01, 2020 9:30pm 6.0 [facility], [address] [place] [address] 21433 Urine pH May 18, 2020 12:15am 6.0 [facility], [address] [place] [address] 24553 Urine pH March 25, 2020 8:05am 5.5 [facility], [address] [place] [address] 94787 Urine pH March 11, 2020 11:00am 6.5 [facility], [address] [place] [address] 07611 Urine pH March 05, 2020 2:29pm 6.0 [facility], [address] [place] [address] 55595 Urine pH March 02, 2020 10:48am 5.5 [facility], [address] [place] [address] 88089 Urine pH February 20, 2020 8:40am 5.5 [facility], [address] [place] [address] 23446 Urine Specific [place] July 8:06pm 1.022 [facility], [address] [place] [address] 97809 Urine Specific [place] July 2:50pm 1.020 [facility], [address] [place] [address] 90805 Urine Specific [place] July 01, 2020 9:30pm 1.026 [facility], [address] [place] [address] Urine Specific [place] April 12:15am >1.045 [facility], [address] [place] [address] Urine Specific [place] March 25 8:05am 1.025 [facility], [address] [place] [address] Urine Specific [place] March 11 11:00am 1.025 [facility], [address] [place] [address] Urine Specific [place] March 05 2:29pm 1.021 [facility], [address] [place] [address] Urine Specific [place] March 02 10:48am 1.025 [facility], [address] [place] [address] Urine Specific [place] February 19 8:40am 1.023 [facility], [address] [place] [address] Urine Leukocyte Esterase April 242019 12:15am Negative NEGATIVE [facility], [address] [place] [address] Urine Leukocyte Esterase February 20, 2020 8:40am Moderate NEGATIVE [facility], [address] [place] [address] Urine Leukocyte Esterase August 092019 8:06pm Small NEGATIVE A Culture has been added to this specimen per established criteria [facility], [address] [place] [address] Urine Leukocyte Esterase August 032019 2:50pm Small NEGATIVE A Culture has been added to this specimen per established criteria [facility], [address] [place] [address] Urine Leukocyte Esterase June 9:30pm Small NEGATIVE A Culture has been added to this specimen per established criteria [facility], [address] [place] [address] Urine Leukocyte Esterase March 25, 2020 8:05am Trace NEGATIVE A Culture has been added to this specimen per established criteria [facility], [address] [place] [address] Urine Leukocyte Esterase March 11, 2020 11:00am Trace NEGATIVE A Culture has been added to this specimen per established criteria [facility], [address] [place] [address] Urine Leukocyte Esterase March 05, 2020 2:29pm Trace NEGATIVE A Culture has been added to this specimen per established criteria [facility], [address] [place] [address] Urine Leukocyte Esterase March 02, 2020 10:48am Trace NEGATIVE A Culture has been added to this specimen per established criteria [facility], [address] [place] [address] 75328 Urine Nitrite May 18, 2020 12:15am Negative NEGATIVE [facility], [address] [place] [address] 63134 Urine Nitrite February 20, 2020 8:40am Negative NEGATIVE [facility], [address] [place] [address] 68983 Urine Nitrate August 09, 2020 8:06pm Negative NEGATIVE [facility], [address] [place] [address] 80555 Urine Nitrate August 03, 2020 2:50pm Negative NEGATIVE [facility], [address] [place] [address] 00677 Urine Nitrate July 01, 2020 9:30pm Negative NEGATIVE [facility], [address] [place] [address] Urine Nitrate March 25, 2020 8:05am Negative NEGATIVE [facility], [address] [place] [address] 94973 Urine Nitrate March 11, 2020 11:00am Negative NEGATIVE [facility], [address] [place] [address] Urine Nitrate March 05, 2020 2:29pm Negative NEGATIVE [facility], [address] [place] [address] 13652 Urine Nitrate March 02, 2020 10:48am Negative NEGATIVE [facility], [address] [place] [address] 02072 Urine Protein August 09, 2020 8:06pm Negative NEGATIVE [facility], [address] [place] [address] 87296 Urine Protein August 03, 2020 2:50pm Negative NEGATIVE [facility], [address] [place] [address] 89836 Urine Protein July 01, 2020 9:30pm Trace NEGATIVE [facility], [address] [place] [address] Urine Protein May 18, 2020 12:15am Negative NEGATIVE [facility], [address] [place] [address] 20083 Urine Protein March 25, 2020 8:05am Negative NEGATIVE [facility], [address] [place] [address] 39581 Urine Protein March 11, 2020 11:00am Trace NEGATIVE [facility], [address] [place] [address] 79848 Urine Protein March 05, 2020 2:29pm Trace NEGATIVE [facility], [address] [place] [address] 38501 Urine Protein March 02, 2020 10:48am Negative NEGATIVE [facility], [address] [place] [address] Urine Protein February 20, 2020 8:40am 30 mg/dl NEGATIVE [facility], [address] [place] [address] 49433 Urine Glucose August 09, 2020 8:06pm Negative NEGATIVE [facility], [address] [place] [address] 21378 Urine Glucose August 03, 2020 2:50pm Negative NEGATIVE [facility], [address] [place] [address] 41845 Urine Glucose July 01, 2020 9:30pm Negative NEGATIVE [facility], [address] [place] [address] 57493 Urine Glucose May 18, 2020 12:15am Negative NEGATIVE [facility], [address] [place] [address] 09343 Urine Glucose March 25, 2020 8:05am Negative NEGATIVE [facility], [address] [place] [address] 80940 Urine Glucose March 11, 2020 11:00am Negative NEGATIVE [facility], [address] [place] [address] [id number] Urine Glucose March 05, 2020 2:29pm Negative NEGATIVE [facility], [address] [place] [address] [id number] Urine Glucose March 02, 2020 10:48am Negative NEGATIVE [facility], [address] [place] [address] [id number] Urine Glucose February 20, 2020 8:40am Negative NEGATIVE [facility], [address] [place] [address] [id number] Urine Ketones August 09, 2020 8:06pm Negative NEGATIVE [facility], [address] [place] [address] [id number] Urine Ketones August 03, 2020 2:50pm Negative NEGATIVE [facility], [address] [place] [address] [id number] Urine Ketones July 01, 2020 9:30pm Trace NEGATIVE [facility], [address] [place] [address] [id number] Urine Ketones May 18, 2020 12:15am Negative NEGATIVE [facility], [address] [place] [address] [id number] Urine Ketones March 25, 2020 8:05am Trace NEGATIVE [facility], [address] [place] [address] [id number] Urine Ketones March 11, 2020 11:00am Trace NEGATIVE [facility], [address] [place] [address] [id number] Urine Ketones March 05, 2020 2:29pm Negative NEGATIVE [facility], [address] [place] [address] [id number] Urine Ketones March 02, 2020 10:48am Negative NEGATIVE [facility], [address] [place] [address] [id number] Urine Ketones February 20, 2020 8:40am Trace NEGATIVE [facility], [address] [place] [address] [id number] Urine Urobilinogen August 09 8:06pm 1 eu/dl [facility], [address] [place] [address] [id number] Urine Urobilinogen August 03 2:50pm 1 eu/dl [facility], [address] [place] [address] Urine Urobilinogen July 01 9:30pm 1 eu/dl [facility], [address] [place] [address] [id number] Urine Urobilinogen May 18 12:15am 0.2 eu/dl [facility], [address] [place] [address] [id number] Urine Urobilinogen March 25, 2020 8:05am 1 eu/dl [facility], [address] [place] [address] [id number] Urine Urobilinogen March 11, 2020 11:00am 1 eu/dl [facility], [address] [place] [address] [id number] Urine Urobilinogen March 05, 2020 2:29pm 0.2 eu/dl [facility], [address] [place] [address] [id number] Urine Urobilinogen March 02, 2020 10:48am 1 eu/dl [facility], [address] [place] [address] Urine Urobilinogen February 20, 2020 8:40am 1 eu/dl [facility], [address] [place] [address] [id number] Urine Bilirubin August 09, 2020 8:06pm Negative NEGATIVE [facility], [address] [place] [address] [id number] Urine Bilirubin August 03, 2020 2:50pm Negative NEGATIVE [facility], [address] [place] [address] [id number] Urine Bilirubin July 01, 2020 9:30pm Negative NEGATIVE [facility], [address] [place] [address] [id number] Urine Bilirubin May 18, 2020 12:15am Negative NEGATIVE [facility], [address] [place] [address] [id number] Urine Bilirubin March 25, 2020 8:05am Negative NEGATIVE [facility], [address] [place] [address] [id number] Urine Bilirubin March 11, 2020 11:00am Negative NEGATIVE [facility], [address] [place] [address] [id number] Urine Bilirubin March 05, 2020 2:29pm Negative NEGATIVE [facility], [address] [address] Urine Bilirubin March 02, 2020 10:48am Negative NEGATIVE [facility], [address] [place] [address] Urine Bilirubin February 20, 2020 8:40am Negative NEGATIVE [facility], [address] [place] [address] Urine Blood May 18, 2020 12:15am Negative NEGATIVE [facility], [address] [place] [address] [id number] Urine Blood February 20, 2020 8:40am Large NEGATIVE [facility], [address] [place] [address] Urine Blood August 09, 2020 8:06pm Moderate NEGATIVE A Culture has been added to this specimen per established criteria [facility], [address] [place] [address] Urine Blood August 03, 2020 2:50pm Small NEGATIVE [facility], [address] [address] [id number] Urine Blood July 01, 2020 9:30pm Moderate NEGATIVE A Culture has been added to this specimen per established criteria [facility], [address] [place] [address] Urine Blood March 25, 2020 8:05am Negative NEGATIVE [facility], [address] [place] [address] Urine Blood March 11, 2020 11:00am Negative NEGATIVE [facility], [address] [place] [address] Urine Blood March 05, 2020 2:29pm Large NEGATIVE A Culture has been added to this specimen per established criteria [facility], [address] [place] [address] Urine Blood March 02, 2020 10:48am Trace NEGATIVE [facility], [address] [place] [address] Microscopic Urinalysis Comment Septe 2019 12:15am No [facility], [address] [place] [address] Microscopic Urinalysis Comment February 20, 2020 8:40am Microscopic added [facility], [address] [place] [address] Add Urine Microanalysis July 8:06pm Microscopic added [facility], [address] [place] [address] [id number] Add Urine Microanalysis July 2:50pm Microscopic added [facility], [address] [place] [address] Add Urine Microanalysis June 9:30pm Microscopic added [facility], [address] [place] [address] Add Urine Microanalysis March 25, 2020 8:05am Microscopic added [facility], [address] [place] [address] Add Urine Microanalysis March 11 11:00am Microscopic added [facility], [address] [place] [address] Add Urine Microanalysis March 05 020 2:29pm Microscopic added [facility], [address] [place] [address] Add Urine Microanalysis March 02 020 10:48am Microscopic added [facility], [address] [place] [address] Urine RBC August 09, 2020 8:06pm 1-2 /hpf [facility], [address] [place] [address] Urine RBC August 03, 2020 2:50pm 6-10 /hpf [facility], [address] [place] [address] Urine RBC July 01, 2020 9:30pm Occasional /hpf [facility], [address] [place] [address] Urine RBC March 05, 2020 2:29pm 3-5 /hpf [facility], [address] [place] [address] Urine RBC March 02, 2020 10:48am Occasional /hpf [facility], [address] [place] [address] Urine WBC February 20, 2020 8:40am 20-30 /hpf [facility], [address] [place] [address] Urine WBC August 09, 2020 8:06pm 1-2 /hpf [facility], [address] [place] [address] Urine WBC August 03, 2020 2:50pm 20-30 /hpf [facility], [address] [place] [address] Urine WBC July 01, 2020 9:30pm Occasional /hpf [facility], [address] [place] [address] Urine WBC March 25, 2020 8:05am 3-5 /hpf [facility], [address] [place] [address] Urine WBC March 11, 2020 11:00am 3-5 /hpf [facility], [address] [place] [address] Urine WBC March 05, 2020 2:29pm Occasional /hpf [facility], [address] [place] [address] Urine WBC March 02, 2020 10:48am 3-5 /hpf [facility], [address] [place] [address] Urine Squamous Epithelial Cells Dece mb2019 8:06pm Many /hpf [facility], [address] [place] [address] Urine Squamous Epithelial Cells Dece 2019 2:50pm Moderate /hpf [facility], [address] [place] [address] Urine Squamous Epithelial Cells Nove mber 2019 9:30pm Moderate /hpf [facility], [address] [place] [address] Urine Squamous Epithelial Cells Augu 2019 8:05am Many /hpf [facility], [address] [place] [address] Urine Squamous Epithelial Cells March 11, 2020 11:00am Many /hpf [facility], [address] [place] [address] Urine Squamous Epithelial Cells March 05, 2020 2:29pm Many /hpf [facility], [address] [place] [address] Urine Squamous Epithelial Cells March 02, 2020 10:48am Many /hpf [facility], [address] [place] [address] Urine Squamous Epithelial Cells February 20, 2020 8:40am Many /hpf [facility], [address] [place] [address] Urine Bacteria February 20, 2020 8:40am Moderate amount NEGATIVE [facility], [address] [place] [address] Urine Bacteria August 09, 2020 8:06pm Small amount NEGATIVE [facility], [address] [place] [address] Urine Bacteria August 03, 2020 2:50pm Small amount NEGATIVE [facility], [address] [place] [address] Urine Bacteria July 01, 2020 9:30pm Moderate amount NEGATIVE A Culture has been added to this specime n per established criteria [facility], [address] [place] [address] Urine Bacteria March 25, 2020 8:05am Small amount NEGATIVE [facility], [address] [place] [address] Urine Bacteria March 11, 2020 11:00am Small amount NEGATIVE [facility], [address] [place] [address] Urine Bacteria March 05, 2020 2:29pm Small amount NEGATIVE [facility], [address] [place] [address] [id number] Urine Bacteria March 02, 2020 10:48am Small amount NEGATIVE [facility], [address] [place] [address] [id number] Urine Mucus March 25, 2020 8:05am Small amount [facility], [address] [place] [address] [id number] Urine Sperm February 20, 2020 8:40am Few [facility], [address] [place] [address] Blood Urea Nitrogen August 09 020 7:35pm 8 mg/dL 05-15 [facility], [address] [place] [address] Blood Urea Nitrogen August 03 020 2:35pm 5 mg/dL 05-15 [facility], [address] [place] [address] Blood Urea Nitrogen July 01 9:40pm 6 mg/dL 05-15 [facility], [address] [place] [address] Blood Urea Nitrogen May 18, 2020 6:17am 7 mg/dL 05-15 [facility], [address] [place] [address] Blood Urea Nitrogen March 25, 2020 8:11a m 7 mg/dL 05-15 [facility], [address] [place] [address] Blood Urea Nitrogen March 11, 2020 12:14p m 6 mg/dL 05-15 [facility], [address] [place] [address] Blood Urea Nitrogen March 02, 2020 11:00a m 8 mg/dL 05-15 [facility], [address] [place] [address] Blood Urea Nitrogen February 26, 2020 10:02am 7 mg/dL 05-15 [facility], [address] [place] [address] Blood Urea Nitrogen February 20, 2020 8:35am 6 mg/dL 05-15 [facility], [address] [place] [address] [id number] Sodium Level August 09, 2020 7:35pm 141 mmol/L 132-146 [facility], [address] [place] [address] Sodium Level August 03, 2020 2:35pm 138 mmol/L 132-146 [facility], [address] [place] [address] Sodium Level July 01, 2020 9:40pm 141 mmol/L 132-146 [facility], [address] [place] [address] Sodium Level May 18, 2020 6:17am 143 mmol/L 132-146 [facility], [address] [place] [address] 41686 Sodium Level March 25, 2020 8:11am 137 mmol/L 132-146 [facility], [address] [place] [address] 24422 Sodium Level March 11, 2020 12:14pm 140 mmol/L 132-146 [facility], [address] [place] [address] [id number] Sodium Level March 02, 2020 11:00am 139 mmol/L 132-146 [facility], [address] [place] [address] [id number] Sodium Level February 26, 2020 10:02am 138 mmol/L 132-146 [facility], [address] [place] [address] [id number] Sodium Level February 20, 2020 8:35am 138 mmol/L 132-146 [facility], [address] [place] [address] 49707 Potassium Level August 09, 2020 7:35pm 3.9 mmol/L 3.5-5.5 [facility], [address] [place] [address] 79655 Potassium Level August 03, 2020 2:35pm 4.6 mmol/L 3.5-5.5 [facility], [address] [place] [address] [id number] Potassium Level July 01, 2020 9:40pm 3.7 mmol/L 3.5-5.5 [facility], [address] [place] [address] [id number] Potassium Level May 18, 2020 6:17a m 3.8 mmol/L 3.5-5.5 [facility], [address] [place] [address] 49859 Potassium Level March 25, 2020 8:11am 3.7 mmol/L 3.5-5.5 [facility], [address] [place] [address] 23873 Potassium Level March 11, 2020 12:14pm 4.3 mmol/L 3.5-5.5 [facility], [address] [place] [address] [id number] Potassium Level March 02, 2020 11:00am 4.1 mmol/L 3.5-5.5 [facility], [address] [place] [address] [id number] Potassium Level February 26, 2020 10:02am 4.1 mmol/L 3.5-5.5 [facility], [address] [place] [address] 28554 Potassium Level February 20, 2020 8:35am 4.1 mmol/L 3.5-5.5 [facility], [address] [place] [address] 98203 Chloride Level August 09, 2020 7:35pm 111 mmol/l 99-109 [facility], [address] [place] [address] 24817 Chloride Level August 03, 2020 2:35pm 110 mmol/l 99-109 [facility], [address] [address] 07855 Chloride Level July 01, 2020 9:40pm 110 mmol/l 99-109 [facility], [address] [place] [address] 26674 Chloride Level May 18, 2020 6:17am 113 mmol/l 99-109 [facility], [address] [place] [address] 31051 Chloride Level March 25, 2020 8:11am 111 mmol/l 99-109 [facility], [address] [place] [address] [id number] Chloride Level March 11, 2020 12:14pm 111 mmol/l 99-109 [facility], [address] [place] [address] 26908 Chloride Level March 02, 2020 11:00am 111 mmol/l 99-109 [facility], [address] [place] [address] 55513 Chloride Level February 26, 2020 10:02am 107 mmol/l 99-109 [facility], [address] [place] [address] [id number] Chloride Level February 20, 2020 8:35am 108 mmol/l 99-109 [facility], [address] [place] [address] 76221 Carbon Dioxide Level August 09, 2020 7:35pm 24 mmol/l 20-31 [facility], [address] [place] [address] 17062 Carbon Dioxide Level August 03, 2020 2:35pm 21 mmol/l 20-31 [facility], [address] [place] [address] [id number] Carbon Dioxide Level July 01 020 9:40pm 22 mmol/l 20-31 [facility], [address] [place] [address] 71090 Carbon Dioxide Level May 18, 2020 6:17am 25 mmol/l 20-31 [facility], [address] [place] [address] 44267 Carbon Dioxide Level March 25 0 8:11am 21 mmol/l 20-31 [facility], [address] [place] [address] 28557 Carbon Dioxide Level March 11, 2020 12:14pm 20 mmol/l 20-31 [facility], [address] [place] [address] [id number] Carbon Dioxide Level March 02, 2020 11:00am 20 mmol/l 20-31 [facility], [address] [place] [address] [id number] Carbon Dioxide Level February 26, 2020 10:02a m 22 mmol/l 31 [facility], [address] [place] [address] [id number] Carbon Dioxide Level February 20, 2020 8:35a m 21 mmol/l 20-31 [facility], [address] [place] [address] 34728 Anion Gap August 09, 2020 7:35pm 10 mmol/l 8-16 [facility], [address] [place] [address] 35102 Anion Gap August 03, 2020 2:35pm 12 mmol/l 8-16 [facility], [address] [place] [address] [id number] Anion Gap July 01, 2020 9:40pm 13 mmol/l 8-16 [facility], [address] [place] [address] [id number] Anion Gap May 18, 2020 6:17am 9 mmol/l 8-16 [facility], [address] [place] [address] [id number] Anion Gap March 25, 2020 8:11am 9 mmol/l 8-16 [facility], [address] [place] [address] [id number] Anion Gap March 11, 2020 12:14pm 13 mmol/l 8-16 [facility], [address] [place] [address] [id number] Anion Gap March 02, 2020 11:00am 12 mmol/l 8-16 [facility], [address] [place] [address] [id number] Anion Gap February 26, 2020 10:02am 13 mmol/l 8-16 [facility], [address] [place] [address] 33482 Anion Gap February 20, 2020 8:35am 13 mmol/l 8-16 [facility], [address] [place] [address] 47980 Glucose Level August 09, 2020 7:35pm 89 mg/dL 74-106 [facility], [address] [place] [address] [id number] Glucose Level August 03, 2020 2:35pm 87 mg/dL -106 [facility], [address] [place] [address] 89178 Glucose Level July 01, 2020 9:40pm 100 mg/dL 74-106 [facility], [address] [place] [address] 51693 Glucose Level May 18, 2020 6:17am 93 mg/dL 74-106 [facility], [address] [place] [address] 97168 Glucose Level March 25, 2020 8:11am 93 mg/dL 74-106 [facility], [address] [place] [address] [id number] Glucose Level March 11, 2020 12:14pm 88 mg/dL 74-106 [facility], [address] [place] [address] Glucose Level March 02, 2020 11:00am 91 mg/dL 74-106 [facility], [address] [place] [address] [id number] Glucose Level February 26, 2020 10:02am 92 mg/dL 74-106 [facility], [address] [place] [address] [id number] Glucose Level February 20, 2020 8:35am 98 mg/dL 74-106 [facility], [address] [place] [address] [id number] Creatinine August 09, 2020 7:35pm 1.3 mg/dL 0.5-1.1 [facility], [address] [place] [address] Creatinine August 03, 2020 2:35pm 0.8 mg/dL 0.5-1.1 [facility], [address] [place] [address] Creatinine July 01, 2020 9:40pm 0.9 mg/dL 0.5-1.1 [facility], [address] [place] [address] [id number] Creatinine May 18, 2020 6:17am 0.7 mg/dL 0.5-1.1 [facility], [address] [place] [address] Creatinine March 25, 2020 8:11am 0.9 mg/dL 0.5-1.1 [facility], [address] [place] [address] [id number] Creatinine March 11, 2020 12:14pm 1.2 mg/dL 0.5-1.1 [facility], [address] [place] [address] Creatinine March 02, 2020 11:00am 1.0 mg/dL 0.5-1.1 [facility], [address] [place] [address] Creatinine February 26, 2020 10:02am 1.0 mg/dL 0.5-1.1 [facility], [address] [place] [address] [id number] Creatinine February 20, 2020 8:35am 1.1 mg/dL 0.5-1.1 [facility], [address] [place] [address] [id number] Glomerular Filtration Rate Calc Dece 2019 7:35pm 50 ml/min ABOVE 60 [facility], [address] [place] [address] 49187 Glomerular Filtration Rate Calc Dece 2019 2:35pm Greater than 60 ml/min ABOVE 60 [facility], [address] [place] [address] 38198 Glomerular Filtration Rate Calc Nove 2019 9:40pm Greater than 60 ml/min ABOVE 60 [facility], [address] [place] [address] [id number] Glomerular Filtration Rate Calc Sept 2019 6:17am Greater than 60 ml/min ABOVE 60 [facility], [address] [place] [address] 35268 Glomerular Filtration Rate Calc 2019 8:11am Greater than 60 ml/min ABOVE 60 [facility], [address] [place] [address] [id number] Glomerular Filtration Rate Calc March 11, 2020 12:14pm 55 ml/min ABOVE 60 [facility], [address] [place] [address] 43112 Glomerular Filtration Rate Calc March 02, 2020 11:00am Greater than 60 ml/min ABOVE 60 [facility], [address] [place] [address] 75441 Glomerular Filtration Rate Calc February 26, 2020 10:02am Greater than 60 ml/min ABOVE 60 [facility], [address] [place] [address] 43205 Glomerular Filtration Rate Calc February 20, 2020 8:35am Greater than 60 ml/min ABOVE 60 [facility], [address] [place] [address] [id number] Alanine Aminotransferase (ALT/SGPT) August 09, 2020 7:35pm 30 U/L 10-49 [facility], [address] [place] [address] 56129 Alanine Aminotransferase (ALT/SGPT) August 03, 2020 2:35pm 42 U/L 10-49 [facility], [address] [place] [address] [id number] Alanine Aminotransferase (ALT/SGPT) July 01, 2020 9:40pm 43 U/L 10-49 [facility], [address] [place] [address] 80091 Alanine Aminotransferase (ALT/SGPT) May 18, 2020 6:17am 52 U/L 10-49 [facility], [address] [place] [address] [id number] Alanine Aminotransferase (ALT/SGPT) March 25, 2020 8:11am 27 U/L 10-49 [facility], [address] [place] [address] [id number] Alanine Aminotransferase (ALT/SGPT) March 11, 2020 12:14pm 29 U/L 10-49 [facility], [address] [place] [address] [id number] Alanine Aminotransferase (ALT/SGPT) March 02, 2020 11:00am 29 U/L 10-49 [facility], [address] [place] [address] 38465 Alanine Aminotransferase (ALT/SGPT) February 26, 2020 10:02am 33 U/L 10-49 [facility], [address] [place] [address] 25469 Alanine Aminotransferase (ALT/SGPT) February 20, 2020 8:35am 42 U/L 10-49 [facility], [address] [place] [address] 86331 Aspartate Amino Transf (AST/SGOT) De cember 2019 7:35pm 13 U/L 0-33 [facility], [address] [place] [address] [id number] Aspartate Amino Transf (AST/SGOT) De cember 2019 2:35pm 35 U/L 0-33 [facility], [address] [place] [address] 20776 Aspartate Amino Transf (AST/SGOT) No vember 2019 9:40pm 21 U/L 0-33 [facility], [address] [place] [address] [id number] Aspartate Amino Transf (AST/SGOT) Se ptember 2019 6:17am 27 U/L 0-33 [facility], [address] [place] [address] [id number] Aspartate Amino Transf (AST/SGOT) Au kem 2019 8:11am 15 U/L 0-33 [facility], [address] [place] [address] 66136 Aspartate Amino Transf (AST/SGOT) Ju ly 2019 12:14pm 17 U/L 0-33 [facility], [address] [place] [address] 32847 Aspartate Amino Transf (AST/SGOT) Ju ly 2019 11:00am 14 U/L 0-33 [facility], [address] [place] [address] [id number] Aspartate Amino Transf (AST/SGOT) Ju 2019 10:02am 17 U/L 0-33 [facility], [address] [address] [id number] Aspartate Amino Transf (AST/SGOT) Ju 2019 8:35am 23 U/L 0-33 [facility], [address] [address] [id number] Alkaline Phosphatase August 09, 2020 7:35pm 122 U/L 45-129 [facility], [address] [place] [address] [id number] Alkaline Phosphatase August 03, 2020 2:35pm 125 U/L 45-129 [facility], [address] [place] [address] [id number] Alkaline Phosphatase July 01 9:40pm 139 U/L 45-129 [facility], [address] [place] [address] [id number] Alkaline Phosphatase May 18, 2020 6:17am 110 U/L 45-129 [facility], [address] [place] [address] [id number] Alkaline Phosphatase March 25 0 8:11am 122 U/L 45-129 [facility], [address] [place] [address] [id number] Alkaline Phosphatase March 11, 2020 12:14pm 129 U/L 45-129 [facility], [address] [place] [address] [id number] Alkaline Phosphatase March 02, 2020 11:00am 136 U/L 45-129 [facility], [address] [place] [address] [id number] Alkaline Phosphatase February 26, 2020 10:02a m 147 U/L 45-129 [facility], [address] [place] [address] [id number] Alkaline Phosphatase February 20, 2020 8:35a m 149 U/L 45-129 [facility], [address] [place] [address] [id number] Amylase Level August 09, 2020 7:35pm 39 U/L 30-118 [facility], [address] [place] [address] [id number] Amylase Level August 03, 2020 2:35pm 31 U/L 30-118 [facility], [address] [place] [address] [id number] Amylase Level May 17, 2020 7:20pm 39 U/L 30-118 [facility], [address] [place] [address] [id number] Amylase Level March 25, 2020 8:11am 35 U/L 30-118 [facility], [address] [place] [address] [id number] Lipase August 09, 2020 7:35pm 90 U/L 73-393 [facility], [address] [place] [address] [id number] Lipase August 03, 2020 2:35pm 68 U/L 73-393 [facility], [address] [place] [address] [id number] Lipase May 17, 2020 7:20pm 89 U/L 73-393 [facility], [address] [place] [address] [id number] Lipase March 25, 2020 8:11am 97 U/L 73-393 [facility], [address] [place] [address] [id number] Lipase March 11, 2020 12:14pm 128 U/L 73-393 [facility], [address] [place] [address] [id number] Calcium Level August 09, 2020 7:35pm 9.5 mg/dL 8.5-10.1 [facility], [address] [place] [address] [id number] Calcium Level August 03, 2020 2:35pm 9.1 mg/dL 8.5-10.1 [facility], [address] [place] [address] [id number] Calcium Level July 01, 2020 9:40pm 9.2 mg/dL 8.5-10.1 [facility], [address] [address] 14243 Calcium Level May 18, 2020 6:17am 8.5 mg/dL 8.5-10.1 Delta: 9.6 on 05/17/20-2019Repeated by: Roderick Cee 05/18/20 0824.Result Confirmation: 8.3 # mg/dL [facility], [address] [address] 51805 Calcium Level March 25, 2020 8:11am 8.9 mg/dL 8.5-10.1 [facility], [address] [address] 86928 Calcium Level March 11, 2020 12:14pm 8.6 mg/dL 8.5-10.1 [facility], [address] [place] [address] 37460 Calcium Level March 02, 2020 11:00am 9.0 mg/dL 8.5-10.1 [facility], [address] [place] [address] 26128 Calcium Level February 26, 2020 10:02am 9.0 mg/dL 8.5-10.1 [facility], [address] [place] [address] 53716 Calcium Level February 20, 2020 8:35am 9.4 mg/dL 8.5-10.1 [facility], [address] [place] [address] 05776 Total Bilirubin August 09, 2020 7:35pm 0.3 mg/dL 0.3-1.2 [facility], [address] [place] [address] 02752 Total Bilirubin August 03, 2020 2:35pm 0.4 mg/dL 0.3-1.2 [facility], [address] [address] 41095 Total Bilirubin July 01, 2020 9:40pm 0.3 mg/dL 0.3-1.2 [facility], [address] [place] [address] 17609 Total Bilirubin May 18, 2020 6:17a m 0.3 mg/dL 0.3-1.2 [facility], [address] [place] [address] 25262 Total Bilirubin March 25, 2020 8:11am 0.2 mg/dL 0.3-1.2 [facility], [address] [place] [address] 29923 Total Bilirubin March 11, 2020 12:14pm 0.2 mg/dL 0.3-1.2 [facility], [address] [place] [address] 33268 Total Bilirubin March 02, 2020 11:00am 0.4 mg/dL 0.3-1.2 [facility], [address] [place] [address] 80980 Total Bilirubin February 26, 2020 10:02am 0.3 mg/dL 0.3-1.2 [facility], [address] [place] [address] 78074 Total Bilirubin February 20, 2020 8:35am 0.3 mg/dL 0.3-1.2 [facility], [address] [place] [address] 57724 Albumin August 09, 2020 7:35pm 3.6 g/dL 3.2-4.8 [facility], [address] [place] [address] 71841 Albumin August 03, 2020 2:35pm 3.5 g/dL 3.2-4.8 [facility], [address] [place] [address] 35210 Albumin July 01, 2020 9:40pm 3.5 g/dL 3.2-4.8 [facility], [address] [place] [address] Albumin May 18, 2020 6:17am 3.0 g/dL 3.2-4.8 [facility], [address] [place] [address] 46510 Albumin March 25, 2020 8:11am 3.0 g/dL 3.2-4.8 [facility], [address] [place] [address] Albumin March 11, 2020 12:14pm 3.2 g/dL 3.2-4.8 [facility], [address] [place], [place] [id number] Albumin March 02, 2020 11:00am 3.1 g/dL 3.2-4.8 [facility], [address] [place], [place] [id number] Albumin February 26, 2020 10:02am 3.4 g/dL 3.2-4.8 [facility], [address] [place] [address] 44756 Albumin February 20, 2020 8:35am 3.5 g/dL 3.2-4.8 [facility], [address] [place] [address] 82488 Serum Total Protein August 09, 2 020 7:35pm 8.2 g/dL 5.7-8.2 [facility], [address] [place] [address] Serum Total Protein August 03, 2 020 2:35pm 8.1 g/dL 5.7-8.2 [facility], [address] [place] [address] 11098 Serum Total Protein July 01 9:40pm 8.0 g/dL 5.7-8.2 [facility], [address] [place] [address] Serum Total Protein May 18, 2020 6:17am 6.6 g/dL 5.7-8.2 [facility], [address] [place] [address] Serum Total Protein March 25, 2020 8:11a m 7.7 g/dL 5.7-8.2 [facility], [address] [place], [place] [id number] Serum Total Protein March 11, 2020 12:14p m 7.6 g/dL 5.7-8.2 [facility], [address] [place], [place] [id number] Serum Total Protein March 02, 2020 11:00a m 7.9 g/dL 5.7-8.2 [facility], [address] [place] [address] 14886 Serum Total Protein February 26, 2020 10:02am 7.6 g/dL 5.7-8.2 [facility], [address] [place] [address] 82953 Serum Total Protein February 20, 2020 8:35am 7.9 g/dL 5.7-8.2 [facility], [address] [place] [address] 69026 Lactic Acid Level July 01, 2020 9:40p m 1.0 mmol/L 0.5-2.2 [facility], [address] [place] [address] 91690 Human Chorionic Gonadotropin, Quant August 09, 2020 7:35pm 43176 mIU/mL 0-10 APPROXIMATE GESTATION AGE APRROX IMATE HCG RANGE 0-1 WEEK 0 - 50 1-2 WEEKS 40 - 300 2-3 WEEKS 100 - 1,000 3-4 WEEKS 500 - 6,000 1-2 MONTHS 5,000 - 200,000 2-3 MONTHS 10,000 - 100,000 2ND TRIMESTER 3,000 - 50,000 3RD TRIMESTER 1,000 - 50,000 [facility], [address] [place] [address] 57619 Human Chorionic Gonadotropin, Quant August 14, 2020 9:31am 45266 mIU/mL 0-10 APPROXIMATE GESTATION AGE APRROX IMATE HCG RANGE 0-1 WEEK 0 - 50 1-2 WEEKS 40 - 300 2-3 WEEKS 100 - 1,000 3-4 WEEKS 500 - 6,000 1-2 MONTHS 5,000 - 200,000 2-3 MONTHS 10,000 - 100,000 2ND TRIMESTER 3,000 - 50,000 3RD TRIMESTER 1,000 - 50,000 [facility], [address] [place] [address] 62331 Human Chorionic Gonadotropin, Quant August 03, 2020 2:35pm 00388 mIU/mL 0-10 APPROXIMATE GESTATION AGE APRROX IMATE HCG RANGE 0-1 WEEK 0 - 50 1-2 WEEKS 40 - 300 2-3 WEEKS 100 - 1,000 3-4 WEEKS 500 - 6,000 1-2 MONTHS 5,000 - 200,000 2-3 MONTHS 10,000 - 100,000 2ND TRIMESTER 3,000 - 50,000 3RD TRIMESTER 1,000 - 50,000 [facility], [address] [place] [address] Human Chorionic Gonadotropin, Quant July 01, 2020 10:10am Less than 1 mIU/mL 0-1 0 APPROXIMATE GESTATION AGE APRROX IMATE HCG RANGE 0-1 WEEK 0 - 50 1-2 WEEKS 40 - 300 2-3 WEEKS 100 - 1,000 3-4 WEEKS 500 - 6,000 1-2 MONTHS 5,000 - 200,000 2-3 MONTHS 10,000 - 100,000 2ND TRIMESTER 3,000 - 50,000 3RD TRIMESTER 1,000 - 50,000 [facility], [address] [place] [address] Thyroid Stimulating Hormone (TSH) Ju ly 2019 10:02am 1.84 uIU/mL 0.35-5.50 [facility], [address] [place] [address] Serum Test, Qualitative De cember 2019 2:35pm Positive NEGATIVE [facility], [address] [place] [address] Serum Test, Qualitative No vember 2019 9:40pm Negative NEGATIVE [facility], [address] [place] [address] Serum Test, Qualitative Se ptember 2019 7:20pm Negative NEGATIVE [facility], [address] [place] [address] Serum Test, Qualitative Au kem 2019 8:11am Negative NEGATIVE [facility], [address] [place] [address] Urine HCG, Qualitative March 11 11:00am Negative NEGATIVE [facility], [address] [place] [address] Urine HCG, Qualitative March 02 11:00am Negative NEGATIVE [facility], [address] [place] [address] Urine HCG, Qualitative February 19 8:32am Negative NEGATIVE [facility], [address] [place] [address] Coronavirus (COVID-19)(PCR) March 252019 2:30pm Not detected Not Detec dee This test was developed and its performa nce characteristicsdetermined by [employer]. This test has not beenFDA cleared or [...] in this assay.Performed at: RN - [facility] [address] [id number] Director: Deisy Hdez MD, Phone: [phone] [facility] , [address] [facility] [id number] Urine Random Creatinine February 27 7:19am 234.0 mg/dL THERE IS NO ESTABLISHED RANGE FOR RANDOM URINE CREATININE [facility], [address] [place] [address] Urine Microalbumin February 28, 2020 7:19am 13.7 mg/L 0.0-29.9 [facility], [address] [place] [address] Urine Microalbumin/Creatinine Ratio February 28, 2020 7:19am 5.8 ug/mg 0.0-30.0 [facility], [address] [place] [address] Hemoglobin A1c February 26, 2020 10:02am 5.3 [...] control. * High risk of developing terminal supervisor complications such asretinopathy, nephropathy, neuropathy, cardiopathy, etc. Some danger of hypoglycemic reaction in Type I diabetics.Some glucose intolerant individuals and "Sub Clinical"diabetics may demonstrate HGBA1C levels in this area. [facility], [address] [place] [address] Estimated Average Glucose (eAG) February 26, 2020 10:02am 105 mg/dl An A1C of 7% - the goal of diabetic therapy - is equivalentto an EAG of 154 mg/dl. [facility], [address] [place] [address] [id number] Microbiology Results Procedure Source Result Collection Date/Time Result Date/Time Result Comment Performing Site Urine Culture Urine,voided August 09, 2020 8:06pm August 11, 2020 7:16am [facility], [address] [place] [address] Urine Culture Urine,clean catch August 03, 2020 2:50pm August 04, 2020 11:45am [facility], [address] [place] [address] Urine Culture Urine,voided July 01, 2020 9:30pm June [id number] 7:24am [facility], [address] [place] [address] Urine Culture Urine,voided May 18, 2020 1:15am Septembe 2019 11:25am [facility], [address] [place] [address] Urine Culture Urine,clean catch March 25, 2020 9:05am March 26, 2020 1:36pm [facility], [address] [place] [address] Urine Culture Urine,clean catch March 11, 2020 12:00pm March 12, 020 1:24pm [facility], [address] [place] [address] Urine Culture Urine,voided March 05, 2020 3:29pm March 06, 20 9:18am [facility], [address] [place] [address] Urine Culture Urine,voided March 02, 2020 11:48am March 03, 2 020 8:26am [facility], [address] [place] [address] Streptococcus Rapid Screen Throat March 13, 2020 10:34am March 14, 2 020 8:58am [facility], [address] [place] [address] Streptococcus Rapid Screen Throat March 13, 2020 10:34am March 13, 2 020 11:04am [facility], [address] [place] [address] 64351 Blood Culture Venous blood No growth. July 01, 2020 9:40pm June 232019 9:46pm [facility], [address] [place] [address] SARS-CoV-2 (PCR) Interpretation Naso pharyngeal No Organisms Detected July 01, 2020 9:45pm July 01, 2020 10:29pm [facility], [address] [place] [address] Nasal BinaxNow Covid - 19 Ag Negative July 30, 2020 9:45am July 302019 11:56am [facility], [address] [place] [address] Gastrointestinal Tract Panel (PCR) Stool C. difficile toxin detected May 17, 2020 3:03pm May 17, 2020 5:25pm [facility], [address] [place] [address] Respiratory Panel (PCR) Nasopharyngeal No Organisms Detected May 18, 2020 1:40am May 18, 2020 2:49am [facility], [address] [place] [address] Diagnostic Imaging Reports Report Dictated Date/Time Dictated By Status Radiology Report February 28, 2020 9:48am Oliverio Chen MD completed [place] [address] [place] [address] [phone] NAME SEX PT STATUS ACCOUNT NUMBER ANNA MARIE BELTRAN REG REF [id number] ORDERING PHYSICIAN LOCATION MEDICAL RECORD NO. Jose Kramer DO [id number] ATTENDING PHYSICIAN DATE OF DATE OF EXAM/TIME [...] 02, 2020 1:53pm Warren Bourne MD completed [facility] [address] [place] [address] [phone] NAME SEX PT STATUS ACCOUNT NUMBER ANNA MARIE BELTRAN [facility] ER [id number] ORDERING PHYSICIAN LOCATION MEDICAL RECORD NO. Sameer Islas MD ER [id number] ATTENDING PHYSICIAN DATE OF DATE OF EXAM/TIME [...] 12, 2020 2:59pm Oliverio Chen MD completed [facility] [address] [place] [address] [phone] NAME SEX PT STATUS ACCOUNT NUMBER ANNA MARIE BELTRAN REG REF [id number] ORDERING PHYSICIAN LOCATION MEDICAL RECORD NO. Pola Meadows MD [id number] ATTENDING PHYSICIAN DATE OF DATE OF EXAM/TIME [...] 25, 2020 10:18am Oliverio Chen MD completed [facility] [address] [place] [address] [phone] NAME SEX PT STATUS ACCOUNT NUMBER ANNA MARIE BELTRAN [facility] ER [id number] ORDERING PHYSICIAN LOCATION MEDICAL RECORD NO. Hiren Perez MD ER [id number] ATTENDING PHYSICIAN DATE OF DATE OF EXAM/TIME [...] May 17 9:41pm Ulisses Sethi MD completed [place] [address] [place] [address] [phone] NAME SEX PT STATUS ACCOUNT NUMBER ANNA MARIE BELTRAN [facility] ER [id number] ORDERING PHYSICIAN LOCATION MEDICAL RECORD NO. Mikhail Sheriff MD ER [id number] ATTENDING PHYSICIAN DATE OF DATE OF EXAM/TIME [...] 2020 10:55p m Telly Robledo MD completed [facility] [address] [place] [address] [phone] NAME SEX PT STATUS ACCOUNT NUMBER ANNA MARIE BELTRAN [facility] ER [id number] ORDERING PHYSICIAN LOCATION MEDICAL RECORD NO. Mikhail Sheriff MD ER [id number] ATTENDING PHYSICIAN DATE OF DATE OF EXAM/TIME [...] Nicol Sebastian; Telly Robledo MD Techn: JANAE Ocampo Dt/Tm: Trans by: DT Prt Dt/Tm: [id number]: Total DLP = 0.00 mGy-cm Fluoroscopy Time (in secs): Radiology Report July 01, 2020 11:07p m Niels Wilkerson MD completed [facility] [address] [place] [address] [phone] NAME SEX PT STATUS ACCOUNT NUMBER ANNA MARIE BELTRAN [facility] ER [id number] ORDERING PHYSICIAN LOCATION MEDICAL RECORD NO. Mikhail Sheriff MD ER [id number] ATTENDING PHYSICIAN DATE OF DATE OF EXAM/TIME [...] CC: Nicol Sebastian; Niels Wilkerson MD Techn: JANAE Trans Dt/Tm: Trans by: DT Prt Dt/Tm: : Total DLP = 1469.00 mGy-cm : Total Radiation Dose = 22.0350 mSv Lifetime Dose: 56.7900 mS v Radiology Report August 03, 2020 7:33p m Gibran Villa MD completed [facility] [address] [place] [id number] [phone] NAME SEX PT STATUS ACCOUNT NUMBER ANNA MARIE BELTRAN [facility] ER [id number] ORDERING PHYSICIAN LOCATION MEDICAL RECORD NO. Daljit Alex MD ER [id number] ATTENDING PHYSICIAN DATE OF DATE OF EXAM/TIME [...] 2020 7:59p m Telly Robledo MD completed [place] [address] [place] [id number] [phone] NAME SEX PT STATUS ACCOUNT NUMBER ANNA MARIE BELTRAN [facility] ER [id number] ORDERING PHYSICIAN LOCATION MEDICAL RECORD NO. Daljit Alex MD ER [id number] ATTENDING PHYSICIAN DATE OF DATE OF EXAM/TIME [...] 03, 2020 7:34p m Gibran Villa MD [place] [address] [place] [address] [phone] NAME SEX PT STATUS ACCOUNT NUMBER ANNA MARIE BELTRAN [facility] ER [id number] ORDERING PHYSICIAN LOCATION MEDICAL RECORD NO. Daljit Alex MD ER [id number] ATTENDING PHYSICIAN DATE OF DATE OF EXAM/TIME Nicol Sebastian NP 1995 08/03/201858 TYPE / EXAM US OB Ultrasound <14 weeks REASON FOR EXAM RLQ PAIN; R/O ECTOPIC [address] [address] [phone] NAME SEX PT STATUS ACCOUNT NUMBER ANNA MARIE BELTRAN [facility] ER [id number] ORDERING PHYSICIAN LOCATION MEDICAL RECORD NO. Daljit Alex MD ER [id number] ATTENDING PHYSICIAN DATE OF DATE OF EXAM/TIME [...] 2020 9:02p m Telly Robledo MD completed [facility] [address] [place] [id number] [phone] NAME SEX PT STATUS ACCOUNT NUMBER ANNA MARIE BELTRAN [facility] ER [id number] ORDERING PHYSICIAN LOCATION MEDICAL RECORD NO. Mikhail Sheriff MD ER [id number] ATTENDING PHYSICIAN DATE OF DATE OF EXAM/TIME Nicol Sebastian NP 1995 08/09/202038 TYPE / EXAM US OB Ultrasound <14 weeks REASON FOR EXAM Gen abd pain. +HCG CANDIE BELTRANELYNN Keri [id number] 1995 ADDENDUM Clinical History/Indication for Exam: Gen [...] Ocampo Dt/Tm: Trans by: DT Prt Dt/Tm: [id number]: Total DLP = 0.00 mGy-cm 1117-9257: Total Radiation Dose = 0.0000 mSv Lifetime Dose: 56.7900 mSv Health Concerns Health Concerns may be documented in an alternate section. 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 April 05, 2020 8:29am Trice Aj NP Registered Referred -Laboratory May 17, 2020 1:48pm Trice longoria NP Discharged Inpatient -[facility] May 18, 2020 12:18am May 18, 2020 2:40pm Tad Menendez MD Registered Outpatient -[facility] May 20, 2020 2:25pm Amara Garcia RN Departed Physician/Provider Office Visit -[facility] May 23, 2020 7:51am May 23, 2020 8:35am Trice Aj NP Departed Physician/Provider Office [facility] May 30, 2020 9:25am May 30, 2020 11:56am Nicol Sebastian NP Departed Physician/Provider Office Visit -[facility] June 10, 2020 8:26am [...] 2020 12:20am null Departed Physician/Provider Office Visit -[facility] [...] Jarret jade MD Departed Physician/Provider Office Visit -[facility] August 14, 2020 9:41am August 14, 2020 11:45am Jarret Herbert MD Recent Diagnosis Onset Date [...] Response Neil e Recorded Functional Status Complete [place] May 18, 2020 1:30am Goals Goals may be documented in an alternate section. Immunizations No Immunization Information Available Mental Status Observation Response Neil e Recorded Impairments No impairments or barriers August 09, 2020 6:20pm Cognitive Status Normal Cognition May 18, 2020 1:30am Medical Equipment No Medical Equipment Information available Insurance Providers Guarantor ANNA MARIE BELTRAN Address [address] [place] [address] Contact Info. 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 Increase diet and exercise. Referral to [facility] for chronic inflammation. Elevate legs. Sertaline [...] inside the ear. Follow up with GI July 26, 2020 for upper GI. [place] [employer] rice, applesauce, bananas, and toast. Resolved. [...] exercise. Continue to follow up with GI Omeprazole 20 mg bid. Patient is somewhat [...] at this time, d/t recent move to [place]. Will continue current meds and will refer to psych. Increment Manager appt with behavioral health this week. [...] palpation without abnormal physical find ings. 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 [...] with PO vancomycin Trice dimas NP Email: [email or web address] Phone: [facility] [address] [facility] [phone] Call for an appointment to be seen in the next 48 hours Jose Kramer DO Email: [email or web address] Phone: [phone] [facility] [phone] Call for an appointment for follow-up for Wednesday or Wednesday Jose Kramer DO Email: [email or web address] Phone: [phone] [facility] [phone] Future Procedures Future procedure information is unavailable [...]
--- OUTSIDE RECORDS SUMMARY | 2020-10-18 09:53 | CCD | Continuity of Care Document ---
Author Author [facility] Organization [facility] Address [address] [place] [address] Phone Support Name Relationship Address Phone Jose Kramer PRS [address] [place] [address] Rachel Senn Bianka PRS [address] [place] [address] John Islas PRS [address] [place] [address] [place] [address] Pola Meadows [facility] [address] Pola Meadows PRS [address] [place] [address] Hiren Perez PRS [address] [place] [address] Nathalie Pace PRS [address] [place] [address] Verónica Sheriff PRS [address] [place] [address] Tad Menendez PRS [address] [place] [address] Amara Garcia PRS Unknown Unavailable Nicol Sebastian PRS [address] [place] [address] Darnell Herbert PRS [address] [place] [address] Kiersten Schulz PRS [address] [place] [address] [place] [address] Daljit Alex PRS [address] [place] [address] Niels Valdez PRS [address] [place] [address] Allergies, Adverse Reactions, Alerts Allergen Type Severity [...] Estradiol Discontinue d 1 TAB PO daily 84 June 11, 2020 3:31pm June 28, 2020 [...] Active Depression Active Diarrhea Active Snoring Active GERD (gastroesophageal reflux disease) Active Abdominal [...] 8:40pm active Urine Culture August 09, 2020 active US OB Transvaginal August 03 6:58pm completed [...] August 09 0 7:35pm 9.9 10e3/uL 4.45-10.71 [facility], [address] [place] [address] White Blood Count August 03 0 2:35pm 8.6 10e3/uL 4.45-10.71 [facility], [address] [place] [address] White Blood Count July 01, 2020 9:40p m 11.2 10e3/uL 4.45-10.71 [facility], [address] [place] [address] White Blood Count May 18 6:17am 9.3 10e3/uL 4.45-10.71 [facility], [address] [place] [address] White Blood Count March 25, 2020 8:11am 10.8 10e3/uL 4.45-10.71 [facility], [address] [place] [address] [id number] White Blood Count March 11, 2020 12:14pm 11.3 10e3/uL 4.45-10.71 [facility], [address] [place] [address] White Blood Count March 02, 2020 11:00am 10.3 10e3/uL 4.45-10.71 [facility], [address] [place] [address] White Blood Count February 26, 2020 10:02am 9.8 10e3/uL 4.45-10.71 [facility], [address] [place] [address] White Blood Count February 20, 2020 8:35am 8.8 10e3/uL 4.45-10.71 [facility], [address] [place] [address] [id number] Red Blood Count August 09, 2020 7:35pm 4.49 10e6/uL 4.20-5.40 [facility], [address] [place] [address] Red Blood Count August 03, 2020 2:35pm 4.47 10e6/uL 4.20-5.40 [facility], [address] [place] [address] Red Blood Count July 01, 2020 9:40pm 4.51 10e6/uL 4.20-5.40 [facility], [address] [place] [address] Red Blood Count May 18, 2020 6:17a m 4.10 10e6/uL 4.20-5.40 [facility], [address] [place] [address] [id number] Red Blood Count March 25, 2020 8:11am 4.25 10e6/uL 4.20-5.40 [facility], [address] [place] [address] Red Blood Count March 11, 2020 12:14pm 4.58 10e6/uL 4.20-5.40 [facility], [address] [place] [address] [id number] Red Blood Count March 02, 2020 11:00am 4.52 10e6/uL 4.20-5.40 [facility], [address] [place] [address] 92113 Red Blood Count February 26, 2020 10:02am 4.84 10e6/uL 4.20-5.40 [facility], [address] [place] [address] 80134 Red Blood Count February 20, 2020 8:35am 5.02 10e6/uL 4.20-5.40 [facility], [address] [place] [address] 06841 Hemoglobin August 09, 2020 7:35pm 11.4 g/dL 10.7-15.4 [facility], [address] [place] [address] Hemoglobin August 03, 2020 2:35pm 11.5 g/dL 10.7-15.4 [facility], [address] [place] [address] Hemoglobin July 01, 2020 9:40pm 11.8 g/dL 10.7-15.4 [facility], [address] [place] [address] Hemoglobin May 18, 2020 6:17am 10.9 g/dL 10.7-15.4 [facility], [address] [place] [address] Hemoglobin March 25, 2020 8:11am 11.5 g/dL 10.7-15.4 [facility], [address] [place] [address] Hemoglobin March 11, 2020 12:14pm 12.4 g/dL 10.7-15.4 [facility], [address] [place] [address] Hemoglobin March 02, 2020 11:00am 12.1 g/dL 10.7-15.4 [facility], [address] [place] [address] Hemoglobin February 26, 2020 10:02am 13.0 g/dL 10.7-15.4 [facility], [address] [place] [address] Hemoglobin February 20, 2020 8:35am 13.4 g/dL 10.7-15.4 [facility], [address] [place] [address] Hematocrit August 09, 2020 7:35pm 36.1 % 37-47 [facility], [address] [place] [address] Hematocrit August 03, 2020 2:35pm 36.1 % 37-47 [facility], [address] [place] [address] Hematocrit July 01, 2020 9:40pm 36.6 % 37-47 [facility], [address] [place] [address] Hematocrit May 18, 2020 6:17am 34.1 % 37-47 [facility], [address] [place] [address] Hematocrit March 25, 2020 8:11am 34.7 % 37-47 [facility], [address] [place] [address] Hematocrit March 11, 2020 12:14pm 37.2 % 37-47 [facility], [address] [place] [address] 84538 Hematocrit March 02, 2020 11:00am 36.9 % 37-47 [facility], [address] [place] [address] 54546 Hematocrit February 26, 2020 10:02am 39.4 % 3747 [facility], [address] [place] [address] 30276 Hematocrit February 20, 2020 8:35am 41.0 % 3747 [facility], [address] [place] [address] 47608 Mean Corpuscular Volume August 09t h2019 7:35pm 80.4 fl 80-[address] [place] [address] LABORATORY, [address] [place] [address] 45412 Mean Corpuscular Volume July h2019 2:35pm 80.8 fl 80-[address] [place] [address] LABORATORY, [address] [place] [address] 55303 Mean Corpuscular Volume June 9:40pm 81.2 fl 80-[address] [place] [address] LABORATORY, [address] [place] [address] 18611 Mean Corpuscular Volume May 182019 6:17am 83.2 fl 80-[address] [place] [address] LABORATORY, [address] [place] [address] 67506 Mean Corpuscular Volume March 25, 2020 8:11am 81.6 fl 80-96 [facility], [address] [place] [address] 12722 Mean Corpuscular Volume March 11, 020 12:14pm 81.2 fl 80-96 [facility], [address] [place] [address] 31525 Mean Corpuscular Volume March 02, 020 11:00am 81.6 fl 80-96 [facility], [address] [place] [address] 08830 Mean Corpuscular Volume February 25 10:02am 81.4 fl 80-96 [facility], [address] [place] [address] 86644 Mean Corpuscular Volume February 19, 020 8:35am 81.7 fl 80-[address] [place] [address] LABORATORY, [address] [place] [address] 66997 Mean Corpuscular Hemoglobin August 09, 2020 7:35pm 25.4 pg 27-31 [facility], [address] [place] [address] 35841 Mean Corpuscular Hemoglobin August 03, 2020 2:35pm 25.7 pg 27-31 [facility], [address] [place] [address] 58453 Mean Corpuscular Hemoglobin July 01, 2020 9:40pm 26.2 pg 27-31 [facility], [address] [place] [address] 53174 Mean Corpuscular Hemoglobin 2019 6:17am 26.6 pg 27-31 [facility], [address] [place] [address] 61303 Mean Corpuscular Hemoglobin March 252019 8:11am 27.1 pg 27-31 [facility], [address] [place] [address] 21319 Mean Corpuscular Hemoglobin February 20 h2019 12:14pm 27.1 pg 27-31 [facility], [address] [place] [address] 91709 Mean Corpuscular Hemoglobin February 11 h2019 11:00am 26.8 pg 27-31 [facility], [address] [place] [address] 36459 Mean Corpuscular Hemoglobin February 10:02am 26.9 pg 27-31 [facility], [address] [place] [address] 34111 Mean Corpuscular Hemoglobin January h2019 8:35am 26.7 pg 27-31 [facility], [address] [place] [address] 04134 Mean Corpuscular Hemoglobin Concent August 09, 2020 7:35pm 31.6 g/dl [facility], [address] [place] [address] 51285 Mean Corpuscular Hemoglobin Concent August 03, 2020 2:35pm 31.9 g/dl 37 [facility], [address] [place] [address] 28300 Mean Corpuscular Hemoglobin Concent July 01, 2020 9:40pm 32.2 g/dl 3337 [facility], [address] [place] [address] 01607 Mean Corpuscular Hemoglobin Concent May 18, 2020 6:17am 32.0 g/dl 33[facility], [address] [place] [address] 13514 Mean Corpuscular Hemoglobin Concent March 25, 2020 8:11am 33.1 g/dl 3337 [facility], [address] [place] [address] 60428 Mean Corpuscular Hemoglobin Concent March 11, 2020 12:14pm 33.3 g/dl [address] [facility], [address] [place] [address] Mean Corpuscular Hemoglobin Concent March 02, 2020 11:00am 32.8 g/dl [address] [facility], [address] [place] [address] Mean Corpuscular Hemoglobin Concent February 26, 2020 10:02am 33.0 g/dl [address] [facility], [address] [place] [address] 17014 Mean Corpuscular Hemoglobin Concent February 20, 2020 8:35am 32.7 g/dl [address] [facility], [address] [place] [address] Red Cell Distribution Width August 09, 2020 7:35pm 14 % 11-15 [facility], [address] [place] [address] Red Cell Distribution Width August 03, 2020 2:35pm 14 % 11-15 [facility], [address] [place] [address] 96888 Red Cell Distribution Width July 01, 2020 9:40pm 14 % 11-15 [facility], [address] [place] [address] 20906 Red Cell Distribution Width 2019 6:17am 14 % 11-15 [facility], [address] [place] [address] 64668 Red Cell Distribution Width March 252019 8:11am 15 % 11-15 [facility], [address] [place] [address] 79790 Red Cell Distribution Width February 12:14pm 15 % 11-15 [facility], [address] [place] [address] 13965 Red Cell Distribution Width February 11:00am 14 % 11-15 [facility], [address] [place] [address] 42119 Red Cell Distribution Width February 10:02am 14 % 11-15 [facility], [address] [place] [address] Red Cell Distribution Width January 8:35am 15 % 11-15 [facility], [address] [place] [address] 44345 Platelet Count August 09, 2020 7:35pm 423 10e3/ul 130-472 [facility], [address] [place] [address] Platelet Count August 03, 2020 2:35pm 372 10e3/ul 130-472 [facility], [address] [place] [address] Platelet Count July 01, 2020 9:40pm 392 10e3/ul 130-472 [facility], [address] [place] [address] Platelet Count May 18, 2020 6:17am 332 10e3/ul 130-472 [facility], [address] [place] [address] Platelet Count March 25, 2020 8:11am 395 10e3/ul 130-472 [facility], [address] [place] [address] 97518 Platelet Count March 11, 2020 12:14pm 460 10e3/ul 130-472 [facility], [address] [place] [address] Platelet Count March 02, 2020 11:00am 410 10e3/ul 130-472 [facility], [address] [place] [address] Platelet Count February 26, 2020 10:02am 436 10e3/ul 130-472 [facility], [address] [place] [address] Platelet Count February 20, 2020 8:35am 479 10e3/ul 130-472 [facility], [address] [place] [address] Mean Platelet Volume August 09, 2020 7:35pm 8.9 fl 9.1-13.1 [facility], [address] [place] [address] Mean Platelet Volume August 03, 2020 2:35pm 9.0 fl 9.1-13.1 [facility], [address] [place] [address] Mean Platelet Volume July 01 9:40pm 8.6 fl 9.1-13.1 [facility], [address] [place] [address] Mean Platelet Volume May 18, 2020 6:17am 8.6 fl 9.1-13.1 [facility], [address] [place] [address] Mean Platelet Volume March 25 0 8:11am 8.3 fl 9.1-13.1 [facility], [address] [place] [address] Mean Platelet Volume March 11, 2020 12:14pm 8.4 fl 9.1-13.1 [facility], [address] [place] [address] 86208 Mean Platelet Volume March 02, 2020 11:00am 8.6 fl 9.1-13.1 [facility], [address] [place] [address] 72751 Mean Platelet Volume February 26, 2020 10:02a m 8.7 fl 9.1-13.1 [facility], [address] [place] [address] 05533 Mean Platelet Volume February 20, 2020 8:35a m 8.7 fl 9.1-13.1 [facility], [address] [place] [address] 80110 Neutrophils (%) (Auto) July 7:35pm 71.3 % [address] [place] [address] LABORATORY, [address] [place] [address] 21332 Neutrophils (%) (Auto) July 2:35pm 68.8 % [address] [place] [address] LABORATORY, [address] [place] [address] 27337 Neutrophils (%) (Auto) July 01, 2020 9:40pm 66.3 % [address] [place] [address] LABORATORY, [address] [place] [address] 76931 Neutrophils (%) (Auto) April 6:17am 66.1 % [address] [place] [address] LABORATORY, [address] [place] [address] 50876 Neutrophils (%) (Auto) March 25 8:11am 58.4 % [address] [place] [address] LABORATORY, [address] [place] [address] 28154 Neutrophils (%) (Auto) March 11 12:14pm 72.2 % [address] [place] [address] LABORATORY, [address] [place] [address] 28632 Neutrophils (%) (Auto) March 02 11:00am 65.4 % [address] [place] [address] LABORATORY, [address] [place] [address] 05086 Neutrophils (%) (Auto) February 25 0 10:02am 62.6 % [address] [place] [address] LABORATORY, [address] [place] [address] 21211 Neutrophils (%) (Auto) February 19 8:35am 62.4 % [address] [place] [address] LABORATORY, [address] [place] [address] 40153 Absolute Neutrophil August 09 7:35pm 7.0 # 1.7-7.6 [facility], [address] [place] [address] 38988 Absolute Neutrophil August 03 020 2:35pm 5.9 # 1.7-7.6 [facility], [address] [place] [address] Absolute Neutrophil July 01 9:40pm 7.5 # 1.7-7.6 [facility], [address] [place] [address] 17497 Absolute Neutrophil May 18, 2020 6:17am 6.1 # 1.7-7.6 [facility], [address] [place] [address] 00561 Absolute Neutrophil March 25, 2020 8:11a m 6.3 # 1.7-7.6 [facility], [address] [place] [address] 46744 Absolute Neutrophil March 11, 2020 12:14p m 8.1 # 1.7-7.6 [facility], [address] [place] [address] 16084 Absolute Neutrophil March 02, 2020 11:00a m 6.7 # 1.7-7.6 [facility], [address] [place] [address] 13406 Absolute Neutrophil February 26, 2020 10:02am 6.1 # 1.7-7.6 [facility], [address] [place] [address] 00672 Absolute Neutrophil February 20, 2020 8:35am 5.5 # 1.7-7.6 [facility], [address] [place] [address] 78316 Lymphocytes (%) (Auto) July 7:35pm 19.4 % 14-46 [facility], [address] [place] [address] 15635 Lymphocytes (%) (Auto) July 2:35pm 20.2 % 14-46 [facility], [address] [place] [address] 99119 Lymphocytes (%) (Auto) July 01, 2020 9:40pm 21.4 % 14-46 [facility], [address] [place] [address] 90017 Lymphocytes (%) (Auto) April 6:17am 22.8 % 14-46 [facility], [address] [place] [address] 98045 Lymphocytes (%) (Auto) March 25 8:11am 30.4 % 14-46 [facility], [address] [place] [address] 95375 Lymphocytes (%) (Auto) March 11 12:14pm 19.0 % 14-46 [facility], [address] [place] [address] 59974 Lymphocytes (%) (Auto) March 02 11:00am 23.6 % 14-46 [facility], [address] [place] [address] 76611 Lymphocytes (%) (Auto) February 25 0 10:02am 25.4 % 14-46 [facility], [address] [place] [address] 05099 Lymphocytes (%) (Auto) February 19 8:35am 26.5 % 14-46 [facility], [address] [place] [address] 44685 Lymphocytes # (Auto) August 09, 2020 7:35pm 1.9 # 0.6-4.6 [facility], [address] [place] [address] 65761 Lymphocytes # (Auto) August 03, 2020 2:35pm 1.7 # 0.6-4.6 [facility], [address] [place] [address] 80416 Lymphocytes # (Auto) July 01 020 9:40pm 2.4 # 0.6-4.6 [facility], [address] [place] [address] 43832 Lymphocytes # (Auto) May 18, 2020 6:17am 2.1 # 0.6-4.6 [facility], [address] [place] [address] 20415 Lymphocytes # (Auto) March 25 0 8:11am 3.3 # 0.6-4.6 [facility], [address] [place] [address] 22946 Lymphocytes # (Auto) March 11, 2020 12:14pm 2.1 # 0.6-4.6 [facility], [address] [place] [address] 51249 Lymphocytes # (Auto) March 02, 2020 11:00am 2.4 # 0.6-4.6 [facility], [address] [place] [address] 42142 Lymphocytes # (Auto) February 26, 2020 10:02a m 2.5 # 0.6-4.6 [facility], [address] [place] [address] 10915 Lymphocytes # (Auto) February 20, 2020 8:35a m 2.3 # 0.6-4.6 [facility], [address] [place] [address] 35281 Monocytes (%) (Auto) August 09, 2020 7:35pm 7.0 % 412 [facility], [address] [place] [address] 33453 Monocytes (%) (Auto) August 03, 2020 2:35pm 8.3 % 4-12 [facility], [address] [place] [address] 20323 Monocytes (%) (Auto) July 01 9:40pm 8.9 % [address] [facility], [address] [place] [address] 94105 Monocytes (%) (Auto) May 18, 2020 6:17am 8.7 % 412 [facility], [address] [place] [address] 72585 Monocytes (%) (Auto) March 25 0 8:11am 7.7 % [address] [facility], [address] [place] [address] 34739 Monocytes (%) (Auto) March 11, 2020 12:14pm 5.5 % [address] [facility], [address] [place] [address] 08014 Monocytes (%) (Auto) March 02, 2020 11:00am 7.8 % [address] [facility], [address] [place] [address] 21002 Monocytes (%) (Auto) February 26, 2020 10:02a m 8.2 % 412 [facility], [address] [place] [address] 78212 Monocytes (%) (Auto) February 20, 2020 8:35a m 8.0 % [address] [facility], [address] [place] [address] 74102 Monocytes # August 09, 2020 7:35pm 0.7 # 0.2-1.2 [facility], [address] [place] [address] 26800 Monocytes # August 03, 2020 2:35pm 0.7 # 0.2-1.2 [facility], [address] [place] [address] 67856 Monocytes # July 01, 2020 9:40pm 1.0 # 0.2-1.2 [facility], [address] [place] [address] 99992 Monocytes # May 18, 2020 6:17am 0.8 # 0.2-1.2 [facility], [address] [place] [address] 41146 Monocytes # March 25, 2020 8:11am 0.8 # 0.2-1.2 [facility], [address] [place] [address] 90386 Monocytes # March 11, 2020 12:14pm 0.6 # 0.2-1.2 [facility], [address] [place] [address] 01321 Monocytes # March 02, 2020 11:00am 0.8 # 0.2-1.2 [facility], [address] [place] [address] 72924 Monocytes # February 26, 2020 10:02am 0.8 # 0.2-1.2 [facility], [address] [place] [address] 00925 Monocytes # February 20, 2020 8:35am 0.7 # 0.2-1.2 [facility], [address] [place] [address] 90531 Eosinophils (%) (Auto) July 7:35pm 1.8 % 0-7 [facility], [address] [place] [address] [id number] Eosinophils (%) (Auto) July 2:35pm 2.2 % 0-7 [facility], [address] [place] [address] [phone] Eosinophils (%) (Auto) July 01, 2020 9:40pm 2.7 % 0-7 [facility], [address] [place] [address] [phone] Eosinophils (%) (Auto) April 6:17am 1.9 % 0-7 [facility], [address] [place] [address] [phone] Eosinophils (%) (Auto) March 25 8:11am 2.7 % 0-7 [facility], [address] [place] [address] [id number] Eosinophils (%) (Auto) March 11 12:14pm 2.5 % 0-7 [facility], [address] [place] [address] [id number] Eosinophils (%) (Auto) March 02 11:00am 2.4 % 0-7 [facility], [address] [place] [address] [id number] Eosinophils (%) (Auto) February 25 0 10:02am 3.1 % 0-7 [facility], [address] [place] [address] [phone] Eosinophils (%) (Auto) February 19 8:35am 2.6 % 0-7 [facility], [address] [place] [address] [id number] Absolute Eosinophils (CBC) August 09, 2020 7:35pm 0.2 # 0.0-0.5 [facility], [address] [place] [address] Absolute Eosinophils (CBC) August 03, 2020 2:35pm 0.2 # 0.0-0.5 [facility], [address] [place] [address] [phone] Absolute Eosinophils (CBC) July 01, 2020 9:40pm 0.3 # 0.0-0.5 [facility], [address] [place] [address] Absolute Eosinophils (CBC) May 18, 2020 6:17am 0.2 # 0.0-0.5 [facility], [address] [place] [address] Absolute Eosinophils (CBC) March 8:11am 0.3 # 0.0-0.5 [facility], [address] [place] [address] Absolute Eosinophils (CBC) February 12:14pm 0.3 # 0.0-0.5 [facility], [address] [place] [address] Absolute Eosinophils (CBC) February 11:00am 0.3 # 0.0-0.5 [facility], [address] [place] [address] Absolute Eosinophils (CBC) February 26, 2020 10:02am 0.3 # 0.0-0.5 [facility], [address] [place] [address] Absolute Eosinophils (CBC) January 8:35am 0.2 # 0.0-0.5 [facility], [address] [place] [address] Basophils (%) (Auto) August 09, 2020 7:35pm 0.3 % 0.4-1.3 [facility], [address] [place] [address] [phone] Basophils (%) (Auto) August 03, 2020 2:35pm 0.3 % 0.4-1.3 [facility], [address] [place] [address] [id number] Basophils (%) (Auto) July 01 9:40pm 0.4 % 0.4-1.3 [facility], [address] [place] [address] [id number] Basophils (%) (Auto) May 18, 2020 6:17am 0.3 % 0.4-1.3 [facility], [address] [place] [address] [phone] Basophils (%) (Auto) March 25 0 8:11am 0.5 % 0.4-1.3 [facility], [address] [place] [address] [id number] Basophils (%) (Auto) March 11, 2020 12:14pm 0.4 % 0.4-1.3 [facility], [address] [place] [address] 60505 Basophils (%) (Auto) March 02, 2020 11:00am 0.5 % 0.4-1.3 [facility], [address] [place] [address] 46014 Basophils (%) (Auto) February 26, 2020 10:02a m 0.4 % 0.4-1.3 [facility], [address] [place] [address] 36446 Basophils (%) (Auto) February 20, 2020 8:35a m 0.3 % 0.4-1.3 [facility], [address] [place] [address] 79500 Absolute Basophils (CBC) August 092019 7:35pm 0.0 # 0.0-0.2 [facility], [address] [place] [address] Absolute Basophils (CBC) August 032019 2:35pm 0.0 # 0.0-0.2 [facility], [address] [place] [address] 10304 Absolute Basophils (CBC) June 9:40pm 0.0 # 0.0-0.2 [facility], [address] [place] [address] Absolute Basophils (CBC) April 242019 6:17am 0.0 # 0.0-0.2 [facility], [address] [place] [address] 40630 Absolute Basophils (CBC) March 25, 2020 8:11am 0.1 # 0.0-0.2 [facility], [address] [place] [address] 08374 Absolute Basophils (CBC) March 11, 2020 12:14pm 0.0 # 0.0-0.2 [facility], [address] [place] [address] 12555 Absolute Basophils (CBC) March 02, 2020 11:00am 0.1 # 0.0-0.2 [facility], [address] [place] [address] 88827 Absolute Basophils (CBC) February 25 10:02am 0.0 # 0.0-0.2 [facility], [address] [place] [address] 13309 Absolute Basophils (CBC) February 20, 2020 8:35am 0.0 # 0.0-0.2 [facility], [address] [place] [address] 30568 Immature Granulocyte % (Auto) Decemb er 2019 7:35pm 0.2 % 0-2 [facility], [address] [place] [address] 11011 Immature Granulocyte % (Auto) Dece er 2019 2:35pm 0.2 % 0-2 [facility], [address] [place] [address] 98316 Immature Granulocyte % (Auto) [facility] 2019 9:40pm 0.3 % 0-2 [facility], [address] [place] [address] 07265 Immature Granulocyte % (Auto) Sept2019 6:17am 0.2 % 0-2 [facility], [address] [place] [address] 12851 Immature Granulocyte % (Auto) March 25, 2020 8:11am 0.3 % 0-2 [facility], [address] [place] [address] 22813 Immature Granulocyte % (Auto) February 212019 12:14pm 0.4 % 0-2 [facility], [address] [place] [address] 10162 Immature Granulocyte % (Auto) February 202019 11:00am 0.3 % 0-2 [facility], [address] [place] [address] 33165 Immature Granulocyte % (Auto) February 252019 10:02am 0.3 % 0-2 [facility], [address] [place] [address] 58473 Immature Granulocyte % (Auto) January 232019 8:35am 0.2 % 0-2 [facility], [address] [place] [address] 26265 Absolute Immature Granulocyte (auto August 09, 2020 7:35pm 0.0 # 0-0.1 [facility], [address] [place] [address] 71648 Absolute Immature Granulocyte (auto August 03, 2020 2:35pm 0.0 # 0-0.1 [facility], [address] [place] [address] 44244 Absolute Immature Granulocyte (auto July 01, 2020 9:40pm 0.0 # 0-0.1 [facility], [address] [place], [place] [id number] Absolute Immature Granulocyte (auto May 18, 2020 6:17am 0.0 # 0-0.1 [facility], [address] [place] [address] 32638 Absolute Immature Granulocyte (auto March 25, 2020 8:11am 0.0 # 0-0.1 [facility], [address] [place], [place] [id number] Absolute Immature Granulocyte (auto March 11, 2020 12:14pm 0.0 # 0-0.1 [facility], [address] [place], [place] [id number] Absolute Immature Granulocyte (auto March 02, 2020 11:00am 0.0 # 0-0.1 [facility], [address] [place], [place] [id number] Absolute Immature Granulocyte (auto February 26, 2020 10:02am 0.0 # 0-0.1 [facility], [address] [place], [place] [id number] Absolute Immature Granulocyte (auto February 20, 2020 8:35am 0.0 # 0-0.1 [facility], [address] [place] [address] 72497 Add Manual Differential July h2019 7:35pm No [facility], [address] [place] [address] 04144 Add Manual Differential July 2:35pm No [facility], [address] [place] [address] 16505 Add Manual Differential June 9:40pm No [facility], [address] [place] [address] 77981 Add Manual Differential May 182019 6:17am No [facility], [address] [place] [address] 60668 Add Manual Differential March 25, 2020 8:11am No [facility], [address] [place] [address] 66115 Add Manual Differential March 11 12:14pm No [facility], [address] [place] [address] 30362 Add Manual Differential March 02 11:00am No [facility], [address] [place] [address] 63879 Add Manual Differential February 25 10:02am No [facility], [address] [place] [address] 99721 Add Manual Differential February 19 8:35am No [facility], [address] [place] [address] 08966 Differential Total Cells Counted Sep tem2019 7:20pm 100 [facility], [address] [place] [address] 07828 Neutrophils (Manual) May 17, 2020 7:20pm 77 % 41-77 [facility], [address] [place] [address] 74196 Band Neutrophils May 17 0 7:20pm 3 % 0-5 [facility], [address] [place] [address] 72124 Lymphocytes (Manual) May 17, 2020 7:20pm 17 % 14-46 [facility], [address] [place] [address] 55911 Monocytes (Manual) May 17 7:20pm 3 % 4-12 [facility], [address] [place] [address] 57804 Platelet Estimate May 17 7:20pm Appears normal NORMAL [facility], [address] [place] [address] 14387 RBC Morphology 2 May 17 0 7:20pm Appears normal NORMAL [facility], [address] [place] [address] 68234 Urine Color May 18, 2020 12:15am Yellow [facility], [address] [place] [address] 41636 Urine Color February 20, 2020 8:40am Yellow [facility], [address] [place] [address] 59285 Urine Color August 09, 2020 8:06pm Yellow [facility], [address] [place] [address] 14718 Urine Color August 03, 2020 2:50pm Yellow [facility], [address] [place] [address] 53262 Urine Color July 01, 2020 9:30pm Yellow [facility], [address] [place] [address] 72744 Urine Color March 25, 2020 8:05am Yellow [facility], [address] [place] [address] 74472 Urine Color March 11, 2020 11:00am Yellow [facility], [address] [place] [address] 18677 Urine Color March 05, 2020 2:29pm Yellow [facility], [address] [place] [address] 00353 Urine Color March 02, 2020 10:48am Yellow [facility], [address] [place] [address] 05209 Urine Appearance August 09, 2020 8:06p m Clear [facility], [address] [place] [address] 85763 Urine Appearance August 03, 2020 2:50p m Clear [facility], [address] [place] [address] 99102 Urine Appearance July 01, 2020 9:30pm Cloudy [facility], [address] [place] [address] 34890 Urine Appearance May 18 0 12:15am Clear [facility], [address] [place] [address] 80138 Urine Appearance March 25, 2020 8:05am Cloudy [facility], [address] [place] [address] 54176 Urine Appearance March 11, 2020 11:00am Cloudy [facility], [address] [place] [address] 56167 Urine Appearance March 05, 2020 2:29pm Cloudy [facility], [address] [place] [address] 27145 Urine Appearance March 02, 2020 10:48am Cloudy [facility], [address] [place] [address] 74211 Urine Appearance February 20, 2020 8:40am Turbid [facility], [address] [place] [address] 87728 Urine pH August 09, 2020 8:06pm 6.5 [facility], [address] [place] [address] 68787 Urine pH August 03, 2020 2:50pm 7.5 [facility], [address] [place] [address] 14261 Urine pH July 01, 2020 9:30pm 6.0 [facility], [address] [place] [address] 88620 Urine pH May 18, 2020 12:15am 6.0 [facility], [address] [place] [address] 11125 Urine pH March 25, 2020 8:05am 5.5 [facility], [address] [place] [address] 69576 Urine pH March 11, 2020 11:00am 6.5 [facility], [address] [place] [address] 43361 Urine pH March 05, 2020 2:29pm 6.0 [facility], [address] [place] [address] 54478 Urine pH March 02, 2020 10:48am 5.5 [facility], [address] [place] [address] 37487 Urine pH February 20, 2020 8:40am 5.5 [facility], [address] [place] [address] Urine Specific [place] July 8:06pm 1.022 [facility], [address] [place] [address] Urine Specific [place] July 2:50pm 1.020 [facility], [address] [place] [address] 28294 Urine Specific [place] July 01, 2020 9:30pm 1.026 [facility], [address] [place] [address] 92750 Urine Specific [place] April 12:15am >1.045 [facility], [address] [place] [address] Urine Specific [place] March 25 8:05am 1.025 [facility], [address] [place] [address] Urine Specific [place] March 11 11:00am 1.025 [facility], [address] [place] [address] Urine Specific [place] March 05 2:29pm 1.021 [facility], [address] [place] [address] Urine Specific [place] March 02 10:48am 1.025 [facility], [address] [place] [address] 32372 Urine Specific [place] February 19 8:40am 1.023 [facility], [address] [place] [address] Urine Leukocyte Esterase April 242019 12:15am Negative NEGATIVE [facility], [address] [place] [address] 41490 Urine Leukocyte Esterase February 20, 2020 8:40am Moderate NEGATIVE [facility], [address] [place] [address] 45154 Urine Leukocyte Esterase August 092019 8:06pm Small NEGATIVE A Culture has been added to this specimen per established criteria [facility], [address] [place] [address] 71882 Urine Leukocyte Esterase August 032019 2:50pm Small NEGATIVE A Culture has been added to this specimen per established criteria [facility], [address] [place] [address] 99909 Urine Leukocyte Esterase June 9:30pm Small NEGATIVE A Culture has been added to this specimen per established criteria [facility], [address] [place] [address] 21550 Urine Leukocyte Esterase March 25, 2020 8:05am Trace NEGATIVE A Culture has been added to this specimen per established criteria [facility], [address] [place] [address] 90327 Urine Leukocyte Esterase March 11, 2020 11:00am Trace NEGATIVE A Culture has been added to this specimen per established criteria [facility], [address] [place] [address] 01816 Urine Leukocyte Esterase March 05, 2020 2:29pm Trace NEGATIVE A Culture has been added to this specimen per established criteria [facility], [address] [place] [address] 70219 Urine Leukocyte Esterase March 02, 2020 10:48am Trace NEGATIVE A Culture has been added to this specimen per established criteria [facility], [address] [place] [address] 16589 Urine Nitrite May 18, 2020 12:15am Negative NEGATIVE [facility], [address] [place] [address] 69592 Urine Nitrite February 20, 2020 8:40am Negative NEGATIVE [facility], [address] [place] [address] 26469 Urine Nitrate August 09, 2020 8:06pm Negative NEGATIVE [facility], [address] [place] [address] 98198 Urine Nitrate August 03, 2020 2:50pm Negative NEGATIVE [facility], [address] [place] [address] 12632 Urine Nitrate July 01, 2020 9:30pm Negative NEGATIVE [facility], [address] [place] [address] 73932 Urine Nitrate March 25, 2020 8:05am Negative NEGATIVE [facility], [address] [place] [address] 19204 Urine Nitrate March 11, 2020 11:00am Negative NEGATIVE [facility], [address] [place] [address] 42808 Urine Nitrate March 05, 2020 2:29pm Negative NEGATIVE [facility], [address] [place] [address] 99046 Urine Nitrate March 02, 2020 10:48am Negative NEGATIVE [facility], [address] [place] [address] 30973 Urine Protein August 09, 2020 8:06pm Negative NEGATIVE [facility], [address] [place] [address] 24869 Urine Protein August 03, 2020 2:50pm Negative NEGATIVE [facility], [address] [place] [address] 25813 Urine Protein July 01, 2020 9:30pm Trace NEGATIVE [facility], [address] [place] [address] 11877 Urine Protein May 18, 2020 12:15am Negative NEGATIVE [facility], [address] [place] [address] 84724 Urine Protein March 25, 2020 8:05am Negative NEGATIVE [facility], [address] [place] [address] 41504 Urine Protein March 11, 2020 11:00am Trace NEGATIVE [facility], [address] [place] [address] 20409 Urine Protein March 05, 2020 2:29pm Trace NEGATIVE [facility], [address] [place] [address] 33211 Urine Protein March 02, 2020 10:48am Negative NEGATIVE [facility], [address] [place] [address] 77384 Urine Protein February 20, 2020 8:40am 30 mg/dl NEGATIVE [facility], [address] [place] [address] 22024 Urine Glucose August 09, 2020 8:06pm Negative NEGATIVE [facility], [address] [place] [address] 96887 Urine Glucose August 03, 2020 2:50pm Negative NEGATIVE [facility], [address] [place] [address] 89463 Urine Glucose July 01, 2020 9:30pm Negative NEGATIVE [facility], [address] [place] [address] 09798 Urine Glucose May 18, 2020 12:15am Negative NEGATIVE [facility], [address] [place] [address] 18394 Urine Glucose March 25, 2020 8:05am Negative NEGATIVE [facility], [address] [place] [address] 34490 Urine Glucose March 11, 2020 11:00am Negative NEGATIVE [facility], [address] [place] [address] 88120 Urine Glucose March 05, 2020 2:29pm Negative NEGATIVE [facility], [address] [place] [address] 03797 Urine Glucose March 02, 2020 10:48am Negative NEGATIVE [facility], [address] [place] [address] 56922 Urine Glucose February 20, 2020 8:40am Negative NEGATIVE [facility], [address] [place] [address] 41986 Urine Ketones August 09, 2020 8:06pm Negative NEGATIVE [facility], [address] [place] [address] 93315 Urine Ketones August 03, 2020 2:50pm Negative NEGATIVE [facility], [address] [place] [address] 09265 Urine Ketones July 01, 2020 9:30pm Trace NEGATIVE [facility], [address] [place] [address] 76851 Urine Ketones May 18, 2020 12:15am Negative NEGATIVE [facility], [address] [place] [address] 16472 Urine Ketones March 25, 2020 8:05am Trace NEGATIVE [facility], [address] [place] [address] 04853 Urine Ketones March 11, 2020 11:00am Trace NEGATIVE [facility], [address] [place] [address] 90013 Urine Ketones March 05, 2020 2:29pm Negative NEGATIVE [facility], [address] [place] [address] 29847 Urine Ketones March 02, 2020 10:48am Negative NEGATIVE [facility], [address] [place] [address] 68832 Urine Ketones February 20, 2020 8:40am Trace NEGATIVE [facility], [address] [place] [address] 49121 Urine Urobilinogen August 09 8:06pm 1 eu/dl [facility], [address] [place] [address] 55399 Urine Urobilinogen August 03 2:50pm 1 eu/dl [facility], [address] [place] [address] 17664 Urine Urobilinogen July 01 9:30pm 1 eu/dl [facility], [address] [place] [address] Urine Urobilinogen May 18 12:15am 0.2 eu/dl [facility], [address] [place] [address] 86884 Urine Urobilinogen March 25, 2020 8:05am 1 eu/dl [facility], [address] [place] [address] 35053 Urine Urobilinogen March 11, 2020 11:00am 1 eu/dl [facility], [address] [place] [address] Urine Urobilinogen March 05, 2020 2:29pm 0.2 eu/dl [facility], [address] [place] [address] 41094 Urine Urobilinogen March 02, 2020 10:48am 1 eu/dl [facility], [address] [place] [address] Urine Urobilinogen February 20, 2020 8:40am 1 eu/dl [facility], [address] [place] [address] 02410 Urine Bilirubin August 09, 2020 8:06pm Negative NEGATIVE [facility], [address] [place] [address] 52398 Urine Bilirubin August 03, 2020 2:50pm Negative NEGATIVE [facility], [address] [place] [address] 50555 Urine Bilirubin July 01, 2020 9:30pm Negative NEGATIVE [facility], [address] [place] [address] 46302 Urine Bilirubin May 18, 2020 12:15am Negative NEGATIVE [facility], [address] [place] [address] 20427 Urine Bilirubin March 25, 2020 8:05am Negative NEGATIVE [facility], [address] [place] [address] 38859 Urine Bilirubin March 11, 2020 11:00am Negative NEGATIVE [facility], [address] [place] [address] 62375 Urine Bilirubin March 05, 2020 2:29pm Negative NEGATIVE [facility], [address] [place] [address] Urine Bilirubin March 02, 2020 10:48am Negative NEGATIVE [facility], [address] [place] [address] 92397 Urine Bilirubin February 20, 2020 8:40am Negative NEGATIVE [facility], [address] [place] [address] 03943 Urine Blood May 18, 2020 12:15am Negative NEGATIVE [facility], [address] [place] [address] 62922 Urine Blood February 20, 2020 8:40am Large NEGATIVE [facility], [address] [place] [address] Urine Blood August 09, 2020 8:06pm Moderate NEGATIVE A Culture has been added to this specimen per established criteria [facility], [address] [place] [address] 86815 Urine Blood August 03, 2020 2:50pm Small NEGATIVE [facility], [address] [place] [address] Urine Blood July 01, 2020 9:30pm Moderate NEGATIVE A Culture has been added to this specimen per established criteria [facility], [address] [place] [address] 62620 Urine Blood March 25, 2020 8:05am Negative NEGATIVE [facility], [address] [place] [address] 95549 Urine Blood March 11, 2020 11:00am Negative NEGATIVE [facility], [address] [place] [address] 60214 Urine Blood March 05, 2020 2:29pm Large NEGATIVE A Culture has been added to this specimen per established criteria [facility], [address] [place] [address] 45768 Urine Blood March 02, 2020 10:48am Trace NEGATIVE [facility], [address] [place] [address] Microscopic Urinalysis Comment Septe mber 2019 12:15am No [facility], [address] [place] [address] Microscopic Urinalysis Comment February 20, 2020 8:40am Microscopic added [facility], [address] [place] [address] Add Urine Microanalysis July 8:06pm Microscopic added [facility], [address] [place] [address] Add Urine Microanalysis July 2:50pm Microscopic added [facility], [address] [place] [address] Add Urine Microanalysis June 9:30pm Microscopic added [facility], [address] [place] [address] Add Urine Microanalysis March 25, 2020 8:05am Microscopic added [facility], [address] [place] [address] Add Urine Microanalysis March 11 11:00am Microscopic added [facility], [address] [place] [address] Add Urine Microanalysis March 05, 2:29pm Microscopic added [facility], [address] [place] [address] Add Urine Microanalysis March 02, 10:48am Microscopic added [facility], [address] [place] [address] Urine RBC August 09, 2020 8:06pm 1-2 /hpf [facility], [address] [place] [address] Urine RBC August 03, 2020 2:50pm 6-10 /hpf [facility], [address] [place] [address] Urine RBC July 01, 2020 9:30pm Occasional /hpf [facility], [address] [place] [address] Urine RBC March 05, 2020 2:29pm 3-5 /hpf [facility], [address] [place] [address] Urine RBC March 02, 2020 10:48am Occasional /hpf [facility], [address] [place] [address] Urine WBC February 20, 2020 8:40am 20-30 /hpf [facility], [address] [place] [address] Urine WBC August 09, 2020 8:06pm 1-2 /hpf [facility], [address] [place] [address] Urine WBC August 03, 2020 2:50pm 20-30 /hpf [facility], [address] [place] [address] Urine WBC July 01, 2020 9:30pm Occasional /hpf [facility], [address] [place] [address] Urine WBC March 25, 2020 8:05am 3-5 /hpf [facility], [address] [place] [address] Urine WBC March 11, 2020 11:00am 3-5 /hpf [facility], [address] [place] [address] Urine WBC March 05, 2020 2:29pm Occasional /hpf [facility], [address] [place] [address] Urine WBC March 02, 2020 10:48am 3-5 /hpf [facility], [address] [place] [address] Urine Squamous Epithelial Cells Dece 2019 8:06pm Many /hpf [facility], [address] [place] [address] Urine Squamous Epithelial Cells Dece mb2019 2:50pm Moderate /hpf [facility], [address] [place] [address] Urine Squamous Epithelial Cells Nove mber 2019 9:30pm Moderate /hpf [facility], [address] [place] [address] Urine Squamous Epithelial Cells Augu 2019 8:05am Many /hpf [facility], [address] [place] [address] Urine Squamous Epithelial Cells March 11, 2020 11:00am Many /hpf [facility], [address] [place] [address] Urine Squamous Epithelial Cells March 05, 2020 2:29pm Many /hpf [facility], [address] [place] [address] Urine Squamous Epithelial Cells March 02, 2020 10:48am Many /hpf [facility], [address] [place] [address] Urine Squamous Epithelial Cells February 20, 2020 8:40am Many /hpf [facility], [address] [place] [address] Urine Bacteria February 20, 2020 8:40am Moderate amount NEGATIVE [facility], [address] [place] [address] Urine Bacteria August 09, 2020 8:06pm Small amount NEGATIVE [facility], [address] [place] [address] Urine Bacteria August 03, 2020 2:50pm Small amount NEGATIVE [facility], [address] [place] [address] Urine Bacteria July 01, 2020 9:30pm Moderate amount NEGATIVE A Culture has been added to this specime n per established criteria [facility], [address] [place] [id number] Urine Bacteria March 25, 2020 8:05am Small amount NEGATIVE [facility] [facility], [address] [place] [address] Urine Bacteria March 11, 2020 11:00am Small amount NEGATIVE [facility], [address] [place] [address] Urine Bacteria March 05, 2020 2:29pm Small amount NEGATIVE [facility], [address] [place] [address] Urine Bacteria March 02, 2020 10:48am Small amount NEGATIVE [facility], [address] [place] [address] 12017 Urine Mucus March 25, 2020 8:05am Small amount [facility], [address] [place] [address] 53122 Urine Sperm February 20, 2020 8:40am Few [facility], [address] [place] [address] 61284 Blood Urea Nitrogen August 09, 020 7:35pm 8 mg/dL 05-15 [facility], [address] [place] [address] Blood Urea Nitrogen August 03 020 2:35pm 5 mg/dL 05-15 [facility], [address] [place] [address] Blood Urea Nitrogen July 01 9:40pm 6 mg/dL 05-15 [facility], [address] [place] [address] Blood Urea Nitrogen May 18, 2020 6:17am 7 mg/dL 05-15 [facility], [address] [place] [address] Blood Urea Nitrogen March 25, 2020 8:11a m 7 mg/dL 05-15 [facility], [address] [place] [address] Blood Urea Nitrogen March 11, 2020 12:14p m 6 mg/dL 05-15 [facility], [address] [place] [address] Blood Urea Nitrogen March 02, 2020 11:00a m 8 mg/dL 05-15 [facility], [address] [place] [address] Blood Urea Nitrogen February 26, 2020 10:02am 7 mg/dL 05-15 [facility], [address] [place] [address] Blood Urea Nitrogen February 20, 2020 8:35am 6 mg/dL 05-15 [facility], [address] [place] [address] Sodium Level August 09, 2020 7:35pm 141 mmol/L 132-146 [facility], [address] [place] [address] 71683 Sodium Level August 03, 2020 2:35pm 138 mmol/L 132-146 [facility], [address] [place] [address] 19190 Sodium Level July 01, 2020 9:40pm 141 mmol/L 132-146 [facility], [address] [place] [address] 16378 Sodium Level May 18, 2020 6:17am 143 mmol/L 132-146 [facility], [address] [place] [address] 58621 Sodium Level March 25, 2020 8:11am 137 mmol/L 132-146 [facility], [address] [place] [address] 81369 Sodium Level March 11, 2020 12:14pm 140 mmol/L 132-146 [facility], [address] [place] [address] 92845 Sodium Level March 02, 2020 11:00am 139 mmol/L 132-146 [facility], [address] [place] [address] 26961 Sodium Level February 26, 2020 10:02am 138 mmol/L 132-146 [facility], [address] [place] [address] 98332 Sodium Level February 20, 2020 8:35am 138 mmol/L 132-146 [facility], [address] [place] [address] 14633 Potassium Level August 09, 2020 7:35pm 3.9 mmol/L 3.5-5.5 [facility], [address] [place] [address] 71038 Potassium Level August 03, 2020 2:35pm 4.6 mmol/L 3.5-5.5 [facility], [address] [place] [address] 11642 Potassium Level July 01, 2020 9:40pm 3.7 mmol/L 3.5-5.5 [facility], [address] [place] [address] 96812 Potassium Level May 18, 2020 6:17a m 3.8 mmol/L 3.5-5.5 [facility], [address] [place] [address] 97861 Potassium Level March 25, 2020 8:11am 3.7 mmol/L 3.5-5.5 [facility], [address] [place] [address] 34543 Potassium Level March 11, 2020 12:14pm 4.3 mmol/L 3.5-5.5 [facility], [address] [place] [address] 13783 Potassium Level March 02, 2020 11:00am 4.1 mmol/L 3.5-5.5 [facility], [address] [place] [address] 54616 Potassium Level February 26, 2020 10:02am 4.1 mmol/L 3.5-5.5 [facility], [address] [place] [address] 46393 Potassium Level February 20, 2020 8:35am 4.1 mmol/L 3.5-5.5 [facility], [address] [place] [address] 58834 Chloride Level August 09, 2020 7:35pm 111 mmol/l 99-109 [facility], [address] [place] [address] 28259 Chloride Level August 03, 2020 2:35pm 110 mmol/l 99-109 [facility], [address] [place] [address] 43994 Chloride Level July 01, 2020 9:40pm 110 mmol/l 99-109 [facility], [address] [place] [address] 79329 Chloride Level May 18, 2020 6:17am 113 mmol/l 99-109 [facility], [address] [place] [address] 88431 Chloride Level March 25, 2020 8:11am 111 mmol/l 99-109 [facility], [address] [place] [address] 15182 Chloride Level March 11, 2020 12:14pm 111 mmol/l 99-109 [facility], [address] [place] [address] 54614 Chloride Level March 02, 2020 11:00am 111 mmol/l 99-109 [facility], [address] [place] [address] 26011 Chloride Level February 26, 2020 10:02am 107 mmol/l 99-109 [facility], [address] [place] [address] 95681 Chloride Level February 20, 2020 8:35am 108 mmol/l 99-109 [facility], [address] [place] [address] 48012 Carbon Dioxide Level August 09, 2020 7:35pm 24 mmol/l -31 [facility], [address] [place] [address] 67000 Carbon Dioxide Level August 03, 2020 2:35pm 21 mmol/l - [facility], [address] [place] [address] 39934 Carbon Dioxide Level July 01 9:40pm 22 mmol/l 20-31 [facility], [address] [place] [address] 85391 Carbon Dioxide Level May 18, 2020 6:17am 25 mmol/l 20-31 [facility], [address] [place] [address] 19685 Carbon Dioxide Level March 25 0 8:11am 21 mmol/l 20-31 [facility], [address] [place] [address] 89183 Carbon Dioxide Level March 11, 2020 12:14pm 20 mmol/l 20-31 [facility], [address] [place] [address] 06415 Carbon Dioxide Level March 02, 2020 11:00am 20 mmol/l 20-31 [facility], [address] [place] [address] 80243 Carbon Dioxide Level February 26, 2020 10:02a m 22 mmol/l 20-31 [facility], [address] [place] [address] 97096 Carbon Dioxide Level February 20, 2020 8:35a m 21 mmol/l 20-31 [facility], [address] [place] [address] 46571 Anion Gap August 09, 2020 7:35pm 10 mmol/l 8-16 [facility], [address] [place] [address] 98819 Anion Gap August 03, 2020 2:35pm 12 mmol/l 8-16 [facility], [address] [place] [address] 35886 Anion Gap July 01, 2020 9:40pm 13 mmol/l 8-16 [facility], [address] [place] [address] 79677 Anion Gap May 18, 2020 6:17am 9 mmol/l 8-16 [facility], [address] [place] [address] 16017 Anion Gap March 25, 2020 8:11am 9 mmol/l 8-16 [facility], [address] [place] [address] 92053 Anion Gap March 11, 2020 12:14pm 13 mmol/l 8-16 [facility], [address] [place] [address] 40668 Anion Gap March 02, 2020 11:00am 12 mmol/l 8-16 [facility], [address] [place] [address] 49367 Anion Gap February 26, 2020 10:02am 13 mmol/l 8-16 [facility], [address] [place] [address] 39792 Anion Gap February 20, 2020 8:35am 13 mmol/l 8-16 [facility], [address] [place] [address] 19226 Glucose Level August 09, 2020 7:35pm 89 mg/dL 74-106 [facility], [address] [place] [address] 28762 Glucose Level August 03, 2020 2:35pm 87 mg/dL 74-106 [facility], [address] [place] [address] 76963 Glucose Level July 01, 2020 9:40pm 100 mg/dL 74-106 [facility], [address] [place] [address] 61652 Glucose Level May 18, 2020 6:17am 93 mg/dL 74-106 [facility], [address] [place] [address] 79481 Glucose Level March 25, 2020 8:11am 93 mg/dL 74-106 [facility], [address] [place] [address] 01071 Glucose Level March 11, 2020 12:14pm 88 mg/dL 74-106 [facility], [address] [place] [address] 58137 Glucose Level March 02, 2020 11:00am 91 mg/dL 74-106 [facility], [address] [place] [address] 07815 Glucose Level February 26, 2020 10:02am 92 mg/dL 74-106 [facility], [address] [place] [address] 21608 Glucose Level February 20, 2020 8:35am 98 mg/dL 74-106 [facility], [address] [place] [address] 72537 Creatinine August 09, 2020 7:35pm 1.3 mg/dL 0.5-1.1 [facility], [address] [place] [address] 37223 Creatinine August 03, 2020 2:35pm 0.8 mg/dL 0.5-1.1 [facility], [address] [place] [address] 94709 Creatinine July 01, 2020 9:40pm 0.9 mg/dL 0.5-1.1 [facility], [address] [place] [address] 39932 Creatinine May 18, 2020 6:17am 0.7 mg/dL 0.5-1.1 [facility], [address] [place] [address] 61137 Creatinine March 25, 2020 8:11am 0.9 mg/dL 0.5-1.1 [facility], [address] [place] [address] 31320 Creatinine March 11, 2020 12:14pm 1.2 mg/dL 0.5-1.1 [facility], [address] [place] [address] Creatinine March 02, 2020 11:00am 1.0 mg/dL 0.5-1.1 [facility], [address] [place] [address] Creatinine February 26, 2020 10:02am 1.0 mg/dL 0.5-1.1 [facility], [address] [place] [address] Creatinine February 20, 2020 8:35am 1.1 mg/dL 0.5-1.1 [facility], [address] [place] [address] 64233 Glomerular Filtration Rate Calc Dece 2019 7:35pm 50 ml/min ABOVE 60 [facility], [address] [place] [address] 52684 Glomerular Filtration Rate Calc Dece 2019 2:35pm Greater than 60 ml/min ABOVE 60 [facility], [address] [place] [address] 15537 Glomerular Filtration Rate Calc Nove 2019 9:40pm Greater than 60 ml/min ABOVE 60 [facility], [address] [place] [address] 92368 Glomerular Filtration Rate Calc Sept emb2019 6:17am Greater than 60 ml/min ABOVE 60 [facility], [address] [place] [address] 99367 Glomerular Filtration Rate Calc Augu 2019 8:11am Greater than 60 ml/min ABOVE 60 [facility], [address] [place] [address] 25789 Glomerular Filtration Rate Calc March 11, 2020 12:14pm 55 ml/min ABOVE 60 [facility], [address] [place] [address] 27031 Glomerular Filtration Rate Calc March 02, 2020 11:00am Greater than 60 ml/min ABOVE 60 [facility], [address] [place] [address] 03819 Glomerular Filtration Rate Calc February 26, 2020 10:02am Greater than 60 ml/min ABOVE 60 [facility], [address] [place] [address] 11272 Glomerular Filtration Rate Calc February 20, 2020 8:35am Greater than 60 ml/min ABOVE 60 [facility], [address] [place] [address] 14482 Alanine Aminotransferase (ALT/SGPT) August 09, 2020 7:35pm 30 U/L 10-49 [facility], [address] [place] [address] 91207 Alanine Aminotransferase (ALT/SGPT) August 03, 2020 2:35pm 42 U/L 10-49 [facility], [address] [place] [address] 21017 Alanine Aminotransferase (ALT/SGPT) July 01, 2020 9:40pm 43 U/L 10-49 [facility], [address] [place] [address] Alanine Aminotransferase (ALT/SGPT) May 18, 2020 6:17am 52 U/L 10-49 [facility], [address] [place] [address] 58417 Alanine Aminotransferase (ALT/SGPT) March 25, 2020 8:11am 27 U/L 10-49 [facility], [address] [place] [address] 10632 Alanine Aminotransferase (ALT/SGPT) March 11, 2020 12:14pm 29 U/L 10-49 [facility], [address] [place] [address] 61953 Alanine Aminotransferase (ALT/SGPT) March 02, 2020 11:00am 29 U/L 10-49 [facility], [address] [place] [address] 67013 Alanine Aminotransferase (ALT/SGPT) February 26, 2020 10:02am 33 U/L 10-49 [facility], [address] [place] [address] 69334 Alanine Aminotransferase (ALT/SGPT) February 20, 2020 8:35am 42 U/L 10-49 [facility], [address] [place] [address] 49244 Aspartate Amino Transf (AST/SGOT) De cember 2019 7:35pm 13 U/L 0-33 [facility], [address] [place] [address] 76338 Aspartate Amino Transf (AST/SGOT) De cember 2019 2:35pm 35 U/L 0-33 [facility], [address] [place] [address] 78940 Aspartate Amino Transf (AST/SGOT) No vember 2019 9:40pm 21 U/L 0-33 [facility], [address] [place] [address] 44978 Aspartate Amino Transf (AST/SGOT) Se ptember 2019 6:17am 27 U/L 0-33 [facility], [address] [place] [address] 98741 Aspartate Amino Transf (AST/SGOT) Au kem 2019 8:11am 15 U/L 0-33 [facility], [address] [place] [address] 80512 Aspartate Amino Transf (AST/SGOT) Ju ly 2019 12:14pm 17 U/L 0-33 [facility], [address] [place] [address] 23888 Aspartate Amino Transf (AST/SGOT) Ju ly 2019 11:00am 14 U/L 0-33 [facility], [address] [place] [address] 66613 Aspartate Amino Transf (AST/SGOT) Ju ly 2019 10:02am 17 U/L 0-33 [facility], [address] [place] [address] 77709 Aspartate Amino Transf (AST/SGOT) Ju ne 2019 8:35am 23 U/L 0-33 [facility], [address] [place] [address] 30187 Alkaline Phosphatase August 09, 2020 7:35pm 122 U/L 45-129 [facility], [address] [place] [address] 94866 Alkaline Phosphatase August 03, 2020 2:35pm 125 U/L 45-129 [facility], [address] [place] [address] 67474 Alkaline Phosphatase July 01 020 9:40pm 139 U/L 45-129 [facility], [address] [place] [address] 01154 Alkaline Phosphatase May 18, 2020 6:17am 110 U/L 45-129 [facility], [address] [place] [address] 22416 Alkaline Phosphatase March 25 8:11am 122 U/L 45-129 [facility], [address] [place] [address] 24847 Alkaline Phosphatase March 11, 2020 12:14pm 129 U/L 45-129 [facility], [address] [place] [address] 63936 Alkaline Phosphatase March 02, 2020 11:00am 136 U/L 45-129 [facility], [address] [place] [address] 09951 Alkaline Phosphatase February 26, 2020 10:02a m 147 U/L 45-129 [facility], [address] [place] [address] 24550 Alkaline Phosphatase February 20, 2020 8:35a m 149 U/L 45-129 [facility], [address] [place] [address] 94593 Amylase Level August 09, 2020 7:35pm 39 U/L 30-118 [facility], [address] [place] [address] 57475 Amylase Level August 03, 2020 2:35pm 31 U/L 30-118 [facility], [address] [place] [address] 90462 Amylase Level May 17, 2020 7:20pm 39 U/L 30-118 [facility], [address] [place] [address] 00235 Amylase Level March 25, 2020 8:11am 35 U/L 30-118 [facility], [address] [place] [address] 83775 Lipase August 09, 2020 7:35pm 90 U/L 73-393 [facility], [address] [place] [address] 93104 Lipase August 03, 2020 2:35pm 68 U/L 73-393 [facility], [address] [place] [address] 51268 Lipase May 17, 2020 7:20pm 89 U/L 73-393 [facility], [address] [place] [address] 01754 Lipase March 25, 2020 8:11am 97 U/L 73-393 [facility], [address] [place] [address] 91754 Lipase March 11, 2020 12:14pm 128 U/L 73-393 [facility], [address] [place] [address] 82957 Calcium Level August 09, 2020 7:35pm 9.5 mg/dL 8.5-10.1 [facility], [address] [place] [address] 57679 Calcium Level August 03, 2020 2:35pm 9.1 mg/dL 8.5-10.1 [facility], [address] [place] [address] 24897 Calcium Level July 01, 2020 9:40pm 9.2 mg/dL 8.5-10.1 [facility], [address] [place] [address] 75935 Calcium Level May 18, 2020 6:17am 8.5 mg/dL 8.5-10.1 Delta: 9.6 on 05/17/20-2019Repeated by: Roderick Cee 05/18/20 0824.Result Confirmation: 8.3 # mg/dL [facility], [address] [place] [address] 03786 Calcium Level March 25, 2020 8:11am 8.9 mg/dL 8.5-10.1 [facility], [address] [place] [address] 74505 Calcium Level March 11, 2020 12:14pm 8.6 mg/dL 8.5-10.1 [facility], [address] [place] [address] Calcium Level March 02, 2020 11:00am 9.0 mg/dL 8.5-10.1 [facility], [address] [place] [address] 04824 Calcium Level February 26, 2020 10:02am 9.0 mg/dL 8.5-10.1 [facility], [address] [place] [address] 24722 Calcium Level February 20, 2020 8:35am 9.4 mg/dL 8.5-10.1 [facility], [address] [place] [address] 77241 Total Bilirubin August 09, 2020 7:35pm 0.3 mg/dL 0.3-1.2 [facility], [address] [place] [address] 06223 Total Bilirubin August 03, 2020 2:35pm 0.4 mg/dL 0.3-1.2 [facility], [address] [place] [address] 81359 Total Bilirubin July 01, 2020 9:40pm 0.3 mg/dL 0.3-1.2 [facility], [address] [place] [address] 38149 Total Bilirubin May 18, 2020 6:17a m 0.3 mg/dL 0.3-1.2 [facility], [address] [place] [address] 08723 Total Bilirubin March 25, 2020 8:11am 0.2 mg/dL 0.3-1.2 [facility], [address] [place] [address] 86392 Total Bilirubin March 11, 2020 12:14pm 0.2 mg/dL 0.3-1.2 [facility], [address] [place] [address] 75906 Total Bilirubin March 02, 2020 11:00am 0.4 mg/dL 0.3-1.2 [facility], [address] [place] [address] 06373 Total Bilirubin February 26, 2020 10:02am 0.3 mg/dL 0.3-1.2 [facility], [address] [place] [address] 84836 Total Bilirubin February 20, 2020 8:35am 0.3 mg/dL 0.3-1.2 [facility], [address] [place] [address] 39861 Albumin August 09, 2020 7:35pm 3.6 g/dL 3.2-4.8 [facility], [address] [place] [address] Albumin August 03, 2020 2:35pm 3.5 g/dL 3.2-4.8 [facility], [address] [place] [address] 21746 Albumin July 01, 2020 9:40pm 3.5 g/dL 3.2-4.8 [facility], [address] [place] [address] Albumin May 18, 2020 6:17am 3.0 g/dL 3.2-4.8 [facility], [address] [place] [address] Albumin March 25, 2020 8:11am 3.0 g/dL 3.2-4.8 [facility], [address] [place] [address] Albumin March 11, 2020 12:14pm 3.2 g/dL 3.2-4.8 [facility], [address] [place], [place] [id number] Albumin March 02, 2020 11:00am 3.1 g/dL 3.2-4.8 [facility], [address] [place] [address] Albumin February 26, 2020 10:02am 3.4 g/dL 3.2-4.8 [facility], [address] [place] [address] Albumin February 20, 2020 8:35am 3.5 g/dL 3.2-4.8 [facility], [address] [place] [address] Serum Total Protein August 09, 020 7:35pm 8.2 g/dL 5.7-8.2 [facility], [address] [place], [place] [id number] Serum Total Protein August 03, 020 2:35pm 8.1 g/dL 5.7-8.2 [facility], [address] [place], [place] [address] Serum Total Protein July 01 9:40pm 8.0 g/dL 5.7-8.2 [facility], [address] [place], [place] [address] Serum Total Protein May 18, 2020 6:17am 6.6 g/dL 5.7-8.2 [facility], [address] [place] [address] 36005 Serum Total Protein March 25, 2020 8:11a m 7.7 g/dL 5.7-8.2 [facility], [address] [place] [address] 04934 Serum Total Protein March 11, 2020 12:14p m 7.6 g/dL 5.7-8.2 [facility], [address] [place] [address] [id number] Serum Total Protein March 02, 2020 11:00a m 7.9 g/dL 5.7-8.2 [facility], [address] [place] [id number] Serum Total Protein February 26, 2020 10:02am 7.6 g/dL 5.7-8.2 [facility], [address] [place] [address] [id number] Serum Total Protein February 20, 2020 8:35am 7.9 g/dL 5.7-8.2 [facility], [address] [place] [address] [id number] Lactic Acid Level July 01, 2020 9:40p m 1.0 mmol/L 0.5-2.2 [facility], [address] [place] [address] [id number] Human Chorionic Gonadotropin, Quant August 09, 2020 7:35pm 92496 mIU/mL 0-10 APPROXIMATE GESTATION AGE APRROX IMATE HCG RANGE 0-1 WEEK 0 - 50 1-2 WEEKS 40 - 300 2-3 WEEKS 100 - 1,000 3-4 WEEKS 500 - 6,000 1-2 MONTHS 5,000 - 200,000 2-3 MONTHS 10,000 - 100,000 2ND TRIMESTER 3,000 - 50,000 3RD TRIMESTER 1,000 - 50,000 [facility], [address] [place] [address] [id number] Human Chorionic Gonadotropin, Quant August 03, 2020 2:35pm 87988 mIU/mL 0-10 APPROXIMATE GESTATION AGE APRROX IMATE HCG RANGE 0-1 WEEK 0 - 50 1-2 WEEKS 40 - 300 2-3 WEEKS 100 - 1,000 3-4 WEEKS 500 - 6,000 1-2 MONTHS 5,000 - 200,000 2-3 MONTHS 10,000 - 100,000 2ND TRIMESTER 3,000 - 50,000 3RD TRIMESTER 1,000 - 50,000 [facility], [address] [place] [address] [id number] Human Chorionic Gonadotropin, Quant July 01, 2020 10:10am Less than 1 mIU/mL 0-1 0 APPROXIMATE GESTATION AGE APRROX IMATE HCG RANGE 0-1 WEEK 0 - 50 1-2 WEEKS 40 - 300 2-3 WEEKS 100 - 1,000 3-4 WEEKS 500 - 6,000 1-2 MONTHS 5,000 - 200,000 2-3 MONTHS 10,000 - 100,000 2ND TRIMESTER 3,000 - 50,000 3RD TRIMESTER 1,000 - 50,000 [facility], [address] [place] [address] Thyroid Stimulating Hormone (TSH) Ju ly 2019 10:02am 1.84 uIU/mL 0.35-5.50 [facility], [address] [place] [address] Serum Test, Qualitative De cember 2019 2:35pm Positive NEGATIVE [facility], [address] [place] [address] Serum Test, Qualitative No vember 2019 9:40pm Negative NEGATIVE [facility], [address] [place] [address] Serum Test, Qualitative Se ptember 2019 7:20pm Negative NEGATIVE [facility], [address] [place] [address] Serum Test, Qualitative Au kem 2019 8:11am Negative NEGATIVE [facility], [address] [place] [address] Urine HCG, Qualitative March 11 11:00am Negative NEGATIVE [facility], [address] [place] [address] Urine HCG, Qualitative March 02 11:00am Negative NEGATIVE [facility], [address] [place] [address] Urine HCG, Qualitative February 19 8:32am Negative NEGATIVE [facility], [address] [place] [address] Coronavirus (COVID-19)(PCR) March 252019 2:30pm Not detected Not Detec dee This test was developed and its performa nce characteristicsdetermined by [employer]. This test has not beenFDA cleared or [...] in this assay.Performed at: [facility] [address] [id number] Director: Deisy Hdez MD, Phone: [phone] [facility] , [address] [facility] [id number] Urine Random Creatinine February 27 7:19am 234.0 mg/dL THERE IS NO ESTABLISHED RANGE FOR RANDOM URINE CREATININE [facility], [address] [place] [address] Urine Microalbumin February 28, 2020 7:19am 13.7 mg/L 0.0-29.9 [facility], [address] [place] [address] Urine Microalbumin/Creatinine Ratio February 28, 2020 7:19am 5.8 ug/mg 0.0-30.0 [facility], [address] [place] [address] Hemoglobin A1c February 26, 2020 10:02am 5.3 [...] glucose control. * High risk of developing plastic surgery nurse complications such asretinopathy, nephropathy, neuropathy, cardiopathy, etc. Some danger of hypoglycemic reaction in Type I diabetics.Some glucose intolerant individuals and "Sub Clinical"diabetics may demonstrate HGBA1C levels in this area. [facility], [address] [place] [address] Estimated Average Glucose (eAG) February 26, 2020 10:02am 105 mg/dl An A1C of 7% - the goal of diabetic therapy - is equivalentto an EAG of 154 mg/dl. [facility], [address] [place] [address] Microbiology Results Procedure Source Result Collection Date/Time Result Date/Time Result Comment Performing Site Urine Culture Urine,clean catch August 03, 2020 2:50pm August 04, 2020 11:45am [facility], [address] [place] [address] Urine Culture Urine,voided July 01, 2020 9:30pm June 232019 7:24am [facility], [address] [place] [address] Urine Culture Urine,voided May 18, 2020 1:15am Septembe 2019 11:25am [facility], [address] [place] [address] Urine Culture Urine,clean catch March 25, 2020 9:05am March 26, 2020 1:36pm [facility], [address] [place] [address] Urine Culture Urine,clean catch March 11, 2020 12:00pm March 12, 2 020 1:24pm [facility], [address] [place] [address] Urine Culture Urine,voided March 05, 2020 3:29pm March 06 9:18am [facility], [address] [place] [address] Urine Culture Urine,voided March 02, 2020 11:48am March 03, 2 020 8:26am [facility], [address] [place] [address] Streptococcus Rapid Screen Throat March 13, 2020 10:34am March 14, 2 020 8:58am [facility], [address] [place] [address]28[address] Streptococcus Rapid Screen Throat March 13, 2020 10:34am March 13, 2 020 11:04am [facility], [address] [place] [address] Blood Culture Venous blood No growth. July 01, 2020 9:40pm June 232019 9:46pm [facility], [address] [place] [address] SARS-CoV-2 (PCR) Interpretation Naso pharyngeal No Organisms Detected July 01, 2020 9:45pm July 01, 2020 10:29pm [facility], [address] [place] [address] Nasal BinaxNow Covid - 19 Ag Negative July 30, 2020 9:45am July 302019 11:56am [facility], [address] [place] [address] Gastrointestinal Tract Panel (PCR) Stool C. difficile toxin detected May 17, 2020 3:03pm May 17, 2020 5:25pm [facility], [address] [place] [address] Respiratory Panel (PCR) Nasopharyngeal No Organisms Detected May 18, 2020 1:40am May 18, 2020 2:49am [facility], [address] [place] [address] Diagnostic Imaging Reports Report Dictated Date/Time Dictated By Status Radiology Report February 28, 2020 9:48am Oliverio Chen MD completed [place] [id number] [id number] [phone] NAME SEX PT STATUS ACCOUNT NUMBER ANNA MARIE BELTRAN REG REF [id number] ORDERING PHYSICIAN LOCATION MEDICAL RECORD NO. Jose Kramer DO [id number] ATTENDING PHYSICIAN DATE OF DATE OF EXAM/TIME [...] 02, 2020 1:53pm Warren Bourne MD completed [place] [id number] [place] [id number] [phone] NAME SEX PT STATUS ACCOUNT NUMBER ANNA MARIE BELTRAN [facility] [id number] ORDERING PHYSICIAN LOCATION MEDICAL RECORD NO. Sameer Islas MD ER [id number] ATTENDING PHYSICIAN DATE OF DATE OF EXAM/TIME [...] PhD. Reported By Warren Bourne MD on 03/02/201352 Signed By Warren Bourne MD on 03/02/201352 Date Time CC: Jose Kramer DO; Warren Bourne MD Techn: JUMASA Trans Dt/Tm: Trans by: DT Prt Dt/Tm: : Total DLP = 1121.00 mGy-cm : Total Radiation Dose = 16.8150 mSv Lifetime Dose: 16.8150 mS v Radiology Report March 12, 2020 2:59pm Oliverio Chen MD completed [facility] [address] [place] [id number] [phone] NAME SEX PT STATUS ACCOUNT NUMBER ANNA MARIE BELTRAN REG REF [id number] ORDERING PHYSICIAN LOCATION MEDICAL RECORD NO. Pola Meadows MD [id number] ATTENDING PHYSICIAN DATE OF DATE OF EXAM/TIME NiaJose 1995 03/12/201320 TYPE / EXAM US Pelvic [...] Radiology Report March 25, 2020 10:18am Oliverio Cehn MD completed [facility] [address] [place], [place] [id number] [phone] NAME SEX PT STATUS ACCOUNT NUMBER ANNA MARIE BELTRAN REG [id number] ORDERING PHYSICIAN LOCATION MEDICAL RECORD NO. Hiren Perez MD [id number] ATTENDING PHYSICIAN DATE OF DATE OF EXAM/TIME [...] May 17 9:41pm Ulisses [place] [address] [phone] NAME SEX PT STATUS ACCOUNT NUMBER ANNA MARIE BELTRAN [facility] [id number] ORDERING PHYSICIAN LOCATION MEDICAL RECORD NO. Mikhail Sheriff MD ER [id number] ATTENDING PHYSICIAN DATE OF DATE OF EXAM/TIME [...] 2020 10:55p m Telly Robledo MD completed [facility] [address] [facility] [place] [address] [phone] NAME SEX PT STATUS ACCOUNT NUMBER ANNA MARIE BELTRAN [facility] [id number] ORDERING PHYSICIAN LOCATION MEDICAL RECORD NO. Mikhail Sheriff MD ER [id number] ATTENDING PHYSICIAN DATE OF DATE OF EXAM/TIME [...] Ocampo Dt/Tm: Trans by: LUPIS Prt Dt/Tm: 5330-7154: Total DLP = 0.00 mGy-cm Fluoroscopy Time (in secs): Radiology Report July 01, 2020 11:07p m Niels Wilkerson MD [place] [id number] [phone] NAME SEX PT STATUS ACCOUNT NUMBER ANNA MARIE BELTRAN [facility] ER [id number] ORDERING PHYSICIAN LOCATION MEDICAL RECORD NO. Mikhail Sheriff MD ER [id number] ATTENDING PHYSICIAN DATE OF DATE OF EXAM/TIME [...] 2020 7:33p m Gibran Villa MD completed [facility] [address] [facility] [place] [address] [phone] NAME SEX PT STATUS ACCOUNT NUMBER ANNA MARIE BELTRAN REG ER [id number] ORDERING PHYSICIAN LOCATION MEDICAL RECORD NO. Daljitmatthew Alex MD ER [id number] ATTENDING PHYSICIAN DATE OF DATE OF EXAM/TIME [...] 2020 7:59p m Telly Robledo MD completed [place] [address] [place] [address] [phone] NAME SEX PT STATUS ACCOUNT NUMBER ANNA MARIE BELTRAN [facility] ER [id number] ORDERING PHYSICIAN LOCATION MEDICAL RECORD NO. Daljit Alex MD ER [id number] ATTENDING PHYSICIAN DATE OF DATE OF EXAM/TIME [...] 03, 2020 7:34p m Gibran Villa MD [place] [address] [place] [address] [phone] NAME SEX PT STATUS ACCOUNT NUMBER BELTRANANNA MARIE [facility] ER [id number] ORDERING PHYSICIAN LOCATION MEDICAL RECORD NO. Daljit Alex MD ER [id number] ATTENDING PHYSICIAN DATE OF DATE OF EXAM/TIME Nicol Sebastian YELITZA 1995 08[birth year]/201858 TYPE / EXAM US OB Ultrasound <14 weeks REASON FOR EXAM RLQ PAIN; R/O ECTOPIC [address] [address] [phone] NAME SEX PT STATUS ACCOUNT NUMBER CANDIE BELTRANELYNN Keri Zak [facility] ER [id number] ORDERING PHYSICIAN LOCATION MEDICAL RECORD NO. Daljit Alex MD ER [id number] ATTENDING PHYSICIAN DATE OF DATE OF EXAM/TIME Maura Sebastianadrian TORRE 1995 08/03/201857 TYPE / EXAM US OB [...] MD Techn: FRE Trans Dt/Tm: Trans by: DT Prt Dt/Tm: : Total DLP = 0.00 mGy-cm : Total Radiation Dose = 0.0000 mSv Lifetime Dose: 56.7900 mSv Reported By Gibran Villa MD on 08/03/201933 Signed By Gibran Villa MD on 08/06/20 124 Date Time CC: Nicol Sebastian; Gibran Villa [...] ABDOMINAL PAIN ABDOMINAL PAIN, BLOOD IN URINE/STOOL Reason for Visit Anxiety Depression GERD (gastroesophageal [...] Bianka Sen MD Departed Physician/Provider Office Visit -[facility] February 20, 2020 10:22am February 20, 2020 11:42am Jose Kramer DO Registered Referred -Laboratory February 26, 2020 9:54am Jose Kramer DO Registered Referred -Ultrasound February 28, 2020 6:57am Jose Kramer DO Departed Emergency -Emergency Room ER March 02, 2020 10:34am March 02, 2020 1:45pm null Departed Emergency -Emergency Room ER March 05, 2020 2:01pm March 05, 2020 4:29pm null Departed Physician/Provider Office Visit -[facility] March 11, 2020 9:28am March 11, 2020 10:13am Trice Aj NP Departed Physician/Provider Office Visit -[facility] March 11, 2020 10:17am March 11, 2020 11:49am Pola Meadows MD Registered Referred -Laboratory March 11, 2020 11:56am Trice Aj NP Registered Referred -Ultrasound March 12, 2020 11:38am Pola Meadows MD Departed Physician/Provider Office Visit -[facility] March 12, 2020 12:22pm March 12, 2020 2:13pm Trice Aj NP Departed Emergency -Emergency Room ER March 13, 2020 9:18am March 13, 2020 10:18am null Departed Emergency -Emergency Room ER March 25, 2020 7:55am March 25, 2020 9:27am null Departed Physician/Provider Office Visit -[facility] March 25, 2020 2:51pm March 25, 2020 2:52pm Nathalie Pace Registered Referred -Lab Drop Off March 25, 2020 3:08pm Nathalie Pace Departed Physician/Provider Office Visit -[facility] March 28, 2020 7:01am March 28, 2020 7:47am Trice Aj NP Registered Outpatient -[facility] April 05, 2020 8:29am Trice Aj NP Registered Referred -Laboratory May 17, 2020 1:48pm Trice longoria NP Discharged Inpatient -[facility] May 18, 2020 12:18am May 18, 2020 2:40pm Tad Menendez MD Registered Outpatient -[facility] May 20, 2020 2:25pm Amara Garcia RN Departed Physician/Provider Office Visit -[facility] May 23, 2020 7:51am May 23, 2020 8:35am Trice Aj NP Departed Physician/Provider Office Visit -[facility] May 30, 2020 9:25am May 30, 2020 11:56am Nicol Sebastina NP Departed Physician/Provider Office Visit -[facility] June 10, 2020 8:26am June 10, 2020 8:58am Jarret Herbert MD Departed Physician/Provider Office Visit -[facility] June 28, 2020 3:47pm June 28, 2020 4:33pm Nicol Sebastian NP Departed Physician/Provider Office Visit -[facility] July 01, 2020 9:04am July 01, 2020 11:04am Nicol Sebastian NP Registered Referred -Laboratory July 01, 2020 9:47am Kiersten Schulz DO Departed Emergency -Emergency Room ER July 01, 2020 8:40pm July 02, 2020 12:20am null Departed Physician/Provider Office Visit -[facility] July 04, 2020 11:14am July 04, 2020 12:47pm Nicol Sebastian NP Departed Physician/Provider Office Visit -[facility] July 25, 2020 9:54am July 25, 2020 10:57am Nicol Sebastian NP Registered Referred -Laboratory July 30, 2020 9:45am Jaki Elias MD Departed Emergency -Emergency Room ER August 03, 2020 1:29pm August 03, 2020 8:21pm null Departed Emergency -Emergency Room ER August 09, 2020 6:19pm August 10, 2020 5:45am null Recent Diagnosis Onset Date Anxiety Depression [...] Response Neil e Recorded Functional Status Complete Allen May 18, 2020 1:30am Goals Goals may be documented in an alternate section. Immunizations No Immunization Information Available Mental Status Observation Response Neil e Recorded Impairments No impairments or barriers August 09, 2020 6:20pm Cognitive Status Normal Cognition May 18, 2020 1:30am Medical Equipment No Medical Equipment Information available Insurance Providers Guarantor ANNA MARIE BELTRAN Address [address] [place] [address] Contact Info. Home Phone: Payer Policy Id Coverage Id Subscriber's Name Subscriber Id Effective Date Expiration Date [facility] [id number] ANNA MARIE BELTRAN [id number] [facility] [id number] ANNA MARIE BELTRAN [id number] [facility] [id number] ANNA MARIE BELTRAN [id number] MEDICAID [id number] ANNA MARIE BELTRAN [id number] Self Pay Self N/A Plan of Treatment Awaiting child care aide referral. Increase diet and exercise. Referral to [facility] for chronic inflammation. Elevate legs. Sertaline [...] GI July 26, 2020 for upper GI. [employer] rice, applesauce, bananas, and toast. Resolved. [...] she has had counseling in the [facility], but symptoms are worse at this time, d/t recent move to [place]. Will continue current meds and will refer to psych. [employer] appt with behavioral health this week. Taking [...] palpation without abnormal physical find ings. Doubt STRUCTURAL ANALYSIS ENGINEER cause but send urine culture in case. [...] with PO vancomycin Trice dimas NP Email: [email or web address] Phone: [facility] [address] [facility] [address] Call for an appointment to be seen in the next 48 hours Jose Kramer DO Email: [email or web address] Work Phone: [phone] [facility] [phone] Call for an appointment for follow-up for Wednesday or Wednesday Jose Kramer DO Email: [email or web address] Work Phone: [phone] [facility] [phone] Future Procedures Future procedure information is unavailable [...] 10, 2020 9:32am Heart Rate 89 /min -100 June 10, 2020 9:32am Respiratory rate 18 [...]
--- OUTSIDE RECORDS SUMMARY | 2020-10-18 09:54 | CCD | Continuity of Care Document ---
Author Author [facility] Organization [facility] Address [address] [place] [address] Phone Support Name Relationship Address Phone Jose Kramer PRS [address] [place] [address] Rachel Senn Bianka PRS [address] [place] [address] John Islas PRS [address] [place] [address] [place] [address] Pola [place] [address] Pola Meadows PRS [address] [place] [address] Hiren Perez PRS [address] [place] [address] Nathalie Pace PRS [address] [place] [address] Verónica Sheriff PRS [address] [place] [address] Tad Menendez PRS [address] [place] [address] Amara Garcia PRS Unknown Unavailable Nicol Sebastian PRS [address] [place] [address] Darnell Herbert PRS [address] [place] [address] Kiersten Schulz PRS [address] [place] [address] Allergies, Adverse Reactions, Alerts Allergen Type Severity Reaction Last Updated Verified Status cephalexin Allergy Moder ate Hives July 25, 2020 10:31am Yes Active latex Allergy Moderate Rash July 25, 2020 10:31am Yes Active ondansetron Allergy Mode rate Hives July 25, 2020 10:31am Yes Active sulfamethoxazole Allergy Moderate Hives July 25, 2020 10:31am Yes Active trimethoprim Allergy Mod erate HivJuly 25, 2020 10:31am Yes Active Medications Medication Status Dose Units [...] 2020 11:42am July 04, 2020 11:46am Quetiapine Active 50 MG PO At Bedtime July 04, 2020 11:45am Sertraline Active 100 MG PO At Bedtime July 04, 2020 12:44pm Pantoprazole Active 40 MG PO daily July [...] 01, 2020 9:11pm July 04, 2020 11:42am Buspirone Discontinued 7 .5 MG PO 2 Times Per Day 60 February 22, 2020 10:18am July 01, 2020 [...] 21, 2020 10:51am July 01, 2020 9:14am Problems Active Problems Medical Problem Onset Date Status Daytime sleepiness Act krzysztof Insomnia Active PTSD (post-traumatic stress disorder) Active Metrorrhagia Active Morbid obesity Active Anxiety Active Depression Active Diarrhea Active Snoring Active Wax in ear Active GERD (gastroesophageal reflux disease) Active Abdominal pain Active HTN (hypertension) Act krzysztof Nausea Active Asthma Active Hepatomegaly Active Inactive/Resolved Problems Medical Problem Onset Date Status RUQ abdominal pain Res olved UTI (urinary tract infection) Resolved Hemorrhagic cystitis R esolved C. difficile diarrhea Resolved URI (upper respiratory infection) Resolved Chronic pain of both ears Resolved Dysuria Resolved Persistent cough for 3 weeks or longer Resolved Acute viral pharyngitis Resolved Procedures Procedure Date Performed Status CT Abd/pel w/ contrast July 01, 2020 [...] Result Comment Performing Site White Blood Count July 01, 2020 9:40p m 11.2 10e3/uL 4.45-10.71 [facility], [address] [place] [address] 35901 White Blood Count May 18 6:17am 9.3 10e3/uL 4.45-10.71 [facility], [address] [place] [address] 52661 White Blood Count March 25, 2020 8:11am 10.8 10e3/uL 4.45-10.71 [facility], [address] [place] [address] 22949 White Blood Count March 11, 2020 12:14pm 11.3 10e3/uL 4.45-10.71 [facility], [address] [place] [address] White Blood Count March 02, 2020 11:00am 10.3 10e3/uL 4.45-10.71 [facility], [address] [place] [address] White Blood Count February 26, 2020 10:02am 9.8 10e3/uL 4.45-10.71 [facility], [address] [place] [address] White Blood Count February 20, 2020 8:35am 8.8 10e3/uL 4.45-10.71 [facility], [address] [place] [address] Red Blood Count July 01, 2020 9:40pm 4.51 10e6/uL 4.20-5.40 [facility], [address] [place] [address] Red Blood Count May 18, 2020 6:17a m 4.10 10e6/uL 4.20-5.40 [facility], [address] [place] [address] Red Blood Count March 25, 2020 8:11am 4.25 10e6/uL 4.20-5.40 [facility], [address] [place] [address] Red Blood Count March 11, 2020 12:14pm 4.58 10e6/uL 4.20-5.40 [facility], [address] [place] [address] Red Blood Count March 02, 2020 11:00am 4.52 10e6/uL 4.20-5.40 [facility], [address] [place] [address] Red Blood Count February 26, 2020 10:02am 4.84 10e6/uL 4.20-5.40 [facility], [address] [place] [address] Red Blood Count February 20, 2020 8:35am 5.02 10e6/uL 4.20-5.40 [facility], [address] [place] [address] Hemoglobin July 01, 2020 9:40pm 11.8 g/dL 10.7-15.4 [facility], [address] [place] [address] Hemoglobin May 18, 2020 6:17am 10.9 g/dL 10.7-15.4 [facility], [address] [place] [address] 42656 Hemoglobin March 25, 2020 8:11am 11.5 g/dL 10.7-15.4 [facility], [address] [place] [address] Hemoglobin March 11, 2020 12:14pm 12.4 g/dL 10.7-15.4 [facility], [address] [place] [address] Hemoglobin March 02, 2020 11:00am 12.1 g/dL 10.7-15.4 [facility], [address] [place] [address] Hemoglobin February 26, 2020 10:02am 13.0 g/dL 10.7-15.4 [facility], [address] [place] [address] Hemoglobin February 20, 2020 8:35am 13.4 g/dL 10.7-15.4 [facility], [address] [place] [address] 48165 Hematocrit July 01, 2020 9:40pm 36.6 % 37-47 [facility], [address] [place] [address] Hematocrit May 18, 2020 6:17am 34.1 % 37-47 [facility], [address] [place] [address] 65643 Hematocrit March 25, 2020 8:11am 34.7 % 37-47 [facility], [address] [place] [address] Hematocrit March 11, 2020 12:14pm 37.2 % 37-47 [facility], [address] [place] [address] 05449 Hematocrit March 02, 2020 11:00am 36.9 % 37-47 [facility], [address] [place] [address] 23251 Hematocrit February 26, 2020 10:02am 39.4 % 37-47 [facility], [address] [place] [address] 09052 Hematocrit February 20, 2020 8:35am 41.0 % 37-47 [facility], [address] [place] [address] Mean Corpuscular Volume June 9:40pm 81.2 fl 80-96 [facility], [address] [place] [address] 84401 Mean Corpuscular Volume May 182019 6:17am 83.2 fl 80-96 [facility], [address] [place] [address] 97624 Mean Corpuscular Volume March 25, 2020 8:11am 81.[address] [place] [address] [facility]ORATORY, [address] [place] [address] 91448 Mean Corpuscular Volume March 11 12:14pm 81.[address] [facility], [address] [place] [address] 63616 Mean Corpuscular Volume March 02 11:00am 81.[address] [place] [address] LABORATORY, [address] [place] [address] 88011 Mean Corpuscular Volume February 25 10:02am 81.[address] [place] [address] LABORATORY, [address] [place] [address] 51451 Mean Corpuscular Volume February 19 8:35am 81.[address] [place] [address] LABORATORY, [address] [place] [address] 67789 Mean Corpuscular Hemoglobin July 01, 2020 9:40pm 26.2 pg 27-31 [facility], [address] [place] [address] 90338 Mean Corpuscular Hemoglobin 2019 6:17am 26.6 pg 27-31 [facility], [address] [place] [address] 44157 Mean Corpuscular Hemoglobin March 252019 8:11am 27.1 pg 27-31 [facility], [address] [place] [address] 98980 Mean Corpuscular Hemoglobin February 12:14pm 27.1 pg 27-31 [facility], [address] [place] [address] 81147 Mean Corpuscular Hemoglobin February 11:00am 26.8 pg 27-31 [facility], [address] [place] [address] 71207 Mean Corpuscular Hemoglobin February 10:02am 26.9 pg 27-31 [facility], [address] [place] [address] 25657 Mean Corpuscular Hemoglobin January 8:35am 26.7 pg 27-31 [facility], [address] [place] [address] 26818 Mean Corpuscular Hemoglobin Concent July 01, 2020 9:40pm 32.2 g/dl 33-37 [facility], [address] [place] [address] 59808 Mean Corpuscular Hemoglobin Concent May 18, 2020 6:17am 32.0 g/dl [address] [place] [address] [facility]ATORY, [address] [place] [address] 27878 Mean Corpuscular Hemoglobin Concent March 25, 2020 8:11am 33.1 g/dl [address] [facility], [address] [place] [address] 79488 Mean Corpuscular Hemoglobin Concent March 11, 2020 12:14pm 33.3 g/dl [address] [facility], [address] [place] [address] 56791 Mean Corpuscular Hemoglobin Concent March 02, 2020 11:00am 32.8 g/dl [address] [facility], [address] [place] [address] 28704 Mean Corpuscular Hemoglobin Concent February 26, 2020 10:02am 33.0 g/dl [address] [facility], [address] [place] [address] 40506 Mean Corpuscular Hemoglobin Concent February 20, 2020 8:35am 32.7 g/dl [address] [place] [address] LABORATORY, [address] [place] [address] 61301 Red Cell Distribution Width July 01, 2020 9:40pm 14 % 11-15 [facility], [address] [place] [address] 30462 Red Cell Distribution Width 2019 6:17am 14 % 11-15 [facility], [address] [place] [address] 82538 Red Cell Distribution Width March 252019 8:11am 15 % 11-15 [facility], [address] [place] [address] 19710 Red Cell Distribution Width February 12:14pm 15 % 11-15 [facility], [address] [place] [address] 45806 Red Cell Distribution Width February 11:00am 14 % 11-15 [facility], [address] [place] [address] 67924 Red Cell Distribution Width February 10:02am 14 % 11-15 [facility], [address] [place] [address] 92973 Red Cell Distribution Width January 8:35am 15 % 11-15 [facility], [address] [place] [address] 47400 Platelet Count July 01, 2020 9:40pm 392 10e3/ul 130-472 [facility], [address] [place] [address] Platelet Count May 18, 2020 6:17am 332 10e3/ul 130-472 [facility], [address] [place] [address] Platelet Count March 25, 2020 8:11am 395 10e3/ul 130-472 [facility], [address] [place] [address] Platelet Count March 11, 2020 12:14pm 460 10e3/ul 130-472 [facility], [address] [place] [address] Platelet Count March 02, 2020 11:00am 410 10e3/ul 130-472 [facility], [address] [place] [address] Platelet Count February 26, 2020 10:02am 436 10e3/ul 130-472 [facility], [address] [place] [address] Platelet Count February 20, 2020 8:35am 479 10e3/ul 130-472 [facility], [address] [place] [address] Mean Platelet Volume July 01 9:40pm 8.6 fl 9.1-13.1 [facility], [address] [place] [address] Mean Platelet Volume May 18, 2020 6:17am 8.6 fl 9.1-13.1 [facility], [address] [place] [address] Mean Platelet Volume March 25 0 8:11am 8.3 fl 9.1-13.1 [facility], [address] [place] [address] Mean Platelet Volume March 11, 2020 12:14pm 8.4 fl 9.1-13.1 [facility], [address] [place] [address] Mean Platelet Volume March 02, 2020 11:00am 8.6 fl 9.1-13.1 [facility], [address] [place] [address] Mean Platelet Volume February 26, 2020 10:02a m 8.7 fl 9.1-13.1 [facility], [address] [place] [address] Mean Platelet Volume February 20, 2020 8:35a m 8.7 fl 9.1-13.1 [facility], [address] [place] [address] Neutrophils (%) (Auto) July 01, 2020 9:40pm 66.3 % 41-77 [facility], [address] [place] [address] 28273 Neutrophils (%) (Auto) April 6:17am 66.1 % [address] [place] [address] [facility]ORATORY, [address] [place] [address] 37192 Neutrophils (%) (Auto) March 25 8:11am 58.4 % [address] [place] [address] [facility], [address] [place] [address] 34179 Neutrophils (%) (Auto) March 11 12:14pm 72.2 % [address] [place] [address] [facility]ORY, [address] [place] [address] 90526 Neutrophils (%) (Auto) March 02 11:00am 65.4 % [address] [place] [address] [facility]OR[facility]ORY, [address] [place] [address] 90259 Neutrophils (%) (Auto) February 25 0 10:02am 62.6 % [address] [place] [address] [facility]OR[facility]ORY, [address] [place] [address] 95847 Neutrophils (%) (Auto) February 19 8:35am 62.4 % [address] [place] [address] [facility]ORY, [address] [place] [address] 37709 Absolute Neutrophil July 01 9:40pm 7.5 # 1.7-7.6 [facility], [address] [place] [address] 98205 Absolute Neutrophil May 18, 2020 6:17am 6.1 # 1.7-7.6 [facility], [address] [place] [address] 53603 Absolute Neutrophil March 25, 2020 8:11a m 6.3 # 1.7-7.6 [facility], [address] [place] [address] 72316 Absolute Neutrophil March 11, 2020 12:14p m 8.1 # 1.7-7.6 [facility], [address] [place] [address] 91596 Absolute Neutrophil March 02, 2020 11:00a m 6.7 # 1.7-7.6 [facility], [address] [place] [address] 79722 Absolute Neutrophil February 26, 2020 10:02am 6.1 # 1.7-7.6 [facility], [address] [place] [address] 20935 Absolute Neutrophil February 20, 2020 8:35am 5.5 # 1.7-7.6 [facility], [address] [place] [address] 45977 Lymphocytes (%) (Auto) July 01, 2020 9:40pm 21.4 % [address] [facility], [address] [place] [address] 21585 Lymphocytes (%) (Auto) April 6:17am 22.8 % 1446 [facility], [address] [place] [address] 87890 Lymphocytes (%) (Auto) March 25 020 8:11am 30.4 % [address] [facility], [address] [place] [address] 29050 Lymphocytes (%) (Auto) March 11 12:14pm 19.0 % [address] [facility], [address] [place] [address] 27673 Lymphocytes (%) (Auto) March 02 11:00am 23.6 % [address] [facility], [address] [place] [address] 80720 Lymphocytes (%) (Auto) February 25 0 10:02am 25.4 % [address] [facility], [address] [place] [address] 07551 Lymphocytes (%) (Auto) February 19 8:35am 26.5 % [address] [facility], [address] [place] [address] 38061 Lymphocytes # (Auto) July 01 9:40pm 2.4 # 0.6-4.6 [facility], [address] [place] [address] 01812 Lymphocytes # (Auto) May 18, 2020 6:17am 2.1 # 0.6-4.6 [facility], [address] [place] [address] 73143 Lymphocytes # (Auto) March 25 0 8:11am 3.3 # 0.6-4.6 [facility], [address] [place] [address] 84428 Lymphocytes # (Auto) March 11, 2020 12:14pm 2.1 # 0.6-4.6 [facility], [address] [place] [address] 53317 Lymphocytes # (Auto) March 02, 2020 11:00am 2.4 # 0.6-4.6 [facility], [address] [place] [address] 11598 Lymphocytes # (Auto) February 26, 2020 10:02a m 2.5 # 0.6-4.6 [facility], [address] [place] [address] 83925 Lymphocytes # (Auto) February 20, 2020 8:35a m 2.3 # 0.6-4.6 [facility], [address] [place] [address] 75313 Monocytes (%) (Auto) July 01 020 9:40pm 8.9 % -12 [facility], [address] [place] [address] 19810 Monocytes (%) (Auto) May 18, 2020 6:17am 8.7 % 4-12 [facility], [address] [place] [address] 97539 Monocytes (%) (Auto) March 25 0 8:11am 7.7 % 412 [facility], [address] [place] [address] 03916 Monocytes (%) (Auto) March 11, 2020 12:14pm 5.5 % 4-12 [facility], [address] [place] [address] 46654 Monocytes (%) (Auto) March 02, 2020 11:00am 7.8 % 4-12 [facility], [address] [place] [address] 43583 Monocytes (%) (Auto) February 26, 2020 10:02a m 8.2 % 4-12 [facility], [address] [place] [address] 97230 Monocytes (%) (Auto) February 20, 2020 8:35a m 8.0 % 4-12 [facility], [address] [place] [address] 35573 Monocytes # July 01, 2020 9:40pm 1.0 # 0.2-1.2 [facility], [address] [place] [address] 55243 Monocytes # May 18, 2020 6:17am 0.8 # 0.2-1.2 [facility], [address] [place] [address] 73968 Monocytes # March 25, 2020 8:11am 0.8 # 0.2-1.2 [facility], [address] [place] [address] 29037 Monocytes # March 11, 2020 12:14pm 0.6 # 0.2-1.2 [facility], [address] [place] [address] 98443 Monocytes # March 02, 2020 11:00am 0.8 # 0.2-1.2 [facility], [address] [place] [address] 67885 Monocytes # February 26, 2020 10:02am 0.8 # 0.2-1.2 [facility], [address] [place] [address] 10351 Monocytes # February 20, 2020 8:35am 0.7 # 0.2-1.2 [facility], [address] [place] [address] 83101 Eosinophils (%) (Auto) July 01, 2020 9:40pm 2.7 % 0-7 [facility], [address] [place] [address] 39637 Eosinophils (%) (Auto) April 6:17am 1.9 % 0-7 [facility], [address] [place] [address] 70790 Eosinophils (%) (Auto) March 25 8:11am 2.7 % 0-7 [facility], [address] [place] [address] 95041 Eosinophils (%) (Auto) March 11 12:14pm 2.5 % 0-7 [facility], [address] [place] [address] 54795 Eosinophils (%) (Auto) March 02 11:00am 2.4 % 0-7 [facility], [address] [place] [address] 28510 Eosinophils (%) (Auto) February 25 0 10:02am 3.1 % 0-7 [facility], [address] [place] [address] 71192 Eosinophils (%) (Auto) February 19 20 8:35am 2.6 % 0-7 [facility], [address] [place] [address] 57431 Absolute Eosinophils (CBC) July 01, 2020 9:40pm 0.3 # 0.0-0.5 [facility], [address] [place] [address] 53521 Absolute Eosinophils (CBC) May 18, 2020 6:17am 0.2 # 0.0-0.5 [facility], [address] [place] [address] 57837 Absolute Eosinophils (CBC) March 8:11am 0.3 # 0.0-0.5 [facility], [address] [place] [address] 32981 Absolute Eosinophils (CBC) February 12:14pm 0.3 # 0.0-0.5 [facility], [address] [place] [address] 94305 Absolute Eosinophils (CBC) February 11:00am 0.3 # 0.0-0.5 [facility], [address] [place] [address] 60463 Absolute Eosinophils (CBC) February 26, 2020 10:02am 0.3 # 0.0-0.5 [facility], [address] [place] [address] 88396 Absolute Eosinophils (CBC) January 8:35am 0.2 # 0.0-0.5 [facility], [address] [place] [address] 08892 Basophils (%) (Auto) July 01 9:40pm 0.4 % 0.4-1.3 [facility], [address] [place] [address] 74047 Basophils (%) (Auto) May 18, 2020 6:17am 0.3 % 0.4-1.3 [facility], [address] [place] [address] 45381 Basophils (%) (Auto) March 25 8:11am 0.5 % 0.4-1.3 [facility], [address] [place] [address] 62127 Basophils (%) (Auto) March 11, 2020 12:14pm 0.4 % 0.4-1.3 [facility], [address] [place] [address] 43880 Basophils (%) (Auto) March 02, 2020 11:00am 0.5 % 0.4-1.3 [facility], [address] [place] [address] 58533 Basophils (%) (Auto) February 26, 2020 10:02a m 0.4 % 0.4-1.3 [facility], [address] [place] [address] 39836 Basophils (%) (Auto) February 20, 2020 8:35a m 0.3 % 0.4-1.3 [facility], [address] [place] [address] 96624 Absolute Basophils (CBC) June 9:40pm 0.0 # 0.0-0.2 [facility], [address] [place] [address] 86577 Absolute Basophils (CBC) April 242019 6:17am 0.0 # 0.0-0.2 [facility], [address] [place] [address] 58472 Absolute Basophils (CBC) March 25, 2020 8:11am 0.1 # 0.0-0.2 [facility], [address] [place] [address] 95076 Absolute Basophils (CBC) March 11, 2020 12:14pm 0.0 # 0.0-0.2 [facility], [address] [place] [address] Absolute Basophils (CBC) March 02, 2020 11:00am 0.1 # 0.0-0.2 [facility], [address] [place] [address] 79885 Absolute Basophils (CBC) February 25 10:02am 0.0 # 0.0-0.2 [facility], [address] [place] [address] 17206 Absolute Basophils (CBC) February 20, 2020 8:35am 0.0 # 0.0-0.2 [facility], [address] [place] [address] 93079 Immature Granulocyte % (Auto) Novem 2019 9:40pm 0.3 % 0-2 [facility], [address] [place] [address] 46476 Immature Granulocyte % (Auto) Sept2019 6:17am 0.2 % 0-2 [facility], [address] [place] [address] 84064 Immature Granulocyte % (Auto) March 25, 2020 8:11am 0.3 % 0-2 [facility], [address] [place] [address] 60231 Immature Granulocyte % (Auto) February 212019 12:14pm 0.4 % 0-2 [facility], [address] [place] [address] 14986 Immature Granulocyte % (Auto) February 202019 11:00am 0.3 % 0-2 [facility], [address] [place] [address] 49829 Immature Granulocyte % (Auto) February 252019 10:02am 0.3 % 0-2 [facility], [address] [place] [address] 91479 Immature Granulocyte % (Auto) January 232019 8:35am 0.2 % 0-2 [facility], [address] [place] [address] 23463 Absolute Immature Granulocyte (auto July 01, 2020 9:40pm 0.0 # 0-0.1 [facility], [address] [place] [address] 24669 Absolute Immature Granulocyte (auto May 18, 2020 6:17am 0.0 # 0-0.1 [facility], [address] [place] [address] Absolute Immature Granulocyte (auto March 25, 2020 8:11am 0.0 # 0-0.1 [facility], [address] [place] [address] Absolute Immature Granulocyte (auto March 11, 2020 12:14pm 0.0 # 0-0.1 [facility], [address] [place] [address] Absolute Immature Granulocyte (auto March 02, 2020 11:00am 0.0 # 0-0.1 [facility], [address] [place] [address] Absolute Immature Granulocyte (auto February 26, 2020 10:02am 0.0 # 0-0.1 [facility], [address] [place] [address] 63776 Absolute Immature Granulocyte (auto February 20, 2020 8:35am 0.0 # 0-0.1 [facility], [address] [place] [address] 41222 Add Manual Differential June 9:40pm No [facility], [address] [place] [address] 53358 Add Manual Differential May 182019 6:17am No [facility], [address] [place] [address] Add Manual Differential March 25, 2020 8:11am No [facility], [address] [place] [address] 72042 Add Manual Differential March 11 12:14pm No [facility], [address] [place] [address] [id number] Add Manual Differential March 02 11:00am No [facility], [address] [place] [address] Add Manual Differential February 25 10:02am No [facility], [address] [place] [address] Add Manual Differential February 19 020 8:35am No [facility], [address] [place] [address] Differential Total Cells Counted Sep 2019 7:20pm 100 [facility], [address] [place] [address] [id number] Neutrophils (Manual) May 17, 2020 7:20pm 77 % 41-77 [facility], [address] [place] [address] Band Neutrophils May 17 0 7:20pm 3 % 0-5 [facility], [address] [place] [address] [id number] Lymphocytes (Manual) May 17, 2020 7:20pm 17 % 14-46 [facility], [address] [place] [address] 94386 Monocytes (Manual) May 17 020 7:20pm 3 % 4-12 [facility], [address] [place] [address] 10581 Platelet Estimate May 17 7:20pm Appears normal NORMAL [facility], [address] [place] [address] 32416 RBC Morphology 2 May 17 0 7:20pm Appears normal NORMAL [facility], [address] [place] [address] 80015 Urine Color May 18, 2020 12:15am Yellow [facility], [address] [place] [address] 60435 Urine Color February 20, 2020 8:40am Yellow [facility], [address] [place] [address] [id number] Urine Color July 01, 2020 9:30pm Yellow [facility], [address] [place] [address] 75001 Urine Color March 25, 2020 8:05am Yellow [facility], [address] [place] [address] 54642 Urine Color March 11, 2020 11:00am Yellow [facility], [address] [place] [address] 20017 Urine Color March 05, 2020 2:29pm Yellow [facility], [address] [place] [address] 90342 Urine Color March 02, 2020 10:48am Yellow [facility], [address] [place] [address] 80384 Urine Appearance July 01, 2020 9:30pm Cloudy CLEAR [facility], [address] [place] [address] 60131 Urine Appearance May 18 0 12:15am Clear CLEAR [facility], [address] [place] [address] 31043 Urine Appearance March 25, 2020 8:05am [facility], [address] [place] [address] 27065 Urine Appearance March 11, 2020 11:00am [facility], [address] [place] [address] [id number] Urine Appearance March 05, 2020 2:29pm [facility], [address] [place] [address] 75706 Urine Appearance March 02, 2020 10:48am [facility], [address] [place] [address] 32043 Urine Appearance February 20, 2020 8:40am Turbid CLE[facility], [address] [place] [address] Urine pH July 01, 2020 9:30pm 6.0 [facility], [address] [place] [address] Urine pH May 18, 2020 12:15am 6.0 [facility], [address] [place] [address] Urine pH March 25, 2020 8:05am 5.5 [facility], [address] [place] [address] Urine pH March 11, 2020 11:00am 6.5 [facility], [address] [place] [address] Urine pH March 05, 2020 2:29pm 6.0 [facility], [address] [place] [address] Urine pH March 02, 2020 10:48am 5.5 [facility], [address] [place] [address] Urine pH February 20, 2020 8:40am 5.5 [facility], [address] [place] [address] Urine Specific [place] July 01, 2020 9:30pm 1.026 [facility], [address] [place] [address] Urine Specific [place] April 12:15am >1.045 [facility], [address] [place] [address] Urine Specific [place] March 25 8:05am 1.025 [facility], [address] [place] [address] Urine Specific [place] March 11 11:00am 1.025 [facility], [address] [place] [address] Urine Specific [place] March 05 2:29pm 1.021 [facility], [address] [place] [address] Urine Specific [place] March 02 10:48am 1.025 [facility], [address] [place] [address] Urine Specific [place] February 19 8:40am 1.023 [facility], [address] [place] [address] 90188 Urine Leukocyte Esterase April 242019 12:15am Negative NEGATIVE [facility], [address] [place] [address] Urine Leukocyte Esterase February 20, 2020 8:40am Moderate NEGATIVE [facility], [address] [place] [address] 02028 Urine Leukocyte Esterase June 9:30pm Small NEGATIVE A Culture has been added to this specimen per established criteria [facility], [address] [place] [address] 68267 Urine Leukocyte Esterase March 25, 2020 8:05am Trace NEGATIVE A Culture has been added to this specimen per established criteria [facility], [address] [place] [address] 33909 Urine Leukocyte Esterase March 11, 2020 11:00am Trace NEGATIVE A Culture has been added to this specimen per established criteria [facility], [address] [place] [address] 04678 Urine Leukocyte Esterase March 05, 2020 2:29pm Trace NEGATIVE A Culture has been added to this specimen per established criteria [facility], [address] [place] [address] 08089 Urine Leukocyte Esterase March 02, 2020 10:48am Trace NEGATIVE A Culture has been added to this specimen per established criteria [facility], [address] [place] [address] 27621 Urine Nitrite May 18, 2020 12:15am Negative [facility], [address] [place] [address] 51995 Urine Nitrite February 20, 2020 8:40am Negative [facility], [address] [place] [address] 36169 Urine Nitrate July 01, 2020 9:30pm Negative [facility], [address] [place] [address] 38103 Urine Nitrate March 25, 2020 8:05am Negative [facility], [address] [place] [address] 99447 Urine Nitrate March 11, 2020 11:00am Negative [facility], [address] [place] [address] 04001 Urine Nitrate March 05, 2020 2:29pm Negative NEGATIVE [facility], [address] [place] [address] 95685 Urine Nitrate March 02, 2020 10:48am Negative NEGATIVE [facility], [address] [place] [address] 33565 Urine Protein July 01, 2020 9:30pm Trace NEGATIVE [facility], [address] [place] [address] 93628 Urine Protein May 18, 2020 12:15am Negative NEGATIVE [facility], [address] [place] [address] 25906 Urine Protein March 25, 2020 8:05am Negative NEGATIVE [facility], [address] [place] [address] 10590 Urine Protein March 11, 2020 11:00am Trace NEGATIVE [facility], [address] [place] [address] 24724 Urine Protein March 05, 2020 2:29pm Trace NEGATIVE [facility], [address] [place] [address] 82360 Urine Protein March 02, 2020 10:48am Negative NEGATIVE [facility], [address] [place] [address] 74421 Urine Protein February 20, 2020 8:40am 30 mg/dl NEGATIVE [facility], [address] [place] [address] 04351 Urine Glucose July 01, 2020 9:30pm Negative NEGATIVE [facility], [address] [place] [address] 01463 Urine Glucose May 18, 2020 12:15am Negative NEGATIVE [facility], [address] [place] [address] 27829 Urine Glucose March 25, 2020 8:05am Negative NEGATIVE [facility], [address] [place] [address] 86186 Urine Glucose March 11, 2020 11:00am Negative NEGATIVE [facility], [address] [place] [address] 13852 Urine Glucose March 05, 2020 2:29pm Negative NEGATIVE [facility], [address] [place] [address] 40794 Urine Glucose March 02, 2020 10:48am Negative NEGATIVE [facility], [address] [place] [address] 42969 Urine Glucose February 20, 2020 8:40am Negative NEGATIVE [facility], [address] [place] [address] 91922 Urine Ketones July 01, 2020 9:30pm Trace NEGATIVE [facility], [address] [place] [address] 34765 Urine Ketones May 18, 2020 12:15am Negative NEGATIVE [facility], [address] [place] [address] 99534 Urine Ketones March 25, 2020 8:05am Trace NEGATIVE [facility], [address] [place] [address] 52375 Urine Ketones March 11, 2020 11:00am Trace NEGATIVE [facility], [address] [place] [address] 83699 Urine Ketones March 05, 2020 2:29pm Negative NEGATIVE [facility], [address] [place] [address] 20822 Urine Ketones March 02, 2020 10:48am Negative NEGATIVE [facility], [address] [place] [address] 74753 Urine Ketones February 20, 2020 8:40am Trace NEGATIVE [facility], [address] [place] [address] 36230 Urine Urobilinogen July 01 0 9:30pm 1 eu/dl [facility], [address] [place] [address] Urine Urobilinogen May 18 12:15am 0.2 eu/dl [facility], [address] [place] [address] Urine Urobilinogen March 25, 2020 8:05am 1 eu/dl [facility], [address] [place] [address] Urine Urobilinogen March 11, 2020 11:00am 1 eu/dl [facility], [address] [place] [address] 55371 Urine Urobilinogen March 05, 2020 2:29pm 0.2 eu/dl [facility], [address] [place] [address] 57428 Urine Urobilinogen March 02, 2020 10:48am 1 eu/dl [facility], [address] [place] [address] 71819 Urine Urobilinogen February 20, 2020 8:40am 1 eu/dl [facility], [address] [place] [address] Urine Bilirubin July 01, 2020 9:30pm Negative NEGATIVE [facility], [address] [place] [address] 13149 Urine Bilirubin May 18, 2020 12:15am Negative NEGATIVE [facility], [address] [place] [address] Urine Bilirubin March 25, 2020 8:05am Negative NEGATIVE [facility], [address] [place] [address] 64988 Urine Bilirubin March 11, 2020 11:00am Negative NEGATIVE [facility], [address] [place] [address] Urine Bilirubin March 05, 2020 2:29pm Negative NEGATIVE [facility], [address] [place] [address] 63559 Urine Bilirubin March 02, 2020 10:48am Negative NEGATIVE [facility], [address] [place] [address] 69982 Urine Bilirubin February 20, 2020 8:40am Negative NEGATIVE [facility], [address] [place] [address] 29540 Urine Blood May 18, 2020 12:15am Negative NEGATIVE [facility], [address] [place] [address] 80368 Urine Blood February 20, 2020 8:40am Large NEGATIVE [facility], [address] [place] [address] 08689 Urine Blood July 01, 2020 9:30pm Moderate NEGATIVE A Culture has been added to this specimen per established criteria [facility], [address] [place] [address] 57436 Urine Blood March 25, 2020 8:05am Negative NEGATIVE [facility], [address] [place] [address] Urine Blood March 11, 2020 11:00am Negative NEGATIVE [facility], [address] [place] [address] Urine Blood March 05, 2020 2:29pm Large NEGATIVE A Culture has been added to this specimen per established criteria [facility], [address] [place] [address] Urine Blood March 02, 2020 10:48am Trace NEGATIVE [facility], [address] [place] [address] Microscopic Urinalysis Comment 2019 12:15am No [facility], [address] [place] [address] 73230 Microscopic Urinalysis Comment February 20, 2020 8:40am Microscopic added [facility], [address] [place] [address] Add Urine Microanalysis June 9:30pm Microscopic added [facility], [address] [place] [address] Add Urine Microanalysis March 25, 2020 8:05am Microscopic added [facility], [address] [place] [address] Add Urine Microanalysis March 11 020 11:00am Microscopic added [facility], [address] [place] [address] Add Urine Microanalysis March 05, 020 2:29pm Microscopic added [facility], [address] [place] [address] Add Urine Microanalysis March 02, 020 10:48am Microscopic added [facility], [address] [place] [address] Urine RBC July 01, 2020 9:30pm Occasional /[facility], [address] [place] [address] Urine RBC March 05, 2020 2:29pm 3-5 /[facility], [address] [place] [address] Urine RBC March 02, 2020 10:48am Occasional /[facility], [address] [place] [address] Urine WBC February 20, 2020 8:40am 20-30 /[facility], [address] [place] [address] Urine WBC July 01, 2020 9:30pm Occasional /[facility], [address] [place] [address] Urine WBC March 25, 2020 8:05am 3-5 /[facility], [address] [place] [address] Urine WBC March 11, 2020 11:00am 3-5 /hpf [facility], [address] [place] [address] Urine WBC March 05, 2020 2:29pm Occasional /hpf [facility], [address] [place] [address] Urine WBC March 02, 2020 10:48am 3-5 /hpf [facility], [address] [place] [address] Urine Squamous Epithelial Cells Nove mber 2019 9:30pm Moderate /hpf [facility], [address] [place] [address] Urine Squamous Epithelial Cells Augu 2019 8:05am Many /hpf [facility], [address] [place] [address] Urine Squamous Epithelial Cells March 11, 2020 11:00am Many /hpf [facility], [address] [place] [address] Urine Squamous Epithelial Cells March 05, 2020 2:29pm Many /[facility], [address] [place] [address] Urine Squamous Epithelial Cells March 02, 2020 10:48am Many /hpf [facility], [address] [place] [address] Urine Squamous Epithelial Cells February 20, 2020 8:40am Many /hpf [facility], [address] [place] [address] Urine Bacteria February 20, 2020 8:40am Moderate amount NEGATIVE [facility], [address] [place] [address] Urine Bacteria July 01, 2020 9:30pm Moderate amount NEGATIVE A Culture has been added to this specime n per established criteria [facility], [address] [place] [address] Urine Bacteria March 25, 2020 8:05am Small amount NEGATIVE [facility], [address] [place] [address] Urine Bacteria March 11, 2020 11:00am Small amount NEGATIVE [facility], [address] [place] [address] Urine Bacteria March 05, 2020 2:29pm Small amount NEGATIVE [facility], [address] [place] [address] Urine Bacteria March 02, 2020 10:48am Small amount NEGATIVE [facility], [address] [place] [address] Urine Mucus March 25, 2020 8:05am Small amount [facility], [address] [place] [address] 89730 Urine Sperm February 20, 2020 8:40am Few [facility], [address] [place] [address] 38071 Blood Urea Nitrogen July 01 9:40pm 6 mg/dL 05-15 [facility], [address] [place] [address] Blood Urea Nitrogen May 18, 2020 6:17am 7 mg/dL 05-15 [facility], [address] [place] [address] Blood Urea Nitrogen March 25, 2020 8:11a m 7 mg/dL 05-15 [facility], [address] [place] [address] Blood Urea Nitrogen March 11, 2020 12:14p m 6 mg/dL 05-15 [facility], [address] [place] [address] Blood Urea Nitrogen March 02, 2020 11:00a m 8 mg/dL 05-15 [facility], [address] [place] [address] Blood Urea Nitrogen February 26, 2020 10:02am 7 mg/dL 05-15 [facility], [address] [place] [address] Blood Urea Nitrogen February 20, 2020 8:35am 6 mg/dL 05-15 [facility], [address] [place] [address] 36773 Sodium Level July 01, 2020 9:40pm 141 mmol/L 132-146 [facility], [address] [place] [address] 12766 Sodium Level May 18, 2020 6:17am 143 mmol/L 132-146 [facility], [address] [place] [address] 18514 Sodium Level March 25, 2020 8:11am 137 mmol/L 132-146 [facility], [address] [place] [address] 32768 Sodium Level March 11, 2020 12:14pm 140 mmol/L 132-146 [facility], [address] [place] [address] 83296 Sodium Level March 02, 2020 11:00am 139 mmol/L 132-146 [facility], [address] [place] [address] 50901 Sodium Level February 26, 2020 10:02am 138 mmol/L 132-146 [facility], [address] [place] [address] 93703 Sodium Level February 20, 2020 8:35am 138 mmol/L 132-146 [facility], [address] [place] [address] 25579 Potassium Level July 01, 2020 9:40pm 3.7 mmol/L 3.5-5.5 [facility], [address] [place] [address] 21853 Potassium Level May 18, 2020 6:17a m 3.8 mmol/L 3.5-5.5 [facility], [address] [place] [address] 37539 Potassium Level March 25, 2020 8:11am 3.7 mmol/L 3.5-5.5 [facility], [address] [place] [address] 51964 Potassium Level March 11, 2020 12:14pm 4.3 mmol/L 3.5-5.5 [facility], [address] [place] [address] 12437 Potassium Level March 02, 2020 11:00am 4.1 mmol/L 3.5-5.5 [facility], [address] [place] [address] 14512 Potassium Level February 26, 2020 10:02am 4.1 mmol/L 3.5-5.5 [facility], [address] [place] [address] 09511 Potassium Level February 20, 2020 8:35am 4.1 mmol/L 3.5-5.5 [facility], [address] [place] [address] 57894 Chloride Level July 01, 2020 9:40pm 110 mmol/l 99-109 [facility], [address] [place] [address] 77745 Chloride Level May 18, 2020 6:17am 113 mmol/l 99-109 [facility], [address] [place] [address] 32792 Chloride Level March 25, 2020 8:11am 111 mmol/l 99-109 [facility], [address] [place] [address] 10178 Chloride Level March 11, 2020 12:14pm 111 mmol/l 99-109 [facility], [address] [place] [address] 42584 Chloride Level March 02, 2020 11:00am 111 mmol/l 99-109 [facility], [address] [place] [address] 73384 Chloride Level February 26, 2020 10:02am 107 mmol/l 99-109 [facility], [address] [place] [address] 04282 Chloride Level February 20, 2020 8:35am 108 mmol/l 99-109 [facility], [address] [place] [address] 25078 Carbon Dioxide Level July 01 9:40pm 22 mmol/l 20-31 [facility], [address] [place] [address] 19160 Carbon Dioxide Level May 18, 2020 6:17am 25 mmol/l 20-31 [facility], [address] [place] [address] 44321 Carbon Dioxide Level March 25 0 8:11am 21 mmol/l 20-31 [facility], [address] [place] [address] 13090 Carbon Dioxide Level March 11, 2020 12:14pm 20 mmol/l 20-31 [facility], [address] [place] [address] 54570 Carbon Dioxide Level March 02, 2020 11:00am 20 mmol/l 20-31 [facility], [address] [place] [address] 51737 Carbon Dioxide Level February 26, 2020 10:02a m 22 mmol/l 20-31 [facility], [address] [place] [address] 73731 Carbon Dioxide Level February 20, 2020 8:35a m 21 mmol/l 20-31 [facility], [address] [place] [address] 95101 Anion Gap July 01, 2020 9:40pm 13 mmol/l 8-16 [facility], [address] [place] [address] 64506 Anion Gap May 18, 2020 6:17am 9 mmol/l 8-16 [facility], [address] [place] [address] 28074 Anion Gap March 25, 2020 8:11am 9 mmol/l 8-16 [facility], [address] [place] [address] 43762 Anion Gap March 11, 2020 12:14pm 13 mmol/l 8-16 [facility], [address] [place] [address] 01618 Anion Gap March 02, 2020 11:00am 12 mmol/l 8-16 [facility], [address] [place] [address] 42032 Anion Gap February 26, 2020 10:02am 13 mmol/l 8-16 [facility], [address] [place] [address] 83813 Anion Gap February 20, 2020 8:35am 13 mmol/l 8-16 [facility], [address] [place] [address] 14957 Glucose Level July 01, 2020 9:40pm 100 mg/dL 74-106 [facility], [address] [place] [address] 22526 Glucose Level May 18, 2020 6:17am 93 mg/dL 74-106 [facility], [address] [place] [address] 68353 Glucose Level March 25, 2020 8:11am 93 mg/dL 74-106 [facility], [address] [place] [address] 83891 Glucose Level March 11, 2020 12:14pm 88 mg/dL 74-106 [facility], [address] [place] [address] Glucose Level March 02, 2020 11:00am 91 mg/dL 74-106 [facility], [address] [place] [address] 36637 Glucose Level February 26, 2020 10:02am 92 mg/dL 74-106 [facility], [address] [place] [address] 92480 Glucose Level February 20, 2020 8:35am 98 mg/dL 74-106 [facility], [address] [place] [address] 96702 Creatinine July 01, 2020 9:40pm 0.9 mg/dL 0.5-1.1 [facility], [address] [place] [address] Creatinine May 18, 2020 6:17am 0.7 mg/dL 0.5-1.1 [facility], [address] [place] [address] Creatinine March 25, 2020 8:11am 0.9 mg/dL 0.5-1.1 [facility], [address] [place] [address] 57234 Creatinine March 11, 2020 12:14pm 1.2 mg/dL 0.5-1.1 [facility], [address] [place] [address] Creatinine March 02, 2020 11:00am 1.0 mg/dL 0.5-1.1 [facility], [address] [place] [address] 87936 Creatinine February 26, 2020 10:02am 1.0 mg/dL 0.5-1.1 [facility], [address] [place] [address] Creatinine February 20, 2020 8:35am 1.1 mg/dL 0.5-1.1 [facility], [address] [place] [address] 57567 Glomerular Filtration Rate Calc [facility] 2019 9:40pm Greater than 60 ml/min ABOVE 60 [facility], [address] [place] [address] 26887 Glomerular Filtration Rate Calc Sept 2019 6:17am Greater than 60 ml/min ABOVE 60 [facility], [address] [place] [address] 17819 Glomerular Filtration Rate Calc Aug2019 8:11am Greater than 60 ml/min ABOVE 60 [facility], [address] [place] [address] 73474 Glomerular Filtration Rate Calc March 11, 2020 12:14pm 55 ml/min ABOVE 60 [facility], [address] [place] [address] Glomerular Filtration Rate Calc March 02, 2020 11:00am Greater than 60 ml/min ABOVE 60 [facility], [address] [place] [address] 50098 Glomerular Filtration Rate Calc February 26, 2020 10:02am Greater than 60 ml/min ABOVE 60 [facility], [address] [place] [address] 08217 Glomerular Filtration Rate Calc February 20, 2020 8:35am Greater than 60 ml/min ABOVE 60 [facility], [address] [place] [address] 32025 Alanine Aminotransferase (ALT/SGPT) July 01, 2020 9:40pm 43 U/L 10-49 [facility], [address] [place] [address] 38018 Alanine Aminotransferase (ALT/SGPT) May 18, 2020 6:17am 52 U/L 10-49 [facility], [address] [place] [address] 62140 Alanine Aminotransferase (ALT/SGPT) March 25, 2020 8:11am 27 U/L 10-49 [facility], [address] [place] [address] 81000 Alanine Aminotransferase (ALT/SGPT) March 11, 2020 12:14pm 29 U/L 10-49 [facility], [address] [place] [address] 05730 Alanine Aminotransferase (ALT/SGPT) March 02, 2020 11:00am 29 U/L 10-49 [facility], [address] [place] [address] Alanine Aminotransferase (ALT/SGPT) February 26, 2020 10:02am 33 U/L 10-49 [facility], [address] [place] [address] Alanine Aminotransferase (ALT/SGPT) February 20, 2020 8:35am 42 U/L 10-49 [facility], [address] [place] [address] 82805 Aspartate Amino Transf (AST/SGOT) No vember 2019 9:40pm 21 U/L 0-33 [facility], [address] [place] [address] 79452 Aspartate Amino Transf (AST/SGOT) Se ptember 2019 6:17am 27 U/L 0-33 [facility], [address] [place] [address] 99142 Aspartate Amino Transf (AST/SGOT) Au 2019 8:11am 15 U/L 0-33 [facility], [address] [place] [address] 29856 Aspartate Amino Transf (AST/SGOT) Ju ly 2019 12:14pm 17 U/L 0-33 [facility], [address] [place] [address] 92015 Aspartate Amino Transf (AST/SGOT) Ju ly 2019 11:00am 14 U/L 0-33 [facility], [address] [place] [address] 90648 Aspartate Amino Transf (AST/SGOT) Ju ly 2019 10:02am 17 U/L 0-33 [facility], [address] [place] [address] 36534 Aspartate Amino Transf (AST/SGOT) Ju ne 2019 8:35am 23 U/L 0-33 [facility], [address] [place] [address] 67531 Alkaline Phosphatase July 01 020 9:40pm 139 U/L 45-129 [facility], [address] [place] [address] 85068 Alkaline Phosphatase May 18, 2020 6:17am 110 U/L 45-129 [facility], [address] [place] [address] 86320 Alkaline Phosphatase March 25 0 8:11am 122 U/L 45-129 [facility], [address] [place] [address] 88730 Alkaline Phosphatase March 11, 2020 12:14pm 129 U/L 45-129 [facility], [address] [place] [address] Alkaline Phosphatase March 02, 2020 11:00am 136 U/L 45-129 [facility], [address] [place] [address] Alkaline Phosphatase February 26, 2020 10:02a m 147 U/L 45-129 [facility], [address] [place] [address] Alkaline Phosphatase February 20, 2020 8:35a m 149 U/L 45-129 [facility], [address] [place] [address] [id number] Amylase Level May 17, 2020 7:20pm 39 U/L 30-118 [facility], [address] [place] [address] 32113 Amylase Level March 25, 2020 8:11am 35 U/L 30-118 [facility], [address] [place] [address] [id number] Lipase May 17, 2020 7:20pm 89 U/L 73-393 [facility], [address] [place] [address] 31471 Lipase March 25, 2020 8:11am 97 U/L 73-393 [facility], [address] [place] [address] 21122 Lipase March 11, 2020 12:14pm 128 U/L 73-393 [facility], [address] [place] [address] 99879 Calcium Level July 01, 2020 9:40pm 9.2 mg/dL 8.5-10.1 [facility], [address] [place] [address] 02172 Calcium Level May 18, 2020 6:17am 8.5 mg/dL 8.5-10.1 Delta: 9.6 on 05/17/20-2019Repeated by: Roderick Cee 05/18/20 0824.Result Confirmation: 8.3 # mg/dL [facility], [address] [place] [address] 19656 Calcium Level March 25, 2020 8:11am 8.9 mg/dL 8.5-10.1 [facility], [address] [place] [address] 59181 Calcium Level March 11, 2020 12:14pm 8.6 mg/dL 8.5-10.1 [facility], [address] [place] [address] 05096 Calcium Level March 02, 2020 11:00am 9.0 mg/dL 8.5-10.1 [facility], [address] [place] [address] 36362 Calcium Level February 26, 2020 10:02am 9.0 mg/dL 8.5-10.1 [facility], [address] [place] [address] 54964 Calcium Level February 20, 2020 8:35am 9.4 mg/dL 8.5-10.1 [facility], [address] [place] [address] 39485 Total Bilirubin July 01, 2020 9:40pm 0.3 mg/dL 0.3-1.2 [facility], [address] [place] [address] 12782 Total Bilirubin May 18, 2020 6:17a m 0.3 mg/dL 0.3-1.2 [facility], [address] [place] [address] Total Bilirubin March 25, 2020 8:11am 0.2 mg/dL 0.3-1.2 [facility], 08 [place] [address] Total Bilirubin March 11, 2020 12:14pm 0.2 mg/dL 0.3-1.2 [facility], [address] [place], [place] [id number] Total Bilirubin March 02, 2020 11:00am 0.4 mg/dL 0.3-1.2 [facility], [address] [place], [place] [address] Total Bilirubin February 26, 2020 10:02am 0.3 mg/dL 0.3-1.2 [facility], [address] [place] [address] Total Bilirubin February 20, 2020 8:35am 0.3 mg/dL 0.3-1.2 [facility], [address] [place] [address] 82102 Albumin July 01, 2020 9:40pm 3.5 g/dL 3.2-4.8 [facility], [address] [place] [address] 67646 Albumin May 18, 2020 6:17am 3.0 g/dL 3.2-4.8 [facility], [address] [place] [address] 88538 Albumin March 25, 2020 8:11am 3.0 g/dL 3.2-4.8 [facility], [address] [place] [address] 89757 Albumin March 11, 2020 12:14pm 3.2 g/dL 3.2-4.8 [facility], [address] [place] [address] 87631 Albumin March 02, 2020 11:00am 3.1 g/dL 3.2-4.8 [facility], [address] [place] [address] 30107 Albumin February 26, 2020 10:02am 3.4 g/dL 3.2-4.8 [facility], [address] [place] [address] 99437 Albumin February 20, 2020 8:35am 3.5 g/dL 3.2-4.8 [facility], [address] [place] [address] 85406 Serum Total Protein July 01 9:40pm 8.0 g/dL 5.7-8.2 [facility], [address] [place] [address] Serum Total Protein May 18, 2020 6:17am 6.6 g/dL 5.7-8.2 [facility], [address] [place], [place] [address] Serum Total Protein March 25, 2020 8:11a m 7.7 g/dL 5.7-8.2 [facility], [address] [place] [address] Serum Total Protein March 11, 2020 12:14p m 7.6 g/dL 5.7-8.2 [facility], [address] [place], [place] [address] Serum Total Protein March 02, 2020 11:00a m 7.9 g/dL 5.7-8.2 [facility], [address] [place] [address] Serum Total Protein February 26, 2020 10:02am 7.6 g/dL 5.7-8.2 [facility], [address] [place] [address] Serum Total Protein February 20, 2020 8:35am 7.9 g/dL 5.7-8.2 [facility], [address] [place] [address] 59956 Lactic Acid Level July 01, 2020 9:40p m 1.0 mmol/L 0.5-2.2 [facility], [address] [place] [address] 19982 Human Chorionic Gonadotropin, Quant July 01, 2020 10:10am Less than 1 mIU/mL 0-1 0 APPROXIMATE GESTATION AGE APRROX IMATE HCG RANGE 0-1 WEEK 0 - 50 1-2 WEEKS 40 - 300 2-3 WEEKS 100 - 1,000 3-4 WEEKS 500 - 6,000 1-2 MONTHS 5,000 - 200,000 2-3 MONTHS 10,000 - 100,000 2ND TRIMESTER 3,000 - 50,000 3RD TRIMESTER 1,000 - 50,000 [facility], [address] [place] [address] 72759 Thyroid Stimulating Hormone (TSH) Ju ly 2019 10:02am 1.84 uIU/mL 0.35-5.50 [facility], [address] [place] [address] 565[address] Serum Test, Qualitative No vember 2019 9:40pm Negative NEGATIVE [facility], [address] [place] [address] Serum Test, Qualitative Se ptember 2019 7:20pm Negative NEGATIVE [facility], [address] [place] [address] Serum Test, Qualitative Au kem 2019 8:11am Negative NEGATIVE [facility], [address] [place] [address] 30035 Urine HCG, Qualitative March 11 11:00am Negative NEGATIVE [facility], [address] [place] [address] 81342 Urine HCG, Qualitative March 02 11:00am Negative NEGATIVE [facility], [address] [place] [address] Urine HCG, Qualitative February 19 8:32am Negative NEGATIVE [facility], [address] [place] [address] Coronavirus (COVID-19)(PCR) March 252019 2:30pm Not detected Not Detec dee This test was developed and its performa nce characteristicsdetermined by [employer]. This test has not beenFDA cleared or [...] (not detected) result in this assay.Performed at: [facility] [id number] Director: Deisy Hdez MD, Phone: [phone] [facility] , [address] [facility] [id number] Urine Random Creatinine February 27 7:19am 234.0 mg/dL THERE IS NO ESTABLISHED RANGE FOR RANDOM URINE CREATININE [facility], [address] [place] [address] Urine Microalbumin February 28, 2020 7:19am 13.7 mg/L 0.0-29.9 [facility], [address] [place] [address] Urine Microalbumin/Creatinine Ratio February 28, 2020 7:19am 5.8 ug/mg 0.0-30.0 [facility], [address] [place] [address] Hemoglobin A1c February 26, 2020 10:02am 5.3 [...] glucose control. * High risk of developing computer terminal operator complications such asretinopathy, nephropathy, neuropathy, cardiopathy, etc. Some danger of hypoglycemic reaction in Type I diabetics.Some glucose intolerant individuals and "Sub Clinical"diabetics may demonstrate HGBA1C levels in this area. [facility], [address] [place] [address] Estimated Average Glucose (eAG) February 26, 2020 10:02am 105 mg/dl An A1C of 7% - the goal of diabetic therapy - is equivalentto an EAG of 154 mg/dl. [facility], [address] [place] [address] Microbiology Results Procedure Source Result Collection Date/Time Result Date/Time Result Comment Performing Site Urine Culture Urine,voided July 01, 2020 9:30pm June 232019 7:24am [facility], [address] [place] [address] Urine Culture Urine,voided May 18, 2020 1:15am Septembe r 2019 11:25am [facility], [address] [place] [address] Urine Culture Urine,clean catch March 25, 2020 9:05am March 26, 2020 1:36pm [facility], [address] [place] [address] Urine Culture Urine,clean catch March 11, 2020 12:00pm March 12 020 1:24pm [facility], [address] [place] [address]59 Urine Culture Urine,voided March 05, 2020 3:29pm March 06 9:18am [facility], [address] [place] [address] 96706 Urine Culture Urine,voided March 02, 2020 11:48am March 03, 020 8:26am [facility], [address] [place] [address] 48337 Streptococcus Rapid Screen Throat March 13, 2020 10:34am March 14, 2 020 8:58am [facility], [address] [place] [address] 61810 Streptococcus Rapid Screen Throat March 13, 2020 10:34am March 13, 020 11:04am [facility], [address] [place], [place] [address] Blood Culture Venous blood No growth. July 01, 2020 9:40pm June 232019 9:46pm [facility], [address] [place] [address] 41401 SARS-CoV-2 (PCR) Interpretation Naso pharyngeal No Organisms Detected July 01, 2020 9:45pm July 01, 2020 10:29pm [facility], [address] [place] [address] 75707 Gastrointestinal Tract Panel (PCR) Stool C. difficile toxin detected May 17, 2020 3:03pm May 17, 2020 5:25pm [facility], [address] [place], [place] [address] Respiratory Panel (PCR) Nasopharyngeal No Organisms Detected May 18, 2020 1:40am May 18, 2020 2:49am [facility], [address] [place] [address]803 Diagnostic Imaging Reports Report Dictated Date/Time Dictated By Status Radiology Report February 28, 2020 9:48am Oliverio Chen MD completed [place] [address] [place] [address] [phone] NAME SEX PT STATUS ACCOUNT NUMBER ANNA MARIE BELTRAN REG REF [id number] ORDERING PHYSICIAN LOCATION MEDICAL RECORD NO. Jose Kramer DO [id number] ATTENDING PHYSICIAN DATE OF DATE OF EXAM/TIME [...] 0952 Date Time CC: Jose Kramer DO; Olievrio Chen MD Techn: BUSMI Trans Dt/Tm: Trans by: DT Prt Dt/Tm: : Total DLP = 0.00 mGy-cm 0019-4148: Total Radiation Dose = 0.0000 mSv Lifetime Dose: 0 mSv Radiology Report March 02, 2020 1:53pm Warren Bourne MD completed [facility] [address] [place] [address] [phone] NAME SEX PT STATUS ACCOUNT NUMBER ANNA MARIE BELTRAN [facility] ER [id number] ORDERING PHYSICIAN LOCATION MEDICAL RECORD NO. Sameer Islas MD ER [id number] ATTENDING PHYSICIAN DATE OF DATE OF EXAM/TIME [...] Signed By Warren Bourne MD on 03/02/20 135 Date Time CC: Jose Kramer DO; Warren Bourne MD Techn: MORSA Trans Dt/Tm: Trans by: DT Prt Dt/Tm: : Total DLP = 1121.00 mGy-cm : Total Radiation Dose = 16.8150 mSv Lifetime Dose: 16.8150 mS v Radiology Report March 12, 2020 2:59pm Oliverio Chen MD completed [facility] [address] [place] [address] [phone] NAME SEX PT STATUS ACCOUNT NUMBER ANNA MARIE BELTRAN REG REF [id number] ORDERING PHYSICIAN LOCATION MEDICAL RECORD NO. Pola Meadows MD [id number] ATTENDING PHYSICIAN DATE OF DATE OF EXAM/TIME [...] Reported By Oliverio Chen MD on 03/12/20 2534 Signed By Oliverio Chen MD on 03/12/20 1501 Date Time CC: Jose Kramer DO; Oliverio Chen MD Techn: FREST Trans Dt/Tm: Trans by: DT Prt Dt/Tm: : Total DLP = 0.00 mGy-cm : Total Radiation Dose = 0.0000 mSv Lifetime Dose: 16.8150 mSv Radiology Report March 25, 2020 10:18am Oliverio Chen MD completed [place] [address] [place], [place] [address] [phone] NAME SEX PT STATUS ACCOUNT NUMBER ANNA MARIE BELTRAN [facility] [id number] ORDERING PHYSICIAN LOCATION MEDICAL RECORD NO. Hiren Perez MD ER [id number] ATTENDING PHYSICIAN DATE OF DATE OF EXAM/TIME [...] 17 0 9:41pm Ulisses Sethi MD completed [place] [address] [place] [address] [phone] NAME SEX PT STATUS ACCOUNT NUMBER ANNA MARIE BELTRAN [facility] ER [id number] ORDERING PHYSICIAN LOCATION MEDICAL RECORD NO. Mikhail Sheriff MD ER [id number] ATTENDING PHYSICIAN DATE OF DATE OF EXAM/TIME NadiaTrice monahan YELITZA 1995 05/17/202009 TYPE / EXAM CT [...] 2020 10:55p m Telly Robledo MD completed [place] [address] [place] [address] [phone] NAME SEX PT STATUS ACCOUNT NUMBER ANNA MARIE BELTRAN [facility] ER [id number] ORDERING PHYSICIAN LOCATION MEDICAL RECORD NO. Mikhail Sheriff MD ER [id number] ATTENDING PHYSICIAN DATE OF DATE OF EXAM/TIME [...] Trans Dt/Tm: Trans by: DT Prt Dt/Tm: 3869-2289: Total DLP = 0.00 mGy-cm Fluoroscopy Time (in secs): Radiology Report July 01, 2020 11:07p m Niels Wilkerson MD completed [facility] [address] [place] [address] [phone] NAME SEX PT STATUS ACCOUNT NUMBER ANNA MARIE BELTRAN [facility] [id number] ORDERING PHYSICIAN LOCATION MEDICAL RECORD NO. Mikhail Sheriff MD ER [id number] ATTENDING PHYSICIAN DATE OF DATE OF EXAM/TIME [...] Trans Dt/Tm: Trans by: DT Prt Dt/Tm: 3279-3461: Total DLP = 1469.00 mGy-cm 6417-4343: Total Radiation Dose = 22.0350 mSv Lifetime Dose: 56.7900 mS v Health Concerns Health Concerns may be documented in an alternate section. Advance Directives Advance Directive Response Recorded Date/Time Advanced Directive No No 2019 12:04pm MOLST No July 17, 2020 12:04pm Advance Directives on File or in chart? No July 17, 2020 12:04pm Does Patient have a DNR? No July 17, 2020 12:04pm Healthcare Proxy No Prasanth aiken 2019 12:04pm Living Will No July 17, 2020 12:04pm [...] ABDOMINAL PAIN ER Follow-up (Adult) Urinary complaint Reason for Visit Anxiety Depression GERD (gastroesophageal reflux disease) Hepatomegaly HTN (hypertension) Morbid obesity PTSD (post-traumatic stress disorder) Metrorrhagia Anxiety Depression HTN (hypertension) Morbid obesity PTSD (post-traumatic stress disorder) Anxiety Nausea Abdominal pain Abdominal pain Abdominal pain Insomnia Wax in ear Anxiety Depression Morbid obesity Encounters Encounter Location(s) Ar rival/Admit Date Discharge/Depart Date Provider(s) Registered Referred -Laboratory February 20, 2020 8:12am Bianka Sen MD Departed Physician/Provider Office Visit -[facility] February 20, 2020 10:22am February 20, [...] 2020 4:29pm null Departed Physician/Provider Office Visit -[facility] March 11, 2020 9:28am March 11, 2020 10:13am Trice Aj NP Departed Physician/Provider Office Visit -[facility] March 11, 2020 10:17am March 11, 2020 11:49am Pola Meadows MD Registered Referred -Laboratory March 11, 2020 11:56am Trice Aj NP Registered Referred -Ultrasound March 12, 2020 11:38am Pola Meadows MD Departed Physician/Provider Office Visit -[facility] March 12, 2020 12:22pm March 12, 2020 2:13pm Trice Aj NP Departed Emergency -Emergency Room ER March 13, 2020 9:18am March 13, 2020 10:18am null Departed Emergency -Emergency Room ER March 25, 2020 7:55am March 25, 2020 9:27am null Departed Physician/Provider Office Visit -[facility] March 25, 2020 2:51pm March 25, 2020 2:52pm Nathalie Pace Registered Referred -Lab Drop Off March 25, 2020 3:08pm Nathalie Pace Departed Physician/Provider Office Visit -[facility] March 28, 2020 7:01am March 28, 2020 7:47am Trice Aj NP Registered Outpatient -[facility] Internal Medicine April 05, 2020 8:29am Trice Aj NP Registered Referred -Laboratory May 17, 2020 1:48pm Trice longoria NP Discharged Inpatient -[facility] May 18, 2020 12:18am May 18, 2020 2:40pm Tad Menendez MD Registered Outpatient -[facility] May 20, 2020 2:25pm Amara Garcia RN Departed Physician/Provider Office Visit -[facility] May 23, 2020 7:51am May 23, 2020 8:35am Trice Aj NP Departed Physician/Provider Office Visit -[facility] May 30, 2020 9:25am May 30, 2020 11:56am Nicol Sebastian NP Departed Physician/Provider Office Visit -[facility] June 10, 2020 8:26am June 10, 2020 8:58am Jarret Herbert MD Departed Physician/Provider Office Visit -[facility] June 28, 2020 3:47pm June 28, 2020 4:33pm Nicol Sebastian NP Departed Physician/Provider Office Visit -[facility] July 01, 2020 9:04am July 01, 2020 11:04am Nicol Sebastian NP Registered Referred -Laboratory July 01, 2020 9:47am Kiersten Schulz DO Departed Emergency -Emergency Room ER July 01, 2020 8:40pm July 02, 2020 12:20am null Departed Physician/Provider Office Visit -[facility] July 04, 2020 11:14am July 04, 2020 12:47pm Nicol Sebastian NP Departed Physician/Provider Office Visit -[facility] July 25, 2020 9:54am July 25, 2020 10:57am Nicol Sebastian NP Recent Diagnosis Onset Date Anxiety Depression GERD (gastroesophageal reflux disease) Hepatomegaly HTN (hypertension) Morbid obesity PTSD (post-traumatic stress disorder) Metrorrhagia Anxiety Depression HTN (hypertension) Morbid obesity PTSD (post-traumatic stress disorder) Anxiety Nausea Abdominal pain Abdominal pain Abdominal pain Insomnia Wax in ear Anxiety Depression Morbid obesity Assessments Diagnosis Onset Date Res olution Status Anxiety chronic Depression chronic GERD (gastroesophageal reflux disease) chronic Hepatomegaly chronic HTN (hypertension) chronic Morbid obesity chronic PTSD (post-traumatic stress disorder) chronic Metrorrhagia acute Anxiety chronic Depression chronic HTN (hypertension) chronic Morbid obesity chronic PTSD (post-traumatic stress disorder) chronic Anxiety chronic Nausea acute Abdominal pain acute Abdominal pain acute Abdominal pain acute Insomnia acute Wax in ear acute Anxiety chronic Depression chronic Morbid obesity chronic Family History Relationship Condition A ge at Onset Recorded Date/Time Not Specified Cerebrovascular accide nt (CVA) Unknown Not Specified Hernia Unk nown Functional Status Observation Response Neil e Recorded Functional Status Complete [place] May 18, 2020 1:30am Goals Goals may be documented in an alternate section. Immunizations No Immunization Information Available Mental Status Observation Response Neil e Recorded Cognitive Status Normal Cognition May 18, 2020 1:30am Medical Equipment No Medical Equipment Information available Insurance Providers Guarantor ANNA MARIE BELTRAN Address [address] [place] [address] Contact Info. Home Phone: Payer Policy Id Coverage Id Subscriber's Name Subscriber Id Effective Date Expiration Date [facility] [id number] ANNA MARIE BELTRAN [id number] [facility] [id number] ANNA MARIE BELTRAN [id number] [facility] [id number] ANNA MARIE BELTRAN [id number] MEDICAID [id number] ANNA MARIE BELTRAN [id number] Self Pay Self N/A Plan of Treatment Sertaline 100 mg daily and seroquel 50 [...] inside the ear. Follow up with GI DrRui July 26, 2020 for upper GI. [place] foods rice, applesauce, bananas, and toast. Resolved. [...] exercise. Continue to follow up with GI Dr. Omeprazole 20 mg bid. Patient is somewhat [...] at this time, d/t recent move to [place]. Will continue current meds and will refer to psych. Couture Dressmaker appt with behavioral health this week. Taking [...] palpation without abnormal physical find ings. 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 [...] with PO vancomycin Trice dimas NP Email: [email or web address] Work Phone: [facility] [address] [facility] [address] Call for an appointment to be seen in the next 48 hours Jose Kramer DO Email: [email or web address] Phone: [phone] [facility] [address] Call for an appointment for follow-up for Wednesday or Wednesday Jose Kramer DO Email: [email or web address] Phone: [phone] [facility] [address] F33.9 - Major depressive disorder, recur rent, unspecified,F41.9 - Anxiety disorder, unspecified March 12, 2020 [facility] [address] [address] H92.03 - Otalgia, bilateral,G89.29 - Other chronic pain March 11, 2020 [facility] [address] [facility] [address] E66.01 - Morbid (severe) obesity due to excess calories,I10 - Essential (primary) hypertension January 27, 2020 dietitian F32.9 - Major depressive disorder, singl e episode, unspecified,F41.9 - Anxiety disorder, unspecified,F43.10 - Post-traumatic stress disorder, unspecified January 27, 2020 health mental Future Procedures Future procedure information is unavailable [...] Status Status Date of Observation Never smoker July 17, 2020 12: 04pm Observation Status Observation Response Neil e of Response Smoking Status Never smoker July 17, 2020 12:04pm Assigned Sex Female Vital Signs Vital Reading [...] 04, 2020 11:19am Respiratory rate 18 /min 12-July 04, 2020 11:19am Oxygen saturation by Pulse [...]
--- OUTSIDE RECORDS SUMMARY | 2020-10-18 09:54 | CCD | Continuity of Care Document ---
Author Author [facility] Organization [facility] Address [address] [place] [address] Phone Support Name Relationship Address Phone Jose Kramer PRS [address] [place] [address] Rachel Senn Bianka PRS [address] [place] [address] John Islas PRS [address] [place] [address] [place] [address] Pola Meadows [place] [address] Pola Meadows PRS [address] [place] [address] Hiren Perez PRS [address] [place] [address] Nathalie Pace PRS [address] [place] [address] Verónica Sheriff PRS [address] [place] [address] Tad Menendez PRS [address] [place] [address] Amara Garcia PRS Unknown Unavailable Nicol Sebastian PRS [address] [place] [address] Darnell Herbert PRS [address] [place] [address] Kiersten Schulz PRS [address] [place] [address] [place] [address] Daljit Alex PRS [address] [place] [address] Allergies, Adverse Reactions, Alerts Allergen Type Severity Reaction Last Updated Verified Status cephalexin Allergy Moder ate Hives July 25, 2020 10:31am Yes Active latex Allergy Moderate Rash July 25, 2020 10:31am Yes Active ondansetron Allergy Mode rate Hives July 25, 2020 10:31am Yes Active sulfamethoxazole Allergy Moderate Hives July 25, 2020 10:31am Yes Active trimethoprim Allergy Mod erate Hives July 25, 2020 10:31am Yes Active Medications Medication [...] At Bedtime July 04, 2020 11:45am Sertraline Discontinued 100 MG PO At Bedtime [...] PO At Bedtime July 31, 2020 9:19am Problems Active Problems Medical Problem Onset Date [...] Procedures Procedure Date Performed Status US OB Transvaginal August 03 6:58pm completed US Abd single organ/quadrant Decembe r 2019 7:26pm completed US OB Ultrasound <14 weeks August 03, 2020 6:59pm active Urine Culture August 03, 2020 active July 30, [address] Abd/pel w/ contrast July 01, 2020 9:16pm completed Xray Chest One View July 01 9:19pm completed Blood Culture July 01, 2020 completed Urine Culture July 01, 2020 completed SARS-CoV-2 (PCR) Interpretation [facility] [address] Abd/pel w/ contrast April [...] Comment Performing Site White Blood Count August 03 0 2:35pm 8.6 10e3/uL 4.45-10.71 [facility], [address] [place] [address] White Blood Count July 01, 2020 9:40p m 11.2 10e3/uL 4.45-10.71 [facility], [address] [place] [address] White Blood Count May 18 6:17am 9.3 10e3/uL 4.45-10.71 [facility], [address] [place] [address] [id number] White Blood Count March 25, 2020 8:11am 10.8 10e3/uL 4.45-10.71 [facility], [address] [place] [address] 11166 White Blood Count March 11, 2020 12:14pm 11.3 10e3/uL 4.45-10.71 [facility], [address] [place] [address] White Blood Count March 02, 2020 11:00am 10.3 10e3/uL 4.45-10.71 [facility], [address] [place] [address] White Blood Count February 26, 2020 10:02am 9.8 10e3/uL 4.45-10.71 [facility], [address] [place] [address] White Blood Count February 20, 2020 8:35am 8.8 10e3/uL 4.45-10.71 [facility], [address] [place] [address] Red Blood Count August 03, 2020 2:35pm 4.47 10e6/uL 4.20-5.40 [facility], [address] [place] [address] Red Blood Count July 01, 2020 9:40pm 4.51 10e6/uL 4.20-5.40 [facility], [address] [place] [address] Red Blood Count May 18, 2020 6:17a m 4.10 10e6/uL 4.20-5.40 [facility], [address] [place] [address] Red Blood Count March 25, 2020 8:11am 4.25 10e6/uL 4.20-5.40 [facility], [address] [place] [address] Red Blood Count March 11, 2020 12:14pm 4.58 10e6/uL 4.20-5.40 [facility], [address] [place] [address] Red Blood Count March 02, 2020 11:00am 4.52 10e6/uL 4.20-5.40 [facility], [address] [place] [address] Red Blood Count February 26, 2020 10:02am 4.84 10e6/uL 4.20-5.40 [facility], [address] [place] [address] Red Blood Count February 20, 2020 8:35am 5.02 10e6/uL 4.20-5.40 [facility], [address] [place] [address] Hemoglobin August 03, 2020 2:35pm 11.5 g/dL 10.7-15.4 [facility], [address] [place] [address] Hemoglobin July 01, 2020 9:40pm 11.8 g/dL 10.7-15.4 [facility], [address] [place] [address] Hemoglobin May 18, 2020 6:17am 10.9 g/dL 10.7-15.4 [facility], [address] [place] [address] Hemoglobin March 25, 2020 8:11am 11.5 g/dL 10.7-15.4 [facility], [address] [place] [address] Hemoglobin March 11, 2020 12:14pm 12.4 g/dL 10.7-15.4 [facility], [address] [place] [address] Hemoglobin March 02, 2020 11:00am 12.1 g/dL 10.7-15.4 [facility], [address] [place] [address] Hemoglobin February 26, 2020 10:02am 13.0 g/dL 10.7-15.4 [facility], [address] [place] [address] Hemoglobin February 20, 2020 8:35am 13.4 g/dL 10.7-15.4 [facility], [address] [place] [address] Hematocrit August 03, 2020 2:35pm 36.1 % 37-47 [facility], [address] [place] [address] 43226 Hematocrit July 01, 2020 9:40pm 36.6 % 37-47 [facility], [address] [place] [address] 15608 Hematocrit May 18, 2020 6:17am 34.1 % [address] [facility], [address] [place] [address] 43985 Hematocrit March 25, 2020 8:11am 34.7 % [address] [facility], [address] [place] [address] 18357 Hematocrit March 11, 2020 12:14pm 37.2 % 3747 [facility], [address] [place] [address] 93128 Hematocrit March 02, 2020 11:00am 36.9 % [address] [facility], [address] [place] [address] 66180 Hematocrit February 26, 2020 10:02am 39.4 % [address] [facility], [address] [place] [address] 98875 Hematocrit February 20, 2020 8:35am 41.0 % [address] [place] [address] LABORATORY, [address] [place] [address] 67373 Mean Corpuscular Volume July 2:35pm 80.8 fl 80-96 [facility], [address] [place] [address] 21686 Mean Corpuscular Volume June 9:40pm 81.2 fl 80-96 [facility], [address] [place] [address] 39843 Mean Corpuscular Volume May 182019 6:17am 83.2 fl 80-[address] [place] [address] LABORATORY, [address] [place] [address] 29774 Mean Corpuscular Volume March 25, 2020 8:11am 81.6 fl 80-96 [facility], [address] [place] [address] 03260 Mean Corpuscular Volume March 11 020 12:14pm 81.2 fl 80-96 [facility], [address] [place] [address] 44768 Mean Corpuscular Volume March 02, 020 11:00am 81.6 fl 80-96 [facility], [address] [place] [address] 88677 Mean Corpuscular Volume February 25 10:02am 81.4 fl 80-96 [facility], [address] [place] [address] 91510 Mean Corpuscular Volume February 19, 020 8:35am 81.7 fl 80-96 [facility], [address] [place] [address] 34009 Mean Corpuscular Hemoglobin August 03, 2020 2:35pm 25.7 pg 27-31 [facility], [address] [place] [address] 31747 Mean Corpuscular Hemoglobin July 01, 2020 9:40pm 26.2 pg 27-31 [facility], [address] [place] [address] 49411 Mean Corpuscular Hemoglobin 2019 6:17am 26.6 pg 27-31 [facility], [address] [place] [address] 21997 Mean Corpuscular Hemoglobin March 252019 8:11am 27.1 pg 27-31 [facility], [address] [place] [address] 18959 Mean Corpuscular Hemoglobin February 12:14pm 27.1 pg 27-31 [facility], [address] [place] [address] 76463 Mean Corpuscular Hemoglobin February 11:00am 26.8 pg 27-31 [facility], [address] [place] [address] 38732 Mean Corpuscular Hemoglobin February 10:02am 26.9 pg 27-31 [facility], [address] [place] [address] 65661 Mean Corpuscular Hemoglobin January 8:35am 26.7 pg 27-31 [facility], [address] [place] [address] 89170 Mean Corpuscular Hemoglobin Concent August 03, 2020 2:35pm 31.9 g/dl 37 [facility], [address] [place] [address] 01078 Mean Corpuscular Hemoglobin Concent July 01, 2020 9:40pm 32.2 g/dl 37 [facility], [address] [place] [address] 70560 Mean Corpuscular Hemoglobin Concent May 18, 2020 6:17am 32.0 g/dl 37 [facility], [address] [place] [address] 92729 Mean Corpuscular Hemoglobin Concent March 25, 2020 8:11am 33.1 g/dl 3337 [facility], [address] [place] [address] 46730 Mean Corpuscular Hemoglobin Concent March 11, 2020 12:14pm 33.3 g/dl [address] [facility], [address] [place] [address] Mean Corpuscular Hemoglobin Concent March 02, 2020 11:00am 32.8 g/dl [address] [facility], [address] [place] [address] Mean Corpuscular Hemoglobin Concent February 26, 2020 10:02am 33.0 g/dl [address] [facility], [address] [place] [address] Mean Corpuscular Hemoglobin Concent February 20, 2020 8:35am 32.7 g/dl [address] [facility], [address] [place] [address] Red Cell Distribution Width August 03, 2020 2:35pm 14 % 11-15 [facility], [address] [place] [address] Red Cell Distribution Width July 01, 2020 9:40pm 14 % 11-15 [facility], [address] [place] [address] 28506 Red Cell Distribution Width 2019 6:17am 14 % 11-15 [facility], [address] [place] [address] Red Cell Distribution Width March 252019 8:11am 15 % 11-15 [facility], [address] [place] [address] Red Cell Distribution Width February 12:14pm 15 % 11-15 [facility], [address] [place] [address] Red Cell Distribution Width February 11:00am 14 % 11-15 [facility], [address] [place] [address] Red Cell Distribution Width February 10:02am 14 % 11-15 [facility], [address] [place] [address] Red Cell Distribution Width January 8:35am 15 % 11-15 [facility], [address] [place] [address] 40597 Platelet Count August 03, 2020 2:35pm 372 10e3/ul 130-472 [facility], [address] [place] [address] Platelet Count July 01, 2020 9:40pm 392 10e3/ul 130-472 [facility], [address] [place] [address] Platelet Count May 18, 2020 6:17am 332 10e3/ul 130-472 [facility], [address] [place] [address] Platelet Count March 25, 2020 8:11am 395 10e3/ul 130-472 [facility], [address] [place] [address] Platelet Count March 11, 2020 12:14pm 460 10e3/ul 130-472 [facility], [address] [place] [address] Platelet Count March 02, 2020 11:00am 410 10e3/ul 130-472 [facility], [address] [place] [address] Platelet Count February 26, 2020 10:02am 436 10e3/ul 130-472 [facility], [address] [place] [address] Platelet Count February 20, 2020 8:35am 479 10e3/ul 130-472 [facility], [address] [place] [address] Mean Platelet Volume August 03, 2020 2:35pm 9.0 fl 9.1-13.1 [facility], [address] [place] [address] Mean Platelet Volume July 01 020 9:40pm 8.6 fl 9.1-13.1 [facility], [address] [place] [address] Mean Platelet Volume May 18, 2020 6:17am 8.6 fl 9.1-13.1 [facility], [address] [place] [address] Mean Platelet Volume March 25 0 8:11am 8.3 fl 9.1-13.1 [facility], [address] [place] [address] Mean Platelet Volume March 11, 2020 12:14pm 8.4 fl 9.1-13.1 [facility], [address] [place] [address] Mean Platelet Volume March 02, 2020 11:00am 8.6 fl 9.1-13.1 [facility], [address] [place] [address] Mean Platelet Volume February 26, 2020 10:02a m 8.7 fl 9.1-13.1 [facility], [address] [place] [address] Mean Platelet Volume February 20, 2020 8:35a m 8.7 fl 9.1-13.1 [facility], [address] [place] [address] Neutrophils (%) (Auto) July 2:35pm 68.8 % [address] [place] [address] LABORATORY, [address] [place] [address] 27652 Neutrophils (%) (Auto) July 01, 2020 9:40pm 66.3 % [address] [place] [address] LABORATORY, [address] [place] [address] 78482 Neutrophils (%) (Auto) April 6:17am 66.1 % [address] [place] [address] LABORATORY, [address] [place] [address] 25723 Neutrophils (%) (Auto) March 25 020 8:11am 58.4 % [address] [place] [address] LABORATORY, [address] [place] [address] 95003 Neutrophils (%) (Auto) March 11 12:14pm 72.2 % [address] [place] [address] LABORATORY, [address] [place] [address] 10019 Neutrophils (%) (Auto) March 02 11:00am 65.4 % [address] [place] [address] LABORATORY, [address] [place] [address] 73223 Neutrophils (%) (Auto) February 25 0 10:02am 62.6 % [address] [place] [address] LABORATORY, [address] [place] [address] 95436 Neutrophils (%) (Auto) February 19 8:35am 62.4 % [address] [place] [address] LABORATORY, [address] [place] [address] 16010 Absolute Neutrophil August 03 2:35pm 5.9 # 1.7-7.6 [facility], [address] [place] [address] 36244 Absolute Neutrophil July 01 9:40pm 7.5 # 1.7-7.6 [facility], [address] [place] [address] 72219 Absolute Neutrophil May 18, 2020 6:17am 6.1 # 1.7-7.6 [facility], [address] [place] [address] 97124 Absolute Neutrophil March 25, 2020 8:11a m 6.3 # 1.7-7.6 [facility], [address] [place] [address] 25115 Absolute Neutrophil March 11, 2020 12:14p m 8.1 # 1.7-7.6 [facility], [address] [place] [address] 15185 Absolute Neutrophil March 02, 2020 11:00a m 6.7 # 1.7-7.6 [facility], [address] [place] [address] 41254 Absolute Neutrophil February 26, 2020 10:02am 6.1 # 1.7-7.6 [facility], [address] [place] [address] 99126 Absolute Neutrophil February 20, 2020 8:35am 5.5 # 1.7-7.6 [facility], [address] [place] [address] 88152 Lymphocytes (%) (Auto) July 2:35pm 20.2 % 1446 [facility], [address] [place] [address] 89676 Lymphocytes (%) (Auto) July 01, 2020 9:40pm 21.4 % 1446 [facility], [address] [place] [address] 89776 Lymphocytes (%) (Auto) April 6:17am 22.8 % [address] [facility], [address] [place] [address] 03974 Lymphocytes (%) (Auto) March 25 020 8:11am 30.4 % [address] [facility], [address] [place] [address] 39572 Lymphocytes (%) (Auto) March 11 12:14pm 19.0 % [address] [facility], [address] [place] [address] 79286 Lymphocytes (%) (Auto) March 02 11:00am 23.6 % [address] [facility], [address] [place] [address] 45396 Lymphocytes (%) (Auto) February 25 0 10:02am 25.4 % [address] [facility], [address] [place] [address] 11282 Lymphocytes (%) (Auto) February 19 8:35am 26.5 % [address] [facility], [address] [place] [address] 54191 Lymphocytes # (Auto) August 03, 2020 2:35pm 1.7 # 0.6-4.6 [facility], [address] [place] [address] 66160 Lymphocytes # (Auto) July 01, 020 9:40pm 2.4 # 0.6-4.6 [facility], [address] [place] [address] 48694 Lymphocytes # (Auto) May 18, 2020 6:17am 2.1 # 0.6-4.6 [facility], [address] [place] [address] 33755 Lymphocytes # (Auto) March 25 0 8:11am 3.3 # 0.6-4.6 [facility], [address] [place] [address] 28365 Lymphocytes # (Auto) March 11, 2020 12:14pm 2.1 # 0.6-4.6 [facility], [address] [place] [address] 54684 Lymphocytes # (Auto) March 02, 2020 11:00am 2.4 # 0.6-4.6 [facility], [address] [place] [address] 95463 Lymphocytes # (Auto) February 26, 2020 10:02a m 2.5 # 0.6-4.6 [facility], [address] [place] [address] 48151 Lymphocytes # (Auto) February 20, 2020 8:35a m 2.3 # 0.6-4.6 [facility], [address] [place] [address] 70477 Monocytes (%) (Auto) August 03, 2020 2:35pm 8.3 % 4-12 [facility], [address] [place] [address] 18093 Monocytes (%) (Auto) July 01 020 9:40pm 8.9 % 4-12 [facility], [address] [place] [address] 87289 Monocytes (%) (Auto) May 18, 2020 6:17am 8.7 % 4-12 [facility], [address] [place] [address] 78617 Monocytes (%) (Auto) March 25 0 8:11am 7.7 % 4-12 [facility], [address] [place] [address] 02651 Monocytes (%) (Auto) March 11, 2020 12:14pm 5.5 % 4-12 [facility], [address] [place] [address] 56467 Monocytes (%) (Auto) March 02, 2020 11:00am 7.8 % 4-12 [facility], [address] [place] [address] 44433 Monocytes (%) (Auto) February 26, 2020 10:02a m 8.2 % 4-12 [facility], [address] [place] [address] 79915 Monocytes (%) (Auto) February 20, 2020 8:35a m 8.0 % 4-12 [facility], [address] [place] [address] 82980 Monocytes # August 03, 2020 2:35pm 0.7 # 0.2-1.2 [facility], [address] [place] [address] 16801 Monocytes # July 01, 2020 9:40pm 1.0 # 0.2-1.2 [facility], [address] [place] [address] 42334 Monocytes # May 18, 2020 6:17am 0.8 # 0.2-1.2 [facility], [address] [place] [address] 16734 Monocytes # March 25, 2020 8:11am 0.8 # 0.2-1.2 [facility], [address] [place] [address] 42980 Monocytes # March 11, 2020 12:14pm 0.6 # 0.2-1.2 [facility], [address] [place] [address] 95543 Monocytes # March 02, 2020 11:00am 0.8 # 0.2-1.2 [facility], [address] [place] [address] 02649 Monocytes # February 26, 2020 10:02am 0.8 # 0.2-1.2 [facility], [address] [place] [address] 84309 Monocytes # February 20, 2020 8:35am 0.7 # 0.2-1.2 [facility], [address] [place] [address] 15561 Eosinophils (%) (Auto) July 2:35pm 2.2 % 0-7 [facility], [address] [place] [address] 53941 Eosinophils (%) (Auto) July 01, 2020 9:40pm 2.7 % 0-7 [facility], [address] [place] [address] 66826 Eosinophils (%) (Auto) April 6:17am 1.9 % 0-7 [facility], [address] [place] [address] 21919 Eosinophils (%) (Auto) March 25 8:11am 2.7 % 0-7 [facility], [address] [place] [address] 06014 Eosinophils (%) (Auto) March 11 12:14pm 2.5 % 0-7 [facility], [address] [place] [address] 06397 Eosinophils (%) (Auto) March 02 11:00am 2.4 % 0-7 [facility], [address] [place] [address] 19076 Eosinophils (%) (Auto) February 25 0 10:02am 3.1 % 0-7 [facility], [address] [place] [address] 81428 Eosinophils (%) (Auto) February 19 8:35am 2.6 % 0-7 [facility], [address] [place] [address] 44932 Absolute Eosinophils (CBC) August 03, 2020 2:35pm 0.2 # 0.0-0.5 [facility], [address] [place] [address] Absolute Eosinophils (CBC) July 01, 2020 9:40pm 0.3 # 0.0-0.5 [facility], [address] [place] [address] 07156 Absolute Eosinophils (CBC) May 18, 2020 6:17am 0.2 # 0.0-0.5 [facility], [address] [place] [address] Absolute Eosinophils (CBC) March 8:11am 0.3 # 0.0-0.5 [facility], [address] [place] [address] Absolute Eosinophils (CBC) February 12:14pm 0.3 # 0.0-0.5 [facility], [address] [place] [id number] Absolute Eosinophils (CBC) February 11:00am 0.3 # 0.0-0.5 [facility], [address] [place] [id number] Absolute Eosinophils (CBC) February 26, 2020 10:02am 0.3 # 0.0-0.5 [facility], [address] [place] [address] Absolute Eosinophils (CBC) January 8:35am 0.2 # 0.0-0.5 [facility], [address] [place] [id number] Basophils (%) (Auto) August 03, 2020 2:35pm 0.3 % 0.4-1.3 [facility], [address] [place] [address] [id number] Basophils (%) (Auto) July 01 9:40pm 0.4 % 0.4-1.3 [facility], [address] [place] [address] [id number] Basophils (%) (Auto) May 18, 2020 6:17am 0.3 % 0.4-1.3 [facility], [address] [place] [address] [id number] Basophils (%) (Auto) March 25 0 8:11am 0.5 % 0.4-1.3 [facility], [address] [place] [address] [id number] Basophils (%) (Auto) March 11, 2020 12:14pm 0.4 % 0.4-1.3 [facility], [address] [place] [address] [id number] Basophils (%) (Auto) March 02, 2020 11:00am 0.5 % 0.4-1.3 [facility], [address] [place] [address] [id number] Basophils (%) (Auto) February 26, 2020 10:02a m 0.4 % 0.4-1.3 [facility], [address] [place] [address] [id number] Basophils (%) (Auto) February 20, 2020 8:35a m 0.3 % 0.4-1.3 [facility], [address] [place] [address] [id number] Absolute Basophils (CBC) August 032019 2:35pm 0.0 # 0.0-0.2 [facility], [address] [place] [address] [id number] Absolute Basophils (CBC) June 9:40pm 0.0 # 0.0-0.2 [facility], [address] [place] [address] [id number] Absolute Basophils (CBC) April 242019 6:17am 0.0 # 0.0-0.2 [facility], [address] [place] [address] 08698 Absolute Basophils (CBC) March 25, 2020 8:11am 0.1 # 0.0-0.2 [facility], [address] [place] [address] 46309 Absolute Basophils (CBC) March 11, 2020 12:14pm 0.0 # 0.0-0.2 [facility], [address] [place] [address] 99208 Absolute Basophils (CBC) March 02, 2020 11:00am 0.1 # 0.0-0.2 [facility], [address] [place] [address] 73383 Absolute Basophils (CBC) February 25 10:02am 0.0 # 0.0-0.2 [facility], [address] [place] [address] 65409 Absolute Basophils (CBC) February 20, 2020 8:35am 0.0 # 0.0-0.2 [facility], [address] [place] [address] [id number] Immature Granulocyte % (Auto) Dece2019 2:35pm 0.2 % 0-2 [facility], [address] [place] [address] 46375 Immature Granulocyte % (Auto) Novem2019 9:40pm 0.3 % 0-2 [facility], [address] [place] [address] 98922 Immature Granulocyte % (Auto) 2019 6:17am 0.2 % 0-2 [facility], [address] [place] [address] 87206 Immature Granulocyte % (Auto) March 25, 2020 8:11am 0.3 % 0-2 [facility], [address] [place] [address] 53937 Immature Granulocyte % (Auto) February 212019 12:14pm 0.4 % 0-2 [facility], [address] [place] [address] 01652 Immature Granulocyte % (Auto) February 202019 11:00am 0.3 % 0-2 [facility], [address] [place] [address] 28579 Immature Granulocyte % (Auto) February 252019 10:02am 0.3 % 0-2 [facility], [address] [place] [address] 08592 Immature Granulocyte % (Auto) January 232019 8:35am 0.2 % 0-2 [facility], [address] [place] [address] 41840 Absolute Immature Granulocyte (auto August 03, 2020 2:35pm 0.0 # 0-0.1 [facility], [address] [place] [address] 67465 Absolute Immature Granulocyte (auto July 01, 2020 9:40pm 0.0 # 0-0.1 [facility], [address] [place] [address] 74515 Absolute Immature Granulocyte (auto May 18, 2020 6:17am 0.0 # 0-0.1 [facility], [address] [place] [address] Absolute Immature Granulocyte (auto March 25, 2020 8:11am 0.0 # 0-0.1 [facility], [address] [place] [address] Absolute Immature Granulocyte (auto March 11, 2020 12:14pm 0.0 # 0-0.1 [facility], [address] [place] [address] Absolute Immature Granulocyte (auto March 02, 2020 11:00am 0.0 # 0-0.1 [facility], [address] [place] [address] Absolute Immature Granulocyte (auto February 26, 2020 10:02am 0.0 # 0-0.1 [facility], [address] [place] [address] Absolute Immature Granulocyte (auto February 20, 2020 8:35am 0.0 # 0-0.1 [facility], [address] [place] [address] 87329 Add Manual Differential July 2:35pm No [facility], [address] [place] [address] 00832 Add Manual Differential June 9:40pm No [facility], [address] [place] [address] 26089 Add Manual Differential May 182019 6:17am No [facility], [address] [place] [address] [id number] Add Manual Differential March 25, 2020 8:11am No [facility], [address] [place] [address] 11996 Add Manual Differential March 11 12:14pm No [facility], [address] [place] [address] Add Manual Differential March 02 020 11:00am No [facility], [address] [place] [address] 12424 Add Manual Differential February 25 10:02am No [facility], [address] [place] [address] 75505 Add Manual Differential February 19 020 8:35am No [facility], [address] [place] [address] Differential Total Cells Counted Apr 7:20pm 100 [facility], [address] [place] [address] 97379 Neutrophils (Manual) May 17, 2020 7:20pm 77 % 41-77 [facility], [address] [place] [address] 79840 Band Neutrophils May 17 0 7:20pm 3 % 0-5 [facility], [address] [place] [address] 78921 Lymphocytes (Manual) May 17, 2020 7:20pm 17 % 14-46 [facility], [address] [place] [address] 64435 Monocytes (Manual) May 17 020 7:20pm 3 % 4-12 [facility], [address] [place] [address] 48866 Platelet Estimate May 17 7:20pm Appears normal NORMAL [facility], [address] [place] [address] [id number] RBC Morphology 2 May 17 0 7:20pm Appears normal NORMAL [facility], [address] [place] [address] [id number] Urine Color May 18, 2020 12:15am Yellow [facility], [address] [place] [address] 69056 Urine Color February 20, 2020 8:40am Yellow [facility], [address] [place] [address] 28843 Urine Color August 03, 2020 2:50pm Yellow [facility], [address] [place] [address] 87994 Urine Color July 01, 2020 9:30pm Yellow [facility], [address] [place] [address] 68547 Urine Color March 25, 2020 8:05am Yellow [facility], [address] [place] [address] 15146 Urine Color March 11, 2020 11:00am Yellow [facility], [address] [place] [address] 15342 Urine Color March 05, 2020 2:29pm Yellow [facility], [address] [place] [address] 69949 Urine Color March 02, 2020 10:48am Yellow [facility], [address] [place] [address] 46511 Urine Appearance August 03, 2020 2:50p m Clear CLEAR [facility], [address] [place] [address] 40479 Urine Appearance July 01, 2020 9:30pm Cloudy CLEAR [facility], [address] [place] [address] 65229 Urine Appearance May 18 0 12:15am Clear CLEAR [facility], [address] [place] [address] 84319 Urine Appearance March 25, 2020 8:05am Cloudy CLEAR [facility], [address] [place] [address] [id number] Urine Appearance March 11, 2020 11:00am Cloudy CLEAR [facility], [address] [place] [address] [id number] Urine Appearance March 05, 2020 2:29pm Cloudy CLEAR [facility], [address] [place] [address] 61424 Urine Appearance March 02, 2020 10:48am Cloudy CLEAR [facility], [address] [place] [address] 45174 Urine Appearance February 20, 2020 8:40am Turbid CLEAR [facility], [address] [place] [address] [id number] Urine pH August 03, 2020 2:50pm 7.5 [facility], [address] [place] [address] 73567 Urine pH July 01, 2020 9:30pm 6.0 [facility], [address] [place] [address] 67105 Urine pH May 18, 2020 12:15am 6.0 [facility], [address] [place] [address] 53203 Urine pH March 25, 2020 8:05am 5.5 [facility], [address] [place] [address] 78579 Urine pH March 11, 2020 11:00am 6.5 [facility], [address] [place] [address] 53576 Urine pH March 05, 2020 2:29pm 6.0 [facility], [address] [place] [address] 79956 Urine pH March 02, 2020 10:48am 5.5 [facility], [address] [place] [address] 90087 Urine pH February 20, 2020 8:40am 5.5 [facility], [address] [place] [address] 94781 Urine Specific [place] July 2:50pm 1.020 [facility], [address] [place] [address] Urine Specific [place] July 01, 2020 9:30pm 1.026 [facility], [address] [place] [address] 24948 Urine Specific [place] April 12:15am >1.045 [facility], [address] [place] [address] 64464 Urine Specific [place] March 25 8:05am 1.025 [facility], [address] [place] [address] 41347 Urine Specific [place] March 11 11:00am 1.025 [facility], [address] [place] [address] 66443 Urine Specific [place] March 05 2:29pm 1.021 [facility], [address] [place] [address] 98592 Urine Specific [place] March 02 10:48am 1.025 [facility], [address] [place] [address] 82552 Urine Specific [place] February 19 8:40am 1.023 [facility], [address] [place] [address] Urine Leukocyte Esterase April 242019 12:15am Negative NEGATIVE [facility], [address] [place] [address] Urine Leukocyte Esterase February 20, 2020 8:40am Moderate NEGATIVE [facility], [address] [place] [address] Urine Leukocyte Esterase August 032019 2:50pm Small NEGATIVE A Culture has been added to this specimen per established criteria [facility], [address] [place] [address] Urine Leukocyte Esterase June 9:30pm Small NEGATIVE A Culture has been added to this specimen per established criteria [facility], [address] [place] [address] Urine Leukocyte Esterase March 25, 2020 8:05am Trace NEGATIVE A Culture has been added to this specimen per established criteria [facility], [address] [place] [address] Urine Leukocyte Esterase March 11, 2020 11:00am Trace NEGATIVE A Culture has been added to this specimen per established criteria [facility], [address] [place] [address] Urine Leukocyte Esterase March 05, 2020 2:29pm Trace NEGATIVE A Culture has been added to this specimen per established criteria [facility], [address] [place] [address] Urine Leukocyte Esterase March 02, 2020 10:48am Trace NEGATIVE A Culture has been added to this specimen per established criteria [facility], [address] [place] [address] Urine Nitrite May 18, 2020 12:15am Negative NEGATIVE [facility], [address] [place] [address] Urine Nitrite February 20, 2020 8:40am Negative NEGATIVE [facility], [address] [place] [address] Urine Nitrate August 03, 2020 2:50pm Negative NEGATIVE [facility], [address] [place] [address] Urine Nitrate July 01, 2020 9:30pm Negative NEGATIVE [facility], [address] [place] [address] Urine Nitrate March 25, 2020 8:05am Negative NEGATIVE [facility], [address] [place] [address] Urine Nitrate March 11, 2020 11:00am Negative NEGATIVE [facility], [address] [place] [address] 86494 Urine Nitrate March 05, 2020 2:29pm Negative NEGATIVE [facility], [address] [place] [address] 27645 Urine Nitrate March 02, 2020 10:48am Negative NEGATIVE [facility], [address] [place] [address] 02439 Urine Protein August 03, 2020 2:50pm Negative NEGATIVE [facility], [address] [place] [address] 98454 Urine Protein July 01, 2020 9:30pm Trace NEGATIVE [facility], [address] [place] [address] 30362 Urine Protein May 18, 2020 12:15am Negative NEGATIVE [facility], [address] [place] [address] 55600 Urine Protein March 25, 2020 8:05am Negative NEGATIVE [facility], [address] [place] [address] 97495 Urine Protein March 11, 2020 11:00am Trace NEGATIVE [facility], [address] [place] [address] 42021 Urine Protein March 05, 2020 2:29pm Trace NEGATIVE [facility], [address] [place] [address] 13607 Urine Protein March 02, 2020 10:48am Negative NEGATIVE [facility], [address] [place] [address] 90117 Urine Protein February 20, 2020 8:40am 30 mg/dl NEGATIVE [facility], [address] [place] [address] 88182 Urine Glucose August 03, 2020 2:50pm Negative NEGATIVE [facility], [address] [place] [address] 76256 Urine Glucose July 01, 2020 9:30pm Negative NEGATIVE [facility], [address] [place] [address] 35906 Urine Glucose May 18, 2020 12:15am Negative NEGATIVE [facility], [address] [place] [address] 91185 Urine Glucose March 25, 2020 8:05am Negative NEGATIVE [facility], [address] [place] [address] 59973 Urine Glucose March 11, 2020 11:00am Negative NEGATIVE [facility], [address] [place] [address] 24660 Urine Glucose March 05, 2020 2:29pm Negative NEGATIVE [facility], [address] [place] [address] 95777 Urine Glucose March 02, 2020 10:48am Negative NEGATIVE [facility], [address] [place] [address] 85605 Urine Glucose February 20, 2020 8:40am Negative NEGATIVE [facility], [address] [place] [address] 34975 Urine Ketones August 03, 2020 2:50pm Negative NEGATIVE [facility], [address] [place] [address] 89806 Urine Ketones July 01, 2020 9:30pm Trace NEGATIVE [facility], [address] [place] [address] 32191 Urine Ketones May 18, 2020 12:15am Negative NEGATIVE [facility], [address] [place] [address] 62962 Urine Ketones March 25, 2020 8:05am Trace NEGATIVE [facility], [address] [place] [address] 29996 Urine Ketones March 11, 2020 11:00am Trace NEGATIVE [facility], [address] [place] [address] 94499 Urine Ketones March 05, 2020 2:29pm Negative NEGATIVE [facility], [address] [place] [address] 53725 Urine Ketones March 02, 2020 10:48am Negative NEGATIVE [facility], [address] [place] [address] 60550 Urine Ketones February 20, 2020 8:40am Trace NEGATIVE [facility], [address] [place] [address] 65491 Urine Urobilinogen August 03 2:50pm 1 eu/dl [facility], [address] [place] [address] 75668 Urine Urobilinogen July 01 0 9:30pm 1 eu/dl [facility], [address] [place] [address] 13585 Urine Urobilinogen May 18 12:15am 0.2 eu/dl [facility], [address] [place] [address] 92892 Urine Urobilinogen March 25, 2020 8:05am 1 eu/dl [facility], [address] [place] [address] 35752 Urine Urobilinogen March 11, 2020 11:00am 1 eu/dl [facility], [address] [place] [address] 85640 Urine Urobilinogen March 05, 2020 2:29pm 0.2 eu/dl [facility], [address] [place] [address] 27479 Urine Urobilinogen March 02, 2020 10:48am 1 eu/dl [facility], [address] [place] [address] 20270 Urine Urobilinogen February 20, 2020 8:40am 1 eu/dl [facility], [address] [place] [address] 29528 Urine Bilirubin August 03, 2020 2:50pm Negative NEGATIVE [facility], [address] [place] [address] 43593 Urine Bilirubin July 01, 2020 9:30pm Negative NEGATIVE [facility], [address] [place] [address] 73472 Urine Bilirubin May 18, 2020 12:15am Negative NEGATIVE [facility], [address] [place] [address] 63100 Urine Bilirubin March 25, 2020 8:05am Negative NEGATIVE [facility], [address] [place] [address] 83927 Urine Bilirubin March 11, 2020 11:00am Negative NEGATIVE [facility], [address] [place] [address] Urine Bilirubin March 05, 2020 2:29pm Negative NEGATIVE [facility], [address] [place] [address] 16262 Urine Bilirubin March 02, 2020 10:48am Negative NEGATIVE [facility], [address] [place] [address] Urine Bilirubin February 20, 2020 8:40am Negative NEGATIVE [facility], [address] [place] [address] 42278 Urine Blood May 18, 2020 12:15am Negative NEGATIVE [facility], [address] [place] [address] Urine Blood February 20, 2020 8:40am Large NEGATIVE [facility], [address] [place] [address] 83379 Urine Blood August 03, 2020 2:50pm Small NEGATIVE [facility], [address] [place] [address] 07877 Urine Blood July 01, 2020 9:30pm Moderate NEGATIVE A Culture has been added to this specimen per established criteria [facility], [address] [place] [address] 04616 Urine Blood March 25, 2020 8:05am Negative NEGATIVE [facility], [address] [place] [address] 80212 Urine Blood March 11, 2020 11:00am Negative NEGATIVE [facility], [address] [place] [address] 61427 Urine Blood March 05, 2020 2:29pm Large NEGATIVE A Culture has been added to this specimen per established criteria [facility], [address] [place] [address] 87140 Urine Blood March 02, 2020 10:48am Trace NEGATIVE [facility], [address] [place] [address] Microscopic Urinalysis Comment Septe mber 2019 12:15am No [facility], [address] [place] [address] Microscopic Urinalysis Comment February 20, 2020 8:40am Microscopic added [facility], [address] [place] [address] Add Urine Microanalysis July 2:50pm Microscopic added [facility], [address] [place] [address] Add Urine Microanalysis June 9:30pm Microscopic added [facility], [address] [place] [address] Add Urine Microanalysis March 25, 2020 8:05am Microscopic added [facility], [address] [place] [address] Add Urine Microanalysis March 11 11:00am Microscopic added [facility], [address] [place] [address] Add Urine Microanalysis March 05, 020 2:29pm Microscopic added [facility], [address] [place] [address] Add Urine Microanalysis March 02 020 10:48am Microscopic added [facility], [address] [place] [address] Urine RBC August 03, 2020 2:50pm 6-10 /hpf [facility], [address] [place] [address] Urine RBC July 01, 2020 9:30pm Occasional /hpf [facility], [address] [place] [address] Urine RBC March 05, 2020 2:29pm 3-5 /hpf [facility], [address] [place] [address] Urine RBC March 02, 2020 10:48am Occasional /hpf [facility], [address] [place] [address] Urine WBC February 20, 2020 8:40am 20-30 /hpf [facility], [address] [place] [address] Urine WBC August 03, 2020 2:50pm 20-30 /hpf [facility], [address] [place] [address] Urine WBC July 01, 2020 9:30pm Occasional /hpf [facility], [address] [place] [address] Urine WBC March 25, 2020 8:05am 3-5 /hpf [facility], [address] [place] [address] Urine WBC March 11, 2020 11:00am 3-5 /hpf [facility], [address] [place] [address] Urine WBC March 05, 2020 2:29pm Occasional /hpf [facility], [address] [place] [address] Urine WBC March 02, 2020 10:48am 3-5 /hpf [facility], [address] [place] [address] Urine Squamous Epithelial Cells Dece mb2019 2:50pm Moderate /hpf [facility], [address] [place] [address] Urine Squamous Epithelial Cells Nove mber 2019 9:30pm Moderate /hpf [facility], [address] [place] [address] Urine Squamous Epithelial Cells Augu 2019 8:05am Many /hpf [facility], [address] [place] [address] Urine Squamous Epithelial Cells March 11, 2020 11:00am Many /hpf [facility], [address] [place] [address] Urine Squamous Epithelial Cells March 05, 2020 2:29pm Many /hpf [facility], [address] [place] [address] Urine Squamous Epithelial Cells March 02, 2020 10:48am Many /hpf [facility], [address] [place] [address] Urine Squamous Epithelial Cells February 20, 2020 8:40am Many /hpf [facility], [address] [place] [address] Urine Bacteria February 20, 2020 8:40am Moderate amount NEGATIVE [facility], [address] [place] [address] Urine Bacteria August 03, 2020 2:50pm Small amount NEGATIVE [facility], [address] [place] [address] Urine Bacteria July 01, 2020 9:30pm Moderate amount NEGATIVE A Culture has been added to this specime n per established criteria [facility], [address] [place] [address] Urine Bacteria March 25, 2020 8:05am Small amount NEGATIVE [facility], [address] [place] [address] Urine Bacteria March 11, 2020 11:00am Small amount NEGATIVE [facility], [address] [place] [address] Urine Bacteria March 05, 2020 2:29pm Small amount NEGATIVE [facility], [address] [place] [address] Urine Bacteria March 02, 2020 10:48am Small amount NEGATIVE [facility], [address] [place] [address] [phone] Urine Mucus March 25, 2020 8:05am Small amount [facility], [address] [place] [id number] Urine Sperm February 20, 2020 8:40am [facility], [address] [place] [id number] Blood Urea Nitrogen August 03 020 2:35pm 5 mg/dL 05-15 [facility], [address] [place] [address] Blood Urea Nitrogen July 01 9:40pm 6 mg/dL 05-15 [facility], [address] [place] [address] Blood Urea Nitrogen May 18, 2020 6:17am 7 mg/dL 05-15 [facility], [address] [place] [address] Blood Urea Nitrogen March 25, 2020 8:11a m 7 mg/dL 05-15 [facility], [address] [place] [address] Blood Urea Nitrogen March 11, 2020 12:14p m 6 mg/dL 05-15 [facility], [address] [place] [address] Blood Urea Nitrogen March 02, 2020 11:00a m 8 mg/dL 05-15 [facility], [address] [place] [address] Blood Urea Nitrogen February 26, 2020 10:02am 7 mg/dL 05-15 [facility], [address] [place] [address] Blood Urea Nitrogen February 20, 2020 8:35am 6 mg/dL 05-15 [facility], [address] [place] [address] 15710 Sodium Level August 03, 2020 2:35pm 138 mmol/L 132-146 [facility], [address] [place] [address] 63530 Sodium Level July 01, 2020 9:40pm 141 mmol/L 132-146 [facility], [address] [place] [address] 65939 Sodium Level May 18, 2020 6:17am 143 mmol/L 132-146 [facility], [address] [place] [address] 74817 Sodium Level March 25, 2020 8:11am 137 mmol/L 132-146 [facility], [address] [place] [address] 72724 Sodium Level March 11, 2020 12:14pm 140 mmol/L 132-146 [facility], [address] [place] [address] Sodium Level March 02, 2020 11:00am 139 mmol/L 132-146 [facility], [address] [place] [address] 01834 Sodium Level February 26, 2020 10:02am 138 mmol/L 132-146 [facility], [address] [place] [address] 00612 Sodium Level February 20, 2020 8:35am 138 mmol/L 132-146 [facility], [address] [place] [address] 36093 Potassium Level August 03, 2020 2:35pm 4.6 mmol/L 3.5-5.5 [facility], [address] [place] [address] 09756 Potassium Level July 01, 2020 9:40pm 3.7 mmol/L 3.5-5.5 [facility], [address] [place] [address] 36920 Potassium Level May 18, 2020 6:17a m 3.8 mmol/L 3.5-5.5 [facility], [address] [place] [address] 94984 Potassium Level March 25, 2020 8:11am 3.7 mmol/L 3.5-5.5 [facility], [address] [place] [address] 27720 Potassium Level March 11, 2020 12:14pm 4.3 mmol/L 3.5-5.5 [facility], [address] [place] [address] 04422 Potassium Level March 02, 2020 11:00am 4.1 mmol/L 3.5-5.5 [facility], [address] [place] [address] 56132 Potassium Level February 26, 2020 10:02am 4.1 mmol/L 3.5-5.5 [facility], [address] [place] [address] 41400 Potassium Level February 20, 2020 8:35am 4.1 mmol/L 3.5-5.5 [facility], [address] [place] [address] 54593 Chloride Level August 03, 2020 2:35pm 110 mmol/l 99-109 [facility], [address] [place] [address] 32573 Chloride Level July 01, 2020 9:40pm 110 mmol/l 99-109 [facility], [address] [place] [address] 46497 Chloride Level May 18, 2020 6:17am 113 mmol/l 99-109 [facility], [address] [place] [address] 66449 Chloride Level March 25, 2020 8:11am 111 mmol/l 99-109 [facility], [address] [place] [address] 22524 Chloride Level March 11, 2020 12:14pm 111 mmol/l 99-109 [facility], [address] [place] [address] 77674 Chloride Level March 02, 2020 11:00am 111 mmol/l 99-109 [facility], [address] [place] [address] 56272 Chloride Level February 26, 2020 10:02am 107 mmol/l 99-109 [facility], [address] [place] [address] 87566 Chloride Level February 20, 2020 8:35am 108 mmol/l 99-109 [facility], [address] [place] [address] 54733 Carbon Dioxide Level August 03, 2020 2:35pm 21 mmol/l 20-31 [facility], [address] [place] [address] 69810 Carbon Dioxide Level July 01 9:40pm 22 mmol/l 20-31 [facility], [address] [place] [address] 51645 Carbon Dioxide Level May 18, 2020 6:17am 25 mmol/l 20-31 [facility], [address] [place] [address] 09150 Carbon Dioxide Level March 25 0 8:11am 21 mmol/l 20-31 [facility], [address] [place] [address] 45956 Carbon Dioxide Level March 11, 2020 12:14pm 20 mmol/l 20-31 [facility], [address] [place] [address] 72793 Carbon Dioxide Level March 02, 2020 11:00am 20 mmol/l 20-31 [facility], [address] [place] [address] 78852 Carbon Dioxide Level February 26, 2020 10:02a m 22 mmol/l 20-31 [facility], [address] [place] [address] 98040 Carbon Dioxide Level February 20, 2020 8:35a m 21 mmol/l 20-31 [facility], [address] [place] [address] 18262 Anion Gap August 03, 2020 2:35pm 12 mmol/l 8-16 [facility], [address] [place] [address] 18067 Anion Gap July 01, 2020 9:40pm 13 mmol/l 8-16 [facility], [address] [place] [address] 26424 Anion Gap May 18, 2020 6:17am 9 mmol/l 8-16 [facility], [address] [place] [address] 51224 Anion Gap March 25, 2020 8:11am 9 mmol/l 8-16 [facility], [address] [place] [address] 86153 Anion Gap March 11, 2020 12:14pm 13 mmol/l 8-16 [facility], [address] [place] [address] 56365 Anion Gap March 02, 2020 11:00am 12 mmol/l [address] [facility], [address] [place] [address] 73422 Anion Gap February 26, 2020 10:02am 13 mmol/l [address] [facility], [address] [place] [address] 67296 Anion Gap February 20, 2020 8:35am 13 mmol/l 8-[address] [place] [address] LABORATORY, [address] [place] [address] 82687 Glucose Level August 03, 2020 2:35pm 87 mg/dL [address] [place] [address] LABORATORY, [address] [place] [address] 22597 Glucose Level July 01, 2020 9:40pm 100 mg/dL [address] [place] [address] LABORATORY, [address] [place] [address] 94778 Glucose Level May 18, 2020 6:17am 93 mg/dL [address] [place] [address] LABORATORY, [address] [place] [address] 68535 Glucose Level March 25, 2020 8:11am 93 mg/dL 74-106 [facility], [address] [place] [address] 14232 Glucose Level March 11, 2020 12:14pm 88 mg/dL [address] [place] [address] LABORATORY, [address] [place] [address] 69364 Glucose Level March 02, 2020 11:00am 91 mg/dL 74-106 [facility], [address] [place] [address] 59425 Glucose Level February 26, 2020 10:02am 92 mg/dL 74-106 [facility], [address] [place] [address] 85675 Glucose Level February 20, 2020 8:35am 98 mg/dL 74-106 [facility], [address] [place] [address] 57569 Creatinine August 03, 2020 2:35pm 0.8 mg/dL 0.5-1.1 [facility], [address] [place] [address] 22863 Creatinine July 01, 2020 9:40pm 0.9 mg/dL 0.5-1.1 [facility], [address] [place] [address] Creatinine May 18, 2020 6:17am 0.7 mg/dL 0.5-1.1 [facility], [address] [place] [address] Creatinine March 25, 2020 8:11am 0.9 mg/dL 0.5-1.1 [facility], [address] [place] [address] Creatinine March 11, 2020 12:14pm 1.2 mg/dL 0.5-1.1 [facility], [address] [place] [address] Creatinine March 02, 2020 11:00am 1.0 mg/dL 0.5-1.1 [facility], [address] [place] [address] Creatinine February 26, 2020 10:02am 1.0 mg/dL 0.5-1.1 [facility], [address] [place] [address] Creatinine February 20, 2020 8:35am 1.1 mg/dL 0.5-1.1 [facility], [address] [place] [address] 60699 Glomerular Filtration Rate Calc Dece 2019 2:35pm Greater than 60 ml/min ABOVE 60 [facility], [address] [place] [address] Glomerular Filtration Rate Calc Nove 2019 9:40pm Greater than 60 ml/min ABOVE 60 [facility], [address] [place] [address] 06519 Glomerular Filtration Rate Calc Sept 2019 6:17am Greater than 60 ml/min ABOVE 60 [facility], [address] [place] [address] 40571 Glomerular Filtration Rate Calc Aug2019 8:11am Greater than 60 ml/min ABOVE 60 [facility], [address] [place] [address] 78629 Glomerular Filtration Rate Calc March 11, 2020 12:14pm 55 ml/min ABOVE 60 [facility], [address] [place] [address] Glomerular Filtration Rate Calc March 02, 2020 11:00am Greater than 60 ml/min ABOVE 60 [facility], [address] [place] [address] Glomerular Filtration Rate Calc February 26, 2020 10:02am Greater than 60 ml/min ABOVE 60 [facility], [address] [place] [address] Glomerular Filtration Rate Calc February 20, 2020 8:35am Greater than 60 ml/min ABOVE 60 [facility], [address] [place] [address] 12614 Alanine Aminotransferase (ALT/SGPT) August 03, 2020 2:35pm 42 U/L 10-49 [facility], [address] [place] [address] 40634 Alanine Aminotransferase (ALT/SGPT) July 01, 2020 9:40pm 43 U/L 10-49 [facility], [address] [place] [address] Alanine Aminotransferase (ALT/SGPT) May 18, 2020 6:17am 52 U/L 10-49 [facility], [address] [place] [address] 70097 Alanine Aminotransferase (ALT/SGPT) March 25, 2020 8:11am 27 U/L 10-49 [facility], [address] [place] [address] 55491 Alanine Aminotransferase (ALT/SGPT) March 11, 2020 12:14pm 29 U/L 10-49 [facility], [address] [place] [address] 50111 Alanine Aminotransferase (ALT/SGPT) March 02, 2020 11:00am 29 U/L 10-49 [facility], [address] [place] [address] 17706 Alanine Aminotransferase (ALT/SGPT) February 26, 2020 10:02am 33 U/L 10-49 [facility], [address] [place] [address] 14828 Alanine Aminotransferase (ALT/SGPT) February 20, 2020 8:35am 42 U/L 10-49 [facility], [address] [place] [address] 23497 Aspartate Amino Transf (AST/SGOT) De cember 2019 2:35pm 35 U/L 0-33 [facility], [address] [place] [address] 59166 Aspartate Amino Transf (AST/SGOT) No vember 2019 9:40pm 21 U/L 0-33 [facility], [address] [place] [address] 64594 Aspartate Amino Transf (AST/SGOT) Se ptember 2019 6:17am 27 U/L 0-33 [facility], [address] [place] [address] 48632 Aspartate Amino Transf (AST/SGOT) Au kem 2019 8:11am 15 U/L 0-33 [facility], [address] [place] [address] 49981 Aspartate Amino Transf (AST/SGOT) Ju ly 2019 12:14pm 17 U/L 0-33 [facility], [address] [place] [address] 77148 Aspartate Amino Transf (AST/SGOT) Ju ly 2019 11:00am 14 U/L 0-33 [facility], [address] [place] [address] 85134 Aspartate Amino Transf (AST/SGOT) Ju ly 2019 10:02am 17 U/L 0-33 [facility], [address] [place] [address] 38181 Aspartate Amino Transf (AST/SGOT) Ju ne 2019 8:35am 23 U/L 0-33 [facility], [address] [place] [address] 22073 Alkaline Phosphatase August 03, 2020 2:35pm 125 U/L 45-129 [facility], [address] [place] [address] 23962 Alkaline Phosphatase July 01 9:40pm 139 U/L 45-129 [facility], [address] [place] [address] 47212 Alkaline Phosphatase May 18, 2020 6:17am 110 U/L 45-129 [facility], [address] [place] [address] 76441 Alkaline Phosphatase March 25 8:11am 122 U/L 45-129 [facility], [address] [place] [address] 59489 Alkaline Phosphatase March 11, 2020 12:14pm 129 U/L 45-129 [facility], [address] [place] [address] 73069 Alkaline Phosphatase March 02, 2020 11:00am 136 U/L 45-129 [facility], [address] [place] [address] 23605 Alkaline Phosphatase February 26, 2020 10:02a m 147 U/L 45-129 [facility], [address] [place] [address] 33112 Alkaline Phosphatase February 20, 2020 8:35a m 149 U/L 45-129 [facility], [address] [place] [address] 55255 Amylase Level August 03, 2020 2:35pm 31 U/L 30-118 [facility], [address] [place] [address] 80777 Amylase Level May 17, 2020 7:20pm 39 U/L 30-118 [facility], [address] [place] [address] 38433 Amylase Level March 25, 2020 8:11am 35 U/L 30-118 [facility], [address] [place] [address] 81889 Lipase August 03, 2020 2:35pm 68 U/L 73-393 [facility], [address] [place] [address] 11081 Lipase May 17, 2020 7:20pm 89 U/L 73-393 [facility], [address] [place] [address] 91261 Lipase March 25, 2020 8:11am 97 U/L 73-393 [facility], [address] [place] [address] 77879 Lipase March 11, 2020 12:14pm 128 U/L 73-393 [facility], [address] [place] [address] 64046 Calcium Level August 03, 2020 2:35pm 9.1 mg/dL 8.5-10.1 [facility], [address] [place] [address] 04137 Calcium Level July 01, 2020 9:40pm 9.2 mg/dL 8.5-10.1 [facility], [address] [place] [address] 68097 Calcium Level May 18, 2020 6:17am 8.5 mg/dL 8.5-10.1 Delta: 9.6 on 05/17/20-2019Repeated by: Roderick Cee 05/18/20 0824.Result Confirmation: 8.3 # mg/dL [facility], [address] [place] [address] 08926 Calcium Level March 25, 2020 8:11am 8.9 mg/dL 8.5-10.1 [facility], [address] [place] [address] 10337 Calcium Level March 11, 2020 12:14pm 8.6 mg/dL 8.5-10.1 [facility], [address] [place] [address] 31781 Calcium Level March 02, 2020 11:00am 9.0 mg/dL 8.5-10.1 [facility], [address] [place] [address] 30078 Calcium Level February 26, 2020 10:02am 9.0 mg/dL 8.5-10.1 [facility], [address] [place] [address] 47694 Calcium Level February 20, 2020 8:35am 9.4 mg/dL 8.5-10.1 [facility], [address] [place] [address] 06274 Total Bilirubin August 03, 2020 2:35pm 0.4 mg/dL 0.3-1.2 [facility], [address] [place] [address] Total Bilirubin July 01, 2020 9:40pm 0.3 mg/dL 0.3-1.2 [facility], [address] [place] [address] 45120 Total Bilirubin May 18, 2020 6:17a m 0.3 mg/dL 0.3-1.2 [facility], [address] [place] [address] 07546 Total Bilirubin March 25, 2020 8:11am 0.2 mg/dL 0.3-1.2 [facility], [address] [place] [address] 13269 Total Bilirubin March 11, 2020 12:14pm 0.2 mg/dL 0.3-1.2 [facility], [address] [place] [address] 95307 Total Bilirubin March 02, 2020 11:00am 0.4 mg/dL 0.3-1.2 [facility], [address] [place] [address] Total Bilirubin February 26, 2020 10:02am 0.3 mg/dL 0.3-1.2 [facility], [address] [place] [address] 99337 Total Bilirubin February 20, 2020 8:35am 0.3 mg/dL 0.3-1.2 [facility], [address] [place] [address] 13565 Albumin August 03, 2020 2:35pm 3.5 g/dL 3.2-4.8 [facility], [address] [place] [address] 61319 Albumin July 01, 2020 9:40pm 3.5 g/dL 3.2-4.8 [facility], [address] [place] [address] 40933 Albumin May 18, 2020 6:17am 3.0 g/dL 3.2-4.8 [facility], [address] [place] [address] 45426 Albumin March 25, 2020 8:11am 3.0 g/dL 3.2-4.8 [facility], [address] [place] [address] 97683 Albumin March 11, 2020 12:14pm 3.2 g/dL 3.2-4.8 [facility], [address] [place] [address] 84313 Albumin March 02, 2020 11:00am 3.1 g/dL 3.2-4.8 [facility], [address] [place] [address] 57529 Albumin February 26, 2020 10:02am 3.4 g/dL 3.2-4.8 [facility], [address] [place] [address] 25719 Albumin February 20, 2020 8:35am 3.5 g/dL 3.2-4.8 [facility], [address] [place] [address] 92998 Serum Total Protein August 03 2:35pm 8.1 g/dL 5.7-8.2 [facility], [address] [place] [address] 68768 Serum Total Protein July 01 9:40pm 8.0 g/dL 5.7-8.2 [facility], [address] [place] [address] Serum Total Protein May 18, 2020 6:17am 6.6 g/dL 5.7-8.2 [facility], [address] [place] [address] 25906 Serum Total Protein March 25, 2020 8:11a m 7.7 g/dL 5.7-8.2 [facility], [address] [place] [address] 84371 Serum Total Protein March 11, 2020 12:14p m 7.6 g/dL 5.7-8.2 [facility], [address] [place] [address] 35674 Serum Total Protein March 02, 2020 11:00a m 7.9 g/dL 5.7-8.2 [facility], [address] [place] [address] 95768 Serum Total Protein February 26, 2020 10:02am 7.6 g/dL 5.7-8.2 [facility], [address] [place] [address] 45055 Serum Total Protein February 20, 2020 8:35am 7.9 g/dL 5.7-8.2 [facility], [address] [place] [address] 41329 Lactic Acid Level July 01, 2020 9:40p m 1.0 mmol/L 0.5-2.2 [facility], [address] [place] [address] 36415 Human Chorionic Gonadotropin, Quant August 03, 2020 2:35pm 56225 mIU/mL 0-10 APPROXIMATE GESTATION AGE APRROX IMATE HCG RANGE 0-1 WEEK 0 - 50 1-2 WEEKS 40 - 300 2-3 WEEKS 100 - 1,000 3-4 WEEKS 500 - 6,000 1-2 MONTHS 5,000 - 200,000 2-3 MONTHS 10,000 - 100,000 2ND TRIMESTER 3,000 - 50,000 3RD TRIMESTER 1,000 - 50,000 [facility], [address] [place] [address] 58395 Human Chorionic Gonadotropin, Quant July 01, 2020 10:10am Less than 1 mIU/mL 0-1 0 APPROXIMATE GESTATION AGE APRROX IMATE HCG RANGE 0-1 WEEK 0 - 50 1-2 WEEKS 40 - 300 2-3 WEEKS 100 - 1,000 3-4 WEEKS 500 - 6,000 1-2 MONTHS 5,000 - 200,000 2-3 MONTHS 10,000 - 100,000 2ND TRIMESTER 3,000 - 50,000 3RD TRIMESTER 1,000 - 50,000 [facility], [address] [place] [address] 85253 Thyroid Stimulating Hormone (TSH) Ju ly 2019 10:02am 1.84 uIU/mL 0.35-5.50 [facility], [address] [place], [place] [id number] Serum Test, Qualitative De cember 2019 2:35pm Positive NEGATIVE [facility], [address] [place], [place] [id number] Serum Test, Qualitative No vember 2019 9:40pm Negative NEGATIVE [facility], [address] [place] [address] 93697 Serum Test, Qualitative Se ptember 2019 7:20pm Negative NEGATIVE [facility], [address] [place], [place] [id number] Serum Test, Qualitative Au kem 2019 8:11am Negative NEGATIVE [facility], [address] [place] [address] 23868 Urine HCG, Qualitative March 11 11:00am Negative NEGATIVE [facility], [address] [place] [address] 78846 Urine HCG, Qualitative March 02 11:00am Negative NEGATIVE [facility], [address] [place] [address] 62863 Urine HCG, Qualitative February 19 8:32am Negative NEGATIVE [facility], [address] [place] [address] 51922 Coronavirus (COVID-19)(PCR) March 252019 2:30pm Not detected Not Detec dee This test was developed and its performa nce characteristicsdetermined by [employer]. This test has not beenFDA cleared or [...] (not detected) result in this assay.Performed at: [address] [id number] Director: Deisy Hdez MD, Phone: [phone] [facility] , [address] [place] [phone] Urine Random Creatinine February 27 7:19am 234.0 mg/dL THERE IS NO ESTABLISHED RANGE FOR RANDOM URINE CREATININE [facility] [place] [address] Urine Microalbumin February 28, 2020 7:19am 13.7 mg/L 0.0-29.9 [facility] [place] [id number] Urine Microalbumin/Creatinine Ratio February 28, 2020 7:19am 5.8 ug/mg 0.0-30.0 [facility], [address] [place] [address] 00713 Hemoglobin A1c February 26, 2020 10:02am 5.3 [...] control. * High risk of developing long wall mining machine tender complications such asretinopathy, nephropathy, neuropathy, cardiopathy, etc. Some danger of hypoglycemic reaction in Type I diabetics.Some glucose intolerant individuals and "Sub Clinical"diabetics may demonstrate HGBA1C levels in this area. [facility], [address] [place] [address] 60490 Estimated Average Glucose (eAG) February 26, 2020 10:02am 105 mg/dl An A1C of 7% - the goal of diabetic therapy - is equivalentto an EAG of 154 mg/dl. [facility], [address] [place] [id number] Microbiology Results Procedure Source Result Collection Date/Time Result Date/Time Result Comment Performing Site Urine Culture Urine,voided July 01, 2020 9:30pm June [id number] 7:24am [facility], [address] [place] [id number] Urine Culture Urine,voided May 18, 2020 1:15am Septembe 2019 11:25am [facility], [address] [place] [address] Urine Culture Urine,clean catch March 25, 2020 9:05am March 26, 2020 1:36pm [facility], [address] [place] [address] Urine Culture Urine,clean catch March 11, 2020 12:00pm March 12, 020 1:24pm [facility], [address] [place] [id number] Urine Culture Urine,voided March 05, 2020 3:29pm March 06, 20 20 9:18am [facility], [address] [place] [address] [id number] Urine Culture Urine,voided March 02, 2020 11:48am March 03, 2 020 8:26am [facility], [address] [place] [address] [id number] Streptococcus Rapid Screen Throat March 13, 2020 10:34am March 14, 2 020 8:58am [facility], [address] [place] [address] [id number] Streptococcus Rapid Screen Throat March 13, 2020 10:34am March 13, 2 020 11:04am [facility], [address] [place] [address] [id number] Blood Culture Venous blood No growth. July 01, 2020 9:40pm June [id number] 9:46pm [facility], [address] [place] [address] SARS-CoV-2 (PCR) Interpretation Naso pharyngeal No Organisms Detected July 01, 2020 9:45pm July 01, 2020 10:29pm [facility], [address] [place] [address] Nasal BinaxNow Covid - 19 Ag Negative July 30, 2020 9:45am July 302019 11:56am [facility], [address] [place] [address] Gastrointestinal Tract Panel (PCR) Stool C. difficile toxin detected May 17, 2020 3:03pm May 17, 2020 5:25pm [facility], [address] [place] [address] Respiratory Panel (PCR) Nasopharyngeal No Organisms Detected May 18, 2020 1:40am May 18, 2020 2:49am [facility], [address] [place] [address] Diagnostic Imaging Reports Report Dictated Date/Time Dictated By Status Radiology Report February 28, 2020 9:48am Oliverio Chen MD completed [place] [address] [place] [address] [phone] NAME SEX PT STATUS ACCOUNT NUMBER ANNA MARIE BELTRAN REG REF [id number] ORDERING PHYSICIAN LOCATION MEDICAL RECORD NO. Jose Kramer DO [id number] ATTENDING PHYSICIAN DATE OF DATE OF EXAM/TIME [...] 02, 2020 1:53pm Warren Bourne MD completed [facility] [address] [place] [address] [phone] NAME SEX PT STATUS ACCOUNT NUMBER ANNA MARIE BELTRAN [facility] ER [id number] ORDERING PHYSICIAN LOCATION MEDICAL RECORD NO. Sameer Islas MD ER [id number] ATTENDING PHYSICIAN DATE OF DATE OF EXAM/TIME [...] 12, 2020 2:59pm Oliverio Chen MD completed [facility] [address] [place] [address] [phone] NAME SEX PT STATUS ACCOUNT NUMBER ANNA MARIE BELTRAN REG REF [id number] ORDERING PHYSICIAN LOCATION MEDICAL RECORD NO. Pola Meadows MD [id number] ATTENDING PHYSICIAN DATE OF DATE OF EXAM/TIME [...] 25, 2020 10:18am Oliverio Chen MD completed [place] [address] [place] [address] [phone] NAME SEX PT STATUS ACCOUNT NUMBER ANNA MARIE BELTRAN REG ER [id number] ORDERING PHYSICIAN LOCATION MEDICAL RECORD NO. Hiren Perez MD ER [id number] ATTENDING PHYSICIAN DATE OF DATE OF EXAM/TIME [...] May 17 9:41pm Ulisses Sethi MD completed [place] [address] [place] [address] [phone] NAME SEX PT STATUS ACCOUNT NUMBER ANNA MARIE BELTRAN REG ER [id number] ORDERING PHYSICIAN LOCATION MEDICAL RECORD NO. Mikhail Sheriff MD ER [id number] ATTENDING PHYSICIAN DATE OF DATE OF EXAM/TIME [...] 2020 10:55p m Telly Robledo MD completed [place] [id number] [place] [address] [phone] NAME SEX PT STATUS ACCOUNT NUMBER DEVINCANDIEANNA MARIE M F REG ER [id number] ORDERING PHYSICIAN LOCATION MEDICAL RECORD NO. Mikhail Sheriff MD ER [id number] ATTENDING PHYSICIAN DATE OF DATE OF EXAM/TIME [...] Ocampo Dt/Tm: Trans by: DT Prt Dt/Tm: [id number]: Total DLP = 0.00 mGy-cm Fluoroscopy Time (in secs): Radiology Report July 01, 2020 11:07p m Niels Wilkerson MD completed [place] [id number] [place] [address] [phone] NAME SEX PT STATUS ACCOUNT NUMBER ANNA MARIE BELTRAN Keri Crespo REG ER [id number] ORDERING PHYSICIAN LOCATION MEDICAL RECORD NO. Mikhail Sheriff MD ER [id number] ATTENDING PHYSICIAN DATE OF DATE OF EXAM/TIME [...] Response Recorded Date/Time Advanced Directive No 2019 1:55pm MOLST No July 17, 2020 12:04pm Advance Directives on File or in chart? No July 17, 2020 12:04pm Does Patient have a DNR? No August 03, 2020 1:55pm Healthcare Proxy No Dece [email or web address] 1:55pm Living Will No July 17, 2020 12:04pm [...] ER Follow-up (Adult) Urinary complaint ABDOMINAL PAIN Reason for Visit Anxiety Depression [...] Bianka Sen MD Departed Physician/Provider Office Visit -[facility] February 20, 2020 10:22am February 20, [...] 2020 4:29pm null Departed Physician/Provider Office Visit -[facility] March 11, 2020 9:28am March 11, 2020 10:13am Trice Aj NP Departed Physician/Provider Office Visit -[facility] March 11, 2020 10:17am March 11, 2020 11:49am Pola Meadows MD Registered Referred -Laboratory March 11, 2020 11:56am Trice Aj NP Registered Referred -Ultrasound March 12, 2020 11:38am Pola Meadows MD Departed Physician/Provider Office Visit -[facility] March 12, 2020 12:22pm March 12, 2020 2:13pm Trice Aj NP Departed Emergency -Emergency Room ER March 13, 2020 9:18am March 13, 2020 10:18am null Departed Emergency -Emergency Room ER March 25, 2020 7:55am March 25, 2020 9:27am null Departed Physician/Provider Office Visit -[facility] March 25, 2020 2:51pm March 25, 2020 2:52pm Nathalie Pace Registered Referred -Lab Drop Off March 25, 2020 3:08pm Nathalie Pace Departed Physician/Provider Office Visit -[facility] March 28, 2020 7:01am March 28, 2020 7:47am Trice Aj NP Registered Outpatient -[facility] April 05, 2020 8:29am Trice Aj NP Registered Referred -Laboratory May 17, 2020 1:48pm Trice longoria NP Discharged Inpatient -[facility] May 18, 2020 12:18am May 18, 2020 2:40pm Tad Menendez MD Registered Outpatient -[facility] May 20, 2020 2:25pm Amara Garcia RN Departed Physician/Provider Office Visit -[facility] May 23, 2020 7:51am May 23, 2020 8:35am Trice Aj NP Departed Physician/Provider Office Visit -[facility] May 30, 2020 9:25am May 30, 2020 11:56am Nicol Sebastian NP Departed Physician/Provider Office Visit -[facility] June 10, 2020 8:26am June 10, 2020 8:58am Jarret Herbert MD Departed Physician/Provider Office Visit -[facility] June 28, 2020 3:47pm June 28, 2020 4:33pm Nicol Sebastian NP Departed Physician/Provider Office Visit -[facility] July 01, 2020 9:04am July 01, 2020 11:04am Nicol Sebastian NP Registered Referred -Laboratory July 01, 2020 9:47am Kiersten Schulz DO Departed Emergency -Emergency Room ER July 01, 2020 8:40pm July 02, 2020 12:20am null Departed Physician/Provider Office Visit -[facility] July 04, 2020 11:14am July 04, 2020 12:47pm Nicol Sebastian NP Departed Physician/Provider Office Visit -[facility] July 25, 2020 9:54am July 25, 2020 10:57am Nicol Sebastian NP Registered Referred -Laboratory July 30, 2020 9:45am Jaki Elias MD Departed Emergency -Emergency Room ER August 03, 2020 1:29pm August 03, 2020 8:21pm null Recent Diagnosis Onset Date Anxiety Depression [...] Response Neil e Recorded Functional Status Complete [place] May 18, 2020 1:30am Goals Goals may be documented in an alternate section. Immunizations No Immunization Information Available Mental Status Observation Response Neil e Recorded Impairments No impairments or barriers August 03, 2020 1:29pm Cognitive Status Normal Cognition May 18, 2020 1:30am Medical Equipment No Medical Equipment Information available Insurance Providers Guarantor ANNA MARIE BELTRAN Address [address] [address] Contact Info. 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 Increase diet and exercise. Referral to [facility] for chronic inflammation. Elevate legs. Sertaline [...] GI July 26, 2020 for upper GI. [place] [employer] rice, applesauce, bananas, and toast. Resolved. [...] that she has had counseling in the [facility], but symptoms are worse at this time, d/t recent move to [place]. Will continue current meds and will refer to psych. Community Health Planning Director appt with behavioral health this week. Taking [...] palpation without abnormal physical find ings. Doubt [employer] cause but send urine culture in case. [...] with PO vancomycin Trice dimas NP Email: [email or web address] Phone: [facility] [address] [facility] [phone] Call for an appointment to be seen in the next 48 hours Jose Kramer DO Email: [email or web address] Phone: [phone] [facility] [phone] Call for an appointment for follow-up for Wednesday or Wednesday Jose Kramer DO Email: [email or web address] Phone: [phone] [facility] [address] [email or web address] - Morbid (severe) obesity due to [...] Status Date of Observation Never smoker August 03, 2020 6:1 4pm Observation Status Date of Observation Patient currently August 03, 2020 Observation Status Observation Response Neil e of Response Smoking Status Never smoker August 03, 2020 6:14pm Assigned Sex Female Vital Signs Vital Reading [...] 01, 2020 9:15am Respiratory rate 18 /min 12-July 01, 2020 9:15am Oxygen saturation by Pulse [...]
--- OUTSIDE RECORDS SUMMARY | 2020-10-18 10:11 | CCD ---
Author Author [facility] Organization [facility] Address Unknown Phone Unavailable Care Team Providers Care Program Advisor Name Role Phone Bridger [phone] MD Barrett ARAGON Unavailable Unavailable Bridger [phone] MD Barrett ARAGON Unavailable Unavailable Bridger [phone] MD Barrett ARAGON Unavailable Unavailable Nayeli Patrick MD Unavailable Unavailable Nayeli Patrick MD Unavailable Unavailable Nayeli Patrick MD Unavailable Unavailable Nayeli Patrick MD Unavailable Unavailable Nayeli Patrick MD Unavailable Unavailable Nayeli Patrick MD Unavailable Unavailable Nayeli Patrick MD Unavailable Unavailable Nayeli Patrick MD Unavailable Unavailable Nayeli Patrick MD Unavailable Unavailable Nayeli Patrick MD Unavailable Unavailable Nayeli Patrcik MD Unavailable Unavailable Nayeli Patrick MD Unavailable Unavailable Nayeli Patrick MD Unavailable Unavailable Nayeli Patrick MD Unavailable Unavailable Nayeli Patrick MD Unavailable Unavailable Nayeli Patrick MD Unavailable Unavailable Nayeli Patrick MD Unavailable Unavailable Nayeli Patrick MD Unavailable Unavailable Nayeli Patrick MD Unavailable Unavailable Nayeli Patrick MD Unavailable Unavailable Nayeli Patrick MD Unavailable Unavailable Nayeli Patrick MD Unavailable Unavailable Nayeli Patrick MD Unavailable Unavailable Nayeli Patrick MD Unavailable Unavailable Nayeli Patrick MD Unavailable Unavailable Nayeli Patrick MD Unavailable Unavailable Nayeli Patrick MD Unavailable Unavailable Nayeli Patrick MD Unavailable Unavailable Nayeli Patrick MD Unavailable Unavailable Nayeli Patrick MD Unavailable Unavailable Nayeli Patrick MD Unavailable Unavailable Nayeli Patrick MD Unavailable Unavailable Nayeli Patrick MD Unavailable Unavailable Nayeli Patrick MD Unavailable Unavailable Nayeli Patrick MD Unavailable Unavailable Nayeli Patrick MD Unavailable Unavailable Nayeli Patrick MD Unavailable Unavailable Nayeli Patrick MD Unavailable Unavailable Nayeli Patrick MD Unavailable Unavailable Nayeli Patrick MD Unavailable Unavailable Nayeli Patrick MD Unavailable Unavailable Nayeli Patrick MD Unavailable Unavailable Nayeli Patrick MD Unavailable Unavailable Nayeli Patrick MD Unavailable Unavailable Nayeli Patrick MD Unavailable Unavailable Nayeli Patrick MD Unavailable Unavailable Nayeli Patrick MD Unavailable Unavailable Nayeli Patrick MD Unavailable Unavailable Nayeli Patrick MD Unavailable Unavailable Nayeli Patrick MD Unavailable Unavailable Nayeli Patrikc MD Unavailable Unavailable Nayeli Patrick MD Unavailable Unavailable Nayeli Patrick MD Unavailable Unavailable Nayeli Patrick MD Unavailable Unavailable Nayeli Patrick MD Unavailable Unavailable Nayeli Patrick MD Unavailable Unavailable Nayeli Patrick MD Unavailable Unavailable Nayeli Patrick MD Unavailable Unavailable Nayeli Patrick MD Unavailable Unavailable Nayeli Patrick MD Unavailable Unavailable Abi, K Daljit MD Unavailable Unavailable Abi, K Daljit MD Unavailable Unavailable Abi, K Daljit MD Unavailable Unavailable Abi, K Daljit MD Unavailable Unavailable Abi, K Daljit MD Unavailable Unavailable Abi, K Daljit MD Unavailable Unavailable Abi, K Daljit MD Unavailable Unavailable Abi, K Daljit MD Unavailable Unavailable Abi, K Daljit MD Unavailable Unavailable Abi, K Daljit MD Unavailable Unavailable Abi, K Daljit MD Unavailable Unavailable KOPIDLANSKY, Christy THAO MONTESSORI TEACHER-DECK MECHANIC-C Unavailable Unava ilable KOPIDLANSKY, Christy THAO MONTESSORI TEACHER-DECK MECHANIC-C Unavailable Unava ilable KOPIDLANSKY, Christy THAO APRN-DECK MECHANIC-C Unavailable Unava ilable KOPIDLANSKY, Christy THAO APRN-DECK MECHANIC-C Unavailable Unava ilable KOPIDLANSKY, Christy THAO APRN-DECK MECHANIC-C Unavailable Unava ilable KOPIDLANSKY, Christy THAO APRN-DECK MECHANIC-C Unavailable Unava ilable KOPIDLANSKY, Christy THAO APRN-DECK MECHANIC-C Unavailable Unava ilable KOPIDLANSKY, Christy THAO APRN-DECK MECHANIC-C Unavailable Unava ilable KOPIDLANSKY, Christy THAO APRN-DECK MECHANIC-C Unavailable Unava ilable KOPIDLANSKY, Christy THAO APRN-DECK MECHANIC-C Unavailable Unava ilable KOPIDLANSKY, Christy THAO APRN-DECK MECHANIC-C Unavailable Unava ilable KOPIDLANSKY, Christy THAO APRN-DECK MECHANIC-C Unavailable Unava ilable KOPIDLANSKY, Christy THAO APRN-DECK MECHANIC-C Unavailable Unava ilable KOPIDLANSKY, Christy THAO APRN-DECK MECHANIC-C Unavailable Unava ilable KOPIDLANSKY, Christy THAO APRN-DECK MECHANIC-C Unavailable Unava ilable KOPIDLANSKY, Christy THAO APRN-DECK MECHANIC-C Unavailable Unava ilable KOPIDLANSKY, Christy THAO APRN-DECK MECHANIC-C Unavailable Unava ilable KOPIDLANSKY, Christy THAO APRN-DECK MECHANIC-C Unavailable Unava ilable KOPIDLANSKY, Christy THAO MONTESSORI TEACHER-DECK MECHANIC-C Unavailable Unava ilable KOPIDLANSKY, Christy THAO MONTESSORI TEACHER-DECK MECHANIC-C Unavailable Unava ilable KOPIDLANSKY, Christy THAO MONTESSORI TEACHER-DECK MECHANIC-C Unavailable Unava ilable KOPIDLANSKY, Christy THAO APRN-DECK MECHANIC-C Unavailable Unava ilable KOPIDLANSKY, Christy THAO APRN-DECK MECHANIC-C Unavailable Unava ilable Liberty, Cole MD Unavailable Unavailable Liberty, Cole MD Unavailable Unavailable Liberty, Cole MD Unavailable Unavailable Liberty, Cole MD Unavailable Unavailable Liberty, Cole MD Unavailable Unavailable Liberty, Cole MD Unavailable Unavailable Liberty, Cole MD Unavailable Unavailable Liberty, Cole MD Unavailable Unavailable Liberty, Cole MD Unavailable Unavailable Liberty, Cole MD Unavailable Unavailable Liberty, Cole MD Unavailable Unavailable Liberty, Cole MD Unavailable Unavailable Liberty, Cole MD Unavailable Unavailable Liberty, Cole MD Unavailable Unavailable Liberty, Cole MD Unavailable Unavailable Liberty, Cole MD Unavailable Unavailable Liberty, Cole MD Unavailable Unavailable Liberty, Cole MD Unavailable Unavailable Liberty, Cole MD Unavailable Unavailable Liberty, Cole MD Unavailable Unavailable Liberty, Cole MD Unavailable Unavailable Liberty, Cole MD Unavailable Unavailable Liberty, Cole MD Unavailable Unavailable Liberty, Cole MD Unavailable Unavailable Liberty, Cole MD Unavailable Unavailable Liberty, Cole MD Unavailable Unavailable Liberty, Cole MD Unavailable Unavailable Liberty, Cole MD Unavailable Unavailable Sanjeev, A Nathalie WINDOWS MOBILE DEVELOPER Unavailable Unavailable Sanjeev, A Nathalie WINDOWS MOBILE DEVELOPER Unavailable Unavailable Sanjeev, A Nathalie WINDOWS MOBILE DEVELOPER Unavailable Unavailable Sanjeev, A Nathalie WINDOWS MOBILE DEVELOPER Unavailable Unavailable Sanjeev, A Nathalie WINDOWS MOBILE DEVELOPER Unavailable Unavailable Sanjeev, A Nathalie WINDOWS MOBILE DEVELOPER Unavailable Unavailable Sanjeev, A Nathalie WINDOWS MOBILE DEVELOPER Unavailable Unavailable Sanjeev, A Nathalie WINDOWS MOBILE DEVELOPER Unavailable Unavailable Sanjeev, A Nathalie WINDOWS MOBILE DEVELOPER Unavailable Unavailable Sanjeev, A Nathalie WINDOWS MOBILE DEVELOPER Unavailable Unavailable Sanjeev, A Nathalie WINDOWS MOBILE DEVELOPER Unavailable Unavailable Sanjeev, A Nathalie WINDOWS MOBILE DEVELOPER Unavailable Unavailable Sanjeev, A Nathalie WINDOWS MOBILE DEVELOPER Unavailable Unavailable Sanjeev, A Nathalie WINDOWS MOBILE DEVELOPER Unavailable Unavailable Sanjeev, A Nathalie WINDOWS MOBILE DEVELOPER Unavailable Unavailable Sanjeev, A Nathalie WINDOWS MOBILE DEVELOPER Unavailable Unavailable Sanjeev, A Nathalie WINDOWS MOBILE DEVELOPER Unavailable Unavailable Sanjeev, A Nathalie WINDOWS MOBILE DEVELOPER Unavailable Unavailable Sanjeev, A Nathalie WINDOWS MOBILE DEVELOPER Unavailable Unavailable Sanjeev, A Nathalie WINDOWS MOBILE DEVELOPER Unavailable Unavailable Sanjeev, A Nathalie WINDOWS MOBILE DEVELOPER Unavailable Unavailable Sanjeev, A Nathalie WINDOWS MOBILE DEVELOPER Unavailable Unavailable Sanjeev, A Nathalie WINDOWS MOBILE DEVELOPER Unavailable Unavailable Sanjeev, A Nathalie WINDOWS MOBILE DEVELOPER Unavailable Unavailable Sanjeev, A Nathalie WINDOWS MOBILE DEVELOPER Unavailable Unavailable Sanjeev, A Nathalie WINDOWS MOBILE DEVELOPER Unavailable Unavailable Sanjeev, A Nathalie WINDOWS MOBILE DEVELOPER Unavailable Unavailable Sanjeev, A Nathalie WINDOWS MOBILE DEVELOPER Unavailable Unavailable Sanjeev, A Nathalie WINDOWS MOBILE DEVELOPER Unavailable Unavailable Sanjeev, A Nathalie WINDOWS MOBILE DEVELOPER Unavailable Unavailable Sanjeev, A Nathalie WINDOWS MOBILE DEVELOPER Unavailable Unavailable Sanjeev, A Nathalie WINDOWS MOBILE DEVELOPER Unavailable Unavailable Sanjeev, A Nathalie WINDOWS MOBILE DEVELOPER Unavailable Unavailable Sanjeev, A Nathalie WINDOWS MOBILE DEVELOPER Unavailable Unavailable Sanjeev, A Nathalie WINDOWS MOBILE DEVELOPER Unavailable Unavailable Sanjeev, A Nathalie WINDOWS MOBILE DEVELOPER Unavailable Unavailable Sanjeev, A Nathalie WINDOWS MOBILE DEVELOPER Unavailable Unavailable Sanjeev, A Nathalie WINDOWS MOBILE DEVELOPER Unavailable Unavailable Sharita (Mikhail) Verónica ARAGON Unavailable Unavailable Hiren Perez MD Unavailable Unavailable Pola Meadows MD Unavailable Unavailable Thien COBOS MD Unavailable Unavailable Thien COBOS MD Unavailable Unavailable Thien COBOS MD Unavailable Unavailable Thien COBOS MD Unavailable Unavailable Thien COBOS MD Unavailable Unavailable Thien COBOS MD Unavailable Unavailable Thien COBOS MD Unavailable Unavailable Thien COBOS MD Unavailable Unavailable Thien COBOS MD Unavailable Unavailable Thien COBOS MD Unavailable Unavailable Thien COBOS MD Unavailable Unavailable Thien COBOS MD Unavailable Unavailable Thien COBOS MD Unavailable Unavailable Thien COBOS MD Unavailable Unavailable Thien COBOS MD Unavailable Unavailable Thien COBOS MD Unavailable Unavailable Thien COBOS MD Unavailable Unavailable Thien COBOS MD Unavailable Unavailable Thien COBOS MD Unavailable Unavailable Thien COBOS MD Unavailable Unavailable Thien COBOS MD Unavailable Unavailable Thien COBOS MD Unavailable Unavailable Thien COBOS MD Unavailable Unavailable Thien COBOS MD Unavailable Unavailable Thien COBOS MD Unavailable Unavailable Thien COBOS MD Unavailable Unavailable Thien COBOS MD Unavailable Unavailable Thien COBOS MD Unavailable Unavailable Thien COBOS MD Unavailable Unavailable Thien COBOS MD Unavailable Unavailable Thien COBOS MD Unavailable Unavailable Thien COBOS MD Unavailable Unavailable Thien COBOS MD Unavailable Unavailable TAD ROMANO MD Unavailable Unavailable TAD ROMANO MD Unavailable Unavailable TAD ROMANO MD Unavailable Unavailable TAD ROMANO MD Unavailable Unavailable TAD ROMANO MD Unavailable Unavailable TAD ROMANO MD Unavailable Unavailable TAD ROMANO MD Unavailable Unavailable ELIZABETH, ZECHARIAH ARAGON Unavailable Unavailable ELIZABETH, ZECHARIAH ARAGON Unavailable Unavailable ELIZABETH, ZECHARIAH ARAGON Unavailable Unavailable ELIZABETH, ZECHARIAH ARAGON Unavailable Unavailable ELIZABETH, ZECHARIAH ARAGON Unavailable Unavailable ELIZABETH, ZECHARIAH ARAGON Unavailable Unavailable ELIZABETH, ZECHARIAH ARAGON Unavailable Unavailable ELIZABETH, ZECHARIAH ARAGON Unavailable Unavailable ELIZABETH, ZECHARIAH ARAGON Unavailable Unavailable ELIZABETH, ZECHARIAH ARAGON Unavailable Unavailable ELIZABETH, ZECHARIAH ARAGON Unavailable Unavailable ELIZABETH, ZECHARIAH ARAGON Unavailable Unavailable ELIZABETH, ZECHARIAH ARAGON Unavailable Unavailable ELIZABETH, ZECHARIAH ARAGON Unavailable Unavailable ELIZABETH, ZECHARIAH ARAGON Unavailable Unavailable ELIZABETH, ZECHARIAH ARAGON Unavailable Unavailable ELIZABETH, ZECHARIAH ARAGON Unavailable Unavailable ELIZABETH, ZECHARIAH ARAGON Unavailable Unavailable ELIZABETH, ZECHARIAH ARAGON Unavailable Unavailable ELIZABETH, ZECHARIAH ARAGON Unavailable Unavailable ELIZABETH, ZECHARIAH ARAGON Unavailable Unavailable ELIZABETH, ZECHARIAH ARAGON Unavailable Unavailable ELIZABETH, ZECHARIAH ARAGON Unavailable Unavailable ELIZABETH, ZECHARIAH ARAGON Unavailable Unavailable ELIZABETH, ZECHARIAH ARAGON Unavailable Unavailable ELIZABETH, ZECHARIAH ARAGON Unavailable Unavailable ELIZABETH, ZECHARIAH ARAGON Unavailable Unavailable ELIZABETH, ZECHARIAH ARAGON Unavailable Unavailable ELIZABETH, ZECHARIAH ARAGON Unavailable Unavailable ELIZABETH, ZECHARIAH ARAGON Unavailable Unavailable ELIZABETH, ZECHARIAH ARAGON Unavailable Unavailable ELIZABETH, ZECHARIAH ARAGON Unavailable Unavailable ELIZABETH, ZECHARIAH ARAGON Unavailable Unavailable ELIZABETH, ZECHARIAH ARAGON Unavailable Unavailable ELIZABETH, ZECHARIAH ARAGON Unavailable Unavailable ELIZABETH, ZECHARIAH ARAGON Unavailable Unavailable ELIZABETH, ZECHARIAH ARAGON Unavailable Unavailable ELIZABETH, ZECHARIAH ARAGON Unavailable Unavailable ELIZABETH, ZECHARIAH ARAGON Unavailable Unavailable ELIZABETH, ZECHARIAH ARAGON Unavailable Unavailable ELIZABETH, ZECHARIAH ARAGON Unavailable Unavailable ELIZABETH, ZECHARIAH ARAGON Unavailable Unavailable ELIZABETH, ZECHARIAH ARAGON Unavailable Unavailable ELIZABETH, ZECHARIAH ARAGON Unavailable Unavailable ELIZABETH, ZECHARIAH ARAGON Unavailable Unavailable ELIZABETH, ZECHARIAH ARAGON Unavailable Unavailable ELIZABETH, ZECHARIAH ARAGON Unavailable Unavailable ELIZABETH, ZECHARIAH ARAGON Unavailable Unavailable ELIZABETH, ZECHARIAH ARAGON Unavailable Unavailable ELIZABETH, ZECHARIAH ARAGON Unavailable Unavailable ELIZABETH, ZECHARIAH ARAGON Unavailable Unavailable ELIZABETH, ZECHARIAH ARAGON Unavailable Unavailable PARSHALDoug, John BARTHOLOMEW MD Unavailable Unavailable PARSHALDoug, John BARTHOLOMEW MD Unavailable Unavailable PARSHALDoug, John BARTHOLOMEW MD Unavailable Unavailable PARSHALDoug, John BARTHOLOMEW MD Unavailable Unavailable PARSHALL, John BARTHOLOMEW MD Unavailable Unavailable PARSHALL, John BARTHOLOMEW MD Unavailable Unavailable PARSHALL, John BARTHOLOMEW MD Unavailable Unavailable PARSHALL, John BARTHOLOMEW MD Unavailable Unavailable PARSHALDoug, John BARTHOLOMEW MD Unavailable Unavailable PARSHALDoug, John BARTHOLOMEW MD Unavailable Unavailable PARSHALDoug, John BARTHOLOMEW MD Unavailable Unavailable PARSHALDoug, John BARTHOLOMEW MD Unavailable Unavailable PARSHALL, John BARTHOLOMEW MD Unavailable Unavailable PARSHALL, John BARTHOLOMEW MD Unavailable Unavailable PARSHALL, John BARTHOLOMEW MD Unavailable Unavailable PARSHALL, A FLORIDA ARAGON Unavailable Unavailable PARSHALL, A FLORIDA ARAGON Unavailable Unavailable PARSHALL, A FLORIDA ARAGON Unavailable Unavailable PARSHALL, A FLORIDA ARAGON Unavailable Unavailable PARSHALL, A FLORIDA ARAGON Unavailable Unavailable PARSHALL, A FLORIDA ARAGON Unavailable Unavailable PARSHALL, A FLORIDA ARAGON Unavailable Unavailable PARSHALL, A FLORIDA ARAGON Unavailable Unavailable PARSHALL, A FLORIDA ARAGON Unavailable Unavailable PARSHALL, A FLORIDA ARAGON Unavailable Unavailable PARSHALL, A FLORIDA ARAGON Unavailable Unavailable PARSHALL, A FLORIDA ARAGON Unavailable Unavailable PARSHALL, A FLORIDA ARAGON Unavailable Unavailable Lopez, Ramirez ARAGON Unavailable Unavailable Pisaniello, Polly Carlton MD Unavailable Unavailable Pisaniello, Polly Carlton MD Unavailable Unavailable Pisaniello, Polly Carlton MD Unavailable Unavailable Pisaniello, Polly Carlton MD Unavailable Unavailable Pisaniello, Polly Carlton MD Unavailable Unavailable Pisaniello, Polly Carlton MD Unavailable Unavailable Pisaniello, Polly Carlton MD Unavailable Unavailable Pisaniello, Polly Carlton MD Unavailable Unavailable Pisaniello, Polly Carlton MD Unavailable Unavailable Pisaniello, Polly Carlton MD Unavailable Unavailable Pisaniello, Polly Carlton MD Unavailable Unavailable Pisaniello, Polly Carlton MD Unavailable Unavailable Pisaniello, Polly Carlton MD Unavailable Unavailable Pisaniello, Polly Carlton MD Unavailable Unavailable Pisaniello, Polly Carlton MD Unavailable Unavailable Pisaniello, Polly Carlton MD Unavailable Unavailable Pisaniello, Polly Carlton MD Unavailable Unavailable Pisaniello, Polly Carlton MD Unavailable Unavailable Pisaniello, Polly Carlton MD Unavailable Unavailable Pisaniello, Polly Carlton MD Unavailable Unavailable Pisaniello, Polly Carlton MD Unavailable Unavailable Pisaniello, Polly Carlton MD Unavailable Unavailable Pisaniello, Polly Carlton MD Unavailable Unavailable Pisaniello, Polly Carlton MD Unavailable Unavailable Pisaniello, Polly Cralton MD Unavailable Unavailable Pisaniello, Polly Carlton MD Unavailable Unavailable Pisaniello, Polly Carlton MD Unavailable Unavailable Pisaniello, Polly Carlton MD Unavailable Unavailable Pisaniello, Polly Carlton MD Unavailable Unavailable Pisaniello, Polly Carlton MD Unavailable Unavailable Pisaniello, Polly Carlton MD Unavailable Unavailable Pisaniello, Polly Carlton MD Unavailable Unavailable Pisaniello, Polly Carlton MD Unavailable Unavailable Pisaniello, Polly Carlton MD Unavailable Unavailable Pisaniello, Polly Carlton MD Unavailable Unavailable Pisaniello, Polly Carlton MD Unavailable Unavailable Pisaniello, Polly Carlton MD Unavailable Unavailable Pisaniello, Polly Carlton MD Unavailable Unavailable Pisaniello, Polly Carlton MD Unavailable Unavailable Pisaniello, Polly Carlton MD Unavailable Unavailable Pisaniello, Polly Carlton MD Unavailable Unavailable Pisaniello, Polly Carlton MD Unavailable Unavailable Pisaniello, Polly Carlton MD Unavailable Unavailable Pisaniello, Polly Carlton MD Unavailable Unavailable Pisaniello, Polly Carlton MD Unavailable Unavailable Pisaniello, Polly Carlton MD Unavailable Unavailable Pisaniello, Polly Carlton MD Unavailable Unavailable Pisaniello, Polly Carlton MD Unavailable Unavailable Pisaniello, Polly Carlton MD Unavailable Unavailable Pisaniello, Polly Carlton MD Unavailable Unavailable Pisaniello, Polly Carlton MD Unavailable Unavailable Pisaniello, Polly Carlton MD Unavailable Unavailable Pisaniello, Polly Carlton MD Unavailable Unavailable Pisaniello, Polly Carlton MD Unavailable Unavailable Pisaniello, Polly Carlton MD Unavailable Unavailable Pisaniello, Polly Carlton MD Unavailable Unavailable Pisaniello, Polly Carlton MD Unavailable Unavailable Pisaniello, Polly Carlton MD Unavailable Unavailable Pisaniello, Polly Carlton MD Unavailable Unavailable Pisaniello, Polly Carlton MD Unavailable Unavailable Pisaniello, Polly Carlton MD Unavailable Unavailable Pisaniello, Polly Carlton MD Unavailable Unavailable Niels Valdez MD Unavailable Unavailable Oswald Priest NPP Unavailable Unavailable Oswald Priest NPP Unavailable Unavailable Romulo, Nicol WINDOWS MOBILE DEVELOPER Unavailable Unavailable Romulo, Nicol WINDOWS MOBILE DEVELOPER Unavailable Unavailable Romulo, Nicol WINDOWS MOBILE DEVELOPER Unavailable Unavailable Romulo, Nicol WINDOWS MOBILE DEVELOPER Unavailable Unavailable Romulo, Nicol WINDOWS MOBILE DEVELOPER Unavailable Unavailable Romulo, Nicol WINDOWS MOBILE DEVELOPER Unavailable Unavailable Romulo, Nicol WINDOWS MOBILE DEVELOPER Unavailable Unavailable Romulo, Nicol WINDOWS MOBILE DEVELOPER Unavailable Unavailable Romulo, Nicol WINDOWS MOBILE DEVELOPER Unavailable Unavailable Romulo, Nicol WINDOWS MOBILE DEVELOPER Unavailable Unavailable Romulo, Niocl WINDOWS MOBILE DEVELOPER Unavailable Unavailable Romulo, Nicol WINDOWS MOBILE DEVELOPER Unavailable Unavailable DiBFrancisco mccauley MD Unavailable Unavailable DiBFrancisco mccauley MD Unavailable Unavailable DiBFrancisco mccauley MD Unavailable Unavailable Francisco Edward MD Unavailable Unavailable Francisco Edward MD Unavailable Unavailable Francisco Edward MD Unavailable Unavailable Jalil Elias MD Unavailable Unavailable Jalil Elias MD Unavailable Unavailable Jalil Elias MD Unavailable Unavailable Jalil Elias MD Unavailable Unavailable Jalil Elias MD Unavailable Unavailable Jalil Elias MD Unavailable Unavailable Jalil Elias MD Unavailable Unavailable Jalil Elias MD Unavailable Unavailable Jalil Elias MD Unavailable Unavailable Jalil Elias MD Unavailable Unavailable Jalil Elias MD Unavailable Unavailable Jalil Elias MD Unavailable Unavailable Jalil Elias MD Unavailable Unavailable Jalil Elias MD Unavailable Unavailable Jalil Elias MD Unavailable Unavailable Jalil Elias MD Unavailable Unavailable Jalil Elias MD Unavailable Unavailable Jalil Elias MD Unavailable Unavailable Jalil Elias MD Unavailable Unavailable Jalil Elias MD Unavailable Unavailable Jalil Elias MD Unavailable Unavailable Jalil Elias MD Unavailable Unavailable Jalil Elias MD Unavailable Unavailable Jalil Elias MD Unavailable Unavailable Jalil Elias MD Unavailable Unavailable Jalil Elias MD Unavailable Unavailable Jalil Elias MD Unavailable Unavailable Jalil Elias MD Unavailable Unavailable Jalil Elias MD Unavailable Unavailable Jalil Elias MD Unavailable Unavailable Jalil Elias MD Unavailable Unavailable Jalil Elias MD Unavailable Unavailable Jalil Elias MD Unavailable Unavailable Jalil Elias MD Unavailable Unavailable Jalil Elias MD Unavailable Unavailable Jalil Elias MD Unavailable Unavailable Jalil Elias MD Unavailable Unavailable Jalil Elias MD Unavailable Unavailable Jalil Elias MD Unavailable Unavailable Jalil Elias MD Unavailable Unavailable Birchenough, R Kiersten DO Unavailable Unavailable Birchenough, R Kiersten DO Unavailable Unavailable Birchenough, R Kiersten DO Unavailable Unavailable Birchenough, R Kiersten DO Unavailable Unavailable Birchenough, R Kiersten DO Unavailable Unavailable Birchenough, R Kiersten DO Unavailable Unavailable Birchenough, R Kiersten DO Unavailable Unavailable Birchenough, R Kiersten DO Unavailable Unavailable Birchenough, R Kiersten DO Unavailable Unavailable Birchenough, R Kiersten DO Unavailable Unavailable Birchenough, R Kiersten DO Unavailable Unavailable Birchenough, R Kiersten DO Unavailable Unavailable Birchenough, R Kiersten DO Unavailable Unavailable Birchenough, R Kiersten DO Unavailable Unavailable Keri Duggan MD Unavailable Unavailable Keri Duggan MD Unavailable Unavailable Keri Duggan MD Unavailable Unavailable Keri Duggan MD Unavailable Unavailable Keri Duggan MD Unavailable Unavailable Keri Duggan MD Unavailable Unavailable Keri Duggan MD Unavailable Unavailable Keri Duggan MD Unavailable Unavailable Keri Duggan MD Unavailable Unavailable Keri Duggan MD Unavailable Unavailable Krei Duggan MD Unavailable Unavailable Keri Duggan MD Unavailable Unavailable Keri Duggan MD Unavailable Unavailable Sravani Balderrama Unavailable Unavailable Lynn Jain MD Unavailable Unavailable Stu Dmitriy Unavailable Unavailable KeonDarnell zelaya MD Unavailable Unavailable [facility], YCHANG Unavailable Unavailable GUERRA, M ALCON PA Unavailable Unavailable GUERRA, M ALCON PA Unavailable Unavailable GUERRA, M ALCON PA Unavailable Unavailable GUERRA, M ALCON PA Unavailable Unavailable GUERRA, M ALCON PA Unavailable Unavailable GUERRA, M ALCON PA Unavailable Unavailable GUERRA, M ALCON PA Unavailable Unavailable GUERRA, M ALCON PA Unavailable Unavailable GUERRA, M ALCON PA Unavailable Unavailable GUERRA, M ALCON PA Unavailable Unavailable GUERRA, M ALCON PA Unavailable Unavailable GUERRA, M ALCON PA Unavailable Unavailable GUERRA, M ALCON PA Unavailable Unavailable GUERRA, M ALCON PA Unavailable Unavailable GUERRA, M ALCON PA Unavailable Unavailable GUERRA, M ALCON PA Unavailable Unavailable GUERRA, M ALCON PA Unavailable Unavailable GUERRA, M ALCON PA Unavailable Unavailable GUERRA, M ALCON PA Unavailable Unavailable GUERRA, M ALCON PA Unavailable Unavailable GUERRA, M ALCON PA Unavailable Unavailable GUERRA, M ALCON PA Unavailable Unavailable GUERRA, M ALCON PA Unavailable Unavailable GUERRA, M ALCON PA Unavailable Unavailable GUERRA, M ALCON PA Unavailable Unavailable GUERRA, M ALCON PA Unavailable Unavailable GUERRA, M ALCON PA Unavailable Unavailable GUERRA, M ALCON PA Unavailable Unavailable GUERRA, M ALCON PA Unavailable Unavailable GUERRA, M ALCON PA Unavailable Unavailable GUERRA, M ALCON PA Unavailable Unavailable GUERRA, M ALCON PA Unavailable Unavailable GUERRA, M ALCON PA Unavailable Unavailable Re-disclosure Warning The records that you are about to access may contain information from federally-assisted alcohol or drug abuse programs. If such information is present, then the following federally mandated warning applies: This information has been disclosed to you from records protected by federal confidentiality rules (42 CFR part 2). The federal rules prohibit you from making any further disclosure of this information unless further disclosure is expressly permitted by the written consent of the person to whom it pertains or as otherwise permitted by 42 CFR part 2. A general authorization for the release of medical or other information is NOT sufficient for this purpose. The Federal rules restrict any use of the information to criminally investigate or prosecute any alcohol or drug abuse patient.The records that you are about to access may contain highly sensitive health information, the redisclosure of which is protected by Article 27-F of the [facility] Public Health law. If you continue you may have access to information: Regarding HIV / AIDS; Provided by facilities licensed or operated by the [facility] Office of Mental Health; or Provided by the [facility] Office for People With Developmental Disabilities. If such information is present, then the following [facility] mandated warning applies: This information has been disclosed to you from confidential records which are protected by state law. State law prohibits you from making any further disclosure of this information without the specific written consent of the person to whom it pertains, or as otherwise permitted by law. Any unauthorized further disclosure in violation of state law may result in a fine or senior living sentence or both. A general authorization for the release of medical or other information is NOT sufficient authorization for further disc losure. Allergies and Adverse Reactions Type Description Substance Reaction Status Data Source(s ) Drug allergy latex Latex Rash [facility] Drug allergy ondansetron ondansetron [facility] Drug allergy trimethoprim Trimethoprim [facility] Drug allergy sulfamethoxazole Sulfamethoxazole [facility] Drug allergy cephalexin cephalexin [facility] Drug allergy No Known Drug Allergies No Known Drug Allergies [facility] Family History Family Member Name Family Member Gender Family Member Status Date o f Status Description Data Source(s) Unknown Condition [facility] Condition [facility] Unknown Condition [facility] Condition [facility] Unknown Condition [facility] Condition [facility] Unknown [facility] Unknown Condition [facility] Condition [facility] Unknown Condition [facility] Unknown Condition [facility] Unknown Condition [facility] Unknown Condition [facility] Unknown Condition [facility] Unknown Condition [facility] Unknown Condition [facility] Encounters Encounter Providers Location Date Indications Data Source(s ) Outpatient Attender: Jarret Nazario MDReferrer: ZECHARIAH KRAMER MD 10/09/2020 10:05:00 AM [facility] 10/09/2020 10:36:00 AM EST [facility] Recurring Patient Attender: Cholo EMANUEL JS-JS.MARCELLUS 05/2021 07:54:25 AM EST [facility] Outpatient Attender: Luis Duggan MDReferrer: ZECHARIAH KRAMER MD 10/01/2020 08:41:00 AM [facility] 10/01/2020 09:15:00 AM EST [facility] Outpatient Attender: Jarret Nazario MD 09/27/2020 11:21: 00 AM EST N92.0 [facility] N92.0 Outpatient Attender: Jarret Nazario MDReferrer: ZECHARIAH KRAMER MD 09/27/2020 10:11:00 AM [facility] 09/27/2020 11:05:00 AM EST [facility] Outpatient Attender: ZECHARIAH KRAMER MDReferrer: ZECHARIAH KRAMER MD 09/25/2020 03:11:00 PM [facility] 09/25/2020 03:57:00 PM EST [facility] Emergency Attender: Ramirez Lopez MDAttender: FLORIDA Camacho MD 09/23/2020 06:08:00 PM [facility] 09/23/2020 09:16:00 PM EST ABDOMINAL PAIN [facility] ABDOMINAL PAIN Patient discharged. Outpatient Attender: Hiren Patrick MDAdmitter: Hiren Patrick MD E [id number] 09/19/2020 02:11:32 PM EST [facility] Outpatient Attender: ZECHARIAH KRAMER MD 09/13/2020 12:40:00 PM ES T E66.01 [facility] E66.01 Outpatient Attender: ZECHARIAH KRAMER MDReferrer: ZECHARIAH KRAMER MD 09/11/2020 11:04:00 AM EST [facility] l Emergency Attender: Sravani castro PAAttender: Niels Edward MDConsultant: Niels Edward MD 09/09/2020 10:24:00 P M EST - 09/10/2020 01:21:00 AM EST HEADACHE, NAUSEA, DIZZY [facility] HEADACHE, NAUSEA, DIZZY Patient discharged. Outpatient Attender: Jarret Nazario MD 09/05/2020 11:47: 00 AM EST R19.7 [facility] R19.7 Outpatient Attender: Jarret Nazario MDReferrer: Nicol kendrick NP 09/05/2020 11:10:00 AM EST - 09/05/2020 11:48:00 AM EST [facility] Outpatient Attender: Jarret Nazario MDReferrer: Nicol kendrick NP 09/03/2020 09:28:00 AM EST - 09/03/2020 11:05:00 AM EST [facility] Outpatient Attender: ZECHARIAH KRAMER MDReferrer: Nicol Sebastian NP 09/02/2020 10:06:00 AM EST - 09/02/2020 04:34:00 PM EST [facility] Emergency Attender: Dmitriy Peraza DOAttender: Niels ortiz MD 08/30/2020 06:50:00 PM EST - 08/30/2020 09:08:00 PM EST ABDOMINAL PAIN [facility] ABDOMINAL PAIN Patient discharged. Outpatient Attender: Jarret Nazario MDReferrer: Nicol kendrick NP 08/27/2020 10:07:00 AM EST - 08/27/2020 10:41:00 AM EST [facility] Outpatient Attender: Jarret Nazario MD 06:20:00 AM EST - 08/22/2020 10:05:00 AM EST O02.1/SUCTION D[facility]C [id number] [id number] Patient discharged. Outpatient Attender: Jarret Nazario MDReferrer: Nicol kendrick NP 08/21/2020 10:25:00 AM EST - 08/21/2020 11:32:00 AM EST [facility] Outpatient Attender: Jarret Nazario MD 08/21/2020 10:00:00 AM EST SUBCHORIONIC BLEED [facility] SUBCHORIONIC BLEED Outpatient Attender: [id number] Barrett Sparks MDReferrer: Russell Sebastian NP 08/20/2020 09:00:00 AM [facility] - 08/20/2020 09:20:00 [facility] Attender: Jarret Nazario MDReferrer: Nicol kendrick NP 08/14/2020 09:41:00 AM [facility] - 08/14/2020 11:45:00 AM [facility] Outpatient Attender: Jarret Nazario MD 08/14/2020 09:29: 00 AM EST [facility] PAIN Emergency Attender: Verónica Sheriff MDAt tender: FLORIDA CASTRO MDConsultant: Lynn Jain MD 08/09/2020 06:19:00 PM [facility] - 08/10/2020 05:45:00 AM EST ABDOMINAL PAIN, BLOOD IN URINE/STOOL [facility] ABDOMINAL PAIN, BLOOD IN URINE/STOOL Patient discharged. Emergency Attender: Daljit Alex MDConsultant: Niels castro MD 08/03/2020 01:29:00 PM EST - 08/03/2020 08:21:00 PM EST ABDOMINAL PAIN [facility] ABDOMINAL PAIN Patient discharged. Outpatient Attender: Jaki Elias MD 07/30/2020 09:45:00 AM [facility] Outpatient Attender: Nicol Sebastian NPReferrer: Nicol kendrick NP 07/25/2020 09:54:00 AM EST - 07/25/2020 10:57:00 AM [facility] Outpatient Attender: Nicol Sebastian NPReferrer: Nicol kendrick NP 07/04/2020 11:14:00 AM EST - 07/04/2020 12:47:00 PM EST [facility] Emergency Attender: Verónica Sheriff MD 07/01 08:40:00 PM EST - 07/02/2020 12:20:00 AM EST ABDOMINAL PAIN [facility] ABDOMINAL PAIN Patient discharged. Outpatient Attender: Kiersten Schulz 07/01/2020 09:47 :00 AM EST N91.2 [facility] N91.2 Outpatient Attender: Nicol Sebastian NPReferrer: Nicol kendrick NP 07/01/2020 09:04:00 [facility]: Nicol Sebastian NPReferrer: Nicol kendrick WINDOWS MOBILE DEVELOPER 06/28/2020 03:47:00 PM EST - 06/28/2020 04:33:00 PM EST [facility] Outpatient Attender: ARI Martinez/Charlene/Adeel trujillo/Reindonovan 06/20/2020 11:20:00 AM EDT [facility] ([facility] Outpatient Attender: Jarret Nazario MDReferrer: Nicol kendrick WINDOWS MOBILE DEVELOPER 06/10/2020 09:26:00 AM EDT - 06/10/2020 09:58:00 AM EDT [facility] Outpatient Attender: Nicol Sebastian NPReferrer: Nicol kendrick NP 05/30/2020 10:25:00 AM EDT - 05/30/2020 12:56:00 PM EDT [facility] Outpatient Attender: TRICE CURRY UANT-PXK-BZlqahszd: TRICE AJ APRN-DECK MECHANIC-Nayeli 05/23/2020 08:51:00 AM EDT - 05/23/2020 09:35:00 AM EDT [facility] l Outpatient Attender: TAD Green nder: Verónica Sheriff MDAttender: Niels Valdez MDAdmitter: TAD ROMANO MD 05/18/2020 01:18:00 AM EDT - 05/18/2020 03:40:00 PM EDT C-DIFF COLITIS [facility] l C-DIFF COLITIS Patient discharged. Outpatient Attender: TRICE ALVESDECK MECHANIC-Nayeli 05/17/2020 02:48:00 PM [facility] 05/01/2020 02:03:00 PM ED T [facility] Outpatient Attender: [facility] 05/01/2020 01:58:01 PM ED T [facility] Outpatient Attender: [facility] 05/01/2020 01:57:00 PM ED T [facility] Outpatient Attender: [facility] 05/01/2020 01:49:00 PM ED T [facility] Outpatient Attender: [facility] 05/01/2020 01:32:00 PM ED T [facility] Outpatient Attender: [facility] 05/01/2020 01:31:03 PM ED T [facility] Outpatient Attender: [facility] 05/01/2020 01:31:01 PM ED T [facility] Outpatient Attender: [facility] 05/01/2020 01:30:01 PM ED T [facility] Outpatient Attender: [facility] 05/01/2020 01:28:01 PM ED T [facility] Outpatient Attender: [facility] 05/01/2020 07:44:01 AM ED T [facility] Outpatient Attender: [facility] 05/01/2020 12:02:29 AM ED T [facility] Outpatient Attender: [facility] 04/30/2020 11:49:01 AM ED T [facility] Outpatient Attender: ALCON Martinez/Charlene/Cody/Rein dl 04/18/2020 10:30:00 AM EDT [facility] ([facility] Outpatient Attender: Cole Martinez/Charlene/Cody/Reind l 04/10/2020 09:30:00 AM EDT [facility] ([facility]) Outpatient Attender: TRICE AJ MONTESSORI TEACHER-DECK MECHANIC-C 04/05/2020 09:29:00 AM EDT COUGH J06.9,R10.11,F41.9 [facility] COUGH J06.9,R10.11,F41.9 Outpatient Attender: TRICE CURRY APRN-FNP-CReferrer: TRICE HATHAWAY-Nayeli 03/28/2020 08:01:00 AM EDT - 03/28/2020 08:47:00 AM EDT [facility] l Outpatient Attender: Nathalie Pace NP 03/25/2020 04:08:00 PM EDT J06.9 [facility] J06.9 Outpatient Attender: Nathalie Pace NPReferrer: PEDRO ANIBALJalil AJ MONTESSORI TEACHER-DECK MECHANIC-C 03/25/2020 03:51:00 PM EDT - 03/25/2020 03:52:00 PM EDT [facility] Emergency Attender: Hiren Perez MD 10/2019 08:55:00 AM EDT - 03/25/2020 10:27:00 AM EDT NAUSEA, ABDOMINAL PAIN, COUGH, CHEST PAIN [facility] NAUSEA, ABDOMINAL PAIN, COUGH, CHEST ILIA N Patient discharged. Emergency Attender: Hiren Perez MD 10:18:00 AM EDT - 03/13/2020 11:18:00 AM EDT SORE THROAT,EAR PAIN [facility] SORE THROAT,EAR PAIN Patient discharged. Outpatient Attender: TRICE Gandara r: ZECHARIAH KRAMER MD 03/12/2020 01:22:00 PM EDT - 03/12/2020 03:13:00 PM EDT [facility] Outpatient Attender: Pola Meadows MD 03/12/2020 12:38:00 P M EDT PELVIC PAIN [facility] PELVIC PAIN Outpatient Attender: TRICE HATHAWAY-Nayeli 03/11/2020 12:56:00 PM EDT R10.11 [facility] l R10.11 Outpatient Attender: Pola Meadows MDReferrer: ZECHARIAH KRAMER MD 03/11/2020 11:17:00 AM EDT - 03/11/2020 12:49:00 PM EDT [facility] Outpatient Attender: TRICE Gandara r: ZECHARIAH KRAMER MD 03/11/2020 10:28:00 AM EDT - 03/11/2020 11:13:00 AM EDT [facility] Emergency Attender: FLORIDA CASTRO MD 03/05 03:01:00 PM EDT - 03/05/2020 05:29:00 PM EDT BLOOD IN URINE [facility] BLOOD IN URINE Patient discharged. Emergency Attender: FLORIDA CASTRO MD 03/02 11:34:00 AM EDT - 03/02/2020 02:45:00 PM EDT ABDOMINAL PAIN [facility] ABDOMINAL PAIN Patient discharged. Outpatient Attender: ZECHARIAH KRAMER MD 02/28/2020 07:57:00 AM EDT HEPATOMEGALY/R80.9 [facility] HEPATOMEGALY/R80.9 Outpatient Attender: ZECHARIAH KRAMER MD 02/26/2020 10:54:00 AM EDT E66.01,R16.0,I10,F41.9 [facility] E66.01,R16.0,I10,F41.9 Outpatient Attender: ZECHARIAH KRAMER MD 02/20/2020 11:22:00 AM EDT - 02/20/2020 12:42:00 PM EDT [facility] Outpatient Attender: Bianka Sen MD 02/20/2020 09:12 :00 AM EDT R10.9 [facility] R10.[address], [facility] [id number] 09/05/2019 12:00:00 AM EST [email or web address] ([facility]) Functional Status Medications Medication Brand Name Start Date Product Form Dose Route Admi nistrative Instructions Pharmacy Instructions Status Indications Reaction Description Data Source(s) Albuterol Sulfate 09/25/2020 03:24:20 PM EST 1 INH active [facility] Albuterol Sulfate 09/25/2020 03:24:20 PM EST 1 INH active [facility] Albuterol Sulfate 09/25/2020 03:24:20 PM EST 1 INH active [facility] Sertraline 100 MG Oral Tablet Sertraline 09/23/2020 06:39:55 PM EST 100 MG active [facility] Sertraline 100 MG Oral Tablet Sertraline 09/23/2020 06:39:55 PM EST 100 MG active [facility] Sertraline 100 MG Oral Tablet Sertraline 09/23/2020 06:39:55 PM EST 100 MG active [facility] Sertraline 100 MG Oral Tablet Sertraline 09/23/2020 06:39:55 PM EST 100 MG active [facility] Metoprolol Succinate 09/16/2020 06:07:04 PM EST 50 MG active [facility] Metoprolol Succinate 09/16/2020 06:07:04 PM EST 50 MG active [facility] Metoprolol Succinate 09/16/2020 06:07:04 PM EST 50 MG active [facility] Metoprolol Succinate 09/16/2020 06:07:04 PM EST 50 MG active [facility] Sertraline 100 MG Oral Tablet Sertraline 09/16/2020 06:06:06 PM EST 100 MG completed [facility] Sertraline 100 MG Oral Tablet Sertraline 09/16/2020 06:06:06 PM EST 100 MG completed [facility] Sertraline 100 MG Oral Tablet Sertraline 09/16/2020 06:06:06 PM EST 100 MG completed [facility] Sertraline 100 MG Oral Tablet Sertraline 09/16/2020 06:06:06 PM EST 100 MG completed [facility] Docusate Sodium 50 MG / sennosides, ASSISTED 8.6 MG Oral Tablet Sennosides-Docusate Sodium (Senna With Docusate Sodium) 8.6-50 mg tablet Sennosides-Docusate Sodium (Senna With Docusate Sodium) 8.6-50 mg tablet 09/11/2020 02:13:47 PM EST 1 TAB-CAP active [facility] Docusate Sodium 50 MG / sennosides, ASSISTED 8.6 MG Oral Tablet Sennosides-Docusate Sodium (Senna With Docusate Sodium) 8.6-50 mg tablet Sennosides-Docusate Sodium (Senna With Docusate Sodium) 8.6-50 mg tablet 09/11/2020 02:13:47 PM EST 1 TAB-CAP active [facility] Docusate Sodium 50 MG / sennosides, ASSISTED 8.6 MG Oral Tablet Sennosides-Docusate Sodium (Senna With Docusate Sodium) 8.6-50 mg tablet Sennosides-Docusate Sodium (Senna With Docusate Sodium) 8.6-50 mg tablet 09/11/2020 02:13:47 PM EST 1 TAB-CAP active [facility] Docusate Sodium 50 MG / sennosides, ASSISTED 8.6 MG Oral Tablet Sennosides-Docusate Sodium (Senna With Docusate Sodium) 8.6-50 mg tablet Sennosides-Docusate Sodium (Senna With Docusate Sodium) 8.6-50 mg tablet 09/11/2020 02:13:47 PM EST 1 TAB-CAP active [facility] Docusate Sodium 50 MG / sennosides, ASSISTED 8.6 MG Oral Tablet Sennosides-Docusate Sodium (Senna With Docusate Sodium) 8.6-50 mg tablet Sennosides-Docusate Sodium (Senna With Docusate Sodium) 8.6-50 mg tablet 09/11/2020 02:13:47 PM EST 1 TAB-CAP active [facility] Lactobacillus Combination No.4 09/10/2020 12:56:32 AM EST 3000 MMU CELLS completed [facility] Lactobacillus Combination No.4 09/10/2020 12:56:32 AM EST 3000 MMU CELLS active [facility] Lactobacillus Combination No.4 09/10/2020 12:56:32 AM EST 3000 MMU CELLS active [facility] Lactobacillus Combination No.4 09/10/2020 12:56:32 AM EST 3000 MMU CELLS completed [facility] Lactobacillus Combination No.4 09/10/2020 12:56:32 AM EST 3000 MMU CELLS completed [facility] Lactobacillus Combination No.4 09/10/2020 12:56:32 AM EST 3000 MMU CELLS completed [facility] Ciprofloxacin 500 MG Oral Tablet Ciprofloxacin Hcl Ciproflox acin Hcl 09/10/2020 12:54:15 AM EST 500 MG completed [facility] Ciprofloxacin 500 MG Oral Tablet Ciprofloxacin Hcl Ciproflox acin Hcl 09/10/2020 12:54:15 AM EST 500 MG completed [facility] Ciprofloxacin 500 MG Oral Tablet Ciprofloxacin Hcl Ciproflox acin Hcl 09/10/2020 12:54:15 AM EST 500 MG active [facility] Ciprofloxacin 500 MG Oral Tablet Ciprofloxacin Hcl Ciproflox acin Hcl 09/10/2020 12:54:15 AM EST 500 MG active [facility] Ciprofloxacin 500 MG Oral Tablet Ciprofloxacin Hcl Ciproflox acin Hcl 09/10/2020 12:54:15 AM EST 500 MG completed [facility] Ciprofloxacin 500 MG Oral Tablet Ciprofloxacin Hcl Ciproflox acin Hcl 09/10/2020 12:54:15 AM EST 500 MG completed [facility] Metoclopramide 10 MG Oral Tablet Metoclopramide Hcl (R eglan) 10 mg tablet Metoclopramide Hcl (Reglan) 10 mg tablet 09/05/2020 11:52:37 AM EST 1 0 MG completed [facility] Metoclopramide 10 MG Oral Tablet Metoclopramide Hcl (R eglan) 10 mg tablet Metoclopramide Hcl (Reglan) 10 mg tablet 09/05/2020 11:52:37 AM EST 1 0 MG completed [facility] Metoclopramide 10 MG Oral Tablet Metoclopramide Hcl (R eglan) 10 mg tablet Metoclopramide Hcl (Reglan) 10 mg tablet 09/05/2020 11:52:37 AM EST 1 0 MG active [facility] Metoclopramide 10 MG Oral Tablet Metoclopramide Hcl (R eglan) 10 mg tablet Metoclopramide Hcl (Reglan) 10 mg tablet 09/05/2020 11:52:37 AM EST 1 0 MG completed [facility] Metoclopramide 10 MG Oral Tablet Metoclopramide Hcl (R eglan) 10 mg tablet Metoclopramide Hcl (Reglan) 10 mg tablet 09/05/2020 11:52:37 AM EST 1 0 MG completed [facility] Metoclopramide 10 MG Oral Tablet Metoclopramide Hcl (R eglan) 10 mg tablet Metoclopramide Hcl (Reglan) 10 mg tablet 09/05/2020 11:52:37 AM EST 1 0 MG active [facility] Metronidazole 500 MG Oral Tablet Metronidazole (Flagyl ) 500 mg tablet Metronidazole (Flagyl) 500 mg tablet 09/05/2020 11:45:52 AM EST 500 MG completed [facility] Metronidazole 500 MG Oral Tablet Metronidazole (Flagyl ) 500 mg tablet Metronidazole (Flagyl) 500 mg tablet 09/05/2020 11:45:52 AM EST 500 MG active [facility] Metronidazole 500 MG Oral Tablet Metronidazole (Flagyl ) 500 mg tablet Metronidazole (Flagyl) 500 mg tablet 09/05/2020 11:45:52 AM EST 500 MG completed [facility] Metronidazole 500 MG Oral Tablet Metronidazole (Flagyl ) 500 mg tablet Metronidazole (Flagyl) 500 mg tablet 09/05/2020 11:45:52 AM EST 500 MG active [facility] Metronidazole 500 MG Oral Tablet Metronidazole (Flagyl ) 500 mg tablet Metronidazole (Flagyl) 500 mg tablet 09/05/2020 11:45:52 AM EST 500 MG completed [facility] Metronidazole 500 MG Oral Tablet Metronidazole (Flagyl ) 500 mg tablet Metronidazole (Flagyl) 500 mg tablet 09/05/2020 11:45:52 AM EST 500 MG completed [facility] Metoprolol Succinate 09/03/2020 11:13:15 AM EST 50 MG completed [facility] Metoprolol Succinate 09/03/2020 11:13:15 AM EST 50 MG active [facility] Metoprolol Succinate 09/03/2020 11:13:15 AM EST 50 MG completed [facility] Metoprolol Succinate 09/03/2020 11:13:15 AM EST 50 MG completed [facility] Metoprolol Succinate 09/03/2020 11:13:15 AM EST 50 MG completed [facility] Metoprolol Succinate 09/03/2020 11:13:15 AM EST 50 MG completed [facility] Metoprolol Succinate 09/03/2020 11:13:15 AM EST 50 MG completed [facility] Meclizine Hydrochloride 25 MG Oral Tablet Meclizine 2020 10:36:46 AM EST 25 MG completed [facility] Meclizine Hydrochloride 25 MG Oral Tablet Meclizine 2020 10:36:46 AM EST 25 MG active [facility] Meclizine Hydrochloride 25 MG Oral Tablet Meclizine 2020 10:36:46 AM EST 25 MG completed [facility] Meclizine Hydrochloride 25 MG Oral Tablet Meclizine 2020 10:36:46 AM EST 25 MG active [facility] Meclizine Hydrochloride 25 MG Oral Tablet Meclizine 2020 10:36:46 AM EST 25 MG completed [facility] Meclizine Hydrochloride 25 MG Oral Tablet Meclizine 2020 10:36:46 AM EST 25 MG completed [facility] Meclizine Hydrochloride 25 MG Oral Tablet Meclizine 2020 10:36:46 AM EST 25 MG active [facility] Meclizine Hydrochloride 25 MG Oral Tablet Meclizine 2020 10:36:46 AM EST 25 MG completed [facility] Ascorbic Acid 500 MG Oral Tablet Ascorbic Acid (Vitami n C) Ascorbic Acid (Vitamin C) 08/30/2020 08:57:54 PM EST 500 MG active [facility] Ascorbic Acid 500 MG Oral Tablet Ascorbic Acid (Vitami n C) Ascorbic Acid (Vitamin C) 08/30/2020 08:57:54 PM EST 500 MG active [facility] Ascorbic Acid 500 MG Oral Tablet Ascorbic Acid (Vitami n C) Ascorbic Acid (Vitamin C) 08/30/2020 08:57:54 PM EST 500 MG active [facility] Ascorbic Acid 500 MG Oral Tablet Ascorbic Acid (Vitami n C) Ascorbic Acid (Vitamin C) 08/30/2020 08:57:54 PM EST 500 MG active [facility] Ascorbic Acid 500 MG Oral Tablet Ascorbic Acid (Vitami n C) Ascorbic Acid (Vitamin C) 08/30/2020 08:57:54 PM EST 500 MG completed [facility] Ascorbic Acid 500 MG Oral Tablet Ascorbic Acid (Vitami n C) Ascorbic Acid (Vitamin C) 08/30/2020 08:57:54 PM EST 500 MG completed [facility] Ascorbic Acid 500 MG Oral Tablet Ascorbic Acid (Vitami n C) Ascorbic Acid (Vitamin C) 08/30/2020 08:57:54 PM EST 500 MG completed [facility] Ascorbic Acid 500 MG Oral Tablet Ascorbic Acid (Vitami n C) Ascorbic Acid (Vitamin C) 08/30/2020 08:57:54 PM EST 500 MG active [facility] [facility] Ascorbic Acid 500 MG Oral Tablet Ascorbic Acid (Vitami n C) Ascorbic Acid (Vitamin C) 08/30/2020 08:57:54 PM EST 500 MG active [facility] Ascorbic Acid 500 MG Oral Tablet Ascorbic Acid (Vitami n C) Ascorbic Acid (Vitamin C) 08/30/2020 08:57:54 PM EST 500 MG active [facility] ferrous sulfate 325 MG Oral Tablet [facility] Sulfate (Feosol) 325 mg (65 mg iron) tablet Ferrous Sulfate (Feosol) 325 mg (65 mg iron) tablet 08:57:22 PM EST 325 MG active [facility] ferrous sulfate 325 MG Oral Tablet [facility] Sulfate (Feosol) 325 mg (65 mg iron) tablet Ferrous Sulfate (Feosol) 325 mg (65 mg iron) tablet 08:57:22 PM EST 325 MG active [facility] ferrous sulfate 325 MG Oral Tablet [facility] Sulfate (Feosol) 325 mg (65 mg iron) tablet Ferrous Sulfate (Feosol) 325 mg (65 mg iron) tablet 08:57:22 PM EST 325 MG active [facility] ferrous sulfate 325 MG Oral Tablet [facility] Sulfate (Feosol) 325 mg (65 mg iron) tablet Ferrous Sulfate (Feosol) 325 mg (65 mg iron) tablet 08:57:22 PM EST 325 MG active [facility] ferrous sulfate 325 MG Oral Tablet [facility] Sulfate (Feosol) 325 mg (65 mg iron) tablet Ferrous Sulfate (Feosol) 325 mg (65 mg iron) tablet 08:57:22 PM EST 325 MG active [facility] ferrous sulfate 325 MG Oral Tablet [facility] Sulfate (Feosol) 325 mg (65 mg iron) tablet Ferrous Sulfate (Feosol) 325 mg (65 mg iron) tablet 08:57:22 PM EST 325 MG active [facility] ferrous sulfate 325 MG Oral Tablet [facility] Sulfate (Feosol) 325 mg (65 mg iron) tablet Ferrous Sulfate (Feosol) 325 mg (65 mg iron) tablet 08:57:22 PM EST 325 MG active [facility] ferrous sulfate 325 MG Oral Tablet [facility] Sulfate (Feosol) 325 mg (65 mg iron) tablet Ferrous Sulfate (Feosol) 325 mg (65 mg iron) tablet 08:57:22 PM EST 325 MG active [facility] ferrous sulfate 325 MG Oral Tablet [facility] Sulfate (Feosol) 325 mg (65 mg iron) tablet Ferrous Sulfate (Feosol) 325 mg (65 mg iron) tablet 08:57:22 PM EST 325 MG active [facility] ferrous sulfate 325 MG Oral Tablet [facility] Sulfate (Feosol) 325 mg (65 mg iron) tablet Ferrous Sulfate (Feosol) 325 mg (65 mg iron) tablet 08:57:22 PM EST 325 MG active [facility] Ciprofloxacin 250 MG Oral Tablet Ciprofloxacin Hcl Ciproflox acin Hcl 08/30/2020 08:57:06 PM EST 250 MG completed [facility] Ciprofloxacin 250 MG Oral Tablet Ciprofloxacin Hcl Ciproflox acin Hcl 08/30/2020 08:57:06 PM EST 250 MG completed [facility] Ciprofloxacin 250 MG Oral Tablet Ciprofloxacin Hcl Ciproflox acin Hcl 08/30/2020 08:57:06 PM EST 250 MG completed [facility] Ciprofloxacin 250 MG Oral Tablet Ciprofloxacin Hcl Ciproflox acin Hcl 08/30/2020 08:57:06 PM EST 250 MG completed [facility] Ciprofloxacin 250 MG Oral Tablet Ciprofloxacin Hcl Ciproflox acin Hcl 08/30/2020 08:57:06 PM EST 250 MG [facility] Ciprofloxacin 250 MG Oral Tablet Ciprofloxacin Hcl Ciproflox acin Hcl 08/30/2020 08:57:06 PM EST 250 MG [facility] Ciprofloxacin 250 MG Oral Tablet Ciprofloxacin Hcl Ciproflox acin Hcl 08/30/2020 08:57:06 PM EST 250 MG [facility] Ciprofloxacin 250 MG Oral Tablet Ciprofloxacin Hcl Ciproflox acin Hcl 08/30/2020 08:57:06 PM EST 250 MG [facility] Ciprofloxacin 250 MG Oral Tablet Ciprofloxacin Hcl Ciproflox acin Hcl 08/30/2020 08:57:06 PM EST 250 MG [facility] Ciprofloxacin 250 MG Oral Tablet Ciprofloxacin Hcl Ciproflox acin Hcl 08/30/2020 08:57:06 PM EST 250 MG active [facility] Drospirenone-Ethinyl Estradiol (Ruma (28)) 3-0.03 mg table t 08/27/2020 10:45:44 AM EST 1 TAB active [facility] Drospirenone-Ethinyl Estradiol (Ruma (28)) 3-0.03 mg table t 08/27/2020 10:45:44 AM EST 1 TAB active [facility] Drospirenone-Ethinyl Estradiol (Ruma (28)) 3-0.03 mg table t 08/27/2020 10:45:44 AM EST 1 TAB active [facility] Drospirenone-Ethinyl Estradiol (Ruma (28)) 3-0.03 mg table t 08/27/2020 10:45:44 AM EST 1 TAB active [facility] Drospirenone-Ethinyl Estradiol (Ruma (28)) 3-0.03 mg table t 08/27/2020 10:45:44 AM EST 1 TAB active [facility] Drospirenone-Ethinyl Estradiol (Ruma (28)) 3-0.03 mg table t 08/27/2020 10:45:44 AM EST 1 TAB completed [facility] Drospirenone-Ethinyl Estradiol (Ruma (28)) 3-0.03 mg table t 08/27/2020 10:45:44 AM EST 1 TAB completed [facility] Drospirenone-Ethinyl Estradiol (Ruma (28)) 3-0.03 mg table t 08/27/2020 10:45:44 AM EST 1 TAB completed [facility] Drospirenone-Ethinyl Estradiol (Ruma (28)) 3-0.03 mg table t 08/27/2020 10:45:44 AM EST 1 TAB completed [facility] Drospirenone-Ethinyl Estradiol (Ruma (28)) 3-0.03 mg table t 08/27/2020 10:45:44 AM EST 1 TAB active [facility] Psyllium 14.2 MG/ML Oral Suspension [Metamucil] Metamucil 08/26/2020 12:00:00 AM EST ORAL active [facility] ([facility], ) Psyllium 500 MG Oral Capsule [Metamucil] Metamucil 08/26/2020 12 :00:00 AM EST ORAL [facility] Sertraline 100 MG Oral Tablet Sertraline 08/22/2020 06:55:18 AM EST 100 MG active [facility] 120 ACTUAT Budesonide 0.08 MG/ACTUAT / f ormoterol fumarate 0.0045 MG/ACTUAT Metered Dose Inhaler Budesonide-Formoterol Budesonide-Formoterol 08/22/2020 06:55:18 AM EST 2 PUFFS active [facility] Sertraline 100 MG Oral Tablet Sertraline 08/22/2020 06:55:18 AM EST 100 MG active [facility] Metoprolol Succinate 08/22/2020 06:55:18 AM EST 50 MG completed [facility] Metoprolol Succinate 08/22/2020 06:55:18 AM EST 50 MG active [facility] Sertraline 100 MG Oral Tablet Sertraline 08/22/2020 06:55:18 AM EST 100 MG active [facility] 120 ACTUAT Budesonide 0.08 MG/ACTUAT / f ormoterol fumarate 0.0045 MG/ACTUAT Metered Dose Inhaler Budesonide-Formoterol Budesonide-Formoterol 08/22/2020 06:55:18 AM EST 2 PUFFS active [facility] Sertraline 100 MG Oral Tablet Sertraline 08/22/2020 06:55:18 AM EST 100 MG active [facility] 120 ACTUAT Budesonide 0.08 MG/ACTUAT / f ormoterol fumarate 0.0045 MG/ACTUAT Metered Dose Inhaler Budesonide-Formoterol Budesonide-Formoterol 08/22/2020 06:55:18 AM EST 2 PUFFS active [facility] Sertraline 100 MG Oral Tablet Sertraline 08/22/2020 06:55:18 AM EST 100 MG completed [facility] 120 ACTUAT Budesonide 0.08 MG/ACTUAT / f ormoterol fumarate 0.0045 MG/ACTUAT Metered Dose Inhaler Budesonide-Formoterol Budesonide-Formoterol 08/22/2020 06:55:18 AM EST 2 PUFFS completed [facility] Metoprolol Succinate 08/22/2020 06:55:18 AM EST 50 MG active [facility] Metoprolol Succinate 08/22/2020 06:55:18 AM EST 50 MG completed [facility] 120 ACTUAT Budesonide 0.08 MG/ACTUAT / f ormoterol fumarate 0.0045 MG/ACTUAT Metered Dose Inhaler Budesonide-Formoterol Budesonide-Formoterol 08/22/2020 06:55:18 AM EST 2 PUFFS active [facility] Metoprolol Succinate 08/22/2020 06:55:18 AM EST 50 MG completed [facility] 120 ACTUAT Budesonide 0.08 MG/ACTUAT / f ormoterol fumarate 0.0045 MG/ACTUAT Metered Dose Inhaler Budesonide-Formoterol Budesonide-Formoterol 08/22/2020 06:55:18 AM EST 2 PUFFS completed [facility] Metoprolol Succinate 08/22/2020 06:55:18 AM EST 50 MG completed [facility] Metoprolol Succinate 08/22/2020 06:55:18 AM EST 50 MG completed [facility] Sertraline 100 MG Oral Tablet Sertraline 08/22/2020 06:55:18 AM EST 100 MG completed [facility] Sertraline 100 MG Oral Tablet Sertraline 08/22/2020 06:55:18 AM EST 100 MG completed [facility] Sertraline 100 MG Oral Tablet Sertraline 08/22/2020 06:55:18 AM EST 100 MG active [facility] Sertraline 100 MG Oral Tablet Sertraline 08/22/2020 06:55:18 AM EST 100 MG active [facility] 120 ACTUAT Budesonide 0.08 MG/ACTUAT / f ormoterol fumarate 0.0045 MG/ACTUAT Metered Dose Inhaler Budesonide-Formoterol Budesonide-Formoterol 08/22/2020 06:55:18 AM EST 2 PUFFS active [facility] 120 ACTUAT Budesonide 0.08 MG/ACTUAT / f ormoterol fumarate 0.0045 MG/ACTUAT Metered Dose Inhaler Budesonide-Formoterol Budesonide-Formoterol 08/22/2020 06:55:18 AM EST 2 PUFFS completed [facility] 120 ACTUAT Budesonide 0.08 MG/ACTUAT / f ormoterol fumarate 0.0045 MG/ACTUAT Metered Dose Inhaler Budesonide-Formoterol Budesonide-Formoterol 08/22/2020 06:55:18 AM EST 2 PUFFS completed [facility] 120 ACTUAT Budesonide 0.08 MG/ACTUAT / f ormoterol fumarate 0.0045 MG/ACTUAT Metered Dose Inhaler Budesonide-Formoterol Budesonide-Formoterol 08/22/2020 06:55:18 AM EST 2 PUFFS active [facility] Metoprolol Succinate 08/22/2020 06:55:18 AM EST 50 MG completed [facility] Metoprolol Succinate 08/22/2020 06:55:18 AM EST 50 MG active [facility] 120 ACTUAT Budesonide 0.08 MG/ACTUAT / f ormoterol fumarate 0.0045 MG/ACTUAT Metered Dose Inhaler Budesonide-Formoterol Budesonide-Formoterol 08/22/2020 06:55:18 AM EST 2 PUFFS active [facility] Sertraline 100 MG Oral Tablet Sertraline 08/22/2020 06:55:18 AM EST 100 MG active [facility] 120 ACTUAT Budesonide 0.08 MG/ACTUAT / f ormoterol fumarate 0.0045 MG/ACTUAT Metered Dose Inhaler Budesonide-Formoterol Budesonide-Formoterol 08/22/2020 06:55:18 AM EST 2 PUFFS active [facility] Metoprolol Succinate 08/22/2020 06:55:18 AM EST 50 MG active [facility] Metoprolol Succinate 08/22/2020 06:55:18 AM EST 50 MG active [facility] Sertraline 100 MG Oral Tablet Sertraline 08/22/2020 06:55:18 AM EST 100 MG active [facility] Metoprolol Succinate 08/22/2020 06:55:18 AM EST 50 MG completed [facility] Sertraline 100 MG Oral Tablet Sertraline 08/22/2020 06:55:18 AM EST 100 MG completed [facility] Sertraline 100 MG Oral Tablet Sertraline 08/19/2020 08:31:21 AM EST 100 MG active [facility] Sertraline 100 MG Oral Tablet Sertraline 08/19/2020 08:31:21 AM EST 100 MG completed [facility] Sertraline 100 MG Oral Tablet Sertraline 08/19/2020 08:31:21 AM EST 100 MG completed [facility] Sertraline 100 MG Oral Tablet Sertraline 08/19/2020 08:31:21 AM EST 100 MG completed [facility] Sertraline 100 MG Oral Tablet Sertraline 08/19/2020 08:31:21 AM EST 100 MG completed [facility] Sertraline 100 MG Oral Tablet Sertraline 08/19/2020 08:31:21 AM EST 100 MG completed [facility] Sertraline 100 MG Oral Tablet Sertraline 08/19/2020 08:31:21 AM EST 100 MG completed [facility] Sertraline 100 MG Oral Tablet Sertraline 08/19/2020 08:31:21 AM EST 100 MG completed [facility] Sertraline 100 MG Oral Tablet Sertraline 08/19/2020 08:31:21 AM EST 100 MG completed [facility] Sertraline 100 MG Oral Tablet Sertraline 08/19/2020 08:31:21 AM EST 100 MG completed [facility] Sertraline 100 MG Oral Tablet Sertraline 08/19/2020 08:31:21 AM EST 100 MG completed [facility] Sertraline 100 MG Oral Tablet Sertraline 08/19/2020 08:31:21 AM EST 100 MG active [facility] Sertraline 100 MG Oral Tablet Sertraline 08/19/2020 08:31:21 AM EST 100 MG completed [facility] Sertraline 100 MG Oral Tablet Sertraline 08/19/2020 08:31:21 AM EST 100 MG completed [facility] doxylamine succinate 25 MG Oral Tablet D oxylamine Succinate (Unisom (Doxylamine)) 25 mg Tablet Doxylamine Succinate (Unisom (Doxylamine )) 25 mg Tablet 08/09/2020 06:34:54 PM EST 25 MG completed [facility] Hydroxyzine Hydrochloride 25 MG Oral Tablet Hydroxyzine Hcl Hydroxyzine Hcl 08/09/2020 06:34:54 PM EST 25 MG completed [facility] doxylamine succinate 25 MG Oral Tablet D oxylamine Succinate (Unisom (Doxylamine)) 25 mg Tablet Doxylamine Succinate (Unisom (Doxylamine )) 25 mg Tablet 08/09/2020 06:34:54 PM EST 25 MG completed [facility] doxylamine succinate 25 MG Oral Tablet D oxylamine Succinate (Unisom (Doxylamine)) 25 mg Tablet Doxylamine Succinate (Unisom (Doxylamine )) 25 mg Tablet 08/09/2020 06:34:54 PM EST 25 MG completed [facility] doxylamine succinate 25 MG Oral Tablet D oxylamine Succinate (Unisom (Doxylamine)) 25 mg Tablet Doxylamine Succinate (Unisom (Doxylamine )) 25 mg Tablet 08/09/2020 06:34:54 PM EST 25 MG completed [facility] Hydroxyzine Hydrochloride 25 MG Oral Tablet Hydroxyzine Hcl Hydroxyzine Hcl 08/09/2020 06:34:54 PM EST 25 MG completed [facility] doxylamine succinate 25 MG Oral Tablet D oxylamine Succinate (Unisom (Doxylamine)) 25 mg Tablet Doxylamine Succinate (Unisom (Doxylamine )) 25 mg Tablet 08/09/2020 06:34:54 PM EST 25 MG completed [facility] Hydroxyzine Hydrochloride 25 MG Oral Tablet Hydroxyzine Hcl Hydroxyzine Hcl 08/09/2020 06:34:54 PM EST 25 MG completed [facility] doxylamine succinate 25 MG Oral Tablet D oxylamine Succinate (Unisom (Doxylamine)) 25 mg Tablet Doxylamine Succinate (Unisom (Doxylamine )) 25 mg Tablet 08/09/2020 06:34:54 PM EST 25 MG completed [facility] Hydroxyzine Hydrochloride 25 MG Oral Tablet Hydroxyzine Hcl Hydroxyzine Hcl 08/09/2020 06:34:54 PM EST 25 MG active [facility] Hydroxyzine Hydrochloride 25 MG Oral Tablet Hydroxyzine Hcl Hydroxyzine Hcl 08/09/2020 06:34:54 PM EST 25 MG completed [facility] doxylamine succinate 25 MG Oral Tablet D oxylamine Succinate (Unisom (Doxylamine)) 25 mg Tablet Doxylamine Succinate (Unisom (Doxylamine )) 25 mg Tablet 08/09/2020 06:34:54 PM EST 25 MG active [facility] Hydroxyzine Hydrochloride 25 MG Oral Tablet Hydroxyzine Hcl Hydroxyzine Hcl 08/09/2020 06:34:54 PM EST 25 MG completed [facility] doxylamine succinate 25 MG Oral Tablet D oxylamine Succinate (Unisom (Doxylamine)) 25 mg Tablet Doxylamine Succinate (Unisom (Doxylamine )) 25 mg Tablet 08/09/2020 06:34:54 PM EST 25 MG active [facility] Hydroxyzine Hydrochloride 25 MG Oral Tablet Hydroxyzine Hcl Hydroxyzine Hcl 08/09/2020 06:34:54 PM EST 25 MG completed [facility] doxylamine succinate 25 MG Oral Tablet D oxylamine Succinate (Unisom (Doxylamine)) 25 mg Tablet Doxylamine Succinate (Unisom (Doxylamine )) 25 mg Tablet 08/09/2020 06:34:54 PM EST 25 MG completed [facility] doxylamine succinate 25 MG Oral Tablet D oxylamine Succinate (Unisom (Doxylamine)) 25 mg Tablet Doxylamine Succinate (Unisom (Doxylamine )) 25 mg Tablet 08/09/2020 06:34:54 PM EST 25 MG completed [facility] Hydroxyzine Hydrochloride 25 MG Oral Tablet Hydroxyzine Hcl Hydroxyzine Hcl 08/09/2020 06:34:54 PM EST 25 MG completed [facility] Hydroxyzine Hydrochloride 25 MG Oral Tablet Hydroxyzine Hcl Hydroxyzine Hcl 08/09/2020 06:34:54 PM EST 25 MG active [facility] doxylamine succinate 25 MG Oral Tablet D oxylamine Succinate (Unisom (Doxylamine)) 25 mg Tablet Doxylamine Succinate (Unisom (Doxylamine )) 25 mg Tablet 08/09/2020 06:34:54 PM EST 25 MG active [facility] Hydroxyzine Hydrochloride 25 MG Oral Tablet Hydroxyzine Hcl Hydroxyzine Hcl 08/09/2020 06:34:54 PM EST 25 MG completed [facility] Hydroxyzine Hydrochloride 25 MG Oral Tablet Hydroxyzine Hcl Hydroxyzine Hcl 08/09/2020 06:34:54 PM EST 25 MG completed [facility] doxylamine succinate 25 MG Oral Tablet D oxylamine Succinate (Unisom (Doxylamine)) 25 mg Tablet Doxylamine Succinate (Unisom (Doxylamine )) 25 mg Tablet 08/09/2020 06:34:54 PM EST 25 MG completed [facility] doxylamine succinate 25 MG Oral Tablet D oxylamine Succinate (Unisom (Doxylamine)) 25 mg Tablet Doxylamine Succinate (Unisom (Doxylamine )) 25 mg Tablet 08/09/2020 06:34:54 PM EST 25 MG active [facility] Hydroxyzine Hydrochloride 25 MG Oral Tablet Hydroxyzine Hcl Hydroxyzine Hcl 08/09/2020 06:34:54 PM EST 25 MG completed [facility] Hydroxyzine Hydrochloride 25 MG Oral Tablet Hydroxyzine Hcl Hydroxyzine Hcl 08/09/2020 06:34:54 PM EST 25 MG completed [facility] Hydroxyzine Hydrochloride 25 MG Oral Tablet Hydroxyzine Hcl Hydroxyzine Hcl 08/09/2020 06:34:54 PM EST 25 MG completed [facility] doxylamine succinate 25 MG Oral Tablet D oxylamine Succinate (Unisom (Doxylamine)) 25 mg Tablet Doxylamine Succinate (Unisom (Doxylamine )) 25 mg Tablet 08/09/2020 06:34:54 PM EST 25 MG completed [facility] doxylamine succinate 25 MG Oral Tablet D oxylamine Succinate (Unisom (Doxylamine)) 25 mg Tablet Doxylamine Succinate (Unisom (Doxylamine )) 25 mg Tablet 08/09/2020 06:34:54 PM EST 25 MG completed [facility] Hydroxyzine Hydrochloride 25 MG Oral Tablet Hydroxyzine Hcl Hydroxyzine Hcl 08/09/2020 06:34:54 PM EST 25 MG completed [facility] Hydroxyzine Hydrochloride 25 MG Oral Tablet Hydroxyzine Hcl Hydroxyzine Hcl 08/09/2020 06:34:54 PM EST 25 MG completed [facility] doxylamine succinate 25 MG Oral Tablet D oxylamine Succinate (Unisom (Doxylamine)) 25 mg Tablet Doxylamine Succinate (Unisom (Doxylamine )) 25 mg Tablet 08/09/2020 06:34:54 PM EST 25 MG active [facility] Pyridoxine Hydrochloride 25 MG Oral Tabl et Pyridoxine (Vitamin B6) (Vitamin B-6) 25 mg tablet Pyridoxine (Vitamin B6) (Vitamin B-6) 25 mg tablet 09:27:26 AM EST 25 MG completed [facility] Pyridoxine Hydrochloride 25 MG Oral Tabl et Pyridoxine (Vitamin B6) (Vitamin B-6) 25 mg tablet Pyridoxine (Vitamin B6) (Vitamin B-6) 25 mg tablet 09:27:26 AM EST 25 MG completed [facility] Pyridoxine Hydrochloride 25 MG Oral Tabl et Pyridoxine (Vitamin B6) (Vitamin B-6) 25 mg tablet Pyridoxine (Vitamin B6) (Vitamin B-6) 25 mg tablet 09:27:26 AM EST 25 MG completed [facility] Pyridoxine Hydrochloride 25 MG Oral Tabl et Pyridoxine (Vitamin B6) (Vitamin B-6) 25 mg tablet Pyridoxine (Vitamin B6) (Vitamin B-6) 25 mg tablet 09:27:26 AM EST 25 MG completed [facility] Pyridoxine Hydrochloride 25 MG Oral Tabl et Pyridoxine (Vitamin B6) (Vitamin B-6) 25 mg tablet Pyridoxine (Vitamin B6) (Vitamin B-6) 25 mg tablet 09:27:26 AM EST 25 MG [facility] Pyridoxine Hydrochloride 25 MG Oral Tabl et Pyridoxine (Vitamin B6) (Vitamin B-6) 25 mg tablet Pyridoxine (Vitamin B6) (Vitamin B-6) 25 mg tablet 09:27:26 AM EST 25 MG active [facility] Pyridoxine Hydrochloride 25 MG Oral Tabl et Pyridoxine (Vitamin B6) (Vitamin B-6) 25 mg tablet Pyridoxine (Vitamin B6) (Vitamin B-6) 25 mg tablet 09:27:26 AM EST 25 MG completed [facility] Pyridoxine Hydrochloride 25 MG Oral Tabl et Pyridoxine (Vitamin B6) (Vitamin B-6) 25 mg tablet Pyridoxine (Vitamin B6) (Vitamin B-6) 25 mg tablet 09:27:26 AM EST 25 MG completed [facility] Pyridoxine Hydrochloride 25 MG Oral Tabl et Pyridoxine (Vitamin B6) (Vitamin B-6) 25 mg tablet Pyridoxine (Vitamin B6) (Vitamin B-6) 25 mg tablet 09:27:26 AM EST 25 MG completed [facility] Pyridoxine Hydrochloride 25 MG Oral Tabl et Pyridoxine (Vitamin B6) (Vitamin B-6) 25 mg tablet Pyridoxine (Vitamin B6) (Vitamin B-6) 25 mg tablet 09:27:26 AM EST 25 MG completed [facility] Pyridoxine Hydrochloride 25 MG Oral Tabl et Pyridoxine (Vitamin B6) (Vitamin B-6) 25 mg tablet Pyridoxine (Vitamin B6) (Vitamin B-6) 25 mg tablet 09:27:26 AM EST 25 MG completed [facility] Pyridoxine Hydrochloride 25 MG Oral Tabl et Pyridoxine (Vitamin B6) (Vitamin B-6) 25 mg tablet Pyridoxine (Vitamin B6) (Vitamin B-6) 25 mg tablet 09:27:26 AM EST 25 MG completed [facility] Pyridoxine Hydrochloride 25 MG Oral Tabl et Pyridoxine (Vitamin B6) (Vitamin B-6) 25 mg tablet Pyridoxine (Vitamin B6) (Vitamin B-6) 25 mg tablet 09:27:26 AM EST 25 MG completed [facility] Pyridoxine Hydrochloride 25 MG Oral Tabl et Pyridoxine (Vitamin B6) (Vitamin B-6) 25 mg tablet Pyridoxine (Vitamin B6) (Vitamin B-6) 25 mg tablet 09:27:26 AM EST 25 MG completed [facility] Pyridoxine Hydrochloride 25 MG Oral Tabl et Pyridoxine (Vitamin B6) (Vitamin B-6) 25 mg tablet Pyridoxine (Vitamin B6) (Vitamin B-6) 25 mg tablet 09:27:26 AM EST 25 MG completed [facility] Pyridoxine Hydrochloride 25 MG Oral Tabl et Pyridoxine (Vitamin B6) (Vitamin B-6) 25 mg tablet Pyridoxine (Vitamin B6) (Vitamin B-6) 25 mg tablet 09:27:26 AM EST 25 MG completed [facility] 120 ACTUAT Budesonide 0.08 MG/ACTUAT / f ormoterol fumarate 0.0045 MG/ACTUAT Metered Dose Inhaler Budesonide-Formoterol Budesonide-Formoterol 08/06/2020 08:27:01 AM EST 2 PUFFS completed [facility] 120 ACTUAT Budesonide 0.08 MG/ACTUAT / f ormoterol fumarate 0.0045 MG/ACTUAT Metered Dose Inhaler Budesonide-Formoterol Budesonide-Formoterol 08/06/2020 08:27:01 AM EST 2 PUFFS completed [facility] 120 ACTUAT Budesonide 0.08 MG/ACTUAT / f ormoterol fumarate 0.0045 MG/ACTUAT Metered Dose Inhaler Budesonide-Formoterol Budesonide-Formoterol 08/06/2020 08:27:01 AM EST 2 PUFFS completed [facility] 120 ACTUAT Budesonide 0.08 MG/ACTUAT / f ormoterol fumarate 0.0045 MG/ACTUAT Metered Dose Inhaler Budesonide-Formoterol Budesonide-Formoterol 08/06/2020 08:27:01 AM EST 2 PUFFS completed [facility] 120 ACTUAT Budesonide 0.08 MG/ACTUAT / f ormoterol fumarate 0.0045 MG/ACTUAT Metered Dose Inhaler Budesonide-Formoterol Budesonide-Formoterol 08/06/2020 08:27:01 AM EST 2 PUFFS completed [facility] 120 ACTUAT Budesonide 0.08 MG/ACTUAT / f ormoterol fumarate 0.0045 MG/ACTUAT Metered Dose Inhaler Budesonide-Formoterol Budesonide-Formoterol 08/06/2020 08:27:01 AM EST 2 PUFFS completed [facility] 120 ACTUAT Budesonide 0.08 MG/ACTUAT / f ormoterol fumarate 0.0045 MG/ACTUAT Metered Dose Inhaler Budesonide-Formoterol Budesonide-Formoterol 08/06/2020 08:27:01 AM EST 2 PUFFS completed [facility] 120 ACTUAT Budesonide 0.08 MG/ACTUAT / f ormoterol fumarate 0.0045 MG/ACTUAT Metered Dose Inhaler Budesonide-Formoterol Budesonide-Formoterol 08/06/2020 08:27:01 AM EST 2 PUFFS completed [facility] 120 ACTUAT Budesonide 0.08 MG/ACTUAT / f ormoterol fumarate 0.0045 MG/ACTUAT Metered Dose Inhaler Budesonide-Formoterol Budesonide-Formoterol 08/06/2020 08:27:01 AM EST 2 PUFFS completed [facility] 120 ACTUAT Budesonide 0.08 MG/ACTUAT / f ormoterol fumarate 0.0045 MG/ACTUAT Metered Dose Inhaler Budesonide-Formoterol Budesonide-Formoterol 08/06/2020 08:27:01 AM EST 2 PUFFS active [facility] 120 ACTUAT Budesonide 0.08 MG/ACTUAT / f ormoterol fumarate 0.0045 MG/ACTUAT Metered Dose Inhaler Budesonide-Formoterol Budesonide-Formoterol 08/06/2020 08:27:01 AM EST 2 PUFFS completed [facility] 120 ACTUAT Budesonide 0.08 MG/ACTUAT / f ormoterol fumarate 0.0045 MG/ACTUAT Metered Dose Inhaler Budesonide-Formoterol Budesonide-Formoterol 08/06/2020 08:27:01 AM EST 2 PUFFS completed [facility] 120 ACTUAT Budesonide 0.08 MG/ACTUAT / f ormoterol fumarate 0.0045 MG/ACTUAT Metered Dose Inhaler Budesonide-Formoterol Budesonide-Formoterol 08/06/2020 08:27:01 AM EST 2 PUFFS completed [facility] 120 ACTUAT Budesonide 0.08 MG/ACTUAT / f ormoterol fumarate 0.0045 MG/ACTUAT Metered Dose Inhaler Budesonide-Formoterol Budesonide-Formoterol 08/06/2020 08:27:01 AM EST 2 PUFFS completed [facility] 120 ACTUAT Budesonide 0.08 MG/ACTUAT / f ormoterol fumarate 0.0045 MG/ACTUAT Metered Dose Inhaler Budesonide-Formoterol Budesonide-Formoterol 08/06/2020 08:27:01 AM EST 2 PUFFS completed [facility] 120 ACTUAT Budesonide 0.08 MG/ACTUAT / f ormoterol fumarate 0.0045 MG/ACTUAT Metered Dose Inhaler Budesonide-Formoterol Budesonide-Formoterol 08/06/2020 08:27:01 AM EST 2 PUFFS completed [facility] 120 ACTUAT Budesonide 0.08 MG/ACTUAT / f ormoterol fumarate 0.0045 MG/ACTUAT Metered Dose Inhaler Budesonide-Formoterol Budesonide-Formoterol 08/06/2020 08:13:45 AM EST 2 PUFFS completed [facility] 120 ACTUAT Budesonide 0.08 MG/ACTUAT / f ormoterol fumarate 0.0045 MG/ACTUAT Metered Dose Inhaler Budesonide-Formoterol Budesonide-Formoterol 08/06/2020 08:13:45 AM EST 2 PUFFS completed [facility] 120 ACTUAT Budesonide 0.08 MG/ACTUAT / f ormoterol fumarate 0.0045 MG/ACTUAT Metered Dose Inhaler Budesonide-Formoterol Budesonide-Formoterol 08/06/2020 08:13:45 AM EST 2 PUFFS completed [facility] 120 ACTUAT Budesonide 0.08 MG/ACTUAT / f ormoterol fumarate 0.0045 MG/ACTUAT Metered Dose Inhaler Budesonide-Formoterol Budesonide-Formoterol 08/06/2020 08:13:45 AM EST 2 PUFFS completed [facility] 120 ACTUAT Budesonide 0.08 MG/ACTUAT / f ormoterol fumarate 0.0045 MG/ACTUAT Metered Dose Inhaler Budesonide-Formoterol Budesonide-Formoterol 08/06/2020 08:13:45 AM EST 2 PUFFS completed [facility] 120 ACTUAT Budesonide 0.08 MG/ACTUAT / f ormoterol fumarate 0.0045 MG/ACTUAT Metered Dose Inhaler Budesonide-Formoterol Budesonide-Formoterol 08/06/2020 08:13:45 AM EST 2 PUFFS completed [facility] 120 ACTUAT Budesonide 0.08 MG/ACTUAT / f ormoterol fumarate 0.0045 MG/ACTUAT Metered Dose Inhaler Budesonide-Formoterol Budesonide-Formoterol 08/06/2020 08:13:45 AM EST 2 PUFFS completed [facility] 120 ACTUAT Budesonide 0.08 MG/ACTUAT / f ormoterol fumarate 0.0045 MG/ACTUAT Metered Dose Inhaler Budesonide-Formoterol Budesonide-Formoterol 08/06/2020 08:13:45 AM EST 2 PUFFS completed [facility] 120 ACTUAT Budesonide 0.08 MG/ACTUAT / f ormoterol fumarate 0.0045 MG/ACTUAT Metered Dose Inhaler Budesonide-Formoterol Budesonide-Formoterol 08/06/2020 08:13:45 AM EST 2 PUFFS completed [facility] 120 ACTUAT Budesonide 0.08 MG/ACTUAT / f ormoterol fumarate 0.0045 MG/ACTUAT Metered Dose Inhaler Budesonide-Formoterol Budesonide-Formoterol 08/06/2020 08:13:45 AM EST 2 PUFFS completed [facility] 120 ACTUAT Budesonide 0.08 MG/ACTUAT / f ormoterol fumarate 0.0045 MG/ACTUAT Metered Dose Inhaler Budesonide-Formoterol Budesonide-Formoterol 08/06/2020 08:13:45 AM EST 2 PUFFS completed [facility] 120 ACTUAT Budesonide 0.08 MG/ACTUAT / f ormoterol fumarate 0.0045 MG/ACTUAT Metered Dose Inhaler Budesonide-Formoterol Budesonide-Formoterol 08/06/2020 08:13:45 AM EST 2 PUFFS completed [facility] 120 ACTUAT Budesonide 0.08 MG/ACTUAT / f ormoterol fumarate 0.0045 MG/ACTUAT Metered Dose Inhaler Budesonide-Formoterol Budesonide-Formoterol 08/06/2020 08:13:45 AM EST 2 PUFFS completed [facility] 120 ACTUAT Budesonide 0.08 MG/ACTUAT / f ormoterol fumarate 0.0045 MG/ACTUAT Metered Dose Inhaler Budesonide-Formoterol Budesonide-Formoterol 08/06/2020 08:13:45 AM EST 2 PUFFS completed [facility] 120 ACTUAT Budesonide 0.08 MG/ACTUAT / f ormoterol fumarate 0.0045 MG/ACTUAT Metered Dose Inhaler Budesonide-Formoterol Budesonide-Formoterol 08/06/2020 08:13:45 AM EST 2 PUFFS completed [facility] 120 ACTUAT Budesonide 0.08 MG/ACTUAT / f ormoterol fumarate 0.0045 MG/ACTUAT Metered Dose Inhaler Budesonide-Formoterol Budesonide-Formoterol 08/06/2020 08:13:45 AM EST 2 PUFFS completed [facility] Sucralfate 100 MG/ML Oral Suspension Sucralfate 08/02/2020 12:00:00 A M EST ORAL active [facility] ([facility], ) Sertraline 50 MG Oral Tablet Sertraline 07/31/2020 09:19:11 AM EST 100 MG completed [facility] Sertraline 50 MG Oral Tablet Sertraline 07/31/2020 09:19:11 AM EST 100 MG completed [facility] Sertraline 50 MG Oral Tablet Sertraline 07/31/2020 09:19:11 AM EST 100 MG completed [facility] Sertraline 50 MG Oral Tablet Sertraline 07/31/2020 09:19:11 AM EST 100 MG completed [facility] Sertraline 50 MG Oral Tablet Sertraline 07/31/2020 09:19:11 AM EST 100 MG completed [facility] Sertraline 50 MG Oral Tablet Sertraline 07/31/2020 09:19:11 AM EST 100 MG completed [facility] Sertraline 50 MG Oral Tablet Sertraline 07/31/2020 09:19:11 AM EST 100 MG completed [facility] Sertraline 50 MG Oral Tablet Sertraline 07/31/2020 09:19:11 AM EST 100 MG completed [facility] Sertraline 50 MG Oral Tablet Sertraline 07/31/2020 09:19:11 AM EST 100 MG completed [facility] Sertraline 50 MG Oral Tablet Sertraline 07/31/2020 09:19:11 AM EST 100 MG completed [facility] Sertraline 50 MG Oral Tablet Sertraline 07/31/2020 09:19:11 AM EST 100 MG completed [facility] Sertraline 50 MG Oral Tablet Sertraline 07/31/2020 09:19:11 AM EST 100 MG completed [facility] Sertraline 50 MG Oral Tablet Sertraline 07/31/2020 09:19:11 AM EST 100 MG completed [facility] Sertraline 50 MG Oral Tablet Sertraline 07/31/2020 09:19:11 AM EST 100 MG completed [facility] Sertraline 50 MG Oral Tablet Sertraline 07/31/2020 09:19:11 AM EST 100 MG completed [facility] Sertraline 50 MG Oral Tablet Sertraline 07/31/2020 09:19:11 AM EST 100 MG completed [facility] Sertraline 50 MG Oral Tablet Sertraline 07/31/2020 09:19:11 AM EST 100 MG completed [facility] pantoprazole 40 MG Delayed Release Oral Tablet Pantoprazole Pantoprazole 07/25/2020 10:02:02 AM EST 40 MG [facility] pantoprazole 40 MG Delayed Release Oral Tablet Pantoprazole Pantoprazole 07/25/2020 10:02:02 AM EST 40 MG active [facility] pantoprazole 40 MG Delayed Release Oral Tablet Pantoprazole Pantoprazole 07/25/2020 10:02:02 AM EST 40 MG active [facility] pantoprazole 40 MG Delayed Release Oral Tablet Pantoprazole Pantoprazole 07/25/2020 10:02:02 AM EST 40 MG [facility] pantoprazole 40 MG Delayed Release Oral Tablet Pantoprazole Pantoprazole 07/25/2020 10:02:02 AM EST 40 MG [facility] pantoprazole 40 MG Delayed Release Oral Tablet Pantoprazole Pantoprazole 07/25/2020 10:02:02 AM EST 40 MG active [facility] pantoprazole 40 MG Delayed Release Oral Tablet Pantoprazole Pantoprazole 07/25/2020 10:02:02 AM EST 40 MG active [facility] pantoprazole 40 MG Delayed Release Oral Tablet Pantoprazole Pantoprazole 07/25/2020 10:02:02 AM EST 40 MG active [facility] pantoprazole 40 MG Delayed Release Oral Tablet Pantoprazole Pantoprazole 07/25/2020 10:02:02 AM EST 40 MG active [facility] pantoprazole 40 MG Delayed Release Oral Tablet Pantoprazole Pantoprazole 07/25/2020 10:02:02 AM EST 40 MG active [facility] pantoprazole 40 MG Delayed Release Oral Tablet Pantoprazole Pantoprazole 07/25/2020 10:02:02 AM EST 40 MG active [facility] pantoprazole 40 MG Delayed Release Oral Tablet Pantoprazole Pantoprazole 07/25/2020 10:02:02 AM EST 40 MG active [facility] pantoprazole 40 MG Delayed Release Oral Tablet Pantoprazole Pantoprazole 07/25/2020 10:02:02 AM EST 40 MG active [facility] pantoprazole 40 MG Delayed Release Oral Tablet Pantoprazole Pantoprazole 07/25/2020 10:02:02 AM EST 40 MG active [facility] pantoprazole 40 MG Delayed Release Oral Tablet Pantoprazole Pantoprazole 07/25/2020 10:02:02 AM EST 40 MG active [facility] pantoprazole 40 MG Delayed Release Oral Tablet Pantoprazole Pantoprazole 07/25/2020 10:02:02 AM EST 40 MG active [facility] pantoprazole 40 MG Delayed Release Oral Tablet Pantoprazole Pantoprazole 07/25/2020 10:02:02 AM EST 40 MG active [facility] pantoprazole 40 MG Delayed Release Oral Tablet Pantoprazole Pantoprazole 07/25/2020 10:02:02 AM EST 40 MG active [facility] pantoprazole 40 MG Delayed Release Oral Tablet Pantoprazole Sodium 07/23/2020 12:00:00 AM EST active [facility] ([facility], ) Sertraline 50 MG Oral Tablet Sertraline 07/04/2020 12:44:36 PM EST 100 MG completed [facility] Sertraline 50 MG Oral Tablet Sertraline 07/04/2020 12:44:36 PM EST 100 MG completed [facility] Sertraline 50 MG Oral Tablet Sertraline 07/04/2020 12:44:36 PM EST 100 MG completed [facility] Sertraline 50 MG Oral Tablet Sertraline 07/04/2020 12:44:36 PM EST 100 MG completed [facility] Sertraline 50 MG Oral Tablet Sertraline 07/04/2020 12:44:36 PM EST 100 MG completed [facility] Sertraline 50 MG Oral Tablet Sertraline 07/04/2020 12:44:36 PM EST 100 MG completed [facility] Sertraline 50 MG Oral Tablet Sertraline 07/04/2020 12:44:36 PM EST 100 MG completed [facility] Sertraline 50 MG Oral Tablet Sertraline 07/04/2020 12:44:36 PM EST 100 MG completed [facility] Sertraline 50 MG Oral Tablet Sertraline 07/04/2020 12:44:36 PM EST 100 MG completed [facility] Sertraline 50 MG Oral Tablet Sertraline 07/04/2020 12:44:36 PM EST 100 MG completed [facility] Sertraline 50 MG Oral Tablet Sertraline 07/04/2020 12:44:36 PM EST 100 MG active [facility] Sertraline 50 MG Oral Tablet Sertraline 07/04/2020 12:44:36 PM EST 100 MG completed [facility] Sertraline 50 MG Oral Tablet Sertraline 07/04/2020 12:44:36 PM EST 100 MG completed [facility] Sertraline 50 MG Oral Tablet Sertraline 07/04/2020 12:44:36 PM EST 100 MG completed [facility] Sertraline 50 MG Oral Tablet Sertraline 07/04/2020 12:44:36 PM EST 100 MG completed [facility] Sertraline 50 MG Oral Tablet Sertraline 07/04/2020 12:44:36 PM EST 100 MG completed [facility] Sertraline 50 MG Oral Tablet Sertraline 07/04/2020 12:44:36 PM EST 100 MG active [facility] Sertraline 50 MG Oral Tablet Sertraline 07/04/2020 12:44:36 PM EST 100 MG completed [facility] Sertraline 50 MG Oral Tablet Sertraline 07/04/2020 12:44:36 PM EST 100 MG completed [facility] quetiapine 25 MG Oral Tablet Quetiapine Quetiapine 07/04/2020 11: 45:21 AM EST 50 MG completed [facility] quetiapine 25 MG Oral Tablet Quetiapine Quetiapine 07/04/2020 11: 45:21 AM EST 50 MG completed [facility] quetiapine 25 MG Oral Tablet Quetiapine Quetiapine 07/04/2020 11: 45:21 AM EST 50 MG completed [facility] quetiapine 25 MG Oral Tablet Quetiapine Quetiapine 07/04/2020 11: 45:21 AM EST 50 MG completed [facility] quetiapine 25 MG Oral Tablet Quetiapine Quetiapine 07/04/2020 11: 45:21 AM EST 50 MG completed [facility] quetiapine 25 MG Oral Tablet Quetiapine Quetiapine 07/04/2020 11: 45:21 AM EST 50 MG completed [facility] quetiapine 25 MG Oral Tablet Quetiapine Quetiapine 07/04/2020 11: 45:21 AM EST 50 MG active [facility] quetiapine 25 MG Oral Tablet Quetiapine Quetiapine 07/04/2020 11: 45:21 AM EST 50 MG completed [facility] quetiapine 25 MG Oral Tablet Quetiapine Quetiapine 07/04/2020 11: 45:21 AM EST 50 MG completed [facility] quetiapine 25 MG Oral Tablet Quetiapine Quetiapine 07/04/2020 11: 45:21 AM EST 50 MG completed [facility] quetiapine 25 MG Oral Tablet Quetiapine Quetiapine 07/04/2020 11: 45:21 AM EST 50 MG completed [facility] quetiapine 25 MG Oral Tablet Quetiapine Quetiapine 07/04/2020 11: 45:21 AM EST 50 MG completed [facility] quetiapine 25 MG Oral Tablet Quetiapine Quetiapine 07/04/2020 11: 45:21 AM EST 50 MG active [facility] quetiapine 25 MG Oral Tablet Quetiapine Quetiapine 07/04/2020 11: 45:21 AM EST 50 MG completed [facility] quetiapine 25 MG Oral Tablet Quetiapine Quetiapine 07/04/2020 11: 45:21 AM EST 50 MG completed [facility] quetiapine 25 MG Oral Tablet Quetiapine Quetiapine 07/04/2020 11: 45:21 AM EST 50 MG completed [facility] quetiapine 25 MG Oral Tablet Quetiapine Quetiapine 07/04/2020 11: 45:21 AM EST 50 MG active [facility] quetiapine 25 MG Oral Tablet Quetiapine Quetiapine 07/04/2020 11: 45:21 AM EST 50 MG completed [facility] quetiapine 25 MG Oral Tablet Quetiapine Quetiapine 07/04/2020 11: 45:21 AM EST 50 MG completed [facility] quetiapine 25 MG Oral Tablet Quetiapine Quetiapine 07/04/2020 11: 42:37 AM EST 50 MG completed [facility] quetiapine 25 MG Oral Tablet Quetiapine Quetiapine 07/04/2020 11: 42:37 AM EST 50 MG completed [facility] quetiapine 25 MG Oral Tablet Quetiapine Quetiapine 07/04/2020 11: 42:37 AM EST 50 MG completed [facility] quetiapine 25 MG Oral Tablet Quetiapine Quetiapine 07/04/2020 11: 42:37 AM EST 50 MG completed [facility] quetiapine 25 MG Oral Tablet Quetiapine Quetiapine 07/04/2020 11: 42:37 AM EST 50 MG completed [facility] quetiapine 25 MG Oral Tablet Quetiapine Quetiapine 07/04/2020 11: 42:37 AM EST 50 MG completed [facility] quetiapine 25 MG Oral Tablet Quetiapine Quetiapine 07/04/2020 11: 42:37 AM EST 50 MG completed [facility] quetiapine 25 MG Oral Tablet Quetiapine Quetiapine 07/04/2020 11: 42:37 AM EST 50 MG completed [facility] quetiapine 25 MG Oral Tablet Quetiapine Quetiapine 07/04/2020 11: 42:37 AM EST 50 MG completed [facility] quetiapine 25 MG Oral Tablet Quetiapine Quetiapine 07/04/2020 11: 42:37 AM EST 50 MG completed [facility] quetiapine 25 MG Oral Tablet Quetiapine Quetiapine 07/04/2020 11: 42:37 AM EST 50 MG completed [facility] quetiapine 25 MG Oral Tablet Quetiapine Quetiapine 07/04/2020 11: 42:37 AM EST 50 MG completed [facility] quetiapine 25 MG Oral Tablet Quetiapine Quetiapine 07/04/2020 11: 42:37 AM EST 50 MG completed [facility] quetiapine 25 MG Oral Tablet Quetiapine Quetiapine 07/04/2020 11: 42:37 AM EST 50 MG completed [facility] quetiapine 25 MG Oral Tablet Quetiapine Quetiapine 07/04/2020 11: 42:37 AM EST 50 MG completed [facility] quetiapine 25 MG Oral Tablet Quetiapine Quetiapine 07/04/2020 11: 42:37 AM EST 50 MG completed [facility] quetiapine 25 MG Oral Tablet Quetiapine Quetiapine 07/04/2020 11: 42:37 AM EST 50 MG completed [facility] quetiapine 25 MG Oral Tablet Quetiapine Quetiapine 07/04/2020 11: 42:37 AM EST 50 MG completed [facility] quetiapine 25 MG Oral Tablet Quetiapine Quetiapine 07/04/2020 11: 42:37 AM EST 50 MG completed [facility] Sertraline 50 MG Oral Tablet Sertraline 07/04/2020 11:41:55 AM EST 100 MG completed [facility] Sertraline 50 MG Oral Tablet Sertraline 07/04/2020 11:41:55 AM EST 100 MG completed [facility] Sertraline 50 MG Oral Tablet Sertraline 07/04/2020 11:41:55 AM EST 100 MG completed [facility] Sertraline 50 MG Oral Tablet Sertraline 07/04/2020 11:41:55 AM EST 100 MG completed [facility] Sertraline 50 MG Oral Tablet Sertraline 07/04/2020 11:41:55 AM EST 100 MG completed [facility] Sertraline 50 MG Oral Tablet Sertraline 07/04/2020 11:41:55 AM EST 100 MG completed [facility] Sertraline 50 MG Oral Tablet Sertraline 07/04/2020 11:41:55 AM EST 100 MG completed [facility] Sertraline 50 MG Oral Tablet Sertraline 07/04/2020 11:41:55 AM EST 100 MG completed [facility] Sertraline 50 MG Oral Tablet Sertraline 07/04/2020 11:41:55 AM EST 100 MG completed [facility] Sertraline 50 MG Oral Tablet Sertraline 07/04/2020 11:41:55 AM EST 100 MG completed [facility] Sertraline 50 MG Oral Tablet Sertraline 07/04/2020 11:41:55 AM EST 100 MG completed [facility] Sertraline 50 MG Oral Tablet Sertraline 07/04/2020 11:41:55 AM EST 100 MG completed [facility] Sertraline 50 MG Oral Tablet Sertraline 07/04/2020 11:41:55 AM EST 100 MG completed [facility] Sertraline 50 MG Oral Tablet Sertraline 07/04/2020 11:41:55 AM EST 100 MG completed [facility] Sertraline 50 MG Oral Tablet Sertraline 07/04/2020 11:41:55 AM EST 100 MG completed [facility] Sertraline 50 MG Oral Tablet Sertraline 07/04/2020 11:41:55 AM EST 100 MG completed [facility] Sertraline 50 MG Oral Tablet Sertraline 07/04/2020 11:41:55 AM EST 100 MG completed [facility] Sertraline 50 MG Oral Tablet Sertraline 07/04/2020 11:41:55 AM EST 100 MG completed [facility] Sertraline 50 MG Oral Tablet Sertraline 07/04/2020 11:41:55 AM EST 100 MG completed [facility] Sertraline 50 MG Oral Tablet Sertraline 07/01/2020 09:11:44 PM EST 50 MG completed [facility] quetiapine 25 MG Oral Tablet Quetiapine Quetiapine 07/01/2020 09: 11:44 PM EST 25 MG completed [facility] Sertraline 50 MG Oral Tablet Sertraline 07/01/2020 09:11:44 PM EST 50 MG active [facility] Sertraline 50 MG Oral Tablet Sertraline 07/01/2020 09:11:44 PM EST 50 MG completed [facility] Sertraline 50 MG Oral Tablet Sertraline 07/01/2020 09:11:44 PM EST 50 MG completed [facility] Sertraline 50 MG Oral Tablet Sertraline 07/01/2020 09:11:44 PM EST 50 MG completed [facility] quetiapine 25 MG Oral Tablet Quetiapine Quetiapine 07/01/2020 09: 11:44 PM EST 25 MG completed [facility] quetiapine 25 MG Oral Tablet Quetiapine Quetiapine 07/01/2020 09: 11:44 PM EST 25 MG completed [facility] Sertraline 50 MG Oral Tablet Sertraline 07/01/2020 09:11:44 PM EST 50 MG completed [facility] Sertraline 50 MG Oral Tablet Sertraline 07/01/2020 09:11:44 PM EST 50 MG completed [facility] Sertraline 50 MG Oral Tablet Sertraline 07/01/2020 09:11:44 PM EST 50 MG completed [facility] Sertraline 50 MG Oral Tablet Sertraline 07/01/2020 09:11:44 PM EST 50 MG completed [facility] Sertraline 50 MG Oral Tablet Sertraline 07/01/2020 09:11:44 PM EST 50 MG completed [facility] quetiapine 25 MG Oral Tablet Quetiapine Quetiapine 07/01/2020 09: 11:44 PM EST 25 MG completed [facility] Sertraline 50 MG Oral Tablet Sertraline 07/01/2020 09:11:44 PM EST 50 MG completed [facility] quetiapine 25 MG Oral Tablet Quetiapine Quetiapine 07/01/2020 09: 11:44 PM EST 25 MG completed [facility] quetiapine 25 MG Oral Tablet Quetiapine Quetiapine 07/01/2020 09: 11:44 PM EST 25 MG completed [facility] Sertraline 50 MG Oral Tablet Sertraline 07/01/2020 09:11:44 PM EST 50 MG completed [facility] quetiapine 25 MG Oral Tablet Quetiapine Quetiapine 07/01/2020 09: 11:44 PM EST 25 MG completed [facility] quetiapine 25 MG Oral Tablet Quetiapine Quetiapine 07/01/2020 09: 11:44 PM EST 25 MG completed [facility] quetiapine 25 MG Oral Tablet Quetiapine Quetiapine 07/01/2020 09: 11:44 PM EST 25 MG completed [facility] quetiapine 25 MG Oral Tablet Quetiapine Quetiapine 07/01/2020 09: 11:44 PM EST 25 MG active [facility] quetiapine 25 MG Oral Tablet Quetiapine Quetiapine 07/01/2020 09: 11:44 PM EST 25 MG completed [facility] quetiapine 25 MG Oral Tablet Quetiapine Quetiapine 07/01/2020 09: 11:44 PM EST 25 MG completed [facility] quetiapine 25 MG Oral Tablet Quetiapine Quetiapine 07/01/2020 09: 11:44 PM EST 25 MG completed [facility] Sertraline 50 MG Oral Tablet Sertraline 07/01/2020 09:11:44 PM EST 50 MG completed [facility] Sertraline 50 MG Oral Tablet Sertraline 07/01/2020 09:11:44 PM EST 50 MG completed [facility] Sertraline 50 MG Oral Tablet Sertraline 07/01/2020 09:11:44 PM EST 50 MG completed [facility] Sertraline 50 MG Oral Tablet Sertraline 07/01/2020 09:11:44 PM EST 50 MG completed [facility] Sertraline 50 MG Oral Tablet Sertraline 07/01/2020 09:11:44 PM EST 50 MG completed [facility] Sertraline 50 MG Oral Tablet Sertraline 07/01/2020 09:11:44 PM EST 50 MG completed [facility] quetiapine 25 MG Oral Tablet Quetiapine Quetiapine 07/01/2020 09: 11:44 PM EST 25 MG completed [facility] quetiapine 25 MG Oral Tablet Quetiapine Quetiapine 07/01/2020 09: 11:44 PM EST 25 MG completed [facility] quetiapine 25 MG Oral Tablet Quetiapine Quetiapine 07/01/2020 09: 11:44 PM EST 25 MG completed [facility] Sertraline 50 MG Oral Tablet Sertraline 07/01/2020 09:11:44 PM EST 50 MG completed [facility] quetiapine 25 MG Oral Tablet Quetiapine Quetiapine 07/01/2020 09: 11:44 PM EST 25 MG completed [facility] quetiapine 25 MG Oral Tablet Quetiapine Quetiapine 07/01/2020 09: 11:44 PM EST 25 MG completed [facility] Sertraline 50 MG Oral Tablet Sertraline 07/01/2020 09:11:44 PM EST 50 MG completed [facility] quetiapine 25 MG Oral Tablet Quetiapine Quetiapine 07/01/2020 09: 11:44 PM EST 25 MG completed [facility] quetiapine 25 MG Oral Tablet Quetiapine Quetiapine 07/01/2020 09: 11:44 PM EST 25 MG completed [facility] Famotidine 20 MG Oral Tablet Famotidine 07/01/2020 09:08:02 PM EST 20 MG completed [facility] Dicyclomine Hydrochloride 20 MG Oral Tablet Dicyclomine 07/01/2020 09:08:02 PM EST 20 MG active [facility] Dicyclomine Hydrochloride 20 MG Oral Tablet Dicyclomine 07/01/2020 09:08:02 PM EST 20 MG active [facility] Dicyclomine Hydrochloride 20 MG Oral Tablet Dicyclomine 07/01/2020 09:08:02 PM EST 20 MG active [facility] Famotidine 20 MG Oral Tablet Famotidine 07/01/2020 09:08:02 PM EST 20 MG completed [facility] Dicyclomine Hydrochloride 20 MG Oral Tablet Dicyclomine 07/01/2020 09:08:02 PM EST 20 MG active [facility] Famotidine 20 MG Oral Tablet Famotidine 07/01/2020 09:08:02 PM EST 20 MG completed [facility] Dicyclomine Hydrochloride 20 MG Oral Tablet Dicyclomine 07/01/2020 09:08:02 PM EST 20 MG active [facility] Dicyclomine Hydrochloride 20 MG Oral Tablet Dicyclomine 07/01/2020 09:08:02 PM EST 20 MG active [facility] Dicyclomine Hydrochloride 20 MG Oral Tablet Dicyclomine 07/01/2020 09:08:02 PM EST 20 MG active [facility] Famotidine 20 MG Oral Tablet Famotidine 07/01/2020 09:08:02 PM EST 20 MG completed [facility] Dicyclomine Hydrochloride 20 MG Oral Tablet Dicyclomine 07/01/2020 09:08:02 PM EST 20 MG active [facility] Dicyclomine Hydrochloride 20 MG Oral Tablet Dicyclomine 07/01/2020 09:08:02 PM EST 20 MG active [facility] Famotidine 20 MG Oral Tablet Famotidine 07/01/2020 09:08:02 PM EST 20 MG completed [facility] Famotidine 20 MG Oral Tablet Famotidine 07/01/2020 09:08:02 PM EST 20 MG completed [facility] Famotidine 20 MG Oral Tablet Famotidine 07/01/2020 09:08:02 PM EST 20 MG completed [facility] Dicyclomine Hydrochloride 20 MG Oral Tablet Dicyclomine 07/01/2020 09:08:02 PM EST 20 MG active [facility] Famotidine 20 MG Oral Tablet Famotidine 07/01/2020 09:08:02 PM EST 20 MG completed [facility] Famotidine 20 MG Oral Tablet Famotidine 07/01/2020 09:08:02 PM EST 20 MG active [facility] Famotidine 20 MG Oral Tablet Famotidine 07/01/2020 09:08:02 PM EST 20 MG completed [facility] Famotidine 20 MG Oral Tablet Famotidine 07/01/2020 09:08:02 PM EST 20 MG active [facility] Dicyclomine Hydrochloride 20 MG Oral Tablet Dicyclomine 07/01/2020 09:08:02 PM EST 20 MG active [facility] Famotidine 20 MG Oral Tablet Famotidine 07/01/2020 09:08:02 PM EST 20 MG completed [facility] Famotidine 20 MG Oral Tablet Famotidine 07/01/2020 09:08:02 PM EST 20 MG completed [facility] Famotidine 20 MG Oral Tablet Famotidine 07/01/2020 09:08:02 PM EST 20 MG completed [facility] Dicyclomine Hydrochloride 20 MG Oral Tablet Dicyclomine 07/01/2020 09:08:02 PM EST 20 MG active [facility] Dicyclomine Hydrochloride 20 MG Oral Tablet Dicyclomine 07/01/2020 09:08:02 PM EST 20 MG active [facility] Famotidine 20 MG Oral Tablet Famotidine 07/01/2020 09:08:02 PM EST 20 MG completed [facility] Famotidine 20 MG Oral Tablet Famotidine 07/01/2020 09:08:02 PM EST 20 MG completed [facility] Famotidine 20 MG Oral Tablet Famotidine 07/01/2020 09:08:02 PM EST 20 MG completed [facility] Dicyclomine Hydrochloride 20 MG Oral Tablet Dicyclomine 07/01/2020 09:08:02 PM EST 20 MG active [facility] Dicyclomine Hydrochloride 20 MG Oral Tablet Dicyclomine 07/01/2020 09:08:02 PM EST 20 MG active [facility] Dicyclomine Hydrochloride 20 MG Oral Tablet Dicyclomine 07/01/2020 09:08:02 PM EST 20 MG active [facility] Dicyclomine Hydrochloride 20 MG Oral Tablet Dicyclomine 07/01/2020 09:08:02 PM EST 20 MG active [facility] Famotidine 20 MG Oral Tablet Famotidine 07/01/2020 09:08:02 PM EST 20 MG completed [facility] Dicyclomine Hydrochloride 20 MG Oral Tablet Dicyclomine 07/01/2020 09:08:02 PM EST 20 MG active [facility] Famotidine 20 MG Oral Tablet Famotidine 07/01/2020 09:08:02 PM EST 20 MG completed [facility] Dicyclomine Hydrochloride 20 MG Oral Tablet Dicyclomine 07/01/2020 09:08:02 PM EST 20 MG active [facility] Famotidine 20 MG Oral Tablet Famotidine 07/01/2020 09:08:02 PM EST 20 MG completed [facility] Dicyclomine Hydrochloride 20 MG Oral Tablet Dicyclomine 07/01/2020 09:08:02 PM EST 20 MG active [facility] Omeprazole 20 MG Delayed Release Oral Capsule Omeprazole 07/01/2020 09:13:53 AM EST 20 MG completed [facility] Omeprazole 20 MG Delayed Release Oral Capsule Omeprazole 07/01/2020 09:13:53 AM EST 20 MG active [facility] Omeprazole 20 MG Delayed Release Oral Capsule Omeprazole 07/01/2020 09:13:53 AM EST 20 MG completed [facility] Omeprazole 20 MG Delayed Release Oral Capsule Omeprazole 07/01/2020 09:13:53 AM EST 20 MG completed [facility] Omeprazole 20 MG Delayed Release Oral Capsule Omeprazole 07/01/2020 09:13:53 AM EST 20 MG completed [facility] Omeprazole 20 MG Delayed Release Oral Capsule Omeprazole 07/01/2020 09:13:53 AM EST 20 MG completed [facility] Omeprazole 20 MG Delayed Release Oral Capsule Omeprazole 07/01/2020 09:13:53 AM EST 20 MG completed [facility] Omeprazole 20 MG Delayed Release Oral Capsule Omeprazole 07/01/2020 09:13:53 AM EST 20 MG completed [facility] Omeprazole 20 MG Delayed Release Oral Capsule Omeprazole 07/01/2020 09:13:53 AM EST 20 MG completed [facility] Omeprazole 20 MG Delayed Release Oral Capsule Omeprazole 07/01/2020 09:13:53 AM EST 20 MG completed [facility] Omeprazole 20 MG Delayed Release Oral Capsule Omeprazole 07/01/2020 09:13:53 AM EST 20 MG completed [facility] Omeprazole 20 MG Delayed Release Oral Capsule Omeprazole 07/01/2020 09:13:53 AM EST 20 MG completed [facility] Omeprazole 20 MG Delayed Release Oral Capsule Omeprazole 07/01/2020 09:13:53 AM EST 20 MG completed [facility] Omeprazole 20 MG Delayed Release Oral Capsule Omeprazole 07/01/2020 09:13:53 AM EST 20 MG active [facility] Omeprazole 20 MG Delayed Release Oral Capsule Omeprazole 07/01/2020 09:13:53 AM EST 20 MG completed [facility] Omeprazole 20 MG Delayed Release Oral Capsule Omeprazole 07/01/2020 09:13:53 AM EST 20 MG completed [facility] Omeprazole 20 MG Delayed Release Oral Capsule Omeprazole 07/01/2020 09:13:53 AM EST 20 MG active [facility] Omeprazole 20 MG Delayed Release Oral Capsule Omeprazole 07/01/2020 09:13:53 AM EST 20 MG completed [facility] Omeprazole 20 MG Delayed Release Oral Capsule Omeprazole 07/01/2020 09:13:53 AM EST 20 MG completed [facility] Omeprazole 20 MG Delayed Release Oral Capsule Omeprazole 07/01/2020 09:13:53 AM EST 20 MG completed [facility] Omeprazole 20 MG Delayed Release Oral Capsule Omeprazole 07/01/2020 09:13:53 AM EST 20 MG completed [facility] Omeprazole 20 MG Delayed Release Oral Capsule Omeprazole 06/21/2020 11:51:10 AM EDT 20 MG completed [facility] Omeprazole 20 MG Delayed Release Oral Capsule Omeprazole 06/21/2020 11:51:10 AM EDT 20 MG completed [facility] Omeprazole 20 MG Delayed Release Oral Capsule Omeprazole 06/21/2020 11:51:10 AM EDT 20 MG completed [facility] Omeprazole 20 MG Delayed Release Oral Capsule Omeprazole 06/21/2020 11:51:10 AM EDT 20 MG active [facility] Omeprazole 20 MG Delayed Release Oral Capsule Omeprazole 06/21/2020 11:51:10 AM EDT 20 MG completed [facility] Omeprazole 20 MG Delayed Release Oral Capsule Omeprazole 06/21/2020 11:51:10 AM EDT 20 MG completed [facility] Omeprazole 20 MG Delayed Release Oral Capsule Omeprazole 06/21/2020 11:51:10 AM EDT 20 MG completed [facility] Omeprazole 20 MG Delayed Release Oral Capsule Omeprazole 06/21/2020 11:51:10 AM EDT 20 MG completed [facility] Omeprazole 20 MG Delayed Release Oral Capsule Omeprazole 06/21/2020 11:51:10 AM EDT 20 MG completed [facility] Omeprazole 20 MG Delayed Release Oral Capsule Omeprazole 06/21/2020 11:51:10 AM EDT 20 MG completed [facility] Omeprazole 20 MG Delayed Release Oral Capsule Omeprazole 06/21/2020 11:51:10 AM EDT 20 MG completed [facility] Omeprazole 20 MG Delayed Release Oral Capsule Omeprazole 06/21/2020 11:51:10 AM EDT 20 MG completed [facility] Omeprazole 20 MG Delayed Release Oral Capsule Omeprazole 06/21/2020 11:51:10 AM EDT 20 MG completed [facility] Omeprazole 20 MG Delayed Release Oral Capsule Omeprazole 06/21/2020 11:51:10 AM EDT 20 MG completed [facility] Omeprazole 20 MG Delayed Release Oral Capsule Omeprazole 06/21/2020 11:51:10 AM EDT 20 MG completed [facility] Omeprazole 20 MG Delayed Release Oral Capsule Omeprazole 06/21/2020 11:51:10 AM EDT 20 MG completed [facility] Omeprazole 20 MG Delayed Release Oral Capsule Omeprazole 06/21/2020 11:51:10 AM EDT 20 MG completed [facility] Omeprazole 20 MG Delayed Release Oral Capsule Omeprazole 06/21/2020 11:51:10 AM EDT 20 MG completed [facility] Omeprazole 20 MG Delayed Release Oral Capsule Omeprazole 06/21/2020 11:51:10 AM EDT 20 MG completed [facility] Omeprazole 20 MG Delayed Release Oral Capsule Omeprazole 06/21/2020 11:51:10 AM EDT 20 MG completed [facility] Omeprazole 20 MG Delayed Release Oral Capsule Omeprazole 06/21/2020 11:51:10 AM EDT 20 MG completed [facility] Omeprazole 20 MG Delayed Release Oral Capsule Omeprazole 06/21/2020 11:51:10 AM EDT 20 MG completed [facility] Dicyclomine Hydrochloride 20 MG Oral Tablet Dicyclomine HCL 06/20/2020 12:00:00 AM EDT ORAL active [facility] ([facility], ) quetiapine 25 MG Oral Tablet Quetiapine Quetiapine 06/13/2020 01: 26:10 PM EDT 25 MG completed [facility] quetiapine 25 MG Oral Tablet Quetiapine Quetiapine 06/13/2020 01: 26:10 PM EDT 25 MG completed [facility] quetiapine 25 MG Oral Tablet Quetiapine Quetiapine 06/13/2020 01: 26:10 PM EDT 25 MG completed [facility] quetiapine 25 MG Oral Tablet Quetiapine Quetiapine 06/13/2020 01: 26:10 PM EDT 25 MG completed [facility] quetiapine 25 MG Oral Tablet Quetiapine Quetiapine 06/13/2020 01: 26:10 PM EDT 25 MG completed [facility] quetiapine 25 MG Oral Tablet Quetiapine Quetiapine 06/13/2020 01: 26:10 PM EDT 25 MG active [facility] quetiapine 25 MG Oral Tablet Quetiapine Quetiapine 06/13/2020 01: 26:10 PM EDT 25 MG completed [facility] quetiapine 25 MG Oral Tablet Quetiapine Quetiapine 06/13/2020 01: 26:10 PM EDT 25 MG completed [facility] quetiapine 25 MG Oral Tablet Quetiapine Quetiapine 06/13/2020 01: 26:10 PM EDT 25 MG completed [facility] quetiapine 25 MG Oral Tablet Quetiapine Quetiapine 06/13/2020 01: 26:10 PM EDT 25 MG completed [facility] quetiapine 25 MG Oral Tablet Quetiapine Quetiapine 06/13/2020 01: 26:10 PM EDT 25 MG completed [facility] quetiapine 25 MG Oral Tablet Quetiapine Quetiapine 06/13/2020 01: 26:10 PM EDT 25 MG completed [facility] quetiapine 25 MG Oral Tablet Quetiapine Quetiapine 06/13/2020 01: 26:10 PM EDT 25 MG completed [facility] quetiapine 25 MG Oral Tablet Quetiapine Quetiapine 06/13/2020 01: 26:10 PM EDT 25 MG completed [facility] quetiapine 25 MG Oral Tablet Quetiapine Quetiapine 06/13/2020 01: 26:10 PM EDT 25 MG completed [facility] quetiapine 25 MG Oral Tablet Quetiapine Quetiapine 06/13/2020 01: 26:10 PM EDT 25 MG completed [facility] quetiapine 25 MG Oral Tablet Quetiapine Quetiapine 06/13/2020 01: 26:10 PM EDT 25 MG completed [facility] quetiapine 25 MG Oral Tablet Quetiapine Quetiapine 06/13/2020 01: 26:10 PM EDT 25 MG active [facility] quetiapine 25 MG Oral Tablet Quetiapine Quetiapine 06/13/2020 01: 26:10 PM EDT 25 MG completed [facility] quetiapine 25 MG Oral Tablet Quetiapine Quetiapine 06/13/2020 01: 26:10 PM EDT 25 MG completed [facility] quetiapine 25 MG Oral Tablet Quetiapine Quetiapine 06/13/2020 01: 26:10 PM EDT 25 MG completed [facility] quetiapine 25 MG Oral Tablet Quetiapine Quetiapine 06/13/2020 01: 26:10 PM EDT 25 MG completed [facility] Drospirenone-Ethinyl Estradiol 06/11/2020 04:31:38 PM EDT 1 TAB completed [facility] Drospirenone-Ethinyl Estradiol 06/11/2020 04:31:38 PM EDT 1 TAB completed [facility] Drospirenone-Ethinyl Estradiol 06/11/2020 04:31:38 PM EDT 1 TAB completed [facility] Drospirenone-Ethinyl Estradiol 06/11/2020 04:31:38 PM EDT 1 TAB completed [facility] Drospirenone-Ethinyl Estradiol 06/11/2020 04:31:38 PM EDT 1 TAB completed [facility] Drospirenone-Ethinyl Estradiol 06/11/2020 04:31:38 PM EDT 1 TAB completed [facility] Drospirenone-Ethinyl Estradiol 06/11/2020 04:31:38 PM EDT 1 TAB completed [facility] Drospirenone-Ethinyl Estradiol 06/11/2020 04:31:38 PM EDT 1 TAB completed [facility] Drospirenone-Ethinyl Estradiol 06/11/2020 04:31:38 PM EDT 1 TAB completed [facility] Drospirenone-Ethinyl Estradiol 06/11/2020 04:31:38 PM EDT 1 TAB completed [facility] Drospirenone-Ethinyl Estradiol 06/11/2020 04:31:38 PM EDT 1 TAB completed [facility] Drospirenone-Ethinyl Estradiol 06/11/2020 04:31:38 PM EDT 1 TAB completed [facility] Drospirenone-Ethinyl Estradiol 06/11/2020 04:31:38 PM EDT 1 TAB completed [facility] Drospirenone-Ethinyl Estradiol 06/11/2020 04:31:38 PM EDT 1 TAB completed [facility] Drospirenone-Ethinyl Estradiol 06/11/2020 04:31:38 PM EDT 1 TAB completed [facility] Drospirenone-Ethinyl Estradiol 06/11/2020 04:31:38 PM EDT 1 TAB completed [facility] Drospirenone-Ethinyl Estradiol 06/11/2020 04:31:38 PM EDT 1 TAB completed [facility] Drospirenone-Ethinyl Estradiol 06/11/2020 04:31:38 PM EDT 1 TAB completed [facility] Drospirenone-Ethinyl Estradiol 06/11/2020 04:31:38 PM EDT 1 TAB completed [facility] Drospirenone-Ethinyl Estradiol 06/11/2020 04:31:38 PM EDT 1 TAB completed [facility] Drospirenone-Ethinyl Estradiol 06/11/2020 04:31:38 PM EDT 1 TAB completed [facility] Drospirenone-Ethinyl Estradiol 06/11/2020 04:31:38 PM EDT 1 TAB completed [facility] Metoprolol Succinate 05/28/2020 06:59:47 AM EDT 50 MG completed [facility] Metoprolol Succinate 05/28/2020 06:59:47 AM EDT 50 MG completed [facility] Metoprolol Succinate 05/28/2020 06:59:47 AM EDT 50 MG active [facility] Metoprolol Succinate 05/28/2020 06:59:47 AM EDT 50 MG active [facility] Metoprolol Succinate 05/28/2020 06:59:47 AM EDT 50 MG active [facility] Metoprolol Succinate 05/28/2020 06:59:47 AM EDT 50 MG active [facility] Metoprolol Succinate 05/28/2020 06:59:47 AM EDT 50 MG completed [facility] Metoprolol Succinate 05/28/2020 06:59:47 AM EDT 50 MG active [facility] Metoprolol Succinate 05/28/2020 06:59:47 AM EDT 50 MG active [facility] Metoprolol Succinate 05/28/2020 06:59:47 AM EDT 50 MG completed [facility] Metoprolol Succinate 05/28/2020 06:59:47 AM EDT 50 MG active [facility] Metoprolol Succinate 05/28/2020 06:59:47 AM EDT 50 MG completed [facility] Metoprolol Succinate 05/28/2020 06:59:47 AM EDT 50 MG active [facility] Metoprolol Succinate 05/28/2020 06:59:47 AM EDT 50 MG active [facility] Metoprolol Succinate 05/28/2020 06:59:47 AM EDT 50 MG completed [facility] Metoprolol Succinate 05/28/2020 06:59:47 AM EDT 50 MG completed [facility] Metoprolol Succinate 05/28/2020 06:59:47 AM EDT 50 MG completed [facility] Metoprolol Succinate 05/28/2020 06:59:47 AM EDT 50 MG active [facility] Metoprolol Succinate 05/28/2020 06:59:47 AM EDT 50 MG completed [facility] Metoprolol Succinate 05/28/2020 06:59:47 AM EDT 50 MG completed [facility] Metoprolol Succinate 05/28/2020 06:59:47 AM EDT 50 MG active [facility] Metoprolol Succinate 05/28/2020 06:59:47 AM EDT 50 MG completed [facility] Metoprolol Succinate 05/28/2020 06:59:47 AM EDT 50 MG active [facility] Metoprolol Succinate 05/28/2020 06:59:47 AM EDT 50 MG completed [facility] Promethazine Hydrochloride 50 MG Oral Tablet Promethazine 05/23/2020 09:27:37 AM EDT 50 MG completed [facility] Promethazine Hydrochloride 50 MG Oral Tablet Promethazine 05/23/2020 09:27:37 AM EDT 50 MG completed [facility] Promethazine Hydrochloride 50 MG Oral Tablet Promethazine 05/23/2020 09:27:37 AM EDT 50 MG active [facility] Promethazine Hydrochloride 50 MG Oral Tablet Promethazine 05/23/2020 09:27:37 AM EDT 50 MG completed [facility] Promethazine Hydrochloride 50 MG Oral Tablet Promethazine 05/23/2020 09:27:37 AM EDT 50 MG completed [facility] Promethazine Hydrochloride 50 MG Oral Tablet Promethazine 05/23/2020 09:27:37 AM EDT 50 MG completed [facility] Promethazine Hydrochloride 50 MG Oral Tablet Promethazine 05/23/2020 09:27:37 AM EDT 50 MG completed [facility] Promethazine Hydrochloride 50 MG Oral Tablet Promethazine 05/23/2020 09:27:37 AM EDT 50 MG completed [facility] Promethazine Hydrochloride 50 MG Oral Tablet Promethazine 05/23/2020 09:27:37 AM EDT 50 MG completed [facility] Promethazine Hydrochloride 50 MG Oral Tablet Promethazine 05/23/2020 09:27:37 AM EDT 50 MG completed [facility] Promethazine Hydrochloride 50 MG Oral Tablet Promethazine 05/23/2020 09:27:37 AM EDT 50 MG completed [facility] Promethazine Hydrochloride 50 MG Oral Tablet Promethazine 05/23/2020 09:27:37 AM EDT 50 MG completed [facility] Promethazine Hydrochloride 50 MG Oral Tablet Promethazine 05/23/2020 09:27:37 AM EDT 50 MG active [facility] Promethazine Hydrochloride 50 MG Oral Tablet Promethazine 05/23/2020 09:27:37 AM EDT 50 MG active [facility] Promethazine Hydrochloride 50 MG Oral Tablet Promethazine 05/23/2020 09:27:37 AM EDT 50 MG active [facility] Promethazine Hydrochloride 50 MG Oral Tablet Promethazine 05/23/2020 09:27:37 AM EDT 50 MG completed [facility] Promethazine Hydrochloride 50 MG Oral Tablet Promethazine 05/23/2020 09:27:37 AM EDT 50 MG active [facility] Promethazine Hydrochloride 50 MG Oral Tablet Promethazine 05/23/2020 09:27:37 AM EDT 50 MG completed [facility] Promethazine Hydrochloride 50 MG Oral Tablet Promethazine 05/23/2020 09:27:37 AM EDT 50 MG completed [facility] Promethazine Hydrochloride 50 MG Oral Tablet Promethazine 05/23/2020 09:27:37 AM EDT 50 MG completed [facility] Promethazine Hydrochloride 50 MG Oral Tablet Promethazine 05/23/2020 09:27:37 AM EDT 50 MG completed [facility] Promethazine Hydrochloride 50 MG Oral Tablet Promethazine 05/23/2020 09:27:37 AM EDT 50 MG completed [facility] Promethazine Hydrochloride 50 MG Oral Tablet Promethazine 05/23/2020 09:27:37 AM EDT 50 MG completed [facility] Promethazine Hydrochloride 50 MG Oral Tablet Promethazine 05/23/2020 09:27:37 AM EDT 50 MG completed [facility] Promethazine Hydrochloride 50 MG Oral Tablet Promethazine 05/23/2020 09:27:37 AM EDT 50 MG completed [facility] Lactobacillus Combination No.8 (Adult Probiotic) 3 billion c ell capsule 05/18/2020 12:54:43 PM EDT 3000 MMU CELLS active [facility] Lactobacillus Combination No.8 (Adult Probiotic) 3 billion c ell capsule 05/18/2020 12:54:43 PM EDT 3000 MMU CELLS completed [facility] Lactobacillus Combination No.8 (Adult Probiotic) 3 billion c ell capsule 05/18/2020 12:54:43 PM EDT 3000 MMU CELLS completed [facility] Lactobacillus Combination No.8 (Adult Probiotic) 3 billion c ell capsule 05/18/2020 12:54:43 PM EDT 3000 MMU CELLS completed [facility] Lactobacillus Combination No.8 (Adult Probiotic) 3 billion c ell capsule 05/18/2020 12:54:43 PM EDT 3000 MMU CELLS completed [facility] Lactobacillus Combination No.8 (Adult Probiotic) 3 billion c ell capsule 05/18/2020 12:54:43 PM EDT 3000 MMU CELLS completed [facility] Lactobacillus Combination No.8 (Adult Probiotic) 3 billion c ell capsule 05/18/2020 12:54:43 PM EDT 3000 MMU CELLS completed [facility] Lactobacillus Combination No.8 (Adult Probiotic) 3 billion c ell capsule 05/18/2020 12:54:43 PM EDT 3000 MMU CELLS active [facility] Lactobacillus Combination No.8 (Adult Probiotic) 3 billion c ell capsule 05/18/2020 12:54:43 PM EDT 3000 MMU CELLS completed [facility] Lactobacillus Combination No.8 (Adult Probiotic) 3 billion c ell capsule 05/18/2020 12:54:43 PM EDT 3000 MMU CELLS completed [facility] Lactobacillus Combination No.8 (Adult Probiotic) 3 billion c ell capsule 05/18/2020 12:54:43 PM EDT 3000 MMU CELLS completed [facility] Lactobacillus Combination No.8 (Adult Probiotic) 3 billion c ell capsule 05/18/2020 12:54:43 PM EDT 3000 MMU CELLS active [facility] Lactobacillus Combination No.8 (Adult Probiotic) 3 billion c ell capsule 05/18/2020 12:54:43 PM EDT 3000 MMU CELLS completed [facility] Lactobacillus Combination No.8 (Adult Probiotic) 3 billion c ell capsule 05/18/2020 12:54:43 PM EDT 3000 MMU CELLS completed [facility] Lactobacillus Combination No.8 (Adult Probiotic) 3 billion c ell capsule 05/18/2020 12:54:43 PM EDT 3000 MMU CELLS active [facility] Lactobacillus Combination No.8 (Adult Probiotic) 3 billion c ell capsule 05/18/2020 12:54:43 PM EDT 3000 MMU CELLS completed [facility] Lactobacillus Combination No.8 (Adult Probiotic) 3 billion c ell capsule 05/18/2020 12:54:43 PM EDT 3000 MMU CELLS completed [facility] Lactobacillus Combination No.8 (Adult Probiotic) 3 billion c ell capsule 05/18/2020 12:54:43 PM EDT 3000 MMU CELLS completed [facility] Lactobacillus Combination No.8 (Adult Probiotic) 3 billion c ell capsule 05/18/2020 12:54:43 PM EDT 3000 MMU CELLS completed [facility] Lactobacillus Combination No.8 (Adult Probiotic) 3 billion c ell capsule 05/18/2020 12:54:43 PM EDT 3000 MMU CELLS completed [facility] Lactobacillus Combination No.8 (Adult Probiotic) 3 billion c ell capsule 05/18/2020 12:54:43 PM EDT 3000 MMU CELLS active [facility] Lactobacillus Combination No.8 (Adult Probiotic) 3 billion c ell capsule 05/18/2020 12:54:43 PM EDT 3000 MMU CELLS completed [facility] Lactobacillus Combination No.8 (Adult Probiotic) 3 billion c ell capsule 05/18/2020 12:54:43 PM EDT 3000 MMU CELLS completed [facility] Lactobacillus Combination No.8 (Adult Probiotic) 3 billion c ell capsule 05/18/2020 12:54:43 PM EDT 3000 MMU CELLS active [facility] Lactobacillus Combination No.8 (Adult Probiotic) 3 billion c ell capsule 05/18/2020 12:54:43 PM EDT 3000 MMU CELLS completed [facility] Lactobacillus Combination No.8 (Adult Probiotic) 3 billion c ell capsule 05/18/2020 12:54:43 PM EDT 3000 MMU CELLS completed [facility] Vancomycin 125 MG Oral Capsule Vancomycin 05/18/2020 12:46:30 PM EDT 125 MG completed [facility] Vancomycin 125 MG Oral Capsule Vancomycin 05/18/2020 12:46:30 PM EDT 125 MG completed [facility] Vancomycin 125 MG Oral Capsule Vancomycin 05/18/2020 12:46:30 PM EDT 125 MG completed [facility] Vancomycin 125 MG Oral Capsule Vancomycin 05/18/2020 12:46:30 PM EDT 125 MG completed [facility] Vancomycin 125 MG Oral Capsule Vancomycin 05/18/2020 12:46:30 PM EDT 125 MG active [facility] Vancomycin 125 MG Oral Capsule Vancomycin 05/18/2020 12:46:30 PM EDT 125 MG completed [facility] Vancomycin 125 MG Oral Capsule Vancomycin 05/18/2020 12:46:30 PM EDT 125 MG completed [facility] Vancomycin 125 MG Oral Capsule Vancomycin 05/18/2020 12:46:30 PM EDT 125 MG completed [facility] Vancomycin 125 MG Oral Capsule Vancomycin 05/18/2020 12:46:30 PM EDT 125 MG [facility] [facility] 125 MG Oral Capsule Vancomycin 05/18/2020 12:46:30 PM EDT 125 MG active [facility] Vancomycin 125 MG Oral Capsule Vancomycin 05/18/2020 12:46:30 PM EDT 125 MG completed [facility] Vancomycin 125 MG Oral Capsule Vancomycin 05/18/2020 12:46:30 PM EDT 125 MG completed [facility] Vancomycin 125 MG Oral Capsule Vancomycin 05/18/2020 12:46:30 PM EDT 125 MG completed [facility] Vancomycin 125 MG Oral Capsule Vancomycin 05/18/2020 12:46:30 PM EDT 125 MG completed [facility] Vancomycin 125 MG Oral Capsule Vancomycin 05/18/2020 12:46:30 PM EDT 125 MG completed [facility] Vancomycin 125 MG Oral Capsule Vancomycin 05/18/2020 12:46:30 PM EDT 125 MG completed [facility] Vancomycin 125 MG Oral Capsule Vancomycin 05/18/2020 12:46:30 PM EDT 125 MG completed [facility] Vancomycin 125 MG Oral Capsule Vancomycin 05/18/2020 12:46:30 PM EDT 125 MG completed [facility] Vancomycin 125 MG Oral Capsule Vancomycin 05/18/2020 12:46:30 PM EDT 125 MG completed [facility] Vancomycin 125 MG Oral Capsule Vancomycin 05/18/2020 12:46:30 PM EDT 125 MG completed [facility] Vancomycin 125 MG Oral Capsule Vancomycin 05/18/2020 12:46:30 PM EDT 125 MG completed [facility] Vancomycin 125 MG Oral Capsule Vancomycin 05/18/2020 12:46:30 PM EDT 125 MG completed [facility] Vancomycin 125 MG Oral Capsule Vancomycin 05/18/2020 12:46:30 PM EDT 125 MG completed [facility] Vancomycin 125 MG Oral Capsule Vancomycin 05/18/2020 12:46:30 PM EDT 125 MG active [facility] Vancomycin 125 MG Oral Capsule Vancomycin 05/18/2020 12:46:30 PM EDT 125 MG completed [facility] Vancomycin 125 MG Oral Capsule Vancomycin 05/18/2020 12:46:30 PM EDT 125 MG completed [facility] Norgestimate-Ethinyl Estradiol (Ortho Tr i-Cyclen (28)) 0.18/0.215/0.25 mg-35 mcg (28) tablet 05/18/2020 02:35:41 AM EDT 1 TAB comp leted [facility] Norgestimate-Ethinyl Estradiol (Ortho Tr i-Cyclen (28)) 0.18/0.215/0.25 mg-35 mcg (28) tablet 05/18/2020 02:35:41 AM EDT 1 TAB comp leted [facility] Norgestimate-Ethinyl Estradiol (Ortho Tr i-Cyclen (28)) 0.18/0.215/0.25 mg-35 mcg (28) tablet 05/18/2020 02:35:41 AM EDT 1 TAB acti ve [facility] Norgestimate-Ethinyl Estradiol (Ortho Tr i-Cyclen (28)) 0.18/0.215/0.25 mg-35 mcg (28) tablet 05/18/2020 02:35:41 [facility] Estradiol (Ortho Tr i-Cyclen (28)) 0.18/0.215/0.25 mg-35 mcg (28) tablet 05/18/2020 02:35:41 AM EDT 1 TAB comp [facility] Norgestimate-Ethinyl Estradiol (Ortho Tr i-Cyclen (28)) 0.18/0.215/0.25 mg-35 mcg (28) tablet 05/18/2020 02:35:41 AM EDT 1 TAB comp [facility] Norgestimate-Ethinyl Estradiol (Ortho Tr i-Cyclen (28)) 0.18/0.215/0.25 mg-35 mcg (28) tablet 05/18/2020 02:35:41 AM EDT 1 TAB comp [facility] Norgestimate-Ethinyl Estradiol (Ortho Tr i-Cyclen (28)) 0.18/0.215/0.25 mg-35 mcg (28) tablet 05/18/2020 02:35:41 AM [facility]-Ethinyl Estradiol (Ortho Tr i-Cyclen (28)) 0.18/0.215/0.25 mg-35 mcg (28) tablet 05/18/2020 02:35:41 AM EDT 1 TAB comp [facility] Norgestimate-Ethinyl Estradiol (Ortho Tr i-Cyclen (28)) 0.18/0.215/0.25 mg-35 mcg (28) tablet 05/18/2020 02:35:41 AM EDT 1 TAB comp [facility] Norgestimate-Ethinyl Estradiol (Ortho Tr i-Cyclen (28)) 0.18/0.215/0.25 mg-35 mcg (28) tablet 05/18/2020 02:35:41 AM EDT 1 TAB comp [facility] Norgestimate-Ethinyl Estradiol (Ortho Tr i-Cyclen (28)) 0.18/0.215/0.25 mg-35 mcg (28) tablet 05/18/2020 02:35:41 AM EDT 1 TAB comp [facility] Norgestimate-Ethinyl Estradiol (Ortho Tr i-Cyclen (28)) 0.18/0.215/0.25 mg-35 mcg (28) tablet 05/18/2020 02:35:41 AM EDT 1 TAB comp [facility] Norgestimate-Ethinyl Estradiol (Ortho Tr i-Cyclen (28)) 0.18/0.215/0.25 mg-35 mcg (28) tablet 05/18/2020 02:35:41 AM EDT 1 TAB comp [facility] Norgestimate-Ethinyl Estradiol (Ortho Tr i-Cyclen (28)) 0.18/0.215/0.25 mg-35 mcg (28) tablet 05/18/2020 02:35:41 AM EDT 1 TAB comp [facility] Norgestimate-Ethinyl Estradiol (Ortho Tr i-Cyclen (28)) 0.18/0.215/0.25 mg-35 mcg (28) tablet 05/18/2020 02:35:41 AM EDT 1 TAB acti [facility] Norgestimate-Ethinyl Estradiol (Ortho Tr i-Cyclen (28)) 0.18/0.215/0.25 mg-35 mcg (28) tablet 05/18/2020 02:35:41 AM EDT 1 TAB acti [facility] Norgestimate-Ethinyl Estradiol (Ortho Tr i-Cyclen (28)) 0.18/0.215/0.25 mg-35 mcg (28) tablet 05/18/2020 02:35:41 AM EDT 1 TAB comp [facility] Norgestimate-Ethinyl Estradiol (Ortho Tr i-Cyclen (28)) 0.18/0.215/0.25 mg-35 mcg (28) tablet 05/18/2020 02:35:41 AM EDT 1 TAB comp [facility] Norgestimate-Ethinyl Estradiol (Ortho Tr i-Cyclen (28)) 0.18/0.215/0.25 mg-35 mcg (28) tablet 05/18/2020 02:35:41 AM EDT 1 TAB comp [facility] Norgestimate-Ethinyl Estradiol (Ortho Tr i-Cyclen (28)) 0.18/0.215/0.25 mg-35 mcg (28) tablet 05/18/2020 02:35:41 AM EDT 1 TAB comp [facility] Norgestimate-Ethinyl Estradiol (Ortho Tr i-Cyclen (28)) 0.18/0.215/0.25 mg-35 mcg (28) tablet 05/18/2020 02:35:41 AM EDT 1 TAB acti [facility] Norgestimate-Ethinyl Estradiol (Ortho Tr i-Cyclen (28)) 0.18/0.215/0.25 mg-35 mcg (28) tablet 05/18/2020 02:35:41 AM EDT 1 TAB comp [facility] Norgestimate-Ethinyl Estradiol (Ortho Tr i-Cyclen (28)) 0.18/0.215/0.25 mg-35 mcg (28) tablet 05/18/2020 02:35:41 AM EDT 1 TAB comp [facility] Norgestimate-Ethinyl Estradiol (Ortho Tr i-Cyclen (28)) 0.18/0.215/0.25 mg-35 mcg (28) tablet 05/18/2020 02:35:41 AM EDT 1 TAB comp [facility] Norgestimate-Ethinyl Estradiol (Ortho Tr i-Cyclen (28)) 0.18/0.215/0.25 mg-35 mcg (28) tablet 05/18/2020 02:35:41 AM EDT 1 TAB acti [facility] Norgestimate-Ethinyl Estradiol (Ortho Tr i-Cyclen (28)) 0.18/0.215/0.25 mg-35 mcg (28) tablet 05/18/2020 02:35:41 AM EDT 1 TAB comp [facility] Lactobacillus Combination No.9 (Adult 50 Plus Probioti c) 4 billion cell capsule 05/06/2020 01:39:34 PM EDT 4000 MMU CELLS complete d [facility] Lactobacillus Combination No.9 (Adult 50 Plus Probioti c) 4 billion cell capsule 05/06/2020 01:39:34 PM EDT 4000 MMU CELLS complete d [facility] Lactobacillus Combination No.9 (Adult 50 Plus Probioti c) 4 billion cell capsule 05/06/2020 01:39:34 PM EDT 4000 MMU CELLS complete d [facility] Lactobacillus Combination No.9 (Adult 50 Plus Probioti c) 4 billion cell capsule 05/06/2020 01:39:34 PM EDT 4000 MMU CELLS complete [facility] Lactobacillus Combination No.9 (Adult 50 Plus Probioti c) 4 billion cell capsule 05/06/2020 01:39:34 PM EDT 4000 MMU CELLS complete d [facility] Lactobacillus Combination No.9 (Adult 50 Plus Probioti c) 4 billion cell capsule 05/06/2020 01:39:34 PM EDT 4000 MMU CELLS complete d [facility] Lactobacillus Combination No.9 (Adult 50 Plus Probioti c) 4 billion cell capsule 05/06/2020 01:39:34 PM EDT 4000 MMU CELLS complete [facility] Lactobacillus Combination No.9 (Adult 50 Plus Probioti c) 4 billion cell capsule 05/06/2020 01:39:34 PM EDT 4000 MMU CELLS complete [facility] Lactobacillus Combination No.9 (Adult 50 Plus Probioti c) 4 billion cell capsule 05/06/2020 01:39:34 PM EDT 4000 MMU CELLS complete [facility] Lactobacillus Combination No.9 (Adult 50 Plus Probioti c) 4 billion cell capsule 05/06/2020 01:39:34 PM EDT 4000 MMU CELLS complete [facility] Lactobacillus Combination No.9 (Adult 50 Plus Probioti c) 4 billion cell capsule 05/06/2020 01:39:34 PM EDT 4000 MMU CELLS complete [facility] Lactobacillus Combination No.9 (Adult 50 Plus Probioti c) 4 billion cell capsule 05/06/2020 01:39:34 PM EDT 4000 MMU CELLS complete [facility] Lactobacillus Combination No.9 (Adult 50 Plus Probioti c) 4 billion cell capsule 05/06/2020 01:39:34 PM EDT 4000 MMU CELLS complete [facility] Lactobacillus Combination No.9 (Adult 50 Plus Probioti c) 4 billion cell capsule 05/06/2020 01:39:34 PM EDT 4000 MMU CELLS complete [facility] Lactobacillus Combination No.9 (Adult 50 Plus Probioti c) 4 billion cell capsule 05/06/2020 01:39:34 PM EDT 4000 MMU CELLS complete [facility] Lactobacillus Combination No.9 (Adult 50 Plus Probioti c) 4 billion cell capsule 05/06/2020 01:39:34 PM EDT 4000 MMU CELLS complete [facility] Lactobacillus Combination No.9 (Adult 50 Plus Probioti c) 4 billion cell capsule 05/06/2020 01:39:34 PM EDT 4000 MMU CELLS complete [facility] Lactobacillus Combination No.9 (Adult 50 Plus Probioti c) 4 billion cell capsule 05/06/2020 01:39:34 PM EDT 4000 MMU CELLS complete [facility] Lactobacillus Combination No.9 (Adult 50 Plus Probioti c) 4 billion cell capsule 05/06/2020 01:39:34 PM EDT 4000 MMU CELLS complete [facility] Lactobacillus Combination No.9 (Adult 50 Plus Probioti c) 4 billion cell capsule 05/06/2020 01:39:34 PM EDT 4000 MMU CELLS complete [facility] Lactobacillus Combination No.9 (Adult 50 Plus Probioti c) 4 billion cell capsule 05/06/2020 01:39:34 PM EDT 4000 MMU CELLS complete [facility] Lactobacillus Combination No.9 (Adult 50 Plus Probioti c) 4 billion cell capsule 05/06/2020 01:39:34 PM EDT 4000 MMU CELLS complete [facility] Lactobacillus Combination No.9 (Adult 50 Plus Probioti c) 4 billion cell capsule 05/06/2020 01:39:34 PM EDT 4000 MMU CELLS complete [facility] Lactobacillus Combination No.9 (Adult 50 Plus Probioti c) 4 billion cell capsule 05/06/2020 01:39:34 PM EDT 4000 MMU CELLS complete [facility] Lactobacillus Combination No.9 (Adult 50 Plus Probioti c) 4 billion cell capsule 05/06/2020 01:39:34 PM EDT 4000 MMU CELLS complete [facility] Lactobacillus Combination No.9 (Adult 50 Plus Probioti c) 4 billion cell capsule 05/06/2020 01:39:34 PM EDT 4000 MMU CELLS complete [facility] Lactobacillus Combination No.9 (Adult 50 Plus Probioti c) 4 billion cell capsule 05/06/2020 01:39:34 PM EDT 4000 MMU CELLS complete d [facility] Psyllium 520 MG Oral Capsule TGT Psyllium Fiber 05/03/2020 12:00:00 A M EDT completed [facility] ([facility]) Metoclopramide 5 MG Oral Tablet Metoclopramide HCL 05/03/2020 12:00 :00 AM EDT ORAL completed [facility] ([facility] ) Sertraline 50 MG Oral Tablet Sertraline 04/24/2020 03:35:59 PM EDT 50 MG completed [facility] Sertraline 50 MG Oral Tablet Sertraline 04/24/2020 03:35:59 PM EDT 50 MG active [facility] Sertraline 50 MG Oral Tablet Sertraline 04/24/2020 03:35:59 PM EDT 50 MG active [facility] Sertraline 50 MG Oral Tablet Sertraline 04/24/2020 03:35:59 PM EDT 50 MG completed [facility] Sertraline 50 MG Oral Tablet Sertraline 04/24/2020 03:35:59 PM EDT 50 MG completed [facility] Sertraline 50 MG Oral Tablet Sertraline 04/24/2020 03:35:59 PM EDT 50 MG completed [facility] Sertraline 50 MG Oral Tablet Sertraline 04/24/2020 03:35:59 PM EDT 50 MG active [facility] Sertraline 50 MG Oral Tablet Sertraline 04/24/2020 03:35:59 PM EDT 50 MG completed [facility] Sertraline 50 MG Oral Tablet Sertraline 04/24/2020 03:35:59 PM EDT 50 MG completed [facility] Sertraline 50 MG Oral Tablet Sertraline 04/24/2020 03:35:59 PM EDT 50 MG completed [facility] Sertraline 50 MG Oral Tablet Sertraline 04/24/2020 03:35:59 PM EDT 50 MG completed [facility] Sertraline 50 MG Oral Tablet Sertraline 04/24/2020 03:35:59 PM EDT 50 MG completed [facility] Sertraline 50 MG Oral Tablet Sertraline 04/24/2020 03:35:59 PM EDT 50 MG completed [facility] Sertraline 50 MG Oral Tablet Sertraline 04/24/2020 03:35:59 PM EDT 50 MG completed [facility] Sertraline 50 MG Oral Tablet Sertraline 04/24/2020 03:35:59 PM EDT 50 MG completed [facility] Sertraline 50 MG Oral Tablet Sertraline 04/24/2020 03:35:59 PM EDT 50 MG active [facility] Sertraline 50 MG Oral Tablet Sertraline 04/24/2020 03:35:59 PM EDT 50 MG completed [facility] Sertraline 50 MG Oral Tablet Sertraline 04/24/2020 03:35:59 PM EDT 50 MG completed [facility] Sertraline 50 MG Oral Tablet Sertraline 04/24/2020 03:35:59 PM EDT 50 MG active [facility] Sertraline 50 MG Oral Tablet Sertraline 04/24/2020 03:35:59 PM EDT 50 MG completed [facility] Sertraline 50 MG Oral Tablet Sertraline 04/24/2020 03:35:59 PM EDT 50 MG active [facility] Sertraline 50 MG Oral Tablet Sertraline 04/24/2020 03:35:59 PM EDT 50 MG completed [facility] Sertraline 50 MG Oral Tablet Sertraline 04/24/2020 03:35:59 PM EDT 50 MG completed [facility] Sertraline 50 MG Oral Tablet Sertraline 04/24/2020 03:35:59 PM EDT 50 MG completed [facility] Sertraline 50 MG Oral Tablet Sertraline 04/24/2020 03:35:59 PM EDT 50 MG completed [facility] Sertraline 50 MG Oral Tablet Sertraline 04/24/2020 03:35:59 PM EDT 50 MG active [facility] Sertraline 50 MG Oral Tablet Sertraline 04/24/2020 03:35:59 PM EDT 50 MG completed [facility] 120 ACTUAT Budesonide 0.08 MG/ACTUAT / f ormoterol fumarate 0.0045 MG/ACTUAT Metered Dose Inhaler Budesonide-Formoterol Budesonide-Formoterol 04/24/2020 03:35:50 PM EDT 2 PUFFS completed [facility] 120 ACTUAT Budesonide 0.08 MG/ACTUAT / f ormoterol fumarate 0.0045 MG/ACTUAT Metered Dose Inhaler Budesonide-Formoterol Budesonide-Formoterol 04/24/2020 03:35:50 PM EDT 2 PUFFS completed [facility] 120 ACTUAT Budesonide 0.08 MG/ACTUAT / f ormoterol fumarate 0.0045 MG/ACTUAT Metered Dose Inhaler Budesonide-Formoterol Budesonide-Formoterol 04/24/2020 03:35:50 PM EDT 2 PUFFS completed [facility] 120 ACTUAT Budesonide 0.08 MG/ACTUAT / f ormoterol fumarate 0.0045 MG/ACTUAT Metered Dose Inhaler Budesonide-Formoterol Budesonide-Formoterol 04/24/2020 03:35:50 PM EDT 2 PUFFS completed [facility] 120 ACTUAT Budesonide 0.08 MG/ACTUAT / f ormoterol fumarate 0.0045 MG/ACTUAT Metered Dose Inhaler Budesonide-Formoterol Budesonide-Formoterol 04/24/2020 03:35:50 PM EDT 2 PUFFS completed [facility] 120 ACTUAT Budesonide 0.08 MG/ACTUAT / f ormoterol fumarate 0.0045 MG/ACTUAT Metered Dose Inhaler Budesonide-Formoterol Budesonide-Formoterol 04/24/2020 03:35:50 PM EDT 2 PUFFS completed [facility] 120 ACTUAT Budesonide 0.08 MG/ACTUAT / f ormoterol fumarate 0.0045 MG/ACTUAT Metered Dose Inhaler Budesonide-Formoterol Budesonide-Formoterol 04/24/2020 03:35:50 PM EDT 2 PUFFS completed [facility] 120 ACTUAT Budesonide 0.08 MG/ACTUAT / f ormoterol fumarate 0.0045 MG/ACTUAT Metered Dose Inhaler Budesonide-Formoterol Budesonide-Formoterol 04/24/2020 03:35:50 PM EDT 2 PUFFS completed [facility] 120 ACTUAT Budesonide 0.08 MG/ACTUAT / f ormoterol fumarate 0.0045 MG/ACTUAT Metered Dose Inhaler Budesonide-Formoterol Budesonide-Formoterol 04/24/2020 03:35:50 PM EDT 2 PUFFS completed [facility] 120 ACTUAT Budesonide 0.08 MG/ACTUAT / f ormoterol fumarate 0.0045 MG/ACTUAT Metered Dose Inhaler Budesonide-Formoterol Budesonide-Formoterol 04/24/2020 03:35:50 PM EDT 2 PUFFS completed [facility] 120 ACTUAT Budesonide 0.08 MG/ACTUAT / f ormoterol fumarate 0.0045 MG/ACTUAT Metered Dose Inhaler Budesonide-Formoterol Budesonide-Formoterol 04/24/2020 03:35:50 PM EDT 2 PUFFS active [facility] 120 ACTUAT Budesonide 0.08 MG/ACTUAT / f ormoterol fumarate 0.0045 MG/ACTUAT Metered Dose Inhaler Budesonide-Formoterol Budesonide-Formoterol 04/24/2020 03:35:50 PM EDT 2 PUFFS completed [facility] 120 ACTUAT Budesonide 0.08 MG/ACTUAT / f ormoterol fumarate 0.0045 MG/ACTUAT Metered Dose Inhaler Budesonide-Formoterol Budesonide-Formoterol 04/24/2020 03:35:50 PM EDT 2 PUFFS completed [facility] 120 ACTUAT Budesonide 0.08 MG/ACTUAT / f ormoterol fumarate 0.0045 MG/ACTUAT Metered Dose Inhaler Budesonide-Formoterol Budesonide-Formoterol 04/24/2020 03:35:50 PM EDT 2 PUFFS completed [facility] 120 ACTUAT Budesonide 0.08 MG/ACTUAT / f ormoterol fumarate 0.0045 MG/ACTUAT Metered Dose Inhaler Budesonide-Formoterol Budesonide-Formoterol 04/24/2020 03:35:50 PM EDT 2 PUFFS completed [facility] 120 ACTUAT Budesonide 0.08 MG/ACTUAT / f ormoterol fumarate 0.0045 MG/ACTUAT Metered Dose Inhaler Budesonide-Formoterol Budesonide-Formoterol 04/24/2020 03:35:50 PM EDT 2 PUFFS completed [facility] 120 ACTUAT Budesonide 0.08 MG/ACTUAT / f ormoterol fumarate 0.0045 MG/ACTUAT Metered Dose Inhaler Budesonide-Formoterol Budesonide-Formoterol 04/24/2020 03:35:50 PM EDT 2 PUFFS active [facility] 120 ACTUAT Budesonide 0.08 MG/ACTUAT / f ormoterol fumarate 0.0045 MG/ACTUAT Metered Dose Inhaler Budesonide-Formoterol Budesonide-Formoterol 04/24/2020 03:35:50 PM EDT 2 PUFFS completed [facility] 120 ACTUAT Budesonide 0.08 MG/ACTUAT / f ormoterol fumarate 0.0045 MG/ACTUAT Metered Dose Inhaler Budesonide-Formoterol Budesonide-Formoterol 04/24/2020 03:35:50 PM EDT 2 PUFFS completed [facility] 120 ACTUAT Budesonide 0.08 MG/ACTUAT / f ormoterol fumarate 0.0045 MG/ACTUAT Metered Dose Inhaler Budesonide-Formoterol Budesonide-Formoterol 04/24/2020 03:35:50 PM EDT 2 PUFFS completed [facility] 120 ACTUAT Budesonide 0.08 MG/ACTUAT / f ormoterol fumarate 0.0045 MG/ACTUAT Metered Dose Inhaler Budesonide-Formoterol Budesonide-Formoterol 04/24/2020 03:35:50 PM EDT 2 PUFFS completed [facility] 120 ACTUAT Budesonide 0.08 MG/ACTUAT / f ormoterol fumarate 0.0045 MG/ACTUAT Metered Dose Inhaler Budesonide-Formoterol Budesonide-Formoterol 04/24/2020 03:35:50 PM EDT 2 PUFFS completed [facility] 120 ACTUAT Budesonide 0.08 MG/ACTUAT / f ormoterol fumarate 0.0045 MG/ACTUAT Metered Dose Inhaler Budesonide-Formoterol Budesonide-Formoterol 04/24/2020 03:35:50 PM EDT 2 PUFFS completed [facility] 120 ACTUAT Budesonide 0.08 MG/ACTUAT / f ormoterol fumarate 0.0045 MG/ACTUAT Metered Dose Inhaler Budesonide-Formoterol Budesonide-Formoterol 04/24/2020 03:35:50 PM EDT 2 PUFFS completed [facility] 120 ACTUAT Budesonide 0.08 MG/ACTUAT / f ormoterol fumarate 0.0045 MG/ACTUAT Metered Dose Inhaler Budesonide-Formoterol Budesonide-Formoterol 04/24/2020 03:35:50 PM EDT 2 PUFFS active [facility] 120 ACTUAT Budesonide 0.08 MG/ACTUAT / f ormoterol fumarate 0.0045 MG/ACTUAT Metered Dose Inhaler Budesonide-Formoterol Budesonide-Formoterol 04/24/2020 03:35:50 PM EDT 2 PUFFS active [facility] 120 ACTUAT Budesonide 0.08 MG/ACTUAT / f ormoterol fumarate 0.0045 MG/ACTUAT Metered Dose Inhaler Budesonide-Formoterol Budesonide-Formoterol 04/24/2020 03:35:50 PM EDT 2 PUFFS completed [facility] Norgestimate-Ethinyl Estradiol (Ortho Tr i-Cyclen (28)) 0.18/0.215/0.25 mg-35 mcg (28) tablet 04/15/2020 10:23:54 AM EDT 1 TAB comp leted [facility] Norgestimate-Ethinyl Estradiol (Ortho Tr i-Cyclen (28)) 0.18/0.215/0.25 mg-35 mcg (28) tablet 04/15/2020 10:23:54 AM EDT 1 TAB comp leted [facility] Norgestimate-Ethinyl Estradiol (Ortho Tr i-Cyclen (28)) 0.18/0.215/0.25 mg-35 mcg (28) tablet 04/15/2020 10:23:54 AM EDT 1 TAB comp leted [facility] Norgestimate-Ethinyl Estradiol (Ortho Tr i-Cyclen (28)) 0.18/0.215/0.25 mg-35 mcg (28) tablet 04/15/2020 10:23:54 AM EDT 1 TAB comp [facility] Norgestimate-Ethinyl Estradiol (Ortho Tr i-Cyclen (28)) 0.18/0.215/0.25 mg-35 mcg (28) tablet 04/15/2020 10:23:54 AM EDT 1 TAB comp [facility] Norgestimate-Ethinyl Estradiol (Ortho Tr i-Cyclen (28)) 0.18/0.215/0.25 mg-35 mcg (28) tablet 04/15/2020 10:23:54 AM EDT 1 TAB comp [facility] Norgestimate-Ethinyl Estradiol (Ortho Tr i-Cyclen (28)) 0.18/0.215/0.25 mg-35 mcg (28) tablet 04/15/2020 10:23:54 AM EDT 1 TAB comp [facility] Norgestimate-Ethinyl Estradiol (Ortho Tr i-Cyclen (28)) 0.18/0.215/0.25 mg-35 mcg (28) tablet 04/15/2020 10:23:54 AM EDT 1 TAB comp [facility] Norgestimate-Ethinyl Estradiol (Ortho Tr i-Cyclen (28)) 0.18/0.215/0.25 mg-35 mcg (28) tablet 04/15/2020 10:23:54 AM EDT 1 TAB comp [facility] Norgestimate-Ethinyl Estradiol (Ortho Tr i-Cyclen (28)) 0.18/0.215/0.25 mg-35 mcg (28) tablet 04/15/2020 10:23:54 AM EDT 1 TAB comp [facility] Norgestimate-Ethinyl Estradiol (Ortho Tr i-Cyclen (28)) 0.18/0.215/0.25 mg-35 mcg (28) tablet 04/15/2020 10:23:54 AM EDT 1 TAB comp [facility] Norgestimate-Ethinyl Estradiol (Ortho Tr i-Cyclen (28)) 0.18/0.215/0.25 mg-35 mcg (28) tablet 04/15/2020 10:23:54 AM EDT 1 TAB comp [facility] Norgestimate-Ethinyl Estradiol (Ortho Tr i-Cyclen (28)) 0.18/0.215/0.25 mg-35 mcg (28) tablet 04/15/2020 10:23:54 AM EDT 1 TAB comp [facility] Norgestimate-Ethinyl Estradiol (Ortho Tr i-Cyclen (28)) 0.18/0.215/0.25 mg-35 mcg (28) tablet 04/15/2020 10:23:54 AM EDT 1 TAB comp [facility] Norgestimate-Ethinyl Estradiol (Ortho Tr i-Cyclen (28)) 0.18/0.215/0.25 mg-35 mcg (28) tablet 04/15/2020 10:23:54 AM EDT 1 TAB comp [facility] Norgestimate-Ethinyl Estradiol (Ortho Tr i-Cyclen (28)) 0.18/0.215/0.25 mg-35 mcg (28) tablet 04/15/2020 10:23:54 AM EDT 1 TAB comp [facility] Norgestimate-Ethinyl Estradiol (Ortho Tr i-Cyclen (28)) 0.18/0.215/0.25 mg-35 mcg (28) tablet 04/15/2020 10:23:54 AM EDT 1 TAB comp [facility] Norgestimate-Ethinyl Estradiol (Ortho Tr i-Cyclen (28)) 0.18/0.215/0.25 mg-35 mcg (28) tablet 04/15/2020 10:23:54 AM EDT 1 TAB comp [facility] Norgestimate-Ethinyl Estradiol (Ortho Tr i-Cyclen (28)) 0.18/0.215/0.25 mg-35 mcg (28) tablet 04/15/2020 10:23:54 AM EDT 1 TAB comp [facility] Norgestimate-Ethinyl Estradiol (Ortho Tr i-Cyclen (28)) 0.18/0.215/0.25 mg-35 mcg (28) tablet 04/15/2020 10:23:54 AM EDT 1 TAB comp [facility] Norgestimate-Ethinyl Estradiol (Ortho Tr i-Cyclen (28)) 0.18/0.215/0.25 mg-35 mcg (28) tablet 04/15/2020 10:23:54 AM EDT 1 TAB comp [facility] Norgestimate-Ethinyl Estradiol (Ortho Tr i-Cyclen (28)) 0.18/0.215/0.25 mg-35 mcg (28) tablet 04/15/2020 10:23:54 AM EDT 1 TAB comp [facility] Norgestimate-Ethinyl Estradiol (Ortho Tr i-Cyclen (28)) 0.18/0.215/0.25 mg-35 mcg (28) tablet 04/15/2020 10:23:54 AM EDT 1 TAB comp [facility] Norgestimate-Ethinyl Estradiol (Ortho Tr i-Cyclen (28)) 0.18/0.215/0.25 mg-35 mcg (28) tablet 04/15/2020 10:23:54 AM EDT 1 TAB comp [facility] Norgestimate-Ethinyl Estradiol (Ortho Tr i-Cyclen (28)) 0.18/0.215/0.25 mg-35 mcg (28) tablet 04/15/2020 10:23:54 AM EDT 1 TAB comp [facility] Norgestimate-Ethinyl Estradiol (Ortho Tr i-Cyclen (28)) 0.18/0.215/0.25 mg-35 mcg (28) tablet 04/15/2020 10:23:54 AM EDT 1 TAB comp [facility] Norgestimate-Ethinyl Estradiol (Ortho Tr i-Cyclen (28)) 0.18/0.215/0.25 mg-35 mcg (28) tablet 04/15/2020 10:23:54 AM EDT 1 TAB comp [facility] 120 ACTUAT Budesonide 0.08 MG/ACTUAT / f ormoterol fumarate 0.0045 MG/ACTUAT Metered Dose Inhaler Budesonide-Formoterol Budesonide-Formoterol 03/28/2020 08:46:16 AM EDT 2 PUFFS active [facility] 120 ACTUAT Budesonide 0.08 MG/ACTUAT / f ormoterol fumarate 0.0045 MG/ACTUAT Metered Dose Inhaler Budesonide-Formoterol Budesonide-Formoterol 03/28/2020 08:46:16 AM EDT 2 PUFFS completed [facility] 120 ACTUAT Budesonide 0.08 MG/ACTUAT / f ormoterol fumarate 0.0045 MG/ACTUAT Metered Dose Inhaler Budesonide-Formoterol Budesonide-Formoterol 03/28/2020 08:46:16 AM EDT 2 PUFFS completed [facility] 120 ACTUAT Budesonide 0.08 MG/ACTUAT / f ormoterol fumarate 0.0045 MG/ACTUAT Metered Dose Inhaler Budesonide-Formoterol Budesonide-Formoterol 03/28/2020 08:46:16 AM EDT 2 PUFFS completed [facility] 120 ACTUAT Budesonide 0.08 MG/ACTUAT / f ormoterol fumarate 0.0045 MG/ACTUAT Metered Dose Inhaler Budesonide-Formoterol Budesonide-Formoterol 03/28/2020 08:46:16 AM EDT 2 PUFFS completed [facility] 120 ACTUAT Budesonide 0.08 MG/ACTUAT / f ormoterol fumarate 0.0045 MG/ACTUAT Metered Dose Inhaler Budesonide-Formoterol Budesonide-Formoterol 03/28/2020 08:46:16 AM EDT 2 PUFFS completed [facility] 120 ACTUAT Budesonide 0.08 MG/ACTUAT / f ormoterol fumarate 0.0045 MG/ACTUAT Metered Dose Inhaler Budesonide-Formoterol Budesonide-Formoterol 03/28/2020 08:46:16 AM EDT 2 PUFFS completed [facility] 120 ACTUAT Budesonide 0.08 MG/ACTUAT / f ormoterol fumarate 0.0045 MG/ACTUAT Metered Dose Inhaler Budesonide-Formoterol Budesonide-Formoterol 03/28/2020 08:46:16 AM EDT 2 PUFFS completed [facility] 120 ACTUAT Budesonide 0.08 MG/ACTUAT / f ormoterol fumarate 0.0045 MG/ACTUAT Metered Dose Inhaler Budesonide-Formoterol Budesonide-Formoterol 03/28/2020 08:46:16 AM EDT 2 PUFFS completed [facility] 120 ACTUAT Budesonide 0.08 MG/ACTUAT / f ormoterol fumarate 0.0045 MG/ACTUAT Metered Dose Inhaler Budesonide-Formoterol Budesonide-Formoterol 03/28/2020 08:46:16 AM EDT 2 PUFFS completed [facility] 120 ACTUAT Budesonide 0.08 MG/ACTUAT / f ormoterol fumarate 0.0045 MG/ACTUAT Metered Dose Inhaler Budesonide-Formoterol Budesonide-Formoterol 03/28/2020 08:46:16 AM EDT 2 PUFFS completed [facility] 120 ACTUAT Budesonide 0.08 MG/ACTUAT / f ormoterol fumarate 0.0045 MG/ACTUAT Metered Dose Inhaler Budesonide-Formoterol Budesonide-Formoterol 03/28/2020 08:46:16 AM EDT 2 PUFFS completed [facility] 120 ACTUAT Budesonide 0.08 MG/ACTUAT / f ormoterol fumarate 0.0045 MG/ACTUAT Metered Dose Inhaler Budesonide-Formoterol Budesonide-Formoterol 03/28/2020 08:46:16 AM EDT 2 PUFFS completed [facility] 120 ACTUAT Budesonide 0.08 MG/ACTUAT / f ormoterol fumarate 0.0045 MG/ACTUAT Metered Dose Inhaler Budesonide-Formoterol Budesonide-Formoterol 03/28/2020 08:46:16 AM EDT 2 PUFFS completed [facility] 120 ACTUAT Budesonide 0.08 MG/ACTUAT / f ormoterol fumarate 0.0045 MG/ACTUAT Metered Dose Inhaler Budesonide-Formoterol Budesonide-Formoterol 03/28/2020 08:46:16 AM EDT 2 PUFFS completed [facility] 120 ACTUAT Budesonide 0.08 MG/ACTUAT / f ormoterol fumarate 0.0045 MG/ACTUAT Metered Dose Inhaler Budesonide-Formoterol Budesonide-Formoterol 03/28/2020 08:46:16 AM EDT 2 PUFFS completed [facility] 120 ACTUAT Budesonide 0.08 MG/ACTUAT / f ormoterol fumarate 0.0045 MG/ACTUAT Metered Dose Inhaler Budesonide-Formoterol Budesonide-Formoterol 03/28/2020 08:46:16 AM EDT 2 PUFFS completed [facility] 120 ACTUAT Budesonide 0.08 MG/ACTUAT / f ormoterol fumarate 0.0045 MG/ACTUAT Metered Dose Inhaler Budesonide-Formoterol Budesonide-Formoterol 03/28/2020 08:46:16 AM EDT 2 PUFFS completed [facility] 120 ACTUAT Budesonide 0.08 MG/ACTUAT / f ormoterol fumarate 0.0045 MG/ACTUAT Metered Dose Inhaler Budesonide-Formoterol Budesonide-Formoterol 03/28/2020 08:46:16 AM EDT 2 PUFFS completed [facility] 120 ACTUAT Budesonide 0.08 MG/ACTUAT / f ormoterol fumarate 0.0045 MG/ACTUAT Metered Dose Inhaler Budesonide-Formoterol Budesonide-Formoterol 03/28/2020 08:46:16 AM EDT 2 PUFFS completed [facility] 120 ACTUAT Budesonide 0.08 MG/ACTUAT / f ormoterol fumarate 0.0045 MG/ACTUAT Metered Dose Inhaler Budesonide-Formoterol Budesonide-Formoterol 03/28/2020 08:46:16 AM EDT 2 PUFFS completed [facility] 120 ACTUAT Budesonide 0.08 MG/ACTUAT / f ormoterol fumarate 0.0045 MG/ACTUAT Metered Dose Inhaler Budesonide-Formoterol Budesonide-Formoterol 03/28/2020 08:46:16 AM EDT 2 PUFFS completed [facility] 120 ACTUAT Budesonide 0.08 MG/ACTUAT / f ormoterol fumarate 0.0045 MG/ACTUAT Metered Dose Inhaler Budesonide-Formoterol Budesonide-Formoterol 03/28/2020 08:46:16 AM EDT 2 PUFFS completed [facility] 120 ACTUAT Budesonide 0.08 MG/ACTUAT / f ormoterol fumarate 0.0045 MG/ACTUAT Metered Dose Inhaler Budesonide-Formoterol Budesonide-Formoterol 03/28/2020 08:46:16 AM EDT 2 PUFFS completed [facility] 120 ACTUAT Budesonide 0.08 MG/ACTUAT / f ormoterol fumarate 0.0045 MG/ACTUAT Metered Dose Inhaler Budesonide-Formoterol Budesonide-Formoterol 03/28/2020 08:46:16 AM EDT 2 PUFFS completed [facility] 120 ACTUAT Budesonide 0.08 MG/ACTUAT / f ormoterol fumarate 0.0045 MG/ACTUAT Metered Dose Inhaler Budesonide-Formoterol Budesonide-Formoterol 03/28/2020 08:46:16 AM EDT 2 PUFFS completed [facility] 120 ACTUAT Budesonide 0.08 MG/ACTUAT / f ormoterol fumarate 0.0045 MG/ACTUAT Metered Dose Inhaler Budesonide-Formoterol Budesonide-Formoterol 03/28/2020 08:46:16 AM EDT 2 PUFFS completed [facility] 120 ACTUAT Budesonide 0.08 MG/ACTUAT / f ormoterol fumarate 0.0045 MG/ACTUAT Metered Dose Inhaler Budesonide-Formoterol Budesonide-Formoterol 03/28/2020 08:46:16 AM EDT 2 PUFFS completed [facility] Sertraline 50 MG Oral Tablet Sertraline 03/28/2020 08:45:52 AM EDT 50 MG completed [facility] Sertraline 50 MG Oral Tablet Sertraline 03/28/2020 08:45:52 AM EDT 50 MG completed [facility] Sertraline 50 MG Oral Tablet Sertraline 03/28/2020 08:45:52 AM EDT 50 MG completed [facility] Sertraline 50 MG Oral Tablet Sertraline 03/28/2020 08:45:52 AM EDT 50 MG completed [facility] Sertraline 50 MG Oral Tablet Sertraline 03/28/2020 08:45:52 AM EDT 50 MG completed [facility] Sertraline 50 MG Oral Tablet Sertraline 03/28/2020 08:45:52 AM EDT 50 MG completed [facility] Sertraline 50 MG Oral Tablet Sertraline 03/28/2020 08:45:52 AM EDT 50 MG completed [facility] Sertraline 50 MG Oral Tablet Sertraline 03/28/2020 08:45:52 AM EDT 50 MG completed [facility] Sertraline 50 MG Oral Tablet Sertraline 03/28/2020 08:45:52 AM EDT 50 MG completed [facility] Sertraline 50 MG Oral Tablet Sertraline 03/28/2020 08:45:52 AM EDT 50 MG completed [facility] Sertraline 50 MG Oral Tablet Sertraline 03/28/2020 08:45:52 AM EDT 50 MG completed [facility] Sertraline 50 MG Oral Tablet Sertraline 03/28/2020 08:45:52 AM EDT 50 MG completed [facility] Sertraline 50 MG Oral Tablet Sertraline 03/28/2020 08:45:52 AM EDT 50 MG completed [facility] Sertraline 50 MG Oral Tablet Sertraline 03/28/2020 08:45:52 AM EDT 50 MG completed [facility] Sertraline 50 MG Oral Tablet Sertraline 03/28/2020 08:45:52 AM EDT 50 MG completed [facility] Sertraline 50 MG Oral Tablet Sertraline 03/28/2020 08:45:52 AM EDT 50 MG completed [facility] Sertraline 50 MG Oral Tablet Sertraline 03/28/2020 08:45:52 AM EDT 50 MG completed [facility] Sertraline 50 MG Oral Tablet Sertraline 03/28/2020 08:45:52 AM EDT 50 MG completed [facility] Sertraline 50 MG Oral Tablet Sertraline 03/28/2020 08:45:52 AM EDT 50 MG completed [facility] Sertraline 50 MG Oral Tablet Sertraline 03/28/2020 08:45:52 AM EDT 50 MG completed [facility] Sertraline 50 MG Oral Tablet Sertraline 03/28/2020 08:45:52 AM EDT 50 MG completed [facility] Sertraline 50 MG Oral Tablet Sertraline 03/28/2020 08:45:52 AM EDT 50 MG completed [facility] Sertraline 50 MG Oral Tablet Sertraline 03/28/2020 08:45:52 AM EDT 50 MG completed [facility] Sertraline 50 MG Oral Tablet Sertraline 03/28/2020 08:45:52 AM EDT 50 MG completed [facility] Sertraline 50 MG Oral Tablet Sertraline 03/28/2020 08:45:52 AM EDT 50 MG completed [facility] Sertraline 50 MG Oral Tablet Sertraline 03/28/2020 08:45:52 AM EDT 50 MG completed [facility] Sertraline 50 MG Oral Tablet Sertraline 03/28/2020 08:45:52 AM EDT 50 MG active [facility] Sertraline 50 MG Oral Tablet Sertraline 03/28/2020 08:45:52 AM EDT 50 MG completed [facility] Miconazole Nitrate 20 MG/ML Vaginal Crea m Miconazole Nitrate (Monistat 7) 2 % cream Miconazole Nitrate (Monistat 7) 2 % cream 03/23/2020 04:06:41 PM EDT 1 APPFUL completed [facility] Miconazole Nitrate 20 MG/ML Vaginal Crea m Miconazole Nitrate (Monistat 7) 2 % cream Miconazole Nitrate (Monistat 7) 2 % cream 03/23/2020 04:06:41 PM EDT 1 APPFUL completed [facility] Miconazole Nitrate 20 MG/ML Vaginal Crea m Miconazole Nitrate (Monistat 7) 2 % cream Miconazole Nitrate (Monistat 7) 2 % cream 03/23/2020 04:06:41 PM EDT 1 APPFUL completed [facility] Miconazole Nitrate 20 MG/ML Vaginal Crea m Miconazole Nitrate (Monistat 7) 2 % cream Miconazole Nitrate (Monistat 7) 2 % cream 03/23/2020 04:06:41 PM EDT 1 APPFUL active [facility] Miconazole Nitrate 20 MG/ML Vaginal Crea m Miconazole Nitrate (Monistat 7) 2 % cream Miconazole Nitrate (Monistat 7) 2 % cream 03/23/2020 04:06:41 PM EDT 1 APPFUL completed [facility] Miconazole Nitrate 20 MG/ML Vaginal Crea m Miconazole Nitrate (Monistat 7) 2 % cream Miconazole Nitrate (Monistat 7) 2 % cream 03/23/2020 04:06:41 PM EDT 1 APPFUL completed [facility] Miconazole Nitrate 20 MG/ML Vaginal Crea m Miconazole Nitrate (Monistat 7) 2 % cream Miconazole Nitrate (Monistat 7) 2 % cream 03/23/2020 04:06:41 PM EDT 1 APPFUL completed [facility] Miconazole Nitrate 20 MG/ML Vaginal Crea m Miconazole Nitrate (Monistat 7) 2 % cream Miconazole Nitrate (Monistat 7) 2 % cream 03/23/2020 04:06:41 PM EDT 1 APPFUL completed [facility] Miconazole Nitrate 20 MG/ML Vaginal Crea m Miconazole Nitrate (Monistat 7) 2 % cream Miconazole Nitrate (Monistat 7) 2 % cream 03/23/2020 04:06:41 PM EDT 1 APPFUL completed [facility] Miconazole Nitrate 20 MG/ML Vaginal Crea m Miconazole Nitrate (Monistat 7) 2 % cream Miconazole Nitrate (Monistat 7) 2 % cream 03/23/2020 04:06:41 PM EDT 1 APPFUL completed [facility] Miconazole Nitrate 20 MG/ML Vaginal Crea m Miconazole Nitrate (Monistat 7) 2 % cream Miconazole Nitrate (Monistat 7) 2 % cream 03/23/2020 04:06:41 PM EDT 1 APPFUL completed [facility] Miconazole Nitrate 20 MG/ML Vaginal Crea m Miconazole Nitrate (Monistat 7) 2 % cream Miconazole Nitrate (Monistat 7) 2 % cream 03/23/2020 04:06:41 PM EDT 1 APPFUL active [facility] Miconazole Nitrate 20 MG/ML Vaginal Crea m Miconazole Nitrate (Monistat 7) 2 % cream Miconazole Nitrate (Monistat 7) 2 % cream 03/23/2020 04:06:41 PM EDT 1 APPFUL completed [facility] Miconazole Nitrate 20 MG/ML Vaginal Crea m Miconazole Nitrate (Monistat 7) 2 % cream Miconazole Nitrate (Monistat 7) 2 % cream 03/23/2020 04:06:41 PM EDT 1 APPFUL completed [facility] Miconazole Nitrate 20 MG/ML Vaginal Crea m Miconazole Nitrate (Monistat 7) 2 % cream Miconazole Nitrate (Monistat 7) 2 % cream 03/23/2020 04:06:41 PM EDT 1 APPFUL completed [facility] Miconazole Nitrate 20 MG/ML Vaginal Crea m Miconazole Nitrate (Monistat 7) 2 % cream Miconazole Nitrate (Monistat 7) 2 % cream 03/23/2020 04:06:41 PM EDT 1 APPFUL active [facility] Miconazole Nitrate 20 MG/ML Vaginal Crea m Miconazole Nitrate (Monistat 7) 2 % cream Miconazole Nitrate (Monistat 7) 2 % cream 03/23/2020 04:06:41 PM EDT 1 APPFUL completed [facility] Miconazole Nitrate 20 MG/ML Vaginal Crea m Miconazole Nitrate (Monistat 7) 2 % cream Miconazole Nitrate (Monistat 7) 2 % cream 03/23/2020 04:06:41 PM EDT 1 APPFUL completed [facility] Miconazole Nitrate 20 MG/ML Vaginal Crea m Miconazole Nitrate (Monistat 7) 2 % cream Miconazole Nitrate (Monistat 7) 2 % cream 03/23/2020 04:06:41 PM EDT 1 APPFUL completed [facility] Miconazole Nitrate 20 MG/ML Vaginal Crea m Miconazole Nitrate (Monistat 7) 2 % cream Miconazole Nitrate (Monistat 7) 2 % cream 03/23/2020 04:06:41 PM EDT 1 APPFUL completed [facility] Miconazole Nitrate 20 MG/ML Vaginal Crea m Miconazole Nitrate (Monistat 7) 2 % cream Miconazole Nitrate (Monistat 7) 2 % cream 03/23/2020 04:06:41 PM EDT 1 APPFUL completed [facility] Miconazole Nitrate 20 MG/ML Vaginal Crea m Miconazole Nitrate (Monistat 7) 2 % cream Miconazole Nitrate (Monistat 7) 2 % cream 03/23/2020 04:06:41 PM EDT 1 APPFUL completed [facility] Miconazole Nitrate 20 MG/ML Vaginal Crea m Miconazole Nitrate (Monistat 7) 2 % cream Miconazole Nitrate (Monistat 7) 2 % cream 03/23/2020 04:06:41 PM EDT 1 APPFUL completed [facility] Miconazole Nitrate 20 MG/ML Vaginal Crea m Miconazole Nitrate (Monistat 7) 2 % cream Miconazole Nitrate (Monistat 7) 2 % cream 03/23/2020 04:06:41 PM EDT 1 APPFUL completed [facility] Miconazole Nitrate 20 MG/ML Vaginal Crea m Miconazole Nitrate (Monistat 7) 2 % cream Miconazole Nitrate (Monistat 7) 2 % cream 03/23/2020 04:06:41 PM EDT 1 APPFUL completed [facility] Miconazole Nitrate 20 MG/ML Vaginal Crea m Miconazole Nitrate (Monistat 7) 2 % cream Miconazole Nitrate (Monistat 7) 2 % cream 03/23/2020 04:06:41 PM EDT 1 APPFUL completed [facility] Miconazole Nitrate 20 MG/ML Vaginal Crea m Miconazole Nitrate (Monistat 7) 2 % cream Miconazole Nitrate (Monistat 7) 2 % cream 03/23/2020 04:06:41 PM EDT 1 APPFUL completed [facility] Miconazole Nitrate 20 MG/ML Vaginal Crea m Miconazole Nitrate (Monistat 7) 2 % cream Miconazole Nitrate (Monistat 7) 2 % cream 03/23/2020 04:06:41 PM EDT 1 APPFUL completed [facility] Miconazole Nitrate 20 MG/ML Vaginal Crea m Miconazole Nitrate (Monistat 7) 2 % cream Miconazole Nitrate (Monistat 7) 2 % cream 03/23/2020 04:06:41 PM EDT 1 APPFUL completed [facility] Miconazole Nitrate 20 MG/ML Vaginal Crea m Miconazole Nitrate (Monistat 7) 2 % cream Miconazole Nitrate (Monistat 7) 2 % cream 03/23/2020 04:06:41 PM EDT 1 APPFUL completed [facility] benzonatate 100 MG Oral Capsule Benzonatate (Tessalon Perles) 100 mg capsule Benzonatate (Tessalon Perles) 100 mg capsule 03/23/2020 04:04:44 PM EDT 100 MG completed [facility] benzonatate 100 MG Oral Capsule Benzonatate (Tessalon Perles) 100 mg capsule Benzonatate (Tessalon Perles) 100 mg capsule 03/23/2020 04:04:44 PM EDT [address] [facility] benzonatate 100 MG Oral Capsule Benzonatate (Tessalon Perles) 100 mg capsule Benzonatate (Tessalon Perles) 100 mg capsule 03/23/2020 04:04:44 PM EDT [address] [facility] benzonatate 100 MG Oral Capsule Benzonatate (Tessalon Perles) 100 mg capsule Benzonatate (Tessalon Perles) 100 mg capsule 03/23/2020 04:04:44 PM EDT 100 MG completed [facility] benzonatate 100 MG Oral Capsule Benzonatate (Tessalon Perles) 100 mg capsule Benzonatate (Tessalon Perles) 100 mg capsule 03/23/2020 04:04:44 PM EDT 100 MG completed [facility] benzonatate 100 MG Oral Capsule Benzonatate (Tessalon Perles) 100 mg capsule Benzonatate (Tessalon Perles) 100 mg capsule 03/23/2020 04:04:44 PM EDT 100 MG completed [facility] benzonatate 100 MG Oral Capsule Benzonatate (Tessalon Perles) 100 mg capsule Benzonatate (Tessalon Perles) 100 mg capsule 03/23/2020 04:04:44 PM EDT 100 MG completed [facility] benzonatate 100 MG Oral Capsule Benzonatate (Tessalon Perles) 100 mg capsule Benzonatate (Tessalon Perles) 100 mg capsule 03/23/2020 04:04:44 PM EDT 100 MG completed [facility] benzonatate 100 MG Oral Capsule Benzonatate (Tessalon Perles) 100 mg capsule Benzonatate (Tessalon Perles) 100 mg capsule 03/23/2020 04:04:44 PM EDT [address] [facility] benzonatate 100 MG Oral Capsule Benzonatate (Tessalon Perles) 100 mg capsule Benzonatate (Tessalon Perles) 100 mg capsule 03/23/2020 04:04:44 PM EDT 100 MG completed [facility] benzonatate 100 MG Oral Capsule Benzonatate (Tessalon Perles) 100 mg capsule Benzonatate (Tessalon Perles) 100 mg capsule 03/23/2020 04:04:44 PM EDT 100 MG completed [facility] benzonatate 100 MG Oral Capsule Benzonatate (Tessalon Perles) 100 mg capsule Benzonatate (Tessalon Perles) 100 mg capsule 03/23/2020 04:04:44 PM EDT 100 MG completed [facility] benzonatate 100 MG Oral Capsule Benzonatate (Tessalon Perles) 100 mg capsule Benzonatate (Tessalon Perles) 100 mg capsule 03/23/2020 04:04:44 PM EDT 100 MG completed [facility] benzonatate 100 MG Oral Capsule Benzonatate (Tessalon Perles) 100 mg capsule Benzonatate (Tessalon Perles) 100 mg capsule 03/23/2020 04:04:44 PM EDT 100 MG completed [facility] benzonatate 100 MG Oral Capsule Benzonatate (Tessalon Perles) 100 mg capsule Benzonatate (Tessalon Perles) 100 mg capsule 03/23/2020 04:04:44 PM EDT 100 MG active [facility] benzonatate 100 MG Oral Capsule Benzonatate (Tessalon Perles) 100 mg capsule Benzonatate (Tessalon Perles) 100 mg capsule 03/23/2020 04:04:44 PM EDT 100 MG completed [facility] benzonatate 100 MG Oral Capsule Benzonatate (Tessalon Perles) 100 mg capsule Benzonatate (Tessalon Perles) 100 mg capsule 03/23/2020 04:04:44 PM EDT 100 MG completed [facility] benzonatate 100 MG Oral Capsule Benzonatate (Tessalon Perles) 100 mg capsule Benzonatate (Tessalon Perles) 100 mg capsule 03/23/2020 04:04:44 PM EDT 100 MG completed [facility] benzonatate 100 MG Oral Capsule Benzonatate (Tessalon Perles) 100 mg capsule Benzonatate (Tessalon Perles) 100 mg capsule 03/23/2020 04:04:44 PM EDT 100 MG active [facility] benzonatate 100 MG Oral Capsule Benzonatate (Tessalon Perles) 100 mg capsule Benzonatate (Tessalon Perles) 100 mg capsule 03/23/2020 04:04:44 PM EDT 100 MG completed [facility] benzonatate 100 MG Oral Capsule Benzonatate (Tessalon Perles) 100 mg capsule Benzonatate (Tessalon Perles) 100 mg capsule 03/23/2020 04:04:44 PM EDT 100 MG completed [facility] benzonatate 100 MG Oral Capsule Benzonatate (Tessalon Perles) 100 mg capsule Benzonatate (Tessalon Perles) 100 mg capsule 03/23/2020 04:04:44 PM EDT 100 MG completed [facility] benzonatate 100 MG Oral Capsule Benzonatate (Tessalon Perles) 100 mg capsule Benzonatate (Tessalon Perles) 100 mg capsule 03/23/2020 04:04:44 PM EDT 100 MG active [facility] benzonatate 100 MG Oral Capsule Benzonatate (Tessalon Perles) 100 mg capsule Benzonatate (Tessalon Perles) 100 mg capsule 03/23/2020 04:04:44 PM EDT 100 MG completed [facility] benzonatate 100 MG Oral Capsule Benzonatate (Tessalon Perles) 100 mg capsule Benzonatate (Tessalon Perles) 100 mg capsule 03/23/2020 04:04:44 PM EDT 100 MG completed [facility] benzonatate 100 MG Oral Capsule Benzonatate (Tessalon Perles) 100 mg capsule Benzonatate (Tessalon Perles) 100 mg capsule 03/23/2020 04:04:44 PM EDT 100 MG completed [facility] benzonatate 100 MG Oral Capsule Benzonatate (Tessalon Perles) 100 mg capsule Benzonatate (Tessalon Perles) 100 mg capsule 03/23/2020 04:04:44 PM EDT 100 MG completed [facility] benzonatate 100 MG Oral Capsule Benzonatate (Tessalon Perles) 100 mg capsule Benzonatate (Tessalon Perles) 100 mg capsule 03/23/2020 04:04:44 PM EDT 100 MG completed [facility] benzonatate 100 MG Oral Capsule Benzonatate (Tessalon Perles) 100 mg capsule Benzonatate (Tessalon Perles) 100 mg capsule 03/23/2020 04:04:44 PM EDT 100 MG completed [facility] benzonatate 100 MG Oral Capsule Benzonatate (Tessalon Perles) 100 mg capsule Benzonatate (Tessalon Perles) 100 mg capsule 03/23/2020 04:04:44 PM EDT 100 MG completed [facility] Amoxicillin 875 MG / Clavulanate 125 MG Oral Tablet Amoxicillin-Pot Clavulanate (Augmentin) 875-125 mg tablet Amoxicillin-Pot Clavulanate (Augmentin) 875-125 mg tablet 03/23/2020 04:04:22 PM EDT 1 TAB completed [facility] Amoxicillin 875 MG / Clavulanate 125 MG Oral Tablet Amoxicillin-Pot Clavulanate (Augmentin) 875-125 mg tablet Amoxicillin-Pot Clavulanate (Augmentin) 875-125 mg tablet 03/23/2020 04:04:22 PM EDT 1 TAB completed [facility] Amoxicillin 875 MG / Clavulanate 125 MG Oral Tablet Amoxicillin-Pot Clavulanate (Augmentin) 875-125 mg tablet Amoxicillin-Pot Clavulanate (Augmentin) 875-125 mg tablet 03/23/2020 04:04:22 PM EDT 1 TAB completed [facility] Amoxicillin 875 MG / Clavulanate 125 MG Oral Tablet Amoxicillin-Pot Clavulanate (Augmentin) 875-125 mg tablet Amoxicillin-Pot Clavulanate (Augmentin) 875-125 mg tablet 03/23/2020 04:04:22 PM EDT 1 TAB completed [facility] Amoxicillin 875 MG / Clavulanate 125 MG Oral Tablet Amoxicillin-Pot Clavulanate (Augmentin) 875-125 mg tablet Amoxicillin-Pot Clavulanate (Augmentin) 875-125 mg tablet 03/23/2020 04:04:22 PM EDT 1 TAB completed [facility] Amoxicillin 875 MG / Clavulanate 125 MG Oral Tablet Amoxicillin-Pot Clavulanate (Augmentin) 875-125 mg tablet Amoxicillin-Pot Clavulanate (Augmentin) 875-125 mg tablet 03/23/2020 04:04:22 PM EDT 1 TAB completed [facility] Amoxicillin 875 MG / Clavulanate 125 MG Oral Tablet Amoxicillin-Pot Clavulanate (Augmentin) 875-125 mg tablet Amoxicillin-Pot Clavulanate (Augmentin) 875-125 mg tablet 03/23/2020 04:04:22 PM EDT 1 TAB completed [facility] Amoxicillin 875 MG / Clavulanate 125 MG Oral Tablet Amoxicillin-Pot Clavulanate (Augmentin) 875-125 mg tablet Amoxicillin-Pot Clavulanate (Augmentin) 875-125 mg tablet 03/23/2020 04:04:22 PM EDT 1 TAB completed [facility] Amoxicillin 875 MG / Clavulanate 125 MG Oral Tablet Amoxicillin-Pot Clavulanate (Augmentin) 875-125 mg tablet Amoxicillin-Pot Clavulanate (Augmentin) 875-125 mg tablet 03/23/2020 04:04:22 PM EDT 1 TAB active [facility] Amoxicillin 875 MG / Clavulanate 125 MG Oral Tablet Amoxicillin-Pot Clavulanate (Augmentin) 875-125 mg tablet Amoxicillin-Pot Clavulanate (Augmentin) 875-125 mg tablet 03/23/2020 04:04:22 PM EDT 1 TAB completed [facility] Amoxicillin 875 MG / Clavulanate 125 MG Oral Tablet Amoxicillin-Pot Clavulanate (Augmentin) 875-125 mg tablet Amoxicillin-Pot Clavulanate (Augmentin) 875-125 mg tablet 03/23/2020 04:04:22 PM EDT 1 TAB completed [facility] Amoxicillin 875 MG / Clavulanate 125 MG Oral Tablet Amoxicillin-Pot Clavulanate (Augmentin) 875-125 mg tablet Amoxicillin-Pot Clavulanate (Augmentin) 875-125 mg tablet 03/23/2020 04:04:22 PM EDT 1 TAB completed [facility] Amoxicillin 875 MG / Clavulanate 125 MG Oral Tablet Amoxicillin-Pot Clavulanate (Augmentin) 875-125 mg tablet Amoxicillin-Pot Clavulanate (Augmentin) 875-125 mg tablet 03/23/2020 04:04:22 PM EDT 1 TAB completed [facility] Amoxicillin 875 MG / Clavulanate 125 MG Oral Tablet Amoxicillin-Pot Clavulanate (Augmentin) 875-125 mg tablet Amoxicillin-Pot Clavulanate (Augmentin) 875-125 mg tablet 03/23/2020 04:04:22 PM EDT 1 TAB completed [facility] Amoxicillin 875 MG / Clavulanate 125 MG Oral Tablet Amoxicillin-Pot Clavulanate (Augmentin) 875-125 mg tablet Amoxicillin-Pot Clavulanate (Augmentin) 875-125 mg tablet 03/23/2020 04:04:22 PM EDT 1 TAB completed [facility] Amoxicillin 875 MG / Clavulanate 125 MG Oral Tablet Amoxicillin-Pot Clavulanate (Augmentin) 875-125 mg tablet Amoxicillin-Pot Clavulanate (Augmentin) 875-125 mg tablet 03/23/2020 04:04:22 PM EDT 1 TAB completed [facility] Amoxicillin 875 MG / Clavulanate 125 MG Oral Tablet Amoxicillin-Pot Clavulanate (Augmentin) 875-125 mg tablet Amoxicillin-Pot Clavulanate (Augmentin) 875-125 mg tablet 03/23/2020 04:04:22 PM EDT 1 TAB completed [facility] Amoxicillin 875 MG / Clavulanate 125 MG Oral Tablet Amoxicillin-Pot Clavulanate (Augmentin) 875-125 mg tablet Amoxicillin-Pot Clavulanate (Augmentin) 875-125 mg tablet 03/23/2020 04:04:22 PM EDT 1 TAB completed [facility] Amoxicillin 875 MG / Clavulanate 125 MG Oral Tablet Amoxicillin-Pot Clavulanate (Augmentin) 875-125 mg tablet Amoxicillin-Pot Clavulanate (Augmentin) 875-125 mg tablet 03/23/2020 04:04:22 PM EDT 1 TAB completed [facility] Amoxicillin 875 MG / Clavulanate 125 MG Oral Tablet Amoxicillin-Pot Clavulanate (Augmentin) 875-125 mg tablet Amoxicillin-Pot Clavulanate (Augmentin) 875-125 mg tablet 03/23/2020 04:04:22 PM EDT 1 TAB completed [facility] Amoxicillin 875 MG / Clavulanate 125 MG Oral Tablet Amoxicillin-Pot Clavulanate (Augmentin) 875-125 mg tablet Amoxicillin-Pot Clavulanate (Augmentin) 875-125 mg tablet 03/23/2020 04:04:22 PM EDT 1 TAB completed [facility] Amoxicillin 875 MG / Clavulanate 125 MG Oral Tablet Amoxicillin-Pot Clavulanate (Augmentin) 875-125 mg tablet Amoxicillin-Pot Clavulanate (Augmentin) 875-125 mg tablet 03/23/2020 04:04:22 PM EDT 1 TAB active [facility] Amoxicillin 875 MG / Clavulanate 125 MG Oral Tablet Amoxicillin-Pot Clavulanate (Augmentin) 875-125 mg tablet Amoxicillin-Pot Clavulanate (Augmentin) 875-125 mg tablet 03/23/2020 04:04:22 PM EDT 1 TAB completed [facility] Amoxicillin 875 MG / Clavulanate 125 MG Oral Tablet Amoxicillin-Pot Clavulanate (Augmentin) 875-125 mg tablet Amoxicillin-Pot Clavulanate (Augmentin) 875-125 mg tablet 03/23/2020 04:04:22 PM EDT 1 TAB completed [facility] Amoxicillin 875 MG / Clavulanate 125 MG Oral Tablet Amoxicillin-Pot Clavulanate (Augmentin) 875-125 mg tablet Amoxicillin-Pot Clavulanate (Augmentin) 875-125 mg tablet 03/23/2020 04:04:22 PM EDT 1 TAB completed [facility] Amoxicillin 875 MG / Clavulanate 125 MG Oral Tablet Amoxicillin-Pot Clavulanate (Augmentin) 875-125 mg tablet Amoxicillin-Pot Clavulanate (Augmentin) 875-125 mg tablet 03/23/2020 04:04:22 PM EDT 1 TAB completed [facility] Amoxicillin 875 MG / Clavulanate 125 MG Oral Tablet Amoxicillin-Pot Clavulanate (Augmentin) 875-125 mg tablet Amoxicillin-Pot Clavulanate (Augmentin) 875-125 mg tablet 03/23/2020 04:04:22 PM EDT 1 TAB completed [facility] Amoxicillin 875 MG / Clavulanate 125 MG Oral Tablet Amoxicillin-Pot Clavulanate (Augmentin) 875-125 mg tablet Amoxicillin-Pot Clavulanate (Augmentin) 875-125 mg tablet 03/23/2020 04:04:22 PM EDT 1 TAB completed [facility] Amoxicillin 875 MG / Clavulanate 125 MG Oral Tablet Amoxicillin-Pot Clavulanate (Augmentin) 875-125 mg tablet Amoxicillin-Pot Clavulanate (Augmentin) 875-125 mg tablet 03/23/2020 04:04:22 PM EDT 1 TAB active [facility] Amoxicillin 875 MG / Clavulanate 125 MG Oral Tablet Amoxicillin-Pot Clavulanate (Augmentin) 875-125 mg tablet Amoxicillin-Pot Clavulanate (Augmentin) 875-125 mg tablet 03/23/2020 04:04:22 PM EDT 1 TAB completed [facility] quetiapine 25 MG Oral Tablet Quetiapine Quetiapine 03/12/2020 02: 59:31 PM EDT 25 MG active [facility] quetiapine 25 MG Oral Tablet Quetiapine Quetiapine 03/12/2020 02: 59:31 PM EDT 25 MG completed [facility] quetiapine 25 MG Oral Tablet Quetiapine Quetiapine 03/12/2020 02: 59:31 PM EDT 25 MG completed [facility] quetiapine 25 MG Oral Tablet Quetiapine Quetiapine 03/12/2020 02: 59:31 PM EDT 25 MG completed [facility] quetiapine 25 MG Oral Tablet Quetiapine Quetiapine 03/12/2020 02: 59:31 PM EDT 25 MG completed [facility] quetiapine 25 MG Oral Tablet Quetiapine Quetiapine 03/12/2020 02: 59:31 PM EDT 25 MG active [facility] quetiapine 25 MG Oral Tablet Quetiapine Quetiapine 03/12/2020 02: 59:31 PM EDT 25 MG completed [facility] quetiapine 25 MG Oral Tablet Quetiapine Quetiapine 03/12/2020 02: 59:31 PM EDT 25 MG active [facility] quetiapine 25 MG Oral Tablet Quetiapine Quetiapine 03/12/2020 02: 59:31 PM EDT 25 MG completed [facility] quetiapine 25 MG Oral Tablet Quetiapine Quetiapine 03/12/2020 02: 59:31 PM EDT 25 MG completed [facility] quetiapine 25 MG Oral Tablet Quetiapine Quetiapine 03/12/2020 02: 59:31 PM EDT 25 MG completed [facility] quetiapine 25 MG Oral Tablet Quetiapine Quetiapine 03/12/2020 02: 59:31 PM EDT 25 MG active [facility] quetiapine 25 MG Oral Tablet Quetiapine Quetiapine 03/12/2020 02: 59:31 PM EDT 25 MG active [facility] quetiapine 25 MG Oral Tablet Quetiapine Quetiapine 03/12/2020 02: 59:31 PM EDT 25 MG active [facility] quetiapine 25 MG Oral Tablet Quetiapine Quetiapine 03/12/2020 02: 59:31 PM EDT 25 MG completed [facility] quetiapine 25 MG Oral Tablet Quetiapine Quetiapine 03/12/2020 02: 59:31 PM EDT 25 MG active [facility] quetiapine 25 MG Oral Tablet Quetiapine Quetiapine 03/12/2020 02: 59:31 PM EDT 25 MG completed [facility] quetiapine 25 MG Oral Tablet Quetiapine Quetiapine 03/12/2020 02: 59:31 PM EDT 25 MG completed [facility] quetiapine 25 MG Oral Tablet Quetiapine Quetiapine 03/12/2020 02: 59:31 PM EDT 25 MG completed [facility] quetiapine 25 MG Oral Tablet Quetiapine Quetiapine 03/12/2020 02: 59:31 PM EDT 25 MG completed [facility] quetiapine 25 MG Oral Tablet Quetiapine Quetiapine 03/12/2020 02: 59:31 PM EDT 25 MG active [facility] quetiapine 25 MG Oral Tablet Quetiapine Quetiapine 03/12/2020 02: 59:31 PM EDT 25 MG active [facility] quetiapine 25 MG Oral Tablet Quetiapine Quetiapine 03/12/2020 02: 59:31 PM EDT 25 MG completed [facility] quetiapine 25 MG Oral Tablet Quetiapine Quetiapine 03/12/2020 02: 59:31 PM EDT 25 MG completed [facility] quetiapine 25 MG Oral Tablet Quetiapine Quetiapine 03/12/2020 02: 59:31 PM EDT 25 MG completed [facility] quetiapine 25 MG Oral Tablet Quetiapine Quetiapine 03/12/2020 02: 59:31 PM EDT 25 MG completed [facility] quetiapine 25 MG Oral Tablet Quetiapine Quetiapine 03/12/2020 02: 59:31 PM EDT 25 MG completed [facility] quetiapine 25 MG Oral Tablet Quetiapine Quetiapine 03/12/2020 02: 59:31 PM EDT 25 MG completed [facility] quetiapine 25 MG Oral Tablet Quetiapine Quetiapine 03/12/2020 02: 59:31 PM EDT 25 MG active [facility] quetiapine 25 MG Oral Tablet Quetiapine Quetiapine 03/12/2020 02: 59:31 PM EDT 25 MG completed [facility] quetiapine 25 MG Oral Tablet Quetiapine Quetiapine 03/12/2020 02: 59:31 PM EDT 25 MG completed [facility] quetiapine 25 MG Oral Tablet Quetiapine Quetiapine 03/12/2020 02: 59:31 PM EDT 25 MG completed [facility] Norgestimate-Ethinyl Estradiol (Ortho Tr i-Cyclen (28)) 0.18/0.215/0.25 mg-35 mcg (28) tablet 03/11/2020 12:47:07 PM EDT 1 TAB acti ve [facility] Norgestimate-Ethinyl Estradiol (Ortho Tr i-Cyclen (28)) 0.18/0.215/0.25 mg-35 mcg (28) tablet 03/11/2020 12:47:07 PM EDT 1 TAB acti ve [facility] Norgestimate-Ethinyl Estradiol (Ortho Tr i-Cyclen (28)) 0.18/0.215/0.25 mg-35 mcg (28) tablet 03/11/2020 12:47:07 PM EDT 1 TAB comp leted [facility] Norgestimate-Ethinyl Estradiol (Ortho Tr i-Cyclen (28)) 0.18/0.215/0.25 mg-35 mcg (28) tablet 03/11/2020 12:47:07 PM EDT 1 TAB comp leted [facility] Norgestimate-Ethinyl Estradiol (Ortho Tr i-Cyclen (28)) 0.18/0.215/0.25 mg-35 mcg (28) tablet 03/11/2020 12:47:07 PM EDT 1 TAB comp [facility] Norgestimate-Ethinyl Estradiol (Ortho Tr i-Cyclen (28)) 0.18/0.215/0.25 mg-35 mcg (28) tablet 03/11/2020 12:47:07 PM EDT 1 TAB comp [facility] Norgestimate-Ethinyl Estradiol (Ortho Tr i-Cyclen (28)) 0.18/0.215/0.25 mg-35 mcg (28) tablet 03/11/2020 12:47:07 PM EDT 1 TAB acti ve [facility] Norgestimate-Ethinyl Estradiol (Ortho Tr i-Cyclen (28)) 0.18/0.215/0.25 mg-35 mcg (28) tablet 03/11/2020 12:47:07 PM EDT 1 TAB comp [facility] Norgestimate-Ethinyl Estradiol (Ortho Tr i-Cyclen (28)) 0.18/0.215/0.25 mg-35 mcg (28) tablet 03/11/2020 12:47:07 PM EDT 1 TAB comp [facility] Norgestimate-Ethinyl Estradiol (Ortho Tr i-Cyclen (28)) 0.18/0.215/0.25 mg-35 mcg (28) tablet 03/11/2020 12:47:07 PM EDT 1 TAB comp [facility] Norgestimate-Ethinyl Estradiol (Ortho Tr i-Cyclen (28)) 0.18/0.215/0.25 mg-35 mcg (28) tablet 03/11/2020 12:47:07 PM EDT 1 TAB comp [facility] Norgestimate-Ethinyl Estradiol (Ortho Tr i-Cyclen (28)) 0.18/0.215/0.25 mg-35 mcg (28) tablet 03/11/2020 12:47:07 PM EDT 1 TAB comp [facility] Norgestimate-Ethinyl Estradiol (Ortho Tr i-Cyclen (28)) 0.18/0.215/0.25 mg-35 mcg (28) tablet 03/11/2020 12:47:07 PM EDT 1 TAB acti ve [facility] Norgestimate-Ethinyl Estradiol (Ortho Tr i-Cyclen (28)) 0.18/0.215/0.25 mg-35 mcg (28) tablet 03/11/2020 12:47:07 PM EDT 1 TAB comp [facility] Norgestimate-Ethinyl Estradiol (Ortho Tr i-Cyclen (28)) 0.18/0.215/0.25 mg-35 mcg (28) tablet 03/11/2020 12:47:07 PM EDT 1 TAB comp [facility] Norgestimate-Ethinyl Estradiol (Ortho Tr i-Cyclen (28)) 0.18/0.215/0.25 mg-35 mcg (28) tablet 03/11/2020 12:47:07 PM EDT 1 TAB comp [facility] Norgestimate-Ethinyl Estradiol (Ortho Tr i-Cyclen (28)) 0.18/0.215/0.25 mg-35 mcg (28) tablet 03/11/2020 12:47:07 PM EDT 1 TAB comp [facility] Norgestimate-Ethinyl Estradiol (Ortho Tr i-Cyclen (28)) 0.18/0.215/0.25 mg-35 mcg (28) tablet 03/11/2020 12:47:07 PM EDT 1 TAB comp [facility] Norgestimate-Ethinyl Estradiol (Ortho Tr i-Cyclen (28)) 0.18/0.215/0.25 mg-35 mcg (28) tablet 03/11/2020 12:47:07 PM EDT 1 TAB acti ve [facility] Norgestimate-Ethinyl Estradiol (Ortho Tr i-Cyclen (28)) 0.18/0.215/0.25 mg-35 mcg (28) tablet 03/11/2020 12:47:07 PM EDT 1 TAB comp [facility] Norgestimate-Ethinyl Estradiol (Ortho Tr i-Cyclen (28)) 0.18/0.215/0.25 mg-35 mcg (28) tablet 03/11/2020 12:47:07 PM EDT 1 TAB comp [facility] Norgestimate-Ethinyl Estradiol (Ortho Tr i-Cyclen (28)) 0.18/0.215/0.25 mg-35 mcg (28) tablet 03/11/2020 12:47:07 PM EDT 1 TAB comp [facility] Norgestimate-Ethinyl Estradiol (Ortho Tr i-Cyclen (28)) 0.18/0.215/0.25 mg-35 mcg (28) tablet 03/11/2020 12:47:07 PM EDT 1 TAB comp [facility] Norgestimate-Ethinyl Estradiol (Ortho Tr i-Cyclen (28)) 0.18/0.215/0.25 mg-35 mcg (28) tablet 03/11/2020 12:47:07 PM EDT 1 TAB comp [facility] Norgestimate-Ethinyl Estradiol (Ortho Tr i-Cyclen (28)) 0.18/0.215/0.25 mg-35 mcg (28) tablet 03/11/2020 12:47:07 PM EDT 1 TAB comp [facility] Norgestimate-Ethinyl Estradiol (Ortho Tr i-Cyclen (28)) 0.18/0.215/0.25 mg-35 mcg (28) tablet 03/11/2020 12:47:07 PM EDT 1 TAB comp [facility] Norgestimate-Ethinyl Estradiol (Ortho Tr i-Cyclen (28)) 0.18/0.215/0.25 mg-35 mcg (28) tablet 03/11/2020 12:47:07 PM EDT 1 TAB comp [facility] Norgestimate-Ethinyl Estradiol (Ortho Tr i-Cyclen (28)) 0.18/0.215/0.25 mg-35 mcg (28) tablet 03/11/2020 12:47:07 PM EDT 1 TAB comp [facility] Norgestimate-Ethinyl Estradiol (Ortho Tr i-Cyclen (28)) 0.18/0.215/0.25 mg-35 mcg (28) tablet 03/11/2020 12:47:07 PM EDT 1 TAB comp [facility] Norgestimate-Ethinyl Estradiol (Ortho Tr i-Cyclen (28)) 0.18/0.215/0.25 mg-35 mcg (28) tablet 03/11/2020 12:47:07 PM EDT 1 TAB comp leted [facility] Norgestimate-Ethinyl Estradiol (Ortho Tr i-Cyclen (28)) 0.18/0.215/0.25 mg-35 mcg (28) tablet 03/11/2020 12:47:07 PM EDT 1 TAB comp leted [facility] Norgestimate-Ethinyl Estradiol (Ortho Tr i-Cyclen (28)) 0.18/0.215/0.25 mg-35 mcg (28) tablet 03/11/2020 12:47:07 PM EDT 1 TAB comp leted [facility] Norgestimate-Ethinyl Estradiol (Ortho Tr i-Cyclen (28)) 0.18/0.215/0.25 mg-35 mcg (28) tablet 03/11/2020 12:47:07 PM EDT 1 TAB acti ve [facility] Promethazine Hydrochloride 25 MG Oral Tablet Promethazine 03/02/2020 02:34:03 PM EDT 25 MG completed [facility] Promethazine Hydrochloride 25 MG Oral Tablet Promethazine 03/02/2020 02:34:03 PM EDT 25 MG completed [facility] Promethazine Hydrochloride 25 MG Oral Tablet Promethazine 03/02/2020 02:34:03 PM EDT 25 MG completed [facility] Promethazine Hydrochloride 25 MG Oral Tablet Promethazine 03/02/2020 02:34:03 PM EDT 25 MG completed [facility] Promethazine Hydrochloride 25 MG Oral Tablet Promethazine 03/02/2020 02:34:03 PM EDT 25 MG completed [facility] Promethazine Hydrochloride 25 MG Oral Tablet Promethazine 03/02/2020 02:34:03 PM EDT 25 MG active [facility] Promethazine Hydrochloride 25 MG Oral Tablet Promethazine 03/02/2020 02:34:03 PM EDT 25 MG completed [facility] Promethazine Hydrochloride 25 MG Oral Tablet Promethazine 03/02/2020 02:34:03 PM EDT 25 MG completed [facility] Promethazine Hydrochloride 25 MG Oral Tablet Promethazine 03/02/2020 02:34:03 PM EDT 25 MG active [facility] Promethazine Hydrochloride 25 MG Oral Tablet Promethazine 03/02/2020 02:34:03 PM EDT 25 MG completed [facility] Promethazine Hydrochloride 25 MG Oral Tablet Promethazine 03/02/2020 02:34:03 PM EDT 25 MG completed [facility] Promethazine Hydrochloride 25 MG Oral Tablet Promethazine 03/02/2020 02:34:03 PM EDT 25 MG completed [facility] Promethazine Hydrochloride 25 MG Oral Tablet Promethazine 03/02/2020 02:34:03 PM EDT 25 MG completed [facility] Promethazine Hydrochloride 25 MG Oral Tablet Promethazine 03/02/2020 02:34:03 PM EDT 25 MG completed [facility] Promethazine Hydrochloride 25 MG Oral Tablet Promethazine 03/02/2020 02:34:03 PM EDT 25 MG completed [facility] Promethazine Hydrochloride 25 MG Oral Tablet Promethazine 03/02/2020 02:34:03 PM EDT 25 MG completed [facility] Promethazine Hydrochloride 25 MG Oral Tablet Promethazine 03/02/2020 02:34:03 PM EDT 25 MG active [facility] Promethazine Hydrochloride 25 MG Oral Tablet Promethazine 03/02/2020 02:34:03 PM EDT 25 MG active [facility] Promethazine Hydrochloride 25 MG Oral Tablet Promethazine 03/02/2020 02:34:03 PM EDT 25 MG completed [facility] Promethazine Hydrochloride 25 MG Oral Tablet Promethazine 03/02/2020 02:34:03 PM EDT 25 MG completed [facility] Promethazine Hydrochloride 25 MG Oral Tablet Promethazine 03/02/2020 02:34:03 PM EDT 25 MG completed [facility] Promethazine Hydrochloride 25 MG Oral Tablet Promethazine 03/02/2020 02:34:03 PM EDT 25 MG completed [facility] Promethazine Hydrochloride 25 MG Oral Tablet Promethazine 03/02/2020 02:34:03 PM EDT 25 MG active [facility] Promethazine Hydrochloride 25 MG Oral Tablet Promethazine 03/02/2020 02:34:03 PM EDT 25 MG completed [facility] Promethazine Hydrochloride 25 MG Oral Tablet Promethazine 03/02/2020 02:34:03 PM EDT 25 MG completed [facility] Promethazine Hydrochloride 25 MG Oral Tablet Promethazine 03/02/2020 02:34:03 PM EDT 25 MG completed [facility] Promethazine Hydrochloride 25 MG Oral Tablet Promethazine 03/02/2020 02:34:03 PM EDT 25 MG completed [facility] Promethazine Hydrochloride 25 MG Oral Tablet Promethazine 03/02/2020 02:34:03 PM EDT 25 MG completed [facility] Promethazine Hydrochloride 25 MG Oral Tablet Promethazine 03/02/2020 02:34:03 PM EDT 25 MG completed [facility] Promethazine Hydrochloride 25 MG Oral Tablet Promethazine 03/02/2020 02:34:03 PM EDT 25 MG completed [facility] Promethazine Hydrochloride 25 MG Oral Tablet Promethazine 03/02/2020 02:34:03 PM EDT 25 MG active [facility] Promethazine Hydrochloride 25 MG Oral Tablet Promethazine 03/02/2020 02:34:03 PM EDT 25 MG completed [facility] Promethazine Hydrochloride 25 MG Oral Tablet Promethazine 03/02/2020 02:34:03 PM EDT 25 MG completed [facility] Promethazine Hydrochloride 25 MG Oral Tablet Promethazine 03/02/2020 02:34:03 PM EDT 25 MG completed [facility] Promethazine Hydrochloride 25 MG Oral Tablet Promethazine 03/02/2020 02:34:03 PM EDT 25 MG completed [facility] Promethazine Hydrochloride 25 MG Oral Tablet Promethazine 03/02/2020 02:34:03 PM EDT 25 MG completed [facility] NITROFURANTOIN, MACROCRYSTALS 25 MG / Ni trofurantoin, Monohydrate 75 MG Oral Capsule Nitrofurantoin Monohyd/M-Cryst (Macrobid) 100 mg capsule Nitrofurantoin Monohyd/M-Cryst (Macrobid) 100 mg capsule 03/02/2020 02:32:46 PM EDT 100 MG completed [facility] NITROFURANTOIN, MACROCRYSTALS 25 MG / Ni trofurantoin, Monohydrate 75 MG Oral Capsule Nitrofurantoin Monohyd/M-Cryst (Macrobid) 100 mg capsule Nitrofurantoin Monohyd/M-Cryst (Macrobid) 100 mg capsule 03/02/2020 02:32:46 PM EDT 100 MG completed [facility] NITROFURANTOIN, MACROCRYSTALS 25 MG / Ni trofurantoin, Monohydrate 75 MG Oral Capsule Nitrofurantoin Monohyd/M-Cryst (Macrobid) 100 mg capsule Nitrofurantoin Monohyd/M-Cryst (Macrobid) 100 mg capsule 03/02/2020 02:32:46 PM EDT 100 MG completed [facility] NITROFURANTOIN, MACROCRYSTALS 25 MG / Ni trofurantoin, Monohydrate 75 MG Oral Capsule Nitrofurantoin Monohyd/M-Cryst (Macrobid) 100 mg capsule Nitrofurantoin Monohyd/M-Cryst (Macrobid) 100 mg capsule 03/02/2020 02:32:46 PM EDT 100 MG completed [facility] NITROFURANTOIN, MACROCRYSTALS 25 MG / Ni trofurantoin, Monohydrate 75 MG Oral Capsule Nitrofurantoin Monohyd/M-Cryst (Macrobid) 100 mg capsule Nitrofurantoin Monohyd/M-Cryst (Macrobid) 100 mg capsule 03/02/2020 02:32:46 PM EDT 100 MG completed [facility] NITROFURANTOIN, MACROCRYSTALS 25 MG / Ni trofurantoin, Monohydrate 75 MG Oral Capsule Nitrofurantoin Monohyd/M-Cryst (Macrobid) 100 mg capsule Nitrofurantoin Monohyd/M-Cryst (Macrobid) 100 mg capsule 03/02/2020 02:32:46 PM EDT 100 MG completed [facility] NITROFURANTOIN, MACROCRYSTALS 25 MG / Ni trofurantoin, Monohydrate 75 MG Oral Capsule Nitrofurantoin Monohyd/M-Cryst (Macrobid) 100 mg capsule Nitrofurantoin Monohyd/M-Cryst (Macrobid) 100 mg capsule 03/02/2020 02:32:46 PM EDT 100 MG completed [facility] NITROFURANTOIN, MACROCRYSTALS 25 MG / Ni trofurantoin, Monohydrate 75 MG Oral Capsule Nitrofurantoin Monohyd/M-Cryst (Macrobid) 100 mg capsule Nitrofurantoin Monohyd/M-Cryst (Macrobid) 100 mg capsule 03/02/2020 02:32:46 PM EDT 100 MG completed [facility] NITROFURANTOIN, MACROCRYSTALS 25 MG / Ni trofurantoin, Monohydrate 75 MG Oral Capsule Nitrofurantoin Monohyd/M-Cryst (Macrobid) 100 mg capsule Nitrofurantoin Monohyd/M-Cryst (Macrobid) 100 mg capsule 03/02/2020 02:32:46 PM EDT 100 MG completed [facility] NITROFURANTOIN, MACROCRYSTALS 25 MG / Ni trofurantoin, Monohydrate 75 MG Oral Capsule Nitrofurantoin Monohyd/M-Cryst (Macrobid) 100 mg capsule Nitrofurantoin Monohyd/M-Cryst (Macrobid) 100 mg capsule 03/02/2020 02:32:46 PM EDT 100 MG completed [facility] NITROFURANTOIN, MACROCRYSTALS 25 MG / Ni trofurantoin, Monohydrate 75 MG Oral Capsule Nitrofurantoin Monohyd/M-Cryst (Macrobid) 100 mg capsule Nitrofurantoin Monohyd/M-Cryst (Macrobid) 100 mg capsule 03/02/2020 02:32:46 PM EDT 100 MG completed [facility] NITROFURANTOIN, MACROCRYSTALS 25 MG / Ni trofurantoin, Monohydrate 75 MG Oral Capsule Nitrofurantoin Monohyd/M-Cryst (Macrobid) 100 mg capsule Nitrofurantoin Monohyd/M-Cryst (Macrobid) 100 mg capsule 03/02/2020 02:32:46 PM EDT 100 MG active [facility] NITROFURANTOIN, MACROCRYSTALS 25 MG / Ni trofurantoin, Monohydrate 75 MG Oral Capsule Nitrofurantoin Monohyd/M-Cryst (Macrobid) 100 mg capsule Nitrofurantoin Monohyd/M-Cryst (Macrobid) 100 mg capsule 03/02/2020 02:32:46 PM EDT 100 MG completed [facility] NITROFURANTOIN, MACROCRYSTALS 25 MG / Ni trofurantoin, Monohydrate 75 MG Oral Capsule Nitrofurantoin Monohyd/M-Cryst (Macrobid) 100 mg capsule Nitrofurantoin Monohyd/M-Cryst (Macrobid) 100 mg capsule 03/02/2020 02:32:46 PM EDT 100 MG completed [facility] NITROFURANTOIN, MACROCRYSTALS 25 MG / Ni trofurantoin, Monohydrate 75 MG Oral Capsule Nitrofurantoin Monohyd/M-Cryst (Macrobid) 100 mg capsule Nitrofurantoin Monohyd/M-Cryst (Macrobid) 100 mg capsule 03/02/2020 02:32:46 PM EDT 100 MG completed [facility] NITROFURANTOIN, MACROCRYSTALS 25 MG / Ni trofurantoin, Monohydrate 75 MG Oral Capsule Nitrofurantoin Monohyd/M-Cryst (Macrobid) 100 mg capsule Nitrofurantoin Monohyd/M-Cryst (Macrobid) 100 mg capsule 03/02/2020 02:32:46 PM EDT 100 MG completed [facility] NITROFURANTOIN, MACROCRYSTALS 25 MG / Ni trofurantoin, Monohydrate 75 MG Oral Capsule Nitrofurantoin Monohyd/M-Cryst (Macrobid) 100 mg capsule Nitrofurantoin Monohyd/M-Cryst (Macrobid) 100 mg capsule 03/02/2020 02:32:46 PM EDT 100 MG active [facility] NITROFURANTOIN, MACROCRYSTALS 25 MG / Ni trofurantoin, Monohydrate 75 MG Oral Capsule Nitrofurantoin Monohyd/M-Cryst (Macrobid) 100 mg capsule Nitrofurantoin Monohyd/M-Cryst (Macrobid) 100 mg capsule 03/02/2020 02:32:46 PM EDT 100 MG completed [facility] NITROFURANTOIN, MACROCRYSTALS 25 MG / Ni trofurantoin, Monohydrate 75 MG Oral Capsule Nitrofurantoin Monohyd/M-Cryst (Macrobid) 100 mg capsule Nitrofurantoin Monohyd/M-Cryst (Macrobid) 100 mg capsule 03/02/2020 02:32:46 PM EDT 100 MG completed [facility] NITROFURANTOIN, MACROCRYSTALS 25 MG / Ni trofurantoin, Monohydrate 75 MG Oral Capsule Nitrofurantoin Monohyd/M-Cryst (Macrobid) 100 mg capsule Nitrofurantoin Monohyd/M-Cryst (Macrobid) 100 mg capsule 03/02/2020 02:32:46 PM EDT 100 MG completed [facility] NITROFURANTOIN, MACROCRYSTALS 25 MG / Ni trofurantoin, Monohydrate 75 MG Oral Capsule Nitrofurantoin Monohyd/M-Cryst (Macrobid) 100 mg capsule Nitrofurantoin Monohyd/M-Cryst (Macrobid) 100 mg capsule 03/02/2020 02:32:46 PM EDT 100 MG completed [facility] NITROFURANTOIN, MACROCRYSTALS 25 MG / Ni trofurantoin, Monohydrate 75 MG Oral Capsule Nitrofurantoin Monohyd/M-Cryst (Macrobid) 100 mg capsule Nitrofurantoin Monohyd/M-Cryst (Macrobid) 100 mg capsule 03/02/2020 02:32:46 PM EDT 100 MG completed [facility] NITROFURANTOIN, MACROCRYSTALS 25 MG / Ni trofurantoin, Monohydrate 75 MG Oral Capsule Nitrofurantoin Monohyd/M-Cryst (Macrobid) 100 mg capsule Nitrofurantoin Monohyd/M-Cryst (Macrobid) 100 mg capsule 03/02/2020 02:32:46 PM EDT 100 MG completed [facility] NITROFURANTOIN, MACROCRYSTALS 25 MG / Ni trofurantoin, Monohydrate 75 MG Oral Capsule Nitrofurantoin Monohyd/M-Cryst (Macrobid) 100 mg capsule Nitrofurantoin Monohyd/M-Cryst (Macrobid) 100 mg capsule 03/02/2020 02:32:46 PM EDT 100 MG completed [facility] NITROFURANTOIN, MACROCRYSTALS 25 MG / Ni trofurantoin, Monohydrate 75 MG Oral Capsule Nitrofurantoin Monohyd/M-Cryst (Macrobid) 100 mg capsule Nitrofurantoin Monohyd/M-Cryst (Macrobid) 100 mg capsule 03/02/2020 02:32:46 PM EDT 100 MG completed [facility] NITROFURANTOIN, MACROCRYSTALS 25 MG / Ni trofurantoin, Monohydrate 75 MG Oral Capsule Nitrofurantoin Monohyd/M-Cryst (Macrobid) 100 mg capsule Nitrofurantoin Monohyd/M-Cryst (Macrobid) 100 mg capsule 03/02/2020 02:32:46 PM EDT 100 MG completed [facility] NITROFURANTOIN, MACROCRYSTALS 25 MG / Ni trofurantoin, Monohydrate 75 MG Oral Capsule Nitrofurantoin Monohyd/M-Cryst (Macrobid) 100 mg capsule Nitrofurantoin Monohyd/M-Cryst (Macrobid) 100 mg capsule 03/02/2020 02:32:46 PM EDT 100 MG completed [facility] NITROFURANTOIN, MACROCRYSTALS 25 MG / Ni trofurantoin, Monohydrate 75 MG Oral Capsule Nitrofurantoin Monohyd/M-Cryst (Macrobid) 100 mg capsule Nitrofurantoin Monohyd/M-Cryst (Macrobid) 100 mg capsule 03/02/2020 02:32:46 PM EDT 100 MG completed [facility] NITROFURANTOIN, MACROCRYSTALS 25 MG / Ni trofurantoin, Monohydrate 75 MG Oral Capsule Nitrofurantoin Monohyd/M-Cryst (Macrobid) 100 mg capsule Nitrofurantoin Monohyd/M-Cryst (Macrobid) 100 mg capsule 03/02/2020 02:32:46 PM EDT 100 MG completed [facility] NITROFURANTOIN, MACROCRYSTALS 25 MG / Ni trofurantoin, Monohydrate 75 MG Oral Capsule Nitrofurantoin Monohyd/M-Cryst (Macrobid) 100 mg capsule Nitrofurantoin Monohyd/M-Cryst (Macrobid) 100 mg capsule 03/02/2020 02:32:46 PM EDT 100 MG completed [facility] NITROFURANTOIN, MACROCRYSTALS 25 MG / Ni trofurantoin, Monohydrate 75 MG Oral Capsule Nitrofurantoin Monohyd/M-Cryst (Macrobid) 100 mg capsule Nitrofurantoin Monohyd/M-Cryst (Macrobid) 100 mg capsule 03/02/2020 02:32:46 PM EDT 100 MG completed [facility] NITROFURANTOIN, MACROCRYSTALS 25 MG / Ni trofurantoin, Monohydrate 75 MG Oral Capsule Nitrofurantoin Monohyd/M-Cryst (Macrobid) 100 mg capsule Nitrofurantoin Monohyd/M-Cryst (Macrobid) 100 mg capsule 03/02/2020 02:32:46 PM EDT 100 MG completed [facility] NITROFURANTOIN, MACROCRYSTALS 25 MG / Ni trofurantoin, Monohydrate 75 MG Oral Capsule Nitrofurantoin Monohyd/M-Cryst (Macrobid) 100 mg capsule Nitrofurantoin Monohyd/M-Cryst (Macrobid) 100 mg capsule 03/02/2020 02:32:46 PM EDT 100 MG completed [facility] NITROFURANTOIN, MACROCRYSTALS 25 MG / Ni trofurantoin, Monohydrate 75 MG Oral Capsule Nitrofurantoin Monohyd/M-Cryst (Macrobid) 100 mg capsule Nitrofurantoin Monohyd/M-Cryst (Macrobid) 100 mg capsule 03/02/2020 02:32:46 PM EDT 100 MG completed [facility] NITROFURANTOIN, MACROCRYSTALS 25 MG / Ni trofurantoin, Monohydrate 75 MG Oral Capsule Nitrofurantoin Monohyd/M-Cryst (Macrobid) 100 mg capsule Nitrofurantoin Monohyd/M-Cryst (Macrobid) 100 mg capsule 03/02/2020 02:32:46 PM EDT 100 MG active [facility] NITROFURANTOIN, MACROCRYSTALS 25 MG / Ni trofurantoin, Monohydrate 75 MG Oral Capsule Nitrofurantoin Monohyd/M-Cryst (Macrobid) 100 mg capsule Nitrofurantoin Monohyd/M-Cryst (Macrobid) 100 mg capsule 03/02/2020 02:32:46 PM EDT 100 MG completed [facility] Omeprazole 20 MG Delayed Release Oral Capsule Omeprazole 02/26/2020 05:14:31 PM EDT 20 MG completed [facility] Omeprazole 20 MG Delayed Release Oral Capsule Omeprazole 02/26/2020 05:14:31 PM EDT 20 MG completed [facility] Omeprazole 20 MG Delayed Release Oral Capsule Omeprazole 02/26/2020 05:14:31 PM EDT 20 MG completed [facility] Omeprazole 20 MG Delayed Release Oral Capsule Omeprazole 02/26/2020 05:14:31 PM EDT 20 MG active [facility] Omeprazole 20 MG Delayed Release Oral Capsule Omeprazole 02/26/2020 05:14:31 PM EDT 20 MG active [facility] Omeprazole 20 MG Delayed Release Oral Capsule Omeprazole 02/26/2020 05:14:31 PM EDT 20 MG completed [facility] Omeprazole 20 MG Delayed Release Oral Capsule Omeprazole 02/26/2020 05:14:31 PM EDT 20 MG completed [facility] Omeprazole 20 MG Delayed Release Oral Capsule Omeprazole 02/26/2020 05:14:31 PM EDT 20 MG completed [facility] Omeprazole 20 MG Delayed Release Oral Capsule Omeprazole 02/26/2020 05:14:31 PM EDT 20 MG completed [facility] Omeprazole 20 MG Delayed Release Oral Capsule Omeprazole 02/26/2020 05:14:31 PM EDT 20 MG active [facility] Omeprazole 20 MG Delayed Release Oral Capsule Omeprazole 02/26/2020 05:14:31 PM EDT 20 MG active [facility] Omeprazole 20 MG Delayed Release Oral Capsule Omeprazole 02/26/2020 05:14:31 PM EDT 20 MG completed [facility] Omeprazole 20 MG Delayed Release Oral Capsule Omeprazole 02/26/2020 05:14:31 PM EDT 20 MG completed [facility] Omeprazole 20 MG Delayed Release Oral Capsule Omeprazole 02/26/2020 05:14:31 PM EDT 20 MG completed [facility] Omeprazole 20 MG Delayed Release Oral Capsule Omeprazole 02/26/2020 05:14:31 PM EDT 20 MG active [facility] Omeprazole 20 MG Delayed Release Oral Capsule Omeprazole 02/26/2020 05:14:31 PM EDT 20 MG active [facility] Omeprazole 20 MG Delayed Release Oral Capsule Omeprazole 02/26/2020 05:14:31 PM EDT 20 MG completed [facility] Omeprazole 20 MG Delayed Release Oral Capsule Omeprazole 02/26/2020 05:14:31 PM EDT 20 MG completed [facility] Omeprazole 20 MG Delayed Release Oral Capsule Omeprazole 02/26/2020 05:14:31 PM EDT 20 MG completed [facility] Omeprazole 20 MG Delayed Release Oral Capsule Omeprazole 02/26/2020 05:14:31 PM EDT 20 MG completed [facility] Omeprazole 20 MG Delayed Release Oral Capsule Omeprazole 02/26/2020 05:14:31 PM EDT 20 MG active [facility] Omeprazole 20 MG Delayed Release Oral Capsule Omeprazole 02/26/2020 05:14:31 PM EDT 20 MG completed [facility] Omeprazole 20 MG Delayed Release Oral Capsule Omeprazole 02/26/2020 05:14:31 PM EDT 20 MG completed [facility] Omeprazole 20 MG Delayed Release Oral Capsule Omeprazole 02/26/2020 05:14:31 PM EDT 20 MG completed [facility] Omeprazole 20 MG Delayed Release Oral Capsule Omeprazole 02/26/2020 05:14:31 PM EDT 20 MG completed [facility] Omeprazole 20 MG Delayed Release Oral Capsule Omeprazole 02/26/2020 05:14:31 PM EDT 20 MG completed [facility] Omeprazole 20 MG Delayed Release Oral Capsule Omeprazole 02/26/2020 05:14:31 PM EDT 20 MG active [facility] Omeprazole 20 MG Delayed Release Oral Capsule Omeprazole 02/26/2020 05:14:31 PM EDT 20 MG completed [facility] Omeprazole 20 MG Delayed Release Oral Capsule Omeprazole 02/26/2020 05:14:31 PM EDT 20 MG active [facility] Omeprazole 20 MG Delayed Release Oral Capsule Omeprazole 02/26/2020 05:14:31 PM EDT 20 MG active [facility] Omeprazole 20 MG Delayed Release Oral Capsule Omeprazole 02/26/2020 05:14:31 PM EDT 20 MG active [facility] Omeprazole 20 MG Delayed Release Oral Capsule Omeprazole 02/26/2020 05:14:31 PM EDT 20 MG completed [facility] Omeprazole 20 MG Delayed Release Oral Capsule Omeprazole 02/26/2020 05:14:31 PM EDT 20 MG active [facility] Omeprazole 20 MG Delayed Release Oral Capsule Omeprazole 02/26/2020 05:14:31 PM EDT 20 MG active [facility] Omeprazole 20 MG Delayed Release Oral Capsule Omeprazole 02/26/2020 05:14:31 PM EDT 20 MG completed [facility] Omeprazole 20 MG Delayed Release Oral Capsule Omeprazole 02/26/2020 05:14:31 PM EDT 20 MG active [facility] 24 HR venlafaxine 150 MG Extended Release Oral Capsule Venla faxine Venlafaxine 02/22/2020 11:18:42 AM EDT 150 MG active [facility] 24 HR venlafaxine 150 MG Extended Release Oral Capsule Venla faxine Venlafaxine 02/22/2020 11:18:42 AM EDT 150 MG completed [facility] 24 HR venlafaxine 150 MG Extended Release Oral Capsule Venla faxine Venlafaxine 02/22/2020 11:18:42 AM EDT 150 MG completed [facility] 24 HR venlafaxine 150 MG Extended Release Oral Capsule Venla faxine Venlafaxine 02/22/2020 11:18:42 AM EDT 150 MG completed [facility] 24 HR venlafaxine 150 MG Extended Release Oral Capsule Venla faxine Venlafaxine 02/22/2020 11:18:42 AM EDT 150 MG completed [facility] 24 HR venlafaxine 150 MG Extended Release Oral Capsule Venla faxine Venlafaxine 02/22/2020 11:18:42 AM EDT 150 MG active [facility] 24 HR venlafaxine 150 MG Extended Release Oral Capsule Venla faxine Venlafaxine 02/22/2020 11:18:42 AM EDT 150 MG completed [facility] 24 HR venlafaxine 150 MG Extended Release Oral Capsule Venla faxine Venlafaxine 02/22/2020 11:18:42 AM EDT 150 MG completed [facility] 24 HR venlafaxine 150 MG Extended Release Oral Capsule Venla faxine Venlafaxine 02/22/2020 11:18:42 AM EDT 150 MG completed [facility] 24 HR venlafaxine 150 MG Extended Release Oral Capsule Venla faxine Venlafaxine 02/22/2020 11:18:42 AM EDT 150 MG completed [facility] 24 HR venlafaxine 150 MG Extended Release Oral Capsule Venla faxine Venlafaxine 02/22/2020 11:18:42 AM EDT 150 MG completed [facility] 24 HR venlafaxine 150 MG Extended Release Oral Capsule Venla faxine Venlafaxine 02/22/2020 11:18:42 AM EDT 150 MG completed [facility] 24 HR venlafaxine 150 MG Extended Release Oral Capsule Venla faxine Venlafaxine 02/22/2020 11:18:42 AM EDT 150 MG active [facility] 24 HR venlafaxine 150 MG Extended Release Oral Capsule Venla faxine Venlafaxine 02/22/2020 11:18:42 AM EDT 150 MG completed [facility] 24 HR venlafaxine 150 MG Extended Release Oral Capsule Venla faxine Venlafaxine 02/22/2020 11:18:42 AM EDT 150 MG active [facility] 24 HR venlafaxine 150 MG Extended Release Oral Capsule Venla faxine Venlafaxine 02/22/2020 11:18:42 AM EDT 150 MG completed [facility] 24 HR venlafaxine 150 MG Extended Release Oral Capsule Venla faxine Venlafaxine 02/22/2020 11:18:42 AM EDT 150 MG completed [facility] 24 HR venlafaxine 150 MG Extended Release Oral Capsule Venla faxine Venlafaxine 02/22/2020 11:18:42 AM EDT 150 MG completed [facility] 24 HR venlafaxine 150 MG Extended Release Oral Capsule Venla faxine Venlafaxine 02/22/2020 11:18:42 AM EDT 150 MG completed [facility] 24 HR venlafaxine 150 MG Extended Release Oral Capsule Venla faxine Venlafaxine 02/22/2020 11:18:42 AM EDT 150 MG completed [facility] 24 HR venlafaxine 150 MG Extended Release Oral Capsule Venla faxine Venlafaxine 02/22/2020 11:18:42 AM EDT 150 MG completed [facility] 24 HR venlafaxine 150 MG Extended Release Oral Capsule Venla faxine Venlafaxine 02/22/2020 11:18:42 AM EDT 150 MG completed [facility] 24 HR venlafaxine 150 MG Extended Release Oral Capsule Venla faxine Venlafaxine 02/22/2020 11:18:42 AM EDT 150 MG completed [facility] 24 HR venlafaxine 150 MG Extended Release Oral Capsule Venla faxine Venlafaxine 02/22/2020 11:18:42 AM EDT 150 MG completed [facility] 24 HR venlafaxine 150 MG Extended Release Oral Capsule Venla faxine Venlafaxine 02/22/2020 11:18:42 AM EDT 150 MG completed [facility] 24 HR venlafaxine 150 MG Extended Release Oral Capsule Venla faxine Venlafaxine 02/22/2020 11:18:42 AM EDT 150 MG active [facility] 24 HR venlafaxine 150 MG Extended Release Oral Capsule Venla faxine Venlafaxine 02/22/2020 11:18:42 AM EDT 150 MG completed [facility] 24 HR venlafaxine 150 MG Extended Release Oral Capsule Venla faxine Venlafaxine 02/22/2020 11:18:42 AM EDT 150 MG completed [facility] 24 HR venlafaxine 150 MG Extended Release Oral Capsule Venla faxine Venlafaxine 02/22/2020 11:18:42 AM EDT 150 MG completed [facility] 24 HR venlafaxine 150 MG Extended Release Oral Capsule Venla faxine Venlafaxine 02/22/2020 11:18:42 AM EDT 150 MG completed [facility] 24 HR venlafaxine 150 MG Extended Release Oral Capsule Venla faxine Venlafaxine 02/22/2020 11:18:42 AM EDT 150 MG completed [facility] 24 HR venlafaxine 150 MG Extended Release Oral Capsule Venla faxine Venlafaxine 02/22/2020 11:18:42 AM EDT 150 MG completed [facility] 24 HR venlafaxine 150 MG Extended Release Oral Capsule Venla faxine Venlafaxine 02/22/2020 11:18:42 AM EDT 150 MG completed [facility] 24 HR venlafaxine 150 MG Extended Release Oral Capsule Venla faxine Venlafaxine 02/22/2020 11:18:42 AM EDT 150 MG completed [facility] 24 HR venlafaxine 150 MG Extended Release Oral Capsule Venla faxine Venlafaxine 02/22/2020 11:18:42 AM EDT 150 MG active [facility] 24 HR venlafaxine 150 MG Extended Release Oral Capsule Venla faxine Venlafaxine 02/22/2020 11:18:42 AM EDT 150 MG completed [facility] Desogestrel-Ethinyl Estradiol (Isibloom) 0.15-0.03 mg tablet 02/22/2020 11:18:24 AM EDT 1 TAB completed [facility] Desogestrel-Ethinyl Estradiol (Isibloom) 0.15-0.03 mg tablet 02/22/2020 11:18:24 AM EDT 1 TAB completed [facility] Desogestrel-Ethinyl Estradiol (Isibloom) 0.15-0.03 mg tablet 02/22/2020 11:18:24 AM EDT 1 TAB completed [facility] Desogestrel-Ethinyl Estradiol (Isibloom) 0.15-0.03 mg tablet 02/22/2020 11:18:24 AM EDT 1 TAB completed [facility] Desogestrel-Ethinyl Estradiol (Isibloom) 0.15-0.03 mg tablet 02/22/2020 11:18:24 AM EDT 1 TAB active [facility] Desogestrel-Ethinyl Estradiol (Isibloom) 0.15-0.03 mg tablet 02/22/2020 11:18:24 AM EDT 1 TAB completed [facility] Desogestrel-Ethinyl Estradiol (Isibloom) 0.15-0.03 mg tablet 02/22/2020 11:18:24 AM EDT 1 TAB completed [facility] Desogestrel-Ethinyl Estradiol (Isibloom) 0.15-0.03 mg tablet 02/22/2020 11:18:24 AM EDT 1 TAB completed [facility] Desogestrel-Ethinyl Estradiol (Isibloom) 0.15-0.03 mg tablet 02/22/2020 11:18:24 AM EDT 1 TAB completed [facility] Desogestrel-Ethinyl Estradiol (Isibloom) 0.15-0.03 mg tablet 02/22/2020 11:18:24 AM EDT 1 TAB active [facility] Desogestrel-Ethinyl Estradiol (Isibloom) 0.15-0.03 mg tablet 02/22/2020 11:18:24 AM EDT 1 TAB completed [facility] Desogestrel-Ethinyl Estradiol (Isibloom) 0.15-0.03 mg tablet 02/22/2020 11:18:24 AM EDT 1 TAB completed [facility] Desogestrel-Ethinyl Estradiol (Isibloom) 0.15-0.03 mg tablet 02/22/2020 11:18:24 AM EDT 1 TAB completed [facility] Desogestrel-Ethinyl Estradiol (Isibloom) 0.15-0.03 mg tablet 02/22/2020 11:18:24 AM EDT 1 TAB completed [facility] Desogestrel-Ethinyl Estradiol (Isibloom) 0.15-0.03 mg tablet 02/22/2020 11:18:24 AM EDT 1 TAB completed [facility] Desogestrel-Ethinyl Estradiol (Isibloom) 0.15-0.03 mg tablet 02/22/2020 11:18:24 AM EDT 1 TAB completed [facility] Desogestrel-Ethinyl Estradiol (Isibloom) 0.15-0.03 mg tablet 02/22/2020 11:18:24 AM EDT 1 TAB completed [facility] Desogestrel-Ethinyl Estradiol (Isibloom) 0.15-0.03 mg tablet 02/22/2020 11:18:24 AM EDT 1 TAB completed [facility] Desogestrel-Ethinyl Estradiol (Isibloom) 0.15-0.03 mg tablet 02/22/2020 11:18:24 AM EDT 1 TAB completed [facility] Desogestrel-Ethinyl Estradiol (Isibloom) 0.15-0.03 mg tablet 02/22/2020 11:18:24 AM EDT 1 TAB active [facility] Desogestrel-Ethinyl Estradiol (Isibloom) 0.15-0.03 mg tablet 02/22/2020 11:18:24 AM EDT 1 TAB completed [facility] Desogestrel-Ethinyl Estradiol (Isibloom) 0.15-0.03 mg tablet 02/22/2020 11:18:24 AM EDT 1 TAB completed [facility] Desogestrel-Ethinyl Estradiol (Isibloom) 0.15-0.03 mg tablet 02/22/2020 11:18:24 AM EDT 1 TAB completed [facility] Desogestrel-Ethinyl Estradiol (Isibloom) 0.15-0.03 mg tablet 02/22/2020 11:18:24 AM EDT 1 TAB completed [facility] Desogestrel-Ethinyl Estradiol (Isibloom) 0.15-0.03 mg tablet 02/22/2020 11:18:24 AM EDT 1 TAB completed [facility] Desogestrel-Ethinyl Estradiol (Isibloom) 0.15-0.03 mg tablet 02/22/2020 11:18:24 AM EDT 1 TAB completed [facility] Desogestrel-Ethinyl Estradiol (Isibloom) 0.15-0.03 mg tablet 02/22/2020 11:18:24 AM EDT 1 TAB completed [facility] Desogestrel-Ethinyl Estradiol (Isibloom) 0.15-0.03 mg tablet 02/22/2020 11:18:24 AM EDT 1 TAB completed [facility] Desogestrel-Ethinyl Estradiol (Isibloom) 0.15-0.03 mg tablet 02/22/2020 11:18:24 AM EDT 1 TAB completed [facility] Desogestrel-Ethinyl Estradiol (Isibloom) 0.15-0.03 mg tablet 02/22/2020 11:18:24 AM EDT 1 TAB completed [facility] Desogestrel-Ethinyl Estradiol (Isibloom) 0.15-0.03 mg tablet 02/22/2020 11:18:24 AM EDT 1 TAB completed [facility] Desogestrel-Ethinyl Estradiol (Isibloom) 0.15-0.03 mg tablet 02/22/2020 11:18:24 AM EDT 1 TAB completed [facility] Desogestrel-Ethinyl Estradiol (Isibloom) 0.15-0.03 mg tablet 02/22/2020 11:18:24 AM EDT 1 TAB completed [facility] Desogestrel-Ethinyl Estradiol (Isibloom) 0.15-0.03 mg tablet 02/22/2020 11:18:24 AM EDT 1 TAB completed [facility] Desogestrel-Ethinyl Estradiol (Isibloom) 0.15-0.03 mg tablet 02/22/2020 11:18:24 AM EDT 1 TAB completed [facility] Desogestrel-Ethinyl Estradiol (Isibloom) 0.15-0.03 mg tablet 02/22/2020 11:18:24 AM EDT 1 TAB completed [facility] buspirone hydrochloride 7.5 MG Oral Tablet Buspirone Buspiro ne 02/22/2020 11:18:05 AM EDT 7.5 MG completed [facility] buspirone hydrochloride 7.5 MG Oral Tablet Buspirone Buspiro ne 02/22/2020 11:18:05 AM EDT 7.5 MG completed [facility] buspirone hydrochloride 7.5 MG Oral Tablet Buspirone Buspiro ne 02/22/2020 11:18:05 AM EDT 7.5 MG active [facility] buspirone hydrochloride 7.5 MG Oral Tablet Buspirone Buspiro ne 02/22/2020 11:18:05 AM EDT 7.5 MG completed [facility] buspirone hydrochloride 7.5 MG Oral Tablet Buspirone Buspiro ne 02/22/2020 11:18:05 AM EDT 7.5 MG completed [facility] buspirone hydrochloride 7.5 MG Oral Tablet Buspirone Buspiro ne 02/22/2020 11:18:05 AM EDT 7.5 MG active [facility] buspirone hydrochloride 7.5 MG Oral Tablet Buspirone Buspiro ne 02/22/2020 11:18:05 AM EDT 7.5 MG active [facility] buspirone hydrochloride 7.5 MG Oral Tablet Buspirone Buspiro ne 02/22/2020 11:18:05 AM EDT 7.5 MG completed [facility] buspirone hydrochloride 7.5 MG Oral Tablet Buspirone Buspiro ne 02/22/2020 11:18:05 AM EDT 7.5 MG active [facility] buspirone hydrochloride 7.5 MG Oral Tablet Buspirone Buspiro ne 02/22/2020 11:18:05 AM EDT 7.5 MG completed [facility] buspirone hydrochloride 7.5 MG Oral Tablet Buspirone Buspiro ne 02/22/2020 11:18:05 AM EDT 7.5 MG completed [facility] buspirone hydrochloride 7.5 MG Oral Tablet Buspirone Buspiro ne 02/22/2020 11:18:05 AM EDT 7.5 MG completed [facility] buspirone hydrochloride 7.5 MG Oral Tablet Buspirone Buspiro ne 02/22/2020 11:18:05 AM EDT 7.5 MG active [facility] buspirone hydrochloride 7.5 MG Oral Tablet Buspirone Buspiro ne 02/22/2020 11:18:05 AM EDT 7.5 MG completed [facility] buspirone hydrochloride 7.5 MG Oral Tablet Buspirone Buspiro ne 02/22/2020 11:18:05 AM EDT 7.5 MG active [facility] buspirone hydrochloride 7.5 MG Oral Tablet Buspirone Buspiro ne 02/22/2020 11:18:05 AM EDT 7.5 MG completed [facility] buspirone hydrochloride 7.5 MG Oral Tablet Buspirone Buspiro ne 02/22/2020 11:18:05 AM EDT 7.5 MG active [facility] buspirone hydrochloride 7.5 MG Oral Tablet Buspirone Buspiro ne 02/22/2020 11:18:05 AM EDT 7.5 MG completed [facility] buspirone hydrochloride 7.5 MG Oral Tablet Buspirone Buspiro ne 02/22/2020 11:18:05 AM EDT 7.5 MG completed [facility] buspirone hydrochloride 7.5 MG Oral Tablet Buspirone Buspiro ne 02/22/2020 11:18:05 AM EDT 7.5 MG active [facility] buspirone hydrochloride 7.5 MG Oral Tablet Buspirone Buspiro ne 02/22/2020 11:18:05 AM EDT 7.5 MG completed [facility] buspirone hydrochloride 7.5 MG Oral Tablet Buspirone Buspiro ne 02/22/2020 11:18:05 AM EDT 7.5 MG active [facility] buspirone hydrochloride 7.5 MG Oral Tablet Buspirone Buspiro ne 02/22/2020 11:18:05 AM EDT 7.5 MG active [facility] buspirone hydrochloride 7.5 MG Oral Tablet Buspirone Buspiro ne 02/22/2020 11:18:05 AM EDT 7.5 MG completed [facility] buspirone hydrochloride 7.5 MG Oral Tablet Buspirone Buspiro ne 02/22/2020 11:18:05 AM EDT 7.5 MG completed [facility] buspirone hydrochloride 7.5 MG Oral Tablet Buspirone Buspiro ne 02/22/2020 11:18:05 AM EDT 7.5 MG active [facility] buspirone hydrochloride 7.5 MG Oral Tablet Buspirone Buspiro ne 02/22/2020 11:18:05 AM EDT 7.5 MG active [facility] buspirone hydrochloride 7.5 MG Oral Tablet Buspirone Buspiro ne 02/22/2020 11:18:05 AM EDT 7.5 MG active [facility] buspirone hydrochloride 7.5 MG Oral Tablet Buspirone Buspiro ne 02/22/2020 11:18:05 AM EDT 7.5 MG completed [facility] buspirone hydrochloride 7.5 MG Oral Tablet Buspirone Buspiro ne 02/22/2020 11:18:05 AM EDT 7.5 MG active [facility] buspirone hydrochloride 7.5 MG Oral Tablet Buspirone Buspiro ne 02/22/2020 11:18:05 AM EDT 7.5 MG completed [facility] buspirone hydrochloride 7.5 MG Oral Tablet Buspirone Buspiro ne 02/22/2020 11:18:05 AM EDT 7.5 MG completed [facility] buspirone hydrochloride 7.5 MG Oral Tablet Buspirone Buspiro ne 02/22/2020 11:18:05 AM EDT 7.5 MG completed [facility] buspirone hydrochloride 7.5 MG Oral Tablet Buspirone Buspiro ne 02/22/2020 11:18:05 AM EDT 7.5 MG active [facility] buspirone hydrochloride 7.5 MG Oral Tablet Buspirone Buspiro ne 02/22/2020 11:18:05 AM EDT 7.5 MG completed [facility] buspirone hydrochloride 7.5 MG Oral Tablet Buspirone Buspiro ne 02/22/2020 11:18:05 AM EDT 7.5 MG active [facility] Metoprolol Succinate 02/20/2020 12:34:45 PM EDT 50 MG completed [facility] Metoprolol Succinate 02/20/2020 12:34:45 PM EDT 50 MG completed [facility] Metoprolol Succinate 02/20/2020 12:34:45 PM EDT 50 MG completed [facility] Metoprolol Succinate 02/20/2020 12:34:45 PM EDT 50 MG completed [facility] Metoprolol Succinate 02/20/2020 12:34:45 PM EDT 50 MG active [facility] Metoprolol Succinate 02/20/2020 12:34:45 PM EDT 50 MG active [facility] Metoprolol Succinate 02/20/2020 12:34:45 PM EDT 50 MG active [facility] Metoprolol Succinate 02/20/2020 12:34:45 PM EDT 50 MG completed [facility] Metoprolol Succinate 02/20/2020 12:34:45 PM EDT 50 MG completed [facility] Metoprolol Succinate 02/20/2020 12:34:45 PM EDT 50 MG active [facility] Metoprolol Succinate 02/20/2020 12:34:45 PM EDT 50 MG completed [facility] Metoprolol Succinate 02/20/2020 12:34:45 PM EDT 50 MG completed [facility] Metoprolol Succinate 02/20/2020 12:34:45 PM EDT 50 MG completed [facility] Metoprolol Succinate 02/20/2020 12:34:45 PM EDT 50 MG completed [facility] Metoprolol Succinate 02/20/2020 12:34:45 PM EDT 50 MG active [facility] Metoprolol Succinate 02/20/2020 12:34:45 PM EDT 50 MG active [facility] Metoprolol Succinate 02/20/2020 12:34:45 PM EDT 50 MG completed [facility] Metoprolol Succinate 02/20/2020 12:34:45 PM EDT 50 MG completed [facility] Metoprolol Succinate 02/20/2020 12:34:45 PM EDT 50 MG active [facility] Metoprolol Succinate 02/20/2020 12:34:45 PM EDT 50 MG active [facility] Metoprolol Succinate 02/20/2020 12:34:45 PM EDT 50 MG completed [facility] Metoprolol Succinate 02/20/2020 12:34:45 PM EDT 50 MG active [facility] Metoprolol Succinate 02/20/2020 12:34:45 PM EDT 50 MG completed [facility] Metoprolol Succinate 02/20/2020 12:34:45 PM EDT 50 MG completed [facility] Metoprolol Succinate 02/20/2020 12:34:45 PM EDT 50 MG completed [facility] Metoprolol Succinate 02/20/2020 12:34:45 PM EDT 50 MG completed [facility] Metoprolol Succinate 02/20/2020 12:34:45 PM EDT 50 MG completed [facility] Metoprolol Succinate 02/20/2020 12:34:45 PM EDT 50 MG active [facility] Metoprolol Succinate 02/20/2020 12:34:45 PM EDT 50 MG completed [facility] Metoprolol Succinate 02/20/2020 12:34:45 PM EDT 50 MG completed [facility] Metoprolol Succinate 02/20/2020 12:34:45 PM EDT 50 MG completed [facility] Metoprolol Succinate 02/20/2020 12:34:45 PM EDT 50 MG active [facility] Metoprolol Succinate 02/20/2020 12:34:45 PM EDT 50 MG completed [facility] Metoprolol Succinate 02/20/2020 12:34:45 PM EDT 50 MG active [facility] Metoprolol Succinate 02/20/2020 12:34:45 PM EDT 50 MG active [facility] Metoprolol Succinate 02/20/2020 12:34:45 PM EDT 50 MG completed [facility] Metoprolol Succinate 02/20/2020 12:34:45 PM EDT 50 MG completed [facility] Famotidine 20 MG Oral Tablet Famotidine 02/20/2020 12:34:18 PM EDT 20 MG completed [facility] Famotidine 20 MG Oral Tablet Famotidine 02/20/2020 12:34:18 PM EDT 20 MG completed [facility] Famotidine 20 MG Oral Tablet Famotidine 02/20/2020 12:34:18 PM EDT 20 MG completed [facility] Famotidine 20 MG Oral Tablet Famotidine 02/20/2020 12:34:18 PM EDT 20 MG completed [facility] Famotidine 20 MG Oral Tablet Famotidine 02/20/2020 12:34:18 PM EDT 20 MG completed [facility] Famotidine 20 MG Oral Tablet Famotidine 02/20/2020 12:34:18 PM EDT 20 MG completed [facility] Famotidine 20 MG Oral Tablet Famotidine 02/20/2020 12:34:18 PM EDT 20 MG completed [facility] Famotidine 20 MG Oral Tablet Famotidine 02/20/2020 12:34:18 PM EDT 20 MG completed [facility] Famotidine 20 MG Oral Tablet Famotidine 02/20/2020 12:34:18 PM EDT 20 MG completed [facility] Famotidine 20 MG Oral Tablet Famotidine 02/20/2020 12:34:18 PM EDT 20 MG completed [facility] Famotidine 20 MG Oral Tablet Famotidine 02/20/2020 12:34:18 PM EDT 20 MG completed [facility] Famotidine 20 MG Oral Tablet Famotidine 02/20/2020 12:34:18 PM EDT 20 MG completed [facility] Famotidine 20 MG Oral Tablet Famotidine 02/20/2020 12:34:18 PM EDT 20 MG completed [facility] Famotidine 20 MG Oral Tablet Famotidine 02/20/2020 12:34:18 PM EDT 20 MG completed [facility] Famotidine 20 MG Oral Tablet Famotidine 02/20/2020 12:34:18 PM EDT 20 MG completed [facility] Famotidine 20 MG Oral Tablet Famotidine 02/20/2020 12:34:18 PM EDT 20 MG completed [facility] Famotidine 20 MG Oral Tablet Famotidine 02/20/2020 12:34:18 PM EDT 20 MG completed [facility] Famotidine 20 MG Oral Tablet Famotidine 02/20/2020 12:34:18 PM EDT 20 MG completed [facility] Famotidine 20 MG Oral Tablet Famotidine 02/20/2020 12:34:18 PM EDT 20 MG completed [facility] Famotidine 20 MG Oral Tablet Famotidine 02/20/2020 12:34:18 PM EDT 20 MG completed [facility] Famotidine 20 MG Oral Tablet Famotidine 02/20/2020 12:34:18 PM EDT 20 MG completed [facility] Famotidine 20 MG Oral Tablet Famotidine 02/20/2020 12:34:18 PM EDT 20 MG active [facility] Famotidine 20 MG Oral Tablet Famotidine 02/20/2020 12:34:18 PM EDT 20 MG completed [facility] Famotidine 20 MG Oral Tablet Famotidine 02/20/2020 12:34:18 PM EDT 20 MG completed [facility] Famotidine 20 MG Oral Tablet Famotidine 02/20/2020 12:34:18 PM EDT 20 MG completed [facility] Famotidine 20 MG Oral Tablet Famotidine 02/20/2020 12:34:18 PM EDT 20 MG completed [facility] Famotidine 20 MG Oral Tablet Famotidine 02/20/2020 12:34:18 PM EDT 20 MG completed [facility] Famotidine 20 MG Oral Tablet Famotidine 02/20/2020 12:34:18 PM EDT 20 MG completed [facility] Famotidine 20 MG Oral Tablet Famotidine 02/20/2020 12:34:18 PM EDT 20 MG completed [facility] Famotidine 20 MG Oral Tablet Famotidine 02/20/2020 12:34:18 PM EDT 20 MG completed [facility] Famotidine 20 MG Oral Tablet Famotidine 02/20/2020 12:34:18 PM EDT 20 MG completed [facility] Famotidine 20 MG Oral Tablet Famotidine 02/20/2020 12:34:18 PM EDT 20 MG completed [facility] Famotidine 20 MG Oral Tablet Famotidine 02/20/2020 12:34:18 PM EDT 20 MG completed [facility] Famotidine 20 MG Oral Tablet Famotidine 02/20/2020 12:34:18 PM EDT 20 MG completed [facility] Famotidine 20 MG Oral Tablet Famotidine 02/20/2020 12:34:18 PM EDT 20 MG completed [facility] Famotidine 20 MG Oral Tablet Famotidine 02/20/2020 12:34:18 PM EDT 20 MG completed [facility] Famotidine 20 MG Oral Tablet Famotidine 02/20/2020 12:34:18 PM EDT 20 MG completed [facility] Acetaminophen 325 MG Oral Tablet Acetaminophen (Tyleno l) 325 mg tablet Acetaminophen (Tylenol) 325 mg tablet 02/20/2020 12:24:30 PM EDT 325 M G completed [facility] Acetaminophen 325 MG Oral Tablet Acetaminophen (Tyleno l) 325 mg tablet Acetaminophen (Tylenol) 325 mg tablet 02/20/2020 12:24:30 PM EDT 325 M G completed [facility] Acetaminophen 325 MG Oral Tablet Acetaminophen (Tyleno l) 325 mg tablet Acetaminophen (Tylenol) 325 mg tablet 02/20/2020 12:24:30 PM EDT 325 M G completed [facility] Acetaminophen 325 MG Oral Tablet Acetaminophen (Tyleno l) 325 mg tablet Acetaminophen (Tylenol) 325 mg tablet 02/20/2020 12:24:30 PM EDT 325 M G completed [facility] Acetaminophen 325 MG Oral Tablet Acetaminophen (Tyleno l) 325 mg tablet Acetaminophen (Tylenol) 325 mg tablet 02/20/2020 12:24:30 PM EDT 325 M G completed [facility] Acetaminophen 325 MG Oral Tablet Acetaminophen (Tyleno l) 325 mg tablet Acetaminophen (Tylenol) 325 mg tablet 02/20/2020 12:24:30 PM EDT 325 M G completed [facility] Acetaminophen 325 MG Oral Tablet Acetaminophen (Tyleno l) 325 mg tablet Acetaminophen (Tylenol) 325 mg tablet 02/20/2020 12:24:30 PM EDT 325 M G completed [facility] Acetaminophen 325 MG Oral Tablet Acetaminophen (Tyleno l) 325 mg tablet Acetaminophen (Tylenol) 325 mg tablet 02/20/2020 12:24:30 PM EDT 325 M G completed [facility] Acetaminophen 325 MG Oral Tablet Acetaminophen (Tyleno l) 325 mg tablet Acetaminophen (Tylenol) 325 mg tablet 02/20/2020 12:24:30 PM EDT 325 M G completed [facility] Acetaminophen 325 MG Oral Tablet Acetaminophen (Tyleno l) 325 mg tablet Acetaminophen (Tylenol) 325 mg tablet 02/20/2020 12:24:30 PM EDT 325 M G active [facility] Acetaminophen 325 MG Oral Tablet Acetaminophen (Tyleno l) 325 mg tablet Acetaminophen (Tylenol) 325 mg tablet 02/20/2020 12:24:30 PM EDT 325 M G active [facility] Acetaminophen 325 MG Oral Tablet Acetaminophen (Tyleno l) 325 mg tablet Acetaminophen (Tylenol) 325 mg tablet 02/20/2020 12:24:30 PM EDT 325 M G completed [facility] Acetaminophen 325 MG Oral Tablet Acetaminophen (Tyleno l) 325 mg tablet Acetaminophen (Tylenol) 325 mg tablet 02/20/2020 12:24:30 PM EDT 325 M G completed [facility] Acetaminophen 325 MG Oral Tablet Acetaminophen (Tyleno l) 325 mg tablet Acetaminophen (Tylenol) 325 mg tablet 02/20/2020 12:24:30 PM EDT 325 M G active [facility] Acetaminophen 325 MG Oral Tablet Acetaminophen (Tyleno l) 325 mg tablet Acetaminophen (Tylenol) 325 mg tablet 02/20/2020 12:24:30 PM EDT 325 M G completed [facility] Acetaminophen 325 MG Oral Tablet Acetaminophen (Tyleno l) 325 mg tablet Acetaminophen (Tylenol) 325 mg tablet 02/20/2020 12:24:30 PM EDT 325 M G completed [facility] Acetaminophen 325 MG Oral Tablet Acetaminophen (Tyleno l) 325 mg tablet Acetaminophen (Tylenol) 325 mg tablet 02/20/2020 12:24:30 PM EDT 325 M G completed [facility] Acetaminophen 325 MG Oral Tablet Acetaminophen (Tyleno l) 325 mg tablet Acetaminophen (Tylenol) 325 mg tablet 02/20/2020 12:24:30 PM EDT 325 M G completed [facility] Acetaminophen 325 MG Oral Tablet Acetaminophen (Tyleno l) 325 mg tablet Acetaminophen (Tylenol) 325 mg tablet 02/20/2020 12:24:30 PM EDT 325 M G completed [facility] Acetaminophen 325 MG Oral Tablet Acetaminophen (Tyleno l) 325 mg tablet Acetaminophen (Tylenol) 325 mg tablet 02/20/2020 12:24:30 PM EDT 325 M G completed [facility] Acetaminophen 325 MG Oral Tablet Acetaminophen (Tyleno l) 325 mg tablet Acetaminophen (Tylenol) 325 mg tablet 02/20/2020 12:24:30 PM EDT 325 M G completed [facility] Acetaminophen 325 MG Oral Tablet Acetaminophen (Tyleno l) 325 mg tablet Acetaminophen (Tylenol) 325 mg tablet 02/20/2020 12:24:30 PM EDT 325 M G completed [facility] Acetaminophen 325 MG Oral Tablet Acetaminophen 02/20/2020 12:24:30 PM EDT 325 MG active [facility] Acetaminophen 325 MG Oral Tablet Acetaminophen (Tyleno l) 325 mg tablet Acetaminophen (Tylenol) 325 mg tablet 02/20/2020 12:24:30 PM EDT 325 M G completed [facility] Acetaminophen 325 MG Oral Tablet Acetaminophen (Tyleno l) 325 mg tablet Acetaminophen (Tylenol) 325 mg tablet 02/20/2020 12:24:30 PM EDT 325 M G active [facility] Acetaminophen 325 MG Oral Tablet Acetaminophen (Tyleno l) 325 mg tablet Acetaminophen (Tylenol) 325 mg tablet 02/20/2020 12:24:30 PM EDT 325 M G completed [facility] Acetaminophen 325 MG Oral Tablet Acetaminophen (Tyleno l) 325 mg tablet Acetaminophen (Tylenol) 325 mg tablet 02/20/2020 12:24:30 PM EDT 325 M G completed [facility] Acetaminophen 325 MG Oral Tablet Acetaminophen (Tyleno l) 325 mg tablet Acetaminophen (Tylenol) 325 mg tablet 02/20/2020 12:24:30 PM EDT 325 M G completed [facility] Acetaminophen 325 MG Oral Tablet Acetaminophen (Tyleno l) 325 mg tablet Acetaminophen (Tylenol) 325 mg tablet 02/20/2020 12:24:30 PM EDT 325 M G completed [facility] Acetaminophen 325 MG Oral Tablet Acetaminophen (Tyleno l) 325 mg tablet Acetaminophen (Tylenol) 325 mg tablet 02/20/2020 12:24:30 PM EDT 325 M G active [facility] Acetaminophen 325 MG Oral Tablet Acetaminophen (Tyleno l) 325 mg tablet Acetaminophen (Tylenol) 325 mg tablet 02/20/2020 12:24:30 PM EDT 325 M G active [facility] Acetaminophen 325 MG Oral Tablet Acetaminophen (Tyleno l) 325 mg tablet Acetaminophen (Tylenol) 325 mg tablet 02/20/2020 12:24:30 PM EDT 325 M G completed [facility] Acetaminophen 325 MG Oral Tablet Acetaminophen (Tyleno l) 325 mg tablet Acetaminophen (Tylenol) 325 mg tablet 02/20/2020 12:24:30 PM EDT 325 M G completed [facility] Acetaminophen 325 MG Oral Tablet Acetaminophen (Tyleno l) 325 mg tablet Acetaminophen (Tylenol) 325 mg tablet 02/20/2020 12:24:30 PM EDT 325 M G completed [facility] Acetaminophen 325 MG Oral Tablet Acetaminophen (Tyleno l) 325 mg tablet Acetaminophen (Tylenol) 325 mg tablet 02/20/2020 12:24:30 PM EDT 325 M G completed [facility] Acetaminophen 325 MG Oral Tablet Acetaminophen (Tyleno l) 325 mg tablet Acetaminophen (Tylenol) 325 mg tablet 02/20/2020 12:24:30 PM EDT 325 M G completed [facility] Acetaminophen 325 MG Oral Tablet Acetaminophen (Tyleno l) 325 mg tablet Acetaminophen (Tylenol) 325 mg tablet 02/20/2020 12:24:30 PM EDT 325 M G completed [facility] Triamcinolone Acetonide 1 MG/ML Topical Cream Triamcinolone Acetonide 02/20/2020 11:59:21 AM EDT 1 APPLIC completed [facility] Triamcinolone Acetonide 1 MG/ML Topical Cream Triamcinolone Acetonide 02/20/2020 11:59:21 AM EDT 1 APPLIC completed [facility] Triamcinolone Acetonide 1 MG/ML Topical Cream Triamcinolone Acetonide 02/20/2020 11:59:21 AM EDT 1 APPLIC completed [facility] Triamcinolone Acetonide 1 MG/ML Topical Cream Triamcinolone Acetonide 02/20/2020 11:59:21 AM EDT 1 APPLIC completed [facility] Triamcinolone Acetonide 1 MG/ML Topical Cream Triamcinolone Acetonide 02/20/2020 11:59:21 AM EDT 1 APPLIC completed [facility] Triamcinolone Acetonide 1 MG/ML Topical Cream Triamcinolone Acetonide 02/20/2020 11:59:21 AM EDT 1 APPLIC completed [facility] Triamcinolone Acetonide 1 MG/ML Topical Cream Triamcinolone Acetonide 02/20/2020 11:59:21 AM EDT 1 APPLIC completed [facility] Triamcinolone Acetonide 1 MG/ML Topical Cream Triamcinolone Acetonide 02/20/2020 11:59:21 AM EDT 1 APPLIC completed [facility] Triamcinolone Acetonide 1 MG/ML Topical Cream Triamcinolone Acetonide 02/20/2020 11:59:21 AM EDT 1 APPLIC completed [facility] Triamcinolone Acetonide 1 MG/ML Topical Cream Triamcinolone Acetonide 02/20/2020 11:59:21 AM EDT 1 APPLIC active [facility] Triamcinolone Acetonide 1 MG/ML Topical Cream Triamcinolone Acetonide 02/20/2020 11:59:21 AM EDT 1 APPLIC completed [facility] Triamcinolone Acetonide 1 MG/ML Topical Cream Triamcinolone Acetonide 02/20/2020 11:59:21 AM EDT 1 APPLIC active [facility] Triamcinolone Acetonide 1 MG/ML Topical Cream Triamcinolone Acetonide 02/20/2020 11:59:21 AM EDT 1 APPLIC completed [facility] Triamcinolone Acetonide 1 MG/ML Topical Cream Triamcinolone Acetonide 02/20/2020 11:59:21 AM EDT 1 APPLIC completed [facility] Triamcinolone Acetonide 1 MG/ML Topical Cream Triamcinolone Acetonide 02/20/2020 11:59:21 AM EDT 1 APPLIC completed [facility] Triamcinolone Acetonide 1 MG/ML Topical Cream Triamcinolone Acetonide 02/20/2020 11:59:21 AM EDT 1 APPLIC completed [facility] Triamcinolone Acetonide 1 MG/ML Topical Cream Triamcinolone Acetonide 02/20/2020 11:59:21 AM EDT 1 APPLIC completed [facility] Triamcinolone Acetonide 1 MG/ML Topical Cream Triamcinolone Acetonide 02/20/2020 11:59:21 AM EDT 1 APPLIC completed [facility] Triamcinolone Acetonide 1 MG/ML Topical Cream Triamcinolone Acetonide 02/20/2020 11:59:21 AM EDT 1 APPLIC completed [facility] Triamcinolone Acetonide 1 MG/ML Topical Cream Triamcinolone Acetonide 02/20/2020 11:59:21 AM EDT 1 APPLIC completed [facility] Triamcinolone Acetonide 1 MG/ML Topical Cream Triamcinolone Acetonide 02/20/2020 11:59:21 AM EDT 1 APPLIC completed [facility] Triamcinolone Acetonide 1 MG/ML Topical Cream Triamcinolone Acetonide 02/20/2020 11:59:21 AM EDT 1 APPLIC completed [facility] Triamcinolone Acetonide 1 MG/ML Topical Cream Triamcinolone Acetonide 02/20/2020 11:59:21 AM EDT 1 APPLIC completed [facility] Triamcinolone Acetonide 1 MG/ML Topical Cream Triamcinolone Acetonide 02/20/2020 11:59:21 AM EDT 1 APPLIC completed [facility] Triamcinolone Acetonide 1 MG/ML Topical Cream Triamcinolone Acetonide 02/20/2020 11:59:21 AM EDT 1 APPLIC completed [facility] Triamcinolone Acetonide 1 MG/ML Topical Cream Triamcinolone Acetonide 02/20/2020 11:59:21 AM EDT 1 APPLIC completed [facility] Triamcinolone Acetonide 1 MG/ML Topical Cream Triamcinolone Acetonide 02/20/2020 11:59:21 AM EDT 1 APPLIC completed [facility] Triamcinolone Acetonide 1 MG/ML Topical Cream Triamcinolone Acetonide 02/20/2020 11:59:21 AM EDT 1 APPLIC completed [facility] Triamcinolone Acetonide 1 MG/ML Topical Cream Triamcinolone Acetonide 02/20/2020 11:59:21 AM EDT 1 APPLIC active [facility] Triamcinolone Acetonide 1 MG/ML Topical Cream Triamcinolone Acetonide 02/20/2020 11:59:21 AM EDT 1 APPLIC completed [facility] Triamcinolone Acetonide 1 MG/ML Topical Cream Triamcinolone Acetonide 02/20/2020 11:59:21 AM EDT 1 APPLIC completed [facility] Triamcinolone Acetonide 1 MG/ML Topical Cream Triamcinolone Acetonide 02/20/2020 11:59:21 AM EDT 1 APPLIC completed [facility] Triamcinolone Acetonide 1 MG/ML Topical Cream Triamcinolone Acetonide 02/20/2020 11:59:21 AM EDT 1 APPLIC active [facility] Triamcinolone Acetonide 1 MG/ML Topical Cream Triamcinolone Acetonide 02/20/2020 11:59:21 AM EDT 1 APPLIC completed [facility] Triamcinolone Acetonide 1 MG/ML Topical Cream Triamcinolone Acetonide 02/20/2020 11:59:21 AM EDT 1 APPLIC completed [facility] Triamcinolone Acetonide 1 MG/ML Topical Cream Triamcinolone Acetonide 02/20/2020 11:59:21 AM EDT 1 APPLIC completed [facility] Triamcinolone Acetonide 1 MG/ML Topical Cream Triamcinolone Acetonide 02/20/2020 11:59:21 AM EDT 1 APPLIC completed [facility] Metoprolol Succinate 02/20/2020 11:58:16 AM EDT 50 MG completed [facility] Metoprolol Succinate 02/20/2020 11:58:16 AM EDT 50 MG completed [facility] Metoprolol Succinate 02/20/2020 11:58:16 AM EDT 50 MG completed [facility] Metoprolol Succinate 02/20/2020 11:58:16 AM EDT 50 MG completed [facility] Metoprolol Succinate 02/20/2020 11:58:16 AM EDT 50 MG completed [facility] Metoprolol Succinate 02/20/2020 11:58:16 AM EDT 50 MG completed [facility] Metoprolol Succinate 02/20/2020 11:58:16 AM EDT 50 MG completed [facility] Metoprolol Succinate 02/20/2020 11:58:16 AM EDT 50 MG completed [facility] Metoprolol Succinate 02/20/2020 11:58:16 AM EDT 50 MG completed [facility] Metoprolol Succinate 02/20/2020 11:58:16 AM EDT 50 MG completed [facility] Metoprolol Succinate 02/20/2020 11:58:16 AM EDT 50 MG completed [facility] Metoprolol Succinate 02/20/2020 11:58:16 AM EDT 50 MG completed [facility] Metoprolol Succinate 02/20/2020 11:58:16 AM EDT 50 MG completed [facility] Metoprolol Succinate 02/20/2020 11:58:16 AM EDT 50 MG completed [facility] Metoprolol Succinate 02/20/2020 11:58:16 AM EDT 50 MG completed [facility] Metoprolol Succinate 02/20/2020 11:58:16 AM EDT 50 MG completed [facility] Metoprolol Succinate 02/20/2020 11:58:16 AM EDT 50 MG completed [facility] Metoprolol Succinate 02/20/2020 11:58:16 AM EDT 50 MG completed [facility] Metoprolol Succinate 02/20/2020 11:58:16 AM EDT 50 MG completed [facility] Metoprolol Succinate 02/20/2020 11:58:16 AM EDT 50 MG completed [facility] Metoprolol Succinate 02/20/2020 11:58:16 AM EDT 50 MG completed [facility] Metoprolol Succinate 02/20/2020 11:58:16 AM EDT 50 MG completed [facility] Metoprolol Succinate 02/20/2020 11:58:16 AM EDT 50 MG completed [facility] Metoprolol Succinate 02/20/2020 11:58:16 AM EDT 50 MG completed [facility] Metoprolol Succinate 02/20/2020 11:58:16 AM EDT 50 MG completed [facility] Metoprolol Succinate 02/20/2020 11:58:16 AM EDT 50 MG completed [facility] Metoprolol Succinate 02/20/2020 11:58:16 AM EDT 50 MG completed [facility] Metoprolol Succinate 02/20/2020 11:58:16 AM EDT 50 MG completed [facility] Metoprolol Succinate 02/20/2020 11:58:16 AM EDT 50 MG completed [facility] Metoprolol Succinate 02/20/2020 11:58:16 AM EDT 50 MG completed [facility] Metoprolol Succinate 02/20/2020 11:58:16 AM EDT 50 MG completed [facility] Metoprolol Succinate 02/20/2020 11:58:16 AM EDT 50 MG completed [facility] Metoprolol Succinate 02/20/2020 11:58:16 AM EDT 50 MG completed [facility] Metoprolol Succinate 02/20/2020 11:58:16 AM EDT 50 MG completed [facility] Metoprolol Succinate 02/20/2020 11:58:16 AM EDT 50 MG completed [facility] Metoprolol Succinate 02/20/2020 11:58:16 AM EDT 50 MG completed [facility] Metoprolol Succinate 02/20/2020 11:58:16 AM EDT 50 MG completed [facility] Famotidine 20 MG Oral Tablet Famotidine 02/20/2020 11:57:37 AM EDT 20 MG completed [facility] Famotidine 20 MG Oral Tablet Famotidine 02/20/2020 11:57:37 AM EDT 20 MG completed [facility] Famotidine 20 MG Oral Tablet Famotidine 02/20/2020 11:57:37 AM EDT 20 MG completed [facility] Famotidine 20 MG Oral Tablet Famotidine 02/20/2020 11:57:37 AM EDT 20 MG completed [facility] Famotidine 20 MG Oral Tablet Famotidine 02/20/2020 11:57:37 AM EDT 20 MG completed [facility] Famotidine 20 MG Oral Tablet Famotidine 02/20/2020 11:57:37 AM EDT 20 MG completed [facility] Famotidine 20 MG Oral Tablet Famotidine 02/20/2020 11:57:37 AM EDT 20 MG completed [facility] Famotidine 20 MG Oral Tablet Famotidine 02/20/2020 11:57:37 AM EDT 20 MG completed [facility] Famotidine 20 MG Oral Tablet Famotidine 02/20/2020 11:57:37 AM EDT 20 MG completed [facility] Famotidine 20 MG Oral Tablet Famotidine 02/20/2020 11:57:37 AM EDT 20 MG completed [facility] Famotidine 20 MG Oral Tablet Famotidine 02/20/2020 11:57:37 AM EDT 20 MG completed [facility] Famotidine 20 MG Oral Tablet Famotidine 02/20/2020 11:57:37 AM EDT 20 MG completed [facility] Famotidine 20 MG Oral Tablet Famotidine 02/20/2020 11:57:37 AM EDT 20 MG completed [facility] Famotidine 20 MG Oral Tablet Famotidine 02/20/2020 11:57:37 AM EDT 20 MG completed [facility] Famotidine 20 MG Oral Tablet Famotidine 02/20/2020 11:57:37 AM EDT 20 MG completed [facility] Famotidine 20 MG Oral Tablet Famotidine 02/20/2020 11:57:37 AM EDT 20 MG completed [facility] Famotidine 20 MG Oral Tablet Famotidine 02/20/2020 11:57:37 AM EDT 20 MG completed [facility] Famotidine 20 MG Oral Tablet Famotidine 02/20/2020 11:57:37 AM EDT 20 MG completed [facility] Famotidine 20 MG Oral Tablet Famotidine 02/20/2020 11:57:37 AM EDT 20 MG completed [facility] Famotidine 20 MG Oral Tablet Famotidine 02/20/2020 11:57:37 AM EDT 20 MG completed [facility] Famotidine 20 MG Oral Tablet Famotidine 02/20/2020 11:57:37 AM EDT 20 MG completed [facility] Famotidine 20 MG Oral Tablet Famotidine 02/20/2020 11:57:37 AM EDT 20 MG completed [facility] Famotidine 20 MG Oral Tablet Famotidine 02/20/2020 11:57:37 AM EDT 20 MG completed [facility] Famotidine 20 MG Oral Tablet Famotidine 02/20/2020 11:57:37 AM EDT 20 MG completed [facility] Famotidine 20 MG Oral Tablet Famotidine 02/20/2020 11:57:37 AM EDT 20 MG completed [facility] Famotidine 20 MG Oral Tablet Famotidine 02/20/2020 11:57:37 AM EDT 20 MG completed [facility] Famotidine 20 MG Oral Tablet Famotidine 02/20/2020 11:57:37 AM EDT 20 MG completed [facility] Famotidine 20 MG Oral Tablet Famotidine 02/20/2020 11:57:37 AM EDT 20 MG completed [facility] Famotidine 20 MG Oral Tablet Famotidine 02/20/2020 11:57:37 AM EDT 20 MG completed [facility] Famotidine 20 MG Oral Tablet Famotidine 02/20/2020 11:57:37 AM EDT 20 MG completed [facility] Famotidine 20 MG Oral Tablet Famotidine 02/20/2020 11:57:37 AM EDT 20 MG completed [facility] Famotidine 20 MG Oral Tablet Famotidine 02/20/2020 11:57:37 AM EDT 20 MG completed [facility] Famotidine 20 MG Oral Tablet Famotidine 02/20/2020 11:57:37 AM EDT 20 MG completed [facility] Famotidine 20 MG Oral Tablet Famotidine 02/20/2020 11:57:37 AM EDT 20 MG completed [facility] Famotidine 20 MG Oral Tablet Famotidine 02/20/2020 11:57:37 AM EDT 20 MG completed [facility] Famotidine 20 MG Oral Tablet Famotidine 02/20/2020 11:57:37 AM EDT 20 MG completed [facility] Famotidine 20 MG Oral Tablet Famotidine 02/20/2020 11:57:37 AM EDT 20 MG completed [facility] buspirone hydrochloride 7.5 MG Oral Tablet Buspirone Buspiro ne 02/20/2020 11:56:43 AM EDT 7.5 MG completed [facility] 24 HR venlafaxine 150 MG Extended Release Oral Tablet Venlaf axine Venlafaxine 02/20/2020 11:56:08 AM EDT 150 MG completed [facility] Desogestrel-Ethinyl Estradiol 02/20/2020 11:55:32 AM EDT 1 TAB completed [facility] Insurance Providers Payer name Policy type / Coverage type Policy ID Covered democrat ID Covered democrat's relationship to devries Policy Devries Plan Information BRANDON [id number] [facility] [id number] Gifty [id number] BRANDON [id number] SP [id number] [employer] [place] P[place] 302/307 [id number] SP [id number] BRANDON I [id number] Self [id number] [place] [place] P[place] 302/307 [id number] SP [id number] EXCELLUS BCBS B [id number] S [id number] [place] [id number] S [id number] DPAO SP Managed Care Brandon P UNAVAILABLE S UNAVAILABLE Medicaid S UNAVAILABLE S UNAVAILA BLE ESURANCE NO FAULT [id number] SP [id number] EXCELLUS BC-BS PPO [id number] SP [id number] BRANDON [id number] SP [id number] EXCELLUS BC-BS PPO 306 [id number] SP [id number] ESURANCE O [id number] S [id number] [place] PPO 302/307 [id number] SP [id number] ESURANCE NO FAULT [id number] SP [id number] [place] PPO 302/307 [id number] SP [id number] [facility] [id number] SP [id number] [facility] [id number] SP [id number] SELF PAY ONLY [id number] SP [id number] EXCELLUS BCBS B [id number] S [id number] [place] PPO 302/307 [id number] SP [id number] UNHC AMERICHOICE XIX HMO [id number] [facility]) P [id number] O [id number] [employer] [id number] SP [id number] MEDICAID [facility] [id number] SP [id number] [facility] [id number] SP [id number] Problems, Conditions, and Diagnoses Code Display Name Description Problem Type Effective Dates Data Source(s) [id number] Essential hypertension Essential hypertension Problem 06/20/2020 12:00:00 AM EDT [facility] ([facility] ) K21.9 Gastro-esophageal reflux disease without esophagitis Gastro-esophageal reflux disease without Diagnosis 10/16/2020 02:57:09 PM [facility] Surgeries/Procedures Procedure Description Date Indications Data Source(s) Influenza-Like Illness (PCR) 09/23/2020 12:00:00 AM [facility] Urine culture (procedure) 09/23/2020 12:00:00 [facility] 09/23/2020 12:00:00 [facility] 09/23/2020 12:00:00 AM [facility] Influenza-Like Illness (PCR) 09/23/2020 12:00:00 AM [facility] Escherichia coli 0157 Culture 09/23/2020 12:00:[address] [facility] Campylobacter Culture 09/23/2020 12:00:00 AM [facility] Salmonella/Shigella Screen 09/23/2020 12:00:00 AM [facility] Escherichia coli Shiga Toxins EIA 09/23/2020 12:00:00 AM [facility] 09/23/2020 12:00:00 AM [facility] Escherichia coli 0157 Culture 09/23/2020 12:00:[address] [facility] Campylobacter Culture 09/23/2020 12:00:00 AM [facility] Salmonella/Shigella Screen 09/23/2020 12:00:00 AM [facility] Escherichia coli Shiga Toxins EIA 09/23/2020 12:00:00 AM [facility] 09/23/2020 12:00:00 AM [facility] Influenza-Like Illness (PCR) 09/23/2020 12:00:00 AM [facility] Urine culture (procedure) 09/23/2020 12:00:00 AM [facility] Escherichia coli 0157 Culture 09/23/2020 12:00:[address] [facility] Campylobacter Culture 09/23/2020 12:00:00 AM [facility] Salmonella/Shigella Screen 09/23/2020 12:00:00 AM [facility] Escherichia coli Shiga Toxins EIA 09/23/2020 12:00:00 AM [facility] 09/23/2020 12:00:00 AM [facility] Influenza-Like Illness (PCR) 09/23/2020 12:00:00 AM ES T [facility] Urine culture (procedure) 09/23/2020 12:00:00 AM [facility] Toxin detection (procedure) 09/23/2020 12:00:00 AM [facility] Campylobacter species culture (procedure) 09/23/2020 1 2:00:00 AM [facility] Stool culture for bacteria (procedure) 09/23/2020 12:0 0:00 AM [facility] Escherichia coli shiga-like detection (procedure) 09/23/2020 12:00:00 AM [facility] Urine culture (procedure) 09/09/2020 12:00:00 AM [facility] Urine Culture 09/09/2020 12:00:00 AM [facility] Urine culture (procedure) 09/09/2020 12:00:00 AM [facility] Urine culture (procedure) 09/09/2020 12:00:00 AM [facility] Urine culture (procedure) 09/09/2020 12:00:00 AM [facility] Urine culture (procedure) 09/09/2020 12:00:00 AM [facility] Urine culture (procedure) 08/30/2020 12:00:00 AM [facility] Urine culture (procedure) 08/30/2020 12:00:00 AM [facility] Urine culture (procedure) 08/30/2020 12:00:00 AM [facility] Urine culture (procedure) 08/30/2020 12:00:00 AM [facility] Urine culture (procedure) 08/30/2020 12:00:00 AM [facility] Urine culture (procedure) 08/30/2020 12:00:00 AM [facility] Urine culture (procedure) 08/30/2020 12:00:00 AM [facility] Urine culture (procedure) 08/30/2020 12:00:00 AM [facility] Urine culture (procedure) 08/30/2020 12:00:00 AM [facility] Urine Culture 08/30/2020 12:00:00 AM [facility] 08/22/2020 12:00:00 AM [facility] Influenza-Like Illness (PCR) 08/22/2020 12:00:00 AM [facility] 08/22/2020 12:00:00 AM [facility] Influenza-Like Illness (PCR) 08/22/2020 12:00:00 AM [facility] 08/22/2020 12:00:00 AM [facility] Influenza-Like Illness (PCR) 08/22/2020 12:00:00 AM [facility] 08/22/2020 12:00:00 AM [facility] Influenza-Like Illness (PCR) 08/22/2020 12:00:00 AM [facility] 08/22/2020 12:00:00 AM [facility] Influenza-Like Illness (PCR) 08/22/2020 12:00:00 AM [facility] 08/22/2020 12:00:00 AM [facility] Influenza-Like Illness (PCR) 08/22/2020 12:00:00 AM [facility] 08/22/2020 12:00:00 AM [facility] Influenza-Like Illness (PCR) 08/22/2020 12:00:00 AM [facility] 08/22/2020 12:00:00 AM [facility] Influenza-Like Illness (PCR) 08/22/2020 12:00:00 AM [facility] 08/22/2020 12:00:00 AM [facility] Influenza-Like Illness (PCR) 08/22/2020 12:00:00 AM [facility] 08/22/2020 12:00:00 AM [facility] Influenza-Like Illness (PCR) 08/22/2020 12:00:00 AM [facility] 08/22/2020 12:00:00 AM [facility] Influenza-Like Illness (PCR) 08/22/2020 12:00:00 AM [facility] 08/22/2020 12:00:00 AM [facility] Influenza-Like Illness (PCR) 08/22/2020 12:00:00 AM T [facility] Transvaginal obstetric ultrasonography (procedure) 08/21/2020 10:17:00 AM [facility] Ultrasonography in first trimester (procedure) 10:17:00 AM [facility] Transvaginal obstetric ultrasonography (procedure) 08/21/2020 10:17:00 AM [facility] Ultrasonography in first trimester (procedure) 10:17:00 AM [facility] Transvaginal obstetric ultrasonography (procedure) 08/21/2020 10:17:00 AM [facility] Ultrasonography in first trimester (procedure) 10:17:00 AM [facility] Transvaginal obstetric ultrasonography (procedure) 08/21/2020 10:17:00 AM [facility] Ultrasonography in first trimester (procedure) 10:17:00 AM [facility] Transvaginal obstetric ultrasonography (procedure) 08/21/2020 10:17:00 AM [facility] Ultrasonography in first trimester (procedure) 10:17:00 AM [facility] Transvaginal obstetric ultrasonography (procedure) 08/21/2020 10:17:00 AM [facility] Ultrasonography in first trimester (procedure) 10:17:00 AM [facility] Transvaginal obstetric ultrasonography (procedure) 08/21/2020 10:17:00 AM [facility] Ultrasonography in first trimester (procedure) 10:17:00 AM [facility] Transvaginal obstetric ultrasonography (procedure) 08/21/2020 10:17:00 AM [facility] Ultrasonography in first trimester (procedure) 10:17:00 AM [facility] Transvaginal obstetric ultrasonography (procedure) 08/21/2020 10:17:00 AM [facility] Ultrasonography in first trimester (procedure) 10:17:00 AM [facility] Transvaginal obstetric ultrasonography (procedure) 08/21/2020 10:17:00 AM [facility] Ultrasonography in first trimester (procedure) 10:17:00 AM [facility] Transvaginal obstetric ultrasonography (procedure) 08/21/2020 10:17:00 AM [facility] Ultrasonography in first trimester (procedure) 10:17:00 AM [facility] Transvaginal obstetric ultrasonography (procedure) 08/21/2020 10:17:00 AM [facility] Ultrasonography in first trimester (procedure) 10:17:00 AM [facility] Transvaginal obstetric ultrasonography (procedure) 08/21/2020 10:17:00 AM [facility] Ultrasonography in first trimester (procedure) 10:17:00 AM [facility] Ultrasonography in first trimester (procedure) 09:16:00 AM [facility] Ultrasonography in first trimester (procedure) 09:16:00 AM [facility] Ultrasonography in first trimester (procedure) 09:16:00 AM [facility] Ultrasonography in first trimester (procedure) 09:16:00 AM [facility] Ultrasonography in first trimester (procedure) 09:16:00 [facility] Ultrasonography in first trimester (procedure) 09:16:00 [facility] Ultrasonography in first trimester (procedure) 09:16:00 [facility] Ultrasonography in first trimester (procedure) 09:16:00 [facility] Ultrasonography in first trimester (procedure) 09:16:00 [facility] Ultrasonography in first trimester (procedure) 09:16:00 [facility] Ultrasonography in first trimester (procedure) 09:16:00 [facility] Ultrasonography in first trimester (procedure) 09:16:00 [facility] Ultrasonography in first trimester (procedure) 09:16:00 AM [facility] Ultrasonography in first trimester (procedure) 12/23/2 020 09:16:00 AM [facility] Ultrasonography in first trimester (procedure) 09:16:00 AM [facility] Transvaginal obstetric ultrasonography (procedure) 08/09/2020 08:40:00 PM [facility] Transvaginal obstetric ultrasonography (procedure) 08/09/2020 08:40:00 PM [facility] Transvaginal obstetric ultrasonography (procedure) 08/09/2020 08:40:00 [facility] Transvaginal obstetric ultrasonography (procedure) 08/09/2020 08:40:00 [facility] Transvaginal obstetric ultrasonography (procedure) 08/09/2020 08:40:00 [facility] Transvaginal obstetric ultrasonography (procedure) 08/09/2020 08:40:00 [facility] Transvaginal obstetric ultrasonography (procedure) 08/09/2020 08:40:00 [facility] Transvaginal obstetric ultrasonography (procedure) 08/09/2020 08:40:00 [facility] Transvaginal obstetric ultrasonography (procedure) 08/09/2020 08:40:00 [facility] Transvaginal obstetric ultrasonography (procedure) 08/09/2020 08:40:00 [facility] Transvaginal obstetric ultrasonography (procedure) 08/09/2020 08:40:00 [facility] Transvaginal obstetric ultrasonography (procedure) 08/09/2020 08:40:00 [facility] Transvaginal obstetric ultrasonography (procedure) 08/09/2020 08:40:00 [facility] Transvaginal obstetric ultrasonography (procedure) 08/09/2020 08:40:00 [facility] Transvaginal obstetric ultrasonography (procedure) 08/09/2020 08:40:00 [facility] Transvaginal obstetric ultrasonography (procedure) 08/09/2020 08:40:00 PM [facility] Ultrasonography in first trimester (procedure) 08:39:00 [facility] Ultrasonography in first trimester (procedure) 08:39:00 [facility] Ultrasonography in first trimester (procedure) 08:39:00 [facility] Ultrasonography in first trimester (procedure) 08:39:00 [facility] Ultrasonography in first trimester (procedure) 08:39:00 [facility] Ultrasonography in first trimester (procedure) 08:39:00 [facility] Ultrasonography in first trimester (procedure) 08:39:00 [facility] Ultrasonography in first trimester (procedure) 08:39:00 [facility] Ultrasonography in first trimester (procedure) 08:39:00 [facility] Ultrasonography in first trimester (procedure) 08:39:00 [facility] Ultrasonography in first trimester (procedure) 08:39:00 [facility] Ultrasonography in first trimester (procedure) 08:39:00 [facility] Ultrasonography in first trimester (procedure) 08:39:00 [facility] Ultrasonography in first trimester (procedure) 08:39:00 [facility] Ultrasonography in first trimester (procedure) 08:39:00 [facility] Ultrasonography in first trimester (procedure) 08:39:00 [facility] Urine culture (procedure) 08/09/2020 12:00:00 AM [facility] Urine culture (procedure) 08/09/2020 12:00:00 [facility] Urine culture (procedure) 08/09/2020 12:00:00 [facility] Urine culture (procedure) 08/09/2020 12:00:00 [facility] Urine culture (procedure) 08/09/2020 12:00:00 [facility] Urine culture (procedure) 08/09/2020 12:00:00 [facility] Urine culture (procedure) 08/09/2020 12:00:00 [facility] Urine culture (procedure) 08/09/2020 12:00:00 [facility] Urine culture (procedure) 08/09/2020 12:00:00 [facility] Urine culture (procedure) 08/09/2020 12:00:00 [facility] Urine culture (procedure) 08/09/2020 12:00:00 [facility] Urine culture (procedure) 08/09/2020 12:00:00 [facility] Urine culture (procedure) 08/09/2020 12:00:00 [facility] Urine culture (procedure) 08/09/2020 12:00:00 AM [facility] Urine Culture 08/09/2020 12:00:00 [facility] Urine culture (procedure) 08/09/2020 12:00:00 AM [facility] Ultrasonography of abdomen (procedure) 08/03/2020 07:2 6:00 PM [facility] Ultrasonography of abdomen (procedure) 08/03/2020 07:2 6:00 [facility] Ultrasonography of abdomen (procedure) 08/03/2020 07:2 6:00 [facility] Ultrasonography of abdomen (procedure) 08/03/2020 07:2 6:00 [facility] Ultrasonography of abdomen (procedure) 08/03/2020 07:2 6:00 [facility] Ultrasonography of abdomen (procedure) 08/03/2020 07:2 6:00 [facility] Ultrasonography of abdomen (procedure) 08/03/2020 07:2 6:00 [facility] Ultrasonography of abdomen (procedure) 08/03/2020 07:2 6:00 [facility] Ultrasonography of abdomen (procedure) 08/03/2020 07:2 6:00 [facility] Ultrasonography of abdomen (procedure) 08/03/2020 07:2 6:00 [facility] Ultrasonography of abdomen (procedure) 08/03/2020 07:2 6:00 [facility] Ultrasonography of abdomen (procedure) 08/03/2020 07:2 6:00 [facility] Ultrasonography of abdomen (procedure) 08/03/2020 07:2 6:00 [facility] Ultrasonography of abdomen (procedure) 08/03/2020 07:2 6:00 [facility] Ultrasonography of abdomen (procedure) 08/03/2020 07:2 6:00 [facility] Ultrasonography of abdomen (procedure) 08/03/2020 07:2 6:00 [facility] Ultrasonography of abdomen (procedure) 08/03/2020 07:2 6:00 [facility] Ultrasonography in first trimester (procedure) 06:59:00 [facility] Ultrasonography in first trimester (procedure) 06:59:00 [facility] Ultrasonography in first trimester (procedure) 06:59:00 [facility] Ultrasonography in first trimester (procedure) 06:59:00 [facility] Ultrasonography in first trimester (procedure) 06:59:00 [facility] Ultrasonography in first trimester (procedure) 06:59:00 [facility] Ultrasonography in first trimester (procedure) 06:59:00 [facility] Ultrasonography in first trimester (procedure) 06:59:00 [facility] Ultrasonography in first trimester (procedure) 06:59:00 [facility] Ultrasonography in first trimester (procedure) 06:59:00 [facility] Ultrasonography in first trimester (procedure) 06:59:00 [facility] Ultrasonography in first trimester (procedure) 06:59:00 [facility] Ultrasonography in first trimester (procedure) 06:59:00 [facility] Ultrasonography in first trimester (procedure) 06:59:00 [facility] Ultrasonography in first trimester (procedure) 06:59:00 [facility] Ultrasonography in first trimester (procedure) 06:59:00 [facility] Ultrasonography in first trimester (procedure) 06:59:00 [facility] Transvaginal obstetric ultrasonography (procedure) 08/03/2020 06:58:00 [facility] Transvaginal obstetric ultrasonography (procedure) 08/03/2020 06:58:00 [facility] Transvaginal obstetric ultrasonography (procedure) 08/03/2020 06:58:00 [facility] Transvaginal obstetric ultrasonography (procedure) 08/03/2020 06:58:00 [facility] Transvaginal obstetric ultrasonography (procedure) 08/03/2020 06:58:00 [facility] Transvaginal obstetric ultrasonography (procedure) 08/03/2020 06:58:00 [facility] Transvaginal obstetric ultrasonography (procedure) 08/03/2020 06:58:00 [facility] Transvaginal obstetric ultrasonography (procedure) 08/03/2020 06:58:00 [facility] Transvaginal obstetric ultrasonography (procedure) 08/03/2020 06:58:00 [facility] Transvaginal obstetric ultrasonography (procedure) 08/03/2020 06:58:00 [facility] Transvaginal obstetric ultrasonography (procedure) 08/03/2020 06:58:00 [facility] Transvaginal obstetric ultrasonography (procedure) 08/03/2020 06:58:00 [facility] Transvaginal obstetric ultrasonography (procedure) 08/03/2020 06:58:00 [facility] Transvaginal obstetric ultrasonography (procedure) 08/03/2020 06:58:00 [facility] Transvaginal obstetric ultrasonography (procedure) 08/03/2020 06:58:00 [facility] Transvaginal obstetric ultrasonography (procedure) 08/03/2020 06:58:00 [facility] Transvaginal obstetric ultrasonography (procedure) 08/03/2020 06:58:00 [facility] Urine culture (procedure) 08/03/2020 12:00:00 AM [facility] Urine culture (procedure) 08/03/2020 12:00:00 [facility] Urine culture (procedure) 08/03/2020 12:00:00 [facility] Urine culture (procedure) 08/03/2020 12:00:00 [facility] Urine culture (procedure) 08/03/2020 12:00:00 [facility] Urine culture (procedure) 08/03/2020 12:00:00 [facility] Urine culture (procedure) 08/03/2020 12:00:00 [facility] Urine culture (procedure) 08/03/2020 12:00:00 [facility] Urine culture (procedure) 08/03/2020 12:00:00 [facility] Urine culture (procedure) 08/03/2020 12:00:00 [facility] Urine culture (procedure) 08/03/2020 12:00:00 [facility] Urine culture (procedure) 08/03/2020 12:00:00 [facility] Urine culture (procedure) 08/03/2020 12:00:00 [facility] Urine culture (procedure) 08/03/2020 12:00:00 [facility] Urine culture (procedure) 08/03/2020 12:00:00 [facility] Urine Culture 08/03/2020 12:00:00 [facility] Urine culture (procedure) 08/03/2020 12:00:00 [facility] Viral antigen assay (procedure) 07/30/2020 12:00:00 [facility] Viral antigen assay (procedure) 07/30/2020 12:00:00 [facility] Viral antigen assay (procedure) 07/30/2020 12:00:00 [facility] Viral antigen assay (procedure) 07/30/2020 12:00:00 [facility] Viral antigen assay (procedure) 07/30/2020 12:00:00 [facility] Viral antigen assay (procedure) 07/30/2020 12:00:00 [facility] Severe acute respiratory syndrome coronavirus 2 (SARS-CoV-2) antigen assay 07/30/2020 12:00:00 AM [facility] Severe acute respiratory syndrome coronavirus 2 (SARS-CoV-2) antigen assay 07/30/2020 12:00:00 AM [facility] Severe acute respiratory syndrome coronavirus 2 (SARS-CoV-2) antigen assay 07/30/2020 12:00:00 AM [facility] Viral antigen assay (procedure) 07/30/2020 12:00:00 [facility] Viral antigen assay (procedure) 07/30/2020 12:00:00 [facility] Viral antigen assay (procedure) 07/30/2020 12:00:00 [facility] Viral antigen assay (procedure) 07/30/2020 12:00:00 [facility] Severe acute respiratory syndrome coronavirus 2 (SARS-CoV-2) antigen assay 07/[facility] (SARS-CoV-2[facility] antigen assay 07/30/2020 12:00:00 AM [facility] Severe acute respiratory syndrome coronavirus 2 (SARS-CoV-2) antigen assay 07/30/2020 12:00:00 AM [facility] Viral antigen assay (procedure) 07/30/2020 12:00:00 [facility] Upper GI Biopsy 07/26/2020 12:00:00 AM EST JESSICA ([facility] ) Plain chest X-ray (procedure) 07/01/2020 09:19:[address] [facility] Plain chest X-ray (procedure) 07/01/2020 09:19:[address] [facility] Plain chest X-ray (procedure) 07/01/2020 09:19:[address] [facility] Plain chest X-ray (procedure) 07/01/2020 09:19:[address] [facility] Plain chest X-ray (procedure) 07/01/2020 09:19:[address] [facility] Plain chest X-ray (procedure) 07/01/2020 09:19:[address] [facility] Plain chest X-ray (procedure) 07/01/2020 09:19:[address] [facility] Plain chest X-ray (procedure) 07/01/2020 09:19:[address] [facility] Plain chest X-ray (procedure) 07/01/2020 09:19:[address] [facility] Plain chest X-ray (procedure) 07/01/2020 09:19:[address] [facility] Plain chest X-ray (procedure) 07/01/2020 09:19:[address] [facility] Plain chest X-ray (procedure) 07/01/2020 09:19:[address] [facility] Plain chest X-ray (procedure) 07/01/2020 09:19:[address] [facility] Plain chest X-ray (procedure) 07/01/2020 09:19:[address] [facility] Plain chest X-ray (procedure) 07/01/2020 09:19:[address] [facility] Plain chest X-ray (procedure) 07/01/2020 09:19:[address] [facility] Plain chest X-ray (procedure) 07/01/2020 09:19:[address] [facility] Plain chest X-ray (procedure) 07/01/2020 09:19:[address] [facility] Plain chest X-ray (procedure) 07/01/2020 09:19:[address] [facility] Plain chest X-ray (procedure) 07/01/2020 09:19:[address] [facility] Computed tomography of abdomen and pelvis with contrast (pro cedure) 07/01/2020 09:16:00 PM [facility] Computed tomography of abdomen and pelvis with contrast (pro cedure) 07/01/2020 09:16:00 PM [facility] Computed tomography of abdomen and pelvis with contrast (pro cedure) 07/01/2020 09:16:00 PM [facility] Computed tomography of abdomen and pelvis with contrast (pro cedure) 07/01/2020 09:16:00 PM [facility] Computed tomography of abdomen and pelvis with contrast (pro cedure) 07/01/2020 09:16:00 PM [facility] Computed tomography of abdomen and pelvis with contrast (pro cedure) 07/01/2020 09:16:00 PM [facility] Computed tomography of abdomen and pelvis with contrast (pro cedure) 07/01/2020 09:16:00 PM [facility] Computed tomography of abdomen and pelvis with contrast (pro cedure) 07/01/2020 09:16:00 PM [facility] Computed tomography of abdomen and pelvis with contrast (pro cedure) 07/01/2020 09:16:00 PM [facility] Computed tomography of abdomen and pelvis with contrast (pro cedure) 07/01/2020 09:16:00 PM [facility] Computed tomography of abdomen and pelvis with contrast (pro cedure) 07/01/2020 09:16:00 PM [facility] Computed tomography of abdomen and pelvis with contrast (pro cedure) 07/01/2020 09:16:00 PM [facility] Computed tomography of abdomen and pelvis with contrast (pro cedure) 07/01/2020 09:16:00 PM [facility] Computed tomography of abdomen and pelvis with contrast (pro cedure) 07/01/2020 09:16:00 PM [facility] Computed tomography of abdomen and pelvis with contrast (pro cedure) 07/01/2020 09:16:00 PM [facility] Computed tomography of abdomen and pelvis with contrast (pro cedure) 07/01/2020 09:16:00 PM [facility] Computed tomography of abdomen and pelvis with contrast (pro cedure) 07/01/2020 09:16:00 PM [facility] Computed tomography of abdomen and pelvis with contrast (pro cedure) 07/01/2020 09:16:00 PM [facility] Computed tomography of abdomen and pelvis with contrast (pro cedure) 07/01/2020 09:16:00 PM [facility] Computed tomography of abdomen and pelvis with contrast (pro cedure) 07/01/2020 09:16:00 PM [facility] Viral nucleic acid assay (procedure) 07/01/2020 12:00: [facility] 07/01/2020 12:00:00 AM [facility] Blood culture for bacteria, including anaerobic screen (proc edure) 07/01/2020 12:00:00 AM [facility] Viral nucleic acid assay (procedure) 07/01/2020 12:00: 00 AM [facility] Urine culture (procedure) 07/01/2020 12:00:00 AM [facility] Blood culture for bacteria, including anaerobic screen (proc edure) 07/01/2020 12:00:00 AM [facility] Viral nucleic acid assay (procedure) 07/01/2020 12:00: 00 AM [facility] Urine culture (procedure) 07/01/2020 12:00:00 AM [facility] Blood culture for bacteria, including anaerobic screen (proc edure) 07/01/2020 12:00:[address] [facility] Viral nucleic acid assay (procedure) 07/01/2020 12:00: 00 AM [facility] Urine culture (procedure) 07/01/2020 12:00:00 AM [facility] Blood culture for bacteria, including anaerobic screen (proc edure) 07/01/2020 12:00:[address] [facility] Viral nucleic acid assay (procedure) 07/01/2020 12:00: 00 AM [facility] Urine culture (procedure) 07/01/2020 12:00:00 AM [facility] Blood culture for bacteria, including anaerobic screen (proc edure) 07/01/2020 12:00:00 AM [facility] Viral nucleic acid assay (procedure) 07/01/2020 12:00: 00 AM [facility] Urine culture (procedure) 07/01/2020 12:00:00 AM [facility] Blood culture for bacteria, including anaerobic screen (proc edure) 07/01/2020 12:00:[address] [facility] SARS-CoV-2 (PCR) Interpretation 07/01/2020 12:00:00 AM [facility] Urine culture (procedure) 07/01/2020 12:00:00 AM [facility] Blood culture for bacteria, including anaerobic screen (proc edure) 07/01/2020 12:00:[address] [facility] SARS-CoV-2 (PCR) Interpretation 07/01/2020 12:00:00 AM [facility] Urine culture (procedure) 07/01/2020 12:00:00 AM [facility] Blood culture for bacteria, including anaerobic screen (proc edure) 07/01/2020 12:00:[address] [facility] SARS-CoV-2 (PCR) Interpretation 07/01/2020 12:00:00 AM [facility] Urine culture (procedure) 07/01/2020 12:00:00 AM [facility] Blood culture for bacteria, including anaerobic screen (proc edure) 07/01/2020 12:00:[address] [facility] Viral nucleic acid assay (procedure) 07/01/2020 12:00: 00 AM [facility] Urine culture (procedure) 07/01/2020 12:00:00 AM [facility] Blood culture for bacteria, including anaerobic screen (proc edure) 07/01/2020 12:00:[address] [facility] Viral nucleic acid assay (procedure) 07/01/2020 12:00: 00 AM [facility] Urine culture (procedure) 07/01/2020 12:00:00 AM [facility] Blood culture for bacteria, including anaerobic screen (proc edure) 07/01/2020 12:00:[address] [facility] Viral nucleic acid assay (procedure) 07/01/2020 12:00: 00 AM [facility] Urine culture (procedure) 07/01/2020 12:00:00 AM [facility] Blood culture for bacteria, including anaerobic screen (proc edure) 07/01/2020 12:00:00 AM [facility] Viral nucleic acid assay (procedure) 07/01/2020 12:00: 00 AM [facility] Urine culture (procedure) 07/01/2020 12:00:00 AM [facility] Blood culture for bacteria, including anaerobic screen (proc edure) 07/01/2020 12:00:[address] [facility] SARS-CoV-2 (PCR) Interpretation 07/01/2020 12:00:00 AM [facility] Urine culture (procedure) 07/01/2020 12:00:00 AM [facility] Blood culture for bacteria, including anaerobic screen (proc edure) 07/01/2020 12:00:[address] [facility] SARS-CoV-2 (PCR) Interpretation 07/01/2020 12:00:00 AM [facility] Urine culture (procedure) 07/01/2020 12:00:00 AM [facility] Blood culture for bacteria, including anaerobic screen (proc edure) 07/01/2020 12:00:[address] [facility] SARS-CoV-2 (PCR) Interpretation 07/01/2020 12:00:00 AM [facility] Urine culture (procedure) 07/01/2020 12:00:00 AM [facility] Blood culture for bacteria, including anaerobic screen (proc edure) 07/01/2020 12:00:[address] [facility] SARS-CoV-2 (PCR) Interpretation 07/01/2020 12:00:00 AM [facility] Urine culture (procedure) 07/01/2020 12:00:00 AM [facility] Blood culture for bacteria, including anaerobic screen (proc edure) 07/01/2020 12:00:[address] [facility] SARS-CoV-2 (PCR) Interpretation 07/01/2020 12:00:00 AM [facility] Urine culture (procedure) 07/01/2020 12:00:00 AM [facility] Blood culture for bacteria, including anaerobic screen (proc edure) 07/01/2020 12:00:[address] [facility] Blood Culture 07/01/2020 12:00:00 AM [facility] Urine Culture 07/01/2020 12:00:00 AM [facility] SARS-CoV-2 (PCR) Interpretation 07/01/2020 12:00:00 AM [facility] Viral nucleic acid assay (procedure) 07/01/2020 12:00: 00 AM [facility] Urine culture (procedure) 07/01/2020 12:00:00 AM [facility] Blood culture for bacteria, including anaerobic screen (proc edure) 07/01/2020 12:00:[address] [facility] Nucleic acid assay (procedure) 05/18/2020 12:00:00 AM [facility] Urine culture (procedure) 05/18/2020 12:00:00 AM [facility] Nucleic acid assay (procedure) 05/18/2020 12:00:00 AM [facility] Urine culture (procedure) 05/18/2020 12:00:00 AM [facility] Nucleic acid assay (procedure) 05/18/2020 12:00:00 AM [facility] Urine culture (procedure) 05/18/2020 12:00:00 AM [facility] Nucleic acid assay (procedure) 05/18/2020 12:00:00 AM [facility] Urine culture (procedure) 05/18/2020 12:00:00 AM [facility] Nucle[facility] (procedure[facility] 05/18/2020 12:00:00 AM [facility] Urine culture (procedure) [facility] 05/18/2020 12:00:00 AM EDT [facility] Urine culture (procedure) 05/18/2020 12:00:00 AM [facility] Nucleic acid assay (procedure) 05/18/2020 12:00:00 AM [facility] Urine culture (procedure) 05/18/2020 12:00:00 AM [facility] Nucleic acid assay (procedure) 05/18/2020 12:00:00 AM [facility] Urine culture (procedure) 05/18/2020 12:00:00 AM [facility] Nucleic acid assay (procedure) 05/18/2020 12:00:00 AM [facility] Urine culture (procedure) 05/18/2020 12:00:00 AM [facility] Nucleic acid assay (procedure) 05/18/2020 12:00:00 AM [facility] Urine culture (procedure) 05/18/2020 12:00:00 AM [facility] Nucleic acid assay (procedure) 05/18/2020 12:00:00 AM [facility] Urine culture (procedure) [facility] 05/18/2020 12:00:00 AM [facility] Urine culture (procedure) [facility] 05/18/2020 12:00:00 AM [facility] Urine culture (procedure) 05/18/2020 12:00:00 AM [facility] Nucleic acid assay (procedure) 05/18/2020 12:00:00 AM [facility] Urine culture (procedure) [facility] 05/18/2020 12:00:00 AM [facility] Urine culture (procedure) 05/18/2020 12:00:00 AM [facility] Nucleic acid assay (procedure) 05/18/2020 12:00:00 AM [facility] Urine culture (procedure) 05/18/2020 12:00:00 AM [facility] Nucleic acid assay (procedure) 05/18/2020 12:00:00 AM [facility] Urine culture (procedure) 05/18/2020 12:00:00 AM [facility] Nucleic acid assay (procedure) 05/18/2020 12:00:00 AM [facility] Urine culture (procedure) 05/18/2020 12:00:00 AM [facility] Nucleic acid assay (procedure) 05/18/2020 12:00:00 AM [facility] Urine culture (procedure) 05/18/2020 12:00:00 AM [facility] Nucleic acid assay (procedure) 05/18/2020 12:00:00 AM [facility] Urine culture (procedure) 05/18/2020 12:00:00 AM [facility] Nucleic acid assay (procedure) 05/18/2020 12:00:00 AM [facility] Urine culture (procedure) 05/18/2020 12:00:00 AM [facility] Nucleic acid assay (procedure) 05/18/2020 12:00:00 AM [facility] Urine culture (procedure) 05/18/2020 12:00:00 AM [facility] Nucleic acid assay (procedure) 05/18/2020 12:00:00 AM [facility] Urine culture (procedure) 05/18/2020 12:00:00 AM [facility] Nucleic acid assay (procedure) 05/18/2020 12:00:00 AM [facility] Urine culture (procedure) 05/18/2020 12:00:00 AM [facility] Urine Culture 05/18/2020 12:00:00 AM [facility] Nucleic acid assay (procedure) 05/18/2020 12:00:00 AM [facility] Urine Culture 05/18/2020 12:00:00 AM EDT [facility] Respiratory Panel (PCR) 05/18/2020 12:00:00 AM T [facility] Computed tomography of abdomen and pelvis with contrast (pro cedure) 05/17/2020 08:09:00 PM EDT [facility] Computed tomography of abdomen and pelvis with contrast (pro cedure) 05/17/2020 08:09:00 PM EDT [facility] Computed tomography of abdomen and pelvis with contrast (pro cedure) 05/17/2020 08:09:00 PM EDT [facility] Computed tomography of abdomen and pelvis with contrast (pro cedure) 05/17/2020 08:09:00 PM EDT [facility] Computed tomography of abdomen and pelvis with contrast (pro cedure) 05/17/2020 08:09:00 PM EDT [facility] Computed tomography of abdomen and pelvis with contrast (pro cedure) 05/17/2020 08:09:00 PM EDT [facility] Computed tomography of abdomen and pelvis with contrast (pro cedure) 05/17/2020 08:09:00 PM EDT [facility] Computed tomography of abdomen and pelvis with contrast (pro cedure) 05/17/2020 08:09:00 PM EDT [facility] Computed tomography of abdomen and pelvis with contrast (pro cedure) 05/17/2020 08:09:00 PM EDT [facility] Computed tomography of abdomen and pelvis with contrast (pro cedure) 05/17/2020 08:09:00 PM EDT [facility] Computed tomography of abdomen and pelvis with contrast (pro cedure) 05/17/2020 08:09:00 PM EDT [facility] Computed tomography of abdomen and pelvis with contrast (pro cedure) 05/17/2020 08:09:00 PM EDT [facility] Computed tomography of abdomen and pelvis with contrast (pro cedure) 05/17/2020 08:09:00 PM EDT [facility] Computed tomography of abdomen and pelvis with contrast (pro cedure) 05/17/2020 08:09:00 PM EDT [facility] Computed tomography of abdomen and pelvis with contrast (pro cedure) 05/17/2020 08:09:00 PM EDT [facility] Computed tomography of abdomen and pelvis with contrast (pro cedure) 05/17/2020 08:09:00 PM EDT [facility] Computed tomography of abdomen and pelvis with contrast (pro cedure) 05/17/2020 08:09:00 PM EDT [facility] Computed tomography of abdomen and pelvis with contrast (pro cedure) 05/17/2020 08:09:00 PM EDT [facility] Computed tomography of abdomen and pelvis with contrast (pro cedure) 05/17/2020 08:09:00 PM EDT [facility] Computed tomography of abdomen and pelvis with contrast (pro cedure) 05/17/2020 08:09:00 PM EDT [facility] Computed tomography of abdomen and pelvis with contrast (pro cedure) 05/17/2020 08:09:00 PM EDT [facility] Computed tomography of abdomen and pelvis with contrast (pro cedure) 05/17/2020 08:09:00 PM EDT [facility] Computed tomography of abdomen and pelvis with contrast (pro cedure) 05/17/2020 08:09:00 PM EDT [facility] Computed tomography of abdomen and pelvis with contrast (pro cedure) 05/17/2020 08:09:00 PM EDT [facility] Computed tomography of abdomen and pelvis with contrast (pro cedure) 05/17/2020 08:09:00 PM EDT [facility] Computed tomography of abdomen and pelvis with contrast (pro cedure) 05/17/2020 08:09:00 PM EDT [facility] Computed tomography of abdomen and pelvis with contrast (pro cedure) 05/17/2020 08:09:00 PM EDT [facility] Nucleic acid assay (procedure) [facility] 05/17/2020 12:00:00 AM [facility] Nucleic acid assay (procedure) 05/17/2020 12:00:00 AM [facility] Nucleic acid assay (procedure) 05/17/2020 12:00:00 AM EDT [facility] Nucleic acid assay (procedure) 05/17/2020 12:00:00 AM EDT [facility] Nucleic acid assay (procedure) 05/17/2020 12:00:00 AM EDT [facility] Nucleic acid assay (procedure) 05/17/2020 12:00:00 AM EDT [facility] Nucleic acid assay (procedure) 05/17/2020 12:00:00 AM EDT [facility] Nucleic acid assay (procedure) 05/17/2020 12:00:00 AM EDT [facility] Nucleic acid assay (procedure) 05/17/2020 12:00:00 AM EDT [facility] Nucleic acid assay (procedure) 05/17/2020 12:00:00 AM EDT [facility] Nucleic acid assay (procedure) [facility] 05/17/2020 12:00:00 AM EDT [facility] Nucleic acid assay (procedure) 05/17/2020 12:00:00 AM EDT [facility] Nucleic acid assay (procedure) 05/17/2020 12:00:00 AM EDT [facility] Nucleic acid assay (procedure) 05/17/2020 [facility] 05/17/2020 12:00:00 AM EDT [facility] Nucleic acid assay (procedure) 05/17/2020 12:00:00 AM EDT [facility] Nucleic acid assay (procedure) 05/17/2020 [facility] 05/17/2020 12:00:00 AM EDT [facility] Nucleic acid assay (procedure) 05/17/2020 [facility] 05/17/2020 12:00:00 AM EDT [facility] Nucleic acid assay (procedure) 05/17/2020 12:00:00 AM EDT [facility] Spirometry 04/18/2020 12:00:00 AM EDT Keri SALEEM ([facility] ) Binocular Microscopy 04/10/2020 12:00:00 AM EDT JESSICA ([facility] ) Plain chest X-ray (procedure) 03/25/2020 09:03:00 AM E [facility] Plain chest X-ray (procedure) 03/25/2020 09:03:00 AM E [facility] Plain chest X-ray (procedure) 03/25/2020 09:03:00 AM E [facility] Plain chest X-ray (procedure) 03/25/2020 09:03:00 AM E [facility] Plain chest X-ray (procedure) 03/25/2020 09:03:00 AM E [facility] Plain chest X-ray (procedure) 03/25/2020 09:03:00 AM E [facility] Plain chest X-ray (procedure) 03/25/2020 09:03:00 AM E [facility] Plain chest X-ray (procedure) 03/25/2020 09:03:00 AM E [facility] Plain chest X-ray (procedure) 03/25/2020 09:03:00 AM E [facility] Plain chest X-ray (procedure) 03/25/2020 09:03:00 AM E [facility] Plain chest X-ray (procedure) 03/25/2020 09:03:00 AM E [facility] Plain chest X-ray (procedure) 03/25/2020 09:03:00 AM E [facility] Plain chest X-ray (procedure) 03/25/2020 09:03:00 AM E [facility] Plain chest X-ray (procedure) 03/25/2020 09:03:00 AM E [facility] Plain chest X-ray (procedure) 03/25/2020 09:03:00 AM E [facility] Plain chest X-ray (procedure) 03/25/2020 09:03:00 AM E [facility] Plain chest X-ray (procedure) 03/25/2020 09:03:00 AM E [facility] Plain chest X-ray (procedure) 03/25/2020 09:03:00 AM E [facility] Plain chest X-ray (procedure) 03/25/2020 09:03:00 AM E [facility] Plain chest X-ray (procedure) 03/25/2020 09:03:00 AM E [facility] Plain chest X-ray (procedure) 03/25/2020 09:03:00 AM E [facility] Plain chest X-ray (procedure) 03/25/2020 09:03:00 AM E [facility] Plain chest X-ray (procedure) 03/25/2020 09:03:00 AM E [facility] Plain chest X-ray (procedure) 03/25/2020 09:03:00 AM E [facility] Plain chest X-ray (procedure) 03/25/2020 09:03:00 AM E [facility] Plain chest X-ray (procedure) 03/25/2020 09:03:00 AM E [facility] Plain chest X-ray (procedure) 03/25/2020 09:03:00 AM E [facility] Plain chest X-ray (procedure) 03/25/2020 09:03:00 AM E [facility] Plain chest X-ray (procedure) 03/25/2020 09:03:00 AM E [facility] Plain chest X-ray (procedure) 03/25/2020 09:03:00 AM E [facility] Urine culture (procedure) [facility]/2020 12:00:00 AM EDT [facility] Urine culture (procedure) 03/25/2020 12:00:00 AM T [facility] Urine culture (procedure) [facility] 03/25/2020 12:00:00 AM [facility] Urine culture (procedure) 03/25/2020 12:00:00 AM [facility] Urine culture (procedure) 03/25/2020 12:00:00 AM [facility] Urine culture (procedure) 03/25/2020 12:00:00 AM EDT [facility] Urine culture (procedure) 03/25/2020 12:00:00 AM [facility] Urine culture (procedure) 03/25/2020 12:00:00 AM [facility] Urine culture (procedure) 03/25/2020 12:00:00 AM [facility] Urine culture (procedure) 03/25/2020 12:00:00 AM [facility] Urine culture (procedure) 03/25/2020 12:00:00 AM [facility] Urine culture (procedure) 03/25/2020 12:00:00 AM [facility] Urine culture (procedure) 03/25/2020 12:00:00 AM [facility] Urine culture (procedure) 03/25/2020 12:00:00 AM [facility] Urine culture (procedure) 03/25/2020 12:00:00 AM [facility] Urine culture (procedure) 03/25/2020 12:00:00 AM [facility] Urine culture (procedure) 03/25/2020 12:00:00 AM [facility] Urine culture (procedure) 03/25/2020 12:00:00 AM [facility] Urine culture (procedure) 03/25/2020 12:00:00 AM [facility] Urine culture (procedure) 03/25/2020 12:00:00 AM [facility] Urine culture (procedure) 03/25/2020 12:00:00 AM [facility] Urine culture (procedure) 03/25/2020 12:00:00 AM [facility] Urine culture (procedure) 03/25/2020 12:00:00 AM [facility] Urine culture (procedure) 03/25/2020 12:00:00 AM [facility] Urine culture (procedure) 03/25/2020 12:00:00 AM [facility] Urine Culture 03/25/2020 12:00:00 AM [facility] Urine Culture 03/25/2020 12:00:00 AM [facility] Urine culture (procedure) 03/25/2020 12:00:00 AM [facility] Bacterial antigen assay (procedure) 03/13/2020 12:00:0 0 AM [facility] Beta-hemolytic Streptococcus culture (procedure) 03/13 12:00:00 AM [facility] Bacterial antigen assay (procedure) 03/13/2020 12:00:0 0 AM [facility] Beta-hemolytic Streptococcus culture (procedure) 03/13 12:00:00 AM [facility] Bacterial antigen assay (procedure) 03/13/2020 12:00:0 0 AM [facility] Beta-hemolytic Streptococcus culture (procedure) 03/13 12:00:00 AM [facility] Bacterial antigen assay (procedure) 03/13/2020 12:00:0 0 AM [facility] Beta-hemolytic Streptococcus culture (procedure) 03/13 12:00:00 AM [facility] Bacterial antigen assay (procedure) 03/13/2020 12:00:0 0 AM [facility] Beta-hemolytic Streptococcus culture (procedure) 03/13 12:00:00 AM [facility] Bacterial antigen assay (procedure) 03/13/2020 12:00:0 0 AM [facility] Beta-hemolytic Streptococcus culture (procedure) 03/13 12:00:00 AM [facility] Bacterial antigen assay (procedure) 03/13/2020 12:00:0 0 AM [facility] Beta-hemolytic Streptococcus culture (procedure) 03/13 12:00:00 AM [facility] Bacterial antigen assay (procedure) 03/13/2020 12:00:0 0 AM [facility] Beta-hemolytic Streptococcus culture (procedure) 03/13 12:00:00 AM [facility] Bacterial antigen assay (procedure) 03/13/2020 12:00:0 0 AM [facility] Beta-hemolytic Streptococcus culture (procedure) 03/13 12:00:00 AM [facility] Bacterial antigen assay (procedure) 03/13/2020 12:00:0 0 AM [facility] Beta-hemolytic Streptococcus culture (procedure) 03/13 12:00:00 AM [facility] Bacterial antigen assay (procedure) 03/13/2020 12:00:0 0 AM [facility] Beta-hemolytic Streptococcus culture (procedure) 03/13 12:00:00 AM [facility] Bacterial antigen assay (procedure) 03/13/2020 12:00:0 0 AM [facility] Beta-hemolytic Streptococcus culture (procedure) 03/13 12:00:00 AM [facility] Bacterial antigen assay (procedure) 03/13/2020 12:00:0 0 AM [facility] Beta-hemolytic Streptococcus culture (procedure) 03/13 12:00:00 AM [facility] Bacterial antigen assay (procedure) 03/13/2020 12:00:0 0 AM [facility] Beta-hemolytic Streptococcus culture (procedure) 03/13 12:00:00 AM [facility] Bacterial antigen assay (procedure) 03/13/2020 12:00:0 0 AM [facility] Beta-hemolytic Streptococcus culture (procedure) 03/13 12:00:00 AM [facility] Bacterial antigen assay (procedure) 03/13/2020 12:00:0 0 AM [facility] Beta-hemolytic Streptococcus culture (procedure) 03/13 12:00:00 AM [facility] Bacterial antigen assay (procedure) 03/13/2020 12:00:0 0 AM [facility] Beta-hemolytic Streptococcus culture (procedure) 03/13 12:00:00 AM [facility] Bacterial antigen assay (procedure) 03/13/2020 12:00:0 0 AM [facility] Beta-hemolytic Streptococcus culture (procedure) 03/13 12:00:00 AM [facility] Bacterial antigen assay (procedure) 03/13/2020 12:00:0 0 AM [facility] Beta-hemolytic Streptococcus culture (procedure) 03/13 12:00:00 AM [facility] Bacterial antigen assay (procedure) 03/13/2020 12:00:0 0 AM [facility] Beta-hemolytic Streptococcus culture (procedure) 03/13 12:00:00 AM [facility] Bacterial antigen assay (procedure) 03/13/2020 12:00:0 0 AM [facility] Beta-hemolytic Streptococcus culture (procedure) 03/13 12:00:00 AM [facility] Bacterial antigen assay (procedure) 03/13/2020 12:00:0 0 AM [facility] Beta-hemolytic Streptococcus culture (procedure) 03/13 12:00:00 AM [facility] Bacterial antigen assay (procedure) 03/13/2020 12:00:0 0 AM [facility] Beta-hemolytic Streptococcus culture (procedure) 03/13 12:00:00 AM [facility] Bacterial antigen assay (procedure) 03/13/2020 12:00:0 0 AM [facility] Beta-hemolytic Streptococcus culture (procedure) 03/13 12:00:00 AM [facility] Bacterial antigen assay (procedure) 03/13/2020 12:00:0 0 AM [facility] Beta-hemolytic Streptococcus culture (procedure) 03/13 12:00:00 AM [facility] Bacterial antigen assay (procedure) 03/13/2020 12:00:0 0 AM [facility] Beta-hemolytic Streptococcus culture (procedure) 03/13 12:00:00 AM [facility] Bacterial antigen assay (procedure) 03/13/2020 12:00:0 0 AM [facility] Beta-hemolytic Streptococcus culture (procedure) 03/13 12:00:00 AM [facility] Streptococcus Rapid Screen 03/13/2020 12:00:00 AM [facility] Bacterial antigen assay (procedure) 03/13/2020 12:00:0 0 AM [facility] Beta-hemolytic Streptococcus culture (procedure) 03/13 12:00:00 AM [facility] Bacterial antigen assay (procedure) 03/13/2020 12:00:0 0 AM [facility] Beta-hemolytic Streptococcus culture (procedure) 03/13 12:00:00 AM [facility] Bacterial antigen assay (procedure) 03/13/2020 12:00:0 0 AM [facility] Beta-hemolytic Streptococcus culture (procedure) 03/13 12:00:00 AM [facility] Bacterial antigen assay (procedure) 03/13/2020 12:00:0 0 AM [facility] Pelvic echography (procedure) 03/12/2020 01:21:00 PM E [facility] Pelvic echography (procedure) 03/12/2020 01:21:00 PM E [facility] Pelvic echography (procedure) 03/12/2020 01:21:00 PM E [facility] Pelvic echography (procedure) 03/12/2020 01:21:00 PM E [facility] Pelvic echography (procedure) 03/12/2020 01:21:00 PM E [facility] Pelvic echography (procedure) 03/12/2020 01:21:00 PM E [facility] Pelvic echography (procedure) 03/12/2020 01:21:00 PM E [facility] Pelvic echography (procedure) 03/12/2020 01:21:00 PM E [facility] Pelvic echography (procedure) 03/12/2020 01:21:00 PM E [facility] Pelvic echography (procedure) 03/12/2020 01:21:00 PM E [facility] Pelvic echography (procedure) 03/12/2020 01:21:00 PM E [facility] Pelvic echography (procedure) 03/12/2020 01:21:00 PM E [facility] Pelvic echography (procedure) 03/12/2020 01:21:00 PM E [facility] Pelvic echography (procedure) 03/12/2020 01:21:00 PM E [facility] Pelvic echography (procedure) 03/12/2020 01:21:00 PM E [facility] Pelvic echography (procedure) 03/12/2020 01:21:00 PM E [facility] Pelvic echography (procedure) 03/12/2020 01:21:00 PM E [facility] Pelvic echography (procedure) 03/12/2020 01:21:00 PM E [facility] Pelvic echography (procedure) 03/12/2020 01:21:00 PM E [facility] Pelvic echography (procedure) 03/12/2020 01:21:00 PM E [facility] Pelvic echography (procedure) 03/12/2020 01:21:00 PM E [facility] Pelvic echography (procedure) 03/12/2020 01:21:00 PM E [facility] Pelvic echography (procedure) 03/12/2020 01:21:00 PM E [facility] Pelvic echography (procedure) 03/12/2020 01:21:00 PM E DT [facility] Pelvic echography (procedure) 03/12/2020 01:21:00 PM E [facility] Pelvic echography (procedure) 03/12/2020 01:21:00 PM E [facility] Pelvic echography (procedure) 03/12/2020 01:21:00 PM E DT [facility] Pelvic echography (procedure) 03/12/2020 01:21:00 PM E [facility] Pelvic echography (procedure) 03/12/2020 01:21:00 PM E [facility] Pelvic echography (procedure) 03/12/2020 01:21:00 PM E [facility] Pelvic echography (procedure) 03/12/2020 01:21:00 PM E [facility] Pelvic echography (procedure) 03/12/2020 01:21:00 PM E [facility] Urine culture (procedure) 03/11/2020 12:00:00 AM EDT [facility] Urine culture (procedure) 03/11/2020 12:00:00 AM [facility] Urine culture (procedure) 03/11/2020 12:00:00 AM [facility] Urine culture (procedure) 03/11/2020 12:00:00 AM [facility] Urine culture (procedure) 03/11/2020 12:00:00 AM [facility] Urine culture (procedure) 03/11/2020 12:00:00 AM [facility] Urine culture (procedure) 03/11/2020 12:00:00 AM [facility] Urine culture (procedure) 03/11/2020 12:00:00 AM [facility] Urine culture (procedure) 03/11/2020 12:00:00 AM [facility] Urine culture (procedure) 03/11/2020 12:00:00 AM [facility] Urine culture (procedure) 03/11/2020 12:00:00 AM [facility] Urine culture (procedure) 03/11/2020 12:00:00 AM [facility] Urine culture (procedure) 03/11/2020 12:00:00 AM [facility] Urine culture (procedure) 03/11/2020 12:00:00 AM [facility] Urine culture (procedure) 03/11/2020 12:00:00 AM [facility] Urine culture (procedure) 03/11/2020 12:00:00 AM [facility] Urine culture (procedure) 03/11/2020 12:00:00 AM [facility] Urine culture (procedure) 03/11/2020 12:00:00 AM [facility] Urine culture (procedure) 03/11/2020 12:00:00 AM [facility] Urine culture (procedure) 03/11/2020 12:00:00 AM [facility] Urine culture (procedure) 03/11/2020 12:00:00 AM [facility] Urine culture (procedure) 03/11/2020 12:00:00 AM [facility] Urine culture (procedure) 03/11/2020 12:00:00 AM [facility] Urine culture (procedure) 03/11/2020 12:00:00 AM [facility] Urine culture (procedure) 03/11/2020 12:00:00 AM [facility] Urine culture (procedure) 03/11/2020 12:00:00 AM [facility] Urine culture (procedure) 03/11/2020 12:00:00 AM [facility] Urine culture (procedure) 03/11/2020 12:00:00 AM [facility] Urine culture (procedure) 03/11/2020 12:00:00 AM [facility] Urine culture (procedure) 03/11/2020 12:00:00 AM [facility] Urine culture (procedure) 03/11/2020 12:00:00 AM [facility] Urine culture (procedure) 03/11/2020 12:00:00 AM [facility] Urine culture (procedure) 03/05/2020 12:00:00 AM [facility] Urine culture (procedure) 03/05/2020 12:00:00 AM [facility] Urine culture (procedure) 03/05/2020 12:00:00 AM [facility] Urine culture (procedure) 03/05/2020 12:00:00 AM [facility] Urine culture (procedure) 03/05/2020 12:00:00 AM [facility] Urine culture (procedure) 03/05/2020 12:00:00 AM [facility] Urine culture (procedure) 03/05/2020 12:00:00 AM [facility] Urine culture (procedure) 03/05/2020 12:00:00 AM [facility] Urine culture (procedure) 03/05/2020 12:00:00 AM [facility] Urine culture (procedure) 03/05/2020 12:00:00 AM [facility] Urine culture (procedure) 03/05/2020 12:00:00 AM [facility] Urine culture (procedure) 03/05/2020 12:00:00 AM [facility] Urine culture (procedure) 03/05/2020 12:00:00 AM [facility] Urine culture (procedure) 03/05/2020 12:00:00 AM [facility] Urine culture (procedure) 03/05/2020 12:00:00 AM [facility] Urine culture (procedure) 03/05/2020 12:00:00 AM [facility] Urine culture (procedure) 03/05/2020 12:00:00 AM [facility] Urine culture (procedure) 03/05/2020 12:00:00 AM [facility] Urine culture (procedure) 03/05/2020 12:00:00 AM [facility] Urine culture (procedure) 03/05/2020 12:00:00 AM [facility] Urine culture (procedure) 03/05/2020 12:00:00 AM [facility] Urine culture (procedure) 03/05/2020 12:00:00 AM [facility] Urine culture (procedure) 03/05/2020 12:00:00 AM [facility] Urine culture (procedure) 03/05/2020 12:00:00 AM [facility] Urine culture (procedure) 03/05/2020 12:00:00 AM [facility] Urine culture (procedure) 03/05/2020 12:00:00 AM [facility] Urine culture (procedure) 03/05/2020 12:00:00 AM [facility] Urine culture (procedure) 03/05/2020 12:00:00 AM [facility] Urine culture (procedure) 03/05/2020 12:00:00 AM [facility] Urine Culture 03/05/2020 12:00:00 AM [facility] Urine culture (procedure) 03/05/2020 12:00:00 AM [facility] Urine culture (procedure) 03/05/2020 12:00:00 AM [facility] Urine culture (procedure) 03/05/2020 12:00:00 AM [facility] Urine culture (procedure) 03/05/2020 12:00:00 AM [facility] Urine culture (procedure) 03/05/2020 12:00:00 AM [facility] Computed tomography of abdomen and pelvis with contrast (pro cedure) 03/02/2020 01:30:00 PM [facility] Computed tomography of abdomen and pelvis with contrast (pro cedure) 03/02/2020 01:30:00 PM [facility] Computed tomography of abdomen and pelvis with contrast (pro cedure) 03/02/2020 01:30:00 PM [facility] Computed tomography of abdomen and pelvis with contrast (pro cedure) 03/02/2020 01:30:00 PM [facility] Computed tomography of abdomen and pelvis with contrast (pro cedure) 03/02/2020 01:30:00 PM [facility] Computed tomography of abdomen and pelvis with contrast (pro cedure) 03/02/2020 01:30:00 PM [facility] Computed tomography of abdomen and pelvis with contrast (pro cedure) [facility] (pro cedure[facility] 03/02/2020 01:30:00 PM [facility] Computed tomography of abdomen and pelvis with contrast (pro cedure) 03/02[facility] with contrast (pro cedure) 03/02/2020 01:30:00 PM EDT [facility] Computed tomography of abdomen and pelvis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 Interpretation Code Description Data Jessy rce(s) Supporting Document(s) ID Date Data Source [id number] 08/14/2020 11:09:00 AM EST [facility] [address] [place] [address] [phone] NAME SEX PT STATUS ACCOUNT NUMBER STEPHANIE BELTRAN REG REF [id number] ORDERING PHYSICIAN LOCATION MEDICAL RECORD NO. Jarret Nazario MD [id number] ATTENDING PHYSICIAN DATE OF DATE OF EXAM/TIME Nicol Sebastian NP 1995 08/14/2016 TYPE / EXAM US OB Ultrasound <14 weeks REASON FOR EXAM FOLLOW UP SUBCHOR/ EARLY COMPARISON: August 19, 2020 and 2019 FINDINGS: Gestation: Single Seaforth- rump length: Singlemm compatible with a Single week Single day gestational age. Yolk sac: Not seen No heart rate detected. Uterus: 8.5 x 4.6 x 7.0cm. A subchorionic hemorrhage is still seen. Average ultrasound age of 5 weeks 6 days. EDC: April 10, 2021. Seaforth-rump length: 3.4mm IMPRESSION: 1. Gestational sac measurements, unchanged. 2. Subarachnoid hemorrhage is still seen. 3. Linear intraamniotic echogenicity, possibly the pole. No heart rate detected. Reported By Oliverio Chen MD on 08/14/20 1109 Signed By Oliverio Chen MD on 08/14/20 1114 Date Time CC: Nicol Sebastian; Oliverio Chen MD Techn: FREST Trans Dt/Tm: Trans by: DT Prt Dt/Tm: [id number]: Total DLP = 0.00 mGy-cm 0374-5754: Total Radiation Dose = 0.0000 mSv Lifetime Dose: 56.7900 mSv Name Value Range Interpretation Code Description Data Jessy rce(s) Supporting Document(s) ID Date Data Source [id number] 08/14/2020 10:00:00 AM EST [facility] Name Value Range Interpretation Code Description Data Jessy rce(s) Supporting Document(s) Leukocytes [#/volume] in Blood by Automated count 9.8 10*3/uL 4.45-[address] [facility] Erythrocytes [#/volume] in Blood by Automated count 4.57 10*6/uL 4.20 -5.[address] [facility] Hemoglobin [Moles/volume] in Blood 11.4 g/dL 10.7-15.4 N [facility] Hematocrit [Volume Fraction] of Blood by Automated count 36.3 % 37-47 Below low normal [facility] Erythrocyte mean corpuscular volume [Ent itic volume] in Cord blood by Automated count 79.4 fL 80-96 Below low normal [facility] Erythrocyte mean corpuscular hemoglobin [Entitic mass] by Automated count 24.9 pg 27-31 Below low normal [facility] pital Erythrocyte mean corpuscular hemoglobin concentration [Mass/volume] in Cord blood 31.4 g/dL 33-37 Below low normal [facility] Erythrocyte distribution width [Entitic volume] by Automated count 15 % 11-15 N [facility] Platelets [#/volume] in Blood by Automated count 429 10*3/uL 130-472 N [facility] Platelet mean volume [Entitic volume] in Blood 8.9 fL 9.1-13. 1 Below low normal [facility] Neutrophils/100 leukocytes in Blood by Automated count 63.7 % 41- 77 N [facility] Neutrophils [#/volume] in Blood by Automated count 6.2 U 1.7-7.6 N [facility] Lymphocytes/100 leukocytes in Blood by Automated count 25.9 % 14- 46 N [facility] Lymphocytes [#/volume] in Blood by Automated count 2.5 U 0.6-4.6 N [facility] Monocytes/100 leukocytes in Blood by Automated count 6.9 % 4-12 N [facility] Monocytes [#/volume] in Blood by Automated count 0.7 U 0.2-1.2 N [facility] Eosinophils/100 leukocytes in Blood by Automated count 3.0 % 0-7 N [facility] Eosinophils [#/volume] in Blood by Automated count 0.3 U 0.0-0.5 N [facility] Basophils/100 leukocytes in Blood by Automated count 0.3 % 0.4-1.3 Below low normal [facility] Basophils [#/volume] in Blood by Automated count 0.0 U 0.0-0.2 N [facility] NUCLEATED RED BLOOD CELL 0 % [facility] NUCLEATED RED BLOOD CELL# 0 U [facility] Immature granulocytes [Presence] in Blood by Automated count 0-2 N [facility] Immature granulocytes [#/volume] in Blood by Automated count 0.0 U 0-0.1 N [facility] Manual Differential panel - Blood NO [facility] ID Date Data Source [id number] 08/14/2020 10:46:00 [facility] Name Value Range Interpretation Code Description Data Jessy rce(s) Supporting Document(s) Choriogonadotropin.beta subunit [Units/volume] in Seru m or Plasma 72026 m[iU]/mL 0-10 Above high normal [facility] spital @Instrument will autodiluteAPPROXIMATE G ESTATION AGE APRROXIMATE HCG RANGE 0-1 WEEK 0 - 50 1-2 WEEKS 40 - 300 2-3 WEEKS 100 - 1,000 3-4 WEEKS 500 - 6,000 1-2 MONTHS 5,000 - 200,000 2- 3 MONTHS 10,000 - 100,000 2ND TRIMESTER 3,000 - 50,000 3RD TRIMESTER 1,000 - 50,000 ID Date Data Source [id number] 08/14/2020 10:56:00 [facility] @08/14/20 1055: Pre Op? added. RFLXG = T RX.@08/14/20 1055: Pretransfusion? added. RFLXG = TRX.@08/14/20 1055: Inpatient? added. RFLXG = TRX. Name Value Range Interpretation Code Description Data Jessy rce(s) Supporting Document(s) Blood bank studies (set) No A [facility] @To complete the specimen, you MUST pull the specimen back@up and answer the Preop, Transfusion and Inpatient@questions. Perform a second Type if needed. Blood Type [facility] Antibody Screen NEGATIVE [facility] ID Date Data Source [id number] 08/14/2020 10:56:00 [facility] @08/14/20 1055: Pre Op? added. RFLXG = T RX.@08/14/20 1055: Pretransfusion? added. RFLXG = TRX.@08/14/20 1055: Inpatient? added. RFLXG = TRX. Name Value Range Interpretation Code Description Data Jessy rce(s) Supporting Document(s) Pre Op? No [facility] ID Date Data Source [id number] 08/14/2020 10:56:00 [facility] @08/14/20 1055: Pre Op? added. RFLXG = T RX.@08/14/20 1055: Pretransfusion? added. RFLXG = TRX.@08/14/20 1055: Inpatient? added. RFLXG = TRX. Name Value Range Interpretation Code Description Data Jessy rce(s) Supporting Document(s) Pretransfusion? No [facility] ID Date Data Source [id number] 08/14/2020 10:56:00 AM EST [facility] @08/14/20 1055: Pre Op? added. RFLXG = T RX.@08/14/20 1055: Pretransfusion? added. RFLXG = TRX.@08/14/20 1055: Inpatient? added. RFLXG = TRX. Name Value Range Interpretation Code Description Data Jessy rce(s) Supporting Document(s) Inpatient? No [facility] ID Date Data Source [id number] 08/10/2020 12:18:00 [facility] Name: STEPHANIE BELTRAN : 1995 Age: 25 MR#: [id number] Admit Date: 08/14/20 Provider: Lynn Jain MD Room #: Consulting Provider: Dictation Date: 08/10/20 Consultation ADDENDUM: Previous addendum was in error. Medical records indicate the right account of record is: [id number]. Addended by: <Electronically signed by Lynn Jain MD> 09/10/201620 Addendum Cosigners: D: NATALIA 09/10/201620 T: NATALIA 09/10/201620 CC: ADDENDUM: This H P/consultation belongs to file number: [id number]. Addended by: <Electronically signed by Lynn Jain MD> 09/10/20822 Addendum Cosigners: D: NATALIA 09/10/20822 T: NATALIA 09/10/20822 CC: [facility] Patient Information Date of service:: 08/10/20 P/G/A : 2 Para (T): 1 Para (P): 0 Para (A): 0 Para (L): 0 History of Present Condition History of Present Illness: 25-year-old CF LMP: 05/04/2020, or 05/11/2020, not certain of dates. Patient presents to [facility] ED with complaints of nausea for 1 month. And diffuse upper abdominal pain and discomfort. Can only eat 23 bites/day of different things she had sat lunch breakfast and dinner. For example for breakfast: Bagel/cereal: May have 2 or 3 bites of spoonfuls, then has to stop eating. For lunch: Chicken sandwich or salad: 23 bites of food, then gets very uncomfortable has to stop. For dinner: Mac cheese or pork chops: 2 or 3 bites but has to stop because of increased upper abdominal pain. Usually drinks fruit juice, 1-2 cups a day, or sometimes Sprite and Coca-Cola they help with the nausea. Has had upper abdominal pain for over a month. Had upper GI endoscopy 07/26/2020 at [facility]: Was told it was normal no infection. Had C. difficile in April 2020, was admitted to [facility], had diarrhea every day, was treated with antibiotics and it re solved. Has not had any fever since this nausea started. But has had chills. Also has episodes of diarrhea for 2-3 days, then no BM for 2 to 3 days, then diarrhea again. Yesterday a.m. after urinating and having a bowel movement she saw a lot of blood on wipe. A few hours later when she went again there was no blood. Had a laparoscopic cholecystectomy in April 2019, for gallstones and cholecystitis. Had umbilical hernia repaired at the same time. No other complaints. Pelvic sonogram: 08/09/2020: S IUP, 5 weeks. Possible yolk sac present. pole and heartrate are not seen yet. Small subchorionic hemorrhage. Suggest follow-up. : yes OB HX current : other (Nausea for 4 weeks.) OB HX past : no complications OB/vaginal bleeding: light (Spotting x1 yesterday.) OB assoc symptoms: Reports nausea/vomiting (Predominantly nausea, no vomiting.) and abdominal pain (Upper abdominal pain. No lower abdominal pain.); Denies dysuria Pain quality: mild cramping Pain Location: abdomen (Upper abdomen.) Home Meds/Allergies Home Medications Medication Instructions Recorded Confirmed Last Taken Type metoprolol succinate 50 mg capsule 50 mg PO QDAY #90 each 05/28/20 08/09/20 08/08/20 Rx sprinkle, ext. release 24 hr dicyclomine 20 mg PO DAILY 07/01/20 08/09/20 07/01/20 History pantoprazole 40 mg tablet,delayed 40 mg PO QDAY 07/25/20 08/09/20 08/08/20 History release sertraline 50 mg tablet 100 mg PO HS #30 tab 07/31/20 08/09/20 08/08/20 Rx budesonide-formoterol HFA 80 2 puff INHALATION BID #1 inhaler 08/06/20 08/09/20 Unknown Rx mcg-4.5 mcg/actuation aerosol inhaler pyridoxine (vitamin B6) 25 mg 25 mg PO QDAY #30 tab 08/06/20 08/09/20 Unknown Rx tablet doxylamine succinate [Unisom 25 mg PO TID 08/09/20 08/09/20 08/09/20 16:00 History (doxylamine)] hydroxyzine HCl 25 mg PO BID PRN 08/09/20 08/09/20 08/08/20 History Allergies Allergy/AdvReac Type Severity Reaction Status Date / Time cephalexin [From Keflex] Allergy Intermediate Hives Verified 08/10/20 00:41 latex Allergy Intermediate Rash Verified 08/10/20 00:41 ondansetron [From Zofran] Allergy Intermediate Hives Verified 08/10/20 00:41 sulfamethoxazole Allergy Intermediate Hives Verified 08/10/20 00:41 [From Bactrim] trimethoprim [From Bactrim] Allergy Intermediate Hives Verified 08/10/20 00:41 Medication list updated and reviewed:: Yes Flowsheet EDC EDC Estimated Delivery Date Method Current WG Current Estimate 02/15/21 LMP (Uncertain) 13w 0d Subjective Date of service Date of service:: 08/10/20 Review of Systems General: Reports No Symptoms/Complaints HEENT: Reports No Symptoms Complaints; Denies Headaches, Visual Changes and Eye Pain Endocrine: Reports No Symptoms/Complaints Cardiovascular: Reports No Symptoms/Complaints Pulmonary: Reports No Symptoms/Complaints Gastrointestinal: Reports nausea, abdominal pain (Diffusely upper abdomen) and heartburn; Denies vomiting, diarrhea and constipation Genitourinary: Reports as per HPI; Denies urgency, dysuria and frequency Musculoskeletal: Reports No Symptoms/Complaints Neurological: Reports No Symptoms/Complaints Psych: Reports No Symptoms/Complaints Hematological/Lymphatic: Reports No Symptoms/Complaints Allergic/Immunologic: Reports No Symptoms/Complaints Allergies/ADRs Allergies cephalexin [From Keflex] Allergy (Intermediate, Verified 08/10/20 00:41) Hives latex Allergy (Intermediate, Verified 08/10/20 00:41) Rash ondansetron [From Zofran] Allergy (Intermediate, Verified 08/10/20 00:41) Hives sulfamethoxazole [From Bactrim] Allergy (Intermediate, Verified 08/10/20 00:41) Hives trimethoprim [From Bactrim] Allergy (Intermediate, Verified 08/10/20 00:41) Hives Exam Physical Exam General Appearance: WD/WN Eyes, Ears, Nose, Throat Exam: PERRL/EOMI Neck: non-tender, full range of motion and supple Cardiovascular/Respiratory: regular rate, rhythm Breast Condition: Soft Breast Exam: Normal appearance and Ham Clerk present Gastrointestinal/Abdominal: normal bowel sounds, non tender and soft (Morbidly obese.) Pelvic Exam: deferred (Patient refused pelvic exam.) Extremity: normal range of motion, non-tender and no calf tenderness Neurologic: alert, normal mood/affect and oriented x 3 Psych: Normal Affect and Normal Mood Skin Exam: normal color and warm/dry Lymphatic: no adenopathy Assessment/Plan Impressions/Problems (1) Nausea: Status: Acute Problem priority:: Primary Diagnosis Code(s): R11.0 - Nausea SNOMED Code(s): 481073687 (Problem) Plan of care:: 1. Chronic nausea with poor intake. 2. IV hydration with normal saline, and then banana bag for nutrients. 3. When IV hydration ends, to discharge home from the ER. Follow- up in OB clinic in 1 week. (2) Abdominal pain: Status: Acute Problem priority:: Secondary Diagnosis Qualifiers: Abdominal location: upper abdomen, unspecified Qualified Code(s): R10.10 - Upper abdominal pain, unspecified Code(s): R10.9 - Unspecified abdominal pain SNOMED Code(s): 92141442 (Problem) Plan of care:: 1. Patient advised to eat frequent small meals. 2. Advised to drink room temperature flat Coca-Cola or Sprite as tolerated. 3. To continue vitamin B6 and Unisom for nausea. Prophylactic measures DVT/VTE Prophylactic:: Not indicated A P Free Text/Narrative :: 1. After IV hydration in ED, may be discharged home. 2. Patient advised to eat frequent small meals, crackers, warm flat sodaCoca-Cola/Sprite. Care plan: Plan of care discussed with patient and or family, Patient encouraged to ask questions about plan, Patient agrees with plan of care and Discharge plan and instructions discussed with patient and or family Report Signers: <Electronically signed by Lynn aJin MD> Lynn Jain MD 08/10/20 0048 Lynn Jain MD SIGNATURE DA Report Cosigners: D: NATALIA 08/10/20 0018 T: NATALIA 08/10/20 0018 CC: Name Value Range Interpretation Code Description Data Jessy rce(s) Supporting Document(s) ID Date Data Source [id number] 08/09/2020 09:05:00 PM EST [address] [address] [phone] NAME SEX PT STATUS ACCOUNT NUMBER STEPHANIE BELTRAN [facility] ER [id number] ORDERING PHYSICIAN LOCATION MEDICAL RECORD NO. Mikhail Sheriff MD ER [id number] ATTENDING PHYSICIAN DATE OF DATE OF EXAM/TIME Nicol Sebastian NP 1995 08/09/202039 TYPE / EXAM US OB Transvaginal REASON FOR EXAM PAIN [address] [address] [phone] NAME SEX PT STATUS ACCOUNT NUMBER STEPHANIE BELTRAN [facility] ER [id number] ORDERING PHYSICIAN LOCATION MEDICAL RECORD NO. Mikhail Sheriff MD ER [id number] ATTENDING PHYSICIAN DATE OF DATE OF EXAM/TIME Nicol Sebastian NP 1995 08/09/202038 TYPE / EXAM US OB Ultrasound <14 weeks REASON FOR EXAM Gen abd pain. +HCG STEPHANIE BELTRAN [id number] 1995 ADDENDUM Clinical History/Indication for Exam: Gen abd pain. +HCG Addendum: The average ultrasound gestational age is 5 weeks and 5 days in gestation with an es timated delivery date is 04/06/2020 REPORT SIGNATURE ON [...] There is a possible single intrauterine of approximate ly weeks and 5 days in gestation. There [...] Ocampo Dt/Tm: Trans by: DT Prt Dt/Tm: [id number]: Total DLP = 0.00 mGy-cm 4474-9914: Total Radiation Dose = 0.0000 mSv Lifetime Dose: 56.7900 mSv Reported By Telly Robledo MD on 08/09/202104 Signed By Telly Robledo MD on 08/14/205 Date Time CC: Nicol Sebastian; Telly Robledo MD Techn: PAU Ocampo Dt/Tm: Trans by: DT Prt Dt/Tm: [id number]: Total DLP = 0.00 mGy-cm 6802-3136: Total Radiation Dose = 0.0000 mSv Lifetime Dose: 56.7900 mSv Name Value Range Interpretation Code Description Data Jessy rce(s) Supporting Document(s) ID Date Data Source [id number] 08/09/2020 09:02:00 PM EST [facility] [address] [place] [address] [place] [address] [phone] NAME SEX PT STATUS ACCOUNT NUMBER STEPHANIE BELTRAN Zak [facility] ER [id number] ORDERING PHYSICIAN LOCATION MEDICAL RECORD NO. Mikhail Sheriff MD ER [id number] ATTENDING PHYSICIAN DATE OF DATE OF EXAM/TIME RomuloNicol YELITZA 1995 08/09/202038 TYPE / EXAM US OB Ultrasound <14 weeks REASON FOR EXAM Gen abd pain. +HCG STEPHANIE BELTRAN [id number] 1995 ADDENDUM Clinical History/Indication for Exam: Gen abd pain. +HCG Addendum: The average ultrasound gestational age is 5 weeks and 5 days in gestation with an estimated delivery date is 04/06/2020 REPORT SIGNATURE ON FILE 08/09/2020 (23:06 [facility] ) Signed by: Telly Robledo M.D. Addendum [...] and adnexa. COMPARISON: No relevant prior studies availa ble. FINDINGS: Uterus/cervix: The uterus measures 7.5 x [...] Ocampo Dt/Tm: Trans by: DT Prt Dt/Tm: [id number]: Total DLP = 0.00 mGy-cm 0486-5004: Total Radiation Dose = 0.0000 mSv Lifetime Dose: 56.7900 mSv Name Value Range Interpretation Code Description Data Jessy rce(s) Supporting Document(s) ID Date Data Source [id number] 08/09/2020 08:36:00 [facility] Reason for ordering culture: Abnormal fi ndings UA@08/09/202026: UA W/ MICRO added. RFLXG = UMIC CIF.Method of Collection:: Voided @08/09/202036: Urine culture added. RFL XG = CULT.ADD.50,000 CFU/MLStaph spp, Strep spp, Corynebacterium sppProbable contaminants no senst done Reason for ordering culture: Abnormal fi ndings UA@08/09/202026: UA W/ MICRO added. RFLXG = UMIC CIF.Method of Collection:: Voided Name Value Range Interpretation Code Description Data Jessy rce(s) Supporting Document(s) Color of Urine [facility] Appearance of Urine CLEAR [facility] pH of Urine by Test strip 6.5 5-8 [facility] Specific gravity of Urine by Refractometry 1.022 1.005-1.030 [facility] Leukocyte esterase [Presence] in Urine by Test strip NEGATIVE Abnormal (applies to non-numeric results) [facility]A Culture has been added to this specimen per established criteria Nitrite [Presence] in Urine by Test strip NEGATIVE [facility] Protein [Presence] in Urine by Test strip NEGATIVE [facility] Glucose [Mass/volume] in Urine by Automated test strip NEGATIVE NEG ATIVE [facility] Ketones [Presence] in Urine by Test strip NEGATIVE [facility] Urobilinogen [Presence] in Urine 0.2-1 EU/dl [facility] Bilirubin.total [Presence] in Urine by Automated test strip NEGATIVE [facility] Erythrocytes [#/volume] in Urine by Test strip MODERATE N EGATIVE Above high normal [facility] @DO MICRO!!!!A Culture has been added to this specimen per established criteria URINE MICROSCOPIC? (CIF) Microscopic Added [facility] ID Date Data Source [id number] 08/09/2020 10:24:00 PM EST [facility] Name Value Range Interpretation Code Description Data Jessy rce(s) Supporting Document(s) Choriogonadotropin.beta subunit [Units/volume] in Seru m or Plasma [id number] m[iU]/mL 0-10 Above high normal [facility] spital @Instrument will autodiluteAPPROXIMATE G ESTATION AGE APRROXIMATE HCG RANGE 0-1 WEEK 0 - 50 1-2 WEEKS 40 - 300 2-3 WEEKS 100 - 1,000 3-4 WEEKS 500 - 6,000 1-2 MONTHS 5,000 - 200,000 2- 3 MONTHS 10,000 - 100,000 2ND TRIMESTER 3,000 - 50,000 3RD TRIMESTER 1,000 - 50,000 ID Date Data Source [id number] 08/09/2020 08:18:00 PM [facility] Name Value Range Interpretation Code Description Data Jessy rce(s) Supporting Document(s) Amylase [Enzymatic activity/volume] in Serum or Plasma 39 U/L 30- 118 N [facility] ID Date Data Source [id number] 08/09/2020 08:18:00 PM [facility] Name Value Range Interpretation Code Description Data Jessy rce(s) Supporting Document(s) Lipase [Enzymatic activity/volume] in Serum or Plasma 90 U/L 73-3 93 N [facility] ID Date Data Source [id number] 08/09/2020 07:43:00 PM EST [facility] Name Value Range Interpretation Code Description Data Jessy rce(s) Supporting Document(s) Leukocytes [#/volume] in Blood by Automated count 9.9 10*3/uL 4.45-10 .71 N [facility] Erythrocytes [#/volume] in Blood by Automated count 4.49 10*6/uL 4.20 -5.40 N [facility] Hemoglobin [Moles/volume] in Blood 11.4 g/dL 10.7-15.4 N [facility] Hematocrit [Volume Fraction] of Blood by Automated count 36.1 % 37-47 Below low normal [facility] Erythrocyte mean corpuscular volume [Ent itic volume] in Cord blood by Automated count 80.4 fL 80-96 N [facility] ital Erythrocyte mean corpuscular hemoglobin [Entitic mass] by Automated count 25.4 pg 27-31 Below low normal [facility] pital Erythrocyte mean corpuscular hemoglobin concentration [Mass/volume] in Cord blood 31.6 g/dL 33-37 Below low normal [facility] Erythrocyte distribution width [Entitic volume] by Automated count 14 % 11-15 N [facility] Platelets [#/volume] in Blood by Automated count 423 10*3/uL 130-[address] [facility] Platelet mean volume [Entitic volume] in Blood 8.9 fL 9.1-13. 1 Below low normal [facility] Neutrophils/100 leukocytes in Blood by Automated count 71.3 % 41- 77 N [facility] Neutrophils [#/volume] in Blood by Automated count 7.0 U 1.7-7.[address] [facility] Lymphocytes/100 leukocytes in Blood by Automated count 19.4 % 14- 46 N [facility] Lymphocytes [#/volume] in Blood by Automated count 1.9 U 0.6-4.[address] [facility] Monocytes/100 leukocytes in Blood by Automated count 7.0 % 4-12 N [facility] Monocytes [#/volume] in Blood by Automated count 0.7 U 0.2-1.[address] [facility] Eosinophils/100 leukocytes in Blood by Automated count 1.8 % 0-7 N [facility] Eosinophils [#/volume] in Blood by Automated count 0.2 U 0.0-0.5 N [facility] Basophils/100 leukocytes in Blood by Automated count 0.3 % 0.4-1.3 Below low normal [facility] Basophils [#/volume] in Blood by Automated count 0.0 U 0.0-0.2 N [facility] NUCLEATED RED BLOOD CELL 0 % [facility] NUCLEATED RED BLOOD CELL# 0 U [facility] Immature granulocytes [Presence] in Blood by Automated count 0-2 N [facility] Immature granulocytes [#/volume] in Blood by Automated count 0.0 U 0-0.1 N [facility] Manual Differential panel - Blood NO [facility] ID Date Data Source [id number] 08/09/2020 08:05:00 PM EST [facility] Name Value Range Interpretation Code Description Data Jessy rce(s) Supporting Document(s) Urea nitrogen [Mass/volume] in Serum or Plasma 8 mg/dL 9-23 Below low normal [facility] Sodium [Moles/volume] in Serum or Plasma 141 mmol/L 132-[address] [facility] Potassium [Moles/volume] in Serum or Plasma 3.9 mmol/L 3.5-5.5 N [facility] Chloride [Moles/volume] in Serum or Plasma 111 mmol/L 99-109 Above high normal [facility] Carbon dioxide, total [Moles/volume] in Serum or Plasma 24 mmol/L 20 -31 N [facility] Anion gap in Serum or Plasma 10 mmol/L 8-16 N [facility] Glucose [Mass/volume] in Serum or Plasma 89 mg/dL 74-106 N [facility] Creatinine 1.3 mg/dL 0.5-1.1 Above high normal [facility] Glomerular filtration rate/1.73 sq M.pre dicted [Volume Rate/Area] in Serum or Plasma 50 ml/min ABOVE 60 [facility] ital Alanine aminotransferase [Enzymatic acti vity/volume] in Serum or Plasma by With P-5'-P 30 U/L 10-49 N [facility] ital Aspartate aminotransferase [Enzymatic ac tivity/volume] in Serum or Plasma by With P-5'-P 13 U/L 0-33 N [facility] pital Alkaline phosphatase [Enzymatic activity/volume] in Serum or Plasma 122 U/L 45-129 N [facility] Calcium [Mass/volume] in Serum or Plasma 9.5 mg/dL 8.5-10.[address] [facility] Bilirubin.total [Mass/volume] in Serum or Plasma 0.3 mg/dL 0.3-1.[address] [facility] Albumin [Mass/volume] in Serum or Plasma by Bromocresol purple (BCP) dye binding method 3.6 g/dL 3.2-4.8 [facility] ital Protein [Mass/volume] in Serum or Plasma 8.2 g/dL 5.7-8.[address] [facility] ID Date Data Source [id number] 08/09/2020 07:25:00 PM [facility] Phys[facility] Documentation NAME: STEPHANIE BELTRAN : 1995 AGE: 25 MR#: [id number] SERVICE DATE: 08/09/[address]: Mikhail Sheriff MD PRIMARY CARE DR: Nicol Sebastian NP ROOM#: HPI (Adult, General) General Chief Complaint: GI Stated Complaint: ABDOMINAL PAIN, BLOOD IN URINE/STOOL Time Seen by Provider: 08/09/20 19:11 History of Present Illness Initial Comments: 7:00PM: C : Abd pain. Patient is a 25-year-old female 2 para 1. LMP 04/2020. PMH chronic abd pain. 05/2020 abd pain increased in intensity, generalized abdominal pain, daily, intermittently interferes with sleep at night. 08/03/20 patient presented to this ED. WBC 8600. Hemoglobin 11.5. Serum hCG positive. Pelvic ultrasound was read by radiologist as no acute. Patient was discharged hometo f/u w OB. First OB appointment 08/14/2020. Patient continuesto complain of generalized abdominal pain, daily, intermittently interferes with sleep at night. Abdominal pain is not consistently related to meals, specific food, body position, exertion, bms, orurination. Today when patient wiped herself she noted small amount of blood in urine on one occasion and small amount of blood in stool on one occasion. Last bm today, loose. Allergies/Home Meds Allergies Allergy/AdvReac Type Severity Reaction Status Date / Time cephalexin [From Keflex] Allergy Intermediate Hives Verified 08/09/20 18:34 latex Allergy Intermediate Rash Verified 08/09/20 18:34 ondansetron [From Zofran] Allergy Intermediate Hives Verified 08/09/20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 abnormal movements, Denies abnormal speech, Denies confusion, Denies syncope, Denies frequentfalls, Reports headache(s), Denies localized weakness, Denies other visual disturbances, Denies seizure-like activity and Denies paresthesias Psych Reports system reviewed and no additional complaints, except as documented, Reports as per HPI, Denies anxiety, Denies change in appetite, Denies confusion, Denies depression, Denies irritability,Denies mood swings, Denies hallucinations, Denies homicidal ideation and Denies suicidal ideation Endo Reports system reviewed and no additional complaints, except as documented, Reports as per HPI, Denies excessive sweating, Denies increase in ring/shoe/hat size and Denies palpitations Rasta/Lymph Reports system reviewed and no additional complaints, except as documented, Reports as per HPI, Denies easy bleeding, Denies easy bruising and Denies lymphadenopathy Aller/Immun Denies itchy eyes, Denies lip swelling, Denies throat swelling and Denies tongue swelling Exam Const General: cooperative, comfortable and no acute distress Nutritional Appearance: obese morbidly obese Orientation: alert, awake and oriented x3 HENMT Head: normal to inspection, normocephalic and atraumatic Ears: hearing grossly normal bilaterally, external ears normal, TM's normal bilaterally and EAC's normal General nose exam: external nose normal, nares normal, nasal mucous membranes and turbinates normal and septum normal Face and sinus: normal facial exam and face symmetric Mouth: oral mucosae normal, lip no rmal, tongue normal and moist mucous membranes Throat: posterior oropharynx normal and uvula midline Eyes Alignment and Position: alignment normal and position normal Periorbital: periorbital findings normal Eyelids: eyelids normal Conjunctivae: conjunctivae normal Sclera: sclerae normal Pupils: PERRL and normal by confrontation EOM: EOM intact bilaterally Neck Neck: normal visual inspection, full ROM, no lymphadenopathy, trachea midline and supple Chest Chest: normal palpation of entire chest wall Resp Effort Inspection: normal respiratory effort, able to speak in complete sentences, no audible wheezes and no cough Auscultation: clear to auscultation bilaterally Cardio Rate: regular rate Rhythm: regular rhythm Heart Sounds: S1 normal, S2 normal, no click, no gallops, no murmurs and no rubs GI Inspection: Yes normal to inspection, No edema, Yes large pannus and Yes obesity Palpation: soft and no hepatosplenomegaly Auscultation: normal bowel sounds Skin Lesions: no lesions Rashes: no rashes Trauma: no lacerations or abrasions Wounds: no wounds Hair: normal Other: well healed incision to right posterior auricle Neuro General: patient alert, patient awake, patient oriented x3 and normal light touch, pain and propioception Cranial Nerves: CN's II-XII intact bilaterally, PERRL, accommodation reflex normal, EOM intact bilaterally, no nystagmus, facial strength normal, tongue midline, hearing normal, able to rotate head bilaterally and able to elevate shoulders bilaterally Extrem General: normal to inspection and full ROM Psych Appearance: grossly normal and well kempt Mental Status: mental status grossly normal Speech and Movement: speech and movement normal Mood: dysthymic mood Affect: labile affect Attitude: cooperative Thought Content: normal Assessment Plan Assessment Plan (1) Ear Problem: Code(s): H93.90 - Unspecified disorder of ear, unspecified ear (2) RUQ abdominal pain: Status: Acute Code(s): R10.11 - Right upper quadrant pain SNOMED Code(s): 895761058 Category: Medical Plan - Trice Aj NP: discussed ct results with patient. will re- check liver enzymes. Exam does not support intense pain. advised patient to follow up with Hermila Myers as scheduled Will advise of lab results as they are available Orders: Orders: CMP Today LIPASE Today CBC W AUTO DIFF Today (3) Chronic pain of both ears: Status: Acute Code(s): H92.03 - Otalgia, bilateral; G89.29 - Other chronic pain SNOMED Code(s): 423783614 Category: Medical Plan - Trice Aj NP: Patient reports persistent pain in both ears and reports a frequent occurring cholesterol build up in the left ear that requires removal. Discussed that there is no sign of infection today and willrefer to ENT. Advised tylenol/motrin as directed for pain and useof warm compresses for comfort. Orders: Referrals: Ear, Nose, Throat Referral Electronically Signed By: <Electronically signed by Trice Aj NP> Date/Time Signed: 03/11/202043 Name Value Range Interpretation Code Description Data Jessy rce(s) Supporting Document(s) ID Date Data Source [id number] 03/05/2020 05:14:00 PM EDT [facility] ED Physician Documentation NAME: STEPHANIE BELTRAN : 1995 AGE: 24 MR#: [id number] SERVICE DATE: 03/05/[address]: Florida Castro MD PRIMARY CARE DR: Zechariah Kramer DO ROOM#: HPI (Adult, General) General Chief Complaint: Urogenital Stated Complaint: BLOOD IN URINE Resident LTC, travel outisde home, exposure to hot tubs:: No Time Seen by Provider: 03/05/20 15:48 Source: patient Exam Limitations: no limitations History of Present Illness Narrative: This is a 24-year-old white female who comes in because she had blood in her urine. The patient has recently and currently being treated for urinary tract infection. She states th at when she saw blood in her urine today it concerned her and she became afraid and ultimately wanted to be reevaluated. She denies any other symptoms. She denies any fever chills or any other new symptomatology. Should be noted patient did have a CT done 3 days agowhich was completely normal. This was done for the same reasons. Allergies/Home Meds Allergies Allergy/AdvReac Type Severity Reaction Status Date / Time cephalexin [From Keflex] Allergy Intermediate Hives Verified 03/05/20 15:24 latex Allergy Intermediate Rash Verified 03/05/20 15:24 ondansetron [From Zofran] Allergy Intermediate Hives Verified 03/05/20 15:24 sulfamethoxazole Allergy Intermediate Hives Verified 03/05/20 15:24 [From Bactrim] trimethoprim [From Bactrim] Allergy Intermediate Hives Verified 03/05/20 15:24 Home Medications Medication Instructions Recorded Confirmed Last Taken Type acetaminophen 325 mg tablet 325 mg PO QID PRN #60 tab 02/20/20 03/05/20 Unknown Rx metoprolol succinate 50 mg capsule 50 mg PO QDAY #90 each 02/20/20 03/05/20 Unknown Rx sprinkle, ext. release 24 hr triamcinolone acetonide 0.1 % 1 applic TOP BID 02/20/20 03/05/20 Unknown History topical cream buspirone 7.5 mg tablet 7.5 mg PO BID #60 tab 02/22/20 03/05/20 Unknown Rx desogestrel 0.15 mg-ethinyl 1 tab PO QDAY #28 tab 02/22/20 03/05/20 Unknown Rx estradiol 0.03 mg tablet venlafaxine 150 mg 150 mg PO QAM #30 cap 02/22/20 03/05/20 Unknown Rx capsule,extended release 24 hr omeprazole 20 mg capsule,delayed 20 mg PO QDAY #30 cap 02/26/20 03/05/20 Unknown Rx release nitrofurantoin monohyd/m-cryst 100 mg PO Q12HR 7 Days #14 cap 03/02/20 03/05/20 Unknown Rx [Macrobid] promethazine 25 mg PO TID PRN #9 tab 03/02/20 03/05/20 Unknown Rx PMH (from Triage) Patient Medical History PMH Reviewed/Updated as Needed: Yes PMH/PSH from Triage: Medical History (Updated 03/02/20 @ 14:37 by Florida Castro) Anxiety (Medical) F41.9 Depression (Medical) F32.9 GERD (gastroesophageal reflux disease) (Medical) K21.9 Hepatomegaly (Medical) R16.0 HTN (hypertension) (Medical) I10 Morbid obesity (Medical) E66.01 Otitis media (Medical) H66.90 PTSD (post-traumatic stress disorder) (Medical) F43.10 Ruptured tympanic membrane (Medical) H72.90 UTI (urinary tract infection) (Medical) N39.0 Surgical History (Updated 03/02/20 @ 11:50 by Heidi Myers) deliv NOS-unsp (Surgical) Encounter for cholecystectomy (Surgical) Z76.89 History of cholecystectomy (Surgical) Z90.49 History of placement of ear tubes (Surgical) Z96.22 Female History : No Hx Drug Resistant Infections Hx Other Resistant Infection?: No Isolation: Standard precautions Hx Recent Travel Nurse screening for coronavirus: Recent Travel outside the No country (where) Has patient experienced No coronavirus symptoms Social History Are you in a relationship with/Does anyone hit you, yell/swear at you, steal from you?: No Substance Use Second Hand Smoke Exposure: No Smoking Status: Never smoker Vaccination History Hx/Date of Tetanus, Diphtheria Vaccination: Yes Hx/Date of Influenza Vaccination: Yes Hx/Date of Pneumococcal Vaccination: Yes PFS Medical History (Updated 03/05/20 @ 17:17 by Florida Castro) Anxiety Dep ression GERD (gastroesophageal reflux disease) Hepatomegaly HTN (hypertension) Morbid obesity Otitis media PTSD (post-traumatic stress disorder) Ruptured tympanic membrane UTI (urinary tract infection) Surgical History deliv NOS-unsp Encounter for cholecystectomy History of cholecystectomy History of placement of ear tubes Family History (Updated 02/20/20 @ 12:14 by Zechariah Kramer DO) Grandmother Stroke Father Hernia Social History Does the Patient have a Healthcare Proxy: No Does Patient have a DNR?: No Does Patient have a Living Will?: No Smoking Status: Never smoker ROS Review of Systems ROS Narrative: Review of systems was categorically negative with exception of chief complaint and history of present illness as noted. Physical Exam General Physical Exam Narrative: Is a well-developed morbidly obese 24-year-old white female who is awake alert oriented x3 no acute distress but anxious about her overall health. Limitations: no limitations General appearance: alert, in no apparent distress and anxious Head Head exam: Present atraumatic, normocephalic and normal inspection Eye Eye exam: Present normal apperance, PERRL and EOMI; Absent scleral icterus Neck Neck exam: Present normal inspection GI/Abdominal GI/Abdominal exam: Present Abd soft, bowel sounds present all quadrents and normal bowel sounds; Absent distended, tenderness, guarding, rebound and rigid External exam: Present other (Always exam was offered at this point time by this examiner. The patient declined. She states she has no bleeding other than when she had some urination.) Extremities Exam Extremities exam: Present normal inspection and Full ROM without tenderness, capillary refill brisk Back Exam Back exam: Present normal inspection and full ROM; Absent tenderness, CVA tenderness (R) and CVA tenderness (L) Neurological Exam Neurological exam: Pre sent alert, oriented X3, CN II-XII intact and normal gait Psychiatric Psychiatric exam: Present normal affect and normal mood Skin Skin exam: Present warm, dry, intact and normal color Vital Signs Vital Signs: Vital Signs 03/05/20 15:02 Temperature 99.8 F H Pulse Rate 96 Respiratory Rate 20 Blood Pressure 153/64 O2 Sat by Pulse Oximetry 97 MDM (comprehensive) Lab Data Labs: Laboratory Results Last 24 hours 03/05/20 15:29: Urine Color Yellow, Urine Appearance Cloudy A, Urine pH 6.0, Ur Specific [employer] 1.021, Urine Protein Trace, Urine Ketones Negative, Urine Blood Large H, Urine Nitrate Negative, Urine Bilirubin Negative, Urine Urobilinogen 0.2 eu/dl, Ur Leukocyte Esterase Trace A, Add Ur Microanalysis Microscopic added, Urine RBC 3- 5, Urine WBC Occasional, Ur Squamous Epith Cells Many, Urine Bacteria Small amount H, Urine Glucose Negative Medical Decision Making Free Text/Narativ e:: Discussed with the patient that having blood sometimes her urine we are being treated for urinary tract infection is not unusual. At this point time we also discussed her urine does not look any worse than previous urines and in fact is almost normal with the exception of that there is a small amount of blood in the urine during this exam. We recommended that she follow-up with her primary care provider next 48 hours. We also advised that if she develops fever chills or any change in her condition that she is always welcome to return to the ED for reevaluation treatment on an emergency basis. Discharge Plan Admission/Discharge Dx Primary DC Diagnosis: Hemorrhagic cystitis ED Provider: Florida Castro ED Status: Ready for Discharge Time Seen by Provider: 03/05/20 15:48 Triaged At: 03/05/20 15:02 Condition Condition: Good Discharge Detail Disposition: Home, Self-Care Med Rec New Prescriptions: No Action acetaminophen [Tylenol] 325 mg tablet 325 mg P O QID PRN (Reason: pain) Qty: 60 RF: 5 metoprolol succinate 50 mg capsule,sprinkle,ER 24hr 50 mg PO QDAY Qty: 90 RF: 0 nitrofurantoin monohyd/m-cryst [Macrobid] 100 mg capsule 100 mg PO Q12HR 7 Days Qty: 14 RF: 0 promethazine 25 mg tablet 25 mg PO TID PRN (Reason: nausea and vomiting) Qty: 9 RF: 0 buspirone 7.5 mg tablet 7.5 mg PO BID Qty: 60 RF: 2 desogestrel-ethinyl estradiol [Isibloom] 0.15-0.03 mg tablet 1 tab PO QDAY Qty: 28 RF: 2 venlafaxine 150 mg capsule,extended release 24hr 150 mg PO QAM Qty: 30 RF: 2 omeprazole 20 mg capsule,delayed release(DR/EC) 20 mg PO QDAY Qty: 30 RF: 2 Discharge Education Printouts: Urinary Tract Infection in Women (ED) Follow Up Visit/Referrals: Zechariah Kramer DO [Primary Care Provider] - (Call for an appointment to be seen in the next 48 hours) Discharge Problem: Hemorrhagic cystitis Medications Medication reconciliation performed by provider at discharge: Yes Follow Up Care/Instructions Diet/Activity/Wound Care..: As we discussed the urinalysis test today does look better than previous examination. At this pointtime it would appear that you most likely did pass a blood clot or 2 and that is not unexpected whenyou have a urinary tract infection. At this point in time you should continue the current antibiotics continue to push fluids and then follow- up with Dr. Kramer if you are not dramatically improved within the next 2 to 3 days. If you continue to have bleeding when you do not have urination then a female exam would need to be done. As we did discuss the having 1 done today and you declined this would be the next part of investigation should your symptoms continue for more than just a couple of more days. This should be able to be arranged through your primary care provider's office. *Discharge Patient* Discharge Orders: Discharge Order (Routine); Ordered 03/05/20 Ordered By: Florida Castro Interventions Interventions: ED Urogenital Last Done: 03/05/20 15:21 Report Signers: <Electronically signed by Florida Castro > Florida Castro 03/05/20 1724 Florida Castro DA Report Cosigners: D: CECE 03/05/20 1714 T: CECE 03/05/20 1714 CC: Zechariah Kramer DO Name Value Range Interpretation Code Description Data Jessy rce(s) Supporting Document(s) ID Date Data Source [id number] 03/05/2020 05:05:00 PM EDT [facility] Reason for ordering culture: Abnormal fi ndings UA@03/05/20 1635: UA W/ MICRO added. RFLXG = UMIC CIF.Method of Collection:: Voided @03/05/20 1707: Urine culture added. RFL XG = CULT.ADD.Greater than 100,000 CFU/MLNormal Commensal FloraProbable contaminants no senst doneSpecimen not suitable for cultureRecollection of specimen recommended Reason for ordering culture: Abnormal fi ndings UA@03/05/20 1635: UA W/ MICRO added. RFLXG = UMIC CIF.Method of Collection:: Voided Name Value Range Interpretation Code Description Data Jessy rce(s) Supporting Document(s) Color of Urine [facility] Appearance of Urine CLEAR Abnormal (applies to non-nu meric results) [facility] pH of Urine by Test strip 6.0 5-8 [facility] Specific gravity of Urine by Refractometry 1.021 1.005-1.030 [facility] Leukocyte esterase [Presence] in Urine by Test strip NEGATIVE Abnormal (applies to non-numeric results) [facility]A Culture has been added to this specimen per established criteria Nitrite [Presence] in Urine by Test strip NEGATIVE [facility] Protein [Presence] in Urine by Test strip NEGATIVE [facility] Glucose [Mass/volume] in Urine by Automated test strip NEGATIVE NEG ATIVE [facility] Ketones [Presence] in Urine by Test strip NEGATIVE [facility] Urobilinogen [Presence] in Urine 0.2-1 EU/dl [facility] Bilirubin.total [Presence] in Urine by Automated test strip NEGATIVE [facility] Erythrocytes [#/volume] in Urine by Test strip LARGE NEGATIV E Above high normal [facility] @DO MICRO!!!!A Culture has been added to this specimen per established criteria URINE MICROSCOPIC? (CIF) Microscopic Added [facility] ID Date Data Source [id number] 03/06/2020 09:18:00 AM EDT [facility] Reason for ordering culture: Abnormal fi ndings UA@03/05/20 1635: UA W/ MICRO added. RFLXG = UMIC CIF.Method of Collection:: Voided @03/05/20 1707: Urine culture added. RFL XG = CULT.ADD.Greater than 100,000 CFU/MLNormal Commensal FloraProbable contaminants no senst doneSpecimen not suitable for cultureRecollection of specimen recommended Reason for ordering culture: Abnormal fi ndings UA@03/05/20 1635: UA W/ MICRO added. RFLXG = UMIC CIF.Method of Collection:: Voided Name Value Range Interpretation Code Description Data Jessy rce(s) Supporting Document(s) ID Date Data Source [id number] 03/05/2020 05:05:00 PM EDT [facility] Reason for ordering culture: Abnormal fi ndings UA@03/05/20 1635: UA W/ MICRO added. RFLXG = UMIC CIF.Method of Collection:: Voided @03/05/20 1707: Urine culture added. RFL XG = CULT.ADD.Greater than 100,000 CFU/MLNormal Commensal FloraProbable contaminants no senst doneSpecimen not suitable for cultureRecollection of specimen recommended Reason for ordering culture: Abnormal fi ndings UA@03/05/20 1635: UA W/ MICRO added. RFLXG = UMIC CIF.Method of Collection:: Voided Name Value Range Interpretation Code Description Data [facility] rce(s) Supporting Document(s) Erythrocytes [#/volume] in Urine by Manual count 3-5 /hpf 0-5 [facility] Leukocytes [#/volume] in Urine by Manual count OCCASIONAL 0-5 [facility] Cells [Type] in Urine sediment by Light microscopy [facility] Bacteria [Presence] in Urine sediment by Light microscopy NEGATIVE Above high normal [facility] ID Date Data Source [id number] 03/02/2020 01:53:00 PM EDT [facility] [address] [place] [address] [phone] NAME SEX PT STATUS ACCOUNT NUMBER STEPHANIE BELTRAN [facility] ER [id number] ORDERING PHYSICIAN LOCATION MEDICAL RECORD NO. Florida Castro MD ER [id number] ATTENDING PHYSICIAN DATE OF DATE OF EXAM/TIME Zechariah Kramer DO 1995 03/02/20 / 1329 TYPE [...] MD on 03/02/20 1353 Date Time CC: Zechariah Kramer DO; Warren Bourne MD Techn: MARCIN Trans Dt/Tm: Trans by: LUPIS Prt Dt/Tm: : Total DLP = 1121.00 mGy-cm : Total Radiation Dose = 16.8150 mSv Lifetime Dose: 16.8150 mSv Name Value Range Interpretation Code Description Data Jessy rce(s) Supporting Document(s) ID Date Data Source [id number] 03/02/2020 12:26:00 PM EDT [facility] @ DID THE CONTROL BAND APPEAR? Y@ DID TH E BACKGROUND CLEAR? Y @03/02/20 1220: MANUAL DIFF added. RFLXG = DIFF. @03/02/20 1220: MANUAL DIFF added. RFLXG = DIFF. Name Value Range Interpretation Code Description Data Jessy rce(s) Supporting Document(s) Urea nitrogen [Mass/volume] in Serum or Plasma 8 mg/dL 9-23 Below low normal [facility] Sodium [Moles/volume] in Serum or Plasma 139 mmol/L 132-146 N [facility] Potassium [Moles/volume] in Serum or Plasma 4.1 mmol/L 3.5-5.5 N [facility] Chloride [Moles/volume] in Serum or Plasma 111 mmol/L 99-109 Above high normal [facility] Carbon dioxide, total [Moles/volume] in Serum or Plasma 20 mmol/L 20 -31 N [facility] Anion gap in Serum or Plasma 12 mmol/L 8-16 N [facility] Glucose [Mass/volume] in Serum or Plasma 91 mg/dL 74-106 N [facility] Creatinine 1.0 mg/dL 0.5-1.1 [facility] Glomerular filtration rate/1.73 sq M.pre dicted [Volume Rate/Area] in Serum or Plasma Greater Than 60 ABOVE 60 [facility] Alanine aminotransferase [Enzymatic acti vity/volume] in Serum or Plasma by With P-5'-P 29 U/L 10-49 N [facility] ital Aspartate aminotransferase [Enzymatic ac tivity/volume] in Serum or Plasma by With P-5'-P 14 U/L 0-33 [facility] Alkaline phosphatase [Enzymatic activity/volume] in Serum or Plasma 136 U/L 45-129 Above high normal [facility] Calcium [Mass/volume] in Serum or Plasma 9.0 mg/dL 8.5-10.1 N [facility] Bilirubin.total [Mass/volume] in Serum or Plasma 0.4 mg/dL 0.3-1.2 [facility] Albumin [Mass/volume] in Serum or Plasma by Bromocresol purple (BCP) dye binding method 3.1 g/dL 3.2-4.8 Below low normal [facility] Protein [Mass/volume] in Serum or Plasma 7.9 g/dL 5.7-8.2 [facility] ID Date Data Source [id number] 03/02/2020 12:13:00 PM EDT [facility] @ DID THE CONTROL BAND APPEAR? Y@ DID TH E BACKGROUND CLEAR? Y @03/02/20 1220: MANUAL DIFF added. RFLXG = DIFF. @03/02/20 1220: MANUAL DIFF added. RFLXG = DIFF. Name Value Range Interpretation Code Description Data Jessy rce(s) Supporting Document(s) Choriogonadotropin [Moles/volume] in Urine NEGATIVE NEGATIVE [facility] @Reenter manual test result: NEGATIVE@by Roderick Cee at 03/02/20 1213. ID Date Data Source [id number] 03/02/2020 12:33:00 PM EDT [facility] @ DID THE CONTROL BAND APPEAR? Y@ DID TH E BACKGROUND CLEAR? Y @03/02/20 1220: MANUAL DIFF added. RFLXG = DIFF. @03/02/20 1220: MANUAL DIFF added. RFLXG = DIFF. Name Value Range Interpretation Code Description Data Jessy rce(s) Supporting Document(s) Leukocytes [#/volume] in Blood by Automated count 10.3 10*3/uL 4.45-[address] [facility] Erythrocytes [#/volume] in Blood by Automated count 4.52 10*6/uL 4.20 -5.40 N [facility] Hemoglobin [Moles/volume] in Blood 12.1 g/dL 10.7-15.4 N [facility] Hematocrit [Volume Fraction] of Blood by Automated count 36.9 % 37-47 Below low normal [facility] Erythrocyte mean corpuscular volume [Ent itic volume] in Cord blood by Automated count 81.6 fL 80-96 N [facility] ital Erythrocyte mean corpuscular hemoglobin [Entitic mass] by Automated count 26.8 pg 27-31 Below low normal [facility] pital Erythrocyte mean corpuscular hemoglobin concentration [Mass/volume] in Cord blood 32.8 g/dL 33-37 Below low normal [facility] Erythrocyte distribution width [Entitic volume] by Automated count 14 % 11-15 N [facility] Platelets [#/volume] in Blood by Automated count 410 10*3/uL 130-472 N [facility] Platelet mean volume [Entitic volume] in Blood 8.6 fL 9.1-13. 1 Below low normal [facility] Neutrophils/100 leukocytes in Blood by Automated count 65.4 % 41- 77 N [facility] Neutrophils [#/volume] in Blood by Automated count 6.7 U 1.7-7.6 N [facility] Lymphocytes/100 leukocytes in Blood by Automated count 23.6 % 14- 46 N [facility] Lymphocytes [#/volume] in Blood by Automated count 2.4 U 0.6-4.6 N [facility] Monocytes/100 leukocytes in Blood by Automated count 7.8 % 4-12 [facility] Monocytes [#/volume] in Blood by Automated count 0.8 U 0.2-1.2 N [facility] Eosinophils/100 leukocytes in Blood by Automated count 2.4 % 0-7 [facility] Eosinophils [#/volume] in Blood by Automated count 0.3 U 0.0-0.5 [facility] Basophils/100 leukocytes in Blood by Automated count 0.5 % 0.4-1 .3 [facility] Basophils [#/volume] in Blood by Automated count 0.1 U 0.0-0.2 N [facility] NUCLEATED RED BLOOD CELL 0 % [facility] NUCLEATED RED BLOOD CELL# 0 U [facility] Immature granulocytes [Presence] in Blood by Automated count 0-2 N [facility] Immature granulocytes [#/volume] in Blood by Automated count 0.0 U 0-0.1 N [facility] Manual Differential panel - Blood NO [facility] @ Edited by: Roderick Cee@ Reason: LUIS CARLOS BRAVO DIFF NOT INDICATED ID Date Data Source [id number] 03/02/2020 12:33:00 PM EDT [facility] @ DID THE CONTROL BAND APPEAR? Y@ DID TH E BACKGROUND CLEAR? Y @03/02/20 1220: MANUAL DIFF added. RFLXG = DIFF. @03/02/20 1220: MANUAL DIFF added. RFLXG = DIFF. Name Value Range Interpretation Code Description Data Jessy rce(s) Supporting Document(s) Platelets [#/volume] in Blood by Estimate APPEARS NORMAL NORMAL [facility] Morphology [Interpretation] in Blood Narrative APPEARS NORMAL NORMAL [facility] ID Date Data Source [id number] 03/02/2020 11:49:00 AM EDT [facility] ED Physician Documentation NAME: STEPHANIE BELTRAN : 1995 AGE: 24 MR#: [id number] SERVICE DATE: 03/02/[address]: Florida Castro MD PRIMARY CARE DR: Zechariah Kramer DO ROOM#: HPI (Adult, General) General Chief Complaint: GI Stated Complaint: ABDOMINAL PAIN Resident [facility], travel outisde home, exposure to hot tubs:: No Time Seen by Provider: 03/02/20 11:40 Source: patient Exam Limitations: no limitations History of Present Illness Narrative: This is a 24-year-old morbidly obese white female comes in complaining of having generalized abdominal pain and right sided back pain that all started yesterday. She denies any specific complaints of having urinary frequency or burning. She does have nausea. No vomiting. She stated she called her primary care provider who told her to come to the emergency room for evaluation. History of Present Illness Timing/Duration: other (12 to 18 hours) [address] Injury/Event Occurred (if applicable): home Past Medical History Past Medical History: Nursing Past Medical History Has Been Reviewed Allergies/Home Meds Allergies Allergy/AdvReac Type Severity Reaction Status Date / Time cephalexin [From Keflex] Allergy Intermediate Hives Verified 03/02/20 11:50 latex Allergy Intermediate Rash Verified 03/02/20 11:50 ondansetron [From Zofran] Allergy Intermediate Hives Verified 03/02/20 11:50 sulfamethoxazole Allergy Intermediate Hives Verified 03/02/20 11:50 [From Bactrim] trimethoprim [From Bactrim] Allergy Intermediate Hives Verified 03/02/20 11:50 Home Medications Medication Instructions Recorded Confirmed Last Taken Type acetaminophen 325 mg tablet 325 mg PO QID PRN #60 tab 06/30/20 06/30/20 Unknown Rx metoprolol succinate 50 mg capsule 50 mg PO QDAY #90 each 02/20/20 02/20/20 Unknown Rx sprinkle, ext. release 24 hr triamcinolone acetonide 0.1 % 1 applic TOP BID 02/20/20 Unknown History topical cream buspirone 7.5 mg tablet 7.5 mg PO BID #60 tab 02/22/20 Unknown Rx desogestrel 0.15 mg-ethinyl 1 tab PO QDAY #28 tab 02/22/20 Unknown Rx estradiol 0.03 mg tablet venlafaxine 150 mg 150 mg PO QAM #30 cap 02/22/20 Unknown Rx capsule,extended release 24 hr omeprazole 20 mg capsule,delayed 20 mg PO QDAY #30 cap 02/26/20 Unknown Rx release nitrofurantoin monohyd/m-cryst 100 mg PO Q12HR 7 Days #14 cap 03/02/20 Unknown Rx [Macrobid] promethazine 25 mg PO TID PRN #9 tab 03/02/20 Unknown Rx PMH (from Triage) Patient Medical History PMH Reviewed/Updated as Needed: Yes PMH/PSH from Triage: Medical History (Updated 02/20/20 @ 13:18 by Zechariah Kramer DO) Anxiety (Medical) F41.9 Depression (Medical) F32.9 GERD (gastroesophageal reflux disease) (Medical) K21.9 Hepatomegaly (Medical) R16.0 HTN (hypertension) (Medical) I10 Morbid obesity (Medical) E66.01 Otitis media (Medical) H66.90 PTSD (post-traumatic stress disorder) (Medical) F43.10 Ruptured tympanic membrane (Medical) H72.90 UTI (urinary tract infection) (Medical) N39.0 Surgical History (Updated 03/02/20 @ 11:50 by Heidi Myers) deliv NOS-unsp (Surgical) Encounter for cholecystectomy (Surgical) Z76.89 History of cholecystectomy (Surgical) Z90.49 History of placement of ear tubes (Surgical) Z96.22 Hx Drug Resistant Infections Isolation: Standard precautions Hx Recent Travel Nurse screening for coronavirus: Recent Travel outside the No country (where) Has patient experienced No coronavirus symptoms PFSH Medical History (Updated 03/02/20 @ 14:37 by [place] Castro) Anxiety Depression GERD (gastroesophageal reflux disease) Hepatomegaly HTN (hypertension) Morbid obesity Otitis media PTSD (post-traumatic stress disorder) Ruptured tympanic membrane UTI (urinary tract infection) Surgical History (Updated 03/02/20 @ 11:50 by Heidi Myers) deliv NOS-unsp Encounter for cholecystectomy History of cholecystectomy History of placement of ear tubes Family History (Updated 02/20/20 @ 12:14 by Zechariah Kramer DO) Grandmother Stroke Father Hernia Social History Does the Patient have a Healthcare Proxy: No Does Patient have a DNR?: No Does Patient have a Living Will?: No Smoking Status: Never smoker ROS Review of Systems Constitutional: Denies fever, chills, sweats, weakness, malaise, weight loss, weight gain and other Eyes: Denies vision change, eye discharge/drng, redness, eye pain, descr of pain, conjunctiva inflammation, eyelid inflammation, eyelid issues, floaters, foreign body, r/t accident, contact lens user, wears glasses and other ENT: Denies mouth pain, mouth swelling, dental pain, dry mouth, bleeding gums, ear pain, hearing loss, tinnitis, ear discharge, nasal pain, nasal discharge, nasal congestion, post nasal drip, epistaxis, throat pain, throat swelling, hoarseness, constant throat clearing, pain upon swallowing, recent head trauma, recent airplane travel, recent swimming/diving, uses hearing aid/ear plugs, pain worse with motion, prolonged use of topical meds and other Respiratory: Denies cough, sputum, orthopnea, SOB w/exertion rest, SOB with excertion, SOB at rest, SOB, stridor, wheezing, hemoptysis, pleuritic pain, exposures and other Cardiovascular: Denies chest pain, palpitations, orthopnea, hypertension, paroxysmal noc dyspnea, edema, light headedness, dyspnea on exertion, syncope, known heart murmurs, leg cramps w/walking, pain in feet/toes at night, varicose veins and other Gastrointestinal: Reports nausea and abdominal pain; Denies diarrhea, constipation, heartburn, black tarry stools, melena and hematochezia Musculoskeletal: Denies neck pain, shoulder pain, arm pain, back pain, hand pain, leg pain, foot pain, thigh or calf cramps, muscle weakness, muscle tenderness, joint swelling, sciatica, muscle pain, joint pain and other Skin/Breasts: Denies rash, lesions, hives, pruritus, bruising, change in color, color changes w/cold, sensitivity to sun, change in hair/nails, breast pain, breast lump, nipple discharge, other, tightness, nodules or bumps and hair loss Neurologic: Denies weakness, numbness, headache, incoordination, change in speech, confusion, dizziness, vertigo, lightheadedness, seizures, muscle spasm, tremors, loss of consciousness, memory loss, sensitivity/pain in hands, sensitivity/pain in feet, abnormal gait, paresthesias and other Psychiatric: Reports anxiety and depression Endocrine: Denies No Symptoms/Complaints, Excessive sweating, Loss of appetite, Increased appetite, Intolerance to cold, Intolerance to heat, Flushing, Polydipsia, Polyuria, Increased salt intake, Fingernail changes, Unexplained weight gain, Unexplained weight loss, Decreased sexual desire and Other Allergic/Immunologic: Denies No Symptoms/Complaints, rash, hives, fever, skin sensitivity, rhinorrhea, night sweats, excessive lacrimation, wheals, flare, latex allergy/sensitivity, seasonal rhinitis and other Physical Exam General Physical Exam Narrative: This is a well- developed morbidly obese 24-year-old white female who is awake alert oriented x3 and very anxious in the department. She additionally is moderately uncomfortable secondary to a chief complaint of abdominal pain and back pain, right sided in area of presentation General appearance: alert Head Head exam: Present atraumatic, normocephalic and normal inspection Eye Eye exam: Present normal apperance, PERRL and EOMI; Absent scleral icterus and conjunctival injection ENT ENT exam: Present normal exam and mucous membranes moist Neck Neck exam: Present normal inspection, full ROM and supple; Absent tenderness and meningismus Respiratory Respiratory exam: Present normal lung sounds bilaterally Cardiovascular Cardiovascular Exam: Present regular rate and normal rhythm GI/Abdominal GI/Abdominal exam: Present Abd soft, bowel sounds present all quadrents and tenderness (Patient has generalized abdominal tenderness. In fact with light pressure during palpation the patient became tearful and does have some mild involuntary guarding. Discomfort is poorly localized. There is no specific tenderness over anyone entity. Should be noted the patient's relatively large body habitus and increased amount of adipose tissue does make localization slightly more difficult.) Rectal Rectal exam: Present deferred Extremities Exam Extremities exam: Present normal inspection and Full ROM without tenderness, capillary refill brisk Back Exam Back exam: Present normal inspection, full ROM, tenderness and CVA tenderness (R); Absent CVA tenderness (L), muscle spasm, paraspinal tenderness and vertebral tenderness Neurological Exam Neurological exam: Present alert, oriented X3, CN II-XII intact and normal gait Psychiatric Psychiatric exam: Present normal affect and anxious Skin Skin exam: Present warm, dry, intact and normal color; Absent rash, cyanosis and diaphoretic Vital Signs Vital Signs: Vital Signs 03/02/20 11:34 Temperature 99.3 F Pulse Rate 81 Respiratory Rate 16 Blood Pressure 122/86 O2 Sat by Pulse Oximetry 98 MDM (comprehensive) Lab Data Labs: 03/02/20 12:00 03/02/20 12:00 Laboratory Results Last 24 hours 03/02/20 11:48: Urine Color Yellow, Urine Appearance Cloudy A, Urine pH 5.5, Ur Specific [employer] 1.025, Urine Protein Negative, Urine Ketones Negative, Urine Blood Trace H, Urine Nitrate Negative, Urine Bilirubin Negative, Urine Urobilinogen 1 eu/dl, Ur Leukocyte Esterase Trace A, Add Ur Microanalysis Microscopic added, Urine RBC Occasional, Urine WBC 3-5, Ur Squamous Epith Cells Many, Urine Bacteria Small amount H, Urine Glucose Negative 03/02/20 12:00: WBC 10.3, RBC 4.52, Hgb 12.1, Hct 36.9 L, MCV 81.6, MCH 26.8 L, MCHC 32.8 L, RDW 14, Plt Count 410, MPV 8.6 L, Immature Gran % (Auto) 0.3, Neut % (Auto) 65.4, Lymph % (Auto) 23.6, [place] % (Auto) 7.8, Eos % (Auto) 2.4, Baso % (Auto) 0.5, Lymph # (Auto) 2.4, Abs Immat Gran (auto) 0.0, Add Manual Diff No, Total Counted Cancelled, Neutrophils (Manual) Cancelled, Absolute Neutrophils 6.7, Band Neutrophils Cancelled, Lymphocytes (Manual) Cancelled, Monocytes (Manual) Cancelled, Monocytes # 0.8, Eosinophils (Manual) Cancelled, Absolute Eosinophils 0.3, Basophils (Manual) Cancelled, Absolute Basophils 0.1, Metamyelocytes Cancelled, Myelocytes Cancelled, Promyelocytes Cancelled, Nucleated RBCs Cancelled, Differential Comment Cancelled, Hypersegmented Neuts Cancelled, Atypical Lymphocytes Cancelled, Blast Cells Cancelled, Plasma Cells Cancelled, Smudge Cells Cancelled, Other Cell Type Cancelled, Toxic Granulation Cancelled, Dohle Bodies Cancelled, Jodie Rods Cancelled, Platelet Estimate Cancelled, RBC Morphology Cancelled, Polychromasia Cancelled, Hypochromasia Cancelled, Poikilocytosis Cancelled, Basophilic Stippling Cancelled, Anisocytosis Cancelled, Microcytosis Cancelled, Macrocytosis Cancelled, Spherocytes Cancelled, Sickle Cells Cancelled, Target Cells Cancelled, Tear Drop Cells Cancelled, Ovalocytes Cancel led, Stomatocytes Cancelled, Helmet Cells Cancelled, Fuller-Ecru Bodies Cancelled, Berkley Rings Cancelled, Sunil Cells Cancelled, Acanthocytes (Spur) Cancelled, Rouleaux Cancelled, Schistocytes Cancelled, Morphology Comment Cancelled 03/02/20 12:00: Sodium 139, Potassium 4.1, Chloride 111 H, Carbon Dioxide 20, Anion Gap 12, BUN 8 L, Creatinine 1.0, GFR Calculation Greater than 60, Glucose 91, Calcium 9.0, Total Bilirubin 0.4, AST 14, ALT 29, Alkaline Phosphatase 136 H, Serum Total Protein 7.9, Albumin 3.1 L 03/02/20 12:00: Urine HCG, Qual Negative Radiology Data Radiology results: report reviewed Radiology impressions: CT of the abdomen pelvis was negative for any acute disease per radiology. Medical Decision Making Free Text/Narative:: I discussed the findings with the patient. It would appear at this point time she has a urinary tract infection that probably did cause a little bit of renal irritation. At this point we will treat her with Macrobid and Phenergan for nausea vomiting and she will follow-up with her primary care provider on Wednesday or Wednesday. Discharge Plan Admission/Discharge Dx Primary DC Diagnosis: Urinary tract infection ED Provider: Florida Castro ED Status: Ready for Discharge Time Seen by Provider: 03/02/20 11:40 Triaged At: 03/02/20 11:34 Condition Condition: Good Discharge Detail Disposition: Home, Self-Care Med Rec New Prescriptions: New nitrofurantoin monohyd/m-cryst [Macrobid] 100 mg capsule 100 mg PO Q12HR 7 Days Qty: 14 RF: 0 promethazine 25 mg tablet 25 mg PO TID PRN (Reason: nausea and vomiting) Q ty: 9 RF: 0 Continued acetaminophen [Tylenol] 325 mg tablet 325 mg PO QID PRN (Reason: pain) Qty: 60 RF: 5 metoprolol succinate 50 mg capsule,sprinkle,ER 24hr 50 mg PO QDAY Qty: 90 RF: 0 buspirone 7.5 mg tablet 7.5 mg PO BID Qty: 60 RF: 2 desogestrel-ethinyl estradiol [Isibloom] 0.15-0.03 mg tablet 1 tab PO QDAY Qty: 28 RF: 2 venlafaxine 150 mg capsule,extended release 24hr 150 mg PO QAM Qty: 30 RF: 2 omeprazole 20 mg capsule,delayed release(DR/EC) 20 mg PO QDAY Qty: 30 RF: 2 Discharge Education Printouts: Urinary Tract Infection in Women (DC), Ab dominal Pain (ED) Follow Up Visit/Referrals: Zechariah Kramer DO [Primary Care Provider] - (Call for an appointment for follow-up for Wednesday or Wednesday) Discharge Problem: UTI (urinary tract infection), Abdominal pain Medications Medication reconciliation performed by provider at discharge: Yes Follow Up Care/Instructions Diet/Activity/Wound Care..: As we discussed your laboratory evaluation today as well as a CT scan of the abdomen and pelvis showno obvious dangerous causes for your abdominal pain. The urinalysis that you did obtain for us doesshow that you very likely have a urinary tract infection and that is most likely was causing you to have the nausea and abdominal discomfort that you are experiencing. At this point time we are goingto treat you with an antibiotic and an antinausea medicine. We strongly recommend that you follow-up with Dr. Bach on Wednesday or Wednesday. It is very important that you push clear liquids, that means10 to 12 glasses of any type of clear liquid a day to help flush your system. You should continue your other medications. If at any time your pain becomes unbearable you are always welcome to return to the ED for reevaluation and treatment on an emergency basis. *Discharge Patient* Discharge Orders: Discharge Order (Routine); Ordered 03/02/20 Ordered By: Florida Castro Interventions Interventions: ED GI Gastrointestinal Last Done: 03/02/20 11:36 Report Signers: <Electronically signed by [place] Castro > [place] John Roshan 03/02/20 1438 [place] Castro SIGNATURE DA Report Cosigners: D: PARLUIS CARLOS 03/02/20 1149 T: PARMA 03/02/20 1149 CC: Zechariah Kramer DO Name Value Range Interpretation Code Description Data Jessy rce(s) Supporting Document(s) ID Date Data Source [id number] 03/02/2020 12:26:00 PM EDT [facility] Reason for ordering culture: Abnormal fi ndings UA@03/02/20 1216: UA W/ MICRO added. RFLXG = UMIC CIF.Method of Collection:: Voided @03/02/20 1227: Urine culture added. RFL XG = CULT.ADD.Greater than 100,000 CFU/MLStaph spp, Strep spp, Corynebacterium sppProbable contaminants no senst done Reason for ordering culture: Abnormal fi ndings UA@03/02/20 1216: UA W/ MICRO added. RFLXG = UMIC CIF.Method of Collection:: Voided Name Value Range Interpretation Code Description Data Jessy rce(s) Supporting Document(s) Color of Urine [facility] Appearance of Urine CLEAR Abnormal (applies to non-nu meric results) [facility] pH of Urine by Test strip 5.5 5-8 [facility] Specific gravity of Urine by Refractometry 1.025 1.005-1.030 [facility] Leukocyte esterase [Presence] in Urine by Test strip NEGATIVE Abnormal (applies to non-numeric results) [facility] Culture has been added to this specimen per established criteria Nitrite [Presence] in Urine by Test strip NEGATIVE [facility] Protein [Presence] in Urine by Test strip NEGATIVE [facility] Glucose [Mass/volume] in Urine by Automated test strip NEGATIVE NEG ATIVE [facility] Ketones [Presence] in Urine by Test strip NEGATIVE [facility] Urobilinogen [Presence] in Urine 0.2-1 EU/dl [facility] Bilirubin.total [Presence] in Urine by Automated test strip NEGATIVE [facility] Erythrocytes [#/volume] in Urine by Test strip TRACE NEGATIV E Above high normal [facility] @DO MICRO!!!! URINE MICROSCOPIC? (CIF) Microscopic Added [facility] ID Date Data Source [id number] 03/03/2020 08:26:00 AM EDT [facility] Reason for ordering culture: Abnormal fi ndings UA@03/02/20 1216: UA W/ MICRO added. RFLXG = UMIC CIF.Method of Collection:: Voided @03/02/20 1227: Urine culture added. RFL XG = CULT.ADD.Greater than 100,000 CFU/MLStaph spp, Strep spp, Corynebacterium sppProbable contaminants no senst done Reason for ordering culture: Abnormal fi ndings UA@03/02/20 1216: UA W/ MICRO added. RFLXG = UMIC CIF.Method of Collection:: Voided Name Value Range Interpretation Code Description Data [facility] rce(s) Supporting Document(s) ID Date Data Source [id number] 03/02/2020 12:26:00 PM EDT [facility] Reason for ordering culture: Abnormal fi ndings UA@03/02/20 1216: UA W/ MICRO added. RFLXG = UMIC CIF.Method of Collection:: Voided @03/02/20 1227: Urine culture added. RFL XG = CULT.ADD.Greater than 100,000 CFU/MLStaph spp, Strep spp, Corynebacterium sppProbable contaminants no senst done Reason for ordering culture: Abnormal fi ndings UA@03/02/20 1216: UA W/ MICRO added. RFLXG = UMIC CIF.Method of Collection:: Voided Name Value Range Interpretation Code Description Data [facility] rce(s) Supporting Document(s) Erythrocytes [#/volume] in Urine by Manual count OCCASIONAL 0-5 [facility] Leukocytes [#/volume] in Urine by Manual count 3-5 /hpf 0-5 [facility] Cells [Type] in Urine sediment by Light microscopy [facility] Bacteria [Presence] in Urine sediment by Light microscopy NEGATIVE Above high normal [facility] ID Date Data Source [id number] 02/28/2020 09:48:00 AM EDT [facility] [address] [place] [address] [phone] NAME SEX PT STATUS ACCOUNT NUMBER STEPHANIE BELTRAN REG REF [id number] ORDERING PHYSICIAN LOCATION MEDICAL RECORD NO. Zechariah Kramer DO [id number] ATTENDING PHYSICIAN DATE OF DATE OF EXAM/TIME Zechariah Kramer DO 1995 02/28/20826 TYPE / EXAM [...] and is normal in echotexture. There are norenal cysts, masses, or shadowing calculi. There is [...] Chen MD on 02/28/2052 Date Time CC: Zechariah Kramer DO; Oliverio Chen MD Techn: BUSMI Trans Dt/Tm: Trans by: DT Prt Dt/Tm: : Total DLP = 0.00 mGy-cm : Total Radiation Dose = 0.0000 mSv Lifetime Dose: 0 mSv Name Value Range Interpretation Code Description Data Jessy rce(s) Supporting Document(s) ID Date Data Source [id number] 02/28/2020 09:32:00 AM EDT [facility] Name Value Range Interpretation Code Description Data Jessy rce(s) Supporting Document(s) Urine Random Creatinine 234.0 mg/dL [facility] THERE IS NO ESTABLISHED RANGE FOR RANDOM URINE CREATININE Urine Microalbumin 13.7 mg/L 0.0-29.9 [facility] Ur Malb/Cre Ratio (ACR) 5.8 ug/mg 0.0-30.[address] [facility] ID Date Data Source [id number] 02/26/2020 11:06:00 AM [facility] Name Value Range Interpretation Code Description Data Jessy rce(s) Supporting Document(s) Leukocytes [#/volume] in Blood by Automated count 9.8 10*3/uL 4.45-[address] [facility] Erythrocytes [#/volume] in Blood by Automated count 4.84 10*6/uL 4.20 -5.[address] [facility] Hemoglobin [Moles/volume] in Blood 13.0 g/dL 10.7-15.[address] [facility] Hematocrit [Volume Fraction] of Blood by Automated count 39.4 % 3 7-[address] [facility] Erythrocyte mean corpuscular volume [Ent itic volume] in Cord blood by Automated count 81.4 fL 80-96 N [facility] ital Erythrocyte mean corpuscular hemoglobin [Entitic mass] by Automated count 26.9 pg 27-31 Below low normal [facility] pital Erythrocyte mean corpuscular hemoglobin concentration [Mass/volume] in Cord blood 33.0 g/dL 33-37 N [facility] ital Erythrocyte distribution width [Entitic volume] by Automated count 14 % 11-15 N [facility] Platelets [#/volume] in Blood by Automated count 436 10*3/uL 130-472 N [facility] Platelet mean volume [Entitic volume] in Blood 8.7 fL 9.1-13. 1 Below low normal [facility] Neutrophils/100 leukocytes in Blood by Automated count 62.6 % 41- 77 N [facility] Neutrophils [#/volume] in Blood by Automated count 6.1 U 1.7-7.6 N [facility] Lymphocytes/100 leukocytes in Blood by Automated count 25.4 % 14- 46 N [facility] Lymphocytes [#/volume] in Blood by Automated count 2.5 U 0.6-4.6 N [facility] Monocytes/100 leukocytes in Blood by Automated count 8.2 % 4-12 N [facility] Monocytes [#/volume] in Blood by Automated count 0.8 U 0.2-1.2 N [facility] Eosinophils/100 leukocytes in Blood by Automated count 3.1 % 0-7 N [facility] Eosinophils [#/volume] in Blood by Automated count 0.3 U 0.0-0.5 N [facility] Basophils/100 leukocytes in Blood by Automated count 0.4 % 0.4-1 .3 N [facility] Basophils [#/volume] in Blood by Automated count 0.0 U 0.0-0.2 N [facility] NUCLEATED RED BLOOD CELL 0 % [facility] NUCLEATED RED BLOOD CELL# 0 U [facility] Immature granulocytes [Presence] in Blood by Automated count 0-2 N [facility] Immature granulocytes [#/volume] in Blood by Automated count 0.0 U 0-0.1 N [facility] Manual Differential panel - Blood NO [facility] ID Date Data Source [id number] 02/26/2020 11:33:00 AM EDT [facility] Name Value Range Interpretation Code Description Data Jessy rce(s) Supporting Document(s) Hemoglobin A1c % 5.3 % 4.0-6.[address] [facility] The following ranges may be u sed for interpretation of results: HGBA1C degree of glucose control: Greater than 8%: Action Suggested * Less than 7%: Goal of Diabetic Therapy Less than 6%: NormalFactors such as duration of diabetes, adherence to therapyand the age of the patient should also be considered inassessing the degree of blood glucose control.* High risk of developing medical terminologist complications such asretinopathy, nephropathy, neuropathy, cardiopathy, etc. Some danger of hypoglycemic reaction in Type I diabetics.Some glucose intolerant individuals and "Sub Clinical"diabetics may demonstrate HGBA1C levels in this area. Glucose mean value [Moles/volume] in Blood Estimated f rom glycated hemoglobin 105 mg/dL [facility] An A1C of 7% - the goal of diabetic ther apy - is equivalentto an EAG of 154 mg/dl. ID Date Data Source [id number] 02/26/2020 11:57:00 AM EDT [facility] Name Value Range Interpretation Code Description Data Jessy rce(s) Supporting Document(s) Urea nitrogen [Mass/volume] in Serum or Plasma 7 mg/dL 9-23 Below low normal [facility] Sodium [Moles/volume] in Serum or Plasma 138 mmol/L 132-[address] [facility] Potassium [Moles/volume] in Serum or Plasma 4.1 mmol/L 3.5-5.[address] [facility] Chloride [Moles/volume] in Serum or Plasma 107 mmol/L 99-[address] [facility] Carbon dioxide, total [Moles/volume] in Serum or Plasma 22 mmol/L 20 -[address] [facility] Anion gap in Serum or Plasma 13 mmol/L 8-16 N [facility] Glucose [Mass/volume] in Serum or Plasma 92 mg/dL 74-[address] [facility] Creatinine 1.0 mg/dL 0.5-1.1 [facility] Glomerular filtration rate/1.73 sq M.pre dicted [Volume Rate/Area] in Serum or Plasma Greater Than 60 ABOVE 60 [facility] Alanine aminotransferase [Enzymatic acti vity/volume] in Serum or Plasma by With P-5'-P 33 U/L 10-49 N [facility] Aspartate aminotransferase [Enzymatic ac tivity/volume] in Serum or Plasma by With P-5'-P 17 U/L 0-33 N [facility] pital Alkaline phosphatase [Enzymatic activity/volume] in Serum or Plasma 147 U/L 45-129 Above high normal [facility] Calcium [Mass/volume] in Serum or Plasma 9.0 mg/dL 8.5-10.[address] [facility] Bilirubin.total [Mass/volume] in Serum or Plasma 0.3 mg/dL 0.3-1.[address] [facility] Albumin [Mass/volume] in Serum or Plasma by Bromocresol purple (BCP) dye binding method 3.4 g/dL 3.2-4.8 [facility] Protein [Mass/volume] in Serum or Plasma 7.6 g/dL 5.7-8.[address] [facility] ID Date Data Source [id number] 02/26/2020 11:57:00 AM [facility] Name Value Range Interpretation Code Description Data Jessy rce(s) Supporting Document(s) Thyrotropin [Units/volume] in Serum or Plasma by Detec tion limit <= 0.005 mIU/L 1.84 u[iU]/mL 0.35-5.50 [facility] al ID Date Data Source [id number] 02/20/2020 11:43:00 AM [facility] Patient Name: STEPHANIE BELTRAN : 1995 Sex: F Pt Unit #: [id number] Location:[facility] Provider: Visit Date/Time: 02/20/20 Primary Insurance: MEDICAID [facility] Secondary Insurance: Self Pay Intake Vital Signs 02/20/20 11:44 Current Height 5 ft 5 in Current Weight 266 lb 4 oz Weight Measurement Method Standing Scale BMI 44.3 BP 110/84 Blood Pressure Location Lt brachial Position Sitting Respiration 16 Pulse 88 Pulse Oximetry (%) 97 Intake Visit Reasons: Encounter to Establish Care Nurse Note: 24 year old female here to get established. Is c/o headache, abdominal cramping with small amount of vaginal bleeding noted. She is very tired. Had lab work done this am with [facility] for . She would like a blood test to check for .Is originally from [place]. Moved here 2 weeks ago to live with her boyfriend. Has a 1 year old daughter who lives with her father. Will be going to Mental Health in [place] February. Cannot leave at this time. Chief Learning Officer Required: No Accompanied by: Self / Same as Patient Is patient in pain?: Yes (stomach) Pain scale (1-10): 3 Allergies cephalexin [From Keflex] Allergy (Intermediate, Verified 02/20/20 12:27) Hives latex Allergy (Intermediate, Verified 02/20/20 12:27) Rash ondansetron [From Zofran] Allergy (Intermediate, Verified 02/20/20 12:27) Hives sulfamethoxazole [From Bactrim] Allergy (Intermediate, Verified 02/20/20 12:27) Hives trimethoprim [From Bactrim] Allergy (Intermediate, Verified 02/20/20 12:27) Hives Is last menstrual period known: Yes Last menstrual period: 01/27/20 Fall Risk History of falls: No Ambulatory Aid:: None Gait/Transferring:: Normal Medications:: Antihypertensives PHQ-2/9 Over the last 2 weeks, how often have you been bothered by any of the following problems? 1. Little interest or pleasure in doing things: not at all 2. Feeling down, depressed, or hopeless: not at all Total score: 0 3. Trouble falling or staying asleep, or sleeping too much: nearly every day 4. Feeling tired or having little energy: nearly every day 5. Poor appetite or overeating: nearly every day 6. Feeling bad about yourself - or that you are a failure or have let yourself and your family down:not at all 7. Trouble concentrating on things, such as reading the newspaper or watching television: not at all 8. Moving or speaking so slowly that other people could have noticed? - Or the opposite - being so fidgety or restless that you have been moving around a lot more than usual: not at all 9. Thoughts that you would be better off or of hurting yourself in some way: not at all Total score: 9 If you checked off any problems, how difficult have these problems made it for you to do your work, take care of things at home, or get along with other people?: somewhat difficult Source: Developed by Drs. Chanel Ibarra, Maria De Jesus BAngel Morfin and colleagues, with an educational chapo from [employer]. HIV Testing Offer - ages 13-64 HIV testing Offer: Yes Requirement for HIV testing offer been met?: Patient reports past refusal SBIRT Annual Questionnaire Are you currently in recovery for alcohol or substance use?: No How many times in the past year have you used a recreational drug or used a prescription medication for nonmedical reasons?: None Do you need a note to return Do you need a note to return to daycare/school/sports/work: No PFSH Medical History (Updated 02/20/20 @ 13:18 by Zechariah Kramer DO) Anxiety (Chronic) Depression (Chronic) GERD (gastroesophageal reflux disease) (Chronic) Hepatomegaly (Chronic) HTN (hypertension) (Chronic) Morbid obesity (Chronic) Otitis media (Acute) PTSD (post-traumatic stress disorder) (Chronic) Ruptured tympanic membrane (Acute) UTI (urinary tract infection) (Acute) Surgical History (Updated 02/20/20 @ 12:15 by Zechariah Kramer DO) deliv NOS-unsp (Acute) Encounter for cholecystectomy (Acute) History of placement of ear tubes (Acute) Family History (Updated 02/20/20 @ 12:14 by Zechariah Kramer DO) Grandmother Stroke Father Hernia Social History Does the Patient have a Healthcare Proxy: No Does Patient have a DNR?: No Does Patient have a Living Will?: No Female Reproductive History Menstrual Date of last menstrual period: 01/27/20 HPI Additional HPI HPI Details: 24 y/o [place] and now in [facility] with boyfriend. she has daughter with her exboyfriend in [place] she will f/u mental health in february 2020 she denies homicide ideation denies suicide ideation wants labs done wants to see dietitian for weight loss wants to have sonogram for enlarged liver has chronic headaches and relieved by tylenol prn she denies other complaints Review of Systems Const Denies body aches, Denies chills and Reports headache(s) Eyes Denies requires corrective lenses ENT Denies abnormal hearing and Reports headache(s) Card Denies chest pain and Denies dyspnea Resp Denies dyspnea GI Denies abdominal pain, Reports heartburn and Reports nausea Genitourinary: Denies abnormal menses Musc Denies abnormal gait Skin/Breast Denies lesions Neuro Denies abnormal hearing, Denies abnormal gait and Reports headache(s) Psych Reports anxiety, Reports depression, Denies homicidal ideation and Denies suicidal ideation Endo Denies change in body appearance Rasta/Lymph Denies easy bleeding and Denies easy bruising Aller/Immun Denies GI upset with certain foods Exam Const General: cooperative, comfortable and no acute distress Nutritional Appearance: obese Orientation: alert and awake HENAL Head: normocephalic and atraumatic Ears: hearing grossly normal bilaterally General nose exam: external nose normal Mouth: oral mucosae normal and lip normal Teeth and gingiva: dentition normal and gingiva normal Eyes General: appearance normal, both eyes and all related structures EOM: EOM intact bilaterally Neck Neck: normal visual inspection and supple Neck mass: No Thyroid: thyroid normal Resp Effort Inspection: normal respiratory effort Auscultation: clear to auscultation bilaterally Cardio Jugular venous pressure: no JVD Palpation: normal PMI Rate: regular rate Rhythm: regular rhythm Heart Sounds: S1 normal and S2 normal Bruits: no carotid bruits GI Inspection: Yes obesity Palpation: soft Auscultation: normal bowel sounds General: deferred Musc Cervical Spine: normal cervical lordosis and cervical ROM normal Thoracic/Lumbar Spine: thoracic and lumbar spine normal to inspection and thoraco-lumbar ROM normal Neuro General: patient alert, patient awake and patient oriented x3 Cranial Nerves: CN's II- XII intact bilaterally Cognition: normal cognition Speech: speech normal Gait: normal gait Motor: muscle tone normal throughout and strength 5/5 throughout Extrem General: normal to inspection, full ROM and normal gait Psych Appearance: grossly normal Mental Status: mental status grossly normal Speech and Movement: speech and movement normal Mood: congruent mood Affect: normal affect Attitude: cooperative Thought Process: normal Thought Content: normal Insight: insight good Judgment: judgment good Quality Reporting Depression/Bipolar (159/160/161/169/177) Total score: 9 Assessment Plan Assessment Plan (1) Encounter to establish care with new doctor: Code(s): Z76.89 - Persons encountering health services in other specified circumstances Plan - Zechariah Kramer DO: reviewed medical history reviewed surgical history reviewed medications and also allergies reviewed family history and social history (2) PTSD (post-traumatic stress disorder): Status: Chronic Code(s): F43.10 - Post-traumatic stress disorder, unspecified SNOMED Code(s): 26003161 Category: Medical Joshua Kramer DO: f/u mental health continue current medications if condition worsens then go to ER Orders: Referrals: Mental Health Referral (3) Anxiety: Status: Chronic Code(s): F41.9 - Anxiety disorder, unspecified SNOMED Code(s): 77254094 Category: Guera Kramer DO: stable f/u mental health if condition worsens then go to ER tsh as ordered Orders: Orders: HGBA1C + EAG Today CMP Today TSH Today CBC W AUTO DIFF Today Referrals: Mental Health Referral (4) Depression: Status: Chronic Code(s): F32.9 - Major depressive disorder, single episode, unspecified SNOMED Code(s): 65333229 Category: Medical Joshua Kramer DO: f/u mental health if condition worsens then go to ER Orders: Referrals: Mental Health Referral (5) Hepatomegaly: Status: Chronic Code(s): R16.0 - Hepatomegaly, not elsewhere classified SNOMED Code(s): 53762148 Category: Guera Kramer DO: abdominal sonogram cmp as ordered Orders: Orders: HGBA1C + EAG Today CMP Today TSH Today CBC W AUTO DIFF Today US Abdomen complete Today (6) Morbid obesity: Status: Chronic Code(s): E66.01 - Morbid (severe) obesity due to excess calories SNOMED Code(s): 259085404 Category: Guera Kramer DO: lifestyle modifications f/u dietitian a1c is ordered tsh as ordered Orders: Orders: HGBA1C + EAG Today CMP Today TSH Today CBC W AUTO DIFF Today Referrals: Dietitian Referral (7) HTN (hypertension): Status: Chronic Code(s): I10 - Essential (primary) hypertension SNOMED Code(s): 62044309 Category: Guera Kramer DO: stable continue current medical treatment Orders: Orders: CMP Today TSH Today CBC W AUTO DIFF Today Referrals: Dietitian Referral (8) GERD (gastroesophageal reflux disease): Status: Chronic Code(s): K21.9 - Gastro-esophageal reflux disease without esophagitis SNOMED Code(s): 645355159 Category: Guera Kramer DO: stable refill famotidine Orders Other Medications: New: acetaminophen (Tylenol) 325 mg PO QID PRN 60 tabs 5RF pain famotidine 20 mg PO BID 90 tabs 0RF metoprolol succinate ER 50 mg PO QDAY 90 ea 0RF Instructions: DASH Eating Plan (GEN) Hypertension (GEN) Electronically Signed By: <Electronically signed by Zechariah Kramer DO> Date/Time Signed: 02/20/20 1319 Name Value Range Interpretation Code Description Data Jessy rce(s) Supporting Document(s) ID Date Data Source [id number] 02/20/2020 10:12:00 AM EDT [facility] @02/20/20 1001: UA W/ MICRO added. RFLXG = UMIC.Method of Collection:: Voided @02/20/20 1001: UA W/ MICRO added. RFLXG = UMIC.Method of Collection:: Voided @ DID THE CONTROL BAND APPEAR? YES@ DID THE BACKGROUND CLEAR? YES Name Value Range Interpretation Code Description Data Jessy rce(s) Supporting Document(s) Color of Urine [facility] Appearance of Urine CLEAR Abnormal (applies to non-nu meric results) [facility] pH of Urine by Test strip 5.5 5-8 [facility] Specific gravity of Urine by Refractometry 1.023 1.005-1.030 [facility] Leukocyte esterase [Presence] in Urine by Test strip NEGATIVE Above high normal [facility] @DO MICRO!!!! Nitrite [Presence] in Urine by Test strip NEGATIVE [facility] Protein [Presence] in Urine by Test strip NEGATIVE Above high normal [facility] @DO MICRO!!!! Glucose [Mass/volume] in Urine by Automated test strip NEGATIVE NEG ATIVE [facility] Ketones [Presence] in Urine by Test strip NEGATI VE Abnormal (applies to non- numeric results) [facility] Urobilinogen [Presence] in Urine 0.2-1 EU/dl [facility] Bilirubin.total [Presence] in Urine by Automated test strip NEGATIVE [facility] Erythrocytes [#/volume] in Urine by Test strip LARGE NEGATIV E Above high normal [facility] @DO MICRO!!!! URINE MICROSCOPIC ADDED Microscopic Added [facility] ID Date Data Source [id number] 02/20/2020 10:12:00 AM EDT [facility] @02/20/20 1001: UA W/ MICRO added. RFLXG = UMIC.Method of Collection:: Voided @02/20/20 1001: UA W/ MICRO added. RFLXG = UMIC.Method of Collection:: Voided @ DID THE CONTROL BAND APPEAR? YES@ DID THE BACKGROUND CLEAR? YES Name Value Range Interpretation Code Description Data Jessy rce(s) Supporting Document(s) Leukocytes [#/volume] in Urine by Manual count 20-30 /hpf 0-5 Above high normal [facility] Cells [Type] in Urine sediment by Light microscopy [facility] Bacteria [Presence] in Urine sediment by Light microscopy NEGATIVE Above high normal [facility] Spermatozoa [#/area] in Urine sediment by Microscopy high power field FEW [facility] ID Date Data Source [id number] 02/20/2020 09:59:00 AM EDT [facility] @02/20/20 1001: UA W/ MICRO added. RFLXG = UMIC.Method of Collection:: Voided @02/20/20 1001: UA W/ MICRO added. RFLXG = UMIC.Method of Collection:: Voided @ DID THE CONTROL BAND APPEAR? YES@ DID THE BACKGROUND CLEAR? YES Name Value Range Interpretation Code Description Data Jessy rce(s) Supporting Document(s) Leukocytes [#/volume] in Blood by Automated count 8.8 10*3/uL 4.45-10 .71 N [facility] Erythrocytes [#/volume] in Blood by Automated count 5.02 10*6/uL 4.20 -5.40 N [facility] Hemoglobin [Moles/volume] in Blood 13.4 g/dL 10.7-15.4 N [facility] Hematocrit [Volume Fraction] of Blood by Automated count 41.0 % 3 7-47 N [facility] Erythrocyte mean corpuscular volume [Ent itic volume] in Cord blood by Automated count 81.7 fL 80-96 N [facility] ital Erythrocyte mean corpuscular hemoglobin [Entitic mass] by Automated count 26.7 pg 27-31 Below low normal [facility] pital Erythrocyte mean corpuscular hemoglobin concentration [Mass/volume] in Cord blood 32.7 g/dL 33-37 Below low normal [facility] Erythrocyte distribution width [Entitic volume] by Automated count 15 % 11-15 N [facility] Platelets [#/volume] in Blood by Automated count 479 10*3/uL 130-472 Above high normal [facility] Platelet mean volume [Entitic volume] in Blood 8.7 fL 9.1-13. 1 Below low normal [facility] Neutrophils/100 leukocytes in Blood by Automated count 62.4 % 41- 77 N [facility] Neutrophils [#/volume] in Blood by Automated count 5.5 U 1.7-7.6 N [facility] Lymphocytes/100 leukocytes in Blood by Automated count 26.5 % 14- 46 N [facility] Lymphocytes [#/volume] in Blood by Automated count 2.3 U 0.6-4.6 N [facility] Monocytes/100 leukocytes in Blood by Automated count 8.0 % 4-12 N [facility] Monocytes [#/volume] in Blood by Automated count 0.7 U 0.2-1.2 N [facility] Eosinophils/100 leukocytes in Blood by Automated count 2.6 % 0-7 N [facility] Eosinophils [#/volume] in Blood by Automated count 0.2 U 0.0-0.5 N [facility] Basophils/100 leukocytes in Blood by Automated count 0.3 % 0.4-1.3 Below low normal [facility] Basophils [#/volume] in Blood by Automated count 0.0 U 0.0-0.2 N [facility] NUCLEATED RED BLOOD CELL 0 % [facility] NUCLEATED RED BLOOD CELL# 0 U [facility] Immature granulocytes [Presence] in Blood by Automated count 0-2 N [facility] Immature granulocytes [#/volume] in Blood by Automated count 0.0 U 0-0.1 N [facility] Manual Differential panel - Blood NO [facility] ID Date Data Source [id number] 02/20/2020 10:32:00 AM EDT [facility] @02/20/20 1001: UA W/ MICRO added. RFLXG = UMIC.Method of Collection:: Voided @02/20/20 1001: UA W/ MICRO added. RFLXG = UMIC.Method of Collection:: Voided @ DID THE CONTROL BAND APPEAR? YES@ DID THE BACKGROUND CLEAR? YES Name Value Range Interpretation Code Description Data Jessy rce(s) Supporting Document(s) Urea nitrogen [Mass/volume] in Serum or Plasma 6 mg/dL 9-23 Below low normal [facility] Sodium [Moles/volume] in Serum or Plasma 138 mmol/L 132-[address] [facility] Potassium [Moles/volume] in Serum or Plasma 4.1 mmol/L 3.5-5.[address] [facility] Chloride [Moles/volume] in Serum or Plasma 108 mmol/L 99-109 N [facility] Carbon dioxide, total [Moles/volume] in Serum or Plasma 21 mmol/L 20 -31 N [facility] Anion gap in Serum or Plasma 13 mmol/L 8-16 N [facility] Glucose [Mass/volume] in Serum or Plasma 98 mg/dL 74-106 N [facility] Creatinine 1.1 mg/dL 0.5-1.1 [facility] Glomerular filtration rate/1.73 sq M.pre dicted [Volume Rate/Area] in Serum or Plasma Greater Than 60 ABOVE 60 [facility] Alanine aminotransferase [Enzymatic acti vity/volume] in Serum or Plasma by With P-5'-P 42 U/L 10-49 [facility] ital Aspartate aminotransferase [Enzymatic ac tivity/volume] in Serum or Plasma by With P-5'-P 23 U/L 0-33 [facility] pital Alkaline phosphatase [Enzymatic activity/volume] in Serum or Plasma 149 U/L 45-129 Above high normal [facility] Calcium [Mass/volume] in Serum or Plasma 9.4 mg/dL 8.5-10.[address] [facility] Bilirubin.total [Mass/volume] in Serum or Plasma 0.3 mg/dL 0.3-1.[address] [facility] Albumin [Mass/volume] in Serum or Plasma by Bromocresol purple (BCP) dye binding method 3.5 g/dL 3.2-4.8 [facility] ital Protein [Mass/volume] in Serum or Plasma 7.9 g/dL 5.7-8.[address] [facility] ID Date Data Source [id number] 02/20/2020 09:53:00 AM EDT [facility] @02/20/20 1001: UA W/ MICRO added. RFLXG = UMIC.Method of Collection:: Voided @02/20/20 1001: UA W/ MICRO added. RFLXG = UMIC.Method of Collection:: Voided @ DID THE CONTROL BAND APPEAR? YES@ DID THE BACKGROUND CLEAR? YES Name Value Range Interpretation Code Description Data Jessy rce(s) Supporting Document(s) Choriogonadotropin [Moles/volume] in Urine NEGATIVE NEGATIVE [facility] @[facility] manual test result: NEGATIVE@by Lashaun Ramirez at 02/20/20 0953. Procedure Social History Code Duration Value Status Description Data Source(s ) 09/24/2020 09:44:00 AM EST No completed [facility] 09/24/2020 09:44:00 AM EST Never smoker completed Never [facility] Smoking 09/24/2020 09:44:00 AM EST Never smoker completed Never [facility] 09/24/2020 09:44:00 AM EST No completed [facility] 09/24/2020 09:44:00 AM EST Never smoker completed Never [facility] Smoking 09/24/2020 09:44:00 AM EST Never smoker completed Never [facility] 09/24/2020 09:44:00 AM EST No completed [facility] 09/24/2020 09:44:00 AM EST Never smoker completed Never [facility] Smoking 09/24/2020 09:44:00 AM EST Never smoker completed Never [facility] 09/23/2020 08:06:53 PM EST No completed [facility] 09/23/2020 08:06:53 PM EST Never smoker completed Never [facility] Smoking 09/23/2020 08:06:00 PM EST Never smoker completed Never [facility] 09/09/2020 11:06:00 PM EST Never smoker completed Never [facility] Smoking 09/09/2020 11:06:00 PM EST Never smoker completed [facility] [facility] 11:06:00 PM EST Never smoker completed Never [facility] Smoking 09/09/2020 11:06:00 PM EST Never smoker completed Never [facility] 09/09/2020 11:00:11 PM EST No completed [facility] 09/09/2020 11:00:11 PM EST No completed No [facility] 09/02/2020 09:57:00 AM EST Never smoker completed Never [facility] Smoking 09/02/2020 09:57:00 AM EST Never smoker completed Never [facility] 09/02/2020 09:57:00 AM EST No completed No [facility] 09/02/2020 09:57:00 AM EST Never smoker completed Never [facility] Smoking 09/02/2020 09:57:00 AM EST Never smoker completed Never [facility] 09/02/2020 09:57:00 AM EST No completed No [facility] 09/02/2020 09:57:00 AM EST Never smoker completed Never [facility] Smoking 09/02/2020 09:57:00 AM EST Never smoker completed Never [facility] 09/02/2020 09:57:00 AM EST No completed No [facility] 08/30/2020 08:57:01 PM EST No completed [facility] 08/30/2020 08:57:01 PM EST Never smoker completed Never [facility] Smoking 08/30/2020 08:57:00 PM EST Never smoker completed Never [facility] 08/22/2020 08:59:55 AM EST Never smoker completed Never [facility] 08/22/2020 08:59:55 AM EST Never smoker completed Never [facility] Smoking 08/22/2020 08:59:00 AM EST Never smoker completed Never [facility] Smoking 08/22/2020 08:59:00 AM EST Never smoker completed Never [facility] 08/22/2020 06:50:00 AM EST No completed No [facility] 08/22/2020 06:50:00 AM EST No completed No [facility] 08/14/2020 11:38:00 AM EST Never smoker completed Never [facility] Smoking 08/14/2020 11:38:00 AM EST Never smoker completed [facility] 08/09/2020 07:30:39 PM EST Never smoker completed Never [facility] 08/09/2020 07:30:39 PM EST Never smoker completed Never [facility] 08/09/2020 07:30:39 PM EST Never smoker completed Never [facility] Smoking 08/09/2020 07:30:00 PM EST Never smoker completed Never [facility] Smoking 08/09/2020 07:30:00 PM EST Never smoker completed Never [facility] Smoking 08/09/2020 07:30:00 PM EST Never smoker completed Never [facility] 08/03/2020 06:14:58 PM EST Never smoker completed Never [facility] Smoking 08/03/2020 06:14:00 PM EST Never smoker completed Never [facility] 07/17/2020 12:04:00 PM EST Never smoker completed Never [facility] Smoking 07/17/2020 12:04:00 PM EST Never smoker completed Never [facility] 07/01/2020 09:34:34 PM EST Never smoker completed Never [facility] 07/01/2020 09:34:34 PM EST Never smoker completed Never [facility] Smoking 07/01/2020 09:34:00 PM EST Never smoker completed Never [facility] Smoking 07/01/2020 09:34:00 PM EST Never smoker completed Never [facility] Smoking 05/23/2020 10:32:00 AM EDT Never smoker completed Never [facility] Smoking 05/23/2020 10:32:00 AM EDT Never smoker completed Never [facility] 05/23/2020 09:32:00 AM EDT Never smoker completed Never [facility] 05/23/2020 09:32:00 AM EDT Never smoker completed Never [facility] 05/23/2020 09:32:00 AM EDT Never smoker completed Never [facility] Smoking 05/23/2020 09:32:00 AM EDT Never smoker completed Never [facility] 05/23/2020 09:32:00 AM EDT Never smoker completed Never [facility] Smoking 05/23/2020 09:32:00 AM EDT Never smoker completed Never [facility] 05/23/2020 09:32:00 AM EDT Never smoker completed Never [facility] Smoking 05/23/2020 09:32:00 AM EDT Never smoker completed Never [facility] 05/18/2020 03:02:33 PM EDT Never smoker completed Never [facility] Smoking 05/18/2020 03:02:00 PM EDT Never smoker completed Never [facility] 05/17/2020 08:21:12 PM EDT Never smoker completed Never [facility] Smoking 05/17/2020 08:21:00 PM EDT Never smoker completed Never [facility] Smoking 04/18/2020 12:00:00 AM EDT Non Smoker completed Non Smoke r [facility] ([facility] ) Smoking 03/25/2020 09:10:00 AM EDT Never smoker completed Never [facility] 03/25/2020 09:10:00 AM EDT Never smoker completed Never [facility] Smoking 03/25/2020 09:10:00 AM EDT Never smoker completed Never [facility] 03/25/2020 09:10:00 AM EDT Never smoker completed Never [facility] Smoking 03/25/2020 09:10:00 AM EDT Never smoker completed Never [facility] 03/25/2020 09:10:00 AM EDT Never smoker completed Never [facility] Smoking 03/13/2020 11:16:00 AM EDT Never smoker completed Never [facility] 03/13/2020 11:16:00 AM EDT Never smoker completed Never [facility] 03/13/2020 11:16:00 AM EDT Never smoker completed Never [facility] 03/13/2020 11:16:00 AM EDT Never smoker completed Never [facility] 03/13/2020 11:16:00 AM EDT Never smoker completed Never [facility] 03/11/2020 12:08:35 PM EDT Never smoker completed Never [facility] 03/11/2020 12:08:35 PM EDT Never smoker completed Never [facility] 03/11/2020 12:08:35 PM EDT Never smoker completed Never [facility] 03/11/2020 12:08:35 PM EDT Never smoker completed Never [facility] 03/11/2020 12:08:35 PM EDT Never smoker completed Never [facility] 03/11/2020 12:08:35 PM EDT Never smoker completed Never [facility] Smoking 03/11/2020 12:08:00 PM EDT Never smoker completed Never [facility] Smoking 03/11/2020 12:08:00 PM EDT Never smoker completed Never [facility] 03/05/2020 05:17:27 PM EDT Never smoker completed Never [facility] 03/05/2020 05:17:27 PM EDT Never smoker completed Never [facility] 03/05/2020 05:17:27 PM EDT Never smoker completed Never [facility] 03/05/2020 05:17:27 PM EDT Never smoker completed Never [facility] 03/05/2020 05:17:27 PM EDT Never smoker completed Never [facility] 03/05/2020 05:17:27 PM EDT Never smoker completed Never [facility] 03/05/2020 05:17:27 PM EDT Never smoker completed Never [facility] 03/05/2020 05:17:27 PM EDT Never smoker completed Never [facility] Smoking 03/05/2020 05:17:00 PM EDT Never smoker completed Never [facility] Smoking 03/05/2020 05:17:00 PM EDT Never smoker completed Never [facility] 03/02/2020 11:36:00 AM EDT Never smoker completed Never [facility] Smoking 03/02/2020 11:36:00 AM EDT Never smoker completed Never [facility] 03/02/2020 11:36:00 AM EDT Never smoker completed Never [facility] 03/02/2020 11:36:00 AM EDT Never smoker completed Never [facility] 03/02/2020 11:36:00 AM EDT Never smoker completed Never [facility] 03/02/2020 11:36:00 AM EDT Never smoker completed Never [facility] 03/02/2020 11:36:00 AM EDT Never smoker completed Never [facility] 03/02/2020 11:36:00 AM EDT Never smoker completed Never [facility] 03/02/2020 11:36:00 AM EDT Never smoker completed Never [facility] 03/02/2020 11:36:00 AM EDT Never smoker completed Never [facility] Vital Signs ID Date Data Source UNK Name Value Range Interpretation Code Description Data Source(s) Systolic blood [facility] 128 mm[Hg] 128 [facility]Hg] [facility] Body surface area Derived from formula 2.25 m2 2.25 m2 [facility] ([facility]) Body weight 123.379 kg 123.379 kg [facility] ([facility]) [place] body weight 125 [lb_av] 125 [lb_av] [facility] ([facility]) Body mass index (BMI) [Ratio] 45.3 kg/m2 45.3 k g/m2 [facility] ([facility]) Body weight 272.00 [lb_av] 272.00 [lb_av] [facility] ([facility]) Body height 65 [in_i] 65 [in_i] [facility] ([facility]) 5'5" Diastolic blood pressure 76 mm[Hg] 76 mm[Hg] [facility] ([facility]) Body surface area Derived from formula 2.26 m2 2.26 m2 [facility] ([facility]) Body weight 124.060 kg 124.060 kg [facility] ([facility]) [place] body weight 125 [lb_av] 125 [lb_av] [facility] ([facility]) Body mass index (BMI) [Ratio] 45.5 kg/m2 45.5 k g/m2 [facility] ([facility]) Body weight 273.50 [lb_av] 273.50 [lb_av] [facility] ([facility]) Body height 65 [in_i] 65 [in_i] [facility] ([facility]) 5'5" Body temperature 96.7 [degF] 96.7 [degF] [facility] ([facility]) Oxygen saturation in Arterial blood by Pulse oximetry 97 % 97 % [facility] ([facility]) Heart rate 82 /min 82 /min [facility] ([facility]) Diastolic blood pressure 70 mm[Hg] 70 mm[Hg] [facility] ([facility]) Systolic blood pressure 118 mm[Hg] 118 mm[Hg] [facility] Body weight 122.472 kg 122.472 kg [facility] ([facility]) [place] body weight 125 [lb_av] 125 [facility]lb_av] [facility] Body mass index (BMI) [Ratio] 44.9 kg/m2 44.9 k g/m2 [facility] ([facility]) Body weight 270.00 [lb_av] 270.00 [lb_av] [facility] Body height 65 [in_i] 65 [in_i] [facility] ([facility]) 5'5"
--- NOTE | 2020-10-18 11:40 | ROOR ---
Patient Name: Stephanie Saleh Procedure Date: 10/18/2020 10:44 AM Date of : 1995 Age: 25 Room: [facility] Gender: Female Note Status: Finalized Procedure: Colonoscopy Indications: Change in bowel habits Providers: Aba Sprague MD Referring MD: Nicol Sebastian Requesting Provider: Medicines: Monitored Anesthesia Care Complications: No immediate complications. Procedure: Pre-Anesthesia Assessment: - Prior to the procedure, a History and Physical was performed, and patient medications and allergies were reviewed. The patient is competent. The risks and benefits of the procedure and the sedation options and risks were discussed with the patient. All questions were answered and informed consent was obtained. Patient identification and proposed procedure were verified by the physician, the nurse and the anesthesiologist in the procedure room. Mental Status Examination: alert and oriented. Airway Examination: normal oropharyngeal airway and neck mobility. Respiratory Examination: clear to auscultation. CV Examination: normal. Prophylactic Antibiotics: The patient does not require prophylactic antibiotics. Prior Anticoagulants: The patient has taken no previous anticoagulant or antiplatelet agents. ASA Grade Assessment: III - A patient with severe systemic disease. After reviewing the risks and benefits, the patient was deemed in satisfactory condition to undergo the procedure. The anesthesia plan was to use monitored anesthesia care (MAC). Immediately prior to administration of medications, the patient was re-assessed for adequacy to receive sedatives. The heart rate, respiratory rate, oxygen saturations, blood pressure, adequacy of pulmonary ventilation, and response to care were monitored throughout the procedure. The physical status of the patient was re-assessed after the procedure. The Colonoscope was introduced through the anus and advanced to the terminal ileum, with identification of the appendiceal orifice and IC valve. The colonoscopy was performed without difficulty. The patient tolerated the procedure well. The quality of the bowel preparation was good. The terminal ileum, ileocecal valve, appendiceal orifice, and rectum were photographed. Scope insertion time was 2 minutes. Scope withdrawal time was 9 minutes. The total duration of the procedure was 11 minutes. Findings: The perianal and digital rectal examinations were normal. The terminal ileum appeared normal. Normal mucosa was found in the entire colon. Biopsies for histology were taken with a cold forceps from the right colon, left colon and rectosigmoid colon for evaluation of microscopic colitis. Verification of patient identification for the specimen was done by the physician and nurse using the patient's name, date and medical record number. Estimated blood loss was minimal. The entire examined colon appeared normal on direct and retroflexion views. Non-bleeding external and internal hemorrhoids were found during retroflexion. The hemorrhoids were small. Impression: - The examined portion of the ileum was normal. - Normal mucosa in the entire examined colon. Biopsied. - The entire examined colon is normal on direct and retroflexion views. - Non-bleeding external and internal hemorrhoids. Recommendation: - Patient has a contact number available for emergencies. The signs and symptoms of potential delayed complications were discussed with the patient. Return to normal activities tomorrow. Written discharge instructions were provided to the patient. - High fiber diet. - Continue present medications. - Await pathology results. - Repeat colonoscopy at age 49 for screening purposes. - Telephone GI clinic for pathology results in 2 weeks. - Return to primary care physician. Procedure Code(s): --- Professional --- 32926, Colonoscopy, flexible; with biopsy, single or multiple Diagnosis Code(s): --- Professional --- K64.8, Other hemorrhoids R19.4, Change in bowel habit CPT copyright 2019 [employer]. All rights reserved. The codes documented in this report are preliminary and upon icd 9 coder review may be revised to meet current compliance requirements. Aba Sprague MD Aba Sprague MD 10/18/2020 11:39:38 AM Electronically signed by Aba Sprague MD Number of Addenda: 0 Note Initiated On: 10/18/2020 10:44 AM Estimated Blood Loss: Estimated blood loss was minimal.
[2020-10-18 11:41] VITALS: BP 135/83
== END 2020-10-18 11:43 | disposition home or self-care (01) ==
LOC: M OPP 09:30
PROVIDERS: ATTEND Internal Medicine Gastroenterology
DX: R19.4 Change in bowel habit (principal); R10.9 Unspecified abdominal pain; D12.6 Benign neoplasm of colon, unspecified; K64.8 Other hemorrhoids; I10 Essential (primary) hypertension; D50.9 Iron deficiency anemia, unspecified; F41.9 Anxiety disorder, unspecified; F32.9 Major depressive disorder, single episode, unspecified; G43.909 Migraine, unspecified, not intractable, without status migrainosus; F43.10 Post-traumatic stress disorder, unspecified; J45.909 Unspecified asthma, uncomplicated; K21.9 Gastro-esophageal reflux disease without esophagitis; Z88.1 Allergy status to other antibiotic agents; Z88.2 Allergy status to sulfonamides; Z88.8 Allergy status to other drugs, medicaments and biological substances; Z91.040 Latex allergy status; Z91.09 Other allergy status, other than to drugs and biological substances; Z79.899 Other long term (current) drug therapy

== ENCOUNTER → 2020-10-30 | Outpatient (REF) | payer OTHER ==
[~2020-10-30] MED LIST changes: -LIDOCAINE 2% 100MG/5ML SDV (FOR ANES.) As Ordered ONE; -NS 1,000 ML IV ONE; -propofoL 200 MG/20 ML VIAL As Ordered ONE
[2020-10-30 19:05] LABS: PERCENT SATURATION 15.9 % (13.2-45.0)
== END ==
LOC: M LAB REF 16:38
PROVIDERS: ATTEND Internal Medicine Nephrology
DX: D50.9 Iron deficiency anemia, unspecified (principal)

== ENCOUNTER → 2021-01-23 | Outpatient (CLI) | payer OTHER ==
[~2021-01-23] MED LIST changes: +ACET1TAB55 PO; +AMIT25TA17 PO; +LABE200T32 PO
== END ==
LOC: M LABSMTC 10:28
PROVIDERS: ATTEND Anesthesiology
DX: Z01.812 Encounter for preprocedural laboratory examination (principal); Z20.822 Contact with and (suspected) exposure to COVID-19

== ENCOUNTER 2021-01-28 12:01 | Day surgery (SDC) | payer OTHER ==
[~2021-01-28] VITALS: Ht 165.1 cm; Wt 135.1 kg
[~2021-01-28 12:01] MED LIST changes: +LR 1,000 ML IV ONE
[2021-01-28] MEDS ORDERED: dexameTHASONE 4 MG/ML 1ML VIAL (J1100 PER 1MG) As Ordered ONE ×2 (14:56→15:29)
[2021-01-28] MEDS ORDERED: LIDOCAINE 2% 100MG/5ML SDV (FOR ANES.) As Ordered ONE (14:56)
[2021-01-28] MEDS ORDERED: ONDANSETRON 4MG/2ML VIAL As Ordered ONE (14:56)
[2021-01-28] MEDS ORDERED: fentaNYL 100 MCG/2 ML INJECTION (J3010) As Ordered ONE (14:56)
[2021-01-28] MEDS ORDERED: MIDAZOLAM INJ 2MG/2ML VIAL (J2250 PER 1MG) As Ordered ONE (14:56)
[2021-01-28] MEDS ORDERED: propofoL 200 MG/20 ML VIAL As Ordered ONE (14:56)
[2021-01-28] MEDS ORDERED: ACETAMINOPHEN 500 MG TAB PO ONE (15:10)
[2021-01-28] MEDS ORDERED: LR 1,000 ML IV SCH (15:10)
[2021-01-28] MEDS ORDERED: MEPERIDINE INJ 25 MG/ML VIAL (J2175) IV PRN (15:10)
[2021-01-28] MEDS ORDERED: CIPRODEX OTIC SUSP 7.5ML As Ordered ONE (15:14)
[2021-01-28 16:45] VITALS: BP 133/93
--- NOTE | 2021-01-29 08:59 | RO ---
OPERATIVE NOTE DATE OF OPERATION: 01/28/2021 PREOPERATIVE DIAGNOSIS: Cerumen impaction. POSTOPERATIVE DIAGNOSIS: Cerumen impaction. PROCEDURE: Examination under anesthesia, removal of cerumen impaction under general anesthesia. SURGEON: Cole Chang MD PLANING MACHINE OPERATOR: ANESTHESIA: General. DESCRIPTION OF PROCEDURE: A speculum was placed in the left ear. Wax was cleaned. This was done using the microscope and suction. There was a posterior retraction pocket, which is mild, with no evidence of inflammation, infection or cholesteatoma. On the right side, there was scarring of the tympanic membrane after I removed the wax. Otherwise, everything was normal. the tympanic membrane was intact on both sides. The patient tolerated the procedure well and was extubated and transferred to the recovery room in excellent condition.
== END 2021-01-28 17:10 | disposition home or self-care (01) ==
LOC: M SDC 12:01
PROVIDERS: ATTEND Otolaryngology
DX: H61.23 Impacted cerumen, bilateral (principal); J45.909 Unspecified asthma, uncomplicated; K21.9 Gastro-esophageal reflux disease without esophagitis; K58.8 Other irritable bowel syndrome; I10 Essential (primary) hypertension; D64.9 Anemia, unspecified; G43.909 Migraine, unspecified, not intractable, without status migrainosus; Z88.1 Allergy status to other antibiotic agents; Z88.2 Allergy status to sulfonamides; Z91.040 Latex allergy status; F41.9 Anxiety disorder, unspecified; F32.9 Major depressive disorder, single episode, unspecified
CPT/HCPCS: 69210; 81025; J1100; J2250; J3010

== ENCOUNTER 2021-03-20 09:15 | Outpatient (RCR) | payer OTHER ==
[~2021-03-20 09:15] MED LIST changes: -LR 1,000 ML IV ONE; +OXYC1TAB23 PO
== END 2021-03-22 ==
LOC: M PT 09:15
PROVIDERS: ATTEND Physician Assistant Medical
DX: M26.601 Right temporomandibular joint disorder, unspecified (principal)

== ENCOUNTER → 2021-05-31 | Outpatient (CLI) | payer OTHER ==
[~2021-05-31] MED LIST changes: +ALBU83IN INH; +FAMO1TAB11 PO; +QUET1TAB17 PO; -QUET25TA3 PO; +SUCR1TAB56 PO; +[UNRECOGNIZED DRUG - CODE] PO
== END ==
LOC: M LABSMTC 10:42
PROVIDERS: ATTEND Anesthesiology
DX: Z01.812 Encounter for preprocedural laboratory examination (principal); Z20.822 Contact with and (suspected) exposure to COVID-19

== ENCOUNTER 2021-07-28 10:26 | Outpatient (RCR) | payer OTHER | END 2021-08-22 | LOC: M PT 10:26 | PROVIDERS: ATTEND Physician Assistant Medical | DX: M26.601 Right temporomandibular joint disorder, unspecified (principal) ==

== ENCOUNTER → 2021-11-20 | Outpatient (REF) | payer OTHER ==
[~2021-11-20] MED LIST changes: -DICY20TA11 PO; +DICY20TA20 PO; +LABE200T3 PO; -LABE200T32 PO; +LETR2.5T2 PO; -OMEP-221 PO; +OMEP40CA5 PO; +UNIS25TA3 PO
[2021-11-20 17:51] LABS: CREATININE, SERUM 1.1 MG/DL (0.6-1.0)
[2021-11-20 20:39] LABS: CREATININE CLEARANCE, URINE 53.1 ML/MIN (75-115)
== END ==
LOC: M LAB REF 17:12
PROVIDERS: ATTEND Internal Medicine Nephrology
DX: N18.2 Chronic kidney disease, stage 2 (mild) (principal)

== ENCOUNTER → 2021-11-24 | Outpatient (CLI) | payer OTHER | LOC: M LABSMTC 09:56 | PROVIDERS: ATTEND Anesthesiology | DX: Z01.812 Encounter for preprocedural laboratory examination (principal); Z20.822 Contact with and (suspected) exposure to COVID-19 ==

== ENCOUNTER 2021-11-28 11:51 | Day surgery (SDC) | payer OTHER ==
[~2021-11-28] VITALS: Ht 165.1 cm; Wt 133.7 kg
[~2021-11-28 11:51] MED LIST changes: +NS 1,000 ML IV ONE
[2021-11-28] MEDS ORDERED: fentaNYL 100 MCG/2 ML INJECTION As Ordered ONE (12:40)
[2021-11-28] MEDS ORDERED: MIDAZOLAM INJ 2MG/2ML VIAL (J2250 PER 1MG) As Ordered ONE (14:08)
[2021-11-28] MEDS ORDERED: CETACAINE SPRAY 5GM As Ordered ONE ×2 (14:10→14:14)
[2021-11-28] MEDS ORDERED: LIDOCAINE 2% 100MG/5ML SDV (FOR ANES.) As Ordered ONE (14:23)
[2021-11-28] MEDS ORDERED: propofoL 200 MG/20 ML VIAL As Ordered ONE (14:23)
[2021-11-28 15:00] VITALS: BP 142/84
== END 2021-11-28 15:05 | disposition home or self-care (01) ==
LOC: M OPP 11:51
PROVIDERS: ATTEND Internal Medicine Gastroenterology
DX: K21.00 Gastro-esophageal reflux disease with esophagitis, without bleeding (principal); K31.89 Other diseases of stomach and duodenum; R10.13 Epigastric pain; N18.9 Chronic kidney disease, unspecified; Z86.19 Personal history of other infectious and parasitic diseases; Z79.899 Other long term (current) drug therapy; Z88.1 Allergy status to other antibiotic agents; Z88.8 Allergy status to other drugs, medicaments and biological substances; Z91.040 Latex allergy status; Z91.048 Other nonmedicinal substance allergy status
CPT/HCPCS: 43239; 88305; J2250; J3010

== ENCOUNTER → 2021-12-11 | Outpatient (CLI) | payer OTHER ==
[~2021-12-11] MED LIST changes: -NS 1,000 ML IV ONE
[2021-12-11 17:41] LABS: BASO % 0.4 % (0.0-1.0); EOS # 0.2 10^3/uL (0.0-0.5); EOS % 1.9 % (0.0-3.0); HEMATOCRIT 38.9 % (36.0-47.0); HEMOGLOBIN 12.6 g/dl (12.0-15.5); LYMPH # 2.3 10^3/uL (1.5-5.0); LYMPH % 22.4 % (24.0-44.0); MEAN CORPUSCULAR HEMOGLOBIN 26.1 pg (27.0-33.0); MEAN CORPUSCULAR HGB CONC 32.4 g/dl (32.0-36.5); MEAN CORPUSCULAR VOLUME 80.7 fl (80.0-96.0); MONO # 0.7 10^3/uL (0.0-0.8); MONO % 7.3 % (2.0-8.0); NEUTROPHILS # 6.8 10^3/uL (1.5-8.5); NEUTROPHILS % 67.6 % (36.0-66.0); PLATELET COUNT, AUTOMATED 472 10^3/uL (150-450); RED BLOOD COUNT 4.82 10^6/uL (4.00-5.40); WHITE BLOOD COUNT 10.1 10^3/uL (4.0-10.0)
[2021-12-11 18:11] LABS: ALBUMIN 3.6 GM/DL (3.2-5.2); ALT/SGPT 42 U/L (12-78); BILIRUBIN,TOTAL 0.4 MG/DL (0.2-1.0); BLOOD UREA NITROGEN 13 MG/DL (7-18); CALCIUM LEVEL 9.1 MG/DL (8.5-10.1); CARBON DIOXIDE LEVEL 26 MEQ/L (21-32); CHLORIDE LEVEL 108 MEQ/L (98-107); CREATININE FOR GFR 0.97 MG/DL (0.55-1.30); FERRITIN 20 NG/ML (8-252); FREE T4 0.94 NG/DL (0.76-1.46); GLOMERULAR FILTRATION RATE > 60.0 (>60); GLUCOSE, FASTING 79 MG/DL (70-100); IRON (FE) 46 UG/DL (50-170); PERCENT SATURATION 11.6 % (13.2-45.0); POTASSIUM SERUM 4.2 MEQ/L (3.5-5.1); SODIUM LEVEL 138 MEQ/L (136-145); TOTAL IRON BINDING CAPACITY 396 UG/DL (250-450); TOTAL PROTEIN 7.4 GM/DL (6.4-8.2)
[2021-12-11 18:12] LABS: FOLATE 2.9 NG/ML
== END ==
LOC: M LAB 16:05
PROVIDERS: ATTEND Psychiatry & Neurology Neurology
DX: D50.9 Iron deficiency anemia, unspecified (principal)

== ENCOUNTER → 2021-12-19 | Outpatient (REF) | payer OTHER | LOC: M LAB REF 16:43 | PROVIDERS: ATTEND Internal Medicine Nephrology | DX: N18.31 Chronic kidney disease, stage 3a (principal) ==

== ENCOUNTER → 2021-12-23 | Outpatient (CLI) | payer OTHER ==
[~2021-12-23] MED LIST changes: +METHACHOLINE KIT (J7674) INH ONE
== END ==
LOC: M CARPUL 11:07
PROVIDERS: ATTEND Nurse Practitioner Adult Health
DX: R06.02 Shortness of breath (principal)
CPT/HCPCS: 94070; 95070; J7674

== ENCOUNTER 2022-01-09 08:37 | Outpatient (CLI) | payer OTHER ==
[~2022-01-09] VITALS: Ht 165.1 cm; Wt 133.6 kg
[~2022-01-09 08:37] MED LIST changes: +ALBUTEROL SULFATE 2.5 MG/0.5 ML INH NEB SOLN INH PRN; +EPINEPHrine INJ 1 MG/ML 1ML AMP IM PRN; -METHACHOLINE KIT (J7674) INH ONE; +diphenhydrAMINE 50MG/ML VIAL (J1200) IV PRN; +methylPREDNISolone 125MG 2ML VIAL IV PRN
[2022-01-09 08:45] VITALS: BP 147/87
[2022-01-09] MEDS ORDERED: NS 1,000 ML IV SCH (09:00)
[2022-01-09] MEDS ORDERED: FERRIC CARBOXYMALTOSE INJ 750 MG, VIAL MATE ADAPTER 1 EACH in NS 250 ML IV ONE (09:00)
[2022-01-09 09:30] VITALS: BP 119/68
[2022-01-09] MEDS ORDERED: ACETAMINOPHEN TAB 650MG DOSE (2X325MG) PO ONE (10:20)
[2022-01-09 11:00] VITALS: BP 139/99
== END 2022-01-09 11:00 | disposition home or self-care (01) ==
LOC: M INFU 08:37
PROVIDERS: ATTEND Internal Medicine Nephrology
DX: E61.1 Iron deficiency (principal); Z88.1 Allergy status to other antibiotic agents; Z88.2 Allergy status to sulfonamides; Z88.8 Allergy status to other drugs, medicaments and biological substances; Z91.040 Latex allergy status; Z91.89 Other specified personal risk factors, not elsewhere classified
CPT/HCPCS: 96365; J1439

== ENCOUNTER → 2022-04-08 | Outpatient (CLI) | payer OTHER ==
[~2022-04-08] MED LIST changes: +ALBU2.5V10 INH; -ALBU83IN INH; -ALBUTEROL SULFATE 2.5 MG/0.5 ML INH NEB SOLN INH PRN; -EPINEPHrine INJ 1 MG/ML 1ML AMP IM PRN; -LABE200T3 PO; +LABE200T5 PO; -diphenhydrAMINE 50MG/ML VIAL (J1200) IV PRN; -methylPREDNISolone 125MG 2ML VIAL IV PRN
== END ==
LOC: M PLALAB 11:15
PROVIDERS: ATTEND Specialist
DX: Z34.80 Encounter for supervision of other normal pregnancy, unspecified trimester (principal); Z36.89 Encounter for other specified antenatal screening; Z3A.00 Weeks of gestation of pregnancy not specified

== ENCOUNTER → 2022-06-08 | Outpatient (CLI) | payer OTHER | LOC: M WHC 11:25 | PROVIDERS: ATTEND Advanced Practice Midwife | DX: O99.342 Other mental disorders complicating pregnancy, second trimester (principal); Z3A.20 20 weeks gestation of pregnancy ==

== ENCOUNTER → 2022-07-13 | Outpatient (CLI) | payer OTHER ==
[2022-07-13 10:42] LABS: HEMOGLOBIN 10.7 g/dl (12.0-15.5); MEAN CORPUSCULAR HEMOGLOBIN 29.6 pg (27.0-33.0); MEAN CORPUSCULAR HGB CONC 32.4 g/dl (32.0-36.5); MEAN CORPUSCULAR VOLUME 91.4 fl (80.0-96.0); PLATELET COUNT, AUTOMATED 286 10^3/uL (150-450); RED BLOOD COUNT 3.61 10^6/uL (4.00-5.40); WHITE BLOOD COUNT 13.5 10^3/uL (4.0-10.0)
== END ==
LOC: M PLALAB 08:11
PROVIDERS: ATTEND Obstetrics & Gynecology
DX: O34.211 Maternal care for low transverse scar from previous cesarean delivery (principal); Z3A.00 Weeks of gestation of pregnancy not specified

== ENCOUNTER → 2022-07-24 | Outpatient (CLI) | payer OTHER | LOC: M LAB 08:15 | PROVIDERS: ATTEND Obstetrics & Gynecology | DX: O99.810 Abnormal glucose complicating pregnancy (principal); Z3A.00 Weeks of gestation of pregnancy not specified ==

== ENCOUNTER 2022-08-04 20:52 | Outpatient (CLI) | payer OTHER ==
[~2022-08-04] VITALS: Ht 165.1 cm; Wt 133.0 kg
[2022-08-04 21:27] VITALS: BP 124/62
== END 2022-08-04 21:50 | disposition home or self-care (01) ==
LOC: M LDO 20:52
PROVIDERS: ATTEND Obstetrics & Gynecology
DX: O36.8130 Decreased fetal movements, third trimester, not applicable or unspecified (principal); Z3A.28 28 weeks gestation of pregnancy

== ENCOUNTER 2022-09-14 20:47 | Outpatient (CLI) | payer OTHER ==
[~2022-09-14] VITALS: Ht 165.1 cm; Wt 134.4 kg
[2022-09-14 21:02] VITALS: BP 104/58
[2022-09-14] MEDS ORDERED: FLUO10CA18 PO (21:08)
[2022-09-14] MEDS ORDERED: OMEP10CASR PO (21:08)
[2022-09-14] MEDS ORDERED: PRENTAB9 PO (21:08)
[2022-09-14] MEDS ORDERED: ECOT81TA5 PO (21:08)
[2022-09-14] MEDS ORDERED: HOME MED LIST COMPLETE! XX SCH (21:30)
[2022-09-14 22:03] VITALS: BP 106/74
== END 2022-09-14 22:06 | disposition home or self-care (01) ==
LOC: M LDO 20:47
PROVIDERS: ATTEND Advanced Practice Midwife
DX: O36.8130 Decreased fetal movements, third trimester, not applicable or unspecified (principal); O16.3 Unspecified maternal hypertension, third trimester; O99.213 Obesity complicating pregnancy, third trimester; E66.9 Obesity, unspecified; O24.419 Gestational diabetes mellitus in pregnancy, unspecified control; O34.219 Maternal care for unspecified type scar from previous cesarean delivery; Z87.59 Personal history of other complications of pregnancy, childbirth and the puerperium; Z3A.34 34 weeks gestation of pregnancy

== ENCOUNTER 2022-09-25 21:46 | Outpatient (CLI) | payer OTHER ==
[~2022-09-25] VITALS: Ht 165.1 cm; Wt 136.3 kg
[~2022-09-25 21:46] MED LIST changes: +ALBU8.5H INH; +ARNU1INH INH; +ECOT81TA5 PO; +FLUO10CA18 PO; +LABE300T55 PO; +OMEP-173 PO; +OMEP10CASR PO; +PRENTAB9 PO
[2022-09-25] MEDS ORDERED: MELA1LIQ2 PO (22:06)
[2022-09-25 22:09] VITALS: BP 126/79
[2022-09-25] MEDS ORDERED: HOME MED LIST COMPLETE! XX SCH (22:10)
== END 2022-09-25 22:30 | disposition home or self-care (01) ==
LOC: M LDO 21:46
PROVIDERS: ATTEND Advanced Practice Midwife
DX: O36.8130 Decreased fetal movements, third trimester, not applicable or unspecified (principal); O24.013 Pre-existing type 1 diabetes mellitus, in pregnancy, third trimester; O13.3 Gestational [pregnancy-induced] hypertension without significant proteinuria, third trimester; Z3A.35 35 weeks gestation of pregnancy
CPT/HCPCS: 59025; G0463

== ENCOUNTER → 2022-09-30 | Outpatient (REF) | payer OTHER ==
[~2022-09-30] MED LIST changes: +MELA1LIQ2 PO
== END ==
LOC: M SFHCWAGY 17:10
PROVIDERS: ATTEND Specialist
DX: O10.013 Pre-existing essential hypertension complicating pregnancy, third trimester (principal); Z3A.00 Weeks of gestation of pregnancy not specified

== ENCOUNTER → 2022-10-04 | Outpatient (CLI) | payer OTHER ==
[~2022-10-04] MED LIST changes: +ACET500P3 PO; +AMOX500C PO; +IBUP80TA PO
== END ==
LOC: M LABSMTC 09:18
PROVIDERS: ATTEND Anesthesiology
DX: Z01.812 Encounter for preprocedural laboratory examination (principal); Z11.52 Encounter for screening for COVID-19

== ENCOUNTER → 2023-03-18 | Outpatient (CLI) | payer OTHER ==
[~2023-03-18] MED LIST changes: +ALBU2.5V10; +ARNU1INH; +FERR325T3 PO; +MM S100C PO; +MONT10TA97; +SEMA0.257; +SUCR1TA PO; +VENTAER INH
== END ==
LOC: M RAD 09:41
PROVIDERS: ATTEND Specialist
DX: R79.89 Other specified abnormal findings of blood chemistry (principal); R16.0 Hepatomegaly, not elsewhere classified; K76.0 Fatty (change of) liver, not elsewhere classified

== ENCOUNTER → 2023-03-29 | Outpatient (CLI) | payer OTHER ==
[~2023-03-29] MED LIST changes: -AMIT25TA17 PO; +AMIT25TA19 PO
== END ==
LOC: M PLAIMG 08:30
PROVIDERS: ATTEND Physician Assistant Medical
DX: H72.01 Central perforation of tympanic membrane, right ear (principal); H66.92 Otitis media, unspecified, left ear

== ENCOUNTER → 2023-08-13 | Outpatient (REF) | payer OTHER ==
[2023-08-13 18:25] LABS: BACTERIA, URINE AUTO NEGATIVE (NEGATIVE); MUCUS, URINE SMALL (NEGATIVE); RBC, URINE AUTO 4 /HPF (0-3); SQUAMOUS EPITHELIAL CELL UR AU 31 /HPF (0-6); WBC, URINE AUTO 77 /HPF (0-3)
[2023-08-13 18:42] LABS: TOTAL PROTEIN,RANDOM URINE 39.7 MG/DL (0.0-14.0)
[2023-08-13 18:48] LABS: CREATININE,RANDOM URINE 235.8 MG/DL
== END ==
LOC: M LAB REF 17:14
PROVIDERS: ATTEND Internal Medicine Nephrology
DX: R80.9 Proteinuria, unspecified (principal)

== ENCOUNTER 2024-02-18 07:36 | Day surgery (SDC) | payer OTHER ==
[~2024-02-18] VITALS: Ht 165.1 cm; Wt 136.3 kg
[~2024-02-18 07:36] MED LIST changes: -ALBU2.5V10; -ARNU1INH; +BUSP5TA PO; +CARV3.12 PO; +CITA40TA7 PO; +DOXY100T PO; +FERR32TA PO; +FLUO-290 PO; -FLUO10CA18 PO; +LABE300T28 PO; -LABE300T55 PO; +LANS15CA3 PO; +MELA5TAB11 PO; +METF500T13 PO; -MONT10TA97; +MONT10TA97 PO; +NORE5TAB PO
[2024-02-18] MEDS ORDERED: LR 1,000 ML IV SCH (08:00)
[2024-02-18] MEDS ORDERED: SIMV20TA22 PO (08:02)
[2024-02-18] MEDS ORDERED: ONDANSETRON 4MG 2ML VIAL As Ordered ONE (08:18)
[2024-02-18] MEDS ORDERED: LIDOCAINE 2% 100MG/5ML SDV (FOR ANES.) As Ordered ONE (08:18)
[2024-02-18] MEDS ORDERED: SUGAMMADEX SODIUM 500 MG/5 ML VIAL (BRIDION) As Ordered ONE (08:18)
[2024-02-18] MEDS ORDERED: ROCURONIUM BROMIDE 50MG/5ML VIAL As Ordered ONE (08:19)
[2024-02-18] MEDS ORDERED: propofoL 200 MG/20 ML VIAL As Ordered ONE (08:19)
[2024-02-18] MEDS ORDERED: MIDAZOLAM INJ 2MG/2ML VIAL As Ordered ONE (08:22)
[2024-02-18] MEDS ORDERED: fentaNYL 100 MCG/2 ML INJECTION As Ordered ONE (08:22)
[2024-02-18] MEDS ORDERED: ACETAMINOPHEN 1000MG 100ML IV BAG As Ordered ONE (09:05)
[2024-02-18] MEDS: LIDOCAINE W/EPINEPHRINE 1% 20ML VIAL As Ordered ONE (09:20)
[2024-02-18] MEDS ORDERED: fentaNYL 100 MCG/2 ML INJECTION IV PRN (09:45)
[2024-02-18] MEDS ORDERED: ONDANSETRON 4MG 2ML VIAL IV PRN (09:45)
[2024-02-18] MEDS ORDERED: oxyCODONE 5MG TAB PO PRN (09:45)
[2024-02-18 10:22] VITALS: BP 155/70; TEMP 97.3; O2SAT 94
== END 2024-02-18 11:40 | disposition home or self-care (01) ==
LOC: M SDC 07:36
PROVIDERS: ATTEND Dentist Oral and Maxillofacial Surgery
DX: K02.9 Dental caries, unspecified (principal); I10 Essential (primary) hypertension; K21.9 Gastro-esophageal reflux disease without esophagitis; K44.9 Diaphragmatic hernia without obstruction or gangrene; K58.8 Other irritable bowel syndrome; D64.9 Anemia, unspecified; J45.909 Unspecified asthma, uncomplicated; F43.10 Post-traumatic stress disorder, unspecified; F41.9 Anxiety disorder, unspecified; F32.A Depression, unspecified; G47.00 Insomnia, unspecified; Z79.51 Long term (current) use of inhaled steroids; Z79.84 Long term (current) use of oral hypoglycemic drugs; Z79.899 Other long term (current) drug therapy; Z88.2 Allergy status to sulfonamides; Z88.1 Allergy status to other antibiotic agents; Z91.040 Latex allergy status
CPT/HCPCS: 81025; 88300; D7210; D9223; J0131; J1100; J2250; J2405; J3010

== ENCOUNTER → 2024-04-05 | Outpatient (CLI) | payer OTHER ==
[~2024-04-05] MED LIST changes: +SIMV20TA22 PO
== END ==
LOC: M EKG 08:47
PROVIDERS: ATTEND Internal Medicine Cardiovascular Disease
DX: R00.2 Palpitations (principal); I49.40 Unspecified premature depolarization

== ENCOUNTER → 2024-04-07 | Outpatient (CLI) | payer OTHER | LOC: M PLAIMG 07:10 | PROVIDERS: ATTEND Internal Medicine Cardiovascular Disease | DX: R06.02 Shortness of breath (principal); R94.31 Abnormal electrocardiogram [ECG] [EKG]; G47.33 Obstructive sleep apnea (adult) (pediatric) ==

== ENCOUNTER → 2024-08-31 | Outpatient (CLI) | payer OTHER | LOC: M CARPUL 10:23 | PROVIDERS: ATTEND Internal Medicine Cardiovascular Disease | DX: Z01.810 Encounter for preprocedural cardiovascular examination (principal); R94.31 Abnormal electrocardiogram [ECG] [EKG]; R06.02 Shortness of breath ==

== ENCOUNTER → 2024-10-17 | Outpatient (REF) | payer OTHER ==
[2024-10-17 18:20] LABS: TOTAL PROTEIN,RANDOM URINE 27.2 MG/DL (0.0-14.0)
[2024-10-17 18:40] LABS: CREATININE,RANDOM URINE 294.1 MG/DL
== END ==
LOC: M LAB REF 17:20
PROVIDERS: ATTEND Internal Medicine Nephrology
DX: R80.9 Proteinuria, unspecified (principal)

== ENCOUNTER 2025-05-08 15:28 | Emergency (ER) | payer MEDICAID, MEDICARE, OTHER ==
[~2025-05-08] VITALS: Ht 165.1 cm; Wt 142.8 kg
[2025-05-08 17:40] LABS: KETONE, URINE AUTO RFX NEGATIVE (NEGATIVE); MUCUS, URINE RFX SMALL (NEGATIVE); NITRITE, URINE AUTO RFX NEGATIVE (NEGATIVE); RBC, URINE AUTO RFX 3 /HPF (0-3); SQUAM EPITHELIAL CELL UR AURFX 27 /HPF (0-6); WBC, URINE AUTO RFX 1 /HPF (0-3)
[2025-05-08 17:47] LABS: LEUKOCYTE ESTERASE UR AUTO RFX TRACE (NEGATIVE)
[2025-05-08] MEDS ORDERED: METF500T13 PO (18:25)
[2025-05-08] MEDS ORDERED: NALT50TA4 PO (18:27)
[2025-05-08] MEDS ORDERED: AMIT10TA11 (18:27)
[2025-05-08] MEDS ORDERED: TRAZ-252 PO (18:27)
[2025-05-08] MEDS ORDERED: BUPR75TA5 PO (18:27)
[2025-05-08 18:45] VITALS: BP 139/77; O2SAT 95
[2025-05-08 18:48] VITALS: TEMP 98.6
[2025-05-08 20:40] LABS: BASO # 0.0 10^3/uL (0.0-0.2); BASO % 0.3 % (0.0-1.0); EOS # 0.5 10^3/uL (0.0-0.5); EOS % 3.8 % (0.0-3.0); LYMPH # 2.8 10^3/uL (1.5-5.0); LYMPH % 22.7 % (24.0-44.0); MONO # 0.9 10^3/uL (0.0-0.8); MONO % 7.6 % (2.0-8.0); NEUTROPHILS # 7.9 10^3/uL (1.5-8.5); NEUTROPHILS % 65.2 % (36.0-66.0); PLATELET COUNT, AUTOMATED 400 10^3/uL (150-450)
[2025-05-08 21:01] LABS: HCG, SERUM QUALITATIVE NEGATIVE (NEGATIVE)
[2025-05-08 21:03] LABS: ALT/SGPT 44 U/L (7.0-40); AST/SGOT 56 U/L (<34); CALCIUM LEVEL 9.3 MG/DL (8.5-10.1); CARBON DIOXIDE LEVEL 21 MMOL/L (20-31); CHLORIDE LEVEL 106 MMOL/L (98-107); CREATININE FOR GFR 0.87 MG/DL (0.55-1.30); GLOMERULAR FILTRATION RATE > 90.0 (>60); POTASSIUM SERUM 5.7 MMOL/L (3.5-5.1); SODIUM LEVEL 139 MMOL/L (136-145)
[2025-05-08] MEDS ORDERED: ISOVUE-370 76% 100 ML VIAL As Ordered ONE (21:54)
[2025-05-08] MEDS ORDERED: ONDA-282 PO (23:21)
== END 2025-05-08 23:51 | disposition home or self-care (01) ==
LOC: M ED 15:28
DX: K43.9 Ventral hernia without obstruction or gangrene (principal); R16.0 Hepatomegaly, not elsewhere classified; K76.0 Fatty (change of) liver, not elsewhere classified; J45.909 Unspecified asthma, uncomplicated; F43.10 Post-traumatic stress disorder, unspecified; K58.9 Irritable bowel syndrome, unspecified; I10 Essential (primary) hypertension; Z79.52 Long term (current) use of systemic steroids; Z79.4 Long term (current) use of insulin; Z79.83 Long term (current) use of bisphosphonates; Z79.899 Other long term (current) drug therapy; Z88.1 Allergy status to other antibiotic agents; Z88.2 Allergy status to sulfonamides; Z91.040 Latex allergy status; Z91.048 Other nonmedicinal substance allergy status
CPT/HCPCS: 36415; 74177; 80053; 81001; 83605; 83690; 84703; 85025; 87086; 99284; Q9967

== ENCOUNTER 2025-06-10 19:15 | Emergency (ER) | payer OTHER ==
[~2025-06-10 19:15] MED LIST changes: +AMIT10TA11; +BUPR75TA5 PO; +NALT50TA4 PO; +ONDA-282 PO; +TRAZ-252 PO
[2025-06-10 20:39] LABS: KETONE, URINE AUTO RFX NEGATIVE (NEGATIVE); MUCUS, URINE RFX SMALL (NEGATIVE); NITRITE, URINE AUTO RFX NEGATIVE (NEGATIVE); RBC, URINE AUTO RFX 6 /HPF (0-3); SQUAM EPITHELIAL CELL UR AURFX 28 /HPF (0-6); WBC, URINE AUTO RFX 8 /HPF (0-3)
[2025-06-10 20:40] LABS: LEUKOCYTE ESTERASE UR AUTO RFX TRACE (NEGATIVE)
[2025-06-10 20:41] LABS: BASO # 0.0 10^3/uL (0.0-0.2); BASO % 0.4 % (0.0-1.0); EOS # 0.3 10^3/uL (0.0-0.5); EOS % 3.2 % (0.0-3.0); LYMPH # 2.0 10^3/uL (1.5-5.0); LYMPH % 20.5 % (24.0-44.0); MONO # 0.8 10^3/uL (0.0-0.8); MONO % 8.1 % (2.0-8.0); NEUTROPHILS # 6.6 10^3/uL (1.5-8.5); NEUTROPHILS % 67.6 % (36.0-66.0); PLATELET COUNT, AUTOMATED 437 10^3/uL (150-450)
[2025-06-10 21:04] LABS: ALT/SGPT 31 U/L (7.0-40); AST/SGOT 22 U/L (<34); CALCIUM LEVEL 10.2 MG/DL (8.5-10.1); CARBON DIOXIDE LEVEL 23 MMOL/L (20-31); CHLORIDE LEVEL 108 MMOL/L (98-107); CREATININE FOR GFR 0.93 MG/DL (0.55-1.30); GLOMERULAR FILTRATION RATE 84.3 (>60); POTASSIUM SERUM 3.9 MMOL/L (3.5-5.1); SODIUM LEVEL 144 MMOL/L (136-145)
[2025-06-10 21:06] LABS: HEPATITIS B SURFACE ANTIBODY NEGATIVE (POSITIVE)
[2025-06-10 21:11] LABS: HCG, SERUM QUALITATIVE NEGATIVE (NEGATIVE)
[2025-06-10 21:32] LABS: HIV 1&2 SCREEN NEGATIVE (NEGATIVE)
[2025-06-10 21:38] LABS: HEPATITIS C VIRUS ABY INDEX 0.04 INDEX (<0.8)
[2025-06-10] MEDS ORDERED: EMTR1TAB16 PO (22:23)
[2025-06-10] MEDS ORDERED: DOXY-442 PO (22:23)
[2025-06-10] MEDS ORDERED: RALT40TA PO (22:23)
[2025-06-10] MEDS ORDERED: EXPOSURE KIT-ADULT 7 DAY SUPPLY PO ONE (22:25)
[2025-06-11] MEDS ORDERED: RALTEGRAVIR 400 MG TAB PO SCH
[2025-06-11] MEDS: AZITHROMYCIN 250 MG TABLET PO ONE (00:01)
[2025-06-11] MEDS: RALTEGRAVIR 400 MG TAB PO ONE (00:02)
[2025-06-11] MEDS: DOXYCYCLINE HYCLATE 100 MG TABLET PO ONE (00:02)
[2025-06-11] MEDS ORDERED: ONDA-282 PO (00:21)
[2025-06-11 00:23] VITALS: BP 154/90; TEMP 98.1; O2SAT 96
[2025-06-11 01:19] LABS: Trichomonas vaginalis (AMP) NOT DETECTED (NEGATIVE)
[2025-06-11 01:42] LABS: GC DNA AMPLIFICATION NEGATIVE (NEGATIVE)
== END 2025-06-11 00:33 | disposition home or self-care (01) ==
LOC: M ED 19:15
DX: T76.21XA Adult sexual abuse, suspected, initial encounter (principal); R10.31 Right lower quadrant pain; R10.32 Left lower quadrant pain; K43.6 Other and unspecified ventral hernia with obstruction, without gangrene; F17.200 Nicotine dependence, unspecified, uncomplicated; R16.0 Hepatomegaly, not elsewhere classified; K76.0 Fatty (change of) liver, not elsewhere classified; Z79.899 Other long term (current) drug therapy; Z91.89 Other specified personal risk factors, not elsewhere classified; Z88.1 Allergy status to other antibiotic agents; Z88.2 Allergy status to sulfonamides; Z91.040 Latex allergy status

== ENCOUNTER 2025-06-28 17:06 | Emergency (ER) | payer OTHER ==
[~2025-06-28] VITALS: Ht 165.1 cm; Wt 134.1 kg
[~2025-06-28 17:06] MED LIST changes: +BUPR-363 PO; -BUPR75TA5 PO; +DOXY-442 PO; +EMTR1TAB16 PO; +RALT40TA PO
[2025-06-28 19:12] LABS: BASO # 0.1 10^3/uL (0.0-0.2); BASO % 0.5 % (0.0-1.0); EOS # 0.2 10^3/uL (0.0-0.5); EOS % 1.9 % (0.0-3.0); LYMPH # 2.2 10^3/uL (1.5-5.0); LYMPH % 19.9 % (24.0-44.0); MONO # 0.9 10^3/uL (0.0-0.8); MONO % 8.2 % (2.0-8.0); NEUTROPHILS # 7.6 10^3/uL (1.5-8.5); NEUTROPHILS % 69.3 % (36.0-66.0); PLATELET COUNT, AUTOMATED 424 10^3/uL (150-450)
[2025-06-28 19:45] LABS: ALT/SGPT 28.0 U/L (7.0-40); AST/SGOT 18.0 U/L (<34); CALCIUM LEVEL 9.6 MG/DL (8.5-10.1); CARBON DIOXIDE LEVEL 24.0 MMOL/L (20-31); CHLORIDE LEVEL 105.0 MMOL/L (98-107); CREATININE FOR GFR 0.92 MG/DL (0.55-1.30); GLOMERULAR FILTRATION RATE 85.4 (>60); POTASSIUM SERUM 4.0 MMOL/L (3.5-5.1); SODIUM LEVEL 139.0 MMOL/L (136-145)
[2025-06-28 19:45] LABS: KETONE, URINE AUTO RFX NEGATIVE (NEGATIVE); LEUKOCYTE ESTERASE UR AUTO RFX NEGATIVE (NEGATIVE); MUCUS, URINE RFX SMALL (NEGATIVE); NITRITE, URINE AUTO RFX NEGATIVE (NEGATIVE); RBC, URINE AUTO RFX 1 /HPF (0-3); SQUAM EPITHELIAL CELL UR AURFX 10 /HPF (0-6); WBC, URINE AUTO RFX 1 /HPF (0-3)
[2025-06-28] MEDS: KETOROLAC 30 MG/ML 1 ML VIAL IV ONE (20:17)
[2025-06-28 22:37] VITALS: BP 126/80; TEMP 97.4; O2SAT 99
== END 2025-06-28 22:39 | disposition home or self-care (01) ==
LOC: EDBD 17:06 → M ED 17:06
DX: R10.9 Unspecified abdominal pain (principal); I10 Essential (primary) hypertension; J45.909 Unspecified asthma, uncomplicated; F43.10 Post-traumatic stress disorder, unspecified; F32.9 Major depressive disorder, single episode, unspecified; Z79.899 Other long term (current) drug therapy; Z88.2 Allergy status to sulfonamides; Z88.1 Allergy status to other antibiotic agents; Z91.89 Other specified personal risk factors, not elsewhere classified; Z91.040 Latex allergy status
CPT/HCPCS: 80048; 80076; 81001; 83690; 85025; 96374; 99284; J1885

== ENCOUNTER 2025-07-04 21:03 | Emergency (ER) | payer OTHER ==
[~2025-07-04] VITALS: Ht 165.1 cm; Wt 151.8 kg
[2025-07-04 22:00] LABS: BASO # 0.0 10^3/uL (0.0-0.2); BASO % 0.3 % (0.0-1.0); EOS # 0.3 10^3/uL (0.0-0.5); EOS % 2.9 % (0.0-3.0); LYMPH # 2.3 10^3/uL (1.5-5.0); LYMPH % 22.8 % (24.0-44.0); MONO # 1.0 10^3/uL (0.0-0.8); MONO % 9.3 % (2.0-8.0); NEUTROPHILS # 6.6 10^3/uL (1.5-8.5); NEUTROPHILS % 64.5 % (36.0-66.0); PLATELET COUNT, AUTOMATED 370 10^3/uL (150-450)
[2025-07-04 22:10] LABS: CK-MB VALUE MASS < 1.0 NG/ML (<3.6)
[2025-07-04 22:11] LABS: CALCIUM LEVEL 9.4 MG/DL (8.5-10.1); CARBON DIOXIDE LEVEL 24 MMOL/L (20-31); CHLORIDE LEVEL 105 MMOL/L (98-107); CPK CREATINE PHOSPHOKINASE 117 U/L (34-145); CREATININE FOR GFR 0.92 MG/DL (0.55-1.30); GLOMERULAR FILTRATION RATE 85.4 (>60); POTASSIUM SERUM 3.9 MMOL/L (3.5-5.1); SODIUM LEVEL 141 MMOL/L (136-145)
[2025-07-04 23:01] LABS: CK-MB VALUE MASS < 1.0 NG/ML (<3.6)
[2025-07-04 23:02] LABS: CPK CREATINE PHOSPHOKINASE 110 U/L (34-145)
[2025-07-04 23:45] VITALS: BP 114/73; TEMP 97.5; O2SAT 98
== END 2025-07-04 23:48 | disposition home or self-care (01) ==
LOC: M ED 21:03
DX: R07.89 Other chest pain (principal); I10 Essential (primary) hypertension; F41.9 Anxiety disorder, unspecified; Z79.899 Other long term (current) drug therapy; Z88.1 Allergy status to other antibiotic agents; Z88.2 Allergy status to sulfonamides; Z91.040 Latex allergy status; Z91.89 Other specified personal risk factors, not elsewhere classified

== ENCOUNTER 2025-07-14 15:59 | Emergency (ER) | payer OTHER ==
[~2025-07-14] VITALS: Ht 165.1 cm; Wt 140.8 kg
[~2025-07-14 15:59] MED LIST changes: -LABE200T5 PO; +LABE200T86 PO
[2025-07-14 20:09] LABS: BASO # 0.1 10^3/uL (0.0-0.2); BASO % 0.4 % (0.0-1.0); EOS # 0.5 10^3/uL (0.0-0.5); EOS % 3.8 % (0.0-3.0); LYMPH # 1.9 10^3/uL (1.5-5.0); LYMPH % 15.2 % (24.0-44.0); MONO # 1.0 10^3/uL (0.0-0.8); MONO % 7.8 % (2.0-8.0); NEUTROPHILS # 9.0 10^3/uL (1.5-8.5); NEUTROPHILS % 72.5 % (36.0-66.0); PLATELET COUNT, AUTOMATED 419 10^3/uL (150-450)
[2025-07-14 20:10] LABS: APPEARANCE, URINE CLOUDY (CLEAR); BACTERIA, URINE AUTO 1+ (NEGATIVE); BILIRUBIN, URINE AUTO 1+ (NEGATIVE); BLOOD, URINE BLOOD NEGATIVE (NEGATIVE); CALCIUM OXALATE CRYSTALS LARGE; GLUCOSE, URINE (UA) AUTO NEGATIVE (NEGATIVE); KETONE, URINE AUTO NEGATIVE (NEGATIVE); LEUKOCYTE ESTERASE, URINE AUTO 1+ (NEGATIVE); MUCUS, URINE MODERATE (NEGATIVE); NITRITE, URINE AUTO NEGATIVE (NEGATIVE); PROTEIN, URINE AUTO 1+ mg/dL (NEGATIVE); RBC, URINE AUTO 10 /HPF (0-3); SPECIFIC GRAVITY URINE AUTO 1.034 (1.002-1.035); SQUAMOUS EPITHELIAL CELL UR AU 34 /HPF (0-6); UROBILINOGEN, URINE AUTO 0.2 mg/dL (0.0-2.0); WBC, URINE AUTO 15 /HPF (0-3)
[2025-07-14] MEDS: ACETAMINOPHEN *IV* 1,000 MG in IV 1 EA IV ONE (20:14)
[2025-07-14] MEDS: NS (Normal Saline) 0.9% 1,000 ML IV ONE (20:15)
[2025-07-14 20:37] LABS: CALCIUM LEVEL 9.2 MG/DL (8.5-10.1); CARBON DIOXIDE LEVEL 23 MMOL/L (20-31); CHLORIDE LEVEL 107 MMOL/L (98-107); CREATININE FOR GFR 0.88 MG/DL (0.55-1.30); GLOMERULAR FILTRATION RATE > 90.0 (>60); POTASSIUM SERUM 4.2 MMOL/L (3.5-5.1); SODIUM LEVEL 143 MMOL/L (136-145)
[2025-07-14] MEDS ORDERED: NITR-67 PO (22:24)
[2025-07-14] MEDS: NITROFURANTOIN 100 MG CAP PO ONE (22:36)
[2025-07-14 22:42] VITALS: BP 138/82; TEMP 99; O2SAT 98
== END 2025-07-14 22:53 | disposition home or self-care (01) ==
LOC: M ED 15:59 → EDBD 15:59 → M ED 22:53
DX: N39.0 Urinary tract infection, site not specified (principal); E66.9 Obesity, unspecified; I10 Essential (primary) hypertension; J45.909 Unspecified asthma, uncomplicated; F41.9 Anxiety disorder, unspecified; F32.A Depression, unspecified; G47.33 Obstructive sleep apnea (adult) (pediatric); K58.9 Irritable bowel syndrome, unspecified; F43.10 Post-traumatic stress disorder, unspecified; Z87.448 Personal history of other diseases of urinary system; Z79.899 Other long term (current) drug therapy; Z88.2 Allergy status to sulfonamides; Z88.1 Allergy status to other antibiotic agents; Z91.89 Other specified personal risk factors, not elsewhere classified; Z91.040 Latex allergy status
CPT/HCPCS: 80048; 81001; 83605; 85025; 96365; 99284; J0134

== ENCOUNTER 2025-07-24 12:13 | Emergency (ER) | payer OTHER ==
[~2025-07-24] VITALS: Ht 165.1 cm; Wt 135.0 kg
[~2025-07-24 12:13] MED LIST changes: +NITR-67 PO
[2025-07-24] MEDS ORDERED: METF10004 PO (13:41)
[2025-07-24] MEDS ORDERED: SUCR1TAB56 PO (13:44)
[2025-07-24] MEDS ORDERED: FAMO40TA3 PO (13:44)
[2025-07-24] MEDS ORDERED: BUPR150T12 PO (13:44)
[2025-07-24] MEDS ORDERED: DROS4TAB PO (13:44)
[2025-07-24] MEDS ORDERED: HOME MED LIST COMPLETE! XX SCH (13:45)
[2025-07-24 14:40] LABS: BASO # 0.0 10^3/uL (0.0-0.2); BASO % 0.2 % (0.0-1.0); EOS # 0.4 10^3/uL (0.0-0.5); EOS % 1.9 % (0.0-3.0); LYMPH # 1.2 10^3/uL (1.5-5.0); LYMPH % 6.3 % (24.0-44.0); MONO # 1.0 10^3/uL (0.0-0.8); MONO % 5.3 % (2.0-8.0); NEUTROPHILS # 16.4 10^3/uL (1.5-8.5); NEUTROPHILS % 85.8 % (36.0-66.0); PLATELET COUNT, AUTOMATED 379 10^3/uL (150-450)
[2025-07-24 15:09] LABS: ALT/SGPT 27 U/L (7.0-40); AST/SGOT 16 U/L (<34); CALCIUM LEVEL 9.1 MG/DL (8.5-10.1); CARBON DIOXIDE LEVEL 25 MMOL/L (20-31); CHLORIDE LEVEL 106 MMOL/L (98-107); CREATININE FOR GFR 0.85 MG/DL (0.55-1.30); GLOMERULAR FILTRATION RATE > 90.0 (>60); POTASSIUM SERUM 4.0 MMOL/L (3.5-5.1); SODIUM LEVEL 142 MMOL/L (136-145)
[2025-07-24] MEDS ORDERED: ISOVUE-370 76% 100 ML VIAL As Ordered ONE (15:48)
[2025-07-24 16:16] LABS: MONO SCRN NEGATIVE (NEGATIVE)
[2025-07-24] MEDS: NS (Normal Saline) 0.9% 1,000 ML IV ONE (16:27)
[2025-07-24] MEDS ORDERED: CLEO300C2 PO (16:55)
[2025-07-24] MEDS: CLINDAMYCIN 150 MG CAPSULE PO ONE (17:10)
[2025-07-24 18:27] LABS: AMORPHOUS SEDIMENT LARGE (NEGATIVE); APPEARANCE, URINE TURBID (CLEAR); BACTERIA, URINE AUTO NEGATIVE (NEGATIVE); BILIRUBIN, URINE AUTO NEGATIVE (NEGATIVE); BLOOD, URINE BLOOD NEGATIVE (NEGATIVE); CALCIUM OXALATE CRYSTALS SMALL; GLUCOSE, URINE (UA) AUTO NEGATIVE (NEGATIVE); KETONE, URINE AUTO NEGATIVE (NEGATIVE); LEUKOCYTE ESTERASE, URINE AUTO NEGATIVE (NEGATIVE); NITRITE, URINE AUTO NEGATIVE (NEGATIVE); PROTEIN, URINE AUTO 2+ mg/dL (NEGATIVE); RBC, URINE AUTO 13 /HPF (0-3); SPECIFIC GRAVITY URINE AUTO 1.027 (1.002-1.035); SQUAMOUS EPITHELIAL CELL UR AU 6 /HPF (0-6); UROBILINOGEN, URINE AUTO 0.2 mg/dL (0.0-2.0); WBC, URINE AUTO 0 /HPF (0-3)
[2025-07-24 21:17] VITALS: BP 151/89; TEMP 98.9; O2SAT 98
== END 2025-07-24 22:18 | disposition short-term general hospital (02) ==
LOC: EDBD 12:13 → M ED 12:13
DX: K65.1 Peritoneal abscess (principal); J02.0 Streptococcal pharyngitis; Z87.440 Personal history of urinary (tract) infections; Z79.899 Other long term (current) drug therapy; Z88.1 Allergy status to other antibiotic agents; Z88.2 Allergy status to sulfonamides; Z91.89 Other specified personal risk factors, not elsewhere classified; Z91.040 Latex allergy status
CPT/HCPCS: 74021; 74177; 80053; 81001; 83605; 85025; 86308; 87040; 87086; 87486; 87581; 87633; 87798; 87880; 96360; 96361; 99285; Q9967

== ENCOUNTER 2025-08-14 19:12 | Emergency (ER) | payer OTHER ==
[~2025-08-14] VITALS: Ht 165.1 cm; Wt 132.4 kg
[~2025-08-14 19:12] MED LIST changes: +BUPR150T12 PO; +CLEO300C2 PO; +DROS4TAB PO; +FAMO40TA3 PO; +METF10004 PO
[2025-08-14 21:53] VITALS: BP 137/89; TEMP 97.7; O2SAT 97
[2025-08-14 23:00] LABS: BASO # 0.1 10^3/uL (0.0-0.2); BASO % 0.5 % (0.0-1.0); EOS # 0.3 10^3/uL (0.0-0.5); EOS % 3.1 % (0.0-3.0); LYMPH # 2.0 10^3/uL (1.5-5.0); LYMPH % 20.4 % (24.0-44.0); MONO # 0.6 10^3/uL (0.0-0.8); MONO % 6.1 % (2.0-8.0); NEUTROPHILS # 6.8 10^3/uL (1.5-8.5); NEUTROPHILS % 69.6 % (36.0-66.0); PLATELET COUNT, AUTOMATED 425 10^3/uL (150-450)
[2025-08-14 23:29] LABS: CALCIUM LEVEL 10.0 MG/DL (8.5-10.1); CARBON DIOXIDE LEVEL 24 MMOL/L (20-31); CHLORIDE LEVEL 104 MMOL/L (98-107); CREATININE FOR GFR 0.92 MG/DL (0.55-1.30); GLOMERULAR FILTRATION RATE 85.4 (>60); POTASSIUM SERUM 4.0 MMOL/L (3.5-5.1); SODIUM LEVEL 140 MMOL/L (136-145)
[2025-08-14 23:30] LABS: CK-MB VALUE MASS < 1.0 NG/ML (<3.6)
[2025-08-14 23:31] LABS: CPK CREATINE PHOSPHOKINASE 106 U/L (34-145)
[2025-08-14 23:54] LABS: HCG, SERUM QUALITATIVE NEGATIVE (NEGATIVE)
== END 2025-08-14 23:38 | disposition left against medical advice (07) ==
LOC: M ED 19:12
DX: Z53.21 Procedure and treatment not carried out due to patient leaving prior to being seen by health care provider (principal)